=== PATIENT | male | born 1975 | race Caucasian/White ===

== ENCOUNTER 2024-12-23 20:58 | Inpatient (IN) | payer OTHER, SELFPAY ==
[2024-12-23 22:34] VITALS: BP 105/64; PULSE 91; RESP 18; TEMP 36.4; O2SAT 97
--- NOTE | 2024-12-24 00:24 | PC.ADMIT ---
Patient is a direct admit from [facility] for SI with a hx of MDD. He presents disheveled and malodorous. He is calm and cooperative with admission. He is delayed in answering questions and stares straight ahead while thinking. Skin check performed, no contraband, his skin is intact with PVD. He reports living at [facility] since 2021. He reports feeling kind of safe there and spends his days trying to sleep. He states he has taken the bus before but not in a while. He reports being homeless since 2008. He is currently unemployed and has not worked in years. His last job was at the [employer] in 2019. He reports not having any family or friends he speaks too. His father lives in [facility] and he hasnt spoken to him in years. There is no event that brought on his feeling of suicide, his thoughts have just been getting worse. He has a hx of SI and has taken drain-o in the past. He states he does not currently have a plan. His last IPLOC was at [facility] in October where he spent one month for SI. That was also the last time he took any medications. He is open to this experience and states he is willing to go to groups and take prescribed medications. He reports a history of medical and physical restraints but is vague and states that it was a long time ago. He is safe on unit, signed a CV and is on 15 minute checks.
[2024-12-24 08:00] VITALS: BP 97/65; PULSE 80; TEMP 36.3; O2SAT 99
[2024-12-24 08:12] LABS: Estimated Average Glucose 94 mg/dL; Hemoglobin A1C 126.5658 umol/L; Hemoglobin A1c % 4.9 % (<6.0); Total Hemoglobin (HGBA1C) 4288.0963 umol/L
[2024-12-24 08:23] LABS: Cholesterol 234 mg/dL (<200); HDL Cholesterol 41 mg/dL (>40); LDL Cholesterol Calculated 166 mg/dL (<100); Triglycerides 138 mg/dL (<150)
[2024-12-24 08:40] LABS: Free T4 (Free Thyroxine) 1.06 ng/dL (0.71-1.85); Thyroid Stimulating Hormone 2.76 uIU/mL (0.32-4.0)
[2024-12-24 08:52] LABS: Folate 2.5 ng/mL (> or = 4.0); Vitamin B12 571 pg/mL (200-900)
--- NOTE | 2024-12-24 09:27 | P.HPPS_ITS ---
HPI Date of Service: 12/24/24 Chief Complaint: Bipolar II disorder,Current episode Depressed Sources of Information: patient interviewed, chart reviewed and crisis/core team assessment reviewed HPI Subjective Notes: Mathis Warning and Conditional Voluntary Healthcare Proxy: No Guardianship: No Medical Problems Affecting Mental Status: No Narrative: Patient found lying supine on his bed. He notes that he has been experiencing nausea since after he had breakfast this morning and therefore does not want to engaged in a full interview and wants to rest until tomorrow. He denies abdominal pain or bowel changes. He denies hypomania or leti episodes. He denies SI/HI/AVH. He plans to attend groups today. He notes that he was on Latuda 120 mg daily and oxcarbazepine 300 mg daily until he was discharged at [facility] in October 2024. He notes that he stopped taking the medications without a reason. Reports history of anxiety, depression, and bipolar disorder. He denies alcohol or drug use. Below his collateral from nursing admission: Patient is a direct admit from [facility] for SI with a hx of MDD. He presents disheveled and malodorous. He is calm and cooperative with admission. He is delayed in answering questions and stares straight ahead while thinking. Skin check performed, no contraband, his skin is intact with PVD. He reports living at [facility] since 2021. He reports feeling kind of safe there and spends his days trying to sleep. He states he has taken the bus before but not in a while. He reports being homeless since 2008. He is currently unemployed and has not worked in years. His last job was at the [employer] in 2019. He reports not having any family or friends he speaks too. His father lives in [facility] and he hasnt spoken to him in years. There is no event that brought on his feeling of suicide, his thoughts have just been getting worse. He has a hx of SI and has taken drain-o in the past. He states he does not currently have a plan. His last IPLOC was at [facility] in October where he spent one month for SI. That was also the last time he took any medications. He is open to this experience and states he is willing to go to groups and take prescribed medications. He reports a history of medical and physical restraints but is vague and states that it was a long time ago. He is safe on unit, signed a CV and is on 15 minute checks. Patient seen at 11:00 on 12/24/2024. Past Psychiatric History: History of anxiety, depression, and bipolar Discharged from [facility] in October 2024 Was on Latuda 120 mg daily and oxcarbazepine 300 mg daily upon discharge at [facility] Medical Evaluation Reviewed: Yes [facility] Medical History (Updated 12/24/24 @ 13:11 by Varinder Anderson CNP) Obesity LUIS (obstructive sleep apnea) HLD (hyperlipidemia) HTN (hypertension) CVA (cerebral vascular accident) Substance History: Denies alcohol or drug use Diagnostics Vital Signs (24Hr): Vital Signs - 24 hr 12/23/24 22:34 Temperature 97.6 F Pulse Rate 91 Respiratory Rate 18 Blood Pressure 105/64 Pulse Oximetry 97 Labs 12/24/24 13:48 Labs: Laboratory Results - last 48 hr 12/24/24 07:54 Estimat Average Glucose 94 Hemoglobin A1c % 4.9 Triglycerides 138 Cholesterol 234 H LDL Cholesterol, Calc 166 H HDL Cholesterol 41 Vitamin B12 571 Folate 2.5 L TSH 2.76 Free T4 1.06 Meds/Allergies Allergies Allergies Allergy/AdvReac Type Severity Reaction Status Date / Time pumpkin Allergy Unknown Unknown Verified 12/24/24 12:26 Mental Status Exam Mental Status Exam Narrative: Mental Status Exam Narrative: Appearance: Casually dressed in hospital gown, hair is disheveled Behavior: Calm and cooperative throughout the brief interview. Eye contact is appropriate, and there are no signs of psychomotor agitation; however, there signs of psychomotor retardation due to sluggish thinking and speech Speech: Sluggish Thought process logical Thought content: No self-harming thoughts Mood: Depressed Affect: Blunted, mood congruent SI:denies HI:denies VH/AH:none Delusions: None Insight/judgment: Fair insight and judgment Memory/cog: Alert, oriented x 4. grossly intact to conversational testing Assessment & Plan Assessment & Plan (1) Bipolar disorder: Status: Acute Code(s): F31.9 - Bipolar disorder, unspecified (2) Nausea: Status: Acute Code(s): R11.0 - Nausea Plan Patient found lying supine on his bed. He notes that he has been experiencing nausea since after he had breakfast this morning and therefore does not want to engaged in a full interview and wants to rest until tomorrow. He denies abdominal pain or bowel changes. He denies hypomania or leti episodes. He denies SI/HI/AVH. He plans to attend groups later today. He notes that he was on Latuda 120 mg daily and oxcarbazepine 300 mg daily until he was discharged at [facility] in October 2024. He notes that he stopped taking the medications without a reason. Reports history of anxiety, depression, and bipolar disorder. He denies alcohol or drug use. Below his collateral from nursing admission: Patient is a direct admit from [facility] for SI with a hx of MDD. He presents disheveled and malodorous. He is calm and cooperative with admission. He is delayed in answering questions and stares straight ahead while thinking. Skin check performed, no contraband, his skin is intact with PVD. He reports living at [facility] since 2021. He reports feeling kind of safe there and spends his days trying to sleep. He states he has taken the bus before but not in a while. He reports being homeless since 2008. He is currently unemployed and has not worked in years. His last job was at the [employer] in 2019. He reports not having any family or friends he speaks too. His father lives in [facility] and he hasnt spoken to him in years. There is no event that brought on his feeling of suicide, his thoughts have just been getting worse. He has a hx of SI and has taken drain-o in the past. He states he does not currently have a plan. His last IPLOC was at [facility] in October where he spent one month for SI. That was also the last time he took any medications. He is open to this experience and states he is willing to go to groups and take prescribed medications. He reports a history of medical and physical restraints but is vague and states that it was a long time ago. He is safe on unit, signed a CV and is on 15 minute checks. Formulation/Clinical reasoning: Patient's SI is likely related to severe depressive symptoms from untreated bipolar disorder. Psychomotor retardation due to sluggish thinking and speech also account for the patient's depressive state. He denies hypomania or leti symptoms. He stopped taking Latuda and oxcarbazepine in October 2024 with no apparent reason. Will start Latuda the 20 mg daily to target bipolar symptoms. Admit to M5. CV 15 minutes check. Diagnostics as needed. Collateral contact. Continue remainder of regime. Encouraged full milieu. Discharge planning. Latuda 20 mg daily ordered for bipolar symptoms and Zofran ordered for nausea; advised to take as prescribed. Instructed on the risks, benefits, and potential adverse reactions of the medication. Verbalized understanding and agreed with the plan. Patient educated on: diagnosis, medication risk/benefits and therapeutic strategies Reason for continued inpatient stay Substantial Risk for: rapid decompensation Statement Statement: I have reviewed the history and physical and performed a pertinent examination on my patient. No changes have occurred unless specified. If the History and Physical was not performed prior to admission, the Hospitalist's service will be consulted for completing the admission physical. Time Spent With Patient Time: Total time managing care of this patient today ____ minutes.
--- NOTE | 2024-12-24 11:28 | PM.IMHP ---
History of Present Illness Date of Service: 12/24/24 Attending physician on admission: Sal Veras Chief Complaint: Medical H&P 49 year old male with PMH of Bipolar DO, MDD, Dysthymia, unspecified psychotic disorder, generalized anxiety disorder and history of suicide ideation with prior attempts. He has also had multiple prior inpatient hospitalization. 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 He reports a history of gastric sleeve surgery. He currently resides at [facility], followed by friends with homeless. Who reported that he was not eating for 3 days worsening depression and suicidal ideation without a plan. In the ED his renal function was normal, TSH was normal. He had a abnormal urine, was prescribed Keflex 500 3 times a day for a UTI. It was medically cleared for admission. On exam he has no physical complaints or concerns. He denies any dysuria. Seen lying in bed alert and cooperative with exam. Review of Systems Review of Systems: Denies any shortness of breath, chest pain, dizziness, lightheadedness, abdominal pain or discomfort, nausea vomiting or diarrhea. Denies dysuria. [facility] Medical History (Updated 12/24/24 @ 12:12 by Lucía Casas DNP) Obesity LUIS (obstructive sleep apnea) HLD (hyperlipidemia) HTN (hypertension) CVA (cerebral vascular accident) Social History Household Members: None and Other Household Members Other:: homeless usp Housing: Homeless Do you presently have visiting nurse or other home services: No Patient Tobacco Use Status: Never used Tobacco Smoked in Last 30 Days: No Patient Interested in Nicotine Replacement: No Patient Given Instructions on How to Stop Smoking: No Second Hand Smoke Exposure: Yes Currently Displaying Signs/Symptoms of Drug Intoxication Withdrawal: No Have you been hit, kicked, punched, or otherwise hurt by someone within the past year? If so, by whom?: No Do you feel safe in your current relationship?: No Current Relationship Is there a partner from a previous relationship who is making you feel unsafe now?: No Are you made to feel afraid or neglected: No Advance Directives: No Advance Directives Information Provided: Yes Do you have thoughts of harming others: None Do you have a plan to hurt others: No Plan Recently lost weight without trying: No Eating poorly because of decreased appetite: No Nutrition Risks: No Nutritional Risk Poor oral hygiene: No Meds Allergies Allergy/AdvReac Type Severity Reaction Status Date / Time pumpkin Allergy Unknown Unknown Verified 12/24/24 12:26 Active Medications: Current Medications Acetaminophen (Acetaminophen 325 Mg Tablet) 650 mg PO Q6H PRN PRN Reason: Headache/Pain, Scale 1-10 Al Hydroxide/Mg Hydroxide (Magnesium Hydrox/Alum Hydrox 30 Ml Oral.Susp) 30 ml PO Q6H PRN PRN Reason: Heartburn/Nausea Hydroxyzine HCl (Hydroxyzine Hcl 25 Mg Tablet) 25 mg PO Q6H PRN PRN Reason: mild anxiety Magnesium Hydroxide (Milk Of Magnesia 30 Ml Oral.Susp) 30 ml PO DAILY PRN PRN Reason: Constipation Nicotine Polacrilex (Nicotine Polacrilex 2 Mg Gum) 4 mg BUCCAL Q2H PRN PRN Reason: Nicotine Cravings Trazodone HCl (Trazodone Hcl 50 Mg Tablet) 50 mg PO BEDTIME MRX1 PRN PRN Reason: Insomnia Physical Exam Vital Signs and Narrative: Vital Signs: Last Vital Signs Temp 97.3 F 12/24/24 08:00 Pulse 80 12/24/24 08:00 Resp 18 12/23/24 22:34 BP 97/65 12/24/24 08:00 Pulse Ox 99 12/24/24 08:00 O2 Del Method Room Air 12/24/24 08:00 Alert and oriented X3, able to give good history. Neuro: CN II-X11 intact, no deficits, visual acuity intact. EYES: PERRLA, EOM intact ENT: hearing intact, lips moist Cardiac: S1 S2 RRR, no edema in Lower ext Pulmonary: lungs clear to auscultation, No increased WOB. Abdominal: BS active in all 4 quadrants, no guarding, tenderness, rebounding, + obese abdomen. MSK: Strength 5/5 upper and lower extremities. Moves all extremities. : no CVA tenderness no bladder distension Extremities: no edema in lower extremities Psych: Calm and cooperative. Eye contact is appropriate, and there is no evidence of neurological comprimise. Skin: Warm and dry, Intact Results Labs Labs: Laboratory Results - last 24 hr 12/24/24 07:54 Estimat Average Glucose 94 Hemoglobin A1c % 4.9 Triglycerides 138 Cholesterol 234 H LDL Cholesterol, Calc 166 H HDL Cholesterol 41 Vitamin B12 571 Folate 2.5 L TSH 2.76 Free T4 1.06 Assessment and Plan (1) UTI (urinary tract infection): Status: Acute Plan Bipolar DO/MDD/Dysthymia/unspecified psychotic disorder/ELISABETH and history of suicide ideation with prior attempts Treatment per psychiatric team. UTI Diagnosed at [facility]-DC on Keflex 500 mgs TID for 5 days Encourage fluid intake. HLD/HTN/History of CVA/LUIS Last seen by Neurology in 09/2022-Unremarkable MRI from 10/26/2022 Recommend aspirin 81 mg daily as well as atorvastatin 20 mgs per previous neurology record from 09/2022 BP is stable 97/65 Quality Stroke Does the patient have a stroke diagnosis?: Yes Reason for No Anti-thrombotic by Day Two: N/A - Med Ordered VTE Prior VTE?: No VTE Risk Level:: Medical - low VTE Device Contraindication: Treatment Not Indicated VTE Drug Contraindication: N/A - Med Ordered
[2024-12-24] MEDS: Ondansetron ODT 4 MG TAB.RAPDIS TRANSLINGU (12:05)
[2024-12-24] MEDS: cephALEXin 500 MG CAPSULE PO ×2 (12:38→21:12)
[2024-12-24 14:11] LABS: Estimated Glomerular Filt Rate 51
[2024-12-24 20:00] VITALS: BP 135/70; PULSE 80; RESP 16; TEMP 36.3; O2SAT 100
[2024-12-24] MEDS: Lurasidone HCl 20 MG TABLET PO (21:13)
[2024-12-24] MEDS: Atorvastatin Calcium 20 MG TABLET PO (21:13)
[2024-12-25] MEDS: cephALEXin 500 MG CAPSULE PO ×3 (05:36→20:20)
[2024-12-25 08:00] VITALS: BP 115/81; PULSE 75; TEMP 36.4; O2SAT 97
[2024-12-25] MEDS: Aspirin Enteric Coated 81 MG TABLET.DR PO (09:07)
[2024-12-25] MEDS: Folic Acid 1 MG TABLET PO (09:07)
--- NOTE | 2024-12-25 09:58 | P.PNPSI_ITS ---
Subjective Subjective Date of Service: 12/25/24 Reason For Visit: Bipolar II disorder,Current episode Depressed Interim History: Kamar is awake, alert and in bed. His primary nurse reports he has poverty of thought when she was talking with him. Pt answers direct questions, he does not initiate discussion. He has good eye contact and reports no symptoms of concern currently. Medication Compliance: Yes Side effects from medications: No Attending Groups: No Review of Systems Acute medical concerns: No Medical Review of Systems: unchanged Review of Systems Review of Systems Denies Mental Status Exam Mental Status Exam Patient Appearance: Fatigued Patient Orientation: Person, Place, Time and Situation Level of Consciousness: Alert Patient Behavior: Appropriate, Guarded, Cooperative, Distractible and Good Eye Contact Mood Description: Withdrawn Affect Description: Withdrawn Patient Cognition Impaired: No Ability to Follow Directions: Fair Speech Pattern: Spontaneous Speech Memory Description: Intact Hallucinations: None Delusions: Not Present Thought Process: Distracted and Rumination Thought Content: positive for Circumstantial and positive for Perseveration Depressive Symptoms: Increased Fatigue and Loss of Energy Judgement: Fair Diagnostics Vital Signs (24Hr): Vital Signs - 24 hr 12/24/24 20:00 12/25/24 08:00 Temperature 97.3 F 97.6 F Pulse Rate 80 75 Respiratory Rate 16 Blood Pressure 135/70 115/81 Pulse Oximetry 100 97 Oxygen Delivery Method Room Air Room Air Labs 12/24/24 13:48 Labs: Laboratory Results - last 48 hr 12/24/24 12/24/24 07:54 13:48 Creatinine 1.48 H Estim Creat Clear Calc TNP Estimated GFR 51 Estimat Average Glucose 94 Hemoglobin A1c % 4.9 Triglycerides 138 Cholesterol 234 H LDL Cholesterol, Calc 166 H HDL Cholesterol 41 Vitamin B12 571 Folate 2.5 L TSH 2.76 Free T4 1.06 Medications Medications Current Medications Acetaminophen (Acetaminophen 325 Mg Tablet) 650 mg PO Q6H PRN PRN Reason: Headache/Pain, Scale 1-10 Al Hydroxide/Mg Hydroxide (Magnesium Hydrox/Alum Hydrox 30 Ml Oral.Susp) 30 ml PO Q6H PRN PRN Reason: Heartburn/Nausea Aspirin (Aspirin Enteric Coated 81 Mg Tablet.Dr) 81 mg PO DAILY [facility] Last Admin: 12/25/24 09:07 Dose: 81 mg Atorvastatin Calcium (Atorvastatin Calcium 20 Mg Tablet) 20 mg PO BEDTIME JENNIFER Last Admin: 12/24/24 21:13 Dose: 20 mg Cephalexin HCl (Cephalexin 500 Mg Capsule) 500 mg PO Q8H [facility] Stop: 12/29/24 12:14 Last Admin: 12/25/24 05:36 Dose: 500 mg Folic Acid (Folic Acid 1 Mg Tablet) 1 mg PO DAILY [facility] Last Admin: 12/25/24 09:07 Dose: 1 mg Hydroxyzine HCl (Hydroxyzine Hcl 25 Mg Tablet) 25 mg PO Q6H PRN PRN Reason: mild anxiety Lurasidone HCl (Lurasidone Hcl 20 Mg Tablet) 20 mg PO BEDTIME [facility] Last Admin: 12/24/24 21:13 Dose: 20 mg Magnesium Hydroxide (Milk Of Magnesia 30 Ml Oral.Susp) 30 ml PO DAILY PRN PRN Reason: Constipation Nicotine Polacrilex (Nicotine Polacrilex 2 Mg Gum) 4 mg BUCCAL Q2H PRN PRN Reason: Nicotine Cravings Ondansetron HCl (Ondansetron Odt 4 Mg Tab.Rapdis) 4 mg TRANSLINGU Q8H PRN PRN Reason: Nausea and Vomiting Stop: 12/28/24 23:59 Last Admin: 12/24/24 12:05 Dose: 4 mg Trazodone HCl (Trazodone Hcl 50 Mg Tablet) 50 mg PO BEDTIME MRX1 PRN PRN Reason: Insomnia Allergies Allergies Allergy/AdvReac Type Severity Reaction Status Date / Time pumpkin Allergy Unknown Unknown Verified 12/24/24 12:26 Assessment & Plan Assessment & Plan (1) Bipolar disorder: Status: Acute Code(s): F31.9 - Bipolar disorder, unspecified (2) Nausea: Status: Acute Code(s): R11.0 - Nausea Plan Patient found lying supine on his bed. He notes that he has been experiencing nausea since after he had breakfast this morning and therefore does not want to engaged in a full interview and wants to rest until tomorrow. He denies abdominal pain or bowel changes. He denies hypomania or leti episodes. He denies SI/HI/AVH. He plans to attend groups later today. He notes that he was on Latuda 120 mg daily and oxcarbazepine 300 mg daily until he was discharged at [facility] in October 2024. He notes that he stopped taking the medications without a reason. Reports history of anxiety, depression, and bipolar disorder. He denies alcohol or drug use. Below his collateral from nursing admission: Patient is a direct admit from [facility] for SI with a hx of MDD. He presents disheveled and malodorous. He is calm and cooperative with admission. He is delayed in answering questions and stares straight ahead while thinking. Skin check performed, no contraband, his skin is intact with PVD. He reports living at [facility] since 2021. He reports feeling kind of safe there and spends his days trying to sleep. He states he has taken the bus before but not in a while. He reports being homeless since 2008. He is currently unemployed and has not worked in years. His last job was at the [employer] in 2019. He reports not having any family or friends he speaks too. His father lives in [facility] and he hasnt spoken to him in years. There is no event that brought on his feeling of suicide, his thoughts have just been getting worse. He has a hx of SI and has taken drain-o in the past. He states he does not currently have a plan. His last IPLOC was at [facility] in October where he spent one month for SI. That was also the last time he took any medications. He is open to this experience and states he is willing to go to groups and take prescribed medications. He reports a history of medical and physical restraints but is vague and states that it was a long time ago. He is safe on unit, signed a CV and is on 15 minute checks. Formulation/Clinical reasoning: Patient's SI is likely related to severe depressive symptoms from untreated bipolar disorder. Psychomotor retardation due to sluggish thinking and speech also account for the patient's depressive state. He denies hypomania or leti symptoms. He stopped taking Latuda and oxcarbazepine in October 2024 with no apparent reason. Will start Latuda the 20 mg daily to target bipolar symptoms. Admit to M5. CV 15 minutes check. Diagnostics as needed. Collateral contact. Continue remainder of regime. Encouraged full milieu. Discharge planning. Latuda 20 mg daily ordered for bipolar symptoms and Zofran ordered for nausea; advised to take as prescribed. Instructed on the risks, benefits, and potential adverse reactions of the medication. Verbalized understanding and agreed with the plan. 12/25: Continue tx. Reason for continued inpatient stay Substantial Risk for: rapid decompensation Time Spent With Patient Time: Total time managing care of this patient today ____ minutes.
[2024-12-25 20:00] VITALS: BP 110/69; PULSE 71; RESP 16; TEMP 37.1; O2SAT 96
[2024-12-25] MEDS: Atorvastatin Calcium 20 MG TABLET PO (20:20)
[2024-12-25] MEDS: Lurasidone HCl 20 MG TABLET PO (20:20)
[2024-12-26] MEDS: cephALEXin 500 MG CAPSULE PO ×3 (05:20→20:44)
[2024-12-26 08:00] VITALS: BP 115/77; PULSE 80; TEMP 36.4; O2SAT 97
[2024-12-26] MEDS: Folic Acid 1 MG TABLET PO (09:07)
[2024-12-26] MEDS: Aspirin Enteric Coated 81 MG TABLET.DR PO (09:07)
--- NOTE | 2024-12-26 14:39 | HO.PSYCHPN ---
Subjective Subjective Date of Service: 12/26/24 Reason For Visit: Bipolar II disorder,Current episode Depressed Interim History: Met with patient; discussed with team Patient remains isolative, staying in bed and keeping himself most of the time. Patient has flat affect; says he has no emotions and does not feel much good or bad; denies depression but clearly depressed Mental Status Exam Mental Status Exam Narrative: Pt is alert and oriented; behavior is isolative, lying in bed; willing to engage and polite on approach, but otherwise appears amotivational; patient is not in distress; dressed in hospital attire, unkempt; mood is described as all right and affect blunted; eye contact appropriate; Speech is a little monotone; normal rate and volume; significant psychomotor retardation present; thought process is organized and goal directed; Thought content vacuous? Does not disclose much; no paranoid ideations expressed; denies any SI/HI. Denies AVH; does not look particularly internally preoccupied. Patients insight and judgment impaired. Diagnostics Vital Signs (24Hr): Vital Signs - 24 hr 12/25/24 20:00 12/26/24 08:00 Temperature 98.7 F 97.5 F Pulse Rate 71 80 Respiratory Rate 16 Blood Pressure 110/69 115/77 Pulse Oximetry 96 97 Oxygen Delivery Method Room Air Room Air Labs 12/24/24 13:48 Medications Medications Current Medications Acetaminophen (Acetaminophen 325 Mg Tablet) 650 mg PO Q6H PRN PRN Reason: Headache/Pain, Scale 1-10 Al Hydroxide/Mg Hydroxide (Magnesium Hydrox/Alum Hydrox 30 Ml Oral.Susp) 30 ml PO Q6H PRN PRN Reason: Heartburn/Nausea Aspirin (Aspirin Enteric Coated 81 Mg Tablet.) 81 mg PO DAILY COUNT INCLUDES THE [facility] Last Admin: 12/26/24 09:07 Dose: 81 mg Atorvastatin Calcium (Atorvastatin Calcium 20 Mg Tablet) 20 mg PO BEDTIME COUNT INCLUDES THE [facility] Last Admin: 12/25/24 20:20 Dose: 20 mg Cephalexin HCl (Cephalexin 500 Mg Capsule) 500 mg PO Q8H COUNT INCLUDES THE [facility] Stop: 12/29/24 12:14 Last Admin: 12/26/24 12:31 Dose: 500 mg Folic Acid (Folic Acid 1 Mg Tablet) 1 mg PO DAILY COUNT INCLUDES THE [facility] Last Admin: 12/26/24 09:07 Dose: 1 mg Hydroxyzine HCl (Hydroxyzine Hcl 25 Mg Tablet) 25 mg PO Q6H PRN PRN Reason: mild anxiety Lurasidone HCl (Lurasidone Hcl 20 Mg Tablet) 20 mg PO BEDTIME [facility] Last Admin: 12/25/24 20:20 Dose: 20 mg Magnesium Hydroxide (Milk Of Magnesia 30 Ml Oral.Susp) 30 ml PO DAILY PRN PRN Reason: Constipation Nicotine Polacrilex (Nicotine Polacrilex 2 Mg Gum) 4 mg BUCCAL Q2H PRN PRN Reason: Nicotine Cravings Ondansetron HCl (Ondansetron Odt 4 Mg Tab.Rapdis) 4 mg TRANSLINGU Q8H PRN PRN Reason: Nausea and Vomiting Stop: 12/28/24 23:59 Last Admin: 12/24/24 12:05 Dose: 4 mg Trazodone HCl (Trazodone Hcl 50 Mg Tablet) 50 mg PO BEDTIME [id number] PRN PRN Reason: Insomnia Allergies Allergies Allergy/AdvReac Type Severity Reaction Status Date / Time pumpkin Allergy Unknown Unknown Verified 12/24/24 12:26 Assessment & Plan Assessment & Plan (1) Bipolar disorder: Status: Acute Code(s): F31.9 - Bipolar disorder, unspecified (2) Nausea: Status: Acute Code(s): R11.0 - Nausea Plan Patient found lying supine on his bed. He notes that he has been experiencing nausea since after he had breakfast this morning and therefore does not want to engaged in a full interview and wants to rest until tomorrow. He denies abdominal pain or bowel changes. He denies hypomania or leti episodes. He denies SI/HI/AVH. He plans to attend groups later today. He notes that he was on Latuda 120 mg daily and oxcarbazepine 300 mg daily until he was discharged at [facility] in October 2024. He notes that he stopped taking the medications without a reason. Reports history of anxiety, depression, and bipolar disorder. He denies alcohol or drug use. Below his collateral from nursing admission: Patient is a direct admit from [facility] for SI with a hx of MDD. He presents disheveled and malodorous. He is calm and cooperative with admission. He is delayed in answering questions and stares straight ahead while thinking. Skin check performed, no contraband, his skin is intact with PVD. He reports living at [facility] since 2021. He reports feeling kind of safe there and spends his days trying to sleep. He states he has taken the bus before but not in a while. He reports being homeless since 2008. He is currently unemployed and has not worked in years. His last job was at the [employer] in 2019. He reports not having any family or friends he speaks too. His father lives in [facility] and he hasnt spoken to him in years. There is no event that brought on his feeling of suicide, his thoughts have just been getting worse. He has a hx of SI and has taken drain-o in the past. He states he does not currently have a plan. His last IPLOC was at [place] in October where he spent one month for SI. That was also the last time he took any medications. He is open to this experience and states he is willing to go to groups and take prescribed medications. He reports a history of medical and physical restraints but is vague and states that it was a long time ago. He is safe on unit, signed a CV and is on 15 minute checks. Formulation/Clinical reasoning: Patient's SI is likely related to severe depressive symptoms from untreated bipolar disorder. Psychomotor retardation due to sluggish thinking and speech also account for the patient's depressive state. He denies hypomania or leti symptoms. He stopped taking Latuda and oxcarbazepine in October 2024 with no apparent reason. Will start Latuda the 20 mg daily to target bipolar symptoms. Hospital course: Latuda 20 mg daily ordered for bipolar symptoms and Zofran ordered for nausea; advised to take as prescribed. Instructed on the risks, benefits, and potential adverse reactions of the medication. Verbalized understanding and agreed with the plan. 12/26: Patient remains isolative, staying in bed and keeping himself most of the time. Patient has flat affect and appears abulic and though denies depression says he has no emotions either way. -increase Latuda to 40 mg for bipolar depression -will review medication history; ECT could be a consideration Plan: Admit to M5. CV 15 minutes check. Increase Latuda to 40 mg for continued bipolar depression Diagnostics as needed. Collateral contact. Continue remainder of regime. Encouraged full milieu. Discharge planning. Patient educated on: diagnosis and medication risk/benefits Informed Consent: understands and further education needed Reason for continued inpatient stay Substantial Risk for: inability to function Time Spent With Patient Time: Total time managing care of this patient today ____ minutes.
[2024-12-26] MEDS: Lurasidone HCl 40 MG TABLET PO (17:13)
[2024-12-26 20:00] VITALS: BP 125/70; PULSE 82; RESP 18; TEMP 36.6; O2SAT 98
[2024-12-26] MEDS: Atorvastatin Calcium 20 MG TABLET PO (20:45)
[2024-12-27] MEDS: cephALEXin 500 MG CAPSULE PO ×3 (05:29→20:21)
[2024-12-27 07:58] VITALS: BP 138/66; PULSE 68; TEMP 36.8; O2SAT 98
[2024-12-27] MEDS: Aspirin Enteric Coated 81 MG TABLET.DR PO (08:48)
[2024-12-27] MEDS: Folic Acid 1 MG TABLET PO (08:48)
--- NOTE | 2024-12-27 09:39 | HO.PSYCHPN ---
Subjective Subjective Date of Service: 12/27/24 Reason For Visit: Bipolar II disorder,Current episode Depressed Interim History: met with patient; discussed with team Patient pushed himself to go out in the milieu today, which is a 1st during this admission. Said he was trying to do what he can to push back against depression. Patient and director underwriter sales discussed history of illness. He agrees that he is depressed but he says he does not feel sad. He reiterated that does not have feelings either way. However once starting to talk about history of treatment, patient got quite irritable and frustrated, and agreed that he is now feeling something. He reviewed multiple medication trial failures. Patient said at several points in the past he has just stopped taking medications, as recently with Latuda. In his frustration he yelled out I want to ... I just want to be ... And then climbed back in bed. That said, he said it was fine for director underwriter sales to manage or change his medication regimen as director underwriter sales thought best and did not need to be consulted prior. Discussed history of manic episodes: Patient had a manic episode in 2022 which lasted for over a month during which time he had no sleep, excessive energy, made lots of bad choices... With racing mind and hyperverbal Failed medication trials: ECT: 7 sessions and then patient became delirious Depakote Zoloft, Paxil, Effexor Wellbutrin Lamictal 400 mg; said it helped initially for awhile but then seemed to stop helping Boyds: Does not remember Latuda 120 mg says it possibly helped Mental Status Exam Mental Status Exam Narrative: Pt is alert and oriented; behavior is mostly isolative, lying in bed; willing to engage but becomes irritable; patient is not in distress; dressed in hospital attire, unkempt; mood is described as I just want to and affect constricted; eye contact appropriate; Speech is a little monotone; normal rate and volume; significant psychomotor retardation present; thought process is organized and goal directed; Thought content despair of ever getting better; no paranoid ideations expressed; denies any SI/HI. Denies AVH; does not look particularly internally preoccupied. Patients insight and judgment impaired. Diagnostics Vital Signs (24Hr): Vital Signs - 24 hr 12/26/24 20:00 12/27/24 07:58 Temperature 98 F 98.2 F Pulse Rate 82 68 Respiratory Rate 18 Blood Pressure 125/70 138/66 Pulse Oximetry 98 98 Oxygen Delivery Method Room Air Room Air Labs 12/24/24 13:48 Medications Medications Current Medications Acetaminophen (Acetaminophen 325 Mg Tablet) 650 mg PO Q6H PRN PRN Reason: Headache/Pain, Scale 1-10 Al Hydroxide/Mg Hydroxide (Magnesium Hydrox/Alum Hydrox 30 Ml Oral.Susp) 30 ml PO Q6H PRN PRN Reason: Heartburn/Nausea Aspirin (Aspirin Enteric Coated 81 Mg Tablet.Dr) 81 mg PO DAILY [facility] Last Admin: 12/27/24 08:48 Dose: 81 mg Atorvastatin Calcium (Atorvastatin Calcium 20 Mg Tablet) 20 mg PO BEDTIME [facility] Last Admin: 12/26/24 20:45 Dose: 20 mg Cephalexin HCl (Cephalexin 500 Mg Capsule) 500 mg PO Q8H [facility] Stop: 12/29/24 12:14 Last Admin: 12/27/24 05:29 Dose: 500 mg Folic Acid (Folic Acid 1 Mg Tablet) 1 mg PO DAILY [facility] Last Admin: 12/27/24 08:48 Dose: 1 mg Hydroxyzine HCl (Hydroxyzine Hcl 25 Mg Tablet) 25 mg PO Q6H PRN PRN Reason: mild anxiety Lurasidone HCl (Lurasidone Hcl 40 Mg Tablet) 40 mg PO DAILY@1700 [facility] Last Admin: 12/26/24 17:13 Dose: 40 mg Magnesium Hydroxide (Milk Of Magnesia 30 Ml Oral.Susp) 30 ml PO DAILY PRN PRN Reason: Constipation Nicotine Polacrilex (Nicotine Polacrilex 2 Mg Gum) 4 mg BUCCAL Q2H PRN PRN Reason: Nicotine Cravings Ondansetron HCl (Ondansetron Odt 4 Mg Tab.Rapdis) 4 mg TRANSLINGU Q8H PRN PRN Reason: Nausea and Vomiting Stop: 12/28/24 23:59 Last Admin: 12/24/24 12:05 Dose: 4 mg Trazodone HCl (Trazodone Hcl 50 Mg Tablet) 50 mg PO BEDTIME [id number] PRN PRN Reason: Insomnia Allergies Allergies Allergy/AdvReac Type Severity Reaction Status Date / Time pumpkin Allergy Unknown Unknown Verified 12/24/24 12:26 Assessment & Plan Assessment & Plan (1) Bipolar disorder: Status: Acute Code(s): F31.9 - Bipolar disorder, unspecified (2) Nausea: Status: Acute Code(s): R11.0 - Nausea Plan HPI: Patient is a direct admit from [facility] for SI with a hx of MDD. He presents disheveled and malodorous. He is calm and cooperative with admission. He is delayed in answering questions and stares straight ahead while thinking. Skin check performed, no contraband, his skin is intact with PVD. He reports living at [facility] since 2021. He reports feeling kind of safe there and spends his days trying to sleep. He states he has taken the bus before but not in a while. He reports being homeless since 2008. He is currently unemployed and has not worked in years. His last job was at the [employer] in 2019. He reports not having any family or friends he speaks too. His father lives in [facility] and he hasnt spoken to him in years. There is no event that brought on his feeling of suicide, his thoughts have just been getting worse. He has a hx of SI and has taken drain-o in the past. He states he does not currently have a plan. His last IPLOC was at [place] in October where he spent one month for SI. That was also the last time he took any medications. He is open to this experience and states he is willing to go to groups and take prescribed medications. He reports a history of medical and physical restraints but is vague and states that it was a long time ago. He is safe on unit, signed a CV and is on 15 minute checks. He denies SI/HI/AVH. He plans to attend groups later today. He notes that he was on Latuda 120 mg daily and oxcarbazepine 300 mg daily until he was discharged at [facility] in October 2024. He notes that he stopped taking the medications without a reason. Reports history of anxiety, depression, and bipolar disorder. He denies alcohol or drug use. Formulation/Clinical reasoning: Patient's SI is likely related to severe depressive symptoms from untreated bipolar disorder. Psychomotor retardation due to sluggish thinking and speech also account for the patient's depressive state. He denies recent hypomania or leti symptoms. He stopped taking Latuda and oxcarbazepine in October 2024 with no apparent reason. Will start Latuda the 20 mg daily to target bipolar symptoms. Hospital course: Latuda 20 mg daily ordered for bipolar symptoms and Zofran ordered for nausea; advised to take as prescribed. Instructed on the risks, benefits, and potential adverse reactions of the medication. Verbalized understanding and agreed with the plan. 12/26: Patient remains isolative, staying in bed and keeping himself most of the time. Patient has flat affect and appears abulic and though denies depression says he has no emotions either way. -increase Latuda to 40 mg for bipolar depression -will review medication history; ECT could be a consideration 12/27 Patient pushed himself to go out in the milieu today, which is a 1st during this admission. Said he was trying to do what he can to push back against depression. Patient and director underwriter sales discussed history of illness. He agrees that he is depressed but he says he does not feel sad. He reiterated that does not have feelings either way. However once starting to talk about history of treatment, patient got quite irritable and frustrated, and agreed that he is now feeling something. He reviewed multiple medication trial failures. Patient said at several points in the past he has just stopped taking medications, as recently with Latuda. In his frustration he yelled out I want to ... I just want to be ... And then climbed back in bed. That said, he said it was fine for director underwriter sales to manage or change his medication regimen as director underwriter sales thought best and did not need to be consulted prior. Discussed history of manic episodes: Patient had a manic episode in 2022 which lasted for over a month during which time he had no sleep, excessive energy, made lots of bad choices... With racing mind and hyperverbal Impression/clinical reasoning: Patient has bipolar depression. Numerous failed medication trials including not tolerating ECT; however seems to have had some benefit from Latuda, Lamictal and maybe even lithium and it maybe that medications are partially helpful only he thus needs several medications to be effective. Patient has not tried Vraylar, ketamine or any TCA's -will titrate Latuda back to 120 mg since patient thinks it helped -may very well restart Lamictal; however since Lamictal can take quite awhile to titrate, will also consider Vraylar which has not been tried Plan: Admit to M5. CV 15 minutes check. Increase Latuda to 40 mg for continued bipolar depression; will titrate back to 120 mg which may have helped in the past Diagnostics as needed. Collateral contact. Continue remainder of regime. Encouraged full milieu. Discharge planning. Failed medication trials: ECT: 7 sessions and then patient became delirious Depakote Zoloft, Paxil, Effexor Wellbutrin Lamictal 400 mg; said it helped initially for awhile but then seemed to stop helping Boyds: Does not remember Latuda 120 mg says it possibly helped Patient educated on: diagnosis, medication risk/benefits and ECT Informed Consent: understands Reason for continued inpatient stay Substantial Risk for: inability to function Time Spent With Patient Time: Total time managing care of this patient today ____ minutes.
[2024-12-27] MEDS: Lurasidone HCl 40 MG TABLET PO (16:59)
[2024-12-27 20:00] VITALS: BP 104/72; PULSE 75; RESP 16; TEMP 36.5; O2SAT 97
[2024-12-27] MEDS: Atorvastatin Calcium 20 MG TABLET PO (20:21)
[2024-12-28] MEDS: cephALEXin 500 MG CAPSULE PO ×3 (04:40→21:43)
[2024-12-28 08:00] VITALS: BP 119/78; PULSE 71; RESP 16; TEMP 35.7; O2SAT 96
[2024-12-28] MEDS: Aspirin Enteric Coated 81 MG TABLET.DR PO (09:03)
[2024-12-28] MEDS: Folic Acid 1 MG TABLET PO (09:04)
--- NOTE | 2024-12-28 09:34 | HO.PSYCHPN ---
Subjective Subjective Date of Service: 12/28/24 Reason For Visit: Bipolar II disorder,Current episode Depressed Subjective Notes: Conditional Voluntary Healthcare Proxy: No Guardianship: No Medical Problems Affecting Mental Status: No Interim History: Awake, alert, responsive, laying in bed. Denies sx of concern. Responsive yet without initiation of discussion. Team is talking with [facility] regarding his status he reports and this is discussed in team as well. Denies SI,HI, AH, VH today. Appears anxious/fearful when seen. Medication Compliance: Yes Side effects from medications: No Attending Groups: No Review of Systems Acute medical concerns: No Review of Systems Review of Systems Denies Mental Status Exam Mental Status Exam Patient Appearance: Appropriate Patient Orientation: Person, Place, Time and Situation Level of Consciousness: Alert Patient Behavior: Appropriate, Guarded, Cooperative, Distractible and Good Eye Contact Mood Description: Withdrawn Affect Description: Withdrawn Patient Cognition Impaired: No Ability to Follow Directions: Fair Speech Pattern: Spontaneous Speech Memory Description: Intact Hallucinations: None Delusions: Not Present Thought Process: Distracted and Rumination Thought Content: positive for Circumstantial and positive for Perseveration Depressive Symptoms: Loss of Energy Judgement: Fair Diagnostics Vital Signs (24Hr): Vital Signs - 24 hr 12/27/24 20:00 12/28/24 08:00 Temperature 97.7 F 96.2 F L Pulse Rate 75 71 Respiratory Rate 16 16 Blood Pressure 104/72 119/78 Pulse Oximetry 97 96 Oxygen Delivery Method Room Air Room Air Labs 12/24/24 13:48 Medications Medications Current Medications Acetaminophen (Acetaminophen 325 Mg Tablet) 650 mg PO Q6H PRN PRN Reason: Headache/Pain, Scale 1-10 Al Hydroxide/Mg Hydroxide (Magnesium Hydrox/Alum Hydrox 30 Ml Oral.Susp) 30 ml PO Q6H PRN PRN Reason: Heartburn/Nausea Aspirin (Aspirin Enteric Coated 81 Mg Tablet.) 81 mg PO DAILY [facility] Last Admin: 12/28/24 09:03 Dose: 81 mg Atorvastatin Calcium (Atorvastatin Calcium 20 Mg Tablet) 20 mg PO BEDTIME [facility] Last Admin: 12/27/24 20:21 Dose: 20 mg Cephalexin HCl (Cephalexin 500 Mg Capsule) 500 mg PO Q8H [facility] Stop: 12/29/24 12:14 Last Admin: 12/28/24 04:40 Dose: 500 mg Folic Acid (Folic Acid 1 Mg Tablet) 1 mg PO DAILY [facility] Last Admin: 12/28/24 09:04 Dose: 1 mg Hydroxyzine HCl (Hydroxyzine Hcl 25 Mg Tablet) 25 mg PO Q6H PRN PRN Reason: mild anxiety Lurasidone HCl (Lurasidone Hcl 40 Mg Tablet) 40 mg PO DAILY@1700 [facility] Last Admin: 12/27/24 16:59 Dose: 40 mg Magnesium Hydroxide (Milk Of Magnesia 30 Ml Oral.Susp) 30 ml PO DAILY PRN PRN Reason: Constipation Nicotine Polacrilex (Nicotine Polacrilex 2 Mg Gum) 4 mg BUCCAL Q2H PRN PRN Reason: Nicotine Cravings Ondansetron HCl (Ondansetron Odt 4 Mg Tab.Rapdis) 4 mg TRANSLINGU Q8H PRN PRN Reason: Nausea and Vomiting Stop: 12/28/24 23:59 Last Admin: 12/24/24 12:05 Dose: 4 mg Trazodone HCl (Trazodone Hcl 50 Mg Tablet) 50 mg PO BEDTIME MRX1 PRN PRN Reason: Insomnia Allergies Allergies Allergy/AdvReac Type Severity Reaction Status Date / Time pumpkin Allergy Unknown Unknown Verified 12/24/24 12:26 Assessment & Plan Assessment & Plan (1) Bipolar disorder: Status: Acute Code(s): F31.9 - Bipolar disorder, unspecified (2) Nausea: Status: Acute Code(s): R11.0 - Nausea Plan HPI: Patient is a direct admit from [facility] for SI with a hx of MDD. He presents disheveled and malodorous. He is calm and cooperative with admission. He is delayed in answering questions and stares straight ahead while thinking. Skin check performed, no contraband, his skin is intact with PVD. He reports living at [facility] since 2021. He reports feeling kind of safe there and spends his days trying to sleep. He states he has taken the bus before but not in a while. He reports being homeless since 2008. He is currently unemployed and has not worked in years. His last job was at the [employer] in 2019. He reports not having any family or friends he speaks too. His father lives in [facility] and he hasnt spoken to him in years. There is no event that brought on his feeling of suicide, his thoughts have just been getting worse. He has a hx of SI and has taken drain-o in the past. He states he does not currently have a plan. His last IPLOC was at [facility] in October where he spent one month for SI. That was also the last time he took any medications. He is open to this experience and states he is willing to go to groups and take prescribed medications. He reports a history of medical and physical restraints but is vague and states that it was a long time ago. He is safe on unit, signed a CV and is on 15 minute checks. He denies SI/HI/AVH. He plans to attend groups later today. He notes that he was on Latuda 120 mg daily and oxcarbazepine 300 mg daily until he was discharged at [facility] in October 2024. He notes that he stopped taking the medications without a reason. Reports history of anxiety, depression, and bipolar disorder. He denies alcohol or drug use. Formulation/Clinical reasoning: Patient's SI is likely related to severe depressive symptoms from untreated bipolar disorder. Psychomotor retardation due to sluggish thinking and speech also account for the patient's depressive state. He denies recent hypomania or leti symptoms. He stopped taking Latuda and oxcarbazepine in October 2024 with no apparent reason. Will start Latuda the 20 mg daily to target bipolar symptoms. Hospital course: Latuda 20 mg daily ordered for bipolar symptoms and Zofran ordered for nausea; advised to take as prescribed. Instructed on the risks, benefits, and potential adverse reactions of the medication. Verbalized understanding and agreed with the plan. 12/26: Patient remains isolative, staying in bed and keeping himself most of the time. Patient has flat affect and appears abulic and though denies depression says he has no emotions either way. -increase Latuda to 40 mg for bipolar depression -will review medication history; ECT could be a consideration 12/27 Patient pushed himself to go out in the milieu today, which is a 1st during this admission. Said he was trying to do what he can to push back against depression. Patient and engineering writer discussed history of illness. He agrees that he is depressed but he says he does not feel sad. He reiterated that does not have feelings either way. However once starting to talk about history of treatment, patient got quite irritable and frustrated, and agreed that he is now feeling something. He reviewed multiple medication trial failures. Patient said at several points in the past he has just stopped taking medications, as recently with Latuda. In his frustration he yelled out I want to ... I just want to be ... And then climbed back in bed. That said, he said it was fine for engineering writer to manage or change his medication regimen as engineering writer thought best and did not need to be consulted prior. Discussed history of manic episodes: Patient had a manic episode in 2022 which lasted for over a month during which time he had no sleep, excessive energy, made lots of bad choices... With racing mind and hyperverbal 12/28: Continue tx Impression/clinical reasoning: Patient has bipolar depression. Numerous failed medication trials including not tolerating ECT; however seems to have had some benefit from Latuda, Lamictal and maybe even lithium and it maybe that medications are partially helpful only he thus needs several medications to be effective. Patient has not tried Vraylar, ketamine or any TCA's -will titrate Latuda back to 120 mg since patient thinks it helped -may very well restart Lamictal; however since Lamictal can take quite awhile to titrate, will also consider Vraylar which has not been tried Plan: Admit to M5. CV 15 minutes check. Increase Latuda to 40 mg for continued bipolar depression; will titrate back to 120 mg which may have helped in the past Diagnostics as needed. Collateral contact. Continue remainder of regime. Encouraged full milieu. Discharge planning. Failed medication trials: ECT: 7 sessions and then patient became delirious Depakote Zoloft, Paxil, Effexor Wellbutrin Lamictal 400 mg; said it helped initially for awhile but then seemed to stop helping [place]: Does not remember Latuda 120 mg says it possibly helped Reason for continued inpatient stay Substantial Risk for: rapid decompensation Time Spent With Patient Time: Total time managing care of this patient today ____ minutes.
[2024-12-28] MEDS: Lurasidone HCl 40 MG TABLET PO (17:46)
[2024-12-28 20:00] VITALS: BP 115/71; PULSE 73; TEMP 36.4; O2SAT 99
[2024-12-28] MEDS: Atorvastatin Calcium 20 MG TABLET PO (21:42)
[2024-12-29] MEDS: cephALEXin 500 MG CAPSULE PO (05:51)
[2024-12-29 08:00] VITALS: BP 109/78; PULSE 68; TEMP 36.5; O2SAT 98
[2024-12-29] MEDS: Folic Acid 1 MG TABLET PO (08:33)
[2024-12-29] MEDS: Aspirin Enteric Coated 81 MG TABLET.DR PO (08:33)
--- NOTE | 2024-12-29 09:50 | HO.PSYCHPN ---
Subjective Subjective Date of Service: 12/29/24 Reason For Visit: Bipolar II disorder,Current episode Depressed Interim History: Pt denies SI,HI,AH,VH. Discussed titration of Latuda which he agrees with. Will increase to 60 mg daily. Team is working with pt and [facility] to assess if it is possible for him to return. Pt is seen minimally in milieu. He is spending a great deal of time in bed and is awake, alert and interactive when seen, although does not initiate discussion. He appears to be preoccupied and with paranoia. Medication Compliance: Yes Side effects from medications: No Attending Groups: Intermittent Review of Systems Acute medical concerns: No Medical Review of Systems: unchanged Review of Systems Review of Systems Pt denies Mental Status Exam Mental Status Exam Patient Appearance: Appropriate Patient Orientation: Person, Place, Time and Situation Level of Consciousness: Alert Patient Behavior: Appropriate, Guarded, Cooperative, Suspicious, Distractible and Good Eye Contact Mood Description: Withdrawn Affect Description: Withdrawn Patient Cognition Impaired: No Ability to Follow Directions: Fair Speech Pattern: Spontaneous Speech Memory Description: Intact Hallucinations: None Delusions: Paranoid Ideation Thought Process: Distracted and Rumination Thought Content: positive for Circumstantial and positive for Perseveration Depressive Symptoms: Loss of Energy Judgement: Fair Diagnostics Vital Signs (24Hr): Vital Signs - 24 hr 12/28/24 20:00 12/29/24 08:00 Temperature 97.6 F 97.7 F Pulse Rate 73 68 Blood Pressure 115/71 109/78 Pulse Oximetry 99 98 Oxygen Delivery Method Room Air Room Air Labs 12/24/24 13:48 Medications Medications Current Medications Acetaminophen (Acetaminophen 325 Mg Tablet) 650 mg PO Q6H PRN PRN Reason: Headache/Pain, Scale 1-10 Al Hydroxide/Mg Hydroxide (Magnesium Hydrox/Alum Hydrox 30 Ml Oral.Susp) 30 ml PO Q6H PRN PRN Reason: Heartburn/Nausea Aspirin (Aspirin Enteric Coated 81 Mg Tablet.) 81 mg PO DAILY [facility] Last Admin: 12/29/24 08:33 Dose: 81 mg Atorvastatin Calcium (Atorvastatin Calcium 20 Mg Tablet) 20 mg PO BEDTIME [facility] Last Admin: 12/28/24 21:42 Dose: 20 mg Cephalexin HCl (Cephalexin 500 Mg Capsule) 500 mg PO Q8H [facility] Stop: 12/29/24 12:14 Last Admin: 12/29/24 05:51 Dose: 500 mg Folic Acid (Folic Acid 1 Mg Tablet) 1 mg PO DAILY [facility] Last Admin: 12/29/24 08:33 Dose: 1 mg Hydroxyzine HCl (Hydroxyzine Hcl 25 Mg Tablet) 25 mg PO Q6H PRN PRN Reason: mild anxiety Lurasidone HCl (Lurasidone Hcl 40 Mg Tablet) 40 mg PO DAILY@1700 [facility] Last Admin: 12/28/24 17:46 Dose: 40 mg Magnesium Hydroxide (Milk Of Magnesia 30 Ml Oral.Susp) 30 ml PO DAILY PRN PRN Reason: Constipation Nicotine Polacrilex (Nicotine Polacrilex 2 Mg Gum) 4 mg BUCCAL Q2H PRN PRN Reason: Nicotine Cravings Trazodone HCl (Trazodone Hcl 50 Mg Tablet) 50 mg PO BEDTIME MRX1 PRN PRN Reason: Insomnia Allergies Allergies Allergy/AdvReac Type Severity Reaction Status Date / Time pumpkin Allergy Unknown Unknown Verified 12/24/24 12:26 Assessment & Plan Assessment & Plan (1) Bipolar disorder: Status: Acute Code(s): F31.9 - Bipolar disorder, unspecified (2) Nausea: Status: Acute Code(s): R11.0 - Nausea Plan HPI: Patient is a direct admit from [facility] for SI with a hx of MDD. He presents disheveled and malodorous. He is calm and cooperative with admission. He is delayed in answering questions and stares straight ahead while thinking. Skin check performed, no contraband, his skin is intact with PVD. He reports living at [facility] since 2021. He reports feeling kind of safe there and spends his days trying to sleep. He states he has taken the bus before but not in a while. He reports being homeless since 2008. He is currently unemployed and has not worked in years. His last job was at the [employer] in 2019. He reports not having any family or friends he speaks too. His father lives in [facility] and he hasnt spoken to him in years. There is no event that brought on his feeling of suicide, his thoughts have just been getting worse. He has a hx of SI and has taken drain-o in the past. He states he does not currently have a plan. His last IPLOC was at [facility] in October where he spent one month for SI. That was also the last time he took any medications. He is open to this experience and states he is willing to go to groups and take prescribed medications. He reports a history of medical and physical restraints but is vague and states that it was a long time ago. He is safe on unit, signed a CV and is on 15 minute checks. He denies SI/HI/AVH. He plans to attend groups later today. He notes that he was on Latuda 120 mg daily and oxcarbazepine 300 mg daily until he was discharged at in October 2024. He notes that he stopped taking the medications without a reason. Reports history of anxiety, depression, and bipolar disorder. He denies alcohol or drug use. Formulation/Clinical reasoning: Patient's SI is likely related to severe depressive symptoms from untreated bipolar disorder. Psychomotor retardation due to sluggish thinking and speech also account for the patient's depressive state. He denies recent hypomania or leti symptoms. He stopped taking Latuda and oxcarbazepine in October 2024 with no apparent reason. Will start Latuda the 20 mg daily to target bipolar symptoms. Hospital course: Latuda 20 mg daily ordered for bipolar symptoms and Zofran ordered for nausea; advised to take as prescribed. Instructed on the risks, benefits, and potential adverse reactions of the medication. Verbalized understanding and agreed with the plan. 12/26: Patient remains isolative, staying in bed and keeping himself most of the time. Patient has flat affect and appears abulic and though denies depression says he has no emotions either way. -increase Latuda to 40 mg for bipolar depression -will review medication history; ECT could be a consideration 12/27 Patient pushed himself to go out in the milieu today, which is a 1st during this admission. Said he was trying to do what he can to push back against depression. Patient and commercial lines underwriter discussed history of illness. He agrees that he is depressed but he says he does not feel sad. He reiterated that does not have feelings either way. However once starting to talk about history of treatment, patient got quite irritable and frustrated, and agreed that he is now feeling something. He reviewed multiple medication trial failures. Patient said at several points in the past he has just stopped taking medications, as recently with Latuda. In his frustration he yelled out I want to ... I just want to be ... And then climbed back in bed. That said, he said it was fine for commercial lines underwriter to manage or change his medication regimen as commercial lines underwriter thought best and did not need to be consulted prior. Discussed history of manic episodes: Patient had a manic episode in 2022 which lasted for over a month during which time he had no sleep, excessive energy, made lots of bad choices... With racing mind and hyperverbal 12/29: Increase Latuda to 60 mg. Impression/clinical reasoning: Patient has bipolar depression. Numerous failed medication trials including not tolerating ECT; however seems to have had some benefit from Latuda, Lamictal and maybe even lithium and it maybe that medications are partially helpful only he thus needs several medications to be effective. Patient has not tried Vraylar, ketamine or any TCA's -will titrate Latuda back to 120 mg since patient thinks it helped -may very well restart Lamictal; however since Lamictal can take quite awhile to titrate, will also consider Vraylar which has not been tried Plan: Admit to M5. CV 15 minutes check. Increase Latuda to 40 mg for continued bipolar depression; will titrate back to 120 mg which may have helped in the past Diagnostics as needed. Collateral contact. Continue remainder of regime. Encouraged full milieu. Discharge planning. Failed medication trials: ECT: 7 sessions and then patient became delirious Depakote Zoloft, Paxil, Effexor Wellbutrin Lamictal 400 mg; said it helped initially for awhile but then seemed to stop helping [place]: Does not remember Latuda 120 mg says it possibly helped Reason for continued inpatient stay Substantial Risk for: rapid decompensation Time Spent With Patient Time: Total time managing care of this patient today ____ minutes.
[2024-12-29] MEDS: Lurasidone HCl 20 MG TABLET 60 MG PO (17:14)
[2024-12-29] MEDS: Atorvastatin Calcium 20 MG TABLET PO (22:04)
[2024-12-30 07:53] VITALS: BP 121/52; PULSE 65; TEMP 36.7; O2SAT 98
[2024-12-30] MEDS: Aspirin Enteric Coated 81 MG TABLET.DR PO (09:04)
[2024-12-30] MEDS: Folic Acid 1 MG TABLET PO (09:04)
--- NOTE | 2024-12-30 09:35 | P.PNPSI_ITS ---
Subjective Subjective Reason For Visit: Bipolar II disorder,Current episode Depressed Diagnostics Vital Signs (24Hr): Vital Signs - 24 hr 12/30/24 07:53 Temperature 98.0 F Pulse Rate 65 Blood Pressure 121/52 L Pulse Oximetry 98 Oxygen Delivery Method Room Air Labs 12/24/24 13:48 Medications Medications Current Medications Acetaminophen (Acetaminophen 325 Mg Tablet) 650 mg PO Q6H PRN PRN Reason: Headache/Pain, Scale 1-10 Al Hydroxide/Mg Hydroxide (Magnesium Hydrox/Alum Hydrox 30 Ml Oral.Susp) 30 ml PO Q6H PRN PRN Reason: Heartburn/Nausea Aspirin (Aspirin Enteric Coated 81 Mg Tablet.Dr) 81 mg PO DAILY [facility] Last Admin: 12/30/24 09:04 Dose: 81 mg Atorvastatin Calcium (Atorvastatin Calcium 20 Mg Tablet) 20 mg PO BEDTIME [facility] Last Admin: 12/29/24 22:04 Dose: 20 mg Folic Acid (Folic Acid 1 Mg Tablet) 1 mg PO DAILY [facility] Last Admin: 12/30/24 09:04 Dose: 1 mg Hydroxyzine HCl (Hydroxyzine Hcl 25 Mg Tablet) 25 mg PO Q6H PRN PRN Reason: mild anxiety Lurasidone HCl (Lurasidone Hcl 20 Mg Tablet) 60 mg PO DAILY@1700 [facility] Last Admin: 12/29/24 17:14 Dose: 60 mg Magnesium Hydroxide (Milk Of Magnesia 30 Ml Oral.Susp) 30 ml PO DAILY PRN PRN Reason: Constipation Nicotine Polacrilex (Nicotine Polacrilex 2 Mg Gum) 4 mg BUCCAL Q2H PRN PRN Reason: Nicotine Cravings Trazodone HCl (Trazodone Hcl 50 Mg Tablet) 50 mg PO BEDTIME MRX1 PRN PRN Reason: Insomnia Allergies Allergies Allergy/AdvReac Type Severity Reaction Status Date / Time pumpkin Allergy Unknown Unknown Verified 12/24/24 12:26 Assessment & Plan Assessment & Plan (1) Bipolar disorder: Status: Acute Code(s): F31.9 - Bipolar disorder, unspecified (2) Nausea: Status: Acute Code(s): R11.0 - Nausea Plan HPI: Patient is a direct admit from [facility] for SI with a hx of MDD. He presents disheveled and malodorous. He is calm and cooperative with admission. He is delayed in answering questions and stares straight ahead while thinking. Skin check performed, no contraband, his skin is intact with PVD. He reports living at [facility] since 2021. He reports feeling kind of safe there and spends his days trying to sleep. He states he has taken the bus before but not in a while. He reports being homeless since 2008. He is currently unemployed and has not worked in years. His last job was at the [employer] in 2019. He reports not having any family or friends he speaks too. His father lives in [facility] and he hasnt spoken to him in years. There is no event that brought on his feeling of suicide, his thoughts have just been getting worse. He has a hx of SI and has taken drain-o in the past. He states he does not currently have a plan. His last IPLOC was at [place] in October where he spent one month for SI. That was also the last time he took any medications. He is open to this experience and states he is willing to go to groups and take prescribed medications. He reports a history of medical and physical restraints but is vague and states that it was a long time ago. He is safe on unit, signed a CV and is on 15 minute checks. He denies SI/HI/AVH. He plans to attend groups later today. He notes that he was on Latuda 120 mg daily and oxcarbazepine 300 mg daily until he was discharged at [facility] in October 2024. He notes that he stopped taking the medications without a reason. Reports history of anxiety, depression, and bipolar disorder. He denies alcohol or drug use. Formulation/Clinical reasoning: Patient's SI is likely related to severe depressive symptoms from untreated bipolar disorder. Psychomotor retardation due to sluggish thinking and speech also account for the patient's depressive state. He denies recent hypomania or leti symptoms. He stopped taking Latuda and oxcarbazepine in October 2024 with no apparent reason. Will start Latuda the 20 mg daily to target bipolar symptoms. Hospital course: Latuda 20 mg daily ordered for bipolar symptoms and Zofran ordered for nausea; advised to take as prescribed. Instructed on the risks, benefits, and potential adverse reactions of the medication. Verbalized understanding and agreed with the plan. 12/26: Patient remains isolative, staying in bed and keeping himself most of the time. Patient has flat affect and appears abulic and though denies depression says he has no emotions either way. -increase Latuda to 40 mg for bipolar depression -will review medication history; ECT could be a consideration 12/27 Patient pushed himself to go out in the milieu today, which is a 1st during this admission. Said he was trying to do what he can to push back against depression. Patient and telegraphic typewriter operator chief discussed history of illness. He agrees that he is depressed but he says he does not feel sad. He reiterated that does not have feelings either way. However once starting to talk about history of treatment, patient got quite irritable and frustrated, and agreed that he is now feeling something. He reviewed multiple medication trial failures. Patient said at several points in the past he has just stopped taking medications, as recently with Latuda. In his frustration he yelled out I want to ... I just want to be ... And then climbed back in bed. That said, he said it was fine for telegraphic typewriter operator chief to manage or change his medication regimen as telegraphic typewriter operator chief thought best and did not need to be consulted prior. Discussed history of manic episodes: Patient had a manic episode in 2022 which lasted for over a month during which time he had no sleep, excessive energy, made lots of bad choices... With racing mind and hyperverbal 12/28: Continue tx Impression/clinical reasoning: Patient has bipolar depression. Numerous failed medication trials including not tolerating ECT; however seems to have had some benefit from Latuda, Lamictal and maybe even lithium and it maybe that medications are partially helpful only he thus needs several medications to be effective. Patient has not tried Vraylar, ketamine or any TCA's -will titrate Latuda back to 120 mg since patient thinks it helped -may very well restart Lamictal; however since Lamictal can take quite awhile to titrate, will also consider Vraylar which has not been tried Plan: Admit to M5. CV 15 minutes check. Increase Latuda to 40 mg for continued bipolar depression; will titrate back to 120 mg which may have helped in the past Diagnostics as needed. Collateral contact. Continue remainder of regime. Encouraged full milieu. Discharge planning. Failed medication trials: ECT: 7 sessions and then patient became delirious Depakote Zoloft, Paxil, Effexor Wellbutrin Lamictal 400 mg; said it helped initially for awhile but then seemed to stop helping [place]: Does not remember Latuda 120 mg says it possibly helped Time Spent With Patient Time: Total time managing care of this patient today ____ minutes.
--- NOTE | 2024-12-30 13:46 | HO.PSYCHPN ---
Subjective Subjective Date of Service: 12/30/24 Reason For Visit: Bipolar II disorder,Current episode Depressed Subjective Notes: Conditional Voluntary Healthcare Proxy: No Guardianship: No Medical Problems Affecting Mental Status: No Interim History: Patient found lying in his bed. He notes that his symptoms have been improving; he is thinking clearly and less anxious and depressed. He has been attending groups intermittently. He has not showered since admitted. He has been taking his medications as prescribed and tolerating them. He currently denies SI/HI/AVH. Medication Compliance: Yes Side effects from medications: No Attending Groups: Intermittent Review of Systems Acute medical concerns: No Medical Review of Systems: unchanged Mental Status Exam Mental Status Exam Narrative: Mental Status Exam Narrative: Appearance: Casually dressed, disheveled, unkempt Behavior: Calm and cooperative throughout the interview. Eye contact is appropriate, and there are no signs of psychomotor agitation or retardation Speech: Normal volume and prosody Thought process logical and goal-directed Thought content: No self-harming thoughts Mood: Depressed Affect: Flat, mood-congruent SI:denies HI:denies VH/AH:none Delusions: None Insight/judgment: Fair insight and judgment Memory/cog: Alert, oriented x 4. grossly intact to conversational testing Diagnostics Vital Signs (24Hr): Vital Signs - 24 hr 12/30/24 07:53 Temperature 98.0 F Pulse Rate 65 Blood Pressure 121/52 L Pulse Oximetry 98 Oxygen Delivery Method Room Air Labs 12/24/24 13:48 Medications Medications Current Medications Acetaminophen (Acetaminophen 325 Mg Tablet) 650 mg PO Q6H PRN PRN Reason: Headache/Pain, Scale 1-10 Al Hydroxide/Mg Hydroxide (Magnesium Hydrox/Alum Hydrox 30 Ml Oral.Susp) 30 ml PO Q6H PRN PRN Reason: Heartburn/Nausea Aspirin (Aspirin Enteric Coated 81 Mg Tablet.) 81 mg PO DAILY [facility] Last Admin: 12/30/24 09:04 Dose: 81 mg Atorvastatin Calcium (Atorvastatin Calcium 20 Mg Tablet) 20 mg PO BEDTIME [facility] Last Admin: 12/29/24 22:04 Dose: 20 mg Folic Acid (Folic Acid 1 Mg Tablet) 1 mg PO DAILY [facility] Last Admin: 12/30/24 09:04 Dose: 1 mg Hydroxyzine HCl (Hydroxyzine Hcl 25 Mg Tablet) 25 mg PO Q6H PRN PRN Reason: mild anxiety Lurasidone HCl (Lurasidone Hcl 20 Mg Tablet) 60 mg PO DAILY@1700 [facility] Last Admin: 12/29/24 17:14 Dose: 60 mg Magnesium Hydroxide (Milk Of Magnesia 30 Ml Oral.Susp) 30 ml PO DAILY PRN PRN Reason: Constipation Nicotine Polacrilex (Nicotine Polacrilex 2 Mg Gum) 4 mg BUCCAL Q2H PRN PRN Reason: Nicotine Cravings Trazodone HCl (Trazodone Hcl 50 Mg Tablet) 50 mg PO BEDTIME MRX1 PRN PRN Reason: Insomnia Allergies Allergies Allergy/AdvReac Type Severity Reaction Status Date / Time pumpkin Allergy Unknown Unknown Verified 12/24/24 12:26 Assessment & Plan Assessment & Plan (1) Bipolar disorder: Status: Acute Code(s): F31.9 - Bipolar disorder, unspecified (2) Nausea: Status: Acute Code(s): R11.0 - Nausea Plan Plan HPI: Patient is a direct admit from [facility] for SI with a hx of MDD. He presents disheveled and malodorous. He is calm and cooperative with admission. He is delayed in answering questions and stares straight ahead while thinking. Skin check performed, no contraband, his skin is intact with PVD. He reports living at [facility] since 2021. He reports feeling kind of safe there and spends his days trying to sleep. He states he has taken the bus before but not in a while. He reports being homeless since 2008. He is currently unemployed and has not worked in years. His last job was at the [employer] in 2019. He reports not having any family or friends he speaks too. His father lives in [facility] and he hasnt spoken to him in years. There is no event that brought on his feeling of suicide, his thoughts have just been getting worse. He has a hx of SI and has taken drain-o in the past. He states he does not currently have a plan. His last IPLOC was at [place] in October where he spent one month for SI. That was also the last time he took any medications. He is open to this experience and states he is willing to go to groups and take prescribed medications. He reports a history of medical and physical restraints but is vague and states that it was a long time ago. He is safe on unit, signed a CV and is on 15 minute checks. He denies SI/HI/AVH. He plans to attend groups later today. He notes that he was on Latuda 120 mg daily and oxcarbazepine 300 mg daily until he was discharged at [facility] in October 2024. He notes that he stopped taking the medications without a reason. Reports history of anxiety, depression, and bipolar disorder. He denies alcohol or drug use. Formulation/Clinical reasoning: Patient's SI is likely related to severe depressive symptoms from untreated bipolar disorder. Psychomotor retardation due to sluggish thinking and speech also account for the patient's depressive state. He denies recent hypomania or leti symptoms. He stopped taking Latuda and oxcarbazepine in October 2024 with no apparent reason. Will start Latuda the 20 mg daily to target bipolar symptoms. Hospital course: Latuda 20 mg daily ordered for bipolar symptoms and Zofran ordered for nausea; advised to take as prescribed. Instructed on the risks, benefits, and potential adverse reactions of the medication. Verbalized understanding and agreed with the plan. 12/26: Patient remains isolative, staying in bed and keeping himself most of the time. Patient has flat affect and appears abulic and though denies depression says he has no emotions either way. -increase Latuda to 40 mg for bipolar depression -will review medication history; ECT could be a consideration 12/27 Patient pushed himself to go out in the milieu today, which is a 1st during this admission. Said he was trying to do what he can to push back against depression. Patient and machine sign writer discussed history of illness. He agrees that he is depressed but he says he does not feel sad. He reiterated that does not have feelings either way. However once starting to talk about history of treatment, patient got quite irritable and frustrated, and agreed that he is now feeling something. He reviewed multiple medication trial failures. Patient said at several points in the past he has just stopped taking medications, as recently with Latuda. In his frustration he yelled out I want to ... I just want to be ... And then climbed back in bed. That said, he said it was fine for machine sign writer to manage or change his medication regimen as machine sign writer thought best and did not need to be consulted prior. Discussed history of manic episodes: Patient had a manic episode in 2022 which lasted for over a month during which time he had no sleep, excessive energy, made lots of bad choices... With racing mind and hyperverbal 12/29: Increase Latuda to 60 mg. Impression/clinical reasoning: Patient has bipolar depression. Numerous failed medication trials including not tolerating ECT; however seems to have had some benefit from Latuda, Lamictal and maybe even lithium and it maybe that medications are partially helpful only he thus needs several medications to be effective. Patient has not tried Vraylar, ketamine or any TCA's -will titrate Latuda back to 120 mg since patient thinks it helped -may very well restart Lamictal; however since Lamictal can take quite awhile to titrate, will also consider Vraylar which has not been tried 12/30: Continue regime/plan. Encouraged to shower and notes he will do so this evening. Plan: Admit to M5. CV 15 minutes check. Increase Latuda to 40 mg for continued bipolar depression; will titrate back to 120 mg which may have helped in the past Diagnostics as needed. Collateral contact. Continue remainder of regime. Encouraged full milieu. Discharge planning. Failed medication trials: ECT: 7 sessions and then patient became delirious Depakote Zoloft, Paxil, Effexor Wellbutrin Lamictal 400 mg; said it helped initially for awhile but then seemed to stop helping [place]: Does not remember Latuda 120 mg says it possibly helped Reason for continued inpatient stay Substantial Risk for: rapid decompensation Time Spent With Patient Time: Total time managing care of this patient today ____ minutes.
[2024-12-30] MEDS: Lurasidone HCl 20 MG TABLET 60 MG PO (16:19)
[2024-12-30 19:51] VITALS: BP 121/69; PULSE 84; RESP 16; TEMP 36.3; O2SAT 99
[2024-12-30] MEDS: Atorvastatin Calcium 20 MG TABLET PO (21:00)
[2024-12-31 07:54] VITALS: BP 122/69; PULSE 76; RESP 18; TEMP 36.6; O2SAT 99
[2024-12-31] MEDS: Aspirin Enteric Coated 81 MG TABLET.DR PO (08:03)
[2024-12-31] MEDS: Folic Acid 1 MG TABLET PO (08:03)
--- NOTE | 2024-12-31 10:11 | HO.PSYCHPN ---
Subjective Subjective Date of Service: 12/31/24 Reason For Visit: Bipolar II disorder,Current episode Depressed Subjective Notes: Conditional Voluntary Healthcare Proxy: No Guardianship: No Medical Problems Affecting Mental Status: No Interim History: Patient found ambulating in the hallway. He notes that he has been feeling better and attending groups. He attended 2 groups yesterday and plans to attend 3 groups today. He feels severely depressed and notes that he has been severely depressed for several years with failed medication and ECT trials. He has not showered since admitted. He currently denies anxiety, leti/hypomania, SI, HI, AVH. Medication Compliance: Yes Side effects from medications: No Attending Groups: Intermittent Review of Systems Acute medical concerns: No Medical Review of Systems: unchanged Mental Status Exam Mental Status Exam Narrative: Appearance: Casually dressed, disheveled, unkempt Behavior: Calm and cooperative throughout the interview. Eye contact is appropriate, and there are no signs of psychomotor agitation or retardation Speech: Normal volume and prosody Thought process logical and goal-directed Thought content: No self-harming thoughts Mood: Depressed Affect: Flat, mood-congruent SI:denies HI:denies VH/AH:none Delusions: None Insight/judgment: Fair insight and judgment Memory/cog: Alert, oriented x 4. grossly intact to conversational testing Diagnostics Vital Signs (24Hr): Vital Signs - 24 hr 12/30/24 19:51 12/31/24 07:54 Temperature 97.4 F 97.9 F Pulse Rate 84 76 Respiratory Rate 16 18 Blood Pressure 121/69 122/69 Pulse Oximetry 99 99 Oxygen Delivery Method Room Air Room Air Labs 12/24/24 13:48 Medications Medications Current Medications Acetaminophen (Acetaminophen 325 Mg Tablet) 650 mg PO Q6H PRN PRN Reason: Headache/Pain, Scale 1-10 Al Hydroxide/Mg Hydroxide (Magnesium Hydrox/Alum Hydrox 30 Ml Oral.Susp) 30 ml PO Q6H PRN PRN Reason: Heartburn/Nausea Aspirin (Aspirin Enteric Coated 81 Mg Tablet.) 81 mg PO DAILY [facility] Last Admin: 12/31/24 08:03 Dose: 81 mg Atorvastatin Calcium (Atorvastatin Calcium 20 Mg Tablet) 20 mg PO BEDTIME [facility] Last Admin: 12/30/24 21:00 Dose: 20 mg Folic Acid (Folic Acid 1 Mg Tablet) 1 mg PO DAILY [facility] Last Admin: 12/31/24 08:03 Dose: 1 mg Hydroxyzine HCl (Hydroxyzine Hcl 25 Mg Tablet) 25 mg PO Q6H PRN PRN Reason: mild anxiety Lurasidone HCl (Lurasidone Hcl 20 Mg Tablet) 60 mg PO DAILY@1700 [facility]ENN[facility] Last Admin: 12/30/24 16:19 Dose: 60 mg Magnesium Hydroxide (Milk Of Magnesia 30 Ml Oral.Susp) 30 ml PO DAILY PRN PRN Reason: Constipation Nicotine Polacrilex (Nicotine Polacrilex 2 Mg Gum) 4 mg BUCCAL Q2H PRN PRN Reason: Nicotine Cravings Trazodone HCl (Trazodone Hcl 50 Mg Tablet) 50 mg PO BEDTIME MRX1 PRN PRN Reason: Insomnia Allergies Allergies Allergy/AdvReac Type Severity Reaction Status Date / Time pumpkin Allergy Unknown Unknown Verified 12/24/24 12:26 Assessment & Plan Assessment & Plan (1) Bipolar disorder: Status: Acute Code(s): F31.9 - Bipolar disorder, unspecified (2) Nausea: Status: Acute Code(s): R11.0 - Nausea Plan Plan HPI: Patient is a direct admit from [facility] for SI with a hx of MDD. He presents disheveled and malodorous. He is calm and cooperative with admission. He is delayed in answering questions and stares straight ahead while thinking. Skin check performed, no contraband, his skin is intact with PVD. He reports living at [facility] since 2021. He reports feeling kind of safe there and spends his days trying to sleep. He states he has taken the bus before but not in a while. He reports being homeless since 2008. He is currently unemployed and has not worked in years. His last job was at the [employer] in 2019. He reports not having any family or friends he speaks too. His father lives in [place] and he hasnt spoken to him in years. There is no event that brought on his feeling of suicide, his thoughts have just been getting worse. He has a hx of SI and has taken drain-o in the past. He states he does not currently have a plan. His last IPLOC was at [place] in October where he spent one month for SI. That was also the last time he took any medications. He is open to this experience and states he is willing to go to groups and take prescribed medications. He reports a history of medical and physical restraints but is vague and states that it was a long time ago. He is safe on unit, signed a CV and is on 15 minute checks. He denies SI/HI/AVH. He plans to attend groups later today. He notes that he was on Latuda 120 mg daily and oxcarbazepine 300 mg daily until he was discharged at [facility] in October 2024. He notes that he stopped taking the medications without a reason. Reports history of anxiety, depression, and bipolar disorder. He denies alcohol or drug use. Formulation/Clinical reasoning: Patient's SI is likely related to severe depressive symptoms from untreated bipolar disorder. Psychomotor retardation due to sluggish thinking and speech also account for the patient's depressive state. He denies recent hypomania or leti symptoms. He stopped taking Latuda and oxcarbazepine in October 2024 with no apparent reason. Will start Latuda the 20 mg daily to target bipolar symptoms. Hospital course: Latuda 20 mg daily ordered for bipolar symptoms and Zofran ordered for nausea; advised to take as prescribed. Instructed on the risks, benefits, and potential adverse reactions of the medication. Verbalized understanding and agreed with the plan. 12/26: Patient remains isolative, staying in bed and keeping himself most of the time. Patient has flat affect and appears abulic and though denies depression says he has no emotions either way. -increase Latuda to 40 mg for bipolar depression -will review medication history; ECT could be a consideration 12/27 Patient pushed himself to go out in the milieu today, which is a 1st during this admission. Said he was trying to do what he can to push back against depression. Patient and machine sign writer discussed history of illness. He agrees that he is depressed but he says he does not feel sad. He reiterated that does not have feelings either way. However once starting to talk about history of treatment, patient got quite irritable and frustrated, and agreed that he is now feeling something. He reviewed multiple medication trial failures. Patient said at several points in the past he has just stopped taking medications, as recently with Latuda. In his frustration he yelled out I want to ... I just want to be ... And then climbed back in bed. That said, he said it was fine for machine sign writer to manage or change his medication regimen as machine sign writer thought best and did not need to be consulted prior. Discussed history of manic episodes: Patient had a manic episode in 2022 which lasted for over a month during which time he had no sleep, excessive energy, made lots of bad choices... With racing mind and hyperverbal 12/29: Increase Latuda to 60 mg. Impression/clinical reasoning: Patient has bipolar depression. Numerous failed medication trials including not tolerating ECT; however seems to have had some benefit from Latuda, Lamictal and maybe even lithium and it maybe that medications are partially helpful only he thus needs several medications to be effective. Patient has not tried Vraylar, ketamine or any TCA's -will titrate Latuda back to 120 mg since patient thinks it helped -may very well restart Lamictal; however since Lamictal can take quite awhile to titrate, will also consider Vraylar which has not been tried 12/30: Continue regime/plan. Encouraged to shower and notes he will do so this evening. 12/31: Reports chronic severe depression. Latuda increased to 80 mg daily. Encouraged to shower today. Plan: Admit to M5. CV 15 minutes check. Increase Latuda to 40 mg for continued bipolar depression; will titrate back to 120 mg which may have helped in the past Diagnostics as needed. Collateral contact. Continue remainder of regime. Encouraged full milieu. Discharge planning. Failed medication trials: ECT: 7 sessions and then patient became delirious Depakote Zoloft, Paxil, Effexor Wellbutrin Lamictal 400 mg; said it helped initially for awhile but then seemed to stop helping Nitro: Does not remember Latuda 120 mg says it possibly helped Oxcarbazepine 300 mg says did not help Patient educated on: medication risk/benefits and therapeutic strategies Reason for continued inpatient stay Substantial Risk for: rapid decompensation Time Spent With Patient Time: Total time managing care of this patient today ____ minutes.
[2024-12-31] MEDS: Lurasidone HCl 20 MG TABLET PO (11:25)
[2024-12-31 20:00] VITALS: BP 119/66; PULSE 73; RESP 16; TEMP 36.4; O2SAT 99
[2024-12-31] MEDS: Atorvastatin Calcium 20 MG TABLET PO (20:47)
[2025-01-01 08:28] VITALS: BP 116/79; PULSE 71; TEMP 36.5; O2SAT 98
[2025-01-01] MEDS: Folic Acid 1 MG TABLET PO (08:36)
[2025-01-01] MEDS: Aspirin Enteric Coated 81 MG TABLET.DR PO (08:36)
[2025-01-01] MEDS: Lurasidone HCl 80 MG TABLET PO (08:36)
--- NOTE | 2025-01-01 09:57 | HO.PSYCHPN ---
Subjective Subjective Date of Service: 01/01/25 Reason For Visit: Bipolar II disorder,Current episode Depressed Interim History: met with patient; discussed with team pt says he's starting to feel a little better; no SI and more optimistic. Agrees to further titrate Latuda to 120mg; discussed other med options but patient wants to remain on just latuda for now. Mental Status Exam Mental Status Exam Narrative: Appearance: Casually dressed, disheveled, unkempt Behavior: Calm and cooperative throughout the interview. Eye contact is appropriate, psychomotor retardation remains Speech: Normal volume and prosody Thought process logical and goal-directed Thought content: No self-harming thoughts Mood: little better Affect: little brighter SI:denies HI:denies VH/AH:none Delusions: None Insight/judgment: impaired insight and judgment but improving Diagnostics Vital Signs (24Hr): Vital Signs - 24 hr 12/31/24 20:00 01/01/25 08:28 Temperature 97.6 F 97.7 F Pulse Rate 73 71 Respiratory Rate 16 Blood Pressure 119/66 116/79 Pulse Oximetry 99 98 Oxygen Delivery Method Room Air Room Air Labs 12/24/24 13:48 Medications Medications Current Medications Acetaminophen (Acetaminophen 325 Mg Tablet) 650 mg PO Q6H PRN PRN Reason: Headache/Pain, Scale 1-10 Al Hydroxide/Mg Hydroxide (Magnesium Hydrox/Alum Hydrox 30 Ml Oral.Susp) 30 ml PO Q6H PRN PRN Reason: Heartburn/Nausea Aspirin (Aspirin Enteric Coated 81 Mg Tablet.) 81 mg PO DAILY [facility] Last Admin: 01/01/25 08:36 Dose: 81 mg Atorvastatin Calcium (Atorvastatin Calcium 20 Mg Tablet) 20 mg PO BEDTIME [facility] Last Admin: 12/31/24 20:47 Dose: 20 mg Folic Acid (Folic Acid 1 Mg Tablet) 1 mg PO DAILY [facility] Last Admin: 01/01/25 08:36 Dose: 1 mg Hydroxyzine HCl (Hydroxyzine Hcl 25 Mg Tablet) 25 mg PO Q6H PRN PRN Reason: mild anxiety Lurasidone HCl (Lurasidone Hcl 80 Mg Tablet) 80 mg PO DAILY [facility] Last Admin: 01/01/25 08:36 Dose: 80 mg Magnesium Hydroxide (Milk Of Magnesia 30 Ml Oral.Susp) 30 ml PO DAILY PRN PRN Reason: Constipation Nicotine Polacrilex (Nicotine Polacrilex 2 Mg Gum) 4 mg BUCCAL Q2H PRN PRN Reason: Nicotine Cravings Trazodone HCl (Trazodone Hcl 50 Mg Tablet) 50 mg PO BEDTIME MRX1 PRN PRN Reason: Insomnia Allergies Allergies Allergy/AdvReac Type Severity Reaction Status Date / Time pumpkin Allergy Unknown Unknown Verified 12/24/24 12:26 Assessment & Plan Assessment & Plan (1) Bipolar disorder: Status: Acute Code(s): F31.9 - Bipolar disorder, unspecified (2) Nausea: Status: Acute Code(s): R11.0 - Nausea Plan Plan HPI: Patient is a direct admit from [facility] for SI with a hx of MDD. He presents disheveled and malodorous. He is calm and cooperative with admission. He is delayed in answering questions and stares straight ahead while thinking. Skin check performed, no contraband, his skin is intact with PVD. He reports living at [facility] since 2021. He reports feeling kind of safe there and spends his days trying to sleep. He states he has taken the bus before but not in a while. He reports being homeless since 2008. He is currently unemployed and has not worked in years. His last job was at the [employer] in 2019. He reports not having any family or friends he speaks too. His father lives in [place] and he hasnt spoken to him in years. There is no event that brought on his feeling of suicide, his thoughts have just been getting worse. He has a hx of SI and has taken drain-o in the past. He states he does not currently have a plan. His last IPLOC was at [place] in October where he spent one month for SI. That was also the last time he took any medications. He is open to this experience and states he is willing to go to groups and take prescribed medications. He reports a history of medical and physical restraints but is vague and states that it was a long time ago. He is safe on unit, signed a CV and is on 15 minute checks. He denies SI/HI/AVH. He plans to attend groups later today. He notes that he was on Latuda 120 mg daily and oxcarbazepine 300 mg daily until he was discharged at [facility] in October 2024. He notes that he stopped taking the medications without a reason. Reports history of anxiety, depression, and bipolar disorder. He denies alcohol or drug use. Formulation/Clinical reasoning: Patient's SI is likely related to severe depressive symptoms from untreated bipolar disorder. Psychomotor retardation due to sluggish thinking and speech also account for the patient's depressive state. He denies recent hypomania or leti symptoms. He stopped taking Latuda and oxcarbazepine in October 2024 with no apparent reason. Will start Latuda the 20 mg daily to target bipolar symptoms. Hospital course: Latuda 20 mg daily ordered for bipolar symptoms and Zofran ordered for nausea; advised to take as prescribed. Instructed on the risks, benefits, and potential adverse reactions of the medication. Verbalized understanding and agreed with the plan. 12/26: Patient remains isolative, staying in bed and keeping himself most of the time. Patient has flat affect and appears abulic and though denies depression says he has no emotions either way. -increase Latuda to 40 mg for bipolar depression -will review medication history; ECT could be a consideration 12/27 Patient pushed himself to go out in the milieu today, which is a 1st during this admission. Said he was trying to do what he can to push back against depression. Patient and underwriter mortgage loan discussed history of illness. He agrees that he is depressed but he says he does not feel sad. He reiterated that does not have feelings either way. However once starting to talk about history of treatment, patient got quite irritable and frustrated, and agreed that he is now feeling something. He reviewed multiple medication trial failures. Patient said at several points in the past he has just stopped taking medications, as recently with Latuda. In his frustration he yelled out I want to ... I just want to be ... And then climbed back in bed. That said, he said it was fine for underwriter mortgage loan to manage or change his medication regimen as underwriter mortgage loan thought best and did not need to be consulted prior. Discussed history of manic episodes: Patient had a manic episode in 2022 which lasted for over a month during which time he had no sleep, excessive energy, made lots of bad choices... With racing mind and hyperverbal 12/29: Increase Latuda to 60 mg. Impression/clinical reasoning: Patient has bipolar depression. Numerous failed medication trials including not tolerating ECT; however seems to have had some benefit from Latuda, Lamictal and maybe even lithium and it maybe that medications are partially helpful only he thus needs several medications to be effective. Patient has not tried Vraylar, ketamine or any TCA's -will titrate Latuda back to 120 mg since patient thinks it helped -may very well restart Lamictal; however since Lamictal can take quite awhile to titrate, will also consider Vraylar which has not been tried 12/30: Continue regime/plan. Encouraged to shower and notes he will do so this evening. 12/31: Reports chronic severe depression. Latuda increased to 80 mg daily. Encouraged to shower today. 01/01: pt says he's starting to feel a little better; no SI and more optimistic. Agrees to further titrate Latuda to 120mg; discussed other med options but patient wants to remain on just latuda for now. Plan: Admit to M5. CV 15 minutes check. Increase Latuda to 40 mg for continued bipolar depression; will titrate back to 120 mg which may have helped in the past Diagnostics as needed. Collateral contact. Continue remainder of regime. Encouraged full milieu. Discharge planning. Failed medication trials: ECT: 7 sessions and then patient became delirious Depakote Zoloft, Paxil, Effexor Wellbutrin Lamictal 400 mg; said it helped initially for awhile but then seemed to stop helping [place]en: Does not remember Latuda 120 mg says it possibly helped Oxcarbazepine 300 mg says did not help Patient educated on: diagnosis and medication risk/benefits Informed Consent: understands Reason for continued inpatient stay Substantial Risk for: rapid decompensation Time Spent With Patient Time: Total time managing care of this patient today ____ minutes.
[2025-01-01 20:00] VITALS: BP 116/66; PULSE 73; TEMP 36.5; O2SAT 97
[2025-01-01] MEDS: Atorvastatin Calcium 20 MG TABLET PO (21:30)
[2025-01-02 07:59] VITALS: BP 127/74; PULSE 66; RESP 18; TEMP 36.4; O2SAT 100
[2025-01-02] MEDS: Folic Acid 1 MG TABLET PO (08:24)
[2025-01-02] MEDS: Aspirin Enteric Coated 81 MG TABLET.DR PO (08:24)
--- NOTE | 2025-01-02 09:32 | HO.PSYCHPN ---
Subjective Subjective Date of Service: 01/02/25 Reason For Visit: Bipolar II disorder,Current episode Depressed Interim History: RN reports patient has been isolated. Poor ADL's. Depressed. Patient reports he is depressed but feels better with the increasein Latuda and is tolerating it well. He currently denies anxiety, leti/hypomania, SI, HI, AVH. Review of Systems Review of Systems Pt denies Mental Status Exam Mental Status Exam Narrative: Appearance: Casually dressed, disheveled, unkempt Behavior: Calm and cooperative throughout the interview. Eye contact is appropriate, and there are no signs of psychomotor agitation or retardation Speech: Normal volume and prosody Thought process logical and goal-directed Thought content: No self-harming thoughts Mood: Depressed Affect: Flat, mood-congruent SI:denies HI:denies VH/AH:none Delusions: None Insight/judgment: Fair insight and judgment Memory/cog: Alert, oriented x 4. grossly intact to conversational testing Patient Appearance: Appropriate Patient Orientation: Person, Place, Time and Situation Level of Consciousness: Alert Patient Behavior: Appropriate, Guarded, Cooperative, Suspicious, Distractible and Good Eye Contact Mood Description: Withdrawn Affect Description: Withdrawn Patient Cognition Impaired: No Ability to Follow Directions: Fair Speech Pattern: Spontaneous Speech Memory Description: Intact Diagnostics Vital Signs (24Hr): Vital Signs - 24 hr 01/01/25 20:00 01/02/25 07:59 Temperature 97.7 F 97.5 F Pulse Rate 73 66 Respiratory Rate 18 Blood Pressure 116/66 127/74 Pulse Oximetry 97 100 Oxygen Delivery Method Room Air Room Air Labs 12/24/24 13:48 Medications Medications Current Medications Acetaminophen (Acetaminophen 325 Mg Tablet) 650 mg PO Q6H PRN PRN Reason: Headache/Pain, Scale 1-10 Al Hydroxide/Mg Hydroxide (Magnesium Hydrox/Alum Hydrox 30 Ml Oral.Susp) 30 ml PO Q6H PRN PRN Reason: Heartburn/Nausea Aspirin (Aspirin Enteric Coated 81 Mg Tablet.) 81 mg PO DAILY [facility] Last Admin: 01/02/25 08:24 Dose: 81 mg Atorvastatin Calcium (Atorvastatin Calcium 20 Mg Tablet) 20 mg PO BEDTIME [facility] Last Admin: 01/01/25 21:30 Dose: 20 mg Folic Acid (Folic Acid 1 Mg Tablet) 1 mg PO DAILY [facility] Last Admin: 01/02/25 08:24 Dose: 1 mg Hydroxyzine HCl (Hydroxyzine Hcl 25 Mg Tablet) 25 mg PO Q6H PRN PRN Reason: mild anxiety Lurasidone HCl (Lurasidone Hcl 40 Mg Tablet) 120 mg PO DAILY@1700 JENN[facility]ER Magnesium Hydroxide (Milk Of Magnesia 30 Ml Oral.Susp) 30 ml PO DAILY PRN PRN Reason: Constipation Nicotine Polacrilex (Nicotine Polacrilex 2 Mg Gum) 4 mg BUCCAL Q2H PRN PRN Reason: Nicotine Cravings Trazodone HCl (Trazodone Hcl 50 Mg Tablet) 50 mg PO BEDTIME MRX1 PRN PRN Reason: Insomnia Allergies Allergies Allergy/AdvReac Type Severity Reaction Status Date / Time pumpkin Allergy Unknown Unknown Verified 12/24/24 12:26 Assessment & Plan Assessment & Plan (1) Bipolar disorder: Status: Acute Code(s): F31.9 - Bipolar disorder, unspecified (2) Nausea: Status: Acute Code(s): R11.0 - Nausea Plan Plan HPI: Patient is a direct admit from [facility] for SI with a hx of MDD. He presents disheveled and malodorous. He is calm and cooperative with admission. He is delayed in answering questions and stares straight ahead while thinking. Skin check performed, no contraband, his skin is intact with PVD. He reports living at [facility] since 2021. He reports feeling kind of safe there and spends his days trying to sleep. He states he has taken the bus before but not in a while. He reports being homeless since 2008. He is currently unemployed and has not worked in years. His last job was at the [employer] in 2019. He reports not having any family or friends he speaks too. His father lives in [facility] and he hasnt spoken to him in years. There is no event that brought on his feeling of suicide, his thoughts have just been getting worse. He has a hx of SI and has taken drain-o in the past. He states he does not currently have a plan. His last IPLOC was at [place] in October where he spent one month for SI. That was also the last time he took any medications. He is open to this experience and states he is willing to go to groups and take prescribed medications. He reports a history of medical and physical restraints but is vague and states that it was a long time ago. He is safe on unit, signed a CV and is on 15 minute checks. He denies SI/HI/AVH. He plans to attend groups later today. He notes that he was on Latuda 120 mg daily and oxcarbazepine 300 mg daily until he was discharged at [facility] in October 2024. He notes that he stopped taking the medications without a reason. Reports history of anxiety, depression, and bipolar disorder. He denies alcohol or drug use. Formulation/Clinical reasoning: Patient's SI is likely related to severe depressive symptoms from untreated bipolar disorder. Psychomotor retardation due to sluggish thinking and speech also account for the patient's depressive state. He denies recent hypomania or leti symptoms. He stopped taking Latuda and oxcarbazepine in October 2024 with no apparent reason. Will start Latuda the 20 mg daily to target bipolar symptoms. Hospital course: Latuda 20 mg daily ordered for bipolar symptoms and Zofran ordered for nausea; advised to take as prescribed. Instructed on the risks, benefits, and potential adverse reactions of the medication. Verbalized understanding and agreed with the plan. 12/26: Patient remains isolative, staying in bed and keeping himself most of the time. Patient has flat affect and appears abulic and though denies depression says he has no emotions either way. -increase Latuda to 40 mg for bipolar depression -will review medication history; ECT could be a consideration 12/27 Patient pushed himself to go out in the milieu today, which is a 1st during this admission. Said he was trying to do what he can to push back against depression. Patient and fiction and nonfiction writer prose discussed history of illness. He agrees that he is depressed but he says he does not feel sad. He reiterated that does not have feelings either way. However once starting to talk about history of treatment, patient got quite irritable and frustrated, and agreed that he is now feeling something. He reviewed multiple medication trial failures. Patient said at several points in the past he has just stopped taking medications, as recently with Latuda. In his frustration he yelled out I want to ... I just want to be ... And then climbed back in bed. That said, he said it was fine for fiction and nonfiction writer prose to manage or change his medication regimen as fiction and nonfiction writer prose thought best and did not need to be consulted prior. Discussed history of manic episodes: Patient had a manic episode in 2022 which lasted for over a month during which time he had no sleep, excessive energy, made lots of bad choices... With racing mind and hyperverbal 12/29: Increase Latuda to 60 mg. Impression/clinical reasoning: Patient has bipolar depression. Numerous failed medication trials including not tolerating ECT; however seems to have had some benefit from Latuda, Lamictal and maybe even lithium and it maybe that medications are partially helpful only he thus needs several medications to be effective. Patient has not tried Vraylar, ketamine or any TCA's -will titrate Latuda back to 120 mg since patient thinks it helped -may very well restart Lamictal; however since Lamictal can take quite awhile to titrate, will also consider Vraylar which has not been tried 12/30: Continue regime/plan. Encouraged to shower and notes he will do so this evening. 12/31: Reports chronic severe depression. Latuda increased to 80 mg daily. Encouraged to shower today. 01/02: continue current management and treatment plan. Plan: Admit to M5. CV 15 minutes check. Increase Latuda to 40 mg for continued bipolar depression; will titrate back to 120 mg which may have helped in the past Diagnostics as needed. Collateral contact. Continue remainder of regime. Encouraged full milieu. Discharge planning. Failed medication trials: ECT: 7 sessions and then patient became delirious Depakote Zoloft, Paxil, Effexor Wellbutrin Lamictal 400 mg; said it helped initially for awhile but then seemed to stop helping [place]: Does not remember Latuda 120 mg says it possibly helped Oxcarbazepine 300 mg says did not help Reason for continued inpatient stay Substantial Risk for: harm to self, inability to function and rapid decompensation Time Spent With Patient Time: Total time managing care of this patient today ____ minutes.
[2025-01-02] MEDS: Lurasidone HCl 40 MG TABLET 120 MG PO (16:38)
[2025-01-02 20:00] VITALS: BP 101/68; PULSE 67; TEMP 36.5; O2SAT 98
[2025-01-02] MEDS: Atorvastatin Calcium 20 MG TABLET PO (20:08)
[2025-01-03 08:00] VITALS: BP 119/77; PULSE 63; RESP 18; TEMP 36.9; O2SAT 98
[2025-01-03] MEDS: Folic Acid 1 MG TABLET PO (08:57)
[2025-01-03] MEDS: Aspirin Enteric Coated 81 MG TABLET.DR PO (08:57)
--- NOTE | 2025-01-03 10:49 | HO.PSYCHPN ---
Subjective Subjective Date of Service: 01/03/25 Reason For Visit: Bipolar II disorder,Current episode Depressed Interim History: Remains isolated to his room and with poor self care. Difficult to engage. RN reports patient has been isolated. Poor ADL's. Depressed. Says he didn't sleep well because his roommate needed medical care at night and early this morning. He denies anxiety, leti/hypomania, SI, HI, AVH. Review of Systems Review of Systems Pt denies Mental Status Exam Mental Status Exam Narrative: Appearance: Casually dressed, disheveled, unkempt Behavior: Calm and cooperative throughout the interview. Eye contact is appropriate, and there are no signs of psychomotor agitation or retardation Speech: Normal volume and prosody Thought process logical and goal-directed Thought content: No self-harming thoughts Mood: Depressed Affect: Flat, mood-congruent SI:denies HI:denies VH/AH:none Delusions: None Insight/judgment: Fair insight and judgment Memory/cog: Alert, oriented x 4. grossly intact to conversational testing Patient Appearance: Appropriate Patient Orientation: Person, Place, Time and Situation Level of Consciousness: Alert Patient Behavior: Appropriate, Guarded, Cooperative, Suspicious, Distractible and Good Eye Contact Mood Description: Withdrawn Affect Description: Withdrawn Patient Cognition Impaired: No Ability to Follow Directions: Fair Speech Pattern: Spontaneous Speech Memory Description: Intact Diagnostics Vital Signs (24Hr): Vital Signs - 24 hr 01/02/25 20:00 01/03/25 08:00 Temperature 97.7 F 98.4 F Pulse Rate 67 63 Respiratory Rate 18 Blood Pressure 101/68 119/77 Pulse Oximetry 98 98 Oxygen Delivery Method Room Air Room Air Labs 12/24/24 13:48 Medications Medications Current Medications Acetaminophen (Acetaminophen 325 Mg Tablet) 650 mg PO Q6H PRN PRN Reason: Headache/Pain, Scale 1-10 Al Hydroxide/Mg Hydroxide (Magnesium Hydrox/Alum Hydrox 30 Ml Oral.Susp) 30 ml PO Q6H PRN PRN Reason: Heartburn/Nausea Aspirin (Aspirin Enteric Coated 81 Mg Tablet.) 81 mg PO DAILY [facility] Last Admin: 01/03/25 08:57 Dose: 81 mg Atorvastatin Calcium (Atorvastatin Calcium 20 Mg Tablet) 20 mg PO BEDTIME [facility] Last Admin: 01/02/25 20:08 Dose: 20 mg Folic Acid (Folic Acid 1 Mg Tablet) 1 mg PO DAILY [facility] Last Admin: 01/03/25 08:57 Dose: 1 mg Hydroxyzine HCl (Hydroxyzine Hcl 25 Mg Tablet) 25 mg PO Q6H PRN PRN Reason: mild anxiety Lurasidone HCl (Lurasidone Hcl 40 Mg Tablet) 120 mg PO DAILY@1700 [facility] Last Admin: 01/02/25 16:38 Dose: 120 mg Magnesium Hydroxide (Milk Of Magnesia 30 Ml Oral.Susp) 30 ml PO DAILY PRN PRN Reason: Constipation Nicotine Polacrilex (Nicotine Polacrilex 2 Mg Gum) 4 mg BUCCAL Q2H PRN PRN Reason: Nicotine Cravings Trazodone HCl (Trazodone Hcl 50 Mg Tablet) 50 mg PO BEDTIME MRX1 PRN PRN Reason: Insomnia Allergies Allergies Allergy/AdvReac Type Severity Reaction Status Date / Time pumpkin Allergy Unknown Unknown Verified 12/24/24 12:26 Assessment & Plan Assessment & Plan (1) Bipolar disorder: Status: Acute Code(s): F31.9 - Bipolar disorder, unspecified (2) Nausea: Status: Acute Code(s): R11.0 - Nausea Plan Plan HPI: Patient is a direct admit from [facility] for SI with a hx of MDD. He presents disheveled and malodorous. He is calm and cooperative with admission. He is delayed in answering questions and stares straight ahead while thinking. Skin check performed, no contraband, his skin is intact with PVD. He reports living at [facility] since 2021. He reports feeling kind of safe there and spends his days trying to sleep. He states he has taken the bus before but not in a while. He reports being homeless since 2008. He is currently unemployed and has not worked in years. His last job was at the [employer] in 2019. He reports not having any family or friends he speaks too. His father lives in [facility] and he hasnt spoken to him in years. There is no event that brought on his feeling of suicide, his thoughts have just been getting worse. He has a hx of SI and has taken drain-o in the past. He states he does not currently have a plan. His last IPLOC was at [place] in October where he spent one month for SI. That was also the last time he took any medications. He is open to this experience and states he is willing to go to groups and take prescribed medications. He reports a history of medical and physical restraints but is vague and states that it was a long time ago. He is safe on unit, signed a CV and is on 15 minute checks. He denies SI/HI/AVH. He plans to attend groups later today. He notes that he was on Latuda 120 mg daily and oxcarbazepine 300 mg daily until he was discharged at [facility] in October 2024. He notes that he stopped taking the medications without a reason. Reports history of anxiety, depression, and bipolar disorder. He denies alcohol or drug use. Formulation/Clinical reasoning: Patient's SI is likely related to severe depressive symptoms from untreated bipolar disorder. Psychomotor retardation due to sluggish thinking and speech also account for the patient's depressive state. He denies recent hypomania or leti symptoms. He stopped taking Latuda and oxcarbazepine in October 2024 with no apparent reason. Will start Latuda the 20 mg daily to target bipolar symptoms. Hospital course: Latuda 20 mg daily ordered for bipolar symptoms and Zofran ordered for nausea; advised to take as prescribed. Instructed on the risks, benefits, and potential adverse reactions of the medication. Verbalized understanding and agreed with the plan. 12/26: Patient remains isolative, staying in bed and keeping himself most of the time. Patient has flat affect and appears abulic and though denies depression says he has no emotions either way. -increase Latuda to 40 mg for bipolar depression -will review medication history; ECT could be a consideration 12/27 Patient pushed himself to go out in the milieu today, which is a 1st during this admission. Said he was trying to do what he can to push back against depression. Patient and quality analyst/technical writer discussed history of illness. He agrees that he is depressed but he says he does not feel sad. He reiterated that does not have feelings either way. However once starting to talk about history of treatment, patient got quite irritable and frustrated, and agreed that he is now feeling something. He reviewed multiple medication trial failures. Patient said at several points in the past he has just stopped taking medications, as recently with Latuda. In his frustration he yelled out I want to ... I just want to be ... And then climbed back in bed. That said, he said it was fine for quality analyst/technical writer to manage or change his medication regimen as quality analyst/technical writer thought best and did not need to be consulted prior. Discussed history of manic episodes: Patient had a manic episode in 2022 which lasted for over a month during which time he had no sleep, excessive energy, made lots of bad choices... With racing mind and hyperverbal 12/29: Increase Latuda to 60 mg. Impression/clinical reasoning: Patient has bipolar depression. Numerous failed medication trials including not tolerating ECT; however seems to have had some benefit from Latuda, Lamictal and maybe even lithium and it maybe that medications are partially helpful only he thus needs several medications to be effective. Patient has not tried Vraylar, ketamine or any TCA's -will titrate Latuda back to 120 mg since patient thinks it helped -may very well restart Lamictal; however since Lamictal can take quite awhile to titrate, will also consider Vraylar which has not been tried 12/30: Continue regime/plan. Encouraged to shower and notes he will do so this evening. 12/31: Reports chronic severe depression. Latuda increased to 80 mg daily. Encouraged to shower today. 01/02: continue current management and treatment plan. 01/03: continue current management and treatment plan. Plan: Admit to M5. CV 15 minutes check. Increase Latuda to 40 mg for continued bipolar depression; will titrate back to 120 mg which may have helped in the past Diagnostics as needed. Collateral contact. Continue remainder of regime. Encouraged full milieu. Discharge planning. Failed medication trials: ECT: 7 sessions and then patient became delirious Depakote Zoloft, Paxil, Effexor Wellbutrin Lamictal 400 mg; said it helped initially for awhile but then seemed to stop helping [place]: Does not remember Latuda 120 mg says it possibly helped Oxcarbazepine 300 mg says did not help Reason for continued inpatient stay Substantial Risk for: inability to function and rapid decompensation Time Spent With Patient Time: Total time managing care of this patient today ____ minutes.
[2025-01-03] MEDS: Lurasidone HCl 40 MG TABLET 120 MG PO (16:04)
[2025-01-03 19:47] VITALS: BP 98/59; PULSE 72; TEMP 36.4; O2SAT 95
[2025-01-03] MEDS: Atorvastatin Calcium 20 MG TABLET PO (20:30)
[2025-01-04 08:12] VITALS: BP 120/81; PULSE 79; RESP 20; TEMP 36.4; O2SAT 100
[2025-01-04] MEDS: Aspirin Enteric Coated 81 MG TABLET.DR PO (08:39)
[2025-01-04] MEDS: Folic Acid 1 MG TABLET PO (08:39)
--- NOTE | 2025-01-04 09:30 | HO.PSYCHPN ---
Subjective Subjective Date of Service: 01/04/25 Reason For Visit: Bipolar II disorder,Current episode Depressed Interim History: Went out of his room more yesterday. Went to a sensory group and fresh air group. ADL's remain poor however. Poor ADL's. Depressed. Says he got a better night sleep last night. He denies anxiety, leti/hypomania, SI, HI, AVH. Review of Systems Review of Systems Pt denies Mental Status Exam Mental Status Exam Narrative: Appearance: Casually dressed, disheveled, unkempt Behavior: Calm and cooperative throughout the interview. Eye contact is appropriate, and there are no signs of psychomotor agitation or retardation Speech: Normal volume and prosody Thought process logical and goal-directed Thought content: No self-harming thoughts Mood: Depressed Affect: Flat, mood-congruent SI:denies HI:denies VH/AH:none Delusions: None Insight/judgment: Fair insight and judgment Memory/cog: Alert, oriented x 4. grossly intact to conversational testing Patient Appearance: Appropriate Patient Orientation: Person, Place, Time and Situation Level of Consciousness: Alert Patient Behavior: Appropriate, Guarded, Cooperative, Suspicious, Distractible and Good Eye Contact Mood Description: Withdrawn Affect Description: Withdrawn Patient Cognition Impaired: No Ability to Follow Directions: Fair Speech Pattern: Spontaneous Speech Memory Description: Intact Diagnostics Vital Signs (24Hr): Vital Signs - 24 hr 01/03/25 19:47 01/04/25 08:12 Temperature 97.5 F 97.6 F Pulse Rate 72 79 Respiratory Rate 20 Blood Pressure 98/59 L 120/81 Pulse Oximetry 95 100 Oxygen Delivery Method Room Air Room Air Labs 12/24/24 13:48 Medications Medications Current Medications Acetaminophen (Acetaminophen 325 Mg Tablet) 650 mg PO Q6H PRN PRN Reason: Headache/Pain, Scale 1-10 Al Hydroxide/Mg Hydroxide (Magnesium Hydrox/Alum Hydrox 30 Ml Oral.Susp) 30 ml PO Q6H PRN PRN Reason: Heartburn/Nausea Aspirin (Aspirin Enteric Coated 81 Mg Tablet.) 81 mg PO DAILY [facility] Last Admin: 01/04/25 08:39 Dose: 81 mg Atorvastatin Calcium (Atorvastatin Calcium 20 Mg Tablet) 20 mg PO BEDTIME [facility] Last Admin: 01/03/25 20:30 Dose: 20 mg Folic Acid (Folic Acid 1 Mg Tablet) 1 mg PO DAILY [facility] Last Admin: 01/04/25 08:39 Dose: 1 mg Hydroxyzine HCl (Hydroxyzine Hcl 25 Mg Tablet) 25 mg PO Q6H PRN PRN Reason: mild anxiety Lurasidone HCl (Lurasidone Hcl 40 Mg Tablet) 120 mg PO DAILY@1700 [facility] Last Admin: 01/03/25 16:04 Dose: 120 mg Magnesium Hydroxide (Milk Of Magnesia 30 Ml Oral.Susp) 30 ml PO DAILY PRN PRN Reason: Constipation Nicotine Polacrilex (Nicotine Polacrilex 2 Mg Gum) 4 mg BUCCAL Q2H PRN PRN Reason: Nicotine Cravings Trazodone HCl (Trazodone Hcl 50 Mg Tablet) 50 mg PO BEDTIME MRX1 PRN PRN Reason: Insomnia Allergies Allergies Allergy/AdvReac Type Severity Reaction Status Date / Time pumpkin Allergy Unknown Unknown Verified 12/24/24 12:26 Assessment & Plan Assessment & Plan (1) Bipolar disorder: Status: Acute Code(s): F31.9 - Bipolar disorder, unspecified (2) Nausea: Status: Acute Code(s): R11.0 - Nausea Plan Plan HPI: Patient is a direct admit from [facility] for SI with a hx of MDD. He presents disheveled and malodorous. He is calm and cooperative with admission. He is delayed in answering questions and stares straight ahead while thinking. Skin check performed, no contraband, his skin is intact with PVD. He reports living at [facility] since 2021. He reports feeling kind of safe there and spends his days trying to sleep. He states he has taken the bus before but not in a while. He reports being homeless since 2008. He is currently unemployed and has not worked in years. His last job was at the [employer] in 2019. He reports not having any family or friends he speaks too. His father lives in [facility] and he hasnt spoken to him in years. There is no event that brought on his feeling of suicide, his thoughts have just been getting worse. He has a hx of SI and has taken drain-o in the past. He states he does not currently have a plan. His last IPLOC was at [place] in October where he spent one month for SI. That was also the last time he took any medications. He is open to this experience and states he is willing to go to groups and take prescribed medications. He reports a history of medical and physical restraints but is vague and states that it was a long time ago. He is safe on unit, signed a CV and is on 15 minute checks. He denies SI/HI/AVH. He plans to attend groups later today. He notes that he was on Latuda 120 mg daily and oxcarbazepine 300 mg daily until he was discharged at [facility] in October 2024. He notes that he stopped taking the medications without a reason. Reports history of anxiety, depression, and bipolar disorder. He denies alcohol or drug use. Formulation/Clinical reasoning: Patient's SI is likely related to severe depressive symptoms from untreated bipolar disorder. Psychomotor retardation due to sluggish thinking and speech also account for the patient's depressive state. He denies recent hypomania or leti symptoms. He stopped taking Latuda and oxcarbazepine in October 2024 with no apparent reason. Will start Latuda the 20 mg daily to target bipolar symptoms. Hospital course: Latuda 20 mg daily ordered for bipolar symptoms and Zofran ordered for nausea; advised to take as prescribed. Instructed on the risks, benefits, and potential adverse reactions of the medication. Verbalized understanding and agreed with the plan. 12/26: Patient remains isolative, staying in bed and keeping himself most of the time. Patient has flat affect and appears abulic and though denies depression says he has no emotions either way. -increase Latuda to 40 mg for bipolar depression -will review medication history; ECT could be a consideration 12/27 Patient pushed himself to go out in the milieu today, which is a 1st during this admission. Said he was trying to do what he can to push back against depression. Patient and senior medical writer discussed history of illness. He agrees that he is depressed but he says he does not feel sad. He reiterated that does not have feelings either way. However once starting to talk about history of treatment, patient got quite irritable and frustrated, and agreed that he is now feeling something. He reviewed multiple medication trial failures. Patient said at several points in the past he has just stopped taking medications, as recently with Latuda. In his frustration he yelled out I want to ... I just want to be ... And then climbed back in bed. That said, he said it was fine for senior medical writer to manage or change his medication regimen as senior medical writer thought best and did not need to be consulted prior. Discussed history of manic episodes: Patient had a manic episode in 2022 which lasted for over a month during which time he had no sleep, excessive energy, made lots of bad choices... With racing mind and hyperverbal 12/29: Increase Latuda to 60 mg. Impression/clinical reasoning: Patient has bipolar depression. Numerous failed medication trials including not tolerating ECT; however seems to have had some benefit from Latuda, Lamictal and maybe even lithium and it maybe that medications are partially helpful only he thus needs several medications to be effective. Patient has not tried Vraylar, ketamine or any TCA's -will titrate Latuda back to 120 mg since patient thinks it helped -may very well restart Lamictal; however since Lamictal can take quite awhile to titrate, will also consider Vraylar which has not been tried 12/30: Continue regime/plan. Encouraged to shower and notes he will do so this evening. 12/31: Reports chronic severe depression. Latuda increased to 80 mg daily. Encouraged to shower today. 01/02: continue current management and treatment plan. 01/03: continue current management and treatment plan. 01/04: continue current management and treatment plan. Plan: Admit to M5. CV 15 minutes check. Increase Latuda to 40 mg for continued bipolar depression; will titrate back to 120 mg which may have helped in the past Diagnostics as needed. Collateral contact. Continue remainder of regime. Encouraged full milieu. Discharge planning. Failed medication trials: ECT: 7 sessions and then patient became delirious Depakote Zoloft, Paxil, Effexor Wellbutrin Lamictal 400 mg; said it helped initially for awhile but then seemed to stop helping [place]: Does not remember Latuda 120 mg says it possibly helped Oxcarbazepine 300 mg says did not help Reason for continued inpatient stay Substantial Risk for: inability to function and rapid decompensation Time Spent With Patient Time: Total time managing care of this patient today ____ minutes.
[2025-01-04] MEDS: Lurasidone HCl 40 MG TABLET 120 MG PO (17:34)
[2025-01-04 20:00] VITALS: BP 111/67; PULSE 83; RESP 16; TEMP 36.5; O2SAT 97
[2025-01-04] MEDS: Atorvastatin Calcium 20 MG TABLET PO (20:49)
[2025-01-05 08:00] VITALS: BP 113/66; PULSE 69; RESP 16; TEMP 36.4; O2SAT 98
[2025-01-05] MEDS: Aspirin Enteric Coated 81 MG TABLET.DR PO (09:32)
[2025-01-05] MEDS: Folic Acid 1 MG TABLET PO (09:32)
[2025-01-05] MEDS: Lurasidone HCl 40 MG TABLET 120 MG PO (17:30)
[2025-01-05 19:50] VITALS: BP 104/73; PULSE 85; RESP 18; TEMP 36.5; O2SAT 98
[2025-01-05] MEDS: Atorvastatin Calcium 20 MG TABLET PO (20:55)
--- NOTE | 2025-01-05 23:33 | P.PNPSI_ITS ---
Subjective Subjective Date of Service: 01/05/25 Reason For Visit: Bipolar II disorder,Current episode Depressed Diagnostics Vital Signs (24Hr): Vital Signs - 24 hr 01/05/25 08:00 01/05/25 19:50 Temperature 97.6 F 97.7 F Pulse Rate 69 85 Respiratory Rate 16 18 Blood Pressure 113/66 104/73 Pulse Oximetry 98 98 Oxygen Delivery Method Room Air Room Air Labs 12/24/24 13:48 Medications Medications Current Medications Acetaminophen (Acetaminophen 325 Mg Tablet) 650 mg PO Q6H PRN PRN Reason: Headache/Pain, Scale 1-10 Al Hydroxide/Mg Hydroxide (Magnesium Hydrox/Alum Hydrox 30 Ml Oral.Susp) 30 ml PO Q6H PRN PRN Reason: Heartburn/Nausea Aspirin (Aspirin Enteric Coated 81 Mg Tablet.Dr) 81 mg PO DAILY [facility] Last Admin: 01/05/25 09:32 Dose: 81 mg Atorvastatin Calcium (Atorvastatin Calcium 20 Mg Tablet) 20 mg PO BEDTIME [facility] Last Admin: 01/05/25 20:55 Dose: 20 mg Folic Acid (Folic Acid 1 Mg Tablet) 1 mg PO DAILY [facility] Last Admin: 01/05/25 09:32 Dose: 1 mg Hydroxyzine HCl (Hydroxyzine Hcl 25 Mg Tablet) 25 mg PO Q6H PRN PRN Reason: mild anxiety Lurasidone HCl (Lurasidone Hcl 40 Mg Tablet) 120 mg PO DAILY@1700 [facility] Last Admin: 01/05/25 17:30 Dose: 120 mg Magnesium Hydroxide (Milk Of Magnesia 30 Ml Oral.Susp) 30 ml PO DAILY PRN PRN Reason: Constipation Nicotine Polacrilex (Nicotine Polacrilex 2 Mg Gum) 4 mg BUCCAL Q2H PRN PRN Reason: Nicotine Cravings Trazodone HCl (Trazodone Hcl 50 Mg Tablet) 50 mg PO BEDTIME MRX1 PRN PRN Reason: Insomnia Allergies Allergies Allergy/AdvReac Type Severity Reaction Status Date / Time pumpkin Allergy Unknown Unknown Verified 12/24/24 12:26 Assessment & Plan Assessment & Plan (1) Bipolar disorder: Status: Acute Code(s): F31.9 - Bipolar disorder, unspecified (2) Nausea: Status: Acute Code(s): R11.0 - Nausea Plan Plan HPI: Patient is a direct admit from [facility] for SI with a hx of MDD. He presents disheveled and malodorous. He is calm and cooperative with admission. He is delayed in answering questions and stares straight ahead while thinking. Skin check performed, no contraband, his skin is intact with PVD. He reports living at [facility] since 2021. He reports feeling kind of safe there and spends his days trying to sleep. He states he has taken the bus before but not in a while. He reports being homeless since 2008. He is currently unemployed and has not worked in years. His last job was at the [employer] in 2019. He reports not having any family or friends he speaks too. His father lives in [facility] and he hasnt spoken to him in years. There is no event that brought on his feeling of suicide, his thoughts have just been getting worse. He has a hx of SI and has taken drain-o in the past. He states he does not currently have a plan. His last IPLOC was at [place] in October where he spent one month for SI. That was also the last time he took any medications. He is open to this experience and states he is willing to go to groups and take prescribed medications. He reports a history of medical and physical restraints but is vague and states that it was a long time ago. He is safe on unit, signed a CV and is on 15 minute checks. He denies SI/HI/AVH. He plans to attend groups later today. He notes that he was on Latuda 120 mg daily and oxcarbazepine 300 mg daily until he was discharged at [facility] in October 2024. He notes that he stopped taking the medications without a reason. Reports history of anxiety, depression, and bipolar disorder. He denies alcohol or drug use. Formulation/Clinical reasoning: Patient's SI is likely related to severe depressive symptoms from untreated bipolar disorder. Psychomotor retardation due to sluggish thinking and speech also account for the patient's depressive state. He denies recent hypomania or leti symptoms. He stopped taking Latuda and oxcarbazepine in October 2024 with no apparent reason. Will start Latuda the 20 mg daily to target bipolar symptoms. Hospital course: Latuda 20 mg daily ordered for bipolar symptoms and Zofran ordered for nausea; advised to take as prescribed. Instructed on the risks, benefits, and potential adverse reactions of the medication. Verbalized understanding and agreed with the plan. 12/26: Patient remains isolative, staying in bed and keeping himself most of the time. Patient has flat affect and appears abulic and though denies depression says he has no emotions either way. -increase Latuda to 40 mg for bipolar depression -will review medication history; ECT could be a consideration 12/27 Patient pushed himself to go out in the milieu today, which is a 1st during this admission. Said he was trying to do what he can to push back against depression. Patient and keno writer/runner discussed history of illness. He agrees that he is depressed but he says he does not feel sad. He reiterated that does not have feelings either way. However once starting to talk about history of treatment, patient got quite irritable and frustrated, and agreed that he is now feeling something. He reviewed multiple medication trial failures. Patient said at several points in the past he has just stopped taking medications, as recently with Latuda. In his frustration he yelled out I want to ... I just want to be ... And then climbed back in bed. That said, he said it was fine for keno writer/runner to manage or change his medication regimen as keno writer/runner thought best and did not need to be consulted prior. Discussed history of manic episodes: Patient had a manic episode in 2022 which lasted for over a month during which time he had no sleep, excessive energy, made lots of bad choices... With racing mind and hyperverbal 12/29: Increase Latuda to 60 mg. Impression/clinical reasoning: Patient has bipolar depression. Numerous failed medication trials including not tolerating ECT; however seems to have had some benefit from Latuda, Lamictal and maybe even lithium and it maybe that medications are partially helpful only he thus needs several medications to be effective. Patient has not tried Vraylar, ketamine or any TCA's -will titrate Latuda back to 120 mg since patient thinks it helped -may very well restart Lamictal; however since Lamictal can take quite awhile to titrate, will also consider Vraylar which has not been tried 12/30: Continue regime/plan. Encouraged to shower and notes he will do so this evening. 12/31: Reports chronic severe depression. Latuda increased to 80 mg daily. Encouraged to shower today. 5/23: pt says he's starting to feel a little better; no SI and more optimistic. Agrees to further titrate Latuda to 120mg; discussed other med options but patient wants to remain on just latuda for now. 01/02: continue current management and treatment plan. 01/03: continue current management and treatment plan. 01/04: continue current management and treatment plan. Plan: Admit to M5. CV 15 minutes check. Increase Latuda to 40 mg for continued bipolar depression; will titrate back to 120 mg which may have helped in the past Diagnostics as needed. Collateral contact. Continue remainder of regime. Encouraged full milieu. Discharge planning. Failed medication trials: ECT: 7 sessions and then patient became delirious Depakote Zoloft, Paxil, Effexor Wellbutrin Lamictal 400 mg; said it helped initially for awhile but then seemed to stop helping [place]: Does not remember Latuda 120 mg says it possibly helped Oxcarbazepine 300 mg says did not help Time Spent With Patient Time: Total time managing care of this patient today ____ minutes.
[2025-01-06 08:00] VITALS: BP 131/79; PULSE 74; RESP 16; TEMP 36.8; O2SAT 96
[2025-01-06] MEDS: Aspirin Enteric Coated 81 MG TABLET.DR PO (08:26)
[2025-01-06] MEDS: Folic Acid 1 MG TABLET PO (08:26)
[2025-01-06] MEDS: Lurasidone HCl 40 MG TABLET 120 MG PO (17:33)
[2025-01-06 19:57] VITALS: BP 113/71; PULSE 82; TEMP 36.9; O2SAT 98
[2025-01-06] MEDS: Atorvastatin Calcium 20 MG TABLET PO (20:38)
[2025-01-07 08:00] VITALS: BP 111/59; PULSE 64; RESP 16; TEMP 37; O2SAT 96
[2025-01-07] MEDS: Folic Acid 1 MG TABLET PO (09:44)
[2025-01-07] MEDS: Aspirin Enteric Coated 81 MG TABLET.DR PO (09:44)
--- NOTE | 2025-01-07 10:00 | HO.PSYCHPN ---
Subjective Subjective Date of Service: 01/06/25 Reason For Visit: Bipolar II disorder,Current episode Depressed Interim History: late entry note for pt seen on 01/06/25 Diagnostics Vital Signs (24Hr): Vital Signs - 24 hr 01/06/25 19:57 Temperature 98.5 F Pulse Rate 82 Blood Pressure 113/71 Pulse Oximetry 98 Oxygen Delivery Method Room Air Labs 12/24/24 13:48 Medications Medications Current Medications Acetaminophen (Acetaminophen 325 Mg Tablet) 650 mg PO Q6H PRN PRN Reason: Headache/Pain, Scale 1-10 Al Hydroxide/Mg Hydroxide (Magnesium Hydrox/Alum Hydrox 30 Ml Oral.Susp) 30 ml PO Q6H PRN PRN Reason: Heartburn/Nausea Aspirin (Aspirin Enteric Coated 81 Mg Tablet.Dr) 81 mg PO DAILY [facility] Last Admin: 01/07/25 09:44 Dose: 81 mg Atorvastatin Calcium (Atorvastatin Calcium 20 Mg Tablet) 20 mg PO BEDTIME [facility] Last Admin: 01/06/25 20:38 Dose: 20 mg Folic Acid (Folic Acid 1 Mg Tablet) 1 mg PO DAILY [facility] Last Admin: 01/07/25 09:44 Dose: 1 mg Hydroxyzine HCl (Hydroxyzine Hcl 25 Mg Tablet) 25 mg PO Q6H PRN PRN Reason: mild anxiety Lurasidone HCl (Lurasidone Hcl 40 Mg Tablet) 120 mg PO DAILY@1700 [facility] Last Admin: 01/06/25 17:33 Dose: 120 mg Magnesium Hydroxide (Milk Of Magnesia 30 Ml Oral.Susp) 30 ml PO DAILY PRN PRN Reason: Constipation Nicotine Polacrilex (Nicotine Polacrilex 2 Mg Gum) 4 mg BUCCAL Q2H PRN PRN Reason: Nicotine Cravings Trazodone HCl (Trazodone Hcl 50 Mg Tablet) 50 mg PO BEDTIME MRX1 PRN PRN Reason: Insomnia Allergies Allergies Allergy/AdvReac Type Severity Reaction Status Date / Time pumpkin Allergy Unknown Unknown Verified 12/24/24 12:26 Assessment & Plan Assessment & Plan (1) Bipolar disorder: Status: Acute Code(s): F31.9 - Bipolar disorder, unspecified (2) Nausea: Status: Acute Code(s): R11.0 - Nausea Plan Plan HPI: Patient is a direct admit from [facility] for SI with a hx of MDD. He presents disheveled and malodorous. He is calm and cooperative with admission. He is delayed in answering questions and stares straight ahead while thinking. Skin check performed, no contraband, his skin is intact with PVD. He reports living at [facility] since 2021. He reports feeling kind of safe there and spends his days trying to sleep. He states he has taken the bus before but not in a while. He reports being homeless since 2008. He is currently unemployed and has not worked in years. His last job was at the [employer] in 2019. He reports not having any family or friends he speaks too. His father lives in [facility] and he hasnt spoken to him in years. There is no event that brought on his feeling of suicide, his thoughts have just been getting worse. He has a hx of SI and has taken drain-o in the past. He states he does not currently have a plan. His last IPLOC was at [place] in October where he spent one month for SI. That was also the last time he took any medications. He is open to this experience and states he is willing to go to groups and take prescribed medications. He reports a history of medical and physical restraints but is vague and states that it was a long time ago. He is safe on unit, signed a CV and is on 15 minute checks. He denies SI/HI/AVH. He plans to attend groups later today. He notes that he was on Latuda 120 mg daily and oxcarbazepine 300 mg daily until he was discharged at [facility] in October 2024. He notes that he stopped taking the medications without a reason. Reports history of anxiety, depression, and bipolar disorder. He denies alcohol or drug use. Formulation/Clinical reasoning: Patient's SI is likely related to severe depressive symptoms from untreated bipolar disorder. Psychomotor retardation due to sluggish thinking and speech also account for the patient's depressive state. He denies recent hypomania or leti symptoms. He stopped taking Latuda and oxcarbazepine in October 2024 with no apparent reason. Will start Latuda the 20 mg daily to target bipolar symptoms. Hospital course: Latuda 20 mg daily ordered for bipolar symptoms and Zofran ordered for nausea; advised to take as prescribed. Instructed on the risks, benefits, and potential adverse reactions of the medication. Verbalized understanding and agreed with the plan. 12/26: Patient remains isolative, staying in bed and keeping himself most of the time. Patient has flat affect and appears abulic and though denies depression says he has no emotions either way. -increase Latuda to 40 mg for bipolar depression -will review medication history; ECT could be a consideration 12/27 Patient pushed himself to go out in the milieu today, which is a 1st during this admission. Said he was trying to do what he can to push back against depression. Patient and automobile service writer discussed history of illness. He agrees that he is depressed but he says he does not feel sad. He reiterated that does not have feelings either way. However once starting to talk about history of treatment, patient got quite irritable and frustrated, and agreed that he is now feeling something. He reviewed multiple medication trial failures. Patient said at several points in the past he has just stopped taking medications, as recently with Latuda. In his frustration he yelled out I want to ... I just want to be ... And then climbed back in bed. That said, he said it was fine for automobile service writer to manage or change his medication regimen as automobile service writer thought best and did not need to be consulted prior. Discussed history of manic episodes: Patient had a manic episode in 2022 which lasted for over a month during which time he had no sleep, excessive energy, made lots of bad choices... With racing mind and hyperverbal 12/29: Increase Latuda to 60 mg. Impression/clinical reasoning: Patient has bipolar depression. Numerous failed medication trials including not tolerating ECT; however seems to have had some benefit from Latuda, Lamictal and maybe even lithium and it maybe that medications are partially helpful only he thus needs several medications to be effective. Patient has not tried Vraylar, ketamine or any TCA's -will titrate Latuda back to 120 mg since patient thinks it helped -may very well restart Lamictal; however since Lamictal can take quite awhile to titrate, will also consider Vraylar which has not been tried 12/30: Continue regime/plan. Encouraged to shower and notes he will do so this evening. 12/31: Reports chronic severe depression. Latuda increased to 80 mg daily. Encouraged to shower today. 01/01: pt says he's starting to feel a little better; no SI and more optimistic. Agrees to further titrate Latuda to 120mg; discussed other med options but patient wants to remain on just latuda for now. Plan: Admit to M5. CV 15 minutes check. Increase Latuda to 40 mg for continued bipolar depression; will titrate back to 120 mg which may have helped in the past Diagnostics as needed. Collateral contact. Continue remainder of regime. Encouraged full milieu. Discharge planning. Failed medication trials: ECT: 7 sessions and then patient became delirious Depakote Zoloft, Paxil, Effexor Wellbutrin Lamictal 400 mg; said it helped initially for awhile but then seemed to stop helping [place]: Does not remember Latuda 120 mg says it possibly helped Oxcarbazepine 300 mg says did not help Time Spent With Patient Time: Total time managing care of this patient today ____ minutes.
[2025-01-07] MEDS: Lurasidone HCl 40 MG TABLET 120 MG PO (17:25)
[2025-01-07 20:00] VITALS: BP 110/74; PULSE 74; TEMP 36.5; O2SAT 99
[2025-01-07] MEDS: Atorvastatin Calcium 20 MG TABLET PO (21:15)
--- NOTE | 2025-01-07 22:38 | P.PNPSI_ITS ---
Subjective Subjective Date of Service: 01/07/25 Reason For Visit: Bipolar II disorder,Current episode Depressed Diagnostics Vital Signs (24Hr): Vital Signs - 24 hr 01/07/25 08:00 01/07/25 20:00 Temperature 98.6 F 97.7 F Pulse Rate 64 74 Respiratory Rate 16 Blood Pressure 111/59 L 110/74 Pulse Oximetry 96 99 Oxygen Delivery Method Room Air Room Air Labs 12/24/24 13:48 Medications Medications Current Medications Acetaminophen (Acetaminophen 325 Mg Tablet) 650 mg PO Q6H PRN PRN Reason: Headache/Pain, Scale 1-10 Al Hydroxide/Mg Hydroxide (Magnesium Hydrox/Alum Hydrox 30 Ml Oral.Susp) 30 ml PO Q6H PRN PRN Reason: Heartburn/Nausea Aspirin (Aspirin Enteric Coated 81 Mg Tablet.Dr) 81 mg PO DAILY [facility] Last Admin: 01/07/25 09:44 Dose: 81 mg Atorvastatin Calcium (Atorvastatin Calcium 20 Mg Tablet) 20 mg PO BEDTIME [facility] Last Admin: 01/07/25 21:15 Dose: 20 mg Folic Acid (Folic Acid 1 Mg Tablet) 1 mg PO DAILY [facility] Last Admin: 01/07/25 09:44 Dose: 1 mg Hydroxyzine HCl (Hydroxyzine Hcl 25 Mg Tablet) 25 mg PO Q6H PRN PRN Reason: mild anxiety Lurasidone HCl (Lurasidone Hcl 40 Mg Tablet) 120 mg PO DAILY@1700 [facility] Last Admin: 01/07/25 17:25 Dose: 120 mg Magnesium Hydroxide (Milk Of Magnesia 30 Ml Oral.Susp) 30 ml PO DAILY PRN PRN Reason: Constipation Nicotine Polacrilex (Nicotine Polacrilex 2 Mg Gum) 4 mg BUCCAL Q2H PRN PRN Reason: Nicotine Cravings Trazodone HCl (Trazodone Hcl 50 Mg Tablet) 50 mg PO BEDTIME MRX1 PRN PRN Reason: Insomnia Allergies Allergies Allergy/AdvReac Type Severity Reaction Status Date / Time pumpkin Allergy Unknown Unknown Verified 12/24/24 12:26 Assessment & Plan Assessment & Plan (1) Bipolar disorder: Status: Acute Code(s): F31.9 - Bipolar disorder, unspecified (2) Nausea: Status: Acute Code(s): R11.0 - Nausea Plan Plan HPI: Patient is a direct admit from [facility] for SI with a hx of MDD. He presents disheveled and malodorous. He is calm and cooperative with admission. He is delayed in answering questions and stares straight ahead while thinking. Skin check performed, no contraband, his skin is intact with PVD. He reports living at [facility] since 2021. He reports feeling kind of safe there and spends his days trying to sleep. He states he has taken the bus before but not in a while. He reports being homeless since 2008. He is currently unemployed and has not worked in years. His last job was at the [employer] in 2019. He reports not having any family or friends he speaks too. His father lives in [facility] and he hasnt spoken to him in years. There is no event that brought on his feeling of suicide, his thoughts have just been getting worse. He has a hx of SI and has taken drain-o in the past. He states he does not currently have a plan. His last IPLOC was at [facility] in October where he spent one month for SI. That was also the last time he took any medications. He is open to this experience and states he is willing to go to groups and take prescribed medications. He reports a history of medical and physical restraints but is vague and states that it was a long time ago. He is safe on unit, signed a CV and is on 15 minute checks. He denies SI/HI/AVH. He plans to attend groups later today. He notes that he was on Latuda 120 mg daily and oxcarbazepine 300 mg daily until he was discharged at [facility] in October 2024. He notes that he stopped taking the medications without a reason. Reports history of anxiety, depression, and bipolar disorder. He denies alcohol or drug use. Formulation/Clinical reasoning: Patient's SI is likely related to severe depressive symptoms from untreated bipolar disorder. Psychomotor retardation due to sluggish thinking and speech also account for the patient's depressive state. He denies recent hypomania or leti symptoms. He stopped taking Latuda and oxcarbazepine in October 2024 with no apparent reason. Will start Latuda the 20 mg daily to target bipolar symptoms. Hospital course: Latuda 20 mg daily ordered for bipolar symptoms and Zofran ordered for nausea; advised to take as prescribed. Instructed on the risks, benefits, and potential adverse reactions of the medication. Verbalized understanding and agreed with the plan. 12/26: Patient remains isolative, staying in bed and keeping himself most of the time. Patient has flat affect and appears abulic and though denies depression says he has no emotions either way. -increase Latuda to 40 mg for bipolar depression -will review medication history; ECT could be a consideration 12/27 Patient pushed himself to go out in the milieu today, which is a 1st during this admission. Said he was trying to do what he can to push back against depression. Patient and sports writer discussed history of illness. He agrees that he is depressed but he says he does not feel sad. He reiterated that does not have feelings either way. However once starting to talk about history of treatment, patient got quite irritable and frustrated, and agreed that he is now feeling something. He reviewed multiple medication trial failures. Patient said at several points in the past he has just stopped taking medications, as recently with Latuda. In his frustration he yelled out I want to ... I just want to be ... And then climbed back in bed. That said, he said it was fine for sports writer to manage or change his medication regimen as sports writer thought best and did not need to be consulted prior. Discussed history of manic episodes: Patient had a manic episode in 2022 which lasted for over a month during which time he had no sleep, excessive energy, made lots of bad choices... With racing mind and hyperverbal 12/29: Increase Latuda to 60 mg. Impression/clinical reasoning: Patient has bipolar depression. Numerous failed medication trials including not tolerating ECT; however seems to have had some benefit from Latuda, Lamictal and maybe even lithium and it maybe that medications are partially helpful only he thus needs several medications to be effective. Patient has not tried Vraylar, ketamine or any TCA's -will titrate Latuda back to 120 mg since patient thinks it helped -may very well restart Lamictal; however since Lamictal can take quite awhile to titrate, will also consider Vraylar which has not been tried 12/30: Continue regime/plan. Encouraged to shower and notes he will do so this evening. 12/31: Reports chronic severe depression. Latuda increased to 80 mg daily. Encouraged to shower today. 5/23: pt says he's starting to feel a little better; no SI and more optimistic. Agrees to further titrate Latuda to 120mg; discussed other med options but patient wants to remain on just latuda for now. Plan: Admit to [facility]. CV 15 minutes check. Increase Latuda to 40 mg for continued bipolar depression; will titrate back to 120 mg which may have helped in the past Diagnostics as needed. Collateral contact. Continue remainder of regime. Encouraged full milieu. Discharge planning. Failed medication trials: ECT: 7 sessions and then patient became delirious Depakote Zoloft, Paxil, Effexor Wellbutrin Lamictal 400 mg; said it helped initially for awhile but then seemed to stop helping [place]: Does not remember Latuda 120 mg says it possibly helped Oxcarbazepine 300 mg says did not help Time Spent With Patient Time: Total time managing care of this patient today ____ minutes.
[2025-01-08 08:00] VITALS: BP 111/61; PULSE 64; RESP 16; TEMP 37; O2SAT 97
[2025-01-08] MEDS: Aspirin Enteric Coated 81 MG TABLET.DR PO (09:35)
[2025-01-08] MEDS: Folic Acid 1 MG TABLET PO (09:35)
--- NOTE | 2025-01-08 10:35 | P.DS_ITS ---
DS: Providers Provider Date of Service: 01/08/25 Date of admission: 12/23/24 20:58 Date of discharge: 01/08/25 Primary care physician: Humaira Delgado APRN Consults: 12/23/24 21:23 Consult to Hospitalist Routine Comment: Consulting Provider: [facility] Hospitalists Reason For Exam: OSH admission DS: Diagnosis Discharge Diagnosis (1) Bipolar disorder: Status: Acute (2) Nausea: Status: Acute DS: Medications Discharge Medications Home Medications: Previous Rx's ?Medication ?Instructions ?Recorded aspirin 81 mg tablet,delayed 81 mg PO DAILY 30 days #30 tabs 01/08/25 release atorvastatin 20 mg tablet 20 mg PO BEDTIME 30 days #30 tabs 01/08/25 lurasidone 120 mg tablet 120 mg PO DAILY@1700 30 days #30 01/08/25 tabs DS: Summary Time Spent with Patient Time attestation: Total time managing care of this patient today ____ minutes. Discharge Plan Discharge Anticipated Discharge Date/Time: 01/08/25 10:35 Patient Disposition: Senior Living Discharge Diagnosis: Bipolar I disorder, most recent episode depression in partial remission Referrals: [facility] [Other] - 1 Week (fax- [phone] Visiting Nurse will be out to see you at your home on 01/09/25 ) Michael Machado: [facility] (Therapist) [Other] - 01/09/25 1:00 pm (Hospital discharge appointment with outpatient therapist at his office at [facility].) Stacy Megn: [facility] (psychiatry) [Other] - 02/03/25 10:30 am (Hospital discharge appointment with psychiatric medication provider Appointment in person at [facility] ) [employer] [facility] [Other] - 1 Week (Referral to [facility] program will follow-up with you after discharge ) Humaira Delgado APRN [Primary Care Provider] - 1 Week Discharge Medications: New atorvastatin 20 mg Tablet 20 mg PO BEDTIME 30 Days Qty: 30 0RF aspirin 81 mg Tablet,Delayed Release (Dr/Ec) 81 mg PO DAILY 30 Days Qty: 30 0RF lurasidone 120 mg tablet 120 mg PO DAILY@1700 30 Days Qty: 30 0RF Rx Instructions: must administer with food (at least 350 calories) Discharge Orders: Discharge Order (Routine); Ordered 01/08/25 Ordered By: Sal Veras Diet: Regular diet Activity on Discharge: As tolerated Stand Alone Forms: Patient Portal Discharge page Print Language: Polish Care Plan Goals: Maintain mood and safe behaviors Take medications as prescribed Practice coping skills Continue with outpatient providers and reach out to them as needed Health Concerns: Mood stability and behaviors Hyperlidemia Plan of Treatment: Follow up with your PCP, psychiatric provider and other outpatient providers regarding above concerns Take medications as prescribed Assessment: Risk assessment at time of discharge:? Patient was interviewed prior to discharge and found to be fully oriented and without any SI or HI. Patient has improved insight and judgment and wants to continue treatment. Patient is not in imminent risk of harm to self or others and has a safety plan that includes presenting to the closest ER or calling 911 if feeling unsafe.? Patient has been observed closely by nursing and unit staff throughout admission; patient has not engaged in any behaviors that suggest dangerousness to self or others and has demonstrated appropriate behaviors and impulse control
== END 2025-01-08 11:45 | disposition home or self-care (01) | DRG 753 ==
PROVIDERS: Nurse Practitioner Family; Psychiatry & Neurology Psychiatry; Admitting Provider Psychiatry & Neurology Psychiatry; PCP Nurse Practitioner; Visit Provider Clinical Nurse Specialist Psychiatric/Mental Health, Adult
DX: F31.9 Bipolar disorder, unspecified (principal); R45.851 Suicidal ideations; G47.33 Obstructive sleep apnea (adult) (pediatric); N39.0 Urinary tract infection, site not specified; Z59.02 Unsheltered homelessness; Z79.82 Long term (current) use of aspirin; Z79.899 Other long term (current) drug therapy
CPT/HCPCS: 36415; 80061; 82565; 82607; 82746; 83036; 84439; 84443

== ENCOUNTER → 2024-12-23 20:58 | Outpatient (BNV) | payer MEDICAID, SELFPAY | PROVIDERS: Admitting Provider Psychiatry & Neurology Psychiatry; PCP Nurse Practitioner; Visit Provider Nurse Practitioner Family | DX: N39.0 Urinary tract infection, site not specified (principal) | CPT/HCPCS: 99499 ==

== ENCOUNTER → 2024-12-23 20:58 | Outpatient (BNV) | payer OTHER, SELFPAY | PROVIDERS: Admitting Provider Psychiatry & Neurology Psychiatry; PCP Nurse Practitioner; Visit Provider Nurse Practitioner Family | DX: F31.4 Bipolar disorder, current episode depressed, severe, without psychotic features (principal); R11.0 Nausea | CPT/HCPCS: 99231; 99232 ==

== ENCOUNTER 2025-03-26 13:52 | Inpatient (IN) | payer OTHER, SELFPAY ==
--- OUTSIDE RECORDS SUMMARY | 2025-03-25 10:25 | XMS_ITS ---
Author Organization [facility] Address [address], [place] [id number] Care Team Providers Care Pipe Stem Sawyer Name Role Phone Joshuaolivier Claudinemaia Primary Care Provider REASON FOR VISIT D/C mir[facility]ista Medications Medication SIG (Take, Route, Frequency, Duration) Notes Start Date End Date Status Aspirin EC 81 mg 1 tab(s) orally once a day for 90 days pls deliver Active OLANZapine 15 mg 1 tab(s) orally once a day Not-Taking lamoTRIgine 100 mg 1 tab(s) orally daily at bedtime Active Acetaminophen Extra Strength Gelcaps 500 mg 2 tab(s) orally every 8 hours for 90 days Not-Taking CeleXA 40 mg 1 tab(s) orally once a day total 40mg 03/29/2021 Not-Taking pyridoxine 50 mg 1 tab(s) orally once a day for 90 days Not-Taking atorvastatin 20 mg 1 tab(s) orally once a day for 90 days at bedtime pls deliver Active thiamine 100 mg 1 tab(s) orally once a day for 90 days pls deliver 07/27/2024 Not-Taking cyanocobalamin 100 mcg 1/2 tab orally once a day Active Latuda 60 mg 2 tabs orally once a day every evening - take with dinner Active pantoprazole 40 mg 1 tab(s) orally once a day for 90 days Not-Taking Voltaren Topical 1% 1 drop(s) applied topically 4 times a day as needed for left leg pain for 30 days Not-Taking Vitamin D3 10 mcg 1 tab(s) orally once a day Active desvenlafaxine (as succinate) 100 mg 1 tab(s) orally once a day Active cyanocobalamin 1000 mcg/mL as directed intramuscularly once a month Active hydrOXYzine pamoate 50 mg 2 cap(s) orally every 4 hours As needed 03/29/2021 Active Ferrous Sulfate 324 mg TAKE 2 TABLETS (648MG) BY MOUTH DAILY for 90 days Not-Taking Encounters Encounter Location Date Provider Diagnosis [address] [id number] 03/25/2025 Humaira Delgado Plan Of Treatment Next Appt Details Provider Name:Humaira vail, 05/05/2025 01:00:00 PM, [address] [place] [address], [id number], Progress Notes * Kamar ROMERODOB: [birth year] (49 yo M)Acc No.[id number]:03/25/2025 Patient: Melyssa STACIARIVASKamar :1975 A ge:49 Y S ex:Male Address:[address] [place] [address] ( currently in [facility] [address] Subjective: * Chief Complaints: * D /C miravista * Medical History: * Surgical History: * Hospitalization/Major Diagno stic Procedure: * Medications: T akingcyanocobalamin 1000 mcg/mL solution as directed intramuscularly once a month Vitamin D3 10 mcg tablet 1 tab(s) orally once a day desvenlafaxine (as succinate) 100 mg tablet, extended release 1 tab(s) orally once a day cyanocobalamin 100 mcg tablet 1/2 tab orally once a day Latuda 60 mg tablet 2 tabs orally once a day every evening - take with dinneratorvastatin 20 mg tablet 1 tab(s) orally once a day at bedtime, Notes to Pharmacist: pls deliverAspirin EC 81 mg delayed release tablet 1 tab(s) orally once a day , Notes to Pharmacist: pls deliverlamoTRIgine 100 mg tablet 1 tab(s) orally daily at bedtimehydrOXYzine pamoate 50 mg capsule 2 cap(s) orally every 4 hours As neededTaking cyanocobalamin 1000 mcg/mL solution as directed intramuscularly once a month Taking Vitamin D3 10 mcg tablet 1 tab(s) orally once a day Taking desvenlafaxine (as succinate) 100 mg tablet, extended release 1 tab(s) orally once a day Taking cyanocobalamin 100 mcg tablet 1/2 tab orally once a day Taking Latuda 60 mg tablet 2 tabs orally once a day every evening - take with dinnerTaking atorvastatin 20 mg tablet 1 tab(s) orally once a day at bedtime, Notes to Pharmacist: pls deliverTaking Aspirin EC 81 mg delayed release tablet 1 tab(s) orally once a day , Notes to Pharmacist: pls deliverTaking lamoTRIgine 100 mg tablet 1 tab(s) orally daily at bedtimeTaking hydrOXYzine pamoate 50 mg capsule 2 cap(s) orally every 4 hours As neededNot-Taking/PRNpyridoxine 50 mg tablet 1 tab(s) orally once a day thiamine 100 mg tablet 1 tab(s) orally once a day , Notes to Pharmacist: pls deliverOLANZapine 15 mg tablet 1 tab(s) orally once a day Acetaminophen Extra Strength Gelcaps 500 mg tablet 2 tab(s) orally every 8 hours CeleXA 40 mg tablet 1 tab(s) orally once a day , Notes to Pharmacist: total 40mgFerrous Sulfate 324 mg delayed release tablet TAKE 2 TABLETS (648MG) BY MOUTH DAILY pantoprazole 40 mg delayed release tablet 1 tab(s) orally once a day Voltaren Topical 1% gel 1 drop(s) applied topically 4 times a day as needed for left leg pain Medication List reviewed and reconciled with the patientNot-Taking/PRN pyridoxine 50 mg tablet 1 tab(s) orally once a day Not-Taking/PRN thiamine 100 mg tablet 1 tab(s) orally once a day , Notes to Pharmacist: pls deliverNot-Taking/PRN OLANZapine 15 mg tablet 1 tab(s) orally once a day Not-Taking/PRN Acetaminophen Extra Strength Gelcaps 500 mg tablet 2 tab(s) orally every 8 hours Not-Taking/PRN CeleXA 40 mg tablet 1 tab(s) orally once a day , Notes to Pharmacist: total 40mgNot-Taking/PRN Ferrous Sulfate 324 mg delayed release tablet TAKE 2 TABLETS (648MG) BY MOUTH DAILY Not-Taking/PRN pantoprazole 40 mg delayed release tablet 1 tab(s) orally once a day Not-Taking/PRN Voltaren Topical 1% gel 1 drop(s) applied topically 4 times a day as needed for left leg pain Medication List reviewed and reconciled with the patient Objective: * Vitals: * Physical Examination: Assessment: Plan: * Treatment: * Procedure Codes: * true * Date: Generated for Jessica khalil/Miguel/Juan on: 0 03/26/2025 03:50 PM EDT
--- NOTE | 2025-03-26 | ECG_ITS ---
Test Reason : MED CLEARANCE Blood Pressure : */* mmHG Vent. Rate : 76 BPM Atrial Rate : 76 BPM P-R Int : 128 ms QRS Dur : 98 ms QT Int : 404 ms P-R-T Axes : 54 38 20 degrees QTcB Int : 454 ms Normal sinus rhythm Incomplete right bundle branch block Borderline ECG No previous ECGs available Referred By: Generic ED Physician Electronically Signed By: Jv Gil
--- NOTE | ~2025-03-26 | CT_ITS ---
EXAMINATION: CT HEAD WITHOUT CONTRAST CLINICAL INFORMATION: pre op ect hx ? cva COMPARISON: None available. TECHNIQUE: Contiguous axial imaging was performed from the skull base to vertex without intravenous administration of contrast. This CT examination was performed using dose optimization techniques as appropriate, variously including the following: *Automated exposure control *Adjustment of mA and/or kV according to patient size (this includes techniques or standardized protocols for targeted exams where dose is matched to indication/reason for exam; i.e. extremities or head) *Use of iterative reconstruction technique DLP: 940 mGy-cm FINDINGS: No acute intracranial hemorrhage, mass effect, midline shift, hydrocephalus or herniation. Bunch-white matter differentiation is normal. Posterior cranial fossa contents demonstrated no gross mass effect or acute hemorrhage. Normal position of the cerebellar tonsils. Sellar/suprasellar region demonstrated no gross masses. Prominence of the extra-axial CSF sulci and ventricles involving mostly the frontotemporal lobes. Polypoid mucosal thickening, maxillary sinuses. Mucosal thickening, frontal sinuses and ethmoid air cells. No gross air-fluid levels. Tympanic cavities and mastoid air cells are aerated. The eyeballs are intact. No gross masses in the intraconal or extraconal compartments of the orbits. CT/CT head/brain wo IV con IMPRESSION: No acute intracranial hemorrhage. Bifrontal bitemporal lobes atrophy. Electronically signed by: Roque Guillen MD 04/06/2025 02:15 PM EDT
[2025-03-26 14:15] VITALS: BP 132/78; BP 99/66; PULSE 90; PULSE 92; RESP 14; TEMP 36.4; O2SAT 100; O2SAT 99; BMI 31.0
[2025-03-26 14:52] LABS: Appearance Urine Cloudy; Glucose Urine UA Negative (Negative); PH 5.5 (5.0-9.0); Specific Gravity - Urine 1.015 (1.005-1.025); UMIC TRIGGER UACC YES
[2025-03-26 15:00] LABS: Cannabinoid Screen Urine Not Detected (Not Detect)
[2025-03-26 15:52] LABS: Hematocrit 38.3 % (42.0-52.0); Hemoglobin 12.8 g/dl (14.0-18.0); Imm Gran Abs Auto 0.02 X10*3/uL (0.00-0.03); Imm Gran Pct Auto 0.2 % (0.0-0.4); Lymphocytes Absolute Auto 2.9 X10*3/uL (1.2-4.9); MANUAL DIFF FLAG NO; Mean Corpuscular HGB Conc 33.4 g/dl (31.0-36.0); Mean Corpuscular Hemoglobin 29.5 pg (27.0-33.0); Mean Corpuscular Volume 88.2 fL (80.0-98.0); NRBC Abs Auto 0.000 X10*3/uL (0.0-0.012); NRBC Pct Auto 0.0 /100WBC (0.0-0.2); Platelet Count 191 X10*3/uL (160-400); Red Blood Count 4.34 X10*6/uL (4.60-5.80); White Blood Count 9.9 X10*3/uL (4.8-10.8)
[2025-03-26 16:05] LABS: Anion Gap 13 (12-20); Blood Urea Nitrogen 18 mg/dL (9-16); Calcium 9.0 mg/dL (8.4-10.2); Carbon Dioxide 26 mmol/L (22-29); Chloride 103 mmol/L (96-108); Creatinine Clr Calc Pharmacy 65.6; Estimated Glomerular Filt Rate 48; Potassium 4.4 mmol/L (3.3-5.1); Sodium 138 mmol/L (135-145)
[2025-03-26 16:18] LABS: Acetaminophen LAB < 3 mcg/mL (<30); Salicylate < 5.0 mg/dL (15-30)
[2025-03-26 16:30] LABS: Resp Syncy Virus RNA Qual PCR NEGATIVE (Negative); SARS COV2 PCR INHOUSE NEGATIVE (Negative)
--- NOTE | 2025-03-26 16:35 | ED.PSYCH ---
HPI - Psych General Chief Complaint: Psychiatric Symptoms Stated Complaint: SI,FTT,SEC 12 PER EMS Time Seen by Provider: 03/26/25 14:34 Source: patient and EMS Mode of arrival: EMS Limitations: no limitations History of Present Illness ED Provider: JEFFREY Heath HPI Narrative: This is a 49-year-old male past medical history significant for bipolar disorder presenting with suicidal ideation with no particular plan feeling this way for awhile. [facility] [place]. Prior to this he was up [facility] and was discharged yesterday. He was seen in the community by PHN wear a Section 12 was filled out. He denies visual, auditory and tactile hallucinations. No drugs, alcohol or tobacco. Denies medical complaints. Related Data Previous Rx's ?Medication ?Instructions ?Recorded aspirin 81 mg tablet,delayed 81 mg PO DAILY 30 days #30 tabs 01/08/25 release atorvastatin 20 mg tablet 20 mg PO BEDTIME #30 tabs 01/08/25 lurasidone 120 mg tablet (Latuda) 120 mg PO DAILY@1700 30 days #30 01/08/25 tabs Allergies Allergy/AdvReac Type Severity Reaction Status Date / Time aspirin Allergy Unknown Unknown Verified 03/26/25 14:20 atorvastatin Allergy Unknown Unknown Verified 03/26/25 14:20 lurasidone (From Latuda) Allergy Unknown Unknown Verified 03/26/25 14:20 pumpkin Allergy Unknown Unknown Verified 12/24/24 12:26 Review of Systems Review of Systems: Yes all other systems are reviewed and are negative PMFSH Past Medical History Attestation statement: The following information was validated with the patient. Source: old records reviewed and nursing notes reviewed Medical History Obesity LUIS (obstructive sleep apnea) HLD (hyperlipidemia) HTN (hypertension) CVA (cerebral vascular accident) Social History Social History Household Members: None and Other Household Members Other:: homeless intermediate Housing: Homeless Do you presently have visiting nurse or other home services: No Patient Tobacco Use Status: Never used Tobacco Second Hand Smoke Exposure: Yes Advance Directives: No Advance Directives Information Provided: No service: No Sexual orientation: Straight/Heterosexual Physical Exam Exam: Exam: Appearance: Alert.? Oriented X3.? No acute distress.? Head: Normocephalic, atraumatic, no step-offs or deformities Eyes: Pupils equal, round and reactive to light.? ENT: Pharynx normal.? Neck: Normal inspection.? Neck supple.? CVS: Normal heart rate and rhythm.? Pulses normal.? Respiratory: No respiratory distress.? Breath sounds normal.? Abdomen: Soft and nontender.? Skin: Skin warm and dry.? Normal skin color.? Normal skin turgor.? Extremities: No lower extremity edema.? No calf ttp. 5/5 strength to bilateral upper and lower extremities Back: No midline tenderness, no C-spine tenderness, full range of motion, no CVA tenderness bilaterally Neuro: Oriented X 3.? No motor deficit.? No sensory deficit. CN 2-12 intact Vital Signs: Vital Signs: Last Vital Signs Temp 97.6 F 03/26/25 14:15 Pulse 90 03/26/25 14:15 Resp 14 03/26/25 14:15 BP 99/66 03/26/25 14:15 Pulse Ox 100 03/26/25 14:15 O2 Del Method Room Air 03/26/25 14:15 BMI result Body Mass Index 31.0 Vital signs state Course Reevaluation(s) Reevaluation #1: CBC with no acute findings needing intervention. Chemistry with baseline elevated BUN and creatinine. Will have him drink fluids. UA without infection. Urine toxicology negative. Salicylates, acetaminophen and ethanol negative. Viral test negative At this time patient will be placed into observation to allow more time to be evaluated by behavioral health. At time observation started patient common cooperative no acute distress Time: 16:38 Reevaluation #2: Will be an inpatient admission here. Physician observation ended at this time Time: 16:45 Medical Decision Making Medical Decision Making [facility] Narrative: 49-year-old male presents with suicidal ideation. On a section 12 by N in the community. Physical exam benign flat affect monotone History and physical exam concerning for bipolar disorder versus depression. Unlikely metabolic derangements. Plan labs, medical clearance and evaluation by care team Differential Diagnosis Differential Diagnoses: The differential diagnosis associated with the presentation includes (History and physical exam concerning for bipolar disorder versus depression. Unlikely metabolic derangements.) Admission/Observation Consideration of admission/observation: Escalation of care including admission/observation considered Consult Healthcare Provider Management of the patient was discussed with: Behavioral Health Provider Lab Data [facility] Lab Attestation statement: I reviewed the patient's lab results. 03/26/25 15:45 03/26/25 15:45 Labs: Lab Results 03/26/25 03/26/25 Range/Units 14:42 15:45 WBC 9.9 (4.8-10.8) X10*3/uL RBC 4.34 L (4.60-5.80) X10*6/uL Hgb 12.8 L (14.0-18.0) g/dl Hct 38.3 L (42.0-52.0) % MCV 88.2 (80.0-98.0) fL MCH 29.5 (27.0-33.0) pg MCHC 33.4 (31.0-36.0) g/dl RDW 14.6 (11.0-16.0) % Plt Count 191 (160-400) X10*3/uL MPV 10.6 (9.4-12.4) fL Immature Gran % (Auto) 0.2 (0.0-0.4) % Neut % (Auto) 61.2 (45-73) % Lymph % (Auto) 28.9 (20-40) % [place] % (Auto) 8.8 (2-11) % Eos % (Auto) 0.7 (0-4) % Baso % (Auto) 0.2 (0-2) % Lymph # (Auto) 2.9 (1.2-4.9) X10*3/uL [place] # (Auto) 0.9 (0.1-1.2) X10*3/uL Eos # (Auto) 0.1 (0.0-0.4) X10*3/uL Baso # (Auto) 0.0 (0.0-0.2) X10*3/uL Abs Immat Gran (auto) 0.02 (0.00-0.03) X10*3/uL Absolute Neuts (auto) 6.1 (2.0-8.3) x10*3/uL Absolute Nucleated RBC 0.000 (0.0-0.012) X10*3/uL Nucleated RBC % (auto) 0.0 (0.0-0.2) /100WBC Sodium 138 (135-145) mmol/L Potassium 4.4 (3.3-5.1) mmol/L Chloride 103 (96-108) mmol/L Carbon Dioxide 26 (22-29) mmol/L Anion Gap 13 (12-20) BUN 18 H (9-16) mg/dL Creatinine 1.55 H (0.5-1.4) mg/dL Estim Creat Clear Calc 65.6 Estimated GFR 48 Random Glucose 93 (60-115) mg/dL Calcium 9.0 (8.4-10.2) mg/dL Urine Color Yellow Urine Appearance Cloudy Urine pH 5.5 (5.0-9.0) Ur Specific [place] 1.015 (1.005-1.025) Urine Protein 30 (1+) H (Neg-Trace) mg/dL Urine Glucose (UA) Negative (Negative) mg/dL Urine Ketones Negative (Negative) mg/dL Urine Blood Negative (Negative) Urine Nitrite Negative (Negative) Ur Leukocyte Esterase Trace H (Negative) Urine RBC 0-2 (0-2) /HPF Urine WBC 0-5 (0-5) /HPF Ur Squamous Epith Cells 6-10 (0-2) /HPF Urine Bacteria None Seen (None Seen) Hyaline Casts >20 (0-2) /LPF Salicylates < 5.0 L (15-30) mg/dL Urine Opiates Screen Not Detected (Not Detect) Ur Buprenorphine Scrn Not Detected (Not Detect) ng/mL Ur Oxycodone Screen Not Detected (Not Detect) ng/mL Urine Methadone Screen Not Detected (Not Detect) ng/mL Urine Fentanyl Screen Not Detected (Not Detect) Acetaminophen < 3 (<30) mcg/mL Ur Barbiturates Screen Not Detected (Not Detect) Ur Phencyclidine Scrn Not Detected (Not Detect) Ur Amphetamines Screen Not Detected (Not Detect) U Benzodiazepines Scrn Not Detected (Not Detect) Urine Cocaine Screen Not Detected (Not Detect) U Marijuana (THC) Screen Not Detected (Not Detect) Ethyl Alcohol < 10 mg/dL Influenza Type A (PCR) NEGATIVE (Negative) Influenza Type B (PCR) NEGATIVE (Negative) RSV RNA Qual (PCR) NEGATIVE (Negative) SARS-CoV-2 RNA (RT-PCR) NEGATIVE (Negative) External Record Review External record reviewed: Inpatient record, Office record, Outpatient record, Prior outpatient labs, Prior outpatient radiology, Primary care record and Outside ED record Chronic Conditions Patient?s care impacted by: Other (Bipolar disorder) Critical Care Time Critical Care Time Critical Care Time: No Discharge Plan Discharge Clinical Impression: Depression, JUVENTINO (acute kidney injury) Patient Disposition: Admitted As Inpatient Print Language: Marshallese
[2025-03-26 20:17] VITALS: BP 108/65; PULSE 88; RESP 16; TEMP 36.2; O2SAT 100
--- NOTE | 2025-03-26 20:23 | PC.NURSE ---
Assumed care of patient at 1845, patient is calm and cooperative, offering no complaints to this RN, patient is aware of plan of care for inpatient admission
[2025-03-26 23:14] VITALS: BMI 31.5
[2025-03-26 23:16] VITALS: BP 102/72; PULSE 74; RESP 18; TEMP 36.3; O2SAT 99
--- NOTE | 2025-03-27 03:30 | PC.ADMIT ---
Kamar was admitted on a CV from the POD for the treatment of unspecified bipolar disorder and suicidal ideation. Per the Crisis evaluation the patient was discharged from [facility] on 03/25 where he had also been treated for suicidal ideation. the patient states that [facility] currently lives at [facility] in transitional [facility]. Kamar stated that his current living situation and the uncertainty of his future is why he feels hopeless and suicidal. Per report Kamar has had 10 inpatient hospitalizations in the past year all of which were r/t suicidal ideation. Kamar denies any current medical conditions but did disclose that he had a CVA in 2019 He is unsure which hemisphere was involved, during the CVA, but stated that the only residual effects is memory loss. The patients grasp and strength are equal bilaterally, and no altered gait was noted. the patients bilateral shins appear to have non-pitting generalized edema with slightly discolored flaky skin. his bilateral feet are also noted to be dry and flaky with overgrown toenails. the patient stated that he has lost approximately 200 lbs over the past year following a gastric sleeve placement in 2023. Although the patient is oriented X's 4, he is also slow to respond and appears to be searching for words to answer assessment questions. all admission documentation completed, patient oriented to the unit an dplaced on Q 15 minute safety checks.
[2025-03-27 07:52] VITALS: BP 118/77; PULSE 63; RESP 18; TEMP 36.4; O2SAT 98
[2025-03-27] MEDS: Aspirin Enteric Coated 81 MG TABLET.DR PO (08:42)
[2025-03-27 09:42] LABS: Alanine Aminotransferase 11 U/L (0-40); Albumin Level 3.7 g/dL (3.5-5.0); Alkaline Phosphatase 62 U/L (39-117); Anion Gap 18 (12-20); Aspartate Amino Transferase 28 U/L (5-37); Blood Urea Nitrogen 16 mg/dL (9-16); Calcium 9.0 mg/dL (8.4-10.2); Carbon Dioxide 23 mmol/L (22-29); Chloride 106 mmol/L (96-108); Cholesterol 153 mg/dL (<200); Creatinine Clr Calc Pharmacy 86.0; Estimated Glomerular Filt Rate > 60; HDL Cholesterol 48 mg/dL (>40); Potassium 4.2 mmol/L (3.3-5.1); Sodium 143 mmol/L (135-145); Total Protein 6.0 g/dL (6.5-8.0); Triglycerides 66 mg/dL (<150)
[2025-03-27 10:00] LABS: Free T4 (Free Thyroxine) 1.09 ng/dL (0.71-1.85); Thyroid Stimulating Hormone 3.31 uIU/mL (0.32-4.0)
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
[2025-03-27 19:37] VITALS: BP 103/66; PULSE 82; RESP 16; TEMP 36.4; O2SAT 96
[2025-03-28 08:00] VITALS: BP 125/85; PULSE 74; RESP 14; TEMP 36.9; O2SAT 99
[2025-03-28] MEDS: Aspirin Enteric Coated 81 MG TABLET.DR PO (08:23)
[2025-03-28] MEDS: buPROPion HCl XL 150 MG TAB.ER.24H PO (08:23)
--- NOTE | 2025-03-28 16:32 | P.PNPSI_ITS ---
Subjective Subjective Date of Service: 03/28/25 Reason For Visit: SI Interim History: no complaints or requests. noted he started wellbutrin today. per staff, dep 8. slept 8 hours. denies anxiety. subdued. tearful and hopeless re eviction. Mental Status Exam Mental Status Exam Narrative: Appearance: Casually dressed, unkempt, disheveled Behavior: Calm and cooperative, no PMA/PMR Eye contact is appropriate Speech: Normal volume and prosody Thought process logical and goal-directed Thought content: On treatment. Mood: depressed Affect: constricted, hypo-intense SI: none expressed HI: none expressed VH/AH: none expressed Delusions: None expressed Insight/judgment: impaired Diagnostics Vital Signs (24Hr): Vital Signs - 24 hr 03/27/25 19:37 03/28/25 08:00 Temperature 97.6 F 98.4 F Pulse Rate 82 74 Respiratory Rate 16 14 Blood Pressure 103/66 125/85 Pulse Oximetry 96 99 Oxygen Delivery Method Room Air Room Air BMI result Body Mass Index 31.5 Labs 03/26/25 15:45 03/27/25 08:31 Labs: Laboratory Results - last 48 hr 03/27/25 08:31 Sodium 143 Potassium 4.2 Chloride 106 Carbon Dioxide 23 Anion Gap 18 BUN 16 Creatinine 1.19 Estim Creat Clear Calc 86.0 Estimated GFR > 60 Random Glucose 78 Estimat Average Glucose 91 Hemoglobin A1c % 4.8 Calcium 9.0 Total Bilirubin 1.1 H AST 28 ALT 11 Alkaline Phosphatase 62 Total Protein 6.0 L Albumin 3.7 Triglycerides 66 Cholesterol 153 LDL Cholesterol, Calc 92 HDL Cholesterol 48 TSH 3.31 Free T4 1.09 Medications Medications Current Medications Acetaminophen (Acetaminophen 325 Mg Tablet) 650 mg PO Q6H PRN PRN Reason: Headache/Pain, Scale 1-10 Al Hydroxide/Mg Hydroxide (Magnesium Hydrox/Alum Hydrox 30 Ml Oral.Susp) 30 ml PO Q6H PRN PRN Reason: Heartburn/Nausea Aspirin (Aspirin Enteric Coated 81 Mg Tablet.) 81 mg PO DAILY [facility] Last Admin: 03/28/25 08:23 Dose: 81 mg Atorvastatin Calcium (Atorvastatin Calcium 20 Mg Tablet) 20 mg PO BEDTIME [facility] Last Admin: 03/27/25 22:17 Dose: 20 mg Bupropion HCl (Bupropion Hcl Xl 150 Mg Tab.Er.24h) 150 mg PO DAILY [facility] Last Admin: 03/28/25 08:23 Dose: 150 mg Hydroxyzine HCl (Hydroxyzine Hcl 25 Mg Tablet) 25 mg PO Q6H PRN PRN Reason: mild anxiety Last Admin: 03/26/25 23:24 Dose: 25 mg Lurasidone HCl (Lurasidone Hcl 40 Mg Tablet) 120 mg PO DAILY@1700 [facility] Last Admin: 03/27/25 16:57 Dose: 120 mg Magnesium Hydroxide (Milk Of Magnesia 30 Ml Oral.Susp) 30 ml PO DAILY PRN PRN Reason: Constipation Nicotine (Nicotine 21 Mg Patch.Td24) 21 mg TRANSDERMA DAILY PRN PRN Reason: nicotine craving Nicotine Polacrilex (Nicotine Polacrilex 2 Mg Gum) 2 mg BUCCAL Q2H PRN PRN Reason: Nicotine Cravings Olanzapine (Olanzapine 5 Mg Tablet) 5 mg PO BID PRN PRN Reason: agitation Trazodone HCl (Trazodone Hcl 50 Mg Tablet) 50 mg PO BEDTIME MRX1 PRN PRN Reason: Insomnia Last Admin: 03/26/25 23:24 Dose: 50 mg Allergies Allergies Allergy/AdvReac Type Severity Reaction Status Date / Time pumpkin Allergy Unknown Unknown Verified 12/24/24 12:26 Assessment & Plan Assessment & Plan (1) Bipolar disorder: Status: Acute Code(s): F31.9 - Bipolar disorder, unspecified (2) Depression: Status: Acute Code(s): F32.A - Depression, unspecified Plan 03/27: feels latuda 120 has been helpful. however, remains depressed. add wellbutrin XL 150 daily for depression, plan to increase to 300 mg daily in 3 days. may also consider ECT due to lack of improvement despite numerous recent hospitalizations + lethality of suicide attempts + recent self-abnegating behaviors. 03/28: no change in presentation, no requests or complaints. started wellbutrin 150 today. continue current mgmt. Reason for continued inpatient stay Substantial Risk for: harm to self and inability to function Time Spent With Patient Time: Total time managing care of this patient today ____ minutes.
[2025-03-28 20:00] VITALS: BP 137/66; PULSE 90; RESP 16; TEMP 36.9; O2SAT 97
[2025-03-29 07:45] VITALS: BP 117/77; PULSE 113; RESP 14; TEMP 36.8; O2SAT 95
[2025-03-29] MEDS: buPROPion HCl XL 150 MG TAB.ER.24H PO (08:09)
[2025-03-29] MEDS: Aspirin Enteric Coated 81 MG TABLET.DR PO (08:09)
--- NOTE | 2025-03-29 14:37 | P.PNPSI_ITS ---
Subjective Subjective Date of Service: 03/29/25 Reason For Visit: SI Subjective Notes: Conditional Voluntary Healthcare Proxy: No Guardianship: No Medical Problems Affecting Mental Status: No Interim History: Medical record and nursing notes reviewed; case discussed during rounds with team/nursing staff, and met with patient for supportive therapy/psychoeducation, as well as medication management. Patient slept most of the night, denies appetite issues, denied anxiety, but reports depression and 8/10. He reported that he is in the process of eviction, but able to return to his own place after discharge. Denies side effects from medication which he started the Wellbutrin yesterday morning. Nursing staff continued to encourage patient to eat out, and groups which he did today. Observed visible and attended groups. No safety concerns. Medication Compliance: Yes Side effects from medications: No Attending Groups: Yes Review of Systems Acute medical concerns: No Medical Review of Systems: unchanged Review of Systems Review of Systems Constitutional: Denies fatigue and Denies fever(s) Cardiovascular: Denies chest pain and Denies dyspnea Respiratory: Denies dyspnea Gastrointestinal: Denies abdominal pain Psychiatric: denies suicidal ideation Endocrine: Denies fatigue Yes all other systems are reviewed and are negative Mental Status Exam Mental Status Exam Narrative: Appearance: Casually dressed, unkempt, disheveled Behavior: Calm and cooperative, no PMA/PMR Eye contact is appropriate Speech: Normal volume and prosody Thought process logical and goal-directed Thought content: On treatment. Mood: depressed Affect: constricted SI: denies HI: denies VH/AH: none expressed Delusions: no Insight/judgment: some level of impairment. Diagnostics Vital Signs (24Hr): Vital Signs - 24 hr 03/28/25 20:00 03/29/25 07:45 Temperature 98.4 F 98.2 F Pulse Rate 90 113 H Respiratory Rate 16 14 Blood Pressure 137/66 117/77 Pulse Oximetry 97 95 Oxygen Delivery Method Room Air Room Air BMI result Body Mass Index 31.5 Labs 03/26/25 15:45 03/27/25 08:31 Medications Medications Current Medications Acetaminophen (Acetaminophen 325 Mg Tablet) 650 mg PO Q6H PRN PRN Reason: Headache/Pain, Scale 1-10 Al Hydroxide/Mg Hydroxide (Magnesium Hydrox/Alum Hydrox 30 Ml Oral.Susp) 30 ml PO Q6H PRN PRN Reason: Heartburn/Nausea Aspirin (Aspirin Enteric Coated 81 Mg Tablet.) 81 mg PO DAILY [facility] Last Admin: 03/29/25 08:09 Dose: 81 mg Atorvastatin Calcium (Atorvastatin Calcium 20 Mg Tablet) 20 mg PO BEDTIME [facility] Last Admin: 03/28/25 21:22 Dose: 20 mg Bupropion HCl (Bupropion Hcl Xl 150 Mg Tab.Er.24h) 150 mg PO DAILY [facility] Last Admin: 03/29/25 08:09 Dose: 150 mg Hydroxyzine HCl (Hydroxyzine Hcl 25 Mg Tablet) 25 mg PO Q6H PRN PRN Reason: mild anxiety Last Admin: 03/26/25 23:24 Dose: 25 mg Lurasidone HCl (Lurasidone Hcl 40 Mg Tablet) 120 mg PO DAILY@1700 [facility] Last Admin: 03/28/25 17:33 Dose: 120 mg Magnesium Hydroxide (Milk Of Magnesia 30 Ml Oral.Susp) 30 ml PO DAILY PRN PRN Reason: Constipation Nicotine (Nicotine 21 Mg Patch.Td24) 21 mg TRANSDERMA DAILY PRN PRN Reason: nicotine craving Nicotine Polacrilex (Nicotine Polacrilex 2 Mg Gum) 2 mg BUCCAL Q2H PRN PRN Reason: Nicotine Cravings Olanzapine (Olanzapine 5 Mg Tablet) 5 mg PO BID PRN PRN Reason: agitation Trazodone HCl (Trazodone Hcl 50 Mg Tablet) 50 mg PO BEDTIME MRX1 PRN PRN Reason: Insomnia Last Admin: 03/26/25 23:24 Dose: 50 mg Allergies Allergies Allergy/AdvReac Type Severity Reaction Status Date / Time pumpkin Allergy Unknown Unknown Verified 12/24/24 12:26 Assessment & Plan Assessment & Plan (1) Bipolar disorder: Status: Acute Code(s): F31.9 - Bipolar disorder, unspecified (2) Depression: Status: Acute Code(s): F32.A - Depression, unspecified Plan 03/27: feels latuda 120 has been helpful. however, remains depressed. add wellbutrin XL 150 daily for depression, plan to increase to 300 mg daily in 3 days. may also consider ECT due to lack of improvement despite numerous recent hospitalizations + lethality of suicide attempts + recent self-abnegating behaviors. 03/28: no change in presentation, no requests or complaints. started wellbutrin 150 today. continue current mgmt 03/29/25: Slept well, no issues with appetite. Observed out on the unit, attended groups, engaging. Reports depression and 8/10, denies anxiety. Constricted affect, congruent with mood. Denies safety concerns. Compliant with medications. Denies side effects from Wellbutrin. Continue to encourage groups. He reported that he has bipolar type II. Patient educated on: diagnosis, medication risk/benefits and therapeutic strategies Informed Consent: understands Reason for continued inpatient stay Substantial Risk for: med/psych decompensation Time Spent With Patient Time: Total time managing care of this patient today ____ minutes.
[2025-03-29 20:00] VITALS: BP 120/78; PULSE 86; RESP 15; TEMP 36.9; O2SAT 97
[2025-03-30 07:31] VITALS: BP 115/75; PULSE 83; RESP 16; TEMP 36.4; O2SAT 93
[2025-03-30] MEDS: buPROPion HCl XL 150 MG TAB.ER.24H PO (08:43)
[2025-03-30] MEDS: Aspirin Enteric Coated 81 MG TABLET.DR PO (08:44)
[2025-03-30 20:39] VITALS: BP 110/61; PULSE 76; RESP 16; TEMP 36.4; O2SAT 94
--- NOTE | 2025-03-30 22:40 | HO.PSYCHPN ---
Subjective Subjective Date of Service: 03/30/25 Reason For Visit: SI Subjective Notes: Conditional Voluntary Healthcare Proxy: No Guardianship: No Medical Problems Affecting Mental Status: No Interim History: Medical record and nursing notes reviewed; case discussed during rounds with team/nursing staff, and met with patient for supportive therapy/psychoeducation, as well as medication management. Patient slept for 6 hours, was medication compliant. He attended 2 groups yesterday, however today he is more isolated, in bed a lot more time, declines a couple groups. Reports depressed but no anxiety, flat affect, depressed, but cooperative during one-to-one assessment. He is receptive with the plan of Wellbutrin increased up to 300 mg for depression. Reports passive SI, denies plan or intention. Denies other safety concerns. Encourage patient to go to groups and shower daily. Medication Compliance: Yes Side effects from medications: No Attending Groups: Intermittent Review of Systems Acute medical concerns: No Medical Review of Systems: unchanged Review of Systems Review of Systems Constitutional: Denies fatigue and Denies fever(s) Cardiovascular: Denies chest pain and Denies dyspnea Respiratory: Denies dyspnea Gastrointestinal: Denies abdominal pain Psychiatric: denies suicidal ideation Endocrine: Denies fatigue Yes all other systems are reviewed and are negative Mental Status Exam Mental Status Exam Narrative: Appearance: Casually dressed, unkempt, disheveled Behavior: Calm and cooperative, no PMA/PMR Eye contact is appropriate Speech: Normal volume and prosody Thought process logical and goal-directed Thought content: On treatment. Mood: depressed , 8/10 Affect: constricted/flat SI: Passive SI, no plan/intent HI: denies VH/AH: none expressed Delusions: no Insight/judgment: some level of impairment. Diagnostics Vital Signs (24Hr): Vital Signs - 24 hr 03/30/25 07:31 Temperature 97.5 F Pulse Rate 83 Respiratory Rate 16 Blood Pressure 115/75 Pulse Oximetry 93 Oxygen Delivery Method Room Air BMI result Body Mass Index 31.5 Labs 03/26/25 15:45 03/27/25 08:31 Medications Medications Current Medications Acetaminophen (Acetaminophen 325 Mg Tablet) 650 mg PO Q6H PRN PRN Reason: Headache/Pain, Scale 1-10 Al Hydroxide/Mg Hydroxide (Magnesium Hydrox/Alum Hydrox 30 Ml Oral.Susp) 30 ml PO Q6H PRN PRN Reason: Heartburn/Nausea Aspirin (Aspirin Enteric Coated 81 Mg Tablet.) 81 mg PO DAILY [facility] Last Admin: 03/30/25 08:44 Dose: 81 mg Atorvastatin Calcium (Atorvastatin Calcium 20 Mg Tablet) 20 mg PO BEDTIME [facility] Last Admin: 03/30/25 21:56 Dose: 20 mg Bupropion HCl (Bupropion Hcl Xl 300 Mg Tab.Er.24h) 300 mg PO DAILY [facility] Hydroxyzine HCl (Hydroxyzine Hcl 25 Mg Tablet) 25 mg PO Q6H PRN PRN Reason: mild anxiety Last Admin: 03/26/25 23:24 Dose: 25 mg Lurasidone HCl (Lurasidone Hcl 40 Mg Tablet) 120 mg PO DAILY@1700 [facility] Last Admin: 03/30/25 16:54 Dose: 120 mg Magnesium Hydroxide (Milk Of Magnesia 30 Ml Oral.Susp) 30 ml PO DAILY PRN PRN Reason: Constipation Nicotine (Nicotine 21 Mg Patch.Td24) 21 mg TRANSDERMA DAILY PRN PRN Reason: nicotine craving Nicotine Polacrilex (Nicotine Polacrilex 2 Mg Gum) 2 mg BUCCAL Q2H PRN PRN Reason: Nicotine Cravings Olanzapine (Olanzapine 5 Mg Tablet) 5 mg PO BID PRN PRN Reason: agitation Trazodone HCl (Trazodone Hcl 50 Mg Tablet) 50 mg PO BEDTIME MRX1 PRN PRN Reason: Insomnia Last Admin: 03/26/25 23:24 Dose: 50 mg Allergies Allergies Allergy/AdvReac Type Severity Reaction Status Date / Time pumpkin Allergy Unknown Unknown Verified 12/24/24 12:26 Assessment & Plan Assessment & Plan (1) Bipolar disorder: Status: Acute Code(s): F31.9 - Bipolar disorder, unspecified (2) Depression: Status: Acute Code(s): F32.A - Depression, unspecified Plan 03/27: feels latuda 120 has been helpful. however, remains depressed. add wellbutrin XL 150 daily for depression, plan to increase to 300 mg daily in 3 days. may also consider ECT due to lack of improvement despite numerous recent hospitalizations + lethality of suicide attempts + recent self-abnegating behaviors. 03/28: no change in presentation, no requests or complaints. started wellbutrin 150 today. continue current mgmt 03/29/25: Slept well, no issues with appetite. Observed out on the unit, attended groups, engaging. Reports depression and 8/10, denies anxiety. Constricted affect, congruent with mood. Denies safety concerns. Compliant with medications. Denies side effects from Wellbutrin. Continue to encourage groups. 03/30/25: Patient slept for 6 hours, was medication compliant. He attended 2 groups yesterday, however today he is more isolated, in bed a lot more time, declines a couple groups. Reports depressed but no anxiety, flat affect, depressed, but cooperative during one-to-one assessment. He is receptive with the plan of Wellbutrin increased up to 300 mg for depression. Reports passive SI, denies plan or intention. Denies other safety concerns. Encourage patient to go to groups and shower daily. Increase Wellbutrin XL to 300 mg daily for depression. He reported that he has bipolar type II. Patient educated on: diagnosis, medication risk/benefits and therapeutic strategies Informed Consent: understands and further education needed Reason for continued inpatient stay Substantial Risk for: harm to self (Passive SI ) and med/psych decompensation Time Spent With Patient Time: Total time managing care of this patient today ____ minutes.
[2025-03-31 08:00] VITALS: BP 90/53; PULSE 76; RESP 18; TEMP 36.4; O2SAT 93
[2025-03-31] MEDS: Aspirin Enteric Coated 81 MG TABLET.DR PO (09:01)
[2025-03-31] MEDS: buPROPion HCl XL 300 MG TAB.ER.24H PO (09:01)
--- NOTE | 2025-03-31 14:46 | HO.PSYCHPN ---
Subjective Subjective Date of Service: 03/31/25 Reason For Visit: SI Subjective Notes: Conditional Voluntary Interim History: Laying in bed. keeping to self. showered. patient reports feeling depressed ; pt stated, I'm not having a good day. I don't want to do anything . flat affect. denies SI/HI/VH/AH. Per nursing, slept 8 hours. encouraged to attend groups. contine current tx plan. Medication Compliance: Yes Side effects from medications: No Attending Groups: No Mental Status Exam Mental Status Exam Patient Appearance: Appropriate Patient Orientation: Person, Place, Time and Situation Level of Consciousness: Awake Patient Behavior: Guarded and Cooperative Mood Description: Depressed Affect Description: Flat Ability to Follow Directions: Good Speech Pattern: Clear and Monotone Hallucinations: None Delusions: Not Present Thought Process: Intact Thought Content: positive for Intact Diagnostics Vital Signs (24Hr): Vital Signs - 24 hr 03/30/25 20:39 03/31/25 08:00 Temperature 97.5 F 97.5 F Pulse Rate 76 76 Respiratory Rate 16 18 Blood Pressure 110/61 90/53 L Pulse Oximetry 94 93 Oxygen Delivery Method Room Air Room Air BMI result Body Mass Index 31.5 Labs 03/26/25 15:45 03/27/25 08:31 Medications Medications Current Medications Acetaminophen (Acetaminophen 325 Mg Tablet) 650 mg PO Q6H PRN PRN Reason: Headache/Pain, Scale 1-10 Al Hydroxide/Mg Hydroxide (Magnesium Hydrox/Alum Hydrox 30 Ml Oral.Susp) 30 ml PO Q6H PRN PRN Reason: Heartburn/Nausea Aspirin (Aspirin Enteric Coated 81 Mg Tablet.) 81 mg PO DAILY [facility] Last Admin: 03/31/25 09:01 Dose: 81 mg Atorvastatin Calcium (Atorvastatin Calcium 20 Mg Tablet) 20 mg PO BEDTIME [facility] Last Admin: 03/30/25 21:56 Dose: 20 mg Bupropion HCl (Bupropion Hcl Xl 300 Mg Tab.Er.24h) 300 mg PO DAILY [facility] Last Admin: 03/31/25 09:01 Dose: 300 mg Hydroxyzine HCl (Hydroxyzine Hcl 25 Mg Tablet) 25 mg PO Q6H PRN PRN Reason: mild anxiety Last Admin: 03/26/25 23:24 Dose: 25 mg Lurasidone HCl (Lurasidone Hcl 40 Mg Tablet) 120 mg PO DAILY@1700 [facility] Last Admin: 03/30/25 16:54 Dose: 120 mg Magnesium Hydroxide (Milk Of Magnesia 30 Ml Oral.Susp) 30 ml PO DAILY PRN PRN Reason: Constipation Nicotine (Nicotine 21 Mg Patch.Td24) 21 mg TRANSDERMA DAILY PRN PRN Reason: nicotine craving Nicotine Polacrilex (Nicotine Polacrilex 2 Mg Gum) 2 mg BUCCAL Q2H PRN PRN Reason: Nicotine Cravings Olanzapine (Olanzapine 5 Mg Tablet) 5 mg PO BID PRN PRN Reason: agitation Trazodone HCl (Trazodone Hcl 50 Mg Tablet) 50 mg PO BEDTIME MRX1 PRN PRN Reason: Insomnia Last Admin: 03/26/25 23:24 Dose: 50 mg Allergies Allergies Allergy/AdvReac Type Severity Reaction Status Date / Time pumpkin Allergy Unknown Unknown Verified 12/24/24 12:26 Assessment & Plan Assessment & Plan (1) Bipolar disorder: Status: Acute Code(s): F31.9 - Bipolar disorder, unspecified (2) Depression: Status: Acute Code(s): F32.A - Depression, unspecified Plan 03/27: feels latuda 120 has been helpful. however, remains depressed. add wellbutrin XL 150 daily for depression, plan to increase to 300 mg daily in 3 days. may also consider ECT due to lack of improvement despite numerous recent hospitalizations + lethality of suicide attempts + recent self-abnegating behaviors. 03/28: no change in presentation, no requests or complaints. started wellbutrin 150 today. continue current mgmt 03/29/25: Slept well, no issues with appetite. Observed out on the unit, attended groups, engaging. Reports depression and 03/21, denies anxiety. Constricted affect, congruent with mood. Denies safety concerns. Compliant with medications. Denies side effects from Wellbutrin. Continue to encourage groups. 03/30/25: Patient slept for 6 hours, was medication compliant. He attended 2 groups yesterday, however today he is more isolated, in bed a lot more time, declines a couple groups. Reports depressed but no anxiety, flat affect, depressed, but cooperative during one-to-one assessment. He is receptive with the plan of Wellbutrin increased up to 300 mg for depression. Reports passive SI, denies plan or intention. Denies other safety concerns. Encourage patient to go to groups and shower daily. Increase Wellbutrin XL to 300 mg daily for depression. He reported that he has bipolar type II. 03/31: Laying in bed. keeping to self. showered. patient reports feeling depressed ; pt stated, I'm not having a good day. I don't want to do anything . flat affect. denies SI/HI/VH/AH. Per nursing, slept 8 hours. encouraged to attend groups. continue current tx plan. Patient educated on: medication risk/benefits and therapeutic strategies Reason for continued inpatient stay Substantial Risk for: med/psych decompensation Time Spent With Patient Time: Total time managing care of this patient today _10___ minutes.
[2025-03-31 19:42] VITALS: BP 112/64; PULSE 71; RESP 14; TEMP 36.3; O2SAT 96
[2025-04-01 07:00] VITALS: BMI 31.2
[2025-04-01 07:54] VITALS: BP 116/61; PULSE 68; RESP 20; TEMP 36.4; O2SAT 96
[2025-04-01] MEDS: buPROPion HCl XL 300 MG TAB.ER.24H PO (08:58)
[2025-04-01] MEDS: Aspirin Enteric Coated 81 MG TABLET.DR PO (08:58)
[2025-04-01 20:00] VITALS: BP 117/72; PULSE 63; RESP 18; TEMP 36.9; O2SAT 96
--- NOTE | 2025-04-01 22:21 | P.PNPSI_ITS ---
Subjective Subjective Date of Service: 04/01/25 Reason For Visit: SI Subjective Notes: Conditional Voluntary Healthcare Proxy: No Guardianship: No Interim History: Medical record and nursing notes reviewed; case discussed during rounds with team/nursing staff, and met with patient for supportive therapy/psychoeducation, as well as medication management. Patient slept for 8 hours, poor meal intake yesterday but was medication compliant. Denies side effects. When asked about if he has poor appetite as he ate only 50 of breakfast, and 25 for lunch and not eating dinner, he said because I did not do the menu, so I got what I do not like . He shower yesterday, continued to reports depression 03/21. Denied anxiety. He does not feel any difference from Wellbutrin 150 when and when it was increased up to 300 mg. Denies SI/SIB/HI/AVH, isolative self, he plans to attend groups today. This provider spoke with patient in length regarding medication trials. Per his report, has been trying so many antidepressants they just do not work, and continued to be depressed. Some of them are Zoloft, Paxil, Effexor, Celexa, Prozac, Cymbalta, Lexapro. He also having history of taking Zyprexa more than 20 years ago due to hearing voices. Then the voices was calm. He never has a take it again after. History of Abilify but not sure if it is working as he can not recall. Regarding ADLs: He said that [facility], but he is not showering for many days despite the fact that staff asked him to do so I just do not care about being clean . Reports very low energy, low motivation, been increased suicidal thoughts and depression. He used to love music and reading but not interested in doing anything like that anymore. Reported that he had gastric sleeve surgery back in August 2023 which he lost 230 lb. He weight 447 lb prior to the surgery. He identified that after the surgery he has been more depressed slowly over months. There was a time that he wanted to starve myself so I can when asked is that you that he has stopped eating at home. He also identified that he feel more depressed after surgery as he is not able to over eating like he did before. Family mental health illnesses: Reports that who both of his parents was depressed. Mom 11 years ago. 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 History of ECTs: Reports he had history of ECTs in 2010 when he was at in [facility].He felt worse after the treatment everything seems like a dream . He clarified that immediately after the treatment he feel that way which could be a side effects of ECT but not permanent. Educate patient on possible side effects ECTs. Patient denies having seizure during ECTs treatment, no seizure history no cardiac conditions/disease history. Reports history of hypertension, but not anymore. He also has been admitted to different hospitals for psychiatric admissions in the past couple of months. Reports staying at [facility] in December for a month. [facility] hospital in the area names [facility]) in October for another month. Per email from his OP team- clinical director at [facility], they also express concerns of patient's conditions. It is noted that their concerns are very consistent with patient' report here on the unit. Alfredito has been in and out on inpatient level of care since October of this year, I believe every month, for a majority of the time. He was recently discharged from [facility] after a 1 month stay and within two hours of returning home wanted to return to the hospital, saying he was unwell, and within one day was sectioned by [facility], which is how he ended up with you now. ? He has been coming home and intentionally starving himself, even not eating for up to 1 week. We have known Alfredito for years and since this started in October, we have seen no significant improvement in his mental health or a return to baseline. In fact, we are observing his case as consistent with failure to thrive. We have been asking for him to be inpatient at [facility] or with you at [facility] for some time in order for him to be potentially considered for ECT level of treatment, if deemed appropriate. Multiple medication trials failture to target depressive symptoms. He will be a good candidate to get trial ECT treatment in combination with current medication regimens. Patient also agrees with the plan. We would start the treatment as soon as possible. Medication Compliance: Yes Side effects from medications: No Attending Groups: Intermittent Review of Systems Acute medical concerns: No Medical Review of Systems: unchanged Review of Systems Review of Systems Constitutional: Denies fatigue and Denies fever(s) Cardiovascular: Denies chest pain and Denies dyspnea Respiratory: Denies dyspnea Gastrointestinal: Denies abdominal pain Psychiatric: denies suicidal ideation Endocrine: Denies fatigue Yes all other systems are reviewed and are negative Mental Status Exam Mental Status Exam Narrative: Appearance: Casually dressed, unkempt, disheveled Behavior: Calm and cooperative, no PMA/PMR Eye contact is appropriate Speech: Normal volume and prosody Thought process logical and goal-directed Thought content: On treatment. Mood: depressed , 03/21 Affect: constricted/flat SI: Denies HI: denies VH/AH: none expressed Delusions: no Insight/judgment: some level of impairment. Diagnostics Vital Signs (24Hr): Vital Signs - 24 hr 04/01/25 07:54 04/01/25 20:00 Temperature 97.5 F 98.5 F Pulse Rate 68 63 Respiratory Rate 20 18 Blood Pressure 116/61 117/72 Pulse Oximetry 96 96 Oxygen Delivery Method Room Air Room Air BMI result Body Mass Index 31.2 Labs 03/26/25 15:45 03/27/25 08:31 Medications Medications Current Medications Acetaminophen (Acetaminophen 325 Mg Tablet) 650 mg PO Q6H PRN PRN Reason: Headache/Pain, Scale 1-10 Al Hydroxide/Mg Hydroxide (Magnesium Hydrox/Alum Hydrox 30 Ml Oral.Susp) 30 ml PO Q6H PRN PRN Reason: Heartburn/Nausea Aspirin (Aspirin Enteric Coated 81 Mg Tablet.Dr) 81 mg PO DAILY [facility] Last Admin: 04/01/25 08:58 Dose: 81 mg Atorvastatin Calcium (Atorvastatin Calcium 20 Mg Tablet) 20 mg PO BEDTIME [facility] Last Admin: 04/01/25 20:20 Dose: 20 mg Bupropion HCl (Bupropion Hcl Xl 300 Mg Tab.Er.24h) 300 mg PO DAILY [facility] Last Admin: 04/01/25 08:58 Dose: 300 mg Hydroxyzine HCl (Hydroxyzine Hcl 25 Mg Tablet) 25 mg PO Q6H PRN PRN Reason: mild anxiety Last Admin: 03/26/25 23:24 Dose: 25 mg Lurasidone HCl (Lurasidone Hcl 40 Mg Tablet) 120 mg PO DAILY@1700 [facility] Last Admin: 04/01/25 17:15 Dose: 120 mg Magnesium Hydroxide (Milk Of Magnesia 30 Ml Oral.Susp) 30 ml PO DAILY PRN PRN Reason: Constipation Nicotine (Nicotine 21 Mg Patch.Td24) 21 mg TRANSDERMA DAILY PRN PRN Reason: nicotine craving Nicotine Polacrilex (Nicotine Polacrilex 2 Mg Gum) 2 mg BUCCAL Q2H PRN PRN Reason: Nicotine Cravings Olanzapine (Olanzapine 5 Mg Tablet) 5 mg PO BID PRN PRN Reason: agitation Trazodone HCl (Trazodone Hcl 50 Mg Tablet) 50 mg PO BEDTIME MRX1 PRN PRN Reason: Insomnia Last Admin: 03/26/25 23:24 Dose: 50 mg Allergies Allergies Allergy/AdvReac Type Severity Reaction Status Date / Time pumpkin Allergy Unknown Unknown Verified 12/24/24 12:26 Assessment & Plan Assessment & Plan (1) Bipolar disorder: Status: Acute Code(s): F31.9 - Bipolar disorder, unspecified (2) Depression: Status: Acute Code(s): F32.A - Depression, unspecified Plan 03/27: feels latuda 120 has been helpful. however, remains depressed. add wellbutrin XL 150 daily for depression, plan to increase to 300 mg daily in 3 days. may also consider ECT due to lack of improvement despite numerous recent hospitalizations + lethality of suicide attempts + recent self-abnegating behaviors. 03/28: no change in presentation, no requests or complaints. started wellbutrin 150 today. continue current mgmt 03/29/25: Slept well, no issues with appetite. Observed out on the unit, attended groups, engaging. Reports depression and 03/21, denies anxiety. Constricted affect, congruent with mood. Denies safety concerns. Compliant with medications. Denies side effects from Wellbutrin. Continue to encourage groups. 03/30/25: Patient slept for 6 hours, was medication compliant. He attended 2 groups yesterday, however today he is more isolated, in bed a lot more time, declines a couple groups. Reports depressed but no anxiety, flat affect, depressed, but cooperative during one-to-one assessment. He is receptive with the plan of Wellbutrin increased up to 300 mg for depression. Reports passive SI, denies plan or intention. Denies other safety concerns. Encourage patient to go to groups and shower daily. Increase Wellbutrin XL to 300 mg daily for depression. He reported that he has bipolar type II. 03/31: Laying in bed. keeping to self. showered. patient reports feeling depressed ; pt stated, I'm not having a good day. I don't want to do anything . flat affect. denies SI/HI/VH/AH. Per nursing, slept 8 hours. encouraged to attend groups. continue current tx plan. 04/01/25: Patient slept for 8 hours, poor meal intake yesterday but was medication compliant. Denies side effects. When asked about if he has poor appetite as he ate only 50 of breakfast, and 25 for lunch and not eating dinner, he said because I did not do the menu, so I got what I do not like . He shower yesterday, continued to reports depression 03/21. Denied anxiety. He does not feel any difference from Wellbutrin 150 when and when it was increased up to 300 mg. Denies SI/SIB/HI/AVH, isolative self, he plans to attend groups today. This provider spoke with patient in length regarding medication trials. Per his report, has been trying so many antidepressants they just do not work, and continued to be depressed. Some of them are Zoloft, Paxil, Effexor, Celexa, Prozac, Cymbalta, Lexapro. He also having history of taking Zyprexa more than 20 years ago due to hearing voices. Then the voices was calm. He never has a take it again after. History of Abilify but not sure if it is working as he can not recall. Regarding ADLs: He said that [facility], but he is not showering for many days despite the fact that staff asked him to do so I just do not care about being clean . Reports very low energy, low motivation, been increased suicidal thoughts and depression. He used to love music and reading but not interested in doing anything like that anymore. Reported that he had gastric sleeve surgery back in August 2023 which he lost 230 lb. He weight 447 lb prior to the surgery. He identified that after the surgery he has been more depressed slowly over months. There was a time that he wanted to starve myself so I can when asked is that you that he has stopped eating at home. He also identified that he feel more depressed after surgery as he is not able to over eating like he did before. Family mental health illnesses: Reports that who both of his parents was depressed. Mom 11 years ago. 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 History of ECTs: Reports he had history of ECTs in 2010 when he was at in [facility].He felt worse after the treatment everything seems like a dream . He clarified that immediately after the treatment he feel that way which could be a side effects of ECT but not permanent. Educate patient on possible side effects ECTs. Patient denies having seizure during ECTs treatment, no seizure history no cardiac conditions/disease history. Reports history of hypertension, but not anymore. He also has been admitted to different hospitals for psychiatric admissions in the past couple of months. Reports staying at [facility] in December for a month. [facility] in the area names [facility]) in October for another month. Per email from his OP team- clinical director at [facility], they also express concerns of patient's conditions. It is noted that their concerns are very consistent with patient' report here on the unit. He also has been admitted to different hospitals for psychiatric admissions in the past couple of months. Reports staying at [facility] in December for a month. [facility] in the area names [facility]) in October for another month. Per email from his OP team- clinical director at [facility], they also express concerns of patient's conditions. It is noted that their concerns are very consistent with patient' report here on the unit. Alfredito has been in and out on inpatient level of care since October of this year, I believe every month, for a majority of the time. He was recently discharged from [facility] after a 1 month stay and within two hours of returning home wanted to return to the hospital, saying he was unwell, and within one day was sectioned by [facility], which is how he ended up with you now. ? He has been coming home and intentionally starving himself, even not eating for up to 1 week. We have known Alfredito for years and since this started in October, we have seen no significant improvement in his mental health or a return to baseline. In fact, we are observing his case as consistent with failure to thrive. We have been asking for him to be inpatient at [facility] or with you at [facility] for some time in order for him to be potentially considered for ECT level of treatment, if deemed appropriate. Multiple medication trials failture to target depressive symptoms. He will be a good candidate to get trial ECT treatment in combination with current medication regimens. Patient also agrees with the plan. We would start the treatment as soon as possible. Will discuss the case with in house psychiatrist-Dr. Ward to prepare for ECT treatment. Hope to start early next week. Patient educated on: diagnosis, medication risk/benefits and therapeutic strategies Informed Consent: understands and further education needed Reason for continued inpatient stay Substantial Risk for: med/psych decompensation Time Spent With Patient Time: Total time managing care of this patient today ____ minutes.
[2025-04-02 07:52] VITALS: BP 116/66; PULSE 66; RESP 18; TEMP 36.4; O2SAT 96
[2025-04-02] MEDS: buPROPion HCl XL 300 MG TAB.ER.24H PO (08:37)
[2025-04-02] MEDS: Aspirin Enteric Coated 81 MG TABLET.DR PO (08:37)
--- NOTE | 2025-04-02 09:23 | HO.PSYCHPN ---
Subjective Subjective Date of Service: 04/02/25 Reason For Visit: SI Subjective Notes: Conditional Voluntary Interim History: Laying in bed. keeping to self. Patient continues to report feeling depressed; pt stated, I feel about the same. I spoke with the other provider and agreed to do ECT . He reports sleeping well. denies SI/HI/VH/AH. Encouraged to attend groups and shower. Continue current tx plan. Medication Compliance: Yes Side effects from medications: No Attending Groups: No Mental Status Exam Mental Status Exam Patient Appearance: Disheveled Patient Orientation: Person, Place, Time and Situation Level of Consciousness: Awake Patient Behavior: Appropriate, Guarded and Cooperative Mood Description: Depressed Affect Description: Flat Ability to Follow Directions: Good Speech Pattern: Clear Memory Description: Intact Hallucinations: None Delusions: Not Present Thought Process: Intact Thought Content: positive for Intact Diagnostics Vital Signs (24Hr): Vital Signs - 24 hr 04/01/25 20:00 04/02/25 07:52 Temperature 98.5 F 97.5 F Pulse Rate 63 66 Respiratory Rate 18 18 Blood Pressure 117/72 116/66 Pulse Oximetry 96 96 Oxygen Delivery Method Room Air Room Air BMI result Body Mass Index 31.2 Labs 03/26/25 15:45 03/27/25 08:31 Medications Medications Current Medications Acetaminophen (Acetaminophen 325 Mg Tablet) 650 mg PO Q6H PRN PRN Reason: Headache/Pain, Scale 1-10 Al Hydroxide/Mg Hydroxide (Magnesium Hydrox/Alum Hydrox 30 Ml Oral.Susp) 30 ml PO Q6H PRN PRN Reason: Heartburn/Nausea Aspirin (Aspirin Enteric Coated 81 Mg Tablet.) 81 mg PO DAILY [facility] Last Admin: 04/02/25 08:37 Dose: 81 mg Atorvastatin Calcium (Atorvastatin Calcium 20 Mg Tablet) 20 mg PO BEDTIME [facility] Last Admin: 04/01/25 20:20 Dose: 20 mg Bupropion HCl (Bupropion Hcl Xl 300 Mg Tab.Er.24h) 300 mg PO DAILY [facility] Last Admin: 04/02/25 08:37 Dose: 300 mg Hydroxyzine HCl (Hydroxyzine Hcl 25 Mg Tablet) 25 mg PO Q6H PRN PRN Reason: mild anxiety Last Admin: 03/26/25 23:24 Dose: 25 mg Lurasidone HCl (Lurasidone Hcl 40 Mg Tablet) 120 mg PO DAILY@1700 [facility] Last Admin: 04/01/25 17:15 Dose: 120 mg Magnesium Hydroxide (Milk Of Magnesia 30 Ml Oral.Susp) 30 ml PO DAILY PRN PRN Reason: Constipation Nicotine (Nicotine 21 Mg Patch.Td24) 21 mg TRANSDERMA DAILY PRN PRN Reason: nicotine craving Nicotine Polacrilex (Nicotine Polacrilex 2 Mg Gum) 2 mg BUCCAL Q2H PRN PRN Reason: Nicotine Cravings Olanzapine (Olanzapine 5 Mg Tablet) 5 mg PO BID PRN PRN Reason: agitation Trazodone HCl (Trazodone Hcl 50 Mg Tablet) 50 mg PO BEDTIME MRX1 PRN PRN Reason: Insomnia Last Admin: 03/26/25 23:24 Dose: 50 mg Allergies Allergies Allergy/AdvReac Type Severity Reaction Status Date / Time pumpkin Allergy Unknown Unknown Verified 12/24/24 12:26 Assessment & Plan Assessment & Plan (1) Bipolar disorder: Status: Acute Code(s): F31.9 - Bipolar disorder, unspecified (2) Depression: Status: Acute Code(s): F32.A - Depression, unspecified Plan 03/27: feels latuda 120 has been helpful. however, remains depressed. add wellbutrin XL 150 daily for depression, plan to increase to 300 mg daily in 3 days. may also consider ECT due to lack of improvement despite numerous recent hospitalizations + lethality of suicide attempts + recent self-abnegating behaviors. 03/28: no change in presentation, no requests or complaints. started wellbutrin 150 today. continue current mgmt 03/29/25: Slept well, no issues with appetite. Observed out on the unit, attended groups, engaging. Reports depression and 03/21, denies anxiety. Constricted affect, congruent with mood. Denies safety concerns. Compliant with medications. Denies side effects from Wellbutrin. Continue to encourage groups. 03/30/25: Patient slept for 6 hours, was medication compliant. He attended 2 groups yesterday, however today he is more isolated, in bed a lot more time, declines a couple groups. Reports depressed but no anxiety, flat affect, depressed, but cooperative during one-to-one assessment. He is receptive with the plan of Wellbutrin increased up to 300 mg for depression. Reports passive SI, denies plan or intention. Denies other safety concerns. Encourage patient to go to groups and shower daily. Increase Wellbutrin XL to 300 mg daily for depression. He reported that he has bipolar type II. 03/31: Laying in bed. keeping to self. showered. patient reports feeling depressed ; pt stated, I'm not having a good day. I don't want to do anything . flat affect. denies SI/HI/VH/AH. Per nursing, slept 8 hours. encouraged to attend groups. continue current tx plan. 04/01/25: Patient slept for 8 hours, poor meal intake yesterday but was medication compliant. Denies side effects. When asked about if he has poor appetite as he ate only 50 of breakfast, and 25 for lunch and not eating dinner, he said because I did not do the menu, so I got what I do not like . He shower yesterday, continued to reports depression 03/21. Denied anxiety. He does not feel any difference from Wellbutrin 150 when and when it was increased up to 300 mg. Denies SI/SIB/HI/AVH, isolative self, he plans to attend groups today. This provider spoke with patient in length regarding medication trials. Per his report, has been trying so many antidepressants they just do not work, and continued to be depressed. Some of them are Zoloft, Paxil, Effexor, Celexa, Prozac, Cymbalta, Lexapro. He also having history of taking Zyprexa more than 20 years ago due to hearing voices. Then the voices was calm. He never has a take it again after. History of Abilify but not sure if it is working as he can not recall. Regarding ADLs: He said that he had food at the halfway twice a day, but he is not showering for many days despite the fact that staff asked him to do so I just do not care about being clean . Reports very low energy, low motivation, been increased suicidal thoughts and depression. He used to love music and reading but not interested in doing anything like that anymore. Reported that he had gastric sleeve surgery back in August 2023 which he lost 230 lb. He weight 447 lb prior to the surgery. He identified that after the surgery he has been more depressed slowly over months. There was a time that he wanted to starve myself so I can when asked is that you that he has stopped eating at home. He also identified that he feel more depressed after surgery as he is not able to over eating like he did before. Family mental health illnesses: Reports that who both of his parents was depressed. Mom 11 years ago. 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 History of ECTs: Reports he had history of ECTs in 2010 when he was at in [facility].He felt worse after the treatment everything seems like a dream . He clarified that immediately after the treatment he feel that way which could be a side effects of ECT but not permanent. Educate patient on possible side effects ECTs. Patient denies having seizure during ECTs treatment, no seizure history no cardiac conditions/disease history. Reports history of hypertension, but not anymore. He also has been admitted to different hospitals for psychiatric admissions in the past couple of months. Reports staying at [facility] in December for a month. [facility] in the area names [facility]) in October for another month. Per email from his OP team- clinical director at [facility], they also express concerns of patient's conditions. It is noted that their concerns are very consistent with patient' report here on the unit. He also has been admitted to different hospitals for psychiatric admissions in the past couple of months. Reports staying at [facility] in December for a month. [facility] in the area names [facility]) in October for another month. Per email from his OP team- clinical director at [facility], they also express concerns of patient's conditions. It is noted that their concerns are very consistent with patient' report here on the unit. Alfredito has been in and out on inpatient level of care since October of this year, I believe every month, for a majority of the time. He was recently discharged from [facility] after a 1 month stay and within two hours of returning home wanted to return to the hospital, saying he was unwell, and within one day was sectioned by [facility], which is how he ended up with you now. ? He has been coming home and intentionally starving himself, even not eating for up to 1 week. We have known Alfredito for years and since this started in October, we have seen no significant improvement in his mental health or a return to baseline. In fact, we are observing his case as consistent with failure to thrive. We have been asking for him to be inpatient at [facility] or with you at [facility] for some time in order for him to be potentially considered for ECT level of treatment, if deemed appropriate. Multiple medication trials failture to target depressive symptoms. He will be a good candidate to get trial ECT treatment in combination with current medication regimens. Patient also agrees with the plan. We would start the treatment as soon as possible. Will discuss the case with in house psychiatrist-Dr. Ward to prepare for ECT treatment. Hope to start early next week. 04/02: Laying in bed. keeping to self. Patient continues to report feeling depressed; pt stated, I feel about the same. I spoke with the other provider and agreed to do ECT . He reports sleeping well. denies SI/HI/VH/AH. Encouraged to attend groups and shower. Continue current tx plan. Patient educated on: diagnosis, medication risk/benefits and therapeutic strategies Reason for continued inpatient stay Substantial Risk for: med/psych decompensation Time Spent With Patient Time: Total time managing care of this patient today _20___ minutes.
[2025-04-02 20:00] VITALS: BP 100/60; PULSE 76; RESP 16; TEMP 36.3; O2SAT 98
[2025-04-03 07:35] VITALS: BP 117/75; PULSE 66; RESP 20; TEMP 36.3; O2SAT 99
--- NOTE | 2025-04-03 07:54 | HO.PSYCHPN ---
Subjective Subjective Date of Service: 04/03/25 Reason For Visit: SI Subjective Notes: Conditional Voluntary Interim History: Laying in bed. keeping to self. Patient continues to report feeling depressed; pt stated, Maybe a little more energy . Hopeful related to wellbutrin and might negate need for ECT. Sleep good. No psychosis. No SI. Self care poor. Medication Compliance: Yes Side effects from medications: No Attending Groups: No Review of Systems Acute medical concerns: No Review of Systems Review of Systems unremarkable Mental Status Exam Mental Status Exam Narrative: Appearance: Casually dressed, unkempt, disheveled Behavior: Calm and cooperative, no PMA/PMR Eye contact is appropriate Speech: Normal volume and prosody Thought process logical and goal-directed Thought content: On treatment. Mood: depressed Affect: constricted/flat SI: Denies HI: denies VH/AH: none expressed Delusions: no Insight/judgment: some level of impairment. Diagnostics Vital Signs (24Hr): Vital Signs - 24 hr 04/02/25 20:00 Temperature 97.3 F Pulse Rate 76 Respiratory Rate 16 Blood Pressure 100/60 Pulse Oximetry 98 Oxygen Delivery Method Room Air BMI result Body Mass Index 31.2 Labs 03/26/25 15:45 03/27/25 08:31 Medications Medications Current Medications Acetaminophen (Acetaminophen 325 Mg Tablet) 650 mg PO Q6H PRN PRN Reason: Headache/Pain, Scale 1-10 Al Hydroxide/Mg Hydroxide (Magnesium Hydrox/Alum Hydrox 30 Ml Oral.Susp) 30 ml PO Q6H PRN PRN Reason: Heartburn/Nausea Aspirin (Aspirin Enteric Coated 81 Mg Tablet.) 81 mg PO DAILY [facility] Last Admin: 04/02/25 08:37 Dose: 81 mg Atorvastatin Calcium (Atorvastatin Calcium 20 Mg Tablet) 20 mg PO BEDTIME [facility] Last Admin: 04/02/25 21:06 Dose: 20 mg Bupropion HCl (Bupropion Hcl Xl 300 Mg Tab.Er.24h) 300 mg PO DAILY [facility] Last Admin: 04/02/25 08:37 Dose: 300 mg Hydroxyzine HCl (Hydroxyzine Hcl 25 Mg Tablet) 25 mg PO Q6H PRN PRN Reason: mild anxiety Last Admin: 03/26/25 23:24 Dose: 25 mg Lurasidone HCl (Lurasidone Hcl 40 Mg Tablet) 120 mg PO DAILY@1700 [facility] Last Admin: 04/02/25 17:28 Dose: 120 mg Magnesium Hydroxide (Milk Of Magnesia 30 Ml Oral.Susp) 30 ml PO DAILY PRN PRN Reason: Constipation Nicotine (Nicotine 21 Mg Patch.Td24) 21 mg TRANSDERMA DAILY PRN PRN Reason: nicotine craving Nicotine Polacrilex (Nicotine Polacrilex 2 Mg Gum) 2 mg BUCCAL Q2H PRN PRN Reason: Nicotine Cravings Olanzapine (Olanzapine 5 Mg Tablet) 5 mg PO BID PRN PRN Reason: agitation Trazodone HCl (Trazodone Hcl 50 Mg Tablet) 50 mg PO BEDTIME MRX1 PRN PRN Reason: Insomnia Last Admin: 03/26/25 23:24 Dose: 50 mg Allergies Allergies Allergy/AdvReac Type Severity Reaction Status Date / Time pumpkin Allergy Unknown Unknown Verified 12/24/24 12:26 Assessment & Plan Assessment & Plan (1) Bipolar disorder: Status: Acute Code(s): F31.9 - Bipolar disorder, unspecified (2) Depression: Status: Acute Code(s): F32.A - Depression, unspecified Plan 03/27: feels latuda 120 has been helpful. however, remains depressed. add wellbutrin XL 150 daily for depression, plan to increase to 300 mg daily in 3 days. may also consider ECT due to lack of improvement despite numerous recent hospitalizations + lethality of suicide attempts + recent self-abnegating behaviors. 03/28: no change in presentation, no requests or complaints. started wellbutrin 150 today. continue current mgmt 03/29/25: Slept well, no issues with appetite. Observed out on the unit, attended groups, engaging. Reports depression and 03/21, denies anxiety. Constricted affect, congruent with mood. Denies safety concerns. Compliant with medications. Denies side effects from Wellbutrin. Continue to encourage groups. 03/30/25: Patient slept for 6 hours, was medication compliant. He attended 2 groups yesterday, however today he is more isolated, in bed a lot more time, declines a couple groups. Reports depressed but no anxiety, flat affect, depressed, but cooperative during one-to-one assessment. He is receptive with the plan of Wellbutrin increased up to 300 mg for depression. Reports passive SI, denies plan or intention. Denies other safety concerns. Encourage patient to go to groups and shower daily. Increase Wellbutrin XL to 300 mg daily for depression. He reported that he has bipolar type II. 03/31: Laying in bed. keeping to self. showered. patient reports feeling depressed ; pt stated, I'm not having a good day. I don't want to do anything . flat affect. denies SI/HI/VH/AH. Per nursing, slept 8 hours. encouraged to attend groups. continue current tx plan. 04/01/25: Patient slept for 8 hours, poor meal intake yesterday but was medication compliant. Denies side effects. When asked about if he has poor appetite as he ate only 50 of breakfast, and 25 for lunch and not eating dinner, he said because I did not do the menu, so I got what I do not like . He shower yesterday, continued to reports depression 03/21. Denied anxiety. He does not feel any difference from Wellbutrin 150 when and when it was increased up to 300 mg. Denies SI/SIB/HI/AVH, isolative self, he plans to attend groups today. This provider spoke with patient in length regarding medication trials. Per his report, has been trying so many antidepressants they just do not work, and continued to be depressed. Some of them are Zoloft, Paxil, Effexor, Celexa, Prozac, Cymbalta, Lexapro. He also having history of taking Zyprexa more than 20 years ago due to hearing voices. Then the voices was calm. He never has a take it again after. History of Abilify but not sure if it is working as he can not recall. Regarding ADLs: He said that he had food at the alf twice a day, but he is not showering for many days despite the fact that staff asked him to do so I just do not care about being clean . Reports very low energy, low motivation, been increased suicidal thoughts and depression. He used to love music and reading but not interested in doing anything like that anymore. Reported that he had gastric sleeve surgery back in August 2023 which he lost 230 lb. He weight 447 lb prior to the surgery. He identified that after the surgery he has been more depressed slowly over months. There was a time that he wanted to starve myself so I can when asked is that you that he has stopped eating at home. He also identified that he feel more depressed after surgery as he is not able to over eating like he did before. Family mental health illnesses: Reports that who both of his parents was depressed. Mom 11 years ago. 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 History of ECTs: Reports he had history of ECTs in 2010 when he was at in [facility].He felt worse after the treatment everything seems like a dream . He clarified that immediately after the treatment he feel that way which could be a side effects of ECT but not permanent. Educate patient on possible side effects ECTs. Patient denies having seizure during ECTs treatment, no seizure history no cardiac conditions/disease history. Reports history of hypertension, but not anymore. He also has been admitted to different hospitals for psychiatric admissions in the past couple of months. Reports staying at [facility] in December for a month. [facility] in the area names [facility]) in October for another month. Per email from his OP team- clinical director at [facility], they also express concerns of patient's conditions. It is noted that their concerns are very consistent with patient' report here on the unit. He also has been admitted to different hospitals for psychiatric admissions in the past couple of months. Reports staying at [facility] in December for a month. [facility] in the area names [facility]) in October for another month. Per email from his OP team- clinical director at [facility], they also express concerns of patient's conditions. It is noted that their concerns are very consistent with patient' report here on the unit. Alfredito has been in and out on inpatient level of care since October of this year, I believe every month, for a majority of the time. He was recently discharged from [facility] after a 1 month stay and within two hours of returning home wanted to return to the hospital, saying he was unwell, and within one day was sectioned by [facility], which is how he ended up with you now. ? He has been coming home and intentionally starving himself, even not eating for up to 1 week. We have known Alfredito for years and since this started in October, we have seen no significant improvement in his mental health or a return to baseline. In fact, we are observing his case as consistent with failure to thrive. We have been asking for him to be inpatient at [facility] or with you at [facility] for some time in order for him to be potentially considered for ECT level of treatment, if deemed appropriate. Multiple medication trials failture to target depressive symptoms. He will be a good candidate to get trial ECT treatment in combination with current medication regimens. Patient also agrees with the plan. We would start the treatment as soon as possible. Will discuss the case with in house psychiatrist-Dr. Ward to prepare for ECT treatment. Hope to start early next week. 04/02: Laying in bed. keeping to self. Patient continues to report feeling depressed; pt stated, I feel about the same. I spoke with the other provider and agreed to do ECT . He reports sleeping well. denies SI/HI/VH/AH. Encouraged to attend groups and shower. Continue current tx plan. 04/03: no changes- just started wellbutrin Reason for continued inpatient stay Substantial Risk for: inability to function Time Spent With Patient Time: Total time managing care of this patient today ____ minutes.
[2025-04-03] MEDS: buPROPion HCl XL 300 MG TAB.ER.24H PO (08:51)
[2025-04-03] MEDS: Aspirin Enteric Coated 81 MG TABLET.DR PO (08:51)
[2025-04-03 20:00] VITALS: BP 111/65; PULSE 70; RESP 18; TEMP 36.4; O2SAT 97
[2025-04-04 07:20] VITALS: BP 122/74; PULSE 64; RESP 16; TEMP 36.2; O2SAT 95
[2025-04-04] MEDS: Aspirin Enteric Coated 81 MG TABLET.DR PO (09:03)
[2025-04-04] MEDS: buPROPion HCl XL 300 MG TAB.ER.24H PO (09:03)
--- NOTE | 2025-04-04 10:28 | HO.PSYCHPN ---
Subjective Subjective Date of Service: 04/04/25 Reason For Visit: SI Interim History: Remains isolative in bed. Still depressed and poor self care. Ref wellbutrin Maybe a little more energy . Sleep good. No psychosis. No SI. Medication Compliance: Yes Side effects from medications: No Attending Groups: No Review of Systems Acute medical concerns: No Review of Systems Review of Systems unremarkable Mental Status Exam Mental Status Exam Narrative: Appearance: Casually dressed, unkempt, disheveled in bed Behavior: Calm and cooperative, no PMA/PMR Eye contact is appropriate Speech: Normal volume and prosody Thought process logical and goal-directed Thought content: On treatment. Mood: depressed Affect: constricted/flat SI: Denies HI: denies VH/AH: none expressed Delusions: no Insight/judgment: some level of impairment. Diagnostics Vital Signs (24Hr): Vital Signs - 24 hr 04/03/25 20:00 04/04/25 07:20 Temperature 97.5 F 97.2 F Pulse Rate 70 64 Respiratory Rate 18 16 Blood Pressure 111/65 122/74 Pulse Oximetry 97 95 Oxygen Delivery Method Room Air Room Air BMI result Body Mass Index 31.2 Labs 03/26/25 15:45 03/27/25 08:31 Medications Medications Current Medications Acetaminophen (Acetaminophen 325 Mg Tablet) 650 mg PO Q6H PRN PRN Reason: Headache/Pain, Scale 1-10 Al Hydroxide/Mg Hydroxide (Magnesium Hydrox/Alum Hydrox 30 Ml Oral.Susp) 30 ml PO Q6H PRN PRN Reason: Heartburn/Nausea Aspirin (Aspirin Enteric Coated 81 Mg Tablet.) 81 mg PO DAILY [facility] Last Admin: 04/04/25 09:03 Dose: 81 mg Atorvastatin Calcium (Atorvastatin Calcium 20 Mg Tablet) 20 mg PO BEDTIME [facility] Last Admin: 04/03/25 20:31 Dose: 20 mg Bupropion HCl (Bupropion Hcl Xl 300 Mg Tab.Er.24h) 300 mg PO DAILY [facility] Last Admin: 04/04/25 09:03 Dose: 300 mg Hydroxyzine HCl (Hydroxyzine Hcl 25 Mg Tablet) 25 mg PO Q6H PRN PRN Reason: mild anxiety Last Admin: 03/26/25 23:24 Dose: 25 mg Lurasidone HCl (Lurasidone Hcl 40 Mg Tablet) 120 mg PO DAILY@1700 [facility] Last Admin: 08/23/25 17:21 Dose: 120 mg Magnesium Hydroxide (Milk Of Magnesia 30 Ml Oral.Susp) 30 ml PO DAILY PRN PRN Reason: Constipation Nicotine (Nicotine 21 Mg Patch.Td24) 21 mg TRANSDERMA DAILY PRN PRN Reason: nicotine craving Nicotine Polacrilex (Nicotine Polacrilex 2 Mg Gum) 2 mg BUCCAL Q2H PRN PRN Reason: Nicotine Cravings Olanzapine (Olanzapine 5 Mg Tablet) 5 mg PO BID PRN PRN Reason: agitation Trazodone HCl (Trazodone Hcl 50 Mg Tablet) 50 mg PO BEDTIME MRX1 PRN PRN Reason: Insomnia Last Admin: 03/26/25 23:24 Dose: 50 mg Allergies Allergies Allergy/AdvReac Type Severity Reaction Status Date / Time pumpkin Allergy Unknown Unknown Verified 12/24/24 12:26 Assessment & Plan Assessment & Plan (1) Bipolar disorder: Status: Acute Code(s): F31.9 - Bipolar disorder, unspecified (2) Depression: Status: Acute Code(s): F32.A - Depression, unspecified Plan 03/27: feels latuda 120 has been helpful. however, remains depressed. add wellbutrin XL 150 daily for depression, plan to increase to 300 mg daily in 3 days. may also consider ECT due to lack of improvement despite numerous recent hospitalizations + lethality of suicide attempts + recent self-abnegating behaviors. 03/28: no change in presentation, no requests or complaints. started wellbutrin 150 today. continue current mgmt 03/29/25: Slept well, no issues with appetite. Observed out on the unit, attended groups, engaging. Reports depression and 03/21, denies anxiety. Constricted affect, congruent with mood. Denies safety concerns. Compliant with medications. Denies side effects from Wellbutrin. Continue to encourage groups. 03/30/25: Patient slept for 6 hours, was medication compliant. He attended 2 groups yesterday, however today he is more isolated, in bed a lot more time, declines a couple groups. Reports depressed but no anxiety, flat affect, depressed, but cooperative during one-to-one assessment. He is receptive with the plan of Wellbutrin increased up to 300 mg for depression. Reports passive SI, denies plan or intention. Denies other safety concerns. Encourage patient to go to groups and shower daily. Increase Wellbutrin XL to 300 mg daily for depression. He reported that he has bipolar type II. 03/31: Laying in bed. keeping to self. showered. patient reports feeling depressed ; pt stated, I'm not having a good day. I don't want to do anything . flat affect. denies SI/HI/VH/AH. Per nursing, slept 8 hours. encouraged to attend groups. continue current tx plan. 04/01/25: Patient slept for 8 hours, poor meal intake yesterday but was medication compliant. Denies side effects. When asked about if he has poor appetite as he ate only 50 of breakfast, and 25 for lunch and not eating dinner, he said because I did not do the menu, so I got what I do not like . He shower yesterday, continued to reports depression 03/21. Denied anxiety. He does not feel any difference from Wellbutrin 150 when and when it was increased up to 300 mg. Denies SI/SIB/HI/AVH, isolative self, he plans to attend groups today. This provider spoke with patient in length regarding medication trials. Per his report, has been trying so many antidepressants they just do not work, and continued to be depressed. Some of them are Zoloft, Paxil, Effexor, Celexa, Prozac, Cymbalta, Lexapro. He also having history of taking Zyprexa more than 20 years ago due to hearing voices. Then the voices was calm. He never has a take it again after. History of Abilify but not sure if it is working as he can not recall. Regarding ADLs: He said that he had food at the halfway twice a day, but he is not showering for many days despite the fact that staff asked him to do so I just do not care about being clean . Reports very low energy, low motivation, been increased suicidal thoughts and depression. He used to love music and reading but not interested in doing anything like that anymore. Reported that he had gastric sleeve surgery back in August 2023 which he lost 230 lb. He weight 447 lb prior to the surgery. He identified that after the surgery he has been more depressed slowly over months. There was a time that he wanted to starve myself so I can when asked is that you that he has stopped eating at home. He also identified that he feel more depressed after surgery as he is not able to over eating like he did before. Family mental health illnesses: Reports that who both of his parents was depressed. Mom 11 years ago. 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 History of ECTs: Reports he had history of ECTs in 2010 when he was at in [facility].He felt worse after the treatment everything seems like a dream . He clarified that immediately after the treatment he feel that way which could be a side effects of ECT but not permanent. Educate patient on possible side effects ECTs. Patient denies having seizure during ECTs treatment, no seizure history no cardiac conditions/disease history. Reports history of hypertension, but not anymore. He also has been admitted to different hospitals for psychiatric admissions in the past couple of months. Reports staying at [facility] in December for a month. [facility] in the area names [facility]) in October for another month. Per email from his OP team- clinical director at [facility], they also express concerns of patient's conditions. It is noted that their concerns are very consistent with patient' report here on the unit. He also has been admitted to different hospitals for psychiatric admissions in the past couple of months. Reports staying at [facility] in December for a month. [facility] in the area names [facility]) in October for another month. Per email from his OP team- clinical director at [facility], they also express concerns of patient's conditions. It is noted that their concerns are very consistent with patient' report here on the unit. Alfredito has been in and out on inpatient level of care since October of this year, I believe every month, for a majority of the time. He was recently discharged from [facility] after a 1 month stay and within two hours of returning home wanted to return to the hospital, saying he was unwell, and within one day was sectioned by [facility], which is how he ended up with you now. ? He has been coming home and intentionally starving himself, even not eating for up to 1 week. We have known Alfredito for years and since this started in October, we have seen no significant improvement in his mental health or a return to baseline. In fact, we are observing his case as consistent with failure to thrive. We have been asking for him to be inpatient at [facility] or with you at [facility] for some time in order for him to be potentially considered for ECT level of treatment, if deemed appropriate. Multiple medication trials failture to target depressive symptoms. He will be a good candidate to get trial ECT treatment in combination with current medication regimens. Patient also agrees with the plan. We would start the treatment as soon as possible. Will discuss the case with in house psychiatrist-Dr. Ward to prepare for ECT treatment. [facility] to start [facility] next [facility]. 04/02: Laying in bed. keeping to self. Patient continues to report feeling depressed; pt stated, I feel about the same. I spoke with the other provider and agreed to do ECT . He reports sleeping well. denies SI/HI/VH/AH. Encouraged to attend groups and shower. Continue current tx plan. 04/03: no changes- just started wellbutrin 04/04: no changes Reason for continued inpatient stay Substantial Risk for: inability to function Time Spent With Patient Time: Total time managing care of this patient today ____ minutes.
[2025-04-04 19:41] VITALS: BP 114/71; PULSE 72; RESP 18; TEMP 36.7; O2SAT 100
[2025-04-05 07:49] VITALS: BP 116/78; PULSE 69; RESP 18; TEMP 36.6; O2SAT 97
[2025-04-05 07:51] VITALS: BP 116/78; PULSE 69; RESP 18; TEMP 36.6; O2SAT 97
[2025-04-05] MEDS: buPROPion HCl XL 300 MG TAB.ER.24H PO (08:38)
[2025-04-05] MEDS: Aspirin Enteric Coated 81 MG TABLET.DR PO (08:38)
--- NOTE | 2025-04-05 13:11 | HO.PSYCHPN ---
Subjective Subjective Date of Service: 04/05/25 Reason For Visit: SI Subjective Notes: Conditional Voluntary Healthcare Proxy: No Guardianship: No Medical Problems Affecting Mental Status: No Interim History: Medical record and nursing notes reviewed; case discussed during rounds with team/nursing staff, and met with patient for supportive therapy/psychoeducation, as well as medication management. Patient slept for 8 hours, was medication compliant. Denies side effects, report anxiety a 2-3/10 but still 8/10 for depression. No change since started Wellbutrin. He agrees to get Wellbutrin up to 450mg daily for depression. Isolative in room, staring up to the ceiling. Discuss with patient of option to start on Intuniv for severe depression. Patient declines it at this current time but agree to see Welbutrin increased would be helpful. He agrees with ECT. Encourage groups, he says he was at art group out to dinning area but there are too much so he went back to his room. Report not many groups offered over the weekends. Medication Compliance: Yes Side effects from medications: No Attending Groups: Intermittent Review of Systems Acute medical concerns: No Medical Review of Systems: unchanged Review of Systems Review of Systems Constitutional: Denies fatigue and Denies fever(s) Cardiovascular: Denies chest pain and Denies dyspnea Respiratory: Denies dyspnea Gastrointestinal: Denies abdominal pain Psychiatric: denies suicidal ideation Endocrine: Denies fatigue Yes all other systems are reviewed and are negative Mental Status Exam Mental Status Exam Narrative: Appearance: Casually dressed, unkempt, disheveled in bed Behavior: Calm and cooperative, no PMA/PMR Eye contact is appropriate Speech: Normal volume and prosody Thought process logical and goal-directed Thought content: On treatment. Mood: depressed Affect: constricted/flat SI: Denies HI: denies VH/AH: none expressed Delusions: no Insight/judgment: some level of impairment. Diagnostics Vital Signs (24Hr): Vital Signs - 24 hr 04/04/25 19:41 04/05/25 07:49 04/05/25 07:51 Temperature 98.1 F 97.8 F 97.8 F Pulse Rate 72 69 69 Respiratory Rate 18 18 18 Blood Pressure 114/71 116/78 116/78 Pulse Oximetry 100 97 97 Oxygen Delivery Method Room Air Room Air Room Air BMI result Body Mass Index 31.2 Labs 03/26/25 15:45 03/27/25 08:31 Medications Medications Current Medications Acetaminophen (Acetaminophen 325 Mg Tablet) 650 mg PO Q6H PRN PRN Reason: Headache/Pain, Scale 1-10 Al Hydroxide/Mg Hydroxide (Magnesium Hydrox/Alum Hydrox 30 Ml Oral.Susp) 30 ml PO Q6H PRN PRN Reason: Heartburn/Nausea Aspirin (Aspirin Enteric Coated 81 Mg Tablet.) 81 mg PO DAILY [facility] Last Admin: 04/05/25 08:38 Dose: 81 mg Atorvastatin Calcium (Atorvastatin Calcium 20 Mg Tablet) 20 mg PO BEDTIME [facility] Last Admin: 04/04/25 20:21 Dose: 20 mg Bupropion HCl (Bupropion Hcl Xl 300 Mg Tab.Er.24h) 300 mg PO DAILY [facility] Last Admin: 04/05/25 08:38 Dose: 300 mg Hydroxyzine HCl (Hydroxyzine Hcl 25 Mg Tablet) 25 mg PO Q6H PRN PRN Reason: mild anxiety Last Admin: 03/26/25 23:24 Dose: 25 mg Lurasidone HCl (Lurasidone Hcl 40 Mg Tablet) 120 mg PO DAILY@1700 [facility] Last Admin: 04/04/25 17:27 Dose: 120 mg Magnesium Hydroxide (Milk Of Magnesia 30 Ml Oral.Susp) 30 ml PO DAILY PRN PRN Reason: Constipation Nicotine (Nicotine 21 Mg Patch.Td24) 21 mg TRANSDERMA DAILY PRN PRN Reason: nicotine craving Nicotine Polacrilex (Nicotine Polacrilex 2 Mg Gum) 2 mg BUCCAL Q2H PRN PRN Reason: Nicotine Cravings Olanzapine (Olanzapine 5 Mg Tablet) 5 mg PO BID PRN PRN Reason: agitation Trazodone HCl (Trazodone Hcl 50 Mg Tablet) 50 mg PO BEDTIME MRX1 PRN PRN Reason: Insomnia Last Admin: 03/26/25 23:24 Dose: 50 mg Allergies Allergies Allergy/AdvReac Type Severity Reaction Status Date / Time pumpkin Allergy Unknown Unknown Verified 12/24/24 12:26 Assessment & Plan Assessment & Plan (1) Bipolar disorder: Status: Acute Code(s): F31.9 - Bipolar disorder, unspecified (2) Depression: Status: Acute Code(s): F32.A - Depression, unspecified Plan 03/27: feels latuda 120 has been helpful. however, remains depressed. add wellbutrin XL 150 daily for depression, plan to increase to 300 mg daily in 3 days. may also consider ECT due to lack of improvement despite numerous recent hospitalizations + lethality of suicide attempts + recent self-abnegating behaviors. 03/28: no change in presentation, no requests or complaints. started wellbutrin 150 today. continue current mgmt 03/29/25: Slept well, no issues with appetite. Observed out on the unit, attended groups, engaging. Reports depression and 03/21, denies anxiety. Constricted affect, congruent with mood. Denies safety concerns. Compliant with medications. Denies side effects from Wellbutrin. Continue to encourage groups. 03/30/25: Patient slept for 6 hours, was medication compliant. He attended 2 groups yesterday, however today he is more isolated, in bed a lot more time, declines a couple groups. Reports depressed but no anxiety, flat affect, depressed, but cooperative during one-to-one assessment. He is receptive with the plan of Wellbutrin increased up to 300 mg for depression. Reports passive SI, denies plan or intention. Denies other safety concerns. Encourage patient to go to groups and shower daily. Increase Wellbutrin XL to 300 mg daily for depression. He reported that he has bipolar type II. 03/31: Laying in bed. keeping to self. showered. patient reports feeling depressed ; pt stated, I'm not having a good day. I don't want to do anything . flat affect. denies SI/HI/VH/AH. Per nursing, slept 8 hours. encouraged to attend groups. continue current tx plan. 04/01/25: Patient slept for 8 hours, poor meal intake yesterday but was medication compliant. Denies side effects. When asked about if he has poor appetite as he ate only 50 of breakfast, and 25 for lunch and not eating dinner, he said because I did not do the menu, so I got what I do not like . He shower yesterday, continued to reports depression 03/21. Denied anxiety. He does not feel any difference from Wellbutrin 150 when and when it was increased up to 300 mg. Denies SI/SIB/HI/AVH, isolative self, he plans to attend groups today. This provider spoke with patient in length regarding medication trials. Per his report, has been trying so many antidepressants they just do not work, and continued to be depressed. Some of them are Zoloft, Paxil, Effexor, Celexa, Prozac, Cymbalta, Lexapro. He also having history of taking Zyprexa more than 20 years ago due to hearing voices. Then the voices was calm. He never has a take it again after. History of Abilify but not sure if it is working as he can not recall. Regarding ADLs: He said that [facility], but he is not showering for many days despite the fact that staff asked him to do so I just do not care about being clean . Reports very low energy, low motivation, been increased suicidal thoughts and depression. He used to love music and reading but not interested in doing anything like that anymore. Reported that he had gastric sleeve surgery back in August 2023 which he lost 230 lb. He weight 447 lb prior to the surgery. He identified that after the surgery he has been more depressed slowly over months. There was a time that he wanted to starve myself so I can when asked is that you that he has stopped eating at home. He also identified that he feel more depressed after surgery as he is not able to over eating like he did before. Family mental health illnesses: Reports that who both of his parents was depressed. Mom 11 years ago. 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 History of ECTs: Reports he had history of ECTs in 2010 when he was at in [facility].He felt worse after the treatment everything seems like a dream . He clarified that immediately after the treatment he feel that way which could be a side effects of ECT but not permanent. Educate patient on possible side effects ECTs. Patient denies having seizure during ECTs treatment, no seizure history no cardiac conditions/disease history. Reports history of hypertension, but not anymore. He also has been admitted to different hospitals for psychiatric admissions in the past couple of months. Reports staying at [facility] in December for a month. New hospital in the area names [facility] [place] in October for another month. Per email from his OP team- clinical director at [facility], they also express concerns of patient's conditions. It is noted that their concerns are very consistent with patient' report here on the unit. He also has been admitted to different hospitals for psychiatric admissions in the past couple of months. Reports staying at [facility] in December for a month. New hospital in the area names [facility] ([facility] [place]) in October for another month. Per email from his OP team- clinical director at [facility], they also express concerns of patient's conditions. It is noted that their concerns are very consistent with patient' report here on the unit. Alfredito has been in and out on inpatient level of care since October of this year, I believe every month, for a majority of the time. He was recently discharged from [facility] after a 1 month stay and within two hours of returning home wanted to return to the hospital, saying he was unwell, and within one day was sectioned by [facility], which is how he ended up with you now. ? He has been coming home and intentionally starving himself, even not eating for up to 1 week. We have known Alfredito for years and since this started in October, we have seen no significant improvement in his mental health or a return to baseline. In fact, we are observing his case as consistent with failure to thrive. We have been asking for him to be inpatient at [facility] or with you at [facility] for some time in order for him to be potentially considered for ECT level of treatment, if deemed appropriate. Multiple medication trials failture to target depressive symptoms. He will be a good candidate to get trial ECT treatment in combination with current medication regimens. Patient also agrees with the plan. We would start the treatment as soon as possible. Will discuss the case with in house psychiatrist-Dr. Ward to prepare for ECT treatment. [facility] to start early next week. 04/02: Laying in bed. keeping to self. Patient continues to report feeling depressed; pt stated, I feel about the same. I spoke with the other provider and agreed to do ECT . He reports sleeping well. denies SI/HI/VH/AH. Encouraged to attend groups and shower. Continue current tx plan. 04/03: no changes- just started wellbutrin 04/04: no changes 04/05/25: report anxiety a 2-3/10 but still 8/10 for depression. No change since started Wellbutrin. He agrees to get Wellbutrin up to 450mg daily for depression. Isolative in room, staring up to the ceiling. Discuss with patient of option to start on Intuniv for severe depression. Patient declines it at this current time but agree to see Welbutrin increased would be helpful. He agrees with ECT. Encourage groups, he says he was at art group out to dinning area but there are too much so he went back to his room. Report not many groups offered over the weekends. Patient educated on: diagnosis, medication risk/benefits and therapeutic strategies Informed Consent: understands and further education needed Reason for continued inpatient stay Substantial Risk for: med/psych decompensation Time Spent With Patient Time: Total time managing care of this patient today ____ minutes.
[2025-04-05 20:00] VITALS: BP 121/76; PULSE 66; RESP 16; TEMP 36.6; O2SAT 97
[2025-04-06 08:00] VITALS: BP 110/64; PULSE 68; RESP 18; TEMP 36.4; O2SAT 98
[2025-04-06] MEDS: buPROPion HCl XL 150 MG TAB.ER.24H 450 MG PO (08:24)
[2025-04-06] MEDS: Aspirin Enteric Coated 81 MG TABLET.DR PO (08:24)
--- NOTE | 2025-04-06 13:15 | ECG_ITS ---
Test Reason : pre ect Blood Pressure : */* mmHG Vent. Rate : 68 BPM Atrial Rate : 68 BPM P-R Int : 152 ms QRS Dur : 100 ms QT Int : 418 ms P-R-T Axes : 51 13 42 degrees QTcB Int : 444 ms Normal sinus rhythm Incomplete right bundle branch block Borderline ECG When compared with ECG of 26-Mar-2025 14:47, No significant change was found Referred By: Eloina Christensen Electronically Signed By: OCTAVIO SILVESTRE
[2025-04-06 14:53] LABS: MANUAL DIFF FLAG NO
[2025-04-06 14:56] LABS: Hematocrit 40.9 % (42.0-52.0); Hemoglobin 13.4 g/dl (14.0-18.0); Imm Gran Abs Auto 0.04 X10*3/uL (0.00-0.03); Imm Gran Pct Auto 0.4 % (0.0-0.4); Lymphocytes Absolute Auto 3.0 X10*3/uL (1.2-4.9); Mean Corpuscular HGB Conc 32.8 g/dl (31.0-36.0); Mean Corpuscular Hemoglobin 29.2 pg (27.0-33.0); Mean Corpuscular Volume 89.1 fL (80.0-98.0); NRBC Abs Auto 0.000 X10*3/uL (0.0-0.012); NRBC Pct Auto 0.0 /100WBC (0.0-0.2); Platelet Count 303 X10*3/uL (160-400); Red Blood Count 4.59 X10*6/uL (4.60-5.80); White Blood Count 9.1 X10*3/uL (4.8-10.8)
[2025-04-06 15:14] LABS: Alanine Aminotransferase 23 U/L (0-40); Albumin Level 3.9 g/dL (3.5-5.0); Alkaline Phosphatase 66 U/L (39-117); Anion Gap 15 (12-20); Aspartate Amino Transferase 26 U/L (5-37); Blood Urea Nitrogen 17 mg/dL (9-16); Calcium 9.4 mg/dL (8.4-10.2); Carbon Dioxide 28 mmol/L (22-29); Chloride 105 mmol/L (96-108); Creatinine Clr Calc Pharmacy 75.5; Estimated Glomerular Filt Rate 56; Potassium 4.6 mmol/L (3.3-5.1); Sodium 143 mmol/L (135-145); Total Protein 6.4 g/dL (6.5-8.0)
[2025-04-06 20:00] VITALS: BP 134/73; PULSE 72; RESP 16; TEMP 36.6; O2SAT 98
--- NOTE | 2025-04-06 21:29 | P.PNPSI_ITS ---
Subjective Subjective Date of Service: 04/06/25 Reason For Visit: SI Subjective Notes: Conditional Voluntary Healthcare Proxy: No Guardianship: No Medical Problems Affecting Mental Status: No Interim History: Medical record and nursing notes reviewed; case discussed during rounds with team/nursing staff, and met with patient for supportive therapy/psychoeducation, as well as medication management. Patient slept for 6 hours, have a sleep study done last night. Reported that he did not sleep well. Appetite is okay. Mood is depressed 03/21, denies anxiety today. Denies suicidal thoughts, but reports he has passive SI yesterday intrusive, just do not Wanna live anymore . Denies hallucinations. Address with patient of why he having bowel movement in the shower. He said it is just one episode. Reports he feel constipated. Agree with Colace. He also inform regarding the ECT which was approved by the insurance. He compliant with medication, however reports he has not feeling any difference in terms of depression at since started on Wellbutrin. Encourage groups attendance. Observe him later on during the day reading at a table in dining area. Medication Compliance: Yes Side effects from medications: No Attending Groups: No Review of Systems Acute medical concerns: No Medical Review of Systems: unchanged Review of Systems Review of Systems Constitutional: Denies fatigue and Denies fever(s) Cardiovascular: Denies chest pain and Denies dyspnea Respiratory: Denies dyspnea Gastrointestinal: Denies abdominal pain Psychiatric: denies suicidal ideation Endocrine: Denies fatigue Yes all other systems are reviewed and are negative Mental Status Exam Mental Status Exam Narrative: Appearance: Casually dressed, unkempt, disheveled in bed Behavior: Calm and cooperative, no PMA/PMR Eye contact is appropriate Speech: Normal volume and prosody Thought process logical and goal-directed Thought content: On treatment. Mood: depressed Affect: constricted/flat SI: Denies HI: denies VH/AH: none expressed Delusions: no Insight/judgment: some level of impairment. Diagnostics Vital Signs (24Hr): Vital Signs - 24 hr 04/06/25 08:00 04/06/25 20:00 Temperature 97.6 F 97.9 F Pulse Rate 68 72 Respiratory Rate 18 16 Blood Pressure 110/64 134/73 Pulse Oximetry 98 98 Oxygen Delivery Method Room Air Room Air BMI result Body Mass Index 31.2 Labs 04/06/25 14:28 04/06/25 14:28 Labs: Laboratory Results - last 48 hr 04/06/25 14:28 WBC 9.1 RBC 4.59 L Hgb 13.4 L Hct 40.9 L MCV 89.1 MCH 29.2 MCHC 32.8 RDW 14.0 Plt Count 303 D MPV 10.6 Immature Gran % (Auto) 0.4 Neut % (Auto) 58.1 Lymph % (Auto) 32.8 [place] % (Auto) 6.4 Eos % (Auto) 2.1 Baso % (Auto) 0.2 Lymph # (Auto) 3.0 [place] # (Auto) 0.6 Eos # (Auto) 0.2 Baso # (Auto) 0.0 Abs Immat Gran (auto) 0.04 H Absolute Neuts (auto) 5.3 Absolute Nucleated RBC 0.000 Nucleated RBC % (auto) 0.0 Sodium 143 Potassium 4.6 Chloride 105 Carbon Dioxide 28 Anion Gap 15 BUN 17 H Creatinine 1.35 Estim Creat Clear Calc 75.5 Estimated GFR 56 Random Glucose 96 Calcium 9.4 Total Bilirubin 0.6 AST 26 ALT 23 Alkaline Phosphatase 66 Total Protein 6.4 L Albumin 3.9 EKG EKG: reviewed Imaging Radiology Impressions: ITS Impressions Head CT 04/06/25 13:54 IMPRESSION: No acute intracranial hemorrhage. Bifrontal bitemporal lobes atrophy. Electronically signed by: Roque Guillen MD 04/06/2025 02:15 PM EDT RP Medications Medications Current Medications Acetaminophen (Acetaminophen 325 Mg Tablet) 650 mg PO Q6H PRN PRN Reason: Headache/Pain, Scale 1-10 Al Hydroxide/Mg Hydroxide (Magnesium Hydrox/Alum Hydrox 30 Ml Oral.Susp) 30 ml PO Q6H PRN PRN Reason: Heartburn/Nausea Aspirin (Aspirin Enteric Coated 81 Mg Tablet.) 81 mg PO DAILY [facility] Last Admin: 04/06/25 08:24 Dose: 81 mg Atorvastatin Calcium (Atorvastatin Calcium 20 Mg Tablet) 20 mg PO BEDTIME JENNIFER Last Admin: 04/06/25 20:36 Dose: 20 mg Bupropion HCl (Bupropion Hcl Xl 150 Mg Tab.Er.24h) 450 mg PO DAILY [facility] Last Admin: 04/06/25 08:24 Dose: 450 mg Hydroxyzine HCl (Hydroxyzine Hcl 25 Mg Tablet) 25 mg PO Q6H PRN PRN Reason: mild anxiety Last Admin: 03/26/25 23:24 Dose: 25 mg Lurasidone HCl (Lurasidone Hcl 40 Mg Tablet) 120 mg PO DAILY@1700 JENNIFER Last Admin: 04/06/25 17:08 Dose: 120 mg Magnesium Hydroxide (Milk Of Magnesia 30 Ml Oral.Susp) 30 ml PO DAILY PRN PRN Reason: Constipation Nicotine (Nicotine 21 Mg Patch.Td24) 21 mg TRANSDERMA DAILY PRN PRN Reason: nicotine craving Nicotine Polacrilex (Nicotine Polacrilex 2 Mg Gum) 2 mg BUCCAL Q2H PRN PRN Reason: Nicotine Cravings Olanzapine (Olanzapine 5 Mg Tablet) 5 mg PO BID PRN PRN Reason: agitation Trazodone HCl (Trazodone Hcl 50 Mg Tablet) 50 mg PO BEDTIME MRX1 PRN PRN Reason: Insomnia Last Admin: 04/05/25 23:14 Dose: 50 mg Allergies Allergies Allergy/AdvReac Type Severity Reaction Status Date / Time pumpkin Allergy Unknown Unknown Verified 12/24/24 12:26 Assessment & Plan Assessment & Plan (1) Bipolar disorder: Status: Acute Code(s): F31.9 - Bipolar disorder, unspecified (2) Depression: Status: Acute Code(s): F32.A - Depression, unspecified Plan 03/27: feels latuda 120 has been helpful. however, remains depressed. add wellbutrin XL 150 daily for depression, plan to increase to 300 mg daily in 3 days. may also consider ECT due to lack of improvement despite numerous recent hospitalizations + lethality of suicide attempts + recent self-abnegating behaviors. 03/28: no change in presentation, no requests or complaints. started wellbutrin 150 today. continue current mgmt 03/29/25: Slept well, no issues with appetite. Observed out on the unit, attended groups, engaging. Reports depression and 03/21, denies anxiety. Constricted affect, congruent with mood. Denies safety concerns. Compliant with medications. Denies side effects from Wellbutrin. Continue to encourage groups. 03/30/25: Patient slept for 6 hours, was medication compliant. He attended 2 groups yesterday, however today he is more isolated, in bed a lot more time, declines a couple groups. Reports depressed but no anxiety, flat affect, depressed, but cooperative during one-to-one assessment. He is receptive with the plan of Wellbutrin increased up to 300 mg for depression. Reports passive SI, denies plan or intention. Denies other safety concerns. Encourage patient to go to groups and shower daily. Increase Wellbutrin XL to 300 mg daily for depression. He reported that he has bipolar type II. 03/31: Laying in bed. keeping to self. showered. patient reports feeling depressed ; pt stated, I'm not having a good day. I don't want to do anything . flat affect. denies SI/HI/VH/AH. Per nursing, slept 8 hours. encouraged to attend groups. continue current tx plan. 04/01/25: Patient slept for 8 hours, poor meal intake yesterday but was medication compliant. Denies side effects. When asked about if he has poor appetite as he ate only 50 of breakfast, and 25 for lunch and not eating dinner, he said because I did not do the menu, so I got what I do not like . He shower yesterday, continued to reports depression 03/21. Denied anxiety. He does not feel any difference from Wellbutrin 150 when and when it was increased up to 300 mg. Denies SI/SIB/HI/AVH, isolative self, he plans to attend groups today. This provider spoke with patient in length regarding medication trials. Per his report, has been trying so many antidepressants they just do not work, and continued to be depressed. Some of them are Zoloft, Paxil, Effexor, Celexa, Prozac, Cymbalta, Lexapro. He also having history of taking Zyprexa more than 20 years ago due to hearing voices. Then the voices was calm. He never has a take it again after. History of Abilify but not sure if it is working as he can not recall. Regarding ADLs: He said that he had food at the snf twice a day, but he is not showering for many days despite the fact that staff asked him to do so I just do not care about being clean . Reports very low energy, low motivation, been increased suicidal thoughts and depression. He used to love music and reading but not interested in doing anything like that anymore. Reported that he had gastric sleeve surgery back in August 2023 which he lost 230 lb. He weight 447 lb prior to the surgery. He identified that after the surgery he has been more depressed slowly over months. There was a time that he wanted to starve myself so I can when asked is that you that he has stopped eating at home. He also identified that he feel more depressed after surgery as he is not able to over eating like he did before. Family mental health illnesses: Reports that who both of his parents was depressed. Mom 11 years ago. 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 History of ECTs: Reports he had history of ECTs in 2010 when he was at in [facility].He felt worse after the treatment everything seems like a dream . He clarified that immediately after the treatment he feel that way which could be a side effects of ECT but not permanent. Educate patient on possible side effects ECTs. Patient denies having seizure during ECTs treatment, no seizure history no cardiac conditions/disease history. Reports history of hypertension, but not anymore. He also has been admitted to different hospitals for psychiatric admissions in the past couple of months. Reports staying at [facility] in December for a month. [facility] in the area names [facility]) in October for another month. Per email from his OP team- clinical director at [facility], they also express concerns of patient's conditions. It is noted that their concerns are very consistent with patient' report here on the unit. He also has been admitted to different hospitals for psychiatric admissions in the past couple of months. Reports staying at [facility] in December for a month. [facility] in the area names [facility]) in October for another month. Per email from his OP team- clinical director at [facility], they also express concerns of patient's conditions. It is noted that their concerns are very consistent with patient' report here on the unit. Alfredito has been in and out on inpatient level of care since October of this year, I believe every month, for a majority of the time. He was recently discharged from [facility] after a 1 month stay and within two hours of returning home wanted to return to the hospital, saying he was unwell, and within one day was sectioned by [facility] Crisis, which is how he ended up with you now. ? He has been coming home and intentionally starving himself, even not eating for up to 1 week. We have known Alfredito for years and since this started in October, we have seen no significant improvement in his mental health or a return to baseline. In fact, we are observing his case as consistent with failure to thrive. We have been asking for him to be inpatient at [facility] or with you at [facility] for some time in order for him to be potentially considered for ECT level of treatment, if deemed appropriate. Multiple medication trials failture to target depressive symptoms. He will be a good candidate to get trial ECT treatment in combination with current medication regimens. Patient also agrees with the plan. We would start the treatment as soon as possible. Will discuss the case with in house psychiatrist-Dr. Ward to prepare for ECT treatment. Hope to start early next week. 04/02: Laying in bed. keeping to self. Patient continues to report feeling depressed; pt stated, I feel about the same. I spoke with the other provider and agreed to do ECT . He reports sleeping well. denies SI/HI/VH/AH. Encouraged to attend groups and shower. Continue current tx plan. 04/03: no changes- just started wellbutrin 04/04: no changes 04/05/25: report anxiety a 2-3 but still 03/21 for depression. No change since started Wellbutrin. He agrees to get Wellbutrin up to 450mg daily for depression. Isolative in room, staring up to the ceiling. Discuss with patient of option to start on Intuniv for severe depression. Patient declines it at this current time but agree to see Welbutrin increased would be helpful. He agrees with ECT. Encourage groups, he says he was at art group out to dinning area but there are too much so he went back to his room. Report not many groups offered over the weekends. 04/06/25: Patient slept for 6 hours, have a sleep study done last night. Reported that he did not sleep well. Appetite is okay. Mood is depressed 03/21, denies anxiety today. Denies suicidal thoughts, but reports he has passive SI yesterday intrusive, just do not Wanna live anymore . Denies hallucinations. Address with patient of why he having bowel movement in the shower. He said it is just one episode. Reports he feel constipated. Agree with Kun. He also inform regarding the ECT which was approved by the insurance. He compliant with medication, however reports he has not feeling any difference in terms of depression at since started on Wellbutrin. Encourage groups attendance. Observe him later on during the day reading at a table in dining area. Colace 100mg BID for constipation. ECT consult placed: Patient may be seen by tomorrow by Dr. Ward. Procedure done preparing for the ECT: Head CT scan negative, EKG normal sinus rhythm, Incomplete right bundle branch block. Borderline ECG_ no change when compare to previous EKG. Unremarkable CBC with diff. Patient educated on: diagnosis, medication risk/benefits and therapeutic strategies Informed Consent: further education needed Reason for continued inpatient stay Substantial Risk for: med/psych decompensation Time Spent With Patient Time: Total time managing care of this patient today ____ minutes.
[2025-04-07 07:56] VITALS: BP 136/86; PULSE 65; RESP 14; TEMP 36.4; O2SAT 96
[2025-04-07] MEDS: Aspirin Enteric Coated 81 MG TABLET.DR PO (08:33)
[2025-04-07] MEDS: buPROPion HCl XL 150 MG TAB.ER.24H 450 MG PO (08:33)
--- NOTE | 2025-04-07 12:35 | HO.ECTCONS_ITS ---
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 He denied any headache, chest pain, shortness on breath, nausea, cough, vomiting or diarrhea. He denied history of myocardial infarction, CAD, chronic kidney disease or hypertension. Patient had ECT in the past without complications. Blood workup showed no leukocytosis. Hemoglobin is 13.4 and platelets 303. There are no significant electrolyte imbalances. BUN 17 and creatinine is 135. LFTs are normal. TSH is 2.42. Head CT scan showed no acute findings. ECG 04/06/2025 showed normal sinus rhythm, incomplete right bundle-branch block without acute ischemic changes. Review of Systems 2 Review of Systems: All 12 systems were reviewed and normal except as noted in HPI. [facility], [facility] Medical History (Updated 04/07/25 @ 12:54 by Alexandr Stewart MD) Obesity LUIS (obstructive sleep apnea) HLD (hyperlipidemia) HTN (hypertension) CVA (cerebral vascular accident) Social History Household Members: Other Household Members Other:: transitional housing Housing: Other Do you presently have visiting nurse or other home services: No Patient Tobacco Use Status: Never used Tobacco Second Hand Smoke Exposure: Yes Currently Displaying Signs/Symptoms of Drug Intoxication Withdrawal: No Have you been hit, kicked, punched, or otherwise hurt by someone within the past year? If so, by whom?: No Do you feel safe in your current relationship?: No Current Relationship Is there a partner from a previous relationship who is making you feel unsafe now?: No Are you made to feel afraid or neglected: No Advance Directives: No Advance Directives Information Provided: No Do you have thoughts of harming others: None Do you have a plan to hurt others: No Plan Recently lost weight without trying: No Eating poorly because of decreased appetite: No Nutrition Risks: No Nutritional Risk Poor oral hygiene: Yes (very dry scalp) service: No Sexual orientation: Straight/Heterosexual Meds Allergies Allergy/AdvReac Type Severity Reaction Status Date / Time pumpkin Allergy Unknown Unknown Verified 12/24/24 12:26 Active Medications: Current Medications Acetaminophen (Acetaminophen 325 Mg Tablet) 650 mg PO Q6H PRN PRN Reason: Headache/Pain, Scale 1-10 Al Hydroxide/Mg Hydroxide (Magnesium Hydrox/Alum Hydrox 30 Ml Oral.Susp) 30 ml PO Q6H PRN PRN Reason: Heartburn/Nausea Aspirin (Aspirin Enteric Coated 81 Mg Tablet.Dr) 81 mg PO DAILY [facility] Last Admin: 04/07/25 08:33 Dose: 81 mg Atorvastatin Calcium (Atorvastatin Calcium 20 Mg Tablet) 20 mg PO BEDTIME [facility] Last Admin: 04/06/25 20:36 Dose: 20 mg Bupropion HCl (Bupropion Hcl Xl 150 Mg Tab.Er.24h) 450 mg PO DAILY [facility] Last Admin: 04/07/25 08:33 Dose: 450 mg Docusate Sodium (Docusate Sodium 100 Mg Capsule) 100 mg PO BID [facility] Last Admin: 04/07/25 08:33 Dose: 100 mg Hydroxyzine HCl (Hydroxyzine Hcl 25 Mg Tablet) 25 mg PO Q6H PRN PRN Reason: mild anxiety Last Admin: 03/26/25 23:24 Dose: 25 mg Lurasidone HCl (Lurasidone Hcl 40 Mg Tablet) 120 mg PO DAILY@1700 [facility] Last Admin: 04/06/25 17:08 Dose: 120 mg Magnesium Hydroxide (Milk Of Magnesia 30 Ml Oral.Susp) 30 ml PO DAILY PRN PRN Reason: Constipation Nicotine (Nicotine 21 Mg Patch.Td24) 21 mg TRANSDERMA DAILY PRN PRN Reason: nicotine craving Nicotine Polacrilex (Nicotine Polacrilex 2 Mg Gum) 2 mg BUCCAL Q2H PRN PRN Reason: Nicotine Cravings Olanzapine (Olanzapine 5 Mg Tablet) 5 mg PO BID PRN PRN Reason: agitation Trazodone HCl (Trazodone Hcl 50 Mg Tablet) 50 mg PO BEDTIME MRX1 PRN PRN Reason: Insomnia Last Admin: 04/05/25 23:14 Dose: 50 mg Physical Exam 2 Vital Signs and Narrative: Vital Signs: Last Vital Signs Temp 97.6 F 04/07/25 07:56 Pulse 65 04/07/25 07:56 Resp 14 04/07/25 07:56 BP 136/86 04/07/25 07:56 Pulse Ox 96 04/07/25 07:56 O2 Del Method Room Air 04/07/25 07:56 BMI result Body Mass Index 31.2 Constitutional - Awake and Alert, No apparent distress HEENT - PER, EOMI Heart - RRR, No murmurs. Lungs - Normal lung expansion, Normal respiratory effort, No respiratory distress, CTA bilaterally Abdoment - +BS; no distended, pelvic tenderness to palpation. No rebound or guarding - No CVA tenderness Extremities - no calf tenderness bilaterally, no swelling Musculoskeletal - Normal inspection, normal ROM Skin - Warm/Dry Neurological - Alert & oriented x3. Moving all extremities spontaneously. Psychological - Depressed affect Results Labs 04/06/25 14:28 04/06/25 14:28 Labs: Laboratory Results - last 24 hr 04/06/25 04/07/25 14:28 08:07 MCV 89.1 MCH 29.2 MCHC 32.8 RDW 14.0 Plt Count 303 D MPV 10.6 Immature Gran % (Auto) 0.4 Neut % (Auto) 58.1 Lymph % (Auto) 32.8 [place] % (Auto) 6.4 Eos % (Auto) 2.1 Baso % (Auto) 0.2 Lymph # (Auto) 3.0 [place] # (Auto) 0.6 Eos # (Auto) 0.2 Baso # (Auto) 0.0 Abs Immat Gran (auto) 0.04 H Absolute Neuts (auto) 5.3 Absolute Nucleated RBC 0.000 Nucleated RBC % (auto) 0.0 Anion Gap 15 Estim Creat Clear Calc 75.5 Estimated GFR 56 Random Glucose 96 Calcium 9.4 Total Bilirubin 0.6 AST 26 ALT 23 Alkaline Phosphatase 66 Total Protein 6.4 L Albumin 3.9 TSH 2.42 Imaging Radiologist's Impressions: Impressions Head CT 04/06/25 13:54 IMPRESSION: No acute intracranial hemorrhage. Bifrontal bitemporal lobes atrophy. Electronically signed by: Roque Guillen MD 04/06/2025 02:15 PM EDT Assessment and Plan (1) Depression: Qualifiers: Depression Type: unspecified Qualified Code(s): F32.A - Depression, unspecified Status: Acute (2) H/O gastric sleeve: Status: Acute Plan Kamar Perdomo is 49 y/o man with PMHx significant for hyperlipidemia, old CVA in 2020 with no residual neurological deficits except for memory loss and gastric sleeve surgery has been admitted to psychiatric unit for ECT. ECT risk stratification Patient without previous problems with anesthesia, has previously undergone ECT RCRI 0 points, no further cardiac workup or treatment indicated at this time EKG showed QT interval WNL, no evidence of ischemic changes Based on stated PMH, HPI, and physical exam, there are no apparent medical contraindications to the planned procedure. Patient is complaining of pelvic discomfort and constipation. We will add therapy with Senokot, MiraLax and obtain urinalysis to assess for urinary tract infection. Continue treatment with atorvastatin and aspirin for history of stroke and hyperlipidemia.
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
--- NOTE | 2025-04-07 19:48 | HO.PSYCHPN ---
Subjective Subjective Date of Service: 04/07/25 Reason For Visit: SI Subjective Notes: Conditional Voluntary Healthcare Proxy: No Guardianship: No Medical Problems Affecting Mental Status: No Interim History: Medical record and nursing notes reviewed; case discussed during rounds with team/nursing staff, and met with patient for supportive therapy/psychoeducation, as well as medication management. Patient compliant with medication, reports due to the pain abdominal, he could not sleep well last night. Continued to reports depressions 8/10, anxiety 4/10 today related to the pain. Denies suicidal thoughts or voices, isolated. Shower yesterday. Review with patient test need to be done prior to having ECT. Patient met with Dr. Ward and hospitalist for ECT clearance. Due to the pain, constipated, more laxative ordered today. Also UA other by hospitalist to rule out any infection. He is flat, low energy, low motivation, withdrawal, in room mostly, but come out to other rooms to talk to the providers. Medication Compliance: Yes Side effects from medications: No Attending Groups: No Review of Systems Acute medical concerns: No Medical Review of Systems: unchanged Review of Systems Review of Systems Constitutional: Denies fatigue and Denies fever(s) Cardiovascular: Denies chest pain and Denies dyspnea Respiratory: Denies dyspnea Gastrointestinal: reprot abdominal pain 02/18. Seen by hospitalist. U/A with Reflex culture ordered. Psychiatric: denies suicidal ideation Endocrine: Denies fatigue Yes all other systems are reviewed and are negative Mental Status Exam Mental Status Exam Narrative: Appearance: Casually dressed, unkempt, disheveled in bed Behavior: Calm and cooperative, no PMA/PMR Eye contact is appropriate Speech: Normal volume and prosody Thought process logical and goal-directed Thought content: On treatment. Mood: depressed and anxious Affect: constricted/flat SI: Denies HI: denies VH/AH: none expressed Delusions: no Insight/judgment: some level of impairment. Diagnostics Vital Signs (24Hr): Vital Signs - 24 hr 04/06/25 20:00 04/07/25 07:56 Temperature 97.9 F 97.6 F Pulse Rate 72 65 Respiratory Rate 16 14 Blood Pressure 134/73 136/86 Pulse Oximetry 98 96 Oxygen Delivery Method Room Air Room Air BMI result Body Mass Index 31.2 Labs 04/06/25 14:28 04/06/25 14:28 Labs: Laboratory Results - last 48 hr 04/06/25 04/07/25 14:28 08:07 WBC 9.1 RBC 4.59 L Hgb 13.4 L Hct 40.9 L MCV 89.1 MCH 29.2 MCHC 32.8 RDW 14.0 Plt Count 303 D MPV 10.6 Immature Gran % (Auto) 0.4 Neut % (Auto) 58.1 Lymph % (Auto) 32.8 Pershing % (Auto) 6.4 Eos % (Auto) 2.1 Baso % (Auto) 0.2 Lymph # (Auto) 3.0 Pershing # (Auto) 0.6 Eos # (Auto) 0.2 Baso # (Auto) 0.0 Abs Immat Gran (auto) 0.04 H Absolute Neuts (auto) 5.3 Absolute Nucleated RBC 0.000 Nucleated RBC % (auto) 0.0 Sodium 143 Potassium 4.6 Chloride 105 Carbon Dioxide 28 Anion Gap 15 BUN 17 H Creatinine 1.35 Estim Creat Clear Calc 75.5 Estimated GFR 56 Random Glucose 96 Calcium 9.4 Total Bilirubin 0.6 AST 26 ALT 23 Alkaline Phosphatase 66 Total Protein 6.4 L Albumin 3.9 TSH 2.42 Imaging Radiology Impressions: ITS Impressions Head CT 04/06/25 13:54 IMPRESSION: No acute intracranial hemorrhage. Bifrontal bitemporal lobes atrophy. Electronically signed by: Roque Guillen MD 04/06/2025 02:15 PM EDT RP Medications Medications Current Medications Acetaminophen (Acetaminophen 325 Mg Tablet) 650 mg PO Q6H PRN PRN Reason: Headache/Pain, Scale 1-10 Al Hydroxide/Mg Hydroxide (Magnesium Hydrox/Alum Hydrox 30 Ml Oral.Susp) 30 ml PO Q6H PRN PRN Reason: Heartburn/Nausea Aspirin (Aspirin Enteric Coated 81 Mg Tablet.) 81 mg PO DAILY [facility] Last Admin: 04/07/25 08:33 Dose: 81 mg Atorvastatin Calcium (Atorvastatin Calcium 20 Mg Tablet) 20 mg PO BEDTIME [facility] Last Admin: 04/06/25 20:36 Dose: 20 mg Bisacodyl (Bisacodyl 10 Mg Supp.Rect) 10 mg AL BEDTIME PRN PRN Reason: Constipation Bupropion HCl (Bupropion Hcl Xl 150 Mg Tab.Er.24h) 450 mg PO DAILY [facility] Last Admin: 04/07/25 08:33 Dose: 450 mg Docusate Sodium (Docusate Sodium 100 Mg Capsule) 100 mg PO BID [facility] Last Admin: 04/07/25 08:33 Dose: 100 mg Hydroxyzine HCl (Hydroxyzine Hcl 25 Mg Tablet) 25 mg PO Q6H PRN PRN Reason: mild anxiety Last Admin: 03/26/25 23:24 Dose: 25 mg Lurasidone HCl (Lurasidone Hcl 40 Mg Tablet) 120 mg PO DAILY@1700 [facility] Last Admin: 04/07/25 17:17 Dose: 120 mg Magnesium Hydroxide (Milk Of Magnesia 30 Ml Oral.Susp) 30 ml PO DAILY PRN PRN Reason: Constipation Nicotine (Nicotine 21 Mg Patch.Td24) 21 mg TRANSDERMA DAILY PRN PRN Reason: nicotine craving Nicotine Polacrilex (Nicotine Polacrilex 2 Mg Gum) 2 mg BUCCAL Q2H PRN PRN Reason: Nicotine Cravings Olanzapine (Olanzapine 5 Mg Tablet) 5 mg PO BID PRN PRN Reason: agitation Polyethylene Glycol (Polyethylene Glycol 3350 17 Gm Powd.Pack) 17 gm PO DAILY [facility] Last Admin: 04/07/25 14:19 Dose: 17 gm Senna (Sennosides 8.6 Mg Tablet) 17.2 mg PO BEDTIME [facility] Trazodone HCl (Trazodone Hcl 50 Mg Tablet) 50 mg PO BEDTIME MRX1 PRN PRN Reason: Insomnia Last Admin: 04/05/25 23:14 Dose: 50 mg Allergies Allergies Allergy/AdvReac Type Severity Reaction Status Date / Time pumpkin Allergy Unknown Unknown Verified 12/24/24 12:26 Assessment & Plan Assessment & Plan (1) H/O gastric sleeve: Status: Acute Code(s): Z90.3 - Acquired absence of stomach [part of] (2) Bipolar disorder: Status: Acute Code(s): F31.9 - Bipolar disorder, unspecified Plan Plan 03/27: feels latuda 120 has been helpful. however, remains depressed. add wellbutrin XL 150 daily for depression, plan to increase to 300 mg daily in 3 days. may also consider ECT due to lack of improvement despite numerous recent hospitalizations + lethality of suicide attempts + recent self-abnegating behaviors. 03/28: no change in presentation, no requests or complaints. started wellbutrin 150 today. continue current mgmt 03/29/25: Slept well, no issues with appetite. Observed out on the unit, attended groups, engaging. Reports depression and 03/21, denies anxiety. Constricted affect, congruent with mood. Denies safety concerns. Compliant with medications. Denies side effects from Wellbutrin. Continue to encourage groups. 03/30/25: Patient slept for 6 hours, was medication compliant. He attended 2 groups yesterday, however today he is more isolated, in bed a lot more time, declines a couple groups. Reports depressed but no anxiety, flat affect, depressed, but cooperative during one-to-one assessment. He is receptive with the plan of Wellbutrin increased up to 300 mg for depression. Reports passive SI, denies plan or intention. Denies other safety concerns. Encourage patient to go to groups and shower daily. Increase Wellbutrin XL to 300 mg daily for depression. He reported that he has bipolar type II. 03/31: Laying in bed. keeping to self. showered. patient reports feeling depressed ; pt stated, I'm not having a good day. I don't want to do anything . flat affect. denies SI/HI/VH/AH. Per nursing, slept 8 hours. encouraged to attend groups. continue current tx plan. 04/01/25: Patient slept for 8 hours, poor meal intake yesterday but was medication compliant. Denies side effects. When asked about if he has poor appetite as he ate only 50 of breakfast, and 25 for lunch and not eating dinner, he said because I did not do the menu, so I got what I do not like . He shower yesterday, continued to reports depression 03/21. Denied anxiety. He does not feel any difference from Wellbutrin 150 when and when it was increased up to 300 mg. Denies SI/SIB/HI/AVH, isolative self, he plans to attend groups today. This provider spoke with patient in length regarding medication trials. Per his report, has been trying so many antidepressants they just do not work, and continued to be depressed. Some of them are Zoloft, Paxil, Effexor, Celexa, Prozac, Cymbalta, Lexapro. He also having history of taking Zyprexa more than 20 years ago due to hearing voices. Then the voices was calm. He never has a take it again after. History of Abilify but not sure if it is working as he can not recall. Regarding ADLs: He said that he had food at the alf twice a day, but he is not showering for many days despite the fact that staff asked him to do so I just do not care about being clean . Reports very low energy, low motivation, been increased suicidal thoughts and depression. He used to love music and reading but not interested in doing anything like that anymore. Reported that he had gastric sleeve surgery back in August 2023 which he lost 230 lb. He weight 447 lb prior to the surgery. He identified that after the surgery he has been more depressed slowly over months. There was a time that he wanted to starve myself so I can when asked is that you that he has stopped eating at home. He also identified that he feel more depressed after surgery as he is not able to over eating like he did before. Family mental health illnesses: Reports that who both of his parents was depressed. Mom 11 years ago. 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 History of ECTs: Reports he had history of ECTs in 2010 when he was at in [facility].He felt worse after the treatment everything seems like a dream . He clarified that immediately after the treatment he feel that way which could be a side effects of ECT but not permanent. Educate patient on possible side effects ECTs. Patient denies having seizure during ECTs treatment, no seizure history no cardiac conditions/disease history. Reports history of hypertension, but not anymore. He also has been admitted to different hospitals for psychiatric admissions in the past couple of months. Reports staying at [facility] in December for a month. [facility] in the area names [facility]) in October for another month. Per email from his OP team- clinical director at [facility], they also express concerns of patient's conditions. It is noted that their concerns are very consistent with patient' report here on the unit. He also has been admitted to different hospitals for psychiatric admissions in the past couple of months. Reports staying at [facility] in December for a month. [facility] in the area names [facility]) in October for another month. Per email from his OP team- clinical director at [facility], they also express concerns of patient's conditions. It is noted that their concerns are very consistent with patient' report here on the unit. Alfredito has been in and out on inpatient level of care since October of this year, I believe every month, for a majority of the time. He was recently discharged from [facility] after a 1 month stay and within two hours of returning home wanted to return to the hospital, saying he was unwell, and within one day was sectioned by [facility], which is how he ended up with you now. ? He has been coming home and intentionally starving himself, even not eating for up to 1 week. We have known Alfredito for years and since this started in October, we have seen no significant improvement in his mental health or a return to baseline. In fact, we are observing his case as consistent with failure to thrive. We have been asking for him to be inpatient at [facility] or with you at [facility] for some time in order for him to be potentially considered for ECT level of treatment, if deemed appropriate. Multiple medication trials failture to target depressive symptoms. He will be a good candidate to get trial ECT treatment in combination with current medication regimens. Patient also agrees with the plan. We would start the treatment as soon as possible. Will discuss the case with in house psychiatrist-Dr. Ward to prepare for ECT treatment. Hope to start early next week. 04/02: Laying in bed. keeping to self. Patient continues to report feeling depressed; pt stated, I feel about the same. I spoke with the other provider and agreed to do ECT . He reports sleeping well. denies SI/HI/VH/AH. Encouraged to attend groups and shower. Continue current tx plan. 04/03: no changes- just started wellbutrin 04/04: no changes 04/05/25: report anxiety a 2-3/10 but still 8 for depression. No change since started Wellbutrin. He agrees to get Wellbutrin up to 450mg daily for depression. Isolative in room, staring up to the ceiling. Discuss with patient of option to start on Intuniv for severe depression. Patient declines it at this current time but agree to see Welbutrin increased would be helpful. He agrees with ECT. Encourage groups, he says he was at art group out to dinning area but there are too much so he went back to his room. Report not many groups offered over the weekends. 04/06/25: Patient slept for 6 hours, have a sleep study done last night. Reported that he did not sleep well. Appetite is okay. Mood is depressed 8/10, denies anxiety today. Denies suicidal thoughts, but reports he has passive SI yesterday intrusive, just do not Wanna live anymore . Denies hallucinations. Address with patient of why he having bowel movement in the shower. He said it is just one episode. Reports he feel constipated. Agree with Colace. He also inform regarding the ECT which was approved by the insurance. He compliant with medication, however reports he has not feeling any difference in terms of depression at since started on Wellbutrin. Encourage groups attendance. Observe him later on during the day reading at a table in dining area. Colace 100mg BID for constipation. ECT consult placed: Patient may be seen by tomorrow by Dr. Ward. Procedure done preparing for the ECT: Head CT scan negative, EKG normal sinus rhythm, Incomplete right bundle branch block. Borderline ECG_ no change when compare to previous EKG. Unremarkable CBC with diff. 04/07/25: Per hospitalist note: ECT risk stratification Patient without previous problems with anesthesia, has previously undergone ECT RCRI 0 points, no further cardiac workup or treatment indicated at this time EKG showed QT interval WNL, no evidence of ischemic changes Based on stated PMH, HPI, and physical exam, there are no apparent medical contraindications to the planned procedure. Patient is complaining of pelvic discomfort and constipation. We will add therapy with Senokot, MiraLax and obtain urinalysis to assess for urinary tract infection. Continue treatment with atorvastatin and aspirin for history of stroke and hyperlipidemia. 04/07/25: Patient compliant with medication, reports due to the pain abdominal, he could not sleep well last night. Continued to reports depressions 8/10, anxiety 4/10 today related to the pain. Denies suicidal thoughts or voices, isolated. Shower yesterday. Review with patient test need to be done prior to having ECT. Patient met with Dr. Ward and hospitalist for ECT clearance. Due to the pain, constipated, more laxative ordered today. Also UA other by hospitalist to rule out any infection. He is flat, low energy, low motivation, withdrawal, in room mostly, but come out to other rooms to talk to the providers Patient educated on: diagnosis, medication risk/benefits and therapeutic strategies Informed Consent: understands Reason for continued inpatient stay Substantial Risk for: med/psych decompensation Time Spent With Patient Time: Total time managing care of this patient today ____ minutes.
[2025-04-07 20:00] VITALS: BP 119/63; PULSE 66; RESP 16; TEMP 36.9; O2SAT 96
[2025-04-07 22:01] LABS: Appearance Urine Clear; Glucose Urine UA Negative (Negative); PH 6.0 (5.0-9.0); Specific Gravity - Urine 1.010 (1.005-1.025)
[2025-04-08 07:00] VITALS: BMI 31.4
[2025-04-08 07:40] VITALS: BP 107/73; PULSE 73; RESP 20; TEMP 36.4; O2SAT 97
[2025-04-08] MEDS: buPROPion HCl XL 150 MG TAB.ER.24H 450 MG PO (08:33)
[2025-04-08] MEDS: Aspirin Enteric Coated 81 MG TABLET.DR PO (08:34)
--- NOTE | 2025-04-08 10:11 | PM.NEUROCN ---
History of Present Illness Data of Consult Service Date: 04/08/25 Primary Care Provider: Sonja Velasco MD [facility] Reason for consult: Abnormal head CT and pre ECT clearance 49 years old man with probably chronic depression and suicidal ideation was considered for ECT treatment and this consultation was requested. He had a head CT done that revealed some finding prompting this consultation. Patient stated that he had suffered from a stroke in the past resulting in memory problem. There was no evidence of any recent stroke-like symptoms or seizure-like symptoms. He said that he had ECT twice in the past and it did not help. Review of Systems Review of Systems: No recent stroke or seizure-like symptoms no recent head trauma [facility] Past Medical History Medical History (Updated 04/08/25 @ 10:13 by Elpidio Browning MD) Obesity LUIS (obstructive sleep apnea) HLD (hyperlipidemia) HTN (hypertension) CVA (cerebral vascular accident) Social History Social History Household Members: Other Household Members Other:: transitional housing Housing: Other Do you presently have visiting nurse or other home services: No Patient Tobacco Use Status: Never used Tobacco Second Hand Smoke Exposure: Yes Currently Displaying Signs/Symptoms of Drug Intoxication Withdrawal: No Have you been hit, kicked, punched, or otherwise hurt by someone within the past year? If so, by whom?: No Do you feel safe in your current relationship?: No Current Relationship Is there a partner from a previous relationship who is making you feel unsafe now?: No Are you made to feel afraid or neglected: No Advance Directives: No Advance Directives Information Provided: No Do you have thoughts of harming others: None Do you have a plan to hurt others: No Plan Recently lost weight without trying: No Eating poorly because of decreased appetite: No Nutrition Risks: No Nutritional Risk Poor oral hygiene: Yes (very dry scalp) service: No Sexual orientation: Straight/Heterosexual Meds Allergies Allergy/AdvReac Type Severity Reaction Status Date / Time pumpkin Allergy Unknown Unknown Verified 12/24/24 12:26 Active Medications: Current Medications Acetaminophen (Acetaminophen 325 Mg Tablet) 650 mg PO Q6H PRN PRN Reason: Headache/Pain, Scale 1-10 Al Hydroxide/Mg Hydroxide (Magnesium Hydrox/Alum Hydrox 30 Ml Oral.Susp) 30 ml PO Q6H PRN PRN Reason: Heartburn/Nausea Aspirin (Aspirin Enteric Coated 81 Mg Tablet.Dr) 81 mg PO DAILY [facility] Last Admin: 04/08/25 08:34 Dose: 81 mg Atorvastatin Calcium (Atorvastatin Calcium 20 Mg Tablet) 20 mg PO BEDTIME [facility] Last Admin: 04/07/25 20:33 Dose: 20 mg Bisacodyl (Bisacodyl 10 Mg Supp.Rect) 10 mg AK BEDTIME PRN PRN Reason: Constipation Bupropion HCl (Bupropion Hcl Xl 150 Mg Tab.Er.24h) 450 mg PO DAILY [facility] Last Admin: 04/08/25 08:33 Dose: 450 mg Docusate Sodium (Docusate Sodium 100 Mg Capsule) 100 mg PO BID [facility] Last Admin: 04/08/25 08:34 Dose: 100 mg Hydroxyzine HCl (Hydroxyzine Hcl 25 Mg Tablet) 25 mg PO Q6H PRN PRN Reason: mild anxiety Last Admin: 03/26/25 23:24 Dose: 25 mg Lurasidone HCl (Lurasidone Hcl 40 Mg Tablet) 120 mg PO DAILY@1700 [facility] Last Admin: 04/07/25 17:17 Dose: 120 mg Magnesium Hydroxide (Milk Of Magnesia 30 Ml Oral.Susp) 30 ml PO DAILY PRN PRN Reason: Constipation Nicotine (Nicotine 21 Mg Patch.Td24) 21 mg TRANSDERMA DAILY PRN PRN Reason: nicotine craving Nicotine Polacrilex (Nicotine Polacrilex 2 Mg Gum) 2 mg BUCCAL Q2H PRN PRN Reason: Nicotine Cravings Olanzapine (Olanzapine 5 Mg Tablet) 5 mg PO BID PRN PRN Reason: agitation Polyethylene Glycol (Polyethylene Glycol 3350 17 Gm Powd.Pack) 17 gm PO DAILY [facility] Last Admin: 04/08/25 08:33 Dose: 17 gm Senna (Sennosides 8.6 Mg Tablet) 17.2 mg PO BEDTIME [facility] Last Admin: 04/07/25 20:33 Dose: 17.2 mg Trazodone HCl (Trazodone Hcl 50 Mg Tablet) 50 mg PO BEDTIME MRX1 PRN PRN Reason: Insomnia Last Admin: 04/05/25 23:14 Dose: 50 mg Physical Exam Vital Signs: Vital Signs: Last Vital Signs Temp 97.6 F 04/08/25 07:40 Pulse 73 04/08/25 07:40 Resp 20 04/08/25 07:40 BP 107/73 04/08/25 07:40 Pulse Ox 97 04/08/25 07:40 O2 Del Method Room Air 04/08/25 07:40 BMI result Body Mass Index 31.2 Neuro: Other: He is alert and awake with normal spontaneity of speech fluency comprehension and flat affect. Face is symmetrical. Visual boss are full. Extraocular muscles were intact. Pupils were equal and reactive to light. There was no focal arm or leg weakness. Deep tendon reflexes are trace to 1+ with flexor plantars. Speech is normal. He is able to walk normally. Results Labs 04/06/25 14:28 04/06/25 14: Labs: Urine 04/07/25 Range/Units 21:30 Urine Color Yellow Urine Appearance Clear Urine pH 6.0 (5.0-9.0) Ur Specific Dalton 1.010 (1.005-1.025) Urine Protein Negative (Neg-Trace) mg/dL Urine Glucose (UA) Negative (Negative) mg/dL Head CT revealed mild cortical and central atrophy for his age group. Otherwise no focal lesion was noted. Assessment and Plan (1) Abnormal head CT: Status: Acute 49 years old man probably with underlying tendency for psychiatric disease from genetic etiology. He has diffuse cerebral central and cortical atrophy for his age, which could happened from excessive exposure to alcohol or drugs but also from genetic reasons. He denied any significant or excessive drug exposure. I do not find any focal lesion, acute or chronic, suggestive of stroke. There was no contraindication to treatment with ECT. Otherwise treatment of this condition is supportive, symptomatic and conservative. Procedures Date of Service Date of Service: 04/08/25
--- NOTE | 2025-04-08 17:21 | HO.PSYCHPN ---
Subjective Subjective Date of Service: 04/08/25 Reason For Visit: SI Subjective Notes: Conditional Voluntary Healthcare Proxy: No Guardianship: No Medical Problems Affecting Mental Status: No Interim History: Medical record and nursing notes reviewed; case discussed during rounds with team/nursing staff, and met with patient for supportive therapy/psychoeducation, as well as medication management. Patient slept for 8 hours, compliant with medications, denies side effect. Met with him in his room, reported that he slept better last night, having good bowel movement, denies diarrhea is. Informed him regarding the labs work/and UA that was negative to rule out UTI. Denies pain. Explained to patient regarding pre ECT procedures/test to prepare for the day that he going to start. We will start ECT on Saturday. Per Dr. Ward, we will taper down on Latuda, start him on Modafinil low dose to help with severe depression. Continued to reports moderate to severe depression. Denies suicidal thoughts or hallucinations. Patient also met with neurologist, patient is clear for ECTs Medication Compliance: Yes Side effects from medications: No Attending Groups: Intermittent (not OT groups) Review of Systems Acute medical concerns: No Medical Review of Systems: unchanged Review of Systems Review of Systems Constitutional: Denies fatigue and Denies fever(s) Cardiovascular: Denies chest pain and Denies dyspnea Respiratory: Denies dyspnea Gastrointestinal: Denies abdominal pain Psychiatric: denies suicidal ideation Endocrine: Denies fatigue Yes all other systems are reviewed and are negative Mental Status Exam Mental Status Exam Narrative: Appearance: Casually dressed, unkempt, disheveled in bed Behavior: Calm and cooperative, no PMA/PMR Eye contact is appropriate Speech: Normal volume and prosody Thought process logical and goal-directed Thought content: On treatment. Mood: depressed and anxious Affect: constricted/flat SI: Denies HI: denies VH/AH: none expressed Delusions: no Insight/judgment: some level of impairment. Diagnostics Vital Signs (24Hr): Vital Signs - 24 hr 04/07/25 20:00 04/08/25 07:40 Temperature 98.5 F 97.6 F Pulse Rate 66 73 Respiratory Rate 16 20 Blood Pressure 119/63 107/73 Pulse Oximetry 96 97 Oxygen Delivery Method Room Air Room Air BMI result Body Mass Index 31.4 Labs 04/06/25 14:28 04/06/25 14:28 Labs: Laboratory Results - last 48 hr 04/07/25 04/07/25 08:07 21:30 TSH 2.42 Urine Color Yellow Urine Appearance Clear Urine pH 6.0 Ur Specific Alloy 1.010 Urine Protein Negative Urine Glucose (UA) Negative Urine Ketones Negative Urine Blood Negative Urine Nitrite Negative Ur Leukocyte Esterase Negative Imaging Radiology Impressions: ITS Impressions Head CT 04/06/25 13:54 IMPRESSION: No acute intracranial hemorrhage. Bifrontal bitemporal lobes atrophy. Electronically signed by: Roque Guillen MD 04/06/2025 02:15 PM EDT Medications Medications Current Medications Acetaminophen (Acetaminophen 325 Mg Tablet) 650 mg PO Q6H PRN PRN Reason: Headache/Pain, Scale 1-10 Al Hydroxide/Mg Hydroxide (Magnesium Hydrox/Alum Hydrox 30 Ml Oral.Susp) 30 ml PO Q6H PRN PRN Reason: Heartburn/Nausea Aspirin (Aspirin Enteric Coated 81 Mg Tablet.Dr) 81 mg PO DAILY [facility] Last Admin: 04/08/25 08:34 Dose: 81 mg Atorvastatin Calcium (Atorvastatin Calcium 20 Mg Tablet) 20 mg PO BEDTIME [facility] Last Admin: 04/07/25 20:33 Dose: 20 mg Bisacodyl (Bisacodyl 10 Mg Supp.Rect) 10 mg RI BEDTIME PRN PRN Reason: Constipation Bupropion HCl (Bupropion Hcl Xl 150 Mg Tab.Er.24h) 450 mg PO DAILY [facility] Last Admin: 04/08/25 08:33 Dose: 450 mg Docusate Sodium (Docusate Sodium 100 Mg Capsule) 100 mg PO BID [facility] Last Admin: 04/08/25 08:34 Dose: 100 mg Hydroxyzine HCl (Hydroxyzine Hcl 25 Mg Tablet) 25 mg PO Q6H PRN PRN Reason: mild anxiety Last Admin: 03/26/25 23:24 Dose: 25 mg Lurasidone HCl (Lurasidone Hcl 40 Mg Tablet) 120 mg PO DAILY@1700 [facility] Last Admin: 04/08/25 17:17 Dose: 120 mg Magnesium Hydroxide (Milk Of Magnesia 30 Ml Oral.Susp) 30 ml PO DAILY PRN PRN Reason: Constipation Nicotine (Nicotine 21 Mg Patch.Td24) 21 mg TRANSDERMA DAILY PRN PRN Reason: nicotine craving Nicotine Polacrilex (Nicotine Polacrilex 2 Mg Gum) 2 mg BUCCAL Q2H PRN PRN Reason: Nicotine Cravings Olanzapine (Olanzapine 5 Mg Tablet) 5 mg PO BID PRN PRN Reason: agitation Polyethylene Glycol (Polyethylene Glycol 3350 17 Gm Powd.Pack) 17 gm PO DAILY [facility] Last Admin: 04/08/25 08:33 Dose: 17 gm Senna (Sennosides 8.6 Mg Tablet) 17.2 mg PO BEDTIME [facility] Last Admin: 04/07/25 20:33 Dose: 17.2 mg Trazodone HCl (Trazodone Hcl 50 Mg Tablet) 50 mg PO BEDTIME MRX1 PRN PRN Reason: Insomnia Last Admin: 04/05/25 23:14 Dose: 50 mg Allergies Allergies Allergy/AdvReac Type Severity Reaction Status Date / Time pumpkin Allergy Unknown Unknown Verified 12/24/24 12:26 Assessment & Plan Assessment & Plan (1) Abnormal head CT: Status: Acute Code(s): R93.0 - Abnormal findings on diagnostic imaging of skull and head, not elsewhere classified (2) Bipolar disorder: Status: Acute Code(s): F31.9 - Bipolar disorder, unspecified Plan 03/27: feels latuda 120 has been helpful. however, remains depressed. add wellbutrin XL 150 daily for depression, plan to increase to 300 mg daily in 3 days. may also consider ECT due to lack of improvement despite numerous recent hospitalizations + lethality of suicide attempts + recent self-abnegating behaviors. 03/28: no change in presentation, no requests or complaints. started wellbutrin 150 today. continue current mgmt 03/29/25: Slept well, no issues with appetite. Observed out on the unit, attended groups, engaging. Reports depression and 03/21, denies anxiety. Constricted affect, congruent with mood. Denies safety concerns. Compliant with medications. Denies side effects from Wellbutrin. Continue to encourage groups. 03/30/25: Patient slept for 6 hours, was medication compliant. He attended 2 groups yesterday, however today he is more isolated, in bed a lot more time, declines a couple groups. Reports depressed but no anxiety, flat affect, depressed, but cooperative during one-to-one assessment. He is receptive with the plan of Wellbutrin increased up to 300 mg for depression. Reports passive SI, denies plan or intention. Denies other safety concerns. Encourage patient to go to groups and shower daily. Increase Wellbutrin XL to 300 mg daily for depression. He reported that he has bipolar type II. 03/31: Laying in bed. keeping to self. showered. patient reports feeling depressed ; pt stated, I'm not having a good day. I don't want to do anything . flat affect. denies SI/HI/VH/AH. Per nursing, slept 8 hours. encouraged to attend groups. continue current tx plan. 04/01/25: Patient slept for 8 hours, poor meal intake yesterday but was medication compliant. Denies side effects. When asked about if he has poor appetite as he ate only 50 of breakfast, and 25 for lunch and not eating dinner, he said because I did not do the menu, so I got what I do not like . He shower yesterday, continued to reports depression 03/21. Denied anxiety. He does not feel any difference from Wellbutrin 150 when and when it was increased up to 300 mg. Denies SI/SIB/HI/AVH, isolative self, he plans to attend groups today. This provider spoke with patient in length regarding medication trials. Per his report, has been trying so many antidepressants they just do not work, and continued to be depressed. Some of them are Zoloft, Paxil, Effexor, Celexa, Prozac, Cymbalta, Lexapro. He also having history of taking Zyprexa more than 20 years ago due to hearing voices. Then the voices was calm. He never has a take it again after. History of Abilify but not sure if it is working as he can not recall. Regarding ADLs: He said that he [facility] day, but he is not showering for many days despite the fact that staff asked him to do so I just do not care about being clean . Reports very low energy, low motivation, been increased suicidal thoughts and depression. He used to love music and reading but not interested in doing anything like that anymore. Reported that he had gastric sleeve surgery back in August 2023 which he lost 230 lb. He weight 447 lb prior to the surgery. He identified that after the surgery he has been more depressed slowly over months. There was a time that he wanted to starve myself so I can when asked is that you that he has stopped eating at home. He also identified that he feel more depressed after surgery as he is not able to over eating like he did before. Family mental health illnesses: Reports that who both of his parents was depressed. Mom 11 years ago. 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 History of ECTs: Reports he had history of ECTs in 2010 when he was at in [facility].He felt worse after the treatment everything seems like a dream . He clarified that immediately after the treatment he feel that way which could be a side effects of ECT but not permanent. Educate patient on possible side effects ECTs. Patient denies having seizure during ECTs treatment, no seizure history no cardiac conditions/disease history. Reports history of hypertension, but not anymore. He also has been admitted to different hospitals for psychiatric admissions in the past couple of months. Reports staying at [facility] in December for a month. [facility] in the area names [facility]) in October for another month. Per email from his OP team- clinical director at [facility], they also express concerns of patient's conditions. It is noted that their concerns are very consistent with patient' report here on the unit. He also has been admitted to different hospitals for psychiatric admissions in the past couple of months. Reports staying at [facility] in December for a month. [facility] in the area names [facility]) in October for another month. Per email from his OP team- clinical director at [facility], they also express concerns of patient's conditions. It is noted that their concerns are very consistent with patient' report here on the unit. Alfredito has been in and out on inpatient level of care since October of this year, I believe every month, for a majority of the time. He was recently discharged from [facility] after a 1 month stay and within two hours of returning home wanted to return to the hospital, saying he was unwell, and within one day was sectioned by [facility], which is how he ended up with you now. ? He has been coming home and intentionally starving himself, even not eating for up to 1 week. We have known Alfredito for years and since this started in October, we have seen no significant improvement in his mental health or a return to baseline. In fact, we are observing his case as consistent with failure to thrive. We have been asking for him to be inpatient at [facility] or with you at [facility] for some time in order for him to be potentially considered for ECT level of treatment, if deemed appropriate. Multiple medication trials failture to target depressive symptoms. He will be a good candidate to get trial ECT treatment in combination with current medication regimens. Patient also agrees with the plan. We would start the treatment as soon as possible. Will discuss the case with in house psychiatrist-Dr. Ward to prepare for ECT treatment. Hope to start early next week. 04/02: Laying in bed. keeping to self. Patient continues to report feeling depressed; pt stated, I feel about the same. I spoke with the other provider and agreed to do ECT . He reports sleeping well. denies SI/HI/VH/AH. Encouraged to attend groups and shower. Continue current tx plan. 04/03: no changes- just started wellbutrin 04/04: no changes 04/05/25: report anxiety a 2-10/19 but still 03/21 for depression. No change since started Wellbutrin. He agrees to get Wellbutrin up to 450mg daily for depression. Isolative in room, staring up to the ceiling. Discuss with patient of option to start on Intuniv for severe depression. Patient declines it at this current time but agree to see Welbutrin increased would be helpful. He agrees with ECT. Encourage groups, he says he was at art group out to dinning area but there are too much so he went back to his room. Report not many groups offered over the weekends. 04/06/25: Patient slept for 6 hours, have a sleep study done last night. Reported that he did not sleep well. Appetite is okay. Mood is depressed 03/21, denies anxiety today. Denies suicidal thoughts, but reports he has passive SI yesterday intrusive, just do not Wanna live anymore . Denies hallucinations. Address with patient of why he having bowel movement in the shower. He said it is just one episode. Reports he feel constipated. Agree with Colace. He also inform regarding the ECT which was approved by the insurance. He compliant with medication, however reports he has not feeling any difference in terms of depression at since started on Wellbutrin. Encourage groups attendance. Observe him later on during the day reading at a table in dining area. Colace 100mg BID for constipation. ECT consult placed: Patient may be seen by tomorrow by Dr. Ward. Procedure done preparing for the ECT: Head CT scan negative, EKG normal sinus rhythm, Incomplete right bundle branch block. Borderline ECG_ no change when compare to previous EKG. Unremarkable CBC with diff. 04/07/25: Per hospitalist note: ECT risk stratification Patient without previous problems with anesthesia, has previously undergone ECT RCRI 0 points, no further cardiac workup or treatment indicated at this time EKG showed QT interval WNL, no evidence of ischemic changes Based on stated PMH, HPI, and physical exam, there are no apparent medical contraindications to the planned procedure. Patient is complaining of pelvic discomfort and constipation. We will add therapy with Senokot, MiraLax and obtain urinalysis to assess for urinary tract infection. Continue treatment with atorvastatin and aspirin for history of stroke and hyperlipidemia. 04/07/25: Patient compliant with medication, reports due to the pain abdominal, he could not sleep well last night. Continued to reports depressions 8/10, anxiety 4/10 today related to the pain. Denies suicidal thoughts or voices, isolated. Shower yesterday. Review with patient test need to be done prior to having ECT. Patient met with Dr. Ward and hospitalist for ECT clearance. Due to the pain, constipated, more laxative ordered today. Also UA other by hospitalist to rule out any infection. He is flat, low energy, low motivation, withdrawal, in room mostly, but come out to other rooms to talk to the providers 04/08/25: Patient slept for 8 hours, compliant with medications, denies side effect. Met with him in his room, reported that he slept better last night, having good bowel movement, denies diarrhea is. Informed him regarding the labs work/and UA that was negative to rule out UTI. Denies pain. Explained to patient regarding pre ECT procedures/test to prepare for the day that he going to start. We will start ECT on Saturday. Per Dr. Ward, we will taper down on Latuda, start him on Modafinil low dose to help with severe depression. Continued to reports moderate to severe depression. Denies suicidal thoughts or hallucinations. 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 He denied any significant or excessive drug exposure. I do not find any focal lesion, acute or chronic, suggestive of stroke. There was no contraindication to treatment with ECT. Otherwise treatment of this condition is supportive, symptomatic and conservative Taper down on Latuda from 120 down to 100 mg daily at 17:00 for mood. Start on Modefinil 100ng daily for severe depression, low energy, poor concentration, poor motivation. ECT will be scheduled next week on Saturday. We will received treatment for Saturday/Saturday and Saturday. Patient educated on: diagnosis, medication risk/benefits and therapeutic strategies Informed Consent: understands Reason for continued inpatient stay Substantial Risk for: med/psych decompensation Time Spent With Patient Time: Total time managing care of this patient today ____ minutes.
[2025-04-08 20:00] VITALS: BP 122/54; PULSE 83; RESP 18; TEMP 36.8; O2SAT 97
[2025-04-09 07:35] VITALS: BP 117/90; PULSE 75; RESP 16; TEMP 36.4; O2SAT 96
[2025-04-09] MEDS: buPROPion HCl XL 150 MG TAB.ER.24H 450 MG PO (08:17)
[2025-04-09] MEDS: Aspirin Enteric Coated 81 MG TABLET.DR PO (08:17)
--- NOTE | 2025-04-09 09:53 | HO.PSYCHPN ---
Subjective Subjective Date of Service: 04/09/25 Reason For Visit: SI Subjective Notes: Conditional Voluntary Healthcare Proxy: No Guardianship: No Medical Problems Affecting Mental Status: No Interim History: Medical record and nursing notes reviewed; case discussed during rounds with team/nursing staff, and met with patient for supportive therapy/psychoeducation, as well as medication management. Patient denies pain, normal bowel movement, slept well and compliant with medications. Denies side effects. Denies suicidal thoughts or hallucinations but reports mild on anxiety and moderate to severe depression. Patient appeared to be disheveled. Encourage patient to be out of bed in attended to groups included OT groups which observe he is visible in day room after the conversation. The OT will do the [place] for pre ECT next week on Saturday prior the ECT. He started modafinil 50 mg this morning. Indication and side effects explained to patient. Patient is receptive with the plan. Medication Compliance: Yes Side effects from medications: No Attending Groups: No Review of Systems Acute medical concerns: No Medical Review of Systems: unchanged Review of Systems Review of Systems Constitutional: Denies fatigue and Denies fever(s) Cardiovascular: Denies chest pain and Denies dyspnea Respiratory: Denies dyspnea Gastrointestinal: Denies abdominal pain Psychiatric: denies suicidal ideation Endocrine: Denies fatigue Yes all other systems are reviewed and are negative Mental Status Exam Mental Status Exam Narrative: Appearance: Casually dressed, unkempt, disheveled in bed Behavior: Calm and cooperative, no PMA/PMR Eye contact is appropriate Speech: Normal volume and prosody Thought process logical and goal-directed Thought content: On treatment. Mood: depressed and anxious Affect: constricted/flat SI: Denies HI: denies VH/AH: none expressed Delusions: no Insight/judgment: some level of impairment. Diagnostics Vital Signs (24Hr): Vital Signs - 24 hr 04/08/25 20:00 04/09/25 07:35 Temperature 98.2 F 97.5 F Pulse Rate 83 75 Respiratory Rate 18 16 Blood Pressure 122/54 L 117/90 H Pulse Oximetry 97 96 Oxygen Delivery Method Room Air Room Air BMI result Body Mass Index 31.4 Labs 04/06/25 14:28 04/06/25 14:28 Labs: Laboratory Results - last 48 hr 04/07/25 21:30 Urine Color Yellow Urine Appearance Clear Urine pH 6.0 Ur Specific [place] 1.010 Urine Protein Negative Urine Glucose (UA) Negative Urine Ketones Negative Urine Blood Negative Urine Nitrite Negative Ur Leukocyte Esterase Negative Imaging Radiology Impressions: ITS Impressions Head CT 04/06/25 13:54 IMPRESSION: No acute intracranial hemorrhage. Bifrontal bitemporal lobes atrophy. Electronically signed by: Roque Guillen MD 04/06/2025 02:15 PM EDT RP Medications Medications Current Medications Acetaminophen (Acetaminophen 325 Mg Tablet) 650 mg PO Q6H PRN PRN Reason: Headache/Pain, Scale 1-10 Al Hydroxide/Mg Hydroxide (Magnesium Hydrox/Alum Hydrox 30 Ml Oral.Susp) 30 ml PO Q6H PRN PRN Reason: Heartburn/Nausea Aspirin (Aspirin Enteric Coated 81 Mg Tablet.Dr) 81 mg PO DAILY [facility] Last Admin: 04/09/25 08:17 Dose: 81 mg Atorvastatin Calcium (Atorvastatin Calcium 20 Mg Tablet) 20 mg PO BEDTIME [facility] Last Admin: 04/08/25 21:26 Dose: 20 mg Bisacodyl (Bisacodyl 10 Mg Supp.Rect) 10 mg TN BEDTIME PRN PRN Reason: Constipation Bupropion HCl (Bupropion Hcl Xl 150 Mg Tab.Er.24h) 450 mg PO DAILY [facility] Last Admin: 04/09/25 08:17 Dose: 450 mg Docusate Sodium (Docusate Sodium 100 Mg Capsule) 100 mg PO BID [facility] Last Admin: 04/09/25 08:18 Dose: 100 mg Hydroxyzine HCl (Hydroxyzine Hcl 25 Mg Tablet) 25 mg PO Q6H PRN PRN Reason: mild anxiety Last Admin: 03/26/25 23:24 Dose: 25 mg Lurasidone HCl (Lurasidone Hcl 20 Mg Tablet) 100 mg PO DAILY@1700 [facility] Magnesium Hydroxide (Milk Of Magnesia 30 Ml Oral.Susp) 30 ml PO DAILY PRN PRN Reason: Constipation Modafinil (Modafinil 100 Mg Tablet) 50 mg PO DAILY [facility] Last Admin: 04/09/25 09:07 Dose: 50 mg Nicotine (Nicotine 21 Mg Patch.Td24) 21 mg TRANSDERMA DAILY PRN PRN Reason: nicotine craving Nicotine Polacrilex (Nicotine Polacrilex 2 Mg Gum) 2 mg BUCCAL Q2H PRN PRN Reason: Nicotine Cravings Olanzapine (Olanzapine 5 Mg Tablet) 5 mg PO BID PRN PRN Reason: agitation Polyethylene Glycol (Polyethylene Glycol 3350 17 Gm Powd.Pack) 17 gm PO DAILY JENNIFER Last Admin: 04/09/25 08:18 Dose: Not Given Senna (Sennosides 8.6 Mg Tablet) 17.2 mg PO BEDTIME JENNIFER Last Admin: 04/08/25 21:25 Dose: 17.2 mg Trazodone HCl (Trazodone Hcl 50 Mg Tablet) 50 mg PO BEDTIME MRX1 PRN PRN Reason: Insomnia Last Admin: 04/05/25 23:14 Dose: 50 mg Allergies Allergies Allergy/AdvReac Type Severity Reaction Status Date / Time pumpkin Allergy Unknown Unknown Verified 12/24/24 12:26 Assessment & Plan Assessment & Plan (1) Abnormal head CT: Status: Acute Code(s): R93.0 - Abnormal findings on diagnostic imaging of skull and head, not elsewhere classified (2) Bipolar disorder: Status: Acute Code(s): F31.9 - Bipolar disorder, unspecified Plan 03/27: feels latuda 120 has been helpful. however, remains depressed. add wellbutrin XL 150 daily for depression, plan to increase to 300 mg daily in 3 days. may also consider ECT due to lack of improvement despite numerous recent hospitalizations + lethality of suicide attempts + recent self-abnegating behaviors. 03/28: no change in presentation, no requests or complaints. started wellbutrin 150 today. continue current mgmt 03/29/25: Slept well, no issues with appetite. Observed out on the unit, attended groups, engaging. Reports depression and 03/21, denies anxiety. Constricted affect, congruent with mood. Denies safety concerns. Compliant with medications. Denies side effects from Wellbutrin. Continue to encourage groups. 03/30/25: Patient slept for 6 hours, was medication compliant. He attended 2 groups yesterday, however today he is more isolated, in bed a lot more time, declines a couple groups. Reports depressed but no anxiety, flat affect, depressed, but cooperative during one-to-one assessment. He is receptive with the plan of Wellbutrin increased up to 300 mg for depression. Reports passive SI, denies plan or intention. Denies other safety concerns. Encourage patient to go to groups and shower daily. Increase Wellbutrin XL to 300 mg daily for depression. He reported that he has bipolar type II. 03/31: Laying in bed. keeping to self. showered. patient reports feeling depressed ; pt stated, I'm not having a good day. I don't want to do anything . flat affect. denies SI/HI/VH/AH. Per nursing, slept 8 hours. encouraged to attend groups. continue current tx plan. 04/01/25: Patient slept for 8 hours, poor meal intake yesterday but was medication compliant. Denies side effects. When asked about if he has poor appetite as he ate only 50 of breakfast, and 25 for lunch and not eating dinner, he said because I did not do the menu, so I got what I do not like . He shower yesterday, continued to reports depression 03/21. Denied anxiety. He does not feel any difference from Wellbutrin 150 when and when it was increased up to 300 mg. Denies SI/SIB/HI/AVH, isolative self, he plans to attend groups today. This provider spoke with patient in length regarding medication trials. Per his report, has been trying so many antidepressants they just do not work, and continued to be depressed. Some of them are Zoloft, Paxil, Effexor, Celexa, Prozac, Cymbalta, Lexapro. He also having history of taking Zyprexa more than 20 years ago due to hearing voices. Then the voices was calm. He never has a take it again after. History of Abilify but not sure if it is working as he can not recall. Regarding ADLs: He said that he had food at the senior living twice a day, but he is not showering for many days despite the fact that staff asked him to do so I just do not care about being clean . Reports very low energy, low motivation, been increased suicidal thoughts and depression. He used to love music and reading but not interested in doing anything like that anymore. Reported that he had gastric sleeve surgery back in August 2023 which he lost 230 lb. He weight 447 lb prior to the surgery. He identified that after the surgery he has been more depressed slowly over months. There was a time that he wanted to starve myself so I can when asked is that you that he has stopped eating at home. He also identified that he feel more depressed after surgery as he is not able to over eating like he did before. Family mental health illnesses: Reports that who both of his parents was depressed. Mom 11 years ago. 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 History of ECTs: Reports he had history of ECTs in 2010 when he was at in [facility].He felt worse after the treatment everything seems like a dream . He clarified that immediately after the treatment he feel that way which could be a side effects of ECT but not permanent. Educate patient on possible side effects ECTs. Patient denies having seizure during ECTs treatment, no seizure history no cardiac conditions/disease history. Reports history of hypertension, but not anymore. He also has been admitted to different hospitals for psychiatric admissions in the past couple of months. Reports staying at [facility] in December for a month. [facility] in October for another month. Per email from his OP team- clinical director at [facility], they also express concerns of patient's conditions. It is noted that their concerns are very consistent with patient' report here on the unit. He also has been admitted to different hospitals for psychiatric admissions in the past couple of months. Reports staying at [facility] in December for a month. [facility]) in October for another month. Per email from his OP team- clinical director at [facility], they also express concerns of patient's conditions. It is noted that their concerns are very consistent with patient' report here on the unit. Alfredito has been in and out on inpatient level of care since October of this year, I believe every month, for a majority of the time. He was recently discharged from [facility] after a 1 month stay and within two hours of returning home wanted to return to the hospital, saying he was unwell, and within one day was sectioned by [facility], which is how he ended up with you now. ? He has been coming home and intentionally starving himself, even not eating for up to 1 week. We have known Alfredito for years and since this started in October, we have seen no significant improvement in his mental health or a return to baseline. In fact, we are observing his case as consistent with failure to thrive. We have been asking for him to be inpatient at [facility] or with you at [facility] for some time in order for him to be potentially considered for ECT level of treatment, if deemed appropriate. Multiple medication trials failture to target depressive symptoms. He will be a good candidate to get trial ECT treatment in combination with current medication regimens. Patient also agrees with the plan. We would start the treatment as soon as possible. Will discuss the case with in house psychiatrist-Dr. Ward to prepare for ECT treatment. Hope to start early next week. 04/02: Laying in bed. keeping to self. Patient continues to report feeling depressed; pt stated, I feel about the same. I spoke with the other provider and agreed to do ECT . He reports sleeping well. denies SI/HI/VH/AH. Encouraged to attend groups and shower. Continue current tx plan. 04/03: no changes- just started wellbutrin 04/04: no changes 04/05/25: report anxiety a 2-310 but still 8 for depression. No change since started Wellbutrin. He agrees to get Wellbutrin up to 450mg daily for depression. Isolative in room, staring up to the ceiling. Discuss with patient of option to start on Intuniv for severe depression. Patient declines it at this current time but agree to see Welbutrin increased would be helpful. He agrees with ECT. Encourage groups, he says he was at art group out to dinning area but there are too much so he went back to his room. Report not many groups offered over the weekends. 04/06/25: Patient slept for 6 hours, have a sleep study done last night. Reported that he did not sleep well. Appetite is okay. Mood is depressed 03/21, denies anxiety today. Denies suicidal thoughts, but reports he has passive SI yesterday intrusive, just do not Wanna live anymore . Denies hallucinations. Address with patient of why he having bowel movement in the shower. He said it is just one episode. Reports he feel constipated. Agree with Colace. He also inform regarding the ECT which was approved by the insurance. He compliant with medication, however reports he has not feeling any difference in terms of depression at since started on Wellbutrin. Encourage groups attendance. Observe him later on during the day reading at a table in dining area. Colace 100mg BID for constipation. ECT consult placed: Patient may be seen by tomorrow by Dr. Ward. Procedure done preparing for the ECT: Head CT scan negative, EKG normal sinus rhythm, Incomplete right bundle branch block. Borderline ECG_ no change when compare to previous EKG. Unremarkable CBC with diff. 04/07/25: Per hospitalist note: ECT risk stratification Patient without previous problems with anesthesia, has previously undergone ECT RCRI 0 points, no further cardiac workup or treatment indicated at this time EKG showed QT interval WNL, no evidence of ischemic changes Based on stated PMH, HPI, and physical exam, there are no apparent medical contraindications to the planned procedure. Patient is complaining of pelvic discomfort and constipation. We will add therapy with Senokot, MiraLax and obtain urinalysis to assess for urinary tract infection. Continue treatment with atorvastatin and aspirin for history of stroke and hyperlipidemia. 04/07/25: Patient compliant with medication, reports due to the pain abdominal, he could not sleep well last night. Continued to reports depressions 8/10, anxiety 4/10 today related to the pain. Denies suicidal thoughts or voices, isolated. Shower yesterday. Review with patient test need to be done prior to having ECT. Patient met with Dr. Ward and hospitalist for ECT clearance. Due to the pain, constipated, more laxative ordered today. Also UA other by hospitalist to rule out any infection. He is flat, low energy, low motivation, withdrawal, in room mostly, but come out to other rooms to talk to the providers 04/08/25: Patient slept for 8 hours, compliant with medications, denies side effect. Met with him in his room, reported that he slept better last night, having good bowel movement, denies diarrhea is. Informed him regarding the labs work/and UA that was negative to rule out UTI. Denies pain. Explained to patient regarding pre ECT procedures/test to prepare for the day that he going to start. We will start ECT on Saturday. Per Dr. Wrad, we will taper down on Latuda, start him on Modafinil low dose to help with severe depression. Continued to reports moderate to severe depression. Denies suicidal thoughts or hallucinations. 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 He denied any significant or excessive drug exposure. I do not find any focal lesion, acute or chronic, suggestive of stroke. There was no contraindication to treatment with ECT. Otherwise treatment of this condition is supportive, symptomatic and conservative Taper down on Latuda from 120 down to 100 mg daily at 17:00 for mood. Start on Modefinil 100ng daily for severe depression, low energy, poor concentration, poor motivation. ECT will be scheduled next week on Saturday. We will received treatment for Saturday/Saturday and Saturday. 04/09/25: Patient denies pain, normal bowel movement, slept well and compliant with medications. Denies side effects. Denies suicidal thoughts or hallucinations but reports mild on anxiety and moderate to severe depression. Patient appeared to be disheveled. Encourage patient to be out of bed in attended to groups included OT groups which observe he is visible in day room after the conversation. The OT will do the [place] for pre ECT next week on Saturday prior the ECT. He started modafinil 50 mg this morning. Indication and side effects explained to patient. Patient is receptive with the plan. Correction: Modefinill 50mg daily. MOCA scheduled next week prior to ECT. Patient educated on: diagnosis, medication risk/benefits and therapeutic strategies Informed Consent: understands Reason for continued inpatient stay Substantial Risk for: med/psych decompensation Time Spent With Patient Time: Total time managing care of this patient today ____ minutes.
[2025-04-09 19:49] VITALS: BP 101/56; PULSE 70; RESP 16; TEMP 36.8; O2SAT 94
[2025-04-10 07:47] VITALS: BP 105/61; PULSE 75; RESP 14; TEMP 36.6; O2SAT 95
--- NOTE | 2025-04-10 08:18 | P.CNHOSGPS_ITS ---
History of Present Illness Data of Consult Service Date: 04/10/25 Requesting physician: Drew Ward Primary Care Provider: Sonja Velasco MD [facility] Reason for consult: Preop evaluation for ECT. This is a 49-year-old male history of CVA, JUVENTINO, bipolar, obesity status post gastric sleeve, depression who the hospitalist team was asked to round on for preop clearance for ECT. According to patient he had not been told that he was getting any CT so he is taken by surprise that I am asking these questions. He reports he has never had 1 before. Denies any PMH of cerebral hemorrhage , CAD, space-occupying intracranial lesion, seizure, or TBI. He does report brain atrophy and CVA in the past. No known history of bleeding disorders or otherwise unstable vascular aneurysms, severe pulmonary conditions, or past problems with anesthesia. Currently denies any acute medical complaints at this time. No chest pain/pressure, palpitations. No shortness of breath. Denies headache, acute vision changes. No lightheadedness or dizziness. Denies fever, chills, nausea, vomiting, abdominal pain. EKG showed normal sinus rhythm without significant ST elevations or depression or prolonged QTc. Review of Systems 2 Review of Systems: Yes all other systems are reviewed and are negative [facility] Medical History Obesity LUIS (obstructive sleep apnea) HLD (hyperlipidemia) HTN (hypertension) CVA (cerebral vascular accident) Functional capacity: independent ambulation Social History Household Members: Other Household Members Other:: transitional housing Housing: Other Do you presently have visiting nurse or other home services: No Patient Tobacco Use Status: Never used Tobacco Second Hand Smoke Exposure: Yes Currently Displaying Signs/Symptoms of Drug Intoxication Withdrawal: No Have you been hit, kicked, punched, or otherwise hurt by someone within the past year? If so, by whom?: No Do you feel safe in your current relationship?: No Current Relationship Is there a partner from a previous relationship who is making you feel unsafe now?: No Are you made to feel afraid or neglected: No Advance Directives: No Advance Directives Information Provided: No Do you have thoughts of harming others: None Do you have a plan to hurt others: No Plan Recently lost weight without trying: No Eating poorly because of decreased appetite: No Nutrition Risks: No Nutritional Risk Poor oral hygiene: Yes (very dry scalp) service: No Sexual orientation: Straight/Heterosexual Meds Allergies Allergy/AdvReac Type Severity Reaction Status Date / Time pumpkin Allergy Unknown Unknown Verified 12/24/24 12:26 Active Medications: Current Medications Acetaminophen (Acetaminophen 325 Mg Tablet) 650 mg PO Q6H PRN PRN Reason: Headache/Pain, Scale 1-10 Al Hydroxide/Mg Hydroxide (Magnesium Hydrox/Alum Hydrox 30 Ml Oral.Susp) 30 ml PO Q6H PRN PRN Reason: Heartburn/Nausea Aspirin (Aspirin Enteric Coated 81 Mg Tablet.Dr) 81 mg PO DAILY [facility] Last Admin: 04/09/25 08:17 Dose: 81 mg Atorvastatin Calcium (Atorvastatin Calcium 20 Mg Tablet) 20 mg PO BEDTIME [facility] Last Admin: 04/09/25 21:24 Dose: 20 mg Bisacodyl (Bisacodyl 10 Mg Supp.Rect) 10 mg [place] BEDTIME PRN PRN Reason: Constipation Bupropion HCl (Bupropion Hcl Xl 150 Mg Tab.Er.24h) 450 mg PO DAILY [facility] Last Admin: 04/09/25 08:17 Dose: 450 mg Docusate Sodium (Docusate Sodium 100 Mg Capsule) 100 mg PO BID [facility] Last Admin: 04/09/25 21:24 Dose: 100 mg Hydroxyzine HCl (Hydroxyzine Hcl 25 Mg Tablet) 25 mg PO Q6H PRN PRN Reason: mild anxiety Last Admin: 03/26/25 23:24 Dose: 25 mg Lurasidone HCl (Lurasidone Hcl 20 Mg Tablet) 100 mg PO DAILY@1700 [facility] Last Admin: 04/09/25 17:42 Dose: 100 mg Magnesium Hydroxide (Milk Of Magnesia 30 Ml Oral.Susp) 30 ml PO DAILY PRN PRN Reason: Constipation Modafinil (Modafinil 100 Mg Tablet) 50 mg PO DAILY [facility] Last Admin: 04/09/25 09:07 Dose: 50 mg Nicotine (Nicotine 21 Mg Patch.Td24) 21 mg TRANSDERMA DAILY PRN PRN Reason: nicotine craving Nicotine Polacrilex (Nicotine Polacrilex 2 Mg Gum) 2 mg BUCCAL Q2H PRN PRN Reason: Nicotine Cravings Olanzapine (Olanzapine 5 Mg Tablet) 5 mg PO BID PRN PRN Reason: agitation Polyethylene Glycol (Polyethylene Glycol 3350 17 Gm Powd.Pack) 17 gm PO DAILY [facility] Last Admin: 04/09/25 08:18 Dose: Not Given Senna (Sennosides 8.6 Mg Tablet) 17.2 mg PO BEDTIME [facility] Last Admin: 04/09/25 21:24 Dose: 17.2 mg Trazodone HCl (Trazodone Hcl 50 Mg Tablet) 50 mg PO BEDTIME MRX1 PRN PRN Reason: Insomnia Last Admin: 04/05/25 23:14 Dose: 50 mg Results Labs 04/06/25 14:28 04/06/25 14:28 Assessment and Plan (1) Bipolar disorder: Status: Acute (2) JUVENTINO (acute kidney injury): Status: Acute (3) CVA (cerebral vascular accident): Status: Acute (4) Abnormal head CT: Status: Acute Plan ECT risk stratification Patient without previous problems with anesthesia, has not previously undergone ECT RCRI 1 points, therefore BNP ordered EKG showing QTc WNL, no evidence of ischemic changes Based on stated PMH, HPI, and physical exam, there are no apparent medical contraindications to the planned procedure as long as BNP is normal Revised Cardiac Risk Index for Pre-Operative Risk from [email or web address] on 04/10/2025 All calculations should be rechecked by clinician prior to use RESULT SUMMARY: 1 points RCRI Score 1.1 % Risk of major cardiac event INPUTS: High-risk surgery ?> 0 = No History of ischemic heart disease ?> 0 = No History of congestive heart failure ?> 0 = No History of cerebrovascular disease ?> 1 = Yes Pre-operative treatment with insulin ?> 0 = No Pre-operative creatinine >2 mg/dL / 176.8 ?mol/L ?> 0 = No * If the RCRI is >=, the patient?s age is >=5, or they are between 45-64 years old with significant cardiac disease, consider obtaining NT-proBNP or BNP. * If the NT-proBNP is >=00 ng/L or BNP is >=2 ng/L, then an EKG should be ordered in the PACU, and troponins should be measured daily for 48-72 hours. * If, after risk stratification, the NT-proBNP is <300 ng/L or BNP <92 ng/L, no routine postoperative cardiac monitoring is recommended. * If these assays are not available, then patients should be monitored with an EKG in the PACU and troponin measurements daily for 48-72 hours if they meet any one of the following additional criteria: known history of coronary artery disease, cerebral vascular disease, peripheral artery disease, heart failure, severe pulmonary hypertension, or a severe obstructive intracardiac abnormality (e.g., severe aortic stenosis, severe mitral stenosis, or severe hypertrophic obstructive cardiomyopathy). Total time managing care of this patient today: 15 minutes. Physical Exam Vital Signs: Last Vital Signs Temp 97.9 F 04/10/25 07:47 Pulse 75 04/10/25 07:47 Resp 14 04/10/25 07:47 BP 105/61 04/10/25 07:47 Pulse Ox 95 04/10/25 07:47 O2 Del Method Room Air 04/10/25 07:47 BMI result Body Mass Index 31.4 vss Appearance: Alert.? Oriented X3.? No acute distress.? Head: Normocephalic, atraumatic, no step-offs or deformities Eyes: Pupils equal, round and reactive to light.? ENT: Pharynx normal.? Neck: Normal inspection.? Neck supple.? CVS: Normal heart rate and rhythm.? Pulses normal.? Respiratory: No respiratory distress.? Breath sounds normal.? Abdomen: Soft and nontender.? Skin: Skin warm and dry.? Normal skin color.? Normal skin turgor.? Extremities: No lower extremity edema.? No calf ttp. 5/5 strength to bilateral upper and lower extremities Back: No midline tenderness, no C-spine tenderness, full range of motion, no CVA tenderness bilaterally Neuro: Oriented X 3.? No motor deficit.? No sensory deficit. CN 2-12 intact Neuro Cranial nerves: Yes CN's II-XII intact bilaterally
[2025-04-10] MEDS: buPROPion HCl XL 150 MG TAB.ER.24H 450 MG PO (08:38)
[2025-04-10] MEDS: Aspirin Enteric Coated 81 MG TABLET.DR PO (08:39)
[2025-04-10 09:55] LABS: B Type Natriuretic Peptide < 10 pg/mL (<100)
--- NOTE | 2025-04-10 14:23 | HO.PSYCHPN ---
Subjective Subjective Date of Service: 04/10/25 Reason For Visit: SI Interim History: Laying in bed most of morning. Patient continues to report feeling depressed. He reports looking forward to ECT; pt stated, I think it will be a positive step to get ECT . denies SI/HI/VH/AH. Encouraged to get out of bed. Continue tx plan. Medication Compliance: Yes Side effects from medications: No Attending Groups: No Mental Status Exam Mental Status Exam Patient Appearance: Disheveled Patient Orientation: Person, Place, Time and Situation Level of Consciousness: Awake Patient Behavior: Cooperative Mood Description: Depressed Affect Description: Depressed Ability to Follow Directions: Good Speech Pattern: Clear Memory Description: Intact Hallucinations: None Delusions: Not Present Thought Process: Intact Thought Content: positive for Intact Diagnostics Vital Signs (24Hr): Vital Signs - 24 hr 04/09/25 19:49 04/10/25 07:47 Temperature 98.3 F 97.9 F Pulse Rate 70 75 Respiratory Rate 16 14 Blood Pressure 101/56 L 105/61 Pulse Oximetry 94 95 Oxygen Delivery Method Room Air Room Air BMI result Body Mass Index 31.4 Labs 04/06/25 14:28 04/06/25 14:28 Labs: Laboratory Results - last 48 hr 04/10/25 09:18 B-Natriuretic Peptide < 10 Imaging Radiology Impressions: ITS Impressions Head CT 04/06/25 13:54 IMPRESSION: No acute intracranial hemorrhage. Bifrontal bitemporal lobes atrophy. Electronically signed by: Roque Guillen MD 04/06/2025 02:15 PM EDT Medications Medications Current Medications Acetaminophen (Acetaminophen 325 Mg Tablet) 650 mg PO Q6H PRN PRN Reason: Headache/Pain, Scale 1-10 Al Hydroxide/Mg Hydroxide (Magnesium Hydrox/Alum Hydrox 30 Ml Oral.Susp) 30 ml PO Q6H PRN PRN Reason: Heartburn/Nausea Aspirin (Aspirin Enteric Coated 81 Mg Tablet.) 81 mg PO DAILY [facility] Last Admin: 04/10/25 08:39 Dose: 81 mg Atorvastatin Calcium (Atorvastatin Calcium 20 Mg Tablet) 20 mg PO BEDTIME JENNIFER Last Admin: 04/09/25 21:24 Dose: 20 mg Bisacodyl (Bisacodyl 10 Mg Supp.Rect) 10 mg SC BEDTIME PRN PRN Reason: Constipation Bupropion HCl (Bupropion Hcl Xl 150 Mg Tab.Er.24h) 450 mg PO DAILY [facility] Last Admin: 04/10/25 08:38 Dose: 450 mg Docusate Sodium (Docusate Sodium 100 Mg Capsule) 100 mg PO BID [facility] Last Admin: 04/10/25 08:38 Dose: 100 mg Hydroxyzine HCl (Hydroxyzine Hcl 25 Mg Tablet) 25 mg PO Q6H PRN PRN Reason: mild anxiety Last Admin: 03/26/25 23:24 Dose: 25 mg Lurasidone HCl (Lurasidone Hcl 20 Mg Tablet) 100 mg PO DAILY@1700 [facility] Last Admin: 04/09/25 17:42 Dose: 100 mg Magnesium Hydroxide (Milk Of Magnesia 30 Ml Oral.Susp) 30 ml PO DAILY PRN PRN Reason: Constipation Modafinil (Modafinil 100 Mg Tablet) 50 mg PO DAILY [facility] Last Admin: 04/10/25 08:39 Dose: 50 mg Nicotine (Nicotine 21 Mg Patch.Td24) 21 mg TRANSDERMA DAILY PRN PRN Reason: nicotine craving Nicotine Polacrilex (Nicotine Polacrilex 2 Mg Gum) 2 mg BUCCAL Q2H PRN PRN Reason: Nicotine Cravings Olanzapine (Olanzapine 5 Mg Tablet) 5 mg PO BID PRN PRN Reason: agitation Polyethylene Glycol (Polyethylene Glycol 3350 17 Gm Powd.Pack) 17 gm PO DAILY [facility] Last Admin: 04/10/25 08:40 Dose: Not Given Senna (Sennosides 8.6 Mg Tablet) 17.2 mg PO BEDTIME [facility] Last Admin: 04/09/25 21:24 Dose: 17.2 mg Trazodone HCl (Trazodone Hcl 50 Mg Tablet) 50 mg PO BEDTIME MRX1 PRN PRN Reason: Insomnia Last Admin: 04/05/25 23:14 Dose: 50 mg Allergies Allergies Allergy/AdvReac Type Severity Reaction Status Date / Time pumpkin Allergy Unknown Unknown Verified 12/24/24 12:26 Assessment & Plan Assessment & Plan (1) Bipolar disorder: Status: Acute Code(s): F31.9 - Bipolar disorder, unspecified (2) JUVENTINO (acute kidney injury): Status: Acute Code(s): N17.9 - Acute kidney failure, unspecified (3) CVA (cerebral vascular accident): Status: Acute Code(s): I63.9 - Cerebral infarction, unspecified (4) Abnormal head CT: Status: Acute Code(s): R93.0 - Abnormal findings on diagnostic imaging of skull and head, not elsewhere classified Plan 03/27: feels latuda 120 has been helpful. however, remains depressed. add wellbutrin XL 150 daily for depression, plan to increase to 300 mg daily in 3 days. may also consider ECT due to lack of improvement despite numerous recent hospitalizations + lethality of suicide attempts + recent self-abnegating behaviors. 03/28: no change in presentation, no requests or complaints. started wellbutrin 150 today. continue current mgmt 03/29/25: Slept well, no issues with appetite. Observed out on the unit, attended groups, engaging. Reports depression and 03/21, denies anxiety. Constricted affect, congruent with mood. Denies safety concerns. Compliant with medications. Denies side effects from Wellbutrin. Continue to encourage groups. 03/30/25: Patient slept for 6 hours, was medication compliant. He attended 2 groups yesterday, however today he is more isolated, in bed a lot more time, declines a couple groups. Reports depressed but no anxiety, flat affect, depressed, but cooperative during one-to-one assessment. He is receptive with the plan of Wellbutrin increased up to 300 mg for depression. Reports passive SI, denies plan or intention. Denies other safety concerns. Encourage patient to go to groups and shower daily. Increase Wellbutrin XL to 300 mg daily for depression. He reported that he has bipolar type II. 03/31: Laying in bed. keeping to self. showered. patient reports feeling depressed ; pt stated, I'm not having a good day. I don't want to do anything . flat affect. denies SI/HI/VH/AH. Per nursing, slept 8 hours. encouraged to attend groups. continue current tx plan. 04/01/25: Patient slept for 8 hours, poor meal intake yesterday but was medication compliant. Denies side effects. When asked about if he has poor appetite as he ate only 50 of breakfast, and 25 for lunch and not eating dinner, he said because I did not do the menu, so I got what I do not like . He shower yesterday, continued to reports depression 03/21. Denied anxiety. He does not feel any difference from Wellbutrin 150 when and when it was increased up to 300 mg. Denies SI/SIB/HI/AVH, isolative self, he plans to attend groups today. This provider spoke with patient in length regarding medication trials. Per his report, has been trying so many antidepressants they just do not work, and continued to be depressed. Some of them are Zoloft, Paxil, Effexor, Celexa, Prozac, Cymbalta, Lexapro. He also having history of taking Zyprexa more than 20 years ago due to hearing voices. Then the voices was calm. He never has a take it again after. History of Abilify but not sure if it is working as he can not recall. Regarding ADLs: He said that he had food at the jail twice a day, but he is not showering for many days despite the fact that staff asked him to do so I just do not care about being clean . Reports very low energy, low motivation, been increased suicidal thoughts and depression. He used to love music and reading but not interested in doing anything like that anymore. Reported that he had gastric sleeve surgery back in August 2023 which he lost 230 lb. He weight 447 lb prior to the surgery. He identified that after the surgery he has been more depressed slowly over months. There was a time that he wanted to starve myself so I can when asked is that you that he has stopped eating at home. He also identified that he feel more depressed after surgery as he is not able to over eating like he did before. Family mental health illnesses: Reports that who both of his parents was depressed. Mom 11 years ago. 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 History of ECTs: Reports he had history of ECTs in 2010 when he was at in [facility].He felt worse after the treatment everything seems like a dream . He clarified that immediately after the treatment he feel that way which could be a side effects of ECT but not permanent. Educate patient on possible side effects ECTs. Patient denies having seizure during ECTs treatment, no seizure history no cardiac conditions/disease history. Reports history of hypertension, but not anymore. He also has been admitted to different hospitals for psychiatric admissions in the past couple of months. Reports staying at [facility] in December for a month. New hospital in the area names [facility]) in October for another month. Per email from his OP team- clinical director at [facility], they also express concerns of patient's conditions. It is noted that their concerns are very consistent with patient' report here on the unit. He also has been admitted to different hospitals for psychiatric admissions in the past couple of months. Reports staying at [facility] in December for a month. New hospital in the area names [facility]) in October for another month. Per email from his OP team- clinical director at [facility], they also express concerns of patient's conditions. It is noted that their concerns are very consistent with patient' report here on the unit. Alfredito has been in and out on inpatient level of care since October of this year, I believe every month, for a majority of the time. He was recently discharged from [facility] after a 1 month stay and within two hours of returning home wanted to return to the hospital, saying he was unwell, and within one day was sectioned by [facility], which is how he ended up with you now. He has been coming home and intentionally starving himself, even not eating for up to 1 week. We have known Alfredito for years and since this started in October, we have seen no significant improvement in his mental health or a return to baseline. In fact, we are observing his case as consistent with failure to thrive. We have been asking for him to be inpatient at [facility] or with you at [facility] for some time in order for him to be potentially considered for ECT level of treatment, if deemed appropriate. Multiple medication trials failture to target depressive symptoms. He will be a good candidate to get trial ECT treatment in combination with current medication regimens. Patient also agrees with the plan. We would start the treatment as soon as possible. Will discuss the case with in house psychiatrist-Dr. Ward to prepare for ECT treatment. Hope to start early next week. 04/02: Laying in bed. keeping to self. Patient continues to report feeling depressed; pt stated, I feel about the same. I spoke with the other provider and agreed to do ECT . He reports sleeping well. denies SI/HI/VH/AH. Encouraged to attend groups and shower. Continue current tx plan. 04/03: no changes- just started wellbutrin 04/04: no changes 04/05/25: report anxiety a 2-3/10 but still 8/10 for depression. No change since started Wellbutrin. He agrees to get Wellbutrin up to 450mg daily for depression. Isolative in room, staring up to the ceiling. Discuss with patient of option to start on Intuniv for severe depression. Patient declines it at this current time but agree to see Welbutrin increased would be helpful. He agrees with ECT. Encourage groups, he says he was at art group out to dinning area but there are too much so he went back to his room. Report not many groups offered over the weekends. 04/06/25: Patient slept for 6 hours, have a sleep study done last night. Reported that he did not sleep well. Appetite is okay. Mood is depressed 03/21, denies anxiety today. Denies suicidal thoughts, but reports he has passive SI yesterday intrusive, just do not Wanna live anymore . Denies hallucinations. Address with patient of why he having bowel movement in the shower. He said it is just one episode. Reports he feel constipated. Agree with Colace. He also inform regarding the ECT which was approved by the insurance. He compliant with medication, however reports he has not feeling any difference in terms of depression at since started on Wellbutrin. Encourage groups attendance. Observe him later on during the day reading at a table in dining area. Colace 100mg BID for constipation. ECT consult placed: Patient may be seen by tomorrow by Dr. Ward. Procedure done preparing for the ECT: Head CT scan negative, EKG normal sinus rhythm, Incomplete right bundle branch block. Borderline ECG_ no change when compare to previous EKG. Unremarkable CBC with diff. 04/07/25: Per hospitalist note: ECT risk stratification Patient without previous problems with anesthesia, has previously undergone ECT RCRI 0 points, no further cardiac workup or treatment indicated at this time EKG showed QT interval WNL, no evidence of ischemic changes Based on stated PMH, HPI, and physical exam, there are no apparent medical contraindications to the planned procedure. Patient is complaining of pelvic discomfort and constipation. We will add therapy with Senokot, MiraLax and obtain urinalysis to assess for urinary tract infection. Continue treatment with atorvastatin and aspirin for history of stroke and hyperlipidemia. 04/07/25: Patient compliant with medication, reports due to the pain abdominal, he could not sleep well last night. Continued to reports depressions 8/10, anxiety 4/10 today related to the pain. Denies suicidal thoughts or voices, isolated. Shower yesterday. Review with patient test need to be done prior to having ECT. Patient met with Dr. Ward and hospitalist for ECT clearance. Due to the pain, constipated, more laxative ordered today. Also UA other by hospitalist to rule out any infection. He is flat, low energy, low motivation, withdrawal, in room mostly, but come out to other rooms to talk to the providers 04/08/25: Patient slept for 8 hours, compliant with medications, denies side effect. Met with him in his room, reported that he slept better last night, having good bowel movement, denies diarrhea is. Informed him regarding the labs work/and UA that was negative to rule out UTI. Denies pain. Explained to patient regarding pre ECT procedures/test to prepare for the day that he going to start. We will start ECT on Saturday. Per Dr. Ward, we will taper down on Latuda, start him on Modafinil low dose to help with severe depression. Continued to reports moderate to severe depression. Denies suicidal thoughts or hallucinations. 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 He denied any significant or excessive drug exposure. I do not find any focal lesion, acute or chronic, suggestive of stroke. There was no contraindication to treatment with ECT. Otherwise treatment of this condition is supportive, symptomatic and conservative Taper down on Latuda from 120 down to 100 mg daily at 17:00 for mood. Start on Modefinil 100ng daily for severe depression, low energy, poor concentration, poor motivation. ECT will be scheduled next week on Saturday. We will received treatment for Saturday/Saturday and Saturday. 04/09/25: Patient denies pain, normal bowel movement, slept well and compliant with medications. Denies side effects. Denies suicidal thoughts or hallucinations but reports mild on anxiety and moderate to severe depression. Patient appeared to be disheveled. Encourage patient to be out of bed in attended to groups included OT groups which observe he is visible in day room after the conversation. The OT will do the Corn for pre ECT next week on Saturday prior the ECT. He started modafinil 50 mg this morning. Indication and side effects explained to patient. Patient is receptive with the plan. Correction: Modefinill 50mg daily. MOCA scheduled next week prior to ECT. 04/10:Laying in bed most of morning. Patient continues to report feeling depressed. He reports looking forward to ECT; pt stated, I think it will be a positive step to get ECT . denies SI/HI/VH/AH. Encouraged to get out of bed. Continue tx plan Patient educated on: diagnosis and medication risk/benefits Reason for continued inpatient stay Substantial Risk for: med/psych decompensation Time Spent With Patient Time: Total time managing care of this patient today _10___ minutes.
[2025-04-10 19:35] VITALS: BP 123/85; PULSE 67; RESP 16; TEMP 36.6; O2SAT 99
[2025-04-11 07:52] VITALS: BP 116/72; PULSE 67; RESP 16; TEMP 36.4; O2SAT 99
[2025-04-11] MEDS: buPROPion HCl XL 150 MG TAB.ER.24H 450 MG PO (08:21)
[2025-04-11] MEDS: Aspirin Enteric Coated 81 MG TABLET.DR PO (08:21)
--- NOTE | 2025-04-11 08:31 | HO.PSYCHPN ---
Subjective Subjective Date of Service: 04/11/25 Reason For Visit: SI Interim History: Per nursing, pt did not get out of bed yesterday. Observed laying in bed this morning; encouraged to attend groups and shower. Patient continues to report feeling depressed. denies SI/HI/VH/AH. Encouraged to get out of bed. Continue tx plan. Medication Compliance: Yes Side effects from medications: No Attending Groups: No Mental Status Exam Mental Status Exam Patient Appearance: Disheveled Patient Orientation: Person, Place, Time and Situation Level of Consciousness: Awake Patient Behavior: Cooperative Mood Description: Depressed Affect Description: Depressed Ability to Follow Directions: Good Speech Pattern: Clear Memory Description: Intact Hallucinations: None Delusions: Not Present Thought Process: Intact Thought Content: positive for Intact Diagnostics Vital Signs (24Hr): Vital Signs - 24 hr 04/10/25 19:35 04/11/25 07:52 Temperature 97.9 F 97.6 F Pulse Rate 67 67 Respiratory Rate 16 16 Blood Pressure 123/85 116/72 Pulse Oximetry 99 99 Oxygen Delivery Method Room Air Room Air BMI result Body Mass Index 31.4 Labs 04/06/25 14:28 04/06/25 14:28 Labs: Laboratory Results - last 48 hr 04/10/25 09:18 B-Natriuretic Peptide < 10 Imaging Radiology Impressions: ITS Impressions Head CT 04/06/25 13:54 IMPRESSION: No acute intracranial hemorrhage. Bifrontal bitemporal lobes atrophy. Electronically signed by: Roque Guillen MD 04/06/2025 02:15 PM EDT Medications Medications Current Medications Acetaminophen (Acetaminophen 325 Mg Tablet) 650 mg PO Q6H PRN PRN Reason: Headache/Pain, Scale 1-10 Al Hydroxide/Mg Hydroxide (Magnesium Hydrox/Alum Hydrox 30 Ml Oral.Susp) 30 ml PO Q6H PRN PRN Reason: Heartburn/Nausea Aspirin (Aspirin Enteric Coated 81 Mg Tablet.) 81 mg PO DAILY [facility] Last Admin: 04/11/25 08:21 Dose: 81 mg Atorvastatin Calcium (Atorvastatin Calcium 20 Mg Tablet) 20 mg PO BEDTIME [facility] Last Admin: 04/10/25 20:37 Dose: 20 mg Bisacodyl (Bisacodyl 10 Mg Supp.Rect) 10 mg [place] BEDTIME PRN PRN Reason: Constipation Bupropion HCl (Bupropion Hcl Xl 150 Mg Tab.Er.24h) 450 mg PO DAILY [facility] Last Admin: 04/11/25 08:21 Dose: 450 mg Docusate Sodium (Docusate Sodium 100 Mg Capsule) 100 mg PO BID [facility] Last Admin: 04/11/25 08:21 Dose: 100 mg Hydroxyzine HCl (Hydroxyzine Hcl 25 Mg Tablet) 25 mg PO Q6H PRN PRN Reason: mild anxiety Last Admin: 03/26/25 23:24 Dose: 25 mg Lurasidone HCl (Lurasidone Hcl 20 Mg Tablet) 100 mg PO DAILY@1700 [facility] Last Admin: 04/10/25 17:17 Dose: 100 mg Magnesium Hydroxide (Milk Of Magnesia 30 Ml Oral.Susp) 30 ml PO DAILY PRN PRN Reason: Constipation Modafinil (Modafinil 100 Mg Tablet) 50 mg PO DAILY [facility] Last Admin: 04/11/25 08:21 Dose: 50 mg Nicotine (Nicotine 21 Mg Patch.Td24) 21 mg TRANSDERMA DAILY PRN PRN Reason: nicotine craving Nicotine Polacrilex (Nicotine Polacrilex 2 Mg Gum) 2 mg BUCCAL Q2H PRN PRN Reason: Nicotine Cravings Olanzapine (Olanzapine 5 Mg Tablet) 5 mg PO BID PRN PRN Reason: agitation Polyethylene Glycol (Polyethylene Glycol 3350 17 Gm Powd.Pack) 17 gm PO DAILY [facility] Last Admin: 04/11/25 08:22 Dose: Not Given Senna (Sennosides 8.6 Mg Tablet) 17.2 mg PO BEDTIME [facility] Last Admin: 04/10/25 20:37 Dose: 17.2 mg Trazodone HCl (Trazodone Hcl 50 Mg Tablet) 50 mg PO BEDTIME MRX1 PRN PRN Reason: Insomnia Last Admin: 04/05/25 23:14 Dose: 50 mg Allergies Allergies Allergy/AdvReac Type Severity Reaction Status Date / Time pumpkin Allergy Unknown Unknown Verified 12/24/24 12:26 Assessment & Plan Assessment & Plan (1) Bipolar disorder: Status: Acute Code(s): F31.9 - Bipolar disorder, unspecified (2) JUVENTINO (acute kidney injury): Status: Acute Code(s): N17.9 - Acute kidney failure, unspecified (3) CVA (cerebral vascular accident): Status: Acute Code(s): I63.9 - Cerebral infarction, unspecified (4) Abnormal head CT: Status: Acute Code(s): R93.0 - Abnormal findings on diagnostic imaging of skull and head, not elsewhere classified Plan 03/27: feels latuda 120 has been helpful. however, remains depressed. add wellbutrin XL 150 daily for depression, plan to increase to 300 mg daily in 3 days. may also consider ECT due to lack of improvement despite numerous recent hospitalizations + lethality of suicide attempts + recent self-abnegating behaviors. 03/28: no change in presentation, no requests or complaints. started wellbutrin 150 today. continue current mgmt 03/29/25: Slept well, no issues with appetite. Observed out on the unit, attended groups, engaging. Reports depression and 03/21, denies anxiety. Constricted affect, congruent with mood. Denies safety concerns. Compliant with medications. Denies side effects from Wellbutrin. Continue to encourage groups. 03/30/25: Patient slept for 6 hours, was medication compliant. He attended 2 groups yesterday, however today he is more isolated, in bed a lot more time, declines a couple groups. Reports depressed but no anxiety, flat affect, depressed, but cooperative during one-to-one assessment. He is receptive with the plan of Wellbutrin increased up to 300 mg for depression. Reports passive SI, denies plan or intention. Denies other safety concerns. Encourage patient to go to groups and shower daily. Increase Wellbutrin XL to 300 mg daily for depression. He reported that he has bipolar type II. 03/31: Laying in bed. keeping to self. showered. patient reports feeling depressed ; pt stated, I'm not having a good day. I don't want to do anything . flat affect. denies SI/HI/VH/AH. Per nursing, slept 8 hours. encouraged to attend groups. continue current tx plan. 04/01/25: Patient slept for 8 hours, poor meal intake yesterday but was medication compliant. Denies side effects. When asked about if he has poor appetite as he ate only 50 of breakfast, and 25 for lunch and not eating dinner, he said because I did not do the menu, so I got what I do not like . He shower yesterday, continued to reports depression 03/21. Denied anxiety. He does not feel any difference from Wellbutrin 150 when and when it was increased up to 300 mg. Denies SI/SIB/HI/AVH, isolative self, he plans to attend groups today. This provider spoke with patient in length regarding medication trials. Per his report, has been trying so many antidepressants they just do not work, and continued to be depressed. Some of them are Zoloft, Paxil, Effexor, Celexa, Prozac, Cymbalta, Lexapro. He also having history of taking Zyprexa more than 20 years ago due to hearing voices. Then the voices was calm. He never has a take it again after. History of Abilify but not sure if it is working as he can not recall. Regarding ADLs: He said that he had food at the halfway twice a day, but he is not showering for many days despite the fact that staff asked him to do so I just do not care about being clean . Reports very low energy, low motivation, been increased suicidal thoughts and depression. He used to love music and reading but not interested in doing anything like that anymore. Reported that he had gastric sleeve surgery back in August 2023 which he lost 230 lb. He weight 447 lb prior to the surgery. He identified that after the surgery he has been more depressed slowly over months. There was a time that he wanted to starve myself so I can when asked is that you that he has stopped eating at home. He also identified that he feel more depressed after surgery as he is not able to over eating like he did before. Family mental health illnesses: Reports that who both of his parents was depressed. Mom 11 years ago. 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 History of ECTs: Reports he had history of ECTs in 2010 when he was at in [facility].He felt worse after the treatment everything seems like a dream . He clarified that immediately after the treatment he feel that way which could be a side effects of ECT but not permanent. Educate patient on possible side effects ECTs. Patient denies having seizure during ECTs treatment, no seizure history no cardiac conditions/disease history. Reports history of hypertension, but not anymore. He also has been admitted to different hospitals for psychiatric admissions in the past couple of months. Reports staying at [facility] in December for a month. New hospital in the area names [facility]) in October for another month. Per email from his OP team- clinical director at [facility], they also express concerns of patient's conditions. It is noted that their concerns are very consistent with patient' report here on the unit. He also has been admitted to different hospitals for psychiatric admissions in the past couple of months. Reports staying at [facility] in December for a month. New hospital in the area names [facility]) in October for another month. Per email from his OP team- clinical director at [facility], they also express concerns of patient's conditions. It is noted that their concerns are very consistent with patient' report here on the unit. Alfredito has been in and out on inpatient level of care since October of this year, I believe every month, for a majority of the time. He was recently discharged from [facility] after a 1 month stay and within two hours of returning home wanted to return to the hospital, saying he was unwell, and within one day was sectioned by [facility], which is how he ended up with you now. He has been coming home and intentionally starving himself, even not eating for up to 1 week. We have known Alfredito for years and since this started in October, we have seen no significant improvement in his mental health or a return to baseline. In fact, we are observing his case as consistent with failure to thrive. We have been asking for him to be inpatient at [facility] or with you at [facility] for some time in order for him to be potentially considered for ECT level of treatment, if deemed appropriate. Multiple medication trials failture to target depressive symptoms. He will be a good candidate to get trial ECT treatment in combination with current medication regimens. Patient also agrees with the plan. We would start the treatment as soon as possible. Will discuss the case with in house psychiatrist-Dr. Ward to prepare for ECT treatment. Hope to start early next week. 04/02: Laying in bed. keeping to self. Patient continues to report feeling depressed; pt stated, I feel about the same. I spoke with the other provider and agreed to do ECT . He reports sleeping well. denies SI/HI/VH/AH. Encouraged to attend groups and shower. Continue current tx plan. 04/03: no changes- just started wellbutrin 04/04: no changes 04/05/25: report anxiety a 2-3/10 but still 8/10 for depression. No change since started Wellbutrin. He agrees to get Wellbutrin up to 450mg daily for depression. Isolative in room, staring up to the ceiling. Discuss with patient of option to start on Intuniv for severe depression. Patient declines it at this current time but agree to see Welbutrin increased would be helpful. He agrees with ECT. Encourage groups, he says he was at art group out to dinning area but there are too much so he went back to his room. Report not many groups offered over the weekends. 04/06/25: Patient slept for 6 hours, have a sleep study done last night. Reported that he did not sleep well. Appetite is okay. Mood is depressed 03/21, denies anxiety today. Denies suicidal thoughts, but reports he has passive SI yesterday intrusive, just do not Wanna live anymore . Denies hallucinations. Address with patient of why he having bowel movement in the shower. He said it is just one episode. Reports he feel constipated. Agree with Colace. He also inform regarding the ECT which was approved by the insurance. He compliant with medication, however reports he has not feeling any difference in terms of depression at since started on Wellbutrin. Encourage groups attendance. Observe him later on during the day reading at a table in dining area. Colace 100mg BID for constipation. ECT consult placed: Patient may be seen by tomorrow by Dr. Ward. Procedure done preparing for the ECT: Head CT scan negative, EKG normal sinus rhythm, Incomplete right bundle branch block. Borderline ECG_ no change when compare to previous EKG. Unremarkable CBC with diff. 04/07/25: Per hospitalist note: ECT risk stratification Patient without previous problems with anesthesia, has previously undergone ECT RCRI 0 points, no further cardiac workup or treatment indicated at this time EKG showed QT interval WNL, no evidence of ischemic changes Based on stated PMH, HPI, and physical exam, there are no apparent medical contraindications to the planned procedure. Patient is complaining of pelvic discomfort and constipation. We will add therapy with Senokot, MiraLax and obtain urinalysis to assess for urinary tract infection. Continue treatment with atorvastatin and aspirin for history of stroke and hyperlipidemia. 04/07/25: Patient compliant with medication, reports due to the pain abdominal, he could not sleep well last night. Continued to reports depressions 8/10, anxiety 4/10 today related to the pain. Denies suicidal thoughts or voices, isolated. Shower yesterday. Review with patient test need to be done prior to having ECT. Patient met with Dr. Ward and hospitalist for ECT clearance. Due to the pain, constipated, more laxative ordered today. Also UA other by hospitalist to rule out any infection. He is flat, low energy, low motivation, withdrawal, in room mostly, but come out to other rooms to talk to the providers 04/08/25: Patient slept for 8 hours, compliant with medications, denies side effect. Met with him in his room, reported that he slept better last night, having good bowel movement, denies diarrhea is. Informed him regarding the labs work/and UA that was negative to rule out UTI. Denies pain. Explained to patient regarding pre ECT procedures/test to prepare for the day that he going to start. We will start ECT on Saturday. Per Dr. Ward, we will taper down on Latuda, start him on Modafinil low dose to help with severe depression. Continued to reports moderate to severe depression. Denies suicidal thoughts or hallucinations. 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 He denied any significant or excessive drug exposure. I do not find any focal lesion, acute or chronic, suggestive of stroke. There was no contraindication to treatment with ECT. Otherwise treatment of this condition is supportive, symptomatic and conservative Taper down on Latuda from 120 down to 100 mg daily at 17:00 for mood. Start on Modefinil 100ng daily for severe depression, low energy, poor concentration, poor motivation. ECT will be scheduled next week on Saturday. We will received treatment for Saturday/Saturday and Saturday. 04/09/25: Patient denies pain, normal bowel movement, slept well and compliant with medications. Denies side effects. Denies suicidal thoughts or hallucinations but reports mild on anxiety and moderate to severe depression. Patient appeared to be disheveled. Encourage patient to be out of bed in attended to groups included OT groups which observe he is visible in day room after the conversation. The OT will do the [place] for pre ECT next week on Saturday prior the ECT. He started modafinil 50 mg this morning. Indication and side effects explained to patient. Patient is receptive with the plan. Correction: Modefinill 50mg daily. MOCA scheduled next week prior to ECT. 04/10:Laying in bed most of morning. Patient continues to report feeling depressed. He reports looking forward to ECT; pt stated, I think it will be a positive step to get ECT . denies SI/HI/VH/AH. Encouraged to get out of bed. Continue tx plan 04/11: Per nursing, pt did not get out of bed yesterday. Observed laying in bed this morning; encouraged to attend groups and shower. Patient continues to report feeling depressed. denies SI/HI/VH/AH. Encouraged to get out of bed. Continue tx plan. Patient educated on: diagnosis, medication risk/benefits and therapeutic strategies Reason for continued inpatient stay Substantial Risk for: med/psych decompensation Time Spent With Patient Time: Total time managing care of this patient today _15___ minutes.
[2025-04-11 20:00] VITALS: BP 94/63; PULSE 111; RESP 16; TEMP 36.6; O2SAT 98
[2025-04-12 07:20] VITALS: BP 109/64; PULSE 66; RESP 16; TEMP 36.8; O2SAT 95
[2025-04-12] MEDS: Aspirin Enteric Coated 81 MG TABLET.DR PO (08:39)
[2025-04-12] MEDS: buPROPion HCl XL 150 MG TAB.ER.24H 450 MG PO (08:40)
--- NOTE | 2025-04-12 13:23 | HO.PSYCHPN ---
Subjective Subjective Date of Service: 04/12/25 Reason For Visit: SI Interim History: In and out of bed this morning. keeping to self. Patient continues to report feeling depressed; he is hopeful of ECT decreasing his depression. denies SI/HI/VH/AH. Encouraged to stay out of bed. Continue tx plan. Medication Compliance: Yes Side effects from medications: No Attending Groups: No Mental Status Exam Mental Status Exam Patient Appearance: Disheveled Patient Orientation: Person, Place, Time and Situation Level of Consciousness: Awake Patient Behavior: Cooperative Mood Description: Depressed Affect Description: Depressed Ability to Follow Directions: Good Speech Pattern: Clear Memory Description: Intact Hallucinations: None Delusions: Not Present Thought Process: Intact and Goal Oriented Thought Content: positive for Intact Diagnostics Vital Signs (24Hr): Vital Signs - 24 hr 04/11/25 20:00 04/12/25 07:20 Temperature 97.9 F 98.3 F Pulse Rate 111 H 66 Respiratory Rate 16 16 Blood Pressure 94/63 109/64 Pulse Oximetry 98 95 Oxygen Delivery Method Room Air Room Air BMI result Body Mass Index 31.4 Labs 04/06/25 14:28 04/06/25 14:28 Imaging Radiology Impressions: ITS Impressions Head CT 04/06/25 13:54 IMPRESSION: No acute intracranial hemorrhage. Bifrontal bitemporal lobes atrophy. Electronically signed by: Roque Guillen MD 04/06/2025 02:15 PM EDT Medications Medications Current Medications Acetaminophen (Acetaminophen 325 Mg Tablet) 650 mg PO Q6H PRN PRN Reason: Headache/Pain, Scale 1-10 Al Hydroxide/Mg Hydroxide (Magnesium Hydrox/Alum Hydrox 30 Ml Oral.Susp) 30 ml PO Q6H PRN PRN Reason: Heartburn/Nausea Aspirin (Aspirin Enteric Coated 81 Mg Tablet.) 81 mg PO DAILY [facility] Last Admin: 04/12/25 08:39 Dose: 81 mg Atorvastatin Calcium (Atorvastatin Calcium 20 Mg Tablet) 20 mg PO BEDTIME [facility] Last Admin: 04/11/25 20:46 Dose: 20 mg Bisacodyl (Bisacodyl 10 Mg Supp.Rect) 10 mg [place] BEDTIME PRN PRN Reason: Constipation Bupropion HCl (Bupropion Hcl Xl 150 Mg Tab.Er.24h) 450 mg PO DAILY [facility] Last Admin: 04/12/25 08:40 Dose: 450 mg Docusate Sodium (Docusate Sodium 100 Mg Capsule) 100 mg PO BID [facility] Last Admin: 04/12/25 08:39 Dose: 100 mg Hydroxyzine HCl (Hydroxyzine Hcl 25 Mg Tablet) 25 mg PO Q6H PRN PRN Reason: mild anxiety Last Admin: 03/26/25 23:24 Dose: 25 mg Lurasidone HCl (Lurasidone Hcl 20 Mg Tablet) 100 mg PO DAILY@1700 [facility] Last Admin: 04/11/25 17:23 Dose: 100 mg Magnesium Hydroxide (Milk Of Magnesia 30 Ml Oral.Susp) 30 ml PO DAILY PRN PRN Reason: Constipation Modafinil (Modafinil 100 Mg Tablet) 50 mg PO DAILY [facility] Last Admin: 04/12/25 08:40 Dose: 50 mg Nicotine (Nicotine 21 Mg Patch.Td24) 21 mg TRANSDERMA DAILY PRN PRN Reason: nicotine craving Nicotine Polacrilex (Nicotine Polacrilex 2 Mg Gum) 2 mg BUCCAL Q2H PRN PRN Reason: Nicotine Cravings Olanzapine (Olanzapine 5 Mg Tablet) 5 mg PO BID PRN PRN Reason: agitation Polyethylene Glycol (Polyethylene Glycol 3350 17 Gm Powd.Pack) 17 gm PO DAILY [facility] Last Admin: 04/12/25 08:39 Dose: 17 gm Senna (Sennosides 8.6 Mg Tablet) 17.2 mg PO BEDTIME [facility] Last Admin: 04/11/25 20:47 Dose: 17.2 mg Trazodone HCl (Trazodone Hcl 50 Mg Tablet) 50 mg PO BEDTIME MRX1 PRN PRN Reason: Insomnia Last Admin: 04/05/25 23:14 Dose: 50 mg Allergies Allergies Allergy/AdvReac Type Severity Reaction Status Date / Time pumpkin Allergy Unknown Unknown Verified 12/24/24 12:26 Assessment & Plan Assessment & Plan (1) Bipolar disorder: Status: Acute Code(s): F31.9 - Bipolar disorder, unspecified (2) JUVENTINO (acute kidney injury): Status: Acute Code(s): N17.9 - Acute kidney failure, unspecified (3) CVA (cerebral vascular accident): Status: Acute Code(s): I63.9 - Cerebral infarction, unspecified (4) Abnormal head CT: Status: Acute Code(s): R93.0 - Abnormal findings on diagnostic imaging of skull and head, not elsewhere classified Plan 03/27: feels latuda 120 has been helpful. however, remains depressed. add wellbutrin XL 150 daily for depression, plan to increase to 300 mg daily in 3 days. may also consider ECT due to lack of improvement despite numerous recent hospitalizations + lethality of suicide attempts + recent self-abnegating behaviors. 03/28: no change in presentation, no requests or complaints. started wellbutrin 150 today. continue current mgmt 03/29/25: Slept well, no issues with appetite. Observed out on the unit, attended groups, engaging. Reports depression and 03/21, denies anxiety. Constricted affect, congruent with mood. Denies safety concerns. Compliant with medications. Denies side effects from Wellbutrin. Continue to encourage groups. 03/30/25: Patient slept for 6 hours, was medication compliant. He attended 2 groups yesterday, however today he is more isolated, in bed a lot more time, declines a couple groups. Reports depressed but no anxiety, flat affect, depressed, but cooperative during one-to-one assessment. He is receptive with the plan of Wellbutrin increased up to 300 mg for depression. Reports passive SI, denies plan or intention. Denies other safety concerns. Encourage patient to go to groups and shower daily. Increase Wellbutrin XL to 300 mg daily for depression. He reported that he has bipolar type II. 03/31: Laying in bed. keeping to self. showered. patient reports feeling depressed ; pt stated, I'm not having a good day. I don't want to do anything . flat affect. denies SI/HI/VH/AH. Per nursing, slept 8 hours. encouraged to attend groups. continue current tx plan. 04/01/25: Patient slept for 8 hours, poor meal intake yesterday but was medication compliant. Denies side effects. When asked about if he has poor appetite as he ate only 50 of breakfast, and 25 for lunch and not eating dinner, he said because I did not do the menu, so I got what I do not like . He shower yesterday, continued to reports depression 03/21. Denied anxiety. He does not feel any difference from Wellbutrin 150 when and when it was increased up to 300 mg. Denies SI/SIB/HI/AVH, isolative self, he plans to attend groups today. This provider spoke with patient in length regarding medication trials. Per his report, has been trying so many antidepressants they just do not work, and continued to be depressed. Some of them are Zoloft, Paxil, Effexor, Celexa, Prozac, Cymbalta, Lexapro. He also having history of taking Zyprexa more than 20 years ago due to hearing voices. Then the voices was calm. He never has a take it again after. History of Abilify but not sure if it is working as he can not recall. Regarding ADLs: He said that he had food at the custodial twice a day, but he is not showering for many days despite the fact that staff asked him to do so I just do not care about being clean . Reports very low energy, low motivation, been increased suicidal thoughts and depression. He used to love music and reading but not interested in doing anything like that anymore. Reported that he had gastric sleeve surgery back in August 2023 which he lost 230 lb. He weight 447 lb prior to the surgery. He identified that after the surgery he has been more depressed slowly over months. There was a time that he wanted to starve myself so I can when asked is that you that he has stopped eating at home. He also identified that he feel more depressed after surgery as he is not able to over eating like he did before. Family mental health illnesses: Reports that who both of his parents was depressed. Mom 11 years ago. 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 History of ECTs: Reports he had history of ECTs in 2010 when he was at in [facility].He felt worse after the treatment everything seems like a dream . He clarified that immediately after the treatment he feel that way which could be a side effects of ECT but not permanent. Educate patient on possible side effects ECTs. Patient denies having seizure during ECTs treatment, no seizure history no cardiac conditions/disease history. Reports history of hypertension, but not anymore. He also has been admitted to different hospitals for psychiatric admissions in the past couple of months. Reports staying at [facility] in December for a month. New hospital in the area names [facility]) in October for another month. Per email from his OP team- clinical director at [facility], they also express concerns of patient's conditions. It is noted that their concerns are very consistent with patient' report here on the unit. He also has been admitted to different hospitals for psychiatric admissions in the past couple of months. Reports staying at [facility] in December for a month. New hospital in the area names [facility]) in October for another month. Per email from his OP team- clinical director at [facility], they also express concerns of patient's conditions. It is noted that their concerns are very consistent with patient' report here on the unit. Alfredito has been in and out on inpatient level of care since October of this year, I believe every month, for a majority of the time. He was recently discharged from [facility] after a 1 month stay and within two hours of returning home wanted to return to the hospital, saying he was unwell, and within one day was sectioned by [facility], which is how he ended up with you now. He has been coming home and intentionally starving himself, even not eating for up to 1 week. We have known Alfredito for years and since this started in October, we have seen no significant improvement in his mental health or a return to baseline. In fact, we are observing his case as consistent with failure to thrive. We have been asking for him to be inpatient at [facility] or with you at [facility] for some time in order for him to be potentially considered for ECT level of treatment, if deemed appropriate. Multiple medication trials failture to target depressive symptoms. He will be a good candidate to get trial ECT treatment in combination with current medication regimens. Patient also agrees with the plan. We would start the treatment as soon as possible. Will discuss the case with in house psychiatrist-Dr. Ward to prepare for ECT treatment. Hope to start early next week. 04/02: Laying in bed. keeping to self. Patient continues to report feeling depressed; pt stated, I feel about the same. I spoke with the other provider and agreed to do ECT . He reports sleeping well. denies SI/HI/VH/AH. Encouraged to attend groups and shower. Continue current tx plan. 04/03: no changes- just started wellbutrin 04/04: no changes 04/05/25: report anxiety a 2-310 but still 03/21 for depression. No change since started Wellbutrin. He agrees to get Wellbutrin up to 450mg daily for depression. Isolative in room, staring up to the ceiling. Discuss with patient of option to start on Intuniv for severe depression. Patient declines it at this current time but agree to see Welbutrin increased would be helpful. He agrees with ECT. Encourage groups, he says he was at art group out to dinning area but there are too much so he went back to his room. Report not many groups offered over the weekends. 04/06/25: Patient slept for 6 hours, have a sleep study done last night. Reported that he did not sleep well. Appetite is okay. Mood is depressed 03/21, denies anxiety today. Denies suicidal thoughts, but reports he has passive SI yesterday intrusive, just do not Wanna live anymore . Denies hallucinations. Address with patient of why he having bowel movement in the shower. He said it is just one episode. Reports he feel constipated. Agree with Colace. He also inform regarding the ECT which was approved by the insurance. He compliant with medication, however reports he has not feeling any difference in terms of depression at since started on Wellbutrin. Encourage groups attendance. Observe him later on during the day reading at a table in dining area. Colace 100mg BID for constipation. ECT consult placed: Patient may be seen by tomorrow by Dr. Ward. Procedure done preparing for the ECT: Head CT scan negative, EKG normal sinus rhythm, Incomplete right bundle branch block. Borderline ECG_ no change when compare to previous EKG. Unremarkable CBC with diff. 04/07/25: Per hospitalist note: ECT risk stratification Patient without previous problems with anesthesia, has previously undergone ECT RCRI 0 points, no further cardiac workup or treatment indicated at this time EKG showed QT interval WNL, no evidence of ischemic changes Based on stated PMH, HPI, and physical exam, there are no apparent medical contraindications to the planned procedure. Patient is complaining of pelvic discomfort and constipation. We will add therapy with Senokot, MiraLax and obtain urinalysis to assess for urinary tract infection. Continue treatment with atorvastatin and aspirin for history of stroke and hyperlipidemia. 04/07/25: Patient compliant with medication, reports due to the pain abdominal, he could not sleep well last night. Continued to reports depressions 8/10, anxiety 4/10 today related to the pain. Denies suicidal thoughts or voices, isolated. Shower yesterday. Review with patient test need to be done prior to having ECT. Patient met with Dr. Ward and hospitalist for ECT clearance. Due to the pain, constipated, more laxative ordered today. Also UA other by hospitalist to rule out any infection. He is flat, low energy, low motivation, withdrawal, in room mostly, but come out to other rooms to talk to the providers 04/08/25: Patient slept for 8 hours, compliant with medications, denies side effect. Met with him in his room, reported that he slept better last night, having good bowel movement, denies diarrhea is. Informed him regarding the labs work/and UA that was negative to rule out UTI. Denies pain. Explained to patient regarding pre ECT procedures/test to prepare for the day that he going to start. We will start ECT on Saturday. Per Dr. Ward, we will taper down on Latuda, start him on Modafinil low dose to help with severe depression. Continued to reports moderate to severe depression. Denies suicidal thoughts or hallucinations. 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 He denied any significant or excessive drug exposure. I do not find any focal lesion, acute or chronic, suggestive of stroke. There was no contraindication to treatment with ECT. Otherwise treatment of this condition is supportive, symptomatic and conservative Taper down on Latuda from 120 down to 100 mg daily at 17:00 for mood. Start on Modefinil 100ng daily for severe depression, low energy, poor concentration, poor motivation. ECT will be scheduled next week on Saturday. We will received treatment for Saturday/Saturday and Saturday. 04/09/25: Patient denies pain, normal bowel movement, slept well and compliant with medications. Denies side effects. Denies suicidal thoughts or hallucinations but reports mild on anxiety and moderate to severe depression. Patient appeared to be disheveled. Encourage patient to be out of bed in attended to groups included OT groups which observe he is visible in day room after the conversation. The OT will do the [place] for pre ECT next week on Saturday prior the ECT. He started modafinil 50 mg this morning. Indication and side effects explained to patient. Patient is receptive with the plan. Correction: Modefinill 50mg daily. MOCA scheduled next week prior to ECT. 04/10:Laying in bed most of morning. Patient continues to report feeling depressed. He reports looking forward to ECT; pt stated, I think it will be a positive step to get ECT . denies SI/HI/VH/AH. Encouraged to get out of bed. Continue tx plan 04/11: Per nursing, pt did not get out of bed yesterday. Observed laying in bed this morning; encouraged to attend groups and shower. Patient continues to report feeling depressed. denies SI/HI/VH/AH. Encouraged to get out of bed. Continue tx plan. 04/12: continue current tx plan Patient educated on: diagnosis, medication risk/benefits and therapeutic strategies Reason for continued inpatient stay Substantial Risk for: med/psych decompensation Time Spent With Patient Time: Total time managing care of this patient today _15___ minutes.
[2025-04-12 20:00] VITALS: BP 122/64; PULSE 74; RESP 14; TEMP 37.1; O2SAT 97
[2025-04-13 07:39] VITALS: BP 122/70; PULSE 69; RESP 16; TEMP 36.7; O2SAT 100
[2025-04-13] MEDS: buPROPion HCl XL 150 MG TAB.ER.24H 450 MG PO (08:27)
[2025-04-13] MEDS: Aspirin Enteric Coated 81 MG TABLET.DR PO (08:27)
[2025-04-13] MEDS: Milk of Magnesia 30 ML ORAL.SUSP PO (08:27)
--- NOTE | 2025-04-13 10:37 | P.CONAN_ITS ---
Documented by User: Bailey Goel NP 04/13/25 10:39 HPI - Anesthesia Eval Consult details Narrative: 49 yr old male for ECT H/O CVA: seen by Dr. Browning after abnormal head CT, neuro consult note states I do not find any focal lesion, acute or chronic, suggestive of stroke. There was no contraindication to treatment with ECT . PMFSH Active Problems Active Problems: All Active Problems (Updated 04/08/25 @ 17:29 by Drew Ward MD) CVA (cerebral vascular accident) (Acute) Abnormal head CT (Acute) JUVENTINO (acute kidney injury) (Acute) Depression (Acute) Bipolar disorder (Acute) H/O gastric sleeve (Acute) Past Medical History Medical History Obesity LUIS (obstructive sleep apnea) HLD (hyperlipidemia) HTN (hypertension) CVA (cerebral vascular accident) Functional capacity: independent ambulation Social History Social History Household Members: Other Household Members Other:: transitional housing Housing: Other Do you presently have visiting nurse or other home services: No Patient Tobacco Use Status: Never used Tobacco Second Hand Smoke Exposure: Yes Currently Displaying Signs/Symptoms of Drug Intoxication Withdrawal: No Have you been hit, kicked, punched, or otherwise hurt by someone within the past year? If so, by whom?: No Do you feel safe in your current relationship?: No Current Relationship Is there a partner from a previous relationship who is making you feel unsafe now?: No Are you made to feel afraid or neglected: No Advance Directives: No Advance Directives Information Provided: No Do you have thoughts of harming others: None Do you have a plan to hurt others: No Plan Recently lost weight without trying: No Eating poorly because of decreased appetite: No Nutrition Risks: No Nutritional Risk Poor oral hygiene: Yes (very dry scalp) service: No Sexual orientation: Straight/Heterosexual Meds Allergies Allergy/AdvReac Type Severity Reaction Status Date / Time pumpkin Allergy Unknown Unknown Verified 12/24/24 12:26 Active Medications: Current Medications Acetaminophen (Acetaminophen 325 Mg Tablet) 650 mg PO Q6H PRN PRN Reason: Headache/Pain, Scale 1-10 Al Hydroxide/Mg Hydroxide (Magnesium Hydrox/Alum Hydrox 30 Ml Oral.Susp) 30 ml PO Q6H PRN PRN Reason: Heartburn/Nausea Aspirin (Aspirin Enteric Coated 81 Mg Tablet.Dr) 81 mg PO DAILY [facility] Last Admin: 04/13/25 08:27 Dose: 81 mg Atorvastatin Calcium (Atorvastatin Calcium 20 Mg Tablet) 20 mg PO BEDTIME [facility] Last Admin: 04/12/25 20:08 Dose: 20 mg Bisacodyl (Bisacodyl 10 Mg Supp.Rect) 10 mg ME BEDTIME PRN PRN Reason: Constipation Bupropion HCl (Bupropion Hcl Xl 150 Mg Tab.Er.24h) 450 mg PO DAILY [facility] Last Admin: 04/13/25 08:27 Dose: 450 mg Docusate Sodium (Docusate Sodium 100 Mg Capsule) 100 mg PO BID [facility] Last Admin: 04/13/25 08:28 Dose: 100 mg Hydroxyzine HCl (Hydroxyzine Hcl 25 Mg Tablet) 25 mg PO Q6H PRN PRN Reason: mild anxiety Last Admin: 03/26/25 23:24 Dose: 25 mg Lurasidone HCl (Lurasidone Hcl 80 Mg Tablet) 80 mg PO DAILY@1700 [facility] Last Admin: 04/12/25 18:01 Dose: 80 mg Lurasidone HCl (Lurasidone Hcl 20 Mg Tablet) 20 mg PO DAILY@1700 [facility] Last Admin: 04/12/25 18:01 Dose: 20 mg Magnesium Hydroxide (Milk Of Magnesia 30 Ml Oral.Susp) 30 ml PO DAILY PRN PRN Reason: Constipation Last Admin: 04/13/25 08:27 Dose: 30 ml Modafinil (Modafinil 100 Mg Tablet) 100 mg PO DAILY [facility] Nicotine (Nicotine 21 Mg Patch.Td24) 21 mg TRANSDERMA DAILY PRN PRN Reason: nicotine craving Nicotine Polacrilex (Nicotine Polacrilex 2 Mg Gum) 2 mg BUCCAL Q2H PRN PRN Reason: Nicotine Cravings Olanzapine (Olanzapine 5 Mg Tablet) 5 mg PO BID PRN PRN Reason: agitation Polyethylene Glycol (Polyethylene Glycol 3350 17 Gm Powd.Pack) 17 gm PO DAILY [facility] Last Admin: 04/13/25 08:27 Dose: 17 gm Senna (Sennosides 8.6 Mg Tablet) 17.2 mg PO BEDTIME [facility] Last Admin: 04/12/25 20:08 Dose: 17.2 mg Trazodone HCl (Trazodone Hcl 50 Mg Tablet) 50 mg PO BEDTIME MRX1 PRN PRN Reason: Insomnia Last Admin: 04/05/25 23:14 Dose: 50 mg Exam Height,Weight and Vital Signs: Height 5 ft 9 in Weight 96.388 kg Last Vital Signs Temp 98.1 F 04/13/25 07:39 Pulse 69 04/13/25 07:39 Resp 16 04/13/25 07:39 BP 122/70 04/13/25 07:39 Pulse Ox 100 04/13/25 07:39 O2 Del Method Room Air 04/13/25 07:39 Pertinent Lab Results Pertinent Lab Results: Laboratory Tests 03/26/25 03/26/25 03/27/25 14:42 15:45 08:31 WBC 9.9 RBC 4.34 L Hgb 12.8 L Hct 38.3 L MCV 88.2 MCH 29.5 MCHC 33.4 RDW 14.6 Plt Count 191 MPV 10.6 Immature Gran % (Auto) 0.2 Neut % (Auto) 61.2 Lymph % (Auto) 28.9 [place] % (Auto) 8.8 Eos % (Auto) 0.7 Baso % (Auto) 0.2 Lymph # (Auto) 2.9 [place] # (Auto) 0.9 Eos # (Auto) 0.1 Baso # (Auto) 0.0 Abs Immat Gran (auto) 0.02 Absolute Neuts (auto) 6.1 Absolute Nucleated RBC 0.000 Nucleated RBC % (auto) 0.0 Sodium 138 143 Potassium 4.4 4.2 Chloride 103 106 Carbon Dioxide 26 23 Anion Gap 13 18 BUN 18 H 16 Creatinine 1.55 H 1.19 Estim Creat Clear Calc 65.6 86.0 Estimated GFR 48 > 60 Random Glucose 93 78 Estimat Average Glucose 91 Hemoglobin A1c % 4.8 Calcium 9.0 9.0 Total Bilirubin 1.1 H AST 28 ALT 11 Alkaline Phosphatase 62 B-Natriuretic Peptide Total Protein 6.0 L Albumin 3.7 Triglycerides 66 Cholesterol 153 LDL Cholesterol, Calc 92 HDL Cholesterol 48 TSH 3.31 Free T4 1.09 Urine Color Yellow Urine Appearance Cloudy Urine pH 5.5 Ur Specific [place] 1.015 Urine Protein 30 (1+) H Urine Glucose (UA) Negative Urine Ketones Negative Urine Blood Negative Urine Nitrite Negative Ur Leukocyte Esterase Trace H Urine RBC 0-2 Urine WBC 0-5 Ur Squamous Epith Cells 6-10 Urine Bacteria None Seen Hyaline Casts >20 Salicylates < 5.0 L Urine Opiates Screen Not Detected Ur Buprenorphine Scrn Not Detected Ur Oxycodone Screen Not Detected Urine Methadone Screen Not Detected Urine Fentanyl Screen Not Detected Acetaminophen < 3 Ur Barbiturates Screen Not Detected Ur Phencyclidine Scrn Not Detected Ur Amphetamines Screen Not Detected U Benzodiazepines Scrn Not Detected Urine Cocaine Screen Not Detected U Marijuana (THC) Screen Not Detected Ethyl Alcohol < 10 Influenza Type A (PCR) NEGATIVE Influenza Type B (PCR) NEGATIVE RSV RNA Qual (PCR) NEGATIVE SARS-CoV-2 RNA (RT-PCR) NEGATIVE 04/06/25 04/07/25 04/07/25 14:28 08:07 21:30 WBC 9.1 RBC 4.59 L Hgb 13.4 L Hct 40.9 L MCV 89.1 MCH 29.2 MCHC 32.8 RDW 14.0 Plt Count 303 D MPV 10.6 Immature Gran % (Auto) 0.4 Neut % (Auto) 58.1 Lymph % (Auto) 32.8 [place] % (Auto) 6.4 Eos % (Auto) 2.1 Baso % (Auto) 0.2 Lymph # (Auto) 3.0 [place] # (Auto) 0.6 Eos # (Auto) 0.2 Baso # (Auto) 0.0 Abs Immat Gran (auto) 0.04 H Absolute Neuts (auto) 5.3 Absolute Nucleated RBC 0.000 Nucleated RBC % (auto) 0.0 Sodium 143 Potassium 4.6 Chloride 105 Carbon Dioxide 28 Anion Gap 15 BUN 17 H Creatinine 1.35 Estim Creat Clear Calc 75.5 Estimated GFR 56 Random Glucose 96 Estimat Average Glucose Hemoglobin A1c % Calcium 9.4 Total Bilirubin 0.6 AST 26 ALT 23 Alkaline Phosphatase 66 B-Natriuretic Peptide Total Protein 6.4 L Albumin 3.9 Triglycerides Cholesterol LDL Cholesterol, Calc HDL Cholesterol TSH 2.42 Free T4 Urine Color Yellow Urine Appearance Clear Urine pH 6.0 Ur Specific [place] 1.010 Urine Protein Negative Urine Glucose (UA) Negative Urine Ketones Negative Urine Blood Negative Urine Nitrite Negative Ur Leukocyte Esterase Negative Urine RBC Urine WBC Ur Squamous Epith Cells Urine Bacteria Hyaline Casts Salicylates Urine Opiates Screen Ur Buprenorphine Scrn Ur Oxycodone Screen Urine Methadone Screen Urine Fentanyl Screen Acetaminophen Ur Barbiturates Screen Ur Phencyclidine Scrn Ur Amphetamines Screen U Benzodiazepines Scrn Urine Cocaine Screen U Marijuana (THC) Screen Ethyl Alcohol Influenza Type A (PCR) Influenza Type B (PCR) RSV RNA Qual (PCR) SARS-CoV-2 RNA (RT-PCR) 04/10/25 09:18 WBC RBC Hgb Hct MCV MCH MCHC RDW Plt Count MPV Immature Gran % (Auto) Neut % (Auto) Lymph % (Auto) [place] % (Auto) Eos % (Auto) Baso % (Auto) Lymph # (Auto) [place] # (Auto) Eos # (Auto) Baso # (Auto) Abs Immat Gran (auto) Absolute Neuts (auto) Absolute Nucleated RBC Nucleated RBC % (auto) Sodium Potassium Chloride Carbon Dioxide Anion Gap BUN Creatinine Estim Creat Clear Calc Estimated GFR Random Glucose Estimat Average Glucose Hemoglobin A1c % Calcium Total Bilirubin AST ALT Alkaline Phosphatase B-Natriuretic Peptide < 10 Total Protein Albumin Triglycerides Cholesterol LDL Cholesterol, Calc HDL Cholesterol TSH Free T4 Urine Color Urine Appearance Urine pH Ur Specific [place] Urine Protein Urine Glucose (UA) Urine Ketones Urine Blood Urine Nitrite Ur Leukocyte Esterase Urine RBC Urine WBC Ur Squamous Epith Cells Urine Bacteria Hyaline Casts Salicylates Urine Opiates Screen Ur Buprenorphine Scrn Ur Oxycodone Screen Urine Methadone Screen Urine Fentanyl Screen Acetaminophen Ur Barbiturates Screen Ur Phencyclidine Scrn Ur Amphetamines Screen U Benzodiazepines Scrn Urine Cocaine Screen U Marijuana (THC) Screen Ethyl Alcohol Influenza Type A (PCR) Influenza Type B (PCR) RSV RNA Qual (PCR) SARS-CoV-2 RNA (RT-PCR) Narrative Narrative: EKG 03/2025 Vent. Rate : 68 BPM Atrial Rate : 68 BPM P-R Int : 152 ms QRS Dur : 100 ms QT Int : 418 ms P-R-T Axes : 51 13 42 degrees QTcB Int : 444 ms Normal sinus rhythm Incomplete right bundle branch block Borderline ECG When compared with ECG of 26-Mar-2025 14:47, No significant change was found Documented by User: Ignacio Cifuentes MD 04/14/25 12:43 HPI - Anesthesia Eval Anesthesia Pre-Procedure Meds If yes to any meds - educate patient: Pt education - increased risk of aspiration and/or euvolemic DKA (patient stopped trulicity 1 year ago) [facility] Past Medical History Medical History Obesity LUIS (obstructive sleep apnea) HLD (hyperlipidemia) HTN (hypertension) CVA (cerebral vascular accident) Family History Family history of problems with anesthesia: No Surgical History History of Problems with Anesthesia: No Social History Social History Household Members: Other Household Members Other:: transitional housing Housing: Other Do you presently have visiting nurse or other home services: No Patient Tobacco Use Status: Never used Tobacco Second Hand Smoke Exposure: Yes Currently Displaying Signs/Symptoms of Drug Intoxication Withdrawal: No Have you been hit, kicked, punched, or otherwise hurt by someone within the past year? If so, by whom?: No Do you feel safe in your current relationship?: No Current Relationship Is there a partner from a previous relationship who is making you feel unsafe now?: No Are you made to feel afraid or neglected: No Advance Directives: No Advance Directives Information Provided: No Do you have thoughts of harming others: None Do you have a plan to hurt others: No Plan Recently lost weight without trying: No Eating poorly because of decreased appetite: No Nutrition Risks: No Nutritional Risk Poor oral hygiene: Yes (very dry scalp) service: No Sexual orientation: Straight/Heterosexual Meds Allergies Allergy/AdvReac Type Severity Reaction Status Date / Time pumpkin Allergy Unknown Unknown Verified 12/24/24 12:26 Exam Exam Date and Time: 04/14/2025 Airway TM Dist: >3cm Neck ROM: Full Loose/Missing/Broken Teeth: Yes (bridge left at home) Heart: rrr Lungs: cta Other: normal Assessment and Plan Assessment Anesthesia Assessment: Anesthesia Plan Discussed Final Anesthetic Review Family History of Problems with Anesthesia: No History of Problems with Anesthesia: No NPO: Yes ASA Class: III Final Preanesthetic Review: No Changes in Pt Med Stat, Meds/Allgs Chart Reviewed, Consent Obtained/Reviewed and Anes Risks/Benef Reviewed Patient Risk: Low Procedure Risk: Low Anesthetic Plan Anesthetic Plan: GA Disposition: Standard PACU
--- NOTE | 2025-04-13 15:18 | P.PNPSI_ITS ---
Subjective Subjective Date of Service: 04/13/25 Reason For Visit: SI Interim History: PMR, flat. depressed. awaiting ECT. no requests or complaints. per staff, depressed. sitting alone. hopes ECT will be helpful. slept 8 hours. starting ECT tomorrow. Mental Status Exam Mental Status Exam Narrative: Appearance: Casually dressed, unkempt, disheveled Behavior: Calm and cooperative, PMR Eye contact is appropriate Speech: Normal loudness. slowed, flattened prosody. Thought process logical and goal-directed Thought content: On treatment. Mood: depressed Affect: constricted, hypo-intense SI: none - MRE a couple days ago HI: none expressed VH/AH: none expressed Delusions: None expressed Insight/judgment: impaired Diagnostics Vital Signs (24Hr): Vital Signs - 24 hr 04/12/25 20:00 04/13/25 07:39 Temperature 98.7 F 98.1 F Pulse Rate 74 69 Respiratory Rate 14 16 Blood Pressure 122/64 122/70 Pulse Oximetry 97 100 Oxygen Delivery Method Room Air Room Air BMI result Body Mass Index 31.4 Labs 04/06/25 14:28 04/06/25 14:28 Imaging Radiology Impressions: ITS Impressions Head CT 04/06/25 13:54 IMPRESSION: No acute intracranial hemorrhage. Bifrontal bitemporal lobes atrophy. Electronically signed by: Roque Guillen MD 04/06/2025 02:15 PM EDT Medications Medications Current Medications Acetaminophen (Acetaminophen 325 Mg Tablet) 650 mg PO Q6H PRN PRN Reason: Headache/Pain, Scale 1-10 Al Hydroxide/Mg Hydroxide (Magnesium Hydrox/Alum Hydrox 30 Ml Oral.Susp) 30 ml PO Q6H PRN PRN Reason: Heartburn/Nausea Aspirin (Aspirin Enteric Coated 81 Mg Tablet.) 81 mg PO DAILY [facility] Last Admin: 04/13/25 08:27 Dose: 81 mg Atorvastatin Calcium (Atorvastatin Calcium 20 Mg Tablet) 20 mg PO BEDTIME [facility] Last Admin: 04/12/25 20:08 Dose: 20 mg Bisacodyl (Bisacodyl 10 Mg Supp.Rect) 10 mg RI BEDTIME PRN PRN Reason: Constipation Bupropion HCl (Bupropion Hcl Xl 150 Mg Tab.Er.24h) 450 mg PO DAILY [facility] Last Admin: 09/02/25 08:27 Dose: 450 mg Docusate Sodium (Docusate Sodium 100 Mg Capsule) 100 mg PO BID [facility] Last Admin: 04/13/25 08:28 Dose: 100 mg Hydroxyzine HCl (Hydroxyzine Hcl 25 Mg Tablet) 25 mg PO Q6H PRN PRN Reason: mild anxiety Last Admin: 03/26/25 23:24 Dose: 25 mg Lurasidone HCl (Lurasidone Hcl 80 Mg Tablet) 80 mg PO DAILY@1700 [facility] Last Admin: 04/12/25 18:01 Dose: 80 mg Lurasidone HCl (Lurasidone Hcl 20 Mg Tablet) 20 mg PO DAILY@1700 [facility] Last Admin: 04/12/25 18:01 Dose: 20 mg Magnesium Hydroxide (Milk Of Magnesia 30 Ml Oral.Susp) 30 ml PO DAILY PRN PRN Reason: Constipation Last Admin: 04/13/25 08:27 Dose: 30 ml Modafinil (Modafinil 100 Mg Tablet) 100 mg PO DAILY [facility] Nicotine (Nicotine 21 Mg Patch.Td24) 21 mg TRANSDERMA DAILY PRN PRN Reason: nicotine craving Nicotine Polacrilex (Nicotine Polacrilex 2 Mg Gum) 2 mg BUCCAL Q2H PRN PRN Reason: Nicotine Cravings Olanzapine (Olanzapine 5 Mg Tablet) 5 mg PO BID PRN PRN Reason: agitation Polyethylene Glycol (Polyethylene Glycol 3350 17 Gm Powd.Pack) 17 gm PO DAILY [facility] Last Admin: 04/13/25 08:27 Dose: 17 gm Senna (Sennosides 8.6 Mg Tablet) 17.2 mg PO BEDTIME [facility] Last Admin: 04/12/25 20:08 Dose: 17.2 mg Trazodone HCl (Trazodone Hcl 50 Mg Tablet) 50 mg PO BEDTIME MRX1 PRN PRN Reason: Insomnia Last Admin: 04/05/25 23:14 Dose: 50 mg Allergies Allergies Allergy/AdvReac Type Severity Reaction Status Date / Time pumpkin Allergy Unknown Unknown Verified 12/24/24 12:26 Assessment & Plan Assessment & Plan (1) Bipolar disorder: Status: Acute Code(s): F31.9 - Bipolar disorder, unspecified (2) JUVENTINO (acute kidney injury): Status: Acute Code(s): N17.9 - Acute kidney failure, unspecified (3) CVA (cerebral vascular accident): Status: Acute Code(s): I63.9 - Cerebral infarction, unspecified (4) Abnormal head CT: Status: Acute Code(s): R93.0 - Abnormal findings on diagnostic imaging of skull and head, not elsewhere classified Plan 03/27: feels latuda 120 has been helpful. however, remains depressed. add wellbutrin XL 150 daily for depression, plan to increase to 300 mg daily in 3 days. may also consider ECT due to lack of improvement despite numerous recent hospitalizations + lethality of suicide attempts + recent self-abnegating behaviors. 03/28: no change in presentation, no requests or complaints. started wellbutrin 150 today. continue current mgmt 03/29/25: Slept well, no issues with appetite. Observed out on the unit, attended groups, engaging. Reports depression and 03/21, denies anxiety. Constricted affect, congruent with mood. Denies safety concerns. Compliant with medications. Denies side effects from Wellbutrin. Continue to encourage groups. 03/30/25: Patient slept for 6 hours, was medication compliant. He attended 2 groups yesterday, however today he is more isolated, in bed a lot more time, declines a couple groups. Reports depressed but no anxiety, flat affect, depressed, but cooperative during one-to-one assessment. He is receptive with the plan of Wellbutrin increased up to 300 mg for depression. Reports passive SI, denies plan or intention. Denies other safety concerns. Encourage patient to go to groups and shower daily. Increase Wellbutrin XL to 300 mg daily for depression. He reported that he has bipolar type II. 03/31: Laying in bed. keeping to self. showered. patient reports feeling depressed ; pt stated, I'm not having a good day. I don't want to do anything . flat affect. denies SI/HI/VH/AH. Per nursing, slept 8 hours. encouraged to attend groups. continue current tx plan. 04/01/25: Patient slept for 8 hours, poor meal intake yesterday but was medication compliant. Denies side effects. When asked about if he has poor appetite as he ate only 50 of breakfast, and 25 for lunch and not eating dinner, he said because I did not do the menu, so I got what I do not like . He shower yesterday, continued to reports depression 03/21. Denied anxiety. He does not feel any difference from Wellbutrin 150 when and when it was increased up to 300 mg. Denies SI/SIB/HI/AVH, isolative self, he plans to attend groups today. This provider spoke with patient in length regarding medication trials. Per his report, has been trying so many antidepressants they just do not work, and continued to be depressed. Some of them are Zoloft, Paxil, Effexor, Celexa, Prozac, Cymbalta, Lexapro. He also having history of taking Zyprexa more than 20 years ago due to hearing voices. Then the voices was calm. He never has a take it again after. History of Abilify but not sure if it is working as he can not recall. Regarding ADLs: He said that [facility] day, but he is not showering for many days despite the fact that staff asked him to do so I just do not care about being clean . Reports very low energy, low motivation, been increased suicidal thoughts and depression. He used to love music and reading but not interested in doing anything like that anymore. Reported that he had gastric sleeve surgery back in August 2023 which he lost 230 lb. He weight 447 lb prior to the surgery. He identified that after the surgery he has been more depressed slowly over months. There was a time that he wanted to starve myself so I can when asked is that you that he has stopped eating at home. He also identified that he feel more depressed after surgery as he is not able to over eating like he did before. Family mental health illnesses: Reports that who both of his parents was depressed. Mom 11 years ago. 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 History of ECTs: Reports he had history of ECTs in 2010 when he was at in [facility].He felt worse after the treatment everything seems like a dream . He clarified that immediately after the treatment he feel that way which could be a side effects of ECT but not permanent. Educate patient on possible side effects ECTs. Patient denies having seizure during ECTs treatment, no seizure history no cardiac conditions/disease history. Reports history of hypertension, but not anymore. He also has been admitted to different hospitals for psychiatric admissions in the past couple of months. Reports staying at [facility] in December for a month. New hospital in the area names [facility]) in October for another month. Per email from his OP team- clinical director at [facility], they also express concerns of patient's conditions. It is noted that their concerns are very consistent with patient' report here on the unit. He also has been admitted to different hospitals for psychiatric admissions in the past couple of months. Reports staying at [facility] in December for a month. [facility] in the area names [facility]) in October for another month. Per email from his OP team- clinical director at [facility], they also express concerns of patient's conditions. It is noted that their concerns are very consistent with patient' report here on the unit. Alfredito has been in and out on inpatient level of care since October of this year, I believe every month, for a majority of the time. He was recently discharged from [facility] after a 1 month stay and within two hours of returning home wanted to return to the hospital, saying he was unwell, and within one day was sectioned by [facility], which is how he ended up with you now. He has been coming home and intentionally starving himself, even not eating for up to 1 week. We have known Alfredito for years and since this started in October, we have seen no significant improvement in his mental health or a return to baseline. In fact, we are observing his case as consistent with failure to thrive. We have been asking for him to be inpatient at [facility] or with you at [facility] for some time in order for him to be potentially considered for ECT level of treatment, if deemed appropriate. Multiple medication trials failture to target depressive symptoms. He will be a good candidate to get trial ECT treatment in combination with current medication regimens. Patient also agrees with the plan. We would start the treatment as soon as possible. Will discuss the case with in house psychiatrist-Dr. Ward to prepare for ECT treatment. Hope to start early next week. 04/02: Laying in bed. keeping to self. Patient continues to report feeling depressed; pt stated, I feel about the same. I spoke with the other provider and agreed to do ECT . He reports sleeping well. denies SI/HI/VH/AH. Encouraged to attend groups and shower. Continue current tx plan. 04/03: no changes- just started wellbutrin 04/04: no changes 04/05/25: report anxiety a 2-3 but still 03/21 for depression. No change since started Wellbutrin. He agrees to get Wellbutrin up to 450mg daily for depression. Isolative in room, staring up to the ceiling. Discuss with patient of option to start on Intuniv for severe depression. Patient declines it at this current time but agree to see Welbutrin increased would be helpful. He agrees with ECT. Encourage groups, he says he was at art group out to dinning area but there are too much so he went back to his room. Report not many groups offered over the weekends. 04/06/25: Patient slept for 6 hours, have a sleep study done last night. Reported that he did not sleep well. Appetite is okay. Mood is depressed 03/21, denies anxiety today. Denies suicidal thoughts, but reports he has passive SI yesterday intrusive, just do not Wanna live anymore . Denies hallucinations. Address with patient of why he having bowel movement in the shower. He said it is just one episode. Reports he feel constipated. Agree with Colace. He also inform regarding the ECT which was approved by the insurance. He compliant with medication, however reports he has not feeling any difference in terms of depression at since started on Wellbutrin. Encourage groups attendance. Observe him later on during the day reading at a table in dining area. Colace 100mg BID for constipation. ECT consult placed: Patient may be seen by tomorrow by Dr. Ward. Procedure done preparing for the ECT: Head CT scan negative, EKG normal sinus rhythm, Incomplete right bundle branch block. Borderline ECG_ no change when compare to previous EKG. Unremarkable CBC with diff. 04/07/25: Per hospitalist note: ECT risk stratification Patient without previous problems with anesthesia, has previously undergone ECT RCRI 0 points, no further cardiac workup or treatment indicated at this time EKG showed QT interval WNL, no evidence of ischemic changes Based on stated PMH, HPI, and physical exam, there are no apparent medical contraindications to the planned procedure. Patient is complaining of pelvic discomfort and constipation. We will add therapy with Senokot, MiraLax and obtain urinalysis to assess for urinary tract infection. Continue treatment with atorvastatin and aspirin for history of stroke and hyperlipidemia. 04/07/25: Patient compliant with medication, reports due to the pain abdominal, he could not sleep well last night. Continued to reports depressions 8/10, anxiety 4/10 today related to the pain. Denies suicidal thoughts or voices, isolated. Shower yesterday. Review with patient test need to be done prior to having ECT. Patient met with Dr. Ward and hospitalist for ECT clearance. Due to the pain, constipated, more laxative ordered today. Also UA other by hospitalist to rule out any infection. He is flat, low energy, low motivation, withdrawal, in room mostly, but come out to other rooms to talk to the providers 04/08/25: Patient slept for 8 hours, compliant with medications, denies side effect. Met with him in his room, reported that he slept better last night, having good bowel movement, denies diarrhea is. Informed him regarding the labs work/and UA that was negative to rule out UTI. Denies pain. Explained to patient regarding pre ECT procedures/test to prepare for the day that he going to start. We will start ECT on Saturday. Per Dr. Ward, we will taper down on Latuda, start him on Modafinil low dose to help with severe depression. Continued to reports moderate to severe depression. Denies suicidal thoughts or hallucinations. 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 He denied any significant or excessive drug exposure. I do not find any focal lesion, acute or chronic, suggestive of stroke. There was no contraindication to treatment with ECT. Otherwise treatment of this condition is supportive, symptomatic and conservative Taper down on Latuda from 120 down to 100 mg daily at 17:00 for mood. Start on Modefinil 100ng daily for severe depression, low energy, poor concentration, poor motivation. ECT will be scheduled next week on Saturday. We will received treatment for Saturday/Saturday and Saturday. 04/09/25: Patient denies pain, normal bowel movement, slept well and compliant with medications. Denies side effects. Denies suicidal thoughts or hallucinations but reports mild on anxiety and moderate to severe depression. Patient appeared to be disheveled. Encourage patient to be out of bed in attended to groups included OT groups which observe he is visible in day room after the conversation. The OT will do the [place] for pre ECT next week on Saturday prior the ECT. He started modafinil 50 mg this morning. Indication and side effects explained to patient. Patient is receptive with the plan. Correction: Modefinill 50mg daily. MOCA scheduled next week prior to ECT. 04/10:Laying in bed most of morning. Patient continues to report feeling depressed. He reports looking forward to ECT; pt stated, I think it will be a positive step to get ECT . denies SI/HI/VH/AH. Encouraged to get out of bed. Continue tx plan 04/11: Per nursing, pt did not get out of bed yesterday. Observed laying in bed this morning; encouraged to attend groups and shower. Patient continues to report feeling depressed. denies SI/HI/VH/AH. Encouraged to get out of bed. Continue tx plan. 04/12: continue current tx plan 04/13: stably depressed. PMR. start ECT tomorrow, otherwise continue current mgmt. NPO past MN. Reason for continued inpatient stay Substantial Risk for: harm to self and inability to function Time Spent With Patient Time: Total time managing care of this patient today __25__ minutes.
[2025-04-13 20:00] VITALS: BP 117/67; PULSE 79; RESP 14; TEMP 37.8; O2SAT 96
[2025-04-14] VITALS (11 sets, daily range): BP systolic 119–148; BP diastolic 63–101; PULSE 68–103; RESP 14–24; TEMP 36.1–36.9; O2SAT 91–100
[2025-04-14] MEDS: Lactated Ringers 500 ML 20 ML IVCONT (12:51)
--- NOTE | 2025-04-14 12:58 | MHC.SHP ---
Pre-Procedural Eval Section A - 24 Hr Update-Section A only Date of Service: 04/14/25 The patient is an INPATIENT: Yes Changes since office visit: No Cold of Flu in the past 2 weeks, No New Medical Problems, No Changes in Medication and No Patient answered all questions Section B - Complete if H&P > 30 days Chief Complaint: SI Details of Present Illness: remains depressed with psychomotor retardation Allergies: Allergies Allergy/AdvReac Type Severity Reaction Status Date / Time pumpkin Allergy Unknown Unknown Verified 12/24/24 12:26 Review of Systems Sugical H&P ROS: Negative: Constitution, Cardiovascular, Respiratory, Gastrointestinal and Genitourinary Plan Diagnosis/Plan: Unchanged I have reviewed the history and physical and performed a pertinent physical examination on my patient. No changes have occurred unless specified. Time Spent With Patient Time: Total time managing care of this patient today ____ minutes.
--- NOTE | 2025-04-14 12:59 | HO.ECTPROC ---
ECT Procedure Note Diagnosis/Treatment Date of Service: 04/14/25 Diagnosis: Bipolar disorder Current Treatment Number: 1 Treatment: Series Interval Clinical Notes: remains depressed with significant psychomotor retardation Time: Total time managing care of this patient today ____ minutes. ECT Settings Device: THYMATRON DGx Electrode Placement: Right Unilateral Program/Pulse Width: 0.25 Energy Percent: 100 Seizure Duration By EEG (in seconds): 76 By Motor Observation (in seconds): 46 Medications Administration General Anesthetic: Etomidate (16) Muscle Relaxant: Succinylcholine (100) Ancillary Medications Analgesics: Torodol - Post ECT (30) Airway Management Airway Management: Bag Mask Ventilation Treatment Recommendations No Changes Recommended: No change Electrode Placement: Right Unilateral Program/Pulse Width: 0.25 Energy Percent: 100 Notes: Pt was hyperventilated prior to procedure and had a substantial seizure that spontaneously ended at 76 seconds (Propofol 30mg was given, however Seizure ended on it's own right as Propofol was being administered) Pt Tolerated Procedure w/o Issue: Yes
[2025-04-14] MEDS: buPROPion HCl XL 150 MG TAB.ER.24H 450 MG PO (14:59)
[2025-04-14] MEDS: Aspirin Enteric Coated 81 MG TABLET.DR PO (15:00)
--- NOTE | 2025-04-14 22:04 | HO.PSYCHPN ---
Subjective Subjective Date of Service: 04/14/25 Reason For Visit: SI Subjective Notes: Conditional Voluntary Healthcare Proxy: No Guardianship: No Medical Problems Affecting Mental Status: No Interim History: Medical record and nursing notes reviewed; case discussed during rounds with team/nursing staff, and met with patient for supportive therapy/psychoeducation, as well as medication management. Patient slept for 6 hours, was medication compliant. However, this morning due to the delay his 1st ECT treatment, he was not happy about the delay into the afternoon. He appeared to be frustrated, irritable, and not cooperative with this provider I do not want to talk to anyone . I am done talking . I do not care when asked his last bowel movement. Per nursing, patient denies suicidal thoughts, other safety concerns. Reports he has no bowel movement x4 days. Medication this morning was held until after the ECT. He also was given citrate magnesium x1. Pending effect. Medication Compliance: Yes Side effects from medications: No (no report. Not engage in coversation) Attending Groups: No Review of Systems Acute medical concerns: No Medical Review of Systems: unchanged Review of Systems Review of Systems No SOB. No breathing issues. Do not c/o N/V. No BM x4 days. Mental Status Exam Mental Status Exam Narrative: He is in bed, turn body toward the wall, not cooperative, he is irritable and frustrated d/t ECT was delayed until this afternoon which he has to be NPO for until after treatment. Per nursing assessment, no safety concerns. Report severe depression and mild on anxiety. Diagnostics Vital Signs (24Hr): Vital Signs - 24 hr 04/14/25 06:14 04/14/25 06:42 04/14/25 12:26 Temperature 97.5 F 97 F 97.3 F Pulse Rate 69 68 75 Respiratory Rate 14 16 15 Blood Pressure 126/82 123/83 134/85 Pulse Oximetry 97 99 100 Oxygen Delivery Method Room Air Room Air Oxygen Flow Rate 04/14/25 13:31 04/14/25 13:36 04/14/25 13:41 Temperature 97.1 F Pulse Rate 86 91 85 Respiratory Rate 24 H 17 17 Blood Pressure 133/71 148/101 H 128/72 Pulse Oximetry 94 91 L 91 L Oxygen Delivery Method Nasal Cannula with ETCO2 Nasal Cannula with ETCO2 Nasal Cannula with ETCO2 Oxygen Flow Rate 6 6 6 04/14/25 13:46 04/14/25 14:01 04/14/25 14:16 Temperature 98.3 F Pulse Rate 80 74 86 Respiratory Rate 20 21 H 20 Blood Pressure 124/63 136/64 140/87 H Pulse Oximetry 92 95 96 Oxygen Delivery Method Nasal Cannula with ETCO2 Room Air Room Air Oxygen Flow Rate 6 04/14/25 14:25 04/14/25 14:25 Temperature 98.4 F 98.4 F Pulse Rate 70 70 Respiratory Rate 16 16 Blood Pressure 119/77 119/77 Pulse Oximetry 96 96 Oxygen Delivery Method Room Air Oxygen Flow Rate BMI result Body Mass Index 31.4 Labs 04/06/25 14:28 04/06/25 14:28 Imaging Radiology Impressions: ITS Impressions Head CT 04/06/25 13:54 IMPRESSION: No acute intracranial hemorrhage. Bifrontal bitemporal lobes atrophy. Electronically signed by: Roque Guillen MD 04/06/2025 02:15 PM EDT RP Medications Medications Current Medications Acetaminophen (Acetaminophen 325 Mg Tablet) 650 mg PO Q6H PRN PRN Reason: Headache/Pain, Scale 1-10 Last Admin: 04/14/25 20:25 Dose: 650 mg Al Hydroxide/Mg Hydroxide (Magnesium Hydrox/Alum Hydrox 30 Ml Oral.Susp) 30 ml PO Q6H PRN PRN Reason: Heartburn/Nausea Aspirin (Aspirin Enteric Coated 81 Mg Tablet.) 81 mg PO DAILY [facility] Last Admin: 04/14/25 15:00 Dose: 81 mg Atorvastatin Calcium (Atorvastatin Calcium 20 Mg Tablet) 20 mg PO BEDTIME [facility] Last Admin: 04/14/25 20:25 Dose: 20 mg Bisacodyl (Bisacodyl 5 Mg Tablet.) 10 mg PO DAILY PRN PRN Reason: severe Constipation Bupropion HCl (Bupropion Hcl Xl 150 Mg Tab.Er.24h) 450 mg PO DAILY [facility] Last Admin: 04/14/25 14:59 Dose: 450 mg Docusate Sodium (Docusate Sodium 100 Mg Capsule) 100 mg PO BID [facility] Last Admin: 04/14/25 20:24 Dose: 100 mg Hydroxyzine HCl (Hydroxyzine Hcl 25 Mg Tablet) 25 mg PO Q6H PRN PRN Reason: mild anxiety Last Admin: 03/26/25 23:24 Dose: 25 mg Lurasidone HCl (Lurasidone Hcl 80 Mg Tablet) 80 mg PO DAILY@1700 [facility] Last Admin: 04/14/25 17:20 Dose: 80 mg Lurasidone HCl (Lurasidone Hcl 20 Mg Tablet) 20 mg PO DAILY@1700 [facility] Last Admin: 04/14/25 17:20 Dose: 20 mg Magnesium Hydroxide (Milk Of Magnesia 30 Ml Oral.Susp) 30 ml PO DAILY PRN PRN Reason: Constipation Last Admin: 04/13/25 08:27 Dose: 30 ml Modafinil (Modafinil 100 Mg Tablet) 100 mg PO DAILY [facility] Last Admin: 04/14/25 14:59 Dose: 100 mg Nicotine (Nicotine 21 Mg Patch.Td24) 21 mg TRANSDERMA DAILY PRN PRN Reason: nicotine craving Nicotine Polacrilex (Nicotine Polacrilex 2 Mg Gum) 2 mg BUCCAL Q2H PRN PRN Reason: Nicotine Cravings Olanzapine (Olanzapine 5 Mg Tablet) 5 mg PO BID PRN PRN Reason: agitation Polyethylene Glycol (Polyethylene Glycol 3350 17 Gm Powd.Pack) 17 gm PO DAILY [facility] Last Admin: 04/14/25 15:00 Dose: 17 gm Senna (Sennosides 8.6 Mg Tablet) 17.2 mg PO BEDTIME [facility] Last Admin: 04/14/25 20:24 Dose: 17.2 mg Trazodone HCl (Trazodone Hcl 50 Mg Tablet) 50 mg PO BEDTIME MRX1 PRN PRN Reason: Insomnia Last Admin: 04/05/25 23:14 Dose: 50 mg Allergies Allergies Allergy/AdvReac Type Severity Reaction Status Date / Time pumpkin Allergy Unknown Unknown Verified 12/24/24 12:26 Assessment & Plan Assessment & Plan (1) Bipolar disorder: Status: Acute Code(s): F31.9 - Bipolar disorder, unspecified (2) JUVENTINO (acute kidney injury): Status: Acute Code(s): N17.9 - Acute kidney failure, unspecified (3) CVA (cerebral vascular accident): Status: Acute Code(s): I63.9 - Cerebral infarction, unspecified (4) Abnormal head CT: Status: Acute Code(s): R93.0 - Abnormal findings on diagnostic imaging of skull and head, not elsewhere classified Plan 03/27: feels latuda 120 has been helpful. however, remains depressed. add wellbutrin XL 150 daily for depression, plan to increase to 300 mg daily in 3 days. may also consider ECT due to lack of improvement despite numerous recent hospitalizations + lethality of suicide attempts + recent self-abnegating behaviors. 03/28: no change in presentation, no requests or complaints. started wellbutrin 150 today. continue current mgmt 03/29/25: Slept well, no issues with appetite. Observed out on the unit, attended groups, engaging. Reports depression and 03/21, denies anxiety. Constricted affect, congruent with mood. Denies safety concerns. Compliant with medications. Denies side effects from Wellbutrin. Continue to encourage groups. 03/30/25: Patient slept for 6 hours, was medication compliant. He attended 2 groups yesterday, however today he is more isolated, in bed a lot more time, declines a couple groups. Reports depressed but no anxiety, flat affect, depressed, but cooperative during one-to-one assessment. He is receptive with the plan of Wellbutrin increased up to 300 mg for depression. Reports passive SI, denies plan or intention. Denies other safety concerns. Encourage patient to go to groups and shower daily. Increase Wellbutrin XL to 300 mg daily for depression. He reported that he has bipolar type II. 03/31: Laying in bed. keeping to self. showered. patient reports feeling depressed ; pt stated, I'm not having a good day. I don't want to do anything . flat affect. denies SI/HI/VH/AH. Per nursing, slept 8 hours. encouraged to attend groups. continue current tx plan. 04/01/25: Patient slept for 8 hours, poor meal intake yesterday but was medication compliant. Denies side effects. When asked about if he has poor appetite as he ate only 50 of breakfast, and 25 for lunch and not eating dinner, he said because I did not do the menu, so I got what I do not like . He shower yesterday, continued to reports depression 03/21. Denied anxiety. He does not feel any difference from Wellbutrin 150 when and when it was increased up to 300 mg. Denies SI/SIB/HI/AVH, isolative self, he plans to attend groups today. This provider spoke with patient in length regarding medication trials. Per his report, has been trying so many antidepressants they just do not work, and continued to be depressed. Some of them are Zoloft, Paxil, Effexor, Celexa, Prozac, Cymbalta, Lexapro. He also having history of taking Zyprexa more than 20 years ago due to hearing voices. Then the voices was calm. He never has a take it again after. History of Abilify but not sure if it is working as he can not recall. Regarding ADLs: He said that he had food at the intermediate twice a day, but he is not showering for many days despite the fact that staff asked him to do so I just do not care about being clean . Reports very low energy, low motivation, been increased suicidal thoughts and depression. He used to love music and reading but not interested in doing anything like that anymore. Reported that he had gastric sleeve surgery back in August 2023 which he lost 230 lb. He weight 447 lb prior to the surgery. He identified that after the surgery he has been more depressed slowly over months. There was a time that he wanted to starve myself so I can when asked is that you that he has stopped eating at home. He also identified that he feel more depressed after surgery as he is not able to over eating like he did before. Family mental health illnesses: Reports that who both of his parents was depressed. Mom 11 years ago. 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 History of ECTs: Reports he had history of ECTs in 2010 when he was at in [facility].He felt worse after the treatment everything seems like a dream . He clarified that immediately after the treatment he feel that way which could be a side effects of ECT but not permanent. Educate patient on possible side effects ECTs. Patient denies having seizure during ECTs treatment, no seizure history no cardiac conditions/disease history. Reports history of hypertension, but not anymore. He also has been admitted to different hospitals for psychiatric admissions in the past couple of months. Reports staying at [facility] in December for a month. New hospital in the area names [facility]) in October for another month. Per email from his OP team- clinical director at [facility], they also express concerns of patient's conditions. It is noted that their concerns are very consistent with patient' report here on the unit. He also has been admitted to different hospitals for psychiatric admissions in the past couple of months. Reports staying at [facility] in December for a month. New hospital in the area names [facility] ([facility]) in October for another month. Per email from his OP team- clinical director at [facility], they also express concerns of patient's conditions. It is noted that their concerns are very consistent with patient' report here on the unit. Alfredito has been in and out on inpatient level of care since October of this year, I believe every month, for a majority of the time. He was recently discharged from [facility] after a 1 month stay and within two hours of returning home wanted to return to the hospital, saying he was unwell, and within one day was sectioned by [facility], which is how he ended up with you now. He has been coming home and intentionally starving himself, even not eating for up to 1 week. We have known Alfredito for years and since this started in October, we have seen no significant improvement in his mental health or a return to baseline. In fact, we are observing his case as consistent with failure to thrive. We have been asking for him to be inpatient at [facility] or with you at [facility] for some time in order for him to be potentially considered for ECT level of treatment, if deemed appropriate. Multiple medication trials failture to target depressive symptoms. He will be a good candidate to get trial ECT treatment in combination with current medication regimens. Patient also agrees with the plan. We would start the treatment as soon as possible. Will discuss the case with in house psychiatrist-Dr. Ward to prepare for ECT treatment. Hope to start early next week. 04/02: Laying in bed. keeping to self. Patient continues to report feeling depressed; pt stated, I feel about the same. I spoke with the other provider and agreed to do ECT . He reports sleeping well. denies SI/HI/VH/AH. Encouraged to attend groups and shower. Continue current tx plan. 04/03: no changes- just started wellbutrin 04/04: no changes 04/05/25: report anxiety a 2-3/10 but still 8/10 for depression. No change since started Wellbutrin. He agrees to get Wellbutrin up to 450mg daily for depression. Isolative in room, staring up to the ceiling. Discuss with patient of option to start on Intuniv for severe depression. Patient declines it at this current time but agree to see Welbutrin increased would be helpful. He agrees with ECT. Encourage groups, he says he was at art group out to dinning area but there are too much so he went back to his room. Report not many groups offered over the weekends. 04/06/25: Patient slept for 6 hours, have a sleep study done last night. Reported that he did not sleep well. Appetite is okay. Mood is depressed 8/10, denies anxiety today. Denies suicidal thoughts, but reports he has passive SI yesterday intrusive, just do not Wanna live anymore . Denies hallucinations. Address with patient of why he having bowel movement in the shower. He said it is just one episode. Reports he feel constipated. Agree with Colace. He also inform regarding the ECT which was approved by the insurance. He compliant with medication, however reports he has not feeling any difference in terms of depression at since started on Wellbutrin. Encourage groups attendance. Observe him later on during the day reading at a table in dining area. Colace 100mg BID for constipation. ECT consult placed: Patient may be seen by tomorrow by Dr. Ward. Procedure done preparing for the ECT: Head CT scan negative, EKG normal sinus rhythm, Incomplete right bundle branch block. Borderline ECG_ no change when compare to previous EKG. Unremarkable CBC with diff. 04/07/25: Per hospitalist note: ECT risk stratification Patient without previous problems with anesthesia, has previously undergone ECT RCRI 0 points, no further cardiac workup or treatment indicated at this time EKG showed QT interval WNL, no evidence of ischemic changes Based on stated PMH, HPI, and physical exam, there are no apparent medical contraindications to the planned procedure. Patient is complaining of pelvic discomfort and constipation. We will add therapy with Senokot, MiraLax and obtain urinalysis to assess for urinary tract infection. Continue treatment with atorvastatin and aspirin for history of stroke and hyperlipidemia. 04/07/25: Patient compliant with medication, reports due to the pain abdominal, he could not sleep well last night. Continued to reports depressions 8/10, anxiety 4/10 today related to the pain. Denies suicidal thoughts or voices, isolated. Shower yesterday. Review with patient test need to be done prior to having ECT. Patient met with Dr. Ward and hospitalist for ECT clearance. Due to the pain, constipated, more laxative ordered today. Also UA other by hospitalist to rule out any infection. He is flat, low energy, low motivation, withdrawal, in room mostly, but come out to other rooms to talk to the providers 04/08/25: Patient slept for 8 hours, compliant with medications, denies side effect. Met with him in his room, reported that he slept better last night, having good bowel movement, denies diarrhea is. Informed him regarding the labs work/and UA that was negative to rule out UTI. Denies pain. Explained to patient regarding pre ECT procedures/test to prepare for the day that he going to start. We will start ECT on Saturday. Per Dr. Ward, we will taper down on Latuda, start him on Modafinil low dose to help with severe depression. Continued to reports moderate to severe depression. Denies suicidal thoughts or hallucinations. 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 He denied any significant or excessive drug exposure. I do not find any focal lesion, acute or chronic, suggestive of stroke. There was no contraindication to treatment with ECT. Otherwise treatment of this condition is supportive, symptomatic and conservative Taper down on Latuda from 120 down to 100 mg daily at 17:00 for mood. Start on Modefinil 100ng daily for severe depression, low energy, poor concentration, poor motivation. ECT will be scheduled next week on Saturday. We will received treatment for Saturday/Saturday and Saturday. 04/09/25: Patient denies pain, normal bowel movement, slept well and compliant with medications. Denies side effects. Denies suicidal thoughts or hallucinations but reports mild on anxiety and moderate to severe depression. Patient appeared to be disheveled. Encourage patient to be out of bed in attended to groups included OT groups which observe he is visible in day room after the conversation. The OT will do the [place] for pre ECT next week on Saturday prior the ECT. He started modafinil 50 mg this morning. Indication and side effects explained to patient. Patient is receptive with the plan. Correction: Modefinill 50mg daily. MOCA scheduled next week prior to ECT. 04/10:Laying in bed most of morning. Patient continues to report feeling depressed. He reports looking forward to ECT; pt stated, I think it will be a positive step to get ECT . denies SI/HI/VH/AH. Encouraged to get out of bed. Continue tx plan 04/11: Per nursing, pt did not get out of bed yesterday. Observed laying in bed this morning; encouraged to attend groups and shower. Patient continues to report feeling depressed. denies SI/HI/VH/AH. Encouraged to get out of bed. Continue tx plan. 04/12: continue current tx plan 04/13: stably depressed. PMR. start ECT tomorrow, otherwise continue current mgmt. NPO past MN. 04/14/25: got his first ECT treatment this afternoon. Patient slept for 6 hours, was medication compliant. However, this morning due to the delay of the ECT treatment, he was not happy about the delay into the afternoon. He appeared to be frustrated, irritable, and not cooperative with this provider I do not want to talk to anyone . I am done talking . I do not care when asked his last bowel movement. Per nursing, patient denies suicidal thoughts, other safety concerns. Reports he has no bowel movement x4 days. Medication this morning was held until after the ECT. He also was given citrate magnesium x1. Pending effect. Patient educated on: other (not cooperative and not engage in assessment or teaching. ) Informed Consent: further education needed Reason for continued inpatient stay Substantial Risk for: med/psych decompensation Time Spent With Patient Time: Total time managing care of this patient today ____ minutes.
[2025-04-15 07:00] VITALS: BMI 34.5
[2025-04-15 08:00] VITALS: BP 98/58; PULSE 70; RESP 20; TEMP 36.8; O2SAT 97
[2025-04-15] MEDS: buPROPion HCl XL 150 MG TAB.ER.24H 450 MG PO (08:30)
[2025-04-15] MEDS: Aspirin Enteric Coated 81 MG TABLET.DR PO (08:30)
--- NOTE | 2025-04-15 13:30 | HO.PSYCHPN ---
Subjective Subjective Date of Service: 04/15/25 Reason For Visit: SI Interim History: inert. no change in presentation or mood. per staff, dep 8 anx 3. irritable. got ECT in anoon. flat, taking meds. slept 6 hours. Mental Status Exam Mental Status Exam Narrative: Appearance: Casually dressed, unkempt, disheveled Behavior: Calm and cooperative, PMR Eye contact is appropriate Speech: Normal loudness. slowed, flattened prosody. Thought process logical and goal-directed Thought content: On treatment. Mood: depressed Affect: constricted, hypo-intense SI: none expressed HI: none expressed VH/AH: none expressed Delusions: None expressed Insight/judgment: impaired Diagnostics Vital Signs (24Hr): Vital Signs - 24 hr 04/14/25 13:31 04/14/25 13:36 04/14/25 13:41 Temperature 97.1 F Pulse Rate 86 91 85 Respiratory Rate 24 H 17 17 Blood Pressure 133/71 148/101 H 128/72 Pulse Oximetry 94 91 L 91 L Oxygen Delivery Method Nasal Cannula with ETCO2 Nasal Cannula with ETCO2 Nasal Cannula with ETCO2 Oxygen Flow Rate 6 6 6 04/14/25 13:46 04/14/25 14:01 04/14/25 14:16 Temperature 98.3 F Pulse Rate 80 74 86 Respiratory Rate 20 21 H 20 Blood Pressure 124/63 136/64 140/87 H Pulse Oximetry 92 95 96 Oxygen Delivery Method Nasal Cannula with ETCO2 Room Air Room Air Oxygen Flow Rate 6 04/14/25 14:25 04/14/25 14:25 04/14/25 20:00 Temperature 98.4 F 98.4 F 98.2 F Pulse Rate 70 70 103 H Respiratory Rate 16 16 18 Blood Pressure 119/77 119/77 131/75 Pulse Oximetry 96 96 100 Oxygen Delivery Method Room Air Room Air Oxygen Flow Rate 04/15/25 08:00 Temperature 98.2 F Pulse Rate 70 Respiratory Rate 20 Blood Pressure 98/58 L Pulse Oximetry 97 Oxygen Delivery Method Room Air Oxygen Flow Rate BMI result Body Mass Index 31.4 Labs 04/06/25 14:28 04/06/25 14:28 Imaging Radiology Impressions: ITS Impressions Head CT 04/06/25 13:54 IMPRESSION: No acute intracranial hemorrhage. Bifrontal bitemporal lobes atrophy. Electronically signed by: Roque Guillen MD 04/06/2025 02:15 PM EDT RP Medications Medications Current Medications Acetaminophen (Acetaminophen 325 Mg Tablet) 650 mg PO Q6H PRN PRN Reason: Headache/Pain, Scale 1-10 Last Admin: 04/14/25 20:25 Dose: 650 mg Al Hydroxide/Mg Hydroxide (Magnesium Hydrox/Alum Hydrox 30 Ml Oral.Susp) 30 ml PO Q6H PRN PRN Reason: Heartburn/Nausea Aspirin (Aspirin Enteric Coated 81 Mg Tablet.) 81 mg PO DAILY [facility] Last Admin: 04/15/25 08:30 Dose: 81 mg Atorvastatin Calcium (Atorvastatin Calcium 20 Mg Tablet) 20 mg PO BEDTIME [facility] Last Admin: 04/14/25 20:25 Dose: 20 mg Bisacodyl (Bisacodyl 5 Mg Tablet.) 10 mg PO DAILY PRN PRN Reason: severe Constipation Bupropion HCl (Bupropion Hcl Xl 150 Mg Tab.Er.24h) 450 mg PO DAILY [facility] Last Admin: 04/15/25 08:30 Dose: 450 mg Docusate Sodium (Docusate Sodium 100 Mg Capsule) 100 mg PO BID [facility] Last Admin: 04/15/25 08:30 Dose: 100 mg Hydroxyzine HCl (Hydroxyzine Hcl 25 Mg Tablet) 25 mg PO Q6H PRN PRN Reason: mild anxiety Last Admin: 03/26/25 23:24 Dose: 25 mg Lurasidone HCl (Lurasidone Hcl 80 Mg Tablet) 80 mg PO DAILY@1700 [facility] Last Admin: 04/14/25 17:20 Dose: 80 mg Lurasidone HCl (Lurasidone Hcl 20 Mg Tablet) 20 mg PO DAILY@1700 [facility] Last Admin: 04/14/25 17:20 Dose: 20 mg Magnesium Hydroxide (Milk Of Magnesia 30 Ml Oral.Susp) 30 ml PO DAILY PRN PRN Reason: Constipation Last Admin: 04/13/25 08:27 Dose: 30 ml Modafinil (Modafinil 100 Mg Tablet) 100 mg PO DAILY [facility] Last Admin: 04/15/25 08:30 Dose: 100 mg Nicotine (Nicotine 21 Mg Patch.Td24) 21 mg TRANSDERMA DAILY PRN PRN Reason: nicotine craving Nicotine Polacrilex (Nicotine Polacrilex 2 Mg Gum) 2 mg BUCCAL Q2H PRN PRN Reason: Nicotine Cravings Olanzapine (Olanzapine 5 Mg Tablet) 5 mg PO BID PRN PRN Reason: agitation Polyethylene Glycol (Polyethylene Glycol 3350 17 Gm Powd.Pack) 17 gm PO DAILY [facility] Last Admin: 04/15/25 08:34 Dose: Not Given Senna (Sennosides 8.6 Mg Tablet) 17.2 mg PO BEDTIME [facility] Last Admin: 04/14/25 20:24 Dose: 17.2 mg Trazodone HCl (Trazodone Hcl 50 Mg Tablet) 50 mg PO BEDTIME MRX1 PRN PRN Reason: Insomnia Last Admin: 04/05/25 23:14 Dose: 50 mg Allergies Allergies Allergy/AdvReac Type Severity Reaction Status Date / Time pumpkin Allergy Unknown Unknown Verified 12/24/24 12:26 Assessment & Plan Assessment & Plan (1) Bipolar disorder: Status: Acute Code(s): F31.9 - Bipolar disorder, unspecified (2) JUVENTINO (acute kidney injury): Status: Acute Code(s): N17.9 - Acute kidney failure, unspecified (3) CVA (cerebral vascular accident): Status: Acute Code(s): I63.9 - Cerebral infarction, unspecified (4) Abnormal head CT: Status: Acute Code(s): R93.0 - Abnormal findings on diagnostic imaging of skull and head, not elsewhere classified Plan 03/27: feels latuda 120 has been helpful. however, remains depressed. add wellbutrin XL 150 daily for depression, plan to increase to 300 mg daily in 3 days. may also consider ECT due to lack of improvement despite numerous recent hospitalizations + lethality of suicide attempts + recent self-abnegating behaviors. 03/28: no change in presentation, no requests or complaints. started wellbutrin 150 today. continue current mgmt 03/29/25: Slept well, no issues with appetite. Observed out on the unit, attended groups, engaging. Reports depression and 03/21, denies anxiety. Constricted affect, congruent with mood. Denies safety concerns. Compliant with medications. Denies side effects from Wellbutrin. Continue to encourage groups. 03/30/25: Patient slept for 6 hours, was medication compliant. He attended 2 groups yesterday, however today he is more isolated, in bed a lot more time, declines a couple groups. Reports depressed but no anxiety, flat affect, depressed, but cooperative during one-to-one assessment. He is receptive with the plan of Wellbutrin increased up to 300 mg for depression. Reports passive SI, denies plan or intention. Denies other safety concerns. Encourage patient to go to groups and shower daily. Increase Wellbutrin XL to 300 mg daily for depression. He reported that he has bipolar type II. 03/31: Laying in bed. keeping to self. showered. patient reports feeling depressed ; pt stated, I'm not having a good day. I don't want to do anything . flat affect. denies SI/HI/VH/AH. Per nursing, slept 8 hours. encouraged to attend groups. continue current tx plan. 04/01/25: Patient slept for 8 hours, poor meal intake yesterday but was medication compliant. Denies side effects. When asked about if he has poor appetite as he ate only 50 of breakfast, and 25 for lunch and not eating dinner, he said because I did not do the menu, so I got what I do not like . He shower yesterday, continued to reports depression 03/21. Denied anxiety. He does not feel any difference from Wellbutrin 150 when and when it was increased up to 300 mg. Denies SI/SIB/HI/AVH, isolative self, he plans to attend groups today. This provider spoke with patient in length regarding medication trials. Per his report, has been trying so many antidepressants they just do not work, and continued to be depressed. Some of them are Zoloft, Paxil, Effexor, Celexa, Prozac, Cymbalta, Lexapro. He also having history of taking Zyprexa more than 20 years ago due to hearing voices. Then the voices was calm. He never has a take it again after. History of Abilify but not sure if it is working as he can not recall. Regarding ADLs: He said that he had food at the [facility] twice a day, but he is not showering for many days despite the fact that staff asked him to do so I just do not care about being clean . Reports very low energy, low motivation, been increased suicidal thoughts and depression. He used to love music and reading but not interested in doing anything like that anymore. Reported that he had gastric sleeve surgery back in August 2023 which he lost 230 lb. He weight 447 lb prior to the surgery. He identified that after the surgery he has been more depressed slowly over months. There was a time that he wanted to starve myself so I can when asked is that you that he has stopped eating at home. He also identified that he feel more depressed after surgery as he is not able to over eating like he did before. Family mental health illnesses: Reports that who both of his parents was depressed. Mom 11 years ago. 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 History of ECTs: Reports he had history of ECTs in 2010 when he was at in [facility].He felt worse after the treatment everything seems like a dream . He clarified that immediately after the treatment he feel that way which could be a side effects of ECT but not permanent. Educate patient on possible side effects ECTs. Patient denies having seizure during ECTs treatment, no seizure history no cardiac conditions/disease history. Reports history of hypertension, but not anymore. He also has been admitted to different hospitals for psychiatric admissions in the past couple of months. Reports staying at [facility] in December for a month. [facility] in the area names [facility]) in October for another month. Per email from his OP team- clinical director at [facility], they also express concerns of patient's conditions. It is noted that their concerns are very consistent with patient' report here on the unit. He also has been admitted to different hospitals for psychiatric admissions in the past couple of months. Reports staying at [facility] in December for a month. [facility] in the area names [facility]) in October for another month. Per email from his OP team- clinical director at [facility], they also express concerns of patient's conditions. It is noted that their concerns are very consistent with patient' report here on the unit. Alfredito has been in and out on inpatient level of care since October of this year, I believe every month, for a majority of the time. He was recently discharged from [facility] after a 1 month stay and within two hours of returning home wanted to return to the hospital, saying he was unwell, and within one day was sectioned by [facility], which is how he ended up with you now. He has been coming home and intentionally starving himself, even not eating for up to 1 week. We have known Alfredito for years and since this started in October, we have seen no significant improvement in his mental health or a return to baseline. In fact, we are observing his case as consistent with failure to thrive. We have been asking for him to be inpatient at [facility] or with you at [facility] for some time in order for him to be potentially considered for ECT level of treatment, if deemed appropriate. Multiple medication trials failture to target depressive symptoms. He will be a good candidate to get trial ECT treatment in combination with current medication regimens. Patient also agrees with the plan. We would start the treatment as soon as possible. Will discuss the case with in house psychiatrist-Dr. Ward to prepare for ECT treatment. Hope to start early next week. 04/02: Laying in bed. keeping to self. Patient continues to report feeling depressed; pt stated, I feel about the same. I spoke with the other provider and agreed to do ECT . He reports sleeping well. denies SI/HI/VH/AH. Encouraged to attend groups and shower. Continue current tx plan. 04/03: no changes- just started wellbutrin 04/04: no changes 04/05/25: report anxiety a 2-3 but still 03/21 for depression. No change since started Wellbutrin. He agrees to get Wellbutrin up to 450mg daily for depression. Isolative in room, staring up to the ceiling. Discuss with patient of option to start on Intuniv for severe depression. Patient declines it at this current time but agree to see Welbutrin increased would be helpful. He agrees with ECT. Encourage groups, he says he was at art group out to dinning area but there are too much so he went back to his room. Report not many groups offered over the weekends. 04/06/25: Patient slept for 6 hours, have a sleep study done last night. Reported that he did not sleep well. Appetite is okay. Mood is depressed 03/21, denies anxiety today. Denies suicidal thoughts, but reports he has passive SI yesterday intrusive, just do not Wanna live anymore . Denies hallucinations. Address with patient of why he having bowel movement in the shower. He said it is just one episode. Reports he feel constipated. Agree with Kun. He also inform regarding the ECT which was approved by the insurance. He compliant with medication, however reports he has not feeling any difference in terms of depression at since started on Wellbutrin. Encourage groups attendance. Observe him later on during the day reading at a table in dining area. Colace 100mg BID for constipation. ECT consult placed: Patient may be seen by tomorrow by Dr. Ward. Procedure done preparing for the ECT: Head CT scan negative, EKG normal sinus rhythm, Incomplete right bundle branch block. Borderline ECG_ no change when compare to previous EKG. Unremarkable CBC with diff. 04/07/25: Per hospitalist note: ECT risk stratification Patient without previous problems with anesthesia, has previously undergone ECT RCRI 0 points, no further cardiac workup or treatment indicated at this time EKG showed QT interval WNL, no evidence of ischemic changes Based on stated PMH, HPI, and physical exam, there are no apparent medical contraindications to the planned procedure. Patient is complaining of pelvic discomfort and constipation. We will add therapy with Senokot, MiraLax and obtain urinalysis to assess for urinary tract infection. Continue treatment with atorvastatin and aspirin for history of stroke and hyperlipidemia. 04/07/25: Patient compliant with medication, reports due to the pain abdominal, he could not sleep well last night. Continued to reports depressions 8/10, anxiety 4/10 today related to the pain. Denies suicidal thoughts or voices, isolated. Shower yesterday. Review with patient test need to be done prior to having ECT. Patient met with Dr. Ward and hospitalist for ECT clearance. Due to the pain, constipated, more laxative ordered today. Also UA other by hospitalist to rule out any infection. He is flat, low energy, low motivation, withdrawal, in room mostly, but come out to other rooms to talk to the providers 04/08/25: Patient slept for 8 hours, compliant with medications, denies side effect. Met with him in his room, reported that he slept better last night, having good bowel movement, denies diarrhea is. Informed him regarding the labs work/and UA that was negative to rule out UTI. Denies pain. Explained to patient regarding pre ECT procedures/test to prepare for the day that he going to start. We will start ECT on Saturday. Per Dr. Ward, we will taper down on Latuda, start him on Modafinil low dose to help with severe depression. Continued to reports moderate to severe depression. Denies suicidal thoughts or hallucinations. 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 He denied any significant or excessive drug exposure. I do not find any focal lesion, acute or chronic, suggestive of stroke. There was no contraindication to treatment with ECT. Otherwise treatment of this condition is supportive, symptomatic and conservative Taper down on Latuda from 120 down to 100 mg daily at 17:00 for mood. Start on Modefinil 100ng daily for severe depression, low energy, poor concentration, poor motivation. ECT will be scheduled next week on Saturday. We will received treatment for Saturday/Saturday and Saturday. 04/09/25: Patient denies pain, normal bowel movement, slept well and compliant with medications. Denies side effects. Denies suicidal thoughts or hallucinations but reports mild on anxiety and moderate to severe depression. Patient appeared to be disheveled. Encourage patient to be out of bed in attended to groups included OT groups which observe he is visible in day room after the conversation. The OT will do the [place] for pre ECT next week on Saturday prior the ECT. He started modafinil 50 mg this morning. Indication and side effects explained to patient. Patient is receptive with the plan. Correction: Modefinill 50mg daily. MOCA scheduled next week prior to ECT. 04/10:Laying in bed most of morning. Patient continues to report feeling depressed. He reports looking forward to ECT; pt stated, I think it will be a positive step to get ECT . denies SI/HI/VH/AH. Encouraged to get out of bed. Continue tx plan 04/11: Per nursing, pt did not get out of bed yesterday. Observed laying in bed this morning; encouraged to attend groups and shower. Patient continues to report feeling depressed. denies SI/HI/VH/AH. Encouraged to get out of bed. Continue tx plan. 04/12: continue current tx plan 04/13: stably depressed. PMR. start ECT tomorrow, otherwise continue current mgmt. NPO past MN. 04/14/25: got his first ECT treatment this afternoon. Patient slept for 6 hours, was medication compliant. However, this morning due to the delay of the ECT treatment, he was not happy about the delay into the afternoon. He appeared to be frustrated, irritable, and not cooperative with this provider I do not want to talk to anyone . I am done talking . I do not care when asked his last bowel movement. Per nursing, patient denies suicidal thoughts, other safety concerns. Reports he has no bowel movement x4 days. Medication this morning was held until after the ECT. He also was given citrate magnesium x1. Pending effect. 04/15: made bowel movement. ECT #2 tomorrow. no change in mood or presentation as of today. T/C increasing modafanil to 200 mg sometime next week. Reason for continued inpatient stay Substantial Risk for: harm to self and inability to function Time Spent With Patient Time: Total time managing care of this patient today __25__ minutes.
[2025-04-15 19:24] VITALS: BP 106/57; PULSE 76; RESP 14; TEMP 36.4; O2SAT 95
[2025-04-16] VITALS (9 sets, daily range): BP systolic 100–144; BP diastolic 59–86; PULSE 68–81; RESP 16–24; TEMP 36.2–36.9; O2SAT 95–99
--- NOTE | 2025-04-16 06:54 | MHC.SHP ---
Pre-Procedural Eval Section A - 24 Hr Update-Section A only Date of Service: 04/16/25 The patient is an INPATIENT: Yes Changes since office visit: Yes Patient answered all questions; No Cold of Flu in the past 2 weeks, No New Medical Problems and No Changes in Medication The patient has been examined within 24 hours of the surgical procedure. The History & Physical has been completed within 30 days and I have reviewed it.: Yes Section B - Complete if H&P > 30 days Chief Complaint: SI Allergies: Allergies Allergy/AdvReac Type Severity Reaction Status Date / Time pumpkin Allergy Unknown Unknown Verified 12/24/24 12:26 Review of Systems Sugical H&P ROS: Negative: Constitution and Neurological Plan Diagnosis/Plan: Unchanged I have reviewed the history and physical and performed a pertinent physical examination on my patient. No changes have occurred unless specified. Time Spent With Patient Time: Total time managing care of this patient today _30___ minutes.
--- NOTE | 2025-04-16 07:15 | P.CONAN_ITS ---
HPI - Anesthesia Eval Consult details Narrative: for ECT PMFSH Active Problems Active Problems: All Active Problems CVA (cerebral vascular accident) (Acute) Abnormal head CT (Acute) JUVENTINO (acute kidney injury) (Acute) Depression (Acute) Bipolar disorder (Acute) H/O gastric sleeve (Acute) Past Medical History Medical History Obesity LUIS (obstructive sleep apnea) HLD (hyperlipidemia) HTN (hypertension) CVA (cerebral vascular accident) Functional capacity: independent ambulation Family History Family history of problems with anesthesia: No Surgical History History of Problems with Anesthesia: No Social History Social History Household Members: Other Household Members Other:: transitional housing Housing: Other Do you presently have visiting nurse or other home services: No Patient Tobacco Use Status: Never used Tobacco Second Hand Smoke Exposure: Yes Currently Displaying Signs/Symptoms of Drug Intoxication Withdrawal: No Have you been hit, kicked, punched, or otherwise hurt by someone within the past year? If so, by whom?: No Do you feel safe in your current relationship?: No Current Relationship Is there a partner from a previous relationship who is making you feel unsafe now?: No Are you made to feel afraid or neglected: No Advance Directives: No Advance Directives Information Provided: No Do you have thoughts of harming others: None Do you have a plan to hurt others: No Plan Recently lost weight without trying: No Eating poorly because of decreased appetite: No Nutrition Risks: No Nutritional Risk Poor oral hygiene: Yes (very dry scalp) service: No Sexual orientation: Straight/Heterosexual Meds Allergies Allergy/AdvReac Type Severity Reaction Status Date / Time pumpkin Allergy Unknown Unknown Verified 12/24/24 12:26 Active Medications: Current Medications Acetaminophen (Acetaminophen 325 Mg Tablet) 650 mg PO Q6H PRN PRN Reason: Headache/Pain, Scale 1-10 Last Admin: 04/14/25 20:25 Dose: 650 mg Al Hydroxide/Mg Hydroxide (Magnesium Hydrox/Alum Hydrox 30 Ml Oral.Susp) 30 ml PO Q6H PRN PRN Reason: Heartburn/Nausea Aspirin (Aspirin Enteric Coated 81 Mg Tablet.Dr) 81 mg PO DAILY JENNIFER Last Admin: 04/15/25 08:30 Dose: 81 mg Atorvastatin Calcium (Atorvastatin Calcium 20 Mg Tablet) 20 mg PO BEDTIME [facility] Last Admin: 04/15/25 21:26 Dose: 20 mg Bisacodyl (Bisacodyl 5 Mg Tablet.Dr) 10 mg PO DAILY PRN PRN Reason: severe Constipation Bupropion HCl (Bupropion Hcl Xl 150 Mg Tab.Er.24h) 450 mg PO DAILY [facility] Last Admin: 04/15/25 08:30 Dose: 450 mg Docusate Sodium (Docusate Sodium 100 Mg Capsule) 100 mg PO BID [facility] Last Admin: 04/15/25 21:26 Dose: 100 mg Hydroxyzine HCl (Hydroxyzine Hcl 25 Mg Tablet) 25 mg PO Q6H PRN PRN Reason: mild anxiety Last Admin: 03/26/25 23:24 Dose: 25 mg Lurasidone HCl (Lurasidone Hcl 80 Mg Tablet) 80 mg PO DAILY@1700 [facility] Last Admin: 04/15/25 16:57 Dose: 80 mg Lurasidone HCl (Lurasidone Hcl 20 Mg Tablet) 20 mg PO DAILY@1700 [facility] Last Admin: 04/15/25 16:57 Dose: 20 mg Magnesium Hydroxide (Milk Of Magnesia 30 Ml Oral.Susp) 30 ml PO DAILY PRN PRN Reason: Constipation Last Admin: 04/13/25 08:27 Dose: 30 ml Modafinil (Modafinil 100 Mg Tablet) 100 mg PO DAILY [facility] Last Admin: 04/15/25 08:30 Dose: 100 mg Nicotine (Nicotine 21 Mg Patch.Td24) 21 mg TRANSDERMA DAILY PRN PRN Reason: nicotine craving Nicotine Polacrilex (Nicotine Polacrilex 2 Mg Gum) 2 mg BUCCAL Q2H PRN PRN Reason: Nicotine Cravings Olanzapine (Olanzapine 5 Mg Tablet) 5 mg PO BID PRN PRN Reason: agitation Polyethylene Glycol (Polyethylene Glycol 3350 17 Gm Powd.Pack) 17 gm PO DAILY [facility] Last Admin: 04/15/25 08:34 Dose: Not Given Senna (Sennosides 8.6 Mg Tablet) 17.2 mg PO BEDTIME [facility] Last Admin: 04/15/25 21:26 Dose: 17.2 mg Trazodone HCl (Trazodone Hcl 50 Mg Tablet) 50 mg PO BEDTIME MRX1 PRN PRN Reason: Insomnia Last Admin: 04/05/25 23:14 Dose: 50 mg Exam Height,Weight and Vital Signs: Height 5 ft 9 in Weight 105.857 kg Last Vital Signs Temp 97.2 F 04/16/25 06:39 Pulse 70 04/16/25 06:39 Resp 16 04/16/25 06:39 BP 100/59 L 04/16/25 06:39 Pulse Ox 95 04/16/25 06:39 O2 Del Method Room Air 04/16/25 06:39 O2 Flow Rate 6 04/14/25 13:46 Pertinent Lab Results Pertinent Lab Results: Laboratory Tests 03/26/25 03/26/25 03/27/25 14:42 15:45 08:31 WBC 9.9 RBC 4.34 L Hgb 12.8 L Hct 38.3 L MCV 88.2 MCH 29.5 MCHC 33.4 RDW 14.6 Plt Count 191 MPV 10.6 Immature Gran % (Auto) 0.2 Neut % (Auto) 61.2 Lymph % (Auto) 28.9 [place] % (Auto) 8.8 Eos % (Auto) 0.7 Baso % (Auto) 0.2 Lymph # (Auto) 2.9 [place] # (Auto) 0.9 Eos # (Auto) 0.1 Baso # (Auto) 0.0 Abs Immat Gran (auto) 0.02 Absolute Neuts (auto) 6.1 Absolute Nucleated RBC 0.000 Nucleated RBC % (auto) 0.0 Sodium 138 143 Potassium 4.4 4.2 Chloride 103 106 Carbon Dioxide 26 23 Anion Gap 13 18 BUN 18 H 16 Creatinine 1.55 H 1.19 Estim Creat Clear Calc 65.6 86.0 Estimated GFR 48 > 60 Random Glucose 93 78 Estimat Average Glucose 91 Hemoglobin A1c % 4.8 Calcium 9.0 9.0 Total Bilirubin 1.1 H AST 28 ALT 11 Alkaline Phosphatase 62 B-Natriuretic Peptide Total Protein 6.0 L Albumin 3.7 Triglycerides 66 Cholesterol 153 LDL Cholesterol, Calc 92 HDL Cholesterol 48 TSH 3.31 Free T4 1.09 Urine Color Yellow Urine Appearance Cloudy Urine pH 5.5 Ur Specific [place] 1.015 Urine Protein 30 (1+) H Urine Glucose (UA) Negative Urine Ketones Negative Urine Blood Negative Urine Nitrite Negative Ur Leukocyte Esterase Trace H Urine RBC 0-2 Urine WBC 0-5 Ur Squamous Epith Cells 6-10 Urine Bacteria None Seen Hyaline Casts >20 Salicylates < 5.0 L Urine Opiates Screen Not Detected Ur Buprenorphine Scrn Not Detected Ur Oxycodone Screen Not Detected Urine Methadone Screen Not Detected Urine Fentanyl Screen Not Detected Acetaminophen < 3 Ur Barbiturates Screen Not Detected Ur Phencyclidine Scrn Not Detected Ur Amphetamines Screen Not Detected U Benzodiazepines Scrn Not Detected Urine Cocaine Screen Not Detected U Marijuana (THC) Screen Not Detected Ethyl Alcohol < 10 Influenza Type A (PCR) NEGATIVE Influenza Type B (PCR) NEGATIVE RSV RNA Qual (PCR) NEGATIVE SARS-CoV-2 RNA (RT-PCR) NEGATIVE 04/06/25 04/07/25 04/07/25 14:28 08:07 21:30 WBC 9.1 RBC 4.59 L Hgb 13.4 L Hct 40.9 L MCV 89.1 MCH 29.2 MCHC 32.8 RDW 14.0 Plt Count 303 D MPV 10.6 Immature Gran % (Auto) 0.4 Neut % (Auto) 58.1 Lymph % (Auto) 32.8 [place] % (Auto) 6.4 Eos % (Auto) 2.1 Baso % (Auto) 0.2 Lymph # (Auto) 3.0 [place] # (Auto) 0.6 Eos # (Auto) 0.2 Baso # (Auto) 0.0 Abs Immat Gran (auto) 0.04 H Absolute Neuts (auto) 5.3 Absolute Nucleated RBC 0.000 Nucleated RBC % (auto) 0.0 Sodium 143 Potassium 4.6 Chloride 105 Carbon Dioxide 28 Anion Gap 15 BUN 17 H Creatinine 1.35 Estim Creat Clear Calc 75.5 Estimated GFR 56 Random Glucose 96 Estimat Average Glucose Hemoglobin A1c % Calcium 9.4 Total Bilirubin 0.6 AST 26 ALT 23 Alkaline Phosphatase 66 B-Natriuretic Peptide Total Protein 6.4 L Albumin 3.9 Triglycerides Cholesterol LDL Cholesterol, Calc HDL Cholesterol TSH 2.42 Free T4 Urine Color Yellow Urine Appearance Clear Urine pH 6.0 Ur Specific [place] 1.010 Urine Protein Negative Urine Glucose (UA) Negative Urine Ketones Negative Urine Blood Negative Urine Nitrite Negative Ur Leukocyte Esterase Negative Urine RBC Urine WBC Ur Squamous Epith Cells Urine Bacteria Hyaline Casts Salicylates Urine Opiates Screen Ur Buprenorphine Scrn Ur Oxycodone Screen Urine Methadone Screen Urine Fentanyl Screen Acetaminophen Ur Barbiturates Screen Ur Phencyclidine Scrn Ur Amphetamines Screen U Benzodiazepines Scrn Urine Cocaine Screen U Marijuana (THC) Screen Ethyl Alcohol Influenza Type A (PCR) Influenza Type B (PCR) RSV RNA Qual (PCR) SARS-CoV-2 RNA (RT-PCR) 04/10/25 09:18 WBC RBC Hgb Hct MCV MCH MCHC RDW Plt Count MPV Immature Gran % (Auto) Neut % (Auto) Lymph % (Auto) [place] % (Auto) Eos % (Auto) Baso % (Auto) Lymph # (Auto) [place] # (Auto) Eos # (Auto) Baso # (Auto) Abs Immat Gran (auto) Absolute Neuts (auto) Absolute Nucleated RBC Nucleated RBC % (auto) Sodium Potassium Chloride Carbon Dioxide Anion Gap BUN Creatinine Estim Creat Clear Calc Estimated GFR Random Glucose Estimat Average Glucose Hemoglobin A1c % Calcium Total Bilirubin AST ALT Alkaline Phosphatase B-Natriuretic Peptide < 10 Total Protein Albumin Triglycerides Cholesterol LDL Cholesterol, Calc HDL Cholesterol TSH Free T4 Urine Color Urine Appearance Urine pH Ur Specific [place] Urine Protein Urine Glucose (UA) Urine Ketones Urine Blood Urine Nitrite Ur Leukocyte Esterase Urine RBC Urine WBC Ur Squamous Epith Cells Urine Bacteria Hyaline Casts Salicylates Urine Opiates Screen Ur Buprenorphine Scrn Ur Oxycodone Screen Urine Methadone Screen Urine Fentanyl Screen Acetaminophen Ur Barbiturates Screen Ur Phencyclidine Scrn Ur Amphetamines Screen U Benzodiazepines Scrn Urine Cocaine Screen U Marijuana (THC) Screen Ethyl Alcohol Influenza Type A (PCR) Influenza Type B (PCR) RSV RNA Qual (PCR) SARS-CoV-2 RNA (RT-PCR) Airway Mallampati Class: II TM Dist: <=3cm Neck ROM: Full Partial: Upper Heart: ok Lungs: ok Assessment and Plan Assessment Anesthesia Assessment: Anesthesia Plan Discussed and Chart Reviewed Final Anesthetic Review Family History of Problems with Anesthesia: No History of Problems with Anesthesia: No NPO: Yes ASA Class: III Final Preanesthetic Review: No Changes in Pt Med Stat, Meds/Allgs Chart Reviewed, Consent Obtained/Reviewed and Anes Risks/Benef Reviewed Patient Risk: Intermediate Procedure Risk: Intermediate Anesthetic Plan Anesthetic Plan: GA and Agree w/ Assess. and Plan Disposition: Standard PACU
--- NOTE | 2025-04-16 08:18 | HO.ECTPROC ---
ECT Procedure Note Diagnosis/Treatment Date of Service: 04/16/25 Diagnosis: Major Depressive Disorder Previous ECT Date: 04/14/25 Current Treatment Number: 2 Treatment: Series Interval Clinical Notes: no change Time: Total time managing care of this patient today __35__ minutes. ECT Settings Device: THYMATRON DGx Electrode Placement: Right Unilateral Program/Pulse Width: 0.25 Energy Percent: 100 Seizure Duration By EEG (in seconds): 32 Medications Administration General Anesthetic: Etomidate (16) Muscle Relaxant: Succinylcholine (100) Ancillary Medications Analgesics: Torodol - Post ECT (30) Airway Management Airway Management: Bag Mask Ventilation Treatment Recommendations No Changes Recommended: No change Pt Tolerated Procedure w/o Issue: Yes
[2025-04-16] MEDS: buPROPion HCl XL 150 MG TAB.ER.24H 450 MG PO (10:07)
[2025-04-16] MEDS: Aspirin Enteric Coated 81 MG TABLET.DR PO (10:08)
--- NOTE | 2025-04-16 10:57 | HO.PSYCHPN ---
Subjective Subjective Date of Service: 04/16/25 Reason For Visit: SI Interim History: pt seen after ECT. resting in bed. states he does not have a FLOWERS this time, so is feeling better than after previous ECT. no other complaints or requests for the weekend, planning for next ECT on saturday. per staff, +SI, chronic, no plan. taking meds. +dep/anx. slept 8 hours. Mental Status Exam Mental Status Exam Narrative: Appearance: Casually dressed, unkempt, disheveled Behavior: Calm and cooperative, PMR Eye contact is appropriate Speech: Normal loudness. slowed, flattened prosody. Thought process logical and goal-directed Thought content: On treatment. Mood: depressed Affect: constricted, hypo-intense SI: chronic, no plan HI: none expressed VH/AH: none expressed Delusions: None expressed Insight/judgment: impaired Diagnostics Vital Signs (24Hr): Vital Signs - 24 hr 04/15/25 19:24 04/16/25 06:20 04/16/25 06:39 Temperature 97.5 F 97.6 F 97.2 F Pulse Rate 76 81 70 Respiratory Rate 14 16 16 Blood Pressure 106/57 L 105/64 100/59 L Pulse Oximetry 95 98 95 Oxygen Delivery Method Room Air Room Air 04/16/25 08:28 04/16/25 08:32 04/16/25 08:38 Temperature 98.4 F Pulse Rate 79 72 72 Respiratory Rate 24 H 20 18 Blood Pressure 143/66 H 130/78 128/84 Pulse Oximetry 97 96 95 Oxygen Delivery Method Room Air Room Air Room Air 04/16/25 08:43 04/16/25 08:58 04/16/25 09:53 Temperature 98.3 F 98.1 F Pulse Rate 69 70 68 Respiratory Rate 20 20 16 Blood Pressure 121/78 122/71 114/63 Pulse Oximetry 97 98 97 Oxygen Delivery Method Room Air Room Air Room Air BMI result Body Mass Index 34.5 Labs 04/06/25 14:28 04/06/25 14:28 Imaging Radiology Impressions: ITS Impressions Head CT 04/06/25 13:54 IMPRESSION: No acute intracranial hemorrhage. Bifrontal bitemporal lobes atrophy. Electronically signed by: Roque Guillen MD 04/06/2025 02:15 PM EDT Medications Medications Current Medications Acetaminophen (Acetaminophen 325 Mg Tablet) 650 mg PO Q6H PRN PRN Reason: Headache/Pain, Scale 1-10 Last Admin: 04/14/25 20:25 Dose: 650 mg Al Hydroxide/Mg Hydroxide (Magnesium Hydrox/Alum Hydrox 30 Ml Oral.Susp) 30 ml PO Q6H PRN PRN Reason: Heartburn/Nausea Aspirin (Aspirin Enteric Coated 81 Mg Tablet.) 81 mg PO DAILY [facility] Last Admin: 04/16/25 10:08 Dose: 81 mg Atorvastatin Calcium (Atorvastatin Calcium 20 Mg Tablet) 20 mg PO BEDTIME [facility] Last Admin: 04/15/25 21:26 Dose: 20 mg Bisacodyl (Bisacodyl 5 Mg Tablet.) 10 mg PO DAILY PRN PRN Reason: severe Constipation Bupropion HCl (Bupropion Hcl Xl 150 Mg Tab.Er.24h) 450 mg PO DAILY [facility] Last Admin: 04/16/25 10:07 Dose: 450 mg Docusate Sodium (Docusate Sodium 100 Mg Capsule) 100 mg PO BID [facility] Last Admin: 04/16/25 10:07 Dose: 100 mg Hydroxyzine HCl (Hydroxyzine Hcl 25 Mg Tablet) 25 mg PO Q6H PRN PRN Reason: mild anxiety Last Admin: 03/26/25 23:24 Dose: 25 mg Lurasidone HCl (Lurasidone Hcl 80 Mg Tablet) 80 mg PO DAILY@1700 [facility] Last Admin: 04/15/25 16:57 Dose: 80 mg Lurasidone HCl (Lurasidone Hcl 20 Mg Tablet) 20 mg PO DAILY@1700 [facility] Last Admin: 04/15/25 16:57 Dose: 20 mg Magnesium Hydroxide (Milk Of Magnesia 30 Ml Oral.Susp) 30 ml PO DAILY PRN PRN Reason: Constipation Last Admin: 04/13/25 08:27 Dose: 30 ml Modafinil (Modafinil 100 Mg Tablet) 100 mg PO DAILY [facility] Last Admin: 04/16/25 10:08 Dose: 100 mg Nicotine (Nicotine 21 Mg Patch.Td24) 21 mg TRANSDERMA DAILY PRN PRN Reason: nicotine craving Nicotine Polacrilex (Nicotine Polacrilex 2 Mg Gum) 2 mg BUCCAL Q2H PRN PRN Reason: Nicotine Cravings Olanzapine (Olanzapine 5 Mg Tablet) 5 mg PO BID PRN PRN Reason: agitation Polyethylene Glycol (Polyethylene Glycol 3350 17 Gm Powd.Pack) 17 gm PO DAILY [facility] Last Admin: 04/16/25 10:09 Dose: Not Given Senna (Sennosides 8.6 Mg Tablet) 17.2 mg PO BEDTIME [facility] Last Admin: 04/15/25 21:26 Dose: 17.2 mg Trazodone HCl (Trazodone Hcl 50 Mg Tablet) 50 mg PO BEDTIME MRX1 PRN PRN Reason: Insomnia Last Admin: 04/05/25 23:14 Dose: 50 mg Allergies Allergies Allergy/AdvReac Type Severity Reaction Status Date / Time pumpkin Allergy Unknown Unknown Verified 12/24/24 12:26 Assessment & Plan Assessment & Plan (1) Bipolar disorder: Status: Acute Code(s): F31.9 - Bipolar disorder, unspecified (2) JUVENTINO (acute kidney injury): Status: Acute Code(s): N17.9 - Acute kidney failure, unspecified (3) CVA (cerebral vascular accident): Status: Acute Code(s): I63.9 - Cerebral infarction, unspecified (4) Abnormal head CT: Status: Acute Code(s): R93.0 - Abnormal findings on diagnostic imaging of skull and head, not elsewhere classified Plan 03/27: feels latuda 120 has been helpful. however, remains depressed. add wellbutrin XL 150 daily for depression, plan to increase to 300 mg daily in 3 days. may also consider ECT due to lack of improvement despite numerous recent hospitalizations + lethality of suicide attempts + recent self-abnegating behaviors. 03/28: no change in presentation, no requests or complaints. started wellbutrin 150 today. continue current mgmt 03/29/25: Slept well, no issues with appetite. Observed out on the unit, attended groups, engaging. Reports depression and 03/21, denies anxiety. Constricted affect, congruent with mood. Denies safety concerns. Compliant with medications. Denies side effects from Wellbutrin. Continue to encourage groups. 03/30/25: Patient slept for 6 hours, was medication compliant. He attended 2 groups yesterday, however today he is more isolated, in bed a lot more time, declines a couple groups. Reports depressed but no anxiety, flat affect, depressed, but cooperative during one-to-one assessment. He is receptive with the plan of Wellbutrin increased up to 300 mg for depression. Reports passive SI, denies plan or intention. Denies other safety concerns. Encourage patient to go to groups and shower daily. Increase Wellbutrin XL to 300 mg daily for depression. He reported that he has bipolar type II. 03/31: Laying in bed. keeping to self. showered. patient reports feeling depressed ; pt stated, I'm not having a good day. I don't want to do anything . flat affect. denies SI/HI/VH/AH. Per nursing, slept 8 hours. encouraged to attend groups. continue current tx plan. 04/01/25: Patient slept for 8 hours, poor meal intake yesterday but was medication compliant. Denies side effects. When asked about if he has poor appetite as he ate only 50 of breakfast, and 25 for lunch and not eating dinner, he said because I did not do the menu, so I got what I do not like . He shower yesterday, continued to reports depression 03/21. Denied anxiety. He does not feel any difference from Wellbutrin 150 when and when it was increased up to 300 mg. Denies SI/SIB/HI/AVH, isolative self, he plans to attend groups today. This provider spoke with patient in length regarding medication trials. Per his report, has been trying so many antidepressants they just do not work, and continued to be depressed. Some of them are Zoloft, Paxil, Effexor, Celexa, Prozac, Cymbalta, Lexapro. He also having history of taking Zyprexa more than 20 years ago due to hearing voices. Then the voices was calm. He never has a take it again after. History of Abilify but not sure if it is working as he can not recall. Regarding ADLs: He said that he had food at the senior living twice a day, but he is not showering for many days despite the fact that staff asked him to do so I just do not care about being clean . Reports very low energy, low motivation, been increased suicidal thoughts and depression. He used to love music and reading but not interested in doing anything like that anymore. Reported that he had gastric sleeve surgery back in August 2023 which he lost 230 lb. He weight 447 lb prior to the surgery. He identified that after the surgery he has been more depressed slowly over months. There was a time that he wanted to starve myself so I can when asked is that you that he has stopped eating at home. He also identified that he feel more depressed after surgery as he is not able to over eating like he did before. Family mental health illnesses: Reports that who both of his parents was depressed. Mom 11 years ago. 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 History of ECTs: Reports he had history of ECTs in 2010 when he was at in [facility].He felt worse after the treatment everything seems like a dream . He clarified that immediately after the treatment he feel that way which could be a side effects of ECT but not permanent. Educate patient on possible side effects ECTs. Patient denies having seizure during ECTs treatment, no seizure history no cardiac conditions/disease history. Reports history of hypertension, but not anymore. He also has been admitted to different hospitals for psychiatric admissions in the past couple of months. Reports staying at [facility] in December for a month. [facility] in the area names [facility] [place]) in October for another month. Per email from his OP team- clinical director at [facility], they also express concerns of patient's conditions. It is noted that their concerns are very consistent with patient' report here on the unit. He also has been admitted to different hospitals for psychiatric admissions in the past couple of months. Reports staying at [facility] in December for a month. [facility] in the area names [facility] [place]) in October for another month. Per email from his OP team- clinical director at [facility], they also express concerns of patient's conditions. It is noted that their concerns are very consistent with patient' report here on the unit. Alfredito has been in and out on inpatient level of care since October of this year, I believe every month, for a majority of the time. He was recently discharged from [facility] after a 1 month stay and within two hours of returning home wanted to return to the hospital, saying he was unwell, and within one day was sectioned by [facility], which is how he ended up with you now. He has been coming home and intentionally starving himself, even not eating for up to 1 week. We have known Alfredito for years and since this started in October, we have seen no significant improvement in his mental health or a return to baseline. In fact, we are observing his case as consistent with failure to thrive. We have been asking for him to be inpatient at [facility] or with you at [facility] for some time in order for him to be potentially considered for ECT level of treatment, if deemed appropriate. Multiple medication trials failture to target depressive symptoms. He will be a good candidate to get trial ECT treatment in combination with current medication regimens. Patient also agrees with the plan. We would start the treatment as soon as possible. Will discuss the case with in house psychiatrist-Dr. Ward to prepare for ECT treatment. Hope to start early next week. 04/02: Laying in bed. keeping to self. Patient continues to report feeling depressed; pt stated, I feel about the same. I spoke with the other provider and agreed to do ECT . He reports sleeping well. denies SI/HI/VH/AH. Encouraged to attend groups and shower. Continue current tx plan. 04/03: no changes- just started wellbutrin 04/04: no changes 04/05/25: report anxiety a 2-3 but still 03/21 for depression. No change since started Wellbutrin. He agrees to get Wellbutrin up to 450mg daily for depression. Isolative in room, staring up to the ceiling. Discuss with patient of option to start on Intuniv for severe depression. Patient declines it at this current time but agree to see Welbutrin increased would be helpful. He agrees with ECT. Encourage groups, he says he was at art group out to dinning area but there are too much so he went back to his room. Report not many groups offered over the weekends. 04/06/25: Patient slept for 6 hours, have a sleep study done last night. Reported that he did not sleep well. Appetite is okay. Mood is depressed 03/21, denies anxiety today. Denies suicidal thoughts, but reports he has passive SI yesterday intrusive, just do not Wanna live anymore . Denies hallucinations. Address with patient of why he having bowel movement in the shower. He said it is just one episode. Reports he feel constipated. Agree with Colace. He also inform regarding the ECT which was approved by the insurance. He compliant with medication, however reports he has not feeling any difference in terms of depression at since started on Wellbutrin. Encourage groups attendance. Observe him later on during the day reading at a table in dining area. Colace 100mg BID for constipation. ECT consult placed: Patient may be seen by tomorrow by Dr. Ward. Procedure done preparing for the ECT: Head CT scan negative, EKG normal sinus rhythm, Incomplete right bundle branch block. Borderline ECG_ no change when compare to previous EKG. Unremarkable CBC with diff. 04/07/25: Per hospitalist note: ECT risk stratification Patient without previous problems with anesthesia, has previously undergone ECT RCRI 0 points, no further cardiac workup or treatment indicated at this time EKG showed QT interval WNL, no evidence of ischemic changes Based on stated PMH, HPI, and physical exam, there are no apparent medical contraindications to the planned procedure. Patient is complaining of pelvic discomfort and constipation. We will add therapy with Senokot, MiraLax and obtain urinalysis to assess for urinary tract infection. Continue treatment with atorvastatin and aspirin for history of stroke and hyperlipidemia. 04/07/25: Patient compliant with medication, reports due to the pain abdominal, he could not sleep well last night. Continued to reports depressions 8/10, anxiety 4/10 today related to the pain. Denies suicidal thoughts or voices, isolated. Shower yesterday. Review with patient test need to be done prior to having ECT. Patient met with Dr. Ward and hospitalist for ECT clearance. Due to the pain, constipated, more laxative ordered today. Also UA other by hospitalist to rule out any infection. He is flat, low energy, low motivation, withdrawal, in room mostly, but come out to other rooms to talk to the providers 04/08/25: Patient slept for 8 hours, compliant with medications, denies side effect. Met with him in his room, reported that he slept better last night, having good bowel movement, denies diarrhea is. Informed him regarding the labs work/and UA that was negative to rule out UTI. Denies pain. Explained to patient regarding pre ECT procedures/test to prepare for the day that he going to start. We will start ECT on Saturday. Per Dr. Ward, we will taper down on Latuda, start him on Modafinil low dose to help with severe depression. Continued to reports moderate to severe depression. Denies suicidal thoughts or hallucinations. 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 He denied any significant or excessive drug exposure. I do not find any focal lesion, acute or chronic, suggestive of stroke. There was no contraindication to treatment with ECT. Otherwise treatment of this condition is supportive, symptomatic and conservative Taper down on Latuda from 120 down to 100 mg daily at 17:00 for mood. Start on Modefinil 100ng daily for severe depression, low energy, poor concentration, poor motivation. ECT will be scheduled next week on Saturday. We will received treatment for Saturday/Saturday and Saturday. 04/09/25: Patient denies pain, normal bowel movement, slept well and compliant with medications. Denies side effects. Denies suicidal thoughts or hallucinations but reports mild on anxiety and moderate to severe depression. Patient appeared to be disheveled. Encourage patient to be out of bed in attended to groups included OT groups which observe he is visible in day room after the conversation. The OT will do the [place] for pre ECT next week on Saturday prior the ECT. He started modafinil 50 mg this morning. Indication and side effects explained to patient. Patient is receptive with the plan. Correction: Modefinill 50mg daily. MOCA scheduled next week prior to ECT. 04/10:Laying in bed most of morning. Patient continues to report feeling depressed. He reports looking forward to ECT; pt stated, I think it will be a positive step to get ECT . denies SI/HI/VH/AH. Encouraged to get out of bed. Continue tx plan 04/11: Per nursing, pt did not get out of bed yesterday. Observed laying in bed this morning; encouraged to attend groups and shower. Patient continues to report feeling depressed. denies SI/HI/VH/AH. Encouraged to get out of bed. Continue tx plan. 04/12: continue current tx plan 04/13: stably depressed. PMR. start ECT tomorrow, otherwise continue current mgmt. NPO past MN. 04/14/25: got his first ECT treatment this afternoon. Patient slept for 6 hours, was medication compliant. However, this morning due to the delay of the ECT treatment, he was not happy about the delay into the afternoon. He appeared to be frustrated, irritable, and not cooperative with this provider I do not want to talk to anyone . I am done talking . I do not care when asked his last bowel movement. Per nursing, patient denies suicidal thoughts, other safety concerns. Reports he has no bowel movement x4 days. Medication this morning was held until after the ECT. He also was given citrate magnesium x1. Pending effect. 04/15: made bowel movement. ECT #2 tomorrow. no change in mood or presentation as of today. T/C increasing modafanil to 200 mg sometime next week. 04/16: completed ECT without incident. no FLOWERS today. no change in presentation otherwise. continue current mgmt. ECT #3 saturday. Reason for continued inpatient stay Substantial Risk for: harm to self and inability to function Time Spent With Patient Time: Total time managing care of this patient today __35__ minutes.
--- NOTE | 2025-04-17 07:48 | HO.PSYCHPN ---
Subjective Subjective Date of Service: 04/17/25 Reason For Visit: SI Interim History: in room. Isolative. Remains depressed. excessive sleeping. Poor appetite. Self-care limited. some hope that ECT will be helpful and will be having his 3rd treatment on Saturday04/19/2025. Reports constipation is better and prefers no med changes on bowel regimen. Review of Systems Review of Systems Constipation improving Mental Status Exam Mental Status Exam Narrative: Appearance: Casually dressed, unkempt, disheveled Behavior: Calm and cooperative, PMR Eye contact is appropriate Speech: Normal loudness. slowed, flattened prosody. Thought process logical and goal-directed Thought content: On treatment. Mood: depressed Affect: constricted, hypo-intense SI: chronic, no plan HI: none expressed VH/AH: none expressed Delusions: None expressed Insight/judgment: impaired Diagnostics Vital Signs (24Hr): Vital Signs - 24 hr 04/16/25 08:28 04/16/25 08:32 04/16/25 08:38 Temperature 98.4 F Pulse Rate 79 72 72 Respiratory Rate 24 H 20 18 Blood Pressure 143/66 H 130/78 128/84 Pulse Oximetry 97 96 95 Oxygen Delivery Method Room Air Room Air Room Air 04/16/25 08:43 04/16/25 08:58 04/16/25 09:53 Temperature 98.3 F 98.1 F Pulse Rate 69 70 68 Respiratory Rate 20 20 16 Blood Pressure 121/78 122/71 114/63 Pulse Oximetry 97 98 97 Oxygen Delivery Method Room Air Room Air Room Air 04/16/25 20:00 Temperature 97.9 F Pulse Rate 68 Respiratory Rate 16 Blood Pressure 144/86 H Pulse Oximetry 99 Oxygen Delivery Method Room Air BMI result Body Mass Index 34.5 Labs 04/06/25 14:28 04/06/25 14:28 Imaging Radiology Impressions: ITS Impressions Head CT 04/06/25 13:54 IMPRESSION: No acute intracranial hemorrhage. Bifrontal bitemporal lobes atrophy. Electronically signed by: Roque Guillen MD 04/06/2025 02:15 PM EDT Medications Medications Current Medications Acetaminophen (Acetaminophen 325 Mg Tablet) 650 mg PO Q6H PRN PRN Reason: Headache/Pain, Scale 1-10 Last Admin: 04/14/25 20:25 Dose: 650 mg Al Hydroxide/Mg Hydroxide (Magnesium Hydrox/Alum Hydrox 30 Ml Oral.Susp) 30 ml PO Q6H PRN PRN Reason: Heartburn/Nausea Aspirin (Aspirin Enteric Coated 81 Mg Tablet.) 81 mg PO DAILY [facility] Last Admin: 04/16/25 10:08 Dose: 81 mg Atorvastatin Calcium (Atorvastatin Calcium 20 Mg Tablet) 20 mg PO BEDTIME [facility] Last Admin: 04/16/25 20:28 Dose: 20 mg Bisacodyl (Bisacodyl 5 Mg Tablet.) 10 mg PO DAILY PRN PRN Reason: severe Constipation Bupropion HCl (Bupropion Hcl Xl 150 Mg Tab.Er.24h) 450 mg PO DAILY [facility] Last Admin: 04/16/25 10:07 Dose: 450 mg Docusate Sodium (Docusate Sodium 100 Mg Capsule) 100 mg PO BID [facility] Last Admin: 04/16/25 20:28 Dose: 100 mg Hydroxyzine HCl (Hydroxyzine Hcl 25 Mg Tablet) 25 mg PO Q6H PRN PRN Reason: mild anxiety Last Admin: 03/26/25 23:24 Dose: 25 mg Lurasidone HCl (Lurasidone Hcl 80 Mg Tablet) 80 mg PO DAILY@1700 [facility] Last Admin: 04/16/25 17:18 Dose: 80 mg Lurasidone HCl (Lurasidone Hcl 20 Mg Tablet) 20 mg PO DAILY@1700 [facility] Last Admin: 04/16/25 17:19 Dose: 20 mg Magnesium Hydroxide (Milk Of Magnesia 30 Ml Oral.Susp) 30 ml PO DAILY PRN PRN Reason: Constipation Last Admin: 04/13/25 08:27 Dose: 30 ml Modafinil (Modafinil 100 Mg Tablet) 100 mg PO DAILY [facility] Last Admin: 04/16/25 10:08 Dose: 100 mg Nicotine (Nicotine 21 Mg Patch.Td24) 21 mg TRANSDERMA DAILY PRN PRN Reason: nicotine craving Nicotine Polacrilex (Nicotine Polacrilex 2 Mg Gum) 2 mg BUCCAL Q2H PRN PRN Reason: Nicotine Cravings Olanzapine (Olanzapine 5 Mg Tablet) 5 mg PO BID PRN PRN Reason: agitation Polyethylene Glycol (Polyethylene Glycol 3350 17 Gm Powd.Pack) 17 gm PO DAILY [facility] Last Admin: 04/16/25 10:09 Dose: Not Given Senna (Sennosides 8.6 Mg Tablet) 17.2 mg PO BEDTIME [facility] Last Admin: 04/16/25 20:28 Dose: 17.2 mg Trazodone HCl (Trazodone Hcl 50 Mg Tablet) 50 mg PO BEDTIME MRX1 PRN PRN Reason: Insomnia Last Admin: 04/05/25 23:14 Dose: 50 mg Allergies Allergies Allergy/AdvReac Type Severity Reaction Status Date / Time pumpkin Allergy Unknown Unknown Verified 12/24/24 12:26 Assessment & Plan Assessment & Plan (1) Bipolar disorder: Status: Acute Code(s): F31.9 - Bipolar disorder, unspecified (2) JUVENTINO (acute kidney injury): Status: Acute Code(s): N17.9 - Acute kidney failure, unspecified (3) CVA (cerebral vascular accident): Status: Acute Code(s): I63.9 - Cerebral infarction, unspecified (4) Abnormal head CT: Status: Acute Code(s): R93.0 - Abnormal findings on diagnostic imaging of skull and head, not elsewhere classified Plan 03/27: feels latuda 120 has been helpful. however, remains depressed. add wellbutrin XL 150 daily for depression, plan to increase to 300 mg daily in 3 days. may also consider ECT due to lack of improvement despite numerous recent hospitalizations + lethality of suicide attempts + recent self-abnegating behaviors. 03/28: no change in presentation, no requests or complaints. started wellbutrin 150 today. continue current mgmt 03/29/25: Slept well, no issues with appetite. Observed out on the unit, attended groups, engaging. Reports depression and 03/21, denies anxiety. Constricted affect, congruent with mood. Denies safety concerns. Compliant with medications. Denies side effects from Wellbutrin. Continue to encourage groups. 03/30/25: Patient slept for 6 hours, was medication compliant. He attended 2 groups yesterday, however today he is more isolated, in bed a lot more time, declines a couple groups. Reports depressed but no anxiety, flat affect, depressed, but cooperative during one-to-one assessment. He is receptive with the plan of Wellbutrin increased up to 300 mg for depression. Reports passive SI, denies plan or intention. Denies other safety concerns. Encourage patient to go to groups and shower daily. Increase Wellbutrin XL to 300 mg daily for depression. He reported that he has bipolar type II. 03/31: Laying in bed. keeping to self. showered. patient reports feeling depressed ; pt stated, I'm not having a good day. I don't want to do anything . flat affect. denies SI/HI/VH/AH. Per nursing, slept 8 hours. encouraged to attend groups. continue current tx plan. 04/01/25: Patient slept for 8 hours, poor meal intake yesterday but was medication compliant. Denies side effects. When asked about if he has poor appetite as he ate only 50 of breakfast, and 25 for lunch and not eating dinner, he said because I did not do the menu, so I got what I do not like . He shower yesterday, continued to reports depression 03/21. Denied anxiety. He does not feel any difference from Wellbutrin 150 when and when it was increased up to 300 mg. Denies SI/SIB/HI/AVH, isolative self, he plans to attend groups today. This provider spoke with patient in length regarding medication trials. Per his report, has been trying so many antidepressants they just do not work, and continued to be depressed. Some of them are Zoloft, Paxil, Effexor, Celexa, Prozac, Cymbalta, Lexapro. He also having history of taking Zyprexa more than 20 years ago due to hearing voices. Then the voices was calm. He never has a take it again after. History of Abilify but not sure if it is working as he can not recall. Regarding ADLs: He said that he had food at the skilled nursing twice a day, but he is not showering for many days despite the fact that staff asked him to do so I just do not care about being clean . Reports very low energy, low motivation, been increased suicidal thoughts and depression. He used to love music and reading but not interested in doing anything like that anymore. Reported that he had gastric sleeve surgery back in August 2023 which he lost 230 lb. He weight 447 lb prior to the surgery. He identified that after the surgery he has been more depressed slowly over months. There was a time that he wanted to starve myself so I can when asked is that you that he has stopped eating at home. He also identified that he feel more depressed after surgery as he is not able to over eating like he did before. Family mental health illnesses: Reports that who both of his parents was depressed. Mom 11 years ago. 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 History of ECTs: Reports he had history of ECTs in 2010 when he was at in [facility].He felt worse after the treatment everything seems like a dream . He clarified that immediately after the treatment he feel that way which could be a side effects of ECT but not permanent. Educate patient on possible side effects ECTs. Patient denies having seizure during ECTs treatment, no seizure history no cardiac conditions/disease history. Reports history of hypertension, but not anymore. He also has been admitted to different hospitals for psychiatric admissions in the past couple of months. Reports staying at [facility] in December for a month. [facility] in the area names [facility]) in October for another month. Per email from his OP team- clinical director at [facility], they also express concerns of patient's conditions. It is noted that their concerns are very consistent with patient' report here on the unit. He also has been admitted to different hospitals for psychiatric admissions in the past couple of months. Reports staying at [facility] in December for a month. [facility] in the area names [facility]) in October for another month. Per email from his OP team- clinical director at [facility], they also express concerns of patient's conditions. It is noted that their concerns are very consistent with patient' report here on the unit. Alfredito has been in and out on inpatient level of care since October of this year, I believe every month, for a majority of the time. He was recently discharged from [facility] after a 1 month stay and within two hours of returning home wanted to return to the hospital, saying he was unwell, and within one day was sectioned by [facility], which is how he ended up with you now. He has been coming home and intentionally starving himself, even not eating for up to 1 week. We have known Alfredito for years and since this started in October, we have seen no significant improvement in his mental health or a return to baseline. In fact, we are observing his case as consistent with failure to thrive. We have been asking for him to be inpatient at [facility] or with you at [facility] for some time in order for him to be potentially considered for ECT level of treatment, if deemed appropriate. Multiple medication trials failture to target depressive symptoms. He will be a good candidate to get trial ECT treatment in combination with current medication regimens. Patient also agrees with the plan. We would start the treatment as soon as possible. Will discuss the case with in house psychiatrist-Dr. Ward to prepare for ECT treatment. Hope to start early next week. 04/02: Laying in bed. keeping to self. Patient continues to report feeling depressed; pt stated, I feel about the same. I spoke with the other provider and agreed to do ECT . He reports sleeping well. denies SI/HI/VH/AH. Encouraged to attend groups and shower. Continue current tx plan. 04/03: no changes- just started wellbutrin 04/04: no changes 04/05/25: report anxiety a 2-310 but still 8 for depression. No change since started Wellbutrin. He agrees to get Wellbutrin up to 450mg daily for depression. Isolative in room, staring up to the ceiling. Discuss with patient of option to start on Intuniv for severe depression. Patient declines it at this current time but agree to see Welbutrin increased would be helpful. He agrees with ECT. Encourage groups, he says he was at art group out to dinning area but there are too much so he went back to his room. Report not many groups offered over the weekends. 04/06/25: Patient slept for 6 hours, have a sleep study done last night. Reported that he did not sleep well. Appetite is okay. Mood is depressed 03/21, denies anxiety today. Denies suicidal thoughts, but reports he has passive SI yesterday intrusive, just do not Wanna live anymore . Denies hallucinations. Address with patient of why he having bowel movement in the shower. He said it is just one episode. Reports he feel constipated. Agree with Colace. He also inform regarding the ECT which was approved by the insurance. He compliant with medication, however reports he has not feeling any difference in terms of depression at since started on Wellbutrin. Encourage groups attendance. Observe him later on during the day reading at a table in dining area. Colace 100mg BID for constipation. ECT consult placed: Patient may be seen by tomorrow by Dr. Ward. Procedure done preparing for the ECT: Head CT scan negative, EKG normal sinus rhythm, Incomplete right bundle branch block. Borderline ECG_ no change when compare to previous EKG. Unremarkable CBC with diff. 04/07/25: Per hospitalist note: ECT risk stratification Patient without previous problems with anesthesia, has previously undergone ECT RCRI 0 points, no further cardiac workup or treatment indicated at this time EKG showed QT interval WNL, no evidence of ischemic changes Based on stated PMH, HPI, and physical exam, there are no apparent medical contraindications to the planned procedure. Patient is complaining of pelvic discomfort and constipation. We will add therapy with Senokot, MiraLax and obtain urinalysis to assess for urinary tract infection. Continue treatment with atorvastatin and aspirin for history of stroke and hyperlipidemia. 04/07/25: Patient compliant with medication, reports due to the pain abdominal, he could not sleep well last night. Continued to reports depressions 8/10, anxiety 4/10 today related to the pain. Denies suicidal thoughts or voices, isolated. Shower yesterday. Review with patient test need to be done prior to having ECT. Patient met with Dr. Ward and hospitalist for ECT clearance. Due to the pain, constipated, more laxative ordered today. Also UA other by hospitalist to rule out any infection. He is flat, low energy, low motivation, withdrawal, in room mostly, but come out to other rooms to talk to the providers 04/08/25: Patient slept for 8 hours, compliant with medications, denies side effect. Met with him in his room, reported that he slept better last night, having good bowel movement, denies diarrhea is. Informed him regarding the labs work/and UA that was negative to rule out UTI. Denies pain. Explained to patient regarding pre ECT procedures/test to prepare for the day that he going to start. We will start ECT on Saturday. Per Dr. Ward, we will taper down on Latuda, start him on Modafinil low dose to help with severe depression. Continued to reports moderate to severe depression. Denies suicidal thoughts or hallucinations. 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 He denied any significant or excessive drug exposure. I do not find any focal lesion, acute or chronic, suggestive of stroke. There was no contraindication to treatment with ECT. Otherwise treatment of this condition is supportive, symptomatic and conservative Taper down on Latuda from 120 down to 100 mg daily at 17:00 for mood. Start on Modefinil 100ng daily for severe depression, low energy, poor concentration, poor motivation. ECT will be scheduled next week on Saturday. We will received treatment for Saturday/Saturday and Saturday. 04/09/25: Patient denies pain, normal bowel movement, slept well and compliant with medications. Denies side effects. Denies suicidal thoughts or hallucinations but reports mild on anxiety and moderate to severe depression. Patient appeared to be disheveled. Encourage patient to be out of bed in attended to groups included OT groups which observe he is visible in day room after the conversation. The OT will do the [place] for pre ECT next week on Saturday prior the ECT. He started modafinil 50 mg this morning. Indication and side effects explained to patient. Patient is receptive with the plan. Correction: Modefinill 50mg daily. MOCA scheduled next week prior to ECT. 04/10:Laying in bed most of morning. Patient continues to report feeling depressed. He reports looking forward to ECT; pt stated, I think it will be a positive step to get ECT . denies SI/HI/VH/AH. Encouraged to get out of bed. Continue tx plan 04/11: Per nursing, pt did not get out of bed yesterday. Observed laying in bed this morning; encouraged to attend groups and shower. Patient continues to report feeling depressed. denies SI/HI/VH/AH. Encouraged to get out of bed. Continue tx plan. 04/12: continue current tx plan 04/13: stably depressed. PMR. start ECT tomorrow, otherwise continue current mgmt. NPO past MN. 04/14/25: got his first ECT treatment this afternoon. Patient slept for 6 hours, was medication compliant. However, this morning due to the delay of the ECT treatment, he was not happy about the delay into the afternoon. He appeared to be frustrated, irritable, and not cooperative with this provider I do not want to talk to anyone . I am done talking . I do not care when asked his last bowel movement. Per nursing, patient denies suicidal thoughts, other safety concerns. Reports he has no bowel movement x4 days. Medication this morning was held until after the ECT. He also was given citrate magnesium x1. Pending effect. 04/15: made bowel movement. ECT #2 tomorrow. no change in mood or presentation as of today. T/C increasing modafanil to 200 mg sometime next week. 04/16: completed ECT without incident. no FLOWERS today. no change in presentation otherwise. continue current mgmt. ECT #3 saturday. 04/17/2025: No changes. ECT # 3 Saturday04/19/2025 Reason for continued inpatient stay Substantial Risk for: inability to function Time Spent With Patient Time: Total time managing care of this patient today ____ minutes.
[2025-04-17 08:14] VITALS: BP 114/67; PULSE 65; RESP 18; TEMP 36.3; O2SAT 96
[2025-04-17] MEDS: Aspirin Enteric Coated 81 MG TABLET.DR PO (08:42)
[2025-04-17] MEDS: buPROPion HCl XL 150 MG TAB.ER.24H 450 MG PO (08:42)
[2025-04-17] MEDS: Milk of Magnesia 30 ML ORAL.SUSP PO (10:24)
[2025-04-17 20:00] VITALS: BP 126/70; PULSE 65; RESP 16; TEMP 36.9; O2SAT 98
[2025-04-18 07:58] VITALS: BP 116/72; PULSE 63; RESP 18; TEMP 36.7; O2SAT 97
[2025-04-18] MEDS: Aspirin Enteric Coated 81 MG TABLET.DR PO (08:43)
[2025-04-18] MEDS: buPROPion HCl XL 150 MG TAB.ER.24H 450 MG PO (08:44)
--- NOTE | 2025-04-18 11:38 | HO.PSYCHPN ---
Subjective Subjective Date of Service: 04/18/25 Reason For Visit: SI Interim History: in room. Isolative. Remains depressed. excessive sleeping. Poor appetite. Self-care limited. ECT 3rd treatment tomorrow. Medication Compliance: Yes Side effects from medications: No Attending Groups: No Review of Systems Acute medical concerns: No Review of Systems Review of Systems Constipation improving Mental Status Exam Mental Status Exam Narrative: Appearance: Casually dressed, unkempt, disheveled Behavior: Calm and cooperative, PMR Eye contact is appropriate Speech: Normal loudness. slowed, flattened prosody. Thought process logical and goal-directed Thought content: On treatment. Mood: depressed Affect: constricted, hypo-intense SI: chronic, no plan HI: none expressed VH/AH: none expressed Delusions: None expressed Insight/judgment: impaired Diagnostics Vital Signs (24Hr): Vital Signs - 24 hr 04/17/25 20:00 04/18/25 07:58 Temperature 98.4 F 98.0 F Pulse Rate 65 63 Respiratory Rate 16 18 Blood Pressure 126/70 116/72 Pulse Oximetry 98 97 Oxygen Delivery Method Room Air Room Air BMI result Body Mass Index 34.5 Labs 04/06/25 14:28 04/06/25 14:28 Imaging Radiology Impressions: ITS Impressions Head CT 04/06/25 13:54 IMPRESSION: No acute intracranial hemorrhage. Bifrontal bitemporal lobes atrophy. Electronically signed by: Roque Guillen MD 04/06/2025 02:15 PM EDT Medications Medications Current Medications Acetaminophen (Acetaminophen 325 Mg Tablet) 650 mg PO Q6H PRN PRN Reason: Headache/Pain, Scale 1-10 Last Admin: 04/14/25 20:25 Dose: 650 mg Al Hydroxide/Mg Hydroxide (Magnesium Hydrox/Alum Hydrox 30 Ml Oral.Susp) 30 ml PO Q6H PRN PRN Reason: Heartburn/Nausea Aspirin (Aspirin Enteric Coated 81 Mg Tablet.) 81 mg PO DAILY [facility] Last Admin: 04/18/25 08:43 Dose: 81 mg Atorvastatin Calcium (Atorvastatin Calcium 20 Mg Tablet) 20 mg PO BEDTIME [facility] Last Admin: 04/17/25 20:20 Dose: 20 mg Bisacodyl (Bisacodyl 5 Mg Tablet.) 10 mg PO DAILY PRN PRN Reason: severe Constipation Last Admin: 04/17/25 10:24 Dose: 10 mg Bupropion HCl (Bupropion Hcl Xl 150 Mg Tab.Er.24h) 450 mg PO DAILY [facility] Last Admin: 04/18/25 08:44 Dose: 450 mg Docusate Sodium (Docusate Sodium 100 Mg Capsule) 100 mg PO BID [facility] Last Admin: 04/18/25 08:44 Dose: 100 mg Hydroxyzine HCl (Hydroxyzine Hcl 25 Mg Tablet) 25 mg PO Q6H PRN PRN Reason: mild anxiety Last Admin: 03/26/25 23:24 Dose: 25 mg Lurasidone HCl (Lurasidone Hcl 80 Mg Tablet) 80 mg PO DAILY@1700 [facility] Last Admin: 04/17/25 17:03 Dose: 80 mg Lurasidone HCl (Lurasidone Hcl 20 Mg Tablet) 20 mg PO DAILY@1700 [facility] Last Admin: 04/17/25 17:03 Dose: 20 mg Magnesium Hydroxide (Milk Of Magnesia 30 Ml Oral.Susp) 30 ml PO DAILY PRN PRN Reason: Constipation Last Admin: 04/17/25 10:24 Dose: 30 ml Modafinil (Modafinil 100 Mg Tablet) 100 mg PO DAILY [facility] Last Admin: 04/18/25 08:44 Dose: 100 mg Nicotine (Nicotine 21 Mg Patch.Td24) 21 mg TRANSDERMA DAILY PRN PRN Reason: nicotine craving Nicotine Polacrilex (Nicotine Polacrilex 2 Mg Gum) 2 mg BUCCAL Q2H PRN PRN Reason: Nicotine Cravings Olanzapine (Olanzapine 5 Mg Tablet) 5 mg PO BID PRN PRN Reason: agitation Polyethylene Glycol (Polyethylene Glycol 3350 17 Gm Powd.Pack) 17 gm PO DAILY [facility] Last Admin: 04/18/25 08:43 Dose: 17 gm Senna (Sennosides 8.6 Mg Tablet) 17.2 mg PO BEDTIME [facility] Last Admin: 04/17/25 20:20 Dose: 17.2 mg Trazodone HCl (Trazodone Hcl 50 Mg Tablet) 50 mg PO BEDTIME MRX1 PRN PRN Reason: Insomnia Last Admin: 04/05/25 23:14 Dose: 50 mg Allergies Allergies Allergy/AdvReac Type Severity Reaction Status Date / Time pumpkin Allergy Unknown Unknown Verified 12/24/24 12:26 Assessment & Plan Assessment & Plan (1) Bipolar disorder: Status: Acute Code(s): F31.9 - Bipolar disorder, unspecified (2) JUVENTINO (acute kidney injury): Status: Acute Code(s): N17.9 - Acute kidney failure, unspecified (3) CVA (cerebral vascular accident): Status: Acute Code(s): I63.9 - Cerebral infarction, unspecified (4) Abnormal head CT: Status: Acute Code(s): R93.0 - Abnormal findings on diagnostic imaging of skull and head, not elsewhere classified Plan 03/27: feels latuda 120 has been helpful. however, remains depressed. add wellbutrin XL 150 daily for depression, plan to increase to 300 mg daily in 3 days. may also consider ECT due to lack of improvement despite numerous recent hospitalizations + lethality of suicide attempts + recent self-abnegating behaviors. 03/28: no change in presentation, no requests or complaints. started wellbutrin 150 today. continue current mgmt 03/29/25: Slept well, no issues with appetite. Observed out on the unit, attended groups, engaging. Reports depression and 03/21, denies anxiety. Constricted affect, congruent with mood. Denies safety concerns. Compliant with medications. Denies side effects from Wellbutrin. Continue to encourage groups. 03/30/25: Patient slept for 6 hours, was medication compliant. He attended 2 groups yesterday, however today he is more isolated, in bed a lot more time, declines a couple groups. Reports depressed but no anxiety, flat affect, depressed, but cooperative during one-to-one assessment. He is receptive with the plan of Wellbutrin increased up to 300 mg for depression. Reports passive SI, denies plan or intention. Denies other safety concerns. Encourage patient to go to groups and shower daily. Increase Wellbutrin XL to 300 mg daily for depression. He reported that he has bipolar type II. 03/31: Laying in bed. keeping to self. showered. patient reports feeling depressed ; pt stated, I'm not having a good day. I don't want to do anything . flat affect. denies SI/HI/VH/AH. Per nursing, slept 8 hours. encouraged to attend groups. continue current tx plan. 04/01/25: Patient slept for 8 hours, poor meal intake yesterday but was medication compliant. Denies side effects. When asked about if he has poor appetite as he ate only 50 of breakfast, and 25 for lunch and not eating dinner, he said because I did not do the menu, so I got what I do not like . He shower yesterday, continued to reports depression 03/21. Denied anxiety. He does not feel any difference from Wellbutrin 150 when and when it was increased up to 300 mg. Denies SI/SIB/HI/AVH, isolative self, he plans to attend groups today. This provider spoke with patient in length regarding medication trials. Per his report, has been trying so many antidepressants they just do not work, and continued to be depressed. Some of them are Zoloft, Paxil, Effexor, Celexa, Prozac, Cymbalta, Lexapro. He also having history of taking Zyprexa more than 20 years ago due to hearing voices. Then the voices was calm. He never has a take it again after. History of Abilify but not sure if it is working as he can not recall. Regarding ADLs: He said that he had food at the prison twice a day, but he is not showering for many days despite the fact that staff asked him to do so I just do not care about being clean . Reports very low energy, low motivation, been increased suicidal thoughts and depression. He used to love music and reading but not interested in doing anything like that anymore. Reported that he had gastric sleeve surgery back in August 2023 which he lost 230 lb. He weight 447 lb prior to the surgery. He identified that after the surgery he has been more depressed slowly over months. There was a time that he wanted to starve myself so I can when asked is that you that he has stopped eating at home. He also identified that he feel more depressed after surgery as he is not able to over eating like he did before. Family mental health illnesses: Reports that who both of his parents was depressed. Mom 11 years ago. 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 History of ECTs: Reports he had history of ECTs in 2010 when he was at in [facility].He felt worse after the treatment everything seems like a dream . He clarified that immediately after the treatment he feel that way which could be a side effects of ECT but not permanent. Educate patient on possible side effects ECTs. Patient denies having seizure during ECTs treatment, no seizure history no cardiac conditions/disease history. Reports history of hypertension, but not anymore. He also has been admitted to different hospitals for psychiatric admissions in the past couple of months. Reports staying at [facility] in December for a month. [facility] hospital in the area names [facility]) in October for another month. Per email from his OP team- clinical director at [facility], they also express concerns of patient's conditions. It is noted that their concerns are very consistent with patient' report here on the unit. He also has been admitted to different hospitals for psychiatric admissions in the past couple of months. Reports staying at [facility] in December for a month. [facility] hospital in the area names [facility]) in October for another month. Per email from his OP team- clinical director at [facility], they also express concerns of patient's conditions. It is noted that their concerns are very consistent with patient' report here on the unit. Alfredito has been in and out on inpatient level of care since October of this year, I believe every month, for a majority of the time. He was recently discharged from [facility] after a 1 month stay and within two hours of returning home wanted to return to the hospital, saying he was unwell, and within one day was sectioned by [facility] Gabriel, which is how he ended up with you now. He has been coming home and intentionally starving himself, even not eating for up to 1 week. We have known Alfredito for years and since this started in October, we have seen no significant improvement in his mental health or a return to baseline. In fact, we are observing his case as consistent with failure to thrive. We have been asking for him to be inpatient at [facility] or with you at [facility] for some time in order for him to be potentially considered for ECT level of treatment, if deemed appropriate. Multiple medication trials failture to target depressive symptoms. He will be a good candidate to get trial ECT treatment in combination with current medication regimens. Patient also agrees with the plan. We would start the treatment as soon as possible. Will discuss the case with in house psychiatrist-Dr. Ward to prepare for ECT treatment. Hope to start early next week. 04/02: Laying in bed. keeping to self. Patient continues to report feeling depressed; pt stated, I feel about the same. I spoke with the other provider and agreed to do ECT . He reports sleeping well. denies SI/HI/VH/AH. Encouraged to attend groups and shower. Continue current tx plan. 04/03: no changes- just started wellbutrin 04/04: no changes 04/05/25: report anxiety a 2-3/10 but still 8/10 for depression. No change since started Wellbutrin. He agrees to get Wellbutrin up to 450mg daily for depression. Isolative in room, staring up to the ceiling. Discuss with patient of option to start on Intuniv for severe depression. Patient declines it at this current time but agree to see Welbutrin increased would be helpful. He agrees with ECT. Encourage groups, he says he was at art group out to dinning area but there are too much so he went back to his room. Report not many groups offered over the weekends. 04/06/25: Patient slept for 6 hours, have a sleep study done last night. Reported that he did not sleep well. Appetite is okay. Mood is depressed 03/21, denies anxiety today. Denies suicidal thoughts, but reports he has passive SI yesterday intrusive, just do not Wanna live anymore . Denies hallucinations. Address with patient of why he having bowel movement in the shower. He said it is just one episode. Reports he feel constipated. Agree with Colace. He also inform regarding the ECT which was approved by the insurance. He compliant with medication, however reports he has not feeling any difference in terms of depression at since started on Wellbutrin. Encourage groups attendance. Observe him later on during the day reading at a table in dining area. Colace 100mg BID for constipation. ECT consult placed: Patient may be seen by tomorrow by Dr. Ward. Procedure done preparing for the ECT: Head CT scan negative, EKG normal sinus rhythm, Incomplete right bundle branch block. Borderline ECG_ no change when compare to previous EKG. Unremarkable CBC with diff. 04/07/25: Per hospitalist note: ECT risk stratification Patient without previous problems with anesthesia, has previously undergone ECT RCRI 0 points, no further cardiac workup or treatment indicated at this time EKG showed QT interval WNL, no evidence of ischemic changes Based on stated PMH, HPI, and physical exam, there are no apparent medical contraindications to the planned procedure. Patient is complaining of pelvic discomfort and constipation. We will add therapy with Senokot, MiraLax and obtain urinalysis to assess for urinary tract infection. Continue treatment with atorvastatin and aspirin for history of stroke and hyperlipidemia. 04/07/25: Patient compliant with medication, reports due to the pain abdominal, he could not sleep well last night. Continued to reports depressions 8/10, anxiety 4/10 today related to the pain. Denies suicidal thoughts or voices, isolated. Shower yesterday. Review with patient test need to be done prior to having ECT. Patient met with Dr. Ward and hospitalist for ECT clearance. Due to the pain, constipated, more laxative ordered today. Also UA other by hospitalist to rule out any infection. He is flat, low energy, low motivation, withdrawal, in room mostly, but come out to other rooms to talk to the providers 04/08/25: Patient slept for 8 hours, compliant with medications, denies side effect. Met with him in his room, reported that he slept better last night, having good bowel movement, denies diarrhea is. Informed him regarding the labs work/and UA that was negative to rule out UTI. Denies pain. Explained to patient regarding pre ECT procedures/test to prepare for the day that he going to start. We will start ECT on Saturday. Per Dr. Ward, we will taper down on Latuda, start him on Modafinil low dose to help with severe depression. Continued to reports moderate to severe depression. Denies suicidal thoughts or hallucinations. 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 He denied any significant or excessive drug exposure. I do not find any focal lesion, acute or chronic, suggestive of stroke. There was no contraindication to treatment with ECT. Otherwise treatment of this condition is supportive, symptomatic and conservative Taper down on Latuda from 120 down to 100 mg daily at 17:00 for mood. Start on Modefinil 100ng daily for severe depression, low energy, poor concentration, poor motivation. ECT will be scheduled next week on Saturday. We will received treatment for Saturday/Saturday and Saturday. 04/09/25: Patient denies pain, normal bowel movement, slept well and compliant with medications. Denies side effects. Denies suicidal thoughts or hallucinations but reports mild on anxiety and moderate to severe depression. Patient appeared to be disheveled. Encourage patient to be out of bed in attended to groups included OT groups which observe he is visible in day room after the conversation. The OT will do the [place] for pre ECT next week on Saturday prior the ECT. He started modafinil 50 mg this morning. Indication and side effects explained to patient. Patient is receptive with the plan. Correction: Modefinill 50mg daily. MOCA scheduled next week prior to ECT. 04/10:Laying in bed most of morning. Patient continues to report feeling depressed. He reports looking forward to ECT; pt stated, I think it will be a positive step to get ECT . denies SI/HI/VH/AH. Encouraged to get out of bed. Continue tx plan 04/11: Per nursing, pt did not get out of bed yesterday. Observed laying in bed this morning; encouraged to attend groups and shower. Patient continues to report feeling depressed. denies SI/HI/VH/AH. Encouraged to get out of bed. Continue tx plan. 04/12: continue current tx plan 04/13: stably depressed. PMR. start ECT tomorrow, otherwise continue current mgmt. NPO past MN. 04/14/25: got his first ECT treatment this afternoon. Patient slept for 6 hours, was medication compliant. However, this morning due to the delay of the ECT treatment, he was not happy about the delay into the afternoon. He appeared to be frustrated, irritable, and not cooperative with this provider I do not want to talk to anyone . I am done talking . I do not care when asked his last bowel movement. Per nursing, patient denies suicidal thoughts, other safety concerns. Reports he has no bowel movement x4 days. Medication this morning was held until after the ECT. He also was given citrate magnesium x1. Pending effect. 04/15: made bowel movement. ECT #2 tomorrow. no change in mood or presentation as of today. T/C increasing modafanil to 200 mg sometime next week. 04/16: completed ECT without incident. no FLOWERS today. no change in presentation otherwise. continue current mgmt. ECT #3 saturday. 04/17/2025: No changes. ECT # 3 Saturday04/19/202504/18: no changes Reason for continued inpatient stay Substantial Risk for: inability to function Time Spent With Patient Time: Total time managing care of this patient today ____ minutes.
[2025-04-18 20:01] VITALS: BP 127/69; PULSE 60; RESP 16; TEMP 37.4; O2SAT 98
[2025-04-18 21:56] VITALS: TEMP 36.7
[2025-04-19] VITALS (12 sets, daily range): BP systolic 112–154; BP diastolic 56–99; PULSE 64–82; RESP 12–18; TEMP 36.1–36.9; O2SAT 96–100
--- NOTE | 2025-04-19 06:41 | HO.ANESPROP2 ---
HPI - Anesthesia Eval Consult details Narrative: for ECT PMFSH Active Problems Active Problems: All Active Problems CVA (cerebral vascular accident) (Acute) Abnormal head CT (Acute) JUVENTINO (acute kidney injury) (Acute) Depression (Acute) Bipolar disorder (Acute) H/O gastric sleeve (Acute) Past Medical History Medical History Obesity LUIS (obstructive sleep apnea) HLD (hyperlipidemia) HTN (hypertension) CVA (cerebral vascular accident) Functional capacity: independent ambulation Family History Family history of problems with anesthesia: No Surgical History History of Problems with Anesthesia: No Social History Social History Household Members: Other Household Members Other:: transitional housing Housing: Other Do you presently have visiting nurse or other home services: No Patient Tobacco Use Status: Never used Tobacco Second Hand Smoke Exposure: Yes Currently Displaying Signs/Symptoms of Drug Intoxication Withdrawal: No Have you been hit, kicked, punched, or otherwise hurt by someone within the past year? If so, by whom?: No Do you feel safe in your current relationship?: No Current Relationship Is there a partner from a previous relationship who is making you feel unsafe now?: No Are you made to feel afraid or neglected: No Advance Directives: No Advance Directives Information Provided: No Do you have thoughts of harming others: None Do you have a plan to hurt others: No Plan Recently lost weight without trying: No Eating poorly because of decreased appetite: No Nutrition Risks: No Nutritional Risk Poor oral hygiene: Yes (very dry scalp) service: No Sexual orientation: Straight/Heterosexual Meds Allergies Allergy/AdvReac Type Severity Reaction Status Date / Time pumpkin Allergy Unknown Unknown Verified 12/24/24 12:26 Active Medications: Current Medications Acetaminophen (Acetaminophen 325 Mg Tablet) 650 mg PO Q6H PRN PRN Reason: Headache/Pain, Scale 1-10 Last Admin: 04/14/25 20:25 Dose: 650 mg Al Hydroxide/Mg Hydroxide (Magnesium Hydrox/Alum Hydrox 30 Ml Oral.Susp) 30 ml PO Q6H PRN PRN Reason: Heartburn/Nausea Aspirin (Aspirin Enteric Coated 81 Mg Tablet.Dr) 81 mg PO DAILY JENNIFER Last Admin: 04/18/25 08:43 Dose: 81 mg Atorvastatin Calcium (Atorvastatin Calcium 20 Mg Tablet) 20 mg PO BEDTIME [facility] Last Admin: 04/18/25 21:54 Dose: 20 mg Bisacodyl (Bisacodyl 5 Mg Tablet.Dr) 10 mg PO DAILY PRN PRN Reason: severe Constipation Last Admin: 04/17/25 10:24 Dose: 10 mg Bupropion HCl (Bupropion Hcl Xl 150 Mg Tab.Er.24h) 450 mg PO DAILY [facility] Last Admin: 04/18/25 08:44 Dose: 450 mg Docusate Sodium (Docusate Sodium 100 Mg Capsule) 100 mg PO BID [facility] Last Admin: 04/18/25 21:53 Dose: 100 mg Hydroxyzine HCl (Hydroxyzine Hcl 25 Mg Tablet) 25 mg PO Q6H PRN PRN Reason: mild anxiety Last Admin: 03/26/25 23:24 Dose: 25 mg Lurasidone HCl (Lurasidone Hcl 80 Mg Tablet) 80 mg PO DAILY@1700 [facility] Last Admin: 04/18/25 17:06 Dose: 80 mg Lurasidone HCl (Lurasidone Hcl 20 Mg Tablet) 20 mg PO DAILY@1700 [facility] Last Admin: 04/18/25 17:06 Dose: 20 mg Magnesium Hydroxide (Milk Of Magnesia 30 Ml Oral.Susp) 30 ml PO DAILY PRN PRN Reason: Constipation Last Admin: 04/17/25 10:24 Dose: 30 ml Modafinil (Modafinil 100 Mg Tablet) 100 mg PO DAILY [facility] Last Admin: 04/18/25 08:44 Dose: 100 mg Nicotine (Nicotine 21 Mg Patch.Td24) 21 mg TRANSDERMA DAILY PRN PRN Reason: nicotine craving Nicotine Polacrilex (Nicotine Polacrilex 2 Mg Gum) 2 mg BUCCAL Q2H PRN PRN Reason: Nicotine Cravings Olanzapine (Olanzapine 5 Mg Tablet) 5 mg PO BID PRN PRN Reason: agitation Polyethylene Glycol (Polyethylene Glycol 3350 17 Gm Powd.Pack) 17 gm PO DAILY [facility] Last Admin: 04/18/25 08:43 Dose: 17 gm Senna (Sennosides 8.6 Mg Tablet) 17.2 mg PO BEDTIME [facility] Last Admin: 04/18/25 21:54 Dose: 17.2 mg Trazodone HCl (Trazodone Hcl 50 Mg Tablet) 50 mg PO BEDTIME MRX1 PRN PRN Reason: Insomnia Last Admin: 04/05/25 23:14 Dose: 50 mg Exam Height,Weight and Vital Signs: Height 5 ft 9 in Weight 233 lb 6 oz Last Vital Signs Temp 97 F 04/19/25 06:15 Pulse 76 04/19/25 06:15 Resp 12 04/19/25 06:15 BP 115/80 04/19/25 06:15 Pulse Ox 96 04/19/25 06:15 O2 Del Method Room Air 04/19/25 06:15 O2 Flow Rate 6 04/14/25 13:46 Pertinent Lab Results Pertinent Lab Results: Laboratory Tests 03/26/25 03/26/25 03/27/25 14:42 15:45 08:31 WBC 9.9 RBC 4.34 L Hgb 12.8 L Hct 38.3 L MCV 88.2 MCH 29.5 MCHC 33.4 RDW 14.6 Plt Count 191 MPV 10.6 Immature Gran % (Auto) 0.2 Neut % (Auto) 61.2 Lymph % (Auto) 28.9 Faulk % (Auto) 8.8 Eos % (Auto) 0.7 Baso % (Auto) 0.2 Lymph # (Auto) 2.9 Faulk # (Auto) 0.9 Eos # (Auto) 0.1 Baso # (Auto) 0.0 Abs Immat Gran (auto) 0.02 Absolute Neuts (auto) 6.1 Absolute Nucleated RBC 0.000 Nucleated RBC % (auto) 0.0 Sodium 138 143 Potassium 4.4 4.2 Chloride 103 106 Carbon Dioxide 26 23 Anion Gap 13 18 BUN 18 H 16 Creatinine 1.55 H 1.19 Estim Creat Clear Calc 65.6 86.0 Estimated GFR 48 > 60 Random Glucose 93 78 Estimat Average Glucose 91 Hemoglobin A1c % 4.8 Calcium 9.0 9.0 Total Bilirubin 1.1 H AST 28 ALT 11 Alkaline Phosphatase 62 B-Natriuretic Peptide Total Protein 6.0 L Albumin 3.7 Triglycerides 66 Cholesterol 153 LDL Cholesterol, Calc 92 HDL Cholesterol 48 TSH 3.31 Free T4 1.09 Urine Color Yellow Urine Appearance Cloudy Urine pH 5.5 Ur Specific Bruce 1.015 Urine Protein 30 (1+) H Urine Glucose (UA) Negative Urine Ketones Negative Urine Blood Negative Urine Nitrite Negative Ur Leukocyte Esterase Trace H Urine RBC 0-2 Urine WBC 0-5 Ur Squamous Epith Cells 6-10 Urine Bacteria None Seen Hyaline Casts >20 Salicylates < 5.0 L Urine Opiates Screen Not Detected Ur Buprenorphine Scrn Not Detected Ur Oxycodone Screen Not Detected Urine Methadone Screen Not Detected Urine Fentanyl Screen Not Detected Acetaminophen < 3 Ur Barbiturates Screen Not Detected Ur Phencyclidine Scrn Not Detected Ur Amphetamines Screen Not Detected U Benzodiazepines Scrn Not Detected Urine Cocaine Screen Not Detected U Marijuana (THC) Screen Not Detected Ethyl Alcohol < 10 Influenza Type A (PCR) NEGATIVE Influenza Type B (PCR) NEGATIVE RSV RNA Qual (PCR) NEGATIVE SARS-CoV-2 RNA (RT-PCR) NEGATIVE 04/06/25 04/07/25 04/07/25 14:28 08:07 21:30 WBC 9.1 RBC 4.59 L Hgb 13.4 L Hct 40.9 L MCV 89.1 MCH 29.2 MCHC 32.8 RDW 14.0 Plt Count 303 D MPV 10.6 Immature Gran % (Auto) 0.4 Neut % (Auto) 58.1 Lymph % (Auto) 32.8 Faulk % (Auto) 6.4 Eos % (Auto) 2.1 Baso % (Auto) 0.2 Lymph # (Auto) 3.0 Faulk # (Auto) 0.6 Eos # (Auto) 0.2 Baso # (Auto) 0.0 Abs Immat Gran (auto) 0.04 H Absolute Neuts (auto) 5.3 Absolute Nucleated RBC 0.000 Nucleated RBC % (auto) 0.0 Sodium 143 Potassium 4.6 Chloride 105 Carbon Dioxide 28 Anion Gap 15 BUN 17 H Creatinine 1.35 Estim Creat Clear Calc 75.5 Estimated GFR 56 Random Glucose 96 Estimat Average Glucose Hemoglobin A1c % Calcium 9.4 Total Bilirubin 0.6 AST 26 ALT 23 Alkaline Phosphatase 66 B-Natriuretic Peptide Total Protein 6.4 L Albumin 3.9 Triglycerides Cholesterol LDL Cholesterol, Calc HDL Cholesterol TSH 2.42 Free T4 Urine Color Yellow Urine Appearance Clear Urine pH 6.0 Ur Specific Bruce 1.010 Urine Protein Negative Urine Glucose (UA) Negative Urine Ketones Negative Urine Blood Negative Urine Nitrite Negative Ur Leukocyte Esterase Negative Urine RBC Urine WBC Ur Squamous Epith Cells Urine Bacteria Hyaline Casts Salicylates Urine Opiates Screen Ur Buprenorphine Scrn Ur Oxycodone Screen Urine Methadone Screen Urine Fentanyl Screen Acetaminophen Ur Barbiturates Screen Ur Phencyclidine Scrn Ur Amphetamines Screen U Benzodiazepines Scrn Urine Cocaine Screen U Marijuana (THC) Screen Ethyl Alcohol Influenza Type A (PCR) Influenza Type B (PCR) RSV RNA Qual (PCR) SARS-CoV-2 RNA (RT-PCR) 04/10/25 09:18 WBC RBC Hgb Hct MCV MCH MCHC RDW Plt Count MPV Immature Gran % (Auto) Neut % (Auto) Lymph % (Auto) Faulk % (Auto) Eos % (Auto) Baso % (Auto) Lymph # (Auto) Faulk # (Auto) Eos # (Auto) Baso # (Auto) Abs Immat Gran (auto) Absolute Neuts (auto) Absolute Nucleated RBC Nucleated RBC % (auto) Sodium Potassium Chloride Carbon Dioxide Anion Gap BUN Creatinine Estim Creat Clear Calc Estimated GFR Random Glucose Estimat Average Glucose Hemoglobin A1c % Calcium Total Bilirubin AST ALT Alkaline Phosphatase B-Natriuretic Peptide < 10 Total Protein Albumin Triglycerides Cholesterol LDL Cholesterol, Calc HDL Cholesterol TSH Free T4 Urine Color Urine Appearance Urine pH Ur Specific Bruce Urine Protein Urine Glucose (UA) Urine Ketones Urine Blood Urine Nitrite Ur Leukocyte Esterase Urine RBC Urine WBC Ur Squamous Epith Cells Urine Bacteria Hyaline Casts Salicylates Urine Opiates Screen Ur Buprenorphine Scrn Ur Oxycodone Screen Urine Methadone Screen Urine Fentanyl Screen Acetaminophen Ur Barbiturates Screen Ur Phencyclidine Scrn Ur Amphetamines Screen U Benzodiazepines Scrn Urine Cocaine Screen U Marijuana (THC) Screen Ethyl Alcohol Influenza Type A (PCR) Influenza Type B (PCR) RSV RNA Qual (PCR) SARS-CoV-2 RNA (RT-PCR) Airway Mallampati Class: II TM Dist: <=3cm Neck ROM: Full Partial: Upper Heart: ok Lungs: ok Assessment and Plan Assessment Anesthesia Assessment: Anesthesia Plan Discussed and Chart Reviewed Final Anesthetic Review Family History of Problems with Anesthesia: No History of Problems with Anesthesia: No NPO: Yes ASA Class: III Final Preanesthetic Review: No Changes in Pt Med Stat, Meds/Allgs Chart Reviewed, Consent Obtained/Reviewed and Anes Risks/Benef Reviewed Patient Risk: Intermediate Procedure Risk: Intermediate Anesthetic Plan Anesthetic Plan: GA and Agree w/ Assess. and Plan Disposition: Standard PACU
--- NOTE | 2025-04-19 07:04 | MHC.SHP ---
Pre-Procedural Eval Section A - 24 Hr Update-Section A only Date of Service: 04/19/25 Changes since office visit: Yes Changes in Medication and Yes Patient answered all questions; No Cold of Flu in the past 2 weeks and No New Medical Problems The patient has been examined within 24 hours of the surgical procedure. The History & Physical has been completed within 30 days and I have reviewed it.: Yes Section B - Complete if H&P > 30 days Chief Complaint: SI Allergies: Allergies Allergy/AdvReac Type Severity Reaction Status Date / Time pumpkin Allergy Unknown Unknown Verified 12/24/24 12:26 Plan I have reviewed the history and physical and performed a pertinent physical examination on my patient. No changes have occurred unless specified. Time Spent With Patient Time: Total time managing care of this patient today ____ minutes.
--- NOTE | 2025-04-19 07:04 | HO.ECTPROC ---
ECT Procedure Note Diagnosis/Treatment Date of Service: 04/20/25 Diagnosis: Major Depressive Disorder Previous ECT Date: 04/16/25 Current Treatment Number: 3 Interval Clinical Notes: pt remains severely depressed Time: Total time managing care of this patient today ____ minutes. ECT Settings Device: THYMATRON DGx Program/Pulse Width: 0.25 Energy Percent: 100 Seizure Duration By EEG (in seconds): 27 Medications Administration General Anesthetic: Etomidate (16) Muscle Relaxant: Succinylcholine (100) Ancillary Medications Analgesics: Torodol - Pre ECT (30) Miscillaneous Medications: Propofol (20) Airway Management Airway Management: Bag Mask Ventilation Treatment Recommendations Electrode Placement: Bifrontal Notes: bf unless significant change
[2025-04-19] MEDS: Aspirin Enteric Coated 81 MG TABLET.DR PO (09:02)
[2025-04-19] MEDS: buPROPion HCl XL 150 MG TAB.ER.24H 450 MG PO (09:02)
--- NOTE | 2025-04-19 15:42 | P.PNPSI_ITS ---
Subjective Subjective Date of Service: 04/19/25 Reason For Visit: SI Interim History: had ECT this morning, resting in bed. no change in presentation or mood. per staff, taking meds. isolative. no change from ECT. flat, apathetic. slept 7 hours per RN. more irritable. Mental Status Exam Mental Status Exam Narrative: Appearance: Casually dressed, unkempt, disheveled Behavior: Calm and cooperative, PMR Eye contact is appropriate Speech: Normal loudness. slowed, flattened prosody. Thought process logical and goal-directed Thought content: On treatment. Mood: depressed Affect: constricted, hypo-intense SI: chronic, no plan HI: none expressed VH/AH: none expressed Delusions: None expressed Insight/judgment: impaired Diagnostics Vital Signs (24Hr): Vital Signs - 24 hr 04/18/25 20:01 04/18/25 21:56 04/19/25 05:57 Temperature 99.3 F 98.0 F 97.5 F Pulse Rate 60 69 Respiratory Rate 16 16 Blood Pressure 127/69 116/58 L Pulse Oximetry 98 100 Oxygen Delivery Method Room Air 04/19/25 06:15 04/19/25 07:28 04/19/25 07:30 Temperature 97 F 98.5 F Pulse Rate 76 76 69 Respiratory Rate 12 16 16 Blood Pressure 115/80 149/92 H 137/90 H Pulse Oximetry 96 96 98 Oxygen Delivery Method Room Air Room Air Room Air 04/19/25 07:35 04/19/25 07:40 04/19/25 07:45 Temperature Pulse Rate 72 72 72 Respiratory Rate 16 16 16 Blood Pressure 143/99 H 139/92 H 138/87 Pulse Oximetry 98 98 98 Oxygen Delivery Method Room Air Room Air Room Air 04/19/25 08:00 04/19/25 08:15 04/19/25 08:30 Temperature 98.1 F 98.1 F Pulse Rate 66 82 70 Respiratory Rate 16 16 16 Blood Pressure 130/88 154/75 H 123/82 Pulse Oximetry 98 98 98 Oxygen Delivery Method Room Air Room Air Room Air 04/19/25 09:38 Temperature 97.6 F Pulse Rate 70 Respiratory Rate 18 Blood Pressure 112/79 Pulse Oximetry 98 Oxygen Delivery Method BMI result Body Mass Index 34.5 Labs 04/06/25 14:28 04/06/25 14:28 Imaging Radiology Impressions: ITS Impressions Head CT 04/06/25 13:54 IMPRESSION: No acute intracranial hemorrhage. Bifrontal bitemporal lobes atrophy. Electronically signed by: Roque Guillen MD 04/06/2025 02:15 PM EDT RP Medications Medications Current Medications Acetaminophen (Acetaminophen 325 Mg Tablet) 650 mg PO Q6H PRN PRN Reason: Headache/Pain, Scale 1-10 Last Admin: 04/14/25 20:25 Dose: 650 mg Al Hydroxide/Mg Hydroxide (Magnesium Hydrox/Alum Hydrox 30 Ml Oral.Susp) 30 ml PO Q6H PRN PRN Reason: Heartburn/Nausea Aspirin (Aspirin Enteric Coated 81 Mg Tablet.) 81 mg PO DAILY [facility] Last Admin: 04/19/25 09:02 Dose: 81 mg Atorvastatin Calcium (Atorvastatin Calcium 20 Mg Tablet) 20 mg PO BEDTIME [facility] Last Admin: 04/18/25 21:54 Dose: 20 mg Bisacodyl (Bisacodyl 5 Mg Tablet.) 10 mg PO DAILY PRN PRN Reason: severe Constipation Last Admin: 04/17/25 10:24 Dose: 10 mg Bupropion HCl (Bupropion Hcl Xl 150 Mg Tab.Er.24h) 450 mg PO DAILY [facility] Last Admin: 04/19/25 09:02 Dose: 450 mg Docusate Sodium (Docusate Sodium 100 Mg Capsule) 100 mg PO BID [facility] Last Admin: 04/19/25 09:02 Dose: 100 mg Hydroxyzine HCl (Hydroxyzine Hcl 25 Mg Tablet) 25 mg PO Q6H PRN PRN Reason: mild anxiety Last Admin: 03/26/25 23:24 Dose: 25 mg Lurasidone HCl (Lurasidone Hcl 80 Mg Tablet) 80 mg PO DAILY@1700 [facility] Last Admin: 04/18/25 17:06 Dose: 80 mg Lurasidone HCl (Lurasidone Hcl 20 Mg Tablet) 20 mg PO DAILY@1700 [facility] Last Admin: 04/18/25 17:06 Dose: 20 mg Magnesium Hydroxide (Milk Of Magnesia 30 Ml Oral.Susp) 30 ml PO DAILY PRN PRN Reason: Constipation Last Admin: 04/17/25 10:24 Dose: 30 ml Modafinil (Modafinil 100 Mg Tablet) 100 mg PO DAILY [facility] Last Admin: 04/19/25 09:02 Dose: 100 mg Nicotine (Nicotine 21 Mg Patch.Td24) 21 mg TRANSDERMA DAILY PRN PRN Reason: nicotine craving Nicotine Polacrilex (Nicotine Polacrilex 2 Mg Gum) 2 mg BUCCAL Q2H PRN PRN Reason: Nicotine Cravings Olanzapine (Olanzapine 5 Mg Tablet) 5 mg PO BID PRN PRN Reason: agitation Polyethylene Glycol (Polyethylene Glycol 3350 17 Gm Powd.Pack) 17 gm PO DAILY [facility] Last Admin: 04/19/25 09:02 Dose: 17 gm Senna (Sennosides 8.6 Mg Tablet) 17.2 mg PO BEDTIME [facility] Last Admin: 04/18/25 21:54 Dose: 17.2 mg Trazodone HCl (Trazodone Hcl 50 Mg Tablet) 50 mg PO BEDTIME MRX1 PRN PRN Reason: Insomnia Last Admin: 04/05/25 23:14 Dose: 50 mg Allergies Allergies Allergy/AdvReac Type Severity Reaction Status Date / Time pumpkin Allergy Unknown Unknown Verified 12/24/24 12:26 Assessment & Plan Assessment & Plan (1) Bipolar disorder: Status: Acute Code(s): F31.9 - Bipolar disorder, unspecified (2) JUVENTINO (acute kidney injury): Status: Acute Code(s): N17.9 - Acute kidney failure, unspecified (3) CVA (cerebral vascular accident): Status: Acute Code(s): I63.9 - Cerebral infarction, unspecified (4) Abnormal head CT: Status: Acute Code(s): R93.0 - Abnormal findings on diagnostic imaging of skull and head, not elsewhere classified Plan 03/27: feels latuda 120 has been helpful. however, remains depressed. add wellbutrin XL 150 daily for depression, plan to increase to 300 mg daily in 3 days. may also consider ECT due to lack of improvement despite numerous recent hospitalizations + lethality of suicide attempts + recent self-abnegating behaviors. 03/28: no change in presentation, no requests or complaints. started wellbutrin 150 today. continue current mgmt 03/29/25: Slept well, no issues with appetite. Observed out on the unit, attended groups, engaging. Reports depression and 8/10, denies anxiety. Constricted affect, congruent with mood. Denies safety concerns. Compliant with medications. Denies side effects from Wellbutrin. Continue to encourage groups. 03/30/25: Patient slept for 6 hours, was medication compliant. He attended 2 groups yesterday, however today he is more isolated, in bed a lot more time, declines a couple groups. Reports depressed but no anxiety, flat affect, depressed, but cooperative during one-to-one assessment. He is receptive with the plan of Wellbutrin increased up to 300 mg for depression. Reports passive SI, denies plan or intention. Denies other safety concerns. Encourage patient to go to groups and shower daily. Increase Wellbutrin XL to 300 mg daily for depression. He reported that he has bipolar type II. 03/31: Laying in bed. keeping to self. showered. patient reports feeling depressed ; pt stated, I'm not having a good day. I don't want to do anything . flat affect. denies SI/HI/VH/AH. Per nursing, slept 8 hours. encouraged to attend groups. continue current tx plan. 04/01/25: Patient slept for 8 hours, poor meal intake yesterday but was medication compliant. Denies side effects. When asked about if he has poor appetite as he ate only 50 of breakfast, and 25 for lunch and not eating dinner, he said because I did not do the menu, so I got what I do not like . He shower yesterday, continued to reports depression 03/21. Denied anxiety. He does not feel any difference from Wellbutrin 150 when and when it was increased up to 300 mg. Denies SI/SIB/HI/AVH, isolative self, he plans to attend groups today. This provider spoke with patient in length regarding medication trials. Per his report, has been trying so many antidepressants they just do not work, and continued to be depressed. Some of them are Zoloft, Paxil, Effexor, Celexa, Prozac, Cymbalta, Lexapro. He also having history of taking Zyprexa more than 20 years ago due to hearing voices. Then the voices was calm. He never has a take it again after. History of Abilify but not sure if it is working as he can not recall. Regarding ADLs: He said that he had food at the nursing home twice a day, but he is not showering for many days despite the fact that staff asked him to do so I just do not care about being clean . Reports very low energy, low motivation, been increased suicidal thoughts and depression. He used to love music and reading but not interested in doing anything like that anymore. Reported that he had gastric sleeve surgery back in August 2023 which he lost 230 lb. He weight 447 lb prior to the surgery. He identified that after the surgery he has been more depressed slowly over months. There was a time that he wanted to starve myself so I can when asked is that you that he has stopped eating at home. He also identified that he feel more depressed after surgery as he is not able to over eating like he did before. Family mental health illnesses: Reports that who both of his parents was depressed. Mom 11 years ago. 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 History of ECTs: Reports he had history of ECTs in 2010 when he was at in [facility].He felt worse after the treatment everything seems like a dream . He clarified that immediately after the treatment he feel that way which could be a side effects of ECT but not permanent. Educate patient on possible side effects ECTs. Patient denies having seizure during ECTs treatment, no seizure history no cardiac conditions/disease history. Reports history of hypertension, but not anymore. He also has been admitted to different hospitals for psychiatric admissions in the past couple of months. Reports staying at [facility] in December for a month. [facility] in the area names [facility]) in October for another month. Per email from his OP team- clinical director at [facility], they also express concerns of patient's conditions. It is noted that their concerns are very consistent with patient' report here on the unit. He also has been admitted to different hospitals for psychiatric admissions in the past couple of months. Reports staying at [facility] in December for a month. [facility] in the area names [facility]) in October for another month. Per email from his OP team- clinical director at [facility], they also express concerns of patient's conditions. It is noted that their concerns are very consistent with patient' report here on the unit. Alfredito has been in and out on inpatient level of care since October of this year, I believe every month, for a majority of the time. He was recently discharged from [facility] after a 1 month stay and within two hours of returning home wanted to return to the hospital, saying he was unwell, and within one day was sectioned by [facility], which is how he ended up with you now. He has been coming home and intentionally starving himself, even not eating for up to 1 week. We have known Alfredito for years and since this started in October, we have seen no significant improvement in his mental health or a return to baseline. In fact, we are observing his case as consistent with failure to thrive. We have been asking for him to be inpatient at [facility] or with you at [facility] for some time in order for him to be potentially considered for ECT level of treatment, if deemed appropriate. Multiple medication trials failture to target depressive symptoms. He will be a good candidate to get trial ECT treatment in combination with current medication regimens. Patient also agrees with the plan. We would start the treatment as soon as possible. Will discuss the case with in house psychiatrist-Dr. Ward to prepare for ECT treatment. Hope to start early next week. 04/02: Laying in bed. keeping to self. Patient continues to report feeling depressed; pt stated, I feel about the same. I spoke with the other provider and agreed to do ECT . He reports sleeping well. denies SI/HI/VH/AH. Encouraged to attend groups and shower. Continue current tx plan. 04/03: no changes- just started wellbutrin 04/04: no changes 04/05/25: report anxiety a 2-3/10 but still 8/10 for depression. No change since started Wellbutrin. He agrees to get Wellbutrin up to 450mg daily for depression. Isolative in room, staring up to the ceiling. Discuss with patient of option to start on Intuniv for severe depression. Patient declines it at this current time but agree to see Welbutrin increased would be helpful. He agrees with ECT. Encourage groups, he says he was at art group out to dinning area but there are too much so he went back to his room. Report not many groups offered over the weekends. 04/06/25: Patient slept for 6 hours, have a sleep study done last night. Reported that he did not sleep well. Appetite is okay. Mood is depressed 03/21, denies anxiety today. Denies suicidal thoughts, but reports he has passive SI yesterday intrusive, just do not Wanna live anymore . Denies hallucinations. Address with patient of why he having bowel movement in the shower. He said it is just one episode. Reports he feel constipated. Agree with Colace. He also inform regarding the ECT which was approved by the insurance. He compliant with medication, however reports he has not feeling any difference in terms of depression at since started on Wellbutrin. Encourage groups attendance. Observe him later on during the day reading at a table in dining area. Colace 100mg BID for constipation. ECT consult placed: Patient may be seen by tomorrow by Dr. Ward. Procedure done preparing for the ECT: Head CT scan negative, EKG normal sinus rhythm, Incomplete right bundle branch block. Borderline ECG_ no change when compare to previous EKG. Unremarkable CBC with diff. 04/07/25: Per hospitalist note: ECT risk stratification Patient without previous problems with anesthesia, has previously undergone ECT RCRI 0 points, no further cardiac workup or treatment indicated at this time EKG showed QT interval WNL, no evidence of ischemic changes Based on stated PMH, HPI, and physical exam, there are no apparent medical contraindications to the planned procedure. Patient is complaining of pelvic discomfort and constipation. We will add therapy with Senokot, MiraLax and obtain urinalysis to assess for urinary tract infection. Continue treatment with atorvastatin and aspirin for history of stroke and hyperlipidemia. 04/07/25: Patient compliant with medication, reports due to the pain abdominal, he could not sleep well last night. Continued to reports depressions 8/10, anxiety 4/10 today related to the pain. Denies suicidal thoughts or voices, isolated. Shower yesterday. Review with patient test need to be done prior to having ECT. Patient met with Dr. Ward and hospitalist for ECT clearance. Due to the pain, constipated, more laxative ordered today. Also UA other by hospitalist to rule out any infection. He is flat, low energy, low motivation, withdrawal, in room mostly, but come out to other rooms to talk to the providers 04/08/25: Patient slept for 8 hours, compliant with medications, denies side effect. Met with him in his room, reported that he slept better last night, having good bowel movement, denies diarrhea is. Informed him regarding the labs work/and UA that was negative to rule out UTI. Denies pain. Explained to patient regarding pre ECT procedures/test to prepare for the day that he going to start. We will start ECT on Saturday. Per Dr. Ward, we will taper down on Latuda, start him on Modafinil low dose to help with severe depression. Continued to reports moderate to severe depression. Denies suicidal thoughts or hallucinations. 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 He denied any significant or excessive drug exposure. I do not find any focal lesion, acute or chronic, suggestive of stroke. There was no contraindication to treatment with ECT. Otherwise treatment of this condition is supportive, symptomatic and conservative Taper down on Latuda from 120 down to 100 mg daily at 17:00 for mood. Start on Modefinil 100ng daily for severe depression, low energy, poor concentration, poor motivation. ECT will be scheduled next week on Saturday. We will received treatment for Saturday/Saturday and Saturday. 04/09/25: Patient denies pain, normal bowel movement, slept well and compliant with medications. Denies side effects. Denies suicidal thoughts or hallucinations but reports mild on anxiety and moderate to severe depression. Patient appeared to be disheveled. Encourage patient to be out of bed in attended to groups included OT groups which observe he is visible in day room after the conversation. The OT will do the [place] for pre ECT next week on Saturday prior the ECT. He started modafinil 50 mg this morning. Indication and side effects explained to patient. Patient is receptive with the plan. Correction: Modefinill 50mg daily. MOCA scheduled next week prior to ECT. 04/10:Laying in bed most of morning. Patient continues to report feeling depressed. He reports looking forward to ECT; pt stated, I think it will be a positive step to get ECT . denies SI/HI/VH/AH. Encouraged to get out of bed. Continue tx plan 04/11: Per nursing, pt did not get out of bed yesterday. Observed laying in bed this morning; encouraged to attend groups and shower. Patient continues to report feeling depressed. denies SI/HI/VH/AH. Encouraged to get out of bed. Continue tx plan. 04/12: continue current tx plan 04/13: stably depressed. PMR. start ECT tomorrow, otherwise continue current mgmt. NPO past MN. 04/14/25: got his first ECT treatment this afternoon. Patient slept for 6 hours, was medication compliant. However, this morning due to the delay of the ECT treatment, he was not happy about the delay into the afternoon. He appeared to be frustrated, irritable, and not cooperative with this provider I do not want to talk to anyone . I am done talking . I do not care when asked his last bowel movement. Per nursing, patient denies suicidal thoughts, other safety concerns. Reports he has no bowel movement x4 days. Medication this morning was held until after the ECT. He also was given citrate magnesium x1. Pending effect. 04/15: made bowel movement. ECT #2 tomorrow. no change in mood or presentation as of today. T/C increasing modafanil to 200 mg sometime next week. 04/16: completed ECT without incident. no FLOWERS today. no change in presentation otherwise. continue current mgmt. ECT #3 saturday. 04/17/2025: No changes. ECT # 3 Saturday04/19/202504/18: no changes 04/19: completed ECT #3 today. no FLOWERS, no change in presentation, no change in mood. continnue current mgmt. T/C modafanil increase. Reason for continued inpatient stay Substantial Risk for: harm to self and inability to function Time Spent With Patient Time: Total time managing care of this patient today ____ minutes.
[2025-04-20 07:51] VITALS: BP 104/74; PULSE 68; RESP 16; TEMP 36.8; O2SAT 98
[2025-04-20] MEDS: buPROPion HCl XL 150 MG TAB.ER.24H 450 MG PO (08:45)
[2025-04-20] MEDS: Aspirin Enteric Coated 81 MG TABLET.DR PO (08:46)
--- NOTE | 2025-04-20 12:17 | P.PNPSI_ITS ---
Subjective Subjective Date of Service: 04/20/25 Reason For Visit: SI Interim History: in bed awake. a bit brighter, says his mood is starting to improve. NPO past MN. ECT tomorrow. no questions or complaints. per staff, +dep/anx. taking meds. showered. eating. smiled at a joke by staff. slept 7 hours. Mental Status Exam Mental Status Exam Narrative: Appearance: Casually dressed, unkempt, disheveled Behavior: Calm and cooperative, less PMR Eye contact is appropriate Speech: Normal loudness. slowed, flattened prosody. Thought process logical and goal-directed Thought content: On treatment. Mood: a little better Affect: more flexible, normo-intense SI: none expressed HI: none expressed VH/AH: none expressed Delusions: None expressed Insight/judgment: impaired Diagnostics Vital Signs (24Hr): Vital Signs - 24 hr 04/19/25 19:44 04/20/25 07:51 Temperature 98.1 F 98.2 F Pulse Rate 64 68 Respiratory Rate 16 16 Blood Pressure 118/56 L 104/74 Pulse Oximetry 96 98 Oxygen Delivery Method Room Air Room Air BMI result Body Mass Index 34.5 Labs 04/06/25 14:28 04/06/25 14:28 Imaging Radiology Impressions: ITS Impressions Head CT 04/06/25 13:54 IMPRESSION: No acute intracranial hemorrhage. Bifrontal bitemporal lobes atrophy. Electronically signed by: Roque Guillen MD 04/06/2025 02:15 PM EDT Medications Medications Current Medications Acetaminophen (Acetaminophen 325 Mg Tablet) 650 mg PO Q6H PRN PRN Reason: Headache/Pain, Scale 1-10 Last Admin: 04/14/25 20:25 Dose: 650 mg Al Hydroxide/Mg Hydroxide (Magnesium Hydrox/Alum Hydrox 30 Ml Oral.Susp) 30 ml PO Q6H PRN PRN Reason: Heartburn/Nausea Aspirin (Aspirin Enteric Coated 81 Mg Tablet.) 81 mg PO DAILY [facility] Last Admin: 04/20/25 08:46 Dose: 81 mg Atorvastatin Calcium (Atorvastatin Calcium 20 Mg Tablet) 20 mg PO BEDTIME [facility] Last Admin: 04/19/25 22:22 Dose: 20 mg Bisacodyl (Bisacodyl 5 Mg Tablet.) 10 mg PO DAILY PRN PRN Reason: severe Constipation Last Admin: 04/20/25 08:57 Dose: 10 mg Bupropion HCl (Bupropion Hcl Xl 150 Mg Tab.Er.24h) 450 mg PO DAILY [facility] Last Admin: 04/20/25 08:45 Dose: 450 mg Docusate Sodium (Docusate Sodium 100 Mg Capsule) 100 mg PO BID [facility] Last Admin: 04/20/25 08:46 Dose: 100 mg Hydroxyzine HCl (Hydroxyzine Hcl 25 Mg Tablet) 25 mg PO Q6H PRN PRN Reason: mild anxiety Last Admin: 03/26/25 23:24 Dose: 25 mg Lurasidone HCl (Lurasidone Hcl 80 Mg Tablet) 80 mg PO DAILY@1700 [facility] Last Admin: 04/19/25 17:38 Dose: 80 mg Lurasidone HCl (Lurasidone Hcl 20 Mg Tablet) 20 mg PO DAILY@1700 [facility] Last Admin: 04/19/25 17:38 Dose: 20 mg Magnesium Hydroxide (Milk Of Magnesia 30 Ml Oral.Susp) 30 ml PO DAILY PRN PRN Reason: Constipation Last Admin: 04/17/25 10:24 Dose: 30 ml Modafinil (Modafinil 100 Mg Tablet) 100 mg PO DAILY [facility] Last Admin: 04/20/25 08:46 Dose: 100 mg Nicotine (Nicotine 21 Mg Patch.Td24) 21 mg TRANSDERMA DAILY PRN PRN Reason: nicotine craving Nicotine Polacrilex (Nicotine Polacrilex 2 Mg Gum) 2 mg BUCCAL Q2H PRN PRN Reason: Nicotine Cravings Olanzapine (Olanzapine 5 Mg Tablet) 5 mg PO BID PRN PRN Reason: agitation Polyethylene Glycol (Polyethylene Glycol 3350 17 Gm Powd.Pack) 17 gm PO DAILY [facility] Last Admin: 04/20/25 08:47 Dose: 17 gm Senna (Sennosides 8.6 Mg Tablet) 17.2 mg PO BEDTIME [facility] Last Admin: 04/19/25 22:22 Dose: 17.2 mg Trazodone HCl (Trazodone Hcl 50 Mg Tablet) 50 mg PO BEDTIME MRX1 PRN PRN Reason: Insomnia Last Admin: 04/05/25 23:14 Dose: 50 mg Allergies Allergies Allergy/AdvReac Type Severity Reaction Status Date / Time pumpkin Allergy Unknown Unknown Verified 12/24/24 12:26 Assessment & Plan Assessment & Plan (1) Bipolar disorder: Status: Acute Code(s): F31.9 - Bipolar disorder, unspecified (2) JUVENTINO (acute kidney injury): Status: Acute Code(s): N17.9 - Acute kidney failure, unspecified (3) CVA (cerebral vascular accident): Status: Acute Code(s): I63.9 - Cerebral infarction, unspecified (4) Abnormal head CT: Status: Acute Code(s): R93.0 - Abnormal findings on diagnostic imaging of skull and head, not elsewhere classified Plan 03/27: feels latuda 120 has been helpful. however, remains depressed. add wellbutrin XL 150 daily for depression, plan to increase to 300 mg daily in 3 days. may also consider ECT due to lack of improvement despite numerous recent hospitalizations + lethality of suicide attempts + recent self-abnegating behaviors. 03/28: no change in presentation, no requests or complaints. started wellbutrin 150 today. continue current mgmt 03/29/25: Slept well, no issues with appetite. Observed out on the unit, attended groups, engaging. Reports depression and 03/21, denies anxiety. Constricted affect, congruent with mood. Denies safety concerns. Compliant with medications. Denies side effects from Wellbutrin. Continue to encourage groups. 03/30/25: Patient slept for 6 hours, was medication compliant. He attended 2 groups yesterday, however today he is more isolated, in bed a lot more time, declines a couple groups. Reports depressed but no anxiety, flat affect, depressed, but cooperative during one-to-one assessment. He is receptive with the plan of Wellbutrin increased up to 300 mg for depression. Reports passive SI, denies plan or intention. Denies other safety concerns. Encourage patient to go to groups and shower daily. Increase Wellbutrin XL to 300 mg daily for depression. He reported that he has bipolar type II. 03/31: Laying in bed. keeping to self. showered. patient reports feeling depressed ; pt stated, I'm not having a good day. I don't want to do anything . flat affect. denies SI/HI/VH/AH. Per nursing, slept 8 hours. encouraged to attend groups. continue current tx plan. 04/01/25: Patient slept for 8 hours, poor meal intake yesterday but was medication compliant. Denies side effects. When asked about if he has poor appetite as he ate only 50 of breakfast, and 25 for lunch and not eating dinner, he said because I did not do the menu, so I got what I do not like . He shower yesterday, continued to reports depression 03/21. Denied anxiety. He does not feel any difference from Wellbutrin 150 when and when it was increased up to 300 mg. Denies SI/SIB/HI/AVH, isolative self, he plans to attend groups today. This provider spoke with patient in length regarding medication trials. Per his report, has been trying so many antidepressants they just do not work, and continued to be depressed. Some of them are Zoloft, Paxil, Effexor, Celexa, Prozac, Cymbalta, Lexapro. He also having history of taking Zyprexa more than 20 years ago due to hearing voices. Then the voices was calm. He never has a take it again after. History of Abilify but not sure if it is working as he can not recall. Regarding ADLs: He said that he had food at the [facility] twice a day, but he is not showering for many days despite the fact that staff asked him to do so I just do not care about being clean . Reports very low energy, low motivation, been increased suicidal thoughts and depression. He used to love music and reading but not interested in doing anything like that anymore. Reported that he had gastric sleeve surgery back in August 2023 which he lost 230 lb. He weight 447 lb prior to the surgery. He identified that after the surgery he has been more depressed slowly over months. There was a time that he wanted to starve myself so I can when asked is that you that he has stopped eating at home. He also identified that he feel more depressed after surgery as he is not able to over eating like he did before. Family mental health illnesses: Reports that who both of his parents was depressed. Mom 11 years ago. 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 History of ECTs: Reports he had history of ECTs in 2010 when he was at in [facility].He felt worse after the treatment everything seems like a dream . He clarified that immediately after the treatment he feel that way which could be a side effects of ECT but not permanent. Educate patient on possible side effects ECTs. Patient denies having seizure during ECTs treatment, no seizure history no cardiac conditions/disease history. Reports history of hypertension, but not anymore. He also has been admitted to different hospitals for psychiatric admissions in the past couple of months. Reports staying at [facility] in December for a month. [facility] in the area names [facility]) in October for another month. Per email from his OP team- clinical director at [facility], they also express concerns of patient's conditions. It is noted that their concerns are very consistent with patient' report here on the unit. He also has been admitted to different hospitals for psychiatric admissions in the past couple of months. Reports staying at [facility] in December for a month. [facility] in the area names [facility]) in October for another month. Per email from his OP team- clinical director at [facility], they also express concerns of patient's conditions. It is noted that their concerns are very consistent with patient' report here on the unit. Alfredito has been in and out on inpatient level of care since October of this year, I believe every month, for a majority of the time. He was recently discharged from [facility] after a 1 month stay and within two hours of returning home wanted to return to the hospital, saying he was unwell, and within one day was sectioned by [facility] Gabriel, which is how he ended up with you now. He has been coming home and intentionally starving himself, even not eating for up to 1 week. We have known Alfredito for years and since this started in October, we have seen no significant improvement in his mental health or a return to baseline. In fact, we are observing his case as consistent with failure to thrive. We have been asking for him to be inpatient at [facility] or with you at [facility] for some time in order for him to be potentially considered for ECT level of treatment, if deemed appropriate. Multiple medication trials failture to target depressive symptoms. He will be a good candidate to get trial ECT treatment in combination with current medication regimens. Patient also agrees with the plan. We would start the treatment as soon as possible. Will discuss the case with in house psychiatrist-Dr. Ward to prepare for ECT treatment. Hope to start early next week. 04/02: Laying in bed. keeping to self. Patient continues to report feeling depressed; pt stated, I feel about the same. I spoke with the other provider and agreed to do ECT . He reports sleeping well. denies SI/HI/VH/AH. Encouraged to attend groups and shower. Continue current tx plan. 04/03: no changes- just started wellbutrin 04/04: no changes 04/05/25: report anxiety a 2-3 but still 03/21 for depression. No change since started Wellbutrin. He agrees to get Wellbutrin up to 450mg daily for depression. Isolative in room, staring up to the ceiling. Discuss with patient of option to start on Intuniv for severe depression. Patient declines it at this current time but agree to see Welbutrin increased would be helpful. He agrees with ECT. Encourage groups, he says he was at art group out to dinning area but there are too much so he went back to his room. Report not many groups offered over the weekends. 04/06/25: Patient slept for 6 hours, have a sleep study done last night. Reported that he did not sleep well. Appetite is okay. Mood is depressed 03/21, denies anxiety today. Denies suicidal thoughts, but reports he has passive SI yesterday intrusive, just do not Wanna live anymore . Denies hallucinations. Address with patient of why he having bowel movement in the shower. He said it is just one episode. Reports he feel constipated. Agree with Colace. He also inform regarding the ECT which was approved by the insurance. He compliant with medication, however reports he has not feeling any difference in terms of depression at since started on Wellbutrin. Encourage groups attendance. Observe him later on during the day reading at a table in dining area. Colace 100mg BID for constipation. ECT consult placed: Patient may be seen by tomorrow by Dr. Ward. Procedure done preparing for the ECT: Head CT scan negative, EKG normal sinus rhythm, Incomplete right bundle branch block. Borderline ECG_ no change when compare to previous EKG. Unremarkable CBC with diff. 04/07/25: Per hospitalist note: ECT risk stratification Patient without previous problems with anesthesia, has previously undergone ECT RCRI 0 points, no further cardiac workup or treatment indicated at this time EKG showed QT interval WNL, no evidence of ischemic changes Based on stated PMH, HPI, and physical exam, there are no apparent medical contraindications to the planned procedure. Patient is complaining of pelvic discomfort and constipation. We will add therapy with Senokot, MiraLax and obtain urinalysis to assess for urinary tract infection. Continue treatment with atorvastatin and aspirin for history of stroke and hyperlipidemia. 04/07/25: Patient compliant with medication, reports due to the pain abdominal, he could not sleep well last night. Continued to reports depressions 8/10, anxiety 4/10 today related to the pain. Denies suicidal thoughts or voices, isolated. Shower yesterday. Review with patient test need to be done prior to having ECT. Patient met with Dr. Ward and hospitalist for ECT clearance. Due to the pain, constipated, more laxative ordered today. Also UA other by hospitalist to rule out any infection. He is flat, low energy, low motivation, withdrawal, in room mostly, but come out to other rooms to talk to the providers 04/08/25: Patient slept for 8 hours, compliant with medications, denies side effect. Met with him in his room, reported that he slept better last night, having good bowel movement, denies diarrhea is. Informed him regarding the labs work/and UA that was negative to rule out UTI. Denies pain. Explained to patient regarding pre ECT procedures/test to prepare for the day that he going to start. We will start ECT on Saturday. Per Dr. Ward, we will taper down on Latuda, start him on Modafinil low dose to help with severe depression. Continued to reports moderate to severe depression. Denies suicidal thoughts or hallucinations. 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 He denied any significant or excessive drug exposure. I do not find any focal lesion, acute or chronic, suggestive of stroke. There was no contraindication to treatment with ECT. Otherwise treatment of this condition is supportive, symptomatic and conservative Taper down on Latuda from 120 down to 100 mg daily at 17:00 for mood. Start on Modefinil 100ng daily for severe depression, low energy, poor concentration, poor motivation. ECT will be scheduled next week on Saturday. We will received treatment for Saturday/Saturday and Saturday. 04/09/25: Patient denies pain, normal bowel movement, slept well and compliant with medications. Denies side effects. Denies suicidal thoughts or hallucinations but reports mild on anxiety and moderate to severe depression. Patient appeared to be disheveled. Encourage patient to be out of bed in attended to groups included OT groups which observe he is visible in day room after the conversation. The OT will do the [place] for pre ECT next week on Saturday prior the ECT. He started modafinil 50 mg this morning. Indication and side effects explained to patient. Patient is receptive with the plan. Correction: Modefinill 50mg daily. MOCA scheduled next week prior to ECT. 04/10:Laying in bed most of morning. Patient continues to report feeling depressed. He reports looking forward to ECT; pt stated, I think it will be a positive step to get ECT . denies SI/HI/VH/AH. Encouraged to get out of bed. Continue tx plan 04/11: Per nursing, pt did not get out of bed yesterday. Observed laying in bed this morning; encouraged to attend groups and shower. Patient continues to report feeling depressed. denies SI/HI/VH/AH. Encouraged to get out of bed. Continue tx plan. 04/12: continue current tx plan 04/13: stably depressed. PMR. start ECT tomorrow, otherwise continue current mgmt. NPO past MN. 04/14/25: got his first ECT treatment this afternoon. Patient slept for 6 hours, was medication compliant. However, this morning due to the delay of the ECT treatment, he was not happy about the delay into the afternoon. He appeared to be frustrated, irritable, and not cooperative with this provider I do not want to talk to anyone . I am done talking . I do not care when asked his last bowel movement. Per nursing, patient denies suicidal thoughts, other safety concerns. Reports he has no bowel movement x4 days. Medication this morning was held until after the ECT. He also was given citrate magnesium x1. Pending effect. 04/15: made bowel movement. ECT #2 tomorrow. no change in mood or presentation as of today. T/C increasing modafanil to 200 mg sometime next week. 04/16: completed ECT without incident. no FLOWERS today. no change in presentation otherwise. continue current mgmt. ECT #3 saturday. 04/17/2025: No changes. ECT # 3 Saturday04/19/202504/18: no changes 04/19: completed ECT #3 today. no FLOWERS, no change in presentation, no change in mood. continue current mgmt. T/C modafanil increase. 04/20: mood starting to improve. laughed, affect brighter and more flexible. ECT tomorrow, NPO after midnight. continue current mgmt otherwise. Reason for continued inpatient stay Substantial Risk for: inability to function and rapid decompensation Time Spent With Patient Time: Total time managing care of this patient today __25__ minutes.
[2025-04-20 20:00] VITALS: BP 105/61; PULSE 73; RESP 18; TEMP 36.9; O2SAT 97
[2025-04-20 20:54] LABS: Glucose, Whole Blood 102 mg/dL (60-115)
[2025-04-21] VITALS (8 sets, daily range): BP systolic 88–141; BP diastolic 45–79; PULSE 66–88; RESP 14–16; TEMP 36.2–36.9; O2SAT 95–100
--- NOTE | 2025-04-21 13:29 | P.PNPSI_ITS ---
Subjective Subjective Date of Service: 04/21/25 Reason For Visit: SI Interim History: irritable, awaiting ECT. per staff, no change. Mental Status Exam Mental Status Exam Narrative: Appearance: Casually dressed, unkempt, disheveled Behavior: physiologic hyperarousal, elevated voice Eye contact is appropriate Speech: incr loudness. nml rate, flattened prosody. Thought process logical and goal-directed Thought content: On treatment. Mood: not assessed Affect: constricted, hyper-intense SI: none expressed HI: none expressed VH/AH: none expressed Delusions: None expressed Insight/judgment: impaired Diagnostics Vital Signs (24Hr): Vital Signs - 24 hr 04/20/25 20:00 04/21/25 05:54 04/21/25 13:04 Temperature 98.4 F 97.5 F 97.1 F Pulse Rate 73 66 68 Respiratory Rate 18 14 16 Blood Pressure 105/61 88/45 L 117/79 Pulse Oximetry 97 98 98 Oxygen Delivery Method Room Air Room Air BMI result Body Mass Index 34.5 Labs 04/06/25 14:28 04/06/25 14:28 Labs: Laboratory Results - last 48 hr 04/20/25 20:47 POC Glucose 102 Imaging Radiology Impressions: ITS Impressions Head CT 04/06/25 13:54 IMPRESSION: No acute intracranial hemorrhage. Bifrontal bitemporal lobes atrophy. Electronically signed by: Roque Guillen MD 04/06/2025 02:15 PM EDT RP Medications Medications Current Medications Acetaminophen (Acetaminophen 325 Mg Tablet) 650 mg PO Q6H PRN PRN Reason: Headache/Pain, Scale 1-10 Last Admin: 04/14/25 20:25 Dose: 650 mg Al Hydroxide/Mg Hydroxide (Magnesium Hydrox/Alum Hydrox 30 Ml Oral.Susp) 30 ml PO Q6H PRN PRN Reason: Heartburn/Nausea Aspirin (Aspirin Enteric Coated 81 Mg Tablet.) 81 mg PO DAILY [facility] Last Admin: 04/21/25 12:00 Dose: Not Given Atorvastatin Calcium (Atorvastatin Calcium 20 Mg Tablet) 20 mg PO BEDTIME [facility] Last Admin: 04/20/25 20:57 Dose: 20 mg Bisacodyl (Bisacodyl 5 Mg Tablet.) 10 mg PO DAILY PRN PRN Reason: severe Constipation Last Admin: 04/20/25 08:57 Dose: 10 mg Bupropion HCl (Bupropion Hcl Xl 150 Mg Tab.Er.24h) 450 mg PO DAILY [facility] Last Admin: 04/21/25 12:00 Dose: Not Given Docusate Sodium (Docusate Sodium 100 Mg Capsule) 100 mg PO BID [facility] Last Admin: 04/21/25 12:00 Dose: Not Given Hydroxyzine HCl (Hydroxyzine Hcl 25 Mg Tablet) 25 mg PO Q6H PRN PRN Reason: mild anxiety Last Admin: 03/26/25 23:24 Dose: 25 mg Lurasidone HCl (Lurasidone Hcl 80 Mg Tablet) 80 mg PO DAILY@1700 [facility] Last Admin: 04/20/25 17:08 Dose: 80 mg Lurasidone HCl (Lurasidone Hcl 20 Mg Tablet) 20 mg PO DAILY@1700 [facility] Last Admin: 04/20/25 17:08 Dose: 20 mg Magnesium Hydroxide (Milk Of Magnesia 30 Ml Oral.Susp) 30 ml PO DAILY PRN PRN Reason: Constipation Last Admin: 04/17/25 10:24 Dose: 30 ml Modafinil (Modafinil 100 Mg Tablet) 100 mg PO DAILY [facility] Last Admin: 04/21/25 12:00 Dose: Not Given Nicotine (Nicotine 21 Mg Patch.Td24) 21 mg TRANSDERMA DAILY PRN PRN Reason: nicotine craving Nicotine Polacrilex (Nicotine Polacrilex 2 Mg Gum) 2 mg BUCCAL Q2H PRN PRN Reason: Nicotine Cravings Olanzapine (Olanzapine 5 Mg Tablet) 5 mg PO BID PRN PRN Reason: agitation Polyethylene Glycol (Polyethylene Glycol 3350 17 Gm Powd.Pack) 17 gm PO DAILY [facility] Last Admin: 04/21/25 12:00 Dose: Not Given Senna (Sennosides 8.6 Mg Tablet) 17.2 mg PO BEDTIME [facility] Last Admin: 04/20/25 20:57 Dose: 17.2 mg Trazodone HCl (Trazodone Hcl 50 Mg Tablet) 50 mg PO BEDTIME MRX1 PRN PRN Reason: Insomnia Last Admin: 04/05/25 23:14 Dose: 50 mg Allergies Allergies Allergy/AdvReac Type Severity Reaction Status Date / Time pumpkin Allergy Unknown Unknown Verified 12/24/24 12:26 Assessment & Plan Assessment & Plan (1) Bipolar disorder: Status: Acute Code(s): F31.9 - Bipolar disorder, unspecified (2) JUVENTINO (acute kidney injury): Status: Acute Code(s): N17.9 - Acute kidney failure, unspecified (3) CVA (cerebral vascular accident): Status: Acute Code(s): I63.9 - Cerebral infarction, unspecified (4) Abnormal head CT: Status: Acute Code(s): R93.0 - Abnormal findings on diagnostic imaging of skull and head, not elsewhere classified Plan 03/27: feels latuda 120 has been helpful. however, remains depressed. add wellbutrin XL 150 daily for depression, plan to increase to 300 mg daily in 3 days. may also consider ECT due to lack of improvement despite numerous recent hospitalizations + lethality of suicide attempts + recent self-abnegating behaviors. 03/28: no change in presentation, no requests or complaints. started wellbutrin 150 today. continue current mgmt 03/29/25: Slept well, no issues with appetite. Observed out on the unit, attended groups, engaging. Reports depression and 03/21, denies anxiety. Constricted affect, congruent with mood. Denies safety concerns. Compliant with medications. Denies side effects from Wellbutrin. Continue to encourage groups. 03/30/25: Patient slept for 6 hours, was medication compliant. He attended 2 groups yesterday, however today he is more isolated, in bed a lot more time, declines a couple groups. Reports depressed but no anxiety, flat affect, depressed, but cooperative during one-to-one assessment. He is receptive with the plan of Wellbutrin increased up to 300 mg for depression. Reports passive SI, denies plan or intention. Denies other safety concerns. Encourage patient to go to groups and shower daily. Increase Wellbutrin XL to 300 mg daily for depression. He reported that he has bipolar type II. 03/31: Laying in bed. keeping to self. showered. patient reports feeling depressed ; pt stated, I'm not having a good day. I don't want to do anything . flat affect. denies SI/HI/VH/AH. Per nursing, slept 8 hours. encouraged to attend groups. continue current tx plan. 04/01/25: Patient slept for 8 hours, poor meal intake yesterday but was medication compliant. Denies side effects. When asked about if he has poor appetite as he ate only 50 of breakfast, and 25 for lunch and not eating dinner, he said because I did not do the menu, so I got what I do not like . He shower yesterday, continued to reports depression 03/21. Denied anxiety. He does not feel any difference from Wellbutrin 150 when and when it was increased up to 300 mg. Denies SI/SIB/HI/AVH, isolative self, he plans to attend groups today. This provider spoke with patient in length regarding medication trials. Per his report, has been trying so many antidepressants they just do not work, and continued to be depressed. Some of them are Zoloft, Paxil, Effexor, Celexa, Prozac, Cymbalta, Lexapro. He also having history of taking Zyprexa more than 20 years ago due to hearing voices. Then the voices was calm. He never has a take it again after. History of Abilify but not sure if it is working as he can not recall. Regarding ADLs: He said that he had food at the alf twice a day, but he is not showering for many days despite the fact that staff asked him to do so I just do not care about being clean . Reports very low energy, low motivation, been increased suicidal thoughts and depression. He used to love music and reading but not interested in doing anything like that anymore. Reported that he had gastric sleeve surgery back in August 2023 which he lost 230 lb. He weight 447 lb prior to the surgery. He identified that after the surgery he has been more depressed slowly over months. There was a time that he wanted to starve myself so I can when asked is that you that he has stopped eating at home. He also identified that he feel more depressed after surgery as he is not able to over eating like he did before. Family mental health illnesses: Reports that who both of his parents was depressed. Mom 11 years ago. 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 History of ECTs: Reports he had history of ECTs in 2010 when he was at in [facility].He felt worse after the treatment everything seems like a dream . He clarified that immediately after the treatment he feel that way which could be a side effects of ECT but not permanent. Educate patient on possible side effects ECTs. Patient denies having seizure during ECTs treatment, no seizure history no cardiac conditions/disease history. Reports history of hypertension, but not anymore. He also has been admitted to different hospitals for psychiatric admissions in the past couple of months. Reports staying at [facility] in December for a month. [facility] hospital in the area names [facility]) in October for another month. Per email from his OP team- clinical director at [facility], they also express concerns of patient's conditions. It is noted that their concerns are very consistent with patient' report here on the unit. He also has been admitted to different hospitals for psychiatric admissions in the past couple of months. Reports staying at [facility] in December for a month. [facility] hospital in the area names [facility]) in October for another month. Per email from his OP team- clinical director at [facility], they also express concerns of patient's conditions. It is noted that their concerns are very consistent with patient' report here on the unit. Alfredito has been in and out on inpatient level of care since October of this year, I believe every month, for a majority of the time. He was recently discharged from [facility] after a 1 month stay and within two hours of returning home wanted to return to the hospital, saying he was unwell, and within one day was sectioned by [facility], which is how he ended up with you now. He has been coming home and intentionally starving himself, even not eating for up to 1 week. We have known Alfredito for years and since this started in October, we have seen no significant improvement in his mental health or a return to baseline. In fact, we are observing his case as consistent with failure to thrive. We have been asking for him to be inpatient at [facility] or with you at [facility] for some time in order for him to be potentially considered for ECT level of treatment, if deemed appropriate. Multiple medication trials failture to target depressive symptoms. He will be a good candidate to get trial ECT treatment in combination with current medication regimens. Patient also agrees with the plan. We would start the treatment as soon as possible. Will discuss the case with in house psychiatrist-Dr. Ward to prepare for ECT treatment. Hope to start early next week. 04/02: Laying in bed. keeping to self. Patient continues to report feeling depressed; pt stated, I feel about the same. I spoke with the other provider and agreed to do ECT . He reports sleeping well. denies SI/HI/VH/AH. Encouraged to attend groups and shower. Continue current tx plan. 04/03: no changes- just started wellbutrin 04/04: no changes 04/05/25: report anxiety a 2-3/10 but still 8/10 for depression. No change since started Wellbutrin. He agrees to get Wellbutrin up to 450mg daily for depression. Isolative in room, staring up to the ceiling. Discuss with patient of option to start on Intuniv for severe depression. Patient declines it at this current time but agree to see Welbutrin increased would be helpful. He agrees with ECT. Encourage groups, he says he was at art group out to dinning area but there are too much so he went back to his room. Report not many groups offered over the weekends. 04/06/25: Patient slept for 6 hours, have a sleep study done last night. Reported that he did not sleep well. Appetite is okay. Mood is depressed 03/21, denies anxiety today. Denies suicidal thoughts, but reports he has passive SI yesterday intrusive, just do not Wanna live anymore . Denies hallucinations. Address with patient of why he having bowel movement in the shower. He said it is just one episode. Reports he feel constipated. Agree with Colace. He also inform regarding the ECT which was approved by the insurance. He compliant with medication, however reports he has not feeling any difference in terms of depression at since started on Wellbutrin. Encourage groups attendance. Observe him later on during the day reading at a table in dining area. Colace 100mg BID for constipation. ECT consult placed: Patient may be seen by tomorrow by Dr. Ward. Procedure done preparing for the ECT: Head CT scan negative, EKG normal sinus rhythm, Incomplete right bundle branch block. Borderline ECG_ no change when compare to previous EKG. Unremarkable CBC with diff. 04/07/25: Per hospitalist note: ECT risk stratification Patient without previous problems with anesthesia, has previously undergone ECT RCRI 0 points, no further cardiac workup or treatment indicated at this time EKG showed QT interval WNL, no evidence of ischemic changes Based on stated PMH, HPI, and physical exam, there are no apparent medical contraindications to the planned procedure. Patient is complaining of pelvic discomfort and constipation. We will add therapy with Senokot, MiraLax and obtain urinalysis to assess for urinary tract infection. Continue treatment with atorvastatin and aspirin for history of stroke and hyperlipidemia. 04/07/25: Patient compliant with medication, reports due to the pain abdominal, he could not sleep well last night. Continued to reports depressions 8/10, anxiety 4/10 today related to the pain. Denies suicidal thoughts or voices, isolated. Shower yesterday. Review with patient test need to be done prior to having ECT. Patient met with Dr. Ward and hospitalist for ECT clearance. Due to the pain, constipated, more laxative ordered today. Also UA other by hospitalist to rule out any infection. He is flat, low energy, low motivation, withdrawal, in room mostly, but come out to other rooms to talk to the providers 04/08/25: Patient slept for 8 hours, compliant with medications, denies side effect. Met with him in his room, reported that he slept better last night, having good bowel movement, denies diarrhea is. Informed him regarding the labs work/and UA that was negative to rule out UTI. Denies pain. Explained to patient regarding pre ECT procedures/test to prepare for the day that he going to start. We will start ECT on Saturday. Per Dr. Ward, we will taper down on Latuda, start him on Modafinil low dose to help with severe depression. Continued to reports moderate to severe depression. Denies suicidal thoughts or hallucinations. 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 He denied any significant or excessive drug exposure. I do not find any focal lesion, acute or chronic, suggestive of stroke. There was no contraindication to treatment with ECT. Otherwise treatment of this condition is supportive, symptomatic and conservative Taper down on Latuda from 120 down to 100 mg daily at 17:00 for mood. Start on Modefinil 100ng daily for severe depression, low energy, poor concentration, poor motivation. ECT will be scheduled next week on Saturday. We will received treatment for Saturday/Saturday and Saturday. 04/09/25: Patient denies pain, normal bowel movement, slept well and compliant with medications. Denies side effects. Denies suicidal thoughts or hallucinations but reports mild on anxiety and moderate to severe depression. Patient appeared to be disheveled. Encourage patient to be out of bed in attended to groups included OT groups which observe he is visible in day room after the conversation. The OT will do the [place] for pre ECT next week on Saturday prior the ECT. He started modafinil 50 mg this morning. Indication and side effects explained to patient. Patient is receptive with the plan. Correction: Modefinill 50mg daily. MOCA scheduled next week prior to ECT. 04/10:Laying in bed most of morning. Patient continues to report feeling depressed. He reports looking forward to ECT; pt stated, I think it will be a positive step to get ECT . denies SI/HI/VH/AH. Encouraged to get out of bed. Continue tx plan 04/11: Per nursing, pt did not get out of bed yesterday. Observed laying in bed this morning; encouraged to attend groups and shower. Patient continues to report feeling depressed. denies SI/HI/VH/AH. Encouraged to get out of bed. Continue tx plan. 04/12: continue current tx plan 04/13: stably depressed. PMR. start ECT tomorrow, otherwise continue current mgmt. NPO past MN. 04/14/25: got his first ECT treatment this afternoon. Patient slept for 6 hours, was medication compliant. However, this morning due to the delay of the ECT treatment, he was not happy about the delay into the afternoon. He appeared to be frustrated, irritable, and not cooperative with this provider I do not want to talk to anyone . I am done talking . I do not care when asked his last bowel movement. Per nursing, patient denies suicidal thoughts, other safety concerns. Reports he has no bowel movement x4 days. Medication this morning was held until after the ECT. He also was given citrate magnesium x1. Pending effect. 04/15: made bowel movement. ECT #2 tomorrow. no change in mood or presentation as of today. T/C increasing modafanil to 200 mg sometime next week. 04/16: completed ECT without incident. no FLOWERS today. no change in presentation otherwise. continue current mgmt. ECT #3 saturday. 04/17/2025: No changes. ECT # 3 Saturday04/19/202504/18: no changes 04/19: completed ECT #3 today. no FLOWERS, no change in presentation, no change in mood. continue current mgmt. T/C modafanil increase. 04/20: mood starting to improve. laughed, affect brighter and more flexible. ECT tomorrow, NPO after midnight. continue current mgmt otherwise. 04/21: irritable at afternoon ECT. short today. continue current mgmt. Reason for continued inpatient stay Substantial Risk for: harm to self, inability to function and rapid decompensation Time Spent With Patient Time: Total time managing care of this patient today __25__ minutes.
--- NOTE | 2025-04-21 13:33 | MHC.SHP ---
Pre-Procedural Eval Section A - 24 Hr Update-Section A only Date of Service: 04/21/25 Changes since office visit: Yes Changes in Medication and Yes Patient answered all questions; No Cold of Flu in the past 2 weeks and No New Medical Problems The patient has been examined within 24 hours of the surgical procedure. The History & Physical has been completed within 30 days and I have reviewed it.: Yes Section B - Complete if H&P > 30 days Chief Complaint: SI Allergies: Allergies Allergy/AdvReac Type Severity Reaction Status Date / Time pumpkin Allergy Unknown Unknown Verified 12/24/24 12:26 Plan I have reviewed the history and physical and performed a pertinent physical examination on my patient. No changes have occurred unless specified. Time Spent With Patient Time: Total time managing care of this patient today ____ minutes.
--- NOTE | 2025-04-21 13:38 | HO.ECTPROC ---
ECT Procedure Note Diagnosis/Treatment Date of Service: 04/21/25 Diagnosis: Major Depressive Disorder Previous ECT Date: 04/19/25 Current Treatment Number: 4 Interval Clinical Notes: remains flat severely depressed discussed change to bilateral Time: Total time managing care of this patient today ____ minutes. ECT Settings Device: THYMATRON DGx Electrode Placement: Bifrontal Program/Pulse Width: 0.50 Energy Percent: 100 Seizure Duration By EEG (in seconds): 78 Medications Administration General Anesthetic: Etomidate (16) Muscle Relaxant: Succinylcholine (100) Ancillary Medications Analgesics: Torodol - Pre ECT Miscillaneous Medications: Propofol (30) Airway Management Airway Management: Bag Mask Ventilation Treatment Recommendations Program/Pulse Width: 0.25 Notes: lower pw some post op confusion
--- NOTE | 2025-04-21 13:44 | HO.ANESPROP2 ---
[facility] Active Problems Active Problems: All Active Problems CVA (cerebral vascular accident) (Acute) Abnormal head CT (Acute) JUVENTINO (acute kidney injury) (Acute) Depression (Acute) Bipolar disorder (Acute) H/O gastric sleeve (Acute) Past Medical History Medical History Obesity LUIS (obstructive sleep apnea) HLD (hyperlipidemia) HTN (hypertension) CVA (cerebral vascular accident) Functional capacity: independent ambulation Family History Family history of problems with anesthesia: No Surgical History History of Problems with Anesthesia: No Social History Social History Household Members: Other Household Members Other:: transitional housing Housing: Other Do you presently have visiting nurse or other home services: No Patient Tobacco Use Status: Never used Tobacco Second Hand Smoke Exposure: Yes Currently Displaying Signs/Symptoms of Drug Intoxication Withdrawal: No Have you been hit, kicked, punched, or otherwise hurt by someone within the past year? If so, by whom?: No Do you feel safe in your current relationship?: No Current Relationship Is there a partner from a previous relationship who is making you feel unsafe now?: No Are you made to feel afraid or neglected: No Advance Directives: No Advance Directives Information Provided: No Do you have thoughts of harming others: None Do you have a plan to hurt others: No Plan Recently lost weight without trying: No Eating poorly because of decreased appetite: No Nutrition Risks: No Nutritional Risk Poor oral hygiene: Yes (very dry scalp) service: No Sexual orientation: Straight/Heterosexual Meds Allergies Allergy/AdvReac Type Severity Reaction Status Date / Time pumpkin Allergy Unknown Unknown Verified 12/24/24 12:26 Active Medications: Current Medications Acetaminophen (Acetaminophen 325 Mg Tablet) 650 mg PO Q6H PRN PRN Reason: Headache/Pain, Scale 1-10 Last Admin: 04/14/25 20:25 Dose: 650 mg Al Hydroxide/Mg Hydroxide (Magnesium Hydrox/Alum Hydrox 30 Ml Oral.Susp) 30 ml PO Q6H PRN PRN Reason: Heartburn/Nausea Aspirin (Aspirin Enteric Coated 81 Mg Tablet.Dr) 81 mg PO DAILY [facility] Last Admin: 04/21/25 12:00 Dose: Not Given Atorvastatin Calcium (Atorvastatin Calcium 20 Mg Tablet) 20 mg PO BEDTIME [facility] Last Admin: 04/20/25 20:57 Dose: 20 mg Bisacodyl (Bisacodyl 5 Mg Tablet.Dr) 10 mg PO DAILY PRN PRN Reason: severe Constipation Last Admin: 04/20/25 08:57 Dose: 10 mg Bupropion HCl (Bupropion Hcl Xl 150 Mg Tab.Er.24h) 450 mg PO DAILY [facility] Last Admin: 04/21/25 12:00 Dose: Not Given Docusate Sodium (Docusate Sodium 100 Mg Capsule) 100 mg PO BID [facility] Last Admin: 04/21/25 12:00 Dose: Not Given Hydroxyzine HCl (Hydroxyzine Hcl 25 Mg Tablet) 25 mg PO Q6H PRN PRN Reason: mild anxiety Last Admin: 03/26/25 23:24 Dose: 25 mg Lurasidone HCl (Lurasidone Hcl 80 Mg Tablet) 80 mg PO DAILY@1700 [facility] Last Admin: 04/20/25 17:08 Dose: 80 mg Lurasidone HCl (Lurasidone Hcl 20 Mg Tablet) 20 mg PO DAILY@1700 [facility] Last Admin: 04/20/25 17:08 Dose: 20 mg Magnesium Hydroxide (Milk Of Magnesia 30 Ml Oral.Susp) 30 ml PO DAILY PRN PRN Reason: Constipation Last Admin: 04/17/25 10:24 Dose: 30 ml Modafinil (Modafinil 100 Mg Tablet) 100 mg PO DAILY [facility] Last Admin: 04/21/25 12:00 Dose: Not Given Nicotine (Nicotine 21 Mg Patch.Td24) 21 mg TRANSDERMA DAILY PRN PRN Reason: nicotine craving Nicotine Polacrilex (Nicotine Polacrilex 2 Mg Gum) 2 mg BUCCAL Q2H PRN PRN Reason: Nicotine Cravings Olanzapine (Olanzapine 5 Mg Tablet) 5 mg PO BID PRN PRN Reason: agitation Polyethylene Glycol (Polyethylene Glycol 3350 17 Gm Powd.Pack) 17 gm PO DAILY [facility] Last Admin: 04/21/25 12:00 Dose: Not Given Senna (Sennosides 8.6 Mg Tablet) 17.2 mg PO BEDTIME [facility] Last Admin: 04/20/25 20:57 Dose: 17.2 mg Trazodone HCl (Trazodone Hcl 50 Mg Tablet) 50 mg PO BEDTIME MRX1 PRN PRN Reason: Insomnia Last Admin: 04/05/25 23:14 Dose: 50 mg Exam Height,Weight and Vital Signs: Height 5 ft 9 in Weight 105.857 kg Last Vital Signs Temp 97.1 F 04/21/25 13:04 Pulse 68 04/21/25 13:04 Resp 16 04/21/25 13:04 BP 117/79 04/21/25 13:04 Pulse Ox 98 04/21/25 13:04 O2 Del Method Room Air 04/21/25 13:04 O2 Flow Rate 6 04/14/25 13:46 Pertinent Lab Results Pertinent Lab Results: Laboratory Tests 03/26/25 03/26/25 03/27/25 14:42 15:45 08:31 WBC 9.9 RBC 4.34 L Hgb 12.8 L Hct 38.3 L MCV 88.2 MCH 29.5 MCHC 33.4 RDW 14.6 Plt Count 191 MPV 10.6 Immature Gran % (Auto) 0.2 Neut % (Auto) 61.2 Lymph % (Auto) 28.9 [place] % (Auto) 8.8 Eos % (Auto) 0.7 Baso % (Auto) 0.2 Lymph # (Auto) 2.9 [place] # (Auto) 0.9 Eos # (Auto) 0.1 Baso # (Auto) 0.0 Abs Immat Gran (auto) 0.02 Absolute Neuts (auto) 6.1 Absolute Nucleated RBC 0.000 Nucleated RBC % (auto) 0.0 Sodium 138 143 Potassium 4.4 4.2 Chloride 103 106 Carbon Dioxide 26 23 Anion Gap 13 18 BUN 18 H 16 Creatinine 1.55 H 1.19 Estim Creat Clear Calc 65.6 86.0 Estimated GFR 48 > 60 POC Glucose Random Glucose 93 78 Estimat Average Glucose 91 Hemoglobin A1c % 4.8 Calcium 9.0 9.0 Total Bilirubin 1.1 H AST 28 ALT 11 Alkaline Phosphatase 62 B-Natriuretic Peptide Total Protein 6.0 L Albumin 3.7 Triglycerides 66 Cholesterol 153 LDL Cholesterol, Calc 92 HDL Cholesterol 48 TSH 3.31 Free T4 1.09 Urine Color Yellow Urine Appearance Cloudy Urine pH 5.5 Ur Specific [place] 1.015 Urine Protein 30 (1+) H Urine Glucose (UA) Negative Urine Ketones Negative Urine Blood Negative Urine Nitrite Negative Ur Leukocyte Esterase Trace H Urine RBC 0-2 Urine WBC 0-5 Ur Squamous Epith Cells 6-10 Urine Bacteria None Seen Hyaline Casts >20 Salicylates < 5.0 L Urine Opiates Screen Not Detected Ur Buprenorphine Scrn Not Detected Ur Oxycodone Screen Not Detected Urine Methadone Screen Not Detected Urine Fentanyl Screen Not Detected Acetaminophen < 3 Ur Barbiturates Screen Not Detected Ur Phencyclidine Scrn Not Detected Ur Amphetamines Screen Not Detected U Benzodiazepines Scrn Not Detected Urine Cocaine Screen Not Detected U Marijuana (THC) Screen Not Detected Ethyl Alcohol < 10 Influenza Type A (PCR) NEGATIVE Influenza Type B (PCR) NEGATIVE RSV RNA Qual (PCR) NEGATIVE SARS-CoV-2 RNA (RT-PCR) NEGATIVE 04/06/25 04/07/25 04/07/25 14:28 08:07 21:30 WBC 9.1 RBC 4.59 L Hgb 13.4 L Hct 40.9 L MCV 89.1 MCH 29.2 MCHC 32.8 RDW 14.0 Plt Count 303 D MPV 10.6 Immature Gran % (Auto) 0.4 Neut % (Auto) 58.1 Lymph % (Auto) 32.8 [place] % (Auto) 6.4 Eos % (Auto) 2.1 Baso % (Auto) 0.2 Lymph # (Auto) 3.0 [place] # (Auto) 0.6 Eos # (Auto) 0.2 Baso # (Auto) 0.0 Abs Immat Gran (auto) 0.04 H Absolute Neuts (auto) 5.3 Absolute Nucleated RBC 0.000 Nucleated RBC % (auto) 0.0 Sodium 143 Potassium 4.6 Chloride 105 Carbon Dioxide 28 Anion Gap 15 BUN 17 H Creatinine 1.35 Estim Creat Clear Calc 75.5 Estimated GFR 56 POC Glucose Random Glucose 96 Estimat Average Glucose Hemoglobin A1c % Calcium 9.4 Total Bilirubin 0.6 AST 26 ALT 23 Alkaline Phosphatase 66 B-Natriuretic Peptide Total Protein 6.4 L Albumin 3.9 Triglycerides Cholesterol LDL Cholesterol, Calc HDL Cholesterol TSH 2.42 Free T4 Urine Color Yellow Urine Appearance Clear Urine pH 6.0 Ur Specific [place] 1.010 Urine Protein Negative Urine Glucose (UA) Negative Urine Ketones Negative Urine Blood Negative Urine Nitrite Negative Ur Leukocyte Esterase Negative Urine RBC Urine WBC Ur Squamous Epith Cells Urine Bacteria Hyaline Casts Salicylates Urine Opiates Screen Ur Buprenorphine Scrn Ur Oxycodone Screen Urine Methadone Screen Urine Fentanyl Screen Acetaminophen Ur Barbiturates Screen Ur Phencyclidine Scrn Ur Amphetamines Screen U Benzodiazepines Scrn Urine Cocaine Screen U Marijuana (THC) Screen Ethyl Alcohol Influenza Type A (PCR) Influenza Type B (PCR) RSV RNA Qual (PCR) SARS-CoV-2 RNA (RT-PCR) 04/10/25 04/20/25 09:18 20:47 WBC RBC Hgb Hct MCV MCH MCHC RDW Plt Count MPV Immature Gran % (Auto) Neut % (Auto) Lymph % (Auto) [place] % (Auto) Eos % (Auto) Baso % (Auto) Lymph # (Auto) [place] # (Auto) Eos # (Auto) Baso # (Auto) Abs Immat Gran (auto) Absolute Neuts (auto) Absolute Nucleated RBC Nucleated RBC % (auto) Sodium Potassium Chloride Carbon Dioxide Anion Gap BUN Creatinine Estim Creat Clear Calc Estimated GFR POC Glucose 102 Random Glucose Estimat Average Glucose Hemoglobin A1c % Calcium Total Bilirubin AST ALT Alkaline Phosphatase B-Natriuretic Peptide < 10 Total Protein Albumin Triglycerides Cholesterol LDL Cholesterol, Calc HDL Cholesterol TSH Free T4 Urine Color Urine Appearance Urine pH Ur Specific [place] Urine Protein Urine Glucose (UA) Urine Ketones Urine Blood Urine Nitrite Ur Leukocyte Esterase Urine RBC Urine WBC Ur Squamous Epith Cells Urine Bacteria Hyaline Casts Salicylates Urine Opiates Screen Ur Buprenorphine Scrn Ur Oxycodone Screen Urine Methadone Screen Urine Fentanyl Screen Acetaminophen Ur Barbiturates Screen Ur Phencyclidine Scrn Ur Amphetamines Screen U Benzodiazepines Scrn Urine Cocaine Screen U Marijuana (THC) Screen Ethyl Alcohol Influenza Type A (PCR) Influenza Type B (PCR) RSV RNA Qual (PCR) SARS-CoV-2 RNA (RT-PCR) Airway Mallampati Class: II TM Dist: >3cm Neck ROM: Full Partial: Upper Heart: rrr Lungs: cta Assessment and Plan Assessment Anesthesia Assessment: Anesthesia Plan Discussed and Chart Reviewed Final Anesthetic Review Family History of Problems with Anesthesia: No History of Problems with Anesthesia: No NPO: Yes ASA Class: III Final Preanesthetic Review: No Changes in Pt Med Stat, Meds/Allgs Chart Reviewed and Consent Obtained/Reviewed Patient Risk: Intermediate Procedure Risk: Intermediate Anesthetic Plan Anesthetic Plan: GA Disposition: Standard PACU
[2025-04-21] MEDS: Lactated Ringers 1,000 ML 50 ML IVCONT (14:37)
[2025-04-22 07:00] VITALS: BMI 31.6
[2025-04-22] MEDS: buPROPion HCl XL 150 MG TAB.ER.24H 450 MG PO (08:30)
[2025-04-22] MEDS: Aspirin Enteric Coated 81 MG TABLET.DR PO (08:30)
--- NOTE | 2025-04-22 12:38 | HO.PSYCHPN ---
Subjective Subjective Date of Service: 04/22/25 Reason For Visit: SI Interim History: lying in bed awake. reports no change in mood. states ECT went fine yesterday. per staff, c/o depression. denies anxiety. taking medications. slept 8 hours. Mental Status Exam Mental Status Exam Narrative: Appearance: Casually dressed, unkempt, disheveled Behavior: Calm and cooperative, PMR Eye contact is appropriate Speech: Normal loudness. slowed, flattened prosody. Thought process logical and goal-directed Thought content: On treatment. Mood: the same Affect: constricted, normo-intense SI: none expressed HI: none expressed VH/AH: none expressed Delusions: None expressed Insight/judgment: impaired Diagnostics Vital Signs (24Hr): Vital Signs - 24 hr 04/21/25 13:04 04/21/25 13:50 04/21/25 14:05 Temperature 97.1 F 98.5 F Pulse Rate 68 70 78 Respiratory Rate 16 16 16 Blood Pressure 117/79 138/60 141/78 H Pulse Oximetry 98 98 98 Oxygen Delivery Method Room Air Room Air Room Air 04/21/25 14:20 04/21/25 14:28 04/21/25 15:01 Temperature 98.2 F 97.7 F Pulse Rate 82 74 75 Respiratory Rate 16 16 16 Blood Pressure 121/50 L 120/47 L 123/76 Pulse Oximetry 95 95 Oxygen Delivery Method Room Air Room Air 04/21/25 20:00 Temperature 97.5 F Pulse Rate 88 Respiratory Rate 16 Blood Pressure 122/72 Pulse Oximetry 100 Oxygen Delivery Method Room Air BMI result Body Mass Index 34.5 Labs 04/06/25 14:28 04/06/25 14:28 Labs: Laboratory Results - last 48 hr 04/20/25 20:47 POC Glucose 102 Imaging Radiology Impressions: ITS Impressions Head CT 04/06/25 13:54 IMPRESSION: No acute intracranial hemorrhage. Bifrontal bitemporal lobes atrophy. Electronically signed by: Roque Guillen MD 04/06/2025 02:15 PM EDT Medications Medications Current Medications Acetaminophen (Acetaminophen 325 Mg Tablet) 650 mg PO Q6H PRN PRN Reason: Headache/Pain, Scale 1-10 Last Admin: 04/14/25 20:25 Dose: 650 mg Al Hydroxide/Mg Hydroxide (Magnesium Hydrox/Alum Hydrox 30 Ml Oral.Susp) 30 ml PO Q6H PRN PRN Reason: Heartburn/Nausea Aspirin (Aspirin Enteric Coated 81 Mg Tablet.) 81 mg PO DAILY [facility] Last Admin: 04/22/25 08:30 Dose: 81 mg Atorvastatin Calcium (Atorvastatin Calcium 20 Mg Tablet) 20 mg PO BEDTIME [facility] Last Admin: 04/21/25 20:45 Dose: 20 mg Bisacodyl (Bisacodyl 5 Mg Tablet.Dr) 10 mg PO DAILY PRN PRN Reason: severe Constipation Last Admin: 04/20/25 08:57 Dose: 10 mg Bupropion HCl (Bupropion Hcl Xl 150 Mg Tab.Er.24h) 450 mg PO DAILY [facility] Last Admin: 04/22/25 08:30 Dose: 450 mg Docusate Sodium (Docusate Sodium 100 Mg Capsule) 100 mg PO BID [facility] Last Admin: 04/22/25 08:30 Dose: 100 mg Hydroxyzine HCl (Hydroxyzine Hcl 25 Mg Tablet) 25 mg PO Q6H PRN PRN Reason: mild anxiety Last Admin: 03/26/25 23:24 Dose: 25 mg Lactated Ringer's (Lr) 1,000 mls @ 50 mls/hr IVCONT .Q20H [facility] Last Infusion: 04/21/25 14:38 Dose: Infused Lurasidone HCl (Lurasidone Hcl 80 Mg Tablet) 80 mg PO DAILY@1700 [facility] Last Admin: 04/21/25 16:58 Dose: 80 mg Lurasidone HCl (Lurasidone Hcl 20 Mg Tablet) 20 mg PO DAILY@1700 [facility] Last Admin: 04/21/25 16:58 Dose: 20 mg Magnesium Hydroxide (Milk Of Magnesia 30 Ml Oral.Susp) 30 ml PO DAILY PRN PRN Reason: Constipation Last Admin: 04/17/25 10:24 Dose: 30 ml Modafinil (Modafinil 100 Mg Tablet) 100 mg PO DAILY [facility] Last Admin: 04/22/25 08:30 Dose: 100 mg Naloxone HCl (Naloxone Hcl 0.4 Mg/Ml Vial) 0.04 mg IVPUSH Q5M PRN PRN Reason: Excessive sedation or RR < 8 Nicotine (Nicotine 21 Mg Patch.Td24) 21 mg TRANSDERMA DAILY PRN PRN Reason: nicotine craving Nicotine Polacrilex (Nicotine Polacrilex 2 Mg Gum) 2 mg BUCCAL Q2H PRN PRN Reason: Nicotine Cravings Olanzapine (Olanzapine 5 Mg Tablet) 5 mg PO BID PRN PRN Reason: agitation Polyethylene Glycol (Polyethylene Glycol 3350 17 Gm Powd.Pack) 17 gm PO DAILY [facility] Last Admin: 04/22/25 08:30 Dose: 17 gm Senna (Sennosides 8.6 Mg Tablet) 17.2 mg PO BEDTIME [facility] Last Admin: 04/21/25 20:45 Dose: 17.2 mg Trazodone HCl (Trazodone Hcl 50 Mg Tablet) 50 mg PO BEDTIME MRX1 PRN PRN Reason: Insomnia Last Admin: 04/05/25 23:14 Dose: 50 mg Allergies Allergies Allergy/AdvReac Type Severity Reaction Status Date / Time pumpkin Allergy Unknown Unknown Verified 12/24/24 12:26 Assessment & Plan Assessment & Plan (1) Bipolar disorder: Status: Acute Code(s): F31.9 - Bipolar disorder, unspecified (2) JUVENTINO (acute kidney injury): Status: Acute Code(s): N17.9 - Acute kidney failure, unspecified (3) CVA (cerebral vascular accident): Status: Acute Code(s): I63.9 - Cerebral infarction, unspecified (4) Abnormal head CT: Status: Acute Code(s): R93.0 - Abnormal findings on diagnostic imaging of skull and head, not elsewhere classified Plan 03/27: feels latuda 120 has been helpful. however, remains depressed. add wellbutrin XL 150 daily for depression, plan to increase to 300 mg daily in 3 days. may also consider ECT due to lack of improvement despite numerous recent hospitalizations + lethality of suicide attempts + recent self-abnegating behaviors. 03/28: no change in presentation, no requests or complaints. started wellbutrin 150 today. continue current mgmt 03/29/25: Slept well, no issues with appetite. Observed out on the unit, attended groups, engaging. Reports depression and 8/, denies anxiety. Constricted affect, congruent with mood. Denies safety concerns. Compliant with medications. Denies side effects from Wellbutrin. Continue to encourage groups. 03/30/25: Patient slept for 6 hours, was medication compliant. He attended 2 groups yesterday, however today he is more isolated, in bed a lot more time, declines a couple groups. Reports depressed but no anxiety, flat affect, depressed, but cooperative during one-to-one assessment. He is receptive with the plan of Wellbutrin increased up to 300 mg for depression. Reports passive SI, denies plan or intention. Denies other safety concerns. Encourage patient to go to groups and shower daily. Increase Wellbutrin XL to 300 mg daily for depression. He reported that he has bipolar type II. 03/31: Laying in bed. keeping to self. showered. patient reports feeling depressed ; pt stated, I'm not having a good day. I don't want to do anything . flat affect. denies SI/HI/VH/AH. Per nursing, slept 8 hours. encouraged to attend groups. continue current tx plan. 04/01/25: Patient slept for 8 hours, poor meal intake yesterday but was medication compliant. Denies side effects. When asked about if he has poor appetite as he ate only 50 of breakfast, and 25 for lunch and not eating dinner, he said because I did not do the menu, so I got what I do not like . He shower yesterday, continued to reports depression 03/21. Denied anxiety. He does not feel any difference from Wellbutrin 150 when and when it was increased up to 300 mg. Denies SI/SIB/HI/AVH, isolative self, he plans to attend groups today. This provider spoke with patient in length regarding medication trials. Per his report, has been trying so many antidepressants they just do not work, and continued to be depressed. Some of them are Zoloft, Paxil, Effexor, Celexa, Prozac, Cymbalta, Lexapro. He also having history of taking Zyprexa more than 20 years ago due to hearing voices. Then the voices was calm. He never has a take it again after. History of Abilify but not sure if it is working as he can not recall. Regarding ADLs: He said that he had food at the [facility] twice a day, but he is not showering for many days despite the fact that staff asked him to do so I just do not care about being clean . Reports very low energy, low motivation, been increased suicidal thoughts and depression. He used to love music and reading but not interested in doing anything like that anymore. Reported that he had gastric sleeve surgery back in August 2023 which he lost 230 lb. He weight 447 lb prior to the surgery. He identified that after the surgery he has been more depressed slowly over months. There was a time that he wanted to starve myself so I can when asked is that you that he has stopped eating at home. He also identified that he feel more depressed after surgery as he is not able to over eating like he did before. Family mental health illnesses: Reports that who both of his parents was depressed. Mom 11 years ago. 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 History of ECTs: Reports he had history of ECTs in 2010 when he was at in [facility].He felt worse after the treatment everything seems like a dream . He clarified that immediately after the treatment he feel that way which could be a side effects of ECT but not permanent. Educate patient on possible side effects ECTs. Patient denies having seizure during ECTs treatment, no seizure history no cardiac conditions/disease history. Reports history of hypertension, but not anymore. He also has been admitted to different hospitals for psychiatric admissions in the past couple of months. Reports staying at [facility] in December for a month. [facility] in the area names [facility]) in October for another month. Per email from his OP team- clinical director at [facility], they also express concerns of patient's conditions. It is noted that their concerns are very consistent with patient' report here on the unit. He also has been admitted to different hospitals for psychiatric admissions in the past couple of months. Reports staying at [facility] in December for a month. [facility] in the area names [facility]) in October for another month. Per email from his OP team- clinical director at [facility], they also express concerns of patient's conditions. It is noted that their concerns are very consistent with patient' report here on the unit. Alfredito has been in and out on inpatient level of care since October of this year, I believe every month, for a majority of the time. He was recently discharged from [facility] after a 1 month stay and within two hours of returning home wanted to return to the hospital, saying he was unwell, and within one day was sectioned by [facility], which is how he ended up with you now. He has been coming home and intentionally starving himself, even not eating for up to 1 week. We have known Alfredito for years and since this started in October, we have seen no significant improvement in his mental health or a return to baseline. In fact, we are observing his case as consistent with failure to thrive. We have been asking for him to be inpatient at [facility] or with you at [facility] for some time in order for him to be potentially considered for ECT level of treatment, if deemed appropriate. Multiple medication trials failture to target depressive symptoms. He will be a good candidate to get trial ECT treatment in combination with current medication regimens. Patient also agrees with the plan. We would start the treatment as soon as possible. Will discuss the case with in house psychiatrist-Dr. Ward to prepare for ECT treatment. Hope to start early next week. 04/02: Laying in bed. keeping to self. Patient continues to report feeling depressed; pt stated, I feel about the same. I spoke with the other provider and agreed to do ECT . He reports sleeping well. denies SI/HI/VH/AH. Encouraged to attend groups and shower. Continue current tx plan. 04/03: no changes- just started wellbutrin 04/04: no changes 04/05/25: report anxiety a 2-3 but still 03/21 for depression. No change since started Wellbutrin. He agrees to get Wellbutrin up to 450mg daily for depression. Isolative in room, staring up to the ceiling. Discuss with patient of option to start on Intuniv for severe depression. Patient declines it at this current time but agree to see Welbutrin increased would be helpful. He agrees with ECT. Encourage groups, he says he was at art group out to dinning area but there are too much so he went back to his room. Report not many groups offered over the weekends. 04/06/25: Patient slept for 6 hours, have a sleep study done last night. Reported that he did not sleep well. Appetite is okay. Mood is depressed 03/21, denies anxiety today. Denies suicidal thoughts, but reports he has passive SI yesterday intrusive, just do not Wanna live anymore . Denies hallucinations. Address with patient of why he having bowel movement in the shower. He said it is just one episode. Reports he feel constipated. Agree with Colace. He also inform regarding the ECT which was approved by the insurance. He compliant with medication, however reports he has not feeling any difference in terms of depression at since started on Wellbutrin. Encourage groups attendance. Observe him later on during the day reading at a table in dining area. Colace 100mg BID for constipation. ECT consult placed: Patient may be seen by tomorrow by Dr. Ward. Procedure done preparing for the ECT: Head CT scan negative, EKG normal sinus rhythm, Incomplete right bundle branch block. Borderline ECG_ no change when compare to previous EKG. Unremarkable CBC with diff. 04/07/25: Per hospitalist note: ECT risk stratification Patient without previous problems with anesthesia, has previously undergone ECT RCRI 0 points, no further cardiac workup or treatment indicated at this time EKG showed QT interval WNL, no evidence of ischemic changes Based on stated PMH, HPI, and physical exam, there are no apparent medical contraindications to the planned procedure. Patient is complaining of pelvic discomfort and constipation. We will add therapy with Senokot, MiraLax and obtain urinalysis to assess for urinary tract infection. Continue treatment with atorvastatin and aspirin for history of stroke and hyperlipidemia. 04/07/25: Patient compliant with medication, reports due to the pain abdominal, he could not sleep well last night. Continued to reports depressions 8/10, anxiety 4/10 today related to the pain. Denies suicidal thoughts or voices, isolated. Shower yesterday. Review with patient test need to be done prior to having ECT. Patient met with Dr. Ward and hospitalist for ECT clearance. Due to the pain, constipated, more laxative ordered today. Also UA other by hospitalist to rule out any infection. He is flat, low energy, low motivation, withdrawal, in room mostly, but come out to other rooms to talk to the providers 04/08/25: Patient slept for 8 hours, compliant with medications, denies side effect. Met with him in his room, reported that he slept better last night, having good bowel movement, denies diarrhea is. Informed him regarding the labs work/and UA that was negative to rule out UTI. Denies pain. Explained to patient regarding pre ECT procedures/test to prepare for the day that he going to start. We will start ECT on Saturday. Per Dr. Ward, we will taper down on Latuda, start him on Modafinil low dose to help with severe depression. Continued to reports moderate to severe depression. Denies suicidal thoughts or hallucinations. 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 He denied any significant or excessive drug exposure. I do not find any focal lesion, acute or chronic, suggestive of stroke. There was no contraindication to treatment with ECT. Otherwise treatment of this condition is supportive, symptomatic and conservative Taper down on Latuda from 120 down to 100 mg daily at 17:00 for mood. Start on Modefinil 100ng daily for severe depression, low energy, poor concentration, poor motivation. ECT will be scheduled next week on Saturday. We will received treatment for Saturday/Saturday and Saturday. 04/09/25: Patient denies pain, normal bowel movement, slept well and compliant with medications. Denies side effects. Denies suicidal thoughts or hallucinations but reports mild on anxiety and moderate to severe depression. Patient appeared to be disheveled. Encourage patient to be out of bed in attended to groups included OT groups which observe he is visible in day room after the conversation. The OT will do the [place] for pre ECT next week on Saturday prior the ECT. He started modafinil 50 mg this morning. Indication and side effects explained to patient. Patient is receptive with the plan. Correction: Modefinill 50mg daily. MOCA scheduled next week prior to ECT. 04/10:Laying in bed most of morning. Patient continues to report feeling depressed. He reports looking forward to ECT; pt stated, I think it will be a positive step to get ECT . denies SI/HI/VH/AH. Encouraged to get out of bed. Continue tx plan 04/11: Per nursing, pt did not get out of bed yesterday. Observed laying in bed this morning; encouraged to attend groups and shower. Patient continues to report feeling depressed. denies SI/HI/VH/AH. Encouraged to get out of bed. Continue tx plan. 04/12: continue current tx plan 04/13: stably depressed. PMR. start ECT tomorrow, otherwise continue current mgmt. NPO past MN. 04/14/25: got his first ECT treatment this afternoon. Patient slept for 6 hours, was medication compliant. However, this morning due to the delay of the ECT treatment, he was not happy about the delay into the afternoon. He appeared to be frustrated, irritable, and not cooperative with this provider I do not want to talk to anyone . I am done talking . I do not care when asked his last bowel movement. Per nursing, patient denies suicidal thoughts, other safety concerns. Reports he has no bowel movement x4 days. Medication this morning was held until after the ECT. He also was given citrate magnesium x1. Pending effect. 04/15: made bowel movement. ECT #2 tomorrow. no change in mood or presentation as of today. T/C increasing modafanil to 200 mg sometime next week. 04/16: completed ECT without incident. no FLOWERS today. no change in presentation otherwise. continue current mgmt. ECT #3 saturday. 04/17/2025: No changes. ECT # 3 Saturday04/19/202504/18: no changes 04/19: completed ECT #3 today. no FLOWERS, no change in presentation, no change in mood. continue current mgmt. T/C modafanil increase. 04/20: mood starting to improve. laughed, affect brighter and more flexible. ECT tomorrow, NPO after midnight. continue current mgmt otherwise. 04/21: irritable at afternoon ECT. short today. continue current mgmt. 04/22: not irritable, appears depressed, says mood is unchanged. ECT tomorrow. continue current mgmt. strongly consider increase in modafanil dosing. Reason for continued inpatient stay Substantial Risk for: harm to self and inability to function Time Spent With Patient Time: Total time managing care of this patient today ____ minutes.
[2025-04-22 15:15] VITALS: BP 90/44; PULSE 60; RESP 16; TEMP 36.5; O2SAT 100
[2025-04-22 20:00] VITALS: BP 119/61; PULSE 69; RESP 16; TEMP 36.4; O2SAT 99
[2025-04-23] VITALS (9 sets, daily range): BP systolic 94–166; BP diastolic 55–98; PULSE 65–92; RESP 14–22; TEMP 36.2–36.8; O2SAT 97–100
--- NOTE | 2025-04-23 07:10 | P.CONAN_ITS ---
[facility] Active Problems Active Problems: All Active Problems CVA (cerebral vascular accident) (Acute) Abnormal head CT (Acute) JUVENTINO (acute kidney injury) (Acute) Depression (Acute) Bipolar disorder (Acute) H/O gastric sleeve (Acute) Past Medical History Medical History Obesity LUIS (obstructive sleep apnea) HLD (hyperlipidemia) HTN (hypertension) CVA (cerebral vascular accident) Functional capacity: independent ambulation Family History Family history of problems with anesthesia: No Surgical History History of Problems with Anesthesia: No Social History Social History Household Members: Other Household Members Other:: transitional housing Housing: Other Do you presently have visiting nurse or other home services: No Patient Tobacco Use Status: Never used Tobacco Second Hand Smoke Exposure: Yes Currently Displaying Signs/Symptoms of Drug Intoxication Withdrawal: No Have you been hit, kicked, punched, or otherwise hurt by someone within the past year? If so, by whom?: No Do you feel safe in your current relationship?: No Current Relationship Is there a partner from a previous relationship who is making you feel unsafe now?: No Are you made to feel afraid or neglected: No Advance Directives: No Advance Directives Information Provided: No Do you have thoughts of harming others: None Do you have a plan to hurt others: No Plan Recently lost weight without trying: No Eating poorly because of decreased appetite: No Nutrition Risks: No Nutritional Risk Poor oral hygiene: Yes (very dry scalp) service: No Sexual orientation: Straight/Heterosexual Meds Allergies Allergy/AdvReac Type Severity Reaction Status Date / Time pumpkin Allergy Unknown Unknown Verified 12/24/24 12:26 Active Medications: Current Medications Acetaminophen (Acetaminophen 325 Mg Tablet) 650 mg PO Q6H PRN PRN Reason: Headache/Pain, Scale 1-10 Last Admin: 04/14/25 20:25 Dose: 650 mg Al Hydroxide/Mg Hydroxide (Magnesium Hydrox/Alum Hydrox 30 Ml Oral.Susp) 30 ml PO Q6H PRN PRN Reason: Heartburn/Nausea Aspirin (Aspirin Enteric Coated 81 Mg Tablet.Dr) 81 mg PO DAILY JENNIFER Last Admin: 04/22/25 08:30 Dose: 81 mg Atorvastatin Calcium (Atorvastatin Calcium 20 Mg Tablet) 20 mg PO BEDTIME JENNIFER Last Admin: 04/22/25 21:10 Dose: 20 mg Bisacodyl (Bisacodyl 5 Mg Tablet.Dr) 10 mg PO DAILY PRN PRN Reason: severe Constipation Last Admin: 04/20/25 08:57 Dose: 10 mg Bupropion HCl (Bupropion Hcl Xl 150 Mg Tab.Er.24h) 450 mg PO DAILY [facility] Last Admin: 04/22/25 08:30 Dose: 450 mg Docusate Sodium (Docusate Sodium 100 Mg Capsule) 100 mg PO BID [facility] Last Admin: 04/22/25 21:12 Dose: 100 mg Hydroxyzine HCl (Hydroxyzine Hcl 25 Mg Tablet) 25 mg PO Q6H PRN PRN Reason: mild anxiety Last Admin: 03/26/25 23:24 Dose: 25 mg Lurasidone HCl (Lurasidone Hcl 80 Mg Tablet) 80 mg PO DAILY@1700 [facility] Last Admin: 04/22/25 18:57 Dose: 80 mg Magnesium Hydroxide (Milk Of Magnesia 30 Ml Oral.Susp) 30 ml PO DAILY PRN PRN Reason: Constipation Last Admin: 04/17/25 10:24 Dose: 30 ml Modafinil (Modafinil 100 Mg Tablet) 100 mg PO DAILY [facility] Last Admin: 04/22/25 08:30 Dose: 100 mg Naloxone HCl (Naloxone Hcl 0.4 Mg/Ml Vial) 0.04 mg IVPUSH Q5M PRN PRN Reason: Excessive sedation or RR < 8 Nicotine (Nicotine 21 Mg Patch.Td24) 21 mg TRANSDERMA DAILY PRN PRN Reason: nicotine craving Nicotine Polacrilex (Nicotine Polacrilex 2 Mg Gum) 2 mg BUCCAL Q2H PRN PRN Reason: Nicotine Cravings Olanzapine (Olanzapine 5 Mg Tablet) 5 mg PO BID PRN PRN Reason: agitation Polyethylene Glycol (Polyethylene Glycol 3350 17 Gm Powd.Pack) 17 gm PO DAILY [facility] Last Admin: 04/22/25 08:30 Dose: 17 gm Senna (Sennosides 8.6 Mg Tablet) 17.2 mg PO BEDTIME [facility] Last Admin: 04/22/25 21:09 Dose: 17.2 mg Trazodone HCl (Trazodone Hcl 50 Mg Tablet) 50 mg PO BEDTIME MRX1 PRN PRN Reason: Insomnia Last Admin: 04/05/25 23:14 Dose: 50 mg Exam Height,Weight and Vital Signs: Height 5 ft 9 in Weight 97.069 kg Last Vital Signs Temp 97.1 F 04/23/25 06:37 Pulse 65 04/23/25 06:37 Resp 18 04/23/25 06:37 BP 112/59 L 04/23/25 06:31 Pulse Ox 98 04/23/25 06:37 O2 Del Method Room Air 04/23/25 06:37 O2 Flow Rate 6 04/14/25 13:46 Pertinent Lab Results Pertinent Lab Results: Laboratory Tests 03/26/25 03/26/25 03/27/25 14:42 15:45 08:31 WBC 9.9 RBC 4.34 L Hgb 12.8 L Hct 38.3 L MCV 88.2 MCH 29.5 MCHC 33.4 RDW 14.6 Plt Count 191 MPV 10.6 Immature Gran % (Auto) 0.2 Neut % (Auto) 61.2 Lymph % (Auto) 28.9 [place] % (Auto) 8.8 Eos % (Auto) 0.7 Baso % (Auto) 0.2 Lymph # (Auto) 2.9 [place] # (Auto) 0.9 Eos # (Auto) 0.1 Baso # (Auto) 0.0 Abs Immat Gran (auto) 0.02 Absolute Neuts (auto) 6.1 Absolute Nucleated RBC 0.000 Nucleated RBC % (auto) 0.0 Sodium 138 143 Potassium 4.4 4.2 Chloride 103 106 Carbon Dioxide 26 23 Anion Gap 13 18 BUN 18 H 16 Creatinine 1.55 H 1.19 Estim Creat Clear Calc 65.6 86.0 Estimated GFR 48 > 60 POC Glucose Random Glucose 93 78 Estimat Average Glucose 91 Hemoglobin A1c % 4.8 Calcium 9.0 9.0 Total Bilirubin 1.1 H AST 28 ALT 11 Alkaline Phosphatase 62 B-Natriuretic Peptide Total Protein 6.0 L Albumin 3.7 Triglycerides 66 Cholesterol 153 LDL Cholesterol, Calc 92 HDL Cholesterol 48 TSH 3.31 Free T4 1.09 Urine Color Yellow Urine Appearance Cloudy Urine pH 5.5 Ur Specific [place] 1.015 Urine Protein 30 (1+) H Urine Glucose (UA) Negative Urine Ketones Negative Urine Blood Negative Urine Nitrite Negative Ur Leukocyte Esterase Trace H Urine RBC 0-2 Urine WBC 0-5 Ur Squamous Epith Cells 6-10 Urine Bacteria None Seen Hyaline Casts >20 Salicylates < 5.0 L Urine Opiates Screen Not Detected Ur Buprenorphine Scrn Not Detected Ur Oxycodone Screen Not Detected Urine Methadone Screen Not Detected Urine Fentanyl Screen Not Detected Acetaminophen < 3 Ur Barbiturates Screen Not Detected Ur Phencyclidine Scrn Not Detected Ur Amphetamines Screen Not Detected U Benzodiazepines Scrn Not Detected Urine Cocaine Screen Not Detected U Marijuana (THC) Screen Not Detected Ethyl Alcohol < 10 Influenza Type A (PCR) NEGATIVE Influenza Type B (PCR) NEGATIVE RSV RNA Qual (PCR) NEGATIVE SARS-CoV-2 RNA (RT-PCR) NEGATIVE 04/06/25 04/07/25 04/07/25 14:28 08:07 21:30 WBC 9.1 RBC 4.59 L Hgb 13.4 L Hct 40.9 L MCV 89.1 MCH 29.2 MCHC 32.8 RDW 14.0 Plt Count 303 D MPV 10.6 Immature Gran % (Auto) 0.4 Neut % (Auto) 58.1 Lymph % (Auto) 32.8 [place] % (Auto) 6.4 Eos % (Auto) 2.1 Baso % (Auto) 0.2 Lymph # (Auto) 3.0 [place] # (Auto) 0.6 Eos # (Auto) 0.2 Baso # (Auto) 0.0 Abs Immat Gran (auto) 0.04 H Absolute Neuts (auto) 5.3 Absolute Nucleated RBC 0.000 Nucleated RBC % (auto) 0.0 Sodium 143 Potassium 4.6 Chloride 105 Carbon Dioxide 28 Anion Gap 15 BUN 17 H Creatinine 1.35 Estim Creat Clear Calc 75.5 Estimated GFR 56 POC Glucose Random Glucose 96 Estimat Average Glucose Hemoglobin A1c % Calcium 9.4 Total Bilirubin 0.6 AST 26 ALT 23 Alkaline Phosphatase 66 B-Natriuretic Peptide Total Protein 6.4 L Albumin 3.9 Triglycerides Cholesterol LDL Cholesterol, Calc HDL Cholesterol TSH 2.42 Free T4 Urine Color Yellow Urine Appearance Clear Urine pH 6.0 Ur Specific [place] 1.010 Urine Protein Negative Urine Glucose (UA) Negative Urine Ketones Negative Urine Blood Negative Urine Nitrite Negative Ur Leukocyte Esterase Negative Urine RBC Urine WBC Ur Squamous Epith Cells Urine Bacteria Hyaline Casts Salicylates Urine Opiates Screen Ur Buprenorphine Scrn Ur Oxycodone Screen Urine Methadone Screen Urine Fentanyl Screen Acetaminophen Ur Barbiturates Screen Ur Phencyclidine Scrn Ur Amphetamines Screen U Benzodiazepines Scrn Urine Cocaine Screen U Marijuana (THC) Screen Ethyl Alcohol Influenza Type A (PCR) Influenza Type B (PCR) RSV RNA Qual (PCR) SARS-CoV-2 RNA (RT-PCR) 04/10/25 04/20/25 09:18 20:47 WBC RBC Hgb Hct MCV MCH MCHC RDW Plt Count MPV Immature Gran % (Auto) Neut % (Auto) Lymph % (Auto) [place] % (Auto) Eos % (Auto) Baso % (Auto) Lymph # (Auto) [place] # (Auto) Eos # (Auto) Baso # (Auto) Abs Immat Gran (auto) Absolute Neuts (auto) Absolute Nucleated RBC Nucleated RBC % (auto) Sodium Potassium Chloride Carbon Dioxide Anion Gap BUN Creatinine Estim Creat Clear Calc Estimated GFR POC Glucose 102 Random Glucose Estimat Average Glucose Hemoglobin A1c % Calcium Total Bilirubin AST ALT Alkaline Phosphatase B-Natriuretic Peptide < 10 Total Protein Albumin Triglycerides Cholesterol LDL Cholesterol, Calc HDL Cholesterol TSH Free T4 Urine Color Urine Appearance Urine pH Ur Specific [place] Urine Protein Urine Glucose (UA) Urine Ketones Urine Blood Urine Nitrite Ur Leukocyte Esterase Urine RBC Urine WBC Ur Squamous Epith Cells Urine Bacteria Hyaline Casts Salicylates Urine Opiates Screen Ur Buprenorphine Scrn Ur Oxycodone Screen Urine Methadone Screen Urine Fentanyl Screen Acetaminophen Ur Barbiturates Screen Ur Phencyclidine Scrn Ur Amphetamines Screen U Benzodiazepines Scrn Urine Cocaine Screen U Marijuana (THC) Screen Ethyl Alcohol Influenza Type A (PCR) Influenza Type B (PCR) RSV RNA Qual (PCR) SARS-CoV-2 RNA (RT-PCR) Airway Mallampati Class: III TM Dist: >3cm Neck ROM: Full Partial: Upper Heart: rrr Lungs: cta Assessment and Plan Assessment Anesthesia Assessment: Anesthesia Plan Discussed and Chart Reviewed Final Anesthetic Review Family History of Problems with Anesthesia: No History of Problems with Anesthesia: No NPO: Yes ASA Class: III Final Preanesthetic Review: No Changes in Pt Med Stat, Meds/Allgs Chart Reviewed and Consent Obtained/Reviewed Patient Risk: Intermediate Procedure Risk: Intermediate Anesthetic Plan Anesthetic Plan: GA Disposition: Standard PACU
--- NOTE | 2025-04-23 07:40 | MHC.SHP ---
Pre-Procedural Eval Section A - 24 Hr Update-Section A only Date of Service: 04/23/25 Changes since office visit: Yes Changes in Medication and Yes Patient answered all questions; No Cold of Flu in the past 2 weeks and No New Medical Problems The patient has been examined within 24 hours of the surgical procedure. The History & Physical has been completed within 30 days and I have reviewed it.: Yes Section B - Complete if H&P > 30 days Chief Complaint: SI Allergies: Allergies Allergy/AdvReac Type Severity Reaction Status Date / Time pumpkin Allergy Unknown Unknown Verified 12/24/24 12:26 Plan I have reviewed the history and physical and performed a pertinent physical examination on my patient. No changes have occurred unless specified. Time Spent With Patient Time: Total time managing care of this patient today ____ minutes.
--- NOTE | 2025-04-23 08:01 | HO.ECTPROC ---
ECT Procedure Note Diagnosis/Treatment Date of Service: 04/23/25 Diagnosis: Bipolar disorder Previous ECT Date: 04/21/25 Current Treatment Number: 5 Treatment: Series Interval Clinical Notes: Pt seen flat dysphoric withdrawn had come down with feces poor self care tx bf 0.25 Time: Total time managing care of this patient today _30___ minutes. ECT Settings Device: THYMATRON DGx Electrode Placement: Bifrontal Program/Pulse Width: 0.25 Energy Percent: 65 Seizure Duration By EEG (in seconds): 52 Medications Administration General Anesthetic: Etomidate (18) Muscle Relaxant: Succinylcholine (100) Ancillary Medications Analgesics: Torodol - Pre ECT Airway Management Airway Management: Bag Mask Ventilation Treatment Recommendations Notes: reevaluate bf vs rul based on pt response case reviewed with dr hannon
[2025-04-23] MEDS: Aspirin Enteric Coated 81 MG TABLET.DR PO (09:57)
[2025-04-23] MEDS: buPROPion HCl XL 300 MG TAB.ER.24H PO (10:23)
[2025-04-23 10:42] LABS: MANUAL DIFF FLAG NO
[2025-04-23 10:44] LABS: Hematocrit 41.5 % (42.0-52.0); Hemoglobin 14.0 g/dl (14.0-18.0); Imm Gran Abs Auto 0.04 X10*3/uL (0.00-0.03); Imm Gran Pct Auto 0.5 % (0.0-0.4); Lymphocytes Absolute Auto 2.9 X10*3/uL (1.2-4.9); Mean Corpuscular HGB Conc 33.7 g/dl (31.0-36.0); Mean Corpuscular Hemoglobin 29.6 pg (27.0-33.0); Mean Corpuscular Volume 87.7 fL (80.0-98.0); NRBC Abs Auto 0.000 X10*3/uL (0.0-0.012); NRBC Pct Auto 0.0 /100WBC (0.0-0.2); Platelet Count 233 X10*3/uL (160-400); Red Blood Count 4.73 X10*6/uL (4.60-5.80); White Blood Count 8.6 X10*3/uL (4.8-10.8)
[2025-04-23 10:59] LABS: Alanine Aminotransferase 17 U/L (0-40); Albumin Level 3.6 g/dL (3.5-5.0); Alkaline Phosphatase 65 U/L (39-117); Anion Gap 12 (12-20); Aspartate Amino Transferase 20 U/L (5-37); Blood Urea Nitrogen 21 mg/dL (9-16); Calcium 8.8 mg/dL (8.4-10.2); Carbon Dioxide 27 mmol/L (22-29); Chloride 105 mmol/L (96-108); Creatinine Clr Calc Pharmacy 73.3; Estimated Glomerular Filt Rate 54; Potassium 4.6 mmol/L (3.3-5.1); Sodium 139 mmol/L (135-145); Total Protein 6.0 g/dL (6.5-8.0)
[2025-04-23 11:22] LABS: Syphilis Screen Nonreactive (Nonreactive)
--- NOTE | 2025-04-23 14:22 | P.PNPSI_ITS ---
Subjective Subjective Date of Service: 04/23/25 Reason For Visit: SI depression Subjective Notes: Conditional Voluntary Healthcare Proxy: No Guardianship: No Interim History: Patient seen psychiatric follow-up case reviewed in treatment planning chart reviewed patient seen. See ECT note change to bilateral. Monitor response. Patient seems almost catatonic internally preoccupied flat dysphoric minimally engaged psychomotor retarded. Medication Compliance: Yes Mental Status Exam Mental Status Exam Narrative: Appearance: Casually dressed, unkempt, appear disheveled even with shower. Behavior: Calm and cooperative, PMR Eye contact is appropriate Speech: Soft slowed, flattened prosody. Thought process logical and goal-directed poverty of content Thought content: On treatment. Mood: Severe depression hopeless helpless Affect: constricted, normo-intense SI: Denies act diff in this setting HI: Denies VH/AH: Denies Delusions: Denies Insight/judgment: impaired could not describe why he let himself be covered in feces Diagnostics Vital Signs (24Hr): Vital Signs - 24 hr 04/22/25 15:15 04/22/25 20:00 04/23/25 06:31 Temperature 97.7 F 97.6 F 97.6 F Pulse Rate 60 69 74 Respiratory Rate 16 16 16 Blood Pressure 90/44 L 119/61 112/59 L Pulse Oximetry 100 99 99 Oxygen Delivery Method Room Air Room Air 04/23/25 06:37 04/23/25 08:00 04/23/25 08:00 Temperature 97.1 F 98 F 98.3 F Pulse Rate 65 91 67 Respiratory Rate 18 22 H 17 Blood Pressure 153/78 H 117/77 Pulse Oximetry 98 100 99 Oxygen Delivery Method Room Air Room Air Room Air 04/23/25 08:05 04/23/25 08:10 04/23/25 08:15 Temperature Pulse Rate 89 92 89 Respiratory Rate 18 22 H 14 Blood Pressure 147/98 H 166/90 H 153/75 H Pulse Oximetry 100 99 98 Oxygen Delivery Method Room Air Room Air Room Air 04/23/25 08:30 Temperature 98.3 F Pulse Rate 69 Respiratory Rate 22 H Blood Pressure 146/78 H Pulse Oximetry 98 Oxygen Delivery Method Room Air BMI result Body Mass Index 31.6 Labs 04/23/25 10:35 04/23/25 10:35 Labs: Laboratory Results - last 48 hr 04/23/25 10:35 WBC 8.6 RBC 4.73 Hgb 14.0 Hct 41.5 L MCV 87.7 MCH 29.6 MCHC 33.7 RDW 13.2 Plt Count 233 MPV 10.3 Immature Gran % (Auto) 0.5 H Neut % (Auto) 58.3 Lymph % (Auto) 33.4 [place] % (Auto) 5.9 Eos % (Auto) 1.6 Baso % (Auto) 0.3 Lymph # (Auto) 2.9 [place] # (Auto) 0.5 Eos # (Auto) 0.1 Baso # (Auto) 0.0 Abs Immat Gran (auto) 0.04 H Absolute Neuts (auto) 5.0 Absolute Nucleated RBC 0.000 Nucleated RBC % (auto) 0.0 Sodium 139 Potassium 4.6 Chloride 105 Carbon Dioxide 27 Anion Gap 12 BUN 21 H Creatinine 1.40 Estim Creat Clear Calc 73.3 Estimated GFR 54 Random Glucose 87 Calcium 8.8 D Total Bilirubin 0.8 AST 20 ALT 17 Alkaline Phosphatase 65 Total Protein 6.0 L Albumin 3.6 T.pallidum Ab (EIA) Nonreactive Imaging Radiology Impressions: ITS Impressions Head CT 04/06/25 13:54 IMPRESSION: No acute intracranial hemorrhage. Bifrontal bitemporal lobes atrophy. Electronically signed by: Roque Guillen MD 04/06/2025 02:15 PM EDT Medications Medications Current Medications Acetaminophen (Acetaminophen 325 Mg Tablet) 650 mg PO Q6H PRN PRN Reason: Headache/Pain, Scale 1-10 Last Admin: 04/14/25 20:25 Dose: 650 mg Al Hydroxide/Mg Hydroxide (Magnesium Hydrox/Alum Hydrox 30 Ml Oral.Susp) 30 ml PO Q6H PRN PRN Reason: Heartburn/Nausea Aspirin (Aspirin Enteric Coated 81 Mg Tablet.) 81 mg PO DAILY [facility] Last Admin: 04/23/25 09:57 Dose: 81 mg Atorvastatin Calcium (Atorvastatin Calcium 20 Mg Tablet) 20 mg PO BEDTIME [facility] Last Admin: 04/22/25 21:10 Dose: 20 mg Bisacodyl (Bisacodyl 5 Mg Tablet.) 10 mg PO DAILY PRN PRN Reason: severe Constipation Last Admin: 04/20/25 08:57 Dose: 10 mg Bupropion HCl (Bupropion Hcl Xl 300 Mg Tab.Er.24h) 300 mg PO DAILY [facility] Last Admin: 04/23/25 10:23 Dose: 300 mg Docusate Sodium (Docusate Sodium 100 Mg Capsule) 100 mg PO BID [facility] Last Admin: 04/23/25 10:00 Dose: Not Given Hydroxyzine HCl (Hydroxyzine Hcl 25 Mg Tablet) 25 mg PO Q6H PRN PRN Reason: mild anxiety Last Admin: 03/26/25 23:24 Dose: 25 mg Lurasidone HCl (Lurasidone Hcl 80 Mg Tablet) 80 mg PO DAILY@1700 [facility] Last Admin: 04/22/25 18:57 Dose: 80 mg Magnesium Hydroxide (Milk Of Magnesia 30 Ml Oral.Susp) 30 ml PO DAILY PRN PRN Reason: Constipation Last Admin: 04/17/25 10:24 Dose: 30 ml Modafinil (Modafinil 100 Mg Tablet) 100 mg PO DAILY [facility] Last Admin: 04/23/25 09:57 Dose: 100 mg Naloxone HCl (Naloxone Hcl 0.4 Mg/Ml Vial) 0.04 mg IVPUSH Q5M PRN PRN Reason: Excessive sedation or RR < 8 Nicotine (Nicotine 21 Mg Patch.Td24) 21 mg TRANSDERMA DAILY PRN PRN Reason: nicotine craving Nicotine Polacrilex (Nicotine Polacrilex 2 Mg Gum) 2 mg BUCCAL Q2H PRN PRN Reason: Nicotine Cravings Olanzapine (Olanzapine 5 Mg Tablet) 5 mg PO BID PRN PRN Reason: agitation Polyethylene Glycol (Polyethylene Glycol 3350 17 Gm Powd.Pack) 17 gm PO DAILY [facility] Last Admin: 04/23/25 10:00 Dose: Not Given Senna (Sennosides 8.6 Mg Tablet) 17.2 mg PO BEDTIME [facility] Last Admin: 04/22/25 21:09 Dose: 17.2 mg Trazodone HCl (Trazodone Hcl 50 Mg Tablet) 50 mg PO BEDTIME MRX1 PRN PRN Reason: Insomnia Last Admin: 04/05/25 23:14 Dose: 50 mg Allergies Allergies Allergy/AdvReac Type Severity Reaction Status Date / Time pumpkin Allergy Unknown Unknown Verified 12/24/24 12:26 Assessment & Plan Assessment & Plan (1) Bipolar disorder: Status: Acute Code(s): F31.9 - Bipolar disorder, unspecified (2) JUVENTINO (acute kidney injury): Status: Acute Code(s): N17.9 - Acute kidney failure, unspecified (3) CVA (cerebral vascular accident): Status: Acute Code(s): I63.9 - Cerebral infarction, unspecified (4) Abnormal head CT: Status: Acute Code(s): R93.0 - Abnormal findings on diagnostic imaging of skull and head, not elsewhere classified Plan 03/27: feels latuda 120 has been helpful. however, remains depressed. add wellbutrin XL 150 daily for depression, plan to increase to 300 mg daily in 3 days. may also consider ECT due to lack of improvement despite numerous recent hospitalizations + lethality of suicide attempts + recent self-abnegating behaviors. 03/28: no change in presentation, no requests or complaints. started wellbutrin 150 today. continue current mgmt 03/29/25: Slept well, no issues with appetite. Observed out on the unit, attended groups, engaging. Reports depression and 03/21, denies anxiety. Constricted affect, congruent with mood. Denies safety concerns. Compliant with medications. Denies side effects from Wellbutrin. Continue to encourage groups. 03/30/25: Patient slept for 6 hours, was medication compliant. He attended 2 groups yesterday, however today he is more isolated, in bed a lot more time, declines a couple groups. Reports depressed but no anxiety, flat affect, depressed, but cooperative during one-to-one assessment. He is receptive with the plan of Wellbutrin increased up to 300 mg for depression. Reports passive SI, denies plan or intention. Denies other safety concerns. Encourage patient to go to groups and shower daily. Increase Wellbutrin XL to 300 mg daily for depression. He reported that he has bipolar type II. 03/31: Laying in bed. keeping to self. showered. patient reports feeling depressed ; pt stated, I'm not having a good day. I don't want to do anything . flat affect. denies SI/HI/VH/AH. Per nursing, slept 8 hours. encouraged to attend groups. continue current tx plan. 04/01/25: Patient slept for 8 hours, poor meal intake yesterday but was medication compliant. Denies side effects. When asked about if he has poor appetite as he ate only 50 of breakfast, and 25 for lunch and not eating dinner, he said because I did not do the menu, so I got what I do not like . He shower yesterday, continued to reports depression 03/21. Denied anxiety. He does not feel any difference from Wellbutrin 150 when and when it was increased up to 300 mg. Denies SI/SIB/HI/AVH, isolative self, he plans to attend groups today. This provider spoke with patient in length regarding medication trials. Per his report, has been trying so many antidepressants they just do not work, and continued to be depressed. Some of them are Zoloft, Paxil, Effexor, Celexa, Prozac, Cymbalta, Lexapro. He also having history of taking Zyprexa more than 20 years ago due to hearing voices. Then the voices was calm. He never has a take it again after. History of Abilify but not sure if it is working as he can not recall. Regarding ADLs: He said that [facility] day, but he is not showering for many days despite the fact that staff asked him to do so I just do not care about being clean . Reports very low energy, low motivation, been increased suicidal thoughts and depression. He used to love music and reading but not interested in doing anything like that anymore. Reported that he had gastric sleeve surgery back in August 2023 which he lost 230 lb. He weight 447 lb prior to the surgery. He identified that after the surgery he has been more depressed slowly over months. There was a time that he wanted to starve myself so I can when asked is that you that he has stopped eating at home. He also identified that he feel more depressed after surgery as he is not able to over eating like he did before. Family mental health illnesses: Reports that who both of his parents was depressed. Mom 11 years ago. 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 History of ECTs: Reports he had history of ECTs in 2010 when he was at in [facility].He felt worse after the treatment everything seems like a dream . He clarified that immediately after the treatment he feel that way which could be a side effects of ECT but not permanent. Educate patient on possible side effects ECTs. Patient denies having seizure during ECTs treatment, no seizure history no cardiac conditions/disease history. Reports history of hypertension, but not anymore. He also has been admitted to different hospitals for psychiatric admissions in the past couple of months. Reports staying at [facility] in December for a month. [facility] hospital in the area names [facility]) in October for another month. Per email from his OP team- clinical director at [facility], they also express concerns of patient's conditions. It is noted that their concerns are very consistent with patient' report here on the unit. He also has been admitted to different hospitals for psychiatric admissions in the past couple of months. Reports staying at [facility] in December for a month. [facility] hospital in the area names [facility]) in October for another month. Per email from his OP team- clinical director at [facility], they also express concerns of patient's conditions. It is noted that their concerns are very consistent with patient' report here on the unit. Alfredito has been in and out on inpatient level of care since October of this year, I believe every month, for a majority of the time. He was recently discharged from [facility] after a 1 month stay and within two hours of returning home wanted to return to the hospital, saying he was unwell, and within one day was sectioned by [facility], which is how he ended up with you now. He has been coming home and intentionally starving himself, even not eating for up to 1 week. We have known Alfredito for years and since this started in October, we have seen no significant improvement in his mental health or a return to baseline. In fact, we are observing his case as consistent with failure to thrive. We have been asking for him to be inpatient at [facility] or with you at [facility] for some time in order for him to be potentially considered for ECT level of treatment, if deemed appropriate. Multiple medication trials failture to target depressive symptoms. He will be a good candidate to get trial ECT treatment in combination with current medication regimens. Patient also agrees with the plan. We would start the treatment as soon as possible. Will discuss the case with in house psychiatrist-Dr. Ward to prepare for ECT treatment. Hope to start early next week. 04/02: Laying in bed. keeping to self. Patient continues to report feeling depressed; pt stated, I feel about the same. I spoke with the other provider and agreed to do ECT . He reports sleeping well. denies SI/HI/VH/AH. Encouraged to attend groups and shower. Continue current tx plan. 04/03: no changes- just started wellbutrin 04/04: no changes 04/05/25: report anxiety a 2-3/10 but still 8/10 for depression. No change since started Wellbutrin. He agrees to get Wellbutrin up to 450mg daily for depression. Isolative in room, staring up to the ceiling. Discuss with patient of option to start on Intuniv for severe depression. Patient declines it at this current time but agree to see Welbutrin increased would be helpful. He agrees with ECT. Encourage groups, he says he was at art group out to dinning area but there are too much so he went back to his room. Report not many groups offered over the weekends. 04/06/25: Patient slept for 6 hours, have a sleep study done last night. Reported that he did not sleep well. Appetite is okay. Mood is depressed 03/21, denies anxiety today. Denies suicidal thoughts, but reports he has passive SI yesterday intrusive, just do not Wanna live anymore . Denies hallucinations. Address with patient of why he having bowel movement in the shower. He said it is just one episode. Reports he feel constipated. Agree with Colace. He also inform regarding the ECT which was approved by the insurance. He compliant with medication, however reports he has not feeling any difference in terms of depression at since started on Wellbutrin. Encourage groups attendance. Observe him later on during the day reading at a table in dining area. Colace 100mg BID for constipation. ECT consult placed: Patient may be seen by tomorrow by Dr. Ward. Procedure done preparing for the ECT: Head CT scan negative, EKG normal sinus rhythm, Incomplete right bundle branch block. Borderline ECG_ no change when compare to previous EKG. Unremarkable CBC with diff. 04/07/25: Per hospitalist note: ECT risk stratification Patient without previous problems with anesthesia, has previously undergone ECT RCRI 0 points, no further cardiac workup or treatment indicated at this time EKG showed QT interval WNL, no evidence of ischemic changes Based on stated PMH, HPI, and physical exam, there are no apparent medical contraindications to the planned procedure. Patient is complaining of pelvic discomfort and constipation. We will add therapy with Senokot, MiraLax and obtain urinalysis to assess for urinary tract infection. Continue treatment with atorvastatin and aspirin for history of stroke and hyperlipidemia. 04/07/25: Patient compliant with medication, reports due to the pain abdominal, he could not sleep well last night. Continued to reports depressions 8/10, anxiety 4/10 today related to the pain. Denies suicidal thoughts or voices, isolated. Shower yesterday. Review with patient test need to be done prior to having ECT. Patient met with Dr. Ward and hospitalist for ECT clearance. Due to the pain, constipated, more laxative ordered today. Also UA other by hospitalist to rule out any infection. He is flat, low energy, low motivation, withdrawal, in room mostly, but come out to other rooms to talk to the providers 04/08/25: Patient slept for 8 hours, compliant with medications, denies side effect. Met with him in his room, reported that he slept better last night, having good bowel movement, denies diarrhea is. Informed him regarding the labs work/and UA that was negative to rule out UTI. Denies pain. Explained to patient regarding pre ECT procedures/test to prepare for the day that he going to start. We will start ECT on Saturday. Per Dr. Ward, we will taper down on Latuda, start him on Modafinil low dose to help with severe depression. Continued to reports moderate to severe depression. Denies suicidal thoughts or hallucinations. 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 He denied any significant or excessive drug exposure. I do not find any focal lesion, acute or chronic, suggestive of stroke. There was no contraindication to treatment with ECT. Otherwise treatment of this condition is supportive, symptomatic and conservative Taper down on Latuda from 120 down to 100 mg daily at 17:00 for mood. Start on Modefinil 100ng daily for severe depression, low energy, poor concentration, poor motivation. ECT will be scheduled next week on Saturday. We will received treatment for Saturday/Saturday and Saturday. 04/09/25: Patient denies pain, normal bowel movement, slept well and compliant with medications. Denies side effects. Denies suicidal thoughts or hallucinations but reports mild on anxiety and moderate to severe depression. Patient appeared to be disheveled. Encourage patient to be out of bed in attended to groups included OT groups which observe he is visible in day room after the conversation. The OT will do the [place] for pre ECT next week on Saturday prior the ECT. He started modafinil 50 mg this morning. Indication and side effects explained to patient. Patient is receptive with the plan. Correction: Modefinill 50mg daily. MOCA scheduled next week prior to ECT. 04/10:Laying in bed most of morning. Patient continues to report feeling depressed. He reports looking forward to ECT; pt stated, I think it will be a positive step to get ECT . denies SI/HI/VH/AH. Encouraged to get out of bed. Continue tx plan 04/11: Per nursing, pt did not get out of bed yesterday. Observed laying in bed this morning; encouraged to attend groups and shower. Patient continues to report feeling depressed. denies SI/HI/VH/AH. Encouraged to get out of bed. Continue tx plan. 04/12: continue current tx plan 04/13: stably depressed. PMR. start ECT tomorrow, otherwise continue current mgmt. NPO past MN. 04/14/25: got his first ECT treatment this afternoon. Patient slept for 6 hours, was medication compliant. However, this morning due to the delay of the ECT treatment, he was not happy about the delay into the afternoon. He appeared to be frustrated, irritable, and not cooperative with this provider I do not want to talk to anyone . I am done talking . I do not care when asked his last bowel movement. Per nursing, patient denies suicidal thoughts, other safety concerns. Reports he has no bowel movement x4 days. Medication this morning was held until after the ECT. He also was given citrate magnesium x1. Pending effect. 04/15: made bowel movement. ECT #2 tomorrow. no change in mood or presentation as of today. T/C increasing modafanil to 200 mg sometime next week. 04/16: completed ECT without incident. no FLOWERS today. no change in presentation otherwise. continue current mgmt. ECT #3 saturday. 04/17/2025: No changes. ECT # 3 Saturday04/19/202504/18: no changes 04/19: completed ECT #3 today. no FLOWERS, no change in presentation, no change in mood. continue current mgmt. T/C modafanil increase. 04/20: mood starting to improve. laughed, affect brighter and more flexible. ECT tomorrow, NPO after midnight. continue current mgmt otherwise. 04/21: irritable at afternoon ECT. short today. continue current mgmt. 04/22: not irritable, appears depressed, says mood is unchanged. ECT tomorrow. continue current mgmt. strongly consider increase in modafanil dosing. 04/23/2025 Patient seen ECT completed bilaterally. Patient with markedly poor ADLs almost catatonic like allowing himself to be covered in feces not showering or caring for himself. Change ECT to 0.25 would follow-up on response to bilateral treatment if to withdrawn would may be secondary to bilateral and might consider return to right unilateral. Wellbutrin lowered to 300 mg modafinil was started at 100 mg can consider increase to 150 mg targeting apathy lethargy. Patient started on lorazepam 1 mg p.o. t.i.d. had test doses and seemed significantly improved with more fluid speech and increase range of affect hold lorazepam night prior to ECT Patient educated on: medication risk/benefits and ECT Informed Consent: further education needed Reason for continued inpatient stay Substantial Risk for: harm to self, inability to function and rapid decompensation Time Spent With Patient Time: Total time managing care of this patient today _30___ minutes.
[2025-04-24 08:00] VITALS: BP 109/58; PULSE 66; RESP 18; TEMP 36.7; O2SAT 98
[2025-04-24] MEDS: buPROPion HCl XL 300 MG TAB.ER.24H PO (09:09)
[2025-04-24] MEDS: Aspirin Enteric Coated 81 MG TABLET.DR PO (09:10)
--- NOTE | 2025-04-24 09:26 | P.PNPSI_ITS ---
Subjective Subjective Date of Service: 04/24/25 Reason For Visit: SI Subjective Notes: Conditional Voluntary Healthcare Proxy: No Guardianship: No Medical Problems Affecting Mental Status: No Interim History: Medical record and nursing notes reviewed; case discussed during rounds with team/nursing staff, and met with patient for supportive therapy/psychoeducation, as well as medication management. Patient slept for 8 hours, no appetite issues. Denies SI/SIB/HI/AVH. Report anxiety a 2/10 and anxiety an 8/10 which he says he does not feel much different yet from ECT. He denies short term memory. He denies FLOWERS or tireness now but says shortly after ECT he had FLOWERS from yesterday which has been gone. He reports normal BM which laxative was held yesterday. Observed patient spent couple hours in dinning areas, eating out in activity room and spent time watching TV. Nursing also reports patient attended group in the art room as well. He also showered yesterday. He is visible, but quiet keep to self, flat affect, depressed mood. Slightly improvement compare to last visit that this provider saw him about 1-2 weeks ago. Medication Compliance: Yes Side effects from medications: No Attending Groups: No Review of Systems Acute medical concerns: No Medical Review of Systems: unchanged Review of Systems Review of Systems Constipation improving. No SOB/Wheezing. No N/V. No FLOWERS or cough. Yes all other systems are reviewed and are negative Mental Status Exam Mental Status Exam Narrative: Appearance: Casually dressed, unkempt, appear disheveled even with shower. Behavior: Calm and cooperative, PMR Eye contact is appropriate Speech: Normal loudness. slowed, flattened prosody. Thought process logical and goal-directed Thought content: On treatment. Mood: mild anxiety and moderate depresion Affect: constricted, normo-intense SI: Denies HI: Denies VH/AH: Denies Delusions: Denies Insight/judgment: impaired Diagnostics Vital Signs (24Hr): Vital Signs - 24 hr 04/23/25 19:45 04/23/25 20:00 04/24/25 08:00 Temperature 97.5 F 98.1 F Pulse Rate 78 66 Respiratory Rate 16 18 Blood Pressure 94/55 L 110/62 109/58 L Pulse Oximetry 97 98 Oxygen Delivery Method Room Air Room Air BMI result Body Mass Index 31.6 Labs 04/23/25 10:35 04/23/25 10:35 Labs: Laboratory Results - last 48 hr 04/23/25 10:35 WBC 8.6 RBC 4.73 Hgb 14.0 Hct 41.5 L MCV 87.7 MCH 29.6 MCHC 33.7 RDW 13.2 Plt Count 233 MPV 10.3 Immature Gran % (Auto) 0.5 H Neut % (Auto) 58.3 Lymph % (Auto) 33.4 [place] % (Auto) 5.9 Eos % (Auto) 1.6 Baso % (Auto) 0.3 Lymph # (Auto) 2.9 [place] # (Auto) 0.5 Eos # (Auto) 0.1 Baso # (Auto) 0.0 Abs Immat Gran (auto) 0.04 H Absolute Neuts (auto) 5.0 Absolute Nucleated RBC 0.000 Nucleated RBC % (auto) 0.0 Sodium 139 Potassium 4.6 Chloride 105 Carbon Dioxide 27 Anion Gap 12 BUN 21 H Creatinine 1.40 Estim Creat Clear Calc 73.3 Estimated GFR 54 Random Glucose 87 Calcium 8.8 D Total Bilirubin 0.8 AST 20 ALT 17 Alkaline Phosphatase 65 Total Protein 6.0 L Albumin 3.6 T.pallidum Ab (EIA) Nonreactive Imaging Radiology Impressions: ITS Impressions Head CT 04/06/25 13:54 IMPRESSION: No acute intracranial hemorrhage. Bifrontal bitemporal lobes atrophy. Electronically signed by: Roque Guillen MD 04/06/2025 02:15 PM EDT RP Medications Medications Current Medications Acetaminophen (Acetaminophen 325 Mg Tablet) 650 mg PO Q6H PRN PRN Reason: Headache/Pain, Scale 1-10 Last Admin: 04/14/25 20:25 Dose: 650 mg Al Hydroxide/Mg Hydroxide (Magnesium Hydrox/Alum Hydrox 30 Ml Oral.Susp) 30 ml PO Q6H PRN PRN Reason: Heartburn/Nausea Aspirin (Aspirin Enteric Coated 81 Mg Tablet.) 81 mg PO DAILY [facility] Last Admin: 04/24/25 09:10 Dose: 81 mg Atorvastatin Calcium (Atorvastatin Calcium 20 Mg Tablet) 20 mg PO BEDTIME JENNIFER Last Admin: 04/23/25 21:31 Dose: 20 mg Bisacodyl (Bisacodyl 5 Mg Tablet.) 10 mg PO DAILY PRN PRN Reason: severe Constipation Last Admin: 04/20/25 08:57 Dose: 10 mg Bupropion HCl (Bupropion Hcl Xl 300 Mg Tab.Er.24h) 300 mg PO DAILY [facility] Last Admin: 04/24/25 09:09 Dose: 300 mg Docusate Sodium (Docusate Sodium 100 Mg Capsule) 100 mg PO BID [facility] Last Admin: 04/23/25 21:34 Dose: Not Given Hydroxyzine HCl (Hydroxyzine Hcl 25 Mg Tablet) 25 mg PO Q6H PRN PRN Reason: mild anxiety Last Admin: 03/26/25 23:24 Dose: 25 mg Lorazepam (Lorazepam 1 Mg Tablet) 1 mg PO TID [facility] Last Admin: 04/24/25 09:10 Dose: 1 mg Lurasidone HCl (Lurasidone Hcl 80 Mg Tablet) 80 mg PO DAILY@1700 [facility] Last Admin: 04/23/25 17:15 Dose: 80 mg Magnesium Hydroxide (Milk Of Magnesia 30 Ml Oral.Susp) 30 ml PO DAILY PRN PRN Reason: Constipation Last Admin: 04/17/25 10:24 Dose: 30 ml Modafinil (Modafinil 100 Mg Tablet) 100 mg PO DAILY [facility] Last Admin: 04/24/25 09:09 Dose: 100 mg Naloxone HCl (Naloxone Hcl 0.4 Mg/Ml Vial) 0.04 mg IVPUSH Q5M PRN PRN Reason: Excessive sedation or RR < 8 Nicotine (Nicotine 21 Mg Patch.Td24) 21 mg TRANSDERMA DAILY PRN PRN Reason: nicotine craving Nicotine Polacrilex (Nicotine Polacrilex 2 Mg Gum) 2 mg BUCCAL Q2H PRN PRN Reason: Nicotine Cravings Olanzapine (Olanzapine 5 Mg Tablet) 5 mg PO BID PRN PRN Reason: agitation Polyethylene Glycol (Polyethylene Glycol 3350 17 Gm Powd.Pack) 17 gm PO DAILY [facility] Last Admin: 04/23/25 10:00 Dose: Not Given Senna (Sennosides 8.6 Mg Tablet) 17.2 mg PO BEDTIME [facility] Last Admin: 04/23/25 21:34 Dose: Not Given Trazodone HCl (Trazodone Hcl 50 Mg Tablet) 50 mg PO BEDTIME MRX1 PRN PRN Reason: Insomnia Last Admin: 04/05/25 23:14 Dose: 50 mg Allergies Allergies Allergy/AdvReac Type Severity Reaction Status Date / Time pumpkin Allergy Unknown Unknown Verified 05/15/25 12:26 Assessment & Plan Assessment & Plan (1) Bipolar disorder: Status: Acute Code(s): F31.9 - Bipolar disorder, unspecified (2) JUVENTINO (acute kidney injury): Status: Acute Code(s): N17.9 - Acute kidney failure, unspecified (3) CVA (cerebral vascular accident): Status: Acute Code(s): I63.9 - Cerebral infarction, unspecified (4) Abnormal head CT: Status: Acute Code(s): R93.0 - Abnormal findings on diagnostic imaging of skull and head, not elsewhere classified Plan 03/27: feels latuda 120 has been helpful. however, remains depressed. add wellbutrin XL 150 daily for depression, plan to increase to 300 mg daily in 3 days. may also consider ECT due to lack of improvement despite numerous recent hospitalizations + lethality of suicide attempts + recent self-abnegating behaviors. 03/28: no change in presentation, no requests or complaints. started wellbutrin 150 today. continue current mgmt 03/29/25: Slept well, no issues with appetite. Observed out on the unit, attended groups, engaging. Reports depression and 03/21, denies anxiety. Constricted affect, congruent with mood. Denies safety concerns. Compliant with medications. Denies side effects from Wellbutrin. Continue to encourage groups. 03/30/25: Patient slept for 6 hours, was medication compliant. He attended 2 groups yesterday, however today he is more isolated, in bed a lot more time, declines a couple groups. Reports depressed but no anxiety, flat affect, depressed, but cooperative during one-to-one assessment. He is receptive with the plan of Wellbutrin increased up to 300 mg for depression. Reports passive SI, denies plan or intention. Denies other safety concerns. Encourage patient to go to groups and shower daily. Increase Wellbutrin XL to 300 mg daily for depression. He reported that he has bipolar type II. 03/31: Laying in bed. keeping to self. showered. patient reports feeling depressed ; pt stated, I'm not having a good day. I don't want to do anything . flat affect. denies SI/HI/VH/AH. Per nursing, slept 8 hours. encouraged to attend groups. continue current tx plan. 04/01/25: Patient slept for 8 hours, poor meal intake yesterday but was medication compliant. Denies side effects. When asked about if he has poor appetite as he ate only 50 of breakfast, and 25 for lunch and not eating dinner, he said because I did not do the menu, so I got what I do not like . He shower yesterday, continued to reports depression 03/21. Denied anxiety. He does not feel any difference from Wellbutrin 150 when and when it was increased up to 300 mg. Denies SI/SIB/HI/AVH, isolative self, he plans to attend groups today. This provider spoke with patient in length regarding medication trials. Per his report, has been trying so many antidepressants they just do not work, and continued to be depressed. Some of them are Zoloft, Paxil, Effexor, Celexa, Prozac, Cymbalta, Lexapro. He also having history of taking Zyprexa more than 20 years ago due to hearing voices. Then the voices was calm. He never has a take it again after. History of Abilify but not sure if it is working as he can not recall. Regarding ADLs: He said that he had food at the long term twice a day, but he is not showering for many days despite the fact that staff asked him to do so I just do not care about being clean . Reports very low energy, low motivation, been increased suicidal thoughts and depression. He used to love music and reading but not interested in doing anything like that anymore. Reported that he had gastric sleeve surgery back in August 2023 which he lost 230 lb. He weight 447 lb prior to the surgery. He identified that after the surgery he has been more depressed slowly over months. There was a time that he wanted to starve myself so I can when asked is that you that he has stopped eating at home. He also identified that he feel more depressed after surgery as he is not able to over eating like he did before. Family mental health illnesses: Reports that who both of his parents was depressed. Mom 11 years ago. 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 History of ECTs: Reports he had history of ECTs in 2010 when he was at in [facility].He felt worse after the treatment everything seems like a dream . He clarified that immediately after the treatment he feel that way which could be a side effects of ECT but not permanent. Educate patient on possible side effects ECTs. Patient denies having seizure during ECTs treatment, no seizure history no cardiac conditions/disease history. Reports history of hypertension, but not anymore. He also has been admitted to different hospitals for psychiatric admissions in the past couple of months. Reports staying at [facility] in December for a month. [facility] hospital in the area names [facility]) in October for another month. Per email from his OP team- clinical director at [facility], they also express concerns of patient's conditions. It is noted that their concerns are very consistent with patient' report here on the unit. He also has been admitted to different hospitals for psychiatric admissions in the past couple of months. Reports staying at [facility] in December for a month. [place] in the area names [facility]) in October for another month. Per email from his OP team- clinical director at [facility], they also express concerns of patient's conditions. It is noted that their concerns are very consistent with patient' report here on the unit. Alfredito has been in and out on inpatient level of care since October of this year, I believe every month, for a majority of the time. He was recently discharged from [facility] after a 1 month stay and within two hours of returning home wanted to return to the hospital, saying he was unwell, and within one day was sectioned by [facility], which is how he ended up with you now. He has been coming home and intentionally starving himself, even not eating for up to 1 week. We have known Alfredito for years and since this started in October, we have seen no significant improvement in his mental health or a return to baseline. In fact, we are observing his case as consistent with failure to thrive. We have been asking for him to be inpatient at [facility] or with you at [facility] for some time in order for him to be potentially considered for ECT level of treatment, if deemed appropriate. Multiple medication trials failture to target depressive symptoms. He will be a good candidate to get trial ECT treatment in combination with current medication regimens. Patient also agrees with the plan. We would start the treatment as soon as possible. Will discuss the case with in house psychiatrist-Dr. Ward to prepare for ECT treatment. Hope to start early next week. 04/02: Laying in bed. keeping to self. Patient continues to report feeling depressed; pt stated, I feel about the same. I spoke with the other provider and agreed to do ECT . He reports sleeping well. denies SI/HI/VH/AH. Encouraged to attend groups and shower. Continue current tx plan. 04/03: no changes- just started wellbutrin 04/04: no changes 04/05/25: report anxiety a 2-3 but still 03/21 for depression. No change since started Wellbutrin. He agrees to get Wellbutrin up to 450mg daily for depression. Isolative in room, staring up to the ceiling. Discuss with patient of option to start on Intuniv for severe depression. Patient declines it at this current time but agree to see Welbutrin increased would be helpful. He agrees with ECT. Encourage groups, he says he was at art group out to dinning area but there are too much so he went back to his room. Report not many groups offered over the weekends. 04/06/25: Patient slept for 6 hours, have a sleep study done last night. Reported that he did not sleep well. Appetite is okay. Mood is depressed 03/21, denies anxiety today. Denies suicidal thoughts, but reports he has passive SI yesterday intrusive, just do not Wanna live anymore . Denies hallucinations. Address with patient of why he having bowel movement in the shower. He said it is just one episode. Reports he feel constipated. Agree with Colace. He also inform regarding the ECT which was approved by the insurance. He compliant with medication, however reports he has not feeling any difference in terms of depression at since started on Wellbutrin. Encourage groups attendance. Observe him later on during the day reading at a table in dining area. Colace 100mg BID for constipation. ECT consult placed: Patient may be seen by tomorrow by Dr. Ward. Procedure done preparing for the ECT: Head CT scan negative, EKG normal sinus rhythm, Incomplete right bundle branch block. Borderline ECG_ no change when compare to previous EKG. Unremarkable CBC with diff. 04/07/25: Per hospitalist note: ECT risk stratification Patient without previous problems with anesthesia, has previously undergone ECT RCRI 0 points, no further cardiac workup or treatment indicated at this time EKG showed QT interval WNL, no evidence of ischemic changes Based on stated PMH, HPI, and physical exam, there are no apparent medical contraindications to the planned procedure. Patient is complaining of pelvic discomfort and constipation. We will add therapy with Senokot, MiraLax and obtain urinalysis to assess for urinary tract infection. Continue treatment with atorvastatin and aspirin for history of stroke and hyperlipidemia. 04/07/25: Patient compliant with medication, reports due to the pain abdominal, he could not sleep well last night. Continued to reports depressions 8/10, anxiety 4/10 today related to the pain. Denies suicidal thoughts or voices, isolated. Shower yesterday. Review with patient test need to be done prior to having ECT. Patient met with Dr. Ward and hospitalist for ECT clearance. Due to the pain, constipated, more laxative ordered today. Also UA other by hospitalist to rule out any infection. He is flat, low energy, low motivation, withdrawal, in room mostly, but come out to other rooms to talk to the providers 04/08/25: Patient slept for 8 hours, compliant with medications, denies side effect. Met with him in his room, reported that he slept better last night, having good bowel movement, denies diarrhea is. Informed him regarding the labs work/and UA that was negative to rule out UTI. Denies pain. Explained to patient regarding pre ECT procedures/test to prepare for the day that he going to start. We will start ECT on Saturday. Per Dr. Ward, we will taper down on Latuda, start him on Modafinil low dose to help with severe depression. Continued to reports moderate to severe depression. Denies suicidal thoughts or hallucinations. 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 He denied any significant or excessive drug exposure. I do not find any focal lesion, acute or chronic, suggestive of stroke. There was no contraindication to treatment with ECT. Otherwise treatment of this condition is supportive, symptomatic and conservative Taper down on Latuda from 120 down to 100 mg daily at 17:00 for mood. Start on Modefinil 100ng daily for severe depression, low energy, poor concentration, poor motivation. ECT will be scheduled next week on Saturday. We will received treatment for Saturday/Saturday and Saturday. 04/09/25: Patient denies pain, normal bowel movement, slept well and compliant with medications. Denies side effects. Denies suicidal thoughts or hallucinations but reports mild on anxiety and moderate to severe depression. Patient appeared to be disheveled. Encourage patient to be out of bed in attended to groups included OT groups which observe he is visible in day room after the conversation. The OT will do the [place] for pre ECT next week on Saturday prior the ECT. He started modafinil 50 mg this morning. Indication and side effects explained to patient. Patient is receptive with the plan. Correction: Modefinill 50mg daily. MOCA scheduled next week prior to ECT. 04/10:Laying in bed most of morning. Patient continues to report feeling depressed. He reports looking forward to ECT; pt stated, I think it will be a positive step to get ECT . denies SI/HI/VH/AH. Encouraged to get out of bed. Continue tx plan 04/11: Per nursing, pt did not get out of bed yesterday. Observed laying in bed this morning; encouraged to attend groups and shower. Patient continues to report feeling depressed. denies SI/HI/VH/AH. Encouraged to get out of bed. Continue tx plan. 04/12: continue current tx plan 04/13: stably depressed. PMR. start ECT tomorrow, otherwise continue current mgmt. NPO past MN. 04/14/25: got his first ECT treatment this afternoon. Patient slept for 6 hours, was medication compliant. However, this morning due to the delay of the ECT treatment, he was not happy about the delay into the afternoon. He appeared to be frustrated, irritable, and not cooperative with this provider I do not want to talk to anyone . I am done talking . I do not care when asked his last bowel movement. Per nursing, patient denies suicidal thoughts, other safety concerns. Reports he has no bowel movement x4 days. Medication this morning was held until after the ECT. He also was given citrate magnesium x1. Pending effect. 04/15: made bowel movement. ECT #2 tomorrow. no change in mood or presentation as of today. T/C increasing modafanil to 200 mg sometime next week. 04/16: completed ECT without incident. no FLOWERS today. no change in presentation otherwise. continue current mgmt. ECT #3 saturday. 04/17/2025: No changes. ECT # 3 Saturday04/19/202504/18: no changes 04/19: completed ECT #3 today. no FLOWERS, no change in presentation, no change in mood. continue current mgmt. T/C modafanil increase. 04/20: mood starting to improve. laughed, affect brighter and more flexible. ECT tomorrow, NPO after midnight. continue current mgmt otherwise. 04/21: irritable at afternoon ECT. short today. continue current mgmt. 04/22: not irritable, appears depressed, says mood is unchanged. ECT tomorrow. continue current mgmt. strongly consider increase in modafanil dosing. 04/24/25: Patient slept for 8 hours, no appetite issues. Denies SI/SIB/HI/AVH. Report anxiety a /10 and anxiety an 03/21 which he says he does not feel much different yet from ECT. He denies short term memory. He denies FLOWERS or tireness now but says shortly after ECT he had FLOWERS from yesterday which has been gone. He reports normal BM which laxative was held yesterday. Observed patient spent couple hours in dinning areas, eating out in activity room and spent time watching TV. Nursing also reports patient attended group in the art room as well. He also showered yesterday. He is visible, but quiet keep to self, flat affect, depressed mood. Slightly improvement compare to last visit that this provider saw him about 1-2 weeks ago. Ativan started yesterday which seem to have some effects. Patient educated on: medication risk/benefits and therapeutic strategies Informed Consent: understands Reason for continued inpatient stay Substantial Risk for: med/psych decompensation Time Spent With Patient Time: Total time managing care of this patient today ____ minutes.
--- NOTE | 2025-04-24 09:53 | PC.NURSE ---
Patient requested scheduled Colace and Miralax to be held this morning d/t recent loose stool incidents the day prior
[2025-04-24 19:35] VITALS: BP 122/69; PULSE 81; RESP 15; TEMP 36.5; O2SAT 97
[2025-04-25 08:00] VITALS: BP 121/75; PULSE 66; RESP 16; TEMP 36.7; O2SAT 98
[2025-04-25] MEDS: Aspirin Enteric Coated 81 MG TABLET.DR PO (08:38)
[2025-04-25] MEDS: buPROPion HCl XL 300 MG TAB.ER.24H PO (08:38)
[2025-04-25 19:50] VITALS: BP 94/59; PULSE 74; RESP 14; TEMP 36.5; O2SAT 96
--- NOTE | 2025-04-25 22:50 | HO.PSYCHPN ---
Subjective Subjective Date of Service: 04/25/25 Reason For Visit: SI depression Subjective Notes: Conditional Voluntary Healthcare Proxy: No Guardianship: No Medical Problems Affecting Mental Status: No Interim History: Medical record and nursing notes reviewed; case discussed during rounds with team/nursing staff, and met with patient for supportive therapy/psychoeducation, as well as medication management. Patient slept for 8 hours, compliant with medications, denies side effects. Deny feeling tired on Ativan. Per nursing patient have incident of incontinence of feces yesterday. Therefore Colace and MiraLax and senna has been held. Notes on to hold when has loose stools. Patient denies safety concerns. Reported the same anxiety and depression level. He is more in bed today compared to yesterday but was out for meals. Flat affect, fair eye contact, resting in room. Attended no groups. No changes in terms of mental status. Medication Compliance: Yes Side effects from medications: Yes (loose stool) Attending Groups: No Review of Systems Acute medical concerns: No Medical Review of Systems: unchanged Review of Systems Review of Systems Constipation improving. No SOB/Wheezing. No N/V. No FLOWERS or cough. Yes all other systems are reviewed and are negative Mental Status Exam Mental Status Exam Narrative: Appearance: Casually dressed, unkempt, appear disheveled even with shower. Behavior: Calm and cooperative, PMR Eye contact is appropriate Speech: Normal loudness. slowed, flattened prosody. Thought process logical and goal-directed Thought content: On treatment. Mood: mild anxiety and moderate depresion Affect:flat to constricted, normo-intense SI: Denies HI: Denies VH/AH: Denies Delusions: Denies Insight/judgment: impaired Diagnostics Vital Signs (24Hr): Vital Signs - 24 hr 04/25/25 08:00 04/25/25 19:50 Temperature 98.0 F 97.7 F Pulse Rate 66 74 Respiratory Rate 16 14 Blood Pressure 121/75 94/59 L Pulse Oximetry 98 96 Oxygen Delivery Method Room Air Room Air BMI result Body Mass Index 31.6 Labs 04/23/25 10:35 04/23/25 10:35 Imaging Radiology Impressions: ITS Impressions Head CT 04/06/25 13:54 IMPRESSION: No acute intracranial hemorrhage. Bifrontal bitemporal lobes atrophy. Electronically signed by: Roque Guillen MD 04/06/2025 02:15 PM EDT RP Medications Medications Current Medications Acetaminophen (Acetaminophen 325 Mg Tablet) 650 mg PO Q6H PRN PRN Reason: Headache/Pain, Scale 1-10 Last Admin: 04/14/25 20:25 Dose: 650 mg Al Hydroxide/Mg Hydroxide (Magnesium Hydrox/Alum Hydrox 30 Ml Oral.Susp) 30 ml PO Q6H PRN PRN Reason: Heartburn/Nausea Aspirin (Aspirin Enteric Coated 81 Mg Tablet.) 81 mg PO DAILY [facility] Last Admin: 04/25/25 08:38 Dose: 81 mg Atorvastatin Calcium (Atorvastatin Calcium 20 Mg Tablet) 20 mg PO BEDTIME [facility] Last Admin: 04/25/25 20:09 Dose: 20 mg Bisacodyl (Bisacodyl 5 Mg Tablet.) 10 mg PO DAILY PRN PRN Reason: severe Constipation Last Admin: 04/20/25 08:57 Dose: 10 mg Bupropion HCl (Bupropion Hcl Xl 300 Mg Tab.Er.24h) 300 mg PO DAILY [facility] Last Admin: 04/25/25 08:38 Dose: 300 mg Docusate Sodium (Docusate Sodium 100 Mg Capsule) 100 mg PO BID [facility] Last Admin: 04/25/25 20:10 Dose: Not Given Hydroxyzine HCl (Hydroxyzine Hcl 25 Mg Tablet) 25 mg PO Q6H PRN PRN Reason: mild anxiety Last Admin: 03/26/25 23:24 Dose: 25 mg Lorazepam (Lorazepam 1 Mg Tablet) 1 mg PO TID [facility] Last Admin: 04/25/25 20:06 Dose: Not Given Lurasidone HCl (Lurasidone Hcl 40 Mg Tablet) 40 mg PO DAILY@1700 [facility] Last Admin: 04/25/25 17:14 Dose: 40 mg Magnesium Hydroxide (Milk Of Magnesia 30 Ml Oral.Susp) 30 ml PO DAILY PRN PRN Reason: Constipation Last Admin: 04/17/25 10:24 Dose: 30 ml Modafinil (Modafinil 100 Mg Tablet) 100 mg PO DAILY [facility] Last Admin: 04/25/25 08:38 Dose: 100 mg Naloxone HCl (Naloxone Hcl 0.4 Mg/Ml Vial) 0.04 mg IVPUSH Q5M PRN PRN Reason: Excessive sedation or RR < 8 Nicotine (Nicotine 21 Mg Patch.Td24) 21 mg TRANSDERMA DAILY PRN PRN Reason: nicotine craving Nicotine Polacrilex (Nicotine Polacrilex 2 Mg Gum) 2 mg BUCCAL Q2H PRN PRN Reason: Nicotine Cravings Olanzapine (Olanzapine 5 Mg Tablet) 5 mg PO BID PRN PRN Reason: agitation Polyethylene Glycol (Polyethylene Glycol 3350 17 Gm Powd.Pack) 17 gm PO DAILY [facility] Last Admin: 04/25/25 09:30 Dose: Not Given Senna (Sennosides 8.6 Mg Tablet) 17.2 mg PO BEDTIME [facility] Last Admin: 04/25/25 20:10 Dose: Not Given Trazodone HCl (Trazodone Hcl 50 Mg Tablet) 50 mg PO BEDTIME MRX1 PRN PRN Reason: Insomnia Last Admin: 04/05/25 23:14 Dose: 50 mg Allergies Allergies Allergy/AdvReac Type Severity Reaction Status Date / Time pumpkin Allergy Unknown Unknown Verified 12/24/24 12:26 Assessment & Plan Assessment & Plan (1) Bipolar disorder: Status: Acute Code(s): F31.9 - Bipolar disorder, unspecified (2) JUVENTINO (acute kidney injury): Status: Acute Code(s): N17.9 - Acute kidney failure, unspecified (3) CVA (cerebral vascular accident): Status: Acute Code(s): I63.9 - Cerebral infarction, unspecified (4) Abnormal head CT: Status: Acute Code(s): R93.0 - Abnormal findings on diagnostic imaging of skull and head, not elsewhere classified Plan 03/27: feels latuda 120 has been helpful. however, remains depressed. add wellbutrin XL 150 daily for depression, plan to increase to 300 mg daily in 3 days. may also consider ECT due to lack of improvement despite numerous recent hospitalizations + lethality of suicide attempts + recent self-abnegating behaviors. 03/28: no change in presentation, no requests or complaints. started wellbutrin 150 today. continue current mgmt 03/29/25: Slept well, no issues with appetite. Observed out on the unit, attended groups, engaging. Reports depression and 03/21, denies anxiety. Constricted affect, congruent with mood. Denies safety concerns. Compliant with medications. Denies side effects from Wellbutrin. Continue to encourage groups. 03/30/25: Patient slept for 6 hours, was medication compliant. He attended 2 groups yesterday, however today he is more isolated, in bed a lot more time, declines a couple groups. Reports depressed but no anxiety, flat affect, depressed, but cooperative during one-to-one assessment. He is receptive with the plan of Wellbutrin increased up to 300 mg for depression. Reports passive SI, denies plan or intention. Denies other safety concerns. Encourage patient to go to groups and shower daily. Increase Wellbutrin XL to 300 mg daily for depression. He reported that he has bipolar type II. 03/31: Laying in bed. keeping to self. showered. patient reports feeling depressed ; pt stated, I'm not having a good day. I don't want to do anything . flat affect. denies SI/HI/VH/AH. Per nursing, slept 8 hours. encouraged to attend groups. continue current tx plan. 04/01/25: Patient slept for 8 hours, poor meal intake yesterday but was medication compliant. Denies side effects. When asked about if he has poor appetite as he ate only 50 of breakfast, and 25 for lunch and not eating dinner, he said because I did not do the menu, so I got what I do not like . He shower yesterday, continued to reports depression 03/21. Denied anxiety. He does not feel any difference from Wellbutrin 150 when and when it was increased up to 300 mg. Denies SI/SIB/HI/AVH, isolative self, he plans to attend groups today. This provider spoke with patient in length regarding medication trials. Per his report, has been trying so many antidepressants they just do not work, and continued to be depressed. Some of them are Zoloft, Paxil, Effexor, Celexa, Prozac, Cymbalta, Lexapro. He also having history of taking Zyprexa more than 20 years ago due to hearing voices. Then the voices was calm. He never has a take it again after. History of Abilify but not sure if it is working as he can not recall. Regarding ADLs: He said that he had food at the custodial twice a day, but he is not showering for many days despite the fact that staff asked him to do so I just do not care about being clean . Reports very low energy, low motivation, been increased suicidal thoughts and depression. He used to love music and reading but not interested in doing anything like that anymore. Reported that he had gastric sleeve surgery back in August 2023 which he lost 230 lb. He weight 447 lb prior to the surgery. He identified that after the surgery he has been more depressed slowly over months. There was a time that he wanted to starve myself so I can when asked is that you that he has stopped eating at home. He also identified that he feel more depressed after surgery as he is not able to over eating like he did before. Family mental health illnesses: Reports that who both of his parents was depressed. Mom 11 years ago. 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 History of ECTs: Reports he had history of ECTs in 2010 when he was at in [facility].He felt worse after the treatment everything seems like a dream . He clarified that immediately after the treatment he feel that way which could be a side effects of ECT but not permanent. Educate patient on possible side effects ECTs. Patient denies having seizure during ECTs treatment, no seizure history no cardiac conditions/disease history. Reports history of hypertension, but not anymore. He also has been admitted to different hospitals for psychiatric admissions in the past couple of months. Reports staying at [facility] in December for a month. [facility] in the area names [facility]) in October for another month. Per email from his OP team- clinical director at [facility], they also express concerns of patient's conditions. It is noted that their concerns are very consistent with patient' report here on the unit. He also has been admitted to different hospitals for psychiatric admissions in the past couple of months. Reports staying at [facility] in December for a month. [facility] in the area names [facility]) in October for another month. Per email from his OP team- clinical director at [facility], they also express concerns of patient's conditions. It is noted that their concerns are very consistent with patient' report here on the unit. Alfredito has been in and out on inpatient level of care since October of this year, I believe every month, for a majority of the time. He was recently discharged from [facility] after a 1 month stay and within two hours of returning home wanted to return to the hospital, saying he was unwell, and within one day was sectioned by [facility], which is how he ended up with you now. He has been coming home and intentionally starving himself, even not eating for up to 1 week. We have known Alfredito for years and since this started in October, we have seen no significant improvement in his mental health or a return to baseline. In fact, we are observing his case as consistent with failure to thrive. We have been asking for him to be inpatient at [facility] or with you at [facility] for some time in order for him to be potentially considered for ECT level of treatment, if deemed appropriate. Multiple medication trials failture to target depressive symptoms. He will be a good candidate to get trial ECT treatment in combination with current medication regimens. Patient also agrees with the plan. We would start the treatment as soon as possible. Will discuss the case with in house psychiatrist-Dr. Ward to prepare for ECT treatment. Hope to start early next week. 04/02: Laying in bed. keeping to self. Patient continues to report feeling depressed; pt stated, I feel about the same. I spoke with the other provider and agreed to do ECT . He reports sleeping well. denies SI/HI/VH/AH. Encouraged to attend groups and shower. Continue current tx plan. 04/03: no changes- just started wellbutrin 04/04: no changes 04/05/25: report anxiety a 2-3/10 but still 8/10 for depression. No change since started Wellbutrin. He agrees to get Wellbutrin up to 450mg daily for depression. Isolative in room, staring up to the ceiling. Discuss with patient of option to start on Intuniv for severe depression. Patient declines it at this current time but agree to see Welbutrin increased would be helpful. He agrees with ECT. Encourage groups, he says he was at art group out to dinning area but there are too much so he went back to his room. Report not many groups offered over the weekends. 04/06/25: Patient slept for 6 hours, have a sleep study done last night. Reported that he did not sleep well. Appetite is okay. Mood is depressed 03/21, denies anxiety today. Denies suicidal thoughts, but reports he has passive SI yesterday intrusive, just do not Wanna live anymore . Denies hallucinations. Address with patient of why he having bowel movement in the shower. He said it is just one episode. Reports he feel constipated. Agree with Colace. He also inform regarding the ECT which was approved by the insurance. He compliant with medication, however reports he has not feeling any difference in terms of depression at since started on Wellbutrin. Encourage groups attendance. Observe him later on during the day reading at a table in dining area. Colace 100mg BID for constipation. ECT consult placed: Patient may be seen by tomorrow by Dr. Ward. Procedure done preparing for the ECT: Head CT scan negative, EKG normal sinus rhythm, Incomplete right bundle branch block. Borderline ECG_ no change when compare to previous EKG. Unremarkable CBC with diff. 04/07/25: Per hospitalist note: ECT risk stratification Patient without previous problems with anesthesia, has previously undergone ECT RCRI 0 points, no further cardiac workup or treatment indicated at this time EKG showed QT interval WNL, no evidence of ischemic changes Based on stated PMH, HPI, and physical exam, there are no apparent medical contraindications to the planned procedure. Patient is complaining of pelvic discomfort and constipation. We will add therapy with Senokot, MiraLax and obtain urinalysis to assess for urinary tract infection. Continue treatment with atorvastatin and aspirin for history of stroke and hyperlipidemia. 04/07/25: Patient compliant with medication, reports due to the pain abdominal, he could not sleep well last night. Continued to reports depressions 8/10, anxiety 4/10 today related to the pain. Denies suicidal thoughts or voices, isolated. Shower yesterday. Review with patient test need to be done prior to having ECT. Patient met with Dr. Ward and hospitalist for ECT clearance. Due to the pain, constipated, more laxative ordered today. Also UA other by hospitalist to rule out any infection. He is flat, low energy, low motivation, withdrawal, in room mostly, but come out to other rooms to talk to the providers 04/08/25: Patient slept for 8 hours, compliant with medications, denies side effect. Met with him in his room, reported that he slept better last night, having good bowel movement, denies diarrhea is. Informed him regarding the labs work/and UA that was negative to rule out UTI. Denies pain. Explained to patient regarding pre ECT procedures/test to prepare for the day that he going to start. We will start ECT on Saturday. Per Dr. Ward, we will taper down on Latuda, start him on Modafinil low dose to help with severe depression. Continued to reports moderate to severe depression. Denies suicidal thoughts or hallucinations. 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 He denied any significant or excessive drug exposure. I do not find any focal lesion, acute or chronic, suggestive of stroke. There was no contraindication to treatment with ECT. Otherwise treatment of this condition is supportive, symptomatic and conservative Taper down on Latuda from 120 down to 100 mg daily at 17:00 for mood. Start on Modefinil 100ng daily for severe depression, low energy, poor concentration, poor motivation. ECT will be scheduled next week on Saturday. We will received treatment for Saturday/Saturday and Saturday. 04/09/25: Patient denies pain, normal bowel movement, slept well and compliant with medications. Denies side effects. Denies suicidal thoughts or hallucinations but reports mild on anxiety and moderate to severe depression. Patient appeared to be disheveled. Encourage patient to be out of bed in attended to groups included OT groups which observe he is visible in day room after the conversation. The OT will do the [place] for pre ECT next week on Saturday prior the ECT. He started modafinil 50 mg this morning. Indication and side effects explained to patient. Patient is receptive with the plan. Correction: Modefinill 50mg daily. MOCA scheduled next week prior to ECT. 04/10:Laying in bed most of morning. Patient continues to report feeling depressed. He reports looking forward to ECT; pt stated, I think it will be a positive step to get ECT . denies SI/HI/VH/AH. Encouraged to get out of bed. Continue tx plan 04/11: Per nursing, pt did not get out of bed yesterday. Observed laying in bed this morning; encouraged to attend groups and shower. Patient continues to report feeling depressed. denies SI/HI/VH/AH. Encouraged to get out of bed. Continue tx plan. 04/12: continue current tx plan 04/13: stably depressed. PMR. start ECT tomorrow, otherwise continue current mgmt. NPO past MN. 04/14/25: got his first ECT treatment this afternoon. Patient slept for 6 hours, was medication compliant. However, this morning due to the delay of the ECT treatment, he was not happy about the delay into the afternoon. He appeared to be frustrated, irritable, and not cooperative with this provider I do not want to talk to anyone . I am done talking . I do not care when asked his last bowel movement. Per nursing, patient denies suicidal thoughts, other safety concerns. Reports he has no bowel movement x4 days. Medication this morning was held until after the ECT. He also was given citrate magnesium x1. Pending effect. 04/15: made bowel movement. ECT #2 tomorrow. no change in mood or presentation as of today. T/C increasing modafanil to 200 mg sometime next week. 04/16: completed ECT without incident. no FLOWERS today. no change in presentation otherwise. continue current mgmt. ECT #3 saturday. 04/17/2025: No changes. ECT # 3 Saturday04/19/202504/18: no changes 04/19: completed ECT #3 today. no FLOWERS, no change in presentation, no change in mood. continue current mgmt. T/C modafanil increase. 04/20: mood starting to improve. laughed, affect brighter and more flexible. ECT tomorrow, NPO after midnight. continue current mgmt otherwise. 04/21: irritable at afternoon ECT. short today. continue current mgmt. 04/22: not irritable, appears depressed, says mood is unchanged. ECT tomorrow. continue current mgmt. strongly consider increase in modafanil dosing. 04/23/2025: Patient seen ECT completed bilaterally. Patient with markedly poor ADLs almost catatonic like allowing himself to be covered in feces not showering or caring for himself. Change ECT to 0.25 would follow-up on response to bilateral treatment if to withdrawn would may be secondary to bilateral and might consider return to right unilateral. Wellbutrin lowered to 300 mg modafinil was started at 100 mg can consider increase to 150 mg targeting apathy lethargy. Patient started on lorazepam 1 mg p.o. t.i.d. had test doses and seemed significantly improved with more fluid speech and increase range of affect hold lorazepam night prior to ECT 04/24/25: Patient slept for 8 hours, no appetite issues. Denies SI/SIB/HI/AVH. Report anxiety a 2/10 and anxiety an 8/10 which he says he does not feel much different yet from ECT. He denies short term memory. He denies FLOWERS or tireness now but says shortly after ECT he had FLOWERS from yesterday which has been gone. He reports normal BM which laxative was held yesterday. Observed patient spent couple hours in dinning areas, eating out in activity room and spent time watching TV. Nursing also reports patient attended group in the art room as well. He also showered yesterday. He is visible, but quiet keep to self, flat affect, depressed mood. Slightly improvement compare to last visit that this provider saw him about 1-2 weeks ago. Ativan started yesterday which seem to have some effects. 04/25/25: Patient slept for 8 hours, compliant with medications, denies side effects. Deny feeling tired on Ativan. Per nursing patient have incident of incontinence of feces yesterday. Therefore Colace and MiraLax and senna has been held. Notes on to hold when has loose stools. Patient denies safety concerns. Reported the same anxiety and depression level. He is more in bed today compared to yesterday but was out for meals. Flat affect, fair eye contact, resting in room. Attended no groups. No changes in terms of mental status. May have ECT on Saturday morning. Patient educated on: medication risk/benefits and therapeutic strategies Informed Consent: understands and further education needed Reason for continued inpatient stay Substantial Risk for: med/psych decompensation Time Spent With Patient Time: Total time managing care of this patient today ____ minutes.
[2025-04-26] VITALS (9 sets, daily range): BP systolic 101–187; BP diastolic 61–97; PULSE 72–109; RESP 14–21; TEMP 36.1–36.9; O2SAT 96–100
--- NOTE | 2025-04-26 06:43 | P.CONAN_ITS ---
[facility] Active Problems Active Problems: All Active Problems (Updated 04/08/25 @ 17:29 by Drew Ward MD) CVA (cerebral vascular accident) (Acute) Abnormal head CT (Acute) JUVENTINO (acute kidney injury) (Acute) Depression (Acute) Bipolar disorder (Acute) H/O gastric sleeve (Acute) Past Medical History Medical History Obesity LUIS (obstructive sleep apnea) HLD (hyperlipidemia) HTN (hypertension) CVA (cerebral vascular accident) Functional capacity: independent ambulation Family History Family history of problems with anesthesia: No Surgical History History of Problems with Anesthesia: No Social History Social History Household Members: Other Household Members Other:: transitional housing Housing: Other Do you presently have visiting nurse or other home services: No Patient Tobacco Use Status: Never used Tobacco Second Hand Smoke Exposure: Yes Currently Displaying Signs/Symptoms of Drug Intoxication Withdrawal: No Have you been hit, kicked, punched, or otherwise hurt by someone within the past year? If so, by whom?: No Do you feel safe in your current relationship?: No Current Relationship Is there a partner from a previous relationship who is making you feel unsafe now?: No Are you made to feel afraid or neglected: No Advance Directives: No Advance Directives Information Provided: No Do you have thoughts of harming others: None Do you have a plan to hurt others: No Plan Recently lost weight without trying: No Eating poorly because of decreased appetite: No Nutrition Risks: No Nutritional Risk Poor oral hygiene: Yes (very dry scalp) service: No Sexual orientation: Straight/Heterosexual Meds Allergies Allergy/AdvReac Type Severity Reaction Status Date / Time pumpkin Allergy Unknown Unknown Verified 12/24/24 12:26 Active Medications: Current Medications Acetaminophen (Acetaminophen 325 Mg Tablet) 650 mg PO Q6H PRN PRN Reason: Headache/Pain, Scale 1-10 Last Admin: 04/14/25 20:25 Dose: 650 mg Al Hydroxide/Mg Hydroxide (Magnesium Hydrox/Alum Hydrox 30 Ml Oral.Susp) 30 ml PO Q6H PRN PRN Reason: Heartburn/Nausea Aspirin (Aspirin Enteric Coated 81 Mg Tablet.Dr) 81 mg PO DAILY JENNIFER Last Admin: 04/25/25 08:38 Dose: 81 mg Atorvastatin Calcium (Atorvastatin Calcium 20 Mg Tablet) 20 mg PO BEDTIME [facility] Last Admin: 04/25/25 20:09 Dose: 20 mg Bisacodyl (Bisacodyl 5 Mg Tablet.Dr) 10 mg PO DAILY PRN PRN Reason: severe Constipation Last Admin: 04/20/25 08:57 Dose: 10 mg Bupropion HCl (Bupropion Hcl Xl 300 Mg Tab.Er.24h) 300 mg PO DAILY [facility] Last Admin: 04/25/25 08:38 Dose: 300 mg Docusate Sodium (Docusate Sodium 100 Mg Capsule) 100 mg PO BID [facility] Last Admin: 04/25/25 20:10 Dose: Not Given Hydroxyzine HCl (Hydroxyzine Hcl 25 Mg Tablet) 25 mg PO Q6H PRN PRN Reason: mild anxiety Last Admin: 03/26/25 23:24 Dose: 25 mg Lorazepam (Lorazepam 1 Mg Tablet) 1 mg PO TID [facility] Last Admin: 04/25/25 20:06 Dose: Not Given Lurasidone HCl (Lurasidone Hcl 40 Mg Tablet) 40 mg PO DAILY@1700 [facility] Last Admin: 04/25/25 17:14 Dose: 40 mg Magnesium Hydroxide (Milk Of Magnesia 30 Ml Oral.Susp) 30 ml PO DAILY PRN PRN Reason: Constipation Last Admin: 04/17/25 10:24 Dose: 30 ml Modafinil (Modafinil 100 Mg Tablet) 100 mg PO DAILY [facility] Last Admin: 04/25/25 08:38 Dose: 100 mg Naloxone HCl (Naloxone Hcl 0.4 Mg/Ml Vial) 0.04 mg IVPUSH Q5M PRN PRN Reason: Excessive sedation or RR < 8 Nicotine (Nicotine 21 Mg Patch.Td24) 21 mg TRANSDERMA DAILY PRN PRN Reason: nicotine craving Nicotine Polacrilex (Nicotine Polacrilex 2 Mg Gum) 2 mg BUCCAL Q2H PRN PRN Reason: Nicotine Cravings Olanzapine (Olanzapine 5 Mg Tablet) 5 mg PO BID PRN PRN Reason: agitation Polyethylene Glycol (Polyethylene Glycol 3350 17 Gm Powd.Pack) 17 gm PO DAILY [facility] Last Admin: 04/25/25 09:30 Dose: Not Given Senna (Sennosides 8.6 Mg Tablet) 17.2 mg PO BEDTIME [facility] Last Admin: 04/25/25 20:10 Dose: Not Given Trazodone HCl (Trazodone Hcl 50 Mg Tablet) 50 mg PO BEDTIME MRX1 PRN PRN Reason: Insomnia Last Admin: 04/05/25 23:14 Dose: 50 mg Exam Height,Weight and Vital Signs: Height 5 ft 9 in Weight 214 lb Last Vital Signs Temp 97 F 04/26/25 06:22 Pulse 72 04/26/25 06:22 Resp 19 04/26/25 06:22 BP 133/81 04/26/25 06:22 Pulse Ox 97 04/26/25 06:22 O2 Del Method Room Air 04/26/25 06:22 O2 Flow Rate 6 04/14/25 13:46 Pertinent Lab Results Pertinent Lab Results: Laboratory Tests 03/26/25 03/26/25 03/27/25 14:42 15:45 08:31 WBC 9.9 RBC 4.34 L Hgb 12.8 L Hct 38.3 L MCV 88.2 MCH 29.5 MCHC 33.4 RDW 14.6 Plt Count 191 MPV 10.6 Immature Gran % (Auto) 0.2 Neut % (Auto) 61.2 Lymph % (Auto) 28.9 [place] % (Auto) 8.8 Eos % (Auto) 0.7 Baso % (Auto) 0.2 Lymph # (Auto) 2.9 [place] # (Auto) 0.9 Eos # (Auto) 0.1 Baso # (Auto) 0.0 Abs Immat Gran (auto) 0.02 Absolute Neuts (auto) 6.1 Absolute Nucleated RBC 0.000 Nucleated RBC % (auto) 0.0 Sodium 138 143 Potassium 4.4 4.2 Chloride 103 106 Carbon Dioxide 26 23 Anion Gap 13 18 BUN 18 H 16 Creatinine 1.55 H 1.19 Estim Creat Clear Calc 65.6 86.0 Estimated GFR 48 > 60 POC Glucose Random Glucose 93 78 Estimat Average Glucose 91 Hemoglobin A1c % 4.8 Calcium 9.0 9.0 Total Bilirubin 1.1 H AST 28 ALT 11 Alkaline Phosphatase 62 B-Natriuretic Peptide Total Protein 6.0 L Albumin 3.7 Triglycerides 66 Cholesterol 153 LDL Cholesterol, Calc 92 HDL Cholesterol 48 TSH 3.31 Free T4 1.09 Urine Color Yellow Urine Appearance Cloudy Urine pH 5.5 Ur Specific [place] 1.015 Urine Protein 30 (1+) H Urine Glucose (UA) Negative Urine Ketones Negative Urine Blood Negative Urine Nitrite Negative Ur Leukocyte Esterase Trace H Urine RBC 0-2 Urine WBC 0-5 Ur Squamous Epith Cells 6-10 Urine Bacteria None Seen Hyaline Casts >20 Salicylates < 5.0 L Urine Opiates Screen Not Detected Ur Buprenorphine Scrn Not Detected Ur Oxycodone Screen Not Detected Urine Methadone Screen Not Detected Urine Fentanyl Screen Not Detected Acetaminophen < 3 Ur Barbiturates Screen Not Detected Ur Phencyclidine Scrn Not Detected Ur Amphetamines Screen Not Detected U Benzodiazepines Scrn Not Detected Urine Cocaine Screen Not Detected U Marijuana (THC) Screen Not Detected Ethyl Alcohol < 10 T.pallidum Ab (EIA) Influenza Type A (PCR) NEGATIVE Influenza Type B (PCR) NEGATIVE RSV RNA Qual (PCR) NEGATIVE SARS-CoV-2 RNA (RT-PCR) NEGATIVE 04/06/25 04/07/25 04/07/25 14:28 08:07 21:30 WBC 9.1 RBC 4.59 L Hgb 13.4 L Hct 40.9 L MCV 89.1 MCH 29.2 MCHC 32.8 RDW 14.0 Plt Count 303 D MPV 10.6 Immature Gran % (Auto) 0.4 Neut % (Auto) 58.1 Lymph % (Auto) 32.8 [place] % (Auto) 6.4 Eos % (Auto) 2.1 Baso % (Auto) 0.2 Lymph # (Auto) 3.0 [place] # (Auto) 0.6 Eos # (Auto) 0.2 Baso # (Auto) 0.0 Abs Immat Gran (auto) 0.04 H Absolute Neuts (auto) 5.3 Absolute Nucleated RBC 0.000 Nucleated RBC % (auto) 0.0 Sodium 143 Potassium 4.6 Chloride 105 Carbon Dioxide 28 Anion Gap 15 BUN 17 H Creatinine 1.35 Estim Creat Clear Calc 75.5 Estimated GFR 56 POC Glucose Random Glucose 96 Estimat Average Glucose Hemoglobin A1c % Calcium 9.4 Total Bilirubin 0.6 AST 26 ALT 23 Alkaline Phosphatase 66 B-Natriuretic Peptide Total Protein 6.4 L Albumin 3.9 Triglycerides Cholesterol LDL Cholesterol, Calc HDL Cholesterol TSH 2.42 Free T4 Urine Color Yellow Urine Appearance Clear Urine pH 6.0 Ur Specific [place] 1.010 Urine Protein Negative Urine Glucose (UA) Negative Urine Ketones Negative Urine Blood Negative Urine Nitrite Negative Ur Leukocyte Esterase Negative Urine RBC Urine WBC Ur Squamous Epith Cells Urine Bacteria Hyaline Casts Salicylates Urine Opiates Screen Ur Buprenorphine Scrn Ur Oxycodone Screen Urine Methadone Screen Urine Fentanyl Screen Acetaminophen Ur Barbiturates Screen Ur Phencyclidine Scrn Ur Amphetamines Screen U Benzodiazepines Scrn Urine Cocaine Screen U Marijuana (THC) Screen Ethyl Alcohol T.pallidum Ab (EIA) Influenza Type A (PCR) Influenza Type B (PCR) RSV RNA Qual (PCR) SARS-CoV-2 RNA (RT-PCR) 04/10/25 04/20/25 04/23/25 09:18 20:47 10:35 WBC 8.6 RBC 4.73 Hgb 14.0 Hct 41.5 L MCV 87.7 MCH 29.6 MCHC 33.7 RDW 13.2 Plt Count 233 MPV 10.3 Immature Gran % (Auto) 0.5 H Neut % (Auto) 58.3 Lymph % (Auto) 33.4 [place] % (Auto) 5.9 Eos % (Auto) 1.6 Baso % (Auto) 0.3 Lymph # (Auto) 2.9 [place] # (Auto) 0.5 Eos # (Auto) 0.1 Baso # (Auto) 0.0 Abs Immat Gran (auto) 0.04 H Absolute Neuts (auto) 5.0 Absolute Nucleated RBC 0.000 Nucleated RBC % (auto) 0.0 Sodium 139 Potassium 4.6 Chloride 105 Carbon Dioxide 27 Anion Gap 12 BUN 21 H Creatinine 1.40 Estim Creat Clear Calc 73.3 Estimated GFR 54 POC Glucose 102 Random Glucose 87 Estimat Average Glucose Hemoglobin A1c % Calcium 8.8 D Total Bilirubin 0.8 AST 20 ALT 17 Alkaline Phosphatase 65 B-Natriuretic Peptide < 10 Total Protein 6.0 L Albumin 3.6 Triglycerides Cholesterol LDL Cholesterol, Calc HDL Cholesterol TSH Free T4 Urine Color Urine Appearance Urine pH Ur Specific [place] Urine Protein Urine Glucose (UA) Urine Ketones Urine Blood Urine Nitrite Ur Leukocyte Esterase Urine RBC Urine WBC Ur Squamous Epith Cells Urine Bacteria Hyaline Casts Salicylates Urine Opiates Screen Ur Buprenorphine Scrn Ur Oxycodone Screen Urine Methadone Screen Urine Fentanyl Screen Acetaminophen Ur Barbiturates Screen Ur Phencyclidine Scrn Ur Amphetamines Screen U Benzodiazepines Scrn Urine Cocaine Screen U Marijuana (THC) Screen Ethyl Alcohol T.pallidum Ab (EIA) Nonreactive Influenza Type A (PCR) Influenza Type B (PCR) RSV RNA Qual (PCR) SARS-CoV-2 RNA (RT-PCR) Airway Mallampati Class: III TM Dist: >3cm Neck ROM: Full Partial: Upper Heart: rrr Lungs: cta Assessment and Plan Assessment Anesthesia Assessment: Anesthesia Plan Discussed and Chart Reviewed Final Anesthetic Review Family History of Problems with Anesthesia: No History of Problems with Anesthesia: No NPO: Yes ASA Class: III Final Preanesthetic Review: No Changes in Pt Med Stat, Meds/Allgs Chart Reviewed and Consent Obtained/Reviewed Patient Risk: Intermediate Procedure Risk: Intermediate Anesthetic Plan Anesthetic Plan: GA Disposition: Standard PACU
--- NOTE | 2025-04-26 07:14 | MHC.SHP ---
Pre-Procedural Eval Section A - 24 Hr Update-Section A only Date of Service: 04/26/25 The patient is an INPATIENT: Yes Changes since office visit: Yes Patient answered all questions; No Cold of Flu in the past 2 weeks, No New Medical Problems and No Changes in Medication The patient has been examined within 24 hours of the surgical procedure. The History & Physical has been completed within 30 days and I have reviewed it.: Yes Section B - Complete if H&P > 30 days Chief Complaint: SI depression Allergies: Allergies Allergy/AdvReac Type Severity Reaction Status Date / Time pumpkin Allergy Unknown Unknown Verified 12/24/24 12:26 Plan Diagnosis/Plan: Unchanged I have reviewed the history and physical and performed a pertinent physical examination on my patient. No changes have occurred unless specified. Time Spent With Patient Time: Total time managing care of this patient today __30__ minutes.
--- NOTE | 2025-04-26 08:16 | HO.ECTPROC ---
ECT Procedure Note Diagnosis/Treatment Date of Service: 04/26/25 Diagnosis: Bipolar disorder Previous ECT Date: 04/23/25 Current Treatment Number: 6 Treatment: Series Interval Clinical Notes: slowed but able to interact. denies any changes over the weekend. Time: Total time managing care of this patient today _30___ minutes. ECT Settings Device: THYMATRON DGx Electrode Placement: Bifrontal Program/Pulse Width: 0.25 Energy Percent: 65 Seizure Duration By EEG (in seconds): 36 Medications Administration General Anesthetic: Etomidate (18) Muscle Relaxant: Succinylcholine (100) Ancillary Medications Analgesics: Torodol - Pre ECT Miscillaneous Medications: Propofol (30) Airway Management Airway Management: Bag Mask Ventilation Treatment Recommendations No Changes Recommended: No change Pt Tolerated Procedure w/o Issue: Yes
[2025-04-26] MEDS: Aspirin Enteric Coated 81 MG TABLET.DR PO (09:53)
[2025-04-26] MEDS: buPROPion HCl XL 300 MG TAB.ER.24H PO (09:53)
--- NOTE | 2025-04-26 14:21 | P.PNPSI_ITS ---
Subjective Subjective Date of Service: 04/26/25 Reason For Visit: SI depression Interim History: in bed after ECT, responsive but terse. states he continues to feel depressed. agreeable to increase modafanil to 150 as of tomorrow morning. per staff, blunted. taking meds. holding colace and miralax due to serial episodes of fecal incontinence. slept 8 hours. no disorientation or memory problems. Mental Status Exam Mental Status Exam Narrative: Appearance: Casually dressed, unkempt, disheveled Behavior: Calm and cooperative, PMR Eye contact is poor Speech: soft, slowed, flattened prosody. Thought process logical and goal-directed Thought content: On treatment. Mood: the same Affect: constricted, normo-intense SI: none expressed HI: none expressed VH/AH: none expressed Delusions: None expressed Insight/judgment: impaired Diagnostics Vital Signs (24Hr): Vital Signs - 24 hr 04/25/25 19:50 04/26/25 06:10 04/26/25 06:22 Temperature 97.7 F 97.6 F 97 F Pulse Rate 74 88 72 Respiratory Rate 14 14 19 Blood Pressure 94/59 L 101/68 133/81 Pulse Oximetry 96 99 97 Oxygen Delivery Method Room Air Room Air 04/26/25 07:48 04/26/25 07:53 04/26/25 07:58 Temperature 97.5 F Pulse Rate 109 H 98 91 Respiratory Rate 21 H 21 H 20 Blood Pressure 187/97 H 172/85 H 173/96 H Pulse Oximetry 100 100 100 Oxygen Delivery Method Room Air Room Air Room Air 04/26/25 08:03 04/26/25 08:18 04/26/25 09:00 Temperature 97.5 F 97.5 F Pulse Rate 91 79 75 Respiratory Rate 20 20 18 Blood Pressure 162/74 H 155/84 H 117/82 Pulse Oximetry 100 100 Oxygen Delivery Method Room Air Room Air BMI result Body Mass Index 31.6 Labs 04/23/25 10:35 04/23/25 10:35 Imaging Radiology Impressions: ITS Impressions Head CT 04/06/25 13:54 IMPRESSION: No acute intracranial hemorrhage. Bifrontal bitemporal lobes atrophy. Electronically signed by: Roque Guillen MD 04/06/2025 02:15 PM EDT Medications Medications Current Medications Acetaminophen (Acetaminophen 325 Mg Tablet) 650 mg PO Q6H PRN PRN Reason: Headache/Pain, Scale 1-10 Last Admin: 04/14/25 20:25 Dose: 650 mg Al Hydroxide/Mg Hydroxide (Magnesium Hydrox/Alum Hydrox 30 Ml Oral.Susp) 30 ml PO Q6H PRN PRN Reason: Heartburn/Nausea Aspirin (Aspirin Enteric Coated 81 Mg Tablet.) 81 mg PO DAILY [facility] Last Admin: 04/26/25 09:53 Dose: 81 mg Atorvastatin Calcium (Atorvastatin Calcium 20 Mg Tablet) 20 mg PO BEDTIME [facility] Last Admin: 04/25/25 20:09 Dose: 20 mg Bisacodyl (Bisacodyl 5 Mg Tablet.) 10 mg PO DAILY PRN PRN Reason: severe Constipation Last Admin: 04/20/25 08:57 Dose: 10 mg Bupropion HCl (Bupropion Hcl Xl 300 Mg Tab.Er.24h) 300 mg PO DAILY [facility] Last Admin: 04/26/25 09:53 Dose: 300 mg Docusate Sodium (Docusate Sodium 100 Mg Capsule) 100 mg PO BID [facility] Last Admin: 04/26/25 09:59 Dose: Not Given Hydroxyzine HCl (Hydroxyzine Hcl 25 Mg Tablet) 25 mg PO Q6H PRN PRN Reason: mild anxiety Last Admin: 03/26/25 23:24 Dose: 25 mg Lorazepam (Lorazepam 1 Mg Tablet) 1 mg PO TID [facility] Last Admin: 04/25/25 20:06 Dose: Not Given Lurasidone HCl (Lurasidone Hcl 40 Mg Tablet) 40 mg PO DAILY@1700 [facility] Last Admin: 04/25/25 17:14 Dose: 40 mg Magnesium Hydroxide (Milk Of Magnesia 30 Ml Oral.Susp) 30 ml PO DAILY PRN PRN Reason: Constipation Last Admin: 04/17/25 10:24 Dose: 30 ml Modafinil (Modafinil 100 Mg Tablet) 150 mg PO DAILY [facility] Nicotine (Nicotine 21 Mg Patch.Td24) 21 mg TRANSDERMA DAILY PRN PRN Reason: nicotine craving Nicotine Polacrilex (Nicotine Polacrilex 2 Mg Gum) 2 mg BUCCAL Q2H PRN PRN Reason: Nicotine Cravings Olanzapine (Olanzapine 5 Mg Tablet) 5 mg PO BID PRN PRN Reason: agitation Polyethylene Glycol (Polyethylene Glycol 3350 17 Gm Powd.Pack) 17 gm PO DAILY [facility] Last Admin: 04/26/25 10:00 Dose: Not Given Senna (Sennosides 8.6 Mg Tablet) 17.2 mg PO BEDTIME [facility] Last Admin: 04/25/25 20:10 Dose: Not Given Trazodone HCl (Trazodone Hcl 50 Mg Tablet) 50 mg PO BEDTIME MRX1 PRN PRN Reason: Insomnia Last Admin: 04/05/25 23:14 Dose: 50 mg Allergies Allergies Allergy/AdvReac Type Severity Reaction Status Date / Time pumpkin Allergy Unknown Unknown Verified 12/24/24 12:26 Assessment & Plan Assessment & Plan (1) Bipolar disorder: Status: Acute Code(s): F31.9 - Bipolar disorder, unspecified (2) JUVENTINO (acute kidney injury): Status: Acute Code(s): N17.9 - Acute kidney failure, unspecified (3) CVA (cerebral vascular accident): Status: Acute Code(s): I63.9 - Cerebral infarction, unspecified (4) Abnormal head CT: Status: Acute Code(s): R93.0 - Abnormal findings on diagnostic imaging of skull and head, not elsewhere classified Plan 03/27: feels latuda 120 has been helpful. however, remains depressed. add wellbutrin XL 150 daily for depression, plan to increase to 300 mg daily in 3 days. may also consider ECT due to lack of improvement despite numerous recent hospitalizations + lethality of suicide attempts + recent self-abnegating behaviors. 03/28: no change in presentation, no requests or complaints. started wellbutrin 150 today. continue current mgmt 03/29/25: Slept well, no issues with appetite. Observed out on the unit, attended groups, engaging. Reports depression and 8/, denies anxiety. Constricted affect, congruent with mood. Denies safety concerns. Compliant with medications. Denies side effects from Wellbutrin. Continue to encourage groups. 03/30/25: Patient slept for 6 hours, was medication compliant. He attended 2 groups yesterday, however today he is more isolated, in bed a lot more time, declines a couple groups. Reports depressed but no anxiety, flat affect, depressed, but cooperative during one-to-one assessment. He is receptive with the plan of Wellbutrin increased up to 300 mg for depression. Reports passive SI, denies plan or intention. Denies other safety concerns. Encourage patient to go to groups and shower daily. Increase Wellbutrin XL to 300 mg daily for depression. He reported that he has bipolar type II. 03/31: Laying in bed. keeping to self. showered. patient reports feeling depressed ; pt stated, I'm not having a good day. I don't want to do anything . flat affect. denies SI/HI/VH/AH. Per nursing, slept 8 hours. encouraged to attend groups. continue current tx plan. 04/01/25: Patient slept for 8 hours, poor meal intake yesterday but was medication compliant. Denies side effects. When asked about if he has poor appetite as he ate only 50 of breakfast, and 25 for lunch and not eating dinner, he said because I did not do the menu, so I got what I do not like . He shower yesterday, continued to reports depression 03/21. Denied anxiety. He does not feel any difference from Wellbutrin 150 when and when it was increased up to 300 mg. Denies SI/SIB/HI/AVH, isolative self, he plans to attend groups today. This provider spoke with patient in length regarding medication trials. Per his report, has been trying so many antidepressants they just do not work, and continued to be depressed. Some of them are Zoloft, Paxil, Effexor, Celexa, Prozac, Cymbalta, Lexapro. He also having history of taking Zyprexa more than 20 years ago due to hearing voices. Then the voices was calm. He never has a take it again after. History of Abilify but not sure if it is working as he can not recall. Regarding ADLs: He said that he had food at the alf twice a day, but he is not showering for many days despite the fact that staff asked him to do so I just do not care about being clean . Reports very low energy, low motivation, been increased suicidal thoughts and depression. He used to love music and reading but not interested in doing anything like that anymore. Reported that he had gastric sleeve surgery back in August 2023 which he lost 230 lb. He weight 447 lb prior to the surgery. He identified that after the surgery he has been more depressed slowly over months. There was a time that he wanted to starve myself so I can when asked is that you that he has stopped eating at home. He also identified that he feel more depressed after surgery as he is not able to over eating like he did before. Family mental health illnesses: Reports that who both of his parents was depressed. Mom 11 years ago. 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 History of ECTs: Reports he had history of ECTs in 2010 when he was at in [facility].He felt worse after the treatment everything seems like a dream . He clarified that immediately after the treatment he feel that way which could be a side effects of ECT but not permanent. Educate patient on possible side effects ECTs. Patient denies having seizure during ECTs treatment, no seizure history no cardiac conditions/disease history. Reports history of hypertension, but not anymore. He also has been admitted to different hospitals for psychiatric admissions in the past couple of months. Reports staying at [facility] in December for a month. [facility] in the area names [facility]) in October for another month. Per email from his OP team- clinical director at [facility], they also express concerns of patient's conditions. It is noted that their concerns are very consistent with patient' report here on the unit. He also has been admitted to different hospitals for psychiatric admissions in the past couple of months. Reports staying at [facility] in December for a month. [facility] in the area names [facility]) in October for another month. Per email from his OP team- clinical director at [facility], they also express concerns of patient's conditions. It is noted that their concerns are very consistent with patient' report here on the unit. Alfredito has been in and out on inpatient level of care since October of this year, I believe every month, for a majority of the time. He was recently discharged from [facility] after a 1 month stay and within two hours of returning home wanted to return to the hospital, saying he was unwell, and within one day was sectioned by [facility], which is how he ended up with you now. He has been coming home and intentionally starving himself, even not eating for up to 1 week. We have known Alfredito for years and since this started in October, we have seen no significant improvement in his mental health or a return to baseline. In fact, we are observing his case as consistent with failure to thrive. We have been asking for him to be inpatient at [facility] or with you at [facility] for some time in order for him to be potentially considered for ECT level of treatment, if deemed appropriate. Multiple medication trials failture to target depressive symptoms. He will be a good candidate to get trial ECT treatment in combination with current medication regimens. Patient also agrees with the plan. We would start the treatment as soon as possible. Will discuss the case with in house psychiatrist-Dr. Ward to prepare for ECT treatment. Hope to start early next week. 04/02: Laying in bed. keeping to self. Patient continues to report feeling depressed; pt stated, I feel about the same. I spoke with the other provider and agreed to do ECT . He reports sleeping well. denies SI/HI/VH/AH. Encouraged to attend groups and shower. Continue current tx plan. 04/03: no changes- just started wellbutrin 04/04: no changes 04/05/25: report anxiety a 2-3 but still 03/21 for depression. No change since started Wellbutrin. He agrees to get Wellbutrin up to 450mg daily for depression. Isolative in room, staring up to the ceiling. Discuss with patient of option to start on Intuniv for severe depression. Patient declines it at this current time but agree to see Welbutrin increased would be helpful. He agrees with ECT. Encourage groups, he says he was at art group out to dinning area but there are too much so he went back to his room. Report not many groups offered over the weekends. 04/06/25: Patient slept for 6 hours, have a sleep study done last night. Reported that he did not sleep well. Appetite is okay. Mood is depressed 03/21, denies anxiety today. Denies suicidal thoughts, but reports he has passive SI yesterday intrusive, just do not Wanna live anymore . Denies hallucinations. Address with patient of why he having bowel movement in the shower. He said it is just one episode. Reports he feel constipated. Agree with Colace. He also inform regarding the ECT which was approved by the insurance. He compliant with medication, however reports he has not feeling any difference in terms of depression at since started on Wellbutrin. Encourage groups attendance. Observe him later on during the day reading at a table in dining area. Colace 100mg BID for constipation. ECT consult placed: Patient may be seen by tomorrow by Dr. Ward. Procedure done preparing for the ECT: Head CT scan negative, EKG normal sinus rhythm, Incomplete right bundle branch block. Borderline ECG_ no change when compare to previous EKG. Unremarkable CBC with diff. 04/07/25: Per hospitalist note: ECT risk stratification Patient without previous problems with anesthesia, has previously undergone ECT RCRI 0 points, no further cardiac workup or treatment indicated at this time EKG showed QT interval WNL, no evidence of ischemic changes Based on stated PMH, HPI, and physical exam, there are no apparent medical contraindications to the planned procedure. Patient is complaining of pelvic discomfort and constipation. We will add therapy with Senokot, MiraLax and obtain urinalysis to assess for urinary tract infection. Continue treatment with atorvastatin and aspirin for history of stroke and hyperlipidemia. 04/07/25: Patient compliant with medication, reports due to the pain abdominal, he could not sleep well last night. Continued to reports depressions 8/10, anxiety 4/10 today related to the pain. Denies suicidal thoughts or voices, isolated. Shower yesterday. Review with patient test need to be done prior to having ECT. Patient met with Dr. Ward and hospitalist for ECT clearance. Due to the pain, constipated, more laxative ordered today. Also UA other by hospitalist to rule out any infection. He is flat, low energy, low motivation, withdrawal, in room mostly, but come out to other rooms to talk to the providers 04/08/25: Patient slept for 8 hours, compliant with medications, denies side effect. Met with him in his room, reported that he slept better last night, having good bowel movement, denies diarrhea is. Informed him regarding the labs work/and UA that was negative to rule out UTI. Denies pain. Explained to patient regarding pre ECT procedures/test to prepare for the day that he going to start. We will start ECT on Saturday. Per Dr. Ward, we will taper down on Latuda, start him on Modafinil low dose to help with severe depression. Continued to reports moderate to severe depression. Denies suicidal thoughts or hallucinations. 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 He denied any significant or excessive drug exposure. I do not find any focal lesion, acute or chronic, suggestive of stroke. There was no contraindication to treatment with ECT. Otherwise treatment of this condition is supportive, symptomatic and conservative Taper down on Latuda from 120 down to 100 mg daily at 17:00 for mood. Start on Modefinil 100ng daily for severe depression, low energy, poor concentration, poor motivation. ECT will be scheduled next week on Saturday. We will received treatment for Saturday/Saturday and Saturday. 04/09/25: Patient denies pain, normal bowel movement, slept well and compliant with medications. Denies side effects. Denies suicidal thoughts or hallucinations but reports mild on anxiety and moderate to severe depression. Patient appeared to be disheveled. Encourage patient to be out of bed in attended to groups included OT groups which observe he is visible in day room after the conversation. The OT will do the [place] for pre ECT next week on Saturday prior the ECT. He started modafinil 50 mg this morning. Indication and side effects explained to patient. Patient is receptive with the plan. Correction: Modefinill 50mg daily. MOCA scheduled next week prior to ECT. 04/10:Laying in bed most of morning. Patient continues to report feeling depressed. He reports looking forward to ECT; pt stated, I think it will be a positive step to get ECT . denies SI/HI/VH/AH. Encouraged to get out of bed. Continue tx plan 04/11: Per nursing, pt did not get out of bed yesterday. Observed laying in bed this morning; encouraged to attend groups and shower. Patient continues to report feeling depressed. denies SI/HI/VH/AH. Encouraged to get out of bed. Continue tx plan. 04/12: continue current tx plan 04/13: stably depressed. PMR. start ECT tomorrow, otherwise continue current mgmt. NPO past MN. 04/14/25: got his first ECT treatment this afternoon. Patient slept for 6 hours, was medication compliant. However, this morning due to the delay of the ECT treatment, he was not happy about the delay into the afternoon. He appeared to be frustrated, irritable, and not cooperative with this provider I do not want to talk to anyone . I am done talking . I do not care when asked his last bowel movement. Per nursing, patient denies suicidal thoughts, other safety concerns. Reports he has no bowel movement x4 days. Medication this morning was held until after the ECT. He also was given citrate magnesium x1. Pending effect. 04/15: made bowel movement. ECT #2 tomorrow. no change in mood or presentation as of today. T/C increasing modafanil to 200 mg sometime next week. 04/16: completed ECT without incident. no FLOWERS today. no change in presentation otherwise. continue current mgmt. ECT #3 saturday. 04/17/2025: No changes. ECT # 3 Saturday04/19/202504/18: no changes 04/19: completed ECT #3 today. no FLOWERS, no change in presentation, no change in mood. continue current mgmt. T/C modafanil increase. 04/20: mood starting to improve. laughed, affect brighter and more flexible. ECT tomorrow, NPO after midnight. continue current mgmt otherwise. 04/21: irritable at afternoon ECT. short today. continue current mgmt. 04/22: not irritable, appears depressed, says mood is unchanged. ECT tomorrow. continue current mgmt. strongly consider increase in modafanil dosing. 04/23/2025: Patient seen ECT completed bilaterally. Patient with markedly poor ADLs almost catatonic like allowing himself to be covered in feces not showering or caring for himself. Change ECT to 0.25 would follow-up on response to bilateral treatment if to withdrawn would may be secondary to bilateral and might consider return to right unilateral. Wellbutrin lowered to 300 mg modafinil was started at 100 mg can consider increase to 150 mg targeting apathy lethargy. Patient started on lorazepam 1 mg p.o. t.i.d. had test doses and seemed significantly improved with more fluid speech and increase range of affect hold lorazepam night prior to ECT 04/24/25: Patient slept for 8 hours, no appetite issues. Denies SI/SIB/HI/AVH. Report anxiety a 2/10 and anxiety an 8/10 which he says he does not feel much different yet from ECT. He denies short term memory. He denies FLOWERS or tireness now but says shortly after ECT he had FLOWERS from yesterday which has been gone. He reports normal BM which laxative was held yesterday. Observed patient spent couple hours in dinning areas, eating out in activity room and spent time watching TV. Nursing also reports patient attended group in the art room as well. He also showered yesterday. He is visible, but quiet keep to self, flat affect, depressed mood. Slightly improvement compare to last visit that this provider saw him about 1-2 weeks ago. Ativan started yesterday which seem to have some effects. 04/25/25: Patient slept for 8 hours, compliant with medications, denies side effects. Deny feeling tired on Ativan. Per nursing patient have incident of incontinence of feces yesterday. Therefore Colace and MiraLax and senna has been held. Notes on to hold when has loose stools. Patient denies safety concerns. Reported the same anxiety and depression level. He is more in bed today compared to yesterday but was out for meals. Flat affect, fair eye contact, resting in room. Attended no groups. No changes in terms of mental status. May have ECT on Saturday morning. 04/26: in bed after ECT. flat, withdrawn, slowed, soft. states his mood remains the same as before, no better and no worse. agreeable to increase modafanil to 150 mg. no apparent cognitive or memory deficits. Reason for continued inpatient stay Substantial Risk for: harm to self and inability to function Time Spent With Patient Time: Total time managing care of this patient today _25___ minutes.
[2025-04-27 07:40] VITALS: BP 97/55; PULSE 99; RESP 12; TEMP 36.5; O2SAT 99
[2025-04-27] MEDS: Aspirin Enteric Coated 81 MG TABLET.DR PO (08:58)
[2025-04-27] MEDS: buPROPion HCl XL 300 MG TAB.ER.24H PO (08:59)
--- NOTE | 2025-04-27 13:30 | P.PNPSI_ITS ---
Subjective Subjective Date of Service: 04/27/25 Reason For Visit: SI depression Interim History: faster responses. states he feels the same as prior. agreeable to continuing bifrontal ECT. aware no ativan after this afternoon. per staff, blunted, isoltaive. withdrawn. showered. dep 8 anx 2. delayed responses. refusing colace and senna due to recent diarrhea. slept 8 hours. Mental Status Exam Mental Status Exam Narrative: Appearance: Casually dressed, unkempt, disheveled Behavior: Calm and cooperative, PMR Eye contact is fair Speech: soft, slowed, flattened prosody. Thought process logical and goal-directed Thought content: On treatment. Mood: the same Affect: constricted, normo-intense SI: none expressed HI: none expressed VH/AH: none expressed Delusions: None expressed Insight/judgment: impaired Diagnostics Vital Signs (24Hr): Vital Signs - 24 hr 04/26/25 19:25 04/27/25 07:40 Temperature 98.4 F 97.7 F Pulse Rate 96 99 Respiratory Rate 16 12 Blood Pressure 111/61 97/55 L Pulse Oximetry 96 99 Oxygen Delivery Method Room Air Room Air BMI result Body Mass Index 31.6 Labs 04/23/25 10:35 04/23/25 10:35 Imaging Radiology Impressions: ITS Impressions Head CT 04/06/25 13:54 IMPRESSION: No acute intracranial hemorrhage. Bifrontal bitemporal lobes atrophy. Electronically signed by: Roque Guillen MD 04/06/2025 02:15 PM EDT RP Medications Medications Current Medications Acetaminophen (Acetaminophen 325 Mg Tablet) 650 mg PO Q6H PRN PRN Reason: Headache/Pain, Scale 1-10 Last Admin: 04/14/25 20:25 Dose: 650 mg Al Hydroxide/Mg Hydroxide (Magnesium Hydrox/Alum Hydrox 30 Ml Oral.Susp) 30 ml PO Q6H PRN PRN Reason: Heartburn/Nausea Aspirin (Aspirin Enteric Coated 81 Mg Tablet.) 81 mg PO DAILY [facility] Last Admin: 04/27/25 08:58 Dose: 81 mg Atorvastatin Calcium (Atorvastatin Calcium 20 Mg Tablet) 20 mg PO BEDTIME [facility] Last Admin: 04/26/25 20:28 Dose: 20 mg Bisacodyl (Bisacodyl 5 Mg Tablet.) 10 mg PO DAILY PRN PRN Reason: severe Constipation Last Admin: 04/20/25 08:57 Dose: 10 mg Bupropion HCl (Bupropion Hcl Xl 300 Mg Tab.Er.24h) 300 mg PO DAILY [facility] Last Admin: 04/27/25 08:59 Dose: 300 mg Docusate Sodium (Docusate Sodium 100 Mg Capsule) 100 mg PO BID PRN PRN Reason: constipation Hydroxyzine HCl (Hydroxyzine Hcl 25 Mg Tablet) 25 mg PO Q6H PRN PRN Reason: mild anxiety Last Admin: 03/26/25 23:24 Dose: 25 mg Lorazepam (Lorazepam 1 Mg Tablet) 1 mg PO TID [facility] Last Admin: 04/27/25 08:59 Dose: 1 mg Lurasidone HCl (Lurasidone Hcl 40 Mg Tablet) 40 mg PO DAILY@1700 [facility] Last Admin: 04/26/25 17:17 Dose: 40 mg Magnesium Hydroxide (Milk Of Magnesia 30 Ml Oral.Susp) 30 ml PO DAILY PRN PRN Reason: Constipation Last Admin: 04/17/25 10:24 Dose: 30 ml Modafinil (Modafinil 100 Mg Tablet) 150 mg PO DAILY [facility] Last Admin: 04/27/25 08:58 Dose: 150 mg Nicotine (Nicotine 21 Mg Patch.Td24) 21 mg TRANSDERMA DAILY PRN PRN Reason: nicotine craving Nicotine Polacrilex (Nicotine Polacrilex 2 Mg Gum) 2 mg BUCCAL Q2H PRN PRN Reason: Nicotine Cravings Olanzapine (Olanzapine 5 Mg Tablet) 5 mg PO BID PRN PRN Reason: agitation Polyethylene Glycol (Polyethylene Glycol 3350 17 Gm Powd.Pack) 17 gm PO DAILY PRN PRN Reason: constipation Senna (Sennosides 8.6 Mg Tablet) 17.2 mg PO BEDTIME PRN PRN Reason: Constipation Trazodone HCl (Trazodone Hcl 50 Mg Tablet) 50 mg PO BEDTIME MRX1 PRN PRN Reason: Insomnia Last Admin: 04/05/25 23:14 Dose: 50 mg Allergies Allergies Allergy/AdvReac Type Severity Reaction Status Date / Time pumpkin Allergy Unknown Unknown Verified 12/24/24 12:26 Assessment & Plan Assessment & Plan (1) Bipolar disorder: Status: Acute Code(s): F31.9 - Bipolar disorder, unspecified (2) JUVENTINO (acute kidney injury): Status: Acute Code(s): N17.9 - Acute kidney failure, unspecified (3) CVA (cerebral vascular accident): Status: Acute Code(s): I63.9 - Cerebral infarction, unspecified (4) Abnormal head CT: Status: Acute Code(s): R93.0 - Abnormal findings on diagnostic imaging of skull and head, not elsewhere classified Plan 03/27: feels latuda 120 has been helpful. however, remains depressed. add wellbutrin XL 150 daily for depression, plan to increase to 300 mg daily in 3 days. may also consider ECT due to lack of improvement despite numerous recent hospitalizations + lethality of suicide attempts + recent self-abnegating behaviors. 03/28: no change in presentation, no requests or complaints. started wellbutrin 150 today. continue current mgmt 03/29/25: Slept well, no issues with appetite. Observed out on the unit, attended groups, engaging. Reports depression and 03/21, denies anxiety. Constricted affect, congruent with mood. Denies safety concerns. Compliant with medications. Denies side effects from Wellbutrin. Continue to encourage groups. 03/30/25: Patient slept for 6 hours, was medication compliant. He attended 2 groups yesterday, however today he is more isolated, in bed a lot more time, declines a couple groups. Reports depressed but no anxiety, flat affect, depressed, but cooperative during one-to-one assessment. He is receptive with the plan of Wellbutrin increased up to 300 mg for depression. Reports passive SI, denies plan or intention. Denies other safety concerns. Encourage patient to go to groups and shower daily. Increase Wellbutrin XL to 300 mg daily for depression. He reported that he has bipolar type II. 03/31: Laying in bed. keeping to self. showered. patient reports feeling depressed ; pt stated, I'm not having a good day. I don't want to do anything . flat affect. denies SI/HI/VH/AH. Per nursing, slept 8 hours. encouraged to attend groups. continue current tx plan. 04/01/25: Patient slept for 8 hours, poor meal intake yesterday but was medication compliant. Denies side effects. When asked about if he has poor appetite as he ate only 50 of breakfast, and 25 for lunch and not eating dinner, he said because I did not do the menu, so I got what I do not like . He shower yesterday, continued to reports depression 03/21. Denied anxiety. He does not feel any difference from Wellbutrin 150 when and when it was increased up to 300 mg. Denies SI/SIB/HI/AVH, isolative self, he plans to attend groups today. This provider spoke with patient in length regarding medication trials. Per his report, has been trying so many antidepressants they just do not work, and continued to be depressed. Some of them are Zoloft, Paxil, Effexor, Celexa, Prozac, Cymbalta, Lexapro. He also having history of taking Zyprexa more than 20 years ago due to hearing voices. Then the voices was calm. He never has a take it again after. History of Abilify but not sure if it is working as he can not recall. Regarding ADLs: He said that he had food at the nursing home twice a day, but he is not showering for many days despite the fact that staff asked him to do so I just do not care about being clean . Reports very low energy, low motivation, been increased suicidal thoughts and depression. He used to love music and reading but not interested in doing anything like that anymore. Reported that he had gastric sleeve surgery back in August 2023 which he lost 230 lb. He weight 447 lb prior to the surgery. He identified that after the surgery he has been more depressed slowly over months. There was a time that he wanted to starve myself so I can when asked is that you that he has stopped eating at home. He also identified that he feel more depressed after surgery as he is not able to over eating like he did before. Family mental health illnesses: Reports that who both of his parents was depressed. Mom 11 years ago. 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 History of ECTs: Reports he had history of ECTs in 2010 when he was at in [facility].He felt worse after the treatment everything seems like a dream . He clarified that immediately after the treatment he feel that way which could be a side effects of ECT but not permanent. Educate patient on possible side effects ECTs. Patient denies having seizure during ECTs treatment, no seizure history no cardiac conditions/disease history. Reports history of hypertension, but not anymore. He also has been admitted to different hospitals for psychiatric admissions in the past couple of months. Reports staying at [facility] in December for a month. [facility] hospital in the area names [facility]) in October for another month. Per email from his OP team- clinical director at [facility], they also express concerns of patient's conditions. It is noted that their concerns are very consistent with patient' report here on the unit. He also has been admitted to different hospitals for psychiatric admissions in the past couple of months. Reports staying at [facility] in December for a month. [facility] hospital in the area names [facility]) in October for another month. Per email from his OP team- clinical director at [facility], they also express concerns of patient's conditions. It is noted that their concerns are very consistent with patient' report here on the unit. Alfredito has been in and out on inpatient level of care since October of this year, I believe every month, for a majority of the time. He was recently discharged from [facility] after a 1 month stay and within two hours of returning home wanted to return to the hospital, saying he was unwell, and within one day was sectioned by [facility], which is how he ended up with you now. He has been coming home and intentionally starving himself, even not eating for up to 1 week. We have known Alfredito for years and since this started in October, we have seen no significant improvement in his mental health or a return to baseline. In fact, we are observing his case as consistent with failure to thrive. We have been asking for him to be inpatient at [facility] or with you at [facility] for some time in order for him to be potentially considered for ECT level of treatment, if deemed appropriate. Multiple medication trials failture to target depressive symptoms. He will be a good candidate to get trial ECT treatment in combination with current medication regimens. Patient also agrees with the plan. We would start the treatment as soon as possible. Will discuss the case with in house psychiatrist-Dr. Ward to prepare for ECT treatment. Hope to start early next week. 04/02: Laying in bed. keeping to self. Patient continues to report feeling depressed; pt stated, I feel about the same. I spoke with the other provider and agreed to do ECT . He reports sleeping well. denies SI/HI/VH/AH. Encouraged to attend groups and shower. Continue current tx plan. 04/03: no changes- just started wellbutrin 04/04: no changes 04/05/25: report anxiety a 2-3/10 but still 8/10 for depression. No change since started Wellbutrin. He agrees to get Wellbutrin up to 450mg daily for depression. Isolative in room, staring up to the ceiling. Discuss with patient of option to start on Intuniv for severe depression. Patient declines it at this current time but agree to see Welbutrin increased would be helpful. He agrees with ECT. Encourage groups, he says he was at art group out to dinning area but there are too much so he went back to his room. Report not many groups offered over the weekends. 04/06/25: Patient slept for 6 hours, have a sleep study done last night. Reported that he did not sleep well. Appetite is okay. Mood is depressed 03/21, denies anxiety today. Denies suicidal thoughts, but reports he has passive SI yesterday intrusive, just do not Wanna live anymore . Denies hallucinations. Address with patient of why he having bowel movement in the shower. He said it is just one episode. Reports he feel constipated. Agree with Colace. He also inform regarding the ECT which was approved by the insurance. He compliant with medication, however reports he has not feeling any difference in terms of depression at since started on Wellbutrin. Encourage groups attendance. Observe him later on during the day reading at a table in dining area. Colace 100mg BID for constipation. ECT consult placed: Patient may be seen by tomorrow by Dr. Ward. Procedure done preparing for the ECT: Head CT scan negative, EKG normal sinus rhythm, Incomplete right bundle branch block. Borderline ECG_ no change when compare to previous EKG. Unremarkable CBC with diff. 04/07/25: Per hospitalist note: ECT risk stratification Patient without previous problems with anesthesia, has previously undergone ECT RCRI 0 points, no further cardiac workup or treatment indicated at this time EKG showed QT interval WNL, no evidence of ischemic changes Based on stated PMH, HPI, and physical exam, there are no apparent medical contraindications to the planned procedure. Patient is complaining of pelvic discomfort and constipation. We will add therapy with Senokot, MiraLax and obtain urinalysis to assess for urinary tract infection. Continue treatment with atorvastatin and aspirin for history of stroke and hyperlipidemia. 04/07/25: Patient compliant with medication, reports due to the pain abdominal, he could not sleep well last night. Continued to reports depressions 8/10, anxiety 4/10 today related to the pain. Denies suicidal thoughts or voices, isolated. Shower yesterday. Review with patient test need to be done prior to having ECT. Patient met with Dr. Ward and hospitalist for ECT clearance. Due to the pain, constipated, more laxative ordered today. Also UA other by hospitalist to rule out any infection. He is flat, low energy, low motivation, withdrawal, in room mostly, but come out to other rooms to talk to the providers 04/08/25: Patient slept for 8 hours, compliant with medications, denies side effect. Met with him in his room, reported that he slept better last night, having good bowel movement, denies diarrhea is. Informed him regarding the labs work/and UA that was negative to rule out UTI. Denies pain. Explained to patient regarding pre ECT procedures/test to prepare for the day that he going to start. We will start ECT on Saturday. Per Dr. Ward, we will taper down on Latuda, start him on Modafinil low dose to help with severe depression. Continued to reports moderate to severe depression. Denies suicidal thoughts or hallucinations. 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 He denied any significant or excessive drug exposure. I do not find any focal lesion, acute or chronic, suggestive of stroke. There was no contraindication to treatment with ECT. Otherwise treatment of this condition is supportive, symptomatic and conservative Taper down on Latuda from 120 down to 100 mg daily at 17:00 for mood. Start on Modefinil 100ng daily for severe depression, low energy, poor concentration, poor motivation. ECT will be scheduled next week on Saturday. We will received treatment for Saturday/Saturday and Saturday. 04/09/25: Patient denies pain, normal bowel movement, slept well and compliant with medications. Denies side effects. Denies suicidal thoughts or hallucinations but reports mild on anxiety and moderate to severe depression. Patient appeared to be disheveled. Encourage patient to be out of bed in attended to groups included OT groups which observe he is visible in day room after the conversation. The OT will do the [place] for pre ECT next week on Saturday prior the ECT. He started modafinil 50 mg this morning. Indication and side effects explained to patient. Patient is receptive with the plan. Correction: Modefinill 50mg daily. MOCA scheduled next week prior to ECT. 04/10:Laying in bed most of morning. Patient continues to report feeling depressed. He reports looking forward to ECT; pt stated, I think it will be a positive step to get ECT . denies SI/HI/VH/AH. Encouraged to get out of bed. Continue tx plan 04/11: Per nursing, pt did not get out of bed yesterday. Observed laying in bed this morning; encouraged to attend groups and shower. Patient continues to report feeling depressed. denies SI/HI/VH/AH. Encouraged to get out of bed. Continue tx plan. 04/12: continue current tx plan 04/13: stably depressed. PMR. start ECT tomorrow, otherwise continue current mgmt. NPO past MN. 04/14/25: got his first ECT treatment this afternoon. Patient slept for 6 hours, was medication compliant. However, this morning due to the delay of the ECT treatment, he was not happy about the delay into the afternoon. He appeared to be frustrated, irritable, and not cooperative with this provider I do not want to talk to anyone . I am done talking . I do not care when asked his last bowel movement. Per nursing, patient denies suicidal thoughts, other safety concerns. Reports he has no bowel movement x4 days. Medication this morning was held until after the ECT. He also was given citrate magnesium x1. Pending effect. 04/15: made bowel movement. ECT #2 tomorrow. no change in mood or presentation as of today. T/C increasing modafanil to 200 mg sometime next week. 04/16: completed ECT without incident. no FLOWERS today. no change in presentation otherwise. continue current mgmt. ECT #3 saturday. 04/17/2025: No changes. ECT # 3 Saturday04/19/202504/18: no changes 04/19: completed ECT #3 today. no FLOWERS, no change in presentation, no change in mood. continue current mgmt. T/C modafanil increase. 04/20: mood starting to improve. laughed, affect brighter and more flexible. ECT tomorrow, NPO after midnight. continue current mgmt otherwise. 04/21: irritable at afternoon ECT. short today. continue current mgmt. 04/22: not irritable, appears depressed, says mood is unchanged. ECT tomorrow. continue current mgmt. strongly consider increase in modafanil dosing. 04/23/2025: Patient seen ECT completed bilaterally. Patient with markedly poor ADLs almost catatonic like allowing himself to be covered in feces not showering or caring for himself. Change ECT to 0.25 would follow-up on response to bilateral treatment if to withdrawn would may be secondary to bilateral and might consider return to right unilateral. Wellbutrin lowered to 300 mg modafinil was started at 100 mg can consider increase to 150 mg targeting apathy lethargy. Patient started on lorazepam 1 mg p.o. t.i.d. had test doses and seemed significantly improved with more fluid speech and increase range of affect hold lorazepam night prior to ECT 04/24/25: Patient slept for 8 hours, no appetite issues. Denies SI/SIB/HI/AVH. Report anxiety a 2/10 and anxiety an 8/10 which he says he does not feel much different yet from ECT. He denies short term memory. He denies FLOWERS or tireness now but says shortly after ECT he had FLOWERS from yesterday which has been gone. He reports normal BM which laxative was held yesterday. Observed patient spent couple hours in dinning areas, eating out in activity room and spent time watching TV. Nursing also reports patient attended group in the art room as well. He also showered yesterday. He is visible, but quiet keep to self, flat affect, depressed mood. Slightly improvement compare to last visit that this provider saw him about 1-2 weeks ago. Ativan started yesterday which seem to have some effects. 04/25/25: Patient slept for 8 hours, compliant with medications, denies side effects. Deny feeling tired on Ativan. Per nursing patient have incident of incontinence of feces yesterday. Therefore Colace and MiraLax and senna has been held. Notes on to hold when has loose stools. Patient denies safety concerns. Reported the same anxiety and depression level. He is more in bed today compared to yesterday but was out for meals. Flat affect, fair eye contact, resting in room. Attended no groups. No changes in terms of mental status. May have ECT on Saturday morning. 04/26: in bed after ECT. flat, withdrawn, slowed, soft. states his mood remains the same as before, no better and no worse. agreeable to increase modafanil to 150 mg. no apparent cognitive or memory deficits. 04/27: perhaps less slowed than recently. hold ativan this afternoon and overnight. NPO past MN. continue bifrontal ECT in the morning. Reason for continued inpatient stay Substantial Risk for: harm to self, inability to function and rapid decompensation Time Spent With Patient Time: Total time managing care of this patient today __25__ minutes.
[2025-04-27 20:00] VITALS: BP 104/61; RESP 16; TEMP 36.9; O2SAT 97
[2025-04-28] VITALS (8 sets, daily range): BP systolic 105–153; BP diastolic 63–116; PULSE 68–99; RESP 16–22; TEMP 36.1–37; O2SAT 94–100
--- NOTE | 2025-04-28 06:50 | MHC.SHP ---
Pre-Procedural Eval Section A - 24 Hr Update-Section A only Date of Service: 04/28/25 The patient is an INPATIENT: Yes Changes since office visit: Yes Patient answered all questions; No Cold of Flu in the past 2 weeks, No New Medical Problems and No Changes in Medication The patient has been examined within 24 hours of the surgical procedure. The History & Physical has been completed within 30 days and I have reviewed it.: Yes Section B - Complete if H&P > 30 days Chief Complaint: SI depression Allergies: Allergies Allergy/AdvReac Type Severity Reaction Status Date / Time pumpkin Allergy Unknown Unknown Verified 12/24/24 12:26 Plan Diagnosis/Plan: Unchanged I have reviewed the history and physical and performed a pertinent physical examination on my patient. No changes have occurred unless specified. Time Spent With Patient Time: Total time managing care of this patient today _30___ minutes.
[2025-04-28] MEDS: Lactated Ringers 1,000 ML 50 ML IVCONT (07:00)
--- NOTE | 2025-04-28 07:04 | P.CONAN_ITS ---
[facility] Active Problems Active Problems: All Active Problems (Updated 04/08/25 @ 17:29 by Drew Ward MD) CVA (cerebral vascular accident) (Acute) Abnormal head CT (Acute) JUVENTINO (acute kidney injury) (Acute) Depression (Acute) Bipolar disorder (Acute) H/O gastric sleeve (Acute) Past Medical History Medical History Obesity LUIS (obstructive sleep apnea) HLD (hyperlipidemia) HTN (hypertension) CVA (cerebral vascular accident) Functional capacity: independent ambulation Family History Family history of problems with anesthesia: No Surgical History History of Problems with Anesthesia: No Social History Social History Household Members: Other Household Members Other:: transitional housing Housing: Other Do you presently have visiting nurse or other home services: No Patient Tobacco Use Status: Never used Tobacco Second Hand Smoke Exposure: Yes Currently Displaying Signs/Symptoms of Drug Intoxication Withdrawal: No Have you been hit, kicked, punched, or otherwise hurt by someone within the past year? If so, by whom?: No Do you feel safe in your current relationship?: No Current Relationship Is there a partner from a previous relationship who is making you feel unsafe now?: No Are you made to feel afraid or neglected: No Advance Directives: No Advance Directives Information Provided: No Do you have thoughts of harming others: None Do you have a plan to hurt others: No Plan Recently lost weight without trying: No Eating poorly because of decreased appetite: No Nutrition Risks: No Nutritional Risk Poor oral hygiene: Yes (very dry scalp) service: No Sexual orientation: Straight/Heterosexual Meds Allergies Allergy/AdvReac Type Severity Reaction Status Date / Time pumpkin Allergy Unknown Unknown Verified 12/24/24 12:26 Active Medications: Current Medications Acetaminophen (Acetaminophen 325 Mg Tablet) 650 mg PO Q6H PRN PRN Reason: Headache/Pain, Scale 1-10 Last Admin: 04/14/25 20:25 Dose: 650 mg Al Hydroxide/Mg Hydroxide (Magnesium Hydrox/Alum Hydrox 30 Ml Oral.Susp) 30 ml PO Q6H PRN PRN Reason: Heartburn/Nausea Aspirin (Aspirin Enteric Coated 81 Mg Tablet.Dr) 81 mg PO DAILY JENNIFER Last Admin: 04/27/25 08:58 Dose: 81 mg Atorvastatin Calcium (Atorvastatin Calcium 20 Mg Tablet) 20 mg PO BEDTIME [facility] Last Admin: 04/27/25 21:00 Dose: 20 mg Bisacodyl (Bisacodyl 5 Mg Tablet.Dr) 10 mg PO DAILY PRN PRN Reason: severe Constipation Last Admin: 04/20/25 08:57 Dose: 10 mg Bupropion HCl (Bupropion Hcl Xl 300 Mg Tab.Er.24h) 300 mg PO DAILY [facility] Last Admin: 04/27/25 08:59 Dose: 300 mg Docusate Sodium (Docusate Sodium 100 Mg Capsule) 100 mg PO BID PRN PRN Reason: constipation Hydroxyzine HCl (Hydroxyzine Hcl 25 Mg Tablet) 25 mg PO Q6H PRN PRN Reason: mild anxiety Last Admin: 03/26/25 23:24 Dose: 25 mg Lorazepam (Lorazepam 1 Mg Tablet) 1 mg PO TID [facility] On Hold: 04/27/25 13:35 Last Admin: 04/27/25 08:59 Dose: 1 mg Lurasidone HCl (Lurasidone Hcl 40 Mg Tablet) 40 mg PO DAILY@1700 [facility] Last Admin: 04/27/25 17:29 Dose: 40 mg Magnesium Hydroxide (Milk Of Magnesia 30 Ml Oral.Susp) 30 ml PO DAILY PRN PRN Reason: Constipation Last Admin: 04/17/25 10:24 Dose: 30 ml Modafinil (Modafinil 100 Mg Tablet) 150 mg PO DAILY [facility] Last Admin: 04/27/25 08:58 Dose: 150 mg Nicotine (Nicotine 21 Mg Patch.Td24) 21 mg TRANSDERMA DAILY PRN PRN Reason: nicotine craving Nicotine Polacrilex (Nicotine Polacrilex 2 Mg Gum) 2 mg BUCCAL Q2H PRN PRN Reason: Nicotine Cravings Olanzapine (Olanzapine 5 Mg Tablet) 5 mg PO BID PRN PRN Reason: agitation Polyethylene Glycol (Polyethylene Glycol 3350 17 Gm Powd.Pack) 17 gm PO DAILY PRN PRN Reason: constipation Senna (Sennosides 8.6 Mg Tablet) 17.2 mg PO BEDTIME PRN PRN Reason: Constipation Trazodone HCl (Trazodone Hcl 50 Mg Tablet) 50 mg PO BEDTIME MRX1 PRN PRN Reason: Insomnia Last Admin: 04/05/25 23:14 Dose: 50 mg Exam Height,Weight and Vital Signs: Height 5 ft 9 in Weight 97.069 kg Last Vital Signs Temp 97.7 F 04/28/25 06:41 Pulse 68 04/28/25 06:41 Resp 18 04/28/25 06:41 BP 135/73 04/28/25 06:41 Pulse Ox 94 04/28/25 06:41 O2 Del Method Room Air 04/28/25 06:41 O2 Flow Rate 6 04/14/25 13:46 Pertinent Lab Results Pertinent Lab Results: Laboratory Tests 03/26/25 03/26/25 03/27/25 14:42 15:45 08:31 WBC 9.9 RBC 4.34 L Hgb 12.8 L Hct 38.3 L MCV 88.2 MCH 29.5 MCHC 33.4 RDW 14.6 Plt Count 191 MPV 10.6 Immature Gran % (Auto) 0.2 Neut % (Auto) 61.2 Lymph % (Auto) 28.9 [place] % (Auto) 8.8 Eos % (Auto) 0.7 Baso % (Auto) 0.2 Lymph # (Auto) 2.9 [place] # (Auto) 0.9 Eos # (Auto) 0.1 Baso # (Auto) 0.0 Abs Immat Gran (auto) 0.02 Absolute Neuts (auto) 6.1 Absolute Nucleated RBC 0.000 Nucleated RBC % (auto) 0.0 Sodium 138 143 Potassium 4.4 4.2 Chloride 103 106 Carbon Dioxide 26 23 Anion Gap 13 18 BUN 18 H 16 Creatinine 1.55 H 1.19 Estim Creat Clear Calc 65.6 86.0 Estimated GFR 48 > 60 POC Glucose Random Glucose 93 78 Estimat Average Glucose 91 Hemoglobin A1c % 4.8 Calcium 9.0 9.0 Total Bilirubin 1.1 H AST 28 ALT 11 Alkaline Phosphatase 62 B-Natriuretic Peptide Total Protein 6.0 L Albumin 3.7 Triglycerides 66 Cholesterol 153 LDL Cholesterol, Calc 92 HDL Cholesterol 48 TSH 3.31 Free T4 1.09 Urine Color Yellow Urine Appearance Cloudy Urine pH 5.5 Ur Specific [place] 1.015 Urine Protein 30 (1+) H Urine Glucose (UA) Negative Urine Ketones Negative Urine Blood Negative Urine Nitrite Negative Ur Leukocyte Esterase Trace H Urine RBC 0-2 Urine WBC 0-5 Ur Squamous Epith Cells 6-10 Urine Bacteria None Seen Hyaline Casts >20 Salicylates < 5.0 L Urine Opiates Screen Not Detected Ur Buprenorphine Scrn Not Detected Ur Oxycodone Screen Not Detected Urine Methadone Screen Not Detected Urine Fentanyl Screen Not Detected Acetaminophen < 3 Ur Barbiturates Screen Not Detected Ur Phencyclidine Scrn Not Detected Ur Amphetamines Screen Not Detected U Benzodiazepines Scrn Not Detected Urine Cocaine Screen Not Detected U Marijuana (THC) Screen Not Detected Ethyl Alcohol < 10 T.pallidum Ab (EIA) Influenza Type A (PCR) NEGATIVE Influenza Type B (PCR) NEGATIVE RSV RNA Qual (PCR) NEGATIVE SARS-CoV-2 RNA (RT-PCR) NEGATIVE 04/06/25 04/07/25 04/07/25 14:28 08:07 21:30 WBC 9.1 RBC 4.59 L Hgb 13.4 L Hct 40.9 L MCV 89.1 MCH 29.2 MCHC 32.8 RDW 14.0 Plt Count 303 D MPV 10.6 Immature Gran % (Auto) 0.4 Neut % (Auto) 58.1 Lymph % (Auto) 32.8 [place] % (Auto) 6.4 Eos % (Auto) 2.1 Baso % (Auto) 0.2 Lymph # (Auto) 3.0 [place] # (Auto) 0.6 Eos # (Auto) 0.2 Baso # (Auto) 0.0 Abs Immat Gran (auto) 0.04 H Absolute Neuts (auto) 5.3 Absolute Nucleated RBC 0.000 Nucleated RBC % (auto) 0.0 Sodium 143 Potassium 4.6 Chloride 105 Carbon Dioxide 28 Anion Gap 15 BUN 17 H Creatinine 1.35 Estim Creat Clear Calc 75.5 Estimated GFR 56 POC Glucose Random Glucose 96 Estimat Average Glucose Hemoglobin A1c % Calcium 9.4 Total Bilirubin 0.6 AST 26 ALT 23 Alkaline Phosphatase 66 B-Natriuretic Peptide Total Protein 6.4 L Albumin 3.9 Triglycerides Cholesterol LDL Cholesterol, Calc HDL Cholesterol TSH 2.42 Free T4 Urine Color Yellow Urine Appearance Clear Urine pH 6.0 Ur Specific [place] 1.010 Urine Protein Negative Urine Glucose (UA) Negative Urine Ketones Negative Urine Blood Negative Urine Nitrite Negative Ur Leukocyte Esterase Negative Urine RBC Urine WBC Ur Squamous Epith Cells Urine Bacteria Hyaline Casts Salicylates Urine Opiates Screen Ur Buprenorphine Scrn Ur Oxycodone Screen Urine Methadone Screen Urine Fentanyl Screen Acetaminophen Ur Barbiturates Screen Ur Phencyclidine Scrn Ur Amphetamines Screen U Benzodiazepines Scrn Urine Cocaine Screen U Marijuana (THC) Screen Ethyl Alcohol T.pallidum Ab (EIA) Influenza Type A (PCR) Influenza Type B (PCR) RSV RNA Qual (PCR) SARS-CoV-2 RNA (RT-PCR) 04/10/25 04/20/25 04/23/25 09:18 20:47 10:35 WBC 8.6 RBC 4.73 Hgb 14.0 Hct 41.5 L MCV 87.7 MCH 29.6 MCHC 33.7 RDW 13.2 Plt Count 233 MPV 10.3 Immature Gran % (Auto) 0.5 H Neut % (Auto) 58.3 Lymph % (Auto) 33.4 [place] % (Auto) 5.9 Eos % (Auto) 1.6 Baso % (Auto) 0.3 Lymph # (Auto) 2.9 [place] # (Auto) 0.5 Eos # (Auto) 0.1 Baso # (Auto) 0.0 Abs Immat Gran (auto) 0.04 H Absolute Neuts (auto) 5.0 Absolute Nucleated RBC 0.000 Nucleated RBC % (auto) 0.0 Sodium 139 Potassium 4.6 Chloride 105 Carbon Dioxide 27 Anion Gap 12 BUN 21 H Creatinine 1.40 Estim Creat Clear Calc 73.3 Estimated GFR 54 POC Glucose 102 Random Glucose 87 Estimat Average Glucose Hemoglobin A1c % Calcium 8.8 D Total Bilirubin 0.8 AST 20 ALT 17 Alkaline Phosphatase 65 B-Natriuretic Peptide < 10 Total Protein 6.0 L Albumin 3.6 Triglycerides Cholesterol LDL Cholesterol, Calc HDL Cholesterol TSH Free T4 Urine Color Urine Appearance Urine pH Ur Specific [place] Urine Protein Urine Glucose (UA) Urine Ketones Urine Blood Urine Nitrite Ur Leukocyte Esterase Urine RBC Urine WBC Ur Squamous Epith Cells Urine Bacteria Hyaline Casts Salicylates Urine Opiates Screen Ur Buprenorphine Scrn Ur Oxycodone Screen Urine Methadone Screen Urine Fentanyl Screen Acetaminophen Ur Barbiturates Screen Ur Phencyclidine Scrn Ur Amphetamines Screen U Benzodiazepines Scrn Urine Cocaine Screen U Marijuana (THC) Screen Ethyl Alcohol T.pallidum Ab (EIA) Nonreactive Influenza Type A (PCR) Influenza Type B (PCR) RSV RNA Qual (PCR) SARS-CoV-2 RNA (RT-PCR) Airway Mallampati Class: III TM Dist: >3cm Neck ROM: Full Partial: Upper Heart: rrr Lungs: cta Assessment and Plan Assessment Anesthesia Assessment: Anesthesia Plan Discussed and Chart Reviewed Final Anesthetic Review Family History of Problems with Anesthesia: No History of Problems with Anesthesia: No NPO: Yes ASA Class: III Final Preanesthetic Review: No Changes in Pt Med Stat, Meds/Allgs Chart Reviewed and Consent Obtained/Reviewed Patient Risk: Intermediate Procedure Risk: Intermediate Anesthetic Plan Anesthetic Plan: GA Disposition: Standard PACU
--- NOTE | 2025-04-28 08:08 | HO.ECTPROC ---
ECT Procedure Note Diagnosis/Treatment Date of Service: 04/28/25 Diagnosis: Bipolar disorder Previous ECT Date: 04/26/25 Current Treatment Number: 7 Treatment: Series Interval Clinical Notes: less PMR than last week Time: Total time managing care of this patient today __30__ minutes. ECT Settings Device: THYMATRON DGx Electrode Placement: Bifrontal Program/Pulse Width: 0.25 Energy Percent: 65 Seizure Duration By EEG (in seconds): 41 Medications Administration General Anesthetic: Etomidate (18) Muscle Relaxant: Succinylcholine (100) Ancillary Medications Miscillaneous Medications: Propofol (30) Airway Management Airway Management: Bag Mask Ventilation Treatment Recommendations No Changes Recommended: No change Notes: recommended to have midline due to difficulty establishing IV access at each treatment Pt Tolerated Procedure w/o Issue: Yes
[2025-04-28] MEDS: Aspirin Enteric Coated 81 MG TABLET.DR PO (09:10)
[2025-04-28] MEDS: buPROPion HCl XL 300 MG TAB.ER.24H PO (09:10)
--- NOTE | 2025-04-28 13:05 | P.PNPSI_ITS ---
Subjective Subjective Date of Service: 04/28/25 Reason For Visit: SI depression Interim History: back from ECT, feeling improved. more affectively expressive, faster responses. agreeable to decrease ativan. feels he is improving. per staff, dep 8 anx 2 yesterday, dep 5 eves. affect improving. feeling better. slept 8 hours. Mental Status Exam Mental Status Exam Narrative: Appearance: Casually dressed, unkempt, disheveled Behavior: Calm and cooperative, PMR Eye contact is fair Speech: soft, slowed, flattened prosody. Thought process logical and goal-directed Thought content: On treatment. Mood: feeling better Affect: more flexible, normo-intense SI: none expressed HI: none expressed VH/AH: none expressed Delusions: None expressed Insight/judgment: impaired Diagnostics Vital Signs (24Hr): Vital Signs - 24 hr 04/27/25 20:00 04/28/25 06:41 04/28/25 08:12 Temperature 98.4 F 97.7 F 97.4 F Pulse Rate 68 90 Respiratory Rate 16 18 20 Blood Pressure 104/61 135/73 145/84 H Pulse Oximetry 97 94 100 Oxygen Delivery Method Room Air Room Air Room Air 04/28/25 08:17 04/28/25 08:22 04/28/25 08:27 Temperature Pulse Rate 99 80 84 Respiratory Rate 20 22 H 20 Blood Pressure 152/96 H 150/116 H 153/89 H Pulse Oximetry 100 100 100 Oxygen Delivery Method Room Air Room Air Room Air 04/28/25 08:42 04/28/25 09:15 04/28/25 09:15 Temperature 97 F 98.1 F 98.1 F Pulse Rate 74 71 71 Respiratory Rate 19 16 16 Blood Pressure 141/85 H 134/89 134/89 Pulse Oximetry 100 100 100 Oxygen Delivery Method Room Air Room Air BMI result Body Mass Index 31.6 Labs 04/23/25 10:35 04/23/25 10:35 Imaging Radiology Impressions: ITS Impressions Head CT 04/06/25 13:54 IMPRESSION: No acute intracranial hemorrhage. Bifrontal bitemporal lobes atrophy. Electronically signed by: Roque Guillen MD 04/06/2025 02:15 PM EDT Medications Medications Current Medications Acetaminophen (Acetaminophen 325 Mg Tablet) 650 mg PO Q6H PRN PRN Reason: Headache/Pain, Scale 1-10 Last Admin: 04/14/25 20:25 Dose: 650 mg Al Hydroxide/Mg Hydroxide (Magnesium Hydrox/Alum Hydrox 30 Ml Oral.Susp) 30 ml PO Q6H PRN PRN Reason: Heartburn/Nausea Aspirin (Aspirin Enteric Coated 81 Mg Tablet.Dr) 81 mg PO DAILY [facility] Last Admin: 04/28/25 09:10 Dose: 81 mg Atorvastatin Calcium (Atorvastatin Calcium 20 Mg Tablet) 20 mg PO BEDTIME [facility] Last Admin: 04/27/25 21:00 Dose: 20 mg Bisacodyl (Bisacodyl 5 Mg Tablet.) 10 mg PO DAILY PRN PRN Reason: severe Constipation Last Admin: 04/20/25 08:57 Dose: 10 mg Bupropion HCl (Bupropion Hcl Xl 300 Mg Tab.Er.24h) 300 mg PO DAILY [facility] Last Admin: 04/28/25 09:10 Dose: 300 mg Docusate Sodium (Docusate Sodium 100 Mg Capsule) 100 mg PO BID PRN PRN Reason: constipation Hydroxyzine HCl (Hydroxyzine Hcl 25 Mg Tablet) 25 mg PO Q6H PRN PRN Reason: mild anxiety Last Admin: 03/26/25 23:24 Dose: 25 mg Lorazepam (Lorazepam 0.5 Mg Tablet) 0.5 mg PO TID [facility] Lurasidone HCl (Lurasidone Hcl 40 Mg Tablet) 40 mg PO DAILY@1700 [facility] Last Admin: 04/27/25 17:29 Dose: 40 mg Magnesium Hydroxide (Milk Of Magnesia 30 Ml Oral.Susp) 30 ml PO DAILY PRN PRN Reason: Constipation Last Admin: 04/17/25 10:24 Dose: 30 ml Modafinil (Modafinil 100 Mg Tablet) 150 mg PO DAILY [facility] Last Admin: 04/28/25 09:10 Dose: 150 mg Nicotine (Nicotine 21 Mg Patch.Td24) 21 mg TRANSDERMA DAILY PRN PRN Reason: nicotine craving Nicotine Polacrilex (Nicotine Polacrilex 2 Mg Gum) 2 mg BUCCAL Q2H PRN PRN Reason: Nicotine Cravings Olanzapine (Olanzapine 5 Mg Tablet) 5 mg PO BID PRN PRN Reason: agitation Polyethylene Glycol (Polyethylene Glycol 3350 17 Gm Powd.Pack) 17 gm PO DAILY PRN PRN Reason: constipation Senna (Sennosides 8.6 Mg Tablet) 17.2 mg PO BEDTIME PRN PRN Reason: Constipation Trazodone HCl (Trazodone Hcl 50 Mg Tablet) 50 mg PO BEDTIME MRX1 PRN PRN Reason: Insomnia Last Admin: 04/05/25 23:14 Dose: 50 mg Allergies Allergies Allergy/AdvReac Type Severity Reaction Status Date / Time pumpkin Allergy Unknown Unknown Verified 12/24/24 12:26 Assessment & Plan Assessment & Plan (1) Bipolar disorder: Status: Acute Code(s): F31.9 - Bipolar disorder, unspecified (2) JUVENTINO (acute kidney injury): Status: Acute Code(s): N17.9 - Acute kidney failure, unspecified (3) CVA (cerebral vascular accident): Status: Acute Code(s): I63.9 - Cerebral infarction, unspecified (4) Abnormal head CT: Status: Acute Code(s): R93.0 - Abnormal findings on diagnostic imaging of skull and head, not elsewhere classified Plan 03/27: feels latuda 120 has been helpful. however, remains depressed. add wellbutrin XL 150 daily for depression, plan to increase to 300 mg daily in 3 days. may also consider ECT due to lack of improvement despite numerous recent hospitalizations + lethality of suicide attempts + recent self-abnegating behaviors. 03/28: no change in presentation, no requests or complaints. started wellbutrin 150 today. continue current mgmt 03/29/25: Slept well, no issues with appetite. Observed out on the unit, attended groups, engaging. Reports depression and 03/21, denies anxiety. Constricted affect, congruent with mood. Denies safety concerns. Compliant with medications. Denies side effects from Wellbutrin. Continue to encourage groups. 03/30/25: Patient slept for 6 hours, was medication compliant. He attended 2 groups yesterday, however today he is more isolated, in bed a lot more time, declines a couple groups. Reports depressed but no anxiety, flat affect, depressed, but cooperative during one-to-one assessment. He is receptive with the plan of Wellbutrin increased up to 300 mg for depression. Reports passive SI, denies plan or intention. Denies other safety concerns. Encourage patient to go to groups and shower daily. Increase Wellbutrin XL to 300 mg daily for depression. He reported that he has bipolar type II. 03/31: Laying in bed. keeping to self. showered. patient reports feeling depressed ; pt stated, I'm not having a good day. I don't want to do anything . flat affect. denies SI/HI/VH/AH. Per nursing, slept 8 hours. encouraged to attend groups. continue current tx plan. 04/01/25: Patient slept for 8 hours, poor meal intake yesterday but was medication compliant. Denies side effects. When asked about if he has poor appetite as he ate only 50 of breakfast, and 25 for lunch and not eating dinner, he said because I did not do the menu, so I got what I do not like . He shower yesterday, continued to reports depression 03/21. Denied anxiety. He does not feel any difference from Wellbutrin 150 when and when it was increased up to 300 mg. Denies SI/SIB/HI/AVH, isolative self, he plans to attend groups today. This provider spoke with patient in length regarding medication trials. Per his report, has been trying so many antidepressants they just do not work, and continued to be depressed. Some of them are Zoloft, Paxil, Effexor, Celexa, Prozac, Cymbalta, Lexapro. He also having history of taking Zyprexa more than 20 years ago due to hearing voices. Then the voices was calm. He never has a take it again after. History of Abilify but not sure if it is working as he can not recall. Regarding ADLs: He said that he had food at the [place] twice a day, but he is not showering for many days despite the fact that staff asked him to do so I just do not care about being clean . Reports very low energy, low motivation, been increased suicidal thoughts and depression. He used to love music and reading but not interested in doing anything like that anymore. Reported that he had gastric sleeve surgery back in August 2023 which he lost 230 lb. He weight 447 lb prior to the surgery. He identified that after the surgery he has been more depressed slowly over months. There was a time that he wanted to starve myself so I can when asked is that you that he has stopped eating at home. He also identified that he feel more depressed after surgery as he is not able to over eating like he did before. Family mental health illnesses: Reports that who both of his parents was depressed. Mom 11 years ago. 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 History of ECTs: Reports he had history of ECTs in 2010 when he was at in [facility].He felt worse after the treatment everything seems like a dream . He clarified that immediately after the treatment he feel that way which could be a side effects of ECT but not permanent. Educate patient on possible side effects ECTs. Patient denies having seizure during ECTs treatment, no seizure history no cardiac conditions/disease history. Reports history of hypertension, but not anymore. He also has been admitted to different hospitals for psychiatric admissions in the past couple of months. Reports staying at [facility] in December for a month. [facility] in the area names [facility]) in October for another month. Per email from his OP team- clinical director at [facility], they also express concerns of patient's conditions. It is noted that their concerns are very consistent with patient' report here on the unit. He also has been admitted to different hospitals for psychiatric admissions in the past couple of months. Reports staying at [facility] in December for a month. [facility] in the area names [facility]) in October for another month. Per email from his OP team- clinical director at [facility], they also express concerns of patient's conditions. It is noted that their concerns are very consistent with patient' report here on the unit. Alfredito has been in and out on inpatient level of care since October of this year, I believe every month, for a majority of the time. He was recently discharged from [facility] after a 1 month stay and within two hours of returning home wanted to return to the hospital, saying he was unwell, and within one day was sectioned by [facility], which is how he ended up with you now. He has been coming home and intentionally starving himself, even not eating for up to 1 week. We have known Alfredito for years and since this started in October, we have seen no significant improvement in his mental health or a return to baseline. In fact, we are observing his case as consistent with failure to thrive. We have been asking for him to be inpatient at [facility] or with you at [facility] for some time in order for him to be potentially considered for ECT level of treatment, if deemed appropriate. Multiple medication trials failture to target depressive symptoms. He will be a good candidate to get trial ECT treatment in combination with current medication regimens. Patient also agrees with the plan. We would start the treatment as soon as possible. Will discuss the case with in house psychiatrist-Dr. Ward to prepare for ECT treatment. Hope to start early next week. 04/02: Laying in bed. keeping to self. Patient continues to report feeling depressed; pt stated, I feel about the same. I spoke with the other provider and agreed to do ECT . He reports sleeping well. denies SI/HI/VH/AH. Encouraged to attend groups and shower. Continue current tx plan. 04/03: no changes- just started wellbutrin 04/04: no changes 04/05/25: report anxiety a 2-3 but still 03/21 for depression. No change since started Wellbutrin. He agrees to get Wellbutrin up to 450mg daily for depression. Isolative in room, staring up to the ceiling. Discuss with patient of option to start on Intuniv for severe depression. Patient declines it at this current time but agree to see Welbutrin increased would be helpful. He agrees with ECT. Encourage groups, he says he was at art group out to dinning area but there are too much so he went back to his room. Report not many groups offered over the weekends. 04/06/25: Patient slept for 6 hours, have a sleep study done last night. Reported that he did not sleep well. Appetite is okay. Mood is depressed 03/21, denies anxiety today. Denies suicidal thoughts, but reports he has passive SI yesterday intrusive, just do not Wanna live anymore . Denies hallucinations. Address with patient of why he having bowel movement in the shower. He said it is just one episode. Reports he feel constipated. Agree with Colace. He also inform regarding the ECT which was approved by the insurance. He compliant with medication, however reports he has not feeling any difference in terms of depression at since started on Wellbutrin. Encourage groups attendance. Observe him later on during the day reading at a table in dining area. Colace 100mg BID for constipation. ECT consult placed: Patient may be seen by tomorrow by Dr. Ward. Procedure done preparing for the ECT: Head CT scan negative, EKG normal sinus rhythm, Incomplete right bundle branch block. Borderline ECG_ no change when compare to previous EKG. Unremarkable CBC with diff. 04/07/25: Per hospitalist note: ECT risk stratification Patient without previous problems with anesthesia, has previously undergone ECT RCRI 0 points, no further cardiac workup or treatment indicated at this time EKG showed QT interval WNL, no evidence of ischemic changes Based on stated PMH, HPI, and physical exam, there are no apparent medical contraindications to the planned procedure. Patient is complaining of pelvic discomfort and constipation. We will add therapy with Senokot, MiraLax and obtain urinalysis to assess for urinary tract infection. Continue treatment with atorvastatin and aspirin for history of stroke and hyperlipidemia. 04/07/25: Patient compliant with medication, reports due to the pain abdominal, he could not sleep well last night. Continued to reports depressions 8/10, anxiety 4/10 today related to the pain. Denies suicidal thoughts or voices, isolated. Shower yesterday. Review with patient test need to be done prior to having ECT. Patient met with Dr. Ward and hospitalist for ECT clearance. Due to the pain, constipated, more laxative ordered today. Also UA other by hospitalist to rule out any infection. He is flat, low energy, low motivation, withdrawal, in room mostly, but come out to other rooms to talk to the providers 04/08/25: Patient slept for 8 hours, compliant with medications, denies side effect. Met with him in his room, reported that he slept better last night, having good bowel movement, denies diarrhea is. Informed him regarding the labs work/and UA that was negative to rule out UTI. Denies pain. Explained to patient regarding pre ECT procedures/test to prepare for the day that he going to start. We will start ECT on Saturday. Per Dr. Ward, we will taper down on Latuda, start him on Modafinil low dose to help with severe depression. Continued to reports moderate to severe depression. Denies suicidal thoughts or hallucinations. 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 He denied any significant or excessive drug exposure. I do not find any focal lesion, acute or chronic, suggestive of stroke. There was no contraindication to treatment with ECT. Otherwise treatment of this condition is supportive, symptomatic and conservative Taper down on Latuda from 120 down to 100 mg daily at 17:00 for mood. Start on Modefinil 100ng daily for severe depression, low energy, poor concentration, poor motivation. ECT will be scheduled next week on Saturday. We will received treatment for Saturday/Saturday and Saturday. 04/09/25: Patient denies pain, normal bowel movement, slept well and compliant with medications. Denies side effects. Denies suicidal thoughts or hallucinations but reports mild on anxiety and moderate to severe depression. Patient appeared to be disheveled. Encourage patient to be out of bed in attended to groups included OT groups which observe he is visible in day room after the conversation. The OT will do the [place] for pre ECT next week on Saturday prior the ECT. He started modafinil 50 mg this morning. Indication and side effects explained to patient. Patient is receptive with the plan. Correction: Modefinill 50mg daily. MOCA scheduled next week prior to ECT. 04/10:Laying in bed most of morning. Patient continues to report feeling depressed. He reports looking forward to ECT; pt stated, I think it will be a positive step to get ECT . denies SI/HI/VH/AH. Encouraged to get out of bed. Continue tx plan 04/11: Per nursing, pt did not get out of bed yesterday. Observed laying in bed this morning; encouraged to attend groups and shower. Patient continues to report feeling depressed. denies SI/HI/VH/AH. Encouraged to get out of bed. Continue tx plan. 04/12: continue current tx plan 04/13: stably depressed. PMR. start ECT tomorrow, otherwise continue current mgmt. NPO past MN. 04/14/25: got his first ECT treatment this afternoon. Patient slept for 6 hours, was medication compliant. However, this morning due to the delay of the ECT treatment, he was not happy about the delay into the afternoon. He appeared to be frustrated, irritable, and not cooperative with this provider I do not want to talk to anyone . I am done talking . I do not care when asked his last bowel movement. Per nursing, patient denies suicidal thoughts, other safety concerns. Reports he has no bowel movement x4 days. Medication this morning was held until after the ECT. He also was given citrate magnesium x1. Pending effect. 04/15: made bowel movement. ECT #2 tomorrow. no change in mood or presentation as of today. T/C increasing modafanil to 200 mg sometime next week. 04/16: completed ECT without incident. no FLOWERS today. no change in presentation otherwise. continue current mgmt. ECT #3 saturday. 04/17/2025: No changes. ECT # 3 Saturday04/19/202504/18: no changes 04/19: completed ECT #3 today. no FLOWERS, no change in presentation, no change in mood. continue current mgmt. T/C modafanil increase. 04/20: mood starting to improve. laughed, affect brighter and more flexible. ECT tomorrow, NPO after midnight. continue current mgmt otherwise. 04/21: irritable at afternoon ECT. short today. continue current mgmt. 04/22: not irritable, appears depressed, says mood is unchanged. ECT tomorrow. continue current mgmt. strongly consider increase in modafanil dosing. 04/23/2025: Patient seen ECT completed bilaterally. Patient with markedly poor ADLs almost catatonic like allowing himself to be covered in feces not showering or caring for himself. Change ECT to 0.25 would follow-up on response to bilateral treatment if to withdrawn would may be secondary to bilateral and might consider return to right unilateral. Wellbutrin lowered to 300 mg modafinil was started at 100 mg can consider increase to 150 mg targeting apathy lethargy. Patient started on lorazepam 1 mg p.o. t.i.d. had test doses and seemed significantly improved with more fluid speech and increase range of affect hold lorazepam night prior to ECT 04/24/25: Patient slept for 8 hours, no appetite issues. Denies SI/SIB/HI/AVH. Report anxiety a 2/10 and anxiety an 8/10 which he says he does not feel much different yet from ECT. He denies short term memory. He denies FLOWERS or tireness now but says shortly after ECT he had FLOWERS from yesterday which has been gone. He reports normal BM which laxative was held yesterday. Observed patient spent couple hours in dinning areas, eating out in activity room and spent time watching TV. Nursing also reports patient attended group in the art room as well. He also showered yesterday. He is visible, but quiet keep to self, flat affect, depressed mood. Slightly improvement compare to last visit that this provider saw him about 1-2 weeks ago. Ativan started yesterday which seem to have some effects. 04/25/25: Patient slept for 8 hours, compliant with medications, denies side effects. Deny feeling tired on Ativan. Per nursing patient have incident of incontinence of feces yesterday. Therefore Colace and MiraLax and senna has been held. Notes on to hold when has loose stools. Patient denies safety concerns. Reported the same anxiety and depression level. He is more in bed today compared to yesterday but was out for meals. Flat affect, fair eye contact, resting in room. Attended no groups. No changes in terms of mental status. May have ECT on Saturday. 04/26: in bed after ECT. flat, withdrawn, slowed, soft. states his mood remains the same as before, no better and no worse. agreeable to increase modafanil to 150 mg. no apparent cognitive or memory deficits. 04/27: perhaps less slowed than recently. hold ativan this afternoon and overnight. NPO past MN. continue bifrontal ECT in the morning. 04/28: faster and more flexible affect. feels he is improving. decrease ativan from 1 mg TID to 0.5 mg TID. otherwise continue current mgmt. Reason for continued inpatient stay Substantial Risk for: inability to function Time Spent With Patient Time: Total time managing care of this patient today ____ minutes.
[2025-04-29 07:00] VITALS: BMI 32.2
[2025-04-29 07:44] VITALS: BP 94/49; PULSE 65; RESP 16; TEMP 37.1; O2SAT 95
[2025-04-29] MEDS: Aspirin Enteric Coated 81 MG TABLET.DR PO (08:21)
[2025-04-29] MEDS: buPROPion HCl XL 300 MG TAB.ER.24H PO (08:21)
--- NOTE | 2025-04-29 11:40 | HO.PSYCHPN ---
Subjective Subjective Date of Service: 04/29/25 Reason For Visit: SI depression Interim History: in bed, reports mood continues to be improved. no questions or complaints, aware of ECT tomorrow. per staff, dep 5 anx 2. relaxed. more responsive. feeling better in mood. slept 8 hours. Mental Status Exam Mental Status Exam Narrative: Appearance: Casually dressed, unkempt, disheveled Behavior: Calm and cooperative, PMR Eye contact is fair Speech: soft, slowed, flattened prosody. Thought process logical and goal-directed Thought content: On treatment. Mood: feeling better Affect: more flexible, normo-intense SI: none expressed HI: none expressed VH/AH: none expressed Delusions: None expressed Insight/judgment: impaired Diagnostics Vital Signs (24Hr): Vital Signs - 24 hr 04/28/25 20:00 04/29/25 07:44 Temperature 98.6 F 98.8 F Pulse Rate 77 65 Respiratory Rate 16 16 Blood Pressure 105/63 94/49 L Pulse Oximetry 97 95 Oxygen Delivery Method Room Air Room Air BMI result Body Mass Index 32.2 Labs 04/23/25 10:35 04/23/25 10:35 Imaging Radiology Impressions: ITS Impressions Head CT 04/06/25 13:54 IMPRESSION: No acute intracranial hemorrhage. Bifrontal bitemporal lobes atrophy. Electronically signed by: Roque Guillen MD 04/06/2025 02:15 PM EDT Medications Medications Current Medications Acetaminophen (Acetaminophen 325 Mg Tablet) 650 mg PO Q6H PRN PRN Reason: Headache/Pain, Scale 1-10 Last Admin: 04/14/25 20:25 Dose: 650 mg Al Hydroxide/Mg Hydroxide (Magnesium Hydrox/Alum Hydrox 30 Ml Oral.Susp) 30 ml PO Q6H PRN PRN Reason: Heartburn/Nausea Aspirin (Aspirin Enteric Coated 81 Mg Tablet.) 81 mg PO DAILY [facility] Last Admin: 04/29/25 08:21 Dose: 81 mg Atorvastatin Calcium (Atorvastatin Calcium 20 Mg Tablet) 20 mg PO BEDTIME [facility] Last Admin: 04/28/25 21:18 Dose: 20 mg Bisacodyl (Bisacodyl 5 Mg Tablet.) 10 mg PO DAILY PRN PRN Reason: severe Constipation Last Admin: 04/20/25 08:57 Dose: 10 mg Bupropion HCl (Bupropion Hcl Xl 300 Mg Tab.Er.24h) 300 mg PO DAILY [facility] Last Admin: 04/29/25 08:21 Dose: 300 mg Docusate Sodium (Docusate Sodium 100 Mg Capsule) 100 mg PO BID PRN PRN Reason: constipation Hydroxyzine HCl (Hydroxyzine Hcl 25 Mg Tablet) 25 mg PO Q6H PRN PRN Reason: mild anxiety Last Admin: 03/26/25 23:24 Dose: 25 mg Lorazepam (Lorazepam 0.5 Mg Tablet) 0.5 mg PO TID [facility] Last Admin: 04/29/25 08:21 Dose: 0.5 mg Lurasidone HCl (Lurasidone Hcl 40 Mg Tablet) 40 mg PO DAILY@1700 [facility] Last Admin: 04/28/25 17:17 Dose: 40 mg Magnesium Hydroxide (Milk Of Magnesia 30 Ml Oral.Susp) 30 ml PO DAILY PRN PRN Reason: Constipation Last Admin: 04/17/25 10:24 Dose: 30 ml Modafinil (Modafinil 100 Mg Tablet) 150 mg PO DAILY [facility] Last Admin: 04/29/25 08:21 Dose: 150 mg Nicotine (Nicotine 21 Mg Patch.Td24) 21 mg TRANSDERMA DAILY PRN PRN Reason: nicotine craving Nicotine Polacrilex (Nicotine Polacrilex 2 Mg Gum) 2 mg BUCCAL Q2H PRN PRN Reason: Nicotine Cravings Olanzapine (Olanzapine 5 Mg Tablet) 5 mg PO BID PRN PRN Reason: agitation Polyethylene Glycol (Polyethylene Glycol 3350 17 Gm Powd.Pack) 17 gm PO DAILY PRN PRN Reason: constipation Senna (Sennosides 8.6 Mg Tablet) 17.2 mg PO BEDTIME PRN PRN Reason: Constipation Trazodone HCl (Trazodone Hcl 50 Mg Tablet) 50 mg PO BEDTIME MRX1 PRN PRN Reason: Insomnia Last Admin: 04/05/25 23:14 Dose: 50 mg Allergies Allergies Allergy/AdvReac Type Severity Reaction Status Date / Time pumpkin Allergy Unknown Unknown Verified 12/24/24 12:26 Assessment & Plan Assessment & Plan (1) Bipolar disorder: Status: Acute Code(s): F31.9 - Bipolar disorder, unspecified (2) JUVENTINO (acute kidney injury): Status: Acute Code(s): N17.9 - Acute kidney failure, unspecified (3) CVA (cerebral vascular accident): Status: Acute Code(s): I63.9 - Cerebral infarction, unspecified (4) Abnormal head CT: Status: Acute Code(s): R93.0 - Abnormal findings on diagnostic imaging of skull and head, not elsewhere classified Plan 03/27: feels latuda 120 has been helpful. however, remains depressed. add wellbutrin XL 150 daily for depression, plan to increase to 300 mg daily in 3 days. may also consider ECT due to lack of improvement despite numerous recent hospitalizations + lethality of suicide attempts + recent self-abnegating behaviors. 03/28: no change in presentation, no requests or complaints. started wellbutrin 150 today. continue current mgmt 03/29/25: Slept well, no issues with appetite. Observed out on the unit, attended groups, engaging. Reports depression and 03/21, denies anxiety. Constricted affect, congruent with mood. Denies safety concerns. Compliant with medications. Denies side effects from Wellbutrin. Continue to encourage groups. 03/30/25: Patient slept for 6 hours, was medication compliant. He attended 2 groups yesterday, however today he is more isolated, in bed a lot more time, declines a couple groups. Reports depressed but no anxiety, flat affect, depressed, but cooperative during one-to-one assessment. He is receptive with the plan of Wellbutrin increased up to 300 mg for depression. Reports passive SI, denies plan or intention. Denies other safety concerns. Encourage patient to go to groups and shower daily. Increase Wellbutrin XL to 300 mg daily for depression. He reported that he has bipolar type II. 03/31: Laying in bed. keeping to self. showered. patient reports feeling depressed ; pt stated, I'm not having a good day. I don't want to do anything . flat affect. denies SI/HI/VH/AH. Per nursing, slept 8 hours. encouraged to attend groups. continue current tx plan. 04/01/25: Patient slept for 8 hours, poor meal intake yesterday but was medication compliant. Denies side effects. When asked about if he has poor appetite as he ate only 50 of breakfast, and 25 for lunch and not eating dinner, he said because I did not do the menu, so I got what I do not like . He shower yesterday, continued to reports depression 03/21. Denied anxiety. He does not feel any difference from Wellbutrin 150 when and when it was increased up to 300 mg. Denies SI/SIB/HI/AVH, isolative self, he plans to attend groups today. This provider spoke with patient in length regarding medication trials. Per his report, has been trying so many antidepressants they just do not work, and continued to be depressed. Some of them are Zoloft, Paxil, Effexor, Celexa, Prozac, Cymbalta, Lexapro. He also having history of taking Zyprexa more than 20 years ago due to hearing voices. Then the voices was calm. He never has a take it again after. History of Abilify but not sure if it is working as he can not recall. Regarding ADLs: He said that he had food at the long term twice a day, but he is not showering for many days despite the fact that staff asked him to do so I just do not care about being clean . Reports very low energy, low motivation, been increased suicidal thoughts and depression. He used to love music and reading but not interested in doing anything like that anymore. Reported that he had gastric sleeve surgery back in August 2023 which he lost 230 lb. He weight 447 lb prior to the surgery. He identified that after the surgery he has been more depressed slowly over months. There was a time that he wanted to starve myself so I can when asked is that you that he has stopped eating at home. He also identified that he feel more depressed after surgery as he is not able to over eating like he did before. Family mental health illnesses: Reports that who both of his parents was depressed. Mom 11 years ago. 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 History of ECTs: Reports he had history of ECTs in 2010 when he was at in [facility].He felt worse after the treatment everything seems like a dream . He clarified that immediately after the treatment he feel that way which could be a side effects of ECT but not permanent. Educate patient on possible side effects ECTs. Patient denies having seizure during ECTs treatment, no seizure history no cardiac conditions/disease history. Reports history of hypertension, but not anymore. He also has been admitted to different hospitals for psychiatric admissions in the past couple of months. Reports staying at [facility] in December for a month. [facility] hospital in the area names [facility]) in October for another month. Per email from his OP team- clinical director at [facility], they also express concerns of patient's conditions. It is noted that their concerns are very consistent with patient' report here on the unit. He also has been admitted to different hospitals for psychiatric admissions in the past couple of months. Reports staying at [facility] in December for a month. [facility] hospital in the area names [facility]) in October for another month. Per email from his OP team- clinical director at [facility], they also express concerns of patient's conditions. It is noted that their concerns are very consistent with patient' report here on the unit. Alfredito has been in and out on inpatient level of care since October of this year, I believe every month, for a majority of the time. He was recently discharged from [facility] after a 1 month stay and within two hours of returning home wanted to return to the hospital, saying he was unwell, and within one day was sectioned by [facility], which is how he ended up with you now. He has been coming home and intentionally starving himself, even not eating for up to 1 week. We have known Alfredito for years and since this started in October, we have seen no significant improvement in his mental health or a return to baseline. In fact, we are observing his case as consistent with failure to thrive. We have been asking for him to be inpatient at [facility] or with you at [facility] for some time in order for him to be potentially considered for ECT level of treatment, if deemed appropriate. Multiple medication trials failture to target depressive symptoms. He will be a good candidate to get trial ECT treatment in combination with current medication regimens. Patient also agrees with the plan. We would start the treatment as soon as possible. Will discuss the case with in house psychiatrist-Dr. Ward to prepare for ECT treatment. Hope to start early next week. 04/02: Laying in bed. keeping to self. Patient continues to report feeling depressed; pt stated, I feel about the same. I spoke with the other provider and agreed to do ECT . He reports sleeping well. denies SI/HI/VH/AH. Encouraged to attend groups and shower. Continue current tx plan. 04/03: no changes- just started wellbutrin 04/04: no changes 04/05/25: report anxiety a 2-310 but still 03/21 for depression. No change since started Wellbutrin. He agrees to get Wellbutrin up to 450mg daily for depression. Isolative in room, staring up to the ceiling. Discuss with patient of option to start on Intuniv for severe depression. Patient declines it at this current time but agree to see Welbutrin increased would be helpful. He agrees with ECT. Encourage groups, he says he was at art group out to dinning area but there are too much so he went back to his room. Report not many groups offered over the weekends. 04/06/25: Patient slept for 6 hours, have a sleep study done last night. Reported that he did not sleep well. Appetite is okay. Mood is depressed 03/21, denies anxiety today. Denies suicidal thoughts, but reports he has passive SI yesterday intrusive, just do not Wanna live anymore . Denies hallucinations. Address with patient of why he having bowel movement in the shower. He said it is just one episode. Reports he feel constipated. Agree with Colace. He also inform regarding the ECT which was approved by the insurance. He compliant with medication, however reports he has not feeling any difference in terms of depression at since started on Wellbutrin. Encourage groups attendance. Observe him later on during the day reading at a table in dining area. Colace 100mg BID for constipation. ECT consult placed: Patient may be seen by tomorrow by Dr. Ward. Procedure done preparing for the ECT: Head CT scan negative, EKG normal sinus rhythm, Incomplete right bundle branch block. Borderline ECG_ no change when compare to previous EKG. Unremarkable CBC with diff. 04/07/25: Per hospitalist note: ECT risk stratification Patient without previous problems with anesthesia, has previously undergone ECT RCRI 0 points, no further cardiac workup or treatment indicated at this time EKG showed QT interval WNL, no evidence of ischemic changes Based on stated PMH, HPI, and physical exam, there are no apparent medical contraindications to the planned procedure. Patient is complaining of pelvic discomfort and constipation. We will add therapy with Senokot, MiraLax and obtain urinalysis to assess for urinary tract infection. Continue treatment with atorvastatin and aspirin for history of stroke and hyperlipidemia. 04/07/25: Patient compliant with medication, reports due to the pain abdominal, he could not sleep well last night. Continued to reports depressions 8/10, anxiety 4/10 today related to the pain. Denies suicidal thoughts or voices, isolated. Shower yesterday. Review with patient test need to be done prior to having ECT. Patient met with Dr. Ward and hospitalist for ECT clearance. Due to the pain, constipated, more laxative ordered today. Also UA other by hospitalist to rule out any infection. He is flat, low energy, low motivation, withdrawal, in room mostly, but come out to other rooms to talk to the providers 04/08/25: Patient slept for 8 hours, compliant with medications, denies side effect. Met with him in his room, reported that he slept better last night, having good bowel movement, denies diarrhea is. Informed him regarding the labs work/and UA that was negative to rule out UTI. Denies pain. Explained to patient regarding pre ECT procedures/test to prepare for the day that he going to start. We will start ECT on Saturday. Per Dr. Ward, we will taper down on Latuda, start him on Modafinil low dose to help with severe depression. Continued to reports moderate to severe depression. Denies suicidal thoughts or hallucinations. 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 He denied any significant or excessive drug exposure. I do not find any focal lesion, acute or chronic, suggestive of stroke. There was no contraindication to treatment with ECT. Otherwise treatment of this condition is supportive, symptomatic and conservative Taper down on Latuda from 120 down to 100 mg daily at 17:00 for mood. Start on Modefinil 100ng daily for severe depression, low energy, poor concentration, poor motivation. ECT will be scheduled next week on Saturday. We will received treatment for Saturday/Saturday and Saturday. 04/09/25: Patient denies pain, normal bowel movement, slept well and compliant with medications. Denies side effects. Denies suicidal thoughts or hallucinations but reports mild on anxiety and moderate to severe depression. Patient appeared to be disheveled. Encourage patient to be out of bed in attended to groups included OT groups which observe he is visible in day room after the conversation. The OT will do the [place] for pre ECT next week on Saturday prior the ECT. He started modafinil 50 mg this morning. Indication and side effects explained to patient. Patient is receptive with the plan. Correction: Modefinill 50mg daily. MOCA scheduled next week prior to ECT. 04/10:Laying in bed most of morning. Patient continues to report feeling depressed. He reports looking forward to ECT; pt stated, I think it will be a positive step to get ECT . denies SI/HI/VH/AH. Encouraged to get out of bed. Continue tx plan 04/11: Per nursing, pt did not get out of bed yesterday. Observed laying in bed this morning; encouraged to attend groups and shower. Patient continues to report feeling depressed. denies SI/HI/VH/AH. Encouraged to get out of bed. Continue tx plan. 04/12: continue current tx plan 04/13: stably depressed. PMR. start ECT tomorrow, otherwise continue current mgmt. NPO past MN. 04/14/25: got his first ECT treatment this afternoon. Patient slept for 6 hours, was medication compliant. However, this morning due to the delay of the ECT treatment, he was not happy about the delay into the afternoon. He appeared to be frustrated, irritable, and not cooperative with this provider I do not want to talk to anyone . I am done talking . I do not care when asked his last bowel movement. Per nursing, patient denies suicidal thoughts, other safety concerns. Reports he has no bowel movement x4 days. Medication this morning was held until after the ECT. He also was given citrate magnesium x1. Pending effect. 04/15: made bowel movement. ECT #2 tomorrow. no change in mood or presentation as of today. T/C increasing modafanil to 200 mg sometime next week. 04/16: completed ECT without incident. no FLOWERS today. no change in presentation otherwise. continue current mgmt. ECT #3 saturday. 04/17/2025: No changes. ECT # 3 Saturday04/19/202504/18: no changes 04/19: completed ECT #3 today. no FLOWERS, no change in presentation, no change in mood. continue current mgmt. T/C modafanil increase. 04/20: mood starting to improve. laughed, affect brighter and more flexible. ECT tomorrow, NPO after midnight. continue current mgmt otherwise. 04/21: irritable at afternoon ECT. short today. continue current mgmt. 04/22: not irritable, appears depressed, says mood is unchanged. ECT tomorrow. continue current mgmt. strongly consider increase in modafanil dosing. 04/23/2025: Patient seen ECT completed bilaterally. Patient with markedly poor ADLs almost catatonic like allowing himself to be covered in feces not showering or caring for himself. Change ECT to 0.25 would follow-up on response to bilateral treatment if to withdrawn would may be secondary to bilateral and might consider return to right unilateral. Wellbutrin lowered to 300 mg modafinil was started at 100 mg can consider increase to 150 mg targeting apathy lethargy. Patient started on lorazepam 1 mg p.o. t.i.d. had test doses and seemed significantly improved with more fluid speech and increase range of affect hold lorazepam night prior to ECT 04/24/25: Patient slept for 8 hours, no appetite issues. Denies SI/SIB/HI/AVH. Report anxiety a 2/10 and anxiety an 8/10 which he says he does not feel much different yet from ECT. He denies short term memory. He denies FLOWERS or tireness now but says shortly after ECT he had FLOWERS from yesterday which has been gone. He reports normal BM which laxative was held yesterday. Observed patient spent couple hours in dinning areas, eating out in activity room and spent time watching TV. Nursing also reports patient attended group in the art room as well. He also showered yesterday. He is visible, but quiet keep to self, flat affect, depressed mood. Slightly improvement compare to last visit that this provider saw him about 1-2 weeks ago. Ativan started yesterday which seem to have some effects. 04/25/25: Patient slept for 8 hours, compliant with medications, denies side effects. Deny feeling tired on Ativan. Per nursing patient have incident of incontinence of feces yesterday. Therefore Colace and MiraLax and senna has been held. Notes on to hold when has loose stools. Patient denies safety concerns. Reported the same anxiety and depression level. He is more in bed today compared to yesterday but was out for meals. Flat affect, fair eye contact, resting in room. Attended no groups. No changes in terms of mental status. May have ECT on Saturday. 04/26: in bed after ECT. flat, withdrawn, slowed, soft. states his mood remains the same as before, no better and no worse. agreeable to increase modafanil to 150 mg. no apparent cognitive or memory deficits. 04/27: perhaps less slowed than recently. hold ativan this afternoon and overnight. NPO past MN. continue bifrontal ECT in the morning. 04/28: faster and more flexible affect. feels he is improving. decrease ativan from 1 mg TID to 0.5 mg TID. otherwise continue current mgmt. 04/29: as for yesterday. continue current mgmt. hold ativan after 3, NPO after MN. ECT in the morning. Reason for continued inpatient stay Substantial Risk for: harm to self, inability to function and rapid decompensation Time Spent With Patient Time: Total time managing care of this patient today __25__ minutes.
[2025-04-29 19:35] VITALS: BP 105/58; PULSE 74; RESP 16; TEMP 36.4; O2SAT 97
[2025-04-30] VITALS (10 sets, daily range): BP systolic 88–173; BP diastolic 49–100; PULSE 65–99; RESP 16–20; TEMP 36.3–37.1; O2SAT 97–100
--- NOTE | 2025-04-30 08:51 | HO.ANESPROP2 ---
[facility] Active Problems Active Problems: All Active Problems CVA (cerebral vascular accident) (Acute) Abnormal head CT (Acute) JUVENTINO (acute kidney injury) (Acute) Depression (Acute) Bipolar disorder (Acute) H/O gastric sleeve (Acute) Past Medical History Medical History Obesity LUIS (obstructive sleep apnea) HLD (hyperlipidemia) HTN (hypertension) CVA (cerebral vascular accident) Functional capacity: independent ambulation Family History Family history of problems with anesthesia: No Surgical History History of Problems with Anesthesia: No Social History Social History Household Members: Other Household Members Other:: transitional housing Housing: Other Do you presently have visiting nurse or other home services: No Patient Tobacco Use Status: Never used Tobacco Second Hand Smoke Exposure: Yes Currently Displaying Signs/Symptoms of Drug Intoxication Withdrawal: No Have you been hit, kicked, punched, or otherwise hurt by someone within the past year? If so, by whom?: No Do you feel safe in your current relationship?: No Current Relationship Is there a partner from a previous relationship who is making you feel unsafe now?: No Are you made to feel afraid or neglected: No Advance Directives: No Advance Directives Information Provided: No Do you have thoughts of harming others: None Do you have a plan to hurt others: No Plan Recently lost weight without trying: No Eating poorly because of decreased appetite: No Nutrition Risks: No Nutritional Risk Poor oral hygiene: Yes (very dry scalp) service: No Sexual orientation: Straight/Heterosexual Meds Allergies Allergy/AdvReac Type Severity Reaction Status Date / Time pumpkin Allergy Unknown Unknown Verified 12/24/24 12:26 Active Medications: Current Medications Acetaminophen (Acetaminophen 325 Mg Tablet) 650 mg PO Q6H PRN PRN Reason: Headache/Pain, Scale 1-10 Last Admin: 04/14/25 20:25 Dose: 650 mg Al Hydroxide/Mg Hydroxide (Magnesium Hydrox/Alum Hydrox 30 Ml Oral.Susp) 30 ml PO Q6H PRN PRN Reason: Heartburn/Nausea Aspirin (Aspirin Enteric Coated 81 Mg Tablet.Dr) 81 mg PO DAILY JENNIFER Last Admin: 04/29/25 08:21 Dose: 81 mg Atorvastatin Calcium (Atorvastatin Calcium 20 Mg Tablet) 20 mg PO BEDTIME JENNIFER Last Admin: 04/29/25 20:48 Dose: 20 mg Bisacodyl (Bisacodyl 5 Mg Tablet.Dr) 10 mg PO DAILY PRN PRN Reason: severe Constipation Last Admin: 04/20/25 08:57 Dose: 10 mg Bupropion HCl (Bupropion Hcl Xl 300 Mg Tab.Er.24h) 300 mg PO DAILY [facility] Last Admin: 04/29/25 08:21 Dose: 300 mg Docusate Sodium (Docusate Sodium 100 Mg Capsule) 100 mg PO BID PRN PRN Reason: constipation Hydroxyzine HCl (Hydroxyzine Hcl 25 Mg Tablet) 25 mg PO Q6H PRN PRN Reason: mild anxiety Last Admin: 03/26/25 23:24 Dose: 25 mg Lactated Ringer's (Lr) 1,000 mls @ 50 mls/hr IVCONT .Q20H JENNIFER Lorazepam (Lorazepam 0.5 Mg Tablet) 0.5 mg PO TID [facility] On Hold: 04/29/25 15:01 Last Admin: 04/29/25 18:02 Dose: Not Given Lurasidone HCl (Lurasidone Hcl 40 Mg Tablet) 40 mg PO DAILY@1700 JENNIFER Last Admin: 04/29/25 18:01 Dose: 40 mg Magnesium Hydroxide (Milk Of Magnesia 30 Ml Oral.Susp) 30 ml PO DAILY PRN PRN Reason: Constipation Last Admin: 04/17/25 10:24 Dose: 30 ml Modafinil (Modafinil 100 Mg Tablet) 150 mg PO DAILY [facility] Last Admin: 04/29/25 08:21 Dose: 150 mg Naloxone HCl (Naloxone Hcl 0.4 Mg/Ml Vial) 0.04 mg IVPUSH Q5M PRN PRN Reason: Excessive sedation or RR < 8 Nicotine (Nicotine 21 Mg Patch.Td24) 21 mg TRANSDERMA DAILY PRN PRN Reason: nicotine craving Nicotine Polacrilex (Nicotine Polacrilex 2 Mg Gum) 2 mg BUCCAL Q2H PRN PRN Reason: Nicotine Cravings Olanzapine (Olanzapine 5 Mg Tablet) 5 mg PO BID PRN PRN Reason: agitation Ondansetron HCl (Ondansetron Odt 8 Mg Tab.Rapdis) 8 mg TRANSLINGU Q8H PRN PRN Reason: Nausea and Vomiting Polyethylene Glycol (Polyethylene Glycol 3350 17 Gm Powd.Pack) 17 gm PO DAILY PRN PRN Reason: constipation Senna (Sennosides 8.6 Mg Tablet) 17.2 mg PO BEDTIME PRN PRN Reason: Constipation Trazodone HCl (Trazodone Hcl 50 Mg Tablet) 50 mg PO BEDTIME MRX1 PRN PRN Reason: Insomnia Last Admin: 04/05/25 23:14 Dose: 50 mg Exam Height,Weight and Vital Signs: Height 5 ft 9 in Weight 99.065 kg Last Vital Signs Temp 97.3 F 04/30/25 08:13 Pulse 68 04/30/25 08:13 Resp 19 04/30/25 08:13 BP 123/74 04/30/25 08:13 Pulse Ox 97 04/30/25 08:13 O2 Del Method Room Air 04/30/25 08:13 O2 Flow Rate 6 04/14/25 13:46 Pertinent Lab Results Pertinent Lab Results: Laboratory Tests 03/26/25 03/26/25 03/27/25 14:42 15:45 08:31 WBC 9.9 RBC 4.34 L Hgb 12.8 L Hct 38.3 L MCV 88.2 MCH 29.5 MCHC 33.4 RDW 14.6 Plt Count 191 MPV 10.6 Immature Gran % (Auto) 0.2 Neut % (Auto) 61.2 Lymph % (Auto) 28.9 [place] % (Auto) 8.8 Eos % (Auto) 0.7 Baso % (Auto) 0.2 Lymph # (Auto) 2.9 [place] # (Auto) 0.9 Eos # (Auto) 0.1 Baso # (Auto) 0.0 Abs Immat Gran (auto) 0.02 Absolute Neuts (auto) 6.1 Absolute Nucleated RBC 0.000 Nucleated RBC % (auto) 0.0 Sodium 138 143 Potassium 4.4 4.2 Chloride 103 106 Carbon Dioxide 26 23 Anion Gap 13 18 BUN 18 H 16 Creatinine 1.55 H 1.19 Estim Creat Clear Calc 65.6 86.0 Estimated GFR 48 > 60 POC Glucose Random Glucose 93 78 Estimat Average Glucose 91 Hemoglobin A1c % 4.8 Calcium 9.0 9.0 Total Bilirubin 1.1 H AST 28 ALT 11 Alkaline Phosphatase 62 B-Natriuretic Peptide Total Protein 6.0 L Albumin 3.7 Triglycerides 66 Cholesterol 153 LDL Cholesterol, Calc 92 HDL Cholesterol 48 TSH 3.31 Free T4 1.09 Urine Color Yellow Urine Appearance Cloudy Urine pH 5.5 Ur Specific [place] 1.015 Urine Protein 30 (1+) H Urine Glucose (UA) Negative Urine Ketones Negative Urine Blood Negative Urine Nitrite Negative Ur Leukocyte Esterase Trace H Urine RBC 0-2 Urine WBC 0-5 Ur Squamous Epith Cells 6-10 Urine Bacteria None Seen Hyaline Casts >20 Salicylates < 5.0 L Urine Opiates Screen Not Detected Ur Buprenorphine Scrn Not Detected Ur Oxycodone Screen Not Detected Urine Methadone Screen Not Detected Urine Fentanyl Screen Not Detected Acetaminophen < 3 Ur Barbiturates Screen Not Detected Ur Phencyclidine Scrn Not Detected Ur Amphetamines Screen Not Detected U Benzodiazepines Scrn Not Detected Urine Cocaine Screen Not Detected U Marijuana (THC) Screen Not Detected Ethyl Alcohol < 10 T.pallidum Ab (EIA) Influenza Type A (PCR) NEGATIVE Influenza Type B (PCR) NEGATIVE RSV RNA Qual (PCR) NEGATIVE SARS-CoV-2 RNA (RT-PCR) NEGATIVE 04/06/25 04/07/25 04/07/25 14:28 08:07 21:30 WBC 9.1 RBC 4.59 L Hgb 13.4 L Hct 40.9 L MCV 89.1 MCH 29.2 MCHC 32.8 RDW 14.0 Plt Count 303 D MPV 10.6 Immature Gran % (Auto) 0.4 Neut % (Auto) 58.1 Lymph % (Auto) 32.8 [place] % (Auto) 6.4 Eos % (Auto) 2.1 Baso % (Auto) 0.2 Lymph # (Auto) 3.0 [place] # (Auto) 0.6 Eos # (Auto) 0.2 Baso # (Auto) 0.0 Abs Immat Gran (auto) 0.04 H Absolute Neuts (auto) 5.3 Absolute Nucleated RBC 0.000 Nucleated RBC % (auto) 0.0 Sodium 143 Potassium 4.6 Chloride 105 Carbon Dioxide 28 Anion Gap 15 BUN 17 H Creatinine 1.35 Estim Creat Clear Calc 75.5 Estimated GFR 56 POC Glucose Random Glucose 96 Estimat Average Glucose Hemoglobin A1c % Calcium 9.4 Total Bilirubin 0.6 AST 26 ALT 23 Alkaline Phosphatase 66 B-Natriuretic Peptide Total Protein 6.4 L Albumin 3.9 Triglycerides Cholesterol LDL Cholesterol, Calc HDL Cholesterol TSH 2.42 Free T4 Urine Color Yellow Urine Appearance Clear Urine pH 6.0 Ur Specific [place] 1.010 Urine Protein Negative Urine Glucose (UA) Negative Urine Ketones Negative Urine Blood Negative Urine Nitrite Negative Ur Leukocyte Esterase Negative Urine RBC Urine WBC Ur Squamous Epith Cells Urine Bacteria Hyaline Casts Salicylates Urine Opiates Screen Ur Buprenorphine Scrn Ur Oxycodone Screen Urine Methadone Screen Urine Fentanyl Screen Acetaminophen Ur Barbiturates Screen Ur Phencyclidine Scrn Ur Amphetamines Screen U Benzodiazepines Scrn Urine Cocaine Screen U Marijuana (THC) Screen Ethyl Alcohol T.pallidum Ab (EIA) Influenza Type A (PCR) Influenza Type B (PCR) RSV RNA Qual (PCR) SARS-CoV-2 RNA (RT-PCR) 04/10/25 04/20/25 04/23/25 09:18 20:47 10:35 WBC 8.6 RBC 4.73 Hgb 14.0 Hct 41.5 L MCV 87.7 MCH 29.6 MCHC 33.7 RDW 13.2 Plt Count 233 MPV 10.3 Immature Gran % (Auto) 0.5 H Neut % (Auto) 58.3 Lymph % (Auto) 33.4 [place] % (Auto) 5.9 Eos % (Auto) 1.6 Baso % (Auto) 0.3 Lymph # (Auto) 2.9 [place] # (Auto) 0.5 Eos # (Auto) 0.1 Baso # (Auto) 0.0 Abs Immat Gran (auto) 0.04 H Absolute Neuts (auto) 5.0 Absolute Nucleated RBC 0.000 Nucleated RBC % (auto) 0.0 Sodium 139 Potassium 4.6 Chloride 105 Carbon Dioxide 27 Anion Gap 12 BUN 21 H Creatinine 1.40 Estim Creat Clear Calc 73.3 Estimated GFR 54 POC Glucose 102 Random Glucose 87 Estimat Average Glucose Hemoglobin A1c % Calcium 8.8 D Total Bilirubin 0.8 AST 20 ALT 17 Alkaline Phosphatase 65 B-Natriuretic Peptide < 10 Total Protein 6.0 L Albumin 3.6 Triglycerides Cholesterol LDL Cholesterol, Calc HDL Cholesterol TSH Free T4 Urine Color Urine Appearance Urine pH Ur Specific [place] Urine Protein Urine Glucose (UA) Urine Ketones Urine Blood Urine Nitrite Ur Leukocyte Esterase Urine RBC Urine WBC Ur Squamous Epith Cells Urine Bacteria Hyaline Casts Salicylates Urine Opiates Screen Ur Buprenorphine Scrn Ur Oxycodone Screen Urine Methadone Screen Urine Fentanyl Screen Acetaminophen Ur Barbiturates Screen Ur Phencyclidine Scrn Ur Amphetamines Screen U Benzodiazepines Scrn Urine Cocaine Screen U Marijuana (THC) Screen Ethyl Alcohol T.pallidum Ab (EIA) Nonreactive Influenza Type A (PCR) Influenza Type B (PCR) RSV RNA Qual (PCR) SARS-CoV-2 RNA (RT-PCR) Airway Mallampati Class: II TM Dist: >3cm Neck ROM: Full Partial: Upper Heart: rrr Lungs: cta Assessment and Plan Assessment Anesthesia Assessment: Anesthesia Plan Discussed and Chart Reviewed Final Anesthetic Review Family History of Problems with Anesthesia: No History of Problems with Anesthesia: No NPO: Yes ASA Class: III Final Preanesthetic Review: No Changes in Pt Med Stat, Meds/Allgs Chart Reviewed and Consent Obtained/Reviewed Patient Risk: Intermediate Procedure Risk: Intermediate Anesthetic Plan Anesthetic Plan: GA Disposition: Standard PACU
--- NOTE | 2025-04-30 09:48 | MHC.SHP ---
Pre-Procedural Eval Section A - 24 Hr Update-Section A only Date of Service: 04/30/25 The patient is an INPATIENT: Yes Changes since office visit: Yes Patient answered all questions; No Cold of Flu in the past 2 weeks, No New Medical Problems and No Changes in Medication The patient has been examined within 24 hours of the surgical procedure. The History & Physical has been completed within 30 days and I have reviewed it.: Yes Section B - Complete if H&P > 30 days Chief Complaint: SI depression Allergies: Allergies Allergy/AdvReac Type Severity Reaction Status Date / Time pumpkin Allergy Unknown Unknown Verified 12/24/24 12:26 Plan I have reviewed the history and physical and performed a pertinent physical examination on my patient. No changes have occurred unless specified. Time Spent With Patient Time: Total time managing care of this patient today ____ minutes.
--- NOTE | 2025-04-30 10:01 | HO.ECTPROC ---
ECT Procedure Note Diagnosis/Treatment Date of Service: 04/30/25 Diagnosis: Bipolar disorder Previous ECT Date: 04/28/25 Current Treatment Number: 8 Treatment: Series Interval Clinical Notes: Patient with some improvement noted continues with some psychomotor retardation noted prior to exam Time: Total time managing care of this patient today ____ minutes. ECT Settings Device: THYMATRON DGx Electrode Placement: Bifrontal Program/Pulse Width: 0.25 Energy Percent: 75 Seizure Duration By EEG (in seconds): 45 Medications Administration General Anesthetic: Etomidate (18) Muscle Relaxant: Succinylcholine (100) Ancillary Medications Analgesics: Torodol - Post ECT (30) Miscillaneous Medications: Propofol (30) Airway Management Airway Management: Bag Mask Ventilation Treatment Recommendations No Changes Recommended: No change Notes: recommended again to have midline due to difficulty establishing IV access at each treatment Pt Tolerated Procedure w/o Issue: Yes
[2025-04-30] MEDS: Aspirin Enteric Coated 81 MG TABLET.DR PO (10:57)
[2025-04-30] MEDS: buPROPion HCl XL 300 MG TAB.ER.24H PO (10:57)
--- NOTE | 2025-04-30 14:24 | P.PNPSI_ITS ---
Subjective Subjective Date of Service: 04/30/25 Reason For Visit: SI depression Interim History: mood remains improved. agreeable to increase modafanil to 200 tomorrow and to DC ativan on saturday morning. per staff, dep 7 anx 2. slept well. some PAUL. Mental Status Exam Mental Status Exam Narrative: Appearance: Casually dressed, unkempt, disheveled Behavior: Calm and cooperative, PMR Eye contact is fair Speech: soft, slowed, flattened prosody. Thought process logical and goal-directed Thought content: On treatment. Mood: feeling better Affect: constricted, normo-intense SI: none expressed HI: none expressed VH/AH: none expressed Delusions: None expressed Insight/judgment: impaired Diagnostics Vital Signs (24Hr): Vital Signs - 24 hr 04/29/25 19:35 04/30/25 07:44 04/30/25 08:13 Temperature 97.6 F 97.8 F 97.3 F Pulse Rate 74 65 68 Respiratory Rate 16 18 19 Blood Pressure 105/58 L 117/63 123/74 Pulse Oximetry 97 99 97 Oxygen Delivery Method Room Air Room Air Room Air Oxygen Flow Rate 04/30/25 10:07 04/30/25 10:12 04/30/25 10:17 Temperature 98.3 F Pulse Rate 99 96 91 Respiratory Rate 16 20 20 Blood Pressure 173/95 H 164/97 H 99/78 Pulse Oximetry 100 99 97 Oxygen Delivery Method Nasal Cannula with ETCO2 Nasal Cannula with ETCO2 Nasal Cannula with ETCO2 Oxygen Flow Rate 2 2 2 04/30/25 10:22 04/30/25 10:38 04/30/25 10:43 Temperature 97.4 F 97.9 F Pulse Rate 93 92 76 Respiratory Rate 20 18 18 Blood Pressure 157/100 H 159/93 H 137/93 H Pulse Oximetry 98 99 99 Oxygen Delivery Method Room Air Room Air Room Air Oxygen Flow Rate BMI result Body Mass Index 32.2 Labs 04/23/25 10:35 04/23/25 10:35 Imaging Radiology Impressions: ITS Impressions Head CT 04/06/25 13:54 IMPRESSION: No acute intracranial hemorrhage. Bifrontal bitemporal lobes atrophy. Electronically signed by: Roque Guillen MD 04/06/2025 02:15 PM EDT Medications Medications Current Medications Acetaminophen (Acetaminophen 325 Mg Tablet) 650 mg PO Q6H PRN PRN Reason: Headache/Pain, Scale 1-10 Last Admin: 04/14/25 20:25 Dose: 650 mg Al Hydroxide/Mg Hydroxide (Magnesium Hydrox/Alum Hydrox 30 Ml Oral.Susp) 30 ml PO Q6H PRN PRN Reason: Heartburn/Nausea Aspirin (Aspirin Enteric Coated 81 Mg Tablet.) 81 mg PO DAILY [facility] Last Admin: 04/30/25 10:57 Dose: 81 mg Atorvastatin Calcium (Atorvastatin Calcium 20 Mg Tablet) 20 mg PO BEDTIME [facility] Last Admin: 04/29/25 20:48 Dose: 20 mg Bisacodyl (Bisacodyl 5 Mg Tablet.) 10 mg PO DAILY PRN PRN Reason: severe Constipation Last Admin: 04/20/25 08:57 Dose: 10 mg Bupropion HCl (Bupropion Hcl Xl 300 Mg Tab.Er.24h) 300 mg PO DAILY [facility] Last Admin: 04/30/25 10:57 Dose: 300 mg Docusate Sodium (Docusate Sodium 100 Mg Capsule) 100 mg PO BID PRN PRN Reason: constipation Hydroxyzine HCl (Hydroxyzine Hcl 25 Mg Tablet) 25 mg PO Q6H PRN PRN Reason: mild anxiety Last Admin: 03/26/25 23:24 Dose: 25 mg Lorazepam (Lorazepam 0.5 Mg Tablet) 0.5 mg PO TID [facility] Stop: 05/02/25 09:01 Last Admin: 04/30/25 14:00 Dose: 0.5 mg Lurasidone HCl (Lurasidone Hcl 40 Mg Tablet) 40 mg PO DAILY@1700 [facility] Last Admin: 04/29/25 18:01 Dose: 40 mg Magnesium Hydroxide (Milk Of Magnesia 30 Ml Oral.Susp) 30 ml PO DAILY PRN PRN Reason: Constipation Last Admin: 04/17/25 10:24 Dose: 30 ml Modafinil (Modafinil 100 Mg Tablet) 200 mg PO DAILY [facility] Naloxone HCl (Naloxone Hcl 0.4 Mg/Ml Vial) 0.04 mg IVPUSH Q5M PRN PRN Reason: Excessive sedation or RR < 8 Nicotine (Nicotine 21 Mg Patch.Td24) 21 mg TRANSDERMA DAILY PRN PRN Reason: nicotine craving Nicotine Polacrilex (Nicotine Polacrilex 2 Mg Gum) 2 mg BUCCAL Q2H PRN PRN Reason: Nicotine Cravings Olanzapine (Olanzapine 5 Mg Tablet) 5 mg PO BID PRN PRN Reason: agitation Ondansetron HCl (Ondansetron Odt 8 Mg Tab.Rapdis) 8 mg TRANSLINGU Q8H PRN PRN Reason: Nausea and Vomiting Polyethylene Glycol (Polyethylene Glycol 3350 17 Gm Powd.Pack) 17 gm PO DAILY PRN PRN Reason: constipation Senna (Sennosides 8.6 Mg Tablet) 17.2 mg PO BEDTIME PRN PRN Reason: Constipation Trazodone HCl (Trazodone Hcl 50 Mg Tablet) 50 mg PO BEDTIME MRX1 PRN PRN Reason: Insomnia Last Admin: 04/05/25 23:14 Dose: 50 mg Allergies Allergies Allergy/AdvReac Type Severity Reaction Status Date / Time pumpkin Allergy Unknown Unknown Verified 12/24/24 12:26 Assessment & Plan Assessment & Plan (1) Bipolar disorder: Status: Acute Code(s): F31.9 - Bipolar disorder, unspecified (2) JUVENTINO (acute kidney injury): Status: Acute Code(s): N17.9 - Acute kidney failure, unspecified (3) CVA (cerebral vascular accident): Status: Acute Code(s): I63.9 - Cerebral infarction, unspecified (4) Abnormal head CT: Status: Acute Code(s): R93.0 - Abnormal findings on diagnostic imaging of skull and head, not elsewhere classified Plan 03/27: feels latuda 120 has been helpful. however, remains depressed. add wellbutrin XL 150 daily for depression, plan to increase to 300 mg daily in 3 days. may also consider ECT due to lack of improvement despite numerous recent hospitalizations + lethality of suicide attempts + recent self-abnegating behaviors. 03/28: no change in presentation, no requests or complaints. started wellbutrin 150 today. continue current mgmt 03/29/25: Slept well, no issues with appetite. Observed out on the unit, attended groups, engaging. Reports depression and 03/21, denies anxiety. Constricted affect, congruent with mood. Denies safety concerns. Compliant with medications. Denies side effects from Wellbutrin. Continue to encourage groups. 03/30/25: Patient slept for 6 hours, was medication compliant. He attended 2 groups yesterday, however today he is more isolated, in bed a lot more time, declines a couple groups. Reports depressed but no anxiety, flat affect, depressed, but cooperative during one-to-one assessment. He is receptive with the plan of Wellbutrin increased up to 300 mg for depression. Reports passive SI, denies plan or intention. Denies other safety concerns. Encourage patient to go to groups and shower daily. Increase Wellbutrin XL to 300 mg daily for depression. He reported that he has bipolar type II. 03/31: Laying in bed. keeping to self. showered. patient reports feeling depressed ; pt stated, I'm not having a good day. I don't want to do anything . flat affect. denies SI/HI/VH/AH. Per nursing, slept 8 hours. encouraged to attend groups. continue current tx plan. 04/01/25: Patient slept for 8 hours, poor meal intake yesterday but was medication compliant. Denies side effects. When asked about if he has poor appetite as he ate only 50 of breakfast, and 25 for lunch and not eating dinner, he said because I did not do the menu, so I got what I do not like . He shower yesterday, continued to reports depression 03/21. Denied anxiety. He does not feel any difference from Wellbutrin 150 when and when it was increased up to 300 mg. Denies SI/SIB/HI/AVH, isolative self, he plans to attend groups today. This provider spoke with patient in length regarding medication trials. Per his report, has been trying so many antidepressants they just do not work, and continued to be depressed. Some of them are Zoloft, Paxil, Effexor, Celexa, Prozac, Cymbalta, Lexapro. He also having history of taking Zyprexa more than 20 years ago due to hearing voices. Then the voices was calm. He never has a take it again after. History of Abilify but not sure if it is working as he can not recall. Regarding ADLs: He said that he had food at the residential twice a day, but he is not showering for many days despite the fact that staff asked him to do so I just do not care about being clean . Reports very low energy, low motivation, been increased suicidal thoughts and depression. He used to love music and reading but not interested in doing anything like that anymore. Reported that he had gastric sleeve surgery back in August 2023 which he lost 230 lb. He weight 447 lb prior to the surgery. He identified that after the surgery he has been more depressed slowly over months. There was a time that he wanted to starve myself so I can when asked is that you that he has stopped eating at home. He also identified that he feel more depressed after surgery as he is not able to over eating like he did before. Family mental health illnesses: Reports that who both of his parents was depressed. Mom 11 years ago. 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 History of ECTs: Reports he had history of ECTs in 2010 when he was at in [facility].He felt worse after the treatment everything seems like a dream . He clarified that immediately after the treatment he feel that way which could be a side effects of ECT but not permanent. Educate patient on possible side effects ECTs. Patient denies having seizure during ECTs treatment, no seizure history no cardiac conditions/disease history. Reports history of hypertension, but not anymore. He also has been admitted to different hospitals for psychiatric admissions in the past couple of months. Reports staying at [facility] in December for a month. [facility] in the area names [facility]) in October for another month. Per email from his OP team- clinical director at [facility], they also express concerns of patient's conditions. It is noted that their concerns are very consistent with patient' report here on the unit. He also has been admitted to different hospitals for psychiatric admissions in the past couple of months. Reports staying at [facility] in December for a month. [facility] in the area names [facility]) in October for another month. Per email from his OP team- clinical director at [facility], they also express concerns of patient's conditions. It is noted that their concerns are very consistent with patient' report here on the unit. Alfredito has been in and out on inpatient level of care since October of this year, I believe every month, for a majority of the time. He was recently discharged from [facility] after a 1 month stay and within two hours of returning home wanted to return to the hospital, saying he was unwell, and within one day was sectioned by [facility], which is how he ended up with you now. He has been coming home and intentionally starving himself, even not eating for up to 1 week. We have known Alfredito for years and since this started in October, we have seen no significant improvement in his mental health or a return to baseline. In fact, we are observing his case as consistent with failure to thrive. We have been asking for him to be inpatient at [facility] or with you at [facility] for some time in order for him to be potentially considered for ECT level of treatment, if deemed appropriate. Multiple medication trials failture to target depressive symptoms. He will be a good candidate to get trial ECT treatment in combination with current medication regimens. Patient also agrees with the plan. We would start the treatment as soon as possible. Will discuss the case with in house psychiatrist-Dr. Ward to prepare for ECT treatment. Hope to start early next week. 04/02: Laying in bed. keeping to self. Patient continues to report feeling depressed; pt stated, I feel about the same. I spoke with the other provider and agreed to do ECT . He reports sleeping well. denies SI/HI/VH/AH. Encouraged to attend groups and shower. Continue current tx plan. 04/03: no changes- just started wellbutrin 04/04: no changes 04/05/25: report anxiety a 2-3 but still 03/21 for depression. No change since started Wellbutrin. He agrees to get Wellbutrin up to 450mg daily for depression. Isolative in room, staring up to the ceiling. Discuss with patient of option to start on Intuniv for severe depression. Patient declines it at this current time but agree to see Welbutrin increased would be helpful. He agrees with ECT. Encourage groups, he says he was at art group out to dinning area but there are too much so he went back to his room. Report not many groups offered over the weekends. 04/06/25: Patient slept for 6 hours, have a sleep study done last night. Reported that he did not sleep well. Appetite is okay. Mood is depressed 03/21, denies anxiety today. Denies suicidal thoughts, but reports he has passive SI yesterday intrusive, just do not Wanna live anymore . Denies hallucinations. Address with patient of why he having bowel movement in the shower. He said it is just one episode. Reports he feel constipated. Agree with Colace. He also inform regarding the ECT which was approved by the insurance. He compliant with medication, however reports he has not feeling any difference in terms of depression at since started on Wellbutrin. Encourage groups attendance. Observe him later on during the day reading at a table in dining area. Colace 100mg BID for constipation. ECT consult placed: Patient may be seen by tomorrow by Dr. Ward. Procedure done preparing for the ECT: Head CT scan negative, EKG normal sinus rhythm, Incomplete right bundle branch block. Borderline ECG_ no change when compare to previous EKG. Unremarkable CBC with diff. 04/07/25: Per hospitalist note: ECT risk stratification Patient without previous problems with anesthesia, has previously undergone ECT RCRI 0 points, no further cardiac workup or treatment indicated at this time EKG showed QT interval WNL, no evidence of ischemic changes Based on stated PMH, HPI, and physical exam, there are no apparent medical contraindications to the planned procedure. Patient is complaining of pelvic discomfort and constipation. We will add therapy with Senokot, MiraLax and obtain urinalysis to assess for urinary tract infection. Continue treatment with atorvastatin and aspirin for history of stroke and hyperlipidemia. 04/07/25: Patient compliant with medication, reports due to the pain abdominal, he could not sleep well last night. Continued to reports depressions 8/10, anxiety 4/10 today related to the pain. Denies suicidal thoughts or voices, isolated. Shower yesterday. Review with patient test need to be done prior to having ECT. Patient met with Dr. Ward and hospitalist for ECT clearance. Due to the pain, constipated, more laxative ordered today. Also UA other by hospitalist to rule out any infection. He is flat, low energy, low motivation, withdrawal, in room mostly, but come out to other rooms to talk to the providers 04/08/25: Patient slept for 8 hours, compliant with medications, denies side effect. Met with him in his room, reported that he slept better last night, having good bowel movement, denies diarrhea is. Informed him regarding the labs work/and UA that was negative to rule out UTI. Denies pain. Explained to patient regarding pre ECT procedures/test to prepare for the day that he going to start. We will start ECT on Saturday. Per Dr. Ward, we will taper down on Latuda, start him on Modafinil low dose to help with severe depression. Continued to reports moderate to severe depression. Denies suicidal thoughts or hallucinations. 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 He denied any significant or excessive drug exposure. I do not find any focal lesion, acute or chronic, suggestive of stroke. There was no contraindication to treatment with ECT. Otherwise treatment of this condition is supportive, symptomatic and conservative Taper down on Latuda from 120 down to 100 mg daily at 17:00 for mood. Start on Modefinil 100ng daily for severe depression, low energy, poor concentration, poor motivation. ECT will be scheduled next week on Saturday. We will received treatment for Saturday/Saturday and Saturday. 04/09/25: Patient denies pain, normal bowel movement, slept well and compliant with medications. Denies side effects. Denies suicidal thoughts or hallucinations but reports mild on anxiety and moderate to severe depression. Patient appeared to be disheveled. Encourage patient to be out of bed in attended to groups included OT groups which observe he is visible in day room after the conversation. The OT will do the [place] for pre ECT next week on Saturday prior the ECT. He started modafinil 50 mg this morning. Indication and side effects explained to patient. Patient is receptive with the plan. Correction: Modefinill 50mg daily. MOCA scheduled next week prior to ECT. 04/10:Laying in bed most of morning. Patient continues to report feeling depressed. He reports looking forward to ECT; pt stated, I think it will be a positive step to get ECT . denies SI/HI/VH/AH. Encouraged to get out of bed. Continue tx plan 04/11: Per nursing, pt did not get out of bed yesterday. Observed laying in bed this morning; encouraged to attend groups and shower. Patient continues to report feeling depressed. denies SI/HI/VH/AH. Encouraged to get out of bed. Continue tx plan. 04/12: continue current tx plan 04/13: stably depressed. PMR. start ECT tomorrow, otherwise continue current mgmt. NPO past MN. 04/14/25: got his first ECT treatment this afternoon. Patient slept for 6 hours, was medication compliant. However, this morning due to the delay of the ECT treatment, he was not happy about the delay into the afternoon. He appeared to be frustrated, irritable, and not cooperative with this provider I do not want to talk to anyone . I am done talking . I do not care when asked his last bowel movement. Per nursing, patient denies suicidal thoughts, other safety concerns. Reports he has no bowel movement x4 days. Medication this morning was held until after the ECT. He also was given citrate magnesium x1. Pending effect. 04/15: made bowel movement. ECT #2 tomorrow. no change in mood or presentation as of today. T/C increasing modafanil to 200 mg sometime next week. 04/16: completed ECT without incident. no FLOWERS today. no change in presentation otherwise. continue current mgmt. ECT #3 saturday. 04/17/2025: No changes. ECT # 3 Saturday04/19/202504/18: no changes 04/19: completed ECT #3 today. no FLOWERS, no change in presentation, no change in mood. continue current mgmt. T/C modafanil increase. 04/20: mood starting to improve. laughed, affect brighter and more flexible. ECT tomorrow, NPO after midnight. continue current mgmt otherwise. 04/21: irritable at afternoon ECT. short today. continue current mgmt. 04/22: not irritable, appears depressed, says mood is unchanged. ECT tomorrow. continue current mgmt. strongly consider increase in modafanil dosing. 04/23/2025: Patient seen ECT completed bilaterally. Patient with markedly poor ADLs almost catatonic like allowing himself to be covered in feces not showering or caring for himself. Change ECT to 0.25 would follow-up on response to bilateral treatment if to withdrawn would may be secondary to bilateral and might consider return to right unilateral. Wellbutrin lowered to 300 mg modafinil was started at 100 mg can consider increase to 150 mg targeting apathy lethargy. Patient started on lorazepam 1 mg p.o. t.i.d. had test doses and seemed significantly improved with more fluid speech and increase range of affect hold lorazepam night prior to ECT 04/24/25: Patient slept for 8 hours, no appetite issues. Denies SI/SIB/HI/AVH. Report anxiety a /10 and anxiety an / which he says he does not feel much different yet from ECT. He denies short term memory. He denies FLOWERS or tireness now but says shortly after ECT he had FLOWERS from yesterday which has been gone. He reports normal BM which laxative was held yesterday. Observed patient spent couple hours in dinning areas, eating out in activity room and spent time watching TV. Nursing also reports patient attended group in the art room as well. He also showered yesterday. He is visible, but quiet keep to self, flat affect, depressed mood. Slightly improvement compare to last visit that this provider saw him about 1-2 weeks ago. Ativan started yesterday which seem to have some effects. 04/25/25: Patient slept for 8 hours, compliant with medications, denies side effects. Deny feeling tired on Ativan. Per nursing patient have incident of incontinence of feces yesterday. Therefore Colace and MiraLax and senna has been held. Notes on to hold when has loose stools. Patient denies safety concerns. Reported the same anxiety and depression level. He is more in bed today compared to yesterday but was out for meals. Flat affect, fair eye contact, resting in room. Attended no groups. No changes in terms of mental status. May have ECT on Saturday morning. 04/26: in bed after ECT. flat, withdrawn, slowed, soft. states his mood remains the same as before, no better and no worse. agreeable to increase modafanil to 150 mg. no apparent cognitive or memory deficits. 04/27: perhaps less slowed than recently. hold ativan this afternoon and overnight. NPO past MN. continue bifrontal ECT in the morning. 04/28: faster and more flexible affect. feels he is improving. decrease ativan from 1 mg TID to 0.5 mg TID. otherwise continue current mgmt. 04/29: as for yesterday. continue current mgmt. hold ativan after 3, NPO after MN. ECT in the morning. 04/30: ECT today uneventful. increase modafanil to 200 tomorrow. DC ativan after saturday morning dose. ECT saturday. NPO past MN saturday. otherwise continue current mgmt. Reason for continued inpatient stay Substantial Risk for: inability to function and rapid decompensation Time Spent With Patient Time: Total time managing care of this patient today _25___ minutes.
[2025-05-01 08:00] VITALS: BP 110/72; PULSE 65; RESP 18; TEMP 36.7; O2SAT 98
[2025-05-01] MEDS: buPROPion HCl XL 300 MG TAB.ER.24H PO (08:59)
[2025-05-01] MEDS: Aspirin Enteric Coated 81 MG TABLET.DR PO (08:59)
--- NOTE | 2025-05-01 10:12 | P.PNPSI_ITS ---
Subjective Subjective Date of Service: 05/01/25 Reason For Visit: SI depression Interim History: Continues ECT. mood with some improvement per primary team. Feels medication adjustments and ECT have been tolerated. Denies side effects. Denies SI/HI/AVH. Slept well. Review of Systems Review of Systems Constipation improving. No SOB/Wheezing. No N/V. No FLOWERS or cough. Yes all other systems are reviewed and are negative Mental Status Exam Mental Status Exam Narrative: Appearance: Casually dressed, unkempt, disheveled Behavior: Calm and cooperative, PMR Eye contact is fair Speech: soft, slowed, flattened prosody. Thought process logical and goal-directed Thought content: On treatment. Mood: feeling better Affect: constricted, normo-intense SI: none expressed HI: none expressed VH/AH: none expressed Delusions: None expressed Insight/judgment: impaired Patient Appearance: Disheveled Patient Orientation: Person, Place, Time and Situation Level of Consciousness: Awake Patient Behavior: Cooperative Mood Description: Depressed Affect Description: Depressed Ability to Follow Directions: Good Speech Pattern: Clear Memory Description: Intact Diagnostics Vital Signs (24Hr): Vital Signs - 24 hr 04/30/25 10:17 04/30/25 10:22 04/30/25 10:38 Temperature 97.4 F Pulse Rate 91 93 92 Respiratory Rate 20 20 18 Blood Pressure 99/78 157/100 H 159/93 H Pulse Oximetry 97 98 99 Oxygen Delivery Method Nasal Cannula with ETCO2 Room Air Room Air Oxygen Flow Rate 2 04/30/25 10:43 04/30/25 20:00 04/30/25 21:00 Temperature 97.9 F 98.8 F Pulse Rate 76 76 Respiratory Rate 18 16 Blood Pressure 137/93 H 88/49 L 94/52 L Pulse Oximetry 99 99 Oxygen Delivery Method Room Air Room Air Oxygen Flow Rate 05/01/25 08:00 Temperature 98.1 F Pulse Rate 65 Respiratory Rate 18 Blood Pressure 110/72 Pulse Oximetry 98 Oxygen Delivery Method Room Air Oxygen Flow Rate BMI result Body Mass Index 32.2 Labs 04/23/25 10:35 04/23/25 10:35 Imaging Radiology Impressions: ITS Impressions Head CT 04/06/25 13:54 IMPRESSION: No acute intracranial hemorrhage. Bifrontal bitemporal lobes atrophy. Electronically signed by: Roque Guillen MD 04/06/2025 02:15 PM EDT Medications Medications Current Medications Acetaminophen (Acetaminophen 325 Mg Tablet) 650 mg PO Q6H PRN PRN Reason: Headache/Pain, Scale 1-10 Last Admin: 04/14/25 20:25 Dose: 650 mg Al Hydroxide/Mg Hydroxide (Magnesium Hydrox/Alum Hydrox 30 Ml Oral.Susp) 30 ml PO Q6H PRN PRN Reason: Heartburn/Nausea Aspirin (Aspirin Enteric Coated 81 Mg Tablet.) 81 mg PO DAILY [facility] Last Admin: 05/01/25 08:59 Dose: 81 mg Atorvastatin Calcium (Atorvastatin Calcium 20 Mg Tablet) 20 mg PO BEDTIME [facility] Last Admin: 04/30/25 21:11 Dose: 20 mg Bisacodyl (Bisacodyl 5 Mg Tablet.) 10 mg PO DAILY PRN PRN Reason: severe Constipation Last Admin: 04/20/25 08:57 Dose: 10 mg Bupropion HCl (Bupropion Hcl Xl 300 Mg Tab.Er.24h) 300 mg PO DAILY [facility] Last Admin: 05/01/25 08:59 Dose: 300 mg Docusate Sodium (Docusate Sodium 100 Mg Capsule) 100 mg PO BID PRN PRN Reason: constipation Hydroxyzine HCl (Hydroxyzine Hcl 25 Mg Tablet) 25 mg PO Q6H PRN PRN Reason: mild anxiety Last Admin: 03/26/25 23:24 Dose: 25 mg Lorazepam (Lorazepam 0.5 Mg Tablet) 0.5 mg PO TID [facility] Stop: 05/02/25 09:01 Last Admin: 05/01/25 08:59 Dose: 0.5 mg Lurasidone HCl (Lurasidone Hcl 40 Mg Tablet) 40 mg PO DAILY@1700 [facility] Last Admin: 04/30/25 17:24 Dose: 40 mg Magnesium Hydroxide (Milk Of Magnesia 30 Ml Oral.Susp) 30 ml PO DAILY PRN PRN Reason: Constipation Last Admin: 04/17/25 10:24 Dose: 30 ml Modafinil (Modafinil 100 Mg Tablet) 200 mg PO DAILY [facility] Last Admin: 05/01/25 08:59 Dose: 200 mg Naloxone HCl (Naloxone Hcl 0.4 Mg/Ml Vial) 0.04 mg IVPUSH Q5M PRN PRN Reason: Excessive sedation or RR < 8 Nicotine (Nicotine 21 Mg Patch.Td24) 21 mg TRANSDERMA DAILY PRN PRN Reason: nicotine craving Nicotine Polacrilex (Nicotine Polacrilex 2 Mg Gum) 2 mg BUCCAL Q2H PRN PRN Reason: Nicotine Cravings Olanzapine (Olanzapine 5 Mg Tablet) 5 mg PO BID PRN PRN Reason: agitation Ondansetron HCl (Ondansetron Odt 8 Mg Tab.Rapdis) 8 mg TRANSLINGU Q8H PRN PRN Reason: Nausea and Vomiting Polyethylene Glycol (Polyethylene Glycol 3350 17 Gm Powd.Pack) 17 gm PO DAILY PRN PRN Reason: constipation Senna (Sennosides 8.6 Mg Tablet) 17.2 mg PO BEDTIME PRN PRN Reason: Constipation Trazodone HCl (Trazodone Hcl 50 Mg Tablet) 50 mg PO BEDTIME MRX1 PRN PRN Reason: Insomnia Last Admin: 04/05/25 23:14 Dose: 50 mg Allergies Allergies Allergy/AdvReac Type Severity Reaction Status Date / Time pumpkin Allergy Unknown Unknown Verified 12/24/24 12:26 Assessment & Plan Assessment & Plan (1) Bipolar disorder: Status: Acute Code(s): F31.9 - Bipolar disorder, unspecified (2) JUVENTINO (acute kidney injury): Status: Acute Code(s): N17.9 - Acute kidney failure, unspecified (3) CVA (cerebral vascular accident): Status: Acute Code(s): I63.9 - Cerebral infarction, unspecified (4) Abnormal head CT: Status: Acute Code(s): R93.0 - Abnormal findings on diagnostic imaging of skull and head, not elsewhere classified Plan 03/27: feels latuda 120 has been helpful. however, remains depressed. add wellbutrin XL 150 daily for depression, plan to increase to 300 mg daily in 3 days. may also consider ECT due to lack of improvement despite numerous recent hospitalizations + lethality of suicide attempts + recent self-abnegating behaviors. 03/28: no change in presentation, no requests or complaints. started wellbutrin 150 today. continue current mgmt 03/29/25: Slept well, no issues with appetite. Observed out on the unit, attended groups, engaging. Reports depression and 03/21, denies anxiety. Constricted affect, congruent with mood. Denies safety concerns. Compliant with medications. Denies side effects from Wellbutrin. Continue to encourage groups. 03/30/25: Patient slept for 6 hours, was medication compliant. He attended 2 groups yesterday, however today he is more isolated, in bed a lot more time, declines a couple groups. Reports depressed but no anxiety, flat affect, depressed, but cooperative during one-to-one assessment. He is receptive with the plan of Wellbutrin increased up to 300 mg for depression. Reports passive SI, denies plan or intention. Denies other safety concerns. Encourage patient to go to groups and shower daily. Increase Wellbutrin XL to 300 mg daily for depression. He reported that he has bipolar type II. 03/31: Laying in bed. keeping to self. showered. patient reports feeling depressed ; pt stated, I'm not having a good day. I don't want to do anything . flat affect. denies SI/HI/VH/AH. Per nursing, slept 8 hours. encouraged to attend groups. continue current tx plan. 04/01/25: Patient slept for 8 hours, poor meal intake yesterday but was medication compliant. Denies side effects. When asked about if he has poor appetite as he ate only 50 of breakfast, and 25 for lunch and not eating dinner, he said because I did not do the menu, so I got what I do not like . He shower yesterday, continued to reports depression 03/21. Denied anxiety. He does not feel any difference from Wellbutrin 150 when and when it was increased up to 300 mg. Denies SI/SIB/HI/AVH, isolative self, he plans to attend groups today. This provider spoke with patient in length regarding medication trials. Per his report, has been trying so many antidepressants they just do not work, and continued to be depressed. Some of them are Zoloft, Paxil, Effexor, Celexa, Prozac, Cymbalta, Lexapro. He also having history of taking Zyprexa more than 20 years ago due to hearing voices. Then the voices was calm. He never has a take it again after. History of Abilify but not sure if it is working as he can not recall. Regarding ADLs: He said that he [facility] day, but he is not showering for many days despite the fact that staff asked him to do so I just do not care about being clean . Reports very low energy, low motivation, been increased suicidal thoughts and depression. He used to love music and reading but not interested in doing anything like that anymore. Reported that he had gastric sleeve surgery back in August 2023 which he lost 230 lb. He weight 447 lb prior to the surgery. He identified that after the surgery he has been more depressed slowly over months. There was a time that he wanted to starve myself so I can when asked is that you that he has stopped eating at home. He also identified that he feel more depressed after surgery as he is not able to over eating like he did before. Family mental health illnesses: Reports that who both of his parents was depressed. Mom 11 years ago. 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 History of ECTs: Reports he had history of ECTs in 2010 when he was at in [facility].He felt worse after the treatment everything seems like a dream . He clarified that immediately after the treatment he feel that way which could be a side effects of ECT but not permanent. Educate patient on possible side effects ECTs. Patient denies having seizure during ECTs treatment, no seizure history no cardiac conditions/disease history. Reports history of hypertension, but not anymore. He also has been admitted to different hospitals for psychiatric admissions in the past couple of months. Reports staying at [facility] in December for a month. [facility] in the area names [facility]) in October for another month. Per email from his OP team- clinical director at [facility], they also express concerns of patient's conditions. It is noted that their concerns are very consistent with patient' report here on the unit. He also has been admitted to different hospitals for psychiatric admissions in the past couple of months. Reports staying at [facility] in December for a month. [facility] in the area names [facility]) in October for another month. Per email from his OP team- clinical director at [facility], they also express concerns of patient's conditions. It is noted that their concerns are very consistent with patient' report here on the unit. Alfredito has been in and out on inpatient level of care since October of this year, I believe every month, for a majority of the time. He was recently discharged from [facility] after a 1 month stay and within two hours of returning home wanted to return to the hospital, saying he was unwell, and within one day was sectioned by [facility], which is how he ended up with you now. He has been coming home and intentionally starving himself, even not eating for up to 1 week. We have known Alfredito for years and since this started in October, we have seen no significant improvement in his mental health or a return to baseline. In fact, we are observing his case as consistent with failure to thrive. We have been asking for him to be inpatient at [facility] or with you at [facility] for some time in order for him to be potentially considered for ECT level of treatment, if deemed appropriate. Multiple medication trials failture to target depressive symptoms. He will be a good candidate to get trial ECT treatment in combination with current medication regimens. Patient also agrees with the plan. We would start the treatment as soon as possible. Will discuss the case with in house psychiatrist-Dr. Ward to prepare for ECT treatment. Hope to start early next week. 04/02: Laying in bed. keeping to self. Patient continues to report feeling depressed; pt stated, I feel about the same. I spoke with the other provider and agreed to do ECT . He reports sleeping well. denies SI/HI/VH/AH. Encouraged to attend groups and shower. Continue current tx plan. 04/03: no changes- just started wellbutrin 04/04: no changes 04/05/25: report anxiety a 2-3/10 but still 8/10 for depression. No change since started Wellbutrin. He agrees to get Wellbutrin up to 450mg daily for depression. Isolative in room, staring up to the ceiling. Discuss with patient of option to start on Intuniv for severe depression. Patient declines it at this current time but agree to see Welbutrin increased would be helpful. He agrees with ECT. Encourage groups, he says he was at art group out to dinning area but there are too much so he went back to his room. Report not many groups offered over the weekends. 04/06/25: Patient slept for 6 hours, have a sleep study done last night. Reported that he did not sleep well. Appetite is okay. Mood is depressed 03/21, denies anxiety today. Denies suicidal thoughts, but reports he has passive SI yesterday intrusive, just do not Wanna live anymore . Denies hallucinations. Address with patient of why he having bowel movement in the shower. He said it is just one episode. Reports he feel constipated. Agree with Colace. He also inform regarding the ECT which was approved by the insurance. He compliant with medication, however reports he has not feeling any difference in terms of depression at since started on Wellbutrin. Encourage groups attendance. Observe him later on during the day reading at a table in dining area. Colace 100mg BID for constipation. ECT consult placed: Patient may be seen by tomorrow by Dr. Ward. Procedure done preparing for the ECT: Head CT scan negative, EKG normal sinus rhythm, Incomplete right bundle branch block. Borderline ECG_ no change when compare to previous EKG. Unremarkable CBC with diff. 04/07/25: Per hospitalist note: ECT risk stratification Patient without previous problems with anesthesia, has previously undergone ECT RCRI 0 points, no further cardiac workup or treatment indicated at this time EKG showed QT interval WNL, no evidence of ischemic changes Based on stated PMH, HPI, and physical exam, there are no apparent medical contraindications to the planned procedure. Patient is complaining of pelvic discomfort and constipation. We will add therapy with Senokot, MiraLax and obtain urinalysis to assess for urinary tract infection. Continue treatment with atorvastatin and aspirin for history of stroke and hyperlipidemia. 04/07/25: Patient compliant with medication, reports due to the pain abdominal, he could not sleep well last night. Continued to reports depressions 8/10, anxiety 4/10 today related to the pain. Denies suicidal thoughts or voices, isolated. Shower yesterday. Review with patient test need to be done prior to having ECT. Patient met with Dr. Ward and hospitalist for ECT clearance. Due to the pain, constipated, more laxative ordered today. Also UA other by hospitalist to rule out any infection. He is flat, low energy, low motivation, withdrawal, in room mostly, but come out to other rooms to talk to the providers 04/08/25: Patient slept for 8 hours, compliant with medications, denies side effect. Met with him in his room, reported that he slept better last night, having good bowel movement, denies diarrhea is. Informed him regarding the labs work/and UA that was negative to rule out UTI. Denies pain. Explained to patient regarding pre ECT procedures/test to prepare for the day that he going to start. We will start ECT on Saturday. Per Dr. Ward, we will taper down on Latuda, start him on Modafinil low dose to help with severe depression. Continued to reports moderate to severe depression. Denies suicidal thoughts or hallucinations. 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 He denied any significant or excessive drug exposure. I do not find any focal lesion, acute or chronic, suggestive of stroke. There was no contraindication to treatment with ECT. Otherwise treatment of this condition is supportive, symptomatic and conservative Taper down on Latuda from 120 down to 100 mg daily at 17:00 for mood. Start on Modefinil 100ng daily for severe depression, low energy, poor concentration, poor motivation. ECT will be scheduled next week on Saturday. We will received treatment for Saturday/Saturday and Saturday. 04/09/25: Patient denies pain, normal bowel movement, slept well and compliant with medications. Denies side effects. Denies suicidal thoughts or hallucinations but reports mild on anxiety and moderate to severe depression. Patient appeared to be disheveled. Encourage patient to be out of bed in attended to groups included OT groups which observe he is visible in day room after the conversation. The OT will do the [place] for pre ECT next week on Saturday prior the ECT. He started modafinil 50 mg this morning. Indication and side effects explained to patient. Patient is receptive with the plan. Correction: Modefinill 50mg daily. MOCA scheduled next week prior to ECT. 04/10:Laying in bed most of morning. Patient continues to report feeling depressed. He reports looking forward to ECT; pt stated, I think it will be a positive step to get ECT . denies SI/HI/VH/AH. Encouraged to get out of bed. Continue tx plan 04/11: Per nursing, pt did not get out of bed yesterday. Observed laying in bed this morning; encouraged to attend groups and shower. Patient continues to report feeling depressed. denies SI/HI/VH/AH. Encouraged to get out of bed. Continue tx plan. 04/12: continue current tx plan 04/13: stably depressed. PMR. start ECT tomorrow, otherwise continue current mgmt. NPO past MN. 04/14/25: got his first ECT treatment this afternoon. Patient slept for 6 hours, was medication compliant. However, this morning due to the delay of the ECT treatment, he was not happy about the delay into the afternoon. He appeared to be frustrated, irritable, and not cooperative with this provider I do not want to talk to anyone . I am done talking . I do not care when asked his last bowel movement. Per nursing, patient denies suicidal thoughts, other safety concerns. Reports he has no bowel movement x4 days. Medication this morning was held until after the ECT. He also was given citrate magnesium x1. Pending effect. 04/15: made bowel movement. ECT #2 tomorrow. no change in mood or presentation as of today. T/C increasing modafanil to 200 mg sometime next week. 04/16: completed ECT without incident. no FLOWERS today. no change in presentation otherwise. continue current mgmt. ECT #3 saturday. 04/17/2025: No changes. ECT # 3 Saturday04/19/202504/18: no changes 04/19: completed ECT #3 today. no FLOWERS, no change in presentation, no change in mood. continue current mgmt. T/C modafanil increase. 04/20: mood starting to improve. laughed, affect brighter and more flexible. ECT tomorrow, NPO after midnight. continue current mgmt otherwise. 04/21: irritable at afternoon ECT. short today. continue current mgmt. 04/22: not irritable, appears depressed, says mood is unchanged. ECT tomorrow. continue current mgmt. strongly consider increase in modafanil dosing. 04/23/2025: Patient seen ECT completed bilaterally. Patient with markedly poor ADLs almost catatonic like allowing himself to be covered in feces not showering or caring for himself. Change ECT to 0.25 would follow-up on response to bilateral treatment if to withdrawn would may be secondary to bilateral and might consider return to right unilateral. Wellbutrin lowered to 300 mg modafinil was started at 100 mg can consider increase to 150 mg targeting apathy lethargy. Patient started on lorazepam 1 mg p.o. t.i.d. had test doses and seemed significantly improved with more fluid speech and increase range of affect hold lorazepam night prior to ECT 04/24/25: Patient slept for 8 hours, no appetite issues. Denies SI/SIB/HI/AVH. Report anxiety a 2/10 and anxiety an 8/10 which he says he does not feel much different yet from ECT. He denies short term memory. He denies FLOWERS or tireness now but says shortly after ECT he had FLOWERS from yesterday which has been gone. He reports normal BM which laxative was held yesterday. Observed patient spent couple hours in dinning areas, eating out in activity room and spent time watching TV. Nursing also reports patient attended group in the art room as well. He also showered yesterday. He is visible, but quiet keep to self, flat affect, depressed mood. Slightly improvement compare to last visit that this provider saw him about 1-2 weeks ago. Ativan started yesterday which seem to have some effects. 04/25/25: Patient slept for 8 hours, compliant with medications, denies side effects. Deny feeling tired on Ativan. Per nursing patient have incident of incontinence of feces yesterday. Therefore Colace and MiraLax and senna has been held. Notes on to hold when has loose stools. Patient denies safety concerns. Reported the same anxiety and depression level. He is more in bed today compared to yesterday but was out for meals. Flat affect, fair eye contact, resting in room. Attended no groups. No changes in terms of mental status. May have ECT on Saturday. 04/26: in bed after ECT. flat, withdrawn, slowed, soft. states his mood remains the same as before, no better and no worse. agreeable to increase modafanil to 150 mg. no apparent cognitive or memory deficits. 04/27: perhaps less slowed than recently. hold ativan this afternoon and overnight. NPO past MN. continue bifrontal ECT in the morning. 04/28: faster and more flexible affect. feels he is improving. decrease ativan from 1 mg TID to 0.5 mg TID. otherwise continue current mgmt. 04/29: as for yesterday. continue current mgmt. hold ativan after 3, NPO after MN. ECT in the morning. 04/30: ECT today uneventful. increase modafanil to 200 tomorrow. DC ativan after saturday morning dose. ECT saturday. NPO past MN saturday. otherwise continue current mgmt. 05/01: Continue current management and treatment plan. Reason for continued inpatient stay Substantial Risk for: inability to function and rapid decompensation Time Spent With Patient Time: Total time managing care of this patient today ____ minutes.
[2025-05-01 20:00] VITALS: BP 92/49; PULSE 70; RESP 14; TEMP 36.6; O2SAT 96
[2025-05-02 08:00] VITALS: BP 100/59; PULSE 62; RESP 14; TEMP 36.4; O2SAT 97
[2025-05-02] MEDS: Aspirin Enteric Coated 81 MG TABLET.DR PO (08:10)
[2025-05-02] MEDS: buPROPion HCl XL 300 MG TAB.ER.24H PO (08:10)
--- NOTE | 2025-05-02 11:15 | HO.PSYCHPN ---
Subjective Subjective Date of Service: 05/02/25 Reason For Visit: SI depression Interim History: Continues ECT. RN report he continues depressed yesterday. He reports his mood is improved. He set some goals for himself today and was able to shower and attended a group. He was out on the unit today. Yesterday mostly isolated. He is aware ECT tomorrow. Medication adjustments and ECT have been tolerated. Denies side effects. Denies SI/HI/AVH. Slept well. Review of Systems Review of Systems Constipation improving. No SOB/Wheezing. No N/V. No FLOWERS or cough. Yes all other systems are reviewed and are negative Mental Status Exam Mental Status Exam Narrative: Appearance: Casually dressed, unkempt, disheveled Behavior: Calm and cooperative, PMR Eye contact is fair Speech: soft, slowed, flattened prosody. Thought process logical and goal-directed Thought content: On treatment. Mood: feeling better Affect: constricted, normo-intense SI: none expressed HI: none expressed VH/AH: none expressed Delusions: None expressed Insight/judgment: impaired Patient Appearance: Disheveled Patient Orientation: Person, Place, Time and Situation Level of Consciousness: Awake Patient Behavior: Cooperative Mood Description: Depressed Affect Description: Depressed Ability to Follow Directions: Good Speech Pattern: Clear Memory Description: Intact Diagnostics Vital Signs (24Hr): Vital Signs - 24 hr 05/01/25 20:00 05/02/25 08:00 Temperature 97.9 F 97.6 F Pulse Rate 70 62 Respiratory Rate 14 14 Blood Pressure 92/49 L 100/59 L Pulse Oximetry 96 97 Oxygen Delivery Method Room Air Room Air BMI result Body Mass Index 32.2 Labs 04/23/25 10:35 04/23/25 10:35 Imaging Radiology Impressions: ITS Impressions Head CT 04/06/25 13:54 IMPRESSION: No acute intracranial hemorrhage. Bifrontal bitemporal lobes atrophy. Electronically signed by: Roque Guillen MD 04/06/2025 02:15 PM EDT Medications Medications Current Medications Acetaminophen (Acetaminophen 325 Mg Tablet) 650 mg PO Q6H PRN PRN Reason: Headache/Pain, Scale 1-10 Last Admin: 04/14/25 20:25 Dose: 650 mg Al Hydroxide/Mg Hydroxide (Magnesium Hydrox/Alum Hydrox 30 Ml Oral.Susp) 30 ml PO Q6H PRN PRN Reason: Heartburn/Nausea Aspirin (Aspirin Enteric Coated 81 Mg Tablet.Dr) 81 mg PO DAILY [facility] Last Admin: 05/02/25 08:10 Dose: 81 mg Atorvastatin Calcium (Atorvastatin Calcium 20 Mg Tablet) 20 mg PO BEDTIME [facility] Last Admin: 05/01/25 20:14 Dose: 20 mg Bisacodyl (Bisacodyl 5 Mg Tablet.Dr) 10 mg PO DAILY PRN PRN Reason: severe Constipation Last Admin: 04/20/25 08:57 Dose: 10 mg Bupropion HCl (Bupropion Hcl Xl 300 Mg Tab.Er.24h) 300 mg PO DAILY [facility] Last Admin: 05/02/25 08:10 Dose: 300 mg Docusate Sodium (Docusate Sodium 100 Mg Capsule) 100 mg PO BID PRN PRN Reason: constipation Hydroxyzine HCl (Hydroxyzine Hcl 25 Mg Tablet) 25 mg PO Q6H PRN PRN Reason: mild anxiety Last Admin: 03/26/25 23:24 Dose: 25 mg Lurasidone HCl (Lurasidone Hcl 40 Mg Tablet) 40 mg PO DAILY@1700 [facility] Last Admin: 05/01/25 17:43 Dose: 40 mg Magnesium Hydroxide (Milk Of Magnesia 30 Ml Oral.Susp) 30 ml PO DAILY PRN PRN Reason: Constipation Last Admin: 04/17/25 10:24 Dose: 30 ml Modafinil (Modafinil 100 Mg Tablet) 200 mg PO DAILY [facility] Last Admin: 05/02/25 08:11 Dose: 200 mg Naloxone HCl (Naloxone Hcl 0.4 Mg/Ml Vial) 0.04 mg IVPUSH Q5M PRN PRN Reason: Excessive sedation or RR < 8 Nicotine (Nicotine 21 Mg Patch.Td24) 21 mg TRANSDERMA DAILY PRN PRN Reason: nicotine craving Nicotine Polacrilex (Nicotine Polacrilex 2 Mg Gum) 2 mg BUCCAL Q2H PRN PRN Reason: Nicotine Cravings Olanzapine (Olanzapine 5 Mg Tablet) 5 mg PO BID PRN PRN Reason: agitation Ondansetron HCl (Ondansetron Odt 8 Mg Tab.Rapdis) 8 mg TRANSLINGU Q8H PRN PRN Reason: Nausea and Vomiting Polyethylene Glycol (Polyethylene Glycol 3350 17 Gm Powd.Pack) 17 gm PO DAILY PRN PRN Reason: constipation Senna (Sennosides 8.6 Mg Tablet) 17.2 mg PO BEDTIME PRN PRN Reason: Constipation Trazodone HCl (Trazodone Hcl 50 Mg Tablet) 50 mg PO BEDTIME MRX1 PRN PRN Reason: Insomnia Last Admin: 04/05/25 23:14 Dose: 50 mg Allergies Allergies Allergy/AdvReac Type Severity Reaction Status Date / Time pumpkin Allergy Unknown Unknown Verified 12/24/24 12:26 Assessment & Plan Assessment & Plan (1) Bipolar disorder: Status: Acute Code(s): F31.9 - Bipolar disorder, unspecified (2) JUVENTINO (acute kidney injury): Status: Acute Code(s): N17.9 - Acute kidney failure, unspecified (3) CVA (cerebral vascular accident): Status: Acute Code(s): I63.9 - Cerebral infarction, unspecified (4) Abnormal head CT: Status: Acute Code(s): R93.0 - Abnormal findings on diagnostic imaging of skull and head, not elsewhere classified Plan 03/27: feels latuda 120 has been helpful. however, remains depressed. add wellbutrin XL 150 daily for depression, plan to increase to 300 mg daily in 3 days. may also consider ECT due to lack of improvement despite numerous recent hospitalizations + lethality of suicide attempts + recent self-abnegating behaviors. 03/28: no change in presentation, no requests or complaints. started wellbutrin 150 today. continue current mgmt 03/29/25: Slept well, no issues with appetite. Observed out on the unit, attended groups, engaging. Reports depression and 03/21, denies anxiety. Constricted affect, congruent with mood. Denies safety concerns. Compliant with medications. Denies side effects from Wellbutrin. Continue to encourage groups. 03/30/25: Patient slept for 6 hours, was medication compliant. He attended 2 groups yesterday, however today he is more isolated, in bed a lot more time, declines a couple groups. Reports depressed but no anxiety, flat affect, depressed, but cooperative during one-to-one assessment. He is receptive with the plan of Wellbutrin increased up to 300 mg for depression. Reports passive SI, denies plan or intention. Denies other safety concerns. Encourage patient to go to groups and shower daily. Increase Wellbutrin XL to 300 mg daily for depression. He reported that he has bipolar type II. 03/31: Laying in bed. keeping to self. showered. patient reports feeling depressed ; pt stated, I'm not having a good day. I don't want to do anything . flat affect. denies SI/HI/VH/AH. Per nursing, slept 8 hours. encouraged to attend groups. continue current tx plan. 04/01/25: Patient slept for 8 hours, poor meal intake yesterday but was medication compliant. Denies side effects. When asked about if he has poor appetite as he ate only 50 of breakfast, and 25 for lunch and not eating dinner, he said because I did not do the menu, so I got what I do not like . He shower yesterday, continued to reports depression 03/21. Denied anxiety. He does not feel any difference from Wellbutrin 150 when and when it was increased up to 300 mg. Denies SI/SIB/HI/AVH, isolative self, he plans to attend groups today. This provider spoke with patient in length regarding medication trials. Per his report, has been trying so many antidepressants they just do not work, and continued to be depressed. Some of them are Zoloft, Paxil, Effexor, Celexa, Prozac, Cymbalta, Lexapro. He also having history of taking Zyprexa more than 20 years ago due to hearing voices. Then the voices was calm. He never has a take it again after. History of Abilify but not sure if it is working as he can not recall. Regarding ADLs: He said that he had food at the group home twice a day, but he is not showering for many days despite the fact that staff asked him to do so I just do not care about being clean . Reports very low energy, low motivation, been increased suicidal thoughts and depression. He used to love music and reading but not interested in doing anything like that anymore. Reported that he had gastric sleeve surgery back in August 2023 which he lost 230 lb. He weight 447 lb prior to the surgery. He identified that after the surgery he has been more depressed slowly over months. There was a time that he wanted to starve myself so I can when asked is that you that he has stopped eating at home. He also identified that he feel more depressed after surgery as he is not able to over eating like he did before. Family mental health illnesses: Reports that who both of his parents was depressed. Mom 11 years ago. 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 History of ECTs: Reports he had history of ECTs in 2010 when he was at in [facility].He felt worse after the treatment everything seems like a dream . He clarified that immediately after the treatment he feel that way which could be a side effects of ECT but not permanent. Educate patient on possible side effects ECTs. Patient denies having seizure during ECTs treatment, no seizure history no cardiac conditions/disease history. Reports history of hypertension, but not anymore. He also has been admitted to different hospitals for psychiatric admissions in the past couple of months. Reports staying at [facility] in December for a month. [facility] in the area names [facility]) in October for another month. Per email from his OP team- clinical director at [facility], they also express concerns of patient's conditions. It is noted that their concerns are very consistent with patient' report here on the unit. He also has been admitted to different hospitals for psychiatric admissions in the past couple of months. Reports staying at [facility] in December for a month. [facility] in the area names [facility]) in October for another month. Per email from his OP team- clinical director at [facility], they also express concerns of patient's conditions. It is noted that their concerns are very consistent with patient' report here on the unit. Alfredito has been in and out on inpatient level of care since October of this year, I believe every month, for a majority of the time. He was recently discharged from [facility] after a 1 month stay and within two hours of returning home wanted to return to the hospital, saying he was unwell, and within one day was sectioned by [facility], which is how he ended up with you now. He has been coming home and intentionally starving himself, even not eating for up to 1 week. We have known Alfredito for years and since this started in October, we have seen no significant improvement in his mental health or a return to baseline. In fact, we are observing his case as consistent with failure to thrive. We have been asking for him to be inpatient at [facility] or with you at [facility] for some time in order for him to be potentially considered for ECT level of treatment, if deemed appropriate. Multiple medication trials failture to target depressive symptoms. He will be a good candidate to get trial ECT treatment in combination with current medication regimens. Patient also agrees with the plan. We would start the treatment as soon as possible. Will discuss the case with in house psychiatrist-Dr. Ward to prepare for ECT treatment. Hope to start early next week. 04/02: Laying in bed. keeping to self. Patient continues to report feeling depressed; pt stated, I feel about the same. I spoke with the other provider and agreed to do ECT . He reports sleeping well. denies SI/HI/VH/AH. Encouraged to attend groups and shower. Continue current tx plan. 04/03: no changes- just started wellbutrin 04/04: no changes 04/05/25: report anxiety a 2-3/10 but still 810 for depression. No change since started Wellbutrin. He agrees to get Wellbutrin up to 450mg daily for depression. Isolative in room, staring up to the ceiling. Discuss with patient of option to start on Intuniv for severe depression. Patient declines it at this current time but agree to see Welbutrin increased would be helpful. He agrees with ECT. Encourage groups, he says he was at art group out to dinning area but there are too much so he went back to his room. Report not many groups offered over the weekends. 04/06/25: Patient slept for 6 hours, have a sleep study done last night. Reported that he did not sleep well. Appetite is okay. Mood is depressed 03/21, denies anxiety today. Denies suicidal thoughts, but reports he has passive SI yesterday intrusive, just do not Wanna live anymore . Denies hallucinations. Address with patient of why he having bowel movement in the shower. He said it is just one episode. Reports he feel constipated. Agree with Colace. He also inform regarding the ECT which was approved by the insurance. He compliant with medication, however reports he has not feeling any difference in terms of depression at since started on Wellbutrin. Encourage groups attendance. Observe him later on during the day reading at a table in dining area. Colace 100mg BID for constipation. ECT consult placed: Patient may be seen by tomorrow by Dr. Ward. Procedure done preparing for the ECT: Head CT scan negative, EKG normal sinus rhythm, Incomplete right bundle branch block. Borderline ECG_ no change when compare to previous EKG. Unremarkable CBC with diff. 04/07/25: Per hospitalist note: ECT risk stratification Patient without previous problems with anesthesia, has previously undergone ECT RCRI 0 points, no further cardiac workup or treatment indicated at this time EKG showed QT interval WNL, no evidence of ischemic changes Based on stated PMH, HPI, and physical exam, there are no apparent medical contraindications to the planned procedure. Patient is complaining of pelvic discomfort and constipation. We will add therapy with Senokot, MiraLax and obtain urinalysis to assess for urinary tract infection. Continue treatment with atorvastatin and aspirin for history of stroke and hyperlipidemia. 04/07/25: Patient compliant with medication, reports due to the pain abdominal, he could not sleep well last night. Continued to reports depressions 8/10, anxiety 4/10 today related to the pain. Denies suicidal thoughts or voices, isolated. Shower yesterday. Review with patient test need to be done prior to having ECT. Patient met with Dr. Ward and hospitalist for ECT clearance. Due to the pain, constipated, more laxative ordered today. Also UA other by hospitalist to rule out any infection. He is flat, low energy, low motivation, withdrawal, in room mostly, but come out to other rooms to talk to the providers 04/08/25: Patient slept for 8 hours, compliant with medications, denies side effect. Met with him in his room, reported that he slept better last night, having good bowel movement, denies diarrhea is. Informed him regarding the labs work/and UA that was negative to rule out UTI. Denies pain. Explained to patient regarding pre ECT procedures/test to prepare for the day that he going to start. We will start ECT on Saturday. Per Dr. Ward, we will taper down on Latuda, start him on Modafinil low dose to help with severe depression. Continued to reports moderate to severe depression. Denies suicidal thoughts or hallucinations. 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 He denied any significant or excessive drug exposure. I do not find any focal lesion, acute or chronic, suggestive of stroke. There was no contraindication to treatment with ECT. Otherwise treatment of this condition is supportive, symptomatic and conservative Taper down on Latuda from 120 down to 100 mg daily at 17:00 for mood. Start on Modefinil 100ng daily for severe depression, low energy, poor concentration, poor motivation. ECT will be scheduled next week on Saturday. We will received treatment for Saturday/Saturday and Saturday. 04/09/25: Patient denies pain, normal bowel movement, slept well and compliant with medications. Denies side effects. Denies suicidal thoughts or hallucinations but reports mild on anxiety and moderate to severe depression. Patient appeared to be disheveled. Encourage patient to be out of bed in attended to groups included OT groups which observe he is visible in day room after the conversation. The OT will do the [place] for pre ECT next week on Saturday prior the ECT. He started modafinil 50 mg this morning. Indication and side effects explained to patient. Patient is receptive with the plan. Correction: Modefinill 50mg daily. MOCA scheduled next week prior to ECT. 04/10:Laying in bed most of morning. Patient continues to report feeling depressed. He reports looking forward to ECT; pt stated, I think it will be a positive step to get ECT . denies SI/HI/VH/AH. Encouraged to get out of bed. Continue tx plan 04/11: Per nursing, pt did not get out of bed yesterday. Observed laying in bed this morning; encouraged to attend groups and shower. Patient continues to report feeling depressed. denies SI/HI/VH/AH. Encouraged to get out of bed. Continue tx plan. 04/12: continue current tx plan 04/13: stably depressed. PMR. start ECT tomorrow, otherwise continue current mgmt. NPO past MN. 04/14/25: got his first ECT treatment this afternoon. Patient slept for 6 hours, was medication compliant. However, this morning due to the delay of the ECT treatment, he was not happy about the delay into the afternoon. He appeared to be frustrated, irritable, and not cooperative with this provider I do not want to talk to anyone . I am done talking . I do not care when asked his last bowel movement. Per nursing, patient denies suicidal thoughts, other safety concerns. Reports he has no bowel movement x4 days. Medication this morning was held until after the ECT. He also was given citrate magnesium x1. Pending effect. 04/15: made bowel movement. ECT #2 tomorrow. no change in mood or presentation as of today. T/C increasing modafanil to 200 mg sometime next week. 04/16: completed ECT without incident. no FLOWERS today. no change in presentation otherwise. continue current mgmt. ECT #3 saturday. 04/17/2025: No changes. ECT # 3 Saturday04/19/202504/18: no changes 04/19: completed ECT #3 today. no FLOWERS, no change in presentation, no change in mood. continue current mgmt. T/C modafanil increase. 04/20: mood starting to improve. laughed, affect brighter and more flexible. ECT tomorrow, NPO after midnight. continue current mgmt otherwise. 04/21: irritable at afternoon ECT. short today. continue current mgmt. 04/22: not irritable, appears depressed, says mood is unchanged. ECT tomorrow. continue current mgmt. strongly consider increase in modafanil dosing. 04/23/2025: Patient seen ECT completed bilaterally. Patient with markedly poor ADLs almost catatonic like allowing himself to be covered in feces not showering or caring for himself. Change ECT to 0.25 would follow-up on response to bilateral treatment if to withdrawn would may be secondary to bilateral and might consider return to right unilateral. Wellbutrin lowered to 300 mg modafinil was started at 100 mg can consider increase to 150 mg targeting apathy lethargy. Patient started on lorazepam 1 mg p.o. t.i.d. had test doses and seemed significantly improved with more fluid speech and increase range of affect hold lorazepam night prior to ECT 04/24/25: Patient slept for 8 hours, no appetite issues. Denies SI/SIB/HI/AVH. Report anxiety a 2/10 and anxiety an 8/10 which he says he does not feel much different yet from ECT. He denies short term memory. He denies FLOWERS or tireness now but says shortly after ECT he had FLOWERS from yesterday which has been gone. He reports normal BM which laxative was held yesterday. Observed patient spent couple hours in dinning areas, eating out in activity room and spent time watching TV. Nursing also reports patient attended group in the art room as well. He also showered yesterday. He is visible, but quiet keep to self, flat affect, depressed mood. Slightly improvement compare to last visit that this provider saw him about 1-2 weeks ago. Ativan started yesterday which seem to have some effects. 04/25/25: Patient slept for 8 hours, compliant with medications, denies side effects. Deny feeling tired on Ativan. Per nursing patient have incident of incontinence of feces yesterday. Therefore Colace and MiraLax and senna has been held. Notes on to hold when has loose stools. Patient denies safety concerns. Reported the same anxiety and depression level. He is more in bed today compared to yesterday but was out for meals. Flat affect, fair eye contact, resting in room. Attended no groups. No changes in terms of mental status. May have ECT on Saturday. 04/26: in bed after ECT. flat, withdrawn, slowed, soft. states his mood remains the same as before, no better and no worse. agreeable to increase modafanil to 150 mg. no apparent cognitive or memory deficits. 04/27: perhaps less slowed than recently. hold ativan this afternoon and overnight. NPO past MN. continue bifrontal ECT in the morning. 04/28: faster and more flexible affect. feels he is improving. decrease ativan from 1 mg TID to 0.5 mg TID. otherwise continue current mgmt. 04/29: as for yesterday. continue current mgmt. hold ativan after 3, NPO after MN. ECT in the morning. 04/30: ECT today uneventful. increase modafanil to 200 tomorrow. DC ativan after saturday morning dose. ECT saturday. NPO past MN saturday. otherwise continue current mgmt. 05/01: Continue current management and treatment plan. 05/02: continue current management and treatment plan. Reason for continued inpatient stay Substantial Risk for: inability to function and rapid decompensation Time Spent With Patient Time: Total time managing care of this patient today ____ minutes.
[2025-05-02 20:00] VITALS: BP 107/54; PULSE 67; RESP 16; TEMP 36.3; O2SAT 95
[2025-05-03] VITALS (11 sets, daily range): BP systolic 106–148; BP diastolic 64–90; PULSE 62–87; RESP 14–20; TEMP 36.1–36.6; O2SAT 98–100
--- NOTE | 2025-05-03 07:10 | P.CONAN_ITS ---
HPI - Anesthesia Eval Consult details Narrative: 49 yo M presenting for ECT [facility] Active Problems Active Problems: All Active Problems CVA (cerebral vascular accident) (Acute) Abnormal head CT (Acute) JUVENTINO (acute kidney injury) (Acute) Depression (Acute) Bipolar disorder (Acute) H/O gastric sleeve (Acute) Past Medical History Medical History Obesity LUIS (obstructive sleep apnea) HLD (hyperlipidemia) HTN (hypertension) CVA (cerebral vascular accident) Functional capacity: independent ambulation Family History Family history of problems with anesthesia: No Surgical History History of Problems with Anesthesia: No Social History Social History Household Members: Other Household Members Other:: transitional housing Housing: Other Do you presently have visiting nurse or other home services: No Patient Tobacco Use Status: Never used Tobacco Second Hand Smoke Exposure: Yes Currently Displaying Signs/Symptoms of Drug Intoxication Withdrawal: No Have you been hit, kicked, punched, or otherwise hurt by someone within the past year? If so, by whom?: No Do you feel safe in your current relationship?: No Current Relationship Is there a partner from a previous relationship who is making you feel unsafe now?: No Are you made to feel afraid or neglected: No Advance Directives: No Advance Directives Information Provided: No Do you have thoughts of harming others: None Do you have a plan to hurt others: No Plan Recently lost weight without trying: No Eating poorly because of decreased appetite: No Nutrition Risks: No Nutritional Risk Poor oral hygiene: Yes (very dry scalp) service: No Sexual orientation: Straight/Heterosexual Meds Allergies Allergy/AdvReac Type Severity Reaction Status Date / Time pumpkin Allergy Unknown Unknown Verified 12/24/24 12:26 Active Medications: Current Medications Acetaminophen (Acetaminophen 325 Mg Tablet) 650 mg PO Q6H PRN PRN Reason: Headache/Pain, Scale 1-10 Last Admin: 04/14/25 20:25 Dose: 650 mg Al Hydroxide/Mg Hydroxide (Magnesium Hydrox/Alum Hydrox 30 Ml Oral.Susp) 30 ml PO Q6H PRN PRN Reason: Heartburn/Nausea Aspirin (Aspirin Enteric Coated 81 Mg Tablet.Dr) 81 mg PO DAILY [facility] Last Admin: 05/02/25 08:10 Dose: 81 mg Atorvastatin Calcium (Atorvastatin Calcium 20 Mg Tablet) 20 mg PO BEDTIME [facility] Last Admin: 05/02/25 20:27 Dose: 20 mg Bisacodyl (Bisacodyl 5 Mg Tablet.Dr) 10 mg PO DAILY PRN PRN Reason: severe Constipation Last Admin: 04/20/25 08:57 Dose: 10 mg Bupropion HCl (Bupropion Hcl Xl 300 Mg Tab.Er.24h) 300 mg PO DAILY [facility] Last Admin: 05/02/25 08:10 Dose: 300 mg Docusate Sodium (Docusate Sodium 100 Mg Capsule) 100 mg PO BID PRN PRN Reason: constipation Hydroxyzine HCl (Hydroxyzine Hcl 25 Mg Tablet) 25 mg PO Q6H PRN PRN Reason: mild anxiety Last Admin: 03/26/25 23:24 Dose: 25 mg Lurasidone HCl (Lurasidone Hcl 40 Mg Tablet) 40 mg PO DAILY@1700 [facility] Last Admin: 05/02/25 17:49 Dose: 40 mg Magnesium Hydroxide (Milk Of Magnesia 30 Ml Oral.Susp) 30 ml PO DAILY PRN PRN Reason: Constipation Last Admin: 04/17/25 10:24 Dose: 30 ml Modafinil (Modafinil 100 Mg Tablet) 200 mg PO DAILY [facility] Last Admin: 05/02/25 08:11 Dose: 200 mg Naloxone HCl (Naloxone Hcl 0.4 Mg/Ml Vial) 0.04 mg IVPUSH Q5M PRN PRN Reason: Excessive sedation or RR < 8 Nicotine (Nicotine 21 Mg Patch.Td24) 21 mg TRANSDERMA DAILY PRN PRN Reason: nicotine craving Nicotine Polacrilex (Nicotine Polacrilex 2 Mg Gum) 2 mg BUCCAL Q2H PRN PRN Reason: Nicotine Cravings Olanzapine (Olanzapine 5 Mg Tablet) 5 mg PO BID PRN PRN Reason: agitation Ondansetron HCl (Ondansetron Odt 8 Mg Tab.Rapdis) 8 mg TRANSLINGU Q8H PRN PRN Reason: Nausea and Vomiting Polyethylene Glycol (Polyethylene Glycol 3350 17 Gm Powd.Pack) 17 gm PO DAILY PRN PRN Reason: constipation Senna (Sennosides 8.6 Mg Tablet) 17.2 mg PO BEDTIME PRN PRN Reason: Constipation Trazodone HCl (Trazodone Hcl 50 Mg Tablet) 50 mg PO BEDTIME MRX1 PRN PRN Reason: Insomnia Last Admin: 04/05/25 23:14 Dose: 50 mg Exam Exam Date and Time: 05/03/25 0710 Height,Weight and Vital Signs: Height 5 ft 9 in Weight 99.065 kg Last Vital Signs Temp 97 F 05/03/25 06:55 Pulse 62 05/03/25 06:55 Resp 14 05/03/25 06:55 BP 112/71 05/03/25 06:55 Pulse Ox 98 05/03/25 06:15 O2 Del Method Room Air 05/03/25 06:15 O2 Flow Rate 2 04/30/25 10:17 Pertinent Lab Results Pertinent Lab Results: Laboratory Tests 03/26/25 03/26/25 03/27/25 14:42 15:45 08:31 WBC 9.9 RBC 4.34 L Hgb 12.8 L Hct 38.3 L MCV 88.2 MCH 29.5 MCHC 33.4 RDW 14.6 Plt Count 191 MPV 10.6 Immature Gran % (Auto) 0.2 Neut % (Auto) 61.2 Lymph % (Auto) 28.9 Mchenry % (Auto) 8.8 Eos % (Auto) 0.7 Baso % (Auto) 0.2 Lymph # (Auto) 2.9 Mchenry # (Auto) 0.9 Eos # (Auto) 0.1 Baso # (Auto) 0.0 Abs Immat Gran (auto) 0.02 Absolute Neuts (auto) 6.1 Absolute Nucleated RBC 0.000 Nucleated RBC % (auto) 0.0 Sodium 138 143 Potassium 4.4 4.2 Chloride 103 106 Carbon Dioxide 26 23 Anion Gap 13 18 BUN 18 H 16 Creatinine 1.55 H 1.19 Estim Creat Clear Calc 65.6 86.0 Estimated GFR 48 > 60 POC Glucose Random Glucose 93 78 Estimat Average Glucose 91 Hemoglobin A1c % 4.8 Calcium 9.0 9.0 Total Bilirubin 1.1 H AST 28 ALT 11 Alkaline Phosphatase 62 B-Natriuretic Peptide Total Protein 6.0 L Albumin 3.7 Triglycerides 66 Cholesterol 153 LDL Cholesterol, Calc 92 HDL Cholesterol 48 TSH 3.31 Free T4 1.09 Urine Color Yellow Urine Appearance Cloudy Urine pH 5.5 Ur Specific Mcdaniel 1.015 Urine Protein 30 (1+) H Urine Glucose (UA) Negative Urine Ketones Negative Urine Blood Negative Urine Nitrite Negative Ur Leukocyte Esterase Trace H Urine RBC 0-2 Urine WBC 0-5 Ur Squamous Epith Cells 6-10 Urine Bacteria None Seen Hyaline Casts >20 Salicylates < 5.0 L Urine Opiates Screen Not Detected Ur Buprenorphine Scrn Not Detected Ur Oxycodone Screen Not Detected Urine Methadone Screen Not Detected Urine Fentanyl Screen Not Detected Acetaminophen < 3 Ur Barbiturates Screen Not Detected Ur Phencyclidine Scrn Not Detected Ur Amphetamines Screen Not Detected U Benzodiazepines Scrn Not Detected Urine Cocaine Screen Not Detected U Marijuana (THC) Screen Not Detected Ethyl Alcohol < 10 T.pallidum Ab (EIA) Influenza Type A (PCR) NEGATIVE Influenza Type B (PCR) NEGATIVE RSV RNA Qual (PCR) NEGATIVE SARS-CoV-2 RNA (RT-PCR) NEGATIVE 04/06/25 04/07/25 04/07/25 14:28 08:07 21:30 WBC 9.1 RBC 4.59 L Hgb 13.4 L Hct 40.9 L MCV 89.1 MCH 29.2 MCHC 32.8 RDW 14.0 Plt Count 303 D MPV 10.6 Immature Gran % (Auto) 0.4 Neut % (Auto) 58.1 Lymph % (Auto) 32.8 Mchenry % (Auto) 6.4 Eos % (Auto) 2.1 Baso % (Auto) 0.2 Lymph # (Auto) 3.0 Mchenry # (Auto) 0.6 Eos # (Auto) 0.2 Baso # (Auto) 0.0 Abs Immat Gran (auto) 0.04 H Absolute Neuts (auto) 5.3 Absolute Nucleated RBC 0.000 Nucleated RBC % (auto) 0.0 Sodium 143 Potassium 4.6 Chloride 105 Carbon Dioxide 28 Anion Gap 15 BUN 17 H Creatinine 1.35 Estim Creat Clear Calc 75.5 Estimated GFR 56 POC Glucose Random Glucose 96 Estimat Average Glucose Hemoglobin A1c % Calcium 9.4 Total Bilirubin 0.6 AST 26 ALT 23 Alkaline Phosphatase 66 B-Natriuretic Peptide Total Protein 6.4 L Albumin 3.9 Triglycerides Cholesterol LDL Cholesterol, Calc HDL Cholesterol TSH 2.42 Free T4 Urine Color Yellow Urine Appearance Clear Urine pH 6.0 Ur Specific Mcdaniel 1.010 Urine Protein Negative Urine Glucose (UA) Negative Urine Ketones Negative Urine Blood Negative Urine Nitrite Negative Ur Leukocyte Esterase Negative Urine RBC Urine WBC Ur Squamous Epith Cells Urine Bacteria Hyaline Casts Salicylates Urine Opiates Screen Ur Buprenorphine Scrn Ur Oxycodone Screen Urine Methadone Screen Urine Fentanyl Screen Acetaminophen Ur Barbiturates Screen Ur Phencyclidine Scrn Ur Amphetamines Screen U Benzodiazepines Scrn Urine Cocaine Screen U Marijuana (THC) Screen Ethyl Alcohol T.pallidum Ab (EIA) Influenza Type A (PCR) Influenza Type B (PCR) RSV RNA Qual (PCR) SARS-CoV-2 RNA (RT-PCR) 04/10/25 04/20/25 04/23/25 09:18 20:47 10:35 WBC 8.6 RBC 4.73 Hgb 14.0 Hct 41.5 L MCV 87.7 MCH 29.6 MCHC 33.7 RDW 13.2 Plt Count 233 MPV 10.3 Immature Gran % (Auto) 0.5 H Neut % (Auto) 58.3 Lymph % (Auto) 33.4 Mchenry % (Auto) 5.9 Eos % (Auto) 1.6 Baso % (Auto) 0.3 Lymph # (Auto) 2.9 Mchenry # (Auto) 0.5 Eos # (Auto) 0.1 Baso # (Auto) 0.0 Abs Immat Gran (auto) 0.04 H Absolute Neuts (auto) 5.0 Absolute Nucleated RBC 0.000 Nucleated RBC % (auto) 0.0 Sodium 139 Potassium 4.6 Chloride 105 Carbon Dioxide 27 Anion Gap 12 BUN 21 H Creatinine 1.40 Estim Creat Clear Calc 73.3 Estimated GFR 54 POC Glucose 102 Random Glucose 87 Estimat Average Glucose Hemoglobin A1c % Calcium 8.8 D Total Bilirubin 0.8 AST 20 ALT 17 Alkaline Phosphatase 65 B-Natriuretic Peptide < 10 Total Protein 6.0 L Albumin 3.6 Triglycerides Cholesterol LDL Cholesterol, Calc HDL Cholesterol TSH Free T4 Urine Color Urine Appearance Urine pH Ur Specific Mcdaniel Urine Protein Urine Glucose (UA) Urine Ketones Urine Blood Urine Nitrite Ur Leukocyte Esterase Urine RBC Urine WBC Ur Squamous Epith Cells Urine Bacteria Hyaline Casts Salicylates Urine Opiates Screen Ur Buprenorphine Scrn Ur Oxycodone Screen Urine Methadone Screen Urine Fentanyl Screen Acetaminophen Ur Barbiturates Screen Ur Phencyclidine Scrn Ur Amphetamines Screen U Benzodiazepines Scrn Urine Cocaine Screen U Marijuana (THC) Screen Ethyl Alcohol T.pallidum Ab (EIA) Nonreactive Influenza Type A (PCR) Influenza Type B (PCR) RSV RNA Qual (PCR) SARS-CoV-2 RNA (RT-PCR) Airway Mallampati Class: III TM Dist: <=3cm Neck ROM: Limited Partial: Upper Heart: S1S2 Lungs: CTAB Assessment and Plan Assessment Anesthesia Assessment: Anesthesia Plan Discussed and Chart Reviewed Final Anesthetic Review Family History of Problems with Anesthesia: No History of Problems with Anesthesia: No NPO: Yes ASA Class: III Final Preanesthetic Review: No Changes in Pt Med Stat, Meds/Allgs Chart Reviewed, Consent Obtained/Reviewed and Anes Risks/Benef Reviewed Patient Risk: Intermediate Procedure Risk: Low Anesthetic Plan Anesthetic Plan: GA and Agree w/ Assess. and Plan Disposition: Standard PACU
--- NOTE | 2025-05-03 07:18 | MHC.SHP ---
Pre-Procedural Eval Section A - 24 Hr Update-Section A only Date of Service: 05/03/25 The patient is an INPATIENT: Yes Changes since office visit: Yes Patient answered all questions; No Cold of Flu in the past 2 weeks, No New Medical Problems and No Changes in Medication The patient has been examined within 24 hours of the surgical procedure. The History & Physical has been completed within 30 days and I have reviewed it.: Yes Section B - Complete if H&P > 30 days Chief Complaint: SI depression Allergies: Allergies Allergy/AdvReac Type Severity Reaction Status Date / Time pumpkin Allergy Unknown Unknown Verified 12/24/24 12:26 Plan I have reviewed the history and physical and performed a pertinent physical examination on my patient. No changes have occurred unless specified. Time Spent With Patient Time: Total time managing care of this patient today ____ minutes.
--- NOTE | 2025-05-03 07:29 | HO.ECTPROC ---
ECT Procedure Note Diagnosis/Treatment Date of Service: 05/03/25 Diagnosis: Bipolar disorder Previous ECT Date: 04/30/25 Current Treatment Number: 9 Treatment: Series Interval Clinical Notes: Patient with some improvement noted continues with some psychomotor retardation noted prior to exam Time: Total time managing care of this patient today ____ minutes. ECT Settings Device: THYMATRON DGx Electrode Placement: Bifrontal Program/Pulse Width: 0.25 Energy Percent: 75 Seizure Duration By EEG (in seconds): 27 Medications Administration General Anesthetic: Etomidate (18) Muscle Relaxant: Succinylcholine (100) Ancillary Medications Analgesics: Torodol - Post ECT (30) Miscillaneous Medications: Propofol (30) Airway Management Airway Management: Bag Mask Ventilation Treatment Recommendations No Changes Recommended: No change Notes: recommended again to have midline due to difficulty establishing IV access at each treatment Pt Tolerated Procedure w/o Issue: Yes
--- NOTE | 2025-05-03 07:57 | HO.POSTANES ---
Post Anesthesia Evaluation Post Anesthesia Evaluation Date of Service: 05/03/25 Vital Signs: Vital Signs Temp Pulse Resp BP Pulse Ox O2 Del Method O2 Flow Rate 05/03/25 07:45 70 19 129/76 100 Nasal Cannula with ETCO2 3 05/03/25 07:40 97.5 F 73 19 129/80 100 Nasal Cannula with ETCO2 3 05/03/25 07:35 72 19 124/78 100 Nasal Cannula with ETCO2 3 05/03/25 07:32 97.5 F 87 16 148/90 H 100 Nasal Cannula with ETCO2 3 05/03/25 06:55 97 F 62 14 112/71 05/03/25 06:15 97.6 F 69 18 106/64 98 Room Air 05/02/25 20:00 97.4 F 67 16 107/54 L 95 Room Air Anesthesia: General Mental Status: Awake Pain Control: Satisfactory Nausea/Vomiting: None Hydration: Adequate Anesthesia-Related Issues: No Anes. Related Issues
[2025-05-03] MEDS: buPROPion HCl XL 300 MG TAB.ER.24H PO (08:42)
[2025-05-03] MEDS: Aspirin Enteric Coated 81 MG TABLET.DR PO (08:42)
--- NOTE | 2025-05-03 09:31 | PM.CNNEP ---
History of Present Illness Reason for Consult Consult date: 05/03/25 Chief Complaint Chief complaint: SI depression History of Present Illness Narrative: 49 y/o male with hx of CVA, depression, bipolar disorder, hx of gastric sleeve. Nephrology consulted for clearance for midline placement. UA bland on 04/07/25 Creatinine 1.48 in December 2024, 1.19-1.55 in March, 1.4 on 04/23/24. GFR 48-60 Review of Systems Review of Systems Yes all other systems are reviewed and are negative [facility] Past Medical History Medical History Obesity LUIS (obstructive sleep apnea) HLD (hyperlipidemia) HTN (hypertension) CVA (cerebral vascular accident) Social History Social History Household Members: Other Household Members Other:: transitional housing Housing: Other Do you presently have visiting nurse or other home services: No Patient Tobacco Use Status: Never used Tobacco Second Hand Smoke Exposure: Yes Currently Displaying Signs/Symptoms of Drug Intoxication Withdrawal: No Have you been hit, kicked, punched, or otherwise hurt by someone within the past year? If so, by whom?: No Do you feel safe in your current relationship?: No Current Relationship Is there a partner from a previous relationship who is making you feel unsafe now?: No Are you made to feel afraid or neglected: No Advance Directives: No Advance Directives Information Provided: No Do you have thoughts of harming others: None Do you have a plan to hurt others: No Plan Recently lost weight without trying: No Eating poorly because of decreased appetite: No Nutrition Risks: No Nutritional Risk Poor oral hygiene: Yes (very dry scalp) service: No Sexual orientation: Straight/Heterosexual Meds Allergies Allergy/AdvReac Type Severity Reaction Status Date / Time pumpkin Allergy Unknown Unknown Verified 12/24/24 12:26 Active Medications: Current Medications Acetaminophen (Acetaminophen 325 Mg Tablet) 650 mg PO Q6H PRN PRN Reason: Headache/Pain, Scale 1-10 Last Admin: 04/14/25 20:25 Dose: 650 mg Al Hydroxide/Mg Hydroxide (Magnesium Hydrox/Alum Hydrox 30 Ml Oral.Susp) 30 ml PO Q6H PRN PRN Reason: Heartburn/Nausea Aspirin (Aspirin Enteric Coated 81 Mg Tablet.) 81 mg PO DAILY [facility] Last Admin: 05/03/25 08:42 Dose: 81 mg Atorvastatin Calcium (Atorvastatin Calcium 20 Mg Tablet) 20 mg PO BEDTIME [facility] Last Admin: 05/02/25 20:27 Dose: 20 mg Bisacodyl (Bisacodyl 5 Mg Tablet.) 10 mg PO DAILY PRN PRN Reason: severe Constipation Last Admin: 04/20/25 08:57 Dose: 10 mg Bupropion HCl (Bupropion Hcl Xl 300 Mg Tab.Er.24h) 300 mg PO DAILY [facility] Last Admin: 05/03/25 08:42 Dose: 300 mg Docusate Sodium (Docusate Sodium 100 Mg Capsule) 100 mg PO BID PRN PRN Reason: constipation Hydroxyzine HCl (Hydroxyzine Hcl 25 Mg Tablet) 25 mg PO Q6H PRN PRN Reason: mild anxiety Last Admin: 03/26/25 23:24 Dose: 25 mg Lurasidone HCl (Lurasidone Hcl 40 Mg Tablet) 40 mg PO DAILY@1700 [facility] Last Admin: 05/02/25 17:49 Dose: 40 mg Magnesium Hydroxide (Milk Of Magnesia 30 Ml Oral.Susp) 30 ml PO DAILY PRN PRN Reason: Constipation Last Admin: 04/17/25 10:24 Dose: 30 ml Modafinil (Modafinil 100 Mg Tablet) 200 mg PO DAILY [facility] Last Admin: 05/03/25 08:42 Dose: 200 mg Naloxone HCl (Naloxone Hcl 0.4 Mg/Ml Vial) 0.04 mg IVPUSH Q5M PRN PRN Reason: Excessive sedation or RR < 8 Nicotine (Nicotine 21 Mg Patch.Td24) 21 mg TRANSDERMA DAILY PRN PRN Reason: nicotine craving Nicotine Polacrilex (Nicotine Polacrilex 2 Mg Gum) 2 mg BUCCAL Q2H PRN PRN Reason: Nicotine Cravings Olanzapine (Olanzapine 5 Mg Tablet) 5 mg PO BID PRN PRN Reason: agitation Ondansetron HCl (Ondansetron Odt 8 Mg Tab.Rapdis) 8 mg TRANSLINGU Q8H PRN PRN Reason: Nausea and Vomiting Polyethylene Glycol (Polyethylene Glycol 3350 17 Gm Powd.Pack) 17 gm PO DAILY PRN PRN Reason: constipation Senna (Sennosides 8.6 Mg Tablet) 17.2 mg PO BEDTIME PRN PRN Reason: Constipation Trazodone HCl (Trazodone Hcl 50 Mg Tablet) 50 mg PO BEDTIME MRX1 PRN PRN Reason: Insomnia Last Admin: 04/05/25 23:14 Dose: 50 mg Physical Exam Vital Signs: Last Vital Signs Temp 97.8 F 05/03/25 08:46 Pulse 68 05/03/25 08:46 Resp 20 05/03/25 08:46 BP 115/72 05/03/25 08:46 Pulse Ox 100 05/03/25 08:45 O2 Del Method Room Air 05/03/25 08:45 O2 Flow Rate 3 05/03/25 07:45 BMI result Body Mass Index 32.2 Const General: no acute distress, alert and awake Resp Effort & Inspection: normal respiratory effort Results Lab Results 04/23/25 10:35 04/23/25 10:35 Assessment and Plan (1) CKD (chronic kidney disease): Qualifiers: Chronic kidney disease stage: stage 3 (moderate) Chronic kidney disease stage 3 subtype: stage 3a (GFR 45-59) Qualified Code(s): N18.31 - Chronic kidney disease, stage 3a Status: Acute Plan Patient likely has some mild chronic kidney disease, 3a no proteinuria on most recent UA patient has mild renal disease, given medical history has low risk of developing ESRD requiring dialysis- ok for midline placement. Discussed with Dr Moody. Procedures Date of Service Date of Service: 05/03/25
--- NOTE | 2025-05-03 12:28 | HO.PSYCHPN ---
Subjective Subjective Date of Service: 05/03/25 Reason For Visit: SI depression Interim History: lying in bed. no change in presentation. says his mood continues improved. per staff, dep 8 anx 3. no SI/HI/AVH. slept 8 hours. ECT this morning. Mental Status Exam Mental Status Exam Narrative: Appearance: Casually dressed, adequately groomed Behavior: Calm and cooperative, PMR Eye contact is fair Speech: soft, slowed, flattened prosody. Thought process logical and goal-directed Thought content: On treatment. Mood: OK. better. Affect: constricted, normo-intense SI: none expressed HI: none expressed VH/AH: none expressed Delusions: None expressed Insight/judgment: impaired Diagnostics Vital Signs (24Hr): Vital Signs - 24 hr 05/02/25 20:00 05/03/25 06:15 05/03/25 06:55 Temperature 97.4 F 97.6 F 97 F Pulse Rate 67 69 62 Respiratory Rate 16 18 14 Blood Pressure 107/54 L 106/64 112/71 Pulse Oximetry 95 98 Oxygen Delivery Method Room Air Room Air Oxygen Flow Rate 05/03/25 07:32 05/03/25 07:35 05/03/25 07:40 Temperature 97.5 F 97.5 F Pulse Rate 87 72 73 Respiratory Rate 16 19 19 Blood Pressure 148/90 H 124/78 129/80 Pulse Oximetry 100 100 100 Oxygen Delivery Method Nasal Cannula with ETCO2 Nasal Cannula with ETCO2 Nasal Cannula with ETCO2 Oxygen Flow Rate 3 3 3 05/03/25 07:45 05/03/25 08:00 05/03/25 08:15 Temperature Pulse Rate 70 67 63 Respiratory Rate 19 19 16 Blood Pressure 129/76 123/67 125/72 Pulse Oximetry 100 100 100 Oxygen Delivery Method Nasal Cannula with ETCO2 Room Air Room Air Oxygen Flow Rate 3 05/03/25 08:45 05/03/25 08:45 05/03/25 08:46 Temperature 97.8 F 97.8 F 97.8 F Pulse Rate 68 68 68 Respiratory Rate 20 20 20 Blood Pressure 115/72 115/72 115/72 Pulse Oximetry 100 100 Oxygen Delivery Method Room Air Room Air Oxygen Flow Rate BMI result Body Mass Index 32.2 Labs 04/23/25 10:35 04/23/25 10:35 Imaging Radiology Impressions: ITS Impressions Head CT 04/06/25 13:54 IMPRESSION: No acute intracranial hemorrhage. Bifrontal bitemporal lobes atrophy. Electronically signed by: Roque Guillen MD 04/06/2025 02:15 PM EDT Medications Medications Current Medications Acetaminophen (Acetaminophen 325 Mg Tablet) 650 mg PO Q6H PRN PRN Reason: Headache/Pain, Scale 1-10 Last Admin: 04/14/25 20:25 Dose: 650 mg Al Hydroxide/Mg Hydroxide (Magnesium Hydrox/Alum Hydrox 30 Ml Oral.Susp) 30 ml PO Q6H PRN PRN Reason: Heartburn/Nausea Aspirin (Aspirin Enteric Coated 81 Mg Tablet.) 81 mg PO DAILY [facility] Last Admin: 05/03/25 08:42 Dose: 81 mg Atorvastatin Calcium (Atorvastatin Calcium 20 Mg Tablet) 20 mg PO BEDTIME [facility] Last Admin: 05/02/25 20:27 Dose: 20 mg Bisacodyl (Bisacodyl 5 Mg Tablet.) 10 mg PO DAILY PRN PRN Reason: severe Constipation Last Admin: 04/20/25 08:57 Dose: 10 mg Bupropion HCl (Bupropion Hcl Xl 300 Mg Tab.Er.24h) 300 mg PO DAILY [facility] Last Admin: 05/03/25 08:42 Dose: 300 mg Docusate Sodium (Docusate Sodium 100 Mg Capsule) 100 mg PO BID PRN PRN Reason: constipation Hydroxyzine HCl (Hydroxyzine Hcl 25 Mg Tablet) 25 mg PO Q6H PRN PRN Reason: mild anxiety Last Admin: 03/26/25 23:24 Dose: 25 mg Lurasidone HCl (Lurasidone Hcl 40 Mg Tablet) 40 mg PO DAILY@1700 [facility] Last Admin: 05/02/25 17:49 Dose: 40 mg Magnesium Hydroxide (Milk Of Magnesia 30 Ml Oral.Susp) 30 ml PO DAILY PRN PRN Reason: Constipation Last Admin: 04/17/25 10:24 Dose: 30 ml Modafinil (Modafinil 100 Mg Tablet) 200 mg PO DAILY [facility] Last Admin: 05/03/25 08:42 Dose: 200 mg Naloxone HCl (Naloxone Hcl 0.4 Mg/Ml Vial) 0.04 mg IVPUSH Q5M PRN PRN Reason: Excessive sedation or RR < 8 Nicotine (Nicotine 21 Mg Patch.Td24) 21 mg TRANSDERMA DAILY PRN PRN Reason: nicotine craving Nicotine Polacrilex (Nicotine Polacrilex 2 Mg Gum) 2 mg BUCCAL Q2H PRN PRN Reason: Nicotine Cravings Olanzapine (Olanzapine 5 Mg Tablet) 5 mg PO BID PRN PRN Reason: agitation Ondansetron HCl (Ondansetron Odt 8 Mg Tab.Rapdis) 8 mg TRANSLINGU Q8H PRN PRN Reason: Nausea and Vomiting Polyethylene Glycol (Polyethylene Glycol 3350 17 Gm Powd.Pack) 17 gm PO DAILY PRN PRN Reason: constipation Senna (Sennosides 8.6 Mg Tablet) 17.2 mg PO BEDTIME PRN PRN Reason: Constipation Trazodone HCl (Trazodone Hcl 50 Mg Tablet) 50 mg PO BEDTIME MRX1 PRN PRN Reason: Insomnia Last Admin: 04/05/25 23:14 Dose: 50 mg Allergies Allergies Allergy/AdvReac Type Severity Reaction Status Date / Time pumpkin Allergy Unknown Unknown Verified 12/24/24 12:26 Assessment & Plan Assessment & Plan (1) CKD (chronic kidney disease): Qualifiers: Chronic kidney disease stage: stage 3 (moderate) Chronic kidney disease stage 3 subtype: stage 3a (GFR 45-59) Qualified Code(s): N18.31 - Chronic kidney disease, stage 3a Status: Acute Code(s): N18.9 - Chronic kidney disease, unspecified Assessment and Plan: Patient likely has some mild chronic kidney disease, 3a no proteinuria on most recent UA patient has mild renal disease, given medical history has low risk of developing ESRD requiring dialysis- ok for midline placement. Discussed with Dr Moody. (2) Depression: Qualifiers: Depression Type: unspecified Qualified Code(s): F32.A - Depression, unspecified Status: Acute Code(s): F32.A - Depression, unspecified Plan 03/27: feels latuda 120 has been helpful. however, remains depressed. add wellbutrin XL 150 daily for depression, plan to increase to 300 mg daily in 3 days. may also consider ECT due to lack of improvement despite numerous recent hospitalizations + lethality of suicide attempts + recent self-abnegating behaviors. 03/28: no change in presentation, no requests or complaints. started wellbutrin 150 today. continue current mgmt 03/29/25: Slept well, no issues with appetite. Observed out on the unit, attended groups, engaging. Reports depression and 03/21, denies anxiety. Constricted affect, congruent with mood. Denies safety concerns. Compliant with medications. Denies side effects from Wellbutrin. Continue to encourage groups. 03/30/25: Patient slept for 6 hours, was medication compliant. He attended 2 groups yesterday, however today he is more isolated, in bed a lot more time, declines a couple groups. Reports depressed but no anxiety, flat affect, depressed, but cooperative during one-to-one assessment. He is receptive with the plan of Wellbutrin increased up to 300 mg for depression. Reports passive SI, denies plan or intention. Denies other safety concerns. Encourage patient to go to groups and shower daily. Increase Wellbutrin XL to 300 mg daily for depression. He reported that he has bipolar type II. 03/31: Laying in bed. keeping to self. showered. patient reports feeling depressed ; pt stated, I'm not having a good day. I don't want to do anything . flat affect. denies SI/HI/VH/AH. Per nursing, slept 8 hours. encouraged to attend groups. continue current tx plan. 04/01/25: Patient slept for 8 hours, poor meal intake yesterday but was medication compliant. Denies side effects. When asked about if he has poor appetite as he ate only 50 of breakfast, and 25 for lunch and not eating dinner, he said because I did not do the menu, so I got what I do not like . He shower yesterday, continued to reports depression 03/21. Denied anxiety. He does not feel any difference from Wellbutrin 150 when and when it was increased up to 300 mg. Denies SI/SIB/HI/AVH, isolative self, he plans to attend groups today. This provider spoke with patient in length regarding medication trials. Per his report, has been trying so many antidepressants they just do not work, and continued to be depressed. Some of them are Zoloft, Paxil, Effexor, Celexa, Prozac, Cymbalta, Lexapro. He also having history of taking Zyprexa more than 20 years ago due to hearing voices. Then the voices was calm. He never has a take it again after. History of Abilify but not sure if it is working as he can not recall. Regarding ADLs: He said that [facility], but he is not showering for many days despite the fact that staff asked him to do so I just do not care about being clean . Reports very low energy, low motivation, been increased suicidal thoughts and depression. He used to love music and reading but not interested in doing anything like that anymore. Reported that he had gastric sleeve surgery back in August 2023 which he lost 230 lb. He weight 447 lb prior to the surgery. He identified that after the surgery he has been more depressed slowly over months. There was a time that he wanted to starve myself so I can when asked is that you that he has stopped eating at home. He also identified that he feel more depressed after surgery as he is not able to over eating like he did before. Family mental health illnesses: Reports that who both of his parents was depressed. Mom 11 years ago. 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 History of ECTs: Reports he had history of ECTs in 2010 when he was at in [facility].He felt worse after the treatment everything seems like a dream . He clarified that immediately after the treatment he feel that way which could be a side effects of ECT but not permanent. Educate patient on possible side effects ECTs. Patient denies having seizure during ECTs treatment, no seizure history no cardiac conditions/disease history. Reports history of hypertension, but not anymore. He also has been admitted to different hospitals for psychiatric admissions in the past couple of months. Reports staying at [facility] in December for a month. [facility] in the area names [facility]) in October for another month. Per email from his OP team- clinical director at [facility], they also express concerns of patient's conditions. It is noted that their concerns are very consistent with patient' report here on the unit. He also has been admitted to different hospitals for psychiatric admissions in the past couple of months. Reports staying at [facility] in December for a month. [facility] in the area names [facility]) in October for another month. Per email from his OP team- clinical director at [facility], they also express concerns of patient's conditions. It is noted that their concerns are very consistent with patient' report here on the unit. Alfredito has been in and out on inpatient level of care since October of this year, I believe every month, for a majority of the time. He was recently discharged from [facility] after a 1 month stay and within two hours of returning home wanted to return to the hospital, saying he was unwell, and within one day was sectioned by [facility], which is how he ended up with you now. He has been coming home and intentionally starving himself, even not eating for up to 1 week. We have known Alfredito for years and since this started in October, we have seen no significant improvement in his mental health or a return to baseline. In fact, we are observing his case as consistent with failure to thrive. We have been asking for him to be inpatient at [facility] or with you at [facility] for some time in order for him to be potentially considered for ECT level of treatment, if deemed appropriate. Multiple medication trials failture to target depressive symptoms. He will be a good candidate to get trial ECT treatment in combination with current medication regimens. Patient also agrees with the plan. We would start the treatment as soon as possible. Will discuss the case with in house psychiatrist-Dr. Ward to prepare for ECT treatment. Hope to start early next week. 04/02: Laying in bed. keeping to self. Patient continues to report feeling depressed; pt stated, I feel about the same. I spoke with the other provider and agreed to do ECT . He reports sleeping well. denies SI/HI/VH/AH. Encouraged to attend groups and shower. Continue current tx plan. 04/03: no changes- just started wellbutrin 04/04: no changes 04/05/25: report anxiety a 2-3/10 but still 810 for depression. No change since started Wellbutrin. He agrees to get Wellbutrin up to 450mg daily for depression. Isolative in room, staring up to the ceiling. Discuss with patient of option to start on Intuniv for severe depression. Patient declines it at this current time but agree to see Welbutrin increased would be helpful. He agrees with ECT. Encourage groups, he says he was at art group out to dinning area but there are too much so he went back to his room. Report not many groups offered over the weekends. 04/06/25: Patient slept for 6 hours, have a sleep study done last night. Reported that he did not sleep well. Appetite is okay. Mood is depressed 8/10, denies anxiety today. Denies suicidal thoughts, but reports he has passive SI yesterday intrusive, just do not Wanna live anymore . Denies hallucinations. Address with patient of why he having bowel movement in the shower. He said it is just one episode. Reports he feel constipated. Agree with Colace. He also inform regarding the ECT which was approved by the insurance. He compliant with medication, however reports he has not feeling any difference in terms of depression at since started on Wellbutrin. Encourage groups attendance. Observe him later on during the day reading at a table in dining area. Colace 100mg BID for constipation. ECT consult placed: Patient may be seen by tomorrow by Dr. Ward. Procedure done preparing for the ECT: Head CT scan negative, EKG normal sinus rhythm, Incomplete right bundle branch block. Borderline ECG_ no change when compare to previous EKG. Unremarkable CBC with diff. 04/07/25: Per hospitalist note: ECT risk stratification Patient without previous problems with anesthesia, has previously undergone ECT RCRI 0 points, no further cardiac workup or treatment indicated at this time EKG showed QT interval WNL, no evidence of ischemic changes Based on stated PMH, HPI, and physical exam, there are no apparent medical contraindications to the planned procedure. Patient is complaining of pelvic discomfort and constipation. We will add therapy with Senokot, MiraLax and obtain urinalysis to assess for urinary tract infection. Continue treatment with atorvastatin and aspirin for history of stroke and hyperlipidemia. 04/07/25: Patient compliant with medication, reports due to the pain abdominal, he could not sleep well last night. Continued to reports depressions 8/10, anxiety 4/10 today related to the pain. Denies suicidal thoughts or voices, isolated. Shower yesterday. Review with patient test need to be done prior to having ECT. Patient met with Dr. Ward and hospitalist for ECT clearance. Due to the pain, constipated, more laxative ordered today. Also UA other by hospitalist to rule out any infection. He is flat, low energy, low motivation, withdrawal, in room mostly, but come out to other rooms to talk to the providers 04/08/25: Patient slept for 8 hours, compliant with medications, denies side effect. Met with him in his room, reported that he slept better last night, having good bowel movement, denies diarrhea is. Informed him regarding the labs work/and UA that was negative to rule out UTI. Denies pain. Explained to patient regarding pre ECT procedures/test to prepare for the day that he going to start. We will start ECT on Saturday. Per Dr. Ward, we will taper down on Latuda, start him on Modafinil low dose to help with severe depression. Continued to reports moderate to severe depression. Denies suicidal thoughts or hallucinations. 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 He denied any significant or excessive drug exposure. I do not find any focal lesion, acute or chronic, suggestive of stroke. There was no contraindication to treatment with ECT. Otherwise treatment of this condition is supportive, symptomatic and conservative Taper down on Latuda from 120 down to 100 mg daily at 17:00 for mood. Start on Modefinil 100ng daily for severe depression, low energy, poor concentration, poor motivation. ECT will be scheduled next week on Saturday. We will received treatment for Saturday/Saturday and Saturday. 04/09/25: Patient denies pain, normal bowel movement, slept well and compliant with medications. Denies side effects. Denies suicidal thoughts or hallucinations but reports mild on anxiety and moderate to severe depression. Patient appeared to be disheveled. Encourage patient to be out of bed in attended to groups included OT groups which observe he is visible in day room after the conversation. The OT will do the [facility] for pre ECT next week on Saturday prior the ECT. He started modafinil 50 mg this morning. Indication and side effects explained to patient. Patient is receptive with the plan. Correction: Modefinill 50mg daily. MOCA scheduled next week prior to ECT. 04/10:Laying in bed most of morning. Patient continues to report feeling depressed. He reports looking forward to ECT; pt stated, I think it will be a positive step to get ECT . denies SI/HI/VH/AH. Encouraged to get out of bed. Continue tx plan 04/11: Per nursing, pt did not get out of bed yesterday. Observed laying in bed this morning; encouraged to attend groups and shower. Patient continues to report feeling depressed. denies SI/HI/VH/AH. Encouraged to get out of bed. Continue tx plan. 04/12: continue current tx plan 04/13: stably depressed. PMR. start ECT tomorrow, otherwise continue current mgmt. NPO past MN. 04/14/25: got his first ECT treatment this afternoon. Patient slept for 6 hours, was medication compliant. However, this morning due to the delay of the ECT treatment, he was not happy about the delay into the afternoon. He appeared to be frustrated, irritable, and not cooperative with this provider I do not want to talk to anyone . I am done talking . I do not care when asked his last bowel movement. Per nursing, patient denies suicidal thoughts, other safety concerns. Reports he has no bowel movement x4 days. Medication this morning was held until after the ECT. He also was given citrate magnesium x1. Pending effect. 04/15: made bowel movement. ECT #2 tomorrow. no change in mood or presentation as of today. T/C increasing modafanil to 200 mg sometime next week. 04/16: completed ECT without incident. no FLOWERS today. no change in presentation otherwise. continue current mgmt. ECT #3 saturday. 04/17/2025: No changes. ECT # 3 Saturday04/19/202504/18: no changes 04/19: completed ECT #3 today. no FLOWERS, no change in presentation, no change in mood. continue current mgmt. T/C modafanil increase. 04/20: mood starting to improve. laughed, affect brighter and more flexible. ECT tomorrow, NPO after midnight. continue current mgmt otherwise. 04/21: irritable at afternoon ECT. short today. continue current mgmt. 04/22: not irritable, appears depressed, says mood is unchanged. ECT tomorrow. continue current mgmt. strongly consider increase in modafanil dosing. 04/23/2025: Patient seen ECT completed bilaterally. Patient with markedly poor ADLs almost catatonic like allowing himself to be covered in feces not showering or caring for himself. Change ECT to 0.25 would follow-up on response to bilateral treatment if to withdrawn would may be secondary to bilateral and might consider return to right unilateral. Wellbutrin lowered to 300 mg modafinil was started at 100 mg can consider increase to 150 mg targeting apathy lethargy. Patient started on lorazepam 1 mg p.o. t.i.d. had test doses and seemed significantly improved with more fluid speech and increase range of affect hold lorazepam night prior to ECT 04/24/25: Patient slept for 8 hours, no appetite issues. Denies SI/SIB/HI/AVH. Report anxiety a /10 and anxiety an 03/21 which he says he does not feel much different yet from ECT. He denies short term memory. He denies FLOWERS or tireness now but says shortly after ECT he had FLOWERS from yesterday which has been gone. He reports normal BM which laxative was held yesterday. Observed patient spent couple hours in dinning areas, eating out in activity room and spent time watching TV. Nursing also reports patient attended group in the art room as well. He also showered yesterday. He is visible, but quiet keep to self, flat affect, depressed mood. Slightly improvement compare to last visit that this provider saw him about 1-2 weeks ago. Ativan started yesterday which seem to have some effects. 04/25/25: Patient slept for 8 hours, compliant with medications, denies side effects. Deny feeling tired on Ativan. Per nursing patient have incident of incontinence of feces yesterday. Therefore Colace and MiraLax and senna has been held. Notes on to hold when has loose stools. Patient denies safety concerns. Reported the same anxiety and depression level. He is more in bed today compared to yesterday but was out for meals. Flat affect, fair eye contact, resting in room. Attended no groups. No changes in terms of mental status. May have ECT on Saturday morning. 04/26: in bed after ECT. flat, withdrawn, slowed, soft. states his mood remains the same as before, no better and no worse. agreeable to increase modafanil to 150 mg. no apparent cognitive or memory deficits. 04/27: perhaps less slowed than recently. hold ativan this afternoon and overnight. NPO past MN. continue bifrontal ECT in the morning. 04/28: faster and more flexible affect. feels he is improving. decrease ativan from 1 mg TID to 0.5 mg TID. otherwise continue current mgmt. 04/29: as for yesterday. continue current mgmt. hold ativan after 3, NPO after MN. ECT in the morning. 04/30: ECT today uneventful. increase modafanil to 200 tomorrow. DC ativan after saturday morning dose. ECT saturday. NPO past MN saturday. otherwise continue current mgmt. 05/01: Continue current management and treatment plan. 05/02: continue current management and treatment plan. 05/03: ECT #9 completed uneventfully this morning. mood remains improved but pt still spending much of the day in bed with depressive facies. continue current mgmt. Reason for continued inpatient stay Substantial Risk for: rapid decompensation Time Spent With Patient Time: Total time managing care of this patient today __25__ minutes.
[2025-05-04 07:36] VITALS: BP 110/69; PULSE 60; RESP 20; TEMP 36.3; O2SAT 98
[2025-05-04] MEDS: buPROPion HCl XL 300 MG TAB.ER.24H PO (08:32)
[2025-05-04] MEDS: Aspirin Enteric Coated 81 MG TABLET.DR PO (08:32)
--- NOTE | 2025-05-04 09:48 | HO.MIDLINE ---
Midline Insertion MIDLINE INSERTION Diagnosis: depression Indication: ECT Pertinent Labs: reviewed Technique: Using sterile technique including cap and mask, glove and drape, the right arm was prepped and draped in the usual sterile fashion of full barrier technique with CHG. Using ultrasound guidance, right brachial vein access was obtained . 20G x 8CM powerglide ST midline catheter was positioned. The procedure was performed in 272. Ultrasound was used to document vein patency and for needle entry. A formal ultrasound picture was recorded. [employer] has released the line for use and it is currently dressed with a StatLock, Tegaderm, and CHG disc. Verification has been performed for blood return and line patency. Arm Circumference: 30cm Equipment: Bard PowerGlide ST Catheter Type: 20g x 8cm Lot #: [id number]
--- NOTE | 2025-05-04 14:15 | HO.PSYCHPN ---
Subjective Subjective Date of Service: 05/04/25 Reason For Visit: SI depression Interim History: in bed, awake, more expressive. denies issues. says mood still improved. midline placed. per staff, dep 7 anx 3. taking meds. irritable eves. slept 8 hours. Mental Status Exam Mental Status Exam Narrative: Appearance: Casually dressed, poorly groomed Behavior: Calm and cooperative, PMR Eye contact is fair Speech: soft, slowed, flattened prosody. Thought process logical and goal-directed Thought content: On treatment. Mood: better. Affect: more flexible, normo-intense SI: none expressed HI: none expressed VH/AH: none expressed Delusions: None expressed Insight/judgment: impaired Diagnostics Vital Signs (24Hr): Vital Signs - 24 hr 05/03/25 20:00 05/04/25 07:36 Temperature 97.5 F 97.4 F Pulse Rate 68 60 Respiratory Rate 20 20 Blood Pressure 118/72 110/69 Pulse Oximetry 100 98 Oxygen Delivery Method Room Air Room Air BMI result Body Mass Index 32.2 Labs 04/23/25 10:35 04/23/25 10:35 Imaging Radiology Impressions: ITS Impressions Head CT 04/06/25 13:54 IMPRESSION: No acute intracranial hemorrhage. Bifrontal bitemporal lobes atrophy. Electronically signed by: Roque Guillen MD 04/06/2025 02:15 PM EDT Medications Medications Current Medications Acetaminophen (Acetaminophen 325 Mg Tablet) 650 mg PO Q6H PRN PRN Reason: Headache/Pain, Scale 1-10 Last Admin: 04/14/25 20:25 Dose: 650 mg Al Hydroxide/Mg Hydroxide (Magnesium Hydrox/Alum Hydrox 30 Ml Oral.Susp) 30 ml PO Q6H PRN PRN Reason: Heartburn/Nausea Aspirin (Aspirin Enteric Coated 81 Mg Tablet.) 81 mg PO DAILY [facility] Last Admin: 05/04/25 08:32 Dose: 81 mg Atorvastatin Calcium (Atorvastatin Calcium 20 Mg Tablet) 20 mg PO BEDTIME JENNIFER Last Admin: 05/03/25 20:55 Dose: 20 mg Bisacodyl (Bisacodyl 5 Mg Tablet.) 10 mg PO DAILY PRN PRN Reason: severe Constipation Last Admin: 04/20/25 08:57 Dose: 10 mg Bupropion HCl (Bupropion Hcl Xl 300 Mg Tab.Er.24h) 300 mg PO DAILY [facility] Last Admin: 05/04/25 08:32 Dose: 300 mg Docusate Sodium (Docusate Sodium 100 Mg Capsule) 100 mg PO BID PRN PRN Reason: constipation Hydroxyzine HCl (Hydroxyzine Hcl 25 Mg Tablet) 25 mg PO Q6H PRN PRN Reason: mild anxiety Last Admin: 03/26/25 23:24 Dose: 25 mg Lurasidone HCl (Lurasidone Hcl 40 Mg Tablet) 40 mg PO DAILY@1700 [facility] Last Admin: 05/03/25 18:41 Dose: 40 mg Magnesium Hydroxide (Milk Of Magnesia 30 Ml Oral.Susp) 30 ml PO DAILY PRN PRN Reason: Constipation Last Admin: 04/17/25 10:24 Dose: 30 ml Modafinil (Modafinil 100 Mg Tablet) 200 mg PO DAILY [facility] Last Admin: 05/04/25 08:32 Dose: 200 mg Naloxone HCl (Naloxone Hcl 0.4 Mg/Ml Vial) 0.04 mg IVPUSH Q5M PRN PRN Reason: Excessive sedation or RR < 8 Nicotine (Nicotine 21 Mg Patch.Td24) 21 mg TRANSDERMA DAILY PRN PRN Reason: nicotine craving Nicotine Polacrilex (Nicotine Polacrilex 2 Mg Gum) 2 mg BUCCAL Q2H PRN PRN Reason: Nicotine Cravings Olanzapine (Olanzapine 5 Mg Tablet) 5 mg PO BID PRN PRN Reason: agitation Ondansetron HCl (Ondansetron Odt 8 Mg Tab.Rapdis) 8 mg TRANSLINGU Q8H PRN PRN Reason: Nausea and Vomiting Polyethylene Glycol (Polyethylene Glycol 3350 17 Gm Powd.Pack) 17 gm PO DAILY PRN PRN Reason: constipation Senna (Sennosides 8.6 Mg Tablet) 17.2 mg PO BEDTIME PRN PRN Reason: Constipation Sodium Chloride (0.9 % Sodium Chloride Flush 10 Ml Syringe) [address] [facility] Trazodone HCl (Trazodone Hcl 50 Mg Tablet) 50 mg PO BEDTIME MRX1 PRN PRN Reason: Insomnia Last Admin: 04/05/25 23:14 Dose: 50 mg Allergies Allergies Allergy/AdvReac Type Severity Reaction Status Date / Time pumpkin Allergy Unknown Unknown Verified 12/24/24 12:26 Assessment & Plan Assessment & Plan (1) CKD (chronic kidney disease): Qualifiers: Chronic kidney disease stage: stage 3 (moderate) Chronic kidney disease stage 3 subtype: stage 3a (GFR 45-59) Qualified Code(s): N18.31 - Chronic kidney disease, stage 3a Status: Acute Code(s): N18.9 - Chronic kidney disease, unspecified Assessment and Plan: Patient likely has some mild chronic kidney disease, 3a no proteinuria on most recent UA patient has mild renal disease, given medical history has low risk of developing ESRD requiring dialysis- ok for midline placement. Discussed with Dr Moody. (2) Depression: Qualifiers: Depression Type: unspecified Qualified Code(s): F32.A - Depression, unspecified Status: Acute Code(s): F32.A - Depression, unspecified (3) CVA (cerebral vascular accident): Status: Acute Code(s): I63.9 - Cerebral infarction, unspecified Plan 03/27: feels latuda 120 has been helpful. however, remains depressed. add wellbutrin XL 150 daily for depression, plan to increase to 300 mg daily in 3 days. may also consider ECT due to lack of improvement despite numerous recent hospitalizations + lethality of suicide attempts + recent self-abnegating behaviors. 03/28: no change in presentation, no requests or complaints. started wellbutrin 150 today. continue current mgmt 03/29/25: Slept well, no issues with appetite. Observed out on the unit, attended groups, engaging. Reports depression and 03/21, denies anxiety. Constricted affect, congruent with mood. Denies safety concerns. Compliant with medications. Denies side effects from Wellbutrin. Continue to encourage groups. 03/30/25: Patient slept for 6 hours, was medication compliant. He attended 2 groups yesterday, however today he is more isolated, in bed a lot more time, declines a couple groups. Reports depressed but no anxiety, flat affect, depressed, but cooperative during one-to-one assessment. He is receptive with the plan of Wellbutrin increased up to 300 mg for depression. Reports passive SI, denies plan or intention. Denies other safety concerns. Encourage patient to go to groups and shower daily. Increase Wellbutrin XL to 300 mg daily for depression. He reported that he has bipolar type II. 03/31: Laying in bed. keeping to self. showered. patient reports feeling depressed ; pt stated, I'm not having a good day. I don't want to do anything . flat affect. denies SI/HI/VH/AH. Per nursing, slept 8 hours. encouraged to attend groups. continue current tx plan. 04/01/25: Patient slept for 8 hours, poor meal intake yesterday but was medication compliant. Denies side effects. When asked about if he has poor appetite as he ate only 50 of breakfast, and 25 for lunch and not eating dinner, he said because I did not do the menu, so I got what I do not like . He shower yesterday, continued to reports depression 03/21. Denied anxiety. He does not feel any difference from Wellbutrin 150 when and when it was increased up to 300 mg. Denies SI/SIB/HI/AVH, isolative self, he plans to attend groups today. This provider spoke with patient in length regarding medication trials. Per his report, has been trying so many antidepressants they just do not work, and continued to be depressed. Some of them are Zoloft, Paxil, Effexor, Celexa, Prozac, Cymbalta, Lexapro. He also having history of taking Zyprexa more than 20 years ago due to hearing voices. Then the voices was calm. He never has a take it again after. History of Abilify but not sure if it is working as he can not recall. Regarding ADLs: He said that he had food at the long term twice a day, but he is not showering for many days despite the fact that staff asked him to do so I just do not care about being clean . Reports very low energy, low motivation, been increased suicidal thoughts and depression. He used to love music and reading but not interested in doing anything like that anymore. Reported that he had gastric sleeve surgery back in August 2023 which he lost 230 lb. He weight 447 lb prior to the surgery. He identified that after the surgery he has been more depressed slowly over months. There was a time that he wanted to starve myself so I can when asked is that you that he has stopped eating at home. He also identified that he feel more depressed after surgery as he is not able to over eating like he did before. Family mental health illnesses: Reports that who both of his parents was depressed. Mom 11 years ago. 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 History of ECTs: Reports he had history of ECTs in 2010 when he was at in [facility].He felt worse after the treatment everything seems like a dream . He clarified that immediately after the treatment he feel that way which could be a side effects of ECT but not permanent. Educate patient on possible side effects ECTs. Patient denies having seizure during ECTs treatment, no seizure history no cardiac conditions/disease history. Reports history of hypertension, but not anymore. He also has been admitted to different hospitals for psychiatric admissions in the past couple of months. Reports staying at [facility] in December for a month. [facility] in the area names [facility]) in October for another month. Per email from his OP team- clinical director at [facility], they also express concerns of patient's conditions. It is noted that their concerns are very consistent with patient' report here on the unit. He also has been admitted to different hospitals for psychiatric admissions in the past couple of months. Reports staying at [facility] in December for a month. [facility] in the area names [facility]) in October for another month. Per email from his OP team- clinical director at [facility], they also express concerns of patient's conditions. It is noted that their concerns are very consistent with patient' report here on the unit. Alfredito has been in and out on inpatient level of care since October of this year, I believe every month, for a majority of the time. He was recently discharged from [facility] after a 1 month stay and within two hours of returning home wanted to return to the hospital, saying he was unwell, and within one day was sectioned by [facility], which is how he ended up with you now. He has been coming home and intentionally starving himself, even not eating for up to 1 week. We have known Alfredito for years and since this started in October, we have seen no significant improvement in his mental health or a return to baseline. In fact, we are observing his case as consistent with failure to thrive. We have been asking for him to be inpatient at [facility] or with you at [facility] for some time in order for him to be potentially considered for ECT level of treatment, if deemed appropriate. Multiple medication trials failture to target depressive symptoms. He will be a good candidate to get trial ECT treatment in combination with current medication regimens. Patient also agrees with the plan. We would start the treatment as soon as possible. Will discuss the case with in house psychiatrist-Dr. Ward to prepare for ECT treatment. Hope to start early next week. 04/02: Laying in bed. keeping to self. Patient continues to report feeling depressed; pt stated, I feel about the same. I spoke with the other provider and agreed to do ECT . He reports sleeping well. denies SI/HI/VH/AH. Encouraged to attend groups and shower. Continue current tx plan. 04/03: no changes- just started wellbutrin 04/04: no changes 04/05/25: report anxiety a 2-3 but still 03/21 for depression. No change since started Wellbutrin. He agrees to get Wellbutrin up to 450mg daily for depression. Isolative in room, staring up to the ceiling. Discuss with patient of option to start on Intuniv for severe depression. Patient declines it at this current time but agree to see Welbutrin increased would be helpful. He agrees with ECT. Encourage groups, he says he was at art group out to dinning area but there are too much so he went back to his room. Report not many groups offered over the weekends. 04/06/25: Patient slept for 6 hours, have a sleep study done last night. Reported that he did not sleep well. Appetite is okay. Mood is depressed 03/21, denies anxiety today. Denies suicidal thoughts, but reports he has passive SI yesterday intrusive, just do not Wanna live anymore . Denies hallucinations. Address with patient of why he having bowel movement in the shower. He said it is just one episode. Reports he feel constipated. Agree with Colace. He also inform regarding the ECT which was approved by the insurance. He compliant with medication, however reports he has not feeling any difference in terms of depression at since started on Wellbutrin. Encourage groups attendance. Observe him later on during the day reading at a table in dining area. Colace 100mg BID for constipation. ECT consult placed: Patient may be seen by tomorrow by Dr. Ward. Procedure done preparing for the ECT: Head CT scan negative, EKG normal sinus rhythm, Incomplete right bundle branch block. Borderline ECG_ no change when compare to previous EKG. Unremarkable CBC with diff. 04/07/25: Per hospitalist note: ECT risk stratification Patient without previous problems with anesthesia, has previously undergone ECT RCRI 0 points, no further cardiac workup or treatment indicated at this time EKG showed QT interval WNL, no evidence of ischemic changes Based on stated PMH, HPI, and physical exam, there are no apparent medical contraindications to the planned procedure. Patient is complaining of pelvic discomfort and constipation. We will add therapy with Senokot, MiraLax and obtain urinalysis to assess for urinary tract infection. Continue treatment with atorvastatin and aspirin for history of stroke and hyperlipidemia. 04/07/25: Patient compliant with medication, reports due to the pain abdominal, he could not sleep well last night. Continued to reports depressions 8/10, anxiety 4/10 today related to the pain. Denies suicidal thoughts or voices, isolated. Shower yesterday. Review with patient test need to be done prior to having ECT. Patient met with Dr. Ward and hospitalist for ECT clearance. Due to the pain, constipated, more laxative ordered today. Also UA other by hospitalist to rule out any infection. He is flat, low energy, low motivation, withdrawal, in room mostly, but come out to other rooms to talk to the providers 04/08/25: Patient slept for 8 hours, compliant with medications, denies side effect. Met with him in his room, reported that he slept better last night, having good bowel movement, denies diarrhea is. Informed him regarding the labs work/and UA that was negative to rule out UTI. Denies pain. Explained to patient regarding pre ECT procedures/test to prepare for the day that he going to start. We will start ECT on Saturday. Per Dr. Ward, we will taper down on Latuda, start him on Modafinil low dose to help with severe depression. Continued to reports moderate to severe depression. Denies suicidal thoughts or hallucinations. 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 He denied any significant or excessive drug exposure. I do not find any focal lesion, acute or chronic, suggestive of stroke. There was no contraindication to treatment with ECT. Otherwise treatment of this condition is supportive, symptomatic and conservative Taper down on Latuda from 120 down to 100 mg daily at 17:00 for mood. Start on Modefinil 100ng daily for severe depression, low energy, poor concentration, poor motivation. ECT will be scheduled next week on Saturday. We will received treatment for Saturday/Saturday and Saturday. 04/09/25: Patient denies pain, normal bowel movement, slept well and compliant with medications. Denies side effects. Denies suicidal thoughts or hallucinations but reports mild on anxiety and moderate to severe depression. Patient appeared to be disheveled. Encourage patient to be out of bed in attended to groups included OT groups which observe he is visible in day room after the conversation. The OT will do the [place] for pre ECT next week on Saturday prior the ECT. He started modafinil 50 mg this morning. Indication and side effects explained to patient. Patient is receptive with the plan. Correction: Modefinill 50mg daily. MOCA scheduled next week prior to ECT. 04/10:Laying in bed most of morning. Patient continues to report feeling depressed. He reports looking forward to ECT; pt stated, I think it will be a positive step to get ECT . denies SI/HI/VH/AH. Encouraged to get out of bed. Continue tx plan 04/11: Per nursing, pt did not get out of bed yesterday. Observed laying in bed this morning; encouraged to attend groups and shower. Patient continues to report feeling depressed. denies SI/HI/VH/AH. Encouraged to get out of bed. Continue tx plan. 04/12: continue current tx plan 04/13: stably depressed. PMR. start ECT tomorrow, otherwise continue current mgmt. NPO past MN. 04/14/25: got his first ECT treatment this afternoon. Patient slept for 6 hours, was medication compliant. However, this morning due to the delay of the ECT treatment, he was not happy about the delay into the afternoon. He appeared to be frustrated, irritable, and not cooperative with this provider I do not want to talk to anyone . I am done talking . I do not care when asked his last bowel movement. Per nursing, patient denies suicidal thoughts, other safety concerns. Reports he has no bowel movement x4 days. Medication this morning was held until after the ECT. He also was given citrate magnesium x1. Pending effect. 04/15: made bowel movement. ECT #2 tomorrow. no change in mood or presentation as of today. T/C increasing modafanil to 200 mg sometime next week. 04/16: completed ECT without incident. no FLOWERS today. no change in presentation otherwise. continue current mgmt. ECT #3 saturday. 04/17/2025: No changes. ECT # 3 Saturday04/19/202504/18: no changes 04/19: completed ECT #3 today. no FLOWERS, no change in presentation, no change in mood. continue current mgmt. T/C modafanil increase. 04/20: mood starting to improve. laughed, affect brighter and more flexible. ECT tomorrow, NPO after midnight. continue current mgmt otherwise. 04/21: irritable at afternoon ECT. short today. continue current mgmt. 04/22: not irritable, appears depressed, says mood is unchanged. ECT tomorrow. continue current mgmt. strongly consider increase in modafanil dosing. 04/23/2025: Patient seen ECT completed bilaterally. Patient with markedly poor ADLs almost catatonic like allowing himself to be covered in feces not showering or caring for himself. Change ECT to 0.25 would follow-up on response to bilateral treatment if to withdrawn would may be secondary to bilateral and might consider return to right unilateral. Wellbutrin lowered to 300 mg modafinil was started at 100 mg can consider increase to 150 mg targeting apathy lethargy. Patient started on lorazepam 1 mg p.o. t.i.d. had test doses and seemed significantly improved with more fluid speech and increase range of affect hold lorazepam night prior to ECT 04/24/25: Patient slept for 8 hours, no appetite issues. Denies SI/SIB/HI/AVH. Report anxiety a 2/10 and anxiety an 8/10 which he says he does not feel much different yet from ECT. He denies short term memory. He denies FLOWERS or tireness now but says shortly after ECT he had FLOWERS from yesterday which has been gone. He reports normal BM which laxative was held yesterday. Observed patient spent couple hours in dinning areas, eating out in activity room and spent time watching TV. Nursing also reports patient attended group in the art room as well. He also showered yesterday. He is visible, but quiet keep to self, flat affect, depressed mood. Slightly improvement compare to last visit that this provider saw him about 1-2 weeks ago. Ativan started yesterday which seem to have some effects. 04/25/25: Patient slept for 8 hours, compliant with medications, denies side effects. Deny feeling tired on Ativan. Per nursing patient have incident of incontinence of feces yesterday. Therefore Colace and MiraLax and senna has been held. Notes on to hold when has loose stools. Patient denies safety concerns. Reported the same anxiety and depression level. He is more in bed today compared to yesterday but was out for meals. Flat affect, fair eye contact, resting in room. Attended no groups. No changes in terms of mental status. May have ECT on Saturday morning. 04/26: in bed after ECT. flat, withdrawn, slowed, soft. states his mood remains the same as before, no better and no worse. agreeable to increase modafanil to 150 mg. no apparent cognitive or memory deficits. 04/27: perhaps less slowed than recently. hold ativan this afternoon and overnight. NPO past MN. continue bifrontal ECT in the morning. 04/28: faster and more flexible affect. feels he is improving. decrease ativan from 1 mg TID to 0.5 mg TID. otherwise continue current mgmt. 04/29: as for yesterday. continue current mgmt. hold ativan after 3, NPO after MN. ECT in the morning. 04/30: ECT today uneventful. increase modafanil to 200 tomorrow. DC ativan after saturday morning dose. ECT saturday. NPO past MN saturday. otherwise continue current mgmt. 05/01: Continue current management and treatment plan. 05/02: continue current management and treatment plan. 05/03: ECT #9 completed uneventfully this morning. mood remains improved but pt still spending much of the day in bed with depressive facies. continue current mgmt. 05/04: appears a bit brighter, awake this morning. ECT #10 tomorrow. continue current mgmt. Reason for continued inpatient stay Substantial Risk for: harm to self, inability to function and rapid decompensation Time Spent With Patient Time: Total time managing care of this patient today __25__ minutes.
[2025-05-04] MEDS: 0.9 % Sodium Chloride Flush 10 ML SYRINGE IVFLUSH (17:40)
[2025-05-04 20:00] VITALS: BP 99/56; PULSE 73; RESP 16; TEMP 3.1; TEMP 37.6; O2SAT 97
[2025-05-05] VITALS (11 sets, daily range): BP systolic 115–148; BP diastolic 64–106; PULSE 62–105; RESP 16–18; TEMP 36.4–37.3; O2SAT 98–100
--- NOTE | 2025-05-05 06:53 | HO.ANESPROP2 ---
[facility] Active Problems Active Problems: All Active Problems CKD (chronic kidney disease) (Acute) CVA (cerebral vascular accident) (Acute) Abnormal head CT (Acute) JUVENTINO (acute kidney injury) (Acute) Depression (Acute) Bipolar disorder (Acute) H/O gastric sleeve (Acute) Past Medical History Medical History Obesity LUIS (obstructive sleep apnea) HLD (hyperlipidemia) HTN (hypertension) CVA (cerebral vascular accident) Functional capacity: independent ambulation Family History Family history of problems with anesthesia: No Surgical History History of Problems with Anesthesia: No Social History Social History Household Members: Other Household Members Other:: transitional housing Housing: Other Do you presently have visiting nurse or other home services: No Patient Tobacco Use Status: Never used Tobacco Second Hand Smoke Exposure: Yes Currently Displaying Signs/Symptoms of Drug Intoxication Withdrawal: No Have you been hit, kicked, punched, or otherwise hurt by someone within the past year? If so, by whom?: No Do you feel safe in your current relationship?: No Current Relationship Is there a partner from a previous relationship who is making you feel unsafe now?: No Are you made to feel afraid or neglected: No Advance Directives: No Advance Directives Information Provided: No Do you have thoughts of harming others: None Do you have a plan to hurt others: No Plan Recently lost weight without trying: No Eating poorly because of decreased appetite: No Nutrition Risks: No Nutritional Risk Poor oral hygiene: Yes (very dry scalp) service: No Sexual orientation: Straight/Heterosexual Meds Allergies Allergy/AdvReac Type Severity Reaction Status Date / Time pumpkin Allergy Unknown Unknown Verified 12/24/24 12:26 Active Medications: Current Medications Acetaminophen (Acetaminophen 325 Mg Tablet) 650 mg PO Q6H PRN PRN Reason: Headache/Pain, Scale 1-10 Last Admin: 04/14/25 20:25 Dose: 650 mg Al Hydroxide/Mg Hydroxide (Magnesium Hydrox/Alum Hydrox 30 Ml Oral.Susp) 30 ml PO Q6H PRN PRN Reason: Heartburn/Nausea Aspirin (Aspirin Enteric Coated 81 Mg Tablet.Dr) 81 mg PO DAILY JENNIFER Last Admin: 05/04/25 08:32 Dose: 81 mg Atorvastatin Calcium (Atorvastatin Calcium 20 Mg Tablet) 20 mg PO BEDTIME [facility] Last Admin: 05/04/25 21:52 Dose: 20 mg Bisacodyl (Bisacodyl 5 Mg Tablet.Dr) 10 mg PO DAILY PRN PRN Reason: severe Constipation Last Admin: 04/20/25 08:57 Dose: 10 mg Bupropion HCl (Bupropion Hcl Xl 300 Mg Tab.Er.24h) 300 mg PO DAILY [facility] Last Admin: 05/04/25 08:32 Dose: 300 mg Docusate Sodium (Docusate Sodium 100 Mg Capsule) 100 mg PO BID PRN PRN Reason: constipation Hydroxyzine HCl (Hydroxyzine Hcl 25 Mg Tablet) 25 mg PO Q6H PRN PRN Reason: mild anxiety Last Admin: 03/26/25 23:24 Dose: 25 mg Lactated Ringer's (Lr) 1,000 mls @ 50 mls/hr IVCONT .Q20H JENNIFER Lurasidone HCl (Lurasidone Hcl 40 Mg Tablet) 40 mg PO DAILY@1700 [facility] Last Admin: 05/04/25 17:37 Dose: 40 mg Magnesium Hydroxide (Milk Of Magnesia 30 Ml Oral.Susp) 30 ml PO DAILY PRN PRN Reason: Constipation Last Admin: 04/17/25 10:24 Dose: 30 ml Modafinil (Modafinil 100 Mg Tablet) 200 mg PO DAILY [facility] Last Admin: 05/04/25 08:32 Dose: 200 mg Naloxone HCl (Naloxone Hcl 0.4 Mg/Ml Vial) 0.04 mg IVPUSH Q5M PRN PRN Reason: Excessive sedation or RR < 8 Nicotine (Nicotine 21 Mg Patch.Td24) 21 mg TRANSDERMA DAILY PRN PRN Reason: nicotine craving Nicotine Polacrilex (Nicotine Polacrilex 2 Mg Gum) 2 mg BUCCAL Q2H PRN PRN Reason: Nicotine Cravings Olanzapine (Olanzapine 5 Mg Tablet) 5 mg PO BID PRN PRN Reason: agitation Ondansetron HCl (Ondansetron Odt 8 Mg Tab.Rapdis) 8 mg TRANSLINGU Q8H PRN PRN Reason: Nausea and Vomiting Polyethylene Glycol (Polyethylene Glycol 3350 17 Gm Powd.Pack) 17 gm PO DAILY PRN PRN Reason: constipation Senna (Sennosides 8.6 Mg Tablet) 17.2 mg PO BEDTIME PRN PRN Reason: Constipation Sodium Chloride (0.9 % Sodium Chloride Flush 10 Ml Syringe) 10 ml IVFLUSH QSHIFT JENNIFER Last Admin: 05/05/25 00:00 Dose: Not Given Trazodone HCl (Trazodone Hcl 50 Mg Tablet) 50 mg PO BEDTIME MRX1 PRN PRN Reason: Insomnia Last Admin: 04/05/25 23:14 Dose: 50 mg Exam Height,Weight and Vital Signs: Height 5 ft 9 in Weight 99.065 kg Last Vital Signs Temp 97.6 F 05/05/25 06:30 Pulse 64 05/05/25 06:30 Resp 17 05/05/25 06:30 BP 123/82 05/05/25 06:30 Pulse Ox 98 05/05/25 06:30 O2 Del Method Room Air 05/05/25 06:30 O2 Flow Rate 3 05/03/25 07:45 Pertinent Lab Results Pertinent Lab Results: Laboratory Tests 03/26/25 03/26/25 03/27/25 14:42 15:45 08:31 WBC 9.9 RBC 4.34 L Hgb 12.8 L Hct 38.3 L MCV 88.2 MCH 29.5 MCHC 33.4 RDW 14.6 Plt Count 191 MPV 10.6 Immature Gran % (Auto) 0.2 Neut % (Auto) 61.2 Lymph % (Auto) 28.9 Campbell % (Auto) 8.8 Eos % (Auto) 0.7 Baso % (Auto) 0.2 Lymph # (Auto) 2.9 Campbell # (Auto) 0.9 Eos # (Auto) 0.1 Baso # (Auto) 0.0 Abs Immat Gran (auto) 0.02 Absolute Neuts (auto) 6.1 Absolute Nucleated RBC 0.000 Nucleated RBC % (auto) 0.0 Sodium 138 143 Potassium 4.4 4.2 Chloride 103 106 Carbon Dioxide 26 23 Anion Gap 13 18 BUN 18 H 16 Creatinine 1.55 H 1.19 Estim Creat Clear Calc 65.6 86.0 Estimated GFR 48 > 60 POC Glucose Random Glucose 93 78 Estimat Average Glucose 91 Hemoglobin A1c % 4.8 Calcium 9.0 9.0 Total Bilirubin 1.1 H AST 28 ALT 11 Alkaline Phosphatase 62 B-Natriuretic Peptide Total Protein 6.0 L Albumin 3.7 Triglycerides 66 Cholesterol 153 LDL Cholesterol, Calc 92 HDL Cholesterol 48 TSH 3.31 Free T4 1.09 Urine Color Yellow Urine Appearance Cloudy Urine pH 5.5 Ur Specific [place] 1.015 Urine Protein 30 (1+) H Urine Glucose (UA) Negative Urine Ketones Negative Urine Blood Negative Urine Nitrite Negative Ur Leukocyte Esterase Trace H Urine RBC 0-2 Urine WBC 0-5 Ur Squamous Epith Cells 6-10 Urine Bacteria None Seen Hyaline Casts >20 Salicylates < 5.0 L Urine Opiates Screen Not Detected Ur Buprenorphine Scrn Not Detected Ur Oxycodone Screen Not Detected Urine Methadone Screen Not Detected Urine Fentanyl Screen Not Detected Acetaminophen < 3 Ur Barbiturates Screen Not Detected Ur Phencyclidine Scrn Not Detected Ur Amphetamines Screen Not Detected U Benzodiazepines Scrn Not Detected Urine Cocaine Screen Not Detected U Marijuana (THC) Screen Not Detected Ethyl Alcohol < 10 T.pallidum Ab (EIA) Influenza Type A (PCR) NEGATIVE Influenza Type B (PCR) NEGATIVE RSV RNA Qual (PCR) NEGATIVE SARS-CoV-2 RNA (RT-PCR) NEGATIVE 04/06/25 04/07/25 04/07/25 14:28 08:07 21:30 WBC 9.1 RBC 4.59 L Hgb 13.4 L Hct 40.9 L MCV 89.1 MCH 29.2 MCHC 32.8 RDW 14.0 Plt Count 303 D MPV 10.6 Immature Gran % (Auto) 0.4 Neut % (Auto) 58.1 Lymph % (Auto) 32.8 Campbell % (Auto) 6.4 Eos % (Auto) 2.1 Baso % (Auto) 0.2 Lymph # (Auto) 3.0 Campbell # (Auto) 0.6 Eos # (Auto) 0.2 Baso # (Auto) 0.0 Abs Immat Gran (auto) 0.04 H Absolute Neuts (auto) 5.3 Absolute Nucleated RBC 0.000 Nucleated RBC % (auto) 0.0 Sodium 143 Potassium 4.6 Chloride 105 Carbon Dioxide 28 Anion Gap 15 BUN 17 H Creatinine 1.35 Estim Creat Clear Calc 75.5 Estimated GFR 56 POC Glucose Random Glucose 96 Estimat Average Glucose Hemoglobin A1c % Calcium 9.4 Total Bilirubin 0.6 AST 26 ALT 23 Alkaline Phosphatase 66 B-Natriuretic Peptide Total Protein 6.4 L Albumin 3.9 Triglycerides Cholesterol LDL Cholesterol, Calc HDL Cholesterol TSH 2.42 Free T4 Urine Color Yellow Urine Appearance Clear Urine pH 6.0 Ur Specific [place] 1.010 Urine Protein Negative Urine Glucose (UA) Negative Urine Ketones Negative Urine Blood Negative Urine Nitrite Negative Ur Leukocyte Esterase Negative Urine RBC Urine WBC Ur Squamous Epith Cells Urine Bacteria Hyaline Casts Salicylates Urine Opiates Screen Ur Buprenorphine Scrn Ur Oxycodone Screen Urine Methadone Screen Urine Fentanyl Screen Acetaminophen Ur Barbiturates Screen Ur Phencyclidine Scrn Ur Amphetamines Screen U Benzodiazepines Scrn Urine Cocaine Screen U Marijuana (THC) Screen Ethyl Alcohol T.pallidum Ab (EIA) Influenza Type A (PCR) Influenza Type B (PCR) RSV RNA Qual (PCR) SARS-CoV-2 RNA (RT-PCR) 04/10/25 04/20/25 04/23/25 09:18 20:47 10:35 WBC 8.6 RBC 4.73 Hgb 14.0 Hct 41.5 L MCV 87.7 MCH 29.6 MCHC 33.7 RDW 13.2 Plt Count 233 MPV 10.3 Immature Gran % (Auto) 0.5 H Neut % (Auto) 58.3 Lymph % (Auto) 33.4 Campbell % (Auto) 5.9 Eos % (Auto) 1.6 Baso % (Auto) 0.3 Lymph # (Auto) 2.9 Campbell # (Auto) 0.5 Eos # (Auto) 0.1 Baso # (Auto) 0.0 Abs Immat Gran (auto) 0.04 H Absolute Neuts (auto) 5.0 Absolute Nucleated RBC 0.000 Nucleated RBC % (auto) 0.0 Sodium 139 Potassium 4.6 Chloride 105 Carbon Dioxide 27 Anion Gap 12 BUN 21 H Creatinine 1.40 Estim Creat Clear Calc 73.3 Estimated GFR 54 POC Glucose 102 Random Glucose 87 Estimat Average Glucose Hemoglobin A1c % Calcium 8.8 D Total Bilirubin 0.8 AST 20 ALT 17 Alkaline Phosphatase 65 B-Natriuretic Peptide < 10 Total Protein 6.0 L Albumin 3.6 Triglycerides Cholesterol LDL Cholesterol, Calc HDL Cholesterol TSH Free T4 Urine Color Urine Appearance Urine pH Ur Specific [place] Urine Protein Urine Glucose (UA) Urine Ketones Urine Blood Urine Nitrite Ur Leukocyte Esterase Urine RBC Urine WBC Ur Squamous Epith Cells Urine Bacteria Hyaline Casts Salicylates Urine Opiates Screen Ur Buprenorphine Scrn Ur Oxycodone Screen Urine Methadone Screen Urine Fentanyl Screen Acetaminophen Ur Barbiturates Screen Ur Phencyclidine Scrn Ur Amphetamines Screen U Benzodiazepines Scrn Urine Cocaine Screen U Marijuana (THC) Screen Ethyl Alcohol T.pallidum Ab (EIA) Nonreactive Influenza Type A (PCR) Influenza Type B (PCR) RSV RNA Qual (PCR) SARS-CoV-2 RNA (RT-PCR) Airway Mallampati Class: II TM Dist: >3cm Partial: Upper Heart: rrr Lungs: cta Assessment and Plan Assessment Anesthesia Assessment: Anesthesia Plan Discussed and Chart Reviewed Final Anesthetic Review Family History of Problems with Anesthesia: No History of Problems with Anesthesia: No NPO: Yes ASA Class: III Final Preanesthetic Review: No Changes in Pt Med Stat, Meds/Allgs Chart Reviewed and Consent Obtained/Reviewed Patient Risk: Intermediate Procedure Risk: Intermediate Anesthetic Plan Anesthetic Plan: GA Disposition: Standard PACU
--- NOTE | 2025-05-05 07:43 | MHC.SHP ---
Pre-Procedural Eval Section A - 24 Hr Update-Section A only Date of Service: 05/05/25 The patient is an INPATIENT: Yes Changes since office visit: Yes Patient answered all questions; No Cold of Flu in the past 2 weeks, No New Medical Problems and No Changes in Medication The patient has been examined within 24 hours of the surgical procedure. The History & Physical has been completed within 30 days and I have reviewed it.: Yes Section B - Complete if H&P > 30 days Chief Complaint: SI depression Allergies: Allergies Allergy/AdvReac Type Severity Reaction Status Date / Time pumpkin Allergy Unknown Unknown Verified 12/24/24 12:26 Plan I have reviewed the history and physical and performed a pertinent physical examination on my patient. No changes have occurred unless specified. Time Spent With Patient Time: Total time managing care of this patient today ____ minutes.
[2025-05-05] MEDS: buPROPion HCl XL 300 MG TAB.ER.24H PO (10:53)
[2025-05-05] MEDS: Aspirin Enteric Coated 81 MG TABLET.DR PO (10:53)
[2025-05-05] MEDS: 0.9 % Sodium Chloride Flush 10 ML SYRINGE IVFLUSH ×3 (10:59→20:20)
--- NOTE | 2025-05-05 13:47 | HO.PSYCHPN ---
Subjective Subjective Date of Service: 05/05/25 Reason For Visit: SI depression Interim History: in bed after ECT, awake. does acknowledge having a harder time in recent days. open to increasing modafanil. per staff, feeling worse again. refusing shower. OOB less. anx 3 dep 8. Mental Status Exam Mental Status Exam Narrative: Appearance: Casually dressed, poorly groomed Behavior: Calm and cooperative, PMR Eye contact is fair Speech: soft, slowed, flattened prosody. Thought process logical and goal-directed Thought content: On treatment. Mood: trending down Affect: more flexible, normo-intense SI: none expressed HI: none expressed VH/AH: none expressed Delusions: None expressed Insight/judgment: impaired Diagnostics Vital Signs (24Hr): Vital Signs - 24 hr 05/04/25 20:00 05/05/25 05:55 05/05/25 06:30 Temperature 37.6 F L 97.7 F 97.6 F Pulse Rate 73 62 64 Respiratory Rate 16 16 17 Blood Pressure 99/56 L 115/64 123/82 Pulse Oximetry 97 98 98 Oxygen Delivery Method Room Air Room Air Room Air Oxygen Flow Rate 05/05/25 07:48 05/05/25 08:00 05/05/25 08:05 Temperature 97.7 F 99.1 F Pulse Rate 62 105 H 92 Respiratory Rate 16 16 16 Blood Pressure 115/64 138/88 148/106 H Pulse Oximetry 98 100 100 Oxygen Delivery Method Room Air Nasal Cannula with ETCO2 Nasal Cannula with ETCO2 Oxygen Flow Rate 2 2 05/05/25 08:10 05/05/25 08:15 05/05/25 08:30 Temperature Pulse Rate 93 80 81 Respiratory Rate 16 16 16 Blood Pressure 147/96 H 148/92 H 147/99 H Pulse Oximetry 99 99 99 Oxygen Delivery Method Nasal Cannula with ETCO2 Nasal Cannula with ETCO2 Room Air Oxygen Flow Rate 2 2 2 05/05/25 08:45 05/05/25 09:36 Temperature 98.1 F 97.5 F Pulse Rate 84 72 Respiratory Rate 16 18 Blood Pressure 140/84 H 123/79 Pulse Oximetry 100 100 Oxygen Delivery Method Room Air Oxygen Flow Rate BMI result Body Mass Index 32.2 Labs 04/23/25 10:35 04/23/25 10:35 Imaging Radiology Impressions: ITS Impressions Head CT 04/06/25 13:54 IMPRESSION: No acute intracranial hemorrhage. Bifrontal bitemporal lobes atrophy. Electronically signed by: Roque Guillen MD 04/06/2025 02:15 PM EDT Medications Medications Current Medications Acetaminophen (Acetaminophen 325 Mg Tablet) 650 mg PO Q6H PRN PRN Reason: Headache/Pain, Scale 1-10 Last Admin: 04/14/25 20:25 Dose: 650 mg Al Hydroxide/Mg Hydroxide (Magnesium Hydrox/Alum Hydrox 30 Ml Oral.Susp) 30 ml PO Q6H PRN PRN Reason: Heartburn/Nausea Aspirin (Aspirin Enteric Coated 81 Mg Tablet.Dr) 81 mg PO DAILY [facility] Last Admin: 05/05/25 10:53 Dose: 81 mg Atorvastatin Calcium (Atorvastatin Calcium 20 Mg Tablet) 20 mg PO BEDTIME [facility] Last Admin: 05/04/25 21:52 Dose: 20 mg Bisacodyl (Bisacodyl 5 Mg Tablet.) 10 mg PO DAILY PRN PRN Reason: severe Constipation Last Admin: 04/20/25 08:57 Dose: 10 mg Bupropion HCl (Bupropion Hcl Xl 300 Mg Tab.Er.24h) 300 mg PO DAILY [facility] Last Admin: 05/05/25 10:53 Dose: 300 mg Docusate Sodium (Docusate Sodium 100 Mg Capsule) 100 mg PO BID PRN PRN Reason: constipation Hydroxyzine HCl (Hydroxyzine Hcl 25 Mg Tablet) 25 mg PO Q6H PRN PRN Reason: mild anxiety Last Admin: 03/26/25 23:24 Dose: 25 mg Lactated Ringer's (Lr) 1,000 mls @ 50 mls/hr IVCONT .Q20H [facility] Last Admin: 05/05/25 11:08 Dose: Not Given Lurasidone HCl (Lurasidone Hcl 40 Mg Tablet) 40 mg PO DAILY@1700 [facility] Last Admin: 05/04/25 17:37 Dose: 40 mg Magnesium Hydroxide (Milk Of Magnesia 30 Ml Oral.Susp) 30 ml PO DAILY PRN PRN Reason: Constipation Last Admin: 04/17/25 10:24 Dose: 30 ml Modafinil (Modafinil 100 Mg Tablet) 200 mg PO DAILY [facility] Last Admin: 05/05/25 10:53 Dose: 200 mg Naloxone HCl (Naloxone Hcl 0.4 Mg/Ml Vial) 0.04 mg IVPUSH Q5M PRN PRN Reason: Excessive sedation or RR < 8 Naloxone HCl (Naloxone Hcl 0.4 Mg/Ml Vial) 0.04 mg IVPUSH Q5M PRN PRN Reason: Excessive sedation or RR < 8 Nicotine (Nicotine 21 Mg Patch.Td24) 21 mg TRANSDERMA DAILY PRN PRN Reason: nicotine craving Nicotine Polacrilex (Nicotine Polacrilex 2 Mg Gum) 2 mg BUCCAL Q2H PRN PRN Reason: Nicotine Cravings Olanzapine (Olanzapine 5 Mg Tablet) 5 mg PO BID PRN PRN Reason: agitation Ondansetron HCl (Ondansetron Odt 8 Mg Tab.Rapdis) 8 mg TRANSLINGU Q8H PRN PRN Reason: Nausea and Vomiting Polyethylene Glycol (Polyethylene Glycol 3350 17 Gm Powd.Pack) 17 gm PO DAILY PRN PRN Reason: constipation Senna (Sennosides 8.6 Mg Tablet) 17.2 mg PO BEDTIME PRN PRN Reason: Constipation Sodium Chloride (0.9 % Sodium Chloride Flush 10 Ml Syringe) 10 ml IVFLUSH QSHIFT JENNIFER Last Admin: 05/05/25 10:59 Dose: 10 ml Trazodone HCl (Trazodone Hcl 50 Mg Tablet) 50 mg PO BEDTIME MRX1 PRN PRN Reason: Insomnia Last Admin: 04/05/25 23:14 Dose: 50 mg Allergies Allergies Allergy/AdvReac Type Severity Reaction Status Date / Time pumpkin Allergy Unknown Unknown Verified 12/24/24 12:26 Assessment & Plan Assessment & Plan (1) CKD (chronic kidney disease): Qualifiers: Chronic kidney disease stage: stage 3 (moderate) Chronic kidney disease stage 3 subtype: stage 3a (GFR 45-59) Qualified Code(s): N18.31 - Chronic kidney disease, stage 3a Status: Acute Code(s): N18.9 - Chronic kidney disease, unspecified Assessment and Plan: Patient likely has some mild chronic kidney disease, 3a no proteinuria on most recent UA patient has mild renal disease, given medical history has low risk of developing ESRD requiring dialysis- ok for midline placement. Discussed with Dr Moody. (2) Depression: Qualifiers: Depression Type: unspecified Qualified Code(s): F32.A - Depression, unspecified Status: Acute Code(s): F32.A - Depression, unspecified (3) CVA (cerebral vascular accident): Status: Acute Code(s): I63.9 - Cerebral infarction, unspecified Plan 03/27: feels latuda 120 has been helpful. however, remains depressed. add wellbutrin XL 150 daily for depression, plan to increase to 300 mg daily in 3 days. may also consider ECT due to lack of improvement despite numerous recent hospitalizations + lethality of suicide attempts + recent self-abnegating behaviors. 03/28: no change in presentation, no requests or complaints. started wellbutrin 150 today. continue current mgmt 03/29/25: Slept well, no issues with appetite. Observed out on the unit, attended groups, engaging. Reports depression and 03/21, denies anxiety. Constricted affect, congruent with mood. Denies safety concerns. Compliant with medications. Denies side effects from Wellbutrin. Continue to encourage groups. 03/30/25: Patient slept for 6 hours, was medication compliant. He attended 2 groups yesterday, however today he is more isolated, in bed a lot more time, declines a couple groups. Reports depressed but no anxiety, flat affect, depressed, but cooperative during one-to-one assessment. He is receptive with the plan of Wellbutrin increased up to 300 mg for depression. Reports passive SI, denies plan or intention. Denies other safety concerns. Encourage patient to go to groups and shower daily. Increase Wellbutrin XL to 300 mg daily for depression. He reported that he has bipolar type II. 03/31: Laying in bed. keeping to self. showered. patient reports feeling depressed ; pt stated, I'm not having a good day. I don't want to do anything . flat affect. denies SI/HI/VH/AH. Per nursing, slept 8 hours. encouraged to attend groups. continue current tx plan. 04/01/25: Patient slept for 8 hours, poor meal intake yesterday but was medication compliant. Denies side effects. When asked about if he has poor appetite as he ate only 50 of breakfast, and 25 for lunch and not eating dinner, he said because I did not do the menu, so I got what I do not like . He shower yesterday, continued to reports depression 03/21. Denied anxiety. He does not feel any difference from Wellbutrin 150 when and when it was increased up to 300 mg. Denies SI/SIB/HI/AVH, isolative self, he plans to attend groups today. This provider spoke with patient in length regarding medication trials. Per his report, has been trying so many antidepressants they just do not work, and continued to be depressed. Some of them are Zoloft, Paxil, Effexor, Celexa, Prozac, Cymbalta, Lexapro. He also having history of taking Zyprexa more than 20 years ago due to hearing voices. Then the voices was calm. He never has a take it again after. History of Abilify but not sure if it is working as he can not recall. Regarding ADLs: He said that he had food at the assisted twice a day, but he is not showering for many days despite the fact that staff asked him to do so I just do not care about being clean . Reports very low energy, low motivation, been increased suicidal thoughts and depression. He used to love music and reading but not interested in doing anything like that anymore. Reported that he had gastric sleeve surgery back in August 2023 which he lost 230 lb. He weight 447 lb prior to the surgery. He identified that after the surgery he has been more depressed slowly over months. There was a time that he wanted to starve myself so I can when asked is that you that he has stopped eating at home. He also identified that he feel more depressed after surgery as he is not able to over eating like he did before. Family mental health illnesses: Reports that who both of his parents was depressed. Mom 11 years ago. 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 History of ECTs: Reports he had history of ECTs in 2010 when he was at in [facility].He felt worse after the treatment everything seems like a dream . He clarified that immediately after the treatment he feel that way which could be a side effects of ECT but not permanent. Educate patient on possible side effects ECTs. Patient denies having seizure during ECTs treatment, no seizure history no cardiac conditions/disease history. Reports history of hypertension, but not anymore. He also has been admitted to different hospitals for psychiatric admissions in the past couple of months. Reports staying at [facility] in December for a month. New hospital in the area names [facility]) in October for another month. Per email from his OP team- clinical director at [facility], they also express concerns of patient's conditions. It is noted that their concerns are very consistent with patient' report here on the unit. He also has been admitted to different hospitals for psychiatric admissions in the past couple of months. Reports staying at [facility] in December for a month. New hospital in the area names [facility]) in October for another month. Per email from his OP team- clinical director at [facility], they also express concerns of patient's conditions. It is noted that their concerns are very consistent with patient' report here on the unit. Alfredito has been in and out on inpatient level of care since October of this year, I believe every month, for a majority of the time. He was recently discharged from [facility] after a 1 month stay and within two hours of returning home wanted to return to the hospital, saying he was unwell, and within one day was sectioned by [facility], which is how he ended up with you now. He has been coming home and intentionally starving himself, even not eating for up to 1 week. We have known Alfredito for years and since this started in October, we have seen no significant improvement in his mental health or a return to baseline. In fact, we are observing his case as consistent with failure to thrive. We have been asking for him to be inpatient at [facility] or with you at [facility] for some time in order for him to be potentially considered for ECT level of treatment, if deemed appropriate. Multiple medication trials failture to target depressive symptoms. He will be a good candidate to get trial ECT treatment in combination with current medication regimens. Patient also agrees with the plan. We would start the treatment as soon as possible. Will discuss the case with in house psychiatrist-Dr. Ward to prepare for ECT treatment. Hope to start early next week. 04/02: Laying in bed. keeping to self. Patient continues to report feeling depressed; pt stated, I feel about the same. I spoke with the other provider and agreed to do ECT . He reports sleeping well. denies SI/HI/VH/AH. Encouraged to attend groups and shower. Continue current tx plan. 04/03: no changes- just started wellbutrin 04/04: no changes 04/05/25: report anxiety a 2-3/10 but still 8/10 for depression. No change since started Wellbutrin. He agrees to get Wellbutrin up to 450mg daily for depression. Isolative in room, staring up to the ceiling. Discuss with patient of option to start on Intuniv for severe depression. Patient declines it at this current time but agree to see Welbutrin increased would be helpful. He agrees with ECT. Encourage groups, he says he was at art group out to dinning area but there are too much so he went back to his room. Report not many groups offered over the weekends. 04/06/25: Patient slept for 6 hours, have a sleep study done last night. Reported that he did not sleep well. Appetite is okay. Mood is depressed 03/21, denies anxiety today. Denies suicidal thoughts, but reports he has passive SI yesterday intrusive, just do not Wanna live anymore . Denies hallucinations. Address with patient of why he having bowel movement in the shower. He said it is just one episode. Reports he feel constipated. Agree with Colace. He also inform regarding the ECT which was approved by the insurance. He compliant with medication, however reports he has not feeling any difference in terms of depression at since started on Wellbutrin. Encourage groups attendance. Observe him later on during the day reading at a table in dining area. Colace 100mg BID for constipation. ECT consult placed: Patient may be seen by tomorrow by Dr. Ward. Procedure done preparing for the ECT: Head CT scan negative, EKG normal sinus rhythm, Incomplete right bundle branch block. Borderline ECG_ no change when compare to previous EKG. Unremarkable CBC with diff. 04/07/25: Per hospitalist note: ECT risk stratification Patient without previous problems with anesthesia, has previously undergone ECT RCRI 0 points, no further cardiac workup or treatment indicated at this time EKG showed QT interval WNL, no evidence of ischemic changes Based on stated PMH, HPI, and physical exam, there are no apparent medical contraindications to the planned procedure. Patient is complaining of pelvic discomfort and constipation. We will add therapy with Senokot, MiraLax and obtain urinalysis to assess for urinary tract infection. Continue treatment with atorvastatin and aspirin for history of stroke and hyperlipidemia. 04/07/25: Patient compliant with medication, reports due to the pain abdominal, he could not sleep well last night. Continued to reports depressions 8/10, anxiety 4/10 today related to the pain. Denies suicidal thoughts or voices, isolated. Shower yesterday. Review with patient test need to be done prior to having ECT. Patient met with Dr. Ward and hospitalist for ECT clearance. Due to the pain, constipated, more laxative ordered today. Also UA other by hospitalist to rule out any infection. He is flat, low energy, low motivation, withdrawal, in room mostly, but come out to other rooms to talk to the providers 04/08/25: Patient slept for 8 hours, compliant with medications, denies side effect. Met with him in his room, reported that he slept better last night, having good bowel movement, denies diarrhea is. Informed him regarding the labs work/and UA that was negative to rule out UTI. Denies pain. Explained to patient regarding pre ECT procedures/test to prepare for the day that he going to start. We will start ECT on Saturday. Per Dr. Ward, we will taper down on Latuda, start him on Modafinil low dose to help with severe depression. Continued to reports moderate to severe depression. Denies suicidal thoughts or hallucinations. 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 He denied any significant or excessive drug exposure. I do not find any focal lesion, acute or chronic, suggestive of stroke. There was no contraindication to treatment with ECT. Otherwise treatment of this condition is supportive, symptomatic and conservative Taper down on Latuda from 120 down to 100 mg daily at 17:00 for mood. Start on Modefinil 100ng daily for severe depression, low energy, poor concentration, poor motivation. ECT will be scheduled next week on Saturday. We will received treatment for Saturday/Saturday and Saturday. 04/09/25: Patient denies pain, normal bowel movement, slept well and compliant with medications. Denies side effects. Denies suicidal thoughts or hallucinations but reports mild on anxiety and moderate to severe depression. Patient appeared to be disheveled. Encourage patient to be out of bed in attended to groups included OT groups which observe he is visible in day room after the conversation. The OT will do the [place] for pre ECT next week on Saturday prior the ECT. He started modafinil 50 mg this morning. Indication and side effects explained to patient. Patient is receptive with the plan. Correction: Modefinill 50mg daily. MOCA scheduled next week prior to ECT. 04/10:Laying in bed most of morning. Patient continues to report feeling depressed. He reports looking forward to ECT; pt stated, I think it will be a positive step to get ECT . denies SI/HI/VH/AH. Encouraged to get out of bed. Continue tx plan 04/11: Per nursing, pt did not get out of bed yesterday. Observed laying in bed this morning; encouraged to attend groups and shower. Patient continues to report feeling depressed. denies SI/HI/VH/AH. Encouraged to get out of bed. Continue tx plan. 04/12: continue current tx plan 04/13: stably depressed. PMR. start ECT tomorrow, otherwise continue current mgmt. NPO past MN. 04/14/25: got his first ECT treatment this afternoon. Patient slept for 6 hours, was medication compliant. However, this morning due to the delay of the ECT treatment, he was not happy about the delay into the afternoon. He appeared to be frustrated, irritable, and not cooperative with this provider I do not want to talk to anyone . I am done talking . I do not care when asked his last bowel movement. Per nursing, patient denies suicidal thoughts, other safety concerns. Reports he has no bowel movement x4 days. Medication this morning was held until after the ECT. He also was given citrate magnesium x1. Pending effect. 04/15: made bowel movement. ECT #2 tomorrow. no change in mood or presentation as of today. T/C increasing modafanil to 200 mg sometime next week. 04/16: completed ECT without incident. no FLOWERS today. no change in presentation otherwise. continue current mgmt. ECT #3 saturday. 04/17/2025: No changes. ECT # 3 Saturday04/19/202504/18: no changes 04/19: completed ECT #3 today. no FLOWERS, no change in presentation, no change in mood. continue current mgmt. T/C modafanil increase. 04/20: mood starting to improve. laughed, affect brighter and more flexible. ECT tomorrow, NPO after midnight. continue current mgmt otherwise. 04/21: irritable at afternoon ECT. short today. continue current mgmt. 04/22: not irritable, appears depressed, says mood is unchanged. ECT tomorrow. continue current mgmt. strongly consider increase in modafanil dosing. 04/23/2025: Patient seen ECT completed bilaterally. Patient with markedly poor ADLs almost catatonic like allowing himself to be covered in feces not showering or caring for himself. Change ECT to 0.25 would follow-up on response to bilateral treatment if to withdrawn would may be secondary to bilateral and might consider return to right unilateral. Wellbutrin lowered to 300 mg modafinil was started at 100 mg can consider increase to 150 mg targeting apathy lethargy. Patient started on lorazepam 1 mg p.o. t.i.d. had test doses and seemed significantly improved with more fluid speech and increase range of affect hold lorazepam night prior to ECT 04/24/25: Patient slept for 8 hours, no appetite issues. Denies SI/SIB/HI/AVH. Report anxiety a 2/10 and anxiety an 8/10 which he says he does not feel much different yet from ECT. He denies short term memory. He denies FLOWERS or tireness now but says shortly after ECT he had FLOWERS from yesterday which has been gone. He reports normal BM which laxative was held yesterday. Observed patient spent couple hours in dinning areas, eating out in activity room and spent time watching TV. Nursing also reports patient attended group in the art room as well. He also showered yesterday. He is visible, but quiet keep to self, flat affect, depressed mood. Slightly improvement compare to last visit that this provider saw him about 1-2 weeks ago. Ativan started yesterday which seem to have some effects. 04/25/25: Patient slept for 8 hours, compliant with medications, denies side effects. Deny feeling tired on Ativan. Per nursing patient have incident of incontinence of feces yesterday. Therefore Colace and MiraLax and senna has been held. Notes on to hold when has loose stools. Patient denies safety concerns. Reported the same anxiety and depression level. He is more in bed today compared to yesterday but was out for meals. Flat affect, fair eye contact, resting in room. Attended no groups. No changes in terms of mental status. May have ECT on Saturday. 04/26: in bed after ECT. flat, withdrawn, slowed, soft. states his mood remains the same as before, no better and no worse. agreeable to increase modafanil to 150 mg. no apparent cognitive or memory deficits. 04/27: perhaps less slowed than recently. hold ativan this afternoon and overnight. NPO past MN. continue bifrontal ECT in the morning. 04/28: faster and more flexible affect. feels he is improving. decrease ativan from 1 mg TID to 0.5 mg TID. otherwise continue current mgmt. 04/29: as for yesterday. continue current mgmt. hold ativan after 3, NPO after MN. ECT in the morning. 04/30: ECT today uneventful. increase modafanil to 200 tomorrow. DC ativan after saturday morning dose. ECT saturday. NPO past MN saturday. otherwise continue current mgmt. 05/01: Continue current management and treatment plan. 05/02: continue current management and treatment plan. 05/03: ECT #9 completed uneventfully this morning. mood remains improved but pt still spending much of the day in bed with depressive facies. continue current mgmt. 05/04: appears a bit brighter, awake this morning. ECT #10 tomorrow. continue current mgmt. 05/05: poorer hygiene, not showering. reporting mood trending down again. open to increasing modafanil. continue current mgmt for now. Reason for continued inpatient stay Substantial Risk for: inability to function and rapid decompensation Time Spent With Patient Time: Total time managing care of this patient today ____ minutes.
[2025-05-06 08:00] VITALS: BP 107/57; PULSE 68; RESP 16; TEMP 36.3; O2SAT 100
[2025-05-06] MEDS: buPROPion HCl XL 300 MG TAB.ER.24H PO (08:48)
[2025-05-06] MEDS: Aspirin Enteric Coated 81 MG TABLET.DR PO (08:48)
[2025-05-06] MEDS: 0.9 % Sodium Chloride Flush 10 ML SYRINGE IVFLUSH ×3 (08:48→21:33)
--- NOTE | 2025-05-06 13:11 | HO.PSYCHPN ---
Subjective Subjective Date of Service: 05/06/25 Reason For Visit: SI depression Interim History: in bed, states he showered and mood improved. agreeable to increase modafanil to 300. ECT tomorrow. per staff, flat. difficult to engage. slept all night. Mental Status Exam Mental Status Exam Narrative: Appearance: Casually dressed, poorly groomed Behavior: Calm and cooperative, PMR Eye contact is fair Speech: soft, slowed, flattened prosody. Thought process logical and goal-directed Thought content: On treatment. Mood: trending better Affect: constricted, normo-intense SI: none expressed HI: none expressed VH/AH: none expressed Delusions: None expressed Insight/judgment: impaired Diagnostics Vital Signs (24Hr): Vital Signs - 24 hr 05/05/25 20:00 05/06/25 08:00 Temperature 98.1 F 97.4 F Pulse Rate 69 68 Respiratory Rate 18 16 Blood Pressure 120/67 107/57 L Pulse Oximetry 98 100 Oxygen Delivery Method Room Air Room Air BMI result Body Mass Index 32.2 Labs 04/23/25 10:35 04/23/25 10:35 Imaging Radiology Impressions: ITS Impressions Head CT 04/06/25 13:54 IMPRESSION: No acute intracranial hemorrhage. Bifrontal bitemporal lobes atrophy. Electronically signed by: Roque Guillen MD 04/06/2025 02:15 PM EDT Medications Medications Current Medications Acetaminophen (Acetaminophen 325 Mg Tablet) 650 mg PO Q6H PRN PRN Reason: Headache/Pain, Scale 1-10 Last Admin: 04/14/25 20:25 Dose: 650 mg Al Hydroxide/Mg Hydroxide (Magnesium Hydrox/Alum Hydrox 30 Ml Oral.Susp) 30 ml PO Q6H PRN PRN Reason: Heartburn/Nausea Aspirin (Aspirin Enteric Coated 81 Mg Tablet.) 81 mg PO DAILY JENNIFER Last Admin: 05/06/25 08:48 Dose: 81 mg Atorvastatin Calcium (Atorvastatin Calcium 20 Mg Tablet) 20 mg PO BEDTIME JENNIFER Last Admin: 05/05/25 20:20 Dose: 20 mg Bisacodyl (Bisacodyl 5 Mg Tablet.) 10 mg PO DAILY PRN PRN Reason: severe Constipation Last Admin: 04/20/25 08:57 Dose: 10 mg Bupropion HCl (Bupropion Hcl Xl 300 Mg Tab.Er.24h) 300 mg PO DAILY [facility] Last Admin: 05/06/25 08:48 Dose: 300 mg Docusate Sodium (Docusate Sodium 100 Mg Capsule) 100 mg PO BID PRN PRN Reason: constipation Hydroxyzine HCl (Hydroxyzine Hcl 25 Mg Tablet) 25 mg PO Q6H PRN PRN Reason: mild anxiety Last Admin: 03/26/25 23:24 Dose: 25 mg Lurasidone HCl (Lurasidone Hcl 40 Mg Tablet) 40 mg PO DAILY@1700 [facility] Last Admin: 05/05/25 17:22 Dose: 40 mg Magnesium Hydroxide (Milk Of Magnesia 30 Ml Oral.Susp) 30 ml PO DAILY PRN PRN Reason: Constipation Last Admin: 04/17/25 10:24 Dose: 30 ml Modafinil (Modafinil 100 Mg Tablet) 300 mg PO DAILY [facility] Naloxone HCl (Naloxone Hcl 0.4 Mg/Ml Vial) 0.04 mg IVPUSH Q5M PRN PRN Reason: Excessive sedation or RR < 8 Naloxone HCl (Naloxone Hcl 0.4 Mg/Ml Vial) 0.04 mg IVPUSH Q5M PRN PRN Reason: Excessive sedation or RR < 8 Nicotine (Nicotine 21 Mg Patch.Td24) 21 mg TRANSDERMA DAILY PRN PRN Reason: nicotine craving Nicotine Polacrilex (Nicotine Polacrilex 2 Mg Gum) 2 mg BUCCAL Q2H PRN PRN Reason: Nicotine Cravings Olanzapine (Olanzapine 5 Mg Tablet) 5 mg PO BID PRN PRN Reason: agitation Ondansetron HCl (Ondansetron Odt 8 Mg Tab.Rapdis) 8 mg TRANSLINGU Q8H PRN PRN Reason: Nausea and Vomiting Polyethylene Glycol (Polyethylene Glycol 3350 17 Gm Powd.Pack) 17 gm PO DAILY PRN PRN Reason: constipation Senna (Sennosides 8.6 Mg Tablet) 17.2 mg PO BEDTIME PRN PRN Reason: Constipation Sodium Chloride (0.9 % Sodium Chloride Flush 10 Ml Syringe) 10 ml IVFLUSH QSHIFT [facility] Last Admin: 05/06/25 08:48 Dose: 10 ml Trazodone HCl (Trazodone Hcl 50 Mg Tablet) 50 mg PO BEDTIME MRX1 PRN PRN Reason: Insomnia Last Admin: 04/05/25 23:14 Dose: 50 mg Allergies Allergies Allergy/AdvReac Type Severity Reaction Status Date / Time pumpkin Allergy Unknown Unknown Verified 12/24/24 12:26 Assessment & Plan Assessment & Plan (1) CKD (chronic kidney disease): Qualifiers: Chronic kidney disease stage: stage 3 (moderate) Chronic kidney disease stage 3 subtype: stage 3a (GFR 45-59) Qualified Code(s): N18.31 - Chronic kidney disease, stage 3a Status: Acute Code(s): N18.9 - Chronic kidney disease, unspecified Assessment and Plan: Patient likely has some mild chronic kidney disease, 3a no proteinuria on most recent UA patient has mild renal disease, given medical history has low risk of developing ESRD requiring dialysis- ok for midline placement. Discussed with Dr Moody. (2) Depression: Qualifiers: Depression Type: unspecified Qualified Code(s): F32.A - Depression, unspecified Status: Acute Code(s): F32.A - Depression, unspecified (3) CVA (cerebral vascular accident): Status: Acute Code(s): I63.9 - Cerebral infarction, unspecified Plan 03/27: feels latuda 120 has been helpful. however, remains depressed. add wellbutrin XL 150 daily for depression, plan to increase to 300 mg daily in 3 days. may also consider ECT due to lack of improvement despite numerous recent hospitalizations + lethality of suicide attempts + recent self-abnegating behaviors. 03/28: no change in presentation, no requests or complaints. started wellbutrin 150 today. continue current mgmt 03/29/25: Slept well, no issues with appetite. Observed out on the unit, attended groups, engaging. Reports depression and 03/21, denies anxiety. Constricted affect, congruent with mood. Denies safety concerns. Compliant with medications. Denies side effects from Wellbutrin. Continue to encourage groups. 03/30/25: Patient slept for 6 hours, was medication compliant. He attended 2 groups yesterday, however today he is more isolated, in bed a lot more time, declines a couple groups. Reports depressed but no anxiety, flat affect, depressed, but cooperative during one-to-one assessment. He is receptive with the plan of Wellbutrin increased up to 300 mg for depression. Reports passive SI, denies plan or intention. Denies other safety concerns. Encourage patient to go to groups and shower daily. Increase Wellbutrin XL to 300 mg daily for depression. He reported that he has bipolar type II. 03/31: Laying in bed. keeping to self. showered. patient reports feeling depressed ; pt stated, I'm not having a good day. I don't want to do anything . flat affect. denies SI/HI/VH/AH. Per nursing, slept 8 hours. encouraged to attend groups. continue current tx plan. 04/01/25: Patient slept for 8 hours, poor meal intake yesterday but was medication compliant. Denies side effects. When asked about if he has poor appetite as he ate only 50 of breakfast, and 25 for lunch and not eating dinner, he said because I did not do the menu, so I got what I do not like . He shower yesterday, continued to reports depression 03/21. Denied anxiety. He does not feel any difference from Wellbutrin 150 when and when it was increased up to 300 mg. Denies SI/SIB/HI/AVH, isolative self, he plans to attend groups today. This provider spoke with patient in length regarding medication trials. Per his report, has been trying so many antidepressants they just do not work, and continued to be depressed. Some of them are Zoloft, Paxil, Effexor, Celexa, Prozac, Cymbalta, Lexapro. He also having history of taking Zyprexa more than 20 years ago due to hearing voices. Then the voices was calm. He never has a take it again after. History of Abilify but not sure if it is working as he can not recall. Regarding ADLs: He said that he [facility] a day, but he is not showering for many days despite the fact that staff asked him to do so I just do not care about being clean . Reports very low energy, low motivation, been increased suicidal thoughts and depression. He used to love music and reading but not interested in doing anything like that anymore. Reported that he had gastric sleeve surgery back in August 2023 which he lost 230 lb. He weight 447 lb prior to the surgery. He identified that after the surgery he has been more depressed slowly over months. There was a time that he wanted to starve myself so I can when asked is that you that he has stopped eating at home. He also identified that he feel more depressed after surgery as he is not able to over eating like he did before. Family mental health illnesses: Reports that who both of his parents was depressed. Mom 11 years ago. 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 History of ECTs: Reports he had history of ECTs in 2010 when he was at in [facility].He felt worse after the treatment everything seems like a dream . He clarified that immediately after the treatment he feel that way which could be a side effects of ECT but not permanent. Educate patient on possible side effects ECTs. Patient denies having seizure during ECTs treatment, no seizure history no cardiac conditions/disease history. Reports history of hypertension, but not anymore. He also has been admitted to different hospitals for psychiatric admissions in the past couple of months. Reports staying at [facility] in December for a month. [facility] in the area names [facility]) in October for another month. Per email from his OP team- clinical director at [facility], they also express concerns of patient's conditions. It is noted that their concerns are very consistent with patient' report here on the unit. He also has been admitted to different hospitals for psychiatric admissions in the past couple of months. Reports staying at [facility] in December for a month. [facility] in the area names [facility]) in October for another month. Per email from his OP team- clinical director at [facility], they also express concerns of patient's conditions. It is noted that their concerns are very consistent with patient' report here on the unit. Alfredito has been in and out on inpatient level of care since October of this year, I believe every month, for a majority of the time. He was recently discharged from [facility] after a 1 month stay and within two hours of returning home wanted to return to the hospital, saying he was unwell, and within one day was sectioned by [facility], which is how he ended up with you now. He has been coming home and intentionally starving himself, even not eating for up to 1 week. We have known Alfredito for years and since this started in October, we have seen no significant improvement in his mental health or a return to baseline. In fact, we are observing his case as consistent with failure to thrive. We have been asking for him to be inpatient at [facility] or with you at [facility] for some time in order for him to be potentially considered for ECT level of treatment, if deemed appropriate. Multiple medication trials failture to target depressive symptoms. He will be a good candidate to get trial ECT treatment in combination with current medication regimens. Patient also agrees with the plan. We would start the treatment as soon as possible. Will discuss the case with in house psychiatrist-Dr. Ward to prepare for ECT treatment. Hope to start early next week. 04/02: Laying in bed. keeping to self. Patient continues to report feeling depressed; pt stated, I feel about the same. I spoke with the other provider and agreed to do ECT . He reports sleeping well. denies SI/HI/VH/AH. Encouraged to attend groups and shower. Continue current tx plan. 04/03: no changes- just started wellbutrin 04/04: no changes 04/05/25: report anxiety a 2-3 but still 03/21 for depression. No change since started Wellbutrin. He agrees to get Wellbutrin up to 450mg daily for depression. Isolative in room, staring up to the ceiling. Discuss with patient of option to start on Intuniv for severe depression. Patient declines it at this current time but agree to see Welbutrin increased would be helpful. He agrees with ECT. Encourage groups, he says he was at art group out to dinning area but there are too much so he went back to his room. Report not many groups offered over the weekends. 04/06/25: Patient slept for 6 hours, have a sleep study done last night. Reported that he did not sleep well. Appetite is okay. Mood is depressed 03/21, denies anxiety today. Denies suicidal thoughts, but reports he has passive SI yesterday intrusive, just do not Wanna live anymore . Denies hallucinations. Address with patient of why he having bowel movement in the shower. He said it is just one episode. Reports he feel constipated. Agree with Colace. He also inform regarding the ECT which was approved by the insurance. He compliant with medication, however reports he has not feeling any difference in terms of depression at since started on Wellbutrin. Encourage groups attendance. Observe him later on during the day reading at a table in dining area. Colace 100mg BID for constipation. ECT consult placed: Patient may be seen by tomorrow by Dr. Ward. Procedure done preparing for the ECT: Head CT scan negative, EKG normal sinus rhythm, Incomplete right bundle branch block. Borderline ECG_ no change when compare to previous EKG. Unremarkable CBC with diff. 04/07/25: Per hospitalist note: ECT risk stratification Patient without previous problems with anesthesia, has previously undergone ECT RCRI 0 points, no further cardiac workup or treatment indicated at this time EKG showed QT interval WNL, no evidence of ischemic changes Based on stated PMH, HPI, and physical exam, there are no apparent medical contraindications to the planned procedure. Patient is complaining of pelvic discomfort and constipation. We will add therapy with Senokot, MiraLax and obtain urinalysis to assess for urinary tract infection. Continue treatment with atorvastatin and aspirin for history of stroke and hyperlipidemia. 04/07/25: Patient compliant with medication, reports due to the pain abdominal, he could not sleep well last night. Continued to reports depressions 8/10, anxiety 4/10 today related to the pain. Denies suicidal thoughts or voices, isolated. Shower yesterday. Review with patient test need to be done prior to having ECT. Patient met with Dr. Ward and hospitalist for ECT clearance. Due to the pain, constipated, more laxative ordered today. Also UA other by hospitalist to rule out any infection. He is flat, low energy, low motivation, withdrawal, in room mostly, but come out to other rooms to talk to the providers 04/08/25: Patient slept for 8 hours, compliant with medications, denies side effect. Met with him in his room, reported that he slept better last night, having good bowel movement, denies diarrhea is. Informed him regarding the labs work/and UA that was negative to rule out UTI. Denies pain. Explained to patient regarding pre ECT procedures/test to prepare for the day that he going to start. We will start ECT on Saturday. Per Dr. Ward, we will taper down on Latuda, start him on Modafinil low dose to help with severe depression. Continued to reports moderate to severe depression. Denies suicidal thoughts or hallucinations. 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 He denied any significant or excessive drug exposure. I do not find any focal lesion, acute or chronic, suggestive of stroke. There was no contraindication to treatment with ECT. Otherwise treatment of this condition is supportive, symptomatic and conservative Taper down on Latuda from 120 down to 100 mg daily at 17:00 for mood. Start on Modefinil 100ng daily for severe depression, low energy, poor concentration, poor motivation. ECT will be scheduled next week on Saturday. We will received treatment for Saturday/Saturday and Saturday. 04/09/25: Patient denies pain, normal bowel movement, slept well and compliant with medications. Denies side effects. Denies suicidal thoughts or hallucinations but reports mild on anxiety and moderate to severe depression. Patient appeared to be disheveled. Encourage patient to be out of bed in attended to groups included OT groups which observe he is visible in day room after the conversation. The OT will do the [place] for pre ECT next week on Saturday prior the ECT. He started modafinil 50 mg this morning. Indication and side effects explained to patient. Patient is receptive with the plan. Correction: Modefinill 50mg daily. MOCA scheduled next week prior to ECT. 04/10:Laying in bed most of morning. Patient continues to report feeling depressed. He reports looking forward to ECT; pt stated, I think it will be a positive step to get ECT . denies SI/HI/VH/AH. Encouraged to get out of bed. Continue tx plan 04/11: Per nursing, pt did not get out of bed yesterday. Observed laying in bed this morning; encouraged to attend groups and shower. Patient continues to report feeling depressed. denies SI/HI/VH/AH. Encouraged to get out of bed. Continue tx plan. 04/12: continue current tx plan 04/13: stably depressed. PMR. start ECT tomorrow, otherwise continue current mgmt. NPO past MN. 04/14/25: got his first ECT treatment this afternoon. Patient slept for 6 hours, was medication compliant. However, this morning due to the delay of the ECT treatment, he was not happy about the delay into the afternoon. He appeared to be frustrated, irritable, and not cooperative with this provider I do not want to talk to anyone . I am done talking . I do not care when asked his last bowel movement. Per nursing, patient denies suicidal thoughts, other safety concerns. Reports he has no bowel movement x4 days. Medication this morning was held until after the ECT. He also was given citrate magnesium x1. Pending effect. 04/15: made bowel movement. ECT #2 tomorrow. no change in mood or presentation as of today. T/C increasing modafanil to 200 mg sometime next week. 04/16: completed ECT without incident. no FLOWERS today. no change in presentation otherwise. continue current mgmt. ECT #3 saturday. 04/17/2025: No changes. ECT # 3 Saturday04/19/202504/18: no changes 04/19: completed ECT #3 today. no FLOWERS, no change in presentation, no change in mood. continue current mgmt. T/C modafanil increase. 04/20: mood starting to improve. laughed, affect brighter and more flexible. ECT tomorrow, NPO after midnight. continue current mgmt otherwise. 04/21: irritable at afternoon ECT. short today. continue current mgmt. 04/22: not irritable, appears depressed, says mood is unchanged. ECT tomorrow. continue current mgmt. strongly consider increase in modafanil dosing. 04/23/2025: Patient seen ECT completed bilaterally. Patient with markedly poor ADLs almost catatonic like allowing himself to be covered in feces not showering or caring for himself. Change ECT to 0.25 would follow-up on response to bilateral treatment if to withdrawn would may be secondary to bilateral and might consider return to right unilateral. Wellbutrin lowered to 300 mg modafinil was started at 100 mg can consider increase to 150 mg targeting apathy lethargy. Patient started on lorazepam 1 mg p.o. t.i.d. had test doses and seemed significantly improved with more fluid speech and increase range of affect hold lorazepam night prior to ECT 04/24/25: Patient slept for 8 hours, no appetite issues. Denies SI/SIB/HI/AVH. Report anxiety a 2/10 and anxiety an 8/10 which he says he does not feel much different yet from ECT. He denies short term memory. He denies FLOWERS or tireness now but says shortly after ECT he had FLOWERS from yesterday which has been gone. He reports normal BM which laxative was held yesterday. Observed patient spent couple hours in dinning areas, eating out in activity room and spent time watching TV. Nursing also reports patient attended group in the art room as well. He also showered yesterday. He is visible, but quiet keep to self, flat affect, depressed mood. Slightly improvement compare to last visit that this provider saw him about 1-2 weeks ago. Ativan started yesterday which seem to have some effects. 04/25/25: Patient slept for 8 hours, compliant with medications, denies side effects. Deny feeling tired on Ativan. Per nursing patient have incident of incontinence of feces yesterday. Therefore Colace and MiraLax and senna has been held. Notes on to hold when has loose stools. Patient denies safety concerns. Reported the same anxiety and depression level. He is more in bed today compared to yesterday but was out for meals. Flat affect, fair eye contact, resting in room. Attended no groups. No changes in terms of mental status. May have ECT on Saturday morning. 04/26: in bed after ECT. flat, withdrawn, slowed, soft. states his mood remains the same as before, no better and no worse. agreeable to increase modafanil to 150 mg. no apparent cognitive or memory deficits. 04/27: perhaps less slowed than recently. hold ativan this afternoon and overnight. NPO past MN. continue bifrontal ECT in the morning. 04/28: faster and more flexible affect. feels he is improving. decrease ativan from 1 mg TID to 0.5 mg TID. otherwise continue current mgmt. 04/29: as for yesterday. continue current mgmt. hold ativan after 3, NPO after MN. ECT in the morning. 04/30: ECT today uneventful. increase modafanil to 200 tomorrow. DC ativan after saturday morning dose. ECT saturday. NPO past MN saturday. otherwise continue current mgmt. 05/01: Continue current management and treatment plan. 05/02: continue current management and treatment plan. 05/03: ECT #9 completed uneventfully this morning. mood remains improved but pt still spending much of the day in bed with depressive facies. continue current mgmt. 05/04: appears a bit brighter, awake this morning. ECT #10 tomorrow. continue current mgmt. 05/05: poorer hygiene, not showering. reporting mood trending down again. open to increasing modafanil. continue current mgmt for now. 05/06: reports he showered and mood somewhat improved. amenable to increase modafanil to 300 mg as of tomorrow. ECT tomorrow. NPO p MN. Reason for continued inpatient stay Substantial Risk for: inability to function and rapid decompensation Time Spent With Patient Time: Total time managing care of this patient today __25__ minutes.
[2025-05-06 20:00] VITALS: BP 105/57; PULSE 64; RESP 16; TEMP 36.4; O2SAT 97
[2025-05-07] VITALS (10 sets, daily range): BP systolic 107–149; BP diastolic 62–96; PULSE 63–92; RESP 16–21; TEMP 36.2–37; O2SAT 92–100
[2025-05-07] MEDS: 0.9 % Sodium Chloride Flush 10 ML SYRINGE IVFLUSH ×3 (09:36→20:33)
--- NOTE | 2025-05-07 10:53 | HO.ANESPROP2 ---
[facility] Active Problems Active Problems: All Active Problems (Updated 05/03/25 @ 09:36 by Jackelyn Mullen, DNP, IT SECURITY CONSULTANT-BC) CKD (chronic kidney disease) (Acute) CVA (cerebral vascular accident) (Acute) Abnormal head CT (Acute) JUVENTINO (acute kidney injury) (Acute) Depression (Acute) Bipolar disorder (Acute) H/O gastric sleeve (Acute) Past Medical History Medical History Obesity LUIS (obstructive sleep apnea) HLD (hyperlipidemia) HTN (hypertension) CVA (cerebral vascular accident) Functional capacity: independent ambulation Family History Family history of problems with anesthesia: No Surgical History History of Problems with Anesthesia: No Social History Social History Household Members: Other Household Members Other:: transitional housing Housing: Other Do you presently have visiting nurse or other home services: No Patient Tobacco Use Status: Never used Tobacco Second Hand Smoke Exposure: Yes Currently Displaying Signs/Symptoms of Drug Intoxication Withdrawal: No Have you been hit, kicked, punched, or otherwise hurt by someone within the past year? If so, by whom?: No Do you feel safe in your current relationship?: No Current Relationship Is there a partner from a previous relationship who is making you feel unsafe now?: No Are you made to feel afraid or neglected: No Advance Directives: No Advance Directives Information Provided: No Do you have thoughts of harming others: None Do you have a plan to hurt others: No Plan Recently lost weight without trying: No Eating poorly because of decreased appetite: No Nutrition Risks: No Nutritional Risk Poor oral hygiene: Yes (very dry scalp) service: No Sexual orientation: Straight/Heterosexual Meds Allergies Allergy/AdvReac Type Severity Reaction Status Date / Time pumpkin Allergy Unknown Unknown Verified 12/24/24 12:26 Active Medications: Current Medications Acetaminophen (Acetaminophen 325 Mg Tablet) 650 mg PO Q6H PRN PRN Reason: Headache/Pain, Scale 1-10 Last Admin: 04/14/25 20:25 Dose: 650 mg Al Hydroxide/Mg Hydroxide (Magnesium Hydrox/Alum Hydrox 30 Ml Oral.Susp) 30 ml PO Q6H PRN PRN Reason: Heartburn/Nausea Aspirin (Aspirin Enteric Coated 81 Mg Tablet.Dr) 81 mg PO DAILY JENNIFER Last Admin: 05/06/25 08:48 Dose: 81 mg Atorvastatin Calcium (Atorvastatin Calcium 20 Mg Tablet) 20 mg PO BEDTIME [facility] Last Admin: 05/06/25 21:34 Dose: 20 mg Bisacodyl (Bisacodyl 5 Mg Tablet.Dr) 10 mg PO DAILY PRN PRN Reason: severe Constipation Last Admin: 04/20/25 08:57 Dose: 10 mg Bupropion HCl (Bupropion Hcl Xl 300 Mg Tab.Er.24h) 300 mg PO DAILY [facility] Last Admin: 05/06/25 08:48 Dose: 300 mg Docusate Sodium (Docusate Sodium 100 Mg Capsule) 100 mg PO BID PRN PRN Reason: constipation Hydroxyzine HCl (Hydroxyzine Hcl 25 Mg Tablet) 25 mg PO Q6H PRN PRN Reason: mild anxiety Last Admin: 03/26/25 23:24 Dose: 25 mg Lurasidone HCl (Lurasidone Hcl 40 Mg Tablet) 40 mg PO DAILY@1700 [facility] Last Admin: 05/06/25 17:21 Dose: 40 mg Magnesium Hydroxide (Milk Of Magnesia 30 Ml Oral.Susp) 30 ml PO DAILY PRN PRN Reason: Constipation Last Admin: 04/17/25 10:24 Dose: 30 ml Modafinil (Modafinil 100 Mg Tablet) 300 mg PO DAILY [facility] Naloxone HCl (Naloxone Hcl 0.4 Mg/Ml Vial) 0.04 mg IVPUSH Q5M PRN PRN Reason: Excessive sedation or RR < 8 Naloxone HCl (Naloxone Hcl 0.4 Mg/Ml Vial) 0.04 mg IVPUSH Q5M PRN PRN Reason: Excessive sedation or RR < 8 Nicotine (Nicotine 21 Mg Patch.Td24) 21 mg TRANSDERMA DAILY PRN PRN Reason: nicotine craving Nicotine Polacrilex (Nicotine Polacrilex 2 Mg Gum) 2 mg BUCCAL Q2H PRN PRN Reason: Nicotine Cravings Olanzapine (Olanzapine 5 Mg Tablet) 5 mg PO BID PRN PRN Reason: agitation Ondansetron HCl (Ondansetron Odt 8 Mg Tab.Rapdis) 8 mg TRANSLINGU Q8H PRN PRN Reason: Nausea and Vomiting Polyethylene Glycol (Polyethylene Glycol 3350 17 Gm Powd.Pack) 17 gm PO DAILY PRN PRN Reason: constipation Senna (Sennosides 8.6 Mg Tablet) 17.2 mg PO BEDTIME PRN PRN Reason: Constipation Sodium Chloride (0.9 % Sodium Chloride Flush 10 Ml Syringe) 10 ml IVFLUSH QSHIFT JENNIFER Last Admin: 05/07/25 09:36 Dose: 10 ml Trazodone HCl (Trazodone Hcl 50 Mg Tablet) 50 mg PO BEDTIME MRX1 PRN PRN Reason: Insomnia Last Admin: 04/05/25 23:14 Dose: 50 mg Exam Height,Weight and Vital Signs: Height 5 ft 9 in Weight 99.065 kg Last Vital Signs Temp 98.5 F 05/07/25 07:43 Pulse 63 05/07/25 07:43 Resp 16 05/07/25 07:43 BP 107/65 05/07/25 07:43 Pulse Ox 96 05/07/25 07:43 O2 Del Method Room Air 05/07/25 07:43 O2 Flow Rate 2 05/05/25 08:30 Pertinent Lab Results Pertinent Lab Results: Laboratory Tests 03/26/25 03/26/25 03/27/25 14:42 15:45 08:31 WBC 9.9 RBC 4.34 L Hgb 12.8 L Hct 38.3 L MCV 88.2 MCH 29.5 MCHC 33.4 RDW 14.6 Plt Count 191 MPV 10.6 Immature Gran % (Auto) 0.2 Neut % (Auto) 61.2 Lymph % (Auto) 28.9 [place] % (Auto) 8.8 Eos % (Auto) 0.7 Baso % (Auto) 0.2 Lymph # (Auto) 2.9 [place] # (Auto) 0.9 Eos # (Auto) 0.1 Baso # (Auto) 0.0 Abs Immat Gran (auto) 0.02 Absolute Neuts (auto) 6.1 Absolute Nucleated RBC 0.000 Nucleated RBC % (auto) 0.0 Sodium 138 143 Potassium 4.4 4.2 Chloride 103 106 Carbon Dioxide 26 23 Anion Gap 13 18 BUN 18 H 16 Creatinine 1.55 H 1.19 Estim Creat Clear Calc 65.6 86.0 Estimated GFR 48 > 60 POC Glucose Random Glucose 93 78 Estimat Average Glucose 91 Hemoglobin A1c % 4.8 Calcium 9.0 9.0 Total Bilirubin 1.1 H AST 28 ALT 11 Alkaline Phosphatase 62 B-Natriuretic Peptide Total Protein 6.0 L Albumin 3.7 Triglycerides 66 Cholesterol 153 LDL Cholesterol, Calc 92 HDL Cholesterol 48 TSH 3.31 Free T4 1.09 Urine Color Yellow Urine Appearance Cloudy Urine pH 5.5 Ur Specific [place] 1.015 Urine Protein 30 (1+) H Urine Glucose (UA) Negative Urine Ketones Negative Urine Blood Negative Urine Nitrite Negative Ur Leukocyte Esterase Trace H Urine RBC 0-2 Urine WBC 0-5 Ur Squamous Epith Cells 6-10 Urine Bacteria None Seen Hyaline Casts >20 Salicylates < 5.0 L Urine Opiates Screen Not Detected Ur Buprenorphine Scrn Not Detected Ur Oxycodone Screen Not Detected Urine Methadone Screen Not Detected Urine Fentanyl Screen Not Detected Acetaminophen < 3 Ur Barbiturates Screen Not Detected Ur Phencyclidine Scrn Not Detected Ur Amphetamines Screen Not Detected U Benzodiazepines Scrn Not Detected Urine Cocaine Screen Not Detected U Marijuana (THC) Screen Not Detected Ethyl Alcohol < 10 T.pallidum Ab (EIA) Influenza Type A (PCR) NEGATIVE Influenza Type B (PCR) NEGATIVE RSV RNA Qual (PCR) NEGATIVE SARS-CoV-2 RNA (RT-PCR) NEGATIVE 04/06/25 04/07/25 04/07/25 14:28 08:07 21:30 WBC 9.1 RBC 4.59 L Hgb 13.4 L Hct 40.9 L MCV 89.1 MCH 29.2 MCHC 32.8 RDW 14.0 Plt Count 303 D MPV 10.6 Immature Gran % (Auto) 0.4 Neut % (Auto) 58.1 Lymph % (Auto) 32.8 [place] % (Auto) 6.4 Eos % (Auto) 2.1 Baso % (Auto) 0.2 Lymph # (Auto) 3.0 [place] # (Auto) 0.6 Eos # (Auto) 0.2 Baso # (Auto) 0.0 Abs Immat Gran (auto) 0.04 H Absolute Neuts (auto) 5.3 Absolute Nucleated RBC 0.000 Nucleated RBC % (auto) 0.0 Sodium 143 Potassium 4.6 Chloride 105 Carbon Dioxide 28 Anion Gap 15 BUN 17 H Creatinine 1.35 Estim Creat Clear Calc 75.5 Estimated GFR 56 POC Glucose Random Glucose 96 Estimat Average Glucose Hemoglobin A1c % Calcium 9.4 Total Bilirubin 0.6 AST 26 ALT 23 Alkaline Phosphatase 66 B-Natriuretic Peptide Total Protein 6.4 L Albumin 3.9 Triglycerides Cholesterol LDL Cholesterol, Calc HDL Cholesterol TSH 2.42 Free T4 Urine Color Yellow Urine Appearance Clear Urine pH 6.0 Ur Specific [place] 1.010 Urine Protein Negative Urine Glucose (UA) Negative Urine Ketones Negative Urine Blood Negative Urine Nitrite Negative Ur Leukocyte Esterase Negative Urine RBC Urine WBC Ur Squamous Epith Cells Urine Bacteria Hyaline Casts Salicylates Urine Opiates Screen Ur Buprenorphine Scrn Ur Oxycodone Screen Urine Methadone Screen Urine Fentanyl Screen Acetaminophen Ur Barbiturates Screen Ur Phencyclidine Scrn Ur Amphetamines Screen U Benzodiazepines Scrn Urine Cocaine Screen U Marijuana (THC) Screen Ethyl Alcohol T.pallidum Ab (EIA) Influenza Type A (PCR) Influenza Type B (PCR) RSV RNA Qual (PCR) SARS-CoV-2 RNA (RT-PCR) 04/10/25 04/20/25 04/23/25 09:18 20:47 10:35 WBC 8.6 RBC 4.73 Hgb 14.0 Hct 41.5 L MCV 87.7 MCH 29.6 MCHC 33.7 RDW 13.2 Plt Count 233 MPV 10.3 Immature Gran % (Auto) 0.5 H Neut % (Auto) 58.3 Lymph % (Auto) 33.4 [place] % (Auto) 5.9 Eos % (Auto) 1.6 Baso % (Auto) 0.3 Lymph # (Auto) 2.9 [place] # (Auto) 0.5 Eos # (Auto) 0.1 Baso # (Auto) 0.0 Abs Immat Gran (auto) 0.04 H Absolute Neuts (auto) 5.0 Absolute Nucleated RBC 0.000 Nucleated RBC % (auto) 0.0 Sodium 139 Potassium 4.6 Chloride 105 Carbon Dioxide 27 Anion Gap 12 BUN 21 H Creatinine 1.40 Estim Creat Clear Calc 73.3 Estimated GFR 54 POC Glucose 102 Random Glucose 87 Estimat Average Glucose Hemoglobin A1c % Calcium 8.8 D Total Bilirubin 0.8 AST 20 ALT 17 Alkaline Phosphatase 65 B-Natriuretic Peptide < 10 Total Protein 6.0 L Albumin 3.6 Triglycerides Cholesterol LDL Cholesterol, Calc HDL Cholesterol TSH Free T4 Urine Color Urine Appearance Urine pH Ur Specific [place] Urine Protein Urine Glucose (UA) Urine Ketones Urine Blood Urine Nitrite Ur Leukocyte Esterase Urine RBC Urine WBC Ur Squamous Epith Cells Urine Bacteria Hyaline Casts Salicylates Urine Opiates Screen Ur Buprenorphine Scrn Ur Oxycodone Screen Urine Methadone Screen Urine Fentanyl Screen Acetaminophen Ur Barbiturates Screen Ur Phencyclidine Scrn Ur Amphetamines Screen U Benzodiazepines Scrn Urine Cocaine Screen U Marijuana (THC) Screen Ethyl Alcohol T.pallidum Ab (EIA) Nonreactive Influenza Type A (PCR) Influenza Type B (PCR) RSV RNA Qual (PCR) SARS-CoV-2 RNA (RT-PCR) Airway Mallampati Class: III TM Dist: >3cm Neck ROM: Full Partial: Upper Loose/Missing/Broken Teeth: Yes and Upper Heart: RRR Lungs: CTA Assessment and Plan Assessment Anesthesia Assessment: Anesthesia Plan Discussed and Chart Reviewed Final Anesthetic Review Family History of Problems with Anesthesia: No History of Problems with Anesthesia: No NPO: Yes ASA Class: III Final Preanesthetic Review: Meds/Allgs Chart Reviewed, Consent Obtained/Reviewed and Anes Risks/Benef Reviewed Patient Risk: Intermediate Procedure Risk: Intermediate Anesthetic Plan Anesthetic Plan: GA Disposition: Standard PACU
[2025-05-07] MEDS: Lactated Ringers 1,000 ML 50 ML IVCONT (11:17)
--- NOTE | 2025-05-07 12:33 | MHC.SHP ---
Pre-Procedural Eval Section A - 24 Hr Update-Section A only Date of Service: 05/07/25 The patient is an INPATIENT: Yes Changes since office visit: Yes Patient answered all questions; No Cold of Flu in the past 2 weeks, No New Medical Problems and No Changes in Medication The patient has been examined within 24 hours of the surgical procedure. The History & Physical has been completed within 30 days and I have reviewed it.: Yes Section B - Complete if H&P > 30 days Chief Complaint: SI depression Allergies: Allergies Allergy/AdvReac Type Severity Reaction Status Date / Time pumpkin Allergy Unknown Unknown Verified 12/24/24 12:26 Plan I have reviewed the history and physical and performed a pertinent physical examination on my patient. No changes have occurred unless specified. Time Spent With Patient Time: Total time managing care of this patient today ____ minutes.
--- NOTE | 2025-05-07 13:48 | P.PNPSI_ITS ---
Subjective Subjective Date of Service: 05/07/25 Reason For Visit: SI depression Interim History: had ECT. appears brighter. no complaints or requests. per staff, flat, isolative. showered. brighter. taking meds. slept all NOC. Mental Status Exam Mental Status Exam Narrative: Appearance: Casually dressed, fairly groomed Behavior: Calm and cooperative, PMR Eye contact is good Speech: soft, nml rate, flattened prosody. Thought process logical and goal-directed Thought content: On treatment. Mood: trending better Affect: constricted, normo-intense SI: none expressed HI: none expressed VH/AH: none expressed Delusions: None expressed Insight/judgment: impaired Diagnostics Vital Signs (24Hr): Vital Signs - 24 hr 05/06/25 20:00 05/07/25 07:43 05/07/25 10:50 Temperature 97.6 F 98.5 F 97.2 F Pulse Rate 64 63 72 Respiratory Rate 16 16 16 Blood Pressure 105/57 L 107/65 111/74 Pulse Oximetry 97 96 98 Oxygen Delivery Method Room Air Room Air Oxygen Flow Rate 05/07/25 11:13 05/07/25 12:03 05/07/25 12:08 Temperature 97.5 F 98.5 F Pulse Rate 67 68 82 Respiratory Rate 20 18 20 Blood Pressure 129/86 129/86 149/96 H Pulse Oximetry 99 100 92 Oxygen Delivery Method Room Air Nasal Cannula with ETCO2 Nasal Cannula with ETCO2 Oxygen Flow Rate 4 4 05/07/25 12:13 05/07/25 12:18 05/07/25 12:33 Temperature Pulse Rate 92 81 79 Respiratory Rate 18 18 21 H Blood Pressure 139/62 133/92 H 144/85 H Pulse Oximetry 100 100 98 Oxygen Delivery Method Nasal Cannula with ETCO2 Nasal Cannula with ETCO2 Nasal Cannula with ETCO2 Oxygen Flow Rate 4 4 2 05/07/25 12:48 Temperature 98.6 F Pulse Rate 70 Respiratory Rate 20 Blood Pressure 134/79 Pulse Oximetry 96 Oxygen Delivery Method Room Air Oxygen Flow Rate BMI result Body Mass Index 32.2 Labs 04/23/25 10:35 04/23/25 10:35 Imaging Radiology Impressions: ITS Impressions Head CT 04/06/25 13:54 IMPRESSION: No acute intracranial hemorrhage. Bifrontal bitemporal lobes atrophy. Electronically signed by: Roque Guillen MD 04/06/2025 02:15 PM EDT Medications Medications Current Medications Acetaminophen (Acetaminophen 325 Mg Tablet) 650 mg PO Q6H PRN PRN Reason: Headache/Pain, Scale 1-10 Last Admin: 04/14/25 20:25 Dose: 650 mg Al Hydroxide/Mg Hydroxide (Magnesium Hydrox/Alum Hydrox 30 Ml Oral.Susp) 30 ml PO Q6H PRN PRN Reason: Heartburn/Nausea Aspirin (Aspirin Enteric Coated 81 Mg Tablet.) 81 mg PO DAILY [facility] Last Admin: 05/06/25 08:48 Dose: 81 mg Atorvastatin Calcium (Atorvastatin Calcium 20 Mg Tablet) 20 mg PO BEDTIME [facility] Last Admin: 05/06/25 21:34 Dose: 20 mg Bisacodyl (Bisacodyl 5 Mg Tablet.) 10 mg PO DAILY PRN PRN Reason: severe Constipation Last Admin: 04/20/25 08:57 Dose: 10 mg Bupropion HCl (Bupropion Hcl Xl 300 Mg Tab.Er.24h) 300 mg PO DAILY [facility] Last Admin: 05/06/25 08:48 Dose: 300 mg Docusate Sodium (Docusate Sodium 100 Mg Capsule) 100 mg PO BID PRN PRN Reason: constipation Hydroxyzine HCl (Hydroxyzine Hcl 25 Mg Tablet) 25 mg PO Q6H PRN PRN Reason: mild anxiety Last Admin: 03/26/25 23:24 Dose: 25 mg Lactated Ringer's (Lr) 1,000 mls @ 50 mls/hr IVCONT .Q20H [facility] Last Admin: 05/07/25 11:17 Dose: 50 mls/hr Lurasidone HCl (Lurasidone Hcl 40 Mg Tablet) 40 mg PO DAILY@1700 [facility] Last Admin: 05/06/25 17:21 Dose: 40 mg Magnesium Hydroxide (Milk Of Magnesia 30 Ml Oral.Susp) 30 ml PO DAILY PRN PRN Reason: Constipation Last Admin: 04/17/25 10:24 Dose: 30 ml Modafinil (Modafinil 100 Mg Tablet) 300 mg PO DAILY [facility] Naloxone HCl (Naloxone Hcl 0.4 Mg/Ml Vial) 0.04 mg IVPUSH Q5M PRN PRN Reason: Excessive sedation or RR < 8 Naloxone HCl (Naloxone Hcl 0.4 Mg/Ml Vial) 0.04 mg IVPUSH Q5M PRN PRN Reason: Excessive sedation or RR < 8 Nicotine (Nicotine 21 Mg Patch.Td24) 21 mg TRANSDERMA DAILY PRN PRN Reason: nicotine craving Nicotine Polacrilex (Nicotine Polacrilex 2 Mg Gum) 2 mg BUCCAL Q2H PRN PRN Reason: Nicotine Cravings Olanzapine (Olanzapine 5 Mg Tablet) 5 mg PO BID PRN PRN Reason: agitation Ondansetron HCl (Ondansetron Odt 8 Mg Tab.Rapdis) 8 mg TRANSLINGU Q8H PRN PRN Reason: Nausea and Vomiting Polyethylene Glycol (Polyethylene Glycol 3350 17 Gm Powd.Pack) 17 gm PO DAILY PRN PRN Reason: constipation Senna (Sennosides 8.6 Mg Tablet) 17.2 mg PO BEDTIME PRN PRN Reason: Constipation Sodium Chloride (0.9 % Sodium Chloride Flush 10 Ml Syringe) 10 ml IVFLUSH QSHIFT JENNIFER Last Admin: 05/07/25 09:36 Dose: 10 ml Trazodone HCl (Trazodone Hcl 50 Mg Tablet) 50 mg PO BEDTIME MRX1 PRN PRN Reason: Insomnia Last Admin: 04/05/25 23:14 Dose: 50 mg Allergies Allergies Allergy/AdvReac Type Severity Reaction Status Date / Time pumpkin Allergy Unknown Unknown Verified 12/24/24 12:26 Assessment & Plan Assessment & Plan (1) CKD (chronic kidney disease): Qualifiers: Chronic kidney disease stage: stage 3 (moderate) Chronic kidney disease stage 3 subtype: stage 3a (GFR 45-59) Qualified Code(s): N18.31 - Chronic kidney disease, stage 3a Status: Acute Code(s): N18.9 - Chronic kidney disease, unspecified Assessment and Plan: Patient likely has some mild chronic kidney disease, 3a no proteinuria on most recent UA patient has mild renal disease, given medical history has low risk of developing ESRD requiring dialysis- ok for midline placement. Discussed with Dr Moody. (2) Depression: Qualifiers: Depression Type: unspecified Qualified Code(s): F32.A - Depression, unspecified Status: Acute Code(s): F32.A - Depression, unspecified (3) CVA (cerebral vascular accident): Status: Acute Code(s): I63.9 - Cerebral infarction, unspecified Plan 03/27: feels latuda 120 has been helpful. however, remains depressed. add wellbutrin XL 150 daily for depression, plan to increase to 300 mg daily in 3 days. may also consider ECT due to lack of improvement despite numerous recent hospitalizations + lethality of suicide attempts + recent self-abnegating behaviors. 03/28: no change in presentation, no requests or complaints. started wellbutrin 150 today. continue current mgmt 03/29/25: Slept well, no issues with appetite. Observed out on the unit, attended groups, engaging. Reports depression and 03/21, denies anxiety. Constricted affect, congruent with mood. Denies safety concerns. Compliant with medications. Denies side effects from Wellbutrin. Continue to encourage groups. 03/30/25: Patient slept for 6 hours, was medication compliant. He attended 2 groups yesterday, however today he is more isolated, in bed a lot more time, declines a couple groups. Reports depressed but no anxiety, flat affect, depressed, but cooperative during one-to-one assessment. He is receptive with the plan of Wellbutrin increased up to 300 mg for depression. Reports passive SI, denies plan or intention. Denies other safety concerns. Encourage patient to go to groups and shower daily. Increase Wellbutrin XL to 300 mg daily for depression. He reported that he has bipolar type II. 03/31: Laying in bed. keeping to self. showered. patient reports feeling depressed ; pt stated, I'm not having a good day. I don't want to do anything . flat affect. denies SI/HI/VH/AH. Per nursing, slept 8 hours. encouraged to attend groups. continue current tx plan. 04/01/25: Patient slept for 8 hours, poor meal intake yesterday but was medication compliant. Denies side effects. When asked about if he has poor appetite as he ate only 50 of breakfast, and 25 for lunch and not eating dinner, he said because I did not do the menu, so I got what I do not like . He shower yesterday, continued to reports depression 03/21. Denied anxiety. He does not feel any difference from Wellbutrin 150 when and when it was increased up to 300 mg. Denies SI/SIB/HI/AVH, isolative self, he plans to attend groups today. This provider spoke with patient in length regarding medication trials. Per his report, has been trying so many antidepressants they just do not work, and continued to be depressed. Some of them are Zoloft, Paxil, Effexor, Celexa, Prozac, Cymbalta, Lexapro. He also having history of taking Zyprexa more than 20 years ago due to hearing voices. Then the voices was calm. He never has a take it again after. History of Abilify but not sure if it is working as he can not recall. Regarding ADLs: He said that he had food at the long term twice a day, but he is not showering for many days despite the fact that staff asked him to do so I just do not care about being clean . Reports very low energy, low motivation, been increased suicidal thoughts and depression. He used to love music and reading but not interested in doing anything like that anymore. Reported that he had gastric sleeve surgery back in August 2023 which he lost 230 lb. He weight 447 lb prior to the surgery. He identified that after the surgery he has been more depressed slowly over months. There was a time that he wanted to starve myself so I can when asked is that you that he has stopped eating at home. He also identified that he feel more depressed after surgery as he is not able to over eating like he did before. Family mental health illnesses: Reports that who both of his parents was depressed. Mom 11 years ago. 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 History of ECTs: Reports he had history of ECTs in 2010 when he was at in [facility].He felt worse after the treatment everything seems like a dream . He clarified that immediately after the treatment he feel that way which could be a side effects of ECT but not permanent. Educate patient on possible side effects ECTs. Patient denies having seizure during ECTs treatment, no seizure history no cardiac conditions/disease history. Reports history of hypertension, but not anymore. He also has been admitted to different hospitals for psychiatric admissions in the past couple of months. Reports staying at [facility] in December for a month. New hospital in the area names [facility]) in October for another month. Per email from his OP team- clinical director at [facility], they also express concerns of patient's conditions. It is noted that their concerns are very consistent with patient' report here on the unit. He also has been admitted to different hospitals for psychiatric admissions in the past couple of months. Reports staying at [facility] in December for a month. New hospital in the area names [facility]) in October for another month. Per email from his OP team- clinical director at [facility], they also express concerns of patient's conditions. It is noted that their concerns are very consistent with patient' report here on the unit. Alfredito has been in and out on inpatient level of care since October of this year, I believe every month, for a majority of the time. He was recently discharged from [facility] after a 1 month stay and within two hours of returning home wanted to return to the hospital, saying he was unwell, and within one day was sectioned by [facility], which is how he ended up with you now. He has been coming home and intentionally starving himself, even not eating for up to 1 week. We have known Alfredito for years and since this started in October, we have seen no significant improvement in his mental health or a return to baseline. In fact, we are observing his case as consistent with failure to thrive. We have been asking for him to be inpatient at [facility] or with you at [facility] for some time in order for him to be potentially considered for ECT level of treatment, if deemed appropriate. Multiple medication trials failture to target depressive symptoms. He will be a good candidate to get trial ECT treatment in combination with current medication regimens. Patient also agrees with the plan. We would start the treatment as soon as possible. Will discuss the case with in house psychiatrist-Dr. Ward to prepare for ECT treatment. Hope to start early next week. 04/02: Laying in bed. keeping to self. Patient continues to report feeling depressed; pt stated, I feel about the same. I spoke with the other provider and agreed to do ECT . He reports sleeping well. denies SI/HI/VH/AH. Encouraged to attend groups and shower. Continue current tx plan. 04/03: no changes- just started wellbutrin 04/04: no changes 04/05/25: report anxiety a 2-3/10 but still 8 for depression. No change since started Wellbutrin. He agrees to get Wellbutrin up to 450mg daily for depression. Isolative in room, staring up to the ceiling. Discuss with patient of option to start on Intuniv for severe depression. Patient declines it at this current time but agree to see Welbutrin increased would be helpful. He agrees with ECT. Encourage groups, he says he was at art group out to dinning area but there are too much so he went back to his room. Report not many groups offered over the weekends. 04/06/25: Patient slept for 6 hours, have a sleep study done last night. Reported that he did not sleep well. Appetite is okay. Mood is depressed /, denies anxiety today. Denies suicidal thoughts, but reports he has passive SI yesterday intrusive, just do not Wanna live anymore . Denies hallucinations. Address with patient of why he having bowel movement in the shower. He said it is just one episode. Reports he feel constipated. Agree with Colace. He also inform regarding the ECT which was approved by the insurance. He compliant with medication, however reports he has not feeling any difference in terms of depression at since started on Wellbutrin. Encourage groups attendance. Observe him later on during the day reading at a table in dining area. Colace 100mg BID for constipation. ECT consult placed: Patient may be seen by tomorrow by Dr. Ward. Procedure done preparing for the ECT: Head CT scan negative, EKG normal sinus rhythm, Incomplete right bundle branch block. Borderline ECG_ no change when compare to previous EKG. Unremarkable CBC with diff. 04/07/25: Per hospitalist note: ECT risk stratification Patient without previous problems with anesthesia, has previously undergone ECT RCRI 0 points, no further cardiac workup or treatment indicated at this time EKG showed QT interval WNL, no evidence of ischemic changes Based on stated PMH, HPI, and physical exam, there are no apparent medical contraindications to the planned procedure. Patient is complaining of pelvic discomfort and constipation. We will add therapy with Senokot, MiraLax and obtain urinalysis to assess for urinary tract infection. Continue treatment with atorvastatin and aspirin for history of stroke and hyperlipidemia. 04/07/25: Patient compliant with medication, reports due to the pain abdominal, he could not sleep well last night. Continued to reports depressions 8/10, anxiety 4/10 today related to the pain. Denies suicidal thoughts or voices, isolated. Shower yesterday. Review with patient test need to be done prior to having ECT. Patient met with Dr. Ward and hospitalist for ECT clearance. Due to the pain, constipated, more laxative ordered today. Also UA other by hospitalist to rule out any infection. He is flat, low energy, low motivation, withdrawal, in room mostly, but come out to other rooms to talk to the providers 04/08/25: Patient slept for 8 hours, compliant with medications, denies side effect. Met with him in his room, reported that he slept better last night, having good bowel movement, denies diarrhea is. Informed him regarding the labs work/and UA that was negative to rule out UTI. Denies pain. Explained to patient regarding pre ECT procedures/test to prepare for the day that he going to start. We will start ECT on Saturday. Per Dr. Ward, we will taper down on Latuda, start him on Modafinil low dose to help with severe depression. Continued to reports moderate to severe depression. Denies suicidal thoughts or hallucinations. 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 He denied any significant or excessive drug exposure. I do not find any focal lesion, acute or chronic, suggestive of stroke. There was no contraindication to treatment with ECT. Otherwise treatment of this condition is supportive, symptomatic and conservative Taper down on Latuda from 120 down to 100 mg daily at 17:00 for mood. Start on Modefinil 100ng daily for severe depression, low energy, poor concentration, poor motivation. ECT will be scheduled next week on Saturday. We will received treatment for Saturday/Saturday and Saturday. 04/09/25: Patient denies pain, normal bowel movement, slept well and compliant with medications. Denies side effects. Denies suicidal thoughts or hallucinations but reports mild on anxiety and moderate to severe depression. Patient appeared to be disheveled. Encourage patient to be out of bed in attended to groups included OT groups which observe he is visible in day room after the conversation. The OT will do the [place] for pre ECT next week on Saturday prior the ECT. He started modafinil 50 mg this morning. Indication and side effects explained to patient. Patient is receptive with the plan. Correction: Modefinill 50mg daily. MOCA scheduled next week prior to ECT. 04/10:Laying in bed most of morning. Patient continues to report feeling depressed. He reports looking forward to ECT; pt stated, I think it will be a positive step to get ECT . denies SI/HI/VH/AH. Encouraged to get out of bed. Continue tx plan 04/11: Per nursing, pt did not get out of bed yesterday. Observed laying in bed this morning; encouraged to attend groups and shower. Patient continues to report feeling depressed. denies SI/HI/VH/AH. Encouraged to get out of bed. Continue tx plan. 04/12: continue current tx plan 04/13: stably depressed. PMR. start ECT tomorrow, otherwise continue current mgmt. NPO past MN. 04/14/25: got his first ECT treatment this afternoon. Patient slept for 6 hours, was medication compliant. However, this morning due to the delay of the ECT treatment, he was not happy about the delay into the afternoon. He appeared to be frustrated, irritable, and not cooperative with this provider I do not want to talk to anyone . I am done talking . I do not care when asked his last bowel movement. Per nursing, patient denies suicidal thoughts, other safety concerns. Reports he has no bowel movement x4 days. Medication this morning was held until after the ECT. He also was given citrate magnesium x1. Pending effect. 04/15: made bowel movement. ECT #2 tomorrow. no change in mood or presentation as of today. T/C increasing modafanil to 200 mg sometime next week. 04/16: completed ECT without incident. no FLOWERS today. no change in presentation otherwise. continue current mgmt. ECT #3 saturday. 04/17/2025: No changes. ECT # 3 Saturday04/19/202504/18: no changes 04/19: completed ECT #3 today. no FLOWERS, no change in presentation, no change in mood. continue current mgmt. T/C modafanil increase. 04/20: mood starting to improve. laughed, affect brighter and more flexible. ECT tomorrow, NPO after midnight. continue current mgmt otherwise. 04/21: irritable at afternoon ECT. short today. continue current mgmt. 04/22: not irritable, appears depressed, says mood is unchanged. ECT tomorrow. continue current mgmt. strongly consider increase in modafanil dosing. 04/23/2025: Patient seen ECT completed bilaterally. Patient with markedly poor ADLs almost catatonic like allowing himself to be covered in feces not showering or caring for himself. Change ECT to 0.25 would follow-up on response to bilateral treatment if to withdrawn would may be secondary to bilateral and might consider return to right unilateral. Wellbutrin lowered to 300 mg modafinil was started at 100 mg can consider increase to 150 mg targeting apathy lethargy. Patient started on lorazepam 1 mg p.o. t.i.d. had test doses and seemed significantly improved with more fluid speech and increase range of affect hold lorazepam night prior to ECT 04/24/25: Patient slept for 8 hours, no appetite issues. Denies SI/SIB/HI/AVH. Report anxiety a 2/10 and anxiety an 8/10 which he says he does not feel much different yet from ECT. He denies short term memory. He denies FLOWERS or tireness now but says shortly after ECT he had FLOWERS from yesterday which has been gone. He reports normal BM which laxative was held yesterday. Observed patient spent couple hours in dinning areas, eating out in activity room and spent time watching TV. Nursing also reports patient attended group in the art room as well. He also showered yesterday. He is visible, but quiet keep to self, flat affect, depressed mood. Slightly improvement compare to last visit that this provider saw him about 1-2 weeks ago. Ativan started yesterday which seem to have some effects. 04/25/25: Patient slept for 8 hours, compliant with medications, denies side effects. Deny feeling tired on Ativan. Per nursing patient have incident of incontinence of feces yesterday. Therefore Colace and MiraLax and senna has been held. Notes on to hold when has loose stools. Patient denies safety concerns. Reported the same anxiety and depression level. He is more in bed today compared to yesterday but was out for meals. Flat affect, fair eye contact, resting in room. Attended no groups. No changes in terms of mental status. May have ECT on Saturday morning. 04/26: in bed after ECT. flat, withdrawn, slowed, soft. states his mood remains the same as before, no better and no worse. agreeable to increase modafanil to 150 mg. no apparent cognitive or memory deficits. 04/27: perhaps less slowed than recently. hold ativan this afternoon and overnight. NPO past MN. continue bifrontal ECT in the morning. 04/28: faster and more flexible affect. feels he is improving. decrease ativan from 1 mg TID to 0.5 mg TID. otherwise continue current mgmt. 04/29: as for yesterday. continue current mgmt. hold ativan after 3, NPO after MN. ECT in the morning. 04/30: ECT today uneventful. increase modafanil to 200 tomorrow. DC ativan after saturday morning dose. ECT saturday. NPO past MN saturday. otherwise continue current mgmt. 05/01: Continue current management and treatment plan. 05/02: continue current management and treatment plan. 05/03: ECT #9 completed uneventfully this morning. mood remains improved but pt still spending much of the day in bed with depressive facies. continue current mgmt. 05/04: appears a bit brighter, awake this morning. ECT #10 tomorrow. continue current mgmt. 05/05: poorer hygiene, not showering. reporting mood trending down again. open to increasing modafanil. continue current mgmt for now. 05/06: reports he showered and mood somewhat improved. amenable to increase modafanil to 300 mg as of tomorrow. ECT tomorrow. NPO p MN. 05/07: ECT #10 completed. mood trending better, more expressive. continue current mgmt. Reason for continued inpatient stay Substantial Risk for: harm to self, inability to function and rapid decompensation Time Spent With Patient Time: Total time managing care of this patient today __25__ minutes.
[2025-05-07] MEDS: Aspirin Enteric Coated 81 MG TABLET.DR PO (14:37)
[2025-05-07] MEDS: buPROPion HCl XL 300 MG TAB.ER.24H PO (14:37)
--- NOTE | 2025-05-07 14:41 | PC.NURSE ---
Due to patient having ECT later in the day (back on the unit around 1300), Provider Jake Thomas agreed to pt receiving his scheduled morning medications late (given after he ate lunch).
[2025-05-08] MEDS: 0.9 % Sodium Chloride Flush 10 ML SYRINGE IVFLUSH ×3 (00:30→16:07)
[2025-05-08 07:44] VITALS: BP 120/62; PULSE 62; RESP 18; TEMP 36.7; O2SAT 99
[2025-05-08] MEDS: Aspirin Enteric Coated 81 MG TABLET.DR PO (09:00)
[2025-05-08] MEDS: buPROPion HCl XL 300 MG TAB.ER.24H PO (09:00)
[2025-05-08 19:50] VITALS: BP 112/54; PULSE 71; RESP 16; TEMP 36.7; O2SAT 94
--- NOTE | 2025-05-08 20:54 | HO.PSYCHPN ---
Subjective Subjective Date of Service: 05/08/25 Reason For Visit: SI depression Interim History: appears brighter, states he is feeling improved in mood. per staff, increase in affective range. felt brighter in afternoon. more time in the milieu. denies SI/HI/AVH. dep 5 anx 2. slept 7 hours. Mental Status Exam Mental Status Exam Narrative: Appearance: Casually dressed, fairly groomed Behavior: Calm and cooperative, PMR Eye contact is good Speech: soft, nml rate, flattened prosody. Thought process logical and goal-directed Thought content: On treatment. Mood: trending better Affect: constricted, normo-intense SI: none expressed HI: none expressed VH/AH: none expressed Delusions: None expressed Insight/judgment: impaired Diagnostics Vital Signs (24Hr): Vital Signs - 24 hr 05/08/25 07:44 Temperature 98.1 F Pulse Rate 62 Respiratory Rate 18 Blood Pressure 120/62 Pulse Oximetry 99 Oxygen Delivery Method Room Air BMI result Body Mass Index 32.2 Labs 04/23/25 10:35 04/23/25 10:35 Imaging Radiology Impressions: ITS Impressions Head CT 04/06/25 13:54 IMPRESSION: No acute intracranial hemorrhage. Bifrontal bitemporal lobes atrophy. Electronically signed by: Roque Guillen MD 04/06/2025 02:15 PM EDT Medications Medications Current Medications Acetaminophen (Acetaminophen 325 Mg Tablet) 650 mg PO Q6H PRN PRN Reason: Headache/Pain, Scale 1-10 Last Admin: 04/14/25 20:25 Dose: 650 mg Al Hydroxide/Mg Hydroxide (Magnesium Hydrox/Alum Hydrox 30 Ml Oral.Susp) 30 ml PO Q6H PRN PRN Reason: Heartburn/Nausea Aspirin (Aspirin Enteric Coated 81 Mg Tablet.) 81 mg PO DAILY [facility] Last Admin: 05/08/25 09:00 Dose: 81 mg Atorvastatin Calcium (Atorvastatin Calcium 20 Mg Tablet) 20 mg PO BEDTIME [facility] Last Admin: 05/07/25 20:29 Dose: 20 mg Bisacodyl (Bisacodyl 5 Mg Tablet.) 10 mg PO DAILY PRN PRN Reason: severe Constipation Last Admin: 04/20/25 08:57 Dose: 10 mg Bupropion HCl (Bupropion Hcl Xl 300 Mg Tab.Er.24h) 300 mg PO DAILY [facility] Last Admin: 05/08/25 09:00 Dose: 300 mg Docusate Sodium (Docusate Sodium 100 Mg Capsule) 100 mg PO BID PRN PRN Reason: constipation Hydroxyzine HCl (Hydroxyzine Hcl 25 Mg Tablet) 25 mg PO Q6H PRN PRN Reason: mild anxiety Last Admin: 03/26/25 23:24 Dose: 25 mg Lurasidone HCl (Lurasidone Hcl 40 Mg Tablet) 40 mg PO DAILY@1700 [facility] Last Admin: 05/08/25 17:17 Dose: 40 mg Magnesium Hydroxide (Milk Of Magnesia 30 Ml Oral.Susp) 30 ml PO DAILY PRN PRN Reason: Constipation Last Admin: 04/17/25 10:24 Dose: 30 ml Modafinil (Modafinil 100 Mg Tablet) 300 mg PO DAILY [facility] Last Admin: 05/08/25 09:00 Dose: 300 mg Naloxone HCl (Naloxone Hcl 0.4 Mg/Ml Vial) 0.04 mg IVPUSH Q5M PRN PRN Reason: Excessive sedation or RR < 8 Naloxone HCl (Naloxone Hcl 0.4 Mg/Ml Vial) 0.04 mg IVPUSH Q5M PRN PRN Reason: Excessive sedation or RR < 8 Nicotine (Nicotine 21 Mg Patch.Td24) 21 mg TRANSDERMA DAILY PRN PRN Reason: nicotine craving Nicotine Polacrilex (Nicotine Polacrilex 2 Mg Gum) 2 mg BUCCAL Q2H PRN PRN Reason: Nicotine Cravings Olanzapine (Olanzapine 5 Mg Tablet) 5 mg PO BID PRN PRN Reason: agitation Ondansetron HCl (Ondansetron Odt 8 Mg Tab.Rapdis) 8 mg TRANSLINGU Q8H PRN PRN Reason: Nausea and Vomiting Polyethylene Glycol (Polyethylene Glycol 3350 17 Gm Powd.Pack) 17 gm PO DAILY PRN PRN Reason: constipation Senna (Sennosides 8.6 Mg Tablet) 17.2 mg PO BEDTIME PRN PRN Reason: Constipation Sodium Chloride (0.9 % Sodium Chloride Flush 10 Ml Syringe) 10 ml IVFLUSH QSHIFT [facility] Last Admin: 05/08/25 16:07 Dose: 10 ml Trazodone HCl (Trazodone Hcl 50 Mg Tablet) 50 mg PO BEDTIME MRX1 PRN PRN Reason: Insomnia Last Admin: 04/05/25 23:14 Dose: 50 mg Allergies Allergies Allergy/AdvReac Type Severity Reaction Status Date / Time pumpkin Allergy Unknown Unknown Verified 12/24/24 12:26 Assessment & Plan Assessment & Plan (1) CKD (chronic kidney disease): Qualifiers: Chronic kidney disease stage: stage 3 (moderate) Chronic kidney disease stage 3 subtype: stage 3a (GFR 45-59) Qualified Code(s): N18.31 - Chronic kidney disease, stage 3a Status: Acute Code(s): N18.9 - Chronic kidney disease, unspecified Assessment and Plan: Patient likely has some mild chronic kidney disease, 3a no proteinuria on most recent UA patient has mild renal disease, given medical history has low risk of developing ESRD requiring dialysis- ok for midline placement. Discussed with Dr Moody. (2) Depression: Qualifiers: Depression Type: unspecified Qualified Code(s): F32.A - Depression, unspecified Status: Acute Code(s): F32.A - Depression, unspecified (3) CVA (cerebral vascular accident): Status: Acute Code(s): I63.9 - Cerebral infarction, unspecified Plan 03/27: feels latuda 120 has been helpful. however, remains depressed. add wellbutrin XL 150 daily for depression, plan to increase to 300 mg daily in 3 days. may also consider ECT due to lack of improvement despite numerous recent hospitalizations + lethality of suicide attempts + recent self-abnegating behaviors. 03/28: no change in presentation, no requests or complaints. started wellbutrin 150 today. continue current mgmt 03/29/25: Slept well, no issues with appetite. Observed out on the unit, attended groups, engaging. Reports depression and 03/21, denies anxiety. Constricted affect, congruent with mood. Denies safety concerns. Compliant with medications. Denies side effects from Wellbutrin. Continue to encourage groups. 03/30/25: Patient slept for 6 hours, was medication compliant. He attended 2 groups yesterday, however today he is more isolated, in bed a lot more time, declines a couple groups. Reports depressed but no anxiety, flat affect, depressed, but cooperative during one-to-one assessment. He is receptive with the plan of Wellbutrin increased up to 300 mg for depression. Reports passive SI, denies plan or intention. Denies other safety concerns. Encourage patient to go to groups and shower daily. Increase Wellbutrin XL to 300 mg daily for depression. He reported that he has bipolar type II. 03/31: Laying in bed. keeping to self. showered. patient reports feeling depressed ; pt stated, I'm not having a good day. I don't want to do anything . flat affect. denies SI/HI/VH/AH. Per nursing, slept 8 hours. encouraged to attend groups. continue current tx plan. 04/01/25: Patient slept for 8 hours, poor meal intake yesterday but was medication compliant. Denies side effects. When asked about if he has poor appetite as he ate only 50 of breakfast, and 25 for lunch and not eating dinner, he said because I did not do the menu, so I got what I do not like . He shower yesterday, continued to reports depression 03/21. Denied anxiety. He does not feel any difference from Wellbutrin 150 when and when it was increased up to 300 mg. Denies SI/SIB/HI/AVH, isolative self, he plans to attend groups today. This provider spoke with patient in length regarding medication trials. Per his report, has been trying so many antidepressants they just do not work, and continued to be depressed. Some of them are Zoloft, Paxil, Effexor, Celexa, Prozac, Cymbalta, Lexapro. He also having history of taking Zyprexa more than 20 years ago due to hearing voices. Then the voices was calm. He never has a take it again after. History of Abilify but not sure if it is working as he can not recall. Regarding ADLs: He said that he had food at the [facility] twice a day, but he is not showering for many days despite the fact that staff asked him to do so I just do not care about being clean . Reports very low energy, low motivation, been increased suicidal thoughts and depression. He used to love music and reading but not interested in doing anything like that anymore. Reported that he had gastric sleeve surgery back in August 2023 which he lost 230 lb. He weight 447 lb prior to the surgery. He identified that after the surgery he has been more depressed slowly over months. There was a time that he wanted to starve myself so I can when asked is that you that he has stopped eating at home. He also identified that he feel more depressed after surgery as he is not able to over eating like he did before. Family mental health illnesses: Reports that who both of his parents was depressed. Mom 11 years ago. 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 History of ECTs: Reports he had history of ECTs in 2010 when he was at in [facility].He felt worse after the treatment everything seems like a dream . He clarified that immediately after the treatment he feel that way which could be a side effects of ECT but not permanent. Educate patient on possible side effects ECTs. Patient denies having seizure during ECTs treatment, no seizure history no cardiac conditions/disease history. Reports history of hypertension, but not anymore. He also has been admitted to different hospitals for psychiatric admissions in the past couple of months. Reports staying at [facility] in December for a month. [facility] in the area names [facility]) in October for another month. Per email from his OP team- clinical director at [facility], they also express concerns of patient's conditions. It is noted that their concerns are very consistent with patient' report here on the unit. He also has been admitted to different hospitals for psychiatric admissions in the past couple of months. Reports staying at [facility] in December for a month. [facility] in the area names [facility]) in October for another month. Per email from his OP team- clinical director at [facility], they also express concerns of patient's conditions. It is noted that their concerns are very consistent with patient' report here on the unit. Alfredito has been in and out on inpatient level of care since October of this year, I believe every month, for a majority of the time. He was recently discharged from [facility] after a 1 month stay and within two hours of returning home wanted to return to the hospital, saying he was unwell, and within one day was sectioned by [facility], which is how he ended up with you now. He has been coming home and intentionally starving himself, even not eating for up to 1 week. We have known Alfredito for years and since this started in October, we have seen no significant improvement in his mental health or a return to baseline. In fact, we are observing his case as consistent with failure to thrive. We have been asking for him to be inpatient at [facility] or with you at [facility] for some time in order for him to be potentially considered for ECT level of treatment, if deemed appropriate. Multiple medication trials failture to target depressive symptoms. He will be a good candidate to get trial ECT treatment in combination with current medication regimens. Patient also agrees with the plan. We would start the treatment as soon as possible. Will discuss the case with in house psychiatrist-Dr. Ward to prepare for ECT treatment. Hope to start early next week. 04/02: Laying in bed. keeping to self. Patient continues to report feeling depressed; pt stated, I feel about the same. I spoke with the other provider and agreed to do ECT . He reports sleeping well. denies SI/HI/VH/AH. Encouraged to attend groups and shower. Continue current tx plan. 04/03: no changes- just started wellbutrin 04/04: no changes 04/05/25: report anxiety a 2-3 but still 03/21 for depression. No change since started Wellbutrin. He agrees to get Wellbutrin up to 450mg daily for depression. Isolative in room, staring up to the ceiling. Discuss with patient of option to start on Intuniv for severe depression. Patient declines it at this current time but agree to see Welbutrin increased would be helpful. He agrees with ECT. Encourage groups, he says he was at art group out to dinning area but there are too much so he went back to his room. Report not many groups offered over the weekends. 04/06/25: Patient slept for 6 hours, have a sleep study done last night. Reported that he did not sleep well. Appetite is okay. Mood is depressed 03/21, denies anxiety today. Denies suicidal thoughts, but reports he has passive SI yesterday intrusive, just do not Wanna live anymore . Denies hallucinations. Address with patient of why he having bowel movement in the shower. He said it is just one episode. Reports he feel constipated. Agree with Colace. He also inform regarding the ECT which was approved by the insurance. He compliant with medication, however reports he has not feeling any difference in terms of depression at since started on Wellbutrin. Encourage groups attendance. Observe him later on during the day reading at a table in dining area. Colace 100mg BID for constipation. ECT consult placed: Patient may be seen by tomorrow by Dr. Ward. Procedure done preparing for the ECT: Head CT scan negative, EKG normal sinus rhythm, Incomplete right bundle branch block. Borderline ECG_ no change when compare to previous EKG. Unremarkable CBC with diff. 04/07/25: Per hospitalist note: ECT risk stratification Patient without previous problems with anesthesia, has previously undergone ECT RCRI 0 points, no further cardiac workup or treatment indicated at this time EKG showed QT interval WNL, no evidence of ischemic changes Based on stated PMH, HPI, and physical exam, there are no apparent medical contraindications to the planned procedure. Patient is complaining of pelvic discomfort and constipation. We will add therapy with Senokot, MiraLax and obtain urinalysis to assess for urinary tract infection. Continue treatment with atorvastatin and aspirin for history of stroke and hyperlipidemia. 04/07/25: Patient compliant with medication, reports due to the pain abdominal, he could not sleep well last night. Continued to reports depressions 8/10, anxiety 4/10 today related to the pain. Denies suicidal thoughts or voices, isolated. Shower yesterday. Review with patient test need to be done prior to having ECT. Patient met with Dr. Ward and hospitalist for ECT clearance. Due to the pain, constipated, more laxative ordered today. Also UA other by hospitalist to rule out any infection. He is flat, low energy, low motivation, withdrawal, in room mostly, but come out to other rooms to talk to the providers 04/08/25: Patient slept for 8 hours, compliant with medications, denies side effect. Met with him in his room, reported that he slept better last night, having good bowel movement, denies diarrhea is. Informed him regarding the labs work/and UA that was negative to rule out UTI. Denies pain. Explained to patient regarding pre ECT procedures/test to prepare for the day that he going to start. We will start ECT on Saturday. Per Dr. Ward, we will taper down on Latuda, start him on Modafinil low dose to help with severe depression. Continued to reports moderate to severe depression. Denies suicidal thoughts or hallucinations. 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 He denied any significant or excessive drug exposure. I do not find any focal lesion, acute or chronic, suggestive of stroke. There was no contraindication to treatment with ECT. Otherwise treatment of this condition is supportive, symptomatic and conservative Taper down on Latuda from 120 down to 100 mg daily at 17:00 for mood. Start on Modefinil 100ng daily for severe depression, low energy, poor concentration, poor motivation. ECT will be scheduled next week on Saturday. We will received treatment for Saturday/Saturday and Saturday. 04/09/25: Patient denies pain, normal bowel movement, slept well and compliant with medications. Denies side effects. Denies suicidal thoughts or hallucinations but reports mild on anxiety and moderate to severe depression. Patient appeared to be disheveled. Encourage patient to be out of bed in attended to groups included OT groups which observe he is visible in day room after the conversation. The OT will do the [place] for pre ECT next week on Saturday prior the ECT. He started modafinil 50 mg this morning. Indication and side effects explained to patient. Patient is receptive with the plan. Correction: Modefinill 50mg daily. MOCA scheduled next week prior to ECT. 04/10:Laying in bed most of morning. Patient continues to report feeling depressed. He reports looking forward to ECT; pt stated, I think it will be a positive step to get ECT . denies SI/HI/VH/AH. Encouraged to get out of bed. Continue tx plan 04/11: Per nursing, pt did not get out of bed yesterday. Observed laying in bed this morning; encouraged to attend groups and shower. Patient continues to report feeling depressed. denies SI/HI/VH/AH. Encouraged to get out of bed. Continue tx plan. 04/12: continue current tx plan 04/13: stably depressed. PMR. start ECT tomorrow, otherwise continue current mgmt. NPO past MN. 04/14/25: got his first ECT treatment this afternoon. Patient slept for 6 hours, was medication compliant. However, this morning due to the delay of the ECT treatment, he was not happy about the delay into the afternoon. He appeared to be frustrated, irritable, and not cooperative with this provider I do not want to talk to anyone . I am done talking . I do not care when asked his last bowel movement. Per nursing, patient denies suicidal thoughts, other safety concerns. Reports he has no bowel movement x4 days. Medication this morning was held until after the ECT. He also was given citrate magnesium x1. Pending effect. 04/15: made bowel movement. ECT #2 tomorrow. no change in mood or presentation as of today. T/C increasing modafanil to 200 mg sometime next week. 04/16: completed ECT without incident. no FLOWERS today. no change in presentation otherwise. continue current mgmt. ECT #3 saturday. 04/17/2025: No changes. ECT # 3 Saturday04/19/202504/18: no changes 04/19: completed ECT #3 today. no FLOWERS, no change in presentation, no change in mood. continue current mgmt. T/C modafanil increase. 04/20: mood starting to improve. laughed, affect brighter and more flexible. ECT tomorrow, NPO after midnight. continue current mgmt otherwise. 04/21: irritable at afternoon ECT. short today. continue current mgmt. 04/22: not irritable, appears depressed, says mood is unchanged. ECT tomorrow. continue current mgmt. strongly consider increase in modafanil dosing. 04/23/2025: Patient seen ECT completed bilaterally. Patient with markedly poor ADLs almost catatonic like allowing himself to be covered in feces not showering or caring for himself. Change ECT to 0.25 would follow-up on response to bilateral treatment if to withdrawn would may be secondary to bilateral and might consider return to right unilateral. Wellbutrin lowered to 300 mg modafinil was started at 100 mg can consider increase to 150 mg targeting apathy lethargy. Patient started on lorazepam 1 mg p.o. t.i.d. had test doses and seemed significantly improved with more fluid speech and increase range of affect hold lorazepam night prior to ECT 04/24/25: Patient slept for 8 hours, no appetite issues. Denies SI/SIB/HI/AVH. Report anxiety a 2/10 and anxiety an 8/10 which he says he does not feel much different yet from ECT. He denies short term memory. He denies FLOWERS or tireness now but says shortly after ECT he had FLOWERS from yesterday which has been gone. He reports normal BM which laxative was held yesterday. Observed patient spent couple hours in dinning areas, eating out in activity room and spent time watching TV. Nursing also reports patient attended group in the art room as well. He also showered yesterday. He is visible, but quiet keep to self, flat affect, depressed mood. Slightly improvement compare to last visit that this provider saw him about 1-2 weeks ago. Ativan started yesterday which seem to have some effects. 04/25/25: Patient slept for 8 hours, compliant with medications, denies side effects. Deny feeling tired on Ativan. Per nursing patient have incident of incontinence of feces yesterday. Therefore Colace and MiraLax and senna has been held. Notes on to hold when has loose stools. Patient denies safety concerns. Reported the same anxiety and depression level. He is more in bed today compared to yesterday but was out for meals. Flat affect, fair eye contact, resting in room. Attended no groups. No changes in terms of mental status. May have ECT on Saturday morning. 04/26: in bed after ECT. flat, withdrawn, slowed, soft. states his mood remains the same as before, no better and no worse. agreeable to increase modafanil to 150 mg. no apparent cognitive or memory deficits. 04/27: perhaps less slowed than recently. hold ativan this afternoon and overnight. NPO past MN. continue bifrontal ECT in the morning. 04/28: faster and more flexible affect. feels he is improving. decrease ativan from 1 mg TID to 0.5 mg TID. otherwise continue current mgmt. 04/29: as for yesterday. continue current mgmt. hold ativan after 3, NPO after MN. ECT in the morning. 04/30: ECT today uneventful. increase modafanil to 200 tomorrow. DC ativan after saturday morning dose. ECT saturday. NPO past MN saturday. otherwise continue current mgmt. 05/01: Continue current management and treatment plan. 05/02: continue current management and treatment plan. 05/03: ECT #9 completed uneventfully this morning. mood remains improved but pt still spending much of the day in bed with depressive facies. continue current mgmt. 9/23: appears a bit brighter, awake this morning. ECT #10 tomorrow. continue current mgmt. 05/05: poorer hygiene, not showering. reporting mood trending down again. open to increasing modafanil. continue current mgmt for now. 05/06: reports he showered and mood somewhat improved. amenable to increase modafanil to 300 mg as of tomorrow. ECT tomorrow. NPO p MN. 05/07: ECT #10 completed. mood trending better, more expressive. continue current mgmt. 05/08: mood improved, affective range improved. continue current mgmt. Reason for continued inpatient stay Substantial Risk for: inability to function and rapid decompensation Time Spent With Patient Time: Total time managing care of this patient today ____ minutes.
[2025-05-09] MEDS: 0.9 % Sodium Chloride Flush 10 ML SYRINGE IVFLUSH ×4 (00:22→23:59)
[2025-05-09 08:00] VITALS: BP 136/64; PULSE 60; RESP 14; TEMP 37.1; O2SAT 100
[2025-05-09] MEDS: Aspirin Enteric Coated 81 MG TABLET.DR PO (08:20)
[2025-05-09] MEDS: buPROPion HCl XL 300 MG TAB.ER.24H PO (08:21)
--- NOTE | 2025-05-09 15:18 | HO.ECTPROC ---
ECT Procedure Note Diagnosis/Treatment Date of Service: 05/05/25 Diagnosis: Bipolar disorder Previous ECT Date: 05/03/25 Current Treatment Number: 10 Treatment: Series Interval Clinical Notes: No complaints of side effects patient with some increase range of affect. Treated bifrontal 0.25 program Time: Total time managing care of this patient today _30___ minutes. ECT Settings Device: THYMATRON DGx Electrode Placement: Bifrontal Program/Pulse Width: 0.25 Energy Percent: 80 Seizure Duration By EEG (in seconds): 36 Medications Administration General Anesthetic: Etomidate (18) Muscle Relaxant: Succinylcholine (100) Ancillary Medications Analgesics: Torodol - Pre ECT (30) Miscillaneous Medications: Propofol (30) Airway Management Airway Management: Bag Mask Ventilation Treatment Recommendations No Changes Recommended: No change Pt Tolerated Procedure w/o Issue: Yes
--- NOTE | 2025-05-09 16:49 | HO.ECTPROC ---
ECT Procedure Note Diagnosis/Treatment Date of Service: 05/07/25 Diagnosis: Bipolar disorder Previous ECT Date: 05/05/25 Current Treatment Number: 11 Treatment: Series Interval Clinical Notes: No complaints of side effects patient with some increase range of affect. Treated bifrontal 0.[address] hannon scheduled 12 tx some improvement noted Time: Total time managing care of this patient today _30___ minutes. ECT Settings Device: THYMATRON DGx Electrode Placement: Bifrontal Program/Pulse Width: 0.25 Energy Percent: 80 Seizure Duration By EEG (in seconds): 49 Medications Administration General Anesthetic: Etomidate (18) Muscle Relaxant: Succinylcholine (100) Ancillary Medications Analgesics: Torodol - Pre ECT (30) Miscillaneous Medications: Propofol (30) Airway Management Airway Management: Bag Mask Ventilation Treatment Recommendations No Changes Recommended: No change Notes: monitor response Pt Tolerated Procedure w/o Issue: Yes
--- NOTE | 2025-05-09 17:38 | HO.PSYCHPN ---
Subjective Subjective Date of Service: 05/09/25 Reason For Visit: SI depression Interim History: in bed, affect brighter, feeling better. no complaints or requests. per staff, dep 2 anx 4. no pain or complaints. ECT tomorrow. slept 10 hours. Mental Status Exam Mental Status Exam Narrative: Appearance: Casually dressed, fairly groomed Behavior: Calm and cooperative, PMR Eye contact is good Speech: soft, nml rate, flattened prosody. Thought process logical and goal-directed Thought content: On treatment. Mood: trending better Affect: constricted, normo-intense SI: none expressed HI: none expressed VH/AH: none expressed Delusions: None expressed Insight/judgment: impaired Diagnostics Vital Signs (24Hr): Vital Signs - 24 hr 05/08/25 19:50 05/09/25 08:00 Temperature 98.0 F 98.8 F Pulse Rate 71 60 Respiratory Rate 16 14 Blood Pressure 112/54 L 136/64 Pulse Oximetry 94 100 Oxygen Delivery Method Room Air Room Air BMI result Body Mass Index 32.2 Labs 04/23/25 10:35 04/23/25 10:35 Imaging Radiology Impressions: ITS Impressions Head CT 04/06/25 13:54 IMPRESSION: No acute intracranial hemorrhage. Bifrontal bitemporal lobes atrophy. Electronically signed by: Roque Guillen MD 04/06/2025 02:15 PM EDT Medications Medications Current Medications Acetaminophen (Acetaminophen 325 Mg Tablet) 650 mg PO Q6H PRN PRN Reason: Headache/Pain, Scale 1-10 Last Admin: 04/14/25 20:25 Dose: 650 mg Al Hydroxide/Mg Hydroxide (Magnesium Hydrox/Alum Hydrox 30 Ml Oral.Susp) 30 ml PO Q6H PRN PRN Reason: Heartburn/Nausea Aspirin (Aspirin Enteric Coated 81 Mg Tablet.) 81 mg PO DAILY [facility] Last Admin: 05/09/25 08:20 Dose: 81 mg Atorvastatin Calcium (Atorvastatin Calcium 20 Mg Tablet) 20 mg PO BEDTIME JENN[facility]ER Last Admin: 05/08/25 20:57 Dose: 20 mg Bisacodyl (Bisacodyl 5 Mg Tablet.) 10 mg PO DAILY PRN PRN Reason: severe Constipation Last Admin: 04/20/25 08:57 Dose: 10 mg Bupropion HCl (Bupropion Hcl Xl 300 Mg Tab.Er.24h) 300 mg PO DAILY [facility] Last Admin: 05/09/25 08:21 Dose: 300 mg Docusate Sodium (Docusate Sodium 100 Mg Capsule) 100 mg PO BID PRN PRN Reason: constipation Hydroxyzine HCl (Hydroxyzine Hcl 25 Mg Tablet) 25 mg PO Q6H PRN PRN Reason: mild anxiety Last Admin: 03/26/25 23:24 Dose: 25 mg Lurasidone HCl (Lurasidone Hcl 40 Mg Tablet) 40 mg PO DAILY@1700 [facility] Last Admin: 05/08/25 17:17 Dose: 40 mg Magnesium Hydroxide (Milk Of Magnesia 30 Ml Oral.Susp) 30 ml PO DAILY PRN PRN Reason: Constipation Last Admin: 04/17/25 10:24 Dose: 30 ml Modafinil (Modafinil 100 Mg Tablet) 300 mg PO DAILY [facility] Last Admin: 05/09/25 08:20 Dose: 300 mg Naloxone HCl (Naloxone Hcl 0.4 Mg/Ml Vial) 0.04 mg IVPUSH Q5M PRN PRN Reason: Excessive sedation or RR < 8 Naloxone HCl (Naloxone Hcl 0.4 Mg/Ml Vial) 0.04 mg IVPUSH Q5M PRN PRN Reason: Excessive sedation or RR < 8 Nicotine (Nicotine 21 Mg Patch.Td24) 21 mg TRANSDERMA DAILY PRN PRN Reason: nicotine craving Nicotine Polacrilex (Nicotine Polacrilex 2 Mg Gum) 2 mg BUCCAL Q2H PRN PRN Reason: Nicotine Cravings Olanzapine (Olanzapine 5 Mg Tablet) 5 mg PO BID PRN PRN Reason: agitation Ondansetron HCl (Ondansetron Odt 8 Mg Tab.Rapdis) 8 mg TRANSLINGU Q8H PRN PRN Reason: Nausea and Vomiting Polyethylene Glycol (Polyethylene Glycol 3350 17 Gm Powd.Pack) 17 gm PO DAILY PRN PRN Reason: constipation Senna (Sennosides 8.6 Mg Tablet) 17.2 mg PO BEDTIME PRN PRN Reason: Constipation Sodium Chloride (0.9 % Sodium Chloride Flush 10 Ml Syringe) 10 ml IVFLUSH QSHIFT [facility] Last Admin: 05/09/25 16:38 Dose: 10 ml Trazodone HCl (Trazodone Hcl 50 Mg Tablet) 50 mg PO BEDTIME MRX1 PRN PRN Reason: Insomnia Last Admin: 04/05/25 23:14 Dose: 50 mg Allergies Allergies Allergy/AdvReac Type Severity Reaction Status Date / Time pumpkin Allergy Unknown Unknown Verified 12/24/24 12:26 Assessment & Plan Assessment & Plan (1) CKD (chronic kidney disease): Qualifiers: Chronic kidney disease stage: stage 3 (moderate) Chronic kidney disease stage 3 subtype: stage 3a (GFR 45-59) Qualified Code(s): N18.31 - Chronic kidney disease, stage 3a Status: Acute Code(s): N18.9 - Chronic kidney disease, unspecified Assessment and Plan: Patient likely has some mild chronic kidney disease, 3a no proteinuria on most recent UA patient has mild renal disease, given medical history has low risk of developing ESRD requiring dialysis- ok for midline placement. Discussed with Dr Moody. (2) Depression: Qualifiers: Depression Type: unspecified Qualified Code(s): F32.A - Depression, unspecified Status: Acute Code(s): F32.A - Depression, unspecified (3) CVA (cerebral vascular accident): Status: Acute Code(s): I63.9 - Cerebral infarction, unspecified Plan 03/27: feels latuda 120 has been helpful. however, remains depressed. add wellbutrin XL 150 daily for depression, plan to increase to 300 mg daily in 3 days. may also consider ECT due to lack of improvement despite numerous recent hospitalizations + lethality of suicide attempts + recent self-abnegating behaviors. 03/28: no change in presentation, no requests or complaints. started wellbutrin 150 today. continue current mgmt 03/29/25: Slept well, no issues with appetite. Observed out on the unit, attended groups, engaging. Reports depression and 03/21, denies anxiety. Constricted affect, congruent with mood. Denies safety concerns. Compliant with medications. Denies side effects from Wellbutrin. Continue to encourage groups. 03/30/25: Patient slept for 6 hours, was medication compliant. He attended 2 groups yesterday, however today he is more isolated, in bed a lot more time, declines a couple groups. Reports depressed but no anxiety, flat affect, depressed, but cooperative during one-to-one assessment. He is receptive with the plan of Wellbutrin increased up to 300 mg for depression. Reports passive SI, denies plan or intention. Denies other safety concerns. Encourage patient to go to groups and shower daily. Increase Wellbutrin XL to 300 mg daily for depression. He reported that he has bipolar type II. 03/31: Laying in bed. keeping to self. showered. patient reports feeling depressed ; pt stated, I'm not having a good day. I don't want to do anything . flat affect. denies SI/HI/VH/AH. Per nursing, slept 8 hours. encouraged to attend groups. continue current tx plan. 04/01/25: Patient slept for 8 hours, poor meal intake yesterday but was medication compliant. Denies side effects. When asked about if he has poor appetite as he ate only 50 of breakfast, and 25 for lunch and not eating dinner, he said because I did not do the menu, so I got what I do not like . He shower yesterday, continued to reports depression 03/21. Denied anxiety. He does not feel any difference from Wellbutrin 150 when and when it was increased up to 300 mg. Denies SI/SIB/HI/AVH, isolative self, he plans to attend groups today. This provider spoke with patient in length regarding medication trials. Per his report, has been trying so many antidepressants they just do not work, and continued to be depressed. Some of them are Zoloft, Paxil, Effexor, Celexa, Prozac, Cymbalta, Lexapro. He also having history of taking Zyprexa more than 20 years ago due to hearing voices. Then the voices was calm. He never has a take it again after. History of Abilify but not sure if it is working as he can not recall. Regarding ADLs: He said that he had food at the long-term twice a day, but he is not showering for many days despite the fact that staff asked him to do so I just do not care about being clean . Reports very low energy, low motivation, been increased suicidal thoughts and depression. He used to love music and reading but not interested in doing anything like that anymore. Reported that he had gastric sleeve surgery back in August 2023 which he lost 230 lb. He weight 447 lb prior to the surgery. He identified that after the surgery he has been more depressed slowly over months. There was a time that he wanted to starve myself so I can when asked is that you that he has stopped eating at home. He also identified that he feel more depressed after surgery as he is not able to over eating like he did before. Family mental health illnesses: Reports that who both of his parents was depressed. Mom 11 years ago. 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 History of ECTs: Reports he had history of ECTs in 2010 when he was at in [facility].He felt worse after the treatment everything seems like a dream . He clarified that immediately after the treatment he feel that way which could be a side effects of ECT but not permanent. Educate patient on possible side effects ECTs. Patient denies having seizure during ECTs treatment, no seizure history no cardiac conditions/disease history. Reports history of hypertension, but not anymore. He also has been admitted to different hospitals for psychiatric admissions in the past couple of months. Reports staying at [facility] in December for a month. [facility] in the area names [facility]) in October for another month. Per email from his OP team- clinical director at [facility], they also express concerns of patient's conditions. It is noted that their concerns are very consistent with patient' report here on the unit. He also has been admitted to different hospitals for psychiatric admissions in the past couple of months. Reports staying at [facility] in December for a month. [facility] in the area names [facility]) in October for another month. Per email from his OP team- clinical director at [facility], they also express concerns of patient's conditions. It is noted that their concerns are very consistent with patient' report here on the unit. Alfredito has been in and out on inpatient level of care since October of this year, I believe every month, for a majority of the time. He was recently discharged from [facility] after a 1 month stay and within two hours of returning home wanted to return to the hospital, saying he was unwell, and within one day was sectioned by [facility], which is how he ended up with you now. He has been coming home and intentionally starving himself, even not eating for up to 1 week. We have known Alfredito for years and since this started in October, we have seen no significant improvement in his mental health or a return to baseline. In fact, we are observing his case as consistent with failure to thrive. We have been asking for him to be inpatient at [facility] or with you at [facility] for some time in order for him to be potentially considered for ECT level of treatment, if deemed appropriate. Multiple medication trials failture to target depressive symptoms. He will be a good candidate to get trial ECT treatment in combination with current medication regimens. Patient also agrees with the plan. We would start the treatment as soon as possible. Will discuss the case with in house psychiatrist-Dr. Ward to prepare for ECT treatment. Hope to start early next week. 04/02: Laying in bed. keeping to self. Patient continues to report feeling depressed; pt stated, I feel about the same. I spoke with the other provider and agreed to do ECT . He reports sleeping well. denies SI/HI/VH/AH. Encouraged to attend groups and shower. Continue current tx plan. 04/03: no changes- just started wellbutrin 04/04: no changes 04/05/25: report anxiety a 2-10/19 but still 03/21 for depression. No change since started Wellbutrin. He agrees to get Wellbutrin up to 450mg daily for depression. Isolative in room, staring up to the ceiling. Discuss with patient of option to start on Intuniv for severe depression. Patient declines it at this current time but agree to see Welbutrin increased would be helpful. He agrees with ECT. Encourage groups, he says he was at art group out to dinning area but there are too much so he went back to his room. Report not many groups offered over the weekends. 04/06/25: Patient slept for 6 hours, have a sleep study done last night. Reported that he did not sleep well. Appetite is okay. Mood is depressed 03/21, denies anxiety today. Denies suicidal thoughts, but reports he has passive SI yesterday intrusive, just do not Wanna live anymore . Denies hallucinations. Address with patient of why he having bowel movement in the shower. He said it is just one episode. Reports he feel constipated. Agree with Colace. He also inform regarding the ECT which was approved by the insurance. He compliant with medication, however reports he has not feeling any difference in terms of depression at since started on Wellbutrin. Encourage groups attendance. Observe him later on during the day reading at a table in dining area. Colace 100mg BID for constipation. ECT consult placed: Patient may be seen by tomorrow by Dr. Ward. Procedure done preparing for the ECT: Head CT scan negative, EKG normal sinus rhythm, Incomplete right bundle branch block. Borderline ECG_ no change when compare to previous EKG. Unremarkable CBC with diff. 04/07/25: Per hospitalist note: ECT risk stratification Patient without previous problems with anesthesia, has previously undergone ECT RCRI 0 points, no further cardiac workup or treatment indicated at this time EKG showed QT interval WNL, no evidence of ischemic changes Based on stated PMH, HPI, and physical exam, there are no apparent medical contraindications to the planned procedure. Patient is complaining of pelvic discomfort and constipation. We will add therapy with Senokot, MiraLax and obtain urinalysis to assess for urinary tract infection. Continue treatment with atorvastatin and aspirin for history of stroke and hyperlipidemia. 04/07/25: Patient compliant with medication, reports due to the pain abdominal, he could not sleep well last night. Continued to reports depressions 8/10, anxiety 4/10 today related to the pain. Denies suicidal thoughts or voices, isolated. Shower yesterday. Review with patient test need to be done prior to having ECT. Patient met with Dr. Ward and hospitalist for ECT clearance. Due to the pain, constipated, more laxative ordered today. Also UA other by hospitalist to rule out any infection. He is flat, low energy, low motivation, withdrawal, in room mostly, but come out to other rooms to talk to the providers 04/08/25: Patient slept for 8 hours, compliant with medications, denies side effect. Met with him in his room, reported that he slept better last night, having good bowel movement, denies diarrhea is. Informed him regarding the labs work/and UA that was negative to rule out UTI. Denies pain. Explained to patient regarding pre ECT procedures/test to prepare for the day that he going to start. We will start ECT on Saturday. Per Dr. Ward, we will taper down on Latuda, start him on Modafinil low dose to help with severe depression. Continued to reports moderate to severe depression. Denies suicidal thoughts or hallucinations. 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 He denied any significant or excessive drug exposure. I do not find any focal lesion, acute or chronic, suggestive of stroke. There was no contraindication to treatment with ECT. Otherwise treatment of this condition is supportive, symptomatic and conservative Taper down on Latuda from 120 down to 100 mg daily at 17:00 for mood. Start on Modefinil 100ng daily for severe depression, low energy, poor concentration, poor motivation. ECT will be scheduled next week on Saturday. We will received treatment for Saturday/Saturday and Saturday. 04/09/25: Patient denies pain, normal bowel movement, slept well and compliant with medications. Denies side effects. Denies suicidal thoughts or hallucinations but reports mild on anxiety and moderate to severe depression. Patient appeared to be disheveled. Encourage patient to be out of bed in attended to groups included OT groups which observe he is visible in day room after the conversation. The OT will do the [place] for pre ECT next week on Saturday prior the ECT. He started modafinil 50 mg this morning. Indication and side effects explained to patient. Patient is receptive with the plan. Correction: Modefinill 50mg daily. MOCA scheduled next week prior to ECT. 04/10:Laying in bed most of morning. Patient continues to report feeling depressed. He reports looking forward to ECT; pt stated, I think it will be a positive step to get ECT . denies SI/HI/VH/AH. Encouraged to get out of bed. Continue tx plan 04/11: Per nursing, pt did not get out of bed yesterday. Observed laying in bed this morning; encouraged to attend groups and shower. Patient continues to report feeling depressed. denies SI/HI/VH/AH. Encouraged to get out of bed. Continue tx plan. 04/12: continue current tx plan 04/13: stably depressed. PMR. start ECT tomorrow, otherwise continue current mgmt. NPO past MN. 04/14/25: got his first ECT treatment this afternoon. Patient slept for 6 hours, was medication compliant. However, this morning due to the delay of the ECT treatment, he was not happy about the delay into the afternoon. He appeared to be frustrated, irritable, and not cooperative with this provider I do not want to talk to anyone . I am done talking . I do not care when asked his last bowel movement. Per nursing, patient denies suicidal thoughts, other safety concerns. Reports he has no bowel movement x4 days. Medication this morning was held until after the ECT. He also was given citrate magnesium x1. Pending effect. 04/15: made bowel movement. ECT #2 tomorrow. no change in mood or presentation as of today. T/C increasing modafanil to 200 mg sometime next week. 04/16: completed ECT without incident. no FLOWERS today. no change in presentation otherwise. continue current mgmt. ECT #3 saturday. 04/17/2025: No changes. ECT # 3 Saturday04/19/202504/18: no changes 04/19: completed ECT #3 today. no FLOWERS, no change in presentation, no change in mood. continue current mgmt. T/C modafanil increase. 04/20: mood starting to improve. laughed, affect brighter and more flexible. ECT tomorrow, NPO after midnight. continue current mgmt otherwise. 04/21: irritable at afternoon ECT. short today. continue current mgmt. 04/22: not irritable, appears depressed, says mood is unchanged. ECT tomorrow. continue current mgmt. strongly consider increase in modafanil dosing. 04/23/2025: Patient seen ECT completed bilaterally. Patient with markedly poor ADLs almost catatonic like allowing himself to be covered in feces not showering or caring for himself. Change ECT to 0.25 would follow-up on response to bilateral treatment if to withdrawn would may be secondary to bilateral and might consider return to right unilateral. Wellbutrin lowered to 300 mg modafinil was started at 100 mg can consider increase to 150 mg targeting apathy lethargy. Patient started on lorazepam 1 mg p.o. t.i.d. had test doses and seemed significantly improved with more fluid speech and increase range of affect hold lorazepam night prior to ECT 04/24/25: Patient slept for 8 hours, no appetite issues. Denies SI/SIB/HI/AVH. Report anxiety a 2/10 and anxiety an 8/10 which he says he does not feel much different yet from ECT. He denies short term memory. He denies FLOWERS or tireness now but says shortly after ECT he had FLOWERS from yesterday which has been gone. He reports normal BM which laxative was held yesterday. Observed patient spent couple hours in dinning areas, eating out in activity room and spent time watching TV. Nursing also reports patient attended group in the art room as well. He also showered yesterday. He is visible, but quiet keep to self, flat affect, depressed mood. Slightly improvement compare to last visit that this provider saw him about 1-2 weeks ago. Ativan started yesterday which seem to have some effects. 04/25/25: Patient slept for 8 hours, compliant with medications, denies side effects. Deny feeling tired on Ativan. Per nursing patient have incident of incontinence of feces yesterday. Therefore Colace and MiraLax and senna has been held. Notes on to hold when has loose stools. Patient denies safety concerns. Reported the same anxiety and depression level. He is more in bed today compared to yesterday but was out for meals. Flat affect, fair eye contact, resting in room. Attended no groups. No changes in terms of mental status. May have ECT on Saturday morning. 04/26: in bed after ECT. flat, withdrawn, slowed, soft. states his mood remains the same as before, no better and no worse. agreeable to increase modafanil to 150 mg. no apparent cognitive or memory deficits. 04/27: perhaps less slowed than recently. hold ativan this afternoon and overnight. NPO past MN. continue bifrontal ECT in the morning. 04/28: faster and more flexible affect. feels he is improving. decrease ativan from 1 mg TID to 0.5 mg TID. otherwise continue current mgmt. 04/29: as for yesterday. continue current mgmt. hold ativan after 3, NPO after MN. ECT in the morning. 04/30: ECT today uneventful. increase modafanil to 200 tomorrow. DC ativan after saturday morning dose. ECT saturday. NPO past MN saturday. otherwise continue current mgmt. 05/01: Continue current management and treatment plan. 05/02: continue current management and treatment plan. 05/03: ECT #9 completed uneventfully this morning. mood remains improved but pt still spending much of the day in bed with depressive facies. continue current mgmt. 05/04: appears a bit brighter, awake this morning. ECT #10 tomorrow. continue current mgmt. 05/05: poorer hygiene, not showering. reporting mood trending down again. open to increasing modafanil. continue current mgmt for now. 05/06: reports he showered and mood somewhat improved. amenable to increase modafanil to 300 mg as of tomorrow. ECT tomorrow. NPO p MN. 05/07: ECT #10 completed. mood trending better, more expressive. continue current mgmt. 05/08: mood improved, affective range improved. continue current mgmt. 05/09: mood remains improved, affect brighter. ECT tomorrow. continue current mgmt. Reason for continued inpatient stay Substantial Risk for: harm to self, inability to function and rapid decompensation Time Spent With Patient Time: Total time managing care of this patient today ____ minutes.
[2025-05-09 20:00] VITALS: BP 118/60; PULSE 64; RESP 16; TEMP 36.4; O2SAT 97
[2025-05-10] VITALS (12 sets, daily range): BP systolic 106–165; BP diastolic 49–108; PULSE 60–100; RESP 14–24; TEMP 36.1–36.7; O2SAT 95–100
--- NOTE | 2025-05-10 07:04 | P.CONAN_ITS ---
HPI - Anesthesia Eval Consult details Narrative: for ECT PMFSH Active Problems Active Problems: All Active Problems CKD (chronic kidney disease) (Acute) CVA (cerebral vascular accident) (Acute) Abnormal head CT (Acute) JUVENTINO (acute kidney injury) (Acute) Depression (Acute) Bipolar disorder (Acute) H/O gastric sleeve (Acute) Past Medical History Medical History Obesity LUIS (obstructive sleep apnea) HLD (hyperlipidemia) HTN (hypertension) CVA (cerebral vascular accident) Functional capacity: independent ambulation Family History Family history of problems with anesthesia: No Surgical History History of Problems with Anesthesia: No Social History Social History Household Members: Other Household Members Other:: transitional housing Housing: Other Do you presently have visiting nurse or other home services: No Patient Tobacco Use Status: Never used Tobacco Second Hand Smoke Exposure: Yes Currently Displaying Signs/Symptoms of Drug Intoxication Withdrawal: No Have you been hit, kicked, punched, or otherwise hurt by someone within the past year? If so, by whom?: No Do you feel safe in your current relationship?: No Current Relationship Is there a partner from a previous relationship who is making you feel unsafe now?: No Are you made to feel afraid or neglected: No Advance Directives: No Advance Directives Information Provided: No Do you have thoughts of harming others: None Do you have a plan to hurt others: No Plan Recently lost weight without trying: No Eating poorly because of decreased appetite: No Nutrition Risks: No Nutritional Risk Poor oral hygiene: Yes (very dry scalp) service: No Sexual orientation: Straight/Heterosexual Meds Allergies Allergy/AdvReac Type Severity Reaction Status Date / Time pumpkin Allergy Unknown Unknown Verified 12/24/24 12:26 Active Medications: Current Medications Acetaminophen (Acetaminophen 325 Mg Tablet) 650 mg PO Q6H PRN PRN Reason: Headache/Pain, Scale 1-10 Last Admin: 04/14/25 20:25 Dose: 650 mg Al Hydroxide/Mg Hydroxide (Magnesium Hydrox/Alum Hydrox 30 Ml Oral.Susp) 30 ml PO Q6H PRN PRN Reason: Heartburn/Nausea Aspirin (Aspirin Enteric Coated 81 Mg Tablet.Dr) 81 mg PO DAILY JENNIFER Last Admin: 05/09/25 08:20 Dose: 81 mg Atorvastatin Calcium (Atorvastatin Calcium 20 Mg Tablet) 20 mg PO BEDTIME [facility] Last Admin: 05/09/25 20:17 Dose: 20 mg Bisacodyl (Bisacodyl 5 Mg Tablet.Dr) 10 mg PO DAILY PRN PRN Reason: severe Constipation Last Admin: 04/20/25 08:57 Dose: 10 mg Bupropion HCl (Bupropion Hcl Xl 300 Mg Tab.Er.24h) 300 mg PO DAILY [facility] Last Admin: 05/09/25 08:21 Dose: 300 mg Docusate Sodium (Docusate Sodium 100 Mg Capsule) 100 mg PO BID PRN PRN Reason: constipation Hydroxyzine HCl (Hydroxyzine Hcl 25 Mg Tablet) 25 mg PO Q6H PRN PRN Reason: mild anxiety Last Admin: 03/26/25 23:24 Dose: 25 mg Lurasidone HCl (Lurasidone Hcl 40 Mg Tablet) 40 mg PO DAILY@1700 [facility] Last Admin: 05/09/25 17:53 Dose: 40 mg Magnesium Hydroxide (Milk Of Magnesia 30 Ml Oral.Susp) 30 ml PO DAILY PRN PRN Reason: Constipation Last Admin: 04/17/25 10:24 Dose: 30 ml Modafinil (Modafinil 100 Mg Tablet) 300 mg PO DAILY [facility] Last Admin: 05/09/25 08:20 Dose: 300 mg Naloxone HCl (Naloxone Hcl 0.4 Mg/Ml Vial) 0.04 mg IVPUSH Q5M PRN PRN Reason: Excessive sedation or RR < 8 Naloxone HCl (Naloxone Hcl 0.4 Mg/Ml Vial) 0.04 mg IVPUSH Q5M PRN PRN Reason: Excessive sedation or RR < 8 Nicotine (Nicotine 21 Mg Patch.Td24) 21 mg TRANSDERMA DAILY PRN PRN Reason: nicotine craving Nicotine Polacrilex (Nicotine Polacrilex 2 Mg Gum) 2 mg BUCCAL Q2H PRN PRN Reason: Nicotine Cravings Olanzapine (Olanzapine 5 Mg Tablet) 5 mg PO BID PRN PRN Reason: agitation Ondansetron HCl (Ondansetron Odt 8 Mg Tab.Rapdis) 8 mg TRANSLINGU Q8H PRN PRN Reason: Nausea and Vomiting Polyethylene Glycol (Polyethylene Glycol 3350 17 Gm Powd.Pack) 17 gm PO DAILY PRN PRN Reason: constipation Senna (Sennosides 8.6 Mg Tablet) 17.2 mg PO BEDTIME PRN PRN Reason: Constipation Sodium Chloride (0.9 % Sodium Chloride Flush 10 Ml Syringe) 10 ml IVFLUSH QSHIFT JENNIFER Last Admin: 05/09/25 23:59 Dose: 10 ml Trazodone HCl (Trazodone Hcl 50 Mg Tablet) 50 mg PO BEDTIME MRX1 PRN PRN Reason: Insomnia Last Admin: 04/05/25 23:14 Dose: 50 mg Exam Height,Weight and Vital Signs: Height 5 ft 9 in Weight 99.065 kg Last Vital Signs Temp 97.5 F 05/09/25 20:00 Pulse 64 05/09/25 20:00 Resp 16 05/09/25 20:00 BP 118/60 05/09/25 20:00 Pulse Ox 97 05/09/25 20:00 O2 Del Method Room Air 05/09/25 20:00 O2 Flow Rate 2 05/07/25 12:33 Pertinent Lab Results Pertinent Lab Results: Laboratory Tests 03/26/25 03/26/25 03/27/25 14:42 15:45 08:31 WBC 9.9 RBC 4.34 L Hgb 12.8 L Hct 38.3 L MCV 88.2 MCH 29.5 MCHC 33.4 RDW 14.6 Plt Count 191 MPV 10.6 Immature Gran % (Auto) 0.2 Neut % (Auto) 61.2 Lymph % (Auto) 28.9 [place] % (Auto) 8.8 Eos % (Auto) 0.7 Baso % (Auto) 0.2 Lymph # (Auto) 2.9 [place] # (Auto) 0.9 Eos # (Auto) 0.1 Baso # (Auto) 0.0 Abs Immat Gran (auto) 0.02 Absolute Neuts (auto) 6.1 Absolute Nucleated RBC 0.000 Nucleated RBC % (auto) 0.0 Sodium 138 143 Potassium 4.4 4.2 Chloride 103 106 Carbon Dioxide 26 23 Anion Gap 13 18 BUN 18 H 16 Creatinine 1.55 H 1.19 Estim Creat Clear Calc 65.6 86.0 Estimated GFR 48 > 60 POC Glucose Random Glucose 93 78 Estimat Average Glucose 91 Hemoglobin A1c % 4.8 Calcium 9.0 9.0 Total Bilirubin 1.1 H AST 28 ALT 11 Alkaline Phosphatase 62 B-Natriuretic Peptide Total Protein 6.0 L Albumin 3.7 Triglycerides 66 Cholesterol 153 LDL Cholesterol, Calc 92 HDL Cholesterol 48 TSH 3.31 Free T4 1.09 Urine Color Yellow Urine Appearance Cloudy Urine pH 5.5 Ur Specific [place] 1.015 Urine Protein 30 (1+) H Urine Glucose (UA) Negative Urine Ketones Negative Urine Blood Negative Urine Nitrite Negative Ur Leukocyte Esterase Trace H Urine RBC 0-2 Urine WBC 0-5 Ur Squamous Epith Cells 6-10 Urine Bacteria None Seen Hyaline Casts >20 Salicylates < 5.0 L Urine Opiates Screen Not Detected Ur Buprenorphine Scrn Not Detected Ur Oxycodone Screen Not Detected Urine Methadone Screen Not Detected Urine Fentanyl Screen Not Detected Acetaminophen < 3 Ur Barbiturates Screen Not Detected Ur Phencyclidine Scrn Not Detected Ur Amphetamines Screen Not Detected U Benzodiazepines Scrn Not Detected Urine Cocaine Screen Not Detected U Marijuana (THC) Screen Not Detected Ethyl Alcohol < 10 T.pallidum Ab (EIA) Influenza Type A (PCR) NEGATIVE Influenza Type B (PCR) NEGATIVE RSV RNA Qual (PCR) NEGATIVE SARS-CoV-2 RNA (RT-PCR) NEGATIVE 04/06/25 04/07/25 04/07/25 14:28 08:07 21:30 WBC 9.1 RBC 4.59 L Hgb 13.4 L Hct 40.9 L MCV 89.1 MCH 29.2 MCHC 32.8 RDW 14.0 Plt Count 303 D MPV 10.6 Immature Gran % (Auto) 0.4 Neut % (Auto) 58.1 Lymph % (Auto) 32.8 [place] % (Auto) 6.4 Eos % (Auto) 2.1 Baso % (Auto) 0.2 Lymph # (Auto) 3.0 [place] # (Auto) 0.6 Eos # (Auto) 0.2 Baso # (Auto) 0.0 Abs Immat Gran (auto) 0.04 H Absolute Neuts (auto) 5.3 Absolute Nucleated RBC 0.000 Nucleated RBC % (auto) 0.0 Sodium 143 Potassium 4.6 Chloride 105 Carbon Dioxide 28 Anion Gap 15 BUN 17 H Creatinine 1.35 Estim Creat Clear Calc 75.5 Estimated GFR 56 POC Glucose Random Glucose 96 Estimat Average Glucose Hemoglobin A1c % Calcium 9.4 Total Bilirubin 0.6 AST 26 ALT 23 Alkaline Phosphatase 66 B-Natriuretic Peptide Total Protein 6.4 L Albumin 3.9 Triglycerides Cholesterol LDL Cholesterol, Calc HDL Cholesterol TSH 2.42 Free T4 Urine Color Yellow Urine Appearance Clear Urine pH 6.0 Ur Specific [place] 1.010 Urine Protein Negative Urine Glucose (UA) Negative Urine Ketones Negative Urine Blood Negative Urine Nitrite Negative Ur Leukocyte Esterase Negative Urine RBC Urine WBC Ur Squamous Epith Cells Urine Bacteria Hyaline Casts Salicylates Urine Opiates Screen Ur Buprenorphine Scrn Ur Oxycodone Screen Urine Methadone Screen Urine Fentanyl Screen Acetaminophen Ur Barbiturates Screen Ur Phencyclidine Scrn Ur Amphetamines Screen U Benzodiazepines Scrn Urine Cocaine Screen U Marijuana (THC) Screen Ethyl Alcohol T.pallidum Ab (EIA) Influenza Type A (PCR) Influenza Type B (PCR) RSV RNA Qual (PCR) SARS-CoV-2 RNA (RT-PCR) 04/10/25 04/20/25 04/23/25 09:18 20:47 10:35 WBC 8.6 RBC 4.73 Hgb 14.0 Hct 41.5 L MCV 87.7 MCH 29.6 MCHC 33.7 RDW 13.2 Plt Count 233 MPV 10.3 Immature Gran % (Auto) 0.5 H Neut % (Auto) 58.3 Lymph % (Auto) 33.4 [place] % (Auto) 5.9 Eos % (Auto) 1.6 Baso % (Auto) 0.3 Lymph # (Auto) 2.9 [place] # (Auto) 0.5 Eos # (Auto) 0.1 Baso # (Auto) 0.0 Abs Immat Gran (auto) 0.04 H Absolute Neuts (auto) 5.0 Absolute Nucleated RBC 0.000 Nucleated RBC % (auto) 0.0 Sodium 139 Potassium 4.6 Chloride 105 Carbon Dioxide 27 Anion Gap 12 BUN 21 H Creatinine 1.40 Estim Creat Clear Calc 73.3 Estimated GFR 54 POC Glucose 102 Random Glucose 87 Estimat Average Glucose Hemoglobin A1c % Calcium 8.8 D Total Bilirubin 0.8 AST 20 ALT 17 Alkaline Phosphatase 65 B-Natriuretic Peptide < 10 Total Protein 6.0 L Albumin 3.6 Triglycerides Cholesterol LDL Cholesterol, Calc HDL Cholesterol TSH Free T4 Urine Color Urine Appearance Urine pH Ur Specific [place] Urine Protein Urine Glucose (UA) Urine Ketones Urine Blood Urine Nitrite Ur Leukocyte Esterase Urine RBC Urine WBC Ur Squamous Epith Cells Urine Bacteria Hyaline Casts Salicylates Urine Opiates Screen Ur Buprenorphine Scrn Ur Oxycodone Screen Urine Methadone Screen Urine Fentanyl Screen Acetaminophen Ur Barbiturates Screen Ur Phencyclidine Scrn Ur Amphetamines Screen U Benzodiazepines Scrn Urine Cocaine Screen U Marijuana (THC) Screen Ethyl Alcohol T.pallidum Ab (EIA) Nonreactive Influenza Type A (PCR) Influenza Type B (PCR) RSV RNA Qual (PCR) SARS-CoV-2 RNA (RT-PCR) Airway Mallampati Class: II TM Dist: >3cm Neck ROM: Full Partial: Upper Heart: ok Lungs: ok Assessment and Plan Assessment Anesthesia Assessment: Anesthesia Plan Discussed and Chart Reviewed Final Anesthetic Review Family History of Problems with Anesthesia: No History of Problems with Anesthesia: No NPO: Yes ASA Class: III Final Preanesthetic Review: No Changes in Pt Med Stat, Meds/Allgs Chart Reviewed, Consent Obtained/Reviewed and Anes Risks/Benef Reviewed Patient Risk: Intermediate Procedure Risk: Intermediate Anesthetic Plan Anesthetic Plan: GA and Agree w/ Assess. and Plan Disposition: Standard PACU
[2025-05-10] MEDS: 0.9 % Sodium Chloride Flush 10 ML SYRINGE IVFLUSH ×2 (08:29→16:34)
--- NOTE | 2025-05-10 13:12 | HO.ANESPROP2 ---
[facility] Active Problems Active Problems: All Active Problems CKD (chronic kidney disease) (Acute) CVA (cerebral vascular accident) (Acute) Abnormal head CT (Acute) JUVENTINO (acute kidney injury) (Acute) Depression (Acute) Bipolar disorder (Acute) H/O gastric sleeve (Acute) Past Medical History Medical History Obesity LUIS (obstructive sleep apnea) HLD (hyperlipidemia) HTN (hypertension) CVA (cerebral vascular accident) Functional capacity: independent ambulation Family History Family history of problems with anesthesia: No Surgical History History of Problems with Anesthesia: No Social History Social History Household Members: Other Household Members Other:: transitional housing Housing: Other Do you presently have visiting nurse or other home services: No Patient Tobacco Use Status: Never used Tobacco Second Hand Smoke Exposure: Yes Currently Displaying Signs/Symptoms of Drug Intoxication Withdrawal: No Have you been hit, kicked, punched, or otherwise hurt by someone within the past year? If so, by whom?: No Do you feel safe in your current relationship?: No Current Relationship Is there a partner from a previous relationship who is making you feel unsafe now?: No Are you made to feel afraid or neglected: No Advance Directives: No Advance Directives Information Provided: No Do you have thoughts of harming others: None Do you have a plan to hurt others: No Plan Recently lost weight without trying: No Eating poorly because of decreased appetite: No Nutrition Risks: No Nutritional Risk Poor oral hygiene: Yes (very dry scalp) service: No Sexual orientation: Straight/Heterosexual Meds Allergies Allergy/AdvReac Type Severity Reaction Status Date / Time pumpkin Allergy Unknown Unknown Verified 12/24/24 12:26 Active Medications: Current Medications Acetaminophen (Acetaminophen 325 Mg Tablet) 650 mg PO Q6H PRN PRN Reason: Headache/Pain, Scale 1-10 Last Admin: 04/14/25 20:25 Dose: 650 mg Al Hydroxide/Mg Hydroxide (Magnesium Hydrox/Alum Hydrox 30 Ml Oral.Susp) 30 ml PO Q6H PRN PRN Reason: Heartburn/Nausea Aspirin (Aspirin Enteric Coated 81 Mg Tablet.Dr) 81 mg PO DAILY JENNIFER Last Admin: 05/09/25 08:20 Dose: 81 mg Atorvastatin Calcium (Atorvastatin Calcium 20 Mg Tablet) 20 mg PO BEDTIME JENNIFER Last Admin: 05/09/25 20:17 Dose: 20 mg Bisacodyl (Bisacodyl 5 Mg Tablet.Dr) 10 mg PO DAILY PRN PRN Reason: severe Constipation Last Admin: 04/20/25 08:57 Dose: 10 mg Bupropion HCl (Bupropion Hcl Xl 300 Mg Tab.Er.24h) 300 mg PO DAILY [facility] Last Admin: 05/09/25 08:21 Dose: 300 mg Docusate Sodium (Docusate Sodium 100 Mg Capsule) 100 mg PO BID PRN PRN Reason: constipation Hydroxyzine HCl (Hydroxyzine Hcl 25 Mg Tablet) 25 mg PO Q6H PRN PRN Reason: mild anxiety Last Admin: 03/26/25 23:24 Dose: 25 mg Lurasidone HCl (Lurasidone Hcl 40 Mg Tablet) 40 mg PO DAILY@1700 [facility] Last Admin: 05/09/25 17:53 Dose: 40 mg Magnesium Hydroxide (Milk Of Magnesia 30 Ml Oral.Susp) 30 ml PO DAILY PRN PRN Reason: Constipation Last Admin: 04/17/25 10:24 Dose: 30 ml Modafinil (Modafinil 100 Mg Tablet) 300 mg PO DAILY [facility] Last Admin: 05/09/25 08:20 Dose: 300 mg Naloxone HCl (Naloxone Hcl 0.4 Mg/Ml Vial) 0.04 mg IVPUSH Q5M PRN PRN Reason: Excessive sedation or RR < 8 Naloxone HCl (Naloxone Hcl 0.4 Mg/Ml Vial) 0.04 mg IVPUSH Q5M PRN PRN Reason: Excessive sedation or RR < 8 Nicotine (Nicotine 21 Mg Patch.Td24) 21 mg TRANSDERMA DAILY PRN PRN Reason: nicotine craving Nicotine Polacrilex (Nicotine Polacrilex 2 Mg Gum) 2 mg BUCCAL Q2H PRN PRN Reason: Nicotine Cravings Olanzapine (Olanzapine 5 Mg Tablet) 5 mg PO BID PRN PRN Reason: agitation Ondansetron HCl (Ondansetron Odt 8 Mg Tab.Rapdis) 8 mg TRANSLINGU Q8H PRN PRN Reason: Nausea and Vomiting Polyethylene Glycol (Polyethylene Glycol 3350 17 Gm Powd.Pack) 17 gm PO DAILY PRN PRN Reason: constipation Senna (Sennosides 8.6 Mg Tablet) 17.2 mg PO BEDTIME PRN PRN Reason: Constipation Sodium Chloride (0.9 % Sodium Chloride Flush 10 Ml Syringe) 10 ml IVFLUSH QSHIFT JENNIFER Last Admin: 05/10/25 08:29 Dose: 10 ml Trazodone HCl (Trazodone Hcl 50 Mg Tablet) 50 mg PO BEDTIME MRX1 PRN PRN Reason: Insomnia Last Admin: 04/05/25 23:14 Dose: 50 mg Exam Height,Weight and Vital Signs: Height 5 ft 9 in Weight 99.065 kg Last Vital Signs Temp 98.0 F 05/10/25 12:15 Pulse 100 05/10/25 12:15 Resp 16 05/10/25 12:15 BP 106/74 05/10/25 12:15 Pulse Ox 95 05/10/25 09:18 O2 Del Method Room Air 05/10/25 07:58 O2 Flow Rate 2 05/07/25 12:33 Pertinent Lab Results Pertinent Lab Results: Laboratory Tests 03/26/25 03/26/25 03/27/25 14:42 15:45 08:31 WBC 9.9 RBC 4.34 L Hgb 12.8 L Hct 38.3 L MCV 88.2 MCH 29.5 MCHC 33.4 RDW 14.6 Plt Count 191 MPV 10.6 Immature Gran % (Auto) 0.2 Neut % (Auto) 61.2 Lymph % (Auto) 28.9 [place] % (Auto) 8.8 Eos % (Auto) 0.7 Baso % (Auto) 0.2 Lymph # (Auto) 2.9 [place] # (Auto) 0.9 Eos # (Auto) 0.1 Baso # (Auto) 0.0 Abs Immat Gran (auto) 0.02 Absolute Neuts (auto) 6.1 Absolute Nucleated RBC 0.000 Nucleated RBC % (auto) 0.0 Sodium 138 143 Potassium 4.4 4.2 Chloride 103 106 Carbon Dioxide 26 23 Anion Gap 13 18 BUN 18 H 16 Creatinine 1.55 H 1.19 Estim Creat Clear Calc 65.6 86.0 Estimated GFR 48 > 60 POC Glucose Random Glucose 93 78 Estimat Average Glucose 91 Hemoglobin A1c % 4.8 Calcium 9.0 9.0 Total Bilirubin 1.1 H AST 28 ALT 11 Alkaline Phosphatase 62 B-Natriuretic Peptide Total Protein 6.0 L Albumin 3.7 Triglycerides 66 Cholesterol 153 LDL Cholesterol, Calc 92 HDL Cholesterol 48 TSH 3.31 Free T4 1.09 Urine Color Yellow Urine Appearance Cloudy Urine pH 5.5 Ur Specific [place] 1.015 Urine Protein 30 (1+) H Urine Glucose (UA) Negative Urine Ketones Negative Urine Blood Negative Urine Nitrite Negative Ur Leukocyte Esterase Trace H Urine RBC 0-2 Urine WBC 0-5 Ur Squamous Epith Cells 6-10 Urine Bacteria None Seen Hyaline Casts >20 Salicylates < 5.0 L Urine Opiates Screen Not Detected Ur Buprenorphine Scrn Not Detected Ur Oxycodone Screen Not Detected Urine Methadone Screen Not Detected Urine Fentanyl Screen Not Detected Acetaminophen < 3 Ur Barbiturates Screen Not Detected Ur Phencyclidine Scrn Not Detected Ur Amphetamines Screen Not Detected U Benzodiazepines Scrn Not Detected Urine Cocaine Screen Not Detected U Marijuana (THC) Screen Not Detected Ethyl Alcohol < 10 T.pallidum Ab (EIA) Influenza Type A (PCR) NEGATIVE Influenza Type B (PCR) NEGATIVE RSV RNA Qual (PCR) NEGATIVE SARS-CoV-2 RNA (RT-PCR) NEGATIVE 04/06/25 04/07/25 04/07/25 14:28 08:07 21:30 WBC 9.1 RBC 4.59 L Hgb 13.4 L Hct 40.9 L MCV 89.1 MCH 29.2 MCHC 32.8 RDW 14.0 Plt Count 303 D MPV 10.6 Immature Gran % (Auto) 0.4 Neut % (Auto) 58.1 Lymph % (Auto) 32.8 [place] % (Auto) 6.4 Eos % (Auto) 2.1 Baso % (Auto) 0.2 Lymph # (Auto) 3.0 [place] # (Auto) 0.6 Eos # (Auto) 0.2 Baso # (Auto) 0.0 Abs Immat Gran (auto) 0.04 H Absolute Neuts (auto) 5.3 Absolute Nucleated RBC 0.000 Nucleated RBC % (auto) 0.0 Sodium 143 Potassium 4.6 Chloride 105 Carbon Dioxide 28 Anion Gap 15 BUN 17 H Creatinine 1.35 Estim Creat Clear Calc 75.5 Estimated GFR 56 POC Glucose Random Glucose 96 Estimat Average Glucose Hemoglobin A1c % Calcium 9.4 Total Bilirubin 0.6 AST 26 ALT 23 Alkaline Phosphatase 66 B-Natriuretic Peptide Total Protein 6.4 L Albumin 3.9 Triglycerides Cholesterol LDL Cholesterol, Calc HDL Cholesterol TSH 2.42 Free T4 Urine Color Yellow Urine Appearance Clear Urine pH 6.0 Ur Specific [place] 1.010 Urine Protein Negative Urine Glucose (UA) Negative Urine Ketones Negative Urine Blood Negative Urine Nitrite Negative Ur Leukocyte Esterase Negative Urine RBC Urine WBC Ur Squamous Epith Cells Urine Bacteria Hyaline Casts Salicylates Urine Opiates Screen Ur Buprenorphine Scrn Ur Oxycodone Screen Urine Methadone Screen Urine Fentanyl Screen Acetaminophen Ur Barbiturates Screen Ur Phencyclidine Scrn Ur Amphetamines Screen U Benzodiazepines Scrn Urine Cocaine Screen U Marijuana (THC) Screen Ethyl Alcohol T.pallidum Ab (EIA) Influenza Type A (PCR) Influenza Type B (PCR) RSV RNA Qual (PCR) SARS-CoV-2 RNA (RT-PCR) 04/10/25 04/20/25 04/23/25 09:18 20:47 10:35 WBC 8.6 RBC 4.73 Hgb 14.0 Hct 41.5 L MCV 87.7 MCH 29.6 MCHC 33.7 RDW 13.2 Plt Count 233 MPV 10.3 Immature Gran % (Auto) 0.5 H Neut % (Auto) 58.3 Lymph % (Auto) 33.4 [place] % (Auto) 5.9 Eos % (Auto) 1.6 Baso % (Auto) 0.3 Lymph # (Auto) 2.9 [place] # (Auto) 0.5 Eos # (Auto) 0.1 Baso # (Auto) 0.0 Abs Immat Gran (auto) 0.04 H Absolute Neuts (auto) 5.0 Absolute Nucleated RBC 0.000 Nucleated RBC % (auto) 0.0 Sodium 139 Potassium 4.6 Chloride 105 Carbon Dioxide 27 Anion Gap 12 BUN 21 H Creatinine 1.40 Estim Creat Clear Calc 73.3 Estimated GFR 54 POC Glucose 102 Random Glucose 87 Estimat Average Glucose Hemoglobin A1c % Calcium 8.8 D Total Bilirubin 0.8 AST 20 ALT 17 Alkaline Phosphatase 65 B-Natriuretic Peptide < 10 Total Protein 6.0 L Albumin 3.6 Triglycerides Cholesterol LDL Cholesterol, Calc HDL Cholesterol TSH Free T4 Urine Color Urine Appearance Urine pH Ur Specific [place] Urine Protein Urine Glucose (UA) Urine Ketones Urine Blood Urine Nitrite Ur Leukocyte Esterase Urine RBC Urine WBC Ur Squamous Epith Cells Urine Bacteria Hyaline Casts Salicylates Urine Opiates Screen Ur Buprenorphine Scrn Ur Oxycodone Screen Urine Methadone Screen Urine Fentanyl Screen Acetaminophen Ur Barbiturates Screen Ur Phencyclidine Scrn Ur Amphetamines Screen U Benzodiazepines Scrn Urine Cocaine Screen U Marijuana (THC) Screen Ethyl Alcohol T.pallidum Ab (EIA) Nonreactive Influenza Type A (PCR) Influenza Type B (PCR) RSV RNA Qual (PCR) SARS-CoV-2 RNA (RT-PCR) Airway Mallampati Class: II TM Dist: >3cm Neck ROM: Full Partial: Upper Heart: rrr Lungs: cta Assessment and Plan Assessment Anesthesia Assessment: Anesthesia Plan Discussed and Chart Reviewed Final Anesthetic Review Family History of Problems with Anesthesia: No History of Problems with Anesthesia: No NPO: Yes ASA Class: III Final Preanesthetic Review: No Changes in Pt Med Stat, Meds/Allgs Chart Reviewed and Consent Obtained/Reviewed Patient Risk: Intermediate Procedure Risk: Intermediate Anesthetic Plan Anesthetic Plan: GA Disposition: Standard PACU
--- NOTE | 2025-05-10 13:51 | MHC.SHP ---
Pre-Procedural Eval Section A - 24 Hr Update-Section A only Date of Service: 05/10/25 The patient is an INPATIENT: Yes Changes since office visit: Yes Patient answered all questions; No Cold of Flu in the past 2 weeks, No New Medical Problems and No Changes in Medication The patient has been examined within 24 hours of the surgical procedure. The History & Physical has been completed within 30 days and I have reviewed it.: Yes Section B - Complete if H&P > 30 days Chief Complaint: SI depression Allergies: Allergies Allergy/AdvReac Type Severity Reaction Status Date / Time pumpkin Allergy Unknown Unknown Verified 12/24/24 12:26 Plan I have reviewed the history and physical and performed a pertinent physical examination on my patient. No changes have occurred unless specified. Time Spent With Patient Time: Total time managing care of this patient today ____ minutes.
--- NOTE | 2025-05-10 13:53 | HO.ECTPROC ---
ECT Procedure Note Diagnosis/Treatment Date of Service: 05/10/25 Diagnosis: Bipolar disorder Previous ECT Date: 05/07/25 Current Treatment Number: 12 Treatment: Series Interval Clinical Notes: Pt flat but feels better generally no si Time: Total time managing care of this patient today ____ minutes. ECT Settings Device: THYMATRON DGx Electrode Placement: Bifrontal Program/Pulse Width: 0.25 Energy Percent: 80 Seizure Duration By EEG (in seconds): 58 Medications Administration General Anesthetic: Etomidate (18) Muscle Relaxant: Succinylcholine (100) Ancillary Medications Analgesics: Torodol - Pre ECT (30) Miscillaneous Medications: Propofol (30) Airway Management Airway Management: Bag Mask Ventilation Treatment Recommendations No Changes Recommended: No change Notes: last tx for now Pt Tolerated Procedure w/o Issue: Yes
[2025-05-10] MEDS: Aspirin Enteric Coated 81 MG TABLET.DR PO (14:47)
[2025-05-10] MEDS: buPROPion HCl XL 300 MG TAB.ER.24H PO (14:48)
--- NOTE | 2025-05-10 17:32 | HO.PSYCHPN ---
Subjective Subjective Date of Service: 05/10/25 Reason For Visit: SI depression Subjective Notes: Conditional Voluntary Interim History: Met w/ pt this am prior to ECT and was present w/ Dr. Ward during pt's ECT. Pt reports feeling good , notes improved mood w/ ECT and milieu therapy. Denies SI. Denies any issuse with ECT. Reports good sleep & appetite. Medication Compliance: Yes Side effects from medications: No Attending Groups: No (did not attend groups today) Review of Systems Had HTN initially after returning from ECT, which resolved w/o intervention within 30 minutes. Mental Status Exam Mental Status Exam Narrative: Appearance: Casually dressed. Somewhat disheveled. Good eye contact Attitude: Cooperative Speech: Fluent and wnl in regard to volume, tone, prosody Motor activity: Calm and without any tics, tremors or dyskinesias. Steady gait Mood: as noted above Affect: appropriate Thought process: goal directed and without evidence of formal thought disorder Thought content: as noted above. Perception: Denies AH/VH and does not appear to respond to internal stimuli Alert/oriented in all spheres Cognition grossly intact Insight: intact Judgment: intact Diagnostics Vital Signs (24Hr): Vital Signs - 24 hr 05/09/25 20:00 05/10/25 07:58 05/10/25 09:18 Temperature 97.5 F 97.7 F 97.7 F Pulse Rate 64 62 62 Respiratory Rate 16 14 18 Blood Pressure 118/60 118/61 118/61 Pulse Oximetry 97 95 95 Oxygen Delivery Method Room Air Room Air 05/10/25 12:15 05/10/25 13:13 05/10/25 13:57 Temperature 98.0 F 97.6 F 97.6 F Pulse Rate 100 60 61 Respiratory Rate 16 20 16 Blood Pressure 106/74 130/82 130/49 L Pulse Oximetry 100 98 Oxygen Delivery Method Room Air Room Air 05/10/25 14:00 05/10/25 14:05 05/10/25 14:10 Temperature 97.6 F Pulse Rate 74 68 72 Respiratory Rate 16 16 16 Blood Pressure 151/83 H 149/93 H 165/92 H Pulse Oximetry 98 98 98 Oxygen Delivery Method Room Air Room Air Room Air 05/10/25 14:25 05/10/25 14:43 05/10/25 15:30 Temperature 97.0 F 97.6 F Pulse Rate 76 70 Respiratory Rate 24 H 18 Blood Pressure 155/76 H 156/108 H 119/83 Pulse Oximetry 96 98 Oxygen Delivery Method Room Air BMI result Body Mass Index 32.2 Labs 04/23/25 10:35 04/23/25 10:35 Imaging Radiology Impressions: ITS Impressions Head CT 04/06/25 13:54 IMPRESSION: No acute intracranial hemorrhage. Bifrontal bitemporal lobes atrophy. Electronically signed by: Roque Guillen MD 04/06/2025 02:15 PM EDT Medications Medications Current Medications Acetaminophen (Acetaminophen 325 Mg Tablet) 650 mg PO Q6H PRN PRN Reason: Headache/Pain, Scale 1-10 Last Admin: 04/14/25 20:25 Dose: 650 mg Al Hydroxide/Mg Hydroxide (Magnesium Hydrox/Alum Hydrox 30 Ml Oral.Susp) 30 ml PO Q6H PRN PRN Reason: Heartburn/Nausea Aspirin (Aspirin Enteric Coated 81 Mg Tablet.) 81 mg PO DAILY [facility] Last Admin: 05/10/25 14:47 Dose: 81 mg Atorvastatin Calcium (Atorvastatin Calcium 20 Mg Tablet) 20 mg PO BEDTIME [facility] Last Admin: 05/09/25 20:17 Dose: 20 mg Bisacodyl (Bisacodyl 5 Mg Tablet.) 10 mg PO DAILY PRN PRN Reason: severe Constipation Last Admin: 04/20/25 08:57 Dose: 10 mg Bupropion HCl (Bupropion Hcl Xl 300 Mg Tab.Er.24h) 300 mg PO DAILY [facility] Last Admin: 05/10/25 14:48 Dose: 300 mg Docusate Sodium (Docusate Sodium 100 Mg Capsule) 100 mg PO BID PRN PRN Reason: constipation Hydroxyzine HCl (Hydroxyzine Hcl 25 Mg Tablet) 25 mg PO Q6H PRN PRN Reason: mild anxiety Last Admin: 03/26/25 23:24 Dose: 25 mg Lurasidone HCl (Lurasidone Hcl 40 Mg Tablet) 40 mg PO DAILY@1700 [facility] Last Admin: 05/10/25 17:21 Dose: 40 mg Magnesium Hydroxide (Milk Of Magnesia 30 Ml Oral.Susp) 30 ml PO DAILY PRN PRN Reason: Constipation Last Admin: 04/17/25 10:24 Dose: 30 ml Modafinil (Modafinil 100 Mg Tablet) 300 mg PO DAILY [facility] Last Admin: 05/10/25 14:48 Dose: 300 mg Naloxone HCl (Naloxone Hcl 0.4 Mg/Ml Vial) 0.04 mg IVPUSH Q5M PRN PRN Reason: Excessive sedation or RR < 8 Nicotine (Nicotine 21 Mg Patch.Td24) 21 mg TRANSDERMA DAILY PRN PRN Reason: nicotine craving Nicotine Polacrilex (Nicotine Polacrilex 2 Mg Gum) 2 mg BUCCAL Q2H PRN PRN Reason: Nicotine Cravings Olanzapine (Olanzapine 5 Mg Tablet) 5 mg PO BID PRN PRN Reason: agitation Ondansetron HCl (Ondansetron Odt 8 Mg Tab.Rapdis) 8 mg TRANSLINGU Q8H PRN PRN Reason: Nausea and Vomiting Polyethylene Glycol (Polyethylene Glycol 3350 17 Gm Powd.Pack) 17 gm PO DAILY PRN PRN Reason: constipation Senna (Sennosides 8.6 Mg Tablet) 17.2 mg PO BEDTIME PRN PRN Reason: Constipation Sodium Chloride (0.9 % Sodium Chloride Flush 10 Ml Syringe) 10 ml IVFLUSH QSHIFT [facility] Last Admin: 05/10/25 16:34 Dose: 10 ml Trazodone HCl (Trazodone Hcl 50 Mg Tablet) 50 mg PO BEDTIME MRX1 PRN PRN Reason: Insomnia Last Admin: 04/05/25 23:14 Dose: 50 mg Allergies Allergies Allergy/AdvReac Type Severity Reaction Status Date / Time pumpkin Allergy Unknown Unknown Verified 12/24/24 12:26 Assessment & Plan Assessment & Plan (1) CKD (chronic kidney disease): Qualifiers: Chronic kidney disease stage: stage 3 (moderate) Chronic kidney disease stage 3 subtype: stage 3a (GFR 45-59) Qualified Code(s): N18.31 - Chronic kidney disease, stage 3a Status: Acute Code(s): N18.9 - Chronic kidney disease, unspecified Assessment and Plan: Patient likely has some mild chronic kidney disease, 3a no proteinuria on most recent UA patient has mild renal disease, given medical history has low risk of developing ESRD requiring dialysis- ok for midline placement. Discussed with Dr Moody. (2) Depression: Qualifiers: Depression Type: unspecified Qualified Code(s): F32.A - Depression, unspecified Status: Acute Code(s): F32.A - Depression, unspecified (3) CVA (cerebral vascular accident): Status: Acute Code(s): I63.9 - Cerebral infarction, unspecified Plan 03/27: feels latuda 120 has been helpful. however, remains depressed. add wellbutrin XL 150 daily for depression, plan to increase to 300 mg daily in 3 days. may also consider ECT due to lack of improvement despite numerous recent hospitalizations + lethality of suicide attempts + recent self-abnegating behaviors. 03/28: no change in presentation, no requests or complaints. started wellbutrin 150 today. continue current mgmt 03/29/25: Slept well, no issues with appetite. Observed out on the unit, attended groups, engaging. Reports depression and 03/21, denies anxiety. Constricted affect, congruent with mood. Denies safety concerns. Compliant with medications. Denies side effects from Wellbutrin. Continue to encourage groups. 03/30/25: Patient slept for 6 hours, was medication compliant. He attended 2 groups yesterday, however today he is more isolated, in bed a lot more time, declines a couple groups. Reports depressed but no anxiety, flat affect, depressed, but cooperative during one-to-one assessment. He is receptive with the plan of Wellbutrin increased up to 300 mg for depression. Reports passive SI, denies plan or intention. Denies other safety concerns. Encourage patient to go to groups and shower daily. Increase Wellbutrin XL to 300 mg daily for depression. He reported that he has bipolar type II. 03/31: Laying in bed. keeping to self. showered. patient reports feeling depressed ; pt stated, I'm not having a good day. I don't want to do anything . flat affect. denies SI/HI/VH/AH. Per nursing, slept 8 hours. encouraged to attend groups. continue current tx plan. 04/01/25: Patient slept for 8 hours, poor meal intake yesterday but was medication compliant. Denies side effects. When asked about if he has poor appetite as he ate only 50 of breakfast, and 25 for lunch and not eating dinner, he said because I did not do the menu, so I got what I do not like . He shower yesterday, continued to reports depression 03/21. Denied anxiety. He does not feel any difference from Wellbutrin 150 when and when it was increased up to 300 mg. Denies SI/SIB/HI/AVH, isolative self, he plans to attend groups today. This provider spoke with patient in length regarding medication trials. Per his report, has been trying so many antidepressants they just do not work, and continued to be depressed. Some of them are Zoloft, Paxil, Effexor, Celexa, Prozac, Cymbalta, Lexapro. He also having history of taking Zyprexa more than 20 years ago due to hearing voices. Then the voices was calm. He never has a take it again after. History of Abilify but not sure if it is working as he can not recall. Regarding ADLs: He said that he had food at the [facility] twice a day, but he is not showering for many days despite the fact that staff asked him to do so I just do not care about being clean . Reports very low energy, low motivation, been increased suicidal thoughts and depression. He used to love music and reading but not interested in doing anything like that anymore. Reported that he had gastric sleeve surgery back in August 2023 which he lost 230 lb. He weight 447 lb prior to the surgery. He identified that after the surgery he has been more depressed slowly over months. There was a time that he wanted to starve myself so I can when asked is that you that he has stopped eating at home. He also identified that he feel more depressed after surgery as he is not able to over eating like he did before. Family mental health illnesses: Reports that who both of his parents was depressed. Mom 11 years ago. 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 History of ECTs: Reports he had history of ECTs in 2010 when he was at in [facility].He felt worse after the treatment everything seems like a dream . He clarified that immediately after the treatment he feel that way which could be a side effects of ECT but not permanent. Educate patient on possible side effects ECTs. Patient denies having seizure during ECTs treatment, no seizure history no cardiac conditions/disease history. Reports history of hypertension, but not anymore. He also has been admitted to different hospitals for psychiatric admissions in the past couple of months. Reports staying at [facility] in December for a month. New hospital in the area names [facility]) in October for another month. Per email from his OP team- clinical director at [facility], they also express concerns of patient's conditions. It is noted that their concerns are very consistent with patient' report here on the unit. He also has been admitted to different hospitals for psychiatric admissions in the past couple of months. Reports staying at [facility] in December for a month. New hospital in the area names [facility]) in October for another month. Per email from his OP team- clinical director at [facility], they also express concerns of patient's conditions. It is noted that their concerns are very consistent with patient' report here on the unit. Alfredito has been in and out on inpatient level of care since October of this year, I believe every month, for a majority of the time. He was recently discharged from [facility] after a 1 month stay and within two hours of returning home wanted to return to the hospital, saying he was unwell, and within one day was sectioned by [facility], which is how he ended up with you now. He has been coming home and intentionally starving himself, even not eating for up to 1 week. We have known Alfredito for years and since this started in October, we have seen no significant improvement in his mental health or a return to baseline. In fact, we are observing his case as consistent with failure to thrive. We have been asking for him to be inpatient at [facility] or with you at [facility] for some time in order for him to be potentially considered for ECT level of treatment, if deemed appropriate. Multiple medication trials failture to target depressive symptoms. He will be a good candidate to get trial ECT treatment in combination with current medication regimens. Patient also agrees with the plan. We would start the treatment as soon as possible. Will discuss the case with in house psychiatrist-Dr. Ward to prepare for ECT treatment. Hope to start early next week. 04/02: Laying in bed. keeping to self. Patient continues to report feeling depressed; pt stated, I feel about the same. I spoke with the other provider and agreed to do ECT . He reports sleeping well. denies SI/HI/VH/AH. Encouraged to attend groups and shower. Continue current tx plan. 04/03: no changes- just started wellbutrin 04/04: no changes 04/05/25: report anxiety a 2-3/10 but still 8/10 for depression. No change since started Wellbutrin. He agrees to get Wellbutrin up to 450mg daily for depression. Isolative in room, staring up to the ceiling. Discuss with patient of option to start on Intuniv for severe depression. Patient declines it at this current time but agree to see Welbutrin increased would be helpful. He agrees with ECT. Encourage groups, he says he was at art group out to dinning area but there are too much so he went back to his room. Report not many groups offered over the weekends. 04/06/25: Patient slept for 6 hours, have a sleep study done last night. Reported that he did not sleep well. Appetite is okay. Mood is depressed 03/21, denies anxiety today. Denies suicidal thoughts, but reports he has passive SI yesterday intrusive, just do not Wanna live anymore . Denies hallucinations. Address with patient of why he having bowel movement in the shower. He said it is just one episode. Reports he feel constipated. Agree with Colace. He also inform regarding the ECT which was approved by the insurance. He compliant with medication, however reports he has not feeling any difference in terms of depression at since started on Wellbutrin. Encourage groups attendance. Observe him later on during the day reading at a table in dining area. Colace 100mg BID for constipation. ECT consult placed: Patient may be seen by tomorrow by Dr. Ward. Procedure done preparing for the ECT: Head CT scan negative, EKG normal sinus rhythm, Incomplete right bundle branch block. Borderline ECG_ no change when compare to previous EKG. Unremarkable CBC with diff. 04/07/25: Per hospitalist note: ECT risk stratification Patient without previous problems with anesthesia, has previously undergone ECT RCRI 0 points, no further cardiac workup or treatment indicated at this time EKG showed QT interval WNL, no evidence of ischemic changes Based on stated PMH, HPI, and physical exam, there are no apparent medical contraindications to the planned procedure. Patient is complaining of pelvic discomfort and constipation. We will add therapy with Senokot, MiraLax and obtain urinalysis to assess for urinary tract infection. Continue treatment with atorvastatin and aspirin for history of stroke and hyperlipidemia. 04/07/25: Patient compliant with medication, reports due to the pain abdominal, he could not sleep well last night. Continued to reports depressions 8/10, anxiety 4/10 today related to the pain. Denies suicidal thoughts or voices, isolated. Shower yesterday. Review with patient test need to be done prior to having ECT. Patient met with Dr. Ward and hospitalist for ECT clearance. Due to the pain, constipated, more laxative ordered today. Also UA other by hospitalist to rule out any infection. He is flat, low energy, low motivation, withdrawal, in room mostly, but come out to other rooms to talk to the providers 04/08/25: Patient slept for 8 hours, compliant with medications, denies side effect. Met with him in his room, reported that he slept better last night, having good bowel movement, denies diarrhea is. Informed him regarding the labs work/and UA that was negative to rule out UTI. Denies pain. Explained to patient regarding pre ECT procedures/test to prepare for the day that he going to start. We will start ECT on Saturday. Per Dr. Ward, we will taper down on Latuda, start him on Modafinil low dose to help with severe depression. Continued to reports moderate to severe depression. Denies suicidal thoughts or hallucinations. 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 He denied any significant or excessive drug exposure. I do not find any focal lesion, acute or chronic, suggestive of stroke. There was no contraindication to treatment with ECT. Otherwise treatment of this condition is supportive, symptomatic and conservative Taper down on Latuda from 120 down to 100 mg daily at 17:00 for mood. Start on Modefinil 100ng daily for severe depression, low energy, poor concentration, poor motivation. ECT will be scheduled next week on Saturday. We will received treatment for Saturday/Saturday and Saturday. 04/09/25: Patient denies pain, normal bowel movement, slept well and compliant with medications. Denies side effects. Denies suicidal thoughts or hallucinations but reports mild on anxiety and moderate to severe depression. Patient appeared to be disheveled. Encourage patient to be out of bed in attended to groups included OT groups which observe he is visible in day room after the conversation. The OT will do the Tensas for pre ECT next week on Saturday prior the ECT. He started modafinil 50 mg this morning. Indication and side effects explained to patient. Patient is receptive with the plan. Correction: Modefinill 50mg daily. MOCA scheduled next week prior to ECT. 04/10:Laying in bed most of morning. Patient continues to report feeling depressed. He reports looking forward to ECT; pt stated, I think it will be a positive step to get ECT . denies SI/HI/VH/AH. Encouraged to get out of bed. Continue tx plan 04/11: Per nursing, pt did not get out of bed yesterday. Observed laying in bed this morning; encouraged to attend groups and shower. Patient continues to report feeling depressed. denies SI/HI/VH/AH. Encouraged to get out of bed. Continue tx plan. 04/12: continue current tx plan 04/13: stably depressed. PMR. start ECT tomorrow, otherwise continue current mgmt. NPO past MN. 04/14/25: got his first ECT treatment this afternoon. Patient slept for 6 hours, was medication compliant. However, this morning due to the delay of the ECT treatment, he was not happy about the delay into the afternoon. He appeared to be frustrated, irritable, and not cooperative with this provider I do not want to talk to anyone . I am done talking . I do not care when asked his last bowel movement. Per nursing, patient denies suicidal thoughts, other safety concerns. Reports he has no bowel movement x4 days. Medication this morning was held until after the ECT. He also was given citrate magnesium x1. Pending effect. 04/15: made bowel movement. ECT #2 tomorrow. no change in mood or presentation as of today. T/C increasing modafanil to 200 mg sometime next week. 04/16: completed ECT without incident. no FLOWERS today. no change in presentation otherwise. continue current mgmt. ECT #3 saturday. 04/17/2025: No changes. ECT # 3 Saturday04/19/202504/18: no changes 04/19: completed ECT #3 today. no FLOWERS, no change in presentation, no change in mood. continue current mgmt. T/C modafanil increase. 04/20: mood starting to improve. laughed, affect brighter and more flexible. ECT tomorrow, NPO after midnight. continue current mgmt otherwise. 04/21: irritable at afternoon ECT. short today. continue current mgmt. 04/22: not irritable, appears depressed, says mood is unchanged. ECT tomorrow. continue current mgmt. strongly consider increase in modafanil dosing. 04/23/2025: Patient seen ECT completed bilaterally. Patient with markedly poor ADLs almost catatonic like allowing himself to be covered in feces not showering or caring for himself. Change ECT to 0.25 would follow-up on response to bilateral treatment if to withdrawn would may be secondary to bilateral and might consider return to right unilateral. Wellbutrin lowered to 300 mg modafinil was started at 100 mg can consider increase to 150 mg targeting apathy lethargy. Patient started on lorazepam 1 mg p.o. t.i.d. had test doses and seemed significantly improved with more fluid speech and increase range of affect hold lorazepam night prior to ECT 04/24/25: Patient slept for 8 hours, no appetite issues. Denies SI/SIB/HI/AVH. Report anxiety a 2/10 and anxiety an 8/10 which he says he does not feel much different yet from ECT. He denies short term memory. He denies FLOWERS or tireness now but says shortly after ECT he had FLOWERS from yesterday which has been gone. He reports normal BM which laxative was held yesterday. Observed patient spent couple hours in dinning areas, eating out in activity room and spent time watching TV. Nursing also reports patient attended group in the art room as well. He also showered yesterday. He is visible, but quiet keep to self, flat affect, depressed mood. Slightly improvement compare to last visit that this provider saw him about 1-2 weeks ago. Ativan started yesterday which seem to have some effects. 04/25/25: Patient slept for 8 hours, compliant with medications, denies side effects. Deny feeling tired on Ativan. Per nursing patient have incident of incontinence of feces yesterday. Therefore Colace and MiraLax and senna has been held. Notes on to hold when has loose stools. Patient denies safety concerns. Reported the same anxiety and depression level. He is more in bed today compared to yesterday but was out for meals. Flat affect, fair eye contact, resting in room. Attended no groups. No changes in terms of mental status. May have ECT on Saturday. 04/26: in bed after ECT. flat, withdrawn, slowed, soft. states his mood remains the same as before, no better and no worse. agreeable to increase modafanil to 150 mg. no apparent cognitive or memory deficits. 04/27: perhaps less slowed than recently. hold ativan this afternoon and overnight. NPO past MN. continue bifrontal ECT in the morning. 04/28: faster and more flexible affect. feels he is improving. decrease ativan from 1 mg TID to 0.5 mg TID. otherwise continue current mgmt. 04/29: as for yesterday. continue current mgmt. hold ativan after 3, NPO after MN. ECT in the morning. 04/30: ECT today uneventful. increase modafanil to 200 tomorrow. DC ativan after saturday morning dose. ECT saturday. NPO past MN saturday. otherwise continue current mgmt. 05/01: Continue current management and treatment plan. 05/02: continue current management and treatment plan. 05/03: ECT #9 completed uneventfully this morning. mood remains improved but pt still spending much of the day in bed with depressive facies. continue current mgmt. 05/04: appears a bit brighter, awake this morning. ECT #10 tomorrow. continue current mgmt. 05/05: poorer hygiene, not showering. reporting mood trending down again. open to increasing modafanil. continue current mgmt for now. 05/06: reports he showered and mood somewhat improved. amenable to increase modafanil to 300 mg as of tomorrow. ECT tomorrow. NPO p MN. 05/07: ECT #10 completed. mood trending better, more expressive. continue current mgmt. 05/08: mood improved, affective range improved. continue current mgmt. 05/09: mood remains improved, affect brighter. ECT tomorrow. continue current mgmt. 05/10: ECT #11 completed. Mood continues to improve. Will continue current med regimen/tx plan for now. Informed Consent: understands Reason for continued inpatient stay Substantial Risk for: med/psych decompensation Time Spent With Patient Time: Total time managing care of this patient today _30___ minutes.
[2025-05-11] MEDS: 0.9 % Sodium Chloride Flush 10 ML SYRINGE IVFLUSH ×2 (00:11→16:23)
[2025-05-11 07:58] VITALS: BP 107/61; PULSE 65; RESP 20; TEMP 36.5; O2SAT 98
[2025-05-11] MEDS: Aspirin Enteric Coated 81 MG TABLET.DR PO (08:32)
[2025-05-11] MEDS: buPROPion HCl XL 300 MG TAB.ER.24H PO (08:33)
--- NOTE | 2025-05-11 09:34 | HO.PSYCHPN ---
Subjective Subjective Date of Service: 05/11/25 Reason For Visit: SI depression Interim History: Case discussed with tx team, chart reviewed getting new PICC for ECT Per tx team, pt has had slight improvement in depression w/ ECT not showering, lying in bed all day, brightens up at times defacated in the shower ~1 wk ago, which seems to be the last time he did shower Pt reports feeling okay. Denies any issues with ECT. Reports good sleep/appetite. Agreeable w/ plan to undergo ECT tomorrow Review of Systems Review of Systems Constipation improving. No SOB/Wheezing. No N/V. No FLOWERS or cough. Yes all other systems are reviewed and are negative Mental Status Exam Mental Status Exam Narrative: Appearance: Casually dressed. Somewhat disheveled. Good eye contact Attitude: Cooperative Speech: limited speech, otherwise wnl Motor activity: Calm and without any tics, tremors or dyskinesias. Steady gait Mood: blunted Affect: appropriate Thought process: goal directed and without evidence of formal thought disorder Thought content: as noted above. Perception: Denies AH/VH and does not appear to respond to internal stimuli Insight: fair Judgment:fair Diagnostics Vital Signs (24Hr): Vital Signs - 24 hr 05/10/25 12:15 05/10/25 13:13 05/10/25 13:57 Temperature 98.0 F 97.6 F 97.6 F Pulse Rate 100 60 61 Respiratory Rate 16 20 16 Blood Pressure 106/74 130/82 130/49 L Pulse Oximetry 100 98 Oxygen Delivery Method Room Air Room Air 05/10/25 14:00 05/10/25 14:05 05/10/25 14:10 Temperature 97.6 F Pulse Rate 74 68 72 Respiratory Rate 16 16 16 Blood Pressure 151/83 H 149/93 H 165/92 H Pulse Oximetry 98 98 98 Oxygen Delivery Method Room Air Room Air Room Air 05/10/25 14:25 05/10/25 14:43 05/10/25 15:30 Temperature 97.0 F 97.6 F Pulse Rate 76 70 Respiratory Rate 24 H 18 Blood Pressure 155/76 H 156/108 H 119/83 Pulse Oximetry 96 98 Oxygen Delivery Method Room Air 05/10/25 20:00 05/11/25 07:58 Temperature 98.0 F 97.7 F Pulse Rate 77 65 Respiratory Rate 18 20 Blood Pressure 125/61 107/61 Pulse Oximetry 97 98 Oxygen Delivery Method Room Air Room Air BMI result Body Mass Index 32.2 Labs 04/23/25 10:35 04/23/25 10:35 Imaging Radiology Impressions: ITS Impressions Head CT 04/06/25 13:54 IMPRESSION: No acute intracranial hemorrhage. Bifrontal bitemporal lobes atrophy. Electronically signed by: Roque Guillen MD 04/06/2025 02:15 PM EDT RP Medications Medications Current Medications Acetaminophen (Acetaminophen 325 Mg Tablet) 650 mg PO Q6H PRN PRN Reason: Headache/Pain, Scale 1-10 Last Admin: 04/14/25 20:25 Dose: 650 mg Al Hydroxide/Mg Hydroxide (Magnesium Hydrox/Alum Hydrox 30 Ml Oral.Susp) 30 ml PO Q6H PRN PRN Reason: Heartburn/Nausea Aspirin (Aspirin Enteric Coated 81 Mg Tablet.) 81 mg PO DAILY [facility] Last Admin: 05/11/25 08:32 Dose: 81 mg Atorvastatin Calcium (Atorvastatin Calcium 20 Mg Tablet) 20 mg PO BEDTIME [facility] Last Admin: 05/10/25 20:28 Dose: 20 mg Bisacodyl (Bisacodyl 5 Mg Tablet.) 10 mg PO DAILY PRN PRN Reason: severe Constipation Last Admin: 04/20/25 08:57 Dose: 10 mg Bupropion HCl (Bupropion Hcl Xl 300 Mg Tab.Er.24h) 300 mg PO DAILY [facility] Last Admin: 05/11/25 08:33 Dose: 300 mg Docusate Sodium (Docusate Sodium 100 Mg Capsule) 100 mg PO BID PRN PRN Reason: constipation Hydroxyzine HCl (Hydroxyzine Hcl 25 Mg Tablet) 25 mg PO Q6H PRN PRN Reason: mild anxiety Last Admin: 03/26/25 23:24 Dose: 25 mg Lurasidone HCl (Lurasidone Hcl 40 Mg Tablet) 40 mg PO DAILY@1700 [facility] Last Admin: 05/10/25 17:21 Dose: 40 mg Magnesium Hydroxide (Milk Of Magnesia 30 Ml Oral.Susp) 30 ml PO DAILY PRN PRN Reason: Constipation Last Admin: 04/17/25 10:24 Dose: 30 ml Modafinil (Modafinil 100 Mg Tablet) 300 mg PO DAILY [facility] Last Admin: 05/11/25 08:32 Dose: 300 mg Naloxone HCl (Naloxone Hcl 0.4 Mg/Ml Vial) 0.04 mg IVPUSH Q5M PRN PRN Reason: Excessive sedation or RR < 8 Nicotine (Nicotine 21 Mg Patch.Td24) 21 mg TRANSDERMA DAILY PRN PRN Reason: nicotine craving Nicotine Polacrilex (Nicotine Polacrilex 2 Mg Gum) 2 mg BUCCAL Q2H PRN PRN Reason: Nicotine Cravings Olanzapine (Olanzapine 5 Mg Tablet) 5 mg PO BID PRN PRN Reason: agitation Ondansetron HCl (Ondansetron Odt 8 Mg Tab.Rapdis) 8 mg TRANSLINGU Q8H PRN PRN Reason: Nausea and Vomiting Polyethylene Glycol (Polyethylene Glycol 3350 17 Gm Powd.Pack) 17 gm PO DAILY PRN PRN Reason: constipation Senna (Sennosides 8.6 Mg Tablet) 17.2 mg PO BEDTIME PRN PRN Reason: Constipation Sodium Chloride (0.9 % Sodium Chloride Flush 10 Ml Syringe) 10 ml IVFLUSH QSHIFT JENNIFER Last Admin: 05/11/25 00:11 Dose: 10 ml Trazodone HCl (Trazodone Hcl 50 Mg Tablet) 50 mg PO BEDTIME MRX1 PRN PRN Reason: Insomnia Last Admin: 04/05/25 23:14 Dose: 50 mg Allergies Allergies Allergy/AdvReac Type Severity Reaction Status Date / Time pumpkin Allergy Unknown Unknown Verified 12/24/24 12:26 Assessment & Plan Assessment & Plan (1) Depression: Qualifiers: Depression Type: unspecified Qualified Code(s): F32.A - Depression, unspecified Status: Acute Code(s): F32.A - Depression, unspecified (2) CKD (chronic kidney disease): Qualifiers: Chronic kidney disease stage: stage 3 (moderate) Chronic kidney disease stage 3 subtype: stage 3a (GFR 45-59) Qualified Code(s): N18.31 - Chronic kidney disease, stage 3a Status: Acute Code(s): N18.9 - Chronic kidney disease, unspecified Assessment and Plan: Patient likely has some mild chronic kidney disease, 3a no proteinuria on most recent UA patient has mild renal disease, given medical history has low risk of developing ESRD requiring dialysis- ok for midline placement. Discussed with Dr Moody. (3) CVA (cerebral vascular accident): Status: Acute Code(s): I63.9 - Cerebral infarction, unspecified Plan 03/27: feels latuda 120 has been helpful. however, remains depressed. add wellbutrin XL 150 daily for depression, plan to increase to 300 mg daily in 3 days. may also consider ECT due to lack of improvement despite numerous recent hospitalizations + lethality of suicide attempts + recent self-abnegating behaviors. 03/28: no change in presentation, no requests or complaints. started wellbutrin 150 today. continue current mgmt 03/29/25: Slept well, no issues with appetite. Observed out on the unit, attended groups, engaging. Reports depression and 03/21, denies anxiety. Constricted affect, congruent with mood. Denies safety concerns. Compliant with medications. Denies side effects from Wellbutrin. Continue to encourage groups. 03/30/25: Patient slept for 6 hours, was medication compliant. He attended 2 groups yesterday, however today he is more isolated, in bed a lot more time, declines a couple groups. Reports depressed but no anxiety, flat affect, depressed, but cooperative during one-to-one assessment. He is receptive with the plan of Wellbutrin increased up to 300 mg for depression. Reports passive SI, denies plan or intention. Denies other safety concerns. Encourage patient to go to groups and shower daily. Increase Wellbutrin XL to 300 mg daily for depression. He reported that he has bipolar type II. 03/31: Laying in bed. keeping to self. showered. patient reports feeling depressed ; pt stated, I'm not having a good day. I don't want to do anything . flat affect. denies SI/HI/VH/AH. Per nursing, slept 8 hours. encouraged to attend groups. continue current tx plan. 04/01/25: Patient slept for 8 hours, poor meal intake yesterday but was medication compliant. Denies side effects. When asked about if he has poor appetite as he ate only 50 of breakfast, and 25 for lunch and not eating dinner, he said because I did not do the menu, so I got what I do not like . He shower yesterday, continued to reports depression 03/21. Denied anxiety. He does not feel any difference from Wellbutrin 150 when and when it was increased up to 300 mg. Denies SI/SIB/HI/AVH, isolative self, he plans to attend groups today. This provider spoke with patient in length regarding medication trials. Per his report, has been trying so many antidepressants they just do not work, and continued to be depressed. Some of them are Zoloft, Paxil, Effexor, Celexa, Prozac, Cymbalta, Lexapro. He also having history of taking Zyprexa more than 20 years ago due to hearing voices. Then the voices was calm. He never has a take it again after. History of Abilify but not sure if it is working as he can not recall. Regarding ADLs: He said that he had food at the intermediate twice a day, but he is not showering for many days despite the fact that staff asked him to do so I just do not care about being clean . Reports very low energy, low motivation, been increased suicidal thoughts and depression. He used to love music and reading but not interested in doing anything like that anymore. Reported that he had gastric sleeve surgery back in August 2023 which he lost 230 lb. He weight 447 lb prior to the surgery. He identified that after the surgery he has been more depressed slowly over months. There was a time that he wanted to starve myself so I can when asked is that you that he has stopped eating at home. He also identified that he feel more depressed after surgery as he is not able to over eating like he did before. Family mental health illnesses: Reports that who both of his parents was depressed. Mom 11 years ago. 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 History of ECTs: Reports he had history of ECTs in 2010 when he was at in [facility].He felt worse after the treatment everything seems like a dream . He clarified that immediately after the treatment he feel that way which could be a side effects of ECT but not permanent. Educate patient on possible side effects ECTs. Patient denies having seizure during ECTs treatment, no seizure history no cardiac conditions/disease history. Reports history of hypertension, but not anymore. He also has been admitted to different hospitals for psychiatric admissions in the past couple of months. Reports staying at [facility] in December for a month. New hospital in the area names [facility]) in October for another month. Per email from his OP team- clinical director at [facility], they also express concerns of patient's conditions. It is noted that their concerns are very consistent with patient' report here on the unit. He also has been admitted to different hospitals for psychiatric admissions in the past couple of months. Reports staying at [facility] in December for a month. New hospital in the area names [facility]) in October for another month. Per email from his OP team- clinical director at [facility], they also express concerns of patient's conditions. It is noted that their concerns are very consistent with patient' report here on the unit. Alfredito has been in and out on inpatient level of care since October of this year, I believe every month, for a majority of the time. He was recently discharged from [facility] after a 1 month stay and within two hours of returning home wanted to return to the hospital, saying he was unwell, and within one day was sectioned by [facility], which is how he ended up with you now. He has been coming home and intentionally starving himself, even not eating for up to 1 week. We have known Alfredito for years and since this started in October, we have seen no significant improvement in his mental health or a return to baseline. In fact, we are observing his case as consistent with failure to thrive. We have been asking for him to be inpatient at [facility] or with you at [facility] for some time in order for him to be potentially considered for ECT level of treatment, if deemed appropriate. Multiple medication trials failture to target depressive symptoms. He will be a good candidate to get trial ECT treatment in combination with current medication regimens. Patient also agrees with the plan. We would start the treatment as soon as possible. Will discuss the case with in house psychiatrist-Dr. Ward to prepare for ECT treatment. Hope to start early next week. 04/02: Laying in bed. keeping to self. Patient continues to report feeling depressed; pt stated, I feel about the same. I spoke with the other provider and agreed to do ECT . He reports sleeping well. denies SI/HI/VH/AH. Encouraged to attend groups and shower. Continue current tx plan. 04/03: no changes- just started wellbutrin 04/04: no changes 04/05/25: report anxiety a 2-3 but still 03/21 for depression. No change since started Wellbutrin. He agrees to get Wellbutrin up to 450mg daily for depression. Isolative in room, staring up to the ceiling. Discuss with patient of option to start on Intuniv for severe depression. Patient declines it at this current time but agree to see Welbutrin increased would be helpful. He agrees with ECT. Encourage groups, he says he was at art group out to dinning area but there are too much so he went back to his room. Report not many groups offered over the weekends. 04/06/25: Patient slept for 6 hours, have a sleep study done last night. Reported that he did not sleep well. Appetite is okay. Mood is depressed 03/21, denies anxiety today. Denies suicidal thoughts, but reports he has passive SI yesterday intrusive, just do not Wanna live anymore . Denies hallucinations. Address with patient of why he having bowel movement in the shower. He said it is just one episode. Reports he feel constipated. Agree with Colace. He also inform regarding the ECT which was approved by the insurance. He compliant with medication, however reports he has not feeling any difference in terms of depression at since started on Wellbutrin. Encourage groups attendance. Observe him later on during the day reading at a table in dining area. Colace 100mg BID for constipation. ECT consult placed: Patient may be seen by tomorrow by Dr. Ward. Procedure done preparing for the ECT: Head CT scan negative, EKG normal sinus rhythm, Incomplete right bundle branch block. Borderline ECG_ no change when compare to previous EKG. Unremarkable CBC with diff. 04/07/25: Per hospitalist note: ECT risk stratification Patient without previous problems with anesthesia, has previously undergone ECT RCRI 0 points, no further cardiac workup or treatment indicated at this time EKG showed QT interval WNL, no evidence of ischemic changes Based on stated PMH, HPI, and physical exam, there are no apparent medical contraindications to the planned procedure. Patient is complaining of pelvic discomfort and constipation. We will add therapy with Senokot, MiraLax and obtain urinalysis to assess for urinary tract infection. Continue treatment with atorvastatin and aspirin for history of stroke and hyperlipidemia. 04/07/25: Patient compliant with medication, reports due to the pain abdominal, he could not sleep well last night. Continued to reports depressions 8/10, anxiety 4/10 today related to the pain. Denies suicidal thoughts or voices, isolated. Shower yesterday. Review with patient test need to be done prior to having ECT. Patient met with Dr. Ward and hospitalist for ECT clearance. Due to the pain, constipated, more laxative ordered today. Also UA other by hospitalist to rule out any infection. He is flat, low energy, low motivation, withdrawal, in room mostly, but come out to other rooms to talk to the providers 04/08/25: Patient slept for 8 hours, compliant with medications, denies side effect. Met with him in his room, reported that he slept better last night, having good bowel movement, denies diarrhea is. Informed him regarding the labs work/and UA that was negative to rule out UTI. Denies pain. Explained to patient regarding pre ECT procedures/test to prepare for the day that he going to start. We will start ECT on Saturday. Per Dr. Ward, we will taper down on Latuda, start him on Modafinil low dose to help with severe depression. Continued to reports moderate to severe depression. Denies suicidal thoughts or hallucinations. 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 He denied any significant or excessive drug exposure. I do not find any focal lesion, acute or chronic, suggestive of stroke. There was no contraindication to treatment with ECT. Otherwise treatment of this condition is supportive, symptomatic and conservative Taper down on Latuda from 120 down to 100 mg daily at 17:00 for mood. Start on Modefinil 100ng daily for severe depression, low energy, poor concentration, poor motivation. ECT will be scheduled next week on Saturday. We will received treatment for Saturday/Saturday and Saturday. 04/09/25: Patient denies pain, normal bowel movement, slept well and compliant with medications. Denies side effects. Denies suicidal thoughts or hallucinations but reports mild on anxiety and moderate to severe depression. Patient appeared to be disheveled. Encourage patient to be out of bed in attended to groups included OT groups which observe he is visible in day room after the conversation. The OT will do the [place] for pre ECT next week on [place] prior the ECT. He started modafinil 50 mg this morning. Indication and side effects explained to patient. Patient is receptive with the plan. Correction: Modefinill 50mg daily. MOCA scheduled next week prior to ECT. 04/10:Laying in bed most of morning. Patient continues to report feeling depressed. He reports looking forward to ECT; pt stated, I think it will be a positive step to get ECT . denies SI/HI/VH/AH. Encouraged to get out of bed. Continue tx plan 04/11: Per nursing, pt did not get out of bed yesterday. Observed laying in bed this morning; encouraged to attend groups and shower. Patient continues to report feeling depressed. denies SI/HI/VH/AH. Encouraged to get out of bed. Continue tx plan. 04/12: continue current tx plan 04/13: stably depressed. PMR. start ECT tomorrow, otherwise continue current mgmt. NPO past MN. 04/14/25: got his first ECT treatment this afternoon. Patient slept for 6 hours, was medication compliant. However, this morning due to the delay of the ECT treatment, he was not happy about the delay into the afternoon. He appeared to be frustrated, irritable, and not cooperative with this provider I do not want to talk to anyone . I am done talking . I do not care when asked his last bowel movement. Per nursing, patient denies suicidal thoughts, other safety concerns. Reports he has no bowel movement x4 days. Medication this morning was held until after the ECT. He also was given citrate magnesium x1. Pending effect. 04/15: made bowel movement. ECT #2 tomorrow. no change in mood or presentation as of today. T/C increasing modafanil to 200 mg sometime next week. 04/16: completed ECT without incident. no FLOWERS today. no change in presentation otherwise. continue current mgmt. ECT #3 saturday. 04/17/2025: No changes. ECT # 3 Saturday04/19/202504/18: no changes 04/19: completed ECT #3 today. no FLOWERS, no change in presentation, no change in mood. continue current mgmt. T/C modafanil increase. 04/20: mood starting to improve. laughed, affect brighter and more flexible. ECT tomorrow, NPO after midnight. continue current mgmt otherwise. 04/21: irritable at afternoon ECT. short today. continue current mgmt. 04/22: not irritable, appears depressed, says mood is unchanged. ECT tomorrow. continue current mgmt. strongly consider increase in modafanil dosing. 04/23/2025: Patient seen ECT completed bilaterally. Patient with markedly poor ADLs almost catatonic like allowing himself to be covered in feces not showering or caring for himself. Change ECT to 0.25 would follow-up on response to bilateral treatment if to withdrawn would may be secondary to bilateral and might consider return to right unilateral. Wellbutrin lowered to 300 mg modafinil was started at 100 mg can consider increase to 150 mg targeting apathy lethargy. Patient started on lorazepam 1 mg p.o. t.i.d. had test doses and seemed significantly improved with more fluid speech and increase range of affect hold lorazepam night prior to ECT 04/24/25: Patient slept for 8 hours, no appetite issues. Denies SI/SIB/HI/AVH. Report anxiety a 2/10 and anxiety an 8/10 which he says he does not feel much different yet from ECT. He denies short term memory. He denies FLOWERS or tireness now but says shortly after ECT he had FLOWERS from yesterday which has been gone. He reports normal BM which laxative was held yesterday. Observed patient spent couple hours in dinning areas, eating out in activity room and spent time watching TV. Nursing also reports patient attended group in the art room as well. He also showered yesterday. He is visible, but quiet keep to self, flat affect, depressed mood. Slightly improvement compare to last visit that this provider saw him about 1-2 weeks ago. Ativan started yesterday which seem to have some effects. 04/25/25: Patient slept for 8 hours, compliant with medications, denies side effects. Deny feeling tired on Ativan. Per nursing patient have incident of incontinence of feces yesterday. Therefore Colace and MiraLax and senna has been held. Notes on to hold when has loose stools. Patient denies safety concerns. Reported the same anxiety and depression level. He is more in bed today compared to yesterday but was out for meals. Flat affect, fair eye contact, resting in room. Attended no groups. No changes in terms of mental status. May have ECT on Saturday morning. 04/26: in bed after ECT. flat, withdrawn, slowed, soft. states his mood remains the same as before, no better and no worse. agreeable to increase modafanil to 150 mg. no apparent cognitive or memory deficits. 04/27: perhaps less slowed than recently. hold ativan this afternoon and overnight. NPO past MN. continue bifrontal ECT in the morning. 04/28: faster and more flexible affect. feels he is improving. decrease ativan from 1 mg TID to 0.5 mg TID. otherwise continue current mgmt. 04/29: as for yesterday. continue current mgmt. hold ativan after 3, NPO after MN. ECT in the morning. 04/30: ECT today uneventful. increase modafanil to 200 tomorrow. DC ativan after saturday morning dose. ECT saturday. NPO past MN saturday. otherwise continue current mgmt. 05/01: Continue current management and treatment plan. 05/02: continue current management and treatment plan. 05/03: ECT #9 completed uneventfully this morning. mood remains improved but pt still spending much of the day in bed with depressive facies. continue current mgmt. 05/04: appears a bit brighter, awake this morning. ECT #10 tomorrow. continue current mgmt. 05/05: poorer hygiene, not showering. reporting mood trending down again. open to increasing modafanil. continue current mgmt for now. 05/06: reports he showered and mood somewhat improved. amenable to increase modafanil to 300 mg as of tomorrow. ECT tomorrow. NPO p MN. 05/07: ECT #10 completed. mood trending better, more expressive. continue current mgmt. 05/08: mood improved, affective range improved. continue current mgmt. 05/09: mood remains improved, affect brighter. ECT tomorrow. continue current mgmt. 05/10: ECT #11 completed. Mood continues to improve. Will continue current med regimen/tx plan for now. 05/11: Continue current tx plan, ECT #12 scheduled for tomorrow Patient educated on: ECT Reason for continued inpatient stay Substantial Risk for: med/psych decompensation Time Spent With Patient Time: Total time managing care of this patient today 25____ minutes.
--- NOTE | 2025-05-11 10:52 | HO.MIDLINE ---
Midline Insertion MIDLINE INSERTION Diagnosis: Depression Indication: ECT Pertinent Labs: Reviewed Technique: Using sterile technique including cap and mask, glove and drape, the Right arm was prepped and draped in the usual sterile fashion of full barrier technique with CHG. Using ultrasound guidance, Right Brachial vein access was obtained. 4Fr PowerMidline Non-PASV [id number] was positioned. The procedure was performed in 7. Ultrasound was used to document vein patency and for needle entry. A formal ultrasound picture was recorded. [employer] has released the line for use and it is currently dressed with a StatLock, Tegaderm, and CHG disc. Verification has been performed for blood return and line patency. Arm Circumference: 29Cm Equipment: Bard Power Midline Trimable Non-pasv Catheter Type: [id number] Lot #: [id number]
--- NOTE | 2025-05-11 11:14 | PC.NURSE ---
Pt was called down to procedures to have his mid-line replaced due to occlusion. Pt brought down and the old catheter was removed without difficult and a new one replaced in the right brachial . Pt tolerated the procedure without difficulty. Catheter flushed and dressing applied at approximately 1030 am.
--- NOTE | 2025-05-11 11:55 | HO.REMOVAL_ITS ---
Removal of PICC/Midline Removal of PICC/Midline: Removal of /Midline: 1. Date:05/11/25 2. Reason removed: Not Flushing/working 3. Inserted length: [id number] powerglide ST midline 4. Removed length: intact [id number] powerglide midline 5. A dressing was placed over the site upon removal. No edema or bleeding at the site.
--- NOTE | 2025-05-11 11:55 | HO.REMOVAL ---
Removal of PICC/Midline Removal of PICC/Midline: Removal of /Midline: 1. Date:05/11/25 2. Reason removed: Not Flushing/working 3. Inserted length: [id number] powerglide ST midline 4. Removed length: intact [id number] powerglide midline 5. A dressing was placed over the site upon removal. No edema or bleeding at the site.
[2025-05-11 20:00] VITALS: BP 138/78; PULSE 68; RESP 17; TEMP 36.6; O2SAT 98
[2025-05-12] VITALS (10 sets, daily range): BP systolic 112–170; BP diastolic 74–100; PULSE 60–89; RESP 14–18; TEMP 36.1–36.8; O2SAT 96–100
[2025-05-12] MEDS: 0.9 % Sodium Chloride Flush 10 ML SYRINGE IVFLUSH ×4 (00:45→23:39)
--- NOTE | 2025-05-12 06:37 | PC.NURSE ---
assisted with changing clothing for ECT. purple hue to lower extremities noted
[2025-05-12] MEDS: Lactated Ringers 1,000 ML 50 ML IVCONT (08:45)
--- NOTE | 2025-05-12 08:48 | MHC.SHP ---
Pre-Procedural Eval Section A - 24 Hr Update-Section A only Date of Service: 05/12/25 Changes since office visit: Yes Changes in Medication and Yes Patient answered all questions; No Cold of Flu in the past 2 weeks and No New Medical Problems The patient has been examined within 24 hours of the surgical procedure. The History & Physical has been completed within 30 days and I have reviewed it.: Yes Section B - Complete if H&P > 30 days Chief Complaint: SI depression Allergies: Allergies Allergy/AdvReac Type Severity Reaction Status Date / Time pumpkin Allergy Unknown Unknown Verified 12/24/24 12:26 Plan I have reviewed the history and physical and performed a pertinent physical examination on my patient. No changes have occurred unless specified. Time Spent With Patient Time: Total time managing care of this patient today ____ minutes.
--- NOTE | 2025-05-12 08:53 | HO.ECTPROC ---
ECT Procedure Note Diagnosis/Treatment Date of Service: 05/12/25 Diagnosis: Bipolar disorder Previous ECT Date: 05/07/25 Current Treatment Number: 13 Treatment: Series Interval Clinical Notes: Pt flat but generally no si depressed withdrawn no stable change Time: Total time managing care of this patient today ____ minutes. ECT Settings Device: THYMATRON DGx Electrode Placement: Bitemporal Program/Pulse Width: 0.25 Energy Percent: 100 Seizure Duration By EEG (in seconds): 58 Medications Administration General Anesthetic: Etomidate (18) Muscle Relaxant: Succinylcholine (100) Ancillary Medications Analgesics: Torodol - Pre ECT (30) Miscillaneous Medications: Propofol (30) Airway Management Airway Management: Bag Mask Ventilation Treatment Recommendations No Changes Recommended: No change Notes: last tx for now Pt Tolerated Procedure w/o Issue: Yes
[2025-05-12] MEDS: Aspirin Enteric Coated 81 MG TABLET.DR PO (10:08)
[2025-05-12] MEDS: buPROPion HCl XL 300 MG TAB.ER.24H PO (10:09)
--- NOTE | 2025-05-12 19:22 | HO.PSYCHPN ---
Subjective Subjective Date of Service: 05/12/25 Reason For Visit: SI depression Interim History: case discussed with tx team, chart reviewed. Pt had 12th ECT today. Per my discussion w/ Dr Ward and pt's tx team, pt has had very limited response to ECT and Dr. Ward recommended discontinuing it for now. Pt didn't recall getting ECT today and stated that he gets it Sat/Sat/Sat. I informed him that today is Saturday, which seemed to confuse him. Pt agreed w/ my recommendations to stop ECT for now and start tapering Latuda, given lack of significant benefit at max dose. Pt reports feeling 'okay'. He still hasn't showered in >1 wk. He has attended some grps and has spent time in the milieu. He reports sleeping well. Denies SI. Denies AHVH Mental Status Exam Mental Status Exam Narrative: Appearance: Disheveled. Good eye contact Attitude: Cooperative Speech: Limited spontaneous speech. Answers questions appropriately with some latency Motor activity: Calm and without any tics, tremors or dyskinesias. Steady gait Mood: as noted above Affect: blunted Thought process: Slow, possible thought blocking Thought content: as noted above Perception: Denies AH/VH and does not appear to respond to internal stimuli Insight: fair Judgment: fair Diagnostics Vital Signs (24Hr): Vital Signs - 24 hr 05/11/25 20:00 05/12/25 06:00 05/12/25 07:51 Temperature 97.8 F 97.8 F 97.4 F Pulse Rate 68 65 73 Respiratory Rate 17 17 18 Blood Pressure 138/78 121/86 119/82 Pulse Oximetry 98 100 99 Oxygen Delivery Method Room Air Room Air Oxygen Flow Rate 05/12/25 08:04 05/12/25 09:12 05/12/25 09:17 Temperature 97.0 F Pulse Rate 69 77 81 Respiratory Rate 16 14 16 Blood Pressure 124/78 147/74 H 112/84 Pulse Oximetry 96 97 99 Oxygen Delivery Method Room Air Nasal Cannula with ETCO2 Nasal Cannula with ETCO2 Oxygen Flow Rate 2 2 05/12/25 09:22 05/12/25 09:27 05/12/25 09:42 Temperature 98.3 F Pulse Rate 88 89 83 Respiratory Rate 16 16 16 Blood Pressure 170/100 H 117/95 H 161/96 H Pulse Oximetry 97 98 97 Oxygen Delivery Method Room Air Room Air Room Air Oxygen Flow Rate 05/12/25 16:15 Temperature 98.1 F Pulse Rate 60 Respiratory Rate Blood Pressure 142/85 H Pulse Oximetry 96 Oxygen Delivery Method Oxygen Flow Rate BMI result Body Mass Index 32.2 Labs 04/23/25 10:35 04/23/25 10:35 Imaging Radiology Impressions: ITS Impressions Head CT 04/06/25 13:54 IMPRESSION: No acute intracranial hemorrhage. Bifrontal bitemporal lobes atrophy. Electronically signed by: Roque Guillen MD 04/06/2025 02:15 PM EDT RP Medications Medications Current Medications Acetaminophen (Acetaminophen 325 Mg Tablet) 650 mg PO Q6H PRN PRN Reason: Headache/Pain, Scale 1-10 Last Admin: 04/14/25 20:25 Dose: 650 mg Al Hydroxide/Mg Hydroxide (Magnesium Hydrox/Alum Hydrox 30 Ml Oral.Susp) 30 ml PO Q6H PRN PRN Reason: Heartburn/Nausea Aspirin (Aspirin Enteric Coated 81 Mg Tablet.) 81 mg PO DAILY [facility] Last Admin: 05/12/25 10:08 Dose: 81 mg Atorvastatin Calcium (Atorvastatin Calcium 20 Mg Tablet) 20 mg PO BEDTIME [facility] Last Admin: 05/11/25 21:12 Dose: 20 mg Bisacodyl (Bisacodyl 5 Mg Tablet.) 10 mg PO DAILY PRN PRN Reason: severe Constipation Last Admin: 04/20/25 08:57 Dose: 10 mg Bupropion HCl (Bupropion Hcl Xl 300 Mg Tab.Er.24h) 300 mg PO DAILY [facility] Last Admin: 05/12/25 10:09 Dose: 300 mg Docusate Sodium (Docusate Sodium 100 Mg Capsule) 100 mg PO BID PRN PRN Reason: constipation Hydroxyzine HCl (Hydroxyzine Hcl 25 Mg Tablet) 25 mg PO Q6H PRN PRN Reason: mild anxiety Last Admin: 03/26/25 23:24 Dose: 25 mg Lurasidone HCl (Lurasidone Hcl 40 Mg Tablet) 40 mg PO DAILY@1700 [facility] Last Admin: 05/12/25 18:09 Dose: 40 mg Magnesium Hydroxide (Milk Of Magnesia 30 Ml Oral.Susp) 30 ml PO DAILY PRN PRN Reason: Constipation Last Admin: 04/17/25 10:24 Dose: 30 ml Modafinil (Modafinil 100 Mg Tablet) 300 mg PO DAILY [facility] Last Admin: 05/12/25 10:08 Dose: 300 mg Naloxone HCl (Naloxone Hcl 0.4 Mg/Ml Vial) 0.04 mg IVPUSH Q5M PRN PRN Reason: Excessive sedation or RR < 8 Naloxone HCl (Naloxone Hcl 0.4 Mg/Ml Vial) 0.04 mg IVPUSH Q5M PRN PRN Reason: Excessive sedation or RR < 8 Nicotine (Nicotine 21 Mg Patch.Td24) 21 mg TRANSDERMA DAILY PRN PRN Reason: nicotine craving Nicotine Polacrilex (Nicotine Polacrilex 2 Mg Gum) 2 mg BUCCAL Q2H PRN PRN Reason: Nicotine Cravings Olanzapine (Olanzapine 5 Mg Tablet) 5 mg PO BID PRN PRN Reason: agitation Ondansetron HCl (Ondansetron Odt 8 Mg Tab.Rapdis) 8 mg TRANSLINGU Q8H PRN PRN Reason: Nausea and Vomiting Polyethylene Glycol (Polyethylene Glycol 3350 17 Gm Powd.Pack) 17 gm PO DAILY PRN PRN Reason: constipation Senna (Sennosides 8.6 Mg Tablet) 17.2 mg PO BEDTIME PRN PRN Reason: Constipation Sodium Chloride (0.9 % Sodium Chloride Flush 10 Ml Syringe) 10 ml IVFLUSH QSHIFT [facility] Last Admin: 05/12/25 16:36 Dose: 10 ml Trazodone HCl (Trazodone Hcl 50 Mg Tablet) 50 mg PO BEDTIME MRX1 PRN PRN Reason: Insomnia Last Admin: 04/05/25 23:14 Dose: 50 mg Allergies Allergies Allergy/AdvReac Type Severity Reaction Status Date / Time pumpkin Allergy Unknown Unknown Verified 12/24/24 12:26 Assessment & Plan Assessment & Plan (1) CKD (chronic kidney disease): Qualifiers: Chronic kidney disease stage: stage 3 (moderate) Chronic kidney disease stage 3 subtype: stage 3a (GFR 45-59) Qualified Code(s): N18.31 - Chronic kidney disease, stage 3a Status: Acute Code(s): N18.9 - Chronic kidney disease, unspecified Assessment and Plan: Patient likely has some mild chronic kidney disease, 3a no proteinuria on most recent UA patient has mild renal disease, given medical history has low risk of developing ESRD requiring dialysis- ok for midline placement. Discussed with Dr Moody. (2) Depression: Qualifiers: Depression Type: unspecified Qualified Code(s): F32.A - Depression, unspecified Status: Acute Code(s): F32.A - Depression, unspecified (3) CVA (cerebral vascular accident): Status: Acute Code(s): I63.9 - Cerebral infarction, unspecified Plan 03/27: feels latuda 120 has been helpful. however, remains depressed. add wellbutrin XL 150 daily for depression, plan to increase to 300 mg daily in 3 days. may also consider ECT due to lack of improvement despite numerous recent hospitalizations + lethality of suicide attempts + recent self-abnegating behaviors. 03/28: no change in presentation, no requests or complaints. started wellbutrin 150 today. continue current mgmt 03/29/25: Slept well, no issues with appetite. Observed out on the unit, attended groups, engaging. Reports depression and 03/21, denies anxiety. Constricted affect, congruent with mood. Denies safety concerns. Compliant with medications. Denies side effects from Wellbutrin. Continue to encourage groups. 03/30/25: Patient slept for 6 hours, was medication compliant. He attended 2 groups yesterday, however today he is more isolated, in bed a lot more time, declines a couple groups. Reports depressed but no anxiety, flat affect, depressed, but cooperative during one-to-one assessment. He is receptive with the plan of Wellbutrin increased up to 300 mg for depression. Reports passive SI, denies plan or intention. Denies other safety concerns. Encourage patient to go to groups and shower daily. Increase Wellbutrin XL to 300 mg daily for depression. He reported that he has bipolar type II. 03/31: Laying in bed. keeping to self. showered. patient reports feeling depressed ; pt stated, I'm not having a good day. I don't want to do anything . flat affect. denies SI/HI/VH/AH. Per nursing, slept 8 hours. encouraged to attend groups. continue current tx plan. 04/01/25: Patient slept for 8 hours, poor meal intake yesterday but was medication compliant. Denies side effects. When asked about if he has poor appetite as he ate only 50 of breakfast, and 25 for lunch and not eating dinner, he said because I did not do the menu, so I got what I do not like . He shower yesterday, continued to reports depression 03/21. Denied anxiety. He does not feel any difference from Wellbutrin 150 when and when it was increased up to 300 mg. Denies SI/SIB/HI/AVH, isolative self, he plans to attend groups today. This provider spoke with patient in length regarding medication trials. Per his report, has been trying so many antidepressants they just do not work, and continued to be depressed. Some of them are Zoloft, Paxil, Effexor, Celexa, Prozac, Cymbalta, Lexapro. He also having history of taking Zyprexa more than 20 years ago due to hearing voices. Then the voices was calm. He never has a take it again after. History of Abilify but not sure if it is working as he can not recall. Regarding ADLs: He said that he had food at the [facility] twice a day, but he is not showering for many days despite the fact that staff asked him to do so I just do not care about being clean . Reports very low energy, low motivation, been increased suicidal thoughts and depression. He used to love music and reading but not interested in doing anything like that anymore. Reported that he had gastric sleeve surgery back in August 2023 which he lost 230 lb. He weight 447 lb prior to the surgery. He identified that after the surgery he has been more depressed slowly over months. There was a time that he wanted to starve myself so I can when asked is that you that he has stopped eating at home. He also identified that he feel more depressed after surgery as he is not able to over eating like he did before. Family mental health illnesses: Reports that who both of his parents was depressed. Mom 11 years ago. 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 History of ECTs: Reports he had history of ECTs in 2010 when he was at in [facility].He felt worse after the treatment everything seems like a dream . He clarified that immediately after the treatment he feel that way which could be a side effects of ECT but not permanent. Educate patient on possible side effects ECTs. Patient denies having seizure during ECTs treatment, no seizure history no cardiac conditions/disease history. Reports history of hypertension, but not anymore. He also has been admitted to different hospitals for psychiatric admissions in the past couple of months. Reports staying at [facility] in December for a month. New hospital in the area names [facility]) in October for another month. Per email from his OP team- clinical director at [facility], they also express concerns of patient's conditions. It is noted that their concerns are very consistent with patient' report here on the unit. He also has been admitted to different hospitals for psychiatric admissions in the past couple of months. Reports staying at [facility] in December for a month. [facility] hospital in the area names [facility]) in October for another month. Per email from his OP team- clinical director at [facility], they also express concerns of patient's conditions. It is noted that their concerns are very consistent with patient' report here on the unit. Alfredito has been in and out on inpatient level of care since October of this year, I believe every month, for a majority of the time. He was recently discharged from [facility] after a 1 month stay and within two hours of returning home wanted to return to the hospital, saying he was unwell, and within one day was sectioned by [facility], which is how he ended up with you now. He has been coming home and intentionally starving himself, even not eating for up to 1 week. We have known Alfredito for years and since this started in October, we have seen no significant improvement in his mental health or a return to baseline. In fact, we are observing his case as consistent with failure to thrive. We have been asking for him to be inpatient at [facility] or with you at [facility] for some time in order for him to be potentially considered for ECT level of treatment, if deemed appropriate. Multiple medication trials failture to target depressive symptoms. He will be a good candidate to get trial ECT treatment in combination with current medication regimens. Patient also agrees with the plan. We would start the treatment as soon as possible. Will discuss the case with in house psychiatrist-Dr. Ward to prepare for ECT treatment. Hope to start early next week. 04/02: Laying in bed. keeping to self. Patient continues to report feeling depressed; pt stated, I feel about the same. I spoke with the other provider and agreed to do ECT . He reports sleeping well. denies SI/HI/VH/AH. Encouraged to attend groups and shower. Continue current tx plan. 04/03: no changes- just started wellbutrin 04/04: no changes 04/05/25: report anxiety a 2-310 but still 8/10 for depression. No change since started Wellbutrin. He agrees to get Wellbutrin up to 450mg daily for depression. Isolative in room, staring up to the ceiling. Discuss with patient of option to start on Intuniv for severe depression. Patient declines it at this current time but agree to see Welbutrin increased would be helpful. He agrees with ECT. Encourage groups, he says he was at art group out to dinning area but there are too much so he went back to his room. Report not many groups offered over the weekends. 04/06/25: Patient slept for 6 hours, have a sleep study done last night. Reported that he did not sleep well. Appetite is okay. Mood is depressed 03/21, denies anxiety today. Denies suicidal thoughts, but reports he has passive SI yesterday intrusive, just do not Wanna live anymore . Denies hallucinations. Address with patient of why he having bowel movement in the shower. He said it is just one episode. Reports he feel constipated. Agree with Colace. He also inform regarding the ECT which was approved by the insurance. He compliant with medication, however reports he has not feeling any difference in terms of depression at since started on Wellbutrin. Encourage groups attendance. Observe him later on during the day reading at a table in dining area. Colace 100mg BID for constipation. ECT consult placed: Patient may be seen by tomorrow by Dr. Ward. Procedure done preparing for the ECT: Head CT scan negative, EKG normal sinus rhythm, Incomplete right bundle branch block. Borderline ECG_ no change when compare to previous EKG. Unremarkable CBC with diff. 04/07/25: Per hospitalist note: ECT risk stratification Patient without previous problems with anesthesia, has previously undergone ECT RCRI 0 points, no further cardiac workup or treatment indicated at this time EKG showed QT interval WNL, no evidence of ischemic changes Based on stated PMH, HPI, and physical exam, there are no apparent medical contraindications to the planned procedure. Patient is complaining of pelvic discomfort and constipation. We will add therapy with Scott ParraaLax and obtain urinalysis to assess for urinary tract infection. Continue treatment with atorvastatin and aspirin for history of stroke and hyperlipidemia. 04/07/25: Patient compliant with medication, reports due to the pain abdominal, he could not sleep well last night. Continued to reports depressions 8/10, anxiety 4/10 today related to the pain. Denies suicidal thoughts or voices, isolated. Shower yesterday. Review with patient test need to be done prior to having ECT. Patient met with Dr. Ward and hospitalist for ECT clearance. Due to the pain, constipated, more laxative ordered today. Also UA other by hospitalist to rule out any infection. He is flat, low energy, low motivation, withdrawal, in room mostly, but come out to other rooms to talk to the providers 04/08/25: Patient slept for 8 hours, compliant with medications, denies side effect. Met with him in his room, reported that he slept better last night, having good bowel movement, denies diarrhea is. Informed him regarding the labs work/and UA that was negative to rule out UTI. Denies pain. Explained to patient regarding pre ECT procedures/test to prepare for the day that he going to start. We will start ECT on Saturday. Per Dr. Ward, we will taper down on Latuda, start him on Modafinil low dose to help with severe depression. Continued to reports moderate to severe depression. Denies suicidal thoughts or hallucinations. 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 He denied any significant or excessive drug exposure. I do not find any focal lesion, acute or chronic, suggestive of stroke. There was no contraindication to treatment with ECT. Otherwise treatment of this condition is supportive, symptomatic and conservative Taper down on Latuda from 120 down to 100 mg daily at 17:00 for mood. Start on Modefinil 100ng daily for severe depression, low energy, poor concentration, poor motivation. ECT will be scheduled next week on Saturday. We will received treatment for Saturday/Saturday and Saturday. 04/09/25: Patient denies pain, normal bowel movement, slept well and compliant with medications. Denies side effects. Denies suicidal thoughts or hallucinations but reports mild on anxiety and moderate to severe depression. Patient appeared to be disheveled. Encourage patient to be out of bed in attended to groups included OT groups which observe he is visible in day room after the conversation. The OT will do the [place] for pre ECT next week on Saturday prior the ECT. He started modafinil 50 mg this morning. Indication and side effects explained to patient. Patient is receptive with the plan. Correction: Modefinill 50mg daily. MOCA scheduled next week prior to ECT. 04/10:Laying in bed most of morning. Patient continues to report feeling depressed. He reports looking forward to ECT; pt stated, I think it will be a positive step to get ECT . denies SI/HI/VH/AH. Encouraged to get out of bed. Continue tx plan 04/11: Per nursing, pt did not get out of bed yesterday. Observed laying in bed this morning; encouraged to attend groups and shower. Patient continues to report feeling depressed. denies SI/HI/VH/AH. Encouraged to get out of bed. Continue tx plan. 04/12: continue current tx plan 04/13: stably depressed. PMR. start ECT tomorrow, otherwise continue current mgmt. NPO past MN. 04/14/25: got his first ECT treatment this afternoon. Patient slept for 6 hours, was medication compliant. However, this morning due to the delay of the ECT treatment, he was not happy about the delay into the afternoon. He appeared to be frustrated, irritable, and not cooperative with this provider I do not want to talk to anyone . I am done talking . I do not care when asked his last bowel movement. Per nursing, patient denies suicidal thoughts, other safety concerns. Reports he has no bowel movement x4 days. Medication this morning was held until after the ECT. He also was given citrate magnesium x1. Pending effect. 04/15: made bowel movement. ECT #2 tomorrow. no change in mood or presentation as of today. T/C increasing modafanil to 200 mg sometime next week. 04/16: completed ECT without incident. no FLOWERS today. no change in presentation otherwise. continue current mgmt. ECT #3 saturday. 04/17/2025: No changes. ECT # 3 Saturday04/19/202504/18: no changes 04/19: completed ECT #3 today. no FLOWERS, no change in presentation, no change in mood. continue current mgmt. T/C modafanil increase. 04/20: mood starting to improve. laughed, affect brighter and more flexible. ECT tomorrow, NPO after midnight. continue current mgmt otherwise. 04/21: irritable at afternoon ECT. short today. continue current mgmt. 04/22: not irritable, appears depressed, says mood is unchanged. ECT tomorrow. continue current mgmt. strongly consider increase in modafanil dosing. 04/23/2025: Patient seen ECT completed bilaterally. Patient with markedly poor ADLs almost catatonic like allowing himself to be covered in feces not showering or caring for himself. Change ECT to 0.25 would follow-up on response to bilateral treatment if to withdrawn would may be secondary to bilateral and might consider return to right unilateral. Wellbutrin lowered to 300 mg modafinil was started at 100 mg can consider increase to 150 mg targeting apathy lethargy. Patient started on lorazepam 1 mg p.o. t.i.d. had test doses and seemed significantly improved with more fluid speech and increase range of affect hold lorazepam night prior to ECT 04/24/25: Patient slept for 8 hours, no appetite issues. Denies SI/SIB/HI/AVH. Report anxiety a 2/10 and anxiety an 8/10 which he says he does not feel much different yet from ECT. He denies short term memory. He denies FLOWERS or tireness now but says shortly after ECT he had FLOWERS from yesterday which has been gone. He reports normal BM which laxative was held yesterday. Observed patient spent couple hours in dinning areas, eating out in activity room and spent time watching TV. Nursing also reports patient attended group in the art room as well. He also showered yesterday. He is visible, but quiet keep to self, flat affect, depressed mood. Slightly improvement compare to last visit that this provider saw him about 1-2 weeks ago. Ativan started yesterday which seem to have some effects. 04/25/25: Patient slept for 8 hours, compliant with medications, denies side effects. Deny feeling tired on Ativan. Per nursing patient have incident of incontinence of feces yesterday. Therefore Colace and MiraLax and senna has been held. Notes on to hold when has loose stools. Patient denies safety concerns. Reported the same anxiety and depression level. He is more in bed today compared to yesterday but was out for meals. Flat affect, fair eye contact, resting in room. Attended no groups. No changes in terms of mental status. May have ECT on Saturday morning. 04/26: in bed after ECT. flat, withdrawn, slowed, soft. states his mood remains the same as before, no better and no worse. agreeable to increase modafanil to 150 mg. no apparent cognitive or memory deficits. 04/27: perhaps less slowed than recently. hold ativan this afternoon and overnight. NPO past MN. continue bifrontal ECT in the morning. 04/28: faster and more flexible affect. feels he is improving. decrease ativan from 1 mg TID to 0.5 mg TID. otherwise continue current mgmt. 04/29: as for yesterday. continue current mgmt. hold ativan after 3, NPO after MN. ECT in the morning. 04/30: ECT today uneventful. increase modafanil to 200 tomorrow. DC ativan after saturday morning dose. ECT saturday. NPO past MN saturday. otherwise continue current mgmt. 05/01: Continue current management and treatment plan. 05/02: continue current management and treatment plan. 05/03: ECT #9 completed uneventfully this morning. mood remains improved but pt still spending much of the day in bed with depressive facies. continue current mgmt. 05/04: appears a bit brighter, awake this morning. ECT #10 tomorrow. continue current mgmt. 05/05: poorer hygiene, not showering. reporting mood trending down again. open to increasing modafanil. continue current mgmt for now. 05/06: reports he showered and mood somewhat improved. amenable to increase modafanil to 300 mg as of tomorrow. ECT tomorrow. NPO p MN. 05/07: ECT #10 completed. mood trending better, more expressive. continue current mgmt. 05/08: mood improved, affective range improved. continue current mgmt. 05/09: mood remains improved, affect brighter. ECT tomorrow. continue current mgmt. 05/10: ECT #11 completed. Mood continues to improve. Will continue current med regimen/tx plan for now. 05/11: ECT #12 scheduled for tomorrow. Otherwise continue current tx plan 05/12: Minimal benefit w/ 12 ECT tx & Latuda 120 mg. Will hold off on further ECT for now and taper off Latuda due to lack of significant benefit. Patient educated on: medication risk/benefits and ECT Informed Consent: understands Reason for continued inpatient stay Substantial Risk for: inability to function and med/psych decompensation Time Spent With Patient Time: Total time managing care of this patient today __45__ minutes.
[2025-05-13 07:00] VITALS: BMI 32.2
[2025-05-13 07:44] VITALS: BP 116/58; PULSE 57; RESP 16; TEMP 36.5; O2SAT 100
[2025-05-13] MEDS: 0.9 % Sodium Chloride Flush 10 ML SYRINGE IVFLUSH ×2 (09:15→16:13)
[2025-05-13] MEDS: buPROPion HCl XL 300 MG TAB.ER.24H PO (09:18)
[2025-05-13] MEDS: Aspirin Enteric Coated 81 MG TABLET.DR PO (09:18)
--- NOTE | 2025-05-13 09:43 | P.PNPSI_ITS ---
Subjective Subjective Date of Service: 05/13/25 Reason For Visit: SI depression Interim History: case discussed with tx team, chart reviewed. 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 transfered to [facility] [place] 10/2024 Jazz Wilson JP [facility] thru [facility] Suicide attempt- walking into traffic (02/2021) o/d requiring MICU admission (06/2020) Ingested Kristy (2008) Prior ECT trial at [facility]-not helpful Prevously engaged w/ [facility] PMTs: None of these helped Vistaril Lamotrigne 200 mg bid trazodone Effexor 75 mg Prozac Zyprexa Risperdal .5 mg Abilify fluoxetine 20 mg trazodone citalopram 40 mg Per pt- never tried lithium Substance use hx: cannabis, cocaine, Percoet, ETOH use d/o, cannabis use d/o Interview with pt today: Pt was lying in bed awake, sat up to speak w/ this inspector automatic typewriter. Reports feeling depressed. After signif period of latency/apparent thought blocking, he rated his depression as 10/10 if 10 is the worst. Reports feeling better earlier in his admission but wasn't able to articulate when his mood worsened. He confirmed that he often has difficulty w/ concentrating. He denies AH/VH. Denies current SI/violent ideation. States that his last ECT was on Saturday (it was yesterday, Sat). He was agreeable w/ taking a break from ECT. Discussed possible lithium trial, which he is wiling to do. He reports that he's eating/sleeping well Med compliant No behavioral issues. Review of Systems Review of Systems Constipation improving. No SOB/Wheezing. No N/V. No FLOWERS or cough. Yes all other systems are reviewed and are negative Mental Status Exam Mental Status Exam Narrative: Appearance: Hair is disheveled but doesn't appear dirty. Not malodorous. Intermittent eye contact. Stares ahead ~50% of the time Attitude: Cooperative Speech: Significant latency. Motor activity: Calm and without any tics, tremors or dyskinesias. Mood: as noted above Affect: flat Thought process: Slow, thought blocking, goal directed Thought content: as noted above Perception: Denies AH/VH and does not appear to respond to internal stimuli Insight: fair Judgment: fair Memory Description: Intact Diagnostics Vital Signs (24Hr): Vital Signs - 24 hr 05/12/25 16:15 05/12/25 19:10 05/13/25 07:44 Temperature 98.1 F 98.1 F 97.7 F Pulse Rate 60 85 57 Respiratory Rate 16 16 Blood Pressure 142/85 H 123/83 116/58 L Pulse Oximetry 96 98 100 Oxygen Delivery Method Room Air Room Air BMI result Body Mass Index 32.2 Labs 04/23/25 10:35 04/23/25 10:35 Imaging Radiology Impressions: ITS Impressions Head CT 04/06/25 13:54 IMPRESSION: No acute intracranial hemorrhage. Bifrontal bitemporal lobes atrophy. Electronically signed by: Roque Guillen MD 04/06/2025 02:15 PM EDT Medications Medications Current Medications Acetaminophen (Acetaminophen 325 Mg Tablet) 650 mg PO Q6H PRN PRN Reason: Headache/Pain, Scale 1-10 Last Admin: 04/14/25 20:25 Dose: 650 mg Al Hydroxide/Mg Hydroxide (Magnesium Hydrox/Alum Hydrox 30 Ml Oral.Susp) 30 ml PO Q6H PRN PRN Reason: Heartburn/Nausea Aspirin (Aspirin Enteric Coated 81 Mg Tablet.) 81 mg PO DAILY [facility] Last Admin: 05/13/25 09:18 Dose: 81 mg Atorvastatin Calcium (Atorvastatin Calcium 20 Mg Tablet) 20 mg PO BEDTIME [facility] Last Admin: 05/12/25 20:55 Dose: 20 mg Bisacodyl (Bisacodyl 5 Mg Tablet.) 10 mg PO DAILY PRN PRN Reason: severe Constipation Last Admin: 04/20/25 08:57 Dose: 10 mg Bupropion HCl (Bupropion Hcl Xl 300 Mg Tab.Er.24h) 300 mg PO DAILY [facility] Last Admin: 05/13/25 09:18 Dose: 300 mg Docusate Sodium (Docusate Sodium 100 Mg Capsule) 100 mg PO BID PRN PRN Reason: constipation Hydroxyzine HCl (Hydroxyzine Hcl 25 Mg Tablet) 25 mg PO Q6H PRN PRN Reason: mild anxiety Last Admin: 03/26/25 23:24 Dose: 25 mg Lurasidone HCl (Lurasidone Hcl 20 Mg Tablet) 20 mg PO DAILY@1700 [facility] Magnesium Hydroxide (Milk Of Magnesia 30 Ml Oral.Susp) 30 ml PO DAILY PRN PRN Reason: Constipation Last Admin: 04/17/25 10:24 Dose: 30 ml Modafinil (Modafinil 100 Mg Tablet) 300 mg PO DAILY [facility] Last Admin: 05/13/25 09:18 Dose: 300 mg Naloxone HCl (Naloxone Hcl 0.4 Mg/Ml Vial) 0.04 mg IVPUSH Q5M PRN PRN Reason: Excessive sedation or RR < 8 Naloxone HCl (Naloxone Hcl 0.4 Mg/Ml Vial) 0.04 mg IVPUSH Q5M PRN PRN Reason: Excessive sedation or RR < 8 Nicotine (Nicotine 21 Mg Patch.Td24) 21 mg TRANSDERMA DAILY PRN PRN Reason: nicotine craving Nicotine Polacrilex (Nicotine Polacrilex 2 Mg Gum) 2 mg BUCCAL Q2H PRN PRN Reason: Nicotine Cravings Olanzapine (Olanzapine 5 Mg Tablet) 5 mg PO BID PRN PRN Reason: agitation Ondansetron HCl (Ondansetron Odt 8 Mg Tab.Rapdis) 8 mg TRANSLINGU Q8H PRN PRN Reason: Nausea and Vomiting Polyethylene Glycol (Polyethylene Glycol 3350 17 Gm Powd.Pack) 17 gm PO DAILY PRN PRN Reason: constipation Senna (Sennosides 8.6 Mg Tablet) 17.2 mg PO BEDTIME PRN PRN Reason: Constipation Sodium Chloride (0.9 % Sodium Chloride Flush 10 Ml Syringe) 10 ml IVFLUSH QSHIFT [facility] Last Admin: 05/13/25 09:15 Dose: 10 ml Trazodone HCl (Trazodone Hcl 50 Mg Tablet) 50 mg PO BEDTIME MRX1 PRN PRN Reason: Insomnia Last Admin: 04/05/25 23:14 Dose: 50 mg Allergies Allergies Allergy/AdvReac Type Severity Reaction Status Date / Time pumpkin Allergy Unknown Unknown Verified 12/24/24 12:26 Assessment & Plan Assessment & Plan (1) CKD (chronic kidney disease): Qualifiers: Chronic kidney disease stage: stage 3 (moderate) Chronic kidney disease stage 3 subtype: stage 3a (GFR 45-59) Qualified Code(s): N18.31 - Chronic kidney disease, stage 3a Status: Acute Code(s): N18.9 - Chronic kidney disease, unspecified Assessment and Plan: Patient likely has some mild chronic kidney disease, 3a no proteinuria on most recent UA patient has mild renal disease, given medical history has low risk of developing ESRD requiring dialysis- ok for midline placement. Discussed with Dr Moody. (2) Depression: Qualifiers: Depression Type: unspecified Qualified Code(s): F32.A - Depression, unspecified Status: Acute Code(s): F32.A - Depression, unspecified (3) CVA (cerebral vascular accident): Status: Acute Code(s): I63.9 - Cerebral infarction, unspecified Plan 03/27: feels latuda 120 has been helpful. however, remains depressed. add wellbutrin XL 150 daily for depression, plan to increase to 300 mg daily in 3 days. may also consider ECT due to lack of improvement despite numerous recent hospitalizations + lethality of suicide attempts + recent self-abnegating behaviors. 03/28: no change in presentation, no requests or complaints. started wellbutrin 150 today. continue current mgmt 03/29/25: Slept well, no issues with appetite. Observed out on the unit, attended groups, engaging. Reports depression and 03/21, denies anxiety. Constricted affect, congruent with mood. Denies safety concerns. Compliant with medications. Denies side effects from Wellbutrin. Continue to encourage groups. 03/30/25: Patient slept for 6 hours, was medication compliant. He attended 2 groups yesterday, however today he is more isolated, in bed a lot more time, declines a couple groups. Reports depressed but no anxiety, flat affect, depressed, but cooperative during one-to-one assessment. He is receptive with the plan of Wellbutrin increased up to 300 mg for depression. Reports passive SI, denies plan or intention. Denies other safety concerns. Encourage patient to go to groups and shower daily. Increase Wellbutrin XL to 300 mg daily for depression. He reported that he has bipolar type II. 03/31: Laying in bed. keeping to self. showered. patient reports feeling depressed ; pt stated, I'm not having a good day. I don't want to do anything . flat affect. denies SI/HI/VH/AH. Per nursing, slept 8 hours. encouraged to attend groups. continue current tx plan. 04/01/25: Patient slept for 8 hours, poor meal intake yesterday but was medication compliant. Denies side effects. When asked about if he has poor appetite as he ate only 50 of breakfast, and 25 for lunch and not eating dinner, he said because I did not do the menu, so I got what I do not like . He shower yesterday, continued to reports depression 03/21. Denied anxiety. He does not feel any difference from Wellbutrin 150 when and when it was increased up to 300 mg. Denies SI/SIB/HI/AVH, isolative self, he plans to attend groups today. This provider spoke with patient in length regarding medication trials. Per his report, has been trying so many antidepressants they just do not work, and continued to be depressed. Some of them are Zoloft, Paxil, Effexor, Celexa, Prozac, Cymbalta, Lexapro. He also having history of taking Zyprexa more than 20 years ago due to hearing voices. Then the voices was calm. He never has a take it again after. History of Abilify but not sure if it is working as he can not recall. Regarding ADLs: He said that he had food at the [facility] twice a day, but he is not showering for many days despite the fact that staff asked him to do so I just do not care about being clean . Reports very low energy, low motivation, been increased suicidal thoughts and depression. He used to love music and reading but not interested in doing anything like that anymore. Reported that he had gastric sleeve surgery back in August 2023 which he lost 230 lb. He weight 447 lb prior to the surgery. He identified that after the surgery he has been more depressed slowly over months. There was a time that he wanted to starve myself so I can when asked is that you that he has stopped eating at home. He also identified that he feel more depressed after surgery as he is not able to over eating like he did before. Family mental health illnesses: Reports that who both of his parents was depressed. Mom 11 years ago. 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 History of ECTs: Reports he had history of ECTs in 2010 when he was at in [facility].He felt worse after the treatment everything seems like a dream . He clarified that immediately after the treatment he feel that way which could be a side effects of ECT but not permanent. Educate patient on possible side effects ECTs. Patient denies having seizure during ECTs treatment, no seizure history no cardiac conditions/disease history. Reports history of hypertension, but not anymore. He also has been admitted to different hospitals for psychiatric admissions in the past couple of months. Reports staying at [facility] in December for a month. [facility] in the area names [facility]) in October for another month. Per email from his OP team- clinical director at [facility], they also express concerns of patient's conditions. It is noted that their concerns are very consistent with patient' report here on the unit. He also has been admitted to different hospitals for psychiatric admissions in the past couple of months. Reports staying at [facility] in December for a month. [facility] in the area names [facility]) in October for another month. Per email from his OP team- clinical director at [facility], they also express concerns of patient's conditions. It is noted that their concerns are very consistent with patient' report here on the unit. Alfredito has been in and out on inpatient level of care since October of this year, I believe every month, for a majority of the time. He was recently discharged from [facility] after a 1 month stay and within two hours of returning home wanted to return to the hospital, saying he was unwell, and within one day was sectioned by [facility], which is how he ended up with you now. He has been coming home and intentionally starving himself, even not eating for up to 1 week. We have known Alfredito for years and since this started in October, we have seen no significant improvement in his mental health or a return to baseline. In fact, we are observing his case as consistent with failure to thrive. We have been asking for him to be inpatient at [facility] or with you at [facility] for some time in order for him to be potentially considered for ECT level of treatment, if deemed appropriate. Multiple medication trials failture to target depressive symptoms. He will be a good candidate to get trial ECT treatment in combination with current medication regimens. Patient also agrees with the plan. We would start the treatment as soon as possible. Will discuss the case with in house psychiatrist-Dr. Ward to prepare for ECT treatment. Hope to start early next week. 04/02: Laying in bed. keeping to self. Patient continues to report feeling depressed; pt stated, I feel about the same. I spoke with the other provider and agreed to do ECT . He reports sleeping well. denies SI/HI/VH/AH. Encouraged to attend groups and shower. Continue current tx plan. 04/03: no changes- just started wellbutrin 04/04: no changes 04/05/25: report anxiety a 2-10/19 but still 03/21 for depression. No change since started Wellbutrin. He agrees to get Wellbutrin up to 450mg daily for depression. Isolative in room, staring up to the ceiling. Discuss with patient of option to start on Intuniv for severe depression. Patient declines it at this current time but agree to see Welbutrin increased would be helpful. He agrees with ECT. Encourage groups, he says he was at art group out to dinning area but there are too much so he went back to his room. Report not many groups offered over the weekends. 04/06/25: Patient slept for 6 hours, have a sleep study done last night. Reported that he did not sleep well. Appetite is okay. Mood is depressed 03/21, denies anxiety today. Denies suicidal thoughts, but reports he has passive SI yesterday intrusive, just do not Wanna live anymore . Denies hallucinations. Address with patient of why he having bowel movement in the shower. He said it is just one episode. Reports he feel constipated. Agree with Colace. He also inform regarding the ECT which was approved by the insurance. He compliant with medication, however reports he has not feeling any difference in terms of depression at since started on Wellbutrin. Encourage groups attendance. Observe him later on during the day reading at a table in dining area. Colace 100mg BID for constipation. ECT consult placed: Patient may be seen by tomorrow by Dr. Ward. Procedure done preparing for the ECT: Head CT scan negative, EKG normal sinus rhythm, Incomplete right bundle branch block. Borderline ECG_ no change when compare to previous EKG. Unremarkable CBC with diff. 04/07/25: Per hospitalist note: ECT risk stratification Patient without previous problems with anesthesia, has previously undergone ECT RCRI 0 points, no further cardiac workup or treatment indicated at this time EKG showed QT interval WNL, no evidence of ischemic changes Based on stated PMH, HPI, and physical exam, there are no apparent medical contraindications to the planned procedure. Patient is complaining of pelvic discomfort and constipation. We will add therapy with Senokot, MiraLax and obtain urinalysis to assess for urinary tract infection. Continue treatment with atorvastatin and aspirin for history of stroke and hyperlipidemia. 04/07/25: Patient compliant with medication, reports due to the pain abdominal, he could not sleep well last night. Continued to reports depressions 8/10, anxiety 4/10 today related to the pain. Denies suicidal thoughts or voices, isolated. Shower yesterday. Review with patient test need to be done prior to having ECT. Patient met with Dr. Ward and hospitalist for ECT clearance. Due to the pain, constipated, more laxative ordered today. Also UA other by hospitalist to rule out any infection. He is flat, low energy, low motivation, withdrawal, in room mostly, but come out to other rooms to talk to the providers 04/08/25: Patient slept for 8 hours, compliant with medications, denies side effect. Met with him in his room, reported that he slept better last night, having good bowel movement, denies diarrhea is. Informed him regarding the labs work/and UA that was negative to rule out UTI. Denies pain. Explained to patient regarding pre ECT procedures/test to prepare for the day that he going to start. We will start ECT on Saturday. Per Dr. Ward, we will taper down on Latuda, start him on Modafinil low dose to help with severe depression. Continued to reports moderate to severe depression. Denies suicidal thoughts or hallucinations. 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 He denied any significant or excessive drug exposure. I do not find any focal lesion, acute or chronic, suggestive of stroke. There was no contraindication to treatment with ECT. Otherwise treatment of this condition is supportive, symptomatic and conservative Taper down on Latuda from 120 down to 100 mg daily at 17:00 for mood. Start on Modefinil 100ng daily for severe depression, low energy, poor concentration, poor motivation. ECT will be scheduled next week on Saturday. We will received treatment for Saturday/Saturday and Saturday. 04/09/25: Patient denies pain, normal bowel movement, slept well and compliant with medications. Denies side effects. Denies suicidal thoughts or hallucinations but reports mild on anxiety and moderate to severe depression. Patient appeared to be disheveled. Encourage patient to be out of bed in attended to groups included OT groups which observe he is visible in day room after the conversation. The OT will do the [place] for pre ECT next week on Saturday prior the ECT. He started modafinil 50 mg this morning. Indication and side effects explained to patient. Patient is receptive with the plan. Correction: Modefinill 50mg daily. MOCA scheduled next week prior to ECT. 04/10:Laying in bed most of morning. Patient continues to report feeling depressed. He reports looking forward to ECT; pt stated, I think it will be a positive step to get ECT . denies SI/HI/VH/AH. Encouraged to get out of bed. Continue tx plan 04/11: Per nursing, pt did not get out of bed yesterday. Observed laying in bed this morning; encouraged to attend groups and shower. Patient continues to report feeling depressed. denies SI/HI/VH/AH. Encouraged to get out of bed. Continue tx plan. 04/12: continue current tx plan 04/13: stably depressed. PMR. start ECT tomorrow, otherwise continue current mgmt. NPO past MN. 04/14/25: got his first ECT treatment this afternoon. Patient slept for 6 hours, was medication compliant. However, this morning due to the delay of the ECT treatment, he was not happy about the delay into the afternoon. He appeared to be frustrated, irritable, and not cooperative with this provider I do not want to talk to anyone . I am done talking . I do not care when asked his last bowel movement. Per nursing, patient denies suicidal thoughts, other safety concerns. Reports he has no bowel movement x4 days. Medication this morning was held until after the ECT. He also was given citrate magnesium x1. Pending effect. 04/15: made bowel movement. ECT #2 tomorrow. no change in mood or presentation as of today. T/C increasing modafanil to 200 mg sometime next week. 04/16: completed ECT without incident. no FLOWERS today. no change in presentation otherwise. continue current mgmt. ECT #3 saturday. 04/17/2025: No changes. ECT # 3 Saturday04/19/202504/18: no changes 04/19: completed ECT #3 today. no FLOWERS, no change in presentation, no change in mood. continue current mgmt. T/C modafanil increase. 04/20: mood starting to improve. laughed, affect brighter and more flexible. ECT tomorrow, NPO after midnight. continue current mgmt otherwise. 04/21: irritable at afternoon ECT. short today. continue current mgmt. 04/22: not irritable, appears depressed, says mood is unchanged. ECT tomorrow. continue current mgmt. strongly consider increase in modafanil dosing. 04/23/2025: Patient seen ECT completed bilaterally. Patient with markedly poor ADLs almost catatonic like allowing himself to be covered in feces not showering or caring for himself. Change ECT to 0.25 would follow-up on response to bilateral treatment if to withdrawn would may be secondary to bilateral and might consider return to right unilateral. Wellbutrin lowered to 300 mg modafinil was started at 100 mg can consider increase to 150 mg targeting apathy lethargy. Patient started on lorazepam 1 mg p.o. t.i.d. had test doses and seemed significantly improved with more fluid speech and increase range of affect hold lorazepam night prior to ECT 04/24/25: Patient slept for 8 hours, no appetite issues. Denies SI/SIB/HI/AVH. Report anxiety a 2/10 and anxiety an 8/10 which he says he does not feel much different yet from ECT. He denies short term memory. He denies FLOWERS or tireness now but says shortly after ECT he had FLOWERS from yesterday which has been gone. He reports normal BM which laxative was held yesterday. Observed patient spent couple hours in dinning areas, eating out in activity room and spent time watching TV. Nursing also reports patient attended group in the art room as well. He also showered yesterday. He is visible, but quiet keep to self, flat affect, depressed mood. Slightly improvement compare to last visit that this provider saw him about 1-2 weeks ago. Ativan started yesterday which seem to have some effects. 04/25/25: Patient slept for 8 hours, compliant with medications, denies side effects. Deny feeling tired on Ativan. Per nursing patient have incident of incontinence of feces yesterday. Therefore Colace and MiraLax and senna has been held. Notes on to hold when has loose stools. Patient denies safety concerns. Reported the same anxiety and depression level. He is more in bed today compared to yesterday but was out for meals. Flat affect, fair eye contact, resting in room. Attended no groups. No changes in terms of mental status. May have ECT on Saturday morning. 04/26: in bed after ECT. flat, withdrawn, slowed, soft. states his mood remains the same as before, no better and no worse. agreeable to increase modafanil to 150 mg. no apparent cognitive or memory deficits. 04/27: perhaps less slowed than recently. hold ativan this afternoon and overnight. NPO past MN. continue bifrontal ECT in the morning. 04/28: faster and more flexible affect. feels he is improving. decrease ativan from 1 mg TID to 0.5 mg TID. otherwise continue current mgmt. 04/29: as for yesterday. continue current mgmt. hold ativan after 3, NPO after MN. ECT in the morning. 04/30: ECT today uneventful. increase modafanil to 200 tomorrow. DC ativan after saturday morning dose. ECT saturday. NPO past MN saturday. otherwise continue current mgmt. 05/01: Continue current management and treatment plan. 05/02: continue current management and treatment plan. 05/03: ECT #9 completed uneventfully this morning. mood remains improved but pt still spending much of the day in bed with depressive facies. continue current mgmt. 05/04: appears a bit brighter, awake this morning. ECT #10 tomorrow. continue current mgmt. 05/05: poorer hygiene, not showering. reporting mood trending down again. open to increasing modafanil. continue current mgmt for now. 05/06: reports he showered and mood somewhat improved. amenable to increase modafanil to 300 mg as of tomorrow. ECT tomorrow. NPO p MN. 05/07: ECT #10 completed. mood trending better, more expressive. continue current mgmt. 05/08: mood improved, affective range improved. continue current mgmt. 05/09: mood remains improved, affect brighter. ECT tomorrow. continue current mgmt. 05/10: ECT #11 completed. Mood continues to improve. Will continue current med regimen/tx plan for now. 05/11: ECT #12 scheduled for tomorrow. Otherwise continue current tx plan 05/12: Minimal benefit w/ 12 ECT tx & Latuda 120 mg. Will hold off on further ECT for now and taper off Latuda due to lack of significant benefit. 05/13: Pt seems to have regressed somewhat based on his self-report and my review of his chart. 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 Untreated sleep apnea is less likely to contribute to pt's presentation based on sleep study from Mar 2025 following signifiant WL s/p gastric sleeve. Per [facility] neuro consult notes, pt has had memory impairment since the CVA in 2019. Reason for continued inpatient stay Substantial Risk for: inability to function and med/psych decompensation Time Spent With Patient Time: Total time managing care of this patient today __60__ minutes.
[2025-05-13 19:17] VITALS: BP 108/73; PULSE 73; RESP 18; TEMP 36.7; O2SAT 99
[2025-05-14] MEDS: 0.9 % Sodium Chloride Flush 10 ML SYRINGE IVFLUSH ×3 (00:15→17:53)
[2025-05-14 07:05] VITALS: BP 133/83; PULSE 67; RESP 18; TEMP 36.4; O2SAT 99
[2025-05-14] MEDS: Aspirin Enteric Coated 81 MG TABLET.DR PO (09:03)
[2025-05-14 09:45] VITALS: BP 125/74; PULSE 71; RESP 18; TEMP 36.7; O2SAT 100
--- NOTE | 2025-05-14 09:48 | HO.PSYCHPN ---
Subjective Subjective Date of Service: 05/14/25 Reason For Visit: SI depression Subjective Notes: Conditional Voluntary Interim History: case discussed with tx team, chart reviewed. Per pt's nurse, pt had a controlled fall today after standing up after group. He didn't injure himself. Pt denies any concerns related to the fall. He reports feeling 'okay'. No SI reported. Slept 10 hrs. I reviewed the tx plan, including the switch to bupropion IR to optimize absorption in setting of prior gastric sleeve surg. Med adherent Mental Status Exam Mental Status Exam Narrative: Sitting in dayroom in front of TV turned off. Hair is disheveled, wearing hospital thai, good eye contact. Cooperative. Paucity of speech, otherwise wnl. Calm motor activity, without tics, tremors or dyskinesias. Mood is 'okay'. Affect is blunted. Thought process is slow, some thought blocking, goal directed. Does not endorse SI or violent ideation. Does not endorse AH/VH and does not appear to respond to internal stim. Insight/judgment fair Diagnostics Vital Signs (24Hr): Vital Signs - 24 hr 05/13/25 19:17 05/14/25 07:05 Temperature 98.1 F 97.5 F Pulse Rate 73 67 Respiratory Rate 18 18 Blood Pressure 108/73 133/83 Pulse Oximetry 99 99 Oxygen Delivery Method Room Air Room Air BMI result Body Mass Index 32.2 Labs 04/23/25 10:35 04/23/25 10:35 Imaging Radiology Impressions: ITS Impressions Head CT 04/06/25 13:54 IMPRESSION: No acute intracranial hemorrhage. Bifrontal bitemporal lobes atrophy. Electronically signed by: Roque Guillen MD 04/06/2025 02:15 PM EDT Medications Medications Current Medications Acetaminophen (Acetaminophen 325 Mg Tablet) 650 mg PO Q6H PRN PRN Reason: Headache/Pain, Scale 1-10 Last Admin: 04/14/25 20:25 Dose: 650 mg Al Hydroxide/Mg Hydroxide (Magnesium Hydrox/Alum Hydrox 30 Ml Oral.Susp) 30 ml PO Q6H PRN PRN Reason: Heartburn/Nausea Aspirin (Aspirin Enteric Coated 81 Mg Tablet.) 81 mg PO DAILY JENNIFER Last Admin: 05/14/25 09:03 Dose: 81 mg Atorvastatin Calcium (Atorvastatin Calcium 20 Mg Tablet) 20 mg PO BEDTIME [facility] Last Admin: 05/13/25 20:14 Dose: 20 mg Bisacodyl (Bisacodyl 5 Mg Tablet.Dr) 10 mg PO DAILY PRN PRN Reason: severe Constipation Last Admin: 04/20/25 08:57 Dose: 10 mg Bupropion HCl (Bupropion Hcl 75 Mg Tablet) 75 mg PO BID@0900,1700 [facility] Last Admin: 05/14/25 09:03 Dose: 75 mg Docusate Sodium (Docusate Sodium 100 Mg Capsule) 100 mg PO BID PRN PRN Reason: constipation Hydroxyzine HCl (Hydroxyzine Hcl 25 Mg Tablet) 25 mg PO Q6H PRN PRN Reason: mild anxiety Last Admin: 03/26/25 23:24 Dose: 25 mg Lurasidone HCl (Lurasidone Hcl 20 Mg Tablet) 20 mg PO DAILY@1700 [facility] Last Admin: 05/13/25 17:14 Dose: 20 mg Magnesium Hydroxide (Milk Of Magnesia 30 Ml Oral.Susp) 30 ml PO DAILY PRN PRN Reason: Constipation Last Admin: 04/17/25 10:24 Dose: 30 ml Modafinil (Modafinil 100 Mg Tablet) 300 mg PO DAILY [facility] Last Admin: 05/14/25 09:03 Dose: 300 mg Naloxone HCl (Naloxone Hcl 0.4 Mg/Ml Vial) 0.04 mg IVPUSH Q5M PRN PRN Reason: Excessive sedation or RR < 8 Naloxone HCl (Naloxone Hcl 0.4 Mg/Ml Vial) 0.04 mg IVPUSH Q5M PRN PRN Reason: Excessive sedation or RR < 8 Nicotine (Nicotine 21 Mg Patch.Td24) 21 mg TRANSDERMA DAILY PRN PRN Reason: nicotine craving Nicotine Polacrilex (Nicotine Polacrilex 2 Mg Gum) 2 mg BUCCAL Q2H PRN PRN Reason: Nicotine Cravings Olanzapine (Olanzapine 5 Mg Tablet) 5 mg PO BID PRN PRN Reason: agitation Ondansetron HCl (Ondansetron Odt 8 Mg Tab.Rapdis) 8 mg TRANSLINGU Q8H PRN PRN Reason: Nausea and Vomiting Polyethylene Glycol (Polyethylene Glycol 3350 17 Gm Powd.Pack) 17 gm PO DAILY PRN PRN Reason: constipation Senna (Sennosides 8.6 Mg Tablet) 17.2 mg PO BEDTIME PRN PRN Reason: Constipation Sodium Chloride (0.9 % Sodium Chloride Flush 10 Ml Syringe) 10 ml IVFLUSH QSHIFT JENNIFER Last Admin: 05/14/25 09:00 Dose: 10 ml Trazodone HCl (Trazodone Hcl 50 Mg Tablet) 50 mg PO BEDTIME MRX1 PRN PRN Reason: Insomnia Last Admin: 04/05/25 23:14 Dose: 50 mg Allergies Allergies Allergy/AdvReac Type Severity Reaction Status Date / Time pumpkin Allergy Unknown Unknown Verified 12/24/24 12:26 Assessment & Plan Assessment & Plan (1) Depression: Qualifiers: Depression Type: unspecified Qualified Code(s): F32.A - Depression, unspecified Status: Acute Code(s): F32.A - Depression, unspecified (2) CVA (cerebral vascular accident): Status: Acute Code(s): I63.9 - Cerebral infarction, unspecified (3) CKD (chronic kidney disease): Qualifiers: Chronic kidney disease stage: stage 3 (moderate) Chronic kidney disease stage 3 subtype: stage 3a (GFR 45-59) Qualified Code(s): N18.31 - Chronic kidney disease, stage 3a Status: Acute Code(s): N18.9 - Chronic kidney disease, unspecified Assessment and Plan: Patient likely has some mild chronic kidney disease, 3a no proteinuria on most recent UA patient has mild renal disease, given medical history has low risk of developing ESRD requiring dialysis- ok for midline placement. Discussed with Dr Moody. Plan 03/27: feels latuda 120 has been helpful. however, remains depressed. add wellbutrin XL 150 daily for depression, plan to increase to 300 mg daily in 3 days. may also consider ECT due to lack of improvement despite numerous recent hospitalizations + lethality of suicide attempts + recent self-abnegating behaviors. 03/28: no change in presentation, no requests or complaints. started wellbutrin 150 today. continue current mgmt 03/29/25: Slept well, no issues with appetite. Observed out on the unit, attended groups, engaging. Reports depression and 03/21, denies anxiety. Constricted affect, congruent with mood. Denies safety concerns. Compliant with medications. Denies side effects from Wellbutrin. Continue to encourage groups. 03/30/25: Patient slept for 6 hours, was medication compliant. He attended 2 groups yesterday, however today he is more isolated, in bed a lot more time, declines a couple groups. Reports depressed but no anxiety, flat affect, depressed, but cooperative during one-to-one assessment. He is receptive with the plan of Wellbutrin increased up to 300 mg for depression. Reports passive SI, denies plan or intention. Denies other safety concerns. Encourage patient to go to groups and shower daily. Increase Wellbutrin XL to 300 mg daily for depression. He reported that he has bipolar type II. 03/31: Laying in bed. keeping to self. showered. patient reports feeling depressed ; pt stated, I'm not having a good day. I don't want to do anything . flat affect. denies SI/HI/VH/AH. Per nursing, slept 8 hours. encouraged to attend groups. continue current tx plan. 04/01/25: Patient slept for 8 hours, poor meal intake yesterday but was medication compliant. Denies side effects. When asked about if he has poor appetite as he ate only 50 of breakfast, and 25 for lunch and not eating dinner, he said because I did not do the menu, so I got what I do not like . He shower yesterday, continued to reports depression 03/21. Denied anxiety. He does not feel any difference from Wellbutrin 150 when and when it was increased up to 300 mg. Denies SI/SIB/HI/AVH, isolative self, he plans to attend groups today. This provider spoke with patient in length regarding medication trials. Per his report, has been trying so many antidepressants they just do not work, and continued to be depressed. Some of them are Zoloft, Paxil, Effexor, Celexa, Prozac, Cymbalta, Lexapro. He also having history of taking Zyprexa more than 20 years ago due to hearing voices. Then the voices was calm. He never has a take it again after. History of Abilify but not sure if it is working as he can not recall. Regarding ADLs: He said that he had food at the long term twice a day, but he is not showering for many days despite the fact that staff asked him to do so I just do not care about being clean . Reports very low energy, low motivation, been increased suicidal thoughts and depression. He used to love music and reading but not interested in doing anything like that anymore. Reported that he had gastric sleeve surgery back in August 2023 which he lost 230 lb. He weight 447 lb prior to the surgery. He identified that after the surgery he has been more depressed slowly over months. There was a time that he wanted to starve myself so I can when asked is that you that he has stopped eating at home. He also identified that he feel more depressed after surgery as he is not able to over eating like he did before. Family mental health illnesses: Reports that who both of his parents was depressed. Mom 11 years ago. 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 History of ECTs: Reports he had history of ECTs in 2010 when he was at in [facility].He felt worse after the treatment everything seems like a dream . He clarified that immediately after the treatment he feel that way which could be a side effects of ECT but not permanent. Educate patient on possible side effects ECTs. Patient denies having seizure during ECTs treatment, no seizure history no cardiac conditions/disease history. Reports history of hypertension, but not anymore. He also has been admitted to different hospitals for psychiatric admissions in the past couple of months. Reports staying at [facility] in December for a month. [facility] in the area names [facility]) in October for another month. Per email from his OP team- clinical director at [facility], they also express concerns of patient's conditions. It is noted that their concerns are very consistent with patient' report here on the unit. He also has been admitted to different hospitals for psychiatric admissions in the past couple of months. Reports staying at [facility] in December for a month. [facility] in the area names [facility]) in October for another month. Per email from his OP team- clinical director at [facility], they also express concerns of patient's conditions. It is noted that their concerns are very consistent with patient' report here on the unit. Alfredito has been in and out on inpatient level of care since October of this year, I believe every month, for a majority of the time. He was recently discharged from [facility] after a 1 month stay and within two hours of returning home wanted to return to the hospital, saying he was unwell, and within one day was sectioned by [facility], which is how he ended up with you now. He has been coming home and intentionally starving himself, even not eating for up to 1 week. We have known Alfredito for years and since this started in October, we have seen no significant improvement in his mental health or a return to baseline. In fact, we are observing his case as consistent with failure to thrive. We have been asking for him to be inpatient at [facility] or with you at [facility] for some time in order for him to be potentially considered for ECT level of treatment, if deemed appropriate. Multiple medication trials failture to target depressive symptoms. He will be a good candidate to get trial ECT treatment in combination with current medication regimens. Patient also agrees with the plan. We would start the treatment as soon as possible. Will discuss the case with in house psychiatrist-Dr. Ward to prepare for ECT treatment. Hope to start early next week. 04/02: Laying in bed. keeping to self. Patient continues to report feeling depressed; pt stated, I feel about the same. I spoke with the other provider and agreed to do ECT . He reports sleeping well. denies SI/HI/VH/AH. Encouraged to attend groups and shower. Continue current tx plan. 04/03: no changes- just started wellbutrin 04/04: no changes 04/05/25: report anxiety a 2-3/10 but still 8/10 for depression. No change since started Wellbutrin. He agrees to get Wellbutrin up to 450mg daily for depression. Isolative in room, staring up to the ceiling. Discuss with patient of option to start on Intuniv for severe depression. Patient declines it at this current time but agree to see Welbutrin increased would be helpful. He agrees with ECT. Encourage groups, he says he was at art group out to dinning area but there are too much so he went back to his room. Report not many groups offered over the weekends. 04/06/25: Patient slept for 6 hours, have a sleep study done last night. Reported that he did not sleep well. Appetite is okay. Mood is depressed 03/21, denies anxiety today. Denies suicidal thoughts, but reports he has passive SI yesterday intrusive, just do not Wanna live anymore . Denies hallucinations. Address with patient of why he having bowel movement in the shower. He said it is just one episode. Reports he feel constipated. Agree with Colace. He also inform regarding the ECT which was approved by the insurance. He compliant with medication, however reports he has not feeling any difference in terms of depression at since started on Wellbutrin. Encourage groups attendance. Observe him later on during the day reading at a table in dining area. Colace 100mg BID for constipation. ECT consult placed: Patient may be seen by tomorrow by Dr. Ward. Procedure done preparing for the ECT: Head CT scan negative, EKG normal sinus rhythm, Incomplete right bundle branch block. Borderline ECG_ no change when compare to previous EKG. Unremarkable CBC with diff. 04/07/25: Per hospitalist note: ECT risk stratification Patient without previous problems with anesthesia, has previously undergone ECT RCRI 0 points, no further cardiac workup or treatment indicated at this time EKG showed QT interval WNL, no evidence of ischemic changes Based on stated PMH, HPI, and physical exam, there are no apparent medical contraindications to the planned procedure. Patient is complaining of pelvic discomfort and constipation. We will add therapy with Senokot, MiraLax and obtain urinalysis to assess for urinary tract infection. Continue treatment with atorvastatin and aspirin for history of stroke and hyperlipidemia. 04/07/25: Patient compliant with medication, reports due to the pain abdominal, he could not sleep well last night. Continued to reports depressions 8/10, anxiety 4/10 today related to the pain. Denies suicidal thoughts or voices, isolated. Shower yesterday. Review with patient test need to be done prior to having ECT. Patient met with Dr. Ward and hospitalist for ECT clearance. Due to the pain, constipated, more laxative ordered today. Also UA other by hospitalist to rule out any infection. He is flat, low energy, low motivation, withdrawal, in room mostly, but come out to other rooms to talk to the providers 04/08/25: Patient slept for 8 hours, compliant with medications, denies side effect. Met with him in his room, reported that he slept better last night, having good bowel movement, denies diarrhea is. Informed him regarding the labs work/and UA that was negative to rule out UTI. Denies pain. Explained to patient regarding pre ECT procedures/test to prepare for the day that he going to start. We will start ECT on Saturday. Per Dr. Ward, we will taper down on Latuda, start him on Modafinil low dose to help with severe depression. Continued to reports moderate to severe depression. Denies suicidal thoughts or hallucinations. 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 He denied any significant or excessive drug exposure. I do not find any focal lesion, acute or chronic, suggestive of stroke. There was no contraindication to treatment with ECT. Otherwise treatment of this condition is supportive, symptomatic and conservative Taper down on Latuda from 120 down to 100 mg daily at 17:00 for mood. Start on Modefinil 100ng daily for severe depression, low energy, poor concentration, poor motivation. ECT will be scheduled next week on Saturday. We will received treatment for Saturday/Saturday and Saturday. 04/09/25: Patient denies pain, normal bowel movement, slept well and compliant with medications. Denies side effects. Denies suicidal thoughts or hallucinations but reports mild on anxiety and moderate to severe depression. Patient appeared to be disheveled. Encourage patient to be out of bed in attended to groups included OT groups which observe he is visible in day room after the conversation. The OT will do the [place] for pre ECT next week on Saturday prior the ECT. He started modafinil 50 mg this morning. Indication and side effects explained to patient. Patient is receptive with the plan. Correction: Modefinill 50mg daily. MOCA scheduled next week prior to ECT. 04/10:Laying in bed most of morning. Patient continues to report feeling depressed. He reports looking forward to ECT; pt stated, I think it will be a positive step to get ECT . denies SI/HI/VH/AH. Encouraged to get out of bed. Continue tx plan 04/11: Per nursing, pt did not get out of bed yesterday. Observed laying in bed this morning; encouraged to attend groups and shower. Patient continues to report feeling depressed. denies SI/HI/VH/AH. Encouraged to get out of bed. Continue tx plan. 04/12: continue current tx plan 04/13: stably depressed. PMR. start ECT tomorrow, otherwise continue current mgmt. NPO past MN. 04/14/25: got his first ECT treatment this afternoon. Patient slept for 6 hours, was medication compliant. However, this morning due to the delay of the ECT treatment, he was not happy about the delay into the afternoon. He appeared to be frustrated, irritable, and not cooperative with this provider I do not want to talk to anyone . I am done talking . I do not care when asked his last bowel movement. Per nursing, patient denies suicidal thoughts, other safety concerns. Reports he has no bowel movement x4 days. Medication this morning was held until after the ECT. He also was given citrate magnesium x1. Pending effect. 04/15: made bowel movement. ECT #2 tomorrow. no change in mood or presentation as of today. T/C increasing modafanil to 200 mg sometime next week. 04/16: completed ECT without incident. no FLOWERS today. no change in presentation otherwise. continue current mgmt. ECT #3 saturday. 04/17/2025: No changes. ECT # 3 Saturday04/19/202504/18: no changes 04/19: completed ECT #3 today. no FLOWERS, no change in presentation, no change in mood. continue current mgmt. T/C modafanil increase. 04/20: mood starting to improve. laughed, affect brighter and more flexible. ECT tomorrow, NPO after midnight. continue current mgmt otherwise. 04/21: irritable at afternoon ECT. short today. continue current mgmt. 04/22: not irritable, appears depressed, says mood is unchanged. ECT tomorrow. continue current mgmt. strongly consider increase in modafanil dosing. 04/23/2025: Patient seen ECT completed bilaterally. Patient with markedly poor ADLs almost catatonic like allowing himself to be covered in feces not showering or caring for himself. Change ECT to 0.25 would follow-up on response to bilateral treatment if to withdrawn would may be secondary to bilateral and might consider return to right unilateral. Wellbutrin lowered to 300 mg modafinil was started at 100 mg can consider increase to 150 mg targeting apathy lethargy. Patient started on lorazepam 1 mg p.o. t.i.d. had test doses and seemed significantly improved with more fluid speech and increase range of affect hold lorazepam night prior to ECT 04/24/25: Patient slept for 8 hours, no appetite issues. Denies SI/SIB/HI/AVH. Report anxiety a 2/10 and anxiety an 8/10 which he says he does not feel much different yet from ECT. He denies short term memory. He denies FLOWERS or tireness now but says shortly after ECT he had FLOWERS from yesterday which has been gone. He reports normal BM which laxative was held yesterday. Observed patient spent couple hours in dinning areas, eating out in activity room and spent time watching TV. Nursing also reports patient attended group in the art room as well. He also showered yesterday. He is visible, but quiet keep to self, flat affect, depressed mood. Slightly improvement compare to last visit that this provider saw him about 1-2 weeks ago. Ativan started yesterday which seem to have some effects. 04/25/25: Patient slept for 8 hours, compliant with medications, denies side effects. Deny feeling tired on Ativan. Per nursing patient have incident of incontinence of feces yesterday. Therefore Colace and MiraLax and senna has been held. Notes on to hold when has loose stools. Patient denies safety concerns. Reported the same anxiety and depression level. He is more in bed today compared to yesterday but was out for meals. Flat affect, fair eye contact, resting in room. Attended no groups. No changes in terms of mental status. May have ECT on Saturday morning. 04/26: in bed after ECT. flat, withdrawn, slowed, soft. states his mood remains the same as before, no better and no worse. agreeable to increase modafanil to 150 mg. no apparent cognitive or memory deficits. 04/27: perhaps less slowed than recently. hold ativan this afternoon and overnight. NPO past MN. continue bifrontal ECT in the morning. 04/28: faster and more flexible affect. feels he is improving. decrease ativan from 1 mg TID to 0.5 mg TID. otherwise continue current mgmt. 04/29: as for yesterday. continue current mgmt. hold ativan after 3, NPO after MN. ECT in the morning. 04/30: ECT today uneventful. increase modafanil to 200 tomorrow. DC ativan after saturday morning dose. ECT saturday. NPO past MN saturday. otherwise continue current mgmt. 05/01: Continue current management and treatment plan. 05/02: continue current management and treatment plan. 05/03: ECT #9 completed uneventfully this morning. mood remains improved but pt still spending much of the day in bed with depressive facies. continue current mgmt. 05/04: appears a bit brighter, awake this morning. ECT #10 tomorrow. continue current mgmt. 05/05: poorer hygiene, not showering. reporting mood trending down again. open to increasing modafanil. continue current mgmt for now. 05/06: reports he showered and mood somewhat improved. amenable to increase modafanil to 300 mg as of tomorrow. ECT tomorrow. NPO p MN. 05/07: ECT #10 completed. mood trending better, more expressive. continue current mgmt. 05/08: mood improved, affective range improved. continue current mgmt. 05/09: mood remains improved, affect brighter. ECT tomorrow. continue current mgmt. 05/10: ECT #11 completed. Mood continues to improve. Will continue current med regimen/tx plan for now. 05/11: ECT #12 scheduled for tomorrow. Otherwise continue current tx plan 05/12: Minimal benefit w/ 12 ECT tx & Latuda 120 mg. Will hold off on further ECT for now and taper off Latuda due to lack of significant benefit. 05/13: Pt seems to have regressed somewhat based on his self-report and my review of his chart. 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 Untreated sleep apnea is less likely to contribute to pt's presentation based on sleep study from Mar 2025 following signifiant [facility] s/p gastric sleeve. Per [facility] neuro consult notes, pt has had memory impairment since the CVA in 2019. 05/14: Pt is visible in milieu this am. Switched to bupropion IR this am. Will d/c Latuda 20 mg due to minimal benefit at max dose. Will defer further ECT for now. Patient educated on: medication risk/benefits Informed Consent: understands Reason for continued inpatient stay Substantial Risk for: med/psych decompensation Time Spent With Patient Time: Total time managing care of this patient today 25 ____ minutes.
[2025-05-14 10:00] VITALS: BP 125/74; PULSE 71; RESP 18; TEMP 36.7; O2SAT 100
--- NOTE | 2025-05-14 10:02 | PC.NURSE ---
Kamar was attending group when he stood up to leave, he felt dizzy/lightheaded and fell to the floor. He did not hit his head or injure himself. Vitals 98.1*F 71 100% RA 125/74 L arm supine. He was assisted to a seated position and then assisted to a standing position. He denied dizziness or light headedness while standing or walking. Given a snack and drink. Debora Stallings MD made aware.
[2025-05-14 20:00] VITALS: BP 112/66; PULSE 72; RESP 20; TEMP 36.5; O2SAT 99
[2025-05-15] MEDS: 0.9 % Sodium Chloride Flush 10 ML SYRINGE IVFLUSH ×4 (00:14→23:59)
--- NOTE | 2025-05-15 07:33 | HO.PSYCHPN ---
Subjective Subjective Date of Service: 05/15/25 Reason For Visit: SI depression Subjective Notes: Conditional Voluntary Interim History: met with patient. Discussed with Nursing. Sleeping well. Getting towards end of ECT treatment. Unsure how much benefit staff of notice, but patient feels that he is getting some benefit. 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 Is in bed, isolative and self-care is limited. Denies SI or psychosis. Medication Compliance: Yes Side effects from medications: No Attending Groups: No Review of Systems Acute medical concerns: No Review of Systems Review of Systems Unremarkable Mental Status Exam Mental Status Exam Narrative: in bed. Hair is disheveled, wearing hospital thai, good eye contact. Cooperative. Paucity of speech, otherwise wnl. Calm motor activity, without tics, tremors or dyskinesias. Mood is 'okay'. Affect is blunted. Thought process is slow, ? some thought blocking, goal directed. Does not endorse SI or violent ideation. Does not endorse AH/VH and does not appear to respond to internal stim. Insight/judgment fair Diagnostics Vital Signs (24Hr): Vital Signs - 24 hr 05/14/25 09:45 05/14/25 10:00 05/14/25 20:00 Temperature 98.1 F 98.1 F 97.7 F Pulse Rate 71 71 72 Respiratory Rate 18 18 20 Blood Pressure 125/74 125/74 112/66 Pulse Oximetry 100 100 99 Oxygen Delivery Method Room Air Room Air BMI result Body Mass Index 32.2 Labs 04/23/25 10:35 04/23/25 10:35 Imaging Radiology Impressions: ITS Impressions Head CT 04/06/25 13:54 IMPRESSION: No acute intracranial hemorrhage. Bifrontal bitemporal lobes atrophy. Electronically signed by: Roque Guillen MD 04/06/2025 02:15 PM EDT Medications Medications Current Medications Acetaminophen (Acetaminophen 325 Mg Tablet) 650 mg PO Q6H PRN PRN Reason: Headache/Pain, Scale 1-10 Last Admin: 04/14/25 20:25 Dose: 650 mg Al Hydroxide/Mg Hydroxide (Magnesium Hydrox/Alum Hydrox 30 Ml Oral.Susp) 30 ml PO Q6H PRN PRN Reason: Heartburn/Nausea Aspirin (Aspirin Enteric Coated 81 Mg Tablet.) 81 mg PO DAILY JENNIFER Last Admin: 05/14/25 09:03 Dose: 81 mg Atorvastatin Calcium (Atorvastatin Calcium 20 Mg Tablet) 20 mg PO BEDTIME [facility] Last Admin: 05/14/25 20:28 Dose: 20 mg Bisacodyl (Bisacodyl 5 Mg Tablet.Dr) 10 mg PO DAILY PRN PRN Reason: severe Constipation Last Admin: 04/20/25 08:57 Dose: 10 mg Bupropion HCl (Bupropion Hcl 75 Mg Tablet) 75 mg PO BID@0900,1700 [facility] Last Admin: 05/14/25 17:53 Dose: 75 mg Docusate Sodium (Docusate Sodium 100 Mg Capsule) 100 mg PO BID PRN PRN Reason: constipation Hydroxyzine HCl (Hydroxyzine Hcl 25 Mg Tablet) 25 mg PO Q6H PRN PRN Reason: mild anxiety Last Admin: 03/26/25 23:24 Dose: 25 mg Magnesium Hydroxide (Milk Of Magnesia 30 Ml Oral.Susp) 30 ml PO DAILY PRN PRN Reason: Constipation Last Admin: 04/17/25 10:24 Dose: 30 ml Modafinil (Modafinil 100 Mg Tablet) 300 mg PO DAILY [facility] Last Admin: 05/14/25 09:03 Dose: 300 mg Naloxone HCl (Naloxone Hcl 0.4 Mg/Ml Vial) 0.04 mg IVPUSH Q5M PRN PRN Reason: Excessive sedation or RR < 8 Naloxone HCl (Naloxone Hcl 0.4 Mg/Ml Vial) 0.04 mg IVPUSH Q5M PRN PRN Reason: Excessive sedation or RR < 8 Nicotine (Nicotine 21 Mg Patch.Td24) 21 mg TRANSDERMA DAILY PRN PRN Reason: nicotine craving Nicotine Polacrilex (Nicotine Polacrilex 2 Mg Gum) 2 mg BUCCAL Q2H PRN PRN Reason: Nicotine Cravings Olanzapine (Olanzapine 5 Mg Tablet) 5 mg PO BID PRN PRN Reason: agitation Ondansetron HCl (Ondansetron Odt 8 Mg Tab.Rapdis) 8 mg TRANSLINGU Q8H PRN PRN Reason: Nausea and Vomiting Polyethylene Glycol (Polyethylene Glycol 3350 17 Gm Powd.Pack) 17 gm PO DAILY PRN PRN Reason: constipation Senna (Sennosides 8.6 Mg Tablet) 17.2 mg PO BEDTIME PRN PRN Reason: Constipation Sodium Chloride (0.9 % Sodium Chloride Flush 10 Ml Syringe) 10 ml IVFLUSH QSHIFT JENNIFER Last Admin: 05/15/25 00:14 Dose: 10 ml Trazodone HCl (Trazodone Hcl 50 Mg Tablet) 50 mg PO BEDTIME MRX1 PRN PRN Reason: Insomnia Last Admin: 04/05/25 23:14 Dose: 50 mg Allergies Allergies Allergy/AdvReac Type Severity Reaction Status Date / Time pumpkin Allergy Unknown Unknown Verified 12/24/24 12:26 Assessment & Plan Assessment & Plan (1) Depression: Qualifiers: Depression Type: unspecified Qualified Code(s): F32.A - Depression, unspecified Status: Acute Code(s): F32.A - Depression, unspecified (2) CVA (cerebral vascular accident): Status: Acute Code(s): I63.9 - Cerebral infarction, unspecified (3) CKD (chronic kidney disease): Qualifiers: Chronic kidney disease stage: stage 3 (moderate) Chronic kidney disease stage 3 subtype: stage 3a (GFR 45-59) Qualified Code(s): N18.31 - Chronic kidney disease, stage 3a Status: Acute Code(s): N18.9 - Chronic kidney disease, unspecified Assessment and Plan: Patient likely has some mild chronic kidney disease, 3a no proteinuria on most recent UA patient has mild renal disease, given medical history has low risk of developing ESRD requiring dialysis- ok for midline placement. Discussed with Dr Moody. Plan 03/27: feels latuda 120 has been helpful. however, remains depressed. add wellbutrin XL 150 daily for depression, plan to increase to 300 mg daily in 3 days. may also consider ECT due to lack of improvement despite numerous recent hospitalizations + lethality of suicide attempts + recent self-abnegating behaviors. 03/28: no change in presentation, no requests or complaints. started wellbutrin 150 today. continue current mgmt 03/29/25: Slept well, no issues with appetite. Observed out on the unit, attended groups, engaging. Reports depression and 03/21, denies anxiety. Constricted affect, congruent with mood. Denies safety concerns. Compliant with medications. Denies side effects from Wellbutrin. Continue to encourage groups. 03/30/25: Patient slept for 6 hours, was medication compliant. He attended 2 groups yesterday, however today he is more isolated, in bed a lot more time, declines a couple groups. Reports depressed but no anxiety, flat affect, depressed, but cooperative during one-to-one assessment. He is receptive with the plan of Wellbutrin increased up to 300 mg for depression. Reports passive SI, denies plan or intention. Denies other safety concerns. Encourage patient to go to groups and shower daily. Increase Wellbutrin XL to 300 mg daily for depression. He reported that he has bipolar type II. 03/31: Laying in bed. keeping to self. showered. patient reports feeling depressed ; pt stated, I'm not having a good day. I don't want to do anything . flat affect. denies SI/HI/VH/AH. Per nursing, slept 8 hours. encouraged to attend groups. continue current tx plan. 04/01/25: Patient slept for 8 hours, poor meal intake yesterday but was medication compliant. Denies side effects. When asked about if he has poor appetite as he ate only 50 of breakfast, and 25 for lunch and not eating dinner, he said because I did not do the menu, so I got what I do not like . He shower yesterday, continued to reports depression 03/21. Denied anxiety. He does not feel any difference from Wellbutrin 150 when and when it was increased up to 300 mg. Denies SI/SIB/HI/AVH, isolative self, he plans to attend groups today. This provider spoke with patient in length regarding medication trials. Per his report, has been trying so many antidepressants they just do not work, and continued to be depressed. Some of them are Zoloft, Paxil, Effexor, Celexa, Prozac, Cymbalta, Lexapro. He also having history of taking Zyprexa more than 20 years ago due to hearing voices. Then the voices was calm. He never has a take it again after. History of Abilify but not sure if it is working as he can not recall. Regarding ADLs: He said that he had food at the [facility] twice a day, but he is not showering for many days despite the fact that staff asked him to do so I just do not care about being clean . Reports very low energy, low motivation, been increased suicidal thoughts and depression. He used to love music and reading but not interested in doing anything like that anymore. Reported that he had gastric sleeve surgery back in August 2023 which he lost 230 lb. He weight 447 lb prior to the surgery. He identified that after the surgery he has been more depressed slowly over months. There was a time that he wanted to starve myself so I can when asked is that you that he has stopped eating at home. He also identified that he feel more depressed after surgery as he is not able to over eating like he did before. Family mental health illnesses: Reports that who both of his parents was depressed. Mom 11 years ago. 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 History of ECTs: Reports he had history of ECTs in 2010 when he was at in [facility].He felt worse after the treatment everything seems like a dream . He clarified that immediately after the treatment he feel that way which could be a side effects of ECT but not permanent. Educate patient on possible side effects ECTs. Patient denies having seizure during ECTs treatment, no seizure history no cardiac conditions/disease history. Reports history of hypertension, but not anymore. He also has been admitted to different hospitals for psychiatric admissions in the past couple of months. Reports staying at [facility] in December for a month. [facility] in the area names [facility]) in October for another month. Per email from his OP team- clinical director at [facility], they also express concerns of patient's conditions. It is noted that their concerns are very consistent with patient' report here on the unit. He also has been admitted to different hospitals for psychiatric admissions in the past couple of months. Reports staying at [facility] in December for a month. [facility] in the area names [facility]) in October for another month. Per email from his OP team- clinical director at [facility], they also express concerns of patient's conditions. It is noted that their concerns are very consistent with patient' report here on the unit. Alfredito has been in and out on inpatient level of care since October of this year, I believe every month, for a majority of the time. He was recently discharged from [facility] after a 1 month stay and within two hours of returning home wanted to return to the hospital, saying he was unwell, and within one day was sectioned by [facility], which is how he ended up with you now. He has been coming home and intentionally starving himself, even not eating for up to 1 week. We have known Alfredito for years and since this started in October, we have seen no significant improvement in his mental health or a return to baseline. In fact, we are observing his case as consistent with failure to thrive. We have been asking for him to be inpatient at [facility] or with you at [facility] for some time in order for him to be potentially considered for ECT level of treatment, if deemed appropriate. Multiple medication trials failture to target depressive symptoms. He will be a good candidate to get trial ECT treatment in combination with current medication regimens. Patient also agrees with the plan. We would start the treatment as soon as possible. Will discuss the case with in house psychiatrist-Dr. Ward to prepare for ECT treatment. Hope to start early next week. 04/02: Laying in bed. keeping to self. Patient continues to report feeling depressed; pt stated, I feel about the same. I spoke with the other provider and agreed to do ECT . He reports sleeping well. denies SI/HI/VH/AH. Encouraged to attend groups and shower. Continue current tx plan. 04/03: no changes- just started wellbutrin 04/04: no changes 04/05/25: report anxiety a 2-310 but still 03/21 for depression. No change since started Wellbutrin. He agrees to get Wellbutrin up to 450mg daily for depression. Isolative in room, staring up to the ceiling. Discuss with patient of option to start on Intuniv for severe depression. Patient declines it at this current time but agree to see Welbutrin increased would be helpful. He agrees with ECT. Encourage groups, he says he was at art group out to dinning area but there are too much so he went back to his room. Report not many groups offered over the weekends. 04/06/25: Patient slept for 6 hours, have a sleep study done last night. Reported that he did not sleep well. Appetite is okay. Mood is depressed 03/21, denies anxiety today. Denies suicidal thoughts, but reports he has passive SI yesterday intrusive, just do not Wanna live anymore . Denies hallucinations. Address with patient of why he having bowel movement in the shower. He said it is just one episode. Reports he feel constipated. Agree with Colace. He also inform regarding the ECT which was approved by the insurance. He compliant with medication, however reports he has not feeling any difference in terms of depression at since started on Wellbutrin. Encourage groups attendance. Observe him later on during the day reading at a table in dining area. Colace 100mg BID for constipation. ECT consult placed: Patient may be seen by tomorrow by Dr. Ward. Procedure done preparing for the ECT: Head CT scan negative, EKG normal sinus rhythm, Incomplete right bundle branch block. Borderline ECG_ no change when compare to previous EKG. Unremarkable CBC with diff. 04/07/25: Per hospitalist note: ECT risk stratification Patient without previous problems with anesthesia, has previously undergone ECT RCRI 0 points, no further cardiac workup or treatment indicated at this time EKG showed QT interval WNL, no evidence of ischemic changes Based on stated PMH, HPI, and physical exam, there are no apparent medical contraindications to the planned procedure. Patient is complaining of pelvic discomfort and constipation. We will add therapy with Senokot, MiraLax and obtain urinalysis to assess for urinary tract infection. Continue treatment with atorvastatin and aspirin for history of stroke and hyperlipidemia. 04/07/25: Patient compliant with medication, reports due to the pain abdominal, he could not sleep well last night. Continued to reports depressions 8/10, anxiety 4/10 today related to the pain. Denies suicidal thoughts or voices, isolated. Shower yesterday. Review with patient test need to be done prior to having ECT. Patient met with Dr. Ward and hospitalist for ECT clearance. Due to the pain, constipated, more laxative ordered today. Also UA other by hospitalist to rule out any infection. He is flat, low energy, low motivation, withdrawal, in room mostly, but come out to other rooms to talk to the providers 04/08/25: Patient slept for 8 hours, compliant with medications, denies side effect. Met with him in his room, reported that he slept better last night, having good bowel movement, denies diarrhea is. Informed him regarding the labs work/and UA that was negative to rule out UTI. Denies pain. Explained to patient regarding pre ECT procedures/test to prepare for the day that he going to start. We will start ECT on Saturday. Per Dr. Ward, we will taper down on Latuda, start him on Modafinil low dose to help with severe depression. Continued to reports moderate to severe depression. Denies suicidal thoughts or hallucinations. 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 He denied any significant or excessive drug exposure. I do not find any focal lesion, acute or chronic, suggestive of stroke. There was no contraindication to treatment with ECT. Otherwise treatment of this condition is supportive, symptomatic and conservative Taper down on Latuda from 120 down to 100 mg daily at 17:00 for mood. Start on Modefinil 100ng daily for severe depression, low energy, poor concentration, poor motivation. ECT will be scheduled next week on Saturday. We will received treatment for Saturday/Saturday and Saturday. 04/09/25: Patient denies pain, normal bowel movement, slept well and compliant with medications. Denies side effects. Denies suicidal thoughts or hallucinations but reports mild on anxiety and moderate to severe depression. Patient appeared to be disheveled. Encourage patient to be out of bed in attended to groups included OT groups which observe he is visible in day room after the conversation. The OT will do the [place] for pre ECT next week on Saturday prior the ECT. He started modafinil 50 mg this morning. Indication and side effects explained to patient. Patient is receptive with the plan. Correction: Modefinill 50mg daily. MOCA scheduled next week prior to ECT. 04/10:Laying in bed most of morning. Patient continues to report feeling depressed. He reports looking forward to ECT; pt stated, I think it will be a positive step to get ECT . denies SI/HI/VH/AH. Encouraged to get out of bed. Continue tx plan 04/11: Per nursing, pt did not get out of bed yesterday. Observed laying in bed this morning; encouraged to attend groups and shower. Patient continues to report feeling depressed. denies SI/HI/VH/AH. Encouraged to get out of bed. Continue tx plan. 04/12: continue current tx plan 04/13: stably depressed. PMR. start ECT tomorrow, otherwise continue current mgmt. NPO past MN. 04/14/25: got his first ECT treatment this afternoon. Patient slept for 6 hours, was medication compliant. However, this morning due to the delay of the ECT treatment, he was not happy about the delay into the afternoon. He appeared to be frustrated, irritable, and not cooperative with this provider I do not want to talk to anyone . I am done talking . I do not care when asked his last bowel movement. Per nursing, patient denies suicidal thoughts, other safety concerns. Reports he has no bowel movement x4 days. Medication this morning was held until after the ECT. He also was given citrate magnesium x1. Pending effect. 04/15: made bowel movement. ECT #2 tomorrow. no change in mood or presentation as of today. T/C increasing modafanil to 200 mg sometime next week. 04/16: completed ECT without incident. no FLOWERS today. no change in presentation otherwise. continue current mgmt. ECT #3 saturday. 04/17/2025: No changes. ECT # 3 Saturday04/19/202504/18: no changes 04/19: completed ECT #3 today. no FLOWERS, no change in presentation, no change in mood. continue current mgmt. T/C modafanil increase. 04/20: mood starting to improve. laughed, affect brighter and more flexible. ECT tomorrow, NPO after midnight. continue current mgmt otherwise. 04/21: irritable at afternoon ECT. short today. continue current mgmt. 04/22: not irritable, appears depressed, says mood is unchanged. ECT tomorrow. continue current mgmt. strongly consider increase in modafanil dosing. 04/23/2025: Patient seen ECT completed bilaterally. Patient with markedly poor ADLs almost catatonic like allowing himself to be covered in feces not showering or caring for himself. Change ECT to 0.25 would follow-up on response to bilateral treatment if to withdrawn would may be secondary to bilateral and might consider return to right unilateral. Wellbutrin lowered to 300 mg modafinil was started at 100 mg can consider increase to 150 mg targeting apathy lethargy. Patient started on lorazepam 1 mg p.o. t.i.d. had test doses and seemed significantly improved with more fluid speech and increase range of affect hold lorazepam night prior to ECT 04/24/25: Patient slept for 8 hours, no appetite issues. Denies SI/SIB/HI/AVH. Report anxiety a 2/10 and anxiety an 8/10 which he says he does not feel much different yet from ECT. He denies short term memory. He denies FLOWERS or tireness now but says shortly after ECT he had FLOWERS from yesterday which has been gone. He reports normal BM which laxative was held yesterday. Observed patient spent couple hours in dinning areas, eating out in activity room and spent time watching TV. Nursing also reports patient attended group in the art room as well. He also showered yesterday. He is visible, but quiet keep to self, flat affect, depressed mood. Slightly improvement compare to last visit that this provider saw him about 1-2 weeks ago. Ativan started yesterday which seem to have some effects. 04/25/25: Patient slept for 8 hours, compliant with medications, denies side effects. Deny feeling tired on Ativan. Per nursing patient have incident of incontinence of feces yesterday. Therefore Colace and MiraLax and senna has been held. Notes on to hold when has loose stools. Patient denies safety concerns. Reported the same anxiety and depression level. He is more in bed today compared to yesterday but was out for meals. Flat affect, fair eye contact, resting in room. Attended no groups. No changes in terms of mental status. May have ECT on Saturday morning. 04/26: in bed after ECT. flat, withdrawn, slowed, soft. states his mood remains the same as before, no better and no worse. agreeable to increase modafanil to 150 mg. no apparent cognitive or memory deficits. 04/27: perhaps less slowed than recently. hold ativan this afternoon and overnight. NPO past MN. continue bifrontal ECT in the morning. 04/28: faster and more flexible affect. feels he is improving. decrease ativan from 1 mg TID to 0.5 mg TID. otherwise continue current mgmt. 04/29: as for yesterday. continue current mgmt. hold ativan after 3, NPO after MN. ECT in the morning. 04/30: ECT today uneventful. increase modafanil to 200 tomorrow. DC ativan after saturday morning dose. ECT saturday. NPO past MN saturday. otherwise continue current mgmt. 05/01: Continue current management and treatment plan. 05/02: continue current management and treatment plan. 05/03: ECT #9 completed uneventfully this morning. mood remains improved but pt still spending much of the day in bed with depressive facies. continue current mgmt. 05/04: appears a bit brighter, awake this morning. ECT #10 tomorrow. continue current mgmt. 05/05: poorer hygiene, not showering. reporting mood trending down again. open to increasing modafanil. continue current mgmt for now. 05/06: reports he showered and mood somewhat improved. amenable to increase modafanil to 300 mg as of tomorrow. ECT tomorrow. NPO p MN. 05/07: ECT #10 completed. mood trending better, more expressive. continue current mgmt. 05/08: mood improved, affective range improved. continue current mgmt. 05/09: mood remains improved, affect brighter. ECT tomorrow. continue current mgmt. 05/10: ECT #11 completed. Mood continues to improve. Will continue current med regimen/tx plan for now. 05/11: ECT #12 scheduled for tomorrow. Otherwise continue current tx plan 05/12: Minimal benefit w/ 12 ECT tx & Latuda 120 mg. Will hold off on further ECT for now and taper off Latuda due to lack of significant benefit. 05/13: Pt seems to have regressed somewhat based on his self-report and my review of his chart. 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 Untreated sleep apnea is less likely to contribute to pt's presentation based on sleep study from Mar 2025 following signifiant [facility] s/p gastric sleeve. Per [facility] neuro consult notes, pt has had memory impairment since the CVA in 2019. 05/14: Pt is visible in milieu this am. Switched to bupropion IR this am. Will d/c Latuda 20 mg due to minimal benefit at max dose. Will defer further ECT for now. 05/15/2025: No changes. Noted ECT being deferred Reason for continued inpatient stay Substantial Risk for: inability to function Time Spent With Patient Time: Total time managing care of this patient today ____ minutes.
[2025-05-15 08:00] VITALS: BP 135/72; PULSE 65; RESP 20; TEMP 36.8; O2SAT 96
[2025-05-15] MEDS: Aspirin Enteric Coated 81 MG TABLET.DR PO (08:45)
[2025-05-16 08:00] VITALS: BP 114/72; PULSE 60; RESP 16; TEMP 36.4; O2SAT 100
[2025-05-16] MEDS: Aspirin Enteric Coated 81 MG TABLET.DR PO (08:54)
[2025-05-16] MEDS: 0.9 % Sodium Chloride Flush 10 ML SYRINGE IVFLUSH ×2 (09:00→17:47)
--- NOTE | 2025-05-16 11:03 | P.PNPSI_ITS ---
Subjective Subjective Date of Service: 05/16/25 Reason For Visit: SI depression Interim History: met with patient. Discussed with Nursing. Sleeping well. appears more depressed today. Less engaged. In bed, isolative and self-care is limited. Denies SI or psychosis. Medication Compliance: Yes Side effects from medications: No Attending Groups: No Review of Systems Acute medical concerns: No Review of Systems Review of Systems Unremarkable Mental Status Exam Mental Status Exam Narrative: in bed. Hair is disheveled, wearing hospital thai, good eye contact. Cooperative. Paucity of speech, otherwise wnl. Calm motor activity, without tics, tremors or dyskinesias. Mood is 'okay'. Affect is blunted. Thought process is slow, ? some thought blocking, goal directed. Does not endorse SI or violent ideation. Does not endorse AH/VH and does not appear to respond to internal stim. Insight/judgment fair Diagnostics Vital Signs (24Hr): Vital Signs - 24 hr 05/16/25 08:00 Temperature 97.6 F Pulse Rate 60 Respiratory Rate 16 Blood Pressure 114/72 Pulse Oximetry 100 Oxygen Delivery Method Room Air BMI result Body Mass Index 32.2 Labs 04/23/25 10:35 04/23/25 10:35 Imaging Radiology Impressions: ITS Impressions Head CT 04/06/25 13:54 IMPRESSION: No acute intracranial hemorrhage. Bifrontal bitemporal lobes atrophy. Electronically signed by: Roque Guillen MD 04/06/2025 02:15 PM EDT Medications Medications Current Medications Acetaminophen (Acetaminophen 325 Mg Tablet) 650 mg PO Q6H PRN PRN Reason: Headache/Pain, Scale 1-10 Last Admin: 04/14/25 20:25 Dose: 650 mg Al Hydroxide/Mg Hydroxide (Magnesium Hydrox/Alum Hydrox 30 Ml Oral.Susp) 30 ml PO Q6H PRN PRN Reason: Heartburn/Nausea Aspirin (Aspirin Enteric Coated 81 Mg Tablet.) 81 mg PO DAILY [facility] Last Admin: 05/16/25 08:54 Dose: 81 mg Atorvastatin Calcium (Atorvastatin Calcium 20 Mg Tablet) 20 mg PO BEDTIME [facility] Last Admin: 05/15/25 20:59 Dose: 20 mg Bisacodyl (Bisacodyl 5 Mg Tablet.) 10 mg PO DAILY PRN PRN Reason: severe Constipation Last Admin: 04/20/25 08:57 Dose: 10 mg Bupropion HCl (Bupropion Hcl 75 Mg Tablet) 75 mg PO BID@0900,1700 [facility] Last Admin: 05/16/25 08:54 Dose: 75 mg Docusate Sodium (Docusate Sodium 100 Mg Capsule) 100 mg PO BID PRN PRN Reason: constipation Hydroxyzine HCl (Hydroxyzine Hcl 25 Mg Tablet) 25 mg PO Q6H PRN PRN Reason: mild anxiety Last Admin: 03/26/25 23:24 Dose: 25 mg Magnesium Hydroxide (Milk Of Magnesia 30 Ml Oral.Susp) 30 ml PO DAILY PRN PRN Reason: Constipation Last Admin: 04/17/25 10:24 Dose: 30 ml Modafinil (Modafinil 100 Mg Tablet) 300 mg PO DAILY [facility] Last Admin: 05/16/25 08:54 Dose: 300 mg Naloxone HCl (Naloxone Hcl 0.4 Mg/Ml Vial) 0.04 mg IVPUSH Q5M PRN PRN Reason: Excessive sedation or RR < 8 Naloxone HCl (Naloxone Hcl 0.4 Mg/Ml Vial) 0.04 mg IVPUSH Q5M PRN PRN Reason: Excessive sedation or RR < 8 Nicotine (Nicotine 21 Mg Patch.Td24) 21 mg TRANSDERMA DAILY PRN PRN Reason: nicotine craving Nicotine Polacrilex (Nicotine Polacrilex 2 Mg Gum) 2 mg BUCCAL Q2H PRN PRN Reason: Nicotine Cravings Olanzapine (Olanzapine 5 Mg Tablet) 5 mg PO BID PRN PRN Reason: agitation Ondansetron HCl (Ondansetron Odt 8 Mg Tab.Rapdis) 8 mg TRANSLINGU Q8H PRN PRN Reason: Nausea and Vomiting Polyethylene Glycol (Polyethylene Glycol 3350 17 Gm Powd.Pack) 17 gm PO DAILY PRN PRN Reason: constipation Senna (Sennosides 8.6 Mg Tablet) 17.2 mg PO BEDTIME PRN PRN Reason: Constipation Sodium Chloride (0.9 % Sodium Chloride Flush 10 Ml Syringe) 10 ml IVFLUSH QSHIFT [facility] Last Admin: 05/16/25 09:00 Dose: 10 ml Trazodone HCl (Trazodone Hcl 50 Mg Tablet) 50 mg PO BEDTIME MRX1 PRN PRN Reason: Insomnia Last Admin: 04/05/25 23:14 Dose: 50 mg Allergies Allergies Allergy/AdvReac Type Severity Reaction Status Date / Time pumpkin Allergy Unknown Unknown Verified 12/24/24 12:26 Assessment & Plan Assessment & Plan (1) Depression: Qualifiers: Depression Type: unspecified Qualified Code(s): F32.A - Depression, unspecified Status: Acute Code(s): F32.A - Depression, unspecified (2) CVA (cerebral vascular accident): Status: Acute Code(s): I63.9 - Cerebral infarction, unspecified (3) CKD (chronic kidney disease): Qualifiers: Chronic kidney disease stage: stage 3 (moderate) Chronic kidney disease stage 3 subtype: stage 3a (GFR 45-59) Qualified Code(s): N18.31 - Chronic kidney disease, stage 3a Status: Acute Code(s): N18.9 - Chronic kidney disease, unspecified Assessment and Plan: Patient likely has some mild chronic kidney disease, 3a no proteinuria on most recent UA patient has mild renal disease, given medical history has low risk of developing ESRD requiring dialysis- ok for midline placement. Discussed with Dr Moody. Plan 03/27: feels latuda 120 has been helpful. however, remains depressed. add wellbutrin XL 150 daily for depression, plan to increase to 300 mg daily in 3 days. may also consider ECT due to lack of improvement despite numerous recent hospitalizations + lethality of suicide attempts + recent self-abnegating behaviors. 03/28: no change in presentation, no requests or complaints. started wellbutrin 150 today. continue current mgmt 03/29/25: Slept well, no issues with appetite. Observed out on the unit, attended groups, engaging. Reports depression and 03/21, denies anxiety. Constricted affect, congruent with mood. Denies safety concerns. Compliant with medications. Denies side effects from Wellbutrin. Continue to encourage groups. 03/30/25: Patient slept for 6 hours, was medication compliant. He attended 2 groups yesterday, however today he is more isolated, in bed a lot more time, declines a couple groups. Reports depressed but no anxiety, flat affect, depressed, but cooperative during one-to-one assessment. He is receptive with the plan of Wellbutrin increased up to 300 mg for depression. Reports passive SI, denies plan or intention. Denies other safety concerns. Encourage patient to go to groups and shower daily. Increase Wellbutrin XL to 300 mg daily for depression. He reported that he has bipolar type II. 03/31: Laying in bed. keeping to self. showered. patient reports feeling depressed ; pt stated, I'm not having a good day. I don't want to do anything . flat affect. denies SI/HI/VH/AH. Per nursing, slept 8 hours. encouraged to attend groups. continue current tx plan. 04/01/25: Patient slept for 8 hours, poor meal intake yesterday but was medication compliant. Denies side effects. When asked about if he has poor appetite as he ate only 50 of breakfast, and 25 for lunch and not eating dinner, he said because I did not do the menu, so I got what I do not like . He shower yesterday, continued to reports depression 03/21. Denied anxiety. He does not feel any difference from Wellbutrin 150 when and when it was increased up to 300 mg. Denies SI/SIB/HI/AVH, isolative self, he plans to attend groups today. This provider spoke with patient in length regarding medication trials. Per his report, has been trying so many antidepressants they just do not work, and continued to be depressed. Some of them are Zoloft, Paxil, Effexor, Celexa, Prozac, Cymbalta, Lexapro. He also having history of taking Zyprexa more than 20 years ago due to hearing voices. Then the voices was calm. He never has a take it again after. History of Abilify but not sure if it is working as he can not recall. Regarding ADLs: He said that he had food at [facility] a day, but he is not showering for many days despite the fact that staff asked him to do so I just do not care about being clean . Reports very low energy, low motivation, been increased suicidal thoughts and depression. He used to love music and reading but not interested in doing anything like that anymore. Reported that he had gastric sleeve surgery back in August 2023 which he lost 230 lb. He weight 447 lb prior to the surgery. He identified that after the surgery he has been more depressed slowly over months. There was a time that he wanted to starve myself so I can when asked is that you that he has stopped eating at home. He also identified that he feel more depressed after surgery as he is not able to over eating like he did before. Family mental health illnesses: Reports that who both of his parents was depressed. Mom 11 years ago. 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 History of ECTs: Reports he had history of ECTs in 2010 when he was at in [facility].He felt worse after the treatment everything seems like a dream . He clarified that immediately after the treatment he feel that way which could be a side effects of ECT but not permanent. Educate patient on possible side effects ECTs. Patient denies having seizure during ECTs treatment, no seizure history no cardiac conditions/disease history. Reports history of hypertension, but not anymore. He also has been admitted to different hospitals for psychiatric admissions in the past couple of months. Reports staying at [facility] in December for a month. [facility] in the area names [facility]) in October for another month. Per email from his OP team- clinical director at [facility], they also express concerns of patient's conditions. It is noted that their concerns are very consistent with patient' report here on the unit. He also has been admitted to different hospitals for psychiatric admissions in the past couple of months. Reports staying at [facility] in December for a month. [facility] in the area names [facility]) in October for another month. Per email from his OP team- clinical director at [facility], they also express concerns of patient's conditions. It is noted that their concerns are very consistent with patient' report here on the unit. Alfredito has been in and out on inpatient level of care since October of this year, I believe every month, for a majority of the time. He was recently discharged from [facility] after a 1 month stay and within two hours of returning home wanted to return to the hospital, saying he was unwell, and within one day was sectioned by [facility], which is how he ended up with you now. He has been coming home and intentionally starving himself, even not eating for up to 1 week. We have known Alfredito for years and since this started in October, we have seen no significant improvement in his mental health or a return to baseline. In fact, we are observing his case as consistent with failure to thrive. We have been asking for him to be inpatient at [facility] or with you at [facility] for some time in order for him to be potentially considered for ECT level of treatment, if deemed appropriate. Multiple medication trials failture to target depressive symptoms. He will be a good candidate to get trial ECT treatment in combination with current medication regimens. Patient also agrees with the plan. We would start the treatment as soon as possible. Will discuss the case with in house psychiatrist-Dr. Ward to prepare for ECT treatment. Hope to start early next week. 04/02: Laying in bed. keeping to self. Patient continues to report feeling depressed; pt stated, I feel about the same. I spoke with the other provider and agreed to do ECT . He reports sleeping well. denies SI/HI/VH/AH. Encouraged to attend groups and shower. Continue current tx plan. 04/03: no changes- just started wellbutrin 04/04: no changes 04/05/25: report anxiety a 2-310 but still 8 for depression. No change since started Wellbutrin. He agrees to get Wellbutrin up to 450mg daily for depression. Isolative in room, staring up to the ceiling. Discuss with patient of option to start on Intuniv for severe depression. Patient declines it at this current time but agree to see Welbutrin increased would be helpful. He agrees with ECT. Encourage groups, he says he was at art group out to dinning area but there are too much so he went back to his room. Report not many groups offered over the weekends. 04/06/25: Patient slept for 6 hours, have a sleep study done last night. Reported that he did not sleep well. Appetite is okay. Mood is depressed 03/21, denies anxiety today. Denies suicidal thoughts, but reports he has passive SI yesterday intrusive, just do not Wanna live anymore . Denies hallucinations. Address with patient of why he having bowel movement in the shower. He said it is just one episode. Reports he feel constipated. Agree with Colace. He also inform regarding the ECT which was approved by the insurance. He compliant with medication, however reports he has not feeling any difference in terms of depression at since started on Wellbutrin. Encourage groups attendance. Observe him later on during the day reading at a table in dining area. Colace 100mg BID for constipation. ECT consult placed: Patient may be seen by tomorrow by Dr. Ward. Procedure done preparing for the ECT: Head CT scan negative, EKG normal sinus rhythm, Incomplete right bundle branch block. Borderline ECG_ no change when compare to previous EKG. Unremarkable CBC with diff. 04/07/25: Per hospitalist note: ECT risk stratification Patient without previous problems with anesthesia, has previously undergone ECT RCRI 0 points, no further cardiac workup or treatment indicated at this time EKG showed QT interval WNL, no evidence of ischemic changes Based on stated PMH, HPI, and physical exam, there are no apparent medical contraindications to the planned procedure. Patient is complaining of pelvic discomfort and constipation. We will add therapy with Senokot, MiraLax and obtain urinalysis to assess for urinary tract infection. Continue treatment with atorvastatin and aspirin for history of stroke and hyperlipidemia. 04/07/25: Patient compliant with medication, reports due to the pain abdominal, he could not sleep well last night. Continued to reports depressions 8/10, anxiety 4/10 today related to the pain. Denies suicidal thoughts or voices, isolated. Shower yesterday. Review with patient test need to be done prior to having ECT. Patient met with Dr. Ward and hospitalist for ECT clearance. Due to the pain, constipated, more laxative ordered today. Also UA other by hospitalist to rule out any infection. He is flat, low energy, low motivation, withdrawal, in room mostly, but come out to other rooms to talk to the providers 04/08/25: Patient slept for 8 hours, compliant with medications, denies side effect. Met with him in his room, reported that he slept better last night, having good bowel movement, denies diarrhea is. Informed him regarding the labs work/and UA that was negative to rule out UTI. Denies pain. Explained to patient regarding pre ECT procedures/test to prepare for the day that he going to start. We will start ECT on Saturday. Per Dr. Ward, we will taper down on Latuda, start him on Modafinil low dose to help with severe depression. Continued to reports moderate to severe depression. Denies suicidal thoughts or hallucinations. 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 He denied any significant or excessive drug exposure. I do not find any focal lesion, acute or chronic, suggestive of stroke. There was no contraindication to treatment with ECT. Otherwise treatment of this condition is supportive, symptomatic and conservative Taper down on Latuda from 120 down to 100 mg daily at 17:00 for mood. Start on Modefinil 100ng daily for severe depression, low energy, poor concentration, poor motivation. ECT will be scheduled next week on Saturday. We will received treatment for Saturday/Saturday and Saturday. 04/09/25: Patient denies pain, normal bowel movement, slept well and compliant with medications. Denies side effects. Denies suicidal thoughts or hallucinations but reports mild on anxiety and moderate to severe depression. Patient appeared to be disheveled. Encourage patient to be out of bed in attended to groups included OT groups which observe he is visible in day room after the conversation. The OT will do the [place] for pre ECT next week on Saturday prior the ECT. He started modafinil 50 mg this morning. Indication and side effects explained to patient. Patient is receptive with the plan. Correction: Modefinill 50mg daily. MOCA scheduled next week prior to ECT. 04/10:Laying in bed most of morning. Patient continues to report feeling depressed. He reports looking forward to ECT; pt stated, I think it will be a positive step to get ECT . denies SI/HI/VH/AH. Encouraged to get out of bed. Continue tx plan 04/11: Per nursing, pt did not get out of bed yesterday. Observed laying in bed this morning; encouraged to attend groups and shower. Patient continues to report feeling depressed. denies SI/HI/VH/AH. Encouraged to get out of bed. Continue tx plan. 04/12: continue current tx plan 04/13: stably depressed. PMR. start ECT tomorrow, otherwise continue current mgmt. NPO past MN. 04/14/25: got his first ECT treatment this afternoon. Patient slept for 6 hours, was medication compliant. However, this morning due to the delay of the ECT treatment, he was not happy about the delay into the afternoon. He appeared to be frustrated, irritable, and not cooperative with this provider I do not want to talk to anyone . I am done talking . I do not care when asked his last bowel movement. Per nursing, patient denies suicidal thoughts, other safety concerns. Reports he has no bowel movement x4 days. Medication this morning was held until after the ECT. He also was given citrate magnesium x1. Pending effect. 04/15: made bowel movement. ECT #2 tomorrow. no change in mood or presentation as of today. T/C increasing modafanil to 200 mg sometime next week. 04/16: completed ECT without incident. no FLOWERS today. no change in presentation otherwise. continue current mgmt. ECT #3 saturday. 04/17/2025: No changes. ECT # 3 Saturday04/19/202504/18: no changes 04/19: completed ECT #3 today. no FLOWERS, no change in presentation, no change in mood. continue current mgmt. T/C modafanil increase. 04/20: mood starting to improve. laughed, affect brighter and more flexible. ECT tomorrow, NPO after midnight. continue current mgmt otherwise. 04/21: irritable at afternoon ECT. short today. continue current mgmt. 04/22: not irritable, appears depressed, says mood is unchanged. ECT tomorrow. continue current mgmt. strongly consider increase in modafanil dosing. 04/23/2025: Patient seen ECT completed bilaterally. Patient with markedly poor ADLs almost catatonic like allowing himself to be covered in feces not showering or caring for himself. Change ECT to 0.25 would follow-up on response to bilateral treatment if to withdrawn would may be secondary to bilateral and might consider return to right unilateral. Wellbutrin lowered to 300 mg modafinil was started at 100 mg can consider increase to 150 mg targeting apathy lethargy. Patient started on lorazepam 1 mg p.o. t.i.d. had test doses and seemed significantly improved with more fluid speech and increase range of affect hold lorazepam night prior to ECT 04/24/25: Patient slept for 8 hours, no appetite issues. Denies SI/SIB/HI/AVH. Report anxiety a 2/10 and anxiety an 8/10 which he says he does not feel much different yet from ECT. He denies short term memory. He denies FLOWERS or tireness now but says shortly after ECT he had FLOWERS from yesterday which has been gone. He reports normal BM which laxative was held yesterday. Observed patient spent couple hours in dinning areas, eating out in activity room and spent time watching TV. Nursing also reports patient attended group in the art room as well. He also showered yesterday. He is visible, but quiet keep to self, flat affect, depressed mood. Slightly improvement compare to last visit that this provider saw him about 1-2 weeks ago. Ativan started yesterday which seem to have some effects. 04/25/25: Patient slept for 8 hours, compliant with medications, denies side effects. Deny feeling tired on Ativan. Per nursing patient have incident of incontinence of feces yesterday. Therefore Colace and MiraLax and senna has been held. Notes on to hold when has loose stools. Patient denies safety concerns. Reported the same anxiety and depression level. He is more in bed today compared to yesterday but was out for meals. Flat affect, fair eye contact, resting in room. Attended no groups. No changes in terms of mental status. May have ECT on Saturday morning. 04/26: in bed after ECT. flat, withdrawn, slowed, soft. states his mood remains the same as before, no better and no worse. agreeable to increase modafanil to 150 mg. no apparent cognitive or memory deficits. 04/27: perhaps less slowed than recently. hold ativan this afternoon and overnight. NPO past MN. continue bifrontal ECT in the morning. 04/28: faster and more flexible affect. feels he is improving. decrease ativan from 1 mg TID to 0.5 mg TID. otherwise continue current mgmt. 04/29: as for yesterday. continue current mgmt. hold ativan after 3, NPO after MN. ECT in the morning. 04/30: ECT today uneventful. increase modafanil to 200 tomorrow. DC ativan after saturday morning dose. ECT saturday. NPO past MN saturday. otherwise continue current mgmt. 05/01: Continue current management and treatment plan. 05/02: continue current management and treatment plan. 05/03: ECT #9 completed uneventfully this morning. mood remains improved but pt still spending much of the day in bed with depressive facies. continue current mgmt. 05/04: appears a bit brighter, awake this morning. ECT #10 tomorrow. continue current mgmt. 05/05: poorer hygiene, not showering. reporting mood trending down again. open to increasing modafanil. continue current mgmt for now. 05/06: reports he showered and mood somewhat improved. amenable to increase modafanil to 300 mg as of tomorrow. ECT tomorrow. NPO p MN. 05/07: ECT #10 completed. mood trending better, more expressive. continue current mgmt. 05/08: mood improved, affective range improved. continue current mgmt. 05/09: mood remains improved, affect brighter. ECT tomorrow. continue current mgmt. 05/10: ECT #11 completed. Mood continues to improve. Will continue current med regimen/tx plan for now. 05/11: ECT #12 scheduled for tomorrow. Otherwise continue current tx plan 05/12: Minimal benefit w/ 12 ECT tx & Latuda 120 mg. Will hold off on further ECT for now and taper off Latuda due to lack of significant benefit. 05/13: Pt seems to have regressed somewhat based on his self-report and my review of his chart. 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 Untreated sleep apnea is less likely to contribute to pt's presentation based on sleep study from Mar 2025 following signifiant [facility] s/p gastric sleeve. Per [facility] neuro consult notes, pt has had memory impairment since the CVA in 2019. 05/14: Pt is visible in milieu this am. Switched to bupropion IR this am. Will d/c Latuda 20 mg due to minimal benefit at max dose. Will defer further ECT for now. 05/16/2025: No changes. Noted ECT being deferred Reason for continued inpatient stay Substantial Risk for: inability to function and rapid decompensation Time Spent With Patient Time: Total time managing care of this patient today ____ minutes.
[2025-05-16 19:20] VITALS: BP 109/70; PULSE 64; RESP 14; TEMP 36.7; O2SAT 95
[2025-05-17] MEDS: 0.9 % Sodium Chloride Flush 10 ML SYRINGE IVFLUSH ×3 (00:18→15:43)
[2025-05-17 07:20] VITALS: BP 123/73; PULSE 70; RESP 18; TEMP 36.2; O2SAT 100
[2025-05-17] MEDS: Aspirin Enteric Coated 81 MG TABLET.DR PO (09:04)
--- NOTE | 2025-05-17 09:31 | HO.PSYCHPN ---
Subjective Subjective Date of Service: 05/17/25 Reason For Visit: SI depression Subjective Notes: Conditional Voluntary Interim History: Chart reviewed, case discussed with tx team Pt has not been attending grps. Reportedly slept 8 hrs last night Met w/ pt in his room, where he was lying in bed but easily rousable to his name being called. He endorses ongoing depression with SI. Denies plan/intent to harm himself here. He feels like he was doing better when he got ECT but didn't recall that ECT has been held since last Sat. He advocated for further ECT. Pt denies any med SE that he can appreciate Denies / Mental Status Exam Mental Status Exam Narrative: in bed. Hair is disheveled, wearing hospital thai, good eye contact. Cooperative. Paucity of speech, some latency. Calm motor activity, without tics, tremors or dyskinesias. Mood is depressed. Affect is appropriate, more reactive than t/w's last encounter with him 3 days ago Thought process is slow but linear. Does not appear to respond to internal stimuli. Insight/judgment fair Diagnostics Vital Signs (24Hr): Vital Signs - 24 hr 05/16/25 19:20 05/17/25 07:20 Temperature 98.0 F 97.2 F Pulse Rate 64 70 Respiratory Rate 14 18 Blood Pressure 109/70 123/73 Pulse Oximetry 95 100 Oxygen Delivery Method Room Air Room Air BMI result Body Mass Index 32.2 Labs 04/23/25 10:35 04/23/25 10:35 Imaging Radiology Impressions: ITS Impressions Head CT 04/06/25 13:54 IMPRESSION: No acute intracranial hemorrhage. Bifrontal bitemporal lobes atrophy. Electronically signed by: Roque Guillen MD 04/06/2025 02:15 PM EDT Medications Medications Current Medications Acetaminophen (Acetaminophen 325 Mg Tablet) 650 mg PO Q6H PRN PRN Reason: Headache/Pain, Scale 1-10 Last Admin: 04/14/25 20:25 Dose: 650 mg Al Hydroxide/Mg Hydroxide (Magnesium Hydrox/Alum Hydrox 30 Ml Oral.Susp) 30 ml PO Q6H PRN PRN Reason: Heartburn/Nausea Aspirin (Aspirin Enteric Coated 81 Mg Tablet.) 81 mg PO DAILY JENNIFER Last Admin: 05/17/25 09:04 Dose: 81 mg Atorvastatin Calcium (Atorvastatin Calcium 20 Mg Tablet) 20 mg PO BEDTIME [facility] Last Admin: 05/16/25 22:05 Dose: 20 mg Bisacodyl (Bisacodyl 5 Mg Tablet.Dr) 10 mg PO DAILY PRN PRN Reason: severe Constipation Last Admin: 04/20/25 08:57 Dose: 10 mg Bupropion HCl (Bupropion Hcl 75 Mg Tablet) 75 mg PO BID@0900,1700 [facility] Last Admin: 05/17/25 09:05 Dose: 75 mg Docusate Sodium (Docusate Sodium 100 Mg Capsule) 100 mg PO BID PRN PRN Reason: constipation Hydroxyzine HCl (Hydroxyzine Hcl 25 Mg Tablet) 25 mg PO Q6H PRN PRN Reason: mild anxiety Last Admin: 03/26/25 23:24 Dose: 25 mg Magnesium Hydroxide (Milk Of Magnesia 30 Ml Oral.Susp) 30 ml PO DAILY PRN PRN Reason: Constipation Last Admin: 04/17/25 10:24 Dose: 30 ml Modafinil (Modafinil 100 Mg Tablet) 300 mg PO DAILY [facility] Last Admin: 05/17/25 09:04 Dose: 300 mg Naloxone HCl (Naloxone Hcl 0.4 Mg/Ml Vial) 0.04 mg IVPUSH Q5M PRN PRN Reason: Excessive sedation or RR < 8 Naloxone HCl (Naloxone Hcl 0.4 Mg/Ml Vial) 0.04 mg IVPUSH Q5M PRN PRN Reason: Excessive sedation or RR < 8 Nicotine (Nicotine 21 Mg Patch.Td24) 21 mg TRANSDERMA DAILY PRN PRN Reason: nicotine craving Nicotine Polacrilex (Nicotine Polacrilex 2 Mg Gum) 2 mg BUCCAL Q2H PRN PRN Reason: Nicotine Cravings Olanzapine (Olanzapine 5 Mg Tablet) 5 mg PO BID PRN PRN Reason: agitation Ondansetron HCl (Ondansetron Odt 8 Mg Tab.Rapdis) 8 mg TRANSLINGU Q8H PRN PRN Reason: Nausea and Vomiting Polyethylene Glycol (Polyethylene Glycol 3350 17 Gm Powd.Pack) 17 gm PO DAILY PRN PRN Reason: constipation Senna (Sennosides 8.6 Mg Tablet) 17.2 mg PO BEDTIME PRN PRN Reason: Constipation Sodium Chloride (0.9 % Sodium Chloride Flush 10 Ml Syringe) 10 ml IVFLUSH QSHIFT JENNIFER Last Admin: 05/17/25 09:05 Dose: 10 ml Trazodone HCl (Trazodone Hcl 50 Mg Tablet) 50 mg PO BEDTIME MRX1 PRN PRN Reason: Insomnia Last Admin: 04/05/25 23:14 Dose: 50 mg Allergies Allergies Allergy/AdvReac Type Severity Reaction Status Date / Time pumpkin Allergy Unknown Unknown Verified 12/24/24 12:26 Assessment & Plan Assessment & Plan (1) Depression: Qualifiers: Depression Type: unspecified Qualified Code(s): F32.A - Depression, unspecified Status: Acute Code(s): F32.A - Depression, unspecified (2) CVA (cerebral vascular accident): Status: Acute Code(s): I63.9 - Cerebral infarction, unspecified (3) CKD (chronic kidney disease): Qualifiers: Chronic kidney disease stage: stage 3 (moderate) Chronic kidney disease stage 3 subtype: stage 3a (GFR 45-59) Qualified Code(s): N18.31 - Chronic kidney disease, stage 3a Status: Acute Code(s): N18.9 - Chronic kidney disease, unspecified Assessment and Plan: Patient likely has some mild chronic kidney disease, 3a no proteinuria on most recent UA patient has mild renal disease, given medical history has low risk of developing ESRD requiring dialysis- ok for midline placement. Discussed with Dr Moody. Plan 03/27: feels latuda 120 has been helpful. however, remains depressed. add wellbutrin XL 150 daily for depression, plan to increase to 300 mg daily in 3 days. may also consider ECT due to lack of improvement despite numerous recent hospitalizations + lethality of suicide attempts + recent self-abnegating behaviors. 03/28: no change in presentation, no requests or complaints. started wellbutrin 150 today. continue current mgmt 03/29/25: Slept well, no issues with appetite. Observed out on the unit, attended groups, engaging. Reports depression and 03/21, denies anxiety. Constricted affect, congruent with mood. Denies safety concerns. Compliant with medications. Denies side effects from Wellbutrin. Continue to encourage groups. 03/30/25: Patient slept for 6 hours, was medication compliant. He attended 2 groups yesterday, however today he is more isolated, in bed a lot more time, declines a couple groups. Reports depressed but no anxiety, flat affect, depressed, but cooperative during one-to-one assessment. He is receptive with the plan of Wellbutrin increased up to 300 mg for depression. Reports passive SI, denies plan or intention. Denies other safety concerns. Encourage patient to go to groups and shower daily. Increase Wellbutrin XL to 300 mg daily for depression. He reported that he has bipolar type II. 03/31: Laying in bed. keeping to self. showered. patient reports feeling depressed ; pt stated, I'm not having a good day. I don't want to do anything . flat affect. denies SI/HI/VH/AH. Per nursing, slept 8 hours. encouraged to attend groups. continue current tx plan. 04/01/25: Patient slept for 8 hours, poor meal intake yesterday but was medication compliant. Denies side effects. When asked about if he has poor appetite as he ate only 50 of breakfast, and 25 for lunch and not eating dinner, he said because I did not do the menu, so I got what I do not like . He shower yesterday, continued to reports depression 03/21. Denied anxiety. He does not feel any difference from Wellbutrin 150 when and when it was increased up to 300 mg. Denies SI/SIB/HI/AVH, isolative self, he plans to attend groups today. This provider spoke with patient in length regarding medication trials. Per his report, has been trying so many antidepressants they just do not work, and continued to be depressed. Some of them are Zoloft, Paxil, Effexor, Celexa, Prozac, Cymbalta, Lexapro. He also having history of taking Zyprexa more than 20 years ago due to hearing voices. Then the voices was calm. He never has a take it again after. History of Abilify but not sure if it is working as he can not recall. Regarding ADLs: He said that he had food at the [facility] twice a day, but he is not showering for many days despite the fact that staff asked him to do so I just do not care about being clean . Reports very low energy, low motivation, been increased suicidal thoughts and depression. He used to love music and reading but not interested in doing anything like that anymore. Reported that he had gastric sleeve surgery back in August 2023 which he lost 230 lb. He weight 447 lb prior to the surgery. He identified that after the surgery he has been more depressed slowly over months. There was a time that he wanted to starve myself so I can when asked is that you that he has stopped eating at home. He also identified that he feel more depressed after surgery as he is not able to over eating like he did before. Family mental health illnesses: Reports that who both of his parents was depressed. Mom 11 years ago. 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 History of ECTs: Reports he had history of ECTs in 2010 when he was at in [facility].He felt worse after the treatment everything seems like a dream . He clarified that immediately after the treatment he feel that way which could be a side effects of ECT but not permanent. Educate patient on possible side effects ECTs. Patient denies having seizure during ECTs treatment, no seizure history no cardiac conditions/disease history. Reports history of hypertension, but not anymore. He also has been admitted to different hospitals for psychiatric admissions in the past couple of months. Reports staying at [facility] in December for a month. [facility] in the area names [facility]) in October for another month. Per email from his OP team- clinical director at [facility], they also express concerns of patient's conditions. It is noted that their concerns are very consistent with patient' report here on the unit. He also has been admitted to different hospitals for psychiatric admissions in the past couple of months. Reports staying at [facility] in December for a month. [facility] in the area names [facility]) in October for another month. Per email from his OP team- clinical director at [facility], they also express concerns of patient's conditions. It is noted that their concerns are very consistent with patient' report here on the unit. Alfredito has been in and out on inpatient level of care since October of this year, I believe every month, for a majority of the time. He was recently discharged from [facility] after a 1 month stay and within two hours of returning home wanted to return to the hospital, saying he was unwell, and within one day was sectioned by [facility], which is how he ended up with you now. He has been coming home and intentionally starving himself, even not eating for up to 1 week. We have known Alfredito for years and since this started in October, we have seen no significant improvement in his mental health or a return to baseline. In fact, we are observing his case as consistent with failure to thrive. We have been asking for him to be inpatient at [facility] or with you at [facility] for some time in order for him to be potentially considered for ECT level of treatment, if deemed appropriate. Multiple medication trials failture to target depressive symptoms. He will be a good candidate to get trial ECT treatment in combination with current medication regimens. Patient also agrees with the plan. We would start the treatment as soon as possible. Will discuss the case with in house psychiatrist-Dr. Ward to prepare for ECT treatment. Hope to start early next week. 04/02: Laying in bed. keeping to self. Patient continues to report feeling depressed; pt stated, I feel about the same. I spoke with the other provider and agreed to do ECT . He reports sleeping well. denies SI/HI/VH/AH. Encouraged to attend groups and shower. Continue current tx plan. 04/03: no changes- just started wellbutrin 04/04: no changes 04/05/25: report anxiety a 2-10/19 but still 03/21 for depression. No change since started Wellbutrin. He agrees to get Wellbutrin up to 450mg daily for depression. Isolative in room, staring up to the ceiling. Discuss with patient of option to start on Intuniv for severe depression. Patient declines it at this current time but agree to see Welbutrin increased would be helpful. He agrees with ECT. Encourage groups, he says he was at art group out to dinning area but there are too much so he went back to his room. Report not many groups offered over the weekends. 04/06/25: Patient slept for 6 hours, have a sleep study done last night. Reported that he did not sleep well. Appetite is okay. Mood is depressed 03/21, denies anxiety today. Denies suicidal thoughts, but reports he has passive SI yesterday intrusive, just do not Wanna live anymore . Denies hallucinations. Address with patient of why he having bowel movement in the shower. He said it is just one episode. Reports he feel constipated. Agree with Colace. He also inform regarding the ECT which was approved by the insurance. He compliant with medication, however reports he has not feeling any difference in terms of depression at since started on Wellbutrin. Encourage groups attendance. Observe him later on during the day reading at a table in dining area. Colace 100mg BID for constipation. ECT consult placed: Patient may be seen by tomorrow by Dr. Ward. Procedure done preparing for the ECT: Head CT scan negative, EKG normal sinus rhythm, Incomplete right bundle branch block. Borderline ECG_ no change when compare to previous EKG. Unremarkable CBC with diff. 04/07/25: Per hospitalist note: ECT risk stratification Patient without previous problems with anesthesia, has previously undergone ECT RCRI 0 points, no further cardiac workup or treatment indicated at this time EKG showed QT interval WNL, no evidence of ischemic changes Based on stated PMH, HPI, and physical exam, there are no apparent medical contraindications to the planned procedure. Patient is complaining of pelvic discomfort and constipation. We will add therapy with Senokot, MiraLax and obtain urinalysis to assess for urinary tract infection. Continue treatment with atorvastatin and aspirin for history of stroke and hyperlipidemia. 04/07/25: Patient compliant with medication, reports due to the pain abdominal, he could not sleep well last night. Continued to reports depressions 8/10, anxiety 4/10 today related to the pain. Denies suicidal thoughts or voices, isolated. Shower yesterday. Review with patient test need to be done prior to having ECT. Patient met with Dr. Ward and hospitalist for ECT clearance. Due to the pain, constipated, more laxative ordered today. Also UA other by hospitalist to rule out any infection. He is flat, low energy, low motivation, withdrawal, in room mostly, but come out to other rooms to talk to the providers 04/08/25: Patient slept for 8 hours, compliant with medications, denies side effect. Met with him in his room, reported that he slept better last night, having good bowel movement, denies diarrhea is. Informed him regarding the labs work/and UA that was negative to rule out UTI. Denies pain. Explained to patient regarding pre ECT procedures/test to prepare for the day that he going to start. We will start ECT on Saturday. Per Dr. Ward, we will taper down on Latuda, start him on Modafinil low dose to help with severe depression. Continued to reports moderate to severe depression. Denies suicidal thoughts or hallucinations. 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 He denied any significant or excessive drug exposure. I do not find any focal lesion, acute or chronic, suggestive of stroke. There was no contraindication to treatment with ECT. Otherwise treatment of this condition is supportive, symptomatic and conservative Taper down on Latuda from 120 down to 100 mg daily at 17:00 for mood. Start on Modefinil 100ng daily for severe depression, low energy, poor concentration, poor motivation. ECT will be scheduled next week on Saturday. We will received treatment for Saturday/Saturday and Saturday. 04/09/25: Patient denies pain, normal bowel movement, slept well and compliant with medications. Denies side effects. Denies suicidal thoughts or hallucinations but reports mild on anxiety and moderate to severe depression. Patient appeared to be disheveled. Encourage patient to be out of bed in attended to groups included OT groups which observe he is visible in day room after the conversation. The OT will do the [place] for pre ECT next week on Saturday prior the ECT. He started modafinil 50 mg this morning. Indication and side effects explained to patient. Patient is receptive with the plan. Correction: Modefinill 50mg daily. MOCA scheduled next week prior to ECT. 04/10:Laying in bed most of morning. Patient continues to report feeling depressed. He reports looking forward to ECT; pt stated, I think it will be a positive step to get ECT . denies SI/HI/VH/AH. Encouraged to get out of bed. Continue tx plan 04/11: Per nursing, pt did not get out of bed yesterday. Observed laying in bed this morning; encouraged to attend groups and shower. Patient continues to report feeling depressed. denies SI/HI/VH/AH. Encouraged to get out of bed. Continue tx plan. 04/12: continue current tx plan 04/13: stably depressed. PMR. start ECT tomorrow, otherwise continue current mgmt. NPO past MN. 04/14/25: got his first ECT treatment this afternoon. Patient slept for 6 hours, was medication compliant. However, this morning due to the delay of the ECT treatment, he was not happy about the delay into the afternoon. He appeared to be frustrated, irritable, and not cooperative with this provider I do not want to talk to anyone . I am done talking . I do not care when asked his last bowel movement. Per nursing, patient denies suicidal thoughts, other safety concerns. Reports he has no bowel movement x4 days. Medication this morning was held until after the ECT. He also was given citrate magnesium x1. Pending effect. 04/15: made bowel movement. ECT #2 tomorrow. no change in mood or presentation as of today. T/C increasing modafanil to 200 mg sometime next week. 04/16: completed ECT without incident. no FLOWERS today. no change in presentation otherwise. continue current mgmt. ECT #3 saturday. 04/17/2025: No changes. ECT # 3 Saturday04/19/202504/18: no changes 04/19: completed ECT #3 today. no FLOWERS, no change in presentation, no change in mood. continue current mgmt. T/C modafanil increase. 04/20: mood starting to improve. laughed, affect brighter and more flexible. ECT tomorrow, NPO after midnight. continue current mgmt otherwise. 04/21: irritable at afternoon ECT. short today. continue current mgmt. 04/22: not irritable, appears depressed, says mood is unchanged. ECT tomorrow. continue current mgmt. strongly consider increase in modafanil dosing. 04/23/2025: Patient seen ECT completed bilaterally. Patient with markedly poor ADLs almost catatonic like allowing himself to be covered in feces not showering or caring for himself. Change ECT to 0.25 would follow-up on response to bilateral treatment if to withdrawn would may be secondary to bilateral and might consider return to right unilateral. Wellbutrin lowered to 300 mg modafinil was started at 100 mg can consider increase to 150 mg targeting apathy lethargy. Patient started on lorazepam 1 mg p.o. t.i.d. had test doses and seemed significantly improved with more fluid speech and increase range of affect hold lorazepam night prior to ECT 04/24/25: Patient slept for 8 hours, no appetite issues. Denies SI/SIB/HI/AVH. Report anxiety a 2/10 and anxiety an 8/10 which he says he does not feel much different yet from ECT. He denies short term memory. He denies FLOWERS or tireness now but says shortly after ECT he had FLOWERS from yesterday which has been gone. He reports normal BM which laxative was held yesterday. Observed patient spent couple hours in dinning areas, eating out in activity room and spent time watching TV. Nursing also reports patient attended group in the art room as well. He also showered yesterday. He is visible, but quiet keep to self, flat affect, depressed mood. Slightly improvement compare to last visit that this provider saw him about 1-2 weeks ago. Ativan started yesterday which seem to have some effects. 04/25/25: Patient slept for 8 hours, compliant with medications, denies side effects. Deny feeling tired on Ativan. Per nursing patient have incident of incontinence of feces yesterday. Therefore Colace and MiraLax and senna has been held. Notes on to hold when has loose stools. Patient denies safety concerns. Reported the same anxiety and depression level. He is more in bed today compared to yesterday but was out for meals. Flat affect, fair eye contact, resting in room. Attended no groups. No changes in terms of mental status. May have ECT on Saturday morning. 04/26: in bed after ECT. flat, withdrawn, slowed, soft. states his mood remains the same as before, no better and no worse. agreeable to increase modafanil to 150 mg. no apparent cognitive or memory deficits. 04/27: perhaps less slowed than recently. hold ativan this afternoon and overnight. NPO past MN. continue bifrontal ECT in the morning. 04/28: faster and more flexible affect. feels he is improving. decrease ativan from 1 mg TID to 0.5 mg TID. otherwise continue current mgmt. 04/29: as for yesterday. continue current mgmt. hold ativan after 3, NPO after MN. ECT in the morning. 04/30: ECT today uneventful. increase modafanil to 200 tomorrow. DC ativan after saturday morning dose. ECT saturday. NPO past MN saturday. otherwise continue current mgmt. 05/01: Continue current management and treatment plan. 05/02: continue current management and treatment plan. 05/03: ECT #9 completed uneventfully this morning. mood remains improved but pt still spending much of the day in bed with depressive facies. continue current mgmt. 05/04: appears a bit brighter, awake this morning. ECT #10 tomorrow. continue current mgmt. 05/05: poorer hygiene, not showering. reporting mood trending down again. open to increasing modafanil. continue current mgmt for now. 05/06: reports he showered and mood somewhat improved. amenable to increase modafanil to 300 mg as of tomorrow. ECT tomorrow. NPO p MN. 05/07: ECT #10 completed. mood trending better, more expressive. continue current mgmt. 05/08: mood improved, affective range improved. continue current mgmt. 05/09: mood remains improved, affect brighter. ECT tomorrow. continue current mgmt. 05/10: ECT #11 completed. Mood continues to improve. Will continue current med regimen/tx plan for now. 05/11: ECT #12 scheduled for tomorrow. Otherwise continue current tx plan 05/12: Minimal benefit w/ 12 ECT tx & Latuda 120 mg. Will hold off on further ECT for now and taper off Latuda due to lack of significant benefit. 05/13: Pt seems to have regressed somewhat based on his self-report and my review of his chart. 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 Untreated sleep apnea is less likely to contribute to pt's presentation based on sleep study from Mar 2025 following signifiant [facility] s/p gastric sleeve. Per [facility] neuro consult notes, pt has had memory impairment since the CVA in 2019. 05/14: Pt is visible in milieu this am. Switched to bupropion IR this am. Will d/c Latuda 20 mg due to minimal benefit at max dose. Will defer further ECT for now. 05/16/2025: No changes. Noted ECT being deferred 05/17/25: Pt remains signif depressed. affect is a bit more reactive than t/w's last encounter with him on 05/14. Will titrate bupropion IR from 75 mg bid to 100 mg bid. Per my discussion w/ Dr. Ward, pt had responded positively to lorazepam earlier in his admission. Will start on .5 mg tid for now. Will likely schedule ECT for Saturday- discussed with Dr. Ward. Patient educated on: medication risk/benefits and ECT Informed Consent: understands Reason for continued inpatient stay Substantial Risk for: harm to self, inability to function and med/psych decompensation Time Spent With Patient Time: Total time managing care of this patient today _45___ minutes.
[2025-05-17 19:28] VITALS: BP 133/62; PULSE 72; RESP 18; TEMP 36.5; O2SAT 100
[2025-05-18] MEDS: 0.9 % Sodium Chloride Flush 10 ML SYRINGE IVFLUSH ×3 (00:21→15:46)
[2025-05-18 07:37] VITALS: BP 123/75; PULSE 62; RESP 18; TEMP 36.8; O2SAT 99
[2025-05-18] MEDS: Aspirin Enteric Coated 81 MG TABLET.DR PO (08:25)
[2025-05-18 20:00] VITALS: BP 128/73; PULSE 70; RESP 16; TEMP 36.8; O2SAT 99
[2025-05-19] MEDS: 0.9 % Sodium Chloride Flush 10 ML SYRINGE IVFLUSH ×3 (00:18→15:09)
--- NOTE | 2025-05-19 00:48 | PC.NURSE ---
IV/center line access dressing was cleaned and changed by a geological specialist nurse kenyetta. Line flushed with N/S 10mls.
[2025-05-19 08:00] VITALS: BP 108/71; PULSE 64; RESP 16; TEMP 36.9; O2SAT 99
[2025-05-19] MEDS: Aspirin Enteric Coated 81 MG TABLET.DR PO (09:14)
--- NOTE | 2025-05-19 09:41 | P.PNPSI_ITS ---
Subjective Subjective Date of Service: 05/19/25 Reason For Visit: SI depression Subjective Notes: Conditional Voluntary Interim History: Chart reviewed, case discussed in team Met w/ pt in his room, where he was lying in bed awake. He reports feeling better and denies having SI for the past few days at least. I encouraged him to attend groups and he agreed to go tomorrow. I was unable to get pt on the schedule for ECT today. He states that it has been helpful and would like to have another tx on Saturday but also states that he feels like he is around his baseline. recent med changes- started lorazepam .5 mg tid on evening of 05/17 Switched from bupropion XL to bupropion IR due to previous gastric sleeve surg and likely poor absorption of XL formulation. IR titrated to 100 mg bid on 05/18 Medication Compliance: Yes Side effects from medications: No Attending Groups: No Mental Status Exam Mental Status Exam Narrative: Appearance: Casually dressed. Grooming/hygiene wnl. Good eye contact Attitude:Cooperative Speech: Paucity of spontaneous speech, otherwise wnl Motor activity: Calm and without any tics, tremors or dyskinesias. Mood: as noted above Affect: blunted Thought process: goal directed Thought content: Denies SI Perception: Denies AH/VH and does not appear to respond to internal stimuli Insight: fair Judgment: fair Diagnostics Vital Signs (24Hr): Vital Signs - 24 hr 05/18/25 20:00 05/19/25 08:00 Temperature 98.3 F 98.5 F Pulse Rate 70 64 Respiratory Rate 16 16 Blood Pressure 128/73 108/71 Pulse Oximetry 99 99 Oxygen Delivery Method Room Air Room Air BMI result Body Mass Index 32.2 Labs 04/23/25 10:35 04/23/25 10:35 Imaging Radiology Impressions: ITS Impressions Head CT 04/06/25 13:54 IMPRESSION: No acute intracranial hemorrhage. Bifrontal bitemporal lobes atrophy. Electronically signed by: Roque Guillen MD 04/06/2025 02:15 PM EDT Medications Medications Current Medications Acetaminophen (Acetaminophen 325 Mg Tablet) 650 mg PO Q6H PRN PRN Reason: Headache/Pain, Scale 1-10 Last Admin: 04/14/25 20:25 Dose: 650 mg Al Hydroxide/Mg Hydroxide (Magnesium Hydrox/Alum Hydrox 30 Ml Oral.Susp) 30 ml PO Q6H PRN PRN Reason: Heartburn/Nausea Aspirin (Aspirin Enteric Coated 81 Mg Tablet.Dr) 81 mg PO DAILY [facility] Last Admin: 05/19/25 09:14 Dose: 81 mg Atorvastatin Calcium (Atorvastatin Calcium 20 Mg Tablet) 20 mg PO BEDTIME [facility] Last Admin: 05/18/25 21:07 Dose: 20 mg Bisacodyl (Bisacodyl 5 Mg Tablet.) 10 mg PO DAILY PRN PRN Reason: severe Constipation Last Admin: 04/20/25 08:57 Dose: 10 mg Bupropion HCl (Bupropion Hcl 100 Mg Tablet) 100 mg PO BID@0900,1700 [facility] Last Admin: 05/19/25 09:14 Dose: 100 mg Docusate Sodium (Docusate Sodium 100 Mg Capsule) 100 mg PO BID PRN PRN Reason: constipation Hydroxyzine HCl (Hydroxyzine Hcl 25 Mg Tablet) 25 mg PO Q6H PRN PRN Reason: mild anxiety Last Admin: 03/26/25 23:24 Dose: 25 mg Lorazepam (Lorazepam 0.5 Mg Tablet) 0.5 mg PO TID [facility] Last Admin: 05/19/25 09:14 Dose: 0.5 mg Magnesium Hydroxide (Milk Of Magnesia 30 Ml Oral.Susp) 30 ml PO DAILY PRN PRN Reason: Constipation Last Admin: 04/17/25 10:24 Dose: 30 ml Modafinil (Modafinil 100 Mg Tablet) 300 mg PO DAILY [facility] Last Admin: 05/19/25 09:14 Dose: 300 mg Naloxone HCl (Naloxone Hcl 0.4 Mg/Ml Vial) 0.04 mg IVPUSH Q5M PRN PRN Reason: Excessive sedation or RR < 8 Naloxone HCl (Naloxone Hcl 0.4 Mg/Ml Vial) 0.04 mg IVPUSH Q5M PRN PRN Reason: Excessive sedation or RR < 8 Nicotine (Nicotine 21 Mg Patch.Td24) 21 mg TRANSDERMA DAILY PRN PRN Reason: nicotine craving Nicotine Polacrilex (Nicotine Polacrilex 2 Mg Gum) 2 mg BUCCAL Q2H PRN PRN Reason: Nicotine Cravings Olanzapine (Olanzapine 5 Mg Tablet) 5 mg PO BID PRN PRN Reason: agitation Ondansetron HCl (Ondansetron Odt 8 Mg Tab.Rapdis) 8 mg TRANSLINGU Q8H PRN PRN Reason: Nausea and Vomiting Polyethylene Glycol (Polyethylene Glycol 3350 17 Gm Powd.Pack) 17 gm PO DAILY PRN PRN Reason: constipation Senna (Sennosides 8.6 Mg Tablet) 17.2 mg PO BEDTIME PRN PRN Reason: Constipation Sodium Chloride (0.9 % Sodium Chloride Flush 10 Ml Syringe) 10 ml IVFLUSH QSHIFT JENNIFER Last Admin: 05/19/25 09:06 Dose: 10 ml Trazodone HCl (Trazodone Hcl 50 Mg Tablet) 50 mg PO BEDTIME MRX1 PRN PRN Reason: Insomnia Last Admin: 04/05/25 23:14 Dose: 50 mg Allergies Allergies Allergy/AdvReac Type Severity Reaction Status Date / Time pumpkin Allergy Unknown Unknown Verified 12/24/24 12:26 Assessment & Plan Assessment & Plan (1) Depression: Qualifiers: Depression Type: unspecified Qualified Code(s): F32.A - Depression, unspecified Status: Acute Code(s): F32.A - Depression, unspecified (2) CKD (chronic kidney disease): Qualifiers: Chronic kidney disease stage: stage 3 (moderate) Chronic kidney disease stage 3 subtype: stage 3a (GFR 45-59) Qualified Code(s): N18.31 - Chronic kidney disease, stage 3a Status: Acute Code(s): N18.9 - Chronic kidney disease, unspecified Assessment and Plan: Patient likely has some mild chronic kidney disease, 3a no proteinuria on most recent UA patient has mild renal disease, given medical history has low risk of developing ESRD requiring dialysis- ok for midline placement. Discussed with Dr Moody. (3) CVA (cerebral vascular accident): Status: Acute Code(s): I63.9 - Cerebral infarction, unspecified Plan 03/27: feels latuda 120 has been helpful. however, remains depressed. add wellbutrin XL 150 daily for depression, plan to increase to 300 mg daily in 3 days. may also consider ECT due to lack of improvement despite numerous recent hospitalizations + lethality of suicide attempts + recent self-abnegating behaviors. 03/28: no change in presentation, no requests or complaints. started wellbutrin 150 today. continue current mgmt 03/29/25: Slept well, no issues with appetite. Observed out on the unit, attended groups, engaging. Reports depression and 03/21, denies anxiety. Constricted affect, congruent with mood. Denies safety concerns. Compliant with medications. Denies side effects from Wellbutrin. Continue to encourage groups. 03/30/25: Patient slept for 6 hours, was medication compliant. He attended 2 groups yesterday, however today he is more isolated, in bed a lot more time, declines a couple groups. Reports depressed but no anxiety, flat affect, depressed, but cooperative during one-to-one assessment. He is receptive with the plan of Wellbutrin increased up to 300 mg for depression. Reports passive SI, denies plan or intention. Denies other safety concerns. Encourage patient to go to groups and shower daily. Increase Wellbutrin XL to 300 mg daily for depression. He reported that he has bipolar type II. 03/31: Laying in bed. keeping to self. showered. patient reports feeling depressed ; pt stated, I'm not having a good day. I don't want to do anything . flat affect. denies SI/HI/VH/AH. Per nursing, slept 8 hours. encouraged to attend groups. continue current tx plan. 04/01/25: Patient slept for 8 hours, poor meal intake yesterday but was medication compliant. Denies side effects. When asked about if he has poor appetite as he ate only 50 of breakfast, and 25 for lunch and not eating dinner, he said because I did not do the menu, so I got what I do not like . He shower yesterday, continued to reports depression 03/21. Denied anxiety. He does not feel any difference from Wellbutrin 150 when and when it was increased up to 300 mg. Denies SI/SIB/HI/AVH, isolative self, he plans to attend groups today. This provider spoke with patient in length regarding medication trials. Per his report, has been trying so many antidepressants they just do not work, and continued to be depressed. Some of them are Zoloft, Paxil, Effexor, Celexa, Prozac, Cymbalta, Lexapro. He also having history of taking Zyprexa more than 20 years ago due to hearing voices. Then the voices was calm. He never has a take it again after. History of Abilify but not sure if it is working as he can not recall. Regarding ADLs: He said that he had food at the [facility] twice a day, but he is not showering for many days despite the fact that staff asked him to do so I just do not care about being clean . Reports very low energy, low motivation, been increased suicidal thoughts and depression. He used to love music and reading but not interested in doing anything like that anymore. Reported that he had gastric sleeve surgery back in August 2023 which he lost 230 lb. He weight 447 lb prior to the surgery. He identified that after the surgery he has been more depressed slowly over months. There was a time that he wanted to starve myself so I can when asked is that you that he has stopped eating at home. He also identified that he feel more depressed after surgery as he is not able to over eating like he did before. Family mental health illnesses: Reports that who both of his parents was depressed. Mom 11 years ago. 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 History of ECTs: Reports he had history of ECTs in 2010 when he was at in [facility].He felt worse after the treatment everything seems like a dream . He clarified that immediately after the treatment he feel that way which could be a side effects of ECT but not permanent. Educate patient on possible side effects ECTs. Patient denies having seizure during ECTs treatment, no seizure history no cardiac conditions/disease history. Reports history of hypertension, but not anymore. He also has been admitted to different hospitals for psychiatric admissions in the past couple of months. Reports staying at [facility] in December for a month. [facility] in the area names [facility]) in October for another month. Per email from his OP team- clinical director at [facility], they also express concerns of patient's conditions. It is noted that their concerns are very consistent with patient' report here on the unit. He also has been admitted to different hospitals for psychiatric admissions in the past couple of months. Reports staying at [facility] in December for a month. [facility] in the area names [facility]) in October for another month. Per email from his OP team- clinical director at [facility], they also express concerns of patient's conditions. It is noted that their concerns are very consistent with patient' report here on the unit. Alfredito has been in and out on inpatient level of care since October of this year, I believe every month, for a majority of the time. He was recently discharged from [facility] after a 1 month stay and within two hours of returning home wanted to return to the hospital, saying he was unwell, and within one day was sectioned by [facility], which is how he ended up with you now. He has been coming home and intentionally starving himself, even not eating for up to 1 week. We have known Alfredito for years and since this started in October, we have seen no significant improvement in his mental health or a return to baseline. In fact, we are observing his case as consistent with failure to thrive. We have been asking for him to be inpatient at [facility] or with you at [facility] for some time in order for him to be potentially considered for ECT level of treatment, if deemed appropriate. Multiple medication trials failture to target depressive symptoms. He will be a good candidate to get trial ECT treatment in combination with current medication regimens. Patient also agrees with the plan. We would start the treatment as soon as possible. Will discuss the case with in house psychiatrist-Dr. Ward to prepare for ECT treatment. Hope to start early next week. 04/02: Laying in bed. keeping to self. Patient continues to report feeling depressed; pt stated, I feel about the same. I spoke with the other provider and agreed to do ECT . He reports sleeping well. denies SI/HI/VH/AH. Encouraged to attend groups and shower. Continue current tx plan. 04/03: no changes- just started wellbutrin 04/04: no changes 04/05/25: report anxiety a 2-3/10 but still 8/10 for depression. No change since started Wellbutrin. He agrees to get Wellbutrin up to 450mg daily for depression. Isolative in room, staring up to the ceiling. Discuss with patient of option to start on Intuniv for severe depression. Patient declines it at this current time but agree to see Welbutrin increased would be helpful. He agrees with ECT. Encourage groups, he says he was at art group out to dinning area but there are too much so he went back to his room. Report not many groups offered over the weekends. 04/06/25: Patient slept for 6 hours, have a sleep study done last night. Reported that he did not sleep well. Appetite is okay. Mood is depressed 8/10, denies anxiety today. Denies suicidal thoughts, but reports he has passive SI yesterday intrusive, just do not Wanna live anymore . Denies hallucinations. Address with patient of why he having bowel movement in the shower. He said it is just one episode. Reports he feel constipated. Agree with Colace. He also inform regarding the ECT which was approved by the insurance. He compliant with medication, however reports he has not feeling any difference in terms of depression at since started on Wellbutrin. Encourage groups attendance. Observe him later on during the day reading at a table in dining area. Colace 100mg BID for constipation. ECT consult placed: Patient may be seen by tomorrow by Dr. Ward. Procedure done preparing for the ECT: Head CT scan negative, EKG normal sinus rhythm, Incomplete right bundle branch block. Borderline ECG_ no change when compare to previous EKG. Unremarkable CBC with diff. 04/07/25: Per hospitalist note: ECT risk stratification Patient without previous problems with anesthesia, has previously undergone ECT RCRI 0 points, no further cardiac workup or treatment indicated at this time EKG showed QT interval WNL, no evidence of ischemic changes Based on stated PMH, HPI, and physical exam, there are no apparent medical contraindications to the planned procedure. Patient is complaining of pelvic discomfort and constipation. We will add therapy with Senokot, MiraLax and obtain urinalysis to assess for urinary tract infection. Continue treatment with atorvastatin and aspirin for history of stroke and hyperlipidemia. 04/07/25: Patient compliant with medication, reports due to the pain abdominal, he could not sleep well last night. Continued to reports depressions 8/10, anxiety 4/10 today related to the pain. Denies suicidal thoughts or voices, isolated. Shower yesterday. Review with patient test need to be done prior to having ECT. Patient met with Dr. Ward and hospitalist for ECT clearance. Due to the pain, constipated, more laxative ordered today. Also UA other by hospitalist to rule out any infection. He is flat, low energy, low motivation, withdrawal, in room mostly, but come out to other rooms to talk to the providers 04/08/25: Patient slept for 8 hours, compliant with medications, denies side effect. Met with him in his room, reported that he slept better last night, having good bowel movement, denies diarrhea is. Informed him regarding the labs work/and UA that was negative to rule out UTI. Denies pain. Explained to patient regarding pre ECT procedures/test to prepare for the day that he going to start. We will start ECT on Saturday. Per Dr. Ward, we will taper down on Latuda, start him on Modafinil low dose to help with severe depression. Continued to reports moderate to severe depression. Denies suicidal thoughts or hallucinations. 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 He denied any significant or excessive drug exposure. I do not find any focal lesion, acute or chronic, suggestive of stroke. There was no contraindication to treatment with ECT. Otherwise treatment of this condition is supportive, symptomatic and conservative Taper down on Latuda from 120 down to 100 mg daily at 17:00 for mood. Start on Modefinil 100ng daily for severe depression, low energy, poor concentration, poor motivation. ECT will be scheduled next week on Saturday. We will received treatment for Saturday/Saturday and Saturday. 04/09/25: Patient denies pain, normal bowel movement, slept well and compliant with medications. Denies side effects. Denies suicidal thoughts or hallucinations but reports mild on anxiety and moderate to severe depression. Patient appeared to be disheveled. Encourage patient to be out of bed in attended to groups included OT groups which observe he is visible in day room after the conversation. The OT will do the [place] for pre ECT next week on Saturday prior the ECT. He started modafinil 50 mg this morning. Indication and side effects explained to patient. Patient is receptive with the plan. Correction: Modefinill 50mg daily. MOCA scheduled next week prior to ECT. 04/10:Laying in bed most of morning. Patient continues to report feeling depressed. He reports looking forward to ECT; pt stated, I think it will be a positive step to get ECT . denies SI/HI/VH/AH. Encouraged to get out of bed. Continue tx plan 04/11: Per nursing, pt did not get out of bed yesterday. Observed laying in bed this morning; encouraged to attend groups and shower. Patient continues to report feeling depressed. denies SI/HI/VH/AH. Encouraged to get out of bed. Continue tx plan. 04/12: continue current tx plan 04/13: stably depressed. PMR. start ECT tomorrow, otherwise continue current mgmt. NPO past MN. 04/14/25: got his first ECT treatment this afternoon. Patient slept for 6 hours, was medication compliant. However, this morning due to the delay of the ECT treatment, he was not happy about the delay into the afternoon. He appeared to be frustrated, irritable, and not cooperative with this provider I do not want to talk to anyone . I am done talking . I do not care when asked his last bowel movement. Per nursing, patient denies suicidal thoughts, other safety concerns. Reports he has no bowel movement x4 days. Medication this morning was held until after the ECT. He also was given citrate magnesium x1. Pending effect. 04/15: made bowel movement. ECT #2 tomorrow. no change in mood or presentation as of today. T/C increasing modafanil to 200 mg sometime next week. 04/16: completed ECT without incident. no FLOWERS today. no change in presentation otherwise. continue current mgmt. ECT #3 saturday. 04/17/2025: No changes. ECT # 3 Saturday04/19/202504/18: no changes 04/19: completed ECT #3 today. no FLOWERS, no change in presentation, no change in mood. continue current mgmt. T/C modafanil increase. 04/20: mood starting to improve. laughed, affect brighter and more flexible. ECT tomorrow, NPO after midnight. continue current mgmt otherwise. 04/21: irritable at afternoon ECT. short today. continue current mgmt. 04/22: not irritable, appears depressed, says mood is unchanged. ECT tomorrow. continue current mgmt. strongly consider increase in modafanil dosing. 04/23/2025: Patient seen ECT completed bilaterally. Patient with markedly poor ADLs almost catatonic like allowing himself to be covered in feces not showering or caring for himself. Change ECT to 0.25 would follow-up on response to bilateral treatment if to withdrawn would may be secondary to bilateral and might consider return to right unilateral. Wellbutrin lowered to 300 mg modafinil was started at 100 mg can consider increase to 150 mg targeting apathy lethargy. Patient started on lorazepam 1 mg p.o. t.i.d. had test doses and seemed significantly improved with more fluid speech and increase range of affect hold lorazepam night prior to ECT 04/24/25: Patient slept for 8 hours, no appetite issues. Denies SI/SIB/HI/AVH. Report anxiety a /10 and anxiety an 03/21 which he says he does not feel much different yet from ECT. He denies short term memory. He denies FLOEWRS or tireness now but says shortly after ECT he had FLOWERS from yesterday which has been gone. He reports normal BM which laxative was held yesterday. Observed patient spent couple hours in dinning areas, eating out in activity room and spent time watching TV. Nursing also reports patient attended group in the art room as well. He also showered yesterday. He is visible, but quiet keep to self, flat affect, depressed mood. Slightly improvement compare to last visit that this provider saw him about 1-2 weeks ago. Ativan started yesterday which seem to have some effects. 04/25/25: Patient slept for 8 hours, compliant with medications, denies side effects. Deny feeling tired on Ativan. Per nursing patient have incident of incontinence of feces yesterday. Therefore Colace and MiraLax and senna has been held. Notes on to hold when has loose stools. Patient denies safety concerns. Reported the same anxiety and depression level. He is more in bed today compared to yesterday but was out for meals. Flat affect, fair eye contact, resting in room. Attended no groups. No changes in terms of mental status. May have ECT on Saturday morning. 04/26: in bed after ECT. flat, withdrawn, slowed, soft. states his mood remains the same as before, no better and no worse. agreeable to increase modafanil to 150 mg. no apparent cognitive or memory deficits. 04/27: perhaps less slowed than recently. hold ativan this afternoon and overnight. NPO past MN. continue bifrontal ECT in the morning. 04/28: faster and more flexible affect. feels he is improving. decrease ativan from 1 mg TID to 0.5 mg TID. otherwise continue current mgmt. 04/29: as for yesterday. continue current mgmt. hold ativan after 3, NPO after MN. ECT in the morning. 04/30: ECT today uneventful. increase modafanil to 200 tomorrow. DC ativan after saturday morning dose. ECT saturday. NPO past MN saturday. otherwise continue current mgmt. 05/01: Continue current management and treatment plan. 05/02: continue current management and treatment plan. 05/03: ECT #9 completed uneventfully this morning. mood remains improved but pt still spending much of the day in bed with depressive facies. continue current mgmt. 05/04: appears a bit brighter, awake this morning. ECT #10 tomorrow. continue current mgmt. 05/05: poorer hygiene, not showering. reporting mood trending down again. open to increasing modafanil. continue current mgmt for now. 05/06: reports he showered and mood somewhat improved. amenable to increase modafanil to 300 mg as of tomorrow. ECT tomorrow. NPO p MN. 05/07: ECT #10 completed. mood trending better, more expressive. continue current mgmt. 05/08: mood improved, affective range improved. continue current mgmt. 05/09: mood remains improved, affect brighter. ECT tomorrow. continue current mgmt. 05/10: ECT #11 completed. Mood continues to improve. Will continue current med regimen/tx plan for now. 05/11: ECT #12 scheduled for tomorrow. Otherwise continue current tx plan 05/12: Minimal benefit w/ 12 ECT tx & Latuda 120 mg. Will hold off on further ECT for now and taper off Latuda due to lack of significant benefit. 05/13: Pt seems to have regressed somewhat based on his self-report and my review of his chart. 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 Untreated sleep apnea is less likely to contribute to pt's presentation based on sleep study from Mar 2025 following signifiant WL s/p gastric sleeve. Per [facility] neuro consult notes, pt has had memory impairment since the CVA in 2019. 05/14: Pt is visible in milieu this am. Switched to bupropion IR this am. Will d/c Latuda 20 mg due to minimal benefit at max dose. Will defer further ECT for now. 05/16/2025: No changes. Noted ECT being deferred 05/17/25: Pt remains signif depressed. affect is a bit more reactive than t/w's last encounter with him on 05/14. Will titrate bupropion IR from 75 mg bid to 100 mg bid. Per my discussion w/ Dr. Ward, pt had responded positively to lorazepam earlier in his admission. Will start on .5 mg tid for now. Will likely schedule ECT for Saturday- discussed with Dr. Ward. 05/18/25: Continue current med regimen/tx plan. Unable to get pt on list for ECT for tomorrow but will consider for Sat, 05/2105/19/25: Pt notes improvement in mood, denies SI. Continue currnt med regimen/tx plan Patient educated on: medication risk/benefits and ECT Informed Consent: understands Reason for continued inpatient stay Substantial Risk for: inability to function and med/psych decompensation Time Spent With Patient Time: Total time managing care of this patient today __25__ minutes.
[2025-05-19 20:00] VITALS: BP 123/72; PULSE 86; RESP 16; TEMP 36.4; O2SAT 97
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
[2025-05-20] MEDS: 0.9 % Sodium Chloride Flush 10 ML SYRINGE IVFLUSH ×3 (00:07→15:49)
[2025-05-20 07:20] VITALS: BP 106/70; PULSE 65; RESP 12; TEMP 36.8; O2SAT 97
[2025-05-20] MEDS: Aspirin Enteric Coated 81 MG TABLET.DR PO (08:35)
--- NOTE | 2025-05-20 09:42 | HO.PSYCHPN ---
Subjective Subjective Date of Service: 05/20/25 Reason For Visit: SI depression Interim History: Chart reviewed, case discussed in team Pt reports that he attended 1 grp today on relationships (boundaries), which he found to be helpful. He reports that his mood is 'better', denies SI. Denies any med SE He is still advocating for ECT for tomorrow, as he feels like it helped. Reportedly slept well and he's been eating his meals Medication Compliance: Yes Side effects from medications: No Attending Groups: Intermittent Mental Status Exam Mental Status Exam Narrative: Appearance: lying in bed. malodorous (smells like feces). wearing hospital thai, disheveled Attitude: Cooperative Speech: A bit more talkative today Motor activity: Calm and without any tics, tremors or dyskinesias. Mood: as noted above Affect: appropriate, mild reactivity (improved) Thought process: goal directed Thought content: Denies SI Perception: does not appear to respond to internal stimuli Insight: fair Judgment: fair Diagnostics Vital Signs (24Hr): Vital Signs - 24 hr 05/19/25 20:00 05/20/25 07:20 Temperature 97.6 F 98.3 F Pulse Rate 86 65 Respiratory Rate 16 12 Blood Pressure 123/72 106/70 Pulse Oximetry 97 97 Oxygen Delivery Method Room Air Room Air BMI result Body Mass Index 32.2 Labs 04/23/25 10:35 04/23/25 10:35 Imaging Radiology Impressions: ITS Impressions Head CT 04/06/25 13:54 IMPRESSION: No acute intracranial hemorrhage. Bifrontal bitemporal lobes atrophy. Electronically signed by: Roque Guillen MD 04/06/2025 02:15 PM EDT Medications Medications Current Medications Acetaminophen (Acetaminophen 325 Mg Tablet) 650 mg PO Q6H PRN PRN Reason: Headache/Pain, Scale 1-10 Last Admin: 04/14/25 20:25 Dose: 650 mg Al Hydroxide/Mg Hydroxide (Magnesium Hydrox/Alum Hydrox 30 Ml Oral.Susp) 30 ml PO Q6H PRN PRN Reason: Heartburn/Nausea Aspirin (Aspirin Enteric Coated 81 Mg Tablet.) 81 mg PO DAILY [facility] Last Admin: 05/20/25 08:35 Dose: 81 mg Atorvastatin Calcium (Atorvastatin Calcium 20 Mg Tablet) 20 mg PO BEDTIME [facility] Last Admin: 05/19/25 21:03 Dose: 20 mg Bisacodyl (Bisacodyl 5 Mg Tablet.Dr) 10 mg PO DAILY PRN PRN Reason: severe Constipation Last Admin: 04/20/25 08:57 Dose: 10 mg Bupropion HCl (Bupropion Hcl 100 Mg Tablet) 100 mg PO BID@0900,1700 [facility] Last Admin: 05/20/25 08:35 Dose: 100 mg Docusate Sodium (Docusate Sodium 100 Mg Capsule) 100 mg PO BID PRN PRN Reason: constipation Hydroxyzine HCl (Hydroxyzine Hcl 25 Mg Tablet) 25 mg PO Q6H PRN PRN Reason: mild anxiety Last Admin: 03/26/25 23:24 Dose: 25 mg Lorazepam (Lorazepam 0.5 Mg Tablet) 0.5 mg PO TID [facility] Last Admin: 05/20/25 08:35 Dose: 0.5 mg Magnesium Hydroxide (Milk Of Magnesia 30 Ml Oral.Susp) 30 ml PO DAILY PRN PRN Reason: Constipation Last Admin: 04/17/25 10:24 Dose: 30 ml Modafinil (Modafinil 100 Mg Tablet) 300 mg PO DAILY [facility] Last Admin: 05/20/25 08:35 Dose: 300 mg Naloxone HCl (Naloxone Hcl 0.4 Mg/Ml Vial) 0.04 mg IVPUSH Q5M PRN PRN Reason: Excessive sedation or RR < 8 Naloxone HCl (Naloxone Hcl 0.4 Mg/Ml Vial) 0.04 mg IVPUSH Q5M PRN PRN Reason: Excessive sedation or RR < 8 Nicotine (Nicotine 21 Mg Patch.Td24) 21 mg TRANSDERMA DAILY PRN PRN Reason: nicotine craving Nicotine Polacrilex (Nicotine Polacrilex 2 Mg Gum) 2 mg BUCCAL Q2H PRN PRN Reason: Nicotine Cravings Olanzapine (Olanzapine 5 Mg Tablet) 5 mg PO BID PRN PRN Reason: agitation Ondansetron HCl (Ondansetron Odt 8 Mg Tab.Rapdis) 8 mg TRANSLINGU Q8H PRN PRN Reason: Nausea and Vomiting Polyethylene Glycol (Polyethylene Glycol 3350 17 Gm Powd.Pack) 17 gm PO DAILY PRN PRN Reason: constipation Senna (Sennosides 8.6 Mg Tablet) 17.2 mg PO BEDTIME PRN PRN Reason: Constipation Sodium Chloride (0.9 % Sodium Chloride Flush 10 Ml Syringe) 10 ml IVFLUSH QSHIFT JENNIFER Last Admin: 05/20/25 08:36 Dose: 10 ml Trazodone HCl (Trazodone Hcl 50 Mg Tablet) 50 mg PO BEDTIME MRX1 PRN PRN Reason: Insomnia Last Admin: 04/05/25 23:14 Dose: 50 mg Allergies Allergies Allergy/AdvReac Type Severity Reaction Status Date / Time pumpkin Allergy Unknown Unknown Verified 12/24/24 12:26 Assessment & Plan Assessment & Plan (1) Depression: Qualifiers: Depression Type: unspecified Qualified Code(s): F32.A - Depression, unspecified Status: Acute Code(s): F32.A - Depression, unspecified (2) CKD (chronic kidney disease): Qualifiers: Chronic kidney disease stage: stage 3 (moderate) Chronic kidney disease stage 3 subtype: stage 3a (GFR 45-59) Qualified Code(s): N18.31 - Chronic kidney disease, stage 3a Status: Acute Code(s): N18.9 - Chronic kidney disease, unspecified Assessment and Plan: Patient likely has some mild chronic kidney disease, 3a no proteinuria on most recent UA patient has mild renal disease, given medical history has low risk of developing ESRD requiring dialysis- ok for midline placement. Discussed with Dr Moody. (3) CVA (cerebral vascular accident): Status: Acute Code(s): I63.9 - Cerebral infarction, unspecified Plan 03/27: feels latuda 120 has been helpful. however, remains depressed. add wellbutrin XL 150 daily for depression, plan to increase to 300 mg daily in 3 days. may also consider ECT due to lack of improvement despite numerous recent hospitalizations + lethality of suicide attempts + recent self-abnegating behaviors. 03/28: no change in presentation, no requests or complaints. started wellbutrin 150 today. continue current mgmt 03/29/25: Slept well, no issues with appetite. Observed out on the unit, attended groups, engaging. Reports depression and 03/21, denies anxiety. Constricted affect, congruent with mood. Denies safety concerns. Compliant with medications. Denies side effects from Wellbutrin. Continue to encourage groups. 03/30/25: Patient slept for 6 hours, was medication compliant. He attended 2 groups yesterday, however today he is more isolated, in bed a lot more time, declines a couple groups. Reports depressed but no anxiety, flat affect, depressed, but cooperative during one-to-one assessment. He is receptive with the plan of Wellbutrin increased up to 300 mg for depression. Reports passive SI, denies plan or intention. Denies other safety concerns. Encourage patient to go to groups and shower daily. Increase Wellbutrin XL to 300 mg daily for depression. He reported that he has bipolar type II. 03/31: Laying in bed. keeping to self. showered. patient reports feeling depressed ; pt stated, I'm not having a good day. I don't want to do anything . flat affect. denies SI/HI/VH/AH. Per nursing, slept 8 hours. encouraged to attend groups. continue current tx plan. 04/01/25: Patient slept for 8 hours, poor meal intake yesterday but was medication compliant. Denies side effects. When asked about if he has poor appetite as he ate only 50 of breakfast, and 25 for lunch and not eating dinner, he said because I did not do the menu, so I got what I do not like . He shower yesterday, continued to reports depression 03/21. Denied anxiety. He does not feel any difference from Wellbutrin 150 when and when it was increased up to 300 mg. Denies SI/SIB/HI/AVH, isolative self, he plans to attend groups today. This provider spoke with patient in length regarding medication trials. Per his report, has been trying so many antidepressants they just do not work, and continued to be depressed. Some of them are Zoloft, Paxil, Effexor, Celexa, Prozac, Cymbalta, Lexapro. He also having history of taking Zyprexa more than 20 years ago due to hearing voices. Then the voices was calm. He never has a take it again after. History of Abilify but not sure if it is working as he can not recall. Regarding ADLs: He said that he had food at the intermediate twice a day, but he is not showering for many days despite the fact that staff asked him to do so I just do not care about being clean . Reports very low energy, low motivation, been increased suicidal thoughts and depression. He used to love music and reading but not interested in doing anything like that anymore. Reported that he had gastric sleeve surgery back in August 2023 which he lost 230 lb. He weight 447 lb prior to the surgery. He identified that after the surgery he has been more depressed slowly over months. There was a time that he wanted to starve myself so I can when asked is that you that he has stopped eating at home. He also identified that he feel more depressed after surgery as he is not able to over eating like he did before. Family mental health illnesses: Reports that who both of his parents was depressed. Mom 11 years ago. 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 History of ECTs: Reports he had history of ECTs in 2010 when he was at in [facility].He felt worse after the treatment everything seems like a dream . He clarified that immediately after the treatment he feel that way which could be a side effects of ECT but not permanent. Educate patient on possible side effects ECTs. Patient denies having seizure during ECTs treatment, no seizure history no cardiac conditions/disease history. Reports history of hypertension, but not anymore. He also has been admitted to different hospitals for psychiatric admissions in the past couple of months. Reports staying at [facility] in December for a month. [facility] in the area names [facility]) in October for another month. Per email from his OP team- clinical director at [facility], they also express concerns of patient's conditions. It is noted that their concerns are very consistent with patient' report here on the unit. He also has been admitted to different hospitals for psychiatric admissions in the past couple of months. Reports staying at [facility] in December for a month. [facility] in the area names [facility]) in October for another month. Per email from his OP team- clinical director at [facility], they also express concerns of patient's conditions. It is noted that their concerns are very consistent with patient' report here on the unit. Alfredito has been in and out on inpatient level of care since October of this year, I believe every month, for a majority of the time. He was recently discharged from [facility] after a 1 month stay and within two hours of returning home wanted to return to the hospital, saying he was unwell, and within one day was sectioned by [facility], which is how he ended up with you now. He has been coming home and intentionally starving himself, even not eating for up to 1 week. We have known Alfredito for years and since this started in October, we have seen no significant improvement in his mental health or a return to baseline. In fact, we are observing his case as consistent with failure to thrive. We have been asking for him to be inpatient at [facility] or with you at [facility] for some time in order for him to be potentially considered for ECT level of treatment, if deemed appropriate. Multiple medication trials failture to target depressive symptoms. He will be a good candidate to get trial ECT treatment in combination with current medication regimens. Patient also agrees with the plan. We would start the treatment as soon as possible. Will discuss the case with in house psychiatrist-Dr. Ward to prepare for ECT treatment. Hope to start early next week. 04/02: Laying in bed. keeping to self. Patient continues to report feeling depressed; pt stated, I feel about the same. I spoke with the other provider and agreed to do ECT . He reports sleeping well. denies SI/HI/VH/AH. Encouraged to attend groups and shower. Continue current tx plan. 04/03: no changes- just started wellbutrin 04/04: no changes 04/05/25: report anxiety a 2-310 but still 03/21 for depression. No change since started Wellbutrin. He agrees to get Wellbutrin up to 450mg daily for depression. Isolative in room, staring up to the ceiling. Discuss with patient of option to start on Intuniv for severe depression. Patient declines it at this current time but agree to see Welbutrin increased would be helpful. He agrees with ECT. Encourage groups, he says he was at art group out to dinning area but there are too much so he went back to his room. Report not many groups offered over the weekends. 04/06/25: Patient slept for 6 hours, have a sleep study done last night. Reported that he did not sleep well. Appetite is okay. Mood is depressed 03/21, denies anxiety today. Denies suicidal thoughts, but reports he has passive SI yesterday intrusive, just do not Wanna live anymore . Denies hallucinations. Address with patient of why he having bowel movement in the shower. He said it is just one episode. Reports he feel constipated. Agree with Colace. He also inform regarding the ECT which was approved by the insurance. He compliant with medication, however reports he has not feeling any difference in terms of depression at since started on Wellbutrin. Encourage groups attendance. Observe him later on during the day reading at a table in dining area. Colace 100mg BID for constipation. ECT consult placed: Patient may be seen by tomorrow by Dr. Ward. Procedure done preparing for the ECT: Head CT scan negative, EKG normal sinus rhythm, Incomplete right bundle branch block. Borderline ECG_ no change when compare to previous EKG. Unremarkable CBC with diff. 04/07/25: Per hospitalist note: ECT risk stratification Patient without previous problems with anesthesia, has previously undergone ECT RCRI 0 points, no further cardiac workup or treatment indicated at this time EKG showed QT interval WNL, no evidence of ischemic changes Based on stated PMH, HPI, and physical exam, there are no apparent medical contraindications to the planned procedure. Patient is complaining of pelvic discomfort and constipation. We will add therapy with Senokot, MiraLax and obtain urinalysis to assess for urinary tract infection. Continue treatment with atorvastatin and aspirin for history of stroke and hyperlipidemia. 04/07/25: Patient compliant with medication, reports due to the pain abdominal, he could not sleep well last night. Continued to reports depressions 8/10, anxiety 4/10 today related to the pain. Denies suicidal thoughts or voices, isolated. Shower yesterday. Review with patient test need to be done prior to having ECT. Patient met with Dr. Ward and hospitalist for ECT clearance. Due to the pain, constipated, more laxative ordered today. Also UA other by hospitalist to rule out any infection. He is flat, low energy, low motivation, withdrawal, in room mostly, but come out to other rooms to talk to the providers 04/08/25: Patient slept for 8 hours, compliant with medications, denies side effect. Met with him in his room, reported that he slept better last night, having good bowel movement, denies diarrhea is. Informed him regarding the labs work/and UA that was negative to rule out UTI. Denies pain. Explained to patient regarding pre ECT procedures/test to prepare for the day that he going to start. We will start ECT on Saturday. Per Dr. Ward, we will taper down on Latuda, start him on Modafinil low dose to help with severe depression. Continued to reports moderate to severe depression. Denies suicidal thoughts or hallucinations. 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 He denied any significant or excessive drug exposure. I do not find any focal lesion, acute or chronic, suggestive of stroke. There was no contraindication to treatment with ECT. Otherwise treatment of this condition is supportive, symptomatic and conservative Taper down on Latuda from 120 down to 100 mg daily at 17:00 for mood. Start on Modefinil 100ng daily for severe depression, low energy, poor concentration, poor motivation. ECT will be scheduled next week on Saturday. We will received treatment for Saturday/Saturday and Saturday. 04/09/25: Patient denies pain, normal bowel movement, slept well and compliant with medications. Denies side effects. Denies suicidal thoughts or hallucinations but reports mild on anxiety and moderate to severe depression. Patient appeared to be disheveled. Encourage patient to be out of bed in attended to groups included OT groups which observe he is visible in day room after the conversation. The OT will do the [place] for pre ECT next week on Saturday prior the ECT. He started modafinil 50 mg this morning. Indication and side effects explained to patient. Patient is receptive with the plan. Correction: Modefinill 50mg daily. MOCA scheduled next week prior to ECT. 04/10:Laying in bed most of morning. Patient continues to report feeling depressed. He reports looking forward to ECT; pt stated, I think it will be a positive step to get ECT . denies SI/HI/VH/AH. Encouraged to get out of bed. Continue tx plan 04/11: Per nursing, pt did not get out of bed yesterday. Observed laying in bed this morning; encouraged to attend groups and shower. Patient continues to report feeling depressed. denies SI/HI/VH/AH. Encouraged to get out of bed. Continue tx plan. 04/12: continue current tx plan 04/13: stably depressed. PMR. start ECT tomorrow, otherwise continue current mgmt. NPO past MN. 04/14/25: got his first ECT treatment this afternoon. Patient slept for 6 hours, was medication compliant. However, this morning due to the delay of the ECT treatment, he was not happy about the delay into the afternoon. He appeared to be frustrated, irritable, and not cooperative with this provider I do not want to talk to anyone . I am done talking . I do not care when asked his last bowel movement. Per nursing, patient denies suicidal thoughts, other safety concerns. Reports he has no bowel movement x4 days. Medication this morning was held until after the ECT. He also was given citrate magnesium x1. Pending effect. 04/15: made bowel movement. ECT #2 tomorrow. no change in mood or presentation as of today. T/C increasing modafanil to 200 mg sometime next week. 04/16: completed ECT without incident. no FLOWERS today. no change in presentation otherwise. continue current mgmt. ECT #3 saturday. 04/17/2025: No changes. ECT # 3 Saturday04/19/202504/18: no changes 04/19: completed ECT #3 today. no FLOWERS, no change in presentation, no change in mood. continue current mgmt. T/C modafanil increase. 04/20: mood starting to improve. laughed, affect brighter and more flexible. ECT tomorrow, NPO after midnight. continue current mgmt otherwise. 04/21: irritable at afternoon ECT. short today. continue current mgmt. 04/22: not irritable, appears depressed, says mood is unchanged. ECT tomorrow. continue current mgmt. strongly consider increase in modafanil dosing. 04/23/2025: Patient seen ECT completed bilaterally. Patient with markedly poor ADLs almost catatonic like allowing himself to be covered in feces not showering or caring for himself. Change ECT to 0.25 would follow-up on response to bilateral treatment if to withdrawn would may be secondary to bilateral and might consider return to right unilateral. Wellbutrin lowered to 300 mg modafinil was started at 100 mg can consider increase to 150 mg targeting apathy lethargy. Patient started on lorazepam 1 mg p.o. t.i.d. had test doses and seemed significantly improved with more fluid speech and increase range of affect hold lorazepam night prior to ECT 04/24/25: Patient slept for 8 hours, no appetite issues. Denies SI/SIB/HI/AVH. Report anxiety a 2/10 and anxiety an 8/10 which he says he does not feel much different yet from ECT. He denies short term memory. He denies FLOWERS or tireness now but says shortly after ECT he had FLOWERS from yesterday which has been gone. He reports normal BM which laxative was held yesterday. Observed patient spent couple hours in dinning areas, eating out in activity room and spent time watching TV. Nursing also reports patient attended group in the art room as well. He also showered yesterday. He is visible, but quiet keep to self, flat affect, depressed mood. Slightly improvement compare to last visit that this provider saw him about 1-2 weeks ago. Ativan started yesterday which seem to have some effects. 04/25/25: Patient slept for 8 hours, compliant with medications, denies side effects. Deny feeling tired on Ativan. Per nursing patient have incident of incontinence of feces yesterday. Therefore Colace and MiraLax and senna has been held. Notes on to hold when has loose stools. Patient denies safety concerns. Reported the same anxiety and depression level. He is more in bed today compared to yesterday but was out for meals. Flat affect, fair eye contact, resting in room. Attended no groups. No changes in terms of mental status. May have ECT on Saturday morning. 04/26: in bed after ECT. flat, withdrawn, slowed, soft. states his mood remains the same as before, no better and no worse. agreeable to increase modafanil to 150 mg. no apparent cognitive or memory deficits. 04/27: perhaps less slowed than recently. hold ativan this afternoon and overnight. NPO past MN. continue bifrontal ECT in the morning. 04/28: faster and more flexible affect. feels he is improving. decrease ativan from 1 mg TID to 0.5 mg TID. otherwise continue current mgmt. 04/29: as for yesterday. continue current mgmt. hold ativan after 3, NPO after MN. ECT in the morning. 04/30: ECT today uneventful. increase modafanil to 200 tomorrow. DC ativan after saturday morning dose. ECT saturday. NPO past MN saturday. otherwise continue current mgmt. 05/01: Continue current management and treatment plan. 05/02: continue current management and treatment plan. 05/03: ECT #9 completed uneventfully this morning. mood remains improved but pt still spending much of the day in bed with depressive facies. continue current mgmt. 05/04: appears a bit brighter, awake this morning. ECT #10 tomorrow. continue current mgmt. 05/05: poorer hygiene, not showering. reporting mood trending down again. open to increasing modafanil. continue current mgmt for now. 05/06: reports he showered and mood somewhat improved. amenable to increase modafanil to 300 mg as of tomorrow. ECT tomorrow. NPO p MN. 05/07: ECT #10 completed. mood trending better, more expressive. continue current mgmt. 05/08: mood improved, affective range improved. continue current mgmt. 05/09: mood remains improved, affect brighter. ECT tomorrow. continue current mgmt. 05/10: ECT #11 completed. Mood continues to improve. Will continue current med regimen/tx plan for now. 05/11: ECT #12 scheduled for tomorrow. Otherwise continue current tx plan 05/12: Minimal benefit w/ 12 ECT tx & Latuda 120 mg. Will hold off on further ECT for now and taper off Latuda due to lack of significant benefit. 05/13: Pt seems to have regressed somewhat based on his self-report and my review of his chart. 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 Untreated sleep apnea is less likely to contribute to pt's presentation based on sleep study from Mar 2025 following signifiant WL s/p gastric sleeve. Per [facility] neuro consult notes, pt has had memory impairment since the CVA in 2019. 05/14: Pt is visible in milieu this am. Switched to bupropion IR this am. Will d/c Latuda 20 mg due to minimal benefit at max dose. Will defer further ECT for now. 05/16/2025: No changes. Noted ECT being deferred 05/17/25: Pt remains signif depressed. affect is a bit more reactive than t/w's last encounter with him on 05/14. Will titrate bupropion IR from 75 mg bid to 100 mg bid. Per my discussion w/ Dr. Ward, pt had responded positively to lorazepam earlier in his admission. Will start on .5 mg tid for now. Will likely schedule ECT for Saturday- discussed with Dr. Ward. 05/18/25: Continue current med regimen/tx plan. Unable to get pt on list for ECT for tomorrow but will consider for 05/2105/19/25: Pt notes improvement in mood, denies SI. Continue currnt med regimen/tx plan 05/20/25: Pt again reports improved mood, denies SI. ECT ordered for tomorrow. Patient educated on: ECT and therapeutic strategies Reason for continued inpatient stay Substantial Risk for: med/psych decompensation Time Spent With Patient Time: Total time managing care of this patient today _30___ minutes.
[2025-05-20 11:51] VITALS: BMI 31.8
[2025-05-20 20:00] VITALS: BP 131/62; PULSE 72; RESP 18; TEMP 36.3; O2SAT 96
[2025-05-21] MEDS: 0.9 % Sodium Chloride Flush 10 ML SYRINGE IVFLUSH ×3 (00:27→16:59)
[2025-05-21 07:50] VITALS: BP 106/59; PULSE 63; RESP 18; TEMP 36.2; O2SAT 99
[2025-05-21] MEDS: Aspirin Enteric Coated 81 MG TABLET.DR PO (10:22)
--- NOTE | 2025-05-21 19:35 | P.PNPSI_ITS ---
Subjective Subjective Date of Service: 05/21/25 Reason For Visit: SI depression Interim History: Met w/ pt in his room. Informed him that I was unable to get him scheduled for ECT today. Given that he is feeling better, I told him that it's reasonable to d/c ECT for now. Ordered mildine removal He reports that he's feeing 'okay'. Denies SI. Denies med SE. Attended some grps, which went well. Discussed plan for d/c early next wk. Pt stated he was okay with that plan. Mental Status Exam Mental Status Exam Narrative: Appearance: lying in bed. malodorous, wearing hospital thai, disheveled Attitude: Cooperative Speech: limited speech, otherwise wnl Motor activity: Calm and without any tics, tremors or dyskinesias. Mood: as noted above Affect: blunted Thought process: goal directed Thought content: Denies SI Perception: does not appear to respond to internal stimuli Insight: fair Judgment: fair Diagnostics Vital Signs (24Hr): Vital Signs - 24 hr 05/20/25 20:00 05/21/25 07:50 Temperature 97.4 F 97.1 F Pulse Rate 72 63 Respiratory Rate 18 18 Blood Pressure 131/62 106/59 L Pulse Oximetry 96 99 Oxygen Delivery Method Room Air Room Air BMI result Body Mass Index 31.8 Labs 04/23/25 10:35 04/23/25 10:35 Imaging Radiology Impressions: ITS Impressions Head CT 04/06/25 13:54 IMPRESSION: No acute intracranial hemorrhage. Bifrontal bitemporal lobes atrophy. Electronically signed by: Roque Guillen MD 04/06/2025 02:15 PM EDT Medications Medications Current Medications Acetaminophen (Acetaminophen 325 Mg Tablet) 650 mg PO Q6H PRN PRN Reason: Headache/Pain, Scale 1-10 Last Admin: 04/14/25 20:25 Dose: 650 mg Al Hydroxide/Mg Hydroxide (Magnesium Hydrox/Alum Hydrox 30 Ml Oral.Susp) 30 ml PO Q6H PRN PRN Reason: Heartburn/Nausea Aspirin (Aspirin Enteric Coated 81 Mg Tablet.) 81 mg PO DAILY [facility] Last Admin: 05/21/25 10:22 Dose: 81 mg Atorvastatin Calcium (Atorvastatin Calcium 20 Mg Tablet) 20 mg PO BEDTIME [facility] Last Admin: 05/20/25 20:20 Dose: 20 mg Bisacodyl (Bisacodyl 5 Mg Tablet.Dr) 10 mg PO DAILY PRN PRN Reason: severe Constipation Last Admin: 04/20/25 08:57 Dose: 10 mg Bupropion HCl (Bupropion Hcl 100 Mg Tablet) 100 mg PO BID@0900,1700 [facility] Last Admin: 05/21/25 16:57 Dose: 100 mg Docusate Sodium (Docusate Sodium 100 Mg Capsule) 100 mg PO BID PRN PRN Reason: constipation Hydroxyzine HCl (Hydroxyzine Hcl 25 Mg Tablet) 25 mg PO Q6H PRN PRN Reason: mild anxiety Last Admin: 03/26/25 23:24 Dose: 25 mg Lorazepam (Lorazepam 0.5 Mg Tablet) 0.5 mg PO TID [facility] Last Admin: 05/21/25 15:25 Dose: 0.5 mg Magnesium Hydroxide (Milk Of Magnesia 30 Ml Oral.Susp) 30 ml PO DAILY PRN PRN Reason: Constipation Last Admin: 04/17/25 10:24 Dose: 30 ml Modafinil (Modafinil 100 Mg Tablet) 300 mg PO DAILY [facility] Last Admin: 05/21/25 10:23 Dose: 300 mg Naloxone HCl (Naloxone Hcl 0.4 Mg/Ml Vial) 0.04 mg IVPUSH Q5M PRN PRN Reason: Excessive sedation or RR < 8 Naloxone HCl (Naloxone Hcl 0.4 Mg/Ml Vial) 0.04 mg IVPUSH Q5M PRN PRN Reason: Excessive sedation or RR < 8 Nicotine (Nicotine 21 Mg Patch.Td24) 21 mg TRANSDERMA DAILY PRN PRN Reason: nicotine craving Nicotine Polacrilex (Nicotine Polacrilex 2 Mg Gum) 2 mg BUCCAL Q2H PRN PRN Reason: Nicotine Cravings Olanzapine (Olanzapine 5 Mg Tablet) 5 mg PO BID PRN PRN Reason: agitation Ondansetron HCl (Ondansetron Odt 8 Mg Tab.Rapdis) 8 mg TRANSLINGU Q8H PRN PRN Reason: Nausea and Vomiting Polyethylene Glycol (Polyethylene Glycol 3350 17 Gm Powd.Pack) 17 gm PO DAILY PRN PRN Reason: constipation Senna (Sennosides 8.6 Mg Tablet) 17.2 mg PO BEDTIME PRN PRN Reason: Constipation Sodium Chloride (0.9 % Sodium Chloride Flush 10 Ml Syringe) 10 ml IVFLUSH QSHIFT JENNIFER Last Admin: 05/21/25 16:59 Dose: 10 ml Trazodone HCl (Trazodone Hcl 50 Mg Tablet) 50 mg PO BEDTIME MRX1 PRN PRN Reason: Insomnia Last Admin: 04/05/25 23:14 Dose: 50 mg Allergies Allergies Allergy/AdvReac Type Severity Reaction Status Date / Time pumpkin Allergy Unknown Unknown Verified 12/24/24 12:26 Assessment & Plan Assessment & Plan (1) Depression: Qualifiers: Depression Type: unspecified Qualified Code(s): F32.A - Depression, unspecified Status: Acute Code(s): F32.A - Depression, unspecified (2) CKD (chronic kidney disease): Qualifiers: Chronic kidney disease stage: stage 3 (moderate) Chronic kidney disease stage 3 subtype: stage 3a (GFR 45-59) Qualified Code(s): N18.31 - Chronic kidney disease, stage 3a Status: Acute Code(s): N18.9 - Chronic kidney disease, unspecified Assessment and Plan: Patient likely has some mild chronic kidney disease, 3a no proteinuria on most recent UA patient has mild renal disease, given medical history has low risk of developing ESRD requiring dialysis- ok for midline placement. Discussed with Dr Moody. (3) CVA (cerebral vascular accident): Status: Acute Code(s): I63.9 - Cerebral infarction, unspecified Plan 03/27: feels latuda 120 has been helpful. however, remains depressed. add wellbutrin XL 150 daily for depression, plan to increase to 300 mg daily in 3 days. may also consider ECT due to lack of improvement despite numerous recent hospitalizations + lethality of suicide attempts + recent self-abnegating behaviors. 03/28: no change in presentation, no requests or complaints. started wellbutrin 150 today. continue current mgmt 03/29/25: Slept well, no issues with appetite. Observed out on the unit, attended groups, engaging. Reports depression and 03/21, denies anxiety. Constricted affect, congruent with mood. Denies safety concerns. Compliant with medications. Denies side effects from Wellbutrin. Continue to encourage groups. 03/30/25: Patient slept for 6 hours, was medication compliant. He attended 2 groups yesterday, however today he is more isolated, in bed a lot more time, declines a couple groups. Reports depressed but no anxiety, flat affect, depressed, but cooperative during one-to-one assessment. He is receptive with the plan of Wellbutrin increased up to 300 mg for depression. Reports passive SI, denies plan or intention. Denies other safety concerns. Encourage patient to go to groups and shower daily. Increase Wellbutrin XL to 300 mg daily for depression. He reported that he has bipolar type II. 03/31: Laying in bed. keeping to self. showered. patient reports feeling depressed ; pt stated, I'm not having a good day. I don't want to do anything . flat affect. denies SI/HI/VH/AH. Per nursing, slept 8 hours. encouraged to attend groups. continue current tx plan. 04/01/25: Patient slept for 8 hours, poor meal intake yesterday but was medication compliant. Denies side effects. When asked about if he has poor appetite as he ate only 50 of breakfast, and 25 for lunch and not eating dinner, he said because I did not do the menu, so I got what I do not like . He shower yesterday, continued to reports depression 03/21. Denied anxiety. He does not feel any difference from Wellbutrin 150 when and when it was increased up to 300 mg. Denies SI/SIB/HI/AVH, isolative self, he plans to attend groups today. This provider spoke with patient in length regarding medication trials. Per his report, has been trying so many antidepressants they just do not work, and continued to be depressed. Some of them are Zoloft, Paxil, Effexor, Celexa, Prozac, Cymbalta, Lexapro. He also having history of taking Zyprexa more than 20 years ago due to hearing voices. Then the voices was calm. He never has a take it again after. History of Abilify but not sure if it is working as he can not recall. Regarding ADLs: He said that he had food at the group home twice a day, but he is not showering for many days despite the fact that staff asked him to do so I just do not care about being clean . Reports very low energy, low motivation, been increased suicidal thoughts and depression. He used to love music and reading but not interested in doing anything like that anymore. Reported that he had gastric sleeve surgery back in August 2023 which he lost 230 lb. He weight 447 lb prior to the surgery. He identified that after the surgery he has been more depressed slowly over months. There was a time that he wanted to starve myself so I can when asked is that you that he has stopped eating at home. He also identified that he feel more depressed after surgery as he is not able to over eating like he did before. Family mental health illnesses: Reports that who both of his parents was depressed. Mom 11 years ago. 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 History of ECTs: Reports he had history of ECTs in 2010 when he was at in [facility].He felt worse after the treatment everything seems like a dream . He clarified that immediately after the treatment he feel that way which could be a side effects of ECT but not permanent. Educate patient on possible side effects ECTs. Patient denies having seizure during ECTs treatment, no seizure history no cardiac conditions/disease history. Reports history of hypertension, but not anymore. He also has been admitted to different hospitals for psychiatric admissions in the past couple of months. Reports staying at [facility] in December for a month. [facility] in the area names [facility]) in October for another month. Per email from his OP team- clinical director at [facility], they also express concerns of patient's conditions. It is noted that their concerns are very consistent with patient' report here on the unit. He also has been admitted to different hospitals for psychiatric admissions in the past couple of months. Reports staying at [facility] in December for a month. [facility] in the area names [facility]) in October for another month. Per email from his OP team- clinical director at [facility], they also express concerns of patient's conditions. It is noted that their concerns are very consistent with patient' report here on the unit. Alfredito has been in and out on inpatient level of care since October of this year, I believe every month, for a majority of the time. He was recently discharged from [facility] after a 1 month stay and within two hours of returning home wanted to return to the hospital, saying he was unwell, and within one day was sectioned by [facility], which is how he ended up with you now. He has been coming home and intentionally starving himself, even not eating for up to 1 week. We have known Alfredito for years and since this started in October, we have seen no significant improvement in his mental health or a return to baseline. In fact, we are observing his case as consistent with failure to thrive. We have been asking for him to be inpatient at [facility] or with you at [facility] for some time in order for him to be potentially considered for ECT level of treatment, if deemed appropriate. Multiple medication trials failture to target depressive symptoms. He will be a good candidate to get trial ECT treatment in combination with current medication regimens. Patient also agrees with the plan. We would start the treatment as soon as possible. Will discuss the case with in house psychiatrist-Dr. Ward to prepare for ECT treatment. Hope to start early next week. 04/02: Laying in bed. keeping to self. Patient continues to report feeling depressed; pt stated, I feel about the same. I spoke with the other provider and agreed to do ECT . He reports sleeping well. denies SI/HI/VH/AH. Encouraged to attend groups and shower. Continue current tx plan. 04/03: no changes- just started wellbutrin 04/04: no changes 04/05/25: report anxiety a 2-3 but still 03/21 for depression. No change since started Wellbutrin. He agrees to get Wellbutrin up to 450mg daily for depression. Isolative in room, staring up to the ceiling. Discuss with patient of option to start on Intuniv for severe depression. Patient declines it at this current time but agree to see Welbutrin increased would be helpful. He agrees with ECT. Encourage groups, he says he was at art group out to dinning area but there are too much so he went back to his room. Report not many groups offered over the weekends. 04/06/25: Patient slept for 6 hours, have a sleep study done last night. Reported that he did not sleep well. Appetite is okay. Mood is depressed 03/21, denies anxiety today. Denies suicidal thoughts, but reports he has passive SI yesterday intrusive, just do not Wanna live anymore . Denies hallucinations. Address with patient of why he having bowel movement in the shower. He said it is just one episode. Reports he feel constipated. Agree with Colace. He also inform regarding the ECT which was approved by the insurance. He compliant with medication, however reports he has not feeling any difference in terms of depression at since started on Wellbutrin. Encourage groups attendance. Observe him later on during the day reading at a table in dining area. Colace 100mg BID for constipation. ECT consult placed: Patient may be seen by tomorrow by Dr. Ward. Procedure done preparing for the ECT: Head CT scan negative, EKG normal sinus rhythm, Incomplete right bundle branch block. Borderline ECG_ no change when compare to previous EKG. Unremarkable CBC with diff. 04/07/25: Per hospitalist note: ECT risk stratification Patient without previous problems with anesthesia, has previously undergone ECT RCRI 0 points, no further cardiac workup or treatment indicated at this time EKG showed QT interval WNL, no evidence of ischemic changes Based on stated PMH, HPI, and physical exam, there are no apparent medical contraindications to the planned procedure. Patient is complaining of pelvic discomfort and constipation. We will add therapy with Senokot, MiraLax and obtain urinalysis to assess for urinary tract infection. Continue treatment with atorvastatin and aspirin for history of stroke and hyperlipidemia. 04/07/25: Patient compliant with medication, reports due to the pain abdominal, he could not sleep well last night. Continued to reports depressions 8/10, anxiety 4/10 today related to the pain. Denies suicidal thoughts or voices, isolated. Shower yesterday. Review with patient test need to be done prior to having ECT. Patient met with Dr. Ward and hospitalist for ECT clearance. Due to the pain, constipated, more laxative ordered today. Also UA other by hospitalist to rule out any infection. He is flat, low energy, low motivation, withdrawal, in room mostly, but come out to other rooms to talk to the providers 04/08/25: Patient slept for 8 hours, compliant with medications, denies side effect. Met with him in his room, reported that he slept better last night, having good bowel movement, denies diarrhea is. Informed him regarding the labs work/and UA that was negative to rule out UTI. Denies pain. Explained to patient regarding pre ECT procedures/test to prepare for the day that he going to start. We will start ECT on Saturday. Per Dr. Ward, we will taper down on Latuda, start him on Modafinil low dose to help with severe depression. Continued to reports moderate to severe depression. Denies suicidal thoughts or hallucinations. 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 He denied any significant or excessive drug exposure. I do not find any focal lesion, acute or chronic, suggestive of stroke. There was no contraindication to treatment with ECT. Otherwise treatment of this condition is supportive, symptomatic and conservative Taper down on Latuda from 120 down to 100 mg daily at 17:00 for mood. Start on Modefinil 100ng daily for severe depression, low energy, poor concentration, poor motivation. ECT will be scheduled next week on Saturday. We will received treatment for Saturday/Saturday and Saturday. 04/09/25: Patient denies pain, normal bowel movement, slept well and compliant with medications. Denies side effects. Denies suicidal thoughts or hallucinations but reports mild on anxiety and moderate to severe depression. Patient appeared to be disheveled. Encourage patient to be out of bed in attended to groups included OT groups which observe he is visible in day room after the conversation. The OT will do the [place] for pre ECT next week on Saturday prior the ECT. He started modafinil 50 mg this morning. Indication and side effects explained to patient. Patient is receptive with the plan. Correction: Modefinill 50mg daily. MOCA scheduled next week prior to ECT. 04/10:Laying in bed most of morning. Patient continues to report feeling depressed. He reports looking forward to ECT; pt stated, I think it will be a positive step to get ECT . denies SI/HI/VH/AH. Encouraged to get out of bed. Continue tx plan 04/11: Per nursing, pt did not get out of bed yesterday. Observed laying in bed this morning; encouraged to attend groups and shower. Patient continues to report feeling depressed. denies SI/HI/VH/AH. Encouraged to get out of bed. Continue tx plan. 04/12: continue current tx plan 04/13: stably depressed. PMR. start ECT tomorrow, otherwise continue current mgmt. NPO past MN. 04/14/25: got his first ECT treatment this afternoon. Patient slept for 6 hours, was medication compliant. However, this morning due to the delay of the ECT treatment, he was not happy about the delay into the afternoon. He appeared to be frustrated, irritable, and not cooperative with this provider I do not want to talk to anyone . I am done talking . I do not care when asked his last bowel movement. Per nursing, patient denies suicidal thoughts, other safety concerns. Reports he has no bowel movement x4 days. Medication this morning was held until after the ECT. He also was given citrate magnesium x1. Pending effect. 04/15: made bowel movement. ECT #2 tomorrow. no change in mood or presentation as of today. T/C increasing modafanil to 200 mg sometime next week. 04/16: completed ECT without incident. no FLOWERS today. no change in presentation otherwise. continue current mgmt. ECT #3 saturday. 04/17/2025: No changes. ECT # 3 Saturday04/19/202504/18: no changes 04/19: completed ECT #3 today. no FLOWERS, no change in presentation, no change in mood. continue current mgmt. T/C modafanil increase. 04/20: mood starting to improve. laughed, affect brighter and more flexible. ECT tomorrow, NPO after midnight. continue current mgmt otherwise. 04/21: irritable at afternoon ECT. short today. continue current mgmt. 04/22: not irritable, appears depressed, says mood is unchanged. ECT tomorrow. continue current mgmt. strongly consider increase in modafanil dosing. 04/23/2025: Patient seen ECT completed bilaterally. Patient with markedly poor ADLs almost catatonic like allowing himself to be covered in feces not showering or caring for himself. Change ECT to 0.25 would follow-up on response to bilateral treatment if to withdrawn would may be secondary to bilateral and might consider return to right unilateral. Wellbutrin lowered to 300 mg modafinil was started at 100 mg can consider increase to 150 mg targeting apathy lethargy. Patient started on lorazepam 1 mg p.o. t.i.d. had test doses and seemed significantly improved with more fluid speech and increase range of affect hold lorazepam night prior to ECT 04/24/25: Patient slept for 8 hours, no appetite issues. Denies SI/SIB/HI/AVH. Report anxiety a /10 and anxiety an / which he says he does not feel much different yet from ECT. He denies short term memory. He denies FLOWERS or tireness now but says shortly after ECT he had FLOWERS from yesterday which has been gone. He reports normal BM which laxative was held yesterday. Observed patient spent couple hours in dinning areas, eating out in activity room and spent time watching TV. Nursing also reports patient attended group in the art room as well. He also showered yesterday. He is visible, but quiet keep to self, flat affect, depressed mood. Slightly improvement compare to last visit that this provider saw him about 1-2 weeks ago. Ativan started yesterday which seem to have some effects. 04/25/25: Patient slept for 8 hours, compliant with medications, denies side effects. Deny feeling tired on Ativan. Per nursing patient have incident of incontinence of feces yesterday. Therefore Colace and MiraLax and senna has been held. Notes on to hold when has loose stools. Patient denies safety concerns. Reported the same anxiety and depression level. He is more in bed today compared to yesterday but was out for meals. Flat affect, fair eye contact, resting in room. Attended no groups. No changes in terms of mental status. May have ECT on Saturday morning. 04/26: in bed after ECT. flat, withdrawn, slowed, soft. states his mood remains the same as before, no better and no worse. agreeable to increase modafanil to 150 mg. no apparent cognitive or memory deficits. 04/27: perhaps less slowed than recently. hold ativan this afternoon and overnight. NPO past MN. continue bifrontal ECT in the morning. 04/28: faster and more flexible affect. feels he is improving. decrease ativan from 1 mg TID to 0.5 mg TID. otherwise continue current mgmt. 04/29: as for yesterday. continue current mgmt. hold ativan after 3, NPO after MN. ECT in the morning. 04/30: ECT today uneventful. increase modafanil to 200 tomorrow. DC ativan after saturday morning dose. ECT saturday. NPO past MN saturday. otherwise continue current mgmt. 05/01: Continue current management and treatment plan. 05/02: continue current management and treatment plan. 05/03: ECT #9 completed uneventfully this morning. mood remains improved but pt still spending much of the day in bed with depressive facies. continue current mgmt. 05/04: appears a bit brighter, awake this morning. ECT #10 tomorrow. continue current mgmt. 05/05: poorer hygiene, not showering. reporting mood trending down again. open to increasing modafanil. continue current mgmt for now. 05/06: reports he showered and mood somewhat improved. amenable to increase modafanil to 300 mg as of tomorrow. ECT tomorrow. NPO p MN. 05/07: ECT #10 completed. mood trending better, more expressive. continue current mgmt. 05/08: mood improved, affective range improved. continue current mgmt. 05/09: mood remains improved, affect brighter. ECT tomorrow. continue current mgmt. 05/10: ECT #11 completed. Mood continues to improve. Will continue current med regimen/tx plan for now. 05/11: ECT #12 scheduled for tomorrow. Otherwise continue current tx plan 05/12: Minimal benefit w/ 12 ECT tx & Latuda 120 mg. Will hold off on further ECT for now and taper off Latuda due to lack of significant benefit. 05/13: Pt seems to have regressed somewhat based on his self-report and my review of his chart. 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 Untreated sleep apnea is less likely to contribute to pt's presentation based on sleep study from Mar 2025 following signifiant WL s/p gastric sleeve. Per [facility] neuro consult notes, pt has had memory impairment since the CVA in 2019. 05/14: Pt is visible in milieu this am. Switched to bupropion IR this am. Will d/c Latuda 20 mg due to minimal benefit at max dose. Will defer further ECT for now. 05/16/2025: No changes. Noted ECT being deferred 05/17/25: Pt remains signif depressed. affect is a bit more reactive than t/w's last encounter with him on 05/14. Will titrate bupropion IR from 75 mg bid to 100 mg bid. Per my discussion w/ Dr. aWrd, pt had responded positively to lorazepam earlier in his admission. Will start on .5 mg tid for now. Will likely schedule ECT for Saturday- discussed with Dr. Ward. 05/18/25: Continue current med regimen/tx plan. Unable to get pt on list for ECT for tomorrow but will consider for 05/2105/19/25: Pt notes improvement in mood, denies SI. Continue currnt med regimen/tx plan 05/20/25: Pt again reports improved mood, denies SI. ECT ordered for tomorrow. 05/21/25: Pt was not put on schedule for ECT for today but given that he reports improved mood this wk, will defer further ect for now and remove midline. Likely d/c next Reason for continued inpatient stay Substantial Risk for: med/psych decompensation Time Spent With Patient Time: Total time managing care of this patient today _20___ minutes.
[2025-05-21 20:20] VITALS: BP 117/71; PULSE 94; RESP 18; TEMP 36.7; O2SAT 98
[2025-05-22 08:00] VITALS: BP 109/68; PULSE 67; RESP 16; TEMP 36.6; O2SAT 98
[2025-05-22] MEDS: Aspirin Enteric Coated 81 MG TABLET.DR PO (08:47)
--- NOTE | 2025-05-22 11:08 | HO.PSYCHPN ---
Subjective Subjective Date of Service: 05/22/25 Reason For Visit: SI depression Subjective Notes: Conditional Voluntary Interim History: Patient was seen and discussed in rounds today. Records and plans were reviewed. He is mostly isolative and in bed with some social contacts. Eating and sleeping adequately. No SI. No AVH. No changes were made today Review of Systems Review of Systems Yes all other systems are reviewed and are negative Mental Status Exam Mental Status Exam Narrative: Appearance: lying in bed. malodorous, wearing hospital thai, disheveled Attitude: Cooperative Speech: limited speech, otherwise wnl Motor activity: Calm and without any tics, tremors or dyskinesias. Mood: as noted above Affect: blunted Thought process: goal directed Thought content: Denies SI Perception: does not appear to respond to internal stimuli Insight: fair Judgment: fair Diagnostics Vital Signs (24Hr): Vital Signs - 24 hr 05/21/25 20:20 05/22/25 08:00 Temperature 98.0 F 97.8 F Pulse Rate 94 67 Respiratory Rate 18 16 Blood Pressure 117/71 109/68 Pulse Oximetry 98 98 Oxygen Delivery Method Room Air Room Air BMI result Body Mass Index 31.8 Labs 04/23/25 10:35 04/23/25 10:35 Imaging Radiology Impressions: ITS Impressions Head CT 04/06/25 13:54 IMPRESSION: No acute intracranial hemorrhage. Bifrontal bitemporal lobes atrophy. Electronically signed by: Roque Guillen MD 04/06/2025 02:15 PM EDT Medications Medications Current Medications Acetaminophen (Acetaminophen 325 Mg Tablet) 650 mg PO Q6H PRN PRN Reason: Headache/Pain, Scale 1-10 Last Admin: 04/14/25 20:25 Dose: 650 mg Al Hydroxide/Mg Hydroxide (Magnesium Hydrox/Alum Hydrox 30 Ml Oral.Susp) 30 ml PO Q6H PRN PRN Reason: Heartburn/Nausea Aspirin (Aspirin Enteric Coated 81 Mg Tablet.) 81 mg PO DAILY [facility] Last Admin: 05/22/25 08:47 Dose: 81 mg Atorvastatin Calcium (Atorvastatin Calcium 20 Mg Tablet) 20 mg PO BEDTIME [facility] Last Admin: 05/21/25 19:39 Dose: 20 mg Bisacodyl (Bisacodyl 5 Mg Tablet.) 10 mg PO DAILY PRN PRN Reason: severe Constipation Last Admin: 04/20/25 08:57 Dose: 10 mg Bupropion HCl (Bupropion Hcl 100 Mg Tablet) 100 mg PO BID@0900,1700 [facility] Last Admin: 05/22/25 08:47 Dose: 100 mg Docusate Sodium (Docusate Sodium 100 Mg Capsule) 100 mg PO BID PRN PRN Reason: constipation Hydroxyzine HCl (Hydroxyzine Hcl 25 Mg Tablet) 25 mg PO Q6H PRN PRN Reason: mild anxiety Last Admin: 03/26/25 23:24 Dose: 25 mg Lorazepam (Lorazepam 0.5 Mg Tablet) 0.5 mg PO TID [facility] Last Admin: 05/22/25 08:47 Dose: 0.5 mg Magnesium Hydroxide (Milk Of Magnesia 30 Ml Oral.Susp) 30 ml PO DAILY PRN PRN Reason: Constipation Last Admin: 04/17/25 10:24 Dose: 30 ml Modafinil (Modafinil 100 Mg Tablet) 300 mg PO DAILY [facility] Last Admin: 05/22/25 08:47 Dose: 300 mg Naloxone HCl (Naloxone Hcl 0.4 Mg/Ml Vial) 0.04 mg IVPUSH Q5M PRN PRN Reason: Excessive sedation or RR < 8 Naloxone HCl (Naloxone Hcl 0.4 Mg/Ml Vial) 0.04 mg IVPUSH Q5M PRN PRN Reason: Excessive sedation or RR < 8 Nicotine (Nicotine 21 Mg Patch.Td24) 21 mg TRANSDERMA DAILY PRN PRN Reason: nicotine craving Nicotine Polacrilex (Nicotine Polacrilex 2 Mg Gum) 2 mg BUCCAL Q2H PRN PRN Reason: Nicotine Cravings Olanzapine (Olanzapine 5 Mg Tablet) 5 mg PO BID PRN PRN Reason: agitation Ondansetron HCl (Ondansetron Odt 8 Mg Tab.Rapdis) 8 mg TRANSLINGU Q8H PRN PRN Reason: Nausea and Vomiting Polyethylene Glycol (Polyethylene Glycol 3350 17 Gm Powd.Pack) 17 gm PO DAILY PRN PRN Reason: constipation Senna (Sennosides 8.6 Mg Tablet) 17.2 mg PO BEDTIME PRN PRN Reason: Constipation Trazodone HCl (Trazodone Hcl 50 Mg Tablet) 50 mg PO BEDTIME MRX1 PRN PRN Reason: Insomnia Last Admin: 04/05/25 23:14 Dose: 50 mg Allergies Allergies Allergy/AdvReac Type Severity Reaction Status Date / Time pumpkin Allergy Unknown Unknown Verified 12/24/24 12:26 Assessment & Plan Assessment & Plan (1) Depression: Qualifiers: Depression Type: unspecified Qualified Code(s): F32.A - Depression, unspecified Status: Acute Code(s): F32.A - Depression, unspecified (2) CKD (chronic kidney disease): Qualifiers: Chronic kidney disease stage: stage 3 (moderate) Chronic kidney disease stage 3 subtype: stage 3a (GFR 45-59) Qualified Code(s): N18.31 - Chronic kidney disease, stage 3a Status: Acute Code(s): N18.9 - Chronic kidney disease, unspecified Assessment and Plan: Patient likely has some mild chronic kidney disease, 3a no proteinuria on most recent UA patient has mild renal disease, given medical history has low risk of developing ESRD requiring dialysis- ok for midline placement. Discussed with Dr Moody. (3) CVA (cerebral vascular accident): Status: Acute Code(s): I63.9 - Cerebral infarction, unspecified Plan 03/27: feels latuda 120 has been helpful. however, remains depressed. add wellbutrin XL 150 daily for depression, plan to increase to 300 mg daily in 3 days. may also consider ECT due to lack of improvement despite numerous recent hospitalizations + lethality of suicide attempts + recent self-abnegating behaviors. 03/28: no change in presentation, no requests or complaints. started wellbutrin 150 today. continue current mgmt 03/29/25: Slept well, no issues with appetite. Observed out on the unit, attended groups, engaging. Reports depression and 03/21, denies anxiety. Constricted affect, congruent with mood. Denies safety concerns. Compliant with medications. Denies side effects from Wellbutrin. Continue to encourage groups. 03/30/25: Patient slept for 6 hours, was medication compliant. He attended 2 groups yesterday, however today he is more isolated, in bed a lot more time, declines a couple groups. Reports depressed but no anxiety, flat affect, depressed, but cooperative during one-to-one assessment. He is receptive with the plan of Wellbutrin increased up to 300 mg for depression. Reports passive SI, denies plan or intention. Denies other safety concerns. Encourage patient to go to groups and shower daily. Increase Wellbutrin XL to 300 mg daily for depression. He reported that he has bipolar type II. 03/31: Laying in bed. keeping to self. showered. patient reports feeling depressed ; pt stated, I'm not having a good day. I don't want to do anything . flat affect. denies SI/HI/VH/AH. Per nursing, slept 8 hours. encouraged to attend groups. continue current tx plan. 04/01/25: Patient slept for 8 hours, poor meal intake yesterday but was medication compliant. Denies side effects. When asked about if he has poor appetite as he ate only 50 of breakfast, and 25 for lunch and not eating dinner, he said because I did not do the menu, so I got what I do not like . He shower yesterday, continued to reports depression 03/21. Denied anxiety. He does not feel any difference from Wellbutrin 150 when and when it was increased up to 300 mg. Denies SI/SIB/HI/AVH, isolative self, he plans to attend groups today. This provider spoke with patient in length regarding medication trials. Per his report, has been trying so many antidepressants they just do not work, and continued to be depressed. Some of them are Zoloft, Paxil, Effexor, Celexa, Prozac, Cymbalta, Lexapro. He also having history of taking Zyprexa more than 20 years ago due to hearing voices. Then the voices was calm. He never has a take it again after. History of Abilify but not sure if it is working as he can not recall. Regarding ADLs: He said that he had food at the custodial twice a day, but he is not showering for many days despite the fact that staff asked him to do so I just do not care about being clean . Reports very low energy, low motivation, been increased suicidal thoughts and depression. He used to love music and reading but not interested in doing anything like that anymore. Reported that he had gastric sleeve surgery back in August 2023 which he lost 230 lb. He weight 447 lb prior to the surgery. He identified that after the surgery he has been more depressed slowly over months. There was a time that he wanted to starve myself so I can when asked is that you that he has stopped eating at home. He also identified that he feel more depressed after surgery as he is not able to over eating like he did before. Family mental health illnesses: Reports that who both of his parents was depressed. Mom 11 years ago. 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 History of ECTs: Reports he had history of ECTs in 2010 when he was at in [facility].He felt worse after the treatment everything seems like a dream . He clarified that immediately after the treatment he feel that way which could be a side effects of ECT but not permanent. Educate patient on possible side effects ECTs. Patient denies having seizure during ECTs treatment, no seizure history no cardiac conditions/disease history. Reports history of hypertension, but not anymore. He also has been admitted to different hospitals for psychiatric admissions in the past couple of months. Reports staying at [facility] in December for a month. [facility] [place] in the area names [facility]) in October for another month. Per email from his OP team- clinical director at [facility], they also express concerns of patient's conditions. It is noted that their concerns are very consistent with patient' report here on the unit. He also has been admitted to different hospitals for psychiatric admissions in the past couple of months. Reports staying at [facility] in December for a month. [facility] [place] in the area names [facility]) in October for another month. Per email from his OP team- clinical director at [facility], they also express concerns of patient's conditions. It is noted that their concerns are very consistent with patient' report here on the unit. Alfredito has been in and out on inpatient level of care since October of this year, I believe every month, for a majority of the time. He was recently discharged from [facility] after a 1 month stay and within two hours of returning home wanted to return to the hospital, saying he was unwell, and within one day was sectioned by [facility], which is how he ended up with you now. He has been coming home and intentionally starving himself, even not eating for up to 1 week. We have known Alfredito for years and since this started in October, we have seen no significant improvement in his mental health or a return to baseline. In fact, we are observing his case as consistent with failure to thrive. We have been asking for him to be inpatient at [facility] or with you at [facility] for some time in order for him to be potentially considered for ECT level of treatment, if deemed appropriate. Multiple medication trials failture to target depressive symptoms. He will be a good candidate to get trial ECT treatment in combination with current medication regimens. Patient also agrees with the plan. We would start the treatment as soon as possible. Will discuss the case with in house psychiatrist-Dr. Ward to prepare for ECT treatment. Hope to start early next week. 04/02: Laying in bed. keeping to self. Patient continues to report feeling depressed; pt stated, I feel about the same. I spoke with the other provider and agreed to do ECT . He reports sleeping well. denies SI/HI/VH/AH. Encouraged to attend groups and shower. Continue current tx plan. 04/03: no changes- just started wellbutrin 04/04: no changes 04/05/25: report anxiety a 2-310 but still 8 for depression. No change since started Wellbutrin. He agrees to get Wellbutrin up to 450mg daily for depression. Isolative in room, staring up to the ceiling. Discuss with patient of option to start on Intuniv for severe depression. Patient declines it at this current time but agree to see Welbutrin increased would be helpful. He agrees with ECT. Encourage groups, he says he was at art group out to dinning area but there are too much so he went back to his room. Report not many groups offered over the weekends. 04/06/25: Patient slept for 6 hours, have a sleep study done last night. Reported that he did not sleep well. Appetite is okay. Mood is depressed 03/21, denies anxiety today. Denies suicidal thoughts, but reports he has passive SI yesterday intrusive, just do not Wanna live anymore . Denies hallucinations. Address with patient of why he having bowel movement in the shower. He said it is just one episode. Reports he feel constipated. Agree with Colace. He also inform regarding the ECT which was approved by the insurance. He compliant with medication, however reports he has not feeling any difference in terms of depression at since started on Wellbutrin. Encourage groups attendance. Observe him later on during the day reading at a table in dining area. Colace 100mg BID for constipation. ECT consult placed: Patient may be seen by tomorrow by Dr. Ward. Procedure done preparing for the ECT: Head CT scan negative, EKG normal sinus rhythm, Incomplete right bundle branch block. Borderline ECG_ no change when compare to previous EKG. Unremarkable CBC with diff. 04/07/25: Per hospitalist note: ECT risk stratification Patient without previous problems with anesthesia, has previously undergone ECT RCRI 0 points, no further cardiac workup or treatment indicated at this time EKG showed QT interval WNL, no evidence of ischemic changes Based on stated PMH, HPI, and physical exam, there are no apparent medical contraindications to the planned procedure. Patient is complaining of pelvic discomfort and constipation. We will add therapy with Senokot, MiraLax and obtain urinalysis to assess for urinary tract infection. Continue treatment with atorvastatin and aspirin for history of stroke and hyperlipidemia. 04/07/25: Patient compliant with medication, reports due to the pain abdominal, he could not sleep well last night. Continued to reports depressions 8/10, anxiety 4/10 today related to the pain. Denies suicidal thoughts or voices, isolated. Shower yesterday. Review with patient test need to be done prior to having ECT. Patient met with Dr. Ward and hospitalist for ECT clearance. Due to the pain, constipated, more laxative ordered today. Also UA other by hospitalist to rule out any infection. He is flat, low energy, low motivation, withdrawal, in room mostly, but come out to other rooms to talk to the providers 04/08/25: Patient slept for 8 hours, compliant with medications, denies side effect. Met with him in his room, reported that he slept better last night, having good bowel movement, denies diarrhea is. Informed him regarding the labs work/and UA that was negative to rule out UTI. Denies pain. Explained to patient regarding pre ECT procedures/test to prepare for the day that he going to start. We will start ECT on Saturday. Per Dr. Ward, we will taper down on Latuda, start him on Modafinil low dose to help with severe depression. Continued to reports moderate to severe depression. Denies suicidal thoughts or hallucinations. 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 He denied any significant or excessive drug exposure. I do not find any focal lesion, acute or chronic, suggestive of stroke. There was no contraindication to treatment with ECT. Otherwise treatment of this condition is supportive, symptomatic and conservative Taper down on Latuda from 120 down to 100 mg daily at 17:00 for mood. Start on Modefinil 100ng daily for severe depression, low energy, poor concentration, poor motivation. ECT will be scheduled next week on Saturday. We will received treatment for Saturday/Saturday and Saturday. 04/09/25: Patient denies pain, normal bowel movement, slept well and compliant with medications. Denies side effects. Denies suicidal thoughts or hallucinations but reports mild on anxiety and moderate to severe depression. Patient appeared to be disheveled. Encourage patient to be out of bed in attended to groups included OT groups which observe he is visible in day room after the conversation. The OT will do the [place] for pre ECT next week on Saturday prior the ECT. He started modafinil 50 mg this morning. Indication and side effects explained to patient. Patient is receptive with the plan. Correction: Modefinill 50mg daily. MOCA scheduled next week prior to ECT. 04/10:Laying in bed most of morning. Patient continues to report feeling depressed. He reports looking forward to ECT; pt stated, I think it will be a positive step to get ECT . denies SI/HI/VH/AH. Encouraged to get out of bed. Continue tx plan 04/11: Per nursing, pt did not get out of bed yesterday. Observed laying in bed this morning; encouraged to attend groups and shower. Patient continues to report feeling depressed. denies SI/HI/VH/AH. Encouraged to get out of bed. Continue tx plan. 04/12: continue current tx plan 04/13: stably depressed. PMR. start ECT tomorrow, otherwise continue current mgmt. NPO past MN. 04/14/25: got his first ECT treatment this afternoon. Patient slept for 6 hours, was medication compliant. However, this morning due to the delay of the ECT treatment, he was not happy about the delay into the afternoon. He appeared to be frustrated, irritable, and not cooperative with this provider I do not want to talk to anyone . I am done talking . I do not care when asked his last bowel movement. Per nursing, patient denies suicidal thoughts, other safety concerns. Reports he has no bowel movement x4 days. Medication this morning was held until after the ECT. He also was given citrate magnesium x1. Pending effect. 04/15: made bowel movement. ECT #2 tomorrow. no change in mood or presentation as of today. T/C increasing modafanil to 200 mg sometime next week. 04/16: completed ECT without incident. no FLOWERS today. no change in presentation otherwise. continue current mgmt. ECT #3 saturday. 04/17/2025: No changes. ECT # 3 Saturday04/19/202504/18: no changes 04/19: completed ECT #3 today. no FLOWERS, no change in presentation, no change in mood. continue current mgmt. T/C modafanil increase. 04/20: mood starting to improve. laughed, affect brighter and more flexible. ECT tomorrow, NPO after midnight. continue current mgmt otherwise. 04/21: irritable at afternoon ECT. short today. continue current mgmt. 04/22: not irritable, appears depressed, says mood is unchanged. ECT tomorrow. continue current mgmt. strongly consider increase in modafanil dosing. 04/23/2025: Patient seen ECT completed bilaterally. Patient with markedly poor ADLs almost catatonic like allowing himself to be covered in feces not showering or caring for himself. Change ECT to 0.25 would follow-up on response to bilateral treatment if to withdrawn would may be secondary to bilateral and might consider return to right unilateral. Wellbutrin lowered to 300 mg modafinil was started at 100 mg can consider increase to 150 mg targeting apathy lethargy. Patient started on lorazepam 1 mg p.o. t.i.d. had test doses and seemed significantly improved with more fluid speech and increase range of affect hold lorazepam night prior to ECT 04/24/25: Patient slept for 8 hours, no appetite issues. Denies SI/SIB/HI/AVH. Report anxiety a 2/10 and anxiety an 8/10 which he says he does not feel much different yet from ECT. He denies short term memory. He denies FLOWERS or tireness now but says shortly after ECT he had FLOWERS from yesterday which has been gone. He reports normal BM which laxative was held yesterday. Observed patient spent couple hours in dinning areas, eating out in activity room and spent time watching TV. Nursing also reports patient attended group in the art room as well. He also showered yesterday. He is visible, but quiet keep to self, flat affect, depressed mood. Slightly improvement compare to last visit that this provider saw him about 1-2 weeks ago. Ativan started yesterday which seem to have some effects. 04/25/25: Patient slept for 8 hours, compliant with medications, denies side effects. Deny feeling tired on Ativan. Per nursing patient have incident of incontinence of feces yesterday. Therefore Colace and MiraLax and senna has been held. Notes on to hold when has loose stools. Patient denies safety concerns. Reported the same anxiety and depression level. He is more in bed today compared to yesterday but was out for meals. Flat affect, fair eye contact, resting in room. Attended no groups. No changes in terms of mental status. May have ECT on Saturday morning. 04/26: in bed after ECT. flat, withdrawn, slowed, soft. states his mood remains the same as before, no better and no worse. agreeable to increase modafanil to 150 mg. no apparent cognitive or memory deficits. 04/27: perhaps less slowed than recently. hold ativan this afternoon and overnight. NPO past MN. continue bifrontal ECT in the morning. 04/28: faster and more flexible affect. feels he is improving. decrease ativan from 1 mg TID to 0.5 mg TID. otherwise continue current mgmt. 04/29: as for yesterday. continue current mgmt. hold ativan after 3, NPO after MN. ECT in the morning. 04/30: ECT today uneventful. increase modafanil to 200 tomorrow. DC ativan after saturday morning dose. ECT saturday. NPO past MN saturday. otherwise continue current mgmt. 05/01: Continue current management and treatment plan. 05/02: continue current management and treatment plan. 05/03: ECT #9 completed uneventfully this morning. mood remains improved but pt still spending much of the day in bed with depressive facies. continue current mgmt. 05/04: appears a bit brighter, awake this morning. ECT #10 tomorrow. continue current mgmt. 05/05: poorer hygiene, not showering. reporting mood trending down again. open to increasing modafanil. continue current mgmt for now. 05/06: reports he showered and mood somewhat improved. amenable to increase modafanil to 300 mg as of tomorrow. ECT tomorrow. NPO p MN. 05/07: ECT #10 completed. mood trending better, more expressive. continue current mgmt. 05/08: mood improved, affective range improved. continue current mgmt. 05/09: mood remains improved, affect brighter. ECT tomorrow. continue current mgmt. 05/10: ECT #11 completed. Mood continues to improve. Will continue current med regimen/tx plan for now. 05/11: ECT #12 scheduled for tomorrow. Otherwise continue current tx plan 05/12: Minimal benefit w/ 12 ECT tx & Latuda 120 mg. Will hold off on further ECT for now and taper off Latuda due to lack of significant benefit. 05/13: Pt seems to have regressed somewhat based on his self-report and my review of his chart. 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 Untreated sleep apnea is less likely to contribute to pt's presentation based on sleep study from Mar 2025 following signifiant WL s/p gastric sleeve. Per [facility] neuro consult notes, pt has had memory impairment since the CVA in 2019. 05/14: Pt is visible in milieu this am. Switched to bupropion IR this am. Will d/c Latuda 20 mg due to minimal benefit at max dose. Will defer further ECT for now. 05/16/2025: No changes. Noted ECT being deferred 05/17/25: Pt remains signif depressed. affect is a bit more reactive than t/w's last encounter with him on 05/14. Will titrate bupropion IR from 75 mg bid to 100 mg bid. Per my discussion w/ Dr. Ward, pt had responded positively to lorazepam earlier in his admission. Will start on .5 mg tid for now. Will likely schedule ECT for Saturday- discussed with Dr. Ward. 05/18/25: Continue current med regimen/tx plan. Unable to get pt on list for ECT for tomorrow but will consider for Sat, 05/2105/19/25: Pt notes improvement in mood, denies SI. Continue currnt med regimen/tx plan 05/20/25: Pt again reports improved mood, denies SI. ECT ordered for tomorrow. 05/21/25: Pt was not put on schedule for ECT for today but given that he reports improved mood this wk, will defer further ect for now and remove midline. Likely d/c next 05/22: Continue current regimen and plans Reason for continued inpatient stay Substantial Risk for: med/psych decompensation Time Spent With Patient Time: Total time managing care of this patient today ____ minutes.
[2025-05-22 19:24] VITALS: BP 117/57; PULSE 74; RESP 16; TEMP 36.8; O2SAT 99
[2025-05-23 08:00] VITALS: BP 116/69; PULSE 66; RESP 18; TEMP 36.2; O2SAT 100
[2025-05-23] MEDS: Aspirin Enteric Coated 81 MG TABLET.DR PO (08:57)
--- NOTE | 2025-05-23 10:45 | P.PNPSI_ITS ---
Subjective Subjective Date of Service: 05/23/25 Reason For Visit: SI depression Subjective Notes: Conditional Voluntary Interim History: Patient was seen and discussed in rounds today. Records and plans were reviewed. He is mostly in his room, on the bed with little social interaction. Eating and sleeping adequately and sleeping excessively. He does not feel that the ECT treatment was helpful. No complaints. No changes were made today. No active SI Review of Systems Review of Systems Yes all other systems are reviewed and are negative Mental Status Exam Mental Status Exam Narrative: In today's visit he is alert, oriented and pleasant. Normal speech. Little eye contact. Affect is subdued and constricted. No signs of psychosis. No SI. No gross cognitive deficits. Judgment is intact Diagnostics Vital Signs (24Hr): Vital Signs - 24 hr 05/22/25 19:24 05/23/25 08:00 Temperature 98.2 F 97.2 F Pulse Rate 74 66 Respiratory Rate 16 18 Blood Pressure 117/57 L 116/69 Pulse Oximetry 99 100 Oxygen Delivery Method Room Air Room Air BMI result Body Mass Index 31.8 Labs 04/23/25 10:35 04/23/25 10:35 Imaging Radiology Impressions: ITS Impressions Head CT 04/06/25 13:54 IMPRESSION: No acute intracranial hemorrhage. Bifrontal bitemporal lobes atrophy. Electronically signed by: Roque Guillen MD 04/06/2025 02:15 PM EDT Medications Medications Current Medications Acetaminophen (Acetaminophen 325 Mg Tablet) 650 mg PO Q6H PRN PRN Reason: Headache/Pain, Scale 1-10 Last Admin: 04/14/25 20:25 Dose: 650 mg Al Hydroxide/Mg Hydroxide (Magnesium Hydrox/Alum Hydrox 30 Ml Oral.Susp) 30 ml PO Q6H PRN PRN Reason: Heartburn/Nausea Aspirin (Aspirin Enteric Coated 81 Mg Tablet.) 81 mg PO DAILY [facility] Last Admin: 05/23/25 08:57 Dose: 81 mg Atorvastatin Calcium (Atorvastatin Calcium 20 Mg Tablet) 20 mg PO BEDTIME JENNIFER Last Admin: 05/22/25 20:09 Dose: 20 mg Bisacodyl (Bisacodyl 5 Mg Tablet.) 10 mg PO DAILY PRN PRN Reason: severe Constipation Last Admin: 04/20/25 08:57 Dose: 10 mg Bupropion HCl (Bupropion Hcl 100 Mg Tablet) 100 mg PO BID@0900,1700 [facility] Last Admin: 05/23/25 08:57 Dose: 100 mg Docusate Sodium (Docusate Sodium 100 Mg Capsule) 100 mg PO BID PRN PRN Reason: constipation Hydroxyzine HCl (Hydroxyzine Hcl 25 Mg Tablet) 25 mg PO Q6H PRN PRN Reason: mild anxiety Last Admin: 03/26/25 23:24 Dose: 25 mg Lorazepam (Lorazepam 0.5 Mg Tablet) 0.5 mg PO TID [facility] Last Admin: 05/23/25 08:57 Dose: 0.5 mg Magnesium Hydroxide (Milk Of Magnesia 30 Ml Oral.Susp) 30 ml PO DAILY PRN PRN Reason: Constipation Last Admin: 04/17/25 10:24 Dose: 30 ml Modafinil (Modafinil 100 Mg Tablet) 300 mg PO DAILY [facility] Last Admin: 05/23/25 08:57 Dose: 300 mg Naloxone HCl (Naloxone Hcl 0.4 Mg/Ml Vial) 0.04 mg IVPUSH Q5M PRN PRN Reason: Excessive sedation or RR < 8 Naloxone HCl (Naloxone Hcl 0.4 Mg/Ml Vial) 0.04 mg IVPUSH Q5M PRN PRN Reason: Excessive sedation or RR < 8 Nicotine (Nicotine 21 Mg Patch.Td24) 21 mg TRANSDERMA DAILY PRN PRN Reason: nicotine craving Nicotine Polacrilex (Nicotine Polacrilex 2 Mg Gum) 2 mg BUCCAL Q2H PRN PRN Reason: Nicotine Cravings Olanzapine (Olanzapine 5 Mg Tablet) 5 mg PO BID PRN PRN Reason: agitation Ondansetron HCl (Ondansetron Odt 8 Mg Tab.Rapdis) 8 mg TRANSLINGU Q8H PRN PRN Reason: Nausea and Vomiting Polyethylene Glycol (Polyethylene Glycol 3350 17 Gm Powd.Pack) 17 gm PO DAILY PRN PRN Reason: constipation Senna (Sennosides 8.6 Mg Tablet) 17.2 mg PO BEDTIME PRN PRN Reason: Constipation Trazodone HCl (Trazodone Hcl 50 Mg Tablet) 50 mg PO BEDTIME MRX1 PRN PRN Reason: Insomnia Last Admin: 04/05/25 23:14 Dose: 50 mg Allergies Allergies Allergy/AdvReac Type Severity Reaction Status Date / Time pumpkin Allergy Unknown Unknown Verified 12/24/24 12:26 Assessment & Plan Assessment & Plan (1) Depression: Qualifiers: Depression Type: unspecified Qualified Code(s): F32.A - Depression, unspecified Status: Acute Code(s): F32.A - Depression, unspecified (2) CKD (chronic kidney disease): Qualifiers: Chronic kidney disease stage: stage 3 (moderate) Chronic kidney disease stage 3 subtype: stage 3a (GFR 45-59) Qualified Code(s): N18.31 - Chronic kidney disease, stage 3a Status: Acute Code(s): N18.9 - Chronic kidney disease, unspecified Assessment and Plan: Patient likely has some mild chronic kidney disease, 3a no proteinuria on most recent UA patient has mild renal disease, given medical history has low risk of developing ESRD requiring dialysis- ok for midline placement. Discussed with Dr Moody. (3) CVA (cerebral vascular accident): Status: Acute Code(s): I63.9 - Cerebral infarction, unspecified Plan 03/27: feels latuda 120 has been helpful. however, remains depressed. add wellbutrin XL 150 daily for depression, plan to increase to 300 mg daily in 3 days. may also consider ECT due to lack of improvement despite numerous recent hospitalizations + lethality of suicide attempts + recent self-abnegating behaviors. 03/28: no change in presentation, no requests or complaints. started wellbutrin 150 today. continue current mgmt 03/29/25: Slept well, no issues with appetite. Observed out on the unit, attended groups, engaging. Reports depression and 03/21, denies anxiety. Constricted affect, congruent with mood. Denies safety concerns. Compliant with medications. Denies side effects from Wellbutrin. Continue to encourage groups. 03/30/25: Patient slept for 6 hours, was medication compliant. He attended 2 groups yesterday, however today he is more isolated, in bed a lot more time, declines a couple groups. Reports depressed but no anxiety, flat affect, depressed, but cooperative during one-to-one assessment. He is receptive with the plan of Wellbutrin increased up to 300 mg for depression. Reports passive SI, denies plan or intention. Denies other safety concerns. Encourage patient to go to groups and shower daily. Increase Wellbutrin XL to 300 mg daily for depression. He reported that he has bipolar type II. 03/31: Laying in bed. keeping to self. showered. patient reports feeling depressed ; pt stated, I'm not having a good day. I don't want to do anything . flat affect. denies SI/HI/VH/AH. Per nursing, slept 8 hours. encouraged to attend groups. continue current tx plan. 04/01/25: Patient slept for 8 hours, poor meal intake yesterday but was medication compliant. Denies side effects. When asked about if he has poor appetite as he ate only 50 of breakfast, and 25 for lunch and not eating dinner, he said because I did not do the menu, so I got what I do not like . He shower yesterday, continued to reports depression 03/21. Denied anxiety. He does not feel any difference from Wellbutrin 150 when and when it was increased up to 300 mg. Denies SI/SIB/HI/AVH, isolative self, he plans to attend groups today. This provider spoke with patient in length regarding medication trials. Per his report, has been trying so many antidepressants they just do not work, and continued to be depressed. Some of them are Zoloft, Paxil, Effexor, Celexa, Prozac, Cymbalta, Lexapro. He also having history of taking Zyprexa more than 20 years ago due to hearing voices. Then the voices was calm. He never has a take it again after. History of Abilify but not sure if it is working as he can not recall. Regarding ADLs: He said that he had food at the [facility] twice a day, but he is not showering for many days despite the fact that staff asked him to do so I just do not care about being clean . Reports very low energy, low motivation, been increased suicidal thoughts and depression. He used to love music and reading but not interested in doing anything like that anymore. Reported that he had gastric sleeve surgery back in August 2023 which he lost 230 lb. He weight 447 lb prior to the surgery. He identified that after the surgery he has been more depressed slowly over months. There was a time that he wanted to starve myself so I can when asked is that you that he has stopped eating at home. He also identified that he feel more depressed after surgery as he is not able to over eating like he did before. Family mental health illnesses: Reports that who both of his parents was depressed. Mom 11 years ago. 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 History of ECTs: Reports he had history of ECTs in 2010 when he was at in [facility].He felt worse after the treatment everything seems like a dream . He clarified that immediately after the treatment he feel that way which could be a side effects of ECT but not permanent. Educate patient on possible side effects ECTs. Patient denies having seizure during ECTs treatment, no seizure history no cardiac conditions/disease history. Reports history of hypertension, but not anymore. He also has been admitted to different hospitals for psychiatric admissions in the past couple of months. Reports staying at [facility] in December for a month. [facility] in the area names [facility]) in October for another month. Per email from his OP team- clinical director at [facility], they also express concerns of patient's conditions. It is noted that their concerns are very consistent with patient' report here on the unit. He also has been admitted to different hospitals for psychiatric admissions in the past couple of months. Reports staying at [facility] in December for a month. [facility] in the area names [facility]) in October for another month. Per email from his OP team- clinical director at [facility], they also express concerns of patient's conditions. It is noted that their concerns are very consistent with patient' report here on the unit. Alfredito has been in and out on inpatient level of care since October of this year, I believe every month, for a majority of the time. He was recently discharged from [facility] after a 1 month stay and within two hours of returning home wanted to return to the hospital, saying he was unwell, and within one day was sectioned by [facility], which is how he ended up with you now. He has been coming home and intentionally starving himself, even not eating for up to 1 week. We have known Alfredito for years and since this started in October, we have seen no significant improvement in his mental health or a return to baseline. In fact, we are observing his case as consistent with failure to thrive. We have been asking for him to be inpatient at [facility] or with you at [facility] for some time in order for him to be potentially considered for ECT level of treatment, if deemed appropriate. Multiple medication trials failture to target depressive symptoms. He will be a good candidate to get trial ECT treatment in combination with current medication regimens. Patient also agrees with the plan. We would start the treatment as soon as possible. Will discuss the case with in house psychiatrist-Dr. Ward to prepare for ECT treatment. Hope to start early next week. 04/02: Laying in bed. keeping to self. Patient continues to report feeling depressed; pt stated, I feel about the same. I spoke with the other provider and agreed to do ECT . He reports sleeping well. denies SI/HI/VH/AH. Encouraged to attend groups and shower. Continue current tx plan. 04/03: no changes- just started wellbutrin 04/04: no changes 04/05/25: report anxiety a 2-310 but still 8 for depression. No change since started Wellbutrin. He agrees to get Wellbutrin up to 450mg daily for depression. Isolative in room, staring up to the ceiling. Discuss with patient of option to start on Intuniv for severe depression. Patient declines it at this current time but agree to see Welbutrin increased would be helpful. He agrees with ECT. Encourage groups, he says he was at art group out to dinning area but there are too much so he went back to his room. Report not many groups offered over the weekends. 04/06/25: Patient slept for 6 hours, have a sleep study done last night. Reported that he did not sleep well. Appetite is okay. Mood is depressed 03/21, denies anxiety today. Denies suicidal thoughts, but reports he has passive SI yesterday intrusive, just do not Wanna live anymore . Denies hallucinations. Address with patient of why he having bowel movement in the shower. He said it is just one episode. Reports he feel constipated. Agree with Colace. He also inform regarding the ECT which was approved by the insurance. He compliant with medication, however reports he has not feeling any difference in terms of depression at since started on Wellbutrin. Encourage groups attendance. Observe him later on during the day reading at a table in dining area. Colace 100mg BID for constipation. ECT consult placed: Patient may be seen by tomorrow by Dr. Ward. Procedure done preparing for the ECT: Head CT scan negative, EKG normal sinus rhythm, Incomplete right bundle branch block. Borderline ECG_ no change when compare to previous EKG. Unremarkable CBC with diff. 04/07/25: Per hospitalist note: ECT risk stratification Patient without previous problems with anesthesia, has previously undergone ECT RCRI 0 points, no further cardiac workup or treatment indicated at this time EKG showed QT interval WNL, no evidence of ischemic changes Based on stated PMH, HPI, and physical exam, there are no apparent medical contraindications to the planned procedure. Patient is complaining of pelvic discomfort and constipation. We will add therapy with Senokot, MiraLax and obtain urinalysis to assess for urinary tract infection. Continue treatment with atorvastatin and aspirin for history of stroke and hyperlipidemia. 04/07/25: Patient compliant with medication, reports due to the pain abdominal, he could not sleep well last night. Continued to reports depressions 8/10, anxiety 4/10 today related to the pain. Denies suicidal thoughts or voices, isolated. Shower yesterday. Review with patient test need to be done prior to having ECT. Patient met with Dr. Ward and hospitalist for ECT clearance. Due to the pain, constipated, more laxative ordered today. Also UA other by hospitalist to rule out any infection. He is flat, low energy, low motivation, withdrawal, in room mostly, but come out to other rooms to talk to the providers 04/08/25: Patient slept for 8 hours, compliant with medications, denies side effect. Met with him in his room, reported that he slept better last night, having good bowel movement, denies diarrhea is. Informed him regarding the labs work/and UA that was negative to rule out UTI. Denies pain. Explained to patient regarding pre ECT procedures/test to prepare for the day that he going to start. We will start ECT on Saturday. Per Dr. Ward, we will taper down on Latuda, start him on Modafinil low dose to help with severe depression. Continued to reports moderate to severe depression. Denies suicidal thoughts or hallucinations. 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 He denied any significant or excessive drug exposure. I do not find any focal lesion, acute or chronic, suggestive of stroke. There was no contraindication to treatment with ECT. Otherwise treatment of this condition is supportive, symptomatic and conservative Taper down on Latuda from 120 down to 100 mg daily at 17:00 for mood. Start on Modefinil 100ng daily for severe depression, low energy, poor concentration, poor motivation. ECT will be scheduled next week on Saturday. We will received treatment for Saturday/Saturday and Saturday. 04/09/25: Patient denies pain, normal bowel movement, slept well and compliant with medications. Denies side effects. Denies suicidal thoughts or hallucinations but reports mild on anxiety and moderate to severe depression. Patient appeared to be disheveled. Encourage patient to be out of bed in attended to groups included OT groups which observe he is visible in day room after the conversation. The OT will do the [place] for pre ECT next week on Saturday prior the ECT. He started modafinil 50 mg this morning. Indication and side effects explained to patient. Patient is receptive with the plan. Correction: Modefinill 50mg daily. MOCA scheduled next week prior to ECT. 04/10:Laying in bed most of morning. Patient continues to report feeling depressed. He reports looking forward to ECT; pt stated, I think it will be a positive step to get ECT . denies SI/HI/VH/AH. Encouraged to get out of bed. Continue tx plan 04/11: Per nursing, pt did not get out of bed yesterday. Observed laying in bed this morning; encouraged to attend groups and shower. Patient continues to report feeling depressed. denies SI/HI/VH/AH. Encouraged to get out of bed. Continue tx plan. 04/12: continue current tx plan 04/13: stably depressed. PMR. start ECT tomorrow, otherwise continue current mgmt. NPO past MN. 04/14/25: got his first ECT treatment this afternoon. Patient slept for 6 hours, was medication compliant. However, this morning due to the delay of the ECT treatment, he was not happy about the delay into the afternoon. He appeared to be frustrated, irritable, and not cooperative with this provider I do not want to talk to anyone . I am done talking . I do not care when asked his last bowel movement. Per nursing, patient denies suicidal thoughts, other safety concerns. Reports he has no bowel movement x4 days. Medication this morning was held until after the ECT. He also was given citrate magnesium x1. Pending effect. 04/15: made bowel movement. ECT #2 tomorrow. no change in mood or presentation as of today. T/C increasing modafanil to 200 mg sometime next week. 04/16: completed ECT without incident. no FLOWERS today. no change in presentation otherwise. continue current mgmt. ECT #3 saturday. 04/17/2025: No changes. ECT # 3 Saturday04/19/202504/18: no changes 04/19: completed ECT #3 today. no FLOWERS, no change in presentation, no change in mood. continue current mgmt. T/C modafanil increase. 04/20: mood starting to improve. laughed, affect brighter and more flexible. ECT tomorrow, NPO after midnight. continue current mgmt otherwise. 04/21: irritable at afternoon ECT. short today. continue current mgmt. 04/22: not irritable, appears depressed, says mood is unchanged. ECT tomorrow. continue current mgmt. strongly consider increase in modafanil dosing. 04/23/2025: Patient seen ECT completed bilaterally. Patient with markedly poor ADLs almost catatonic like allowing himself to be covered in feces not showering or caring for himself. Change ECT to 0.25 would follow-up on response to bilateral treatment if to withdrawn would may be secondary to bilateral and might consider return to right unilateral. Wellbutrin lowered to 300 mg modafinil was started at 100 mg can consider increase to 150 mg targeting apathy lethargy. Patient started on lorazepam 1 mg p.o. t.i.d. had test doses and seemed significantly improved with more fluid speech and increase range of affect hold lorazepam night prior to ECT 04/24/25: Patient slept for 8 hours, no appetite issues. Denies SI/SIB/HI/AVH. Report anxiety a 2/10 and anxiety an 8/10 which he says he does not feel much different yet from ECT. He denies short term memory. He denies FLOWERS or tireness now but says shortly after ECT he had FLOWERS from yesterday which has been gone. He reports normal BM which laxative was held yesterday. Observed patient spent couple hours in dinning areas, eating out in activity room and spent time watching TV. Nursing also reports patient attended group in the art room as well. He also showered yesterday. He is visible, but quiet keep to self, flat affect, depressed mood. Slightly improvement compare to last visit that this provider saw him about 1-2 weeks ago. Ativan started yesterday which seem to have some effects. 04/25/25: Patient slept for 8 hours, compliant with medications, denies side effects. Deny feeling tired on Ativan. Per nursing patient have incident of incontinence of feces yesterday. Therefore Colace and MiraLax and senna has been held. Notes on to hold when has loose stools. Patient denies safety concerns. Reported the same anxiety and depression level. He is more in bed today compared to yesterday but was out for meals. Flat affect, fair eye contact, resting in room. Attended no groups. No changes in terms of mental status. May have ECT on Saturday morning. 04/26: in bed after ECT. flat, withdrawn, slowed, soft. states his mood remains the same as before, no better and no worse. agreeable to increase modafanil to 150 mg. no apparent cognitive or memory deficits. 04/27: perhaps less slowed than recently. hold ativan this afternoon and overnight. NPO past MN. continue bifrontal ECT in the morning. 04/28: faster and more flexible affect. feels he is improving. decrease ativan from 1 mg TID to 0.5 mg TID. otherwise continue current mgmt. 04/29: as for yesterday. continue current mgmt. hold ativan after 3, NPO after MN. ECT in the morning. 04/30: ECT today uneventful. increase modafanil to 200 tomorrow. DC ativan after saturday morning dose. ECT saturday. NPO past MN saturday. otherwise continue current mgmt. 05/01: Continue current management and treatment plan. 05/02: continue current management and treatment plan. 05/03: ECT #9 completed uneventfully this morning. mood remains improved but pt still spending much of the day in bed with depressive facies. continue current mgmt. 05/04: appears a bit brighter, awake this morning. ECT #10 tomorrow. continue current mgmt. 05/05: poorer hygiene, not showering. reporting mood trending down again. open to increasing modafanil. continue current mgmt for now. 05/06: reports he showered and mood somewhat improved. amenable to increase modafanil to 300 mg as of tomorrow. ECT tomorrow. NPO p MN. 05/07: ECT #10 completed. mood trending better, more expressive. continue current mgmt. 05/08: mood improved, affective range improved. continue current mgmt. 05/09: mood remains improved, affect brighter. ECT tomorrow. continue current mgmt. 05/10: ECT #11 completed. Mood continues to improve. Will continue current med regimen/tx plan for now. 05/11: ECT #12 scheduled for tomorrow. Otherwise continue current tx plan 05/12: Minimal benefit w/ 12 ECT tx & Latuda 120 mg. Will hold off on further ECT for now and taper off Latuda due to lack of significant benefit. 05/13: Pt seems to have regressed somewhat based on his self-report and my review of his chart. 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 Untreated sleep apnea is less likely to contribute to pt's presentation based on sleep study from Mar 2025 following signifiant WL s/p gastric sleeve. Per [facility] neuro consult notes, pt has had memory impairment since the CVA in 2019. 05/14: Pt is visible in milieu this am. Switched to bupropion IR this am. Will d/c Latuda 20 mg due to minimal benefit at max dose. Will defer further ECT for now. 05/16/2025: No changes. Noted ECT being deferred 05/17/25: Pt remains signif depressed. affect is a bit more reactive than t/w's last encounter with him on 05/14. Will titrate bupropion IR from 75 mg bid to 100 mg bid. Per my discussion w/ Dr. Ward, pt had responded positively to lorazepam earlier in his admission. Will start on .5 mg tid for now. Will likely schedule ECT for Saturday- discussed with Dr. Ward. 05/18/25: Continue current med regimen/tx plan. Unable to get pt on list for ECT for tomorrow but will consider for Sat, 05/2105/19/25: Pt notes improvement in mood, denies SI. Continue currnt med regimen/tx plan 05/20/25: Pt again reports improved mood, denies SI. ECT ordered for tomorrow. 05/21/25: Pt was not put on schedule for ECT for today but given that he reports improved mood this wk, will defer further ect for now and remove midline. Likely d/c next 05/22: Continue current regimen and plans 05/23: Continue current regimen and plans Reason for continued inpatient stay Substantial Risk for: med/psych decompensation Time Spent With Patient Time: Total time managing care of this patient today ____ minutes.
[2025-05-23 20:00] VITALS: BP 111/75; PULSE 100; RESP 16; TEMP 36.9; O2SAT 97
[2025-05-24 08:00] VITALS: BP 114/74; PULSE 68; RESP 18; TEMP 36.7; O2SAT 99
[2025-05-24] MEDS: Aspirin Enteric Coated 81 MG TABLET.DR PO (09:00)
--- NOTE | 2025-05-24 09:28 | HO.PSYCHPN ---
Subjective Subjective Date of Service: 05/24/25 Reason For Visit: SI depression Subjective Notes: Conditional Voluntary Interim History: Patient was seen and discussed in rounds today. Records and plans were reviewed. He continues to be very isolative and on his bed. He claims that he does come out some. Continues to be depressed and anxious. No SI. No AVH. No changes were made today Review of Systems Review of Systems Yes all other systems are reviewed and are negative Mental Status Exam Mental Status Exam Narrative: In today's visit he is alert, oriented and pleasant. Normal speech. Little eye contact. Affect is subdued and constricted. No signs of psychosis. No SI. No gross cognitive deficits. Denies SI. Judgment is intact Diagnostics Vital Signs (24Hr): Vital Signs - 24 hr 05/23/25 20:00 05/24/25 08:00 Temperature 98.4 F 98.1 F Pulse Rate 100 68 Respiratory Rate 16 18 Blood Pressure 111/75 114/74 Pulse Oximetry 97 99 Oxygen Delivery Method Room Air Room Air BMI result Body Mass Index 31.8 Labs 04/23/25 10:35 04/23/25 10:35 Imaging Radiology Impressions: ITS Impressions Head CT 04/06/25 13:54 IMPRESSION: No acute intracranial hemorrhage. Bifrontal bitemporal lobes atrophy. Electronically signed by: Roque Guillen MD 04/06/2025 02:15 PM EDT Medications Medications Current Medications Acetaminophen (Acetaminophen 325 Mg Tablet) 650 mg PO Q6H PRN PRN Reason: Headache/Pain, Scale 1-10 Last Admin: 04/14/25 20:25 Dose: 650 mg Al Hydroxide/Mg Hydroxide (Magnesium Hydrox/Alum Hydrox 30 Ml Oral.Susp) 30 ml PO Q6H PRN PRN Reason: Heartburn/Nausea Aspirin (Aspirin Enteric Coated 81 Mg Tablet.) 81 mg PO DAILY [facility] Last Admin: 05/24/25 09:00 Dose: 81 mg Atorvastatin Calcium (Atorvastatin Calcium 20 Mg Tablet) 20 mg PO BEDTIME [facility] Last Admin: 05/23/25 20:51 Dose: 20 mg Bisacodyl (Bisacodyl 5 Mg Tablet.) 10 mg PO DAILY PRN PRN Reason: severe Constipation Last Admin: 04/20/25 08:57 Dose: 10 mg Bupropion HCl (Bupropion Hcl 100 Mg Tablet) 100 mg PO BID@0900,1700 [facility] Last Admin: 05/24/25 09:00 Dose: 100 mg Docusate Sodium (Docusate Sodium 100 Mg Capsule) 100 mg PO BID PRN PRN Reason: constipation Hydroxyzine HCl (Hydroxyzine Hcl 25 Mg Tablet) 25 mg PO Q6H PRN PRN Reason: mild anxiety Last Admin: 03/26/25 23:24 Dose: 25 mg Lorazepam (Lorazepam 0.5 Mg Tablet) 0.5 mg PO TID [facility] Last Admin: 05/24/25 09:00 Dose: 0.5 mg Magnesium Hydroxide (Milk Of Magnesia 30 Ml Oral.Susp) 30 ml PO DAILY PRN PRN Reason: Constipation Last Admin: 04/17/25 10:24 Dose: 30 ml Modafinil (Modafinil 100 Mg Tablet) 300 mg PO DAILY [facility] Last Admin: 05/24/25 08:59 Dose: 300 mg Naloxone HCl (Naloxone Hcl 0.4 Mg/Ml Vial) 0.04 mg IVPUSH Q5M PRN PRN Reason: Excessive sedation or RR < 8 Naloxone HCl (Naloxone Hcl 0.4 Mg/Ml Vial) 0.04 mg IVPUSH Q5M PRN PRN Reason: Excessive sedation or RR < 8 Nicotine (Nicotine 21 Mg Patch.Td24) 21 mg TRANSDERMA DAILY PRN PRN Reason: nicotine craving Nicotine Polacrilex (Nicotine Polacrilex 2 Mg Gum) 2 mg BUCCAL Q2H PRN PRN Reason: Nicotine Cravings Olanzapine (Olanzapine 5 Mg Tablet) 5 mg PO BID PRN PRN Reason: agitation Ondansetron HCl (Ondansetron Odt 8 Mg Tab.Rapdis) 8 mg TRANSLINGU Q8H PRN PRN Reason: Nausea and Vomiting Polyethylene Glycol (Polyethylene Glycol 3350 17 Gm Powd.Pack) 17 gm PO DAILY PRN PRN Reason: constipation Senna (Sennosides 8.6 Mg Tablet) 17.2 mg PO BEDTIME PRN PRN Reason: Constipation Trazodone HCl (Trazodone Hcl 50 Mg Tablet) 50 mg PO BEDTIME MRX1 PRN PRN Reason: Insomnia Last Admin: 04/05/25 23:14 Dose: 50 mg Allergies Allergies Allergy/AdvReac Type Severity Reaction Status Date / Time pumpkin Allergy Unknown Unknown Verified 05/15/25 12:26 Assessment & Plan Assessment & Plan (1) Bipolar I disorder with depression, severe: Status: Acute Code(s): F31.4 - Bipolar disorder, current episode depressed, severe, without psychotic features Plan Patient with questionable history of CVA check head CT patient with somewhat slowed mentation marked depression with psychomotor retardation. Check B12 folate TSH patient does have chronic depression homeless disconnected from support system would benefit from intensive case management post discharge <del>given</del> <del>apathy</del> <del>lethargy</del> <del>might</del> <del>benefit</del> <del>from</del> <del>modafinil</del> <del>given</del> <del>history</del> <del>of</del> <del>sleep</del> <del>apnea</del> <del>Would</del> <del>also</del> <del>consider</del> <del>trials</del> <del>of</del> <del>Abilify</del> <del>Vraylar</del> <del>lithium</del> <del>Patient</del> <del>is</del> <del>a</del> <del>candidate</del> <del>for</del> <del>ECT</del> <del>given</del> <del>intensity</del> <del>of</del> <del>depression</del> <del>history</del> <del>of</del> <del>suicide</del> <del>attempts</del> 05/24: Continue current regimen and plans. Reason for continued inpatient stay Substantial Risk for: med/psych decompensation Time Spent With Patient Time: Total time managing care of this patient today ____ minutes.
[2025-05-24 20:00] VITALS: PULSE 81; RESP 16; TEMP 36.2; O2SAT 100
[2025-05-25 07:59] VITALS: BP 120/58; PULSE 63; RESP 18; TEMP 36.2; O2SAT 97
[2025-05-25] MEDS: Aspirin Enteric Coated 81 MG TABLET.DR PO (08:30)
--- NOTE | 2025-06-18 16:22 | HO.PSYCHPN ---
Subjective Subjective Date of Service: 05/18/25 Reason For Visit: SI depression Diagnostics Vital Signs (24Hr): BMI result Body Mass Index 31.8 Labs 04/23/25 10:35 04/23/25 10:35 Imaging Radiology Impressions: ITS Impressions Head CT 04/06/25 13:54 IMPRESSION: No acute intracranial hemorrhage. Bifrontal bitemporal lobes atrophy. Electronically signed by: Roque Guillen MD 04/06/2025 02:15 PM EDT RP Medications Allergies Allergies Allergy/AdvReac Type Severity Reaction Status Date / Time pumpkin Allergy Unknown Unknown Verified 06/25/25 14:15 Assessment & Plan Assessment & Plan (1) Bipolar I disorder with depression, severe: Status: Acute Code(s): F31.4 - Bipolar disorder, current episode depressed, severe, without psychotic features Plan Patient with questionable history of CVA check head CT patient with somewhat slowed mentation marked depression with psychomotor retardation. Check B12 folate TSH patient does have chronic depression homeless disconnected from support system would benefit from intensive case management post discharge <del>given</del> <del>apathy</del> <del>lethargy</del> <del>might</del> <del>benefit</del> <del>from</del> <del>modafinil</del> <del>given</del> <del>history</del> <del>of</del> <del>sleep</del> <del>apnea</del> <del>Would</del> <del>also</del> <del>consider</del> <del>trials</del> <del>of</del> <del>Abilify</del> <del>Vraylar</del> <del>lithium</del> <del>Patient</del> <del>is</del> <del>a</del> <del>candidate</del> <del>for</del> <del>ECT</del> <del>given</del> <del>intensity</del> <del>of</del> <del>depression</del> <del>history</del> <del>of</del> <del>suicide</del> <del>attempts</del> 05/24: Continue current regimen and plans. Time Spent With Patient Time: Total time managing care of this patient today ____ minutes.
--- NOTE | 2025-07-10 15:53 | PM.PSYDC ---
DS: Providers Provider Date of Service: 05/25/25 Date of admission: 03/26/25 20:25 Date of discharge: 05/25/25 Primary care physician: Sonja Velasco MD Attending physician on admission: Jake Thomas Consults: 04/06/25 13:12 Consult to Hospitalist Routine Comment: Consulting Provider[place] [facility] Reason For Exam: preop eval ect Consult to Psychiatry Routine Consulting Provider: [facility] Reason for consultation: ECT Has provider been notified: Yes 04/07/25 16:45 Consult to Neurology Routine Consulting Provider: [facility] Reason for consultation: hx cva reported ? frontal temp changes see ct Has provider been notified: No 05/03/25 08:51 Consult to Nephrology Routine Consulting Provider: [facility] Reason for consultation: midline needed, GFR 54. IR wants consult with renal. Has provider been notified: No Attending physician on discharge: Debora Stallings DS: Diagnosis Discharge Diagnosis (1) Bipolar I disorder with depression, severe: Status: Acute DS: Medications Discharge Medications Home Medications: Home Medications ?Medication ?Instructions ?Recorded ?Confirmed lorazepam 2 mg tablet 2 mg PO BID 06/25/25 06/25/25 Previous Rx's ?Medication ?Instructions ?Recorded aspirin 81 mg tablet,delayed 81 mg PO DAILY 30 days #30 tabs 05/25/25 release atorvastatin 20 mg tablet 20 mg PO BEDTIME 30 days #30 tabs 05/25/25 bupropion HCl 100 mg tablet 100 mg PO BID 30 days #60 tabs 07/05/25 bupropion HCl 75 mg tablet 37.5 mg (1/2 x 75 mg) PO DAILY 30 07/05/25 days #15 tabs lithium carbonate 300 mg capsule 300 mg PO TID 30 days #90 caps 07/05/25 trazodone 50 mg tablet 50 mg PO BEDTIME MRX1 PRN Insomnia 07/05/25 30 days #60 tabs Mental Status Exam Mental Status Exam Narrative: Appearance: Disheveled. Good eye contact Attitude: Cooperative Speech: limited speech, otherwise wnl Motor activity: Calm and without any tics, tremors or dyskinesias. Mood: depressed and anxious but a little better overall Affect: blunted Thought process: goal directed Thought content: Denies SI, violent ideation Perception: Denies AHVH. Does not appear to respond to internal stimuli Insight: fair Judgment: fair Data Imaging Diagnostic Imaging Impressions Head CT 04/06/25 13:54 IMPRESSION: No acute intracranial hemorrhage. Bifrontal bitemporal lobes atrophy. Electronically signed by: Roque Guillen MD 04/06/2025 02:15 PM EDT DS: Summary Hospital Course Hospital Course: Per psych admission note from admitting psychiatrist: per [facility] crisis eval, pt was seen at [facility] at the request of staff due to concerns about his inability to care for himself due to depression. staff reported multiple hospitalizations spring 2024, most recently having been discharged from [facility] 03/25/25. staff reported pt was recently hospitalized due to failure to thrive, having stopped eating. he was also recently referred to [facility] for dehydration due to not drinking. staff at [facility] reported pt has not been engaging in ADLs, which they attribute to depression. he was referred to the ED for evaluation. [facility] order picker noted pt reported he is facing eviction from his room at [facility] due to non-payment of rent. on interview with MD on M3, pt reports he has just been taking latuda 120 mg daily recently as far as psych meds go. he feels it has been somewhat helpful, but clearly inadequately so on its own. R/B of various augmentation strategies discussed and pt agrees to trial of wellbutrin. serotonergic medications discouraged due to bipolar Dx. pt denies trials on lithium or stimulants. also reports h/o ECT but believes it was not helpful for him; details unclear. he is able to identify as target Sx amotivation and anergia. Initial tx plan: Feels latuda 120 has been helpful. however, remains depressed. add wellbutrin XL 150 daily for depression, plan to increase to 300 mg daily in 3 days. may also consider ECT due to lack of improvement despite numerous recent hospitalizations + lethality of suicide attempts + recent self-abnegating behaviors. 03/29/25: Slept well, no issues with appetite. Observed out on the unit, attended groups, engaging. Reports depression and 8/10, denies anxiety. Constricted affect, congruent with mood. Denies safety concerns. Compliant with medications. Denies side effects from Wellbutrin. Continue to encourage groups. 03/30/25: Reports depressed but no anxiety, flat affect, depressed, but cooperative during one-to-one assessment. He is receptive with the plan of Wellbutrin increased up to 300 mg for depression. Reports passive SI, denies plan or intention. Increase Wellbutrin XL to 300 mg daily for depression. He reported that he has bipolar type II. 04/01/25: Patient slept for 8 hours, poor meal intake yesterday but was medication compliant. Denies side effects. When asked about if he has poor appetite as he ate only 50 of breakfast, and 25 for lunch and not eating dinner, he said because I did not do the menu, so I got what I do not like . Covering psychiatrist discussed prior med trials with pt- Per his report, has been trying so many antidepressants they just do not work, and continued to be depressed. Some of them are Zoloft, Paxil, Effexor, Celexa, Prozac, Cymbalta, Lexapro. He also having history of taking Zyprexa more than 20 years ago due to hearing voices. Then the voices was calm. He never has a take it again after. History of Abilify but not sure if it is working as he can not recall. Regarding ADLs: He said that he had food at the snf twice a day, but he is not showering for many days despite the fact that staff asked him to do so I just do not care about being clean . Reports very low energy, low motivation, been increased suicidal thoughts and depression. He used to love music and reading but not interested in doing anything like that anymore. Reported that he had gastric sleeve surgery back in August 2023 which he lost 230 lb. He weight 447 lb prior to the surgery. He identified that after the surgery he has been more depressed slowly over months. There was a time that he wanted to starve myself so I can . He also identified that he feel more depressed after surgery as he is not able to over eating like he did before. History of ECTs: Reports he had history of ECTs in 2010 when he was at in [facility].He felt worse after the treatment everything seems like a dream . He clarified that immediately after the treatment he feel that way which could be a side effects of ECT but not permanent. Educate patient on possible side effects ECTs. Patient denies having seizure during ECTs treatment, no seizure history no cardiac conditions/disease history. Reports history of hypertension, but not anymore. He also has been admitted to different hospitals for psychiatric admissions in the past couple of months. Reports staying at [facility] in December for a month. New hospital in the area names [facility] in October for another month. 04/05/25: report anxiety a 2-3/10 but still 8/ for depression. He agrees to get Wellbutrin up to 450mg daily for depression. Isolative in room, staring up to the ceiling. Discuss with patient of option to start on Intuniv for severe depression. Patient declines it at this current time but agree to see Welbutrin increased would be helpful. He agrees with ECT. W/U prior to ECT: Head CT scan negative, EKG normal sinus rhythm, Incomplete right bundle branch block. Borderline ECG_ no change when compare to previous EKG. Unremarkable CBC with diff. Pt was medically cleared to undergo ECT 04/07/25: He is flat, low energy, low motivation, withdrawal, in room mostly, but come out to other rooms to talk to the providers 04/08/25: He will start ECT on Saturday. Per Dr. Ward's recommendations- Latuda tapered from 120 to 100, start 50 mg modafinil to help with severe depression. Continued to reports moderate to severe depression. Denies suicidal thoughts or hallucinations. per neurology note who saw patient today for ECT clearance He has diffuse cerebral central and cortical atrophy for his age, which could happened from excessive exposure to alcohol or drugs but also from genetic reasons. He denied any significant or excessive drug exposure. I do not find any focal lesion, acute or chronic, suggestive of stroke. There was no contraindication to treatment with ECT. Otherwise treatment of this condition is supportive, symptomatic and conservative 04/14: Started ECT 04/16: completed ECT #2 without incident. No changein presentation 04/19: completed ECT #3 today. no change in presentation, no change in mood 04/20: mood starting to improve. laughed, affect brighter and more flexible. 04/21: ECT #4 04/23/2025: ECT #5 - bilateral. Patient with markedly poor ADLs almost catatonic like allowing himself to be covered in feces not showering or caring for himself. Change ECT to 0.25 would follow-up on response to bilateral treatment if to withdrawn would may be secondary to bilateral and might consider return to right unilateral. Wellbutrin lowered to 300 mg modafinil was started at 100 mg can consider increase to 150 mg targeting apathy lethargy. Patient started on lorazepam 1 mg p.o. t.i.d. had test doses and seemed significantly improved with more fluid speech and increase range of affect hold lorazepam night prior to ECT 04/26: in bed after ECT. flat, withdrawn, slowed, soft. states his mood remains the same as before, no better and no worse. agreeable to increase modafanil to 150 mg. no apparent cognitive or memory deficits. 04/27: perhaps less slowed than recently. 04/28: faster and more flexible affect. feels he is improving. decrease ativan from 1 mg TID to 0.5 mg TID. otherwise continue current mgmt. 04/30: ECT today uneventful. increase modafanil to 200 tomorrow. DC ativan after saturday morning dose. ECT saturday. 05/03: ECT #9 completed uneventfully this morning. mood remains improved but pt still spending much of the day in bed with depressive facies. 05/05: poorer hygiene, not showering. reporting mood trending down again. 05/06: reports he showered and mood somewhat improved. amenable to increase modafanil to 300 mg as of tomorrow. 05/07: ECT #10 completed. mood trending better, more expressive. c 05/08: mood improved, affective range improved. 05/09: mood remains improved, affect brighter. 05/10: ECT #11 completed. Mood continues to improve. Will continue current med regimen/tx plan for now. 05/12: Per this typewriter tester's discussion with pt and tx team-minimal benefit w/ 12 ECT tx. Will hold off on further ECT for now and taper off Latuda due to lack of significant benefit. 05/13: Pt seems to have regressed somewhat based on his self-report and my review of his chart. 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 Untreated sleep apnea is less likely to contribute to pt's presentation based on sleep study from Mar 2025 following signifiant WL s/p gastric sleeve. Per [facility] neuro consult notes, pt has had memory impairment since the CVA in 2019. 05/14: Pt is visible in milieu this am. Switched to bupropion IR this am. Will d/c Latuda 20 mg due to minimal benefit at max dose. 05/17/25: Pt remains signif depressed. affect is a bit more reactive than t/w's last encounter with him on 05/14. Will titrate bupropion IR from 75 mg bid to 100 mg bid. Per my discussion w/ Dr. Ward, pt had responded positively to lorazepam earlier in his admission. Will start on .5 mg tid for now. 05/19/25: Pt notes improvement in mood, denies SI. Continue currnt med regimen/tx plan 05/20/25: Pt again reports improved mood, denies SI. 05/25/25: Pt felt to be around his baseline- eating well. Poor hygiene, which pt reports is a chronic issue. Denies active SI and denies violent ideation, AH/VH. He feels safe w/ plan to d/c back to his snf and will attend [facility] [place]. Status at Discharge Functional status at discharge: independent ambulation Overall status at discharge: patient is progressing back to baseline Time Spent with Patient Time attestation: Total time managing care of this patient today ____ minutes. Time spent: Less than 30 minutes Discharge Plan Discharge Anticipated Discharge Date/Time: 05/25/25 10:15 Patient Disposition: Fdc Discharge Diagnosis: Bipolar Disorder, Unspecified Referrals: Stacy Meng (psychiatry) [Other] - 05/26/25 11:00 am Referral Note: in person appointment Humaira Delgado APRN [Nurse Practitioner, Internal Medicine] - 06/28/25 10:45 am Referral Note: 05-25-25 your follow up appt with your primary care provider is 06-28-25 @ 10:45am Discharge Medications: Continued atorvastatin 20 mg tablet 20 mg PO BEDTIME 30 Days Qty: 30 0RF aspirin 81 mg tablet,delayed release (DR/EC) 81 mg PO DAILY 30 Days Qty: 30 0RF Discontinued lurasidone [Latuda] 120 mg tablet 120 mg PO DAILY@1700 30 Days Qty: 30 0RF Rx Instructions: must administer with food (at least 350 calories) No Action lorazepam 2 mg Tablet 2 mg PO BID bupropion HCl 100 mg Tablet 100 mg PO BID 30 Days Qty: 60 0RF Rx Instructions: Take at 9:00 am and 7 pm bupropion HCl 75 mg Tablet 37.5 mg PO DAILY 30 Days Qty: 15 0RF Rx Instructions: Take at 1:00 pm lithium carbonate 300 mg Capsule 300 mg PO TID 30 Days Qty: 90 0RF trazodone 50 mg Tablet 50 mg PO BEDTIME MRX1 PRN (Reason: Insomnia) 30 Days Qty: 60 0RF Discharge Orders: Discharge Order (Routine); Ordered 05/25/25 Ordered By: Debora Stallings Diet: Regular diet Activity on Discharge: No Restrictions Stand Alone Forms: Patient Portal Discharge page, Community Support Print Language: Haitian Care Plan Goals: Continue taking your medication as prescribed Health Concerns: Depression Plan of Treatment: Follow up with your psychiatric provider, PCP and other outpatient providers Take your medication as prescribed Assessment: Risk assessment at the time of discharge: Patient was interviewed on the day of discharge and found to be fully oriented. He endorsed passive SI, without any plan or intent. Denied violent ideation. Pt has improved insight and judgment and plans to continue treatment Pt is not at imminent risk of harm to self or others and has a safety plan that includes presenting to the closest ER or calling 911 if feeling unsafe. Pt has been observed closely by unit staff and has not engaged in any behaviors that suggest dangerous to self or others and has demonstrated appropriate bheaviors and impulse control. Discharge Date/Time: 05/25/25 11:22
== END 2025-05-25 11:22 | disposition home or self-care (01) | DRG 753 ==
LOC: HO.ED 16:45 → HO.PADLT16 20:42
PROVIDERS: Internal Medicine; Physician Assistant; Psychiatry & Neurology Psychiatry; Admitting Provider Nurse Practitioner Psychiatric/Mental Health; Emergency Provider Emergency Medicine; PCP Internal Medicine; Visit Provider Psychiatry & Neurology Psychiatry
PROC: GZB4ZZZ Other Electroconvulsive Therapy (ICD-10-PCS; CPT 90870; principal; 2025-04-14 12:30)
DX: F31.9 Bipolar disorder, unspecified (principal); R45.851 Suicidal ideations; N18.31 Chronic kidney disease, stage 3a; Z20.822 Contact with and (suspected) exposure to COVID-19; Z91.410 Personal history of adult physical and sexual abuse; Z79.82 Long term (current) use of aspirin; Z79.899 Other long term (current) drug therapy
CPT/HCPCS: 36410; 36415; 36569; 70450; 80048; 80053; 80061; 80143; 80179; 80307; 81001; 81003; 82947; 83036; 83880; 84439; 84443; 85025; 86780; 87637; 90870; 93005; 99285; C1751; J0330; J1596; J1805; J1885; J2704; J7120

== ENCOUNTER → 2025-03-26 14:47 | Outpatient (BNV) | payer MEDICAID, SELFPAY | PROVIDERS: Admitting Provider Nurse Practitioner Psychiatric/Mental Health; Emergency Provider Emergency Medicine; PCP Internal Medicine; Visit Provider Internal Medicine Cardiovascular Disease | DX: I45.10 Unspecified right bundle-branch block (principal) | CPT/HCPCS: 93010 ==

== ENCOUNTER 2025-03-26 20:25 | Outpatient (BNV) | payer MEDICAID, SELFPAY | END 2025-04-06 13:54 | PROVIDERS: Admitting Provider Nurse Practitioner Psychiatric/Mental Health; Emergency Provider Emergency Medicine; PCP Internal Medicine; Visit Provider Radiology Diagnostic Radiology | DX: G31.09 Other frontotemporal neurocognitive disorder (principal) | CPT/HCPCS: 70450 ==

== ENCOUNTER 2025-03-26 20:25 | Outpatient (BNV) | payer MEDICAID, SELFPAY | END 2025-04-06 13:15 | PROVIDERS: Admitting Provider Nurse Practitioner Psychiatric/Mental Health; Emergency Provider Emergency Medicine; PCP Internal Medicine; Visit Provider Internal Medicine | DX: I45.10 Unspecified right bundle-branch block (principal) | CPT/HCPCS: 93010 ==

== ENCOUNTER → 2025-03-26 20:25 | Outpatient (BNV) | payer OTHER, SELFPAY | PROVIDERS: Admitting Provider Nurse Practitioner Psychiatric/Mental Health; Emergency Provider Emergency Medicine; PCP Internal Medicine; Visit Provider Psychiatry & Neurology Psychiatry | DX: F33.2 Major depressive disorder, recurrent severe without psychotic features (principal) | CPT/HCPCS: 90870 ==

== ENCOUNTER → 2025-03-26 20:25 | Outpatient (BNV) | payer MEDICAID, SELFPAY | PROVIDERS: Admitting Provider Nurse Practitioner Psychiatric/Mental Health; Emergency Provider Emergency Medicine; PCP Internal Medicine; Visit Provider Nurse Practitioner Family | DX: N18.31 Chronic kidney disease, stage 3a (principal) | CPT/HCPCS: 99221 ==

== ENCOUNTER → 2025-03-26 20:25 | Outpatient (BNV) | payer MEDICAID, SELFPAY | PROVIDERS: Admitting Provider Nurse Practitioner Psychiatric/Mental Health; Emergency Provider Emergency Medicine; PCP Internal Medicine; Visit Provider Psychiatry & Neurology Neurology | DX: R93.0 Abnormal findings on diagnostic imaging of skull and head, not elsewhere classified (principal) | CPT/HCPCS: 99222 ==

== ENCOUNTER → 2025-03-26 20:25 | Outpatient (BNV) | payer OTHER, SELFPAY | PROVIDERS: Admitting Provider Nurse Practitioner Psychiatric/Mental Health; Emergency Provider Emergency Medicine; PCP Internal Medicine; Visit Provider Psychiatry & Neurology Psychiatry | DX: F31.4 Bipolar disorder, current episode depressed, severe, without psychotic features (principal) | CPT/HCPCS: 99231; 99233 ==

== ENCOUNTER → 2025-03-26 20:25 | Outpatient (BNV) | payer MEDICAID, SELFPAY | PROVIDERS: Admitting Provider Nurse Practitioner Psychiatric/Mental Health; Emergency Provider Emergency Medicine; PCP Internal Medicine; Visit Provider Internal Medicine | DX: F32.A Depression, unspecified (principal); Z90.3 Acquired absence of stomach [part of] | CPT/HCPCS: 99223 ==

== ENCOUNTER 2025-06-25 10:00 | Outpatient (RCR) | payer OTHER, SELFPAY ==
[2025-06-25 09:38] VITALS: BMI 35.7
[2025-06-25 09:39] VITALS: BP 110/72; PULSE 64; TEMP 37.2
--- NOTE | 2025-06-25 10:58 | PC.NURSE ---
Kamar stated he did not get his medications for the past two mornings as he stated the [facility]NA did not show up. He stated he scheduled a time with the VNA to show up to his home while he is in the program. He reports he has been getting his evening medications. I spoke to EMELY Fisher RN at [facility] to update patient's medication list and made him aware that Kamar's VNA did not show up for the past two mornings at the agreed upon time. He stated that the VNA will be at his house in the morning at the scheduled time moving forward and that the VNA was not able to make it to his house in time this morning prior to him coming to the program.
--- NOTE | 2025-06-25 13:45 | PC.NURSE ---
Kamar met with Dr. Chance and reportedly expressed to her that he wants to go to crisis for an evaluation as he does not know how this program will help him. Per Dr. Chance Kamar is feeling hopeless, despondent. Not attending to ADLs, not eating. SI with plan to walk into a river. Stated he does not want to be here anymore. He is being evicted from his apartment. He was recently inpatient at [facility] and was receiving ECT tx. He was recently discharged from [facility] in the beginning of June. He is not on a section 12. He wants to be evaluated and typically will reach out for help when he is in a crisis. Nurse to Nurse done with Kristal CHANG in [facility]. Care team Mame Israel notified.
--- NOTE | 2025-06-25 13:52 | PC.ADMIT ---
Patient is a 49 year old single male who was referred to [facility] by [facility] where he was admitted from 05/27-06/25/25. Patient experiencing increased depression and anxiety related to being notified of eviction where he has been living. Patient reports he rents a room. Patient stated, I live in a room above the retirement. They are giving me isaiah because of my mental health. I have no income and I owe them back rent. They haven't threatened me with a date yet . Asked what happened regarding being unable to pay rent. Patient stated, They took away my sher benefits. I tried for disability and I was denied three different times . My new terra cotta mason sucks . Patient has history of being hospitalized many times. Last inpatient LOC was at [facility]. Patient was discharged in March 2025. Patient is alert and oriented x4. He is calm and cooperative. He presented with depressed mood and blunted affect. Patient denied SI currently. Patient denied any plan of intent. Patient stated, When I come up to obstacle one of the options seems to be checking out . Patient has a history of many inpatient LOC hospitalizations. Last inpatient LOC was at [facility] inpatient behavioral health unit where he was admitted from 03/26-05/25/25. Patient also was [facility] from 05/27-06/25/25. Patient reports history of SA June 2020. Patient stated, I was at [facility] and ingested medications from hospital stays and ended up at [facility]. I told them (meaning staff). I did it in the bathroom and I came and told staff . Patient medications were updated with patient, patient's VNA, patient's pharmacy, and patient's prescriber paperwork that was sent to PHP.
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
== END 2025-06-25 23:59 | disposition admitted as inpatient to this hospital (09) ==
LOC: HO.PHPA 10:00
PROVIDERS: Visit Provider Psychiatry & Neurology Psychiatry
DX: F32.A Depression, unspecified (principal); F19.21 Other psychoactive substance dependence, in remission; Z79.899 Other long term (current) drug therapy
CPT/HCPCS: 90791; 90853

== ENCOUNTER → 2025-06-25 10:00 | Outpatient (BNV) | payer OTHER, SELFPAY | PROVIDERS: Visit Provider Psychiatry & Neurology Psychiatry | DX: F33.2 Major depressive disorder, recurrent severe without psychotic features (principal) | CPT/HCPCS: 99499 ==

== ENCOUNTER 2025-06-25 13:55 | Inpatient (IN) | payer OTHER, SELFPAY ==
--- OUTSIDE RECORDS SUMMARY | 2025-04-24 16:00 | XMS_ITS ---
Author Organization [facility] Address [address] [place] [address] Care Team Providers Care Bearingizer Name Role Phone JoshuaHumaira aguayo Primary Care Provider Migration, Provider Unavailable Unavailable REASON FOR VISIT [facility] To [facility] Conversion Encounter Medications Medication SIG (Take, Route, Frequency, Duration) Notes Start Date End Date Status Pyridoxine HCl 50 MG 1 tab(s) orally once a day for 90 days Not-Taking Latuda 60 MG 2 tabs orally once a day Active Cyanocobalamin 100 MCG 1/2 tab orally once a day Active Desvenlafaxine Succinate ER ( SUCCINATE) 100 MG 1 TAB(S) ORALLY ONCE A DAY *Please review and pick correct strength-formula tion from [employer] options. If intended option is not shown, discontinue and re-order from Quick Search* Active Vitamin D3 10 MCG 1 TAB(S) ORALLY ONCE A DAY *Please review and pick correct strength-formula tion from [employer] options. If intended option is not shown, discontinue and re-order from Quick Search* Active Voltaren 1 % 1 drop(s) applied topically 4 times a day as needed for left leg pain for 30 days Not-Taking Pantoprazole Sodium 40 MG 1 tab(s) orally once a day for 90 days Not-Taking Ferrous Sulfate 324 MG TAKE 2 TABLETS (648MG) BY MOUTH DAILY for 90 DAYS *Please review and pick correct strength-formula tion from [employer] options. If intended option is not shown, discontinue and re-order from Quick Search* Not-Taking hydrOXYzine Pamoate 50 MG 2 cap(s) orally every 4 hours 03/29/2021 Active Cyanocobalamin 1000 MCG/ML as directed intramuscularly once a month Active lamoTRIgine 100 MG 1 tab(s) orally daily Active CeleXA 40 MG 1 tab(s) orally once a day total 40mg 03/29/2021 Not-Taking ACETAMINOPHEN EXTRA STRENGTH GELCAPS 500 MG 2 TAB(S) ORALLY EVERY 8 HOURS for 90 DAYS *Please review for potential replacement for e-prescription and drug interaction check* Not-Taking OLANZapine 15 MG 1 tab(s) orally once a day Not-Taking Aspirin EC 81 MG 1 TAB(S) ORALLY ONCE A DAY for 90 DAYS pls deliver *Please review and pick correct strength-formula tion from [facility] options. If intended option is not shown, discontinue and re-order from Quick Search* Active Thiamine HCl 100 MG 1 tab(s) orally once a day for 90 days pls deliver 07/27/2024 Not-Taking Atorvastatin Calcium 20 MG 1 tab(s) orally once a day for 90 days pls deliver Active Encounters Encounter Location Date Provider Diagnosis [address] [address] 04/24/2025 Provider Migration Plan Of Treatment Next Appt Details Provider Name:Humaira vail, 07/06/2025 03:30:00 PM, [address] [place] [address], [id number], Progress Notes * Kamar ROMERODOB: [birth year] (49 yo M)Acc No.[id number]:04/24/2025 Patient: Kamar DE LA ROSA Provider: :1975 A ge:49 Y S ex:Male Date:04/24/2025 Address:[address] [place] [address] ( currently in [id number] Pcp:Humaira Delgado Subjective: * Chief Complaints: * 1 . [facility] To [facility] Conversion Encounter. * Medical History: * Medications: T aking Cyanocobalamin 1000 MCG/ML Solution as directed intramuscularly once a month , Taking Vitamin D3 10 MCG TABLET 1 TAB(S) ORALLY ONCE A DAY , Notes to Pharmacist: *Please review and pick correct strength-formulation from [employer] options. If intended option is not shown, discontinue and re-order from Quick Search*, Taking Desvenlafaxine Succinate ER ( SUCCINATE) 100 MG TABLET, EXTENDED RELEASE 1 TAB(S) ORALLY ONCE A DAY , Notes to Pharmacist: *Please review and pick correct strength-formulation from [employer] options. If intended option is not shown, discontinue and re-order from Quick Search*, Taking Cyanocobalamin 100 MCG Tablet 1/2 tab orally once a day , Taking Latuda 60 MG Tablet 2 tabs orally once a day , Taking Atorvastatin Calcium 20 MG Tablet 1 tab(s) orally once a day , Notes to Pharmacist: pls deliver, Taking Aspirin EC 81 MG DELAYED RELEASE TABLET 1 TAB(S) ORALLY ONCE A DAY , Notes to Pharmacist: pls deliver *Please review and pick correct strength-formulation from [employer] options. If intended option is not shown, discontinue and re-order from Quick Search*, Taking lamoTRIgine 100 MG Tablet 1 tab(s) orally daily , Taking hydrOXYzine Pamoate 50 MG Capsule 2 cap(s) orally every 4 hours , Not-Taking/PRN Pyridoxine HCl 50 MG Tablet 1 tab(s) orally once a day , Not-Taking/PRN Thiamine HCl 100 MG Tablet 1 tab(s) orally once a day , Notes to Pharmacist: pls deliver, Not-Taking/PRN OLANZapine 15 MG Tablet 1 tab(s) orally once a day , Not-Taking/PRN ACETAMINOPHEN EXTRA STRENGTH GELCAPS 500 MG TABLET 2 TAB(S) ORALLY EVERY 8 HOURS , Notes to Pharmacist: *Please review for potential replacement for e-prescription and drug interaction check*, Not-Taking/PRN CeleXA 40 MG Tablet 1 tab(s) orally once a day , Notes to Pharmacist: total 40mg, Not-Taking/PRN Ferrous Sulfate 324 MG DELAYED RELEASE TABLET TAKE 2 TABLETS (648MG) BY MOUTH DAILY , Notes to Pharmacist: *Please review and pick correct strength-formulation from [employer] options. If intended option is not shown, discontinue and re-order from Quick Search*, Not-Taking/PRN Pantoprazole Sodium 40 MG Tablet Delayed Release 1 tab(s) orally once a day , Not-Taking/PRN Voltaren 1 % Gel 1 drop(s) applied topically 4 times a day as needed for left leg pain Objective: * Vitals: Assessment: Plan: * Treatment: * Images: Billing Information: * Visit Code: * Procedure Codes: * Electronic signature of Prov ider Migration on 06/25/2025 at 10:37 PM EST Sign off status: Pending * Provider: Date: 0 04/24/2025 Generated for Jessica khalil/Miguel/Juan on: 1 08/25/2024 10:37 PM EST
--- OUTSIDE RECORDS SUMMARY | 2025-05-05 08:00 | XMS_ITS ---
Author Organization [facility] Address [address] [place] [address] Care Team Providers Care Director Of Rooms Name Role Phone Humaira Delgado Primary Care Provider [phone] REASON FOR VISIT Office: f/u Medications Medication SIG (Take, Route, Frequency, Duration) Notes Start Date End Date Status lamoTRIgine 100 MG 1 tab(s) orally daily Active Ferrous Sulfate 324 MG TAKE 2 TABLETS (648MG) BY MOUTH DAILY for 90 DAYS *Please review and pick correct strength-formula tion from [employer] options. If intended option is not shown, discontinue and re-order from Quick Search* Not-Taking hydrOXYzine Pamoate 50 MG 2 cap(s) orally every 4 hours 03/29/2021 Active Voltaren 1 % 1 drop(s) applied topically 4 times a day as needed for left leg pain for 30 days Not-Taking Pantoprazole Sodium 40 MG 1 tab(s) orally once a day for 90 days Not-Taking Thiamine HCl 100 MG 1 tab(s) orally once a day for 90 days pls deliver 07/27/2024 Not-Taking CeleXA 40 MG 1 tab(s) orally once [...] review and pick correct strength-formula tion from [employer] options. If intended option is not shown, discontinue and re-order from Quick Search* Active Desvenlafaxine Succinate ER ( SUCCINATE) 100 MG 1 TAB(S) ORALLY ONCE A DAY *Please review and pick correct strength-formula tion from [employer] options. If intended option is not shown, discontinue and re-order from Quick Search* Active Cyanocobalamin 100 MCG 1/2 tab orally once a day Active Atorvastatin Calcium 20 MG 1 tab(s) orally once a day for 90 days pls deliver Active Pyridoxine HCl 50 MG 1 tab(s) orally once a day for 90 days Not-Taking Latuda 60 MG 2 tabs orally once a day Active Vitamin D3 10 MCG 1 TAB(S) ORALLY ONCE A DAY *Please review and pick correct strength-formula tion from [employer] options. If intended option is not shown, discontinue and re-order from Quick Search* Active Cyanocobalamin 1000 MCG/ML as directed intramuscularly once a month Active Encounters Encounter Location Date Provider Diagnosis [address] [id number] 05/05/2025 Humaira Delgado Encounter for screening for COVID-19 Z11.52 Assessments Encounter Date Diagnosis (ICD Code) Assessment Notes Treatment Notes Treatment Clinical Notes Section Notes 05/05/2025 Encounter for screening for COVID-19 (ICD-10 - Z11.52) Covid screening is negative. Discussed in detail with patient how to practice social distancing by avoiding public spaces and crowds now, wearing a mask in public to keep nose and mouth covered, and washing hands frequently especially before eating and after using the bathroom. Return to clinic if you develop any symtpoms of concern to be rescreened or go to the emergency room if you are having concerning symptoms for COVID-19. 05/05/2025 Other Plan Of Treatment Treatment Notes Assessment Notes Encounter for screening for COVID-19 Cov id screening is negative. Discussed in detail with patient how to practice social distancing by avoiding public spaces and crowds now, wearing a mask in public to keep nose and mouth covered, and washing hands frequently especially before eating and after using the bathroom. Return to clinic if you develop any symtpoms of concern to be rescreened or go to the emergency room if you are having concerning symptoms for COVID-19. Next Appt Details Provider Name:Humaira vail, 07/06/2025 03:30:00 PM, [address] [facility], [place], [address], Progress Notes * Kamar ROMERO MelyssaDOB: [birth year] (49 yo M)Acc No.[id number]:05/05/2025 Progress Notes Patient: Kamar DE LA ROSA Provider: JESUS Powell :1975 A ge:49 Y S ex:Male Date:05/05/2025 Address:[address] [place] [address] ( currently in [facility] [place], [id number] Subjective: * Chief Complaints: * 1 . Office: f/u. * HPI: G eneral: Symptom Screen: - Fever in the last 1 week? Patient denies - New or worsening cough in the last 1 week? Patient denies. - Contact will known COVID exposure in last 5 days? Patient denies -new rash within last 3 weeks? Patient denies - Have you received the COVID-19 vaccine? - Have you received COVID-19 booster? - Have you been tested positive for COVID -19 in the last 7 days? If so where and why? 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 * ROS: N o acute C/P no acute SOB, No problem with urine, No heartburn or abdominal pain. Endorses being able to climb one fight of stairs without stopping due to SOB, Mood: stable, appetite: good, sleeping well. Denies new skin rashes. * Medical History: * Medications: T aking Cyanocobalamin 1000 MCG/ML Solution as directed intramuscularly once a month , Taking Vitamin D3 10 MCG TABLET 1 TAB(S) ORALLY ONCE A DAY , Notes to Pharmacist: *Please review and pick correct strength-formulation from [employer] options. If intended option is not shown, discontinue and re-order from Quick Search*, Taking Desvenlafaxine Succinate ER ( SUCCINATE) 100 MG TABLET, EXTENDED RELEASE 1 TAB(S) ORALLY ONCE A DAY , Notes to Pharmacist: *Please review and pick correct strength-formulation from [employer] options. If intended option is not shown, [...] *Please review and pick correct strength-formulation from [employer] options. If intended option is not shown, [...] *Please review and pick correct strength-formulation from [employer] options. If intended option is not shown, discontinue and re-order from Quick Search*, Not-Taking/PRN Pantoprazole Sodium 40 MG Tablet Delayed Release 1 tab(s) orally once a day , Not-Taking/PRN Voltaren 1 % Gel 1 drop(s) applied topically 4 times a day as needed for left leg pain Objective: * Vitals: Assessment: * Assessment: 1. E ncounter for screening for COVID-19 - Z11.52 (Primary) Plan: * Treatment: * Images: Billing Information: * Visit Code: * Procedure Codes: Care Plan Details* * Electronic signature of Emory Delgado on 06/25/2025 at 10:32 PM EST Sign off status: Pending * Provider: JESUS Powell Date: 0 05/05/2025 Generated for Jessica khalil/Miguel/Juan on: 1 08/25/2024 10:32 PM EST
--- OUTSIDE RECORDS SUMMARY | 2025-06-24 03:45 | XMS_ITS ---
Author Organization [facility] Address [address] [place] [address] Care Team Providers Care Spa Therapist Name Role Phone Humaira Delgado Primary Care Provider [facility], Nursing Unavailable [phone] REASON FOR VISIT lithium Medications Medication SIG (Take, Route, Frequency, Duration) Notes Start Date End Date Status CeleXA 40 MG 1 tab(s) orally once a day total 40mg 03/29/2021 Not-Taking ACETAMINOPHEN EXTRA STRENGTH GELCAPS 500 MG 2 TAB(S) ORALLY EVERY 8 HOURS for 90 DAYS *Please review for potential replacement for e-prescription and drug interaction check* Not-Taking Voltaren 1 % 1 drop(s) applied topically 4 times a day as needed for left leg pain for 30 days Not-Taking Pantoprazole Sodium 40 MG 1 tab(s) orally once a day for 90 days Not-Taking Ferrous Sulfate 324 MG TAKE 2 TABLETS (648MG) BY MOUTH DAILY for 90 DAYS *Please review and pick correct strength-formula tion from Netbiscuits options. If intended option is not shown, discontinue and re-order from Quick Search* Not-Taking OLANZapine 15 MG 1 tab(s) orally once a day Not-Taking Thiamine HCl 100 MG 1 tab(s) orally once a day for 90 days pls deliver 07/27/2024 Not-Taking Pyridoxine HCl 50 MG 1 tab(s) orally once a day for 90 days Not-Taking hydrOXYzine Pamoate 50 MG 2 cap(s) orally every 4 hours 03/29/2021 Not-Taking lamoTRIgine 100 MG 1 tab(s) orally daily Not-Taking Aspirin EC 81 MG 1 TAB(S) ORALLY ONCE A DAY for 90 DAYS pls deliver *Please review and pick correct strength-formula tion from Netbiscuits options. If intended option is not shown, discontinue and re-order from Quick Search* Active Latuda 60 MG 2 tabs orally once a day Not-Taking Cyanocobalamin 100 MCG 1/2 tab orally once a day Not-Taking Vitamin D3 10 MCG 1 TAB(S) ORALLY ONCE A DAY *Please review and pick correct strength-formula tion from Netbiscuits options. If intended option is not shown, discontinue and re-order from Quick Search* Not-Taking Cyanocobalamin 1000 MCG/ML as directed intramuscularly once a month Not-Taking Atorvastatin Calcium 20 MG 1 tab(s) orally once a day for 90 days pls deliver Active Desvenlafaxine Succinate ER ( SUCCINATE) 100 MG 1 TAB(S) ORALLY ONCE A DAY *Please review and pick correct strength-formula tion from Netbiscuits options. If intended option is not shown, discontinue and re-order from Quick Search* Not-Taking [place] Carbonate 300 MG 1 capsule BID Orally twice a day Active Ativan 2 MG Twice daily Orally twice a day Active Social History Tobacco Use: Social History Observation Description Date Details (start date - stop date) Former Smoker NA - NA Tobacco Use Assessment MU Question Answer Notes What is your current smoking status? former smok er How long has it been since you last smoked? > 10 years Vital Signs Temperature 97.2 degrees Fahrenheit 06/24/20 25 Height 69 in 06/24/2025 Oximetry 100 06/24/2025 Blood pressure systolic 115 06/24/20 25 Blood pressure diastolic 75 025 Encounters Encounter Location Date Provider Diagnosis [address] [address] 06/24/2025 Nursing [facility] Testicular hypofunction E29.1 ; Adult failure to thrive R62.7 ; Morbid (severe) obesity due to excess calories E66.01 and Major depressive disorder, recurrent, severe with psychotic symptoms F33.3 Assessments Encounter Date Diagnosis (ICD Code) Assessment Notes Treatment Notes Treatment Clinical Notes Section Notes 06/24/2025 Testicular hypofunction (ICD-10 - E29.1) 06/24/2025 Adult failure to thrive (ICD-10 - R62.7) 06/24/2025 Morbid (severe) obesity due to excess calories (ICD-10 - E66.01) 06/24/2025 Major depressive disorder, recurrent, severe with psychotic symptoms (ICD-10 - F33.3) 06/24/2025 Other Diagnostic labs drawn as ordered per protocol using aseptic technique. We will attempt to reach you by telephone to discuss the test results. If we cannot reach you by telephone, we will mail you your results to the address we have on file. In all cases, results will be reviewed at your next office visit. We will contact you sooner if you have a telephone or address where we can reach you for abnormal test results requiring immediate action. Plan Of Treatment Treatment Notes Assessment Notes Other Diagnostic labs draw n as ordered per protocol using aseptic technique. We will attempt to reach you by telephone to discuss the test results. If we cannot reach you by telephone, we will mail you your results to the address we have on file. In all cases, results will be reviewed at your next office visit. We will contact you sooner if you have a telephone or address where we can reach you for abnormal test results requiring immediate action. Pending Test Test Name Order Date FOLLICLE STIMULATING HORMONE 06/24/2025 LUTEINIZING HORMONE 06/24/2025 PROLACTIN 06/24/2025 PROSTATIC SPECIFIC ANTIGEN 06/24/2025 TESTOSTERONE 06/24/2025 MAGNESIUM 06/24/2025 VITAMIN D 25 HYDROXY 06/24/2025 CBC 06/24/2025 COMPREHENSIVE METABOLIC PANEL 06/24/2025 GLYCOHEMOGLOBIN PROFILE 06/24/2025 LITHIUM LEVEL 06/24/2025 PHOSPHORUS 06/24/2025 THYROID PROFILE 06/24/2025 VITAMIN B6 06/24/2025 VITAMIN B1 06/24/2025 Next Appt Details Follow Up: prn, Reason: Provider Name:Humaira vail, 07/06/2025 03:30:00 PM, [address] [facility], [place], [address], Progress Notes * Kamar ROMERODOB: [birth year] (49 yo M)Acc No.[id number]:06/24/2025 Progress Notes Patient: Kamar DE LA ROSA Provider: Ciaran nixon [facility] :1975 A ge:49 Y S ex:Male Date:06/24/2025 Address:[facility] [address] ( currently in [facility] Pcp:Humaira Delgado Subjective: * Chief Complaints: * 1 . [place]. * HPI: G eneral: pt presenting for lab draw denies medical complaints at time of visit. * ROS: G ENERAL: Constitutional d enies, f angelita, chills, Pt is able to walk 1 flight of stairs without stopping. R espiratory d enies, s hortness of breath, wheezing. C ardiovascular d enies, c hest pain/pressure, syncope. p t alert and oriented times three, depressed affect plesant and cooperative with care. * Surgical History: G astric Sleeve at [facility] 08/2023. * Hospitalization/Major Diagno stic Procedure: [facility], [facility] Adm: [facility], [facility], Kamlesh Schaefer, [facility], [place] ([place]) 2019, [facility] [place] - Bipolar 03/2021. * Family History: M other: . F ather: alive. * Social History: H ousing/living arrangements: 01/2025 [facility] SRO03/2024 [facility] SR [facility] SR[facility]05/03 [facility] SR[facility]03/2021 staying at [id number]/2020: SI from [facility], prior to that [facility]. Lost apartment after lost job.. [facility] Screening E ntered Date 0 01/15/2025, H ow is this screening being conducted today? I n-person, W hat is your housing situation today? I have housing, T hink about the place you live. Do you have problems with any of the following? (Check all that apply) N one of the above,?Within the past 12 months, you worried that your food would run out before you got money to buy more N ever true, W ithin the past 12 months, the food you bought just didn't last and you didn't have enough money to get more N ever true, I n the past 12 months, has lack of transportation kept you from medical appointments, meetings, work or from getting things needed for daily living? (Check all that apply) Y es, it has kept me from medical appointments or getting medications, I n the past 12 months has the electric, gas, oil, or water company threatened to shut off services in your home? N o, T hink about the place you live. Do you have access to internet/wi-fi when you need it? Y es, D o you want help finding or keeping work or a job? I do not need or want help. T obacco Use Assessment MU A nnual Tobacco assessment completed 01/15/2025 nonsmoker, T obacco assessment completed 0 01/15/2025, W hat age did you start smoking? 1 6, W hat is your current smoking status? f ormer smoker, H ow long has it been since you last smoked? > 10 years, W hat age did you quit smoking? 2 2. Drug use D ate of history: 0 01/15/2025 , Denies, A ge of very first drug use 1 6,?Drug used C annabis (Marijuana), L ast use or first drug 0 -2011, O ther drug use O ral opiates,Inhaled Cocaine. O piate Use Hx E keeley taken opiates Y es 01/2025 denies current use, A ge at First opiate use 2 8, W hat did you use first? O piate pills from the street, E keeley used IV? N o, D id you develop a habit with opiates? Y es,?Are you currently active in your addiction? N o, W hat opiates do you use? p ills: orally, E ngaged in medicated assisted recovery? 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 A lcohol Use: 01/2025 denies03/2024 Denies10/2022 Xiwipd8607/20/2020:last use 22 years ago. Sexual Orientation H eterosexual 0 01/15/2025. 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 M ental Health: 01/2025 no changes03/2024: RAFIQ Chawla staff10/2022 Wellness group at [facility]03/2021 not engaged, wants to with [facility]. DONNA faxed to Olinda Lawrence [facility] to facilitate entrance to [facility].07/2020: [facility] therapist Solomon Garrison and prescriber appt 08/11/2020 (this appt was cx'd) [facility] will call with another appt, pt has no phone will call Michael Epps [phone] also has Karime West BUILDING MAINTENANCE SUPERINTENDENT as secondary contact.. School L ast grade completed 1 2. 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 Income: 03/2021 No income. Legal issues/Incarcerations: 03/2021 denies. PCP/last visit: 03/2021 PCP Tiesha Mayo07/2020: Ghanshyam [facility].. Transportation: 03/2021 walks. Family relationships/conflicts: father and step mother sees infrequently. Children: none. 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 * Medications: T aking Ativan 2 MG Tablet Twice daily Orally twice a day , Taking [place] Carbonate 300 MG Capsule 1 capsule BID Orally twice a day , Taking Atorvastatin Calcium 20 MG Tablet 1 tab(s) orally once a day , Notes to Pharmacist: pls deliver, Taking Aspirin EC 81 MG DELAYED RELEASE TABLET 1 TAB(S) ORALLY ONCE A DAY , Notes to Pharmacist: pls deliver *Please review and pick correct strength-formulation from Medispan options. If intended option is not shown, discontinue and re-order from Quick Search*, Not-Taking/PRN Desvenlafaxine Succinate ER ( SUCCINATE) 100 MG TABLET, EXTENDED RELEASE 1 TAB(S) ORALLY ONCE A DAY , Notes to Pharmacist: *Please review and pick correct strength-formulation from Netbiscuits options. If intended option is not shown, discontinue and re-order from Quick Search*, Not-Taking/PRN Cyanocobalamin 1000 MCG/ML Solution as directed intramuscularly once a month , Not-Taking/PRN Vitamin D3 10 MCG TABLET 1 TAB(S) ORALLY ONCE A DAY , Notes to Pharmacist: *Please review and pick correct strength-formulation from Netbiscuits options. If intended option is not shown, discontinue and re-order from Quick Search*, Not-Taking/PRN Cyanocobalamin 100 MCG Tablet 1/2 tab orally once a day , Not-Taking/PRN Latuda 60 MG Tablet 2 tabs orally once a day , Not-Taking/PRN lamoTRIgine 100 MG Tablet 1 tab(s) orally daily , Not-Taking/PRN hydrOXYzine Pamoate 50 MG Capsule 2 cap(s) [...] *Please review and pick correct strength-formulation from Netbiscuits options. If intended option is not shown, discontinue and re-order from Quick Search*, Not-Taking/PRN Pantoprazole Sodium 40 MG Tablet Delayed Release 1 tab(s) orally once a day , Not-Taking/PRN Voltaren 1 % Gel 1 drop(s) applied topically 4 times a day as needed for left leg pain , Medication List reviewed and reconciled with the patient Objective: * Vitals: B P: 115/75, Ht: 69, HR: 73, Oxygen sat %: 100, Temp: 97.2. Assessment: * Assessment: 1. T esticular hypofunction - E29.1 2 . A dult failure to thrive - R62.7? 3. M orbid (severe) obesity due to excess calories - E66.01 4 .?Major depressive disorder, recurrent, severe with psychotic symptoms - F33.3 Plan: * Treatment: 2. A dult failure to thrive L AB: CBC (Collection Date & Time - 06/24/2025 09:17 AM) L AB: COMPREHENSIVE METABOLIC PANEL (Collection Date & Time - 06/24/2025 09:17 AM) L AB: MAGNESIUM (Collection Date & Time - 06/24/2025 09:17 AM) L AB: PHOSPHORUS (Collection Date & Time - 06/24/2025 09:17 AM) L AB: VITAMIN D 25 HYDROXY (Collection Date & Time - 06/24/2025 09:17 AM) L AB: VITAMIN B6 (Collection Date & Time - 06/24/2025 09:17 AM) L AB: VITAMIN B1 (Collection Date & Time - 06/24/2025 09:17 AM) 3. M orbid (severe) obesity due to excess calories L AB: THYROID PROFILE (Collection Date & Time - 06/24/2025 09:17 AM) 4. M ajor depressive disorder, recurrent, severe with psychotic symptoms L AB: LITHIUM LEVEL (Collection Date & Time - 06/24/2025 09:17 AM) 5. O thers Notes: Diagnostic labs drawn as ordered per protocol using aseptic technique. We will attempt to reach you by telephone to discuss the test results. If we cannot reach you by telephone, we will mail you your results to the address we have on file. In all cases, results will be reviewed at your next office visit. We will contact you sooner if you have a telephone or address where we can reach you for abnormal test results requiring immediate action. * Procedure Codes: 3 6415 VENIPUNCT, ROUTINE*, 95316 SPECIMEN HANDLING * Follow Up: p magda * Images: Billing Information: * Visit Code: * Procedure Codes: 55604 VENIPUNCT, ROUTINE*. 68563 SPECIMEN HANDLING. * Sign off status: Completed true * Provider: Ciaran nixon [facility] Date: 08/24/2024 Generated for Jessica khalil/Miguel/Juan on: 08/25/2024 10:31 PM EST
--- OUTSIDE RECORDS SUMMARY | 2025-06-24 13:54 | XMS_ITS ---
Author Organization [facility] Address [address] [place] [address] Care Team Providers Care Automotive Starter Repairer Name Role Phone Humaira Delgado Primary Care Provider REASON FOR VISIT labs to psyche Encounters Encounter Location Date Provider Diagnosis [id number] [place] [address] 06/24/2025 Humaira Delgado Plan Of Treatment Next Appt Details Provider Name:Humaira vail, 07/06/2025 03:30:00 PM, [address] [facility], [place], [address], Progress Notes * Kamar ROMERODOB: [birth year] (49 yo M)Acc No.[id number]:06/24/2025 Patient: Kamar DE LA ROSA :1975 A ge:49 Y S ex:Male Address:[address] [facility] [address] ( currently in [facility] [place] [address] * true * Date: Generated for Galileoi simran/Facorwing/eTransmitting on: 08/25/2024 10:31 PM EST
--- NOTE | 2025-06-25 14:11 | ED_ITS ---
HPI - Psych General Chief Complaint: Psychiatric Symptoms Stated Complaint: crisis Time Seen by Provider: 06/25/25 14:38 Source: patient Mode of arrival: ambulatory Limitations: no limitations History of Present Illness ED Provider: JEFFREY Heath HPI Narrative: Chief Complaint: ?I?m afraid I?m going to kill myself.? History of Present Illness: ? The patient reports longstanding suicidal ideation ?for years,? which worsened during a recent partial-hospitalization program. ? She was transferred directly from partial hospitalization to the ED. ? She endorses a specific plan to jump off the [facility]. ? Past suicide attempt on 01/21/2009 by ingesting ?most of a bottle of Drano,? requiring hospital admission. ? Denies auditory or visual hallucinations. ? Denies homicidal ideation. ? Denies chest pain, shortness of breath, fevers, or chills. ? Denies current alcohol or drug use. Related Data Home Medications ?Medication ?Instructions ?Recorded ?Confirmed lithium carbonate 300 mg tablet 300 mg PO BID 06/25/25 06/25/25 lorazepam 2 mg tablet 2 mg PO BID 06/25/25 5 Previous Rx's ?Medication ?Instructions ?Recorded aspirin 81 mg tablet,delayed 81 mg PO DAILY 30 days #3 0 tabs 05/25/25 release atorvastatin 20 mg tablet 20 mg PO BEDTIME 30 days #30 tabs 05/25/25 bupropion HCl 100 mg tablet 100 mg PO BID@0900,1700 30 days 05/25/25 #60 tabs Allergies Allergy/AdvReac Type Severity Reaction Status Date / Time pumpkin Allergy Unknown Unknown Verified 06/25/25 14:15 Review of Systems 2 Review of Systems: ? Constitutional: No fevers, chills reported. ? Cardiovascular/Respiratory: Denies chest pain or shortness of breath. ? Psychiatric: Positive for suicidal ideation with plan; negative for hallucinations; negative for homicidal ideation. ? All other systems not specifically reviewed were not discussed. Family History: Not discussed. Yes all other systems are reviewed and are negative PMFSH Past Medical History Attestation statement: The following information was validated with the patient. Source: old records reviewed and nursing notes reviewed Medical History (Updated 06/29/25 @ 16:27 by Lucía Casas DNP) Bipolar I disorder with depression, severe Bipolar disorder Obesity LUIS (obstructive sleep apnea) HLD (hyperlipidemia) HTN (hypertension) CVA (cerebral vascular accident) Surgical History (Updated 06/25/25 @ 09:37 by Gabrielle Forrest RN) H/O bariatric surgery Social History Social History Household Members: None Household Members Other:: Currently residing in a homeless senior living Housing: Other Do you presently have visiting nurse or other home services: Yes Patient Tobacco Use Status: Former Tobacco user Tobacco use type: Cigarette Smoked in Last 30 Days: No e-Cigarette/Vaping Use: Never Used Patient Interested in Nicotine Replacement: No Second Hand Smoke Exposure: No Currently Displaying Signs/Symptoms of Drug Intoxication Withdrawal: No Have you been hit, kicked, punched, or otherwise hurt by someone within the past year? If so, by whom?: No Do you feel safe in your current relationship?: No Current Relationship Is there a partner from a previous relationship who is making you feel unsafe now?: No Are you made to feel afraid or neglected: No Advance Directives: No Advance Directives Information Provided: Yes Do you have thoughts of harming others: None Do you have a plan to hurt others: No Plan Recently lost weight without trying: No How much weight loss: Not applicable Eating poorly because of decreased appetite: No Nutrition screen score: 0 Nutrition Risks: No Nutritional Risk Poor oral hygiene: No service: No Sexual orientation: Straight/Heterosexual Physical Exam 2 Vital Signs: Vital Signs: Last Vital Signs Temp 97.5 F 07/03/25 07:43 Pulse 63 07/03/25 07:43 Resp 14 07/03/25 07:43 BP 106/52 L 07/03/25 07:43 Pulse Ox 96 07/03/25 07:43 O2 Del Method Room Air 07/03/25 07:43 BMI result Body Mass Index 36.0 Course Course Course Narrative: This is a rapid medical exam performed by Berenice Srivastava NP: Additional HPI, ROS, PE not included below will be deferred to primary provider. Patient is a 49y/o M with history of depression, CKD presenting from first day of partial program with thoughts of suicidal ideation. Denies plan. States he does not feel safe at home. Denies HI/AH/VH. Denies current physical complaints. Plan: med clearance then CARE team eval Reevaluation(s) Reevaluation #1: CBC unremarkable. Chemistry with no acute findings needing intervention. UA without infection. Urine toxicology negative. Ethanol negative. Time: 16:53 Reevaluation #2: At this time patient to be placed into observation to allow more time to be evaluated by care team. At time observation started [facility] no acute distress Reevaluation #3: Time: 05:50 Date: 06/26/25 Provider: Jayesh Cobos MD Patient in physician observation for psychiatric evaluation.? No acute events reported overnight. No current complaints. VS stable.? Patient is in bed search status/pending CARE team evaluation. Will continue to monitor. Additional Reevaluation(s): Time: 10:48 Date: 06/27/25 Provider: Buck Hernandez DO Patient in physician observation for psychiatric evaluation.? No acute events reported overnight. No current complaints. VS stable.? Patient is in bed search status. Medications Administered Generic Name Dose Route Start Last Admin Trade Name Freq PRN Reason Stop Dose Admin Aspirin 81 mg 06/26/25 09:00 07/03/25 08:54 Aspirin Enteric Coated 81 Mg Tablet.Dr PO 81 mg DAILY JENNIFER Administration Atorvastatin Calcium 20 mg 06/25/25 21:00 07/02/25 20:29 Atorvastatin Calcium 20 Mg Tablet PO 20 mg BEDTIME JENNIFER Administration Bupropion HCl 100 mg 07/03/25 09:00 07/03/25 08:54 Bupropion Hcl 100 Mg Tablet PO 100 mg BID JENNIFER Administration Zeigler Carbonate 300 mg 07/02/25 21:00 07/03/25 08:54 Zeigler Carbonate 300 Mg Capsule PO 300 mg TID JENNIFER Administration Lorazepam 2 mg 06/25/25 21:00 07/03/25 08:54 Lorazepam 1 Mg Tablet PO 2 mg BID JENNIFER Administration Trazodone HCl 50 mg 06/28/25 12:26 07/02/25 21:27 Trazodone Hcl 50 Mg Tablet PO 50 mg BEDTIME [id number] PRN Administration Insomnia Discontinued Medications Generic Name Dose Route Start Last Admin Trade Name Freq PRN Reason Stop Dose Admin Bupropion HCl 100 mg 06/25/25 17:00 07/02/25 17:29 Bupropion Hcl 100 Mg Tablet PO 100 mg BID@0900,1700 JENNIFER Administration Influenza Virus Vaccine 0.5 ml 06/28/25 15:50 06/28/25 16:47 Flu Vacc [id number](6mo Up)/Pf 0.5 Ml Syringe IM 06/28/25 15:51 0.5 ml .ONCE ONE Administration Zeigler Carbonate 300 mg 06/25/25 21:00 06/29/25 08:37 Zeigler Carbonate 300 Mg Capsule PO 300 mg BID JENNIFER Administration Zeigler Carbonate 600 mg 06/29/25 21:00 06/29/25 21:49 Zeigler Carbonate Er 300 Mg Tablet.Er PO 06/29/25 23:59 600 mg BEDTIME JENNIFER Administration Zeigler Carbonate 900 mg 06/30/25 21:00 07/01/25 20:20 Zeigler Carbonate Er 450 Mg Tablet.Er PO 900 mg BEDTIME JENNIFER Administration Medical Decision Making Medical Decision Making [facility] Narrative: Assessment & Plan 76-year-old female presenting today with active suicidal ideation and specific plan, requiring medical clearance for psychiatric evaluation. Problem #1: Suicidal ideation with specific plan Assessment: Longstanding SI, currently active with plan to jump off [employer]; prior serious attempt (Drano ingestion in 2008). Denies hallucinations or substance use. No acute medical complaints. Plan: * Completed medical screening; preliminary labs reviewed and ?look okay.? * Patient to remain in ED under observation; psychiatry care team to evaluate and determine disposition. Differential Diagnosis Differential Diagnoses: The differential diagnosis associated with the presentation includes Differential Diagnosis * Major depressive disorder (most likely, given longstanding and worsening suicidal ideation, prior attempt, and current plan) * Persistent depressive disorder (dysthymia) (chronic symptoms) * Adjustment disorder with depressed mood (recent worsening during partial hospitalization) * Generalized anxiety disorder with secondary depression (history of anxiety and depression) * Depressive disorder secondary to medical illness (multiple chronic comorbidities) * Substance-/medication-induced depressive disorder (polypharmacy, though no current substance use reported) Important to rule out: * Bipolar disorder, current depressive episode (ask about past manic/hypomanic episodes) * Major depressive disorder with psychotic features (screen for delusions/psychosis) * Delirium from acute medical/metabolic condition (less likely, but consider in elderly) Admission/Observation Consideration of admission/observation: Escalation of care including admission/observation considered Lab Data [facility] Lab Attestation statement: I reviewed the patient's lab results. 06/25/25 14:36 06/25/25 14:36 Labs: Lab Results 06/25/25 Range/Units 14:36 WBC 9.0 (4.8-10.8) X10*3/uL RBC 5.46 (4.60-5.80) X10*6/uL Hgb 15.8 (14.0-18.0) g/dl Hct 48.5 (42.0-52.0) % MCV 88.8 (80.0-98.0) fL MCH 28.9 (27.0-33.0) pg MCHC 32.6 (31.0-36.0) g/dl RDW 13.7 (11.0-16.0) % Plt Count 213 (160-400) X10*3/uL MPV 10.5 (9.4-12.4) fL Immature Gran % (Auto) 0.2 (0.0-0.4) % Neut % (Auto) 69.5 (45-73) % Lymph % (Auto) 21.5 (20-40) % [place] % (Auto) 6.5 (2-11) % Eos % (Auto) 2.0 (0-4) % Baso % (Auto) 0.3 (0-2) % Lymph # (Auto) 1.9 (1.2-4.9) X10*3/uL [place] # (Auto) 0.6 (0.1-1.2) X10*3/uL Eos # (Auto) 0.2 (0.0-0.4) X10*3/uL Baso # (Auto) 0.0 (0.0-0.2) X10*3/uL Abs Immat Gran (auto) 0.02 (0.00-0.03) X10*3/uL Absolute Neuts (auto) 6.2 (2.0-8.3) x10*3/uL Absolute Nucleated RBC 0.000 (0.0-0.012) X10*3/uL Nucleated RBC % (auto) 0.0 (0.0-0.2) /100WBC Sodium 141 (135-145) mmol/L Potassium 4.2 (3.3-5.1) mmol/L Chloride 107 (96-108) mmol/L Carbon Dioxide 26 (22-29) mmol/L Anion Gap 12 (12-20) BUN 11 (9-16) mg/dL Creatinine 1.30 (0.5-1.4) mg/dL Estim Creat Clear Calc 84.2 Estimated GFR 59 Random Glucose 89 (60-115) mg/dL Calcium 9.3 (8.4-10.2) mg/dL Total Bilirubin 0.8 (0.0-1.0) mg/dL AST 16 (5-37) U/L ALT 50 H (0-40) U/L Alkaline Phosphatase 69 (39-117) U/L Total Protein 6.8 (6.5-8.0) g/dL Albumin 4.2 (3.5-5.0) g/dL Urine Color Yellow Urine Appearance Clear Urine pH 6.5 (5.0-9.0) Ur Specific [place] 1.020 (1.005-1.025) Urine Protein Negative (Neg-Trace) mg/dL Urine Glucose (UA) Negative (Negative) mg/dL Urine Ketones Negative (Negative) mg/dL Urine Blood Negative (Negative) Urine Nitrite Negative (Negative) Ur Leukocyte Esterase Negative (Negative) Urine Opiates Screen Not Detected (Not Detect) Ur Buprenorphine Scrn Not Detected (Not Detect) ng/mL Ur Oxycodone Screen Not Detected (Not Detect) ng/mL Urine Methadone Screen Not Detected (Not Detect) ng/mL Urine Fentanyl Screen Not Detected (Not Detect) Ur Barbiturates Screen Not Detected (Not Detect) Ur Phencyclidine Scrn Not Detected (Not Detect) Ur Amphetamines Screen Not Detected (Not Detect) U Benzodiazepines Scrn Not Detected (Not Detect) Urine Cocaine Screen Not Detected (Not Detect) U Marijuana (THC) Screen Not Detected (Not Detect) Ethyl Alcohol < 10 mg/dL Influenza Type A (PCR) NEGATIVE (Negative) Influenza Type B (PCR) NEGATIVE (Negative) RSV RNA Qual (PCR) NEGATIVE (Negative) SARS-CoV-2 RNA (RT-PCR) NEGATIVE (Negative) External Record Review External record reviewed: Inpatient record, Office record, Outpatient record, Prior outpatient labs, Prior outpatient radiology, Primary care record and Outside ED record Chronic Conditions Patient?s care impacted by: Other (see hpi) Social Determinants Patient?s care significantly limited by Social Determinants of Health including: Other Social Determinant of Health Discharge Plan Discharge Clinical Impression: Suicidal ideation Depression Qualifiers: Depression Type: unspecified Qualified Code(s): F32.A - Depression, unspecified Patient Disposition: Admitted As Inpatient Interventions: Admission Worksheet (ED) Last Done: 06/28/25 13:09 Discharge Date/Time: 06/28/25 13:58
[2025-06-25 14:12] VITALS: BP 137/78; PULSE 76; RESP 18; TEMP 36.6; O2SAT 99; BMI 36.0
[2025-06-25 14:45] LABS: MANUAL DIFF FLAG NO
[2025-06-25 14:47] LABS: Hematocrit 48.5 % (42.0-52.0); Hemoglobin 15.8 g/dl (14.0-18.0); Imm Gran Abs Auto 0.02 X10*3/uL (0.00-0.03); Imm Gran Pct Auto 0.2 % (0.0-0.4); Lymphocytes Absolute Auto 1.9 X10*3/uL (1.2-4.9); Mean Corpuscular HGB Conc 32.6 g/dl (31.0-36.0); Mean Corpuscular Hemoglobin 28.9 pg (27.0-33.0); Mean Corpuscular Volume 88.8 fL (80.0-98.0); NRBC Abs Auto 0.000 X10*3/uL (0.0-0.012); NRBC Pct Auto 0.0 /100WBC (0.0-0.2); Platelet Count 213 X10*3/uL (160-400); Red Blood Count 5.46 X10*6/uL (4.60-5.80); White Blood Count 9.0 X10*3/uL (4.8-10.8)
[2025-06-25 14:50] LABS: Appearance Urine Clear; Glucose Urine UA Negative (Negative); PH 6.5 (5.0-9.0); Specific Gravity - Urine 1.020 (1.005-1.025)
[2025-06-25 15:03] LABS: Alanine Aminotransferase 50 U/L (0-40); Albumin Level 4.2 g/dL (3.5-5.0); Alkaline Phosphatase 69 U/L (39-117); Anion Gap 12 (12-20); Aspartate Amino Transferase 16 U/L (5-37); Blood Urea Nitrogen 11 mg/dL (9-16); Calcium 9.3 mg/dL (8.4-10.2); Carbon Dioxide 26 mmol/L (22-29); Chloride 107 mmol/L (96-108); Creatinine Clr Calc Pharmacy 84.2; Estimated Glomerular Filt Rate 59; Potassium 4.2 mmol/L (3.3-5.1); Sodium 141 mmol/L (135-145); Total Protein 6.8 g/dL (6.5-8.0)
[2025-06-25 15:23] LABS: Resp Syncy Virus RNA Qual PCR NEGATIVE (Negative); SARS COV2 PCR INHOUSE NEGATIVE (Negative)
[2025-06-25 16:39] LABS: Cannabinoid Screen Urine Not Detected (Not Detect)
--- OUTSIDE RECORDS SUMMARY | 2025-06-25 22:30 | XMS_ITS | Encounter Summary ---
Author Organization [facility] Address [address] [place] [address] Care Team Providers Care High Heel Builder Name Role Phone Tiesha Mayo NP Primary Care Provider Encounter Details Date Type Department Care Team (Late st Contact Info) Description 07/15/2024 Lab Requisition [facility] - Main Lab [address] [facility] [place] [address] Humaira Delgado NP [address] [place] [address] Adult failure to thrive; Anxiety disorder, unspecified; Hyperlipidemia, unspecified; Type 2 diabetes mellitus with hyperglycemia (CMS/HCC V24, CMS/HCC V28) Social History Tobacco Use Types Packs/Day Years Used Date Smoking Tobacco: Former Smokeless Tobacco: Never Alcohol Use Standard Drinks/Week Comments Not Currently 0 (1 standard drink = 0.6 oz pur e alcohol) Sex and Gender Information Value Date Recorded Sex Assigned at Not on file Legal Sex Male 8:34 PM EST Gender Identity Not on file Sexual Orientation Not on file documented as of this encounter Plan of Treatment Not on file documented as of this encounter Procedures Procedure Name Priority Date/Time Associated Diagnosis Comments THYROID STIMULATING HORMONE WITH REFLEX TO FREE T4 AND FREE T3 Routine 07/15/2024 10:59 AM EST Adult failure to thrive Anxiety disorder, unspecified Hyperlipidemia, unspecified Type 2 diabetes mellitus with hyperglycemia (CMS/HCC) VITAMIN B12 AND FOLATE Routine 07/15/2024 10:59 AM EST Adult failure to thrive Anxiety disorder, unspecified Hyperlipidemia, unspecified Type 2 diabetes mellitus with hyperglycemia (CMS/HCC) SST - GOLD Routine 07/15/2024 10:59 AM EST Adult failure to thrive Anxiety disorder, unspecified Hyperlipidemia, unspecified Type 2 diabetes mellitus with hyperglycemia (CMS/HCC) LIPID PANEL WITH REFLEX TO DIRECT LDL Routine 07/15/2024 10:59 AM EST Adult failure to thrive Anxiety disorder, unspecified Hyperlipidemia, unspecified Type 2 diabetes mellitus with hyperglycemia (CMS/HCC) VITAMIN D 25 HYDROXY Routine 07/15/2024 10:59 AM EST Adult failure to thrive Anxiety disorder, unspecified Hyperlipidemia, unspecified Type 2 diabetes mellitus with hyperglycemia (CMS/HCC) COMPLETE BLOOD COUNT Routine 07/15/2024 10:59 AM EST Adult failure to thrive Anxiety disorder, unspecified Hyperlipidemia, unspecified Type 2 diabetes mellitus with hyperglycemia (CMS/HCC) VITAMIN B1 Routine 07/15/2024 10:59 AM EST Adult failure to thrive Anxiety disorder, unspecified Hyperlipidemia, unspecified Type 2 diabetes mellitus with hyperglycemia (CMS/HCC) VITAMIN B6 Routine 07/15/2024 10:59 AM EST Adult failure to thrive Anxiety disorder, unspecified Hyperlipidemia, unspecified Type 2 diabetes mellitus with hyperglycemia (CMS/HCC) PHOSPHORUS Routine 07/15/2024 10:59 AM EST Adult failure to thrive Anxiety disorder, unspecified Hyperlipidemia, unspecified Type 2 diabetes mellitus with hyperglycemia (CMS/HCC) MAGNESIUM Routine 07/15/2024 10:59 AM EST Adult failure to thrive Anxiety disorder, unspecified Hyperlipidemia, unspecified Type 2 diabetes mellitus with hyperglycemia (CMS/HCC) HEMOGLOBIN A1C Routine 07/15/2024 10:59 AM EST Adult failure to thrive Anxiety disorder, unspecified Hyperlipidemia, unspecified Type 2 diabetes mellitus with hyperglycemia (CMS/HCC) COMPREHENSIVE METABOLIC PANEL Routine 07/15/2024 10:59 AM EST Adult failure to thrive Anxiety disorder, unspecified Hyperlipidemia, unspecified Type 2 diabetes mellitus with hyperglycemia (CMS/HCC) documented in this encounter Results * SST tube (07/15/2024 10:59 AM EST) Pathologist [facility] Extra Tube Hold for add-ons. 07/15/2024 6:02 PM EST [facility] Comment:Auto resulted. Blood Venous blood specimen / Unknown 07/15/2024 10:59 AM EST 07/15/2024 4:49 PM EST [facility] MILK DRYING MACHINE OPERATOR LAB BLOOD ORDERABLES Final Result Performing Organization Address City/[facility]/ZIP Co de Phone Number [facility] [address] [place] [address], * Vitamin D 25 hydroxy (07/15/2024 10:59 AM EST) [facility] Vit D, 25-Hydroxy 51.7 30.0 - 80.0 ng/mL LAB CHEMISTRY METHOD 07/15/2024 5:15 PM EST [facility] Blood Venous blood specimen / Unknown 07/15/2024 10:59 AM EST 07/15/2024 4:48 PM EST [facility] MILK DRYING MACHINE OPERATOR LAB BLOOD ORDERABLES Final Result [facility] [address] [place] [address], [place] [phone] * (ABNORMAL) Vitamin B6 (07/15/2024 10:59 AM EST) [facility] Vitamin B6 (Pyridoxine) Level <2(L) 5 - 50 ug/L 07/22/2024 8:51 AM EST [facility] Comment: This test was developed and the performance characteristics determined by [facility]. It has not been cleared or approved by the FDA. The laboratory is regulated under CLIA as qualified to perform high-complexity testing. This test is used for patient testing purposes. It should not be regarded as investigational or for research. Test performed at [facility], [address] [place] [address] Josie Jj MD, PhD - Track Vehicle Repairer Blood Venous blood specimen / Unknown 07/15/2024 10:59 AM EST 07/15/2024 4:48 PM EST [facility] LAB BLOOD ORDERABLES Final Result Performing Organization Address City/[facility]/ZIP Co de Phone Number [facility] [address] [place] [address] * (ABNORMAL) Vitamin B1 (07/15/2024 10:59 AM EST) Pathologist [facility] Vitamin B1 Whole Blood 37(L) 38 - 122 ug/L 07/21/2024 7:50 AM EST [facility] Comment: This test was developed and the performance characteristics determined by [facility]. It has not been cleared or approved by the FDA. The laboratory is regulated under CLIA as qualified to perform high-complexity testing. This test is used for patient testing purposes. It should not be regarded as investigational or for research. Test performed at [facility], [address] [place] [address] Josie Jj MD, PhD - Track Vehicle Repairer Blood Venous blood specimen / Unknown 07/15/2024 10:59 AM EST 07/15/2024 4:48 PM EST GradFlychino Delgado MILK DRYING MACHINE OPERATOR LAB BLOOD ORDERABLES Final Result Performing Organization Address City/[facility]/ZIP Co de Phone Number [facility] [address] [place] [address] * Magnesium (07/15/2024 10:59 AM EST) Pathologist [facility] Magnesium 2.1 1.9 - 2.6 mg/dL LAB CHEMISTRY METHOD 07/15/2024 5:07 PM EST [facility] Blood Venous blood specimen / Unknown 07/15/2024 10:59 AM EST 07/15/2024 4:48 PM EST us Eddichino Delgado MILK DRYING MACHINE OPERATOR LAB BLOOD ORDERABLES Final Result Performing Organization Address City/[facility]/ZIP Co de Phone Number [facility] [address] [place] [address], [place] [phone] * Vitamin B12 and folate (07/15/2024 10:59 AM EST) Pathologist [facility] Vitamin B-12 467 250 - 900 pcg/mL LAB CHEMISTRY METHOD 07/15/2024 5:30 PM EST [facility] Folate 6.4 2.8 - 17.0 ng/ml LAB CHEMISTRY METHOD 07/15/2024 5:30 PM EST [facility] Blood Venous blood specimen / Unknown 07/15/2024 10:59 AM EST 07/15/2024 4:48 PM EST Humaira Delgado LAB BLOOD ORDERABLES Final Result Performing Organization Address [facility]/ZIP Co de Phone Number [facility] [address] [place] [address], [place] [phone] * Thyroid stimulating hormone with reflex to free t4 and free t3 (07/15/2024 10:59 AM EST) Pathologist [facility] TSH 2.73 0.40 - 4.00 mcIU/mL LAB CHEMISTRY METHOD 07/15/2024 5:15 PM EST [facility] Blood Venous blood specimen / Unknown 07/15/2024 10:59 AM EST 07/15/2024 4:48 PM EST Humaira Delgado MILK DRYING MACHINE OPERATOR LAB BLOOD ORDERABLES Final Result Performing Organization Address City/[facility]/ZIP Co de Phone Number [facility] [address] [place] [address], [place] [phone] * Phosphorus (07/15/2024 10:59 AM EST) Phosphorus 3.6 2.5 - 4.5 mg/dL LAB CHEMISTRY METHOD 07/15/2024 5:07 PM [facility] Blood Venous blood specimen / Unknown 07/15/2024 10:59 AM EST 07/15/2024 4:48 PM EST Humaira Delgado MILK DRYING MACHINE OPERATOR LAB BLOOD ORDERABLES Final Result [facility] [address] [place] [address], * (ABNORMAL) Lipid panel with reflex to direct LDL (07/15/2024 10:59 AM EST) Cholesterol 236(H) 0 - 200 mg/dL LAB CHEMISTRY METHOD 07/15/2024 5:30 PM [facility] Triglycerides 149 0 - 150 mg/dL LAB CHEMISTRY METHOD 07/15/2024 5:30 PM [facility] HDL 43 >=40 mg/dL LAB CHEMISTRY METHOD 07/15/2024 5:30 PM [facility] LDL Calculated 163(H) 0 - 100 mg/dL LAB CHEMISTRY METHOD 07/15/2024 5:30 PM [facility] VLDL Cholesterol [place] 29.8 mg/dL LAB CHEMISTRY METHOD 07/15/2024 5:30 PM [facility] Non HDL Chol. (LDL+VLDL) 193(H) <145 mg/dL LAB CHEMISTRY METHOD 07/15/2024 5:30 PM [facility] Chol/HDL Ratio 5.5(H) 0.0 - 4.4 LAB CHEMISTRY METHOD 07/15/2024 5:30 PM [facility] Blood Venous blood specimen / Unknown 07/15/2024 10:59 AM EST 07/15/2024 4:48 PM EST us Eddieliza Casionan MILK DRYING MACHINE OPERATOR LAB BLOOD ORDERABLES Final Result Performing Organization Address City/[facility]/ZIP Co de Phone Number [facility] [address] [place] [address], [place] [phone] * Hemoglobin A1c (07/15/2024 10:59 AM EST) Pathologist [facility] Hemoglobin A1C 4.4 <6.5 % LAB CHEMISTRY METHOD 07/15/2024 9:30 PM EST [facility] Mean Bld Glu Estim. 80 mg/dL LAB CHEMISTRY METHOD 07/15/2024 9:30 PM [facility] Blood Venous blood specimen / Unknown 07/15/2024 10:59 AM EST 07/15/2024 4:48 PM EST us Eddichino Delgado MILK DRYING MACHINE OPERATOR LAB BLOOD ORDERABLES Final Result Performing Organization Address [facility] Co de Phone Number [facility] [address] [place] [address], [place] [phone] * (ABNORMAL) Comprehensive metabolic panel (07/15/2024 10:59 AM EST) [facility] Sodium 141 133 - 145 mmol/L LAB CHEMISTRY METHOD 07/15/2024 5:30 PM [facility] Potassium 4.1 3.5 - 5.5 mmol/L LAB CHEMISTRY METHOD 07/15/2024 5:30 PM [facility] Chloride 105 96 - 110 mmol/L LAB CHEMISTRY METHOD 07/15/2024 5:30 PM [facility] CO2 27 21 - 32 mmol/L LAB CHEMISTRY METHOD 07/15/2024 5:30 PM [facility] Anion Gap 9 3 - 11 LAB CHEMISTRY METHOD 07/15/2024 5:30 PM [facility] Glucose 83 70 - 100 mg/dL LAB CHEMISTRY METHOD 07/15/2024 5:30 PM [facility] BUN 10 5 - 25 mg/dL LAB CHEMISTRY METHOD 07/15/2024 5:30 PM [facility] Creatinine 0.94 0.70 - 1.30 mg/dL LAB CHEMISTRY METHOD 07/15/2024 5:30 PM [facility] eGFR 100 >=60 mL/min/1. 73m2 LAB CHEMISTRY METHOD 07/15/2024 5:30 PM [facility] Comment:Calculation based on the Chronic Kidney Disease Epidemiology Collaboration (CKD-EPI) equation refit without adjustment for race. BUN/Creatinine Ratio 10.6 LAB CHEMISTRY METHOD 07/15/2024 5:30 PM [facility] Calcium 9.8 8.5 - 10.5 mg/dL LAB CHEMISTRY METHOD 07/15/2024 5:30 PM [facility] AST (SGOT) 11 10 - 42 unit/L LAB CHEMISTRY METHOD 07/15/2024 5:30 PM [facility] ALT (SGPT) 16 10 - 60 unit/L LAB CHEMISTRY METHOD 07/15/2024 5:30 PM [facility] Alkaline Phosphatase 81 42 - 121 unit/L LAB CHEMISTRY METHOD 07/15/2024 5:30 PM [facility] Total Protein 6.5 6.0 - 8.0 g/dL LAB CHEMISTRY METHOD 07/15/2024 5:30 PM [facility] Albumin 3.5 3.2 - 5.0 g/dL LAB CHEMISTRY METHOD 07/15/2024 5:30 PM [facility] Total Bilirubin 1.5(H) 0.0 - 1.4 mg/dL LAB CHEMISTRY METHOD 07/15/2024 5:30 PM [facility] Blood Venous blood specimen / Unknown 07/15/2024 10:59 AM EST 07/15/2024 4:48 PM EST us Claduinemaia Danny CHAVEZ LAB BLOOD ORDERABLES Final Result [facility] [address] [place] [address], * (ABNORMAL) Complete blood count (07/15/2024 10:59 AM EST) WBC 8.7 4.8 - 10.8 K/mcL LAB HEMETOLOGY METHOD 07/15/2024 4:58 PM [facility] RBC 5.90(H) 4.50 - 5.50 M/mcL LAB HEMETOLOGY METHOD 07/15/2024 4:58 PM [facility] Hemoglobin 16.4 13.5 - 17.5 g/dL LAB HEMETOLOGY METHOD 07/15/2024 4:58 PM [facility] Hematocrit 50.7 42.0 - 54.0 % LAB HEMETOLOGY METHOD 07/15/2024 4:58 PM [facility] MCV 86.1 79.0 - 98.0 FL LAB HEMETOLOGY METHOD 07/15/2024 4:58 PM [facility] MCH 27.8 27.0 - 32.0 pcg LAB HEMETOLOGY METHOD 07/15/2024 4:58 PM [facility] MCHC 32.3 32.0 - 37.0 g/dL LAB HEMETOLOGY METHOD 07/15/2024 4:58 PM [facility] RDW 14.2 11.0 - 15.0 % LAB HEMETOLOGY METHOD 07/15/2024 4:58 PM [facility] Platelets 220 130 - 400 K/mcL LAB HEMETOLOGY METHOD 07/15/2024 4:58 PM [facility] MPV 12.3(H) 7.0 - 11.0 FL LAB HEMETOLOGY METHOD 07/15/2024 4:58 PM EST [facility] NRBC 0.0 <1.0 % LAB HEMETOLOGY METHOD 07/15/2024 4:58 PM EST [facility] NRBC Absolute 0.00 <0.10 K/mcL LAB HEMETOLOGY METHOD 07/15/2024 4:58 PM EST [facility] Blood Venous blood specimen / Unknown 07/15/2024 10:59 AM EST 07/15/2024 4:48 PM EST us Humaira Delgado MILK DRYING MACHINE OPERATOR LAB BLOOD ORDERABLES Final Result [facility] [address] [place] [address], documented in this encounter Visit Diagnoses Diagnosis Adult failure to thrive Anxiety disorder, unspecified Hyperlipidemia, unspecified Type 2 diabetes mellitus with hyperglycemia (CMS/HCC V24, CMS/HCC V28) documented in this encounter Care Teams High Heel Builder Relationship Specialty Start Date End Date Tiesha Mayo NP [address] [place], [place] PCP - General Internal Medicine 05/17/22 documented as of this encounter
--- OUTSIDE RECORDS SUMMARY | 2025-06-25 22:30 | XMS_ITS | Clinical Summary ---
Author Organization [facility] Address [address] [place] [address] Care Team Providers Care Vapor Coater Name Role Phone Unavailable Primary Care Provider Unavailabl e Allergies No known active allergies Medications Medication Sig Dispensed Refills Start Date End Date Status aspirin 81 MG EC tablet Take 1 tablet (81 mg total) by mouth daily. 0 Active atorvastatin (LIPITOR) tablet 20 mg 1 tab(s) orally once a day 0 11/16/2020 Active citalopram (CeleXA) 40 MG tablet 1 tab(s) orally once a day 0 03/29/2021 Active dulaglutide (Trulicity) 0.75 MG/0.5ML subcutaneous pen-injector as directed subcutaneously once a week 0 12/04/2022 Active ferrous sulfate 324 MG TBEC 2tab(s) orally once a day 0 Active hydroCHLOROthiazide (HYDRODIURIL) tablet 25 mg Take 1 tablet (25 mg total) by mouth daily. 0 Active hydrOXYzine (VISTARIL) 50 MG capsule 1 cap(s) orally tid prn anxiety 0 03/29/2021 Active lamoTRIgine (LaMICtal) 200 MG tablet 1 tab(s) orally qd 0 Active losartan (COZAAR) tablet 25 mg Take 1 tablet (25 mg total) by mouth daily. 0 Active NIFEdipine ER (ADALAT CC) 30 MG 24 hr tablet Take 1 tablet (30 mg total) by mouth. 0 Active Active Problems No known active problems Social History Tobacco Use Types Packs/Day Years Used Date Smoking Tobacco: Never Assessed Sex and Gender Information Value Date Recorded Sex Assigned at Male 11/01/2022 1:43 PM EDT Gender Identity Not on file Sexual Orientation Not on file Job Start Date Occupation Industry Not on file Not on file Not on file Last Filed Vital Signs Vital Sign Reading Time Taken Comments Blood Pressure 142/74 01/11/2023 3:55 PM EDT Pulse 91 01/11/2023 3:55 PM EDT Temperature 37.1 C (98.7 F) 01/11/2023 3:55 PM EDT Respiratory Rate - - Oxygen Saturation 97% 01/11/2023 3:55 PM EDT Inhaled Oxygen Concentration - - Weight 197.7 kg (435 lb 12.8 oz) 01/11/2023 3:55 PM EDT Height 175.3 cm (5' 9 ) 01/11/2023 3:55 PM EDT Body Mass Index 64.36 01/11/2023 3:55 PM EDT Plan of Treatment Health Maintenance Due Date Last Done Comments Hepatitis B Vaccines (1 of 3 - 3-dose series) 1975 Hepatitis C Screening 1975 COVID-19 Vaccine (#1) 05/09/1976 Depression Screening 1987 Preventative Health Evaluation 11/06/1993 DTap / Tdap / Td (2 - Td or Tdap) 06/08/2020 010 Colon Cancer Screening (Colonoscopy) 11/06/2020 Influenza Vaccine (#1) 2025 05/20/2021 Pneumococcal Vaccine Aged Out No long er eligible based on patient's age to complete this topic RSV Ped < 20 months Aged Out No longe r eligible based on patient's age to complete this topic
--- OUTSIDE RECORDS SUMMARY | 2025-06-25 22:32 | XMS_ITS | Clinical Summary ---
Author Organization [facility] Address [address] [place] [address] Care Team Providers Care Ecommerce Project Manager Name Role Phone Unavailable Primary Care Provider Unavailabl e Source Comments PLEASE NOTE, if this patient is a minor, it may be UNLAWFUL to discuss sensitive information that is contained in these records (such as FAMILY PLANNING, MENTAL HEALTH or SUBSTANCE ABUSE) with the minor patient's parent or other person without the patient's specific authorization.[facility] Immunizations Immunization Administration Dates Next Due Flu, Preservative Free 05/20/2021 Social History Tobacco Use Types Packs/Day Years Used Date Smoking Tobacco: Never Assessed Social Connections Answer Date Recorded Connectedness 0 04/23/2024 Financial Resource Strain Answer Date R ecorded Financial Resource Strain 0 2020 Stress Answer Date Recorded Stress 0 05/20/2021 Physical Activity Answer Date Recorded Physical Activity 0 05/20/2021 Food Insecurity Answer Date Recorded Food 0 05/07/2024 Transportation Needs Answer Date Record ed Transportation 0 05/20/2021 Housing Stability Answer Date Recorded Housing 0 05/20/2021 Safety and Environment Answer Date Perry rded Safety 0 05/20/2021 Utilities Answer Date Recorded Utilities 0 05/20/2021 Employment Answer Date Recorded Stress 0 04/23/2024 Sex and Gender Information Value Date Recorded Sex Assigned at Not on file Legal Sex Male 7:14 AM PDT Gender Identity Not on file Sexual Orientation Not on file Plan of Treatment Not on file Insurance [employer] [facility]
--- OUTSIDE RECORDS SUMMARY | 2025-06-25 22:33 | XMS_ITS | Clinical Summary ---
Author Organization [address] Address [address] [place] [phone] Phone Care Team Providers Care Hydraulic Spinner Name Role Phone Tiesha Mayo NP Primary Care Provider [phone] Allergies Active Allergy Reactions Criticality Noted Date Comments Pumpkin 01/19/2025 Medications No known medications Active Problems No known active problems Encounters Date Type Department Care Team Description 06/24/2025 Lab Requisition [facility] - Main Lab [address] [place] [address] Humaira Delgado NP Adult failure to thrive; Testicular hypofunction; Major depressive disorder, recurrent, severe with psychotic symptoms ([facility] V24, [facility] V28); Morbid (severe) obesity due to excess calories ([facility] V24, [facility] V28) from Last 3 Months Medical History Medical History Date Comments Essential (primary) hypertension DX:Essential (primary) hypertension Obstructive sleep apnea DX:Obstr uctive sleep apnea Morbid obesity ([facility] V24, [facility] V28) DX:Morbid obesity (HCC) Substance abuse ([facility] V24, [facility] V28) DX:Substance abuse (HCC) Social History Tobacco Use Types Packs/Day Years Used Date Smoking Tobacco: Former Cigarettes Smokeless Tobacco: Never Tobacco Cessation:Counseling Given: Not Answered Alcohol Use Standard Drinks/Week Comments Not Currently 0 (1 standard drink = 0.6 oz pur e alcohol) Sex and Gender Information Value Date Recorded Sex Assigned at Not on file Legal Sex Male 8:34 PM EST Gender Identity Not on file Sexual Orientation Not on file Obstetrics History Last Filed Vital Signs Vital Sign Reading Time Taken Comments Blood Pressure 117/85 02/03/2025 10:27 PM EDT Pulse 62 02/03/2025 10:27 PM EDT Temperature 36.8 C (98.2 F) 02/03/2025 10:27 PM EDT Respiratory Rate 18 02/03/2025 10:27 PM EDT Oxygen Saturation 97% 02/03/2025 10:27 PM EDT Inhaled Oxygen Concentration - - Weight 101 kg (223 lb) 02/03/2025 3:26 PM EDT Height 175.3 cm (5' 9 ) 02/03/2025 3:26 PM EDT Body Mass Index 32.93 02/03/2025 3:26 PM EDT Plan of Treatment Health Maintenance Due Date Last Done Comments Colorectal Cancer Screening: Colonoscopy 1975 Pneumococcal Vaccine: Pediatrics (0 to 5 Years) and At-Risk Patients (6 to 49 Years) (1 of 2 - PCV) 11/06/1994 Hepatitis B Vaccines (2 of 3 - 19+ 3-dose series) 02/28/2018 01/31/2018 HIV Screening 07/14/2022 Hepatitis C Screening 07/14/2022 Social Influencers of Health Screening 07/14/2022 Depression Screening 08/12/2024 COVID-19 Vaccine ( season) 2025 06/12/2023, 06/28/2022, 10/20/2021, Additional history exists Influenza Vaccine (#1) 2025 , 04/24/2022, 05/20/2021, Additional history exists Hypertension/CHF/CAD Annual BMP Blood Test 06/24/2026 06/24/2025, 03/03/2025, 02/20/2025, Additional history exists DTaP,Tdap,and Td Vaccines (4 - Td or Tdap) 02/01/2028 01/31/2018, 06/08/2010, 10/13/2007 Cholesterol Screening (Lipid Panel) 02/20/2030 02/20/2025, 01/15/2025, 07/15/2024 RSV Immunization Adult Patients (1 - 1-dose 75+ series) 11/06/2050 MMR Vaccines Aged Out 01/31/2018 No longer eligi ble based on patient's age to complete this topic Varicella Vaccines Aged Out 01/31/2018 No longer eligible based on patient's age to complete this topic Hepatitis A Vaccines Aged Out 04/18/2021 No long er eligible based on patient's age to complete this topic HIB Vaccines Aged Out No longer eligi ble based on patient's age to complete this topic HPV Vaccines Aged Out No longer eligi ble based on patient's age to complete this topic IPV Vaccines Aged Out No longer eligi ble based on patient's age to complete this topic Meningococcal ACWY Vaccine Aged Out N o longer eligible based on patient's age to complete this topic Meningococcal B Vaccine Aged Out No l onger eligible based on patient's age to complete this topic RSV Immunization Patients Under 20 months Aged Out No longer eligible based on patient's age to complete this topic Procedures Procedure Name Priority Date/Time Associated Diagnosis Comments TRIIODOTHYRONINE FREE Routine 06/24/2025 9:17 AM EST 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 hypofunction Major depressive disorder, recurrent, severe with psychotic symptoms (CMS/HCC V24, CMS/HCC V28) Morbid (severe) obesity due to excess calories (CMS/HCC V24, CMS/HCC V28) FREE THYROXINE WITH REFLEX TO FREE TRIIODOTHYRONINE Routine 06/24/2025 9:17 AM EST 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 hypofunction Major depressive disorder, recurrent, severe with psychotic symptoms (CMS/HCC V24, CMS/HCC V28) Morbid (severe) obesity due to excess calories (CMS/HCC V24, CMS/HCC V28) SST - GOLD Routine 06/24/2025 9:17 AM EST 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 hypofunction Major depressive disorder, recurrent, severe with psychotic symptoms (CMS/HCC V24, CMS/HCC V28) Morbid (severe) obesity due to excess calories (CMS/HCC V24, CMS/HCC V28) SST - GOLD Routine 06/24/2025 9:17 AM EST 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 hypofunction Major depressive disorder, recurrent, severe with psychotic symptoms (CMS/HCC V24, CMS/HCC V28) Morbid (severe) obesity due to excess calories (CMS/HCC V24, CMS/HCC V28) TESTOSTERONE, TOTAL Routine 06/24/2025 9 :17 AM EST 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 hypofunction Major depressive disorder, recurrent, severe with psychotic symptoms (CMS/HCC V24, CMS/HCC V28) Morbid (severe) obesity due to excess calories (CMS/HCC V24, CMS/HCC V28) VITAMIN D 25 HYDROXY Routine 06/24/2025 9:17 AM EST 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 hypofunction Major depressive disorder, recurrent, severe with psychotic symptoms (CMS/HCC V24, CMS/HCC V28) Morbid (severe) obesity due to excess calories (CMS/HCC V24, CMS/HCC V28) THYROID STIMULATING HORMONE WITH REFLEX TO FREE T4 AND FREE T3 Routine 06/24/2025 9:17 AM EST 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 hypofunction Major depressive disorder, recurrent, severe with psychotic symptoms (CMS/HCC V24, CMS/HCC V28) Morbid (severe) obesity due to excess calories (CMS/HCC V24, CMS/HCC V28) PROSTATE SPECIFIC ANTIGEN SCREEN Routine 06/24/2025 9:17 AM EST 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 hypofunction Major depressive disorder, recurrent, severe with psychotic symptoms (CMS/HCC V24, CMS/HCC V28) Morbid (severe) obesity due to excess calories (CMS/HCC V24, CMS/HCC V28) PROLACTIN Routine 06/24/2025 9:17 AM EST 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 hypofunction Major depressive disorder, recurrent, severe with psychotic symptoms (CMS/HCC V24, CMS/HCC V28) Morbid (severe) obesity due to excess calories (CMS/HCC V24, CMS/HCC V28) PHOSPHORUS Routine 06/24/2025 9:17 AM EST 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 hypofunction Major depressive disorder, recurrent, severe with psychotic symptoms (CMS/HCC V24, CMS/HCC V28) Morbid (severe) obesity due to excess calories (CMS/HCC V24, CMS/HCC V28) MAGNESIUM Routine 06/24/2025 9:17 AM EST 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 hypofunction Major depressive disorder, recurrent, severe with psychotic symptoms (CMS/HCC V24, CMS/HCC V28) Morbid (severe) obesity due to excess calories (CMS/HCC V24, CMS/HCC V28) LITHIUM LEVEL Routine 06/24/2025 9:17 AM EST 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 hypofunction Major depressive disorder, recurrent, severe with psychotic symptoms (CMS/HCC V24, CMS/HCC V28) Morbid (severe) obesity due to excess calories (CMS/HCC V24, CMS/HCC V28) LUTEINIZING HORMONE Routine 06/24/2025 9 :17 AM EST 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 hypofunction Major depressive disorder, recurrent, severe with psychotic symptoms (CMS/HCC V24, CMS/HCC V28) Morbid (severe) obesity due to excess calories (CMS/HCC V24, CMS/HCC V28) HEMOGLOBIN A1C Routine 06/24/2025 9:17 AM EST 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 hypofunction Major depressive disorder, recurrent, severe with psychotic symptoms (CMS/HCC V24, CMS/HCC V28) Morbid (severe) obesity due to excess calories (CMS/HCC V24, CMS/HCC V28) FOLLICLE STIMULATING HORMONE Routine 06/24/2025 9:17 AM EST 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 hypofunction Major depressive disorder, recurrent, severe with psychotic symptoms (CMS/HCC V24, CMS/HCC V28) Morbid (severe) obesity due to excess calories (CMS/HCC V24, CMS/HCC V28) COMPREHENSIVE METABOLIC PANEL Routine 06/24/2025 9:17 AM EST 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 hypofunction Major depressive disorder, recurrent, severe with psychotic symptoms (CMS/HCC V24, CMS/HCC V28) Morbid (severe) obesity due to excess calories (CMS/HCC V24, CMS/HCC V28) COMPLETE BLOOD COUNT Routine 06/24/2025 9:17 AM EST 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 hypofunction Major depressive disorder, recurrent, severe with psychotic symptoms (CMS/HCC V24, CMS/HCC V28) Morbid (severe) obesity due to excess calories (CMS/HCC V24, CMS/HCC V28) LIPID PANEL WITH REFLEX TO DIRECT LDL Routine 02/20/2025 7:00 AM EDT 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 Results obtained with different assay methods or kits cannot be used interchangeably. Results cannot be interpreted as absolute evidence of the presence or absence of malignant disease. Humaira Delgado LAB BLOOD ORDERABLES Final Result Performing Organization Address City/[facility]/ZIP Co de Phone Number [facility] [address] [place] [address], * (ABNORMAL) Thyroid stimulating hormone with reflex to free t4 and free t3 (06/24/2025 9:17 AM EST) TSH 4.62(H) 0.40 - 4.00 mcIU/mL LAB CHEMISTRY METHOD 06/24/2025 6:56 PM EST [facility] Blood Venous blood specimen / Unknown 06/24/2025 9:17 AM EST 06/24/2025 4:48 PM EST Eddichino Delgado LAB BLOOD ORDERABLES Final Result [facility] [address] [place] [address], [place] [phone] * Free thyroxine with reflex to free triiodothyronine (06/24/2025 9:17 AM EST) Pathologist [facility] Free T4 1.00 0.70 - 1.80 ng/dL LAB CHEMISTRY METHOD 06/24/2025 7:39 PM EST [facility] Blood Venous blood specimen / Unknown 06/24/2025 9:17 AM EST 06/24/2025 4:48 PM EST Eddielimaia Lewisionan INDUSTRIAL DESIGNER LAB BLOOD ORDERABLES Final Result [facility] [address] [place] [address], [place] [phone] * SST tube (06/24/2025 9:17 AM EST) Only the most recent of2 resultswithin the time period is included. [facility] Extra Tube Hold for add-ons. 06/24/2025 6:01 PM EST [facility] Comment:Auto resulted. Blood Venous blood specimen / Unknown 06/24/2025 9:17 AM EST 06/24/2025 4:48 PM EST Eddichino Delgado INDUSTRIAL DESIGNER LAB BLOOD ORDERABLES Final Result [facility] [address] [place] [address], [place] [phone] * Vitamin D 25 hydroxy (06/24/2025 9:17 AM EST) Pathologist [facility] Vit D, 25-Hydroxy 40.3 30.0 - 80.0 ng/mL LAB CHEMISTRY METHOD 06/24/2025 6:10 PM EST [facility] Blood Venous blood specimen / Unknown 06/24/2025 9:17 AM EST 06/24/2025 4:48 PM EST us Eddieliza Casionan INDUSTRIAL DESIGNER LAB BLOOD ORDERABLES Final Result Performing Organization Address City/[facility]/ZIP Co de Phone Number [facility] [address] [place] [address], [place] [phone] * Prolactin (06/24/2025 9:17 AM EST) Pathologist [facility] Prolactin 8.00 2.50 - 17.40 ng/mL LAB CHEMISTRY METHOD 06/24/2025 5:35 PM [facility] Blood Venous blood specimen / Unknown 06/24/2025 9:17 AM EST 06/24/2025 4:48 PM EST Eddieliza Casionan INDUSTRIAL DESIGNER LAB BLOOD ORDERABLES Final Result Performing Organization Address [facility]/ZIP Co de Phone Number [facility] [address] [place] [address], [place] [phone] * (ABNORMAL) Complete blood count (06/24/2025 9:17 AM EST) [facility] WBC 8.5 4.8 - 10.8 K/[facility] LAB HEMETOLOGY METHOD 06/24/2025 5:34 PM [facility] RBC 5.40 4.50 - 5.50 M/[facility] LAB HEMETOLOGY METHOD 06/24/2025 5:34 PM [facility] Hemoglobin 15.4 13.5 - 17.5 g/dL LAB HEMETOLOGY METHOD 06/24/2025 5:34 PM [facility] Hematocrit 48.8 42.0 - 54.0 % LAB HEMETOLOGY METHOD 06/24/2025 5:34 PM [facility] MCV 90.4 79.0 - 98.0 FL LAB HEMETOLOGY METHOD 06/24/2025 5:34 PM [facility] MCH 28.5 27.0 - 32.0 pcg LAB HEMETOLOGY METHOD 06/24/2025 5:34 PM EST [facility] MCHC 31.6(L) 32.0 - 37.0 g/dL LAB HEMETOLOGY METHOD 06/24/2025 5:34 PM EST [facility] RDW 13.5 11.0 - 15.0 % LAB HEMETOLOGY METHOD 06/24/2025 5:34 PM EST [facility] Platelets 209 130 - 400 K/mcL LAB HEMETOLOGY METHOD 06/24/2025 5:34 PM EST [facility] MPV 11.7(H) 7.0 - 11.0 FL LAB HEMETOLOGY METHOD 06/24/2025 5:34 PM EST [facility] NRBC 0.0 <1.0 % LAB HEMETOLOGY METHOD 06/24/2025 5:34 PM EST [facility] NRBC Absolute 0.00 <0.10 K/mcL LAB HEMETOLOGY METHOD 06/24/2025 5:34 PM EST [facility] Blood Venous blood specimen / Unknown 06/24/2025 9:17 AM EST 06/24/2025 4:48 PM EST Humaira Delgado INDUSTRIAL DESIGNER LAB BLOOD ORDERABLES Final Result [facility] [address] [place] [address], * Triiodothyronine free (06/24/2025 9:17 AM EST) T3, Free 322 230 - 420 pcg/dL LAB CHEMISTRY METHOD 06/24/2025 9:00 PM EST [facility] Blood Venous blood specimen / Unknown 06/24/2025 9:17 AM EST 06/24/2025 4:48 PM EST Eddichino Lewisionan INDUSTRIAL DESIGNER LAB BLOOD ORDERABLES Final Result Performing Organization Address [facility]/ZIP Co de Phone Number [facility] [address] [place] [address], [place] [phone] * Testosterone, total (06/24/2025 9:17 AM EST) Testosterone 446 229 - 902 ng/dL LAB CHEMISTRY METHOD 06/24/2025 5:37 PM EST [facility] Blood Venous blood specimen / Unknown 06/24/2025 9:17 AM EST 06/24/2025 4:48 PM EST Edsofi Ganan INDUSTRIAL DESIGNER LAB BLOOD ORDERABLES Final Result Performing Organization Address [facility] de Phone Number [facility] [address] [place] [address], [place] [phone] * Phosphorus (06/24/2025 9:17 AM EST) Phosphorus 3.5 2.5 - 4.5 mg/dL LAB CHEMISTRY METHOD 06/24/2025 5:32 PM EST [facility] Blood Venous blood specimen / Unknown 06/24/2025 9:17 AM EST 06/24/2025 4:48 PM EST Eddichino Ganan INDUSTRIAL DESIGNER LAB BLOOD ORDERABLES Final Result Performing Organization Address City/[facility]/ZIP Co de Phone Number [facility] [address] [place] [address], [place] [phone] * Magnesium (06/24/2025 9:17 AM EST) Magnesium 2.2 1.9 - 2.6 mg/dL LAB CHEMISTRY METHOD 06/24/2025 5:32 PM EST [facility] Blood Venous blood specimen / Unknown 06/24/2025 9:17 AM EST 06/24/2025 4:48 PM EST Humaira Delgado INDUSTRIAL DESIGNER LAB BLOOD ORDERABLES Final Result Performing Organization Address City/[facility]/ZIP Co de Phone Number [facility] [address] [place] [address], [place] [phone] * Hemoglobin A1c (06/24/2025 9:17 AM EST) Hemoglobin A1C 4.9 <6.5 % LAB CHEMISTRY METHOD 06/24/2025 8:45 PM EST [facility] Mean Bld Glu Estim. 94 mg/dL LAB CHEMISTRY METHOD 06/24/2025 8:45 PM EST [facility] Blood Venous blood specimen / Unknown 06/24/2025 9:17 AM EST 06/24/2025 4:48 PM EST Humaira Delgado LAB BLOOD ORDERABLES Final Result Performing Organization Address [facility] Co de Phone Number [facility] [address] [place] [address], [place] [phone] * Luteinizing hormone (06/24/2025 9:17 AM EST) Luteinizing Hormone 6.1 1.2 - 10.6 mIU/mL LAB CHEMISTRY METHOD 06/24/2025 5:35 PM EST [facility] Blood Venous blood specimen / Unknown 06/24/2025 9:17 AM EST 06/24/2025 4:48 PM EST Eddichino Delgado INDUSTRIAL DESIGNER LAB BLOOD ORDERABLES Final Result Performing Organization Address City/[facility]/ZIP Co de Phone Number [facility] [address] [place] [address], [place] [phone] * Follicle stimulating hormone (06/24/2025 9:17 AM EST) Follicle Stimulating Hormone 5.9 0.7 - 10.8 mIU/mL LAB CHEMISTRY METHOD 06/24/2025 5:35 PM EST [facility] Blood Venous blood specimen / Unknown 06/24/2025 9:17 AM EST 06/24/2025 4:48 PM EST Humaira Delgado INDUSTRIAL DESIGNER LAB BLOOD ORDERABLES Final Result [facility] [address] [place] [address], [place] [phone] * (ABNORMAL) Needles level (06/24/2025 9:17 AM EST) Pathologist [facility] Needles Level 0.4(L) 0.6 - 1.2 mEq/L LAB CHEMISTRY METHOD 06/24/2025 5:35 PM EST [facility] Blood Venous blood specimen / Unknown 06/24/2025 9:17 AM EST 06/24/2025 4:48 PM EST Humaira Delgado INDUSTRIAL DESIGNER LAB BLOOD ORDERABLES Final Result [facility] [address] [place] [address], [place] [phone] * (ABNORMAL) Comprehensive metabolic panel (06/24/2025 9:17 AM EST) Sodium 139 133 - 145 mmol/L LAB CHEMISTRY METHOD 06/24/2025 5:35 PM EST [facility] Potassium 4.2 3.5 - 5.5 mmol/L LAB CHEMISTRY METHOD 06/24/2025 5:35 PM EST [facility] Chloride 107 96 - 110 mmol/L LAB CHEMISTRY METHOD 06/24/2025 5:35 PM EST [facility] CO2 29 21 - 32 mmol/L LAB CHEMISTRY METHOD 06/24/2025 5:35 PM [facility] Anion Gap 3 3 - 11 LAB CHEMISTRY METHOD 06/24/2025 5:35 PM [facility] Glucose 71 70 - 100 mg/dL LAB CHEMISTRY METHOD 06/24/2025 5:35 PM [facility] BUN 13 5 - 25 mg/dL LAB CHEMISTRY METHOD 06/24/2025 5:35 PM [facility] Creatinine 1.37(H) 0.70 - 1.30 mg/dL LAB CHEMISTRY METHOD 06/24/2025 5:35 PM [facility] eGFR 63 >=60 mL/min/1. 73m2 LAB CHEMISTRY METHOD 06/24/2025 5:35 PM [facility] Comment:Calculation based on the Chronic Kidney Disease Epidemiology Collaboration (CKD-EPI) equation refit without adjustment for race. BUN/Creatinine Ratio 9.5 LAB CHEMISTRY METHOD 06/24/2025 5:35 PM [facility] Calcium 9.1 8.5 - 10.5 mg/dL LAB CHEMISTRY METHOD 06/24/2025 5:35 PM [facility] AST (SGOT) 19 10 - 42 unit/L LAB CHEMISTRY METHOD 06/24/2025 5:35 PM [facility] ALT (SGPT) 40 10 - 60 unit/L LAB CHEMISTRY METHOD 06/24/2025 5:35 PM [facility] Alkaline Phosphatase 69 42 - 121 unit/L LAB CHEMISTRY METHOD 06/24/2025 5:35 PM [facility] Total Protein 6.1 6.0 - 8.0 g/dL LAB CHEMISTRY METHOD 06/24/2025 5:35 PM [facility] Albumin 3.4 3.2 - 5.0 g/dL LAB CHEMISTRY METHOD 06/24/2025 5:35 PM [facility] Total Bilirubin 0.7 0.0 - 1.4 mg/dL LAB CHEMISTRY METHOD 06/24/2025 5:35 PM EST [facility] Blood Venous blood specimen / Unknown 06/24/2025 9:17 AM EST 06/24/2025 4:48 PM EST us Humaira Delgado INDUSTRIAL DESIGNER LAB BLOOD ORDERABLES Final Result [facility] [address] [place] [address], [place] [phone] * Lipid panel with reflex to direct LDL (02/20/2025 7:00 AM EDT) Cholesterol 103 0 - 200 mg/dL LAB CHEMISTRY METHOD 02/20/2025 2:01 PM EDT [facility] Triglycerides 84 0 - 150 mg/dL LAB CHEMISTRY METHOD 02/20/2025 2:01 PM EDT [facility] HDL 47 >=40 mg/dL LAB CHEMISTRY METHOD 02/20/2025 2:01 PM EDT [facility] LDL Calculated 39 0 - 100 mg/dL LAB CHEMISTRY METHOD 02/20/2025 2:01 PM EDT [facility] VLDL Cholesterol [place] 16.8 mg/dL LAB CHEMISTRY METHOD 02/20/2025 2:01 PM EDT [facility] Non HDL Chol. (LDL+VLDL) 56 <145 mg/dL LAB CHEMISTRY METHOD 02/20/2025 2:01 PM EDT [facility] Chol/HDL Ratio 2.2 0.0 - 4.4 LAB CHEMISTRY METHOD 02/20/2025 2:01 PM EDT [facility] Blood Venous blood specimen / Unknown Venipuncture / Unknown 02/20/2025 7:00 AM EDT 02/20/2025 12:52 PM EDT us Kamar Torres INDUSTRIAL DESIGNER LAB BLOOD ORDERABLES Final Resu lt [facility] [address] [place] [address], from Last 3 Months or Most Recently Relevant to Health Maintenance Insurance [facility] MEDICAID Care Teams Hydraulic Spinner Relationship Specialty Start Date End Date Tiesha Mayo NP [address] [place], [place] PCP - General Internal Medicine 05/17/22
--- OUTSIDE RECORDS SUMMARY | 2025-06-25 22:33 | XMS_ITS | Encounter Summary ---
Author Organization [facility] Address [address] [place] [address] Care Team Providers Care Vat Operator Name Role Phone GaelTiesha HUMAN FACTORS ADVISOR LEAD Primary Care Provider [phone] Encounter Details Date Type Department Care Team (Late st Contact Info) Description 03/10/2025 Lab Requisition [facility] - Main Lab [address] [facility] [address] Kamar Torres NP [address] [place] [address] Social History Tobacco Use Types Packs/Day Years Used Date Smoking Tobacco: Former Cigarettes Smokeless Tobacco: Never Alcohol Use Standard Drinks/Week Comments Not Currently 0 (1 standard drink = 0.6 oz pur e alcohol) Sex and Gender Information Value Date Recorded Sex Assigned at Not on file Legal Sex Male 8:34 PM EST Gender Identity Not on file Sexual Orientation Not on file documented as of this encounter Functional Status * Are you deaf or do you have serious difficulty hearing? Answer Date of Assessment Author No 01/19/2025 7:17 PM Corby Fishman RN * Are you blind or do you have serious difficulty seeing, even when wearing glasses? Answer Date of Assessment Author No 01/19/2025 7:17 PM Corby Fishman RN * Do you have serious difficulty walking or climbing stairs? Answer Date of Assessment Author No 01/19/2025 7:17 PM Corby Fishman RN * Do you have serious difficulty dressing or bathing? Answer Date of Assessment Author No 01/19/2025 7:17 PM Corby Fishman RN * Because of a physical, mental, or emotional condition, do you have serious difficulty doing errandsalone such as visiting the doctor? Answer Date of Assessment Author No 01/19/2025 7:17 PM Corby Fishman RN documented as of this encounter Mental Status * Because of a physical, mental, or emotional condition, do you have serious difficulty concentrating, remembering, or making decisions? (5 years old or older) Answer Entry Date Author No 01/19/2025 7:17 PM Corby Fishman RN documented in this encounter Plan of Treatment Not on file documented as of this encounter Visit Diagnoses Not on filedocumented in this encounter Care Teams Vat Operator Relationship Specialty Start Date End Date Tiesha Mayo NP [address] [place] [address] PCP - General Internal Medicine 05/17/22 documented as of this encounter
--- OUTSIDE RECORDS SUMMARY | 2025-06-25 22:34 | XMS_ITS | Encounter Summary ---
Author Organization [facility] Address [address] [place] [address] Care Team Providers Care Client Services Representative Name Role Phone GaelTiesha COAL SHOVELER Primary Care Provider Encounter Details Date Type Department Care Team (Late st Contact Info) Description 06/24/2025 Lab Requisition [facility] - Main Lab [address] [facility] [place] [address] Humaira Delgado NP [address] [place] [address] Adult failure to thrive; Testicular hypofunction; Major depressive disorder, recurrent, severe with psychotic symptoms (CMS/HCC V24, CMS/HCC V28); Morbid (severe) obesity due to excess calories (CMS/HCC V24, CMS/HCC V28) Social History Tobacco [...] of Assessment Author No 01/19/2025 7:17 PM EDT Corby Gonzalez RN * Do you have serious difficulty walking or climbing stairs? Answer Date of Assessment Author No 01/19/2025 7:17 PM EDT Corby Gonzalez RN * Do you have serious difficulty dressing or bathing? Answer Date of Assessment Author No 01/19/2025 7:17 PM EDT Corby Gonzalez RN * Because of a physical, mental, or emotional condition, do you have serious difficulty doing errandsalone such as visiting the doctor? Answer Date of Assessment Author No 01/19/2025 7:17 PM EDT Corby Gonzalez RN documented as of this encounter Mental Status * Because of a physical, mental, or emotional condition, do you have serious difficulty concentrating, remembering, or making decisions? (5 years old or older) Answer Entry Date Author No 01/19/2025 7:17 PM Corby Fishman RN documented in this encounter Plan of Treatment Pending Results Name Type Priority Associated Diagnoses Date /Time Vitamin B1 Lab Routine 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 hypofunction Major depressive disorder, recurrent, severe with psychotic symptoms (CMS/HCC V24, CMS/HCC V28) Morbid (severe) obesity due to excess calories (CMS/HCC V24, CMS/HCC V28) 06/24/2025 9:17 AM EST documented as of this encounter Procedures Procedure Name Priority Date/Time Associated Diagnosis Comments PROSTATE SPECIFIC ANTIGEN SCREEN Routine 06/24/2025 9:17 [...] to excess calories (CMS/HCC V24, CMS/HCC V28) TRIIODOTHYRONINE FREE Routine 06/24/2025 9:17 AM EST [...] to excess calories (CMS/HCC V24, CMS/HCC V28) documented in this encounter Results * Triiodothyronine free (06/24/2025 9:17 AM EST) T3, Free 322 230 - 420 pcg/dL LAB CHEMISTRY METHOD 06/24/2025 9:00 PM EST [facility] Blood Venous blood specimen / Unknown 06/24/2025 9:17 AM EST 06/24/2025 4:48 PM EST us Humaira Delgado COAL SHOVELER LAB BLOOD ORDERABLES Final Result Performing Organization Address [facility]/ZIP Co de Phone Number [facility] [address] [place] [address], [place] [phone] * Free thyroxine with reflex to free triiodothyronine (06/24/2025 9:17 AM EST) Free T4 1.00 0.70 - 1.80 ng/dL LAB CHEMISTRY METHOD 06/24/2025 7:39 PM EST [facility] Blood Venous blood specimen / Unknown 06/24/2025 9:17 AM EST 06/24/2025 4:48 PM EST Eddichino Delgado COAL SHOVELER LAB BLOOD ORDERABLES Final Result Performing Organization Address City/[facility]/ZIP Co de Phone Number [facility] [address] [place] [address], [place] [phone] * SST tube (06/24/2025 9:17 AM EST) Extra Tube Hold for add-ons. 06/24/2025 6:01 PM EST [facility] Comment:Auto resulted. Blood Venous blood specimen / Unknown 06/24/2025 9:17 AM EST 06/24/2025 4:48 PM EST us Eddieliza Casionan COAL SHOVELER LAB BLOOD ORDERABLES Final Result [facility] [address] [place] [address], [place] [phone] * SST tube (06/24/2025 9:17 AM EST) Extra Tube Hold for add-ons. 06/24/2025 6:01 PM EST [facility] Comment:Auto resulted. Blood Venous blood specimen / Unknown 06/24/2025 9:17 AM EST 06/24/2025 4:48 PM EST Eddichino Lewisionan COAL SHOVELER LAB BLOOD ORDERABLES Final Result Performing Organization Address [facility]/ZIP Co de Phone Number [facility] [address] [place] [address], [place] [phone] * Testosterone, total (06/24/2025 9:17 AM EST) Testosterone 446 229 - 902 ng/dL LAB CHEMISTRY METHOD 06/24/2025 5:37 PM EST [facility] Blood Venous blood specimen / Unknown 06/24/2025 9:17 AM EST 06/24/2025 4:48 PM EST us Eddieliza Casionan COAL SHOVELER LAB BLOOD ORDERABLES Final Result [facility] [address] [place] [address], * Vitamin D 25 hydroxy (06/24/2025 9:17 AM EST) Vit D, 25-Hydroxy 40.3 30.0 - 80.0 ng/mL LAB CHEMISTRY METHOD 06/24/2025 6:10 PM EST [facility] Blood Venous blood specimen / Unknown 06/24/2025 9:17 AM EST 06/24/2025 4:48 PM EST Humaira Delgado COAL SHOVELER LAB BLOOD ORDERABLES Final Result Performing Organization Address [facility] Co de Phone Number [facility] [address] [place] [address], * (ABNORMAL) Thyroid stimulating hormone with reflex to free t4 and free t3 (06/24/2025 9:17 AM EST) TSH 4.62(H) 0.40 - 4.00 mcIU/mL LAB CHEMISTRY METHOD 06/24/2025 6:56 PM EST [facility] Blood Venous blood specimen / Unknown 06/24/2025 9:17 AM EST 06/24/2025 4:48 PM EST Humaira Delgado COAL SHOVELER LAB BLOOD ORDERABLES Final Result Performing Organization Address City/[facility]/ZIP Co de Phone Number [facility] [address] [place] [address], [place] [phone] * Prostate specific antigen screen (06/24/2025 9:17 AM EST) PSA 0.89 0.00 - 4.00 ng/mL LAB CHEMISTRY METHOD 06/24/2025 6:10 PM EST [facility] Blood Venous blood specimen / Unknown 06/24/2025 9:17 AM EST 06/24/2025 4:48 PM EST Narrative [facility] - 06/24/2025 6:10 PM EST The Siemens Advia Centaur Chemiluminescent Immunoassay is used. Results obtained with different assay methods or kits cannot be used interchangeably. Results cannot be interpreted as absolute evidence of the presence or absence of malignant disease. Eddielimaia Casionan COAL SHOVELER LAB BLOOD ORDERABLES Final Result [facility] [address] [place] [address], [place] [phone] * Prolactin (06/24/2025 9:17 AM EST) Prolactin 8.00 2.50 - 17.40 ng/mL LAB CHEMISTRY METHOD 06/24/2025 5:35 PM EST [facility] Blood Venous blood specimen / Unknown 06/24/2025 9:17 AM EST 06/24/2025 4:48 PM EST Eddichino Joshuaionan COAL SHOVELER LAB BLOOD ORDERABLES Final Result Performing Organization Address [facility]/ZIP Co de Phone Number [facility] [address] [place] [address], [place] [phone] * Phosphorus (06/24/2025 9:17 AM EST) Phosphorus 3.5 2.5 - 4.5 mg/dL LAB CHEMISTRY METHOD 06/24/2025 5:32 PM EST [facility] Blood Venous blood specimen / Unknown 06/24/2025 9:17 AM EST 06/24/2025 4:48 PM EST Eddielimaia Lewisionan COAL SHOVELER LAB BLOOD ORDERABLES Final Result Performing Organization Address City/[facility]/ZIP Co de Phone Number [facility] [address] [place] [address], * Magnesium (06/24/2025 9:17 AM EST) Magnesium 2.2 1.9 - 2.6 mg/dL LAB CHEMISTRY METHOD 06/24/2025 5:32 PM EST [facility] Blood Venous blood specimen / Unknown 06/24/2025 9:17 AM EST 06/24/2025 4:48 PM EST us Eddichino Delgado COAL SHOVELER LAB BLOOD ORDERABLES Final Result [facility] [address] [place] [address], * (ABNORMAL) [place] level (06/24/2025 9:17 AM EST) [place] Level 0.4(L) 0.6 - 1.2 mEq/L LAB CHEMISTRY METHOD 06/24/2025 5:35 PM EST [facility] Blood Venous blood specimen / Unknown 06/24/2025 9:17 AM EST 06/24/2025 4:48 PM EST Humaira Delgado COAL SHOVELER LAB BLOOD ORDERABLES Final Result [facility] [address] [place] [address], * Luteinizing hormone (06/24/2025 9:17 AM EST) Luteinizing Hormone 6.1 1.2 - 10.6 mIU/mL LAB CHEMISTRY METHOD 06/24/2025 5:35 PM EST [facility] Blood Venous blood specimen / Unknown 06/24/2025 9:17 AM EST 06/24/2025 4:48 PM EST Eddieliza Casionan COAL SHOVELER LAB BLOOD ORDERABLES Final Result Performing Organization Address [facility]/ZIP Co de Phone Number [facility] [address] [place] [address], * Hemoglobin A1c (06/24/2025 9:17 AM EST) Pathologist [facility] Hemoglobin A1C 4.9 <6.5 % LAB CHEMISTRY METHOD 06/24/2025 8:45 PM EST [facility] Mean Bld Glu Estim. 94 mg/dL LAB CHEMISTRY METHOD 06/24/2025 8:45 PM EST [facility] Blood Venous blood specimen / Unknown 06/24/2025 9:17 AM EST 06/24/2025 4:48 PM EST Humaira Delgado LAB BLOOD ORDERABLES Final Result Performing Organization Address [facility] Co de Phone Number [facility] [address] [place] [address], [place] [phone] * Follicle stimulating hormone (06/24/2025 9:17 AM EST) [facility] Follicle Stimulating Hormone 5.9 0.7 - 10.8 mIU/mL LAB CHEMISTRY METHOD 06/24/2025 5:35 PM EST [facility] Blood Venous blood specimen / Unknown 06/24/2025 9:17 AM EST 06/24/2025 4:48 PM EST Edsofi Delgado LAB BLOOD ORDERABLES Final Result Performing Organization Address [facility]/ZIP Co de Phone Number [facility] [address] [place] [address], [place] [phone] * (ABNORMAL) Comprehensive metabolic panel (06/24/2025 9:17 AM EST) [facility] Sodium 139 133 - 145 mmol/L LAB CHEMISTRY METHOD 06/24/2025 5:35 PM EST [facility] Potassium 4.2 3.5 - 5.5 mmol/L LAB CHEMISTRY METHOD 06/24/2025 5:35 PM [facility] Chloride 107 96 - 110 mmol/L LAB CHEMISTRY METHOD 06/24/2025 5:35 PM [facility] CO2 29 21 - 32 mmol/L LAB CHEMISTRY METHOD 06/24/2025 5:35 PM [facility] Anion Gap 3 3 - 11 LAB CHEMISTRY METHOD 06/24/2025 5:35 PM [facility] Glucose 71 70 - 100 mg/dL LAB CHEMISTRY METHOD 06/24/2025 5:35 PM [facility] BUN 13 5 - 25 mg/dL LAB CHEMISTRY METHOD 06/24/2025 5:35 PM [facility] Creatinine 1.37(H) 0.70 - 1.30 mg/dL LAB CHEMISTRY METHOD 06/24/2025 5:35 PM [facility] eGFR 63 >=60 mL/min/1. 73m2 LAB CHEMISTRY METHOD 06/24/2025 5:35 PM [facility] Comment:Calculation based on the Chronic Kidney Disease Epidemiology Collaboration (CKD-EPI) equation refit without adjustment for race. BUN/Creatinine Ratio 9.5 LAB CHEMISTRY METHOD 06/24/2025 5:35 PM [facility] Calcium 9.1 8.5 - 10.5 mg/dL LAB CHEMISTRY METHOD 06/24/2025 5:35 PM [facility] AST (SGOT) 19 10 - 42 unit/L LAB CHEMISTRY METHOD 06/24/2025 5:35 PM [facility] ALT (SGPT) 40 10 - 60 unit/L LAB CHEMISTRY METHOD 06/24/2025 5:35 PM [facility] Alkaline Phosphatase 69 42 - 121 unit/L LAB CHEMISTRY METHOD 06/24/2025 5:35 PM [facility] Total Protein 6.1 6.0 - 8.0 g/dL LAB CHEMISTRY METHOD 06/24/2025 5:35 PM [facility] Albumin 3.4 3.2 - 5.0 g/dL LAB CHEMISTRY METHOD 06/24/2025 5:35 PM [facility] Total Bilirubin 0.7 0.0 - 1.4 mg/dL LAB CHEMISTRY METHOD 06/24/2025 5:35 PM [facility] Blood Venous blood specimen / Unknown 06/24/2025 9:17 AM EST 06/24/2025 4:48 PM EST Humaira Delgado NP LAB BLOOD ORDERABLES Final Result [facility] [address] [place] [address], * (ABNORMAL) Complete blood count (06/24/2025 9:17 AM EST) WBC 8.5 4.8 - 10.8 K/[facility] LAB HEMETOLOGY METHOD 06/24/2025 5:34 PM [facility] RBC 5.40 4.50 - 5.50 M/[facility] LAB HEMETOLOGY METHOD 06/24/2025 5:34 PM [facility] Hemoglobin 15.4 13.5 - 17.5 g/dL LAB HEMETOLOGY METHOD 06/24/2025 5:34 PM [facility] Hematocrit 48.8 42.0 - 54.0 % LAB HEMETOLOGY METHOD 06/24/2025 5:34 PM [facility] MCV 90.4 79.0 - 98.0 FL LAB HEMETOLOGY METHOD 06/24/2025 5:34 PM [facility] MCH 28.5 27.0 - 32.0 pcg LAB HEMETOLOGY METHOD 06/24/2025 5:34 PM EST [facility] MCHC 31.6(L) 32.0 - 37.0 g/dL LAB HEMETOLOGY METHOD 06/24/2025 5:34 PM EST [facility] RDW 13.5 11.0 - 15.0 % LAB HEMETOLOGY METHOD 06/24/2025 5:34 PM [facility] Platelets 209 130 - 400 K/mcL LAB HEMETOLOGY METHOD 06/24/2025 5:34 PM [facility] MPV 11.7(H) 7.0 - 11.0 FL LAB HEMETOLOGY METHOD 06/24/2025 5:34 PM EST [facility] NRBC 0.0 <1.0 % LAB HEMETOLOGY METHOD 06/24/2025 5:34 PM [facility] NRBC Absolute 0.00 <0.10 K/mcL LAB HEMETOLOGY METHOD 06/24/2025 5:34 PM [facility] Blood Venous blood specimen / Unknown 06/24/2025 9:17 AM EST 06/24/2025 4:48 PM EST us Humaira Delgado NP LAB BLOOD ORDERABLES Final Result [facility] [address] [place] [address], documented in this encounter Visit Diagnoses Diagnosis 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 hypofunction Other testicular hypofunction Major depressive disorder, recurrent, severe with psychotic symptoms (CMS/HCC V24, CMS/HCC V28) Morbid (severe) obesity due to excess calories (CMS/HCC V24, CMS/HCC V28) documented in this encounter Care Teams Client Services Representative Relationship Specialty Start Date End Date Tiesha Mayo NP [address] [place], [place] PCP - General Internal Medicine 05/17/22 documented as of this encounter
--- OUTSIDE RECORDS SUMMARY | 2025-06-25 22:34 | XMS_ITS | Encounter Summary ---
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 Social History Tobacco Use Types Packs/Day Years [...] Entry Date Author No 01/19/2025 7:17 PM EDT Corby Gonzalez RN documented in this encounter Plan of Treatment Not on file documented as of this encounter Procedures Procedure Name Priority Date/Time Associated Diagnosis Comments VITAMIN B12 Routine 03/10/2025 7:00 AM EDT Other supervisor long goods (current) drug therapy documented in this encounter Results * Vitamin B12 (03/10/2025 7:00 AM EDT) Vitamin B-12 740 250 - 900 pcg/mL LAB CHEMISTRY METHOD 03/10/2025 10:28 AM EDT [facility] Blood Venous blood specimen / Unknown Venipuncture / Unknown 03/10/2025 7:00 AM EDT 03/10/2025 8:41 AM EDT us Kamar Torres NP LAB BLOOD ORDERABLES Final Resu lt [facility] [address] [place] [address], documented in this encounter Visit Diagnoses Diagnosis Other halfway (current) drug therapy documented in this encounter Care Teams Handbag Parts Cutter Relationship Specialty Start Date End Date Tiesha Mayo NP [address] [place], [place] PCP - General Internal Medicine 05/17/22 documented as of this encounter
--- OUTSIDE RECORDS SUMMARY | 2025-06-25 22:34 | XMS_ITS | Encounter Summary ---
Author Organization [facility] Address [address] [place] [address] Care Team Providers Care Supervisor Composing Room Name Role Phone GaelTiesha HOPPER OPERATOR Primary Care Provider Encounter Details Date Type Department Care Team (Late st Contact Info) Description 02/20/2025 Lab Requisition [facility] - Main Lab [address] [facility] [place] [address] Kamar Torres NP [address] [place] [address] Social History Tobacco Use Types Packs/Day Years [...] on filedocumented in this encounter Care Teams Supervisor Composing Room Relationship Specialty Start Date End Date Tiesha Mayo NP [address] [place] [address] PCP - General Internal Medicine 05/17/22 documented as of this encounter
--- OUTSIDE RECORDS SUMMARY | 2025-06-25 22:35 | XMS_ITS | Encounter Summary ---
Author Organization [facility] Address [address] [place] [address] Care Team Providers Care Crab Picker Name Role Phone GaelTiesha BUFFING LINE SET UP WORKER Primary Care Provider Encounter Details Date Type Department Care Team (Late st Contact Info) Description 03/03/2025 Lab Requisition [facility] - Main Lab [address] [facility] [place] [address] Kamar Torres NP [address] [place] [address] Social History Tobacco Use Types Packs/Day Years [...] documented in this encounter Plan of Treatment Scheduled Orders Name Type Priority Associated Diagnoses Orde r Schedule Vitamin B12 Lab Routine Ordered: 02/10 documented as of this encounter Visit Diagnoses Not on filedocumented in this encounter Care Teams Crab Picker Relationship Specialty Start Date End Date Tiesha Mayo NP [address] [place], [place] PCP - General Internal Medicine 05/17/22 documented as of this encounter
--- OUTSIDE RECORDS SUMMARY | 2025-06-25 22:35 | XMS_ITS | Encounter Summary ---
Author Organization [facility] Address [address] [place] [address] Care Team Providers Care Correspondence Renew Clerk Name Role Phone GaelRobertTiesha BARBER SHOP OPERATOR Primary Care Provider Encounter Details Date Type Department Care Team (Late st Contact Info) Description 02/20/[address] [facility] - Main Lab [address] [facility] [place] [address] Kamar Torres NP [address] [place] [address] Other alf (current) drug therapy Social History Tobacco Use [...] Procedure Name Priority Date/Time Associated Diagnosis Comments LIPID PANEL WITH REFLEX TO DIRECT LDL Routine 02/20/2025 7:00 AM EDT Other alf (current) drug therapy HEMOGLOBIN A1C Routine 02/20/2025 7:00 AM EDT Other supervisor assembly room (current) drug therapy COMPREHENSIVE METABOLIC PANEL Routine 02/20/2025 7:00 AM EDT Other alf (current) drug therapy documented in this encounter Results * Lipid panel with reflex to direct LDL (02/20/2025 7:00 AM EDT) Cholesterol 103 0 - 200 mg/dL LAB CHEMISTRY METHOD 02/20/2025 2:01 PM EDT [facility] Triglycerides 84 0 - 150 mg/dL LAB CHEMISTRY METHOD 02/20/2025 2:01 PM [facility] HDL 47 >=40 mg/dL LAB CHEMISTRY METHOD 02/20/2025 2:01 PM [facility] LDL Calculated 39 0 - 100 mg/dL LAB CHEMISTRY METHOD 02/20/2025 2:01 PM [facility] VLDL Cholesterol [place] 16.8 mg/dL LAB CHEMISTRY METHOD 02/20/2025 2:01 PM T [facility] Non HDL Chol. (LDL+VLDL) 56 <145 mg/dL LAB CHEMISTRY METHOD 02/20/2025 2:01 PM EDT [facility] Chol/HDL Ratio 2.2 0.0 - 4.4 LAB CHEMISTRY METHOD 02/20/2025 2:01 PM [facility] Blood Venous blood specimen / Unknown Venipuncture / Unknown 02/20/2025 7:00 AM EDT 02/20/2025 12:52 PM EDT us Kamar Torres BARBER SHOP OPERATOR LAB BLOOD ORDERABLES Final Resu lt [facility] [address] [place] [address], [place] [phone] * (ABNORMAL) Comprehensive metabolic panel (02/20/2025 7:00 AM EDT) Sodium 144 133 - 145 mmol/L LAB CHEMISTRY METHOD 02/20/2025 2:05 PM [facility] Potassium 3.7 3.5 - 5.5 mmol/L LAB CHEMISTRY METHOD 02/20/2025 2:05 PM [facility] Chloride 108 96 - 110 mmol/L LAB CHEMISTRY METHOD 02/20/2025 2:05 PM [facility] CO2 28 21 - 32 mmol/L LAB CHEMISTRY METHOD 02/20/2025 2:05 PM [facility] Anion Gap 8 3 - 11 LAB CHEMISTRY METHOD 02/20/2025 2:05 PM [facility] Glucose 44(L) 70 - 100 mg/dL LAB CHEMISTRY METHOD 02/20/2025 2:05 PM [facility] Comment:Interpret with care- delay in processing BUN 10 5 - 25 mg/dL LAB CHEMISTRY METHOD 02/20/2025 2:05 PM [facility] Creatinine 0.76 0.70 - 1.30 mg/dL LAB CHEMISTRY METHOD 02/20/2025 2:05 PM [facility] eGFR 110 >=60 mL/min/1. 73m2 LAB CHEMISTRY METHOD 02/20/2025 2:05 PM [facility] Comment:Calculation based on the Chronic Kidney Disease Epidemiology Collaboration (CKD-EPI) equation refit without adjustment for race. BUN/Creatinine Ratio 13.2 LAB CHEMISTRY METHOD 02/20/2025 2:05 PM [facility] Calcium 8.8 8.5 - 10.5 mg/dL LAB CHEMISTRY METHOD 02/20/2025 2:05 PM [facility] AST (SGOT) 18 10 - 42 unit/L LAB CHEMISTRY METHOD 02/20/2025 2:05 PM [facility] ALT (SGPT) 13 10 - 60 unit/L LAB CHEMISTRY METHOD 02/20/2025 2:05 PM [facility] Alkaline Phosphatase 85 42 - 121 unit/L LAB CHEMISTRY METHOD 02/20/2025 2:05 PM [facility] Total Protein 4.9(L) 6.0 - 8.0 g/dL LAB CHEMISTRY METHOD 02/20/2025 2:05 PM [facility] Albumin 2.5(L) 3.2 - 5.0 g/dL LAB CHEMISTRY METHOD 02/20/2025 2:05 PM [facility] Total Bilirubin 1.8(H) 0.0 - 1.4 mg/dL LAB CHEMISTRY METHOD 02/20/2025 2:05 PM [facility] Blood Venous blood specimen / Unknown Venipuncture / Unknown 02/20/2025 7:00 AM EDT 02/20/2025 12:52 PM EDT us Kamar Torres BARBER SHOP OPERATOR LAB BLOOD ORDERABLES Edited Res ult - Final [facility] [address] [place] [address], * Hemoglobin A1c (02/20/2025 7:00 AM EDT) Hemoglobin A1C 5.0 <6.5 % LAB CHEMISTRY METHOD 02/21/2025 8:02 AM EDT [facility] Mean Bld Glu Estim. 97 mg/dL LAB CHEMISTRY METHOD 02/21/2025 8:02 AM EDT [facility] Blood Venous blood specimen / Unknown Venipuncture / Unknown 02/20/2025 7:00 AM EDT 02/20/2025 12:52 PM EDT us Kamar Torres NP LAB BLOOD ORDERABLES Final Resu lt [facility] [address] [place] [address], [place] [phone] documented in this encounter Visit Diagnoses Diagnosis Other supervisor assembly room (current) drug therapy documented in this encounter Care Teams Correspondence Renew Clerk Relationship Specialty Start Date End Date Tiesha Myao NP [address] [place], [place] PCP - General Internal Medicine 05/17/22 documented as of this encounter
--- OUTSIDE RECORDS SUMMARY | 2025-06-25 22:35 | XMS_ITS | Encounter Summary ---
Author Organization [facility] Address [address] [place] [address] Care Team Providers Care Homebound Teacher Name Role Phone Tiesha Mayo SCOTT Primary Care Provider Encounter Details Date Type Department Care Team (Late st Contact Info) Description 03/03/2025 Lab Requisition [facility] - Main Lab [address] [facility] [place] [address] Pam Gore-Sasha [address] [place] [phone] Other integration architect (current) drug therapy Social History Tobacco Use [...] Name Priority Date/Time Associated Diagnosis Comments VITAMIN D 25 HYDROXY Routine 03/03/2025 7:00 AM EDT Other integration architect (current) drug therapy COMPREHENSIVE METABOLIC PANEL Routine 03/03/2025 7:00 AM EDT Other integration architect (current) drug therapy documented in this encounter Results * Vitamin D 25 hydroxy (03/03/2025 7:00 AM EDT) Pathologist [facility] Vit D, 25-Hydroxy 61.0 30.0 - 80.0 ng/mL LAB CHEMISTRY METHOD 03/03/2025 2:13 PM EDT [facility] Blood Venous blood specimen / Unknown Venipuncture / Unknown 03/03/2025 7:00 AM EDT 03/03/2025 10:39 AM EDT us Nancy Gore LAB BLOOD ORDERABLES Final Resu lt [facility] [address] [place] [address], * (ABNORMAL) Comprehensive metabolic panel (03/03/2025 7:00 AM EDT) Pathologist [facility] Sodium 142 133 - 145 mmol/L LAB CHEMISTRY METHOD 03/03/2025 1:21 PM EDT [facility] Potassium 4.3 3.5 - 5.5 mmol/L LAB CHEMISTRY METHOD 03/03/2025 1:21 PM [facility] Chloride 108 96 - 110 mmol/L LAB CHEMISTRY METHOD 03/03/2025 1:21 PM [facility] CO2 29 21 - 32 mmol/L LAB CHEMISTRY METHOD 03/03/2025 1:21 PM [facility] Anion Gap 5 3 - 11 LAB CHEMISTRY METHOD 03/03/2025 1:21 PM [facility] Glucose 64(L) 70 - 100 mg/dL LAB CHEMISTRY METHOD 03/03/2025 1:21 PM [facility] BUN 12 5 - 25 mg/dL LAB CHEMISTRY METHOD 03/03/2025 1:21 PM [facility] Creatinine 0.92 0.70 - 1.30 mg/dL LAB CHEMISTRY METHOD 03/03/2025 1:21 PM [facility] eGFR 102 >=60 mL/min/1. 73m2 LAB CHEMISTRY METHOD 03/03/2025 1:21 PM [facility] Comment:Calculation based on the Chronic Kidney Disease Epidemiology Collaboration (CKD-EPI) equation refit without adjustment for race. BUN/Creatinine Ratio 13.0 LAB CHEMISTRY METHOD 03/03/2025 1:21 PM [facility] Calcium 9.2 8.5 - 10.5 mg/dL LAB CHEMISTRY METHOD 03/03/2025 1:21 PM [facility] AST (SGOT) 13 10 - 42 unit/L LAB CHEMISTRY METHOD 03/03/2025 1:21 PM [facility] ALT (SGPT) 17 10 - 60 unit/L LAB CHEMISTRY METHOD 03/03/2025 1:21 PM [facility] Alkaline Phosphatase 72 42 - 121 unit/L LAB CHEMISTRY METHOD 03/03/2025 1:21 PM [facility] Total Protein 5.9(L) 6.0 - 8.0 g/dL LAB CHEMISTRY METHOD 03/03/2025 1:21 PM EDT [facility] Albumin 3.1(L) 3.2 - 5.0 g/dL LAB CHEMISTRY METHOD 03/03/2025 1:21 PM EDT [facility] Total Bilirubin 1.0 0.0 - 1.4 mg/dL LAB CHEMISTRY METHOD 03/03/2025 1:21 PM EDT [facility] Blood Venous blood specimen / Unknown Venipuncture / Unknown 03/03/2025 7:00 AM EDT 03/03/2025 10:39 AM EDT us Nancy Gore LAB BLOOD ORDERABLES Final Resu lt [facility] [address] [place] [address], [place] [phone] documented in this encounter Visit Diagnoses Diagnosis Other integration architect (current) drug therapy documented in this encounter Care Teams Homebound Teacher Relationship Specialty Start Date End Date Tiesha Mayo NP [address] [place], [place] PCP - General Internal Medicine 05/17/22 documented as of this encounter
--- OUTSIDE RECORDS SUMMARY | 2025-06-25 22:37 | XMS_ITS | Patient Health Record ---
Author Organization [facility] Address [address] [place] [address] Care Team Providers Care Author'S Agent Name Role Phone Humaira Delgado Primary Care Provider [phone] Terri West Unavailable [phone] [facility], Nursing Unavailable [phone] [facility], Provider Unavailable Unavailable Allergies No Known Allergies Results Component Value Reference Range Notes Blood Sugar/finger stick Reviewed date:01/15/2025 09:55:24 AM Interpretation:High 157 Performing Lab: Notes/Report: High 157 COMPREHENSIVE METABOLIC PANE L Reviewed date:07/16/2024 08:08:48 AM Interpretation:Normal Performing Lab: Notes/Report: Sodium 141 133-145 mmol/L Potassium 4.1 3.5-5.5 mmol/L Chloride 105 96-110 mmol/L CO2 27 21-32 mmol/L Anion Gap 9 3-11 Glucose 83 70-100 mg/dL BUN 10 5-25 mg/dL Creatinine 0.94 0.70-1.30 mg/dL eGFR 100 >=60 mL/min/1.73m2 Calculati on based on the?Chronic Kidney Disease Epidemiology Collaboration (CKD-EPI) equation refit?without adjustment for race. BUN/Creatinine Ratio 10.6 Calcium 9.8 8.5-10.5 mg/dL AST (SGOT) 11 10-42 unit/L ALT (SGPT) 16 10-60 unit/L Alkaline Phosphatase 81 42-121 unit/L Total Protein 6.5 6.0-8.0 g/dL Albumin 3.5 3.2-5.0 g/dL Total Bilirubin 1.5 0.0-1.4 mg/dL COMPLETE BLOOD COUNT Reviewed date:07/16/2024 08:09:30 AM Interpretation:Abnormal Performing Lab: Notes/Report: WBC 8.7 4.8-10.8 K/mcL RBC 5.90 4.50-5.50 M/mcL Hemoglobin 16.4 13.5-17.5 g/dL Hematocrit 50.7 42.0-54.0 % MCV 86.1 79.0-98.0 FL MCH 27.8 27.0-32.0 pcg MCHC 32.3 32.0-37.0 g/dL RDW 14.2 11.0-15.0 % Platelets 220 130-400 K/mcL MPV 12.3 7.0-11.0 FL NRBC 0.0 <1.0 % NRBC Absolute 0.00 <0.10 K/mcL LIPID PANEL WITH REFLEX TO D IRECT LDL Reviewed date:07/16/2024 08:08:32 AM Interpretation:Abnormal Performing Lab: Notes/Report: Cholesterol 236 0-200 mg/dL Triglycerides 149 0-150 mg/dL HDL 43 >=40 mg/dL LDL Calculated 163 0-100 mg/dL VLDL Cholesterol [place] 29.8 Non HDL Chol. (LDL+VLDL) 193 <145 mg/dL Chol/HDL Ratio 5.5 0.0-4.4 THYROID STIMULATING HORMONE WITH REFLEX TO FREE T4 AND FREE T3 Reviewed date:07/16/2024 08:08:55 AM Interpretation:Normal Performing Lab: Notes/Report: TSH 2.73 0.40-4.00 mcIU/mL HEMOGLOBIN A1C Reviewed date:07/16/2024 08:08:21 AM Interpretation:Normal Performing Lab: Notes/Report: Hemoglobin A1C 4.4 <6.5 % Mean Bld Glu Estim. 80 MAGNESIUM Reviewed date:07/16/2024 08:09:17 AM Interpretation:Normal Performing Lab: Notes/Report: Magnesium 2.1 1.9-2.6 mg/dL VITAMIN D 25 HYDROXY Reviewed date:07/16/2024 08:09:03 AM Interpretation:Normal Performing Lab: Notes/Report: Vit D, 25-Hydroxy 51.7 30.0-80.0 ng/mL PHOSPHORUS Reviewed date:07/16/2024 08:09:11 AM Interpretation:Normal Performing Lab: Notes/Report: Phosphorus 3.6 2.5-4.5 mg/dL VITAMIN B6 Reviewed date:07/28/2024 09:25:08 AM Interpretation:Low Performing Lab: Notes/Report: Vitamin B6 (Pyridoxine) Level <2 5-50 ug/L This test was developed and the performance characteristics determined by [facility]. It has not been cleared or approved by the FDA. The laboratory is regulated under CLIA as qualified to perform high-complexity testing. This test is used for patient testing purposes. It should not be regarded as investigational or for research. Test performed at [facility], [address] [place] [address] Josie Jj MD, PhD - American History Teacher VITAMIN B12 AND FOLATE Reviewed date:07/16/2024 08:08:40 AM Interpretation:Normal Performing Lab: Notes/Report: Vitamin B-12 467 250-900 pcg/mL Folate 6.4 2.8-17.0 ng/ml VITAMIN B1 Reviewed date:07/21/2024 12:49:00 PM Interpretation:Low Performing Lab: Notes/Report: Vitamin B1 Whole Blood 37 38-122 ug/L This test was developed and the performance characteristics determined by [facility]. It has not been cleared or approved by the FDA. The laboratory is regulated under CLIA as qualified to perform high-complexity testing. This test is used for patient testing purposes. It should not be regarded as investigational or for research. Test performed at [facility], [address] [place] [address] Josie Jj MD, PhD - American History Teacher [facility] Reviewed date:01/16/2025 03:31:01 PM Interpretation:Abnormal Performing Lab: Notes/Report: Sodium 140 133-145 mmol/L Potassium 3.7 3.5-5.5 mmol/L Chloride 107 96-110 mmol/L CO2 22 21-32 mmol/L Anion Gap 11 3-11 Glucose 174 70-100 mg/dL BUN 14 5-25 mg/dL Creatinine 1.38 0.70-1.30 mg/dL eGFR 63 >=60 mL/min/1.73m2 Calculati on based on the Chronic Kidney Disease Epidemiology Collaboration (CKD-EPI) equation refit without adjustment for race. BUN/Creatinine Ratio 10.1 Calcium 9.3 8.5-10.5 mg/dL AST (SGOT) 17 10-42 unit/L ALT (SGPT) 15 10-60 unit/L Alkaline Phosphatase 107 42-121 unit/L Total Protein 6.9 6.0-8.0 g/dL Albumin 3.6 3.2-5.0 g/dL Total Bilirubin 1.2 0.0-1.4 mg/dL COMPLETE BLOOD COUNT Reviewed date:01/16/2025 03:31:42 PM Interpretation:Abnormal Performing Lab: Notes/Report: WBC 11.8 4.8-10.8 K/mcL RBC 5.70 4.50-5.50 M/mcL Hemoglobin 16.2 13.5-17.5 g/dL Hematocrit 48.8 42.0-54.0 % MCV 85.8 79.0-98.0 FL MCH 28.5 27.0-32.0 pcg MCHC 33.2 32.0-37.0 g/dL RDW 14.6 11.0-15.0 % Platelets 301 130-400 K/mcL MPV 11.9 7.0-11.0 FL NRBC 0.0 <1.0 % NRBC Absolute 0.00 <0.10 K/mcL LIPID PANEL WITH REFLEX TO D IRECT LDL Reviewed date:01/16/2025 03:30:10 PM Interpretation:High Performing Lab: Notes/Report: Cholesterol 228 0-200 mg/dL Triglycerides 149 0-150 mg/dL HDL 50 >=40 mg/dL LDL Calculated 148 0-100 mg/dL VLDL Cholesterol [place] 29.8 Non HDL Chol. (LDL+VLDL) 178 <145 mg/dL Chol/HDL Ratio 4.6 0.0-4.4 THYROID STIMULATING HORMONE WITH REFLEX TO FREE T4 AND FREE T3 Reviewed date:01/16/2025 03:29:26 PM Interpretation:Normal Performing Lab: Notes/Report: TSH 3.32 0.40-4.00 mcIU/mL FERRITIN Reviewed date:01/16/2025 03:30:33 PM Interpretation:High Performing Lab: Notes/Report: Ferritin 447 26-388 ng/mL HEMOGLOBIN A1C Reviewed date:01/16/2025 03:29:17 PM Interpretation:Normal Performing Lab: Notes/Report: Hemoglobin A1C 4.9 <6.5 % Mean Bld Glu Estim. 94 MAGNESIUM Reviewed date:01/16/2025 03:31:26 PM Interpretation:Normal Performing Lab: Notes/Report: Magnesium 2.0 1.9-2.6 mg/dL VITAMIN D 25 HYDROXY Reviewed date:01/16/2025 03:29:54 PM Interpretation:High Performing Lab: Notes/Report: Vit D, 25-Hydroxy 45.4 30.0-80.0 ng/mL TESTOSTERONE, TOTAL Reviewed date:01/16/2025 03:29:46 PM Interpretation:Low Performing Lab: Notes/Report: Testosterone 133 229-902 ng/dL PHOSPHORUS Reviewed date:01/16/2025 03:31:17 PM Interpretation:Normal Performing Lab: Notes/Report: Phosphorus 3.2 2.5-4.5 mg/dL VITAMIN B12 AND FOLATE Reviewed date:01/16/2025 03:30:19 PM Interpretation:Normal Performing Lab: Notes/Report: Vitamin B-12 544 250-900 pcg/mL Folate 9.6 2.8-17.0 ng/ml VITAMIN B1 Reviewed date:01/22/2025 10:47:44 AM Interpretation:Normal Performing Lab: Notes/Report: Vitamin B1 Whole Blood 68 38-122 ug/L This test was developed and the performance characteristics determined by [facility]. It has not been cleared or approved by the FDA. The laboratory is regulated under CLIA as qualified to perform high-complexity testing. This test is used for patient testing purposes. It should not be regarded as investigational or for research. Test performed at [facility], [address] [place] [address] Josie Jj MD, PhD - American History Teacher ZINC Reviewed date:01/19/2025 11:01:55 AM Interpretation:Normal Performing Lab: Notes/Report: Zinc 82 60-130 ug/dL Elevated results may be due to sample collected in a non-certified trace element-free tube. This test was developed and the performance characteristics determined by [facility]. It has not been cleared or approved by the FDA. The laboratory is regulated under CLIA as qualified to perform high-complexity testing. This test is used for patient testing purposes. It should not be regarded as investigational or for research. Test performed at [facility], [address] [place] [address] Josie Jj MD, PhD - American History Teacher COPPER, SERUM Reviewed date:01/22/2025 10:47:51 AM Interpretation:Normal Performing Lab: Notes/Report: Copper 7113 154-7013 ug/L Elevated results may be due to sample collected in a non-certified trace element-free tube. This test was developed and the performance characteristics determined by [facility]. It has not been cleared or approved by the FDA. The laboratory is regulated under CLIA as qualified to perform high-complexity testing. This test is used for patient testing purposes. It should not be regarded as investigational or for research. Test performed at [facility], [address], [place] [address] Josie Jj MD, PhD - American History Teacher COMPREHENSIVE METABOLIC PANE L Reviewed date:06/24/2025 06:56:03 PM Interpretation:Abnormal Performing Lab: Notes/Report: Sodium 139 133-145 mmol/L Potassium 4.2 3.5-5.5 mmol/L Chloride 107 96-110 mmol/L CO2 29 21-32 mmol/L Anion Gap 3 3-11 Glucose 71 70-100 mg/dL BUN 13 5-25 mg/dL Creatinine 1.37 0.70-1.30 mg/dL eGFR 63 >=60 mL/min/1.73m2 Calculati on based on the Chronic Kidney Disease Epidemiology Collaboration (CKD-EPI) equation refit without adjustment for race. BUN/Creatinine Ratio 9.5 Calcium 9.1 8.5-10.5 mg/dL AST (SGOT) 19 10-42 unit/L ALT (SGPT) 40 10-60 unit/L Alkaline Phosphatase 69 42-121 unit/L Total Protein 6.1 6.0-8.0 g/dL Albumin 3.4 3.2-5.0 g/dL Total Bilirubin 0.7 0.0-1.4 mg/dL COMPLETE BLOOD COUNT Reviewed date:06/24/2025 06:56:18 PM Interpretation: Performing Lab: Notes/Report: WBC 8.5 4.8-10.8 K/mcL RBC 5.40 4.50-5.50 M/mcL Hemoglobin 15.4 13.5-17.5 g/dL Hematocrit 48.8 42.0-54.0 % MCV 90.4 79.0-98.0 FL MCH 28.5 27.0-32.0 pcg MCHC 31.6 32.0-37.0 g/dL RDW 13.5 11.0-15.0 % Platelets 209 130-400 K/mcL MPV 11.7 7.0-11.0 FL NRBC 0.0 <1.0 % NRBC Absolute 0.00 <0.10 K/mcL THYROID STIMULATING HORMONE WITH REFLEX TO FREE T4 AND FREE T3 Reviewed date:06/25/2025 10:29:38 AM Interpretation:High Performing Lab: Notes/Report: TSH 4.62 0.40-4.00 mcIU/mL HEMOGLOBIN A1C Reviewed date:06/25/2025 10:29:23 AM Interpretation:Normal Performing Lab: Notes/Report: Hemoglobin A1C 4.9 <6.5 % Mean Bld Glu Estim. 94 MAGNESIUM Reviewed date:06/24/2025 06:56:39 PM Interpretation:Normal Performing Lab: Notes/Report: Magnesium 2.2 1.9-2.6 mg/dL VITAMIN D 25 HYDROXY Reviewed date:06/24/2025 06:52:57 PM Interpretation:Normal Performing Lab: Notes/Report: Vit D, 25-Hydroxy 40.3 30.0-80.0 ng/mL LITHIUM LEVEL Reviewed date:06/24/2025 06:53:27 PM Interpretation:Low Performing Lab: Notes/Report: [place] Level 0.4 0.6-1.2 mEq/L TESTOSTERONE, TOTAL Reviewed date:06/24/2025 06:53:17 PM Interpretation:Normal Performing Lab: Notes/Report: Testosterone 446 229-902 ng/dL PROSTATE SPECIFIC ANTIGEN SC REEN Reviewed date:06/24/2025 06:52:45 PM Interpretation:Normal Performing Lab: Notes/Report: The Siemens Advia Centaur Chemiluminescent Immunoassay is used. Results obtained with different assay methods or kits cannot be used interchangeably. Results cannot be interpreted as absolute evidence of the presence or absence of malignant disease. PSA 0.89 0.00-4.00 ng/mL PHOSPHORUS Reviewed date:06/24/2025 06:56:26 PM Interpretation:Normal Performing Lab: Notes/Report: Phosphorus 3.5 2.5-4.5 mg/dL FREE THYROXINE WITH REFLEX T O FREE TRIIODOTHYRONINE Reviewed date:06/25/2025 10:29:30 AM Interpretation:Normal Performing Lab: Notes/Report: Free T4 1.00 0.70-1.80 ng/dL TRIIODOTHYRONINE FREE Reviewed date:06/25/2025 10:28:35 AM Interpretation:Normal Performing Lab: Notes/Report: T3, Free 322 230-420 pcg/dL FOLLICLE STIMULATING HORMONE Reviewed date:06/24/2025 06:53:52 PM Interpretation:Normal Performing Lab: Notes/Report: Follicle Stimulating Hormone 5.9 0.7-10.8 mIU /mL LUTEINIZING HORMONE Reviewed date:06/24/2025 06:53:43 PM Interpretation:Normal Performing Lab: Notes/Report: Luteinizing Hormone 6.1 1.2-10.6 mIU/mL PROLACTIN Reviewed date:06/24/2025 06:53:35 PM Interpretation:Normal Performing Lab: Notes/Report: Prolactin 8.00 2.50-17.40 ng/mL Reason For Referral Reason [facility], [address] [place] [id number] P: [phone] F: [phone] needs daily nursing visits for med management Diagnosis 1 Patient's noncomplia nce with other medical treatment and regimen for other reason (Z91.198) Referral Organization [facility] Referring Provider First Name Humaira Referring Provider Last Name Danny Referring Provider Speciality Nurse Martha omer Referred Provider Zeenat - DO NOT U SE, [facility] Notes Karen Parker 06/2025 09:19:04 AM > Faxed to [facility] Referral Priority Routine Reason [facility], [address] [place] [address] P: [phone] F: [phone] Dispense #90 cans of boost to drink 1 can 3x/day Diagnosis 1 Adult failure to thr connie (R62.7) Referral Organization [facility] Referring Provider First Name Humaira Referring Provider Last Name Danny Referring Provider Speciality Nurse Martha omer Referred Provider [facility] General Notes Karen Parker 05/2025 03:52:07 PM > Faxed to [facility] Referral Priority Routine Reason PT-1 for [facility]; 4 months; x7 days a week. Referral Organization [facility] Referring Provider First Name Humaira Referring Provider Last Name Danny Referring Provider Speciality Nurse Martha omer Referred Provider PT, -1 Referral Priority Routine Medications Medication SIG (Take, Route, Frequency, Duration) Notes Start Date End Date Status Aspirin EC 81 MG 1 TAB(S) ORALLY ONCE A DAY for 90 DAYS pls deliver *Please review and pick correct strength-formula tion from [employer] options. If intended option is not shown, discontinue and re-order from Quick Search* Active CeleXA 40 MG 1 tab(s) orally once a day total 40mg 03/29/2021 Not-Taking Atorvastatin Calcium 20 MG 1 tab(s) orally once a day for 90 days pls deliver Active ACETAMINOPHEN EXTRA STRENGTH GELCAPS 500 MG 2 TAB(S) ORALLY EVERY 8 HOURS for 90 DAYS *Please review for potential replacement for e-prescription and drug interaction check* Not-Taking Desvenlafaxine Succinate ER ( SUCCINATE) 100 MG 1 TAB(S) ORALLY ONCE A DAY *Please review and pick correct strength-formula tion from [employer] options. If intended option is not shown, discontinue and re-order from Quick Search* Not-Taking OLANZapine 15 MG 1 tab(s) orally once a day Not-Taking [place] Carbonate 300 MG 1 capsule BID Orally twice a day Active Thiamine HCl 100 MG 1 tab(s) orally once a day for 90 days pls deliver 07/27/2024 Not-Taking Ativan 2 MG Twice daily Orally twice a day Active Pyridoxine HCl 50 MG 1 tab(s) orally once a day for 90 days Not-Taking hydrOXYzine Pamoate 50 MG 2 cap(s) orally every 4 hours 03/29/2021 Not-Taking lamoTRIgine 100 MG 1 tab(s) orally daily Not-Taking Latuda 60 MG 2 tabs orally once a day Not-Taking Voltaren 1 % 1 drop(s) applied topically 4 times a day as needed for left leg pain for 30 days Not-Taking Cyanocobalamin 100 MCG 1/2 tab orally once a day Not-Taking Vitamin D3 10 MCG 1 TAB(S) ORALLY ONCE A DAY *Please review and pick correct strength-formula tion from [employer] options. If intended option is not shown, discontinue and re-order from Quick Search* Not-Taking Pantoprazole Sodium 40 MG 1 tab(s) orally once a day for 90 days Not-Taking Cyanocobalamin 1000 MCG/ML as directed intramuscularly once a month Not-Taking Ferrous Sulfate 324 MG TAKE 2 TABLETS (648MG) BY MOUTH DAILY for 90 DAYS *Please review and pick correct strength-formula tion from [employer] options. If intended option is not shown, discontinue and re-order from Quick Search* Not-Taking Immunizations Vaccine Route Administration Date Status Comme nts Hepatitis A IM Intramuscular 08/31/2020 Administered Moderna Covid-19 Vaccine Administration - First Dose (Single Dose 100MCG/0.5ML 1ST) IM Intramuscular 09/14/2020 Administered Administered by [facility] Dose #1 Moderna Covid-19 Vaccine Administration - Second Dose (Single Dose 100 MCG/0.5ML 2ND) Unknown 03/29/2021 Administered Hepatitis A IM Intramuscular 04/18/2021 Administered Influenza IM Intramuscular 04/24/2022 Administered Moderna Covid-19 Booster Administration - Third Dose (Single Dose 50 mcg/0.25 mL IM Intramuscular 06/13/2021 Administered Moderna Covid-19 Vaccine Administration - Second Dose (Single Dose 100 MCG/0.5ML 2ND) Unknown 10/20/2021 Administered Moderna Covid-19 Booster Administration - Third Dose (Single Dose 50 mcg/0.25 mL Unknown 06/28/2022 Administered Influenza IM Intramuscular 05/16/2023 Administered hepatitis B Unknown 01/31/2018 Administered Tdap Unknown 01/31/2018 Administered Moderna Covid-19 Vaccine Administration - First Dose (Single Dose 100MCG/0.5ML 1ST) IM Intramuscular 09/14/2020 Pending Administered by [facility]. Dose #1 Social History Tobacco Use: Social History Observation Description Date Details (start date - stop date) Former Smoker NA - NA Tobacco Use Assessment MU Question Answer Notes What is your current smoking status? former smok er How long has it been since you last smoked? > 10 years Problems Problem Type SNOMED Code ICD Code Onset Dates Problem Status W/U Status Risk Notes Problem Testicular hypofunction (442193314) Testicular hypofunction (E29.1) Active confirmed Problem Vitamin B deficiency (39629709) Vitamin B deficiency, unspecified (E53.9) Active confirmed Problem Morbid obesity (disorder) (291731288) Morbid (severe) obesity due to excess calories (E66.01) Active confirmed Problem Hyperlipidemia (91398430) Hyperlipidemia, unspecified (E78.5) Active confirmed On a Statin Problem Severe recurrent major depression with psychotic features (50836096) Major depressive disorder, recurrent, severe with psychotic symptoms (F33.3) Active confirmed Suicidal Ideation Followed by [facility] Problem Anxiety disorder (863980334) Anxiety disorder, unspecified (F41.9) Active confirmed Followed by [facility] Problem Insomnia (208680818) Insomnia, unspecified (G47.00) Active confirmed Followed by [facility] Problem Obstructive sleep apnea syndrome (disorder) (42906533) Obstructive sleep apnea (adult) (pediatric) (G47.33) Active confirmed reports unable to tolerate CPAP Problem Intermittent claudication of bilateral lower limbs co-occurrent and due to atherosclerosis (3857758391035288 8) Atherosclerosis of telida arteries of extremities with intermittent claudication, bilateral legs (I70.213) Active confirmed 10/04/22- seen by [facility] Problem Peripheral vascular disease (502558368) Peripheral vascular disease, unspecified (I73.9) Active confirmed 10/04/22- seen by [facility] Problem Osteoarthritis of knee (285125387) Unilateral primary osteoarthritis, left knee (M17.12) Active confirmed Problem Adult failure to thrive syndrome (758583301) Adult failure to thrive (R62.7) Active confirmed Problem History of cerebrovascular accident without residual deficits (321351409) Personal history of transient ischemic attack (TIA), and cerebral infarction without residual deficits (Z86.73) Active confirmed Problem History of bariatric surgical procedure (388150789) Bariatric surgery status (Z98.84) Active confirmed Problem Body mass index 30.00 to 34.99 (236404089246959) Body mass index [BMI] 32.0-32.9, adult (Z68.32) Active confirmed Problem Sheltered homelessness (538545222492407) Sheltered homelessness (Z59.01) Active confirmed Problem Essential hypertension (89693059) Essential (primary) hypertension (I10) Active confirmed Problem Leukocytosis (107030900) Elevated white blood cell count, unspecified (D72.829) Inactive confirmed Problem Localized edema (1061690) Localized edema (R60.0) Inactive confirmed Problem Prediabetes (843892753) Prediabetes (R73.03) 022 Inactive confirmed A1c 6.2% repeat : 08/01/22 Problem Body mass index 30.00 to 34.99 (723347740271561) Body mass index [BMI] 33.0-33.9, adult (Z68.33) Inactive confirmed Problem Body mass index 35.00 to 39.99 (484293031979116) Body mass index [BMI] 38.0-38.9, adult (Z68.38) Inactive confirmed Problem Body mass index 40+ - severely obese (548927796) Body mass index [BMI]40.0-44.9, adult (Z68.41) Inactive confirmed Problem History of novel psychoactive substance misuse (situation) (197609896) Other psychoactive substance abuse, 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 Cocaine-IN H, oral Opiated, MJ- abstinent 12/07/20 Problem Hyperglycemia due to type 2 diabetes mellitus (833692240454848) Type 2 diabetes mellitus with hyperglycemia (E11.65) Problem resolved confirmed Problem Type 2 diabetes mellitus with other specified complication (E11.69) Problem resolved confirmed Problem Lymphedema (054093638) Lymphedema, not elsewhere classified (I89.0) Problem resolved confirmed 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) Problem resolved confirmed Problem Open wound of right lower leg (disorder) (5016224035800776 1) Unspecified open wound, right lower leg, initial encounter (S81.801A) Problem resolved confirmed Vital Signs Temperature 97.2 degrees Fahrenheit 06/24/2025 Blood pressure diastolic 75 06/24/2025 Oximetry 100 06/24/2025 Height 69 in 06/24/2025 Blood pressure systolic 115 06/24/2025 Weight 223.4 lbs 01/19/2025 BMI 32.99 kg/m2 01/19/2025 Encounters Encounter Location Date Provider Diagnosis [address] [address] 04/24/2025 Provider Migration [address] [address] 05/05/2025 Eddieliza Casionan Encounter for screening for COVID-19 Z11.[address] [address] 07/15/2024 Eddieliza Casionan Encounter for screening for COVID-19 Z11.52 ; Encounter for general adult medical examination with abnormal findings Z00.01 ; Hyperlipidemia, unspecified E78.5 ; Type 2 diabetes mellitus with hyperglycemia E11.65 ; Unilateral primary osteoarthritis, left knee M17.12 ; Anxiety disorder, unspecified F41.9 ; Body mass index [BMI]40.0-44.9, adult Z68.41 ; Adult failure to thrive R62.7 ; Major depressive disorder, recurrent, severe with psychotic symptoms F33.3 and Unspecified open wound, right lower leg, initial encounter S81.801A [address] [address] 09/10/2024 Eddieliza Casionan Encounter for screening for COVID-19 Z11.52 ; Vitamin B deficiency, unspecified E53.9 ; Hyperlipidemia, unspecified E78.5 ; Sheltered homelessness Z59.01 ; Personal history of transient ischemic attack (TIA), and cerebral infarction without residual deficits Z86.73 ; Atherosclerosis of telida arteries of extremities with intermittent claudication, bilateral legs I70.213 ; Bariatric surgery status Z98.84 ; Body mass index [BMI] 38.0-38.9, adult Z68.38 and Essential (primary) hypertension I10 [address] [address] 09/14/2024 Nursing [facility] Essential (primary) hypertension I10 [address] [address] 01/15/2025 Nursing [facility] Hyperlipidemia, unspecified E78.5 ; Deficiency of other specified B group vitamins E53.8 ; Adult failure to thrive R62.7 and Essential (primary) hypertension [address] 01/19/2025 Eddieliza Casionan Encounter for screening for COVID-19 Z11.52 ; Adult failure to thrive R62.7 ; Patient's noncompliance with other medical treatment and regimen for other reason Z91.198 ; Unspecified fall, initial encounter W19.XXXA ; Vitamin B deficiency, unspecified E53.9 ; Testicular hypofunction E29.1 ; Hyperlipidemia, unspecified E78.5 ; Major depressive disorder, recurrent, severe with psychotic symptoms F33.3 and Body mass index [BMI] 32.0-32.9, adult Z68.[address] [address] 01/19/2025 Nursing [facility] Encounter for screening, unspecified Z13.[address] [address] 06/24/2025 Nursing [facility] Testicular hypofunction E29.1 ; Adult failure to thrive R62.7 ; Morbid (severe) obesity due to excess calories E66.01 and Major depressive disorder, recurrent, severe with psychotic symptoms F33.[address] [address] 07/16/2024 Eddieliza Casionan [address] [address] [address] 07/23/2024 Eddieliza Casionan [address] [address] 07/27/2024 Eddieliza Casionan Hyperlipidemia, unspecified E78.5 and Personal history of transient ischemic attack (TIA), and cerebral infarction without residual deficits Z86.[address] [address] 09/11/20[facility] [address] [place] [id number] 10/22/2024 Eddieliza Casionan [address] [address] 10/29/2024 Eddieliza Casionan [address] [address] 12/10/2024 Eddieliza Casionan [address] [address] 12/31/2024 Eddieliza Casionan [address] [address] 01/12/2025 Eddieliza Casionan [address] [address] 01/12/2025 Eddieliza Casionan [address] [address] 01/15/2025 Eddieliza Casionan [address] [address] 02/04/2025 Eddieliza Casionan Vitamin B deficiency, unspecified E53.9 ; Hyperlipidemia, unspecified E78.5 and Personal history of transient ischemic attack (TIA), and cerebral infarction without residual deficits Z86.[address] [address] 02/08/2025 Eddieliza Casionan [address] [address] 02/08/2025 Eddieliza Casionan [address] [address] 02/23/2025 Eddieliza Casionan [address] [address] 02/23/2025 Eddieliza Casionan [address] [address] 03/02/2025 Terri West [address] [address] 03/02/2025 Eddieliza Casionan [address] [address] 03/04/2025 Eddieliza Casionan [address] [address] 03/25/2025 Eddieliza Casionan [address] [address] 04/15/2025 Eddieliza Casionan [address] [address] 05/26/2025 Eddieliza Casionan [address] [address] 06/16/2025 Eddieliza Casionan Hyperlipidemia, unspecified E78.5 ; Morbid (severe) obesity due to excess calories E66.01 and Adult failure to thrive R62.[address] [address] 06/16/2025 Eddieliza Casionan [address] [address] 06/18/2025 Claudinemaia Delgado Major depressive disorder, recurrent, severe with psychotic symptoms F33.3 [facility] [address] [place] [address] 06/24/2025 Humaira Delgado Assessments Encounter Date Diagnosis (ICD Code) Assessment [...] you are having concerning symptoms for COVID-19. 07/15/2024 Encounter for general adult medical examination with abnormal findings (ICD-10 - Z00.01) 07/15/2024 Encounter for screening for COVID-19 (ICD-10 - [...] you are having concerning symptoms for COVID-19. 09/10/2024 Vitamin B deficiency, unspecified (ICD-10 - E53.9) I sent B1 and B6 supplements last month. Encouraged for him to take them 09/10/2024 Encounter for screening for COVID-19 (ICD-10 - [...] you are having concerning symptoms for COVID-19. 09/14/2024 Essential (primary) hypertension (ICD-10 - I10) BP assessed, reading elevated, pt denies headache, chest pain/pressure, sob and or dizziness. Information sent to Humaira Delgado in a TE. Pt agrees to rtc in 1 week for another BP check. 01/15/2025 Deficiency of other specified B group vitamins (ICD-10 - E53.8) 01/15/2025 Hyperlipidemia, unspecified (ICD-10 - E78.5) On a Statin 01/19/2025 Adult failure to thrive (ICD-10 - R62.7) In the setting persisting severe depression resulting to likely poor food intake sent a script for boost drink 01/19/2025 Encounter for screening for COVID-19 (ICD-10 - Z11.52) Covid screening is negative. Discussed in detail with patient how to practice social distancing by avoiding public spaces and crowds now, wearing a mask in public to keep nose and mouth covered, and washing hands frequently especially before eating and after using the bathroom. Return to clinic if you develop any symptoms of concern to be rescreened or go to the emergency room if you are having concerning symptoms for COVID-19. 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 Pt reports pain to the right back of his head - to open areas noted. Gianna HAND MOLD MAKER notified and came to assist pt to sitting position. PT able to follow commands and get up into a chair. Pt denies dizzness reports he legs got weak and he fell. Pt reports eating a bag of chips today. 911 called - ambulance arrived - pt taken to [facility]. Vitals obtained see vital section for details. 06/24/2025 Testicular hypofunction (ICD-10 - E29.1) 07/27/2024 Hyperlipidemia, unspecified (ICD-10 - E78.5) 02/04/2025 Vitamin B deficiency, unspecified (ICD-10 - E53.9) 06/16/2025 Hyperlipidemia, unspecified (ICD-10 - E78.5) On a Statin 06/18/2025 Major depressive disorder, recurrent, severe with psychotic symptoms (ICD-10 - F33.3) Suicidal Ideation Followed by CEMETERY KEEPER 07/15/2024 Hyperlipidemia, unspecified (ICD-10 - E78.5) will check lipid profile 09/10/2024 Hyperlipidemia, unspecified (ICD-10 - E78.5) On a Statin He agrees to restart taking statin 01/15/2025 Adult failure to thrive (ICD-10 - R62.7) 01/19/2025 Patient's noncompliance with other medical treatment and regimen for other reason (ICD-10 - Z91.198) He agrees to establish with visiting nurses for daily visitations for med management. He declines at this time [employer] services for ADLs 06/24/2025 Adult failure to thrive (ICD-10 - R62.7) 07/27/2024 Personal history of transient ischemic attack (TIA), and cerebral infarction without residual deficits (ICD-10 - Z86.73) 02/04/2025 Hyperlipidemia, unspecified (ICD-10 - E78.5) 06/16/2025 Morbid (severe) obesity due to excess calories (ICD-10 - E66.01) 07/15/2024 Type 2 diabetes mellitus with hyperglycemia (ICD-10 - E11.65) will check A1C 09/10/2024 Sheltered homelessness (ICD-10 - Z59.01) He is housed at [facility] 01/15/2025 Essential (primary) hypertension (ICD-10 - I10) Diastolic BP elevated on both readings, provider notified by RN. Humaira Delgado HAND MOLD MAKER ordered pt to have 1 dose of 5mg of Amlodipine from clinic stock. Med adminstered to pt and taken in front of RN. Provider sent in rx for daily amlodipine to [place] [facility], CEMETERY KEEPER nurse notified and given two doses for weekend for med minder from clinic stock. Pt agrees to meet with CEMETERY KEEPER nursing daily at dinner time. Asked pt to RTC on Saturday for repeat BP check, CEMETERY KEEPER aware. 01/19/2025 Unspecified fall, initial encounter (ICD-10 - W19.XXXA) He shows no neuro deficit. He is able to move all extremities with no pain. We are sending him to the ED for evaluation after he hit his head during the fall 06/24/2025 Morbid (severe) obesity due to excess calories (ICD-10 - E66.01) 02/04/2025 Personal history of transient ischemic attack (TIA), and cerebral infarction without residual deficits (ICD-10 - Z86.73) 06/16/2025 Adult failure to thrive (ICD-10 - R62.7) 07/15/2024 Unilateral primary osteoarthritis, left knee (ICD-10 - M17.12) Denies active pain 09/10/2024 Personal history of transient ischemic attack (TIA), and cerebral infarction without residual deficits (ICD-10 - Z86.73) He agrees to restart hs ASA and statin 01/19/2025 Vitamin B deficiency, unspecified (ICD-10 - E53.9) His Vitamin B6 and B1 were very low. We will restart supplements 06/24/2025 Major depressive disorder, recurrent, severe with psychotic symptoms (ICD-10 - F33.3) 07/15/2024 Anxiety disorder, unspecified (ICD-10 - F41.9) Followed by CEMETERY KEEPER engaged with [facility] provider 09/10/2024 Atherosclerosis of telida arteries of extremities with intermittent claudication, bilateral legs (ICD-10 - I70.213) 10/04/22- seen by [facility] He agrees to restart ASA an statin 01/19/2025 Testicular hypofunction (ICD-10 - E29.1) He agrees to come once a week x 2 to recheck his testosterone 07/15/2024 Body mass index [BMI]40.0-44.9, adult (ICD-10 - Z68.41) Lost close to 130 lbs since bariatric surgery 09/10/2024 Bariatric surgery status (ICD-10 - Z98.84) He lost a lot of weight. His mental health had gone downhill since after surgery. Heis more depressed and not as engaging as when he was prior to the surgery. Bi B1 and B6 will be supplemented. Our staff with reach out to bariatric surgery to check for any f/u. We may have to seek the services of visiting nurses if he continues not to take his medications, hopefully he will allow 01/19/2025 Hyperlipidemia, unspecified (ICD-10 - E78.5) On a Statin Will continue with statin 07/15/2024 Adult failure to thrive (ICD-10 - R62.7) Since bariatric surgery, he had been isolating himself, missing appointments. Today he has thoughts of hurting himself 09/10/2024 Body mass index [BMI] 38.0-38.9, adult (ICD-10 - Z68.38) He continues to lose weight since surgery 01/19/2025 Major depressive disorder, recurrent, severe with psychotic symptoms (ICD-10 - F33.3) Suicidal Ideation Followed by CEMETERY KEEPER He is engaged with mental health provider and counselor with [facility]. He agrees to see a visiting nurse daily 07/15/2024 Major depressive disorder, recurrent, severe with psychotic symptoms (ICD-10 - F33.3) We called crisis and he was taken to respite 09/10/2024 Essential (primary) hypertension (ICD-10 - I10) He agrees to come once a week x 4 to have his BP checked 01/19/2025 Body mass index [BMI] 32.0-32.9, adult (ICD-10 - Z68.32) He had been progressively 07/15/2024 Unspecified open wound, right lower leg, initial encounter (ICD-10 - S81.801A) Left palma area appear dry and healed 06/25/2024 Other 03/22/2025 Other 05/05/2025 Other 07/15/2024 Other Labs drawn per protocol, no difficulties, sent to lab, pt to RTC for f/u. Informed provider that trouble collecting remaining lav tubes, will send what was collected in hopes they can run all ordered labs. 09/10/2024 Other 09/14/2024 Other Reviewed medications, pt concerns he is ONLY taking Latuda 20mg daily. 01/15/2025 Other Labs drawn per protocol, no difficulties, sent to lab, pt to RTC for f/u. 01/19/2025 Other 06/24/2025 Other Diagnostic labs drawn as ordered [...] results requiring immediate action. Plan Of Treatment Pending Test Test Name Order Date Blood Sugar/finger stick 03/25/2024 Blood Sugar/finger stick 05/16/2023 MICROALBUMIN, RANDOM URINE (W/CREATININE ) 03/29/2021 LIPID PANEL 03/29/2021 HEMOGLOBIN A1c 08/10/2020 CBC 01/15/2025 COMPREHENSIVE METABOLIC PANEL 01/15/2025 FERRITIN 01/15/2025 MAGNESIUM 01/15/2025 PHOSPHORUS 01/15/2025 VITAMIN D, 25-HYDROXY 01/15/2025 CBC 10/17/2022 CHLAMYDIA / GC DNA W RFLX 03/29/2021 COPPER, SERUM 01/15/2025 GLYCOHEMOGLOBIN PROFILE 01/15/2025 GLYCOHEMOGLOBIN PROFILE 07/15/2024 GLYCOHEMOGLOBIN PROFILE 10/17/2022 LIPID PROFILE 01/15/2025 TESTOSTERONE 01/15/2025 THYROID PROFILE 01/15/2025 VITAMIN C (ASCORBIC ACID) 06/19/2024 VITAMIN B1 PLASMA 06/19/2024 VITAMIN B6 LEVEL 06/19/2024 ZINC, PLASMA OR SERUM 01/15/2025 CR Hip Uni 2-3 Views LT 05/02/2022 CR Tibia Fibula LT 2 View 07/23/2022 HEPATITIS A,B,C PROFILE 03/29/2021 QUANTIFERON(R)-TB GOLD PLUS, 1 TUBE 04/13 CR Knee LT 1 or 2 View 07/23/2022 BASIC METABOLIC PANEL 01/19/2025 MICROALBUMIN CREATININE URINE RATIO 12/0 11/2023 VITAMIN B6 01/15/2025 VITAMIN B12 AND FOLATE 01/15/2025 VITAMIN B1 01/15/2025 GLYCOHEMOGLOBIN PROFILE 03/30/2021 FOLLICLE STIMULATING HORMONE 06/24/2025 LUTEINIZING HORMONE 06/24/2025 PROLACTIN 06/24/2025 PROSTATIC SPECIFIC ANTIGEN 06/24/2025 TESTOSTERONE 06/24/2025 MAGNESIUM 06/24/2025 VITAMIN D 25 HYDROXY 06/24/2025 CBC 06/24/2025 COMPREHENSIVE METABOLIC PANEL 06/24/2025 GLYCOHEMOGLOBIN PROFILE 06/24/2025 LITHIUM LEVEL 06/24/2025 PHOSPHORUS 06/24/2025 THYROID PROFILE 06/24/2025 VITAMIN B6 06/24/2025 VITAMIN B1 06/24/2025 Future Test Test Name Order Date TESTOSTERONE 01/26/2025 FOLLICLE STIMULATING HORMONE 06/22/2025 LUTEINIZING HORMONE 06/22/2025 PROLACTIN 06/22/2025 TESTOSTERONE 06/22/2025 Next Appt Details Provider Name:Humaira vail, 07/06/2025 03:30:00 PM, [address] [facility], [place], [address], Insurance Providers Payer Name Payer Address Payer Phone Subscriber Number Group Number Insured Name Patient Relationship to Insured Coverage Start Date Coverage End Date [place] C3 [address] [place], [place] [id number] Kamar Cote Self - patient is the insured 1 [place] [employer] [address] [place] [address] [id number] Kamar Cote Self - patient is the insured 0 Medical (General) History Medical History History ICD Code CVA 12/2019 [facility]-cor[facility] memory loss HTN LUIS aspiration PNA resolved s/p 5 days ceftr iaxone morbid obesity Substance use: Opiates-oral, Cocaine-INH , MJ-abstinent since 12/08/2011 Essential (primary) hypertension (resolv ed 08/23/2021) Body mass index [BMI] 45.0-49.9, adult Z 68.42 Body mass index (BMI) 50-59.9 , adult Z6 8.43 Body mass index [BMI] 60.0-69.9, adult Z 68.44 Lymphedema, not elsewhere classified (re solved 09/11/2024) undefined Type 2 diabetes mellitus with hyperglyce behzad (resolved 09/11/2024) Type 2 diabetes mellitus wit h other specified complication (resolved 09/11/2024) Enlarged and hypertrophic nails (resolve d 09/11/2024) Unspecified open wound, righ t lower leg, initial encounter (resolved 09/11/2024) Surgical History Surgery Date(Month/[facility] History Reason Date(Month/Year) Aristeo Whitlock - Bipolar 03/2021 [facility]
--- OUTSIDE RECORDS SUMMARY | 2025-06-25 22:38 | XMS_ITS | Encounter Summary ---
Author Organization [facility] Address [address] [place] [address] Care Team Providers Care Stationary Fireman Name Role Phone Tiesha Mayo NP Primary Care Provider Encounter Details Date Type Department Care Team (Late st Contact Info) Description 01/15/2025 Lab Requisition [facility] - Main Lab [address] [facility] [place] [address] Humaira Delgado NP [address], [place] [id number] Adult failure to thrive; Hyperlipidemia, unspecified; Deficiency of other specified B group vitamins Social History Tobacco Use Types Packs/Day Years [...] TO FREE T4 AND FREE T3 Routine 01/15/2025 9:45 AM EDT Adult failure to thrive Hyperlipidemia, unspecified Deficiency of other specified B group vitamins VITAMIN B12 AND FOLATE Routine 9:45 AM EDT Adult failure to thrive Hyperlipidemia, unspecified Deficiency of other specified B group vitamins SST - GOLD Routine 01/15/2025 9:45 AM EDT Adult failure to thrive Hyperlipidemia, unspecified Deficiency of other specified B group vitamins SST - GOLD Routine 01/15/2025 9:45 AM EDT Adult failure to thrive Hyperlipidemia, unspecified Deficiency of other specified B group vitamins LIPID PANEL WITH REFLEX TO DIRECT LDL Routine 01/15/2025 9:45 AM EDT Adult failure to thrive Hyperlipidemia, unspecified Deficiency of other specified B group vitamins COPPER, SERUM Routine 01/15/2025 9:45 AM EDT Adult failure to thrive Hyperlipidemia, unspecified Deficiency of other specified B group vitamins ZINC Routine 01/15/2025 9:45 AM EDT Adult failure to thrive Hyperlipidemia, unspecified Deficiency of other specified B group vitamins VITAMIN D 25 HYDROXY Routine 01/15/2025 9:45 AM EDT Adult failure to thrive Hyperlipidemia, unspecified Deficiency of other specified B group vitamins COMPLETE BLOOD COUNT Routine 01/15/2025 9:45 AM EDT Adult failure to thrive Hyperlipidemia, unspecified Deficiency of other specified B group vitamins VITAMIN B1 Routine 01/15/2025 9:45 AM EDT Adult failure to thrive Hyperlipidemia, unspecified Deficiency of other specified B group vitamins TESTOSTERONE, TOTAL Routine 01/15/2025 9 :45 AM EDT Adult failure to thrive Hyperlipidemia, unspecified Deficiency of other specified B group vitamins PHOSPHORUS Routine 01/15/2025 9:45 AM EDT Adult failure to thrive Hyperlipidemia, unspecified Deficiency of other specified B group vitamins MAGNESIUM Routine 01/15/2025 9:45 AM EDT Adult failure to thrive Hyperlipidemia, unspecified Deficiency of other specified B group vitamins HEMOGLOBIN A1C Routine 01/15/2025 9:45 AM EDT Adult failure to thrive Hyperlipidemia, unspecified Deficiency of other specified B group vitamins FERRITIN Routine 01/15/2025 9:45 AM EDT Adult failure to thrive Hyperlipidemia, unspecified Deficiency of other specified B group vitamins COMPREHENSIVE METABOLIC PANEL Routine 01/15/2025 9:45 AM EDT Adult failure to thrive Hyperlipidemia, unspecified Deficiency of other specified B group vitamins documented in this encounter Results * SST tube (01/15/2025 9:45 AM EDT) Extra Tube Hold for add-ons. 01/18/2025 9:01 PM EDT [facility] Comment:Auto resulted. Blood Venous blood specimen / Unknown 01/15/2025 9:45 AM EDT 01/15/2025 6:16 PM EDT us Eddieliza Casionan ROD PLACER LAB BLOOD ORDERABLES Final Result Performing Organization Address City/[facility]/ZIP Co de Phone Number [facility] [address] [place] [address], [place] [phone] * SST tube (01/15/2025 9:45 AM EDT) Extra Tube Hold for add-ons. 01/18/2025 9:01 PM EDT [facility] Comment:Auto resulted. Blood Venous blood specimen / Unknown 01/15/2025 9:45 AM EDT 01/15/2025 6:16 PM EDT EddielineoSurgicalionan ROD PLACER LAB BLOOD ORDERABLES Final Result [facility] [address] [place] [address], [place] [phone] * (ABNORMAL) Testosterone, total (01/15/2025 9:45 AM EDT) Testosterone 133(L) 229 - 902 ng/dL LAB CHEMISTRY METHOD 01/15/2025 7:35 PM EDT [facility] Blood Venous blood specimen / Unknown 01/15/2025 9:45 AM EDT 01/15/2025 6:16 PM EDT [facility] BLOOD ORDERABLES Final Result Performing Organization Address City/[facility]/ZIP Co de Phone Number [facility] [address] [place] [address], * Vitamin B1 (01/15/2025 9:45 AM EDT) Vitamin B1 Whole Blood 68 38 - 122 ug/L 01/20/2025 11:[address] [facility] Comment: This test was developed and the performance characteristics determined by [facility]. It has not been cleared or approved by the FDA. The laboratory is regulated under CLIA as qualified to perform high-complexity testing. This test is used for patient testing purposes. It should not be regarded as investigational or for research. Test performed at [facility], [address] , [place] [address] Josie Jj MD, PhD - Charging Board Operator Blood Venous blood specimen / Unknown 01/15/2025 9:45 AM EDT 01/15/2025 6:[address] [facility] ROD PLAC[facility] LAB BLOOD ORDERABLES Final Result Performing Organization Address City/[facility]/ZIP Co de Phone Number [facility] [address] [place] [address] * Vitamin B12 and folate (01/15/2025 9:45 AM EDT) Vitamin B-12 544 250 - 900 pcg/mL LAB CHEMISTRY METHOD 01/15/2025 7:00 PM EDT [facility] Folate 9.6 2.8 - 17.0 ng/ml LAB CHEMISTRY METHOD 01/15/2025 7:00 PM EDT [facility] Blood Venous blood specimen / Unknown 01/15/2025 9:45 AM EDT 01/15/2025 6:16 PM EDT [facility] ROD PLACER LAB BLOOD ORDERABLES Final Result [facility] [address] [place] [address], * Zinc (01/15/2025 9:45 AM EDT) Zinc 82 60 - 130 ug/dL 01/18/2025 10:[address] [facility] Comment: Elevated results may be due to sample collected in a non-certified trace element-free tube. This test was developed and the performance characteristics determined by [facility]. It has not been cleared or approved by the FDA. The laboratory is regulated under CLIA as qualified to perform high-complexity testing. This test is used for patient testing purposes. It should not be regarded as investigational or for research. Test performed at [facility], [address] , [place] [address] Josie Jj MD, PhD - Charging Board Operator Blood Venous blood specimen / Unknown 01/15/2025 9:45 AM EDT 01/15/2025 6:16 PM EDT Claudinemaia Danny ROD PLACER LAB BLOOD ORDERABLES Final Result [facility] [address] [place] [address] * Thyroid stimulating hormone with reflex to free t4 and free t3 (01/15/2025 9:45 AM EDT) TSH 3.32 0.40 - 4.00 mcIU/mL LAB CHEMISTRY METHOD 01/15/2025 7:36 PM EDT [facility] Blood Venous blood specimen / Unknown 01/15/2025 9:45 AM EDT 01/15/2025 6:16 PM EDT us Humaira Delgado ROD PLACER LAB BLOOD ORDERABLES Final Result [facility] [address] [place] [address], [place] [phone] * (ABNORMAL) Lipid panel with reflex to direct LDL (01/15/2025 9:45 AM EDT) Cholesterol 228(H) 0 - 200 mg/dL LAB CHEMISTRY METHOD 01/15/2025 7:00 PM EDT [facility] Triglycerides 149 0 - 150 mg/dL LAB CHEMISTRY METHOD 01/15/2025 7:00 PM EDT [facility] HDL 50 >=40 mg/dL LAB CHEMISTRY METHOD [facility]2025 [facility] LDL Calculated 148(H) 0 - 100 mg/dL LAB CHEMISTRY METHOD 01/15/2025 7:00 PM EDT [facility] VLDL Cholesterol [place] 29.8 mg/dL LAB CHEMISTRY METHOD 01/15/2025 7:00 PM EDT [facility] Non HDL Chol. (LDL+VLDL) 178(H) <145 mg/dL LAB CHEMISTRY METHOD 01/15/2025 7:00 PM [facility] Chol/HDL Ratio 4.6(H) 0.0 - 4.4 LAB CHEMISTRY METHOD 01/15/2025 7:00 PM T [facility] Blood Venous blood specimen / Unknown 01/15/2025 9:45 AM EDT 01/15/2025 6:16 PM EDT Humaira Delgado ROD PLACER LAB BLOOD ORDERABLES Final Result [facility] [address] [place] [address], [place] [phone] * Hemoglobin A1c (01/15/2025 9:45 AM EDT) Hemoglobin A1C 4.9 <6.5 % LAB CHEMISTRY METHOD 01/15/2025 9:31 PM EDT [facility] Mean Bld Glu Estim. 94 mg/dL LAB CHEMISTRY METHOD 01/15/2025 9:31 PM EDT [facility] Blood Venous blood specimen / Unknown 01/15/2025 9:45 AM EDT 01/15/2025 6:16 PM EDT EddiAlwaySupportan ROD PLACER LAB BLOOD ORDERABLES Final Result [facility] [address] [place] [address], [place] [phone] * Copper, serum (01/15/2025 9:45 AM EDT) Copper 1325 665 - 1480 ug/L 01/20/2025 6:[address] [facility] Comment: Elevated results may be due to sample collected in a non-certified trace element-free tube. This test was developed and the performance characteristics determined by [facility]. It has not been cleared or approved by the FDA. The laboratory is regulated under CLIA as qualified to perform high-complexity testing. This test is used for patient testing purposes. It should not be regarded as investigational or for research. Test performed at [facility], [address], [place] [address] Josie Jj MD, PhD - Charging Board Operator Blood Venous blood specimen / Unknown 01/15/2025 9:45 AM EDT 01/15/2025 6:16 PM EDT [employer] LAB BLOOD ORDERABLES Final Result [facility] [address] [place] [address] * Vitamin D 25 hydroxy (01/15/2025 9:45 AM EDT) Vit D, 25-Hydroxy 45.4 30.0 - 80.0 ng/mL LAB CHEMISTRY METHOD 01/15/2025 7:35 PM EDT [facility] Blood Venous blood specimen / Unknown 01/15/2025 9:45 AM EDT 01/15/2025 6:16 PM EDT [facility] LAB BLOOD ORDERABLES Final Result Performing Organization Address [facility]/ZIP Co de Phone Number [facility] [address] [place] [address], [place] [phone] * Phosphorus (01/15/2025 9:45 AM EDT) Phosphorus 3.2 2.5 - 4.5 mg/dL LAB CHEMISTRY METHOD 01/15/2025 6:38 PM EDT [facility] Blood Venous blood specimen / Unknown 01/15/2025 9:45 AM EDT 01/15/2025 6:16 PM EDT [facility] BLOOD ORDERABLES Final Result Performing Organization Address [facility] Co de Phone Number [facility] [address] [place] [address], [place] [phone] * Magnesium (01/15/2025 9:45 AM EDT) Magnesium 2.0 1.9 - 2.6 mg/dL LAB CHEMISTRY METHOD 01/15/2025 6:38 PM EDT [facility] Blood Venous blood specimen / Unknown 01/15/2025 9:45 AM EDT 01/15/2025 6:[address] [facility] LAB BLOOD ORDERABLES Final Result [facility] [address] [place] [address], * (ABNORMAL) Ferritin (01/15/2025 9:45 AM EDT) Pathologist [facility] Ferritin 447(H) 26 - 388 ng/mL LAB CHEMISTRY METHOD 01/15/2025 7:00 PM EDT [facility] Blood Venous blood specimen / Unknown 01/15/2025 9:45 AM EDT 01/15/2025 6:16 PM EDT Humaira Delgado NP LAB BLOOD ORDERABLES Final Result Performing Organization Address [facility] Co de Phone Number [facility] [address] [place] [address], [place] [phone] * (ABNORMAL) Comprehensive metabolic panel (01/15/2025 9:45 AM EDT) [facility] Sodium 140 133 - 145 mmol/L LAB CHEMISTRY METHOD 01/15/2025 6:38 PM [facility] Potassium 3.7 3.5 - 5.5 mmol/L LAB CHEMISTRY METHOD 01/15/2025 6:38 PM [facility] Chloride 107 96 - 110 mmol/L LAB CHEMISTRY METHOD 01/15/2025 6:38 PM [facility] CO2 22 21 - 32 mmol/L LAB CHEMISTRY METHOD 01/15/2025 6:38 PM [facility] Anion Gap 11 3 - 11 LAB CHEMISTRY METHOD 01/15/2025 6:38 PM [facility] Glucose 174(H) 70 - 100 mg/dL LAB CHEMISTRY METHOD 01/15/2025 6:38 PM [facility] BUN 14 5 - 25 mg/dL LAB CHEMISTRY METHOD 01/15/2025 6:38 PM [facility] Creatinine 1.38(H) 0.70 - 1.30 mg/dL LAB CHEMISTRY METHOD 01/15/2025 6:38 PM EDT [facility] eGFR 63 >=60 mL/min/1. 73m2 LAB CHEMISTRY METHOD 01/15/2025 6:38 PM [facility] Comment:Calculation based on the Chronic Kidney Disease Epidemiology Collaboration (CKD-EPI) equation refit without adjustment for race. BUN/Creatinine Ratio 10.1 LAB CHEMISTRY METHOD 01/15/2025 6:38 PM T [facility] Calcium 9.3 8.5 - 10.5 mg/dL LAB CHEMISTRY METHOD 01/15/2025 6:38 PM [facility] AST (SGOT) 17 10 - 42 unit/L LAB CHEMISTRY METHOD 01/15/2025 6:38 PM [facility] ALT (SGPT) 15 10 - 60 unit/L LAB CHEMISTRY METHOD 01/15/2025 6:38 PM [facility] Alkaline Phosphatase 107 42 - 121 unit/L LAB CHEMISTRY METHOD 01/15/2025 6:38 PM [facility] Total Protein 6.9 6.0 - 8.0 g/dL LAB CHEMISTRY METHOD 01/15/2025 6:38 PM [facility] Albumin 3.6 3.2 - 5.0 g/dL LAB CHEMISTRY METHOD 01/15/2025 6:38 PM [facility] Total Bilirubin 1.2 0.0 - 1.4 mg/dL LAB CHEMISTRY METHOD 01/15/2025 6:38 PM [facility] Blood Venous blood specimen / Unknown 01/15/2025 9:45 AM EDT 01/15/2025 6:16 PM EDT us Humaira Delgado NP LAB BLOOD ORDERABLES Final Result [facility] [address] [place] [address], * (ABNORMAL) Complete blood count (01/15/2025 9:45 AM EDT) [facility] WBC 11.8(H) 4.8 - 10.8 K/mcL LAB HEMETOLOGY METHOD 01/15/2025 6:23 PM EDT [facility] RBC 5.70(H) 4.50 - 5.50 M/mcL LAB HEMETOLOGY METHOD 01/15/2025 6:23 PM EDT [facility] Hemoglobin 16.2 13.5 - 17.5 g/dL LAB HEMETOLOGY METHOD [facility]/15[facility]2025 6[facility] Hematocrit 48.8 42.0 - 54.0 % LAB HEMETOLOGY METHOD 01/15/2025 6:[facility] MCV 85.8 79.0 - 98.0 FL LAB HEMETOLOGY METHOD 01/15/2025 6:23 PM EDT [facility] MCH 28.5 27.0 - 32.0 pcg LAB HEMETOLOGY METHOD 01/15/2025 6:[facility] MCHC 33.2 32.0 - 37.0 g/dL LAB HEMETOLOGY METHOD 01/15/2025 6:23 [facility] RDW 14.6 11.0 - 15.0 % LAB HEMETOLOGY METHOD 01/15/2025 6:23 PM EDT [facility] Platelets 301 130 - 400 K/mcL LAB HEMETOLOGY METHOD 01/15/2025 6:[facility] MPV 11.9(H) 7.0 - 11.0 FL LAB HEMETOLOGY METHOD 01/15/2025 6:[facility] NRBC 0.0 <1.0 % LAB HEMETOLOGY METHOD 01/15/2025 6:23 PM EDT [facility] NRBC Absolute 0.00 <0.10 K/mcL LAB HEMETOLOGY METHOD 01/15/2025 6:23 PM EDT [facility] Blood Venous blood specimen / Unknown 01/15/2025 9:45 AM EDT 01/15/2025 6:16 PM EDT us Humaira Delgado ROD PLACER LAB BLOOD ORDERABLES Final Result [facility] [address] [place] [address], documented in this encounter Visit Diagnoses Diagnosis Adult failure to thrive Hyperlipidemia, unspecified Deficiency of other specified B group vitamins documented in this encounter Care Teams Stationary Fireman Relationship Specialty Start Date End Date Tiesha Mayo NP [address], [place] PCP - General Internal Medicine 05/17/22 documented as of this encounter
[2025-06-26 05:47] VITALS: BP 122/86; PULSE 66; RESP 16; TEMP 36.6; O2SAT 99
--- NOTE | 2025-06-26 07:36 | PC.NURSE ---
Assumed care of patient at 0645, patient appears to be in no apparent distress this am, resting in bed, respirations even and unlabored. continue plan of care for IPLOC
[2025-06-26] MEDS: Aspirin Enteric Coated 81 MG TABLET.DR PO (08:14)
[2025-06-26 08:26] VITALS: BP 139/71; PULSE 66; RESP 16; TEMP 36.2; O2SAT 100
--- NOTE | 2025-06-26 09:48 | PHA.MEDREC ---
Pharmacy Consult ? Medication Reconciliation Pharmacy has reviewed the medication reconciliation done by nursing and also spoke to patient to confirm he is taking atorvastatin 20 mg daily. He was able to name the drug and dose and said he filled it at [facility].
[2025-06-26 18:05] VITALS: BP 113/67; PULSE 63; RESP 16; TEMP 36.2; O2SAT 99
--- NOTE | 2025-06-26 18:07 | PC.NURSE ---
Pt has spent most of the day sleeping, intermittently waking up, going to the bathroom and returning to watch TV. No apparent distress is noted at this time
--- NOTE | 2025-06-26 18:58 | PC.NURSE ---
This screen writer assumed care of this Pt at this time. Pt awake in room sitting in chair watching TV.
--- NOTE | 2025-06-27 02:03 | PC.NURSE ---
Pt awake, ambulated to BR independently with steady gait.
[2025-06-27 06:16] VITALS: BP 118/72; PULSE 59; RESP 17; TEMP 36.9; O2SAT 99
--- NOTE | 2025-06-27 07:17 | PC.NURSE ---
Assumed care of patient at 0645, patient appears to be in no apparent distress this am, calm and cooperative, resting in bed, offering no complaints to this RN. Continue plan of care for IPLOC
[2025-06-27] MEDS: Aspirin Enteric Coated 81 MG TABLET.DR PO (08:18)
[2025-06-27 16:43] VITALS: BP 108/62; PULSE 80; RESP 16; TEMP 36.6; O2SAT 98
--- NOTE | 2025-06-27 21:55 | PC.NURSE ---
Assumed care at 1845. Patient currently resting in bed, no apparent distress. Presents as calm and cooperative. Endorses passive SI, no plan/intent. Denies HI/AVH. Agreeable to alert staff if feeling unsafe. Accepted HS scheduled medications, declined the need for additional PRN medication. Denies current pain/discomfort. 15 minute safety checks ongoing. Continue plan of care for IPLOC.
[2025-06-28 05:39] VITALS: BP 106/63; PULSE 77; RESP 16; TEMP 37.1; O2SAT 98
--- NOTE | 2025-06-28 08:25 | ECG_ITS ---
Test Reason : R/O PROLONGED QT Blood Pressure : */* mmHG Vent. Rate : 85 BPM Atrial Rate : 85 BPM P-R Int : 142 ms QRS Dur : 106 ms QT Int : 410 ms P-R-T Axes : 19 23 38 degrees QTcB Int : 487 ms Normal sinus rhythm Incomplete right bundle branch block Prolonged QT Abnormal ECG When compared with ECG of 06-Apr-2025 13:29, No significant change was found Referred By: Buck Hernandze Electronically Signed By: OCTAVIO SILVESTRE
[2025-06-28] MEDS: Aspirin Enteric Coated 81 MG TABLET.DR PO (10:01)
[2025-06-28 14:25] VITALS: BP 110/62; PULSE 91; RESP 17; TEMP 36.7; O2SAT 100
[2025-06-28 14:26] VITALS: BMI 34.4
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
[2025-06-28] MEDS: Flu Vacc TS2025-26(6mo up)/PF 0.5 ML SYRINGE IM (16:47)
--- NOTE | 2025-06-28 16:57 | PC.ADMIT ---
Kamar was admitted at 1402 from the POD on a CV with a dx of Bipolar Disorder. Patient was admitted after expressing increased depression and anxiety during his PHP appointment on Saturday. Per pt, he was recently discharged from [facility] on [facility]/15 and has since endorsed worsening depression and persistent thoughts of SI. Patient is A&Ox4, pleasant and cooperative during the admission assessment with clear, linear thought process. Reports feeling anxious and agitated at home, and describes having a meltdown on Saturday during his partial. Pt reports being compliant with his medication through a visiting nurse, but states she had not come Saturday morning, and thus he did not receive his Ativan, along with his other scheduled medications. He endorses passive SI (no plan or intent reported) and denies SI/AVH. Pt reports his appetite has been consistently well but that he's been sleeping too much , as he states he gets 12+ hrs/day. Tox was negative and pt denies drinking/smoking. Skin check unremarkable and pt has been placed as high fall risk for hx of falls. When asked pt's goals for this admission, he stated I'm losing hope. I really want to try to make more of an effort during my stay this time around . (Pt noted to be attending groups this afternoon, visible out in the milieu in the evening). Placed on 15 minute checks.
[2025-06-28 20:00] VITALS: BP 117/81; PULSE 98; RESP 16; TEMP 36.6; O2SAT 100
[2025-06-29 08:00] VITALS: BP 114/59; PULSE 82; RESP 16; TEMP 36.7; O2SAT 95
[2025-06-29 08:16] LABS: Lithium 0.55 mmol/L (0.60-1.20)
[2025-06-29] MEDS: Aspirin Enteric Coated 81 MG TABLET.DR PO (08:37)
--- NOTE | 2025-06-29 08:50 | HO.PSYCHPN ---
Subjective Subjective Date of Service: 06/29/25 Reason For Visit: Depression SI Interim History: Chart reviewed, case discussed in tx team Met w/ pt along w/ SW Pt reports that [facility] hadn't arrived to give pt his lorazepam 2 mg prior to PHP last wk x 2 days in a row. He would rather have his medications as rx'd than attend PHP and risk missing them again. Per SW discussion w/ Jackelyn Frank, director of [facility]- pt has been doing much better compared to his last admission here. Seems to be responding well to lithium. Pt reports that he's been taking better care of himself compared to when he was last here. Showering more regularly. Eating better. Denies SI. Denies AHVH. Pt slept okay last night. Mood is 'anxious'. [facility] assisted pt w/ [facility] application and they will meet w/ him here tomorrow. Reviewed lithium level from this am- 0.55 mmol/L. Pt agreeable to titrating dose to optimize tx of depression. Medication Compliance: Yes Side effects from medications: No Attending Groups: Yes Mental Status Exam Mental Status Exam Narrative: Appearance: Hair is disheveled. Casually dressed. Fair eye contact Attitude: Cooperative Speech: Some latency, Otherwise wnl Motor activity: Calm and without any tics, tremors or dyskinesias. Steady gait Mood: anxious Affect: flat Thought process: goal directed, slow, occasional thought blocking Thought content: denies SI. does not endorse violent ideation Perception: Denies AH/VH and does not appear to respond to internal stimuli Insight: fair Judgment: fair Diagnostics Vital Signs (24Hr): Vital Signs - 24 hr 06/28/25 14:25 06/28/25 20:00 Temperature 98.1 F 97.9 F Pulse Rate 91 98 Respiratory Rate 17 16 Blood Pressure 110/62 117/81 Pulse Oximetry 100 100 Oxygen Delivery Method Room Air Room Air BMI result Body Mass Index 34.4 Labs 06/25/25 14:36 06/25/25 14:36 Labs: Laboratory Results - last 48 hr 06/29/25 07:51 [place] 0.55 L Medications Medications Current Medications Acetaminophen (Acetaminophen 325 Mg Tablet) 650 mg PO Q6H PRN PRN Reason: Headache/Pain, Scale 1-10 Al Hydroxide/Mg Hydroxide (Magnesium Hydrox/Alum Hydrox 30 Ml Oral.Susp) 30 ml PO Q6H PRN PRN Reason: Heartburn/Nausea Aspirin (Aspirin Enteric Coated 81 Mg Tablet.Dr) 81 mg PO DAILY [facility] Last Admin: 06/29/25 08:37 Dose: 81 mg Atorvastatin Calcium (Atorvastatin Calcium 20 Mg Tablet) 20 mg PO BEDTIME [facility] Last Admin: 06/28/25 20:18 Dose: 20 mg Bupropion HCl (Bupropion Hcl 100 Mg Tablet) 100 mg PO BID@0900,1700 [facility] Last Admin: 06/29/25 08:36 Dose: 100 mg Hydroxyzine HCl (Hydroxyzine Hcl 25 Mg Tablet) 25 mg PO Q6H PRN PRN Reason: mild anxiety [place] Carbonate ([place] Carbonate 300 Mg Capsule) 300 mg PO BID [facility] Last Admin: 06/29/25 08:37 Dose: 300 mg Lorazepam (Lorazepam 1 Mg Tablet) 2 mg PO BID [facility] Last Admin: 06/29/25 08:37 Dose: 2 mg Magnesium Hydroxide (Milk Of Magnesia 30 Ml Oral.Susp) 30 ml PO DAILY PRN PRN Reason: Constipation Nicotine Polacrilex (Nicotine Polacrilex 2 Mg Gum) 2 mg BUCCAL Q2H PRN PRN Reason: Nicotine Cravings Trazodone HCl (Trazodone Hcl 50 Mg Tablet) 50 mg PO BEDTIME MRX1 PRN PRN Reason: Insomnia Allergies Allergies Allergy/AdvReac Type Severity Reaction Status Date / Time pumpkin Allergy Unknown Unknown Verified 06/25/25 14:15 Assessment & Plan Assessment & Plan (1) Bipolar I disorder with depression, severe: Status: Acute Code(s): F31.4 - Bipolar disorder, current episode depressed, severe, without psychotic features (2) CKD (chronic kidney disease): Qualifiers: Chronic kidney disease stage: stage 3 (moderate) Chronic kidney disease stage 3 subtype: stage 3a (GFR 45-59) Qualified Code(s): N18.31 - Chronic kidney disease, stage 3a Status: Acute Code(s): N18.9 - Chronic kidney disease, unspecified Assessment and Plan: Creatinine on 06/28 wnl at 1.3 Plan Mr. Cote is a 49 yo SWM with h/o bipolar d/o, ELISABETH and multiple inpatient psychiatric admissions (most recently at [facility] [place]/27-05/25/25), previous h/o morbid obesity and LUIS-- both resolved s/p gastric sleeve surgery, CKD, HLD and CVA without residual deficits who was brought to the [facility] ED after endorsing SI at the [facility] PHP and asking to speak w/ Crisis. Pt endorses severe depression and anxiety. He was started on lithium 300 mg bid. Will check level tomorrow am. He completed 13 ECTs (mostly bitemporal) between Apr and 05/12/25 during his M3 admission with some improvement in his mood/affect from tx 9-11 per my review of his chart. Plan: Admit to M3 for safety and stabilization Legal status- CV 15 min safety checks milieu therapy Labs reviewed. creatinine 1.3. Ordered lithium level for tomorrow am Admission medical H&P to be completed by hospitalist Will continue home meds for now. Added prn trazodone for insomnia and Vistaril prn for anxiety Consider re-starting ECT 06/29: Pt's mood and overall functioning has improved compared to last admission. Major stressor leading to this admission seems to be missing his am 2 mg lorazepam x 2 days since [facility] wasn't able to arrive to dispense the med prior to pt attending PHP. Reviewed lithium level- 0.55 mmol/L. Pt is agreeable w/ plan to titrate lithium to optimize tx of depression. Received 300 mg this am, add 600 mg tonight and switch to 900 mg ER at hs starting tomorrow night. Patient educated on: medication risk/benefits Informed Consent: understands Reason for continued inpatient stay Substantial Risk for: med/psych decompensation Time Spent With Patient Time: Total time managing care of this patient today ____ minutes.
--- NOTE | 2025-06-29 08:56 | HO.PM.IMCN ---
History of Present Illness Data of Consult Service Date: 06/29/25 Primary Care Provider: Humaira Delgado APRN [facility] Reason for consult: Medical consult 49 year old male with PMH of Bipolar DO, MDD, Dysthymia, unspecified psychotic disorder, generalized anxiety disorder and history of suicide ideation with prior attempts. He has also had multiple prior inpatient hospitalization. 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 He reports a history of gastric sleeve surgery. Patient presented to the ED with suicide ideation which has worsened since his recent partial hospitalization program. His initial workup revealed an unremarkable CBC, chemistry without any acute findings UA was without infection, U tox was negative and alcohol was negative. Patient was evaluated by the care team and felt to be appropriate for inpatient hospitalization. On exam he has no physical complaints or concerns. He denies any dysuria. Patient was seen out of bed in day room. Review of Systems Review of Systems: Denies any shortness of breath, chest pain, headaches, dysuria, abdominal pain or discomfort, nausea, vomiting or diarrhea. Denies fever or chills. [facility] Medical History (Updated 06/29/25 @ 16:27 by Lucía Casas DNP) Bipolar I disorder with depression, severe Bipolar disorder Obesity LUIS (obstructive sleep apnea) HLD (hyperlipidemia) HTN (hypertension) CVA (cerebral vascular accident) Surgical History (Updated 06/25/25 @ 09:37 by Gabrielle Forrest RN) H/O bariatric surgery Social History Household Members: None Household Members Other:: Currently residing in a homeless senior care Housing: Other Do you presently have visiting nurse or other home services: Yes Patient Tobacco Use Status: Former Tobacco user Tobacco use type: Cigarette Smoked in Last 30 Days: No e-Cigarette/Vaping Use: Never Used Patient Interested in Nicotine Replacement: No Second Hand Smoke Exposure: No Currently Displaying Signs/Symptoms of Drug Intoxication Withdrawal: No Have you been hit, kicked, punched, or otherwise hurt by someone within the past year? If so, by whom?: No Do you feel safe in your current relationship?: No Current Relationship Is there a partner from a previous relationship who is making you feel unsafe now?: No Are you made to feel afraid or neglected: No Advance Directives: No Advance Directives Information Provided: Yes Do you have thoughts of harming others: None Do you have a plan to hurt others: No Plan Recently lost weight without trying: No How much weight loss: Not applicable Eating poorly because of decreased appetite: No Nutrition screen score: 0 Nutrition Risks: No Nutritional Risk Poor oral hygiene: No service: No Sexual orientation: Straight/Heterosexual Meds Allergies Allergy/AdvReac Type Severity Reaction Status Date / Time pumpkin Allergy Unknown Unknown Verified 06/25/25 14:15 Active Medications: Current Medications Acetaminophen (Acetaminophen 325 Mg Tablet) 650 mg PO Q6H PRN PRN Reason: Headache/Pain, Scale 1-10 Al Hydroxide/Mg Hydroxide (Magnesium Hydrox/Alum Hydrox 30 Ml Oral.Susp) 30 ml PO Q6H PRN PRN Reason: Heartburn/Nausea Aspirin (Aspirin Enteric Coated 81 Mg Tablet.Dr) 81 mg PO DAILY [facility] Last Admin: 06/29/25 08:37 Dose: 81 mg Atorvastatin Calcium (Atorvastatin Calcium 20 Mg Tablet) 20 mg PO BEDTIME [facility] Last Admin: 06/28/25 20:18 Dose: 20 mg Bupropion HCl (Bupropion Hcl 100 Mg Tablet) 100 mg PO BID@0900,1700 [facility] Last Admin: 06/29/25 08:36 Dose: 100 mg Hydroxyzine HCl (Hydroxyzine Hcl 25 Mg Tablet) 25 mg PO Q6H PRN PRN Reason: mild anxiety [place] Carbonate ([place] Carbonate 300 Mg Capsule) 300 mg PO BID [facility] Last Admin: 06/29/25 08:37 Dose: 300 mg Lorazepam (Lorazepam 1 Mg Tablet) 2 mg PO BID [facility] Last Admin: 06/29/25 08:37 Dose: 2 mg Magnesium Hydroxide (Milk Of Magnesia 30 Ml Oral.Susp) 30 ml PO DAILY PRN PRN Reason: Constipation Nicotine Polacrilex (Nicotine Polacrilex 2 Mg Gum) 2 mg BUCCAL Q2H PRN PRN Reason: Nicotine Cravings Trazodone HCl (Trazodone Hcl 50 Mg Tablet) 50 mg PO BEDTIME MRX1 PRN PRN Reason: Insomnia Home Medications ?Medication ?Instructions ?Recorded ?Confirmed ?Last Taken ?Type lithium carbonate 300 mg tablet 300 mg PO BID 06/25/25 06/25/25 06/24/25 History lorazepam 2 mg tablet 2 mg PO BID 06/25/25 06/25/25 06/24/25 History Physical Exam Vital Signs and Narrative: Vital Signs: Last Vital Signs Temp 98.1 F 06/29/25 08:00 Pulse 82 06/29/25 08:00 Resp 16 06/29/25 08:00 BP 114/59 L 06/29/25 08:00 Pulse Ox 95 06/29/25 08:00 O2 Del Method Room Air 06/29/25 08:00 BMI result Body Mass Index 34.4 Results Labs 06/25/25 14:36 06/25/25 14:36 Labs: Laboratory Results - last 24 hr 06/29/25 07:51 [place] 0.55 L Assessment and Plan (1) HTN (hypertension): Status: Acute Plan 49-year-old male with past medical history as listed below presented to the ED with suicide ideation now admitted for stabilization. Bipolar DO/MDD/Dysthymia/unspecified psychotic disorder/ELISABETH and history of suicide ideation with prior attempts Treatment per psychiatric team. HLD/HTN/History of CVA/LUIS Last seen by Neurology in 09/2022-Unremarkable MRI from 10/26/2022 Recommend aspirin 81 mg daily as well as atorvastatin 20 mgs per previous neurology record from 09/2022 Blood pressure stable Facial rash/flaky skin Moisturize skin Thank you for allowing me to participate in the care of this patient. Will follow with you, please notify medical provider with any changes in condition or concerns.
[2025-06-29 20:00] VITALS: BP 113/66; PULSE 98; RESP 18; TEMP 37.8; O2SAT 99
[2025-06-29 21:30] VITALS: TEMP 37.2
[2025-06-30 07:31] VITALS: BP 109/59; PULSE 77; RESP 16; TEMP 36.8; O2SAT 96
[2025-06-30] MEDS: Aspirin Enteric Coated 81 MG TABLET.DR PO (08:43)
--- NOTE | 2025-06-30 09:35 | P.PNPSI_ITS ---
Subjective Subjective Date of Service: 06/30/25 Reason For Visit: Depression SI Subjective Notes: Conditional Voluntary Interim History: Chart reviewed. Case discussed with tx team Slept 8 hrs per nursing report Pt met w/ [facility] this am. He thinks the meeting went well. They will f/u with him next Sat. Pt has tx appt scheduled for 07/07 Pt reports that he's 'not so good' but acknowledges that he's doing much better than when he was last admitted here. He endorses passive SI but denies any plan, states that this is a longstanding issue. Denies AHVH. Denies SE from lithium titration or any other meds. T/W asked about pt's dx of CKD since he's on the lithium and he states that he's not aware of having kidney disease. Discussed potential for d/c on Saturday and pt stated I think that's appropriate . Mental Status Exam Mental Status Exam Narrative: Appearance: Casually dressed. hair is disheveled. fair eye contact Attitude: Cooperative Speech: generally wnl Motor activity: Calm and without any tics, tremors or dyskinesias. Steady gait Mood: as noted above Affect: flat Thought process: goal directed Thought content: as noted above. does not endorse violent ideation Perception: Denies AH/VH and does not appear to respond to internal stimuli Insight: fair Judgment: fair Diagnostics Vital Signs (24Hr): Vital Signs - 24 hr 06/29/25 20:00 06/29/25 21:30 06/30/25 07:31 Temperature 100.0 F 98.9 F 98.2 F Pulse Rate 98 77 Respiratory Rate 18 16 Blood Pressure 113/66 109/59 L Pulse Oximetry 99 96 Oxygen Delivery Method Room Air Room Air BMI result Body Mass Index 34.4 Labs 06/25/25 14:36 06/25/25 14:36 Labs: Laboratory Results - last 48 hr 06/29/25 07:51 [place] 0.55 L Medications Medications Current Medications Acetaminophen (Acetaminophen 325 Mg Tablet) 650 mg PO Q6H PRN PRN Reason: Headache/Pain, Scale 1-10 Al Hydroxide/Mg Hydroxide (Magnesium Hydrox/Alum Hydrox 30 Ml Oral.Susp) 30 ml PO Q6H PRN PRN Reason: Heartburn/Nausea Aspirin (Aspirin Enteric Coated 81 Mg Tablet.) 81 mg PO DAILY [facility] Last Admin: 06/30/25 08:43 Dose: 81 mg Atorvastatin Calcium (Atorvastatin Calcium 20 Mg Tablet) 20 mg PO BEDTIME [facility] Last Admin: 06/29/25 21:49 Dose: 20 mg Bupropion HCl (Bupropion Hcl 100 Mg Tablet) 100 mg PO BID@0900,1700 [facility] Last Admin: 06/30/25 08:43 Dose: 100 mg Hydroxyzine HCl (Hydroxyzine Hcl 25 Mg Tablet) 25 mg PO Q6H PRN PRN Reason: mild anxiety [place] Carbonate ([place] Carbonate Er 450 Mg Tablet.Er) 900 mg PO BEDTIME [facility] Lorazepam (Lorazepam 1 Mg Tablet) 2 mg PO BID [facility] Last Admin: 06/30/25 08:43 Dose: 2 mg Magnesium Hydroxide (Milk Of Magnesia 30 Ml Oral.Susp) 30 ml PO DAILY PRN PRN Reason: Constipation Nicotine Polacrilex (Nicotine Polacrilex 2 Mg Gum) 2 mg BUCCAL Q2H PRN PRN Reason: Nicotine Cravings Trazodone HCl (Trazodone Hcl 50 Mg Tablet) 50 mg PO BEDTIME MRX1 PRN PRN Reason: Insomnia Allergies Allergies Allergy/AdvReac Type Severity Reaction Status Date / Time pumpkin Allergy Unknown Unknown Verified 06/25/25 14:15 Assessment & Plan Assessment & Plan (1) Bipolar I disorder with depression, severe: Status: Acute Code(s): F31.4 - Bipolar disorder, current episode depressed, severe, without psychotic features (2) CKD (chronic kidney disease): Qualifiers: Chronic kidney disease stage: stage 3 (moderate) Chronic kidney disease stage 3 subtype: stage 3a (GFR 45-59) Qualified Code(s): N18.31 - Chronic kidney disease, stage 3a Status: Acute Code(s): N18.9 - Chronic kidney disease, unspecified Assessment and Plan: Creatinine on 06/28 wnl at 1.3 Plan Mr. Cote is a 49 yo SWM with h/o bipolar d/o, ELISABETH and multiple inpatient psychiatric admissions (most recently at [facility] from 03/27-05/25/25), previous h/o morbid obesity and LUIS-- both resolved s/p gastric sleeve surgery, CKD, HLD and CVA without residual deficits who was brought to the [facility] ED after endorsing SI at the [facility] PHP and asking to speak w/ Crisis. Pt endorses severe depression and anxiety. He was started on lithium 300 mg bid. Will check level tomorrow am. He completed 13 ECTs (mostly bitemporal) between Apr and 05/12/25 during his M3 admission with some improvement in his mood/affect from tx 9-11 per my review of his chart. Plan: Admit to M3 for safety and stabilization Legal status- CV 15 min safety checks milieu therapy Labs reviewed. creatinine 1.3. Ordered lithium level for tomorrow am Admission medical H&P to be completed by hospitalist Will continue home meds for now. Added prn trazodone for insomnia and Vistaril prn for anxiety Consider re-starting ECT 06/29: Pt's mood and overall functioning has improved compared to last admission. Major stressor leading to this admission seems to be missing his am 2 mg lorazepam x 2 days since [facility] wasn't able to arrive to dispense the med prior to pt attending PHP. Reviewed lithium level- 0.55 mmol/L. Pt is agreeable w/ plan to titrate lithium to optimize tx of depression. Received 300 mg this am, add 600 mg tonight and switch to 900 mg ER at hs starting tomorrow night. 06/30: [place] level, BUN & creatinine ordered for Sun, 07/04. Will send scripts to [facility] when pt is discharged, per [facility] request. Continue current tx plan. Potential d/c on Saturday Reason for continued inpatient stay Substantial Risk for: med/psych decompensation Time Spent With Patient Time: Total time managing care of this patient today ____ minutes.
[2025-06-30 20:00] VITALS: BP 100/60; PULSE 71; RESP 16; TEMP 36.4; O2SAT 99
[2025-07-01 07:05] VITALS: BP 106/59; PULSE 65; RESP 14; TEMP 36.4; O2SAT 96
[2025-07-01] MEDS: Aspirin Enteric Coated 81 MG TABLET.DR PO (09:05)
--- NOTE | 2025-07-01 18:46 | HO.PSYCHPN ---
Subjective Subjective Date of Service: 07/01/25 Reason For Visit: Depression SI Subjective Notes: Conditional Voluntary Interim History: Chart reviewed. Case discussed w/ tx team Pt reports that he's feeling a little better today. He denies SI. Slept well. Denies med SE He has been spending time in the milieu and attending some groups. Medication Compliance: Yes Mental Status Exam Mental Status Exam Narrative: Appearance: Casually dressed. hair is disheveled. fair eye contact Attitude: Cooperative Speech: WNL Motor activity: Calm and without any tics, tremors or dyskinesias. Mood: as noted above Affect: flat Thought process: goal directed Thought content: as noted above. Perception: does not appear to respond to internal stimuli Insight: fair Judgment: intact Diagnostics Vital Signs (24Hr): Vital Signs - 24 hr 06/30/25 20:00 07/01/25 07:05 Temperature 97.6 F 97.5 F Pulse Rate 71 65 Respiratory Rate 16 14 Blood Pressure 100/60 106/59 L Pulse Oximetry 99 96 Oxygen Delivery Method Room Air Room Air BMI result Body Mass Index 34.4 Labs 06/25/25 14:36 06/25/25 14:36 Medications Medications Current Medications Acetaminophen (Acetaminophen 325 Mg Tablet) 650 mg PO Q6H PRN PRN Reason: Headache/Pain, Scale 1-10 Al Hydroxide/Mg Hydroxide (Magnesium Hydrox/Alum Hydrox 30 Ml Oral.Susp) 30 ml PO Q6H PRN PRN Reason: Heartburn/Nausea Aspirin (Aspirin Enteric Coated 81 Mg Tablet.) 81 mg PO DAILY [facility] Last Admin: 07/01/25 09:05 Dose: 81 mg Atorvastatin Calcium (Atorvastatin Calcium 20 Mg Tablet) 20 mg PO BEDTIME [facility] Last Admin: 06/30/25 20:26 Dose: 20 mg Bupropion HCl (Bupropion Hcl 100 Mg Tablet) 100 mg PO BID@0900,1700 [facility] Last Admin: 07/01/25 16:59 Dose: 100 mg Hydroxyzine HCl (Hydroxyzine Hcl 25 Mg Tablet) 25 mg PO Q6H PRN PRN Reason: mild anxiety [place] Carbonate ([place] Carbonate Er 450 Mg Tablet.Er) 900 mg PO BEDTIME [facility] Last Admin: 06/30/25 20:26 Dose: 900 mg Lorazepam (Lorazepam 1 Mg Tablet) 2 mg PO BID [facility] Last Admin: 07/01/25 09:05 Dose: 2 mg Magnesium Hydroxide (Milk Of Magnesia 30 Ml Oral.Susp) 30 ml PO DAILY PRN PRN Reason: Constipation Nicotine Polacrilex (Nicotine Polacrilex 2 Mg Gum) 2 mg BUCCAL Q2H PRN PRN Reason: Nicotine Cravings Trazodone HCl (Trazodone Hcl 50 Mg Tablet) 50 mg PO BEDTIME MRX1 PRN PRN Reason: Insomnia Allergies Allergies Allergy/AdvReac Type Severity Reaction Status Date / Time pumpkin Allergy Unknown Unknown Verified 06/25/25 14:15 Assessment & Plan Assessment & Plan (1) Bipolar I disorder with depression, severe: Status: Acute Code(s): F31.4 - Bipolar disorder, current episode depressed, severe, without psychotic features (2) CKD (chronic kidney disease): Qualifiers: Chronic kidney disease stage: stage 3 (moderate) Chronic kidney disease stage 3 subtype: stage 3a (GFR 45-59) Qualified Code(s): N18.31 - Chronic kidney disease, stage 3a Status: Acute Code(s): N18.9 - Chronic kidney disease, unspecified Assessment and Plan: Creatinine on 06/28 wnl at 1.3 Plan Mr. Cote is a 49 yo SWM with h/o bipolar d/o, ELISABETH and multiple inpatient psychiatric admissions (most [place] at [facility] [place]), previous h/o morbid obesity and LUIS-- both resolved s/p gastric sleeve surgery, CKD, HLD and CVA without residual deficits who was brought to the [facility] [place] after endorsing SI at the [facility] and asking to speak w/ Crisis. Pt endorses severe depression and anxiety. He was started on lithium 300 mg bid. Will check level tomorrow am. He completed 13 ECTs (mostly bitemporal) between Apr and 05/12/25 during his M3 admission with some improvement in his mood/affect from tx 9-11 per my review of his chart. Plan: Admit to M3 for safety and stabilization Legal status- CV 15 min safety checks milieu therapy Labs reviewed. creatinine 1.3. Ordered lithium level for tomorrow am Admission medical H&P to be completed by hospitalist Will continue home meds for now. Added prn trazodone for insomnia and Vistaril prn for anxiety Consider re-starting ECT 06/29: Pt's mood and overall functioning has improved compared to last admission. Major stressor leading to this admission seems to be missing his am 2 mg lorazepam x 2 days since [facility] wasn't able to arrive to dispense the med prior to pt attending PHP. Reviewed lithium level- 0.55 mmol/L. Pt is agreeable w/ plan to titrate lithium to optimize tx of depression. Received 300 mg this am, add 600 mg tonight and switch to 900 mg ER at hs starting tomorrow night. 06/30: [place] level, BUN & creatinine ordered for [place], 07/04. Will send scripts to [facility] when pt is discharged, per [facility] request. Continue current tx plan. Potential d/c on Sunday 07/01: Mood is improving. Denies SI. Continue current tx plan Patient educated on: medication risk/benefits Informed Consent: understands Reason for continued inpatient stay Substantial Risk for: med/psych decompensation Time Spent With Patient Time: Total time managing care of this patient today ____ minutes.
[2025-07-01 20:00] VITALS: BP 117/73; PULSE 85; RESP 16; TEMP 36.5; O2SAT 100
[2025-07-02 07:45] VITALS: BP 95/59; PULSE 66; RESP 18; TEMP 36.2; O2SAT 98
[2025-07-02] MEDS: Aspirin Enteric Coated 81 MG TABLET.DR PO (08:42)
--- NOTE | 2025-07-02 19:26 | HO.PSYCHPN ---
Subjective Subjective Date of Service: 07/02/25 Reason For Visit: Depression SI Subjective Notes: Conditional Voluntary Interim History: chart reviewed. case discussed with team Pt is feeling listless . Denies SI. He worries about being isolated when he returns to his home ([facility]). Notes that he hates most people and feels safer when he's alone but realizes it's not healthy for him. He feels like he needs to advocate more for himself w/ his outpatient care team. He is frustrated about trying multiple meds and ECT without significant improvement in his depression. He used to enjoy music and reading and hasn't been able to enjoy anything in the past year. He acknowledges that he's doing much better than when he was last admitted here- improved self care, eating, interacting with others. Feels hopeful that the lithium will help. He asks to increase the bupropion. . Medication Compliance: Yes Side effects from medications: No Mental Status Exam Mental Status Exam Narrative: Appearance: Casually dressed. hair is disheveled. improved eye contact Attitude: Cooperative. More engaging today Speech: fluent, wnl Motor activity: Calm and without any tics, tremors or dyskinesias. Mood: 'listless' Affect: depressed, improved range of affect Thought process: goal directed Thought content: as noted above. Perception: does not appear to respond to internal stimuli A/O x 3 Insight: intact Judgment: intact Diagnostics Vital Signs (24Hr): Vital Signs - 24 hr 07/01/25 20:00 07/02/25 07:45 Temperature 97.7 F 97.2 F Pulse Rate 85 66 Respiratory Rate 16 18 Blood Pressure 117/73 95/59 L Pulse Oximetry 100 98 Oxygen Delivery Method Room Air Room Air BMI result Body Mass Index 34.4 Labs 06/25/25 14:36 06/25/25 14:36 Medications Medications Current Medications Acetaminophen (Acetaminophen 325 Mg Tablet) 650 mg PO Q6H PRN PRN Reason: Headache/Pain, Scale 1-10 Al Hydroxide/Mg Hydroxide (Magnesium Hydrox/Alum Hydrox 30 Ml Oral.Susp) 30 ml PO Q6H PRN PRN Reason: Heartburn/Nausea Aspirin (Aspirin Enteric Coated 81 Mg Tablet.) 81 mg PO DAILY [facility] Last Admin: 07/02/25 08:42 Dose: 81 mg Atorvastatin Calcium (Atorvastatin Calcium 20 Mg Tablet) 20 mg PO BEDTIME [facility] Last Admin: 07/01/25 20:20 Dose: 20 mg Bupropion HCl (Bupropion Hcl 100 Mg Tablet) 100 mg PO BID@0900,1700 [facility] Last Admin: 07/02/25 17:29 Dose: 100 mg Hydroxyzine HCl (Hydroxyzine Hcl 25 Mg Tablet) 25 mg PO Q6H PRN PRN Reason: mild anxiety [place] Carbonate ([place] Carbonate Er 450 Mg Tablet.Er) 900 mg PO BEDTIME [facility] Last Admin: 07/01/25 20:20 Dose: 900 mg Lorazepam (Lorazepam 1 Mg Tablet) 2 mg PO BID [facility] Last Admin: 07/02/25 08:42 Dose: 2 mg Magnesium Hydroxide (Milk Of Magnesia 30 Ml Oral.Susp) 30 ml PO DAILY PRN PRN Reason: Constipation Nicotine Polacrilex (Nicotine Polacrilex 2 Mg Gum) 2 mg [place]CCAL Q2H PRN PRN Reason: Nicotine Cravings Trazodone HCl (Trazodone Hcl 50 Mg Tablet) 50 mg PO BEDTIME MRX1 PRN PRN Reason: Insomnia Last Admin: 07/01/25 23:46 Dose: 50 mg Allergies Allergies Allergy/AdvReac Type Severity Reaction Status Date / Time pumpkin Allergy Unknown Unknown Verified 06/25/25 14:15 Assessment & Plan Assessment & Plan (1) Bipolar I disorder with depression, severe: Status: Acute Code(s): F31.4 - Bipolar disorder, current episode depressed, severe, without psychotic features (2) CKD (chronic kidney disease): Qualifiers: Chronic kidney disease stage: stage 3 (moderate) Chronic kidney disease stage 3 subtype: stage 3a (GFR 45-59) Qualified Code(s): N18.31 - Chronic kidney disease, stage 3a Status: Acute Code(s): N18.9 - Chronic kidney disease, unspecified Assessment and Plan: Creatinine on 06/28 wnl at 1.3 Plan Mr. Cote is a 49 yo SWM with h/o bipolar d/o, ELISABETH and multiple inpatient psychiatric admissions (most recently at [facility] [place] from 03/27-05/25/25), previous h/o morbid obesity and LUIS-- both resolved s/p gastric sleeve surgery, CKD, HLD and CVA without residual deficits who was brought to the [facility] [place] ED after endorsing SI at the [facility] PHP and asking to speak w/ Crisis. Pt endorses severe depression and anxiety. He was started on lithium 300 mg bid. Will check level tomorrow am. He completed 13 ECTs (mostly bitemporal) between Apr and 05/12/25 during his M3 admission with some improvement in his mood/affect from tx 9-11 per my review of his chart. Plan: Admit to M3 for safety and stabilization Legal status- CV 15 min safety checks milieu therapy Labs reviewed. creatinine 1.3. Ordered lithium level for tomorrow am Admission medical H&P to be completed by hospitalist Will continue home meds for now. Added prn trazodone for insomnia and Vistaril prn for anxiety Consider re-starting ECT 06/29: Pt's mood and overall functioning has improved compared to last admission. Major stressor leading to this admission seems to be missing his am 2 mg lorazepam x 2 days since [facility] wasn't able to arrive to dispense the med prior to pt attending PHP. Reviewed lithium level- 0.55 mmol/L. Pt is agreeable w/ plan to titrate lithium to optimize tx of depression. Received 300 mg this am, add 600 mg tonight and switch to 900 mg ER at hs starting tomorrow night. 06/30: [place] level, BUN & creatinine ordered for [place], 07/04. Will send scripts to [facility] when pt is discharged, per [facility] request. Continue current tx plan. Potential d/c on Sunday 07/01: Mood is improving. Denies SI. Continue current tx plan 07/02: Pt endorses anhedonia, feeling 'listless' but his overall functioning, mood and range of affect have improved. Will titrate bupropion IR by 37.5 mg tomorrow (100 mg in am, 37.5 mg at 3 pm, 100 mg at hs) to optimize tx of depression. Reviewed increased risk of seizures w/ combination of bupropion + lithium. Will switch lithium back to IR dosing to improve absorption since pt is s/p gastric sleeve. [place] level, bun/cr ordered for Sun am. Patient educated on: medication risk/benefits and therapeutic strategies Informed Consent: understands Reason for continued inpatient stay Substantial Risk for: med/psych decompensation Time Spent With Patient Time: Total time managing care of this patient today ____ minutes.
[2025-07-02 20:00] VITALS: BP 120/79; PULSE 85; RESP 16; TEMP 36.3; O2SAT 100
[2025-07-03 07:43] VITALS: BP 106/52; PULSE 63; RESP 14; TEMP 36.4; O2SAT 96
[2025-07-03] MEDS: Aspirin Enteric Coated 81 MG TABLET.DR PO (08:54)
--- NOTE | 2025-07-03 09:05 | HO.PSYCHPN ---
Subjective Subjective Date of Service: 07/03/25 Reason For Visit: Depression SI Interim History: Patient was seen and discussed in rounds today. Records and plans were reviewed. He continues to endorse depression and anxiety, mostly depression. Affect is blunted. He is isolative. He is guarded and withdrawn. He denies any SI ?today?. No behavioral issues. No complaints or side effects. No changes were made today Review of Systems Review of Systems Yes all other systems are reviewed and are negative Mental Status Exam Mental Status Exam Narrative: In today's visit he is alert, oriented and pleasant. Soft-spoken, slow speech. No eye contact. Affect is appropriate, depressed. No signs of psychosis. No response to internal stimuli. No delusions. No active SI. Cognitively has slow thought processes. Moves all limbs. No gait abnormalities. Judgment is fair. Diagnostics Vital Signs (24Hr): Vital Signs - 24 hr 07/02/25 20:00 07/03/25 07:43 Temperature 97.3 F 97.5 F Pulse Rate 85 63 Respiratory Rate 16 14 Blood Pressure 120/79 106/52 L Pulse Oximetry 100 96 Oxygen Delivery Method Room Air Room Air BMI result Body Mass Index 34.4 Labs 06/25/25 14:36 06/25/25 14:36 Medications Medications Current Medications Acetaminophen (Acetaminophen 325 Mg Tablet) 650 mg PO Q6H PRN PRN Reason: Headache/Pain, Scale 1-10 Al Hydroxide/Mg Hydroxide (Magnesium Hydrox/Alum Hydrox 30 Ml Oral.Susp) 30 ml PO Q6H PRN PRN Reason: Heartburn/Nausea Aspirin (Aspirin Enteric Coated 81 Mg Tablet.) 81 mg PO DAILY [facility] Last Admin: 07/03/25 08:54 Dose: 81 mg Atorvastatin Calcium (Atorvastatin Calcium 20 Mg Tablet) 20 mg PO BEDTIME [facility] Last Admin: 07/02/25 20:29 Dose: 20 mg Bupropion HCl (Bupropion Hcl 100 Mg Tablet) 100 mg PO BID [facility] Last Admin: 07/03/25 08:54 Dose: 100 mg Bupropion HCl (Bupropion Hcl 75 Mg Tablet) 37.5 mg PO DAILY [facility] Hydroxyzine HCl (Hydroxyzine Hcl 25 Mg Tablet) 25 mg PO Q6H PRN PRN Reason: mild anxiety [place] Carbonate ([place] Carbonate 300 Mg Capsule) 300 mg PO TID [facility] Last Admin: 07/03/25 08:54 Dose: 300 mg Lorazepam (Lorazepam 1 Mg Tablet) 2 mg PO BID [facility] Last Admin: 07/03/25 08:54 Dose: 2 mg Magnesium Hydroxide (Milk Of Magnesia 30 Ml Oral.Susp) 30 ml PO DAILY PRN PRN Reason: Constipation Nicotine Polacrilex (Nicotine Polacrilex 2 Mg Gum) 2 mg [place] Q2H PRN PRN Reason: Nicotine Cravings Trazodone HCl (Trazodone Hcl 50 Mg Tablet) 50 mg PO BEDTIME MRX1 PRN PRN Reason: Insomnia Last Admin: 07/02/25 21:27 Dose: 50 mg Allergies Allergies Allergy/AdvReac Type Severity Reaction Status Date / Time pumpkin Allergy Unknown Unknown Verified 06/25/25 14:15 Assessment & Plan Assessment & Plan (1) Bipolar I disorder with depression, severe: Status: Acute Code(s): F31.4 - Bipolar disorder, current episode depressed, severe, without psychotic features (2) CKD (chronic kidney disease): Qualifiers: Chronic kidney disease stage: stage 3 (moderate) Chronic kidney disease stage 3 subtype: stage 3a (GFR 45-59) Qualified Code(s): N18.31 - Chronic kidney disease, stage 3a Status: Acute Code(s): N18.9 - Chronic kidney disease, unspecified Assessment and Plan: Creatinine on 06/28 wnl at 1.3 Plan Mr. Cote is a 49 yo SWM with h/o bipolar d/o, ELISABETH and multiple inpatient psychiatric admissions (most recently at [facility] from 03/27-05/25/25), previous h/o morbid obesity and LUIS-- both resolved s/p gastric sleeve surgery, CKD, HLD and CVA without residual deficits who was brought to the [facility] ED after endorsing SI at the [facility] PHP and asking to speak w/ Crisis. Pt endorses severe depression and anxiety. He was started on lithium 300 mg bid. Will check level tomorrow am. He completed 13 ECTs (mostly bitemporal) between Apr and 05/12/25 during his M3 admission with some improvement in his mood/affect from tx 9-11 per my review of his chart. Plan: Admit to M3 for safety and stabilization Legal status- CV 15 min safety checks milieu therapy Labs reviewed. creatinine 1.3. Ordered lithium level for tomorrow am Admission medical H&P to be completed by hospitalist Will continue home meds for now. Added prn trazodone for insomnia and Vistaril prn for anxiety Consider re-starting ECT 06/29: Pt's mood and overall functioning has improved compared to last admission. Major stressor leading to this admission seems to be missing his am 2 mg lorazepam x 2 days since [facility] wasn't able to arrive to dispense the med prior to pt attending PHP. Reviewed lithium level- 0.55 mmol/L. Pt is agreeable w/ plan to titrate lithium to optimize tx of depression. Received 300 mg this am, add 600 mg tonight and switch to 900 mg ER at hs starting tomorrow night. 06/30: [place] level, BUN & creatinine ordered for [place], 07/04. Will send scripts to [facility] when pt is discharged, per [facility] request. Continue current tx plan. Potential d/c on Sunday 07/01: Mood is improving. Denies SI. Continue current tx plan 07/02: Pt endorses anhedonia, feeling 'listless' but his overall functioning, mood and range of affect have improved. Will titrate bupropion IR by 37.5 mg tomorrow (100 mg in am, 37.5 mg at 3 pm, 100 mg at hs) to optimize tx of depression. Reviewed increased risk of seizures w/ combination of bupropion + lithium. Will switch lithium back to IR dosing to improve absorption since pt is s/p gastric sleeve. [place] level, bun/cr ordered for Sun am. 07/03Continue current regimen and plans Reason for continued inpatient stay Substantial Risk for: med/psych decompensation Time Spent With Patient Time: Total time managing care of this patient today ____ minutes.
[2025-07-03 20:00] VITALS: BP 118/73; PULSE 74; RESP 16; TEMP 36.7; O2SAT 100
[2025-07-04 07:57] LABS: Lithium 0.59 mmol/L (0.60-1.20)
[2025-07-04 08:00] VITALS: BP 110/59; PULSE 60; RESP 18; TEMP 36.7; O2SAT 98
[2025-07-04 08:03] LABS: Blood Urea Nitrogen 26 mg/dL (9-16); Creatinine Clr Calc Pharmacy 93.9; Estimated Glomerular Filt Rate > 60
[2025-07-04] MEDS: Aspirin Enteric Coated 81 MG TABLET.DR PO (09:46)
--- NOTE | 2025-07-04 10:25 | P.PNPSI_ITS ---
Subjective Subjective Date of Service: 07/04/25 Reason For Visit: Depression SI Subjective Notes: Conditional Voluntary Interim History: Patient was seen and discussed in rounds today. Records and plans were reviewed. He continues to be visible, endorsing depression and anxiety. Possibly being discharged tomorrow. Slept with trazodone. Continues to be disheveled. Eating and sleeping adequately. No SI. No behavioral Review of Systems Review of Systems Yes all other systems are reviewed and are negative Mental Status Exam Mental Status Exam Narrative: In today's visit he is alert, oriented and pleasant. Soft-spoken, slow speech. No eye contact. Affect is appropriate, depressed. No signs of psychosis. No response to internal stimuli. No delusions. No active SI. Cognitively has slow thought processes. Moves all limbs. No gait abnormalities. Judgment is fair. Diagnostics Vital Signs (24Hr): Vital Signs - 24 hr 07/03/25 20:00 07/04/25 08:00 Temperature 98.1 F 98.1 F Pulse Rate 74 60 Respiratory Rate 16 18 Blood Pressure 118/73 110/59 L Pulse Oximetry 100 98 Oxygen Delivery Method Room Air Room Air BMI result Body Mass Index 34.4 Labs 06/25/25 14:36 07/04/25 07:30 Labs: Laboratory Results - last 48 hr 07/04/25 07:30 BUN 26 H Creatinine 1.14 Estim Creat Clear Calc 93.9 Estimated GFR > 60 [place] 0.59 L Medications Medications Current Medications Acetaminophen (Acetaminophen 325 Mg Tablet) 650 mg PO Q6H PRN PRN Reason: Headache/Pain, Scale 1-10 Al Hydroxide/Mg Hydroxide (Magnesium Hydrox/Alum Hydrox 30 Ml Oral.Susp) 30 ml PO Q6H PRN PRN Reason: Heartburn/Nausea Aspirin (Aspirin Enteric Coated 81 Mg Tablet.) 81 mg PO DAILY [facility] Last Admin: 07/04/25 09:46 Dose: 81 mg Atorvastatin Calcium (Atorvastatin Calcium 20 Mg Tablet) 20 mg PO BEDTIME [facility] Last Admin: 07/03/25 20:24 Dose: 20 mg Bupropion HCl (Bupropion Hcl 100 Mg Tablet) 100 mg PO BID [facility] Last Admin: 07/04/25 09:47 Dose: 100 mg Bupropion HCl (Bupropion Hcl 75 Mg Tablet) 37.5 mg PO DAILY [facility] Last Admin: 07/04/25 09:47 Dose: 37.5 mg Hydroxyzine HCl (Hydroxyzine Hcl 25 Mg Tablet) 25 mg PO Q6H PRN PRN Reason: mild anxiety [place] Carbonate ([place] Carbonate 300 Mg Capsule) 300 mg PO TID [facility] Last Admin: 07/04/25 09:46 Dose: 300 mg Lorazepam (Lorazepam 1 Mg Tablet) 2 mg PO BID [facility] Last Admin: 07/04/25 09:46 Dose: 2 mg Magnesium Hydroxide (Milk Of Magnesia 30 Ml Oral.Susp) 30 ml PO DAILY PRN PRN Reason: Constipation Nicotine Polacrilex (Nicotine Polacrilex 2 Mg Gum) 2 mg BUCCAL Q2H PRN PRN Reason: Nicotine Cravings Trazodone HCl (Trazodone Hcl 50 Mg Tablet) 50 mg PO BEDTIME MRX1 PRN PRN Reason: Insomnia Last Admin: 07/03/25 20:24 Dose: 50 mg Allergies Allergies Allergy/AdvReac Type Severity Reaction Status Date / Time pumpkin Allergy Unknown Unknown Verified 06/25/25 14:15 Assessment & Plan Assessment & Plan (1) Bipolar I disorder with depression, severe: Status: Acute Code(s): F31.4 - Bipolar disorder, current episode depressed, severe, without psychotic features (2) CKD (chronic kidney disease): Qualifiers: Chronic kidney disease stage: stage 3 (moderate) Chronic kidney disease stage 3 subtype: stage 3a (GFR 45-59) Qualified Code(s): N18.31 - Chronic kidney disease, stage 3a Status: Acute Code(s): N18.9 - Chronic kidney disease, unspecified Assessment and Plan: Creatinine on 06/28 wnl at 1.3 Plan Mr. Cote is a 49 yo SWM with h/o bipolar d/o, ELISABETH and multiple inpatient psychiatric [place] [facility] previous h/o morbid obesity and LUIS-- both resolved s/p gastric sleeve surgery, CKD, HLD and CVA without residual deficits who was brought [place] [facility] [place] after endorsing SI at the [facility] and asking to speak w/ Crisis. Pt endorses severe depression and anxiety. He was started on lithium 300 mg bid. Will check level tomorrow am. He completed 13 ECTs (mostly bitemporal) between Apr and 05/12/25 during his M3 admission with some improvement in his mood/affect from tx 9-11 per my review of his chart. Plan: Admit to M3 for safety and stabilization Legal status- CV 15 min safety checks milieu therapy Labs reviewed. creatinine 1.3. Ordered lithium level for tomorrow am Admission medical H&P to be completed by hospitalist Will continue home meds for now. Added prn trazodone for insomnia and Vistaril prn for anxiety Consider re-starting ECT 06/29: Pt's mood and overall functioning has improved compared to last admission. Major stressor leading to this admission seems to be missing his am 2 mg lorazepam x 2 days since [facility] wasn't able to arrive to dispense the med prior to pt attending PHP. Reviewed lithium level- 0.55 mmol/L. Pt is agreeable w/ plan to titrate lithium to optimize tx of depression. Received 300 mg this am, add 600 mg tonight and switch to 900 mg ER at hs starting tomorrow night. 06/30: [place] level, BUN & creatinine ordered for [place], 07/04. Will send scripts to [facility] when pt is discharged, per [facility] request. Continue current tx plan. Potential d/c on Sunday 07/01: Mood is improving. Denies SI. Continue current tx plan 07/02: Pt endorses anhedonia, feeling 'listless' but his overall functioning, mood and range of affect have improved. Will titrate bupropion IR by 37.5 mg tomorrow (100 mg in am, 37.5 mg at 3 pm, 100 mg at hs) to optimize tx of depression. Reviewed increased risk of seizures w/ combination of bupropion + lithium. Will switch lithium back to IR dosing to improve absorption since pt is s/p gastric sleeve. [place] level, bun/cr ordered for Sun am. 07/03Continue current regimen and plans 07/04:Continue current regimen and plans Reason for continued inpatient stay Substantial Risk for: med/psych decompensation Time Spent With Patient Time: Total time managing care of this patient today ____ minutes.
[2025-07-04 19:05] VITALS: BP 123/65; PULSE 82; RESP 16; TEMP 36.6; O2SAT 100
[2025-07-05 07:48] VITALS: BP 99/57; PULSE 68; RESP 20; TEMP 36.2; O2SAT 97
[2025-07-05] MEDS: Aspirin Enteric Coated 81 MG TABLET.DR PO (08:31)
--- NOTE | 2025-07-10 15:45 | P.DS_ITS ---
DS: Providers Provider Date of admission: 06/28/25 12:26 Primary care physician: Humaira Delgado APRN DS: Diagnosis Discharge Diagnosis (1) Bipolar I disorder with depression, severe: Status: Acute (2) CKD (chronic kidney disease): Status: Acute DS: Medications Discharge Medications Home Medications: Home Medications ?Medication ?Instructions ?Recorded ?Confirmed lorazepam 2 mg tablet 2 mg PO BID 06/25/25 5 Previous Rx's ?Medication ?Instructions ?Recorded aspirin 81 mg tablet,delayed 81 mg PO DAILY 30 days #3 0 tabs 05/25/25 release atorvastatin 20 mg tablet 20 mg PO BEDTIME 30 days #30 tabs 05/25/25 bupropion HCl 100 mg tablet 100 mg PO BID 30 days #60 tabs 07/05/25 bupropion HCl 75 mg tablet 37.5 mg (1/2 x 75 mg) PO DA RAMSES 30 07/05/25 days #15 tabs lithium carbonate 300 mg capsule 300 mg PO TID 30 days #90 caps 07/05/25 trazodone 50 mg tablet 50 mg PO BEDTIME MRX1 PRN In somnia 07/05/25 30 days #60 tabs Data Data Completed and Pending Completed studies during hospitalization [Text1]: 07/04/25 07:30 BUN 26 H Creatinine 1.14 Estim Creat Clear Calc 93.9 Estimated GFR > 60 [place] 0.59 L DS: Summary Time Spent with Patient Time attestation: Total time managing care of this patient today ____ minutes. Discharge Plan Discharge Anticipated Discharge Date/Time: 07/05/25 10:39 Patient Disposition: [facility] Discharge Diagnosis: Bipolar I disorder, MRE depressed, severe, without psych osis Generalized anxiety disorder Referrals: [facility] [Other] - 07/12/25 1:00 pm Referral Note: reassessment on 07/12 at 1pm Michael Machado (therapy) [Other] - 07/07/25 1:00 pm Humaira Delgado APRN [Primary Care Provider, Internal Medicine] - 07/06/25 3:30 pm Referral Note: 07-02-25 Your primary care provider advised you have an appt scheduled for 07-06-25 @ 3:30pm Discharge Medications: New bupropion HCl 100 mg Tablet 100 mg PO BID 30 Days Qty: 60 0RF Rx Instructions: Take at 9:00 am and 7 pm bupropion HCl 75 mg Tablet 37.5 mg PO DAILY 30 Days Qty: 15 0RF Rx Instructions: Take at 1:00 pm lithium carbonate 300 mg Capsule 300 mg PO TID 30 Days Qty: 90 0RF trazodone 50 mg Tablet 50 mg PO BEDTIME MRX1 PRN (Reason: Insomnia) 30 Days Qty: 60 0RF Continued atorvastatin 20 mg tablet 20 mg PO BEDTIME 30 Days Qty: 30 0RF aspirin 81 mg tablet,delayed release (DR/EC) 81 mg PO DAILY 30 Days Qty: 30 0RF lorazepam 2 mg Tablet 2 mg PO BID Discontinued bupropion HCl 100 mg Tablet 100 mg PO BID@0900,1700 30 Days Qty: 60 0RF lithium carbonate 300 mg Tablet 300 mg PO BID Discharge Orders: Discharge Order (Routine); Ordered 07/05/25 Ordered By: Debora Stallings Diet: Regular diet Activity on Discharge: No Restrictions Stand Alone Forms: Patient Portal Discharge page, Community Support Print Language: Lithuanian Care Plan Goals: Maintain safe behaviors Practice coping skills Take medications as prescribed Maintain regular follow-ups with your outpatient providers Health Concerns: CKD 07/04/25 labs: BUN 26, Creatinine 1.14 [place] level on 07/04/25- 0.59 mmol/L Plan of Treatment: Follow up with your psychiatric provider, PCP and other outpatient providers Take your medication as prescribed Assessment: Risk assessment at the time of discharge: Patient was interviewed on the day of discharge and found to be fully oriented, without any SI or violent ideation. Pt has improved insight and judgment and plans to continue treatment Pt is not currently at high risk of harm to self or others and has a safety plan that includes presenting to the closest ER or calling 911 if feeling unsafe. Pt has been observed closely by unit staff and has not engaged in any behaviors that suggest dangerous to self or others and has demonstrated appropriate bheaviors and impulse control. Discharge Date/Time: 07/05/25 12:09
--- NOTE | 2025-07-10 15:47 | HO.PSYCHPN ---
Subjective Subjective Date of Service: 05/18/25 Reason For Visit: Depression SI Diagnostics Vital Signs (24Hr): BMI result Body Mass Index 34.4 Labs 06/25/25 14:36 07/04/25 07:30 Medications Allergies Allergies Allergy/AdvReac Type Severity Reaction Status Date / Time pumpkin Allergy Unknown Unknown Verified 06/25/25 14:15 Assessment & Plan Assessment & Plan (1) Bipolar I disorder with depression, severe: Status: Acute Code(s): F31.4 - Bipolar disorder, current episode depressed, severe, without psychotic features (2) CKD (chronic kidney disease): Qualifiers: Chronic kidney disease stage: stage 3 (moderate) Chronic kidney disease stage 3 subtype: stage 3a (GFR 45-59) Qualified Code(s): N18.31 - Chronic kidney disease, stage 3a Status: Acute Code(s): N18.9 - Chronic kidney disease, unspecified Assessment and Plan: Creatinine on 06/28 wnl at 1.3 Plan Mr. Cote is a 49 yo SWM with h/o bipolar d/o, ELISABETH and multiple inpatient psychiatric admissions (most recently at [facility] [place] from 03/27-05/25/25), previous h/o morbid obesity and LUIS-- both resolved s/p gastric sleeve surgery, CKD, HLD and CVA without residual deficits who was brought to the [facility] ED after endorsing SI at the [facility] and asking to speak w/ Crisis. Pt endorses severe depression and anxiety. He was started on lithium 300 mg bid. Will check level tomorrow am. He completed 13 ECTs (mostly bitemporal) between Apr and 05/12/25 during his M3 admission with some improvement in his mood/affect from tx 9-11 per my review of his chart. Plan: Admit to M3 for safety and stabilization Legal status- CV 15 min safety checks milieu therapy Labs reviewed. creatinine 1.3. Ordered lithium level for tomorrow am Admission medical H&P to be completed by hospitalist Will continue home meds for now. Added prn trazodone for insomnia and Vistaril prn for anxiety Consider re-starting ECT 06/29: Pt's mood and overall functioning has improved compared to last admission. Major stressor leading to this admission seems to be missing his am 2 mg lorazepam x 2 days since [facility] wasn't able to arrive to dispense the med prior to pt attending PHP. Reviewed lithium level- 0.55 mmol/L. Pt is agreeable w/ plan to titrate lithium to optimize tx of depression. Received 300 mg this am, add 600 mg tonight and switch to 900 mg ER at hs starting tomorrow night. 06/30: [employer] level, BUN & creatinine ordered for [place], 07/04. Will send scripts to [facility] when pt is discharged, per [facility] request. Continue current tx plan. Potential d/c on Sunday 07/01: Mood is improving. Denies SI. Continue current tx plan 07/02: Pt endorses anhedonia, feeling 'listless' but his overall functioning, mood and range of affect have improved. Will titrate bupropion IR by 37.5 mg tomorrow (100 mg in am, 37.5 mg at 3 pm, 100 mg at hs) to optimize tx of depression. Reviewed increased risk of seizures w/ combination of bupropion + lithium. Will switch lithium back to IR dosing to improve absorption since pt is s/p gastric sleeve. [employer] level, bun/cr ordered for Sun am. 07/03Continue current regimen and plans 07/04:Continue current regimen and plans Time Spent With Patient Time: Total time managing care of this patient today ____ minutes.
--- NOTE | 2025-07-27 16:45 | P.DS_ITS ---
DS: Providers Provider Date of admission: 06/28/25 12:26 Primary care physician: Humaira Delgado APRN DS: Diagnosis Discharge Diagnosis (1) Bipolar I disorder with depression, severe: Status: Acute (2) CKD (chronic kidney disease): Status: Acute DS: Medications Discharge Medications Home Medications: Home Medications ?Medication ?Instructions ?Recorded ?Confirmed bupropion HCl 100 mg tablet 100 mg PO DAILY 07/13/25 1 09/13/24 lithium carbonate 300 mg capsule 600 mg PO BID 5 07/13/25 Previous Rx's ?Medication ?Instructions ?Recorded aspirin 81 mg tablet,delayed 81 mg PO DAILY 30 days #3 0 tabs 05/25/25 release atorvastatin 20 mg tablet 20 mg PO BEDTIME 30 days #30 tabs 05/25/25 bupropion HCl 75 mg tablet 37.5 mg (1/2 x 75 mg) PO DA RAMSES 30 07/05/25 days #15 tabs trazodone 50 mg tablet 50 mg PO BEDTIME MRX1 PRN In somnia 07/05/25 30 days #60 tabs lorazepam 2 mg tablet 2 mg PO BID PRN Anxiety #10 tabs 07/26/25 DS: Summary Hospital Course Hospital Course: Patient: Kamar Cote MR#: [id number] : 1975 Acct:[id number] Age/Sex: 49 / M ADM Date: 03/26/25 Loc: [id number] [id number] Date of Discharge: 05/25/[address]: Debora Stallings MD cc: Sonja Velasco MD; Debora Stallings MD~ DS: Providers Provider Date of Service: 05/25/25 Date of admission: 03/26/25 20:25 Date of discharge: 05/25/25 Primary care physician: Sonja Velasco MD Attending physician on admission: Jake Thomas Consults: 04/06/25 13:12 Consult to Hospitalist Routine Comment: Consulting Provider: [facility] Reason For Exam: preop eval ect Consult to Psychiatry Routine Consulting Provider: [facility] Psych Covering Reason for consultation: ECT Has provider been notified: Yes 04/07/25 16:45 Consult to Neurology Routine Consulting Provider: [facility] Reason for consultation: hx cva reported ? frontal temp changes see ct Has provider been notified: No 05/03/25 08:51 Consult to Nephrology Routine Consulting Provider: [facility] Reason for consultation: midline needed, GFR 54. IR wants consult with renal. Has provider been notified: No Attending physician on discharge: Debora Stallings DS: Diagnosis Discharge Diagnosis (1) Bipolar I disorder with depression, severe: Status: Acute DS: Medications Discharge Medications Home Medications: Home Medications ?Medication ?Instructions ?Recorded ?Confirmed lorazepam 2 mg tablet 2 mg PO BID 06/25/25 06/25/25 Previous Rx's ?Medication ?Instructions ?Recorded aspirin 81 mg tablet,delayed 81 mg PO DAILY 30 days #30 tabs 05/25/25 release atorvastatin 20 mg tablet 20 mg PO BEDTIME 30 days #30 tabs bupropion HCl 100 mg tablet 100 mg PO BID 30 days #60 tabs 07/05/25 bupropion HCl 75 mg tablet 37.5 mg (1/2 x 75 mg) PO DAILY 30 days #15 tabs lithium carbonate 300 mg capsule 300 mg PO TID 30 days #90 caps 07/05/25 trazodone 50 mg tablet 50 mg PO BEDTIME MRX1 PRN Insomnia 07/05 30 days #60 tabs Mental Status Exam Mental Status Exam Narrative: Appearance: Disheveled. Good eye contact Attitude: Cooperative Speech: limited speech, otherwise wnl Motor activity: Calm and without any tics, tremors or dyskinesias. Mood: depressed and anxious but a little better overall Affect: blunted Thought process: goal directed Thought content: Denies SI, violent ideation Perception: Denies AHVH. Does not appear to respond to internal stimuli Insight: fair Judgment: fair Data Imaging Diagnostic Imaging Impressions Head CT 04/06/25 13:54 IMPRESSION: No acute intracranial hemorrhage. Bifrontal bitemporal lobes atrophy. Electronically signed by: Roque Guillen MD 04/06/2025 02:15 PM EDT DS: Summary Hospital Course Hospital Course: Per psych admission note from admitting psychiatrist: per [facility] crisis asmita[facility], [facility] the request of staff due to concerns about his inability to care for himself due to depression. staff reported multiple hospitalizations spring 2024, most recently having been discharged from [facility] 03/25/[facility]. staff reported pt was recently hospitalized due to failure to thrive, having stopped eating. he was also recently referred to [facility] ED for dehydration due to not drinking. staff at [facility] reported pt has not been engaging in ADLs, which they attribute to depression. he was referred to the ED for evaluation. [facility] test lead noted pt re ported he is facing eviction from his room at [facility] assisted due to non-payment of rent. on interview with on [facility], pt reports he has just been taking latuda 120 mg daily recently as far as psych meds go. he feels it has been somewhat helpful, but clearly inadequately so on its own. R/B of various augmentation strategies discussed and pt agrees to trial of wellbutrin. serotonergic medications discouraged due to bipolar Dx. pt denies trials on lithium or stimulants. also reports h/o ECT but believes it was not helpful for him; details unclear. he is able to identify as target Sx amotivation and anergia. Initial tx plan: Feels latuda 120 has been helpful. however, remains depressed. add wellbutrin XL 150 daily for depression, plan to increase to 300 mg daily in 3 days. may also consider ECT due to lack of improvement despite numerous recent hospitalizations + lethality of suicide attempts + recent self-abnegating behaviors. 03/29/25: Slept well, no issues with appetite. Observed out on the unit, attended groups, engaging. Reports depression and 8/10, denies anxiety. Constricted affect, congruent with mood. Denies safety concerns. Compliant with medications. Denies side effects from Wellbutrin. Continue to encourage groups. 03/30/25: Reports depressed but no anxiety, flat affect, depressed, but cooperative during one-to-one assessment. He is receptive with the plan of Wellbutrin increased up to 300 mg for depression. Reports passive SI, denies plan or intention. Increase Wellbutrin XL to 300 mg daily for depression. He reported that he has bipolar type II. 04/01/25: Patient slept for 8 hours, poor meal intake yesterday but was medication compliant. Denies side effects. When asked about if he has poor appetite as he ate only 50 of breakfast, and 25 for lunch and not eating dinner, he said because I did not do the menu, so I got what I do not like . Covering psychiatrist discussed prior med trials with pt- Per his report, has been trying so many antidepressants they just do not work, and continued to be depressed. Some of them are Zoloft, Paxil, Effexor, Celexa, Prozac, Cymbalta, Lexapro. He also having history of taking Zyprexa more than 20 years ago due to hearing voices. Then the voices was calm. He never has a take it again after. History of Abilify but not sure if it is working as he can not recall. Regarding ADLs: He said that he had food at the assisted twice a day, but he is not showering for many days despite the fact that staff asked him to do so I just do not care about being clean . Reports very low energy, low motivation, been increased suicidal thoughts and depression. He used to love music and reading but not interested in doing anything like that anymore. Reported that he had gastric sleeve surgery back in August 2023 which he lost 230 lb. He weight 447 lb prior to the surgery. He identified that after the surgery he has been more depressed slowly over months. There was a time that he wanted to starve myself so I can . He also identified that he feel more depressed after surgery as he is not able to over eating like he did before. History of ECTs: Reports he had history of ECTs in 2010 when he was at in [facility].He felt worse after the treatment everything seems like a dream . He clarified that immediately after the treatment he feel that way which could be a side effects of ECT but not permanent. Educate patient on possible side effects ECTs. Patient denies having seizure during ECTs treatment, no seizure history no cardiac conditions/disease history. Reports history of hypertension, but not anymore. He also has been admitted to different hospitals for psychiatric admissions in the past couple of months. Reports staying at [facility] in December for a month. New hospital in the area names [facility] in October for another month. 04/05/25: report anxiety a 2-3/10 but still 8/10 for depression. He agrees to get Wellbutrin up to 450mg daily for depression. Isolative in room, staring up to the ceiling. Discuss with patient of option to start on Intuniv for severe depression. Patient declines it at this current time but agree to see Welbutrin increased would be helpful. He agrees with ECT. W/U prior to ECT: Head CT scan negative, EKG normal sinus rhythm, Incomplete right bundle branch block. Borderline ECG_ no change when compare to previous EKG. Unremarkable CBC with diff. Pt was medically cleared to undergo ECT 04/07/25: He is flat, low energy, low motivation, withdrawal, in room mostly, but come out to other rooms to talk to the providers 04/08/25: He will start ECT on Saturday. Per Dr. Ward's recommendations- Latuda tapered from 120 to 100, start 50 mg modafinil to help with severe depression. Continued to reports moderate to severe depression. Denies suicidal thoughts or hallucinations. per neurology note who saw patient today for ECT clearance He has diffuse cerebral central and cortical atrophy for his age, which could happened from excessive exposure to alcohol or drugs but also from genetic reasons. He denied any significant or excessive drug exposure. I do not find any focal lesion, acute or chronic, suggestive of stroke. There was no contraindication to cecilia tment with ECT. Otherwise treatment of this condition is supportive, symptomatic and conservative 04/14: Started ECT 04/16: completed ECT #2 without incident. No changein presentation 04/19: completed ECT #3 today. no change in presentation, no change in mood 04/20: mood starting to improve. laughed, affect brighter and more flexible. 04/21: ECT #4 04/23/2025: ECT #5 - bilateral. Patient with markedly poor ADLs almost catatonic like allowing himself to be covered in feces not showering or caring for himself. Change ECT to 0.25 would follow-up on response to bilateral treatment if to withdrawn would may be secondary to bilateral and might consider return to right unilateral. Wellbutrin lowered to 300 mg modafinil was started at 100 mg can consider increase to 150 mg targeting apathy lethargy. Patient started on lorazepam 1 mg p.o. t.i.d. had test doses and seemed significantly improved with more fluid speech and increase range of affect hold lorazepam night prior to ECT 04/26: in bed after ECT. flat, withdrawn, slowed, soft. states his mood remains the same as before, no better and no worse. agreeable to increase modafanil to 150 mg. no apparent cognitive or memory deficits. 04/27: perhaps less slowed than recently. 04/28: faster and more flexible affect. feels he is improving. decrease ativan from 1 mg TID to 0.5 mg TID. otherwise continue current mgmt. 04/30: ECT today uneventful. increase modafanil to 200 tomorrow. DC ativan after saturday morning dose. ECT saturday. 05/03: ECT #9 completed uneventfully this morning. mood remains improved but pt still spending much of the day in bed with depressive facies. 05/05: poorer hygiene, not showering. reporting mood trending down again. 05/06: reports he showered and mood somewhat improved. amenable to increase modafanil to 300 mg as of tomorrow. 05/07: ECT #10 completed. mood trending better, more expressive. c 05/08: mood improved, affective range improved. 05/09: mood remains improved, affect brighter. 05/10: ECT #11 completed. Mood continues to improve. Will continue current med regimen/tx plan for now. 05/12: Per this telegraphic typewriter repairer's discussion with pt and tx team-minimal benefit w/ 12 ECT tx. Will hold off on further ECT for now and taper off Latuda due to lack of significant benefit. 05/13: Pt seems to have regressed somewhat based on his self-report and my review of his chart. 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 Untreated sleep apnea is less likely to contribute to pt's presentation based on sleep study from Mar 2025 following signifiant [facility] s/p gastric sleeve. Per [facility] neuro consult notes, pt has had memory impairment since the CVA in 2019. 05/14: Pt is visible in milieu this am. Switched to bupropion IR this am. Will d/c Latuda 20 mg due to minimal benefit at max dose. 05/17/25: Pt remains signif depressed. affect is a bit more reactive than t/w's last encounter with him on 05/14. Will titrate bupropion IR from 75 mg bid to 100 mg bid. Per my discussion w/ Dr. Ward, pt had responded positively to lorazepam earlier in his admission. Will start on .5 mg tid for now. 05/19/25: Pt notes improvement in mood, denies SI. Continue currnt med regimen/tx plan 05/20/25: Pt again reports improved mood, denies SI. 05/25/25: Pt felt to be around his baseline- eating well. Poor hygiene, which pt reports is a chronic issue. Denies active SI and denies violent ideation, AH/VH. He feels safe w/ plan to d/c back to his assisted and will attend [facility] PHP intake. Status at Discharge Functional status at discharge: independent ambulation Overall status at discharge: patient is progressing back to baseline Time Spent with Patient Time attestation: Total time managing care of this patient today ____ minutes. Time spent: Less than 30 minutes Discharge Plan Discharge Anticipated Discharge Date/Time: 05/25/25 10:15 Patient Disposition: Jail Discharge Diagnosis: Bipolar Disorder, Unspecified Referrals: Stacy Meng (psychiatry) [Other] - 05/26/25 11:00 am Referral Note: in person Humaira White APRN [Nurse Practitioner, Internal Medicine] - 06/28/25 10:45 am Referral Note: 05-25-25 your follow up appt with your primary care provider is 06-28-25 @ 10:45am Discharge Medications: Continued atorvastatin 20 mg tablet 20 mg PO BEDTIME 30 Days Qty: 30 0RF aspirin 81 mg tablet,delayed release (DR/EC) 81 mg PO DAILY 30 Days Qty: 30 0RF Discontinued lurasidone [Latuda] 120 mg tablet 120 mg PO DAILY@1700 30 Days Qty: 30 0RF Rx Instructions: must administer with food (at least 350 calories) No Action lorazepam 2 mg Tablet 2 mg PO BID bupropion HCl 100 mg Tablet 100 mg PO BID 30 Days Qty: 60 0RF Rx Instructions: Take at 9:00 am and 7 pm bupropion HCl 75 mg Tablet 37.5 mg PO DAILY 30 Days Qty: 15 0RF Rx Instructions: Take at 1:00 pm lithium carbonate 300 mg Capsule 300 mg PO TID 30 Days Qty: 90 0RF trazodone 50 mg Tablet 50 mg PO BEDTIME MRX1 PRN (Reason: Insomnia) 30 Days Qty: 60 0RF Discharge Orders: Discharge Order (Routine); Ordered 05/25/25 Ordered By: Debora Stallings Diet: Regular diet Activity on Discharge: No Restrictions Stand Alone Forms: Patient Portal Discharge page, Community Support Print Language: Montserratian Care Plan Goals: Continue taking your medication as prescribed Health Concerns: Depression Plan of Treatment: Follow up with your psychiatric provider, PCP and other outpatient providers Take your medication as prescribed Assessment: Risk assessment at the time of discharge: Patient was interviewed on the day of discharge and found to be fully oriented. He endorsed passive SI, without any plan or intent. Denied violent ideation. Pt has improved insight and judgment and plans to continue treatment Pt is not at imminent risk of harm to self or others and has a safety plan that includes presenting to the closest ER or calling 911 if feeling unsafe. Pt has been observed closely by unit staff and has not engaged in any behaviors that suggest dangerous to self or others and has demonstrated appropriate bheaviors and impulse control. Discharge Date/Time: 05/25/25 11:22 Time Spent with Patient Time attestation: Total time managing care of this patient today ____ minutes. Discharge Plan Discharge Anticipated Discharge Date/Time: 07/05/25 10:39 Patient Disposition: Jail Discharge Diagnosis: Bipolar I disorder, MRE depressed, severe, without psychosis Generalized anxiety disorder Referrals: [facility] [Other] - 07/12/25 1:00 pm Referral Note: reassessment on 07/12 at 1pm Michael Machado (therapy) [Other] - 07/07/25 1:00 pm Humaira Delgado APRN [Primary Care Provider, Internal Medicine] - 07/06/25 3:30 pm Referral Note: 07-02-25 Your primary care provider advised you have an appt scheduled for 07-06-25 @ 3:30pm Discharge Medications: New bupropion HCl 75 mg Tablet 37.5 mg PO DAILY 30 Days Qty: 15 0RF Rx Instructions: Take with 100 mg tab daily. trazodone 50 mg Tablet 50 mg PO BEDTIME MRX1 PRN (Reason: Insomnia) 30 Days Qty: 60 0RF Continued atorvastatin 20 mg tablet 20 mg PO BEDTIME 30 Days Qty: 30 0RF aspirin 81 mg tablet,delayed release (DR/EC) 81 mg PO DAILY 30 Days Qty: 30 0RF Discontinued bupropion HCl 100 mg Tablet 100 mg PO BID@0900,1700 30 Days Qty: 60 0RF lithium carbonate 300 mg Tablet 300 mg PO BID No Action bupropion HCl 100 mg tablet 100 mg PO DAILY Rx Instructions: Take with 37.5 mg daily. lithium carbonate 300 mg capsule 600 mg PO BID lorazepam 2 mg Tablet 2 mg PO BID PRN (Reason: Anxiety) Qty: 10 0RF Discharge Orders: Discharge Order (Routine); Ordered 07/05/25 Ordered By: Debora Stallings Diet: Regular diet Activity on Discharge: No Restrictions Stand Alone Forms: Patient Portal Discharge page, Community Support Print Language: [place]at[place] Care Plan Goals: Maintain safe behaviors Practice coping skills Take medications as prescribed Maintain regular follow-ups with your outpatient providers Health Concerns: CKD 07/04/25 labs: BUN 26, Creatinine 1.14 [place] level on 07/04/25- 0.59 mmol/L Plan of Treatment: Follow up with your psychiatric provider, PCP and other outpatient providers Take your medication as prescribed Assessment: Risk assessment at the time of discharge: Patient was interviewed on the day of discharge and found to be fully oriented, without any SI or violent ideation. Pt has improved insight and judgment and plans to continue treatment Pt is not currently at high risk of harm to self or others and has a safety plan that includes presenting to the closest ER or calling 911 if feeling unsafe. Pt has been observed closely by unit staff and has not engaged in any behaviors that suggest dangerous to self or others and has demonstrated appropriate bheaviors and impulse control. Discharge Date/Time: 07/05/25 12:09
== END 2025-07-05 12:09 | disposition home or self-care (01) | DRG 753 ==
LOC: HO.ED 15:12 → HO.PADLT16 06-28 12:50
PROVIDERS: Registered Nurse Emergency; Admitting Provider Psychiatry & Neurology Psychiatry; Emergency Provider Emergency Medicine; PCP Nurse Practitioner; Visit Provider Psychiatry & Neurology Psychiatry
DX: F31.4 Bipolar disorder, current episode depressed, severe, without psychotic features (principal); E78.5 Hyperlipidemia, unspecified; N18.31 Chronic kidney disease, stage 3a; Z20.822 Contact with and (suspected) exposure to COVID-19; Z23 Encounter for immunization; Z79.82 Long term (current) use of aspirin; Z98.84 Bariatric surgery status; Z91.51 Personal history of suicidal behavior; Z59.01 Sheltered homelessness; Z86.73 Personal history of transient ischemic attack (TIA), and cerebral infarction without residual deficits; Z87.891 Personal history of nicotine dependence; Z79.899 Other long term (current) drug therapy
CPT/HCPCS: 36415; 80053; 80178; 80307; 81003; 82565; 84520; 85025; 87637; 90656; 93005; 99285; S9485

== ENCOUNTER → 2025-06-28 08:25 | Outpatient (BNV) | payer MEDICAID, SELFPAY | PROVIDERS: Admitting Provider Psychiatry & Neurology Psychiatry; Emergency Provider Emergency Medicine; PCP Nurse Practitioner; Visit Provider Internal Medicine | DX: I45.10 Unspecified right bundle-branch block (principal) | CPT/HCPCS: 93010 ==

== ENCOUNTER → 2025-06-28 12:26 | Outpatient (BNV) | payer OTHER, SELFPAY | PROVIDERS: Admitting Provider Psychiatry & Neurology Psychiatry; Emergency Provider Emergency Medicine; PCP Nurse Practitioner; Visit Provider Psychiatry & Neurology Psychiatry | DX: F31.4 Bipolar disorder, current episode depressed, severe, without psychotic features (principal); N18.31 Chronic kidney disease, stage 3a | CPT/HCPCS: 99231 ==

== ENCOUNTER → 2025-06-28 12:26 | Outpatient (BNV) | payer MEDICAID, SELFPAY | PROVIDERS: Admitting Provider Psychiatry & Neurology Psychiatry; Emergency Provider Emergency Medicine; PCP Nurse Practitioner; Visit Provider Nurse Practitioner Family | DX: I10 Essential (primary) hypertension (principal) | CPT/HCPCS: 99221 ==

== ENCOUNTER 2025-07-26 11:00 | Outpatient (RCR) | payer OTHER, SELFPAY ==
[2025-07-13 09:31] VITALS: BMI 36.0
[2025-07-13 09:32] VITALS: BP 92/62; PULSE 80; TEMP 37.1
--- NOTE | 2025-07-13 10:14 | PC.ADMIT ---
Patient is a 49 year old single male who was referred [place] [facility] for the [place] time from inpatient LOC where patient was admitted from 06/28-07/05/25 secondary to increased depression with SI and increased anxiety. Patient is struggling with homelessness. Patient recently attended PHP for one day on 06/25/25 and requested to see crisis secondary to increased SI. According to medical records patient has a history of many inpatient LOC. He has a history of bipolar disorder and ELISABETH. Patient reports to this junior technical writer that he is currently being evicted from his current living situation which is causing him much stress. He reports he does not have a move out date at this time. He also stated he has financial issues. Patient stated his goal of treatment is to learn coping skills. Patient is alert and oriented x4. He is calm and cooperative. He presented with depressed mood, flat affect. He denied SI, no HI. He was given a copy of his safety plan if needed. Medications updated with patient and patient's discharge paperwork from [facility] behavioral health unit. Patient reports he has a VNA who helps him with his medications. I spoke to patient's VNA Phillip from [facility] to confirm Kamar's medication list as patient reports he had some medication changes made from his outside provider since he was discharged from inpatient LOC. Phillip stated that patient's lithium is now 600 mg BID and Wellbutrin is 137.5 mg daily in the morning. No other medication changes were made.
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
--- NOTE | 2025-07-15 15:28 | HO.PHP ---
Clients case was opened and reviewed in teams.
--- NOTE | 2025-07-26 22:39 | HO.PHPPROGNO ---
Subjective Subjective Date of Service: 07/26/25 Reason For Visit: depression Interim History: Patient seen for follow-up, anticipating discharge at the end of program today.? Feeling better than before. Says it's even just helpful being around others and getting the support. Reports no acute issues or concerns. Medication compliant, medications well-tolerated. Denies any adverse effects.? Mood is residually low but improved and stable.? Denies any hopelessness or SI. Denies thoughts of harming self or others at this time. Denies any aggressive ideation or HI. Denies any paranoia or AH or VH. Sleep, appetite, energy improving. Medication Compliance: Yes Side effects from medications: No Attending Groups: Yes Review of Systems Acute medical concerns: No Mental Status Exam Mental Status Exam Narrative: Alert, oriented, in no acute distress. Calm, cooperative. Mood less depressed, affect appropriate. Speech normal. Thought process linear, coherent, more goal-directed. Thought content related to stressors, future-oriented, denies any helplessness, hopelessness or SI.? No aggressive ideation or HI. No paranoia or delusional content elicited. No evidence of psychosis. Insight and judgment fair-good. Diagnostics Vital Signs (24Hr): BMI result Body Mass Index 36.0 Assessment & Plan Assessment & Plan (1) Bipolar I disorder with depression, severe: Status: Acute Code(s): F31.4 - Bipolar disorder, current episode depressed, severe, without psychotic features Plan Discharge from [facility] Continue regular medications? Refills sent to pharmacy Will defer further medication management to outpatient provider *Safety plan reviewed *Discharge diagnoses, treatment course, discharge plan have been reviewed with patient (including medication regime, medication management, potential side effects) as well as treatment rationale were also revisited *Discharge paperwork signed and given to patient, copy sent for scanning to chart Patient educated on: diagnosis and medication risk/benefits Informed Consent: understands Reason for contiued partial hosp. stay Substantial Risk for: stable for discharge Certification I certify that partial hospital treatment is medically necessary due to the symptoms and problems resulting from the patient's mental illness and the failure to treat the patient at the partial hospital level of care would likely result in the patient requiring inpatient psychiatric care which could not be prevented at a less intensive level of care. Total time managing care of this patient today __30__ minutes. Discharge Plan Discharge Attending provider: Breana Chance Medications: Continued atorvastatin 20 mg tablet 20 mg PO BEDTIME 30 Days Qty: 30 0RF aspirin 81 mg tablet,delayed release (DR/EC) 81 mg PO DAILY 30 Days Qty: 30 0RF bupropion HCl 100 mg tablet 100 mg PO DAILY Rx Instructions: Take with 37.5 mg daily. lithium carbonate 300 mg capsule 600 mg PO BID bupropion HCl 75 mg Tablet 37.5 mg PO DAILY 30 Days Qty: 15 0RF Rx Instructions: Take with 100 mg tab daily. trazodone 50 mg Tablet 50 mg PO BEDTIME MRX1 PRN (Reason: Insomnia) 30 Days Qty: 60 0RF Changed lorazepam 2 mg Tablet 2 mg PO BID PRN (Reason: Anxiety) Qty: 10 0RF Stand Alone Forms: Patient Portal Discharge page Patient Education: Bipolar Disorder (ED), Bipolar Disorder (DC), Anxiety (ED) Print Language: Persian
== END 2025-07-26 23:59 | disposition home or self-care (01) ==
LOC: HO.PHPA 11:00
PROVIDERS: Visit Provider Psychiatry & Neurology Psychiatry
DX: F31.4 Bipolar disorder, current episode depressed, severe, without psychotic features (principal); Z91.51 Personal history of suicidal behavior
CPT/HCPCS: 90791; 90853

== ENCOUNTER → 2025-07-26 11:00 | Outpatient (BNV) | payer OTHER, SELFPAY | PROVIDERS: Visit Provider Psychiatry & Neurology Psychiatry | DX: F31.4 Bipolar disorder, current episode depressed, severe, without psychotic features (principal) | CPT/HCPCS: 99499 ==